=== PATIENT | male | born 1955 | race Caucasian/White ===

== ENCOUNTER 2016-11-04 19:50 | Inpatient (IN) ==
[2016-11-04] MEDS ORDERED: Tdap (ADACEL) Vaccine 0.5 ML IM ONE (20:06)
[2016-11-04] MEDS ORDERED: *HR* OxyCODONE/APAP 5/325 TABLET PO ONE (20:08)
--- NOTE | 2016-11-04 20:09 | Emergency Department Note ---
Disposition Clinical Impression: Right foot infection Disposition: Admitted As Inpatient Condition: Good Referrals: NO,PCP [Non-Partnered Physician] - Forms: Work/School Release, ED Satisfaction Letter Time of Disposition: 21:38 Chest Pain HPI - General Chief Complaint: ED General Medical Stated Complaint: L Rib Pain Time Seen by Provider: 11/04/16 19:52 Source: patient, EMS Mode of arrival: ambulatory Limitations: no limitations Vital Signs Reviewed: Yes Nursing Notes Reviewed: Yes - History of Present Illness HPI Narrative: 61-year-old male with history of diabetes presents with 1 day of left chest wall pain that is worse with motion and palpation of the chest. This is associated with nausea without vomiting, and chills. He states that he ran out of his Percocet yesterday so he has been unable to take that for the pain. He denies any shortness of breath or exertional symptoms. He denies any pleuritic chest pain. He denies any headache, altered mental status, neck pain or stiffness. He does admit to chronic back pain that is poorly controlled at this time due to not having his oxycodone. Severity scale (1-10): 10 - Related Data Home Medications Medication Instructions Recorded Confirmed RX: Aspirin [Adult Low Dose 81 mg PO DAILY 12/11/15 08/05/16 Aspirin EC] RX: Budesonide/Formoterol 160/4.5 2 puff IH BIDR 12/11/15 08/05/16 [Symbicort 160/4.5] RX: Citalopram Hydrobromide 20 mg PO DAILY 12/11/15 08/05/16 [Celexa] RX: Enalapril Maleate [Vasotec] 10 mg PO QPM 12/11/15 08/05/16 RX: Enalapril Maleate [Vasotec] 20 mg PO QAM 12/11/15 08/05/16 RX: Ergocalciferol (VITAMIN D2) 50,000 unit PO QWEEK 12/11/15 08/05/16 [Vitamin D2 (50,000 UNIT)] RX: Furosemide [Lasix] 40 mg PO DAILY 12/11/15 08/05/16 RX: Gabapentin [Neurontin] 600 mg PO TID 12/11/15 08/05/16 RX: Hydrochlorothiazide 25 mg PO DAILY 12/11/15 08/05/16 RX: Hydroxyzine HCl 50 mg PO BID 12/11/15 08/05/16 RX: Insulin ASPART [Novolog] 36 - 38 unit SQ TIDWM 12/11/15 08/05/16 RX: Insulin Glargine,Hum.rec.anlog 80 unit SQ BID 12/11/15 08/05/16 [Lantus Solostar] RX: Meclizine [Antivert] 25 mg PO BID PRN 12/11/15 08/05/16 RX: [place]-3/Dha/Epa/Fish Oil [Fish 1,000 mg PO BID 12/11/15 08/05/[address] 500 mg Softgel] RX: Omeprazole [PriLOSEC] 20 mg PO BIDAC 12/11/15 08/05/16 RX: Ropinirole [Requip] 1 mg PO HS 12/11/15 08/05/16 RX: Rosuvastatin [Crestor] 40 mg PO DAILY 12/11/15 08/05/16 RX: SitaGLIPtin [Januvia] 100 mg PO DAILY 12/11/15 08/05/16 RX: Tiotropium [Spiriva] 18 mcg IH DAILY 12/11/15 08/05/16 RX: Trazodone HCl [TraZODone] 100 mg PO HS 12/11/15 08/05/16 Previous Rx's Medication Instructions Recorded RX: Albuterol Neb [Proventil Neb] 2.5 mg IH Q2H PRN #0 inhsol 12/15/15 RX: Carvedilol [Coreg] 12.5 mg PO BIDWM #0 12/15/15 RX: Oxycodone HCl/Acetaminophen 1 tab PO Q4H PRN #20 tablet 12/15/15 [Percocet 10-325 mg Tablet] RX: Cyclobenzaprine [Flexeril] 10 mg PO TID #14 tablet 03/25/16 RX: Amlodipine [Norvasc] 5 mg PO DAILY #30 tablet 08/08/16 RX: PredniSONE 40 mg PO DAILY #8 tablet 08/08/16 Allergies Allergy/AdvReac Type Severity Reaction Status Date / Time acetaminophen Allergy Hives Verified 12/11/15 11:46 [From Hailee-N] ibuprofen Allergy Hives Verified 12/11/15 11:46 propoxyphene Allergy Hives Verified 12/11/15 11:46 [From Darvocet-N] tramadol [From Ultram] Allergy Hives Verified 12/11/15 11:46 All systems ED: reviewed and negative except as stated. Chest Pain PMH - Past Medical History Medical history: Reports: arthritis, COPD, diabetes, GERD, hyperlipidemia, hypertension, osteoporosis, renal disease, syncope, other Surgical history: Reports: cataract, LE stent(s), orthopedic, other, other Psychiatric history: Reports: anxiety, depression - Social History Smoking Status: Current every day smoker Alcohol use: Reports: none Drug use: Reports: none Physical Exam - Head Head exam: atraumatic, normocephalic, normal inspection - Eye Eye exam: Present: normal appearance, PERRL, EOMI - ENT ENT exam: normal exam, normal oropharynx, mucous membranes moist - Neck Neck exam: Present: normal inspection, full ROM, trachea midline - Chest Flexion is normal without signs of trauma or rash. Pain is reproducible with palpation of the left chest wall. - Respiratory Respiratory exam: Clear to auscultation bilaterally without wheezes rales or rhonchi Cardiovascular Cardiovascular exam: Present: regular rate, normal rhythm, normal heart sounds - Abdominal Exam Abdominal exam: Present: soft, Non-Tender. Absent: tenderness, distention, guarding, rebound, rigidity - Extremities Exam Extremities exam: Present: normal inspection, full ROM. No edema. - Back Exam Back exam: Present: normal inspection, full ROM. Absent: tenderness, CVA tenderness (R), CVA tenderness (L) - Neurological Exam Neurological exam: Present: alert, oriented X3, CN II-XII intact - Psychiatric Psychiatric exam: Present: normal affect, normal mood - Skin Skin exam: Present: warm, dry, intact, normal color - General Limitations: no limitations General appearance: alert, in distress Course - Reevaluation(s) Reevaluation #1: On reevaluation, the patient is feeling much better. His nausea has resolved. His pain is nearly resolved. At this time, I exposed his right foot which has a chronic diabetic foot ulcer which is foul-smelling and has purulent drainage. I will obtain an x-ray. Time: 21:34 Reevaluation #2: Accepted by Dr. Parekh. X ray, CRP, ESR pending. Time: 21:43 Vital Signs Temperature 98.6 F 11/04/16 19:52 Pulse Rate 89 11/04/16 19:52 Respiratory Rate 22 11/04/16 19:52 Blood Pressure 154/93 11/04/16 19:52 O2 Sat by Pulse Oximetry 100 11/04/16 19:52 Temperature 98.6 F 11/04/16 19:52 Pulse Rate 92 11/04/16 20:31 Respiratory Rate 18 11/04/16 20:31 Blood Pressure 165/95 11/04/16 20:31 O2 Sat by Pulse Oximetry 98 11/04/16 20:31 Oxygen Delivery Oxygen Delivery Room Air Chest Pain - Lab Data Result diagrams: 11/04/16 20:21 11/04/16 20:21 Lab Results 11/04/16 11/04/16 11/04/16 Range/Units 20:21 20:21 20:21 WBC 17.0 H (4.3-11.1) K/mcL RBC 3.55 L (4.19-5.50) M/mcL Hgb 9.6 L (12.9-16.9) g/dL Hct 28.6 L (37.5-50.1) % MCV 80.6 L (83.0-100.0) fL MCH 27.0 L (28.0-33.3) pg MCHC 33.6 (31.6-35.5) g/dL RDW 13.9 (11.5-14.5) % Plt Count 949 H (140-400) K/mcL MPV 8.8 L (9.4-12.4) fL Immature Gran % 1.5 (0-4) % Seg Neutrophils % 77.7 % Lymphocytes % 10.8 % Monocytes % 6.7 % Eosinophils % 2.8 % Basophils % 0.5 % Neutrophils # 13.2 H (1.6-8.9) K/mcL Lymphocytes # 1.8 (0.6-4.6) K/mcL Monocytes # 1.1 (0.0-1.3) K/mcL Eosinophils # 0.5 (0.0-0.6) K/mcL Basophils # 0.1 (0.0-0.2) K/mcL Platelet Estimate Marked Increase H (Normal) Immature Plt Fraction 1.7 (1.1-6.1) % Sodium 133 L (136-145) mEq/L Potassium 4.3 (3.5-4.5) mEq/L Chloride 98 (98-109) mEq/L Carbon Dioxide 22 (19-29) mEq/L BUN 20 (8-26) mg/dL Creatinine 1.63 H (0.72-1.25) mg/dL Est GFR ( Amer) 52 L (> 60) Est GFR (Non-Af Amer) 43 L (> 60) BUN/Creatinine Ratio 12 (6-26) Glucose 272 H (70-99) mg/dL Calculated Osmolality 288 (280-300) Calcium 9.0 (8.6-10.8) mg/dL Troponin I 0.00 (0-0.03) ng/mL
--- NOTE | 2016-11-04 20:10 | Emergency Department Note ---
START Narrative - START START: I examined this patient and my medical decision-making was reviewed with the SALESPERSON WIGS/PA/Advanced Practice Nurse/Resident Physician. I agree with the documented findings, disposition and treatment plan as described except to the extent set forth below. ED attending note: I saw this Patient with the emergency medicine resident Dr. Quiroz. Please see a copy of his note for details of the H&P, evaluation, management and disposition of this emergency Department patient. We independently had [id number] contact with the patient. Briefly: A 61-year-old insulin-dependent diabetic normal and OxyContin for his chronic low back pain when out 2 days ago. Normally follows up with Dr. Avitia. Complaints of left-sided rib pain atraumatic has a reddened finger on the left hand that he scratched open days ago. Afebrile stable vital signs in moderate discomfort. Patient worked up for finger infection and possible cardiac chest pain etiology. Provided 35 minutes critical care services to this patient. Labs and imaging pending. Disposition pending.
[2016-11-04 20:36] LABS: Basophils # 0.1 K/mcL (0.0-0.2); Basophils % 0.5 %; Eosinophils # 0.5 K/mcL (0.0-0.6); Eosinophils % 2.8 %; Hematocrit 28.6 % (37.5-50.1); Hemoglobin 9.6 g/dL (12.9-16.9); Immature Granulocytes % 1.5 % (0-4); Immature Platelets 1.7 % (1.1-6.1); Lymphocytes # 1.8 K/mcL (0.6-4.6); Lymphocytes % 10.8 %; Mean Corpuscular HGB Conc 33.6 g/dL (31.6-35.5); Mean Corpuscular Volume 80.6 fL (83.0-100.0); Mean Platelet Volume 8.8 fL (9.4-12.4); Monocytes # 1.1 K/mcL (0.0-1.3); Monocytes % 6.7 %; Neutrophils # 13.2 K/mcL (1.6-8.9); Platelet Count 949 K/mcL (140-400); Red Blood Count 3.55 M/mcL (4.19-5.50); Red Cell Distribution Width 13.9 % (11.5-14.5); Segmented Neutrophils % 77.7 %
[2016-11-04 20:49] LABS: Potassium 4.3 mEq/L (3.5-4.5)
[2016-11-04 20:53] LABS: Platelet Estimate Marked Increase (Normal)
[2016-11-04] MEDS ORDERED: Piperacillin/Tazobactam 4.5 GM in D5% in Water (Mini-Bag+) 100 ML IVPB ONE (21:34)
[2016-11-04] MEDS ORDERED: Vancomycin 1,500 MG in D5% in Water 250 ML IVPB SCH (22:00)
--- NOTE | 2016-11-04 23:49 | Internal Med History&Physical ---
Date of Encounter: 11/05/16 Time of Encounter: 23:30 Assessment and Plan (1) Right foot infection Current visit: Yes Status: Acute Patient has extensive history of diabetic neuropathy with history of uncontrolled DM. He states that he has not checked his blood sugars in about a week. Patient has a history of non compliance with going to Podiatry appointments. He states he had an appointment with Dr. Pace on Saturday which he missed. Has history of right third toe amputation. Patient's right fifth metatarsal is erythematous, swollen, has foul odor, and painful to pressure. Patient's right foot xray showed large soft tissue defect adjacent tot he fifth metatarsophalangeal joint, osteomyelitis cannot be ruled out. Consult to podiatry for recommendations- patient NPO Patient does not currently appear septic- continue to monitor. Check lactate with am labs Blood cultures x2 collected. IV fluids Empiric coverage with vancomycin and zosyn. pain control (2) Rib pain on left side Current visit: Yes Status: Acute Patient is on pain medications at home for chronic back pain. He reports left lower rib pain that is tender to palpation with guarding. CXR showed no acute focal or bony abnormality. Continue to monitor. Pain control. (3) Reactive thrombocytosis Current visit: Yes Status: Acute Patient's baseline platelet count is normal. Today, it was measured at 949 Etiology unclear at this time, but likely reactive thrombocytosis secondary to toe infection. Patient currently does not meet sepsis criteria. Will check lactate with am labs. (4) DANY (acute kidney injury) Current visit: No Status: Acute Patient likely has diabetic nephropathy. His baseline Cr is about 1.6 IVF hold lasix, HCTZ, Enalapril Avoid nephrotoxic agents. Continue to monitor. (5) Poorly controlled diabetes mellitus Current visit: No Status: Chronic Patient counseled on importance of lifestyle modification and diabetes control. Consult to metal flooring installer. Hold oral meds. NPO in case of surgery tomorrow. Medium dose sliding scale insulin with Q4HR accuchecks. (6) Diabetic peripheral neuropathy Current visit: No Status: Chronic Plan as above. Consult to podiatry. (7) Obesity (BMI 30.0-34.9) Current visit: No Status: Chronic consult to metal flooring installer Plan as above. (8) Tobacco abuse Current visit: No Status: Chronic Nicotine patch PRN. Patient counseled on importance of smoking cessation. (9) DVT prophylaxis Current visit: No Status: Acute Heparin 5,000 units SQ Q12HR Internal Medicine - H&P: HPI Chief complaint: left lower rib pain Admitted From: Home Plans for Post Hospital Care: Home History of present illness: Mr. Regalado is a 61 year old male with PMHx of HTN, Hep C, DM, HLD, depression, diabetic neuropathy, chronic back pain. He came to the emergency department with CC of left lower rib pain. When asked if the patient fell or had any recent injuries, he states "I don't know." Patient has a history of diabetes with diabetic neuropathy. He states he usually checks his sugars about three times a day, but has not checked them in the past week. He does not appear to be compliant with his diabetes management. Patient normally sees Dr. Pace for his foot ulcers. He has a history of a right third metatarsal amputation. He has a right 5th metatarsal ulcer with swelling and erythema. Patient had an appointment to see Dr. Pace this past Saturday, but did not go to his appointment because he could not get a ride. He states that he was supposed to be evaluated for right foot surgery at this appointment as well. Patient had one episode of non bloody emesis that was yellow. He denies currently being nauseous. Denies Chest pain, SOB, denies syncope. Social Hx: lives with niece and nephew. Has smoked about 1PPD for the past 50 years. Drinks occasionally, denies illicit drug use. Family Hx: Mom at 66 from [place], dad at 70 from [place]. Past Med Surg Social Fam HX - Past Medical History Medical history: arthritis, COPD, diabetes, GERD, hyperlipidemia, hypertension, osteoporosis, renal disease, syncope, other Psychiatric history: anxiety, depression - Past Surgical History Surgical History: cataract, LE stent(s), orthopedic, other, other - Social History Smoking Status: Current every day smoker Smokeless Tobacco Status: No Alcohol use: none Drug use: none - Family History Mother Living Status: Hx Family Cardiac Disorders: Yes (htn) Hx Family Respiratory Disorders: No Hx Family Cancer: Yes Hx Family Endocrine Disorder: Yes (dm) Father Living Status: Internal Medicine - H&P: Meds Aspirin [Adult Low Dose Aspirin EC] 81 mg PO DAILY 12/11/15 [History] Budesonide/Formoterol 160/4.5 [Symbicort 160/4.5] 2 puff IH BIDR 12/11/15 [ History] Citalopram Hydrobromide [Celexa] 20 mg PO DAILY 12/11/15 [History] Enalapril Maleate [Vasotec] 10 mg PO QPM 12/11/15 [History] Enalapril Maleate [Vasotec] 20 mg PO QAM 12/11/15 [History] Ergocalciferol (VITAMIN D2) [Vitamin D2 (50,000 UNIT)] 50,000 unit PO QWEEK 03/22 [History] Furosemide [Lasix] 40 mg PO DAILY 12/11/15 [History] Gabapentin [Neurontin] 600 mg PO TID 12/11/15 [History] Hydrochlorothiazide 25 mg PO DAILY 12/11/15 [History] Hydroxyzine HCl 50 mg PO BID 12/11/15 [History] Insulin ASPART [Novolog] 36 - 38 unit SQ TIDWM 12/11/15 [History] Insulin Glargine,Hum.rec.anlog [Lantus Solostar] 80 unit SQ BID 12/11/15 [ History] Meclizine [Antivert] 25 mg PO BID PRN 12/11/15 [History] [place]-3/Dha/Epa/Fish Oil [Fish Oil Dr 500 mg Softgel] 1,000 mg PO BID 12/11/15 [ History] Omeprazole [PriLOSEC] 20 mg PO BIDAC 12/11/15 [History] Ropinirole [Requip] 1 mg PO HS 12/11/15 [History] Rosuvastatin [Crestor] 40 mg PO DAILY 12/11/15 [History] SitaGLIPtin [Januvia] 100 mg PO DAILY 12/11/15 [History] Tiotropium [Spiriva] 18 mcg IH DAILY 12/11/15 [History] Trazodone HCl [TraZODone] 100 mg PO HS 12/11/15 [History] Albuterol Neb [Proventil Neb] 2.5 mg IH Q2H PRN #0 inhsol 12/15/15 [Rx] Carvedilol [Coreg] 12.5 mg PO BIDWM #0 12/15/15 [Rx] Oxycodone HCl/Acetaminophen [Percocet 10-325 mg Tablet] 1 tab PO Q4H PRN #20 tablet 12/15/15 [Rx] Cyclobenzaprine [Flexeril] 10 mg PO TID #14 tablet 03/25/16 [Rx] Amlodipine [Norvasc] 5 mg PO DAILY #30 tablet 08/08/16 [Rx] PredniSONE 40 mg PO DAILY #8 tablet 08/08/16 [Rx] Allergies acetaminophen [From Darvocet-N] Allergy (Verified 12/11/15 11:46) Hives ibuprofen Allergy (Verified 12/11/15 11:46) Hives propoxyphene [From Darvocet-N] Allergy (Verified 12/11/15 11:46) Hives tramadol [From Ultram] Allergy (Verified 12/11/15 11:46) Hives All Systems PM: A 10-system review of systems was performed and is negative for pertinent findings except as documented above in the HPI. - Constitutional Constitutional: no chills, no fatigue, no fever(s) - EENT Eyes: no blurry vision - Cardiovascular Cardiovascular ROS IM: no chest pain - Gastrointestinal Gastrointestinal: vomiting, no bloating, no change in bowel habits, no nausea - Genitourinary Genitourinary ROS male: no dysuria - Neurological Neurological ROS: no dizziness - Constitutional Vitals: Temp Pulse Resp BP Pulse Ox 98.6 F 76 16 132/69 94 L 11/04/16 19:52 11/04/16 23:08 11/04/16 23:08 11/04/16 23:08 11/04/16 23:08 General appearance: Present: disheveled, A&O X 3, obese - Head Head exam: Present: atraumatic, normocephalic - Neck Neck exam general surgery: Present: supple, trachea midline - Respiratory Respiratory exam: Present: CTAB. Absent: wheezes - Cardiovascular Cardiovascular exam: Present: RRR, +S1, +S2 - GI/Abdominal GI/Abdominal exam: Present: firm, normal bowel sounds, tenderness (tenderness to palpation in LLQ and LUQ), no peritoneal signs - Extremities Exam Extremities exam: Absent: cyanotic, pedal edema Additional comments: right third toe has been amputated. Right fifth toe is erythematous, swollen, peeling, with ulcer present. Pain with pressure. Left lateral foot is peeling, with ulcer present. Left third finger is swollen, red, non painful. - Neurological Exam Neurological exam: Present: alert, oriented X3 Internal Med - H&P Results - Labs CBC & Chem 7: 11/04/16 20:21 11/04/16 20:21 Labs: Short CBC 11/04/16 Range/Units 20:21 WBC 17.0 H (4.3-11.1) K/mcL Hgb 9.6 L (12.9-16.9) g/dL Hct 28.6 L (37.5-50.1) % Plt Count 949 H (140-400) K/mcL Neutrophils # 13.2 H (1.6-8.9) K/mcL BMP 11/04/16 20:21 Sodium 133 L Potassium 4.3 Chloride 98 Carbon Dioxide 22 BUN 20 Creatinine 1.63 H Glucose 272 H Calcium 9.0 Cardiac Enzymes 11/04/16 Range/Units 20:21 Troponin I 0.00 (0-0.03) ng/mL - Impressions ITS Impressions Chest X-Ray 11/04/16 20:07 IMPRESSION: Negative portable study. D/ / Tracy Hopkins Cha, MD / Tracy Hopkins Cha, MD Interpreting Provider: Tracy Hopkins Cha, MD Foot X-Ray 11/04/16 21:33 IMPRESSION: Soft tissue swelling surrounding the right great toe. No destructive right great toe process identified. Deformity of the distal 2nd metatarsal likely related to prior remote trauma. Large soft tissue defect of the left lateral distal foot at the level of the 5th metatarsophalangeal joint which demonstrates medial subluxation. There is cortical disruption suspected of the lateral cortex of the 5th metatarsal head. Correlation for fracture or osteomyelitis recommended. MRI may be helpful if indicated D/ / Tracy Hopkins Cha, MD / Tracy Hopkins Cha, MD Interpreting Provider: Tracy Hopkins Cha, MD
[2016-11-05] MEDS ORDERED: OxyCODONE CONC 5 MG/0.25 ML ORAL.SYG PO PRN (00:38)
[2016-11-05] MEDS ORDERED: Naloxone 0.4 MG/ML INJ IVP PRN (00:40)
[2016-11-05] MEDS ORDERED: Acetaminophen 325 MG TABLET PO PRN (00:40)
[2016-11-05] MEDS ORDERED: Ondansetron 4 MG/2 ML VIAL IVP PRN (00:40)
[2016-11-05] MEDS ORDERED: *HR* Dextrose 50 % in Water (Syg) 50 ML SYRINGE IVP PRN ×3 (00:57→06:23)
[2016-11-05] MEDS ORDERED: Dextrose Gel 15 GM PO PRN ×6 (00:57→06:23)
[2016-11-05] MEDS ORDERED: D5% in Water 1,000 ML IV PRN ×3 (00:57→06:23)
[2016-11-05] MEDS ORDERED: Vancomycin 1,750 MG in D5% in Water 250 ML IVPB SCH (01:00)
[2016-11-05] MEDS: *HR* Morphine 2 MG/ML SYRINGE IVP PRN ×3 (01:36→14:06)
[2016-11-05 01:54] LABS: Basophils # 0.1 K/mcL (0.0-0.2); Basophils % 0.5 %; Eosinophils # 0.5 K/mcL (0.0-0.6); Eosinophils % 3.3 %; Hematocrit 26.9 % (37.5-50.1); Hemoglobin 8.9 g/dL (12.9-16.9); Immature Granulocytes % 1.4 % (0-4); Immature Platelets 1.8 % (1.1-6.1); Lymphocytes # 2.3 K/mcL (0.6-4.6); Lymphocytes % 14.3 %; Mean Corpuscular HGB Conc 33.1 g/dL (31.6-35.5); Mean Corpuscular Hemoglobin 26.9 pg (28.0-33.3); Mean Corpuscular Volume 81.3 fL (83.0-100.0); Mean Platelet Volume 8.8 fL (9.4-12.4); Monocytes # 1.2 K/mcL (0.0-1.3); Monocytes % 7.5 %; Neutrophils # 11.9 K/mcL (1.6-8.9); Platelet Count 878 K/mcL (140-400); Red Blood Count 3.31 M/mcL (4.19-5.50); Red Cell Distribution Width 13.8 % (11.5-14.5)
[2016-11-05 02:06] LABS: Calcium 8.9 mg/dL (8.6-10.8); Potassium 3.9 mEq/L (3.5-4.5)
[2016-11-05] MEDS ORDERED: Insulin LISPRO 300 UNITS/3 ML VIAL SQ SCH (04:00)
[2016-11-05] MEDS: 0.9 % Sodium Chloride 1,000 ML IVC SCH ×2 (04:20→17:49)
[2016-11-05] MEDS: *HR* Heparin 5,000 UNIT/ML VIAL SQ SCH ×2 (05:25→16:59)
[2016-11-05] MEDS: Insulin LISPRO 300 UNITS/3 ML VIAL SQ SCH ×5 (07:39→23:51)
--- NOTE | 2016-11-05 07:45 | Podiatry Consult Note ---
Date of Encounter: 11/05/16 Time of Encounter: 07:00 Assessment and Plan (1) Osteomyelitis Current visit: Yes Status: Acute 1. Full thickness ulceration to right foot at 5th metatarsal head with positive to probe to bone consistent with osteomyelitis. WBC: 16.3, ESR: 86, CRP : 257, Temp: 100.5. 2. Dr. Pace to take patient to surgery later on today (11/05/16) for a debridement. 3. Keep patient NPO. 4. Agree with present antibiotic therapy. 5. ABIs ordred of BLE. Qualifiers: Osteomyelitis location: foot Laterality: right Chronicity: acute Qualified Code(s): M86.171 - Other acute osteomyelitis, right ankle and foot (2) Renal failure Current visit: No Status: Acute (3) Peripheral vascular disease due to secondary diabetes Current visit: No Status: Acute 1. Unable to to palpate pedal pulses. ABIs ordered and pending. Underwent revascularizaiton in [place] this past year. (4) Foot ulcer Current visit: No Status: Chronic 1. Sharp debridement of all hyperkeratotic tissue to 5th metatarsal head left foot plantar aspect, superficial ulceration no clinical evidence of infection. 2. Wound care orders to include cleansing ulcer of left foot daily with mild soap and water, pat dry, apply dry sterile 4x4 gauze with kerlix. Qualifiers: Laterality: right Non-pressure ulcer stage: with fat layer exposed Qualified Code(s): L97.512 - Non-pressure chronic ulcer of other part of right foot with fat layer exposed (5) Diabetes mellitus with neuropathy Current visit: Yes Status: Acute Qualifiers: Diabetes mellitus type: type 2 Diabetes mellitus retirement insulin use: unspecified retirement insulin use status Qualified Code(s): E11.40 - Type 2 diabetes mellitus with diabetic neuropathy, unspecified History of Present Illness HPI: Mr. Regalado is a 61 year old male admitted to [facility] on 11/05/16 for cellulitis of the right foot. Patient has a medical history significant for DM with neuropathy, COPD, GERD, hyperlipidemia, HTN, arthritis and renal disease. Patient states he has had an ulcer to the right foot for approximately 3 months now. He states he is being managed in wound care by Dr. Pace. He states he was in a cast every week for two months and was recently switched to twice weekly dressing changes in wound care. Patient states he had an appointment in wound care with Dr. Pace this last week but missed it. He states he was told there is a wound to his left foot, he is not sure when that started and did not know about it until his arrival to the hospital. Patient is neuropathic. He admits to nausea and states he has not been feeling well. He states he has left sided rib pain. Patient states he had toe #3 of the left foot amputated two years ago. Patient underwent revascularization in [place] this past year. Past Med Surg Social Fam HX - Past Medical History Medical history: arthritis, COPD, diabetes, GERD, hyperlipidemia, hypertension, osteoporosis, renal disease, syncope, other Psychiatric history: anxiety, depression - Past Surgical History Surgical History: cataract, LE stent(s), orthopedic, other, other - Social History Smoking Status: Current every day smoker Smokeless Tobacco Status: No Alcohol use: none Drug use: none - Family History Mother Living Status: Hx Family Cardiac Disorders: Yes (htn) Hx Family Respiratory Disorders: No Hx Family Cancer: Yes Hx Family Endocrine Disorder: Yes (dm) Hx Family Medical Disorders: Yes Father Living Status: Medications and Allergies Aspirin [Adult Low Dose Aspirin EC] 81 mg PO DAILY 12/11/15 [History] Budesonide/Formoterol 160/4.5 [Symbicort 160/4.5] 2 puff IH BIDR 12/11/15 [ History] Citalopram Hydrobromide [Celexa] 20 mg PO DAILY 12/11/15 [History] Enalapril Maleate [Vasotec] 10 mg PO QPM 12/11/15 [History] Enalapril Maleate [Vasotec] 20 mg PO QAM 12/11/15 [History] Ergocalciferol (VITAMIN D2) [Vitamin D2 (50,000 UNIT)] 50,000 unit PO QWEEK 03/22 [History] Furosemide [Lasix] 40 mg PO DAILY 12/11/15 [History] Gabapentin [Neurontin] 600 mg PO TID 12/11/15 [History] Hydrochlorothiazide 25 mg PO DAILY 12/11/15 [History] Hydroxyzine HCl 50 mg PO BID 12/11/15 [History] Insulin ASPART [Novolog] 36 - 38 unit SQ TIDWM 12/11/15 [History] Insulin Glargine,Hum.rec.anlog [Lantus Solostar] 80 unit SQ BID 12/11/15 [ History] Meclizine [Antivert] 25 mg PO BID PRN 12/11/15 [History] [place]-3/Dha/Epa/Fish Oil [Fish Oil Dr 500 mg Softgel] 1,000 mg PO BID 12/11/15 [ History] Omeprazole [PriLOSEC] 20 mg PO BIDAC 12/11/15 [History] Ropinirole [Requip] 1 mg PO HS 12/11/15 [History] Rosuvastatin [Crestor] 40 mg PO DAILY 12/11/15 [History] SitaGLIPtin [Januvia] 100 mg PO DAILY 12/11/15 [History] Tiotropium [Spiriva] 18 mcg IH DAILY 12/11/15 [History] Trazodone HCl [TraZODone] 100 mg PO HS 12/11/15 [History] Albuterol Neb [Proventil Neb] 2.5 mg IH Q2H PRN #0 inhsol 12/15/15 [Rx] Carvedilol [Coreg] 12.5 mg PO BIDWM #0 12/15/15 [Rx] Oxycodone HCl/Acetaminophen [Percocet 10-325 mg Tablet] 1 tab PO Q4H PRN #20 tablet 12/15/15 [Rx] Cyclobenzaprine [Flexeril] 10 mg PO TID #14 tablet 03/25/16 [Rx] Amlodipine [Norvasc] 5 mg PO DAILY #30 tablet 08/08/16 [Rx] PredniSONE 40 mg PO DAILY #8 tablet 08/08/16 [Rx] Allergies acetaminophen [From Darvocet-N] Allergy (Verified 12/11/15 11:46) Hives ibuprofen Allergy (Verified 12/11/15 11:46) Hives propoxyphene [From Darvocet-N] Allergy (Verified 12/11/15 11:46) Hives tramadol [From Ultram] Allergy (Verified 12/11/15 11:46) Hives All Systems Reviewed: A 10-system review of systems was performed and is negative for pertinent findings except as documented above in the HPI. Physical Exam - Constitutional Vitals: Temp Pulse Resp BP Pulse Ox 100.5 F H 82 20 136/70 96 11/05/16 06:34 11/05/16 06:34 11/05/16 06:34 11/05/16 06:34 11/05/16 06:34 Exam: General appearance: alert awake oriented X 3. Calm and pleasant, no acute distress.. Vascular: Pedal pulses 0/4 DP/PT , No evidence of cyanosis, pallor or rubor, Edema graded at 1+/4, Skin Temperature warm, No calf pain with manual compression. capillary refill time is immediate to digits. Neurologic: Sensation absent with light touch to both feet . Ulcer: 1. Full thickness ulcer to the right foot at the fifth metatarsal head plantar aspect measuring 1.8 cm in length by 3 cm is in width by 0.5 cm in depth, positive probe to bone with bone exposed, malodorous, periwound erythema extending to the dorsum midfoot. Necrotic skin to the dorsal aspect of toe #5 right foot and at the base of the fifth toe with erythema and edema. 2. Large hemorrhaged callus lesion to the left foot at the fifth metatarsal head plantar aspect. s/p sharp cutting with a #15 scalpel blade revealed a superficial ulceration measuring 1.8 cm in length x 1.8 cm in width. No probe to bone, no pus, no odor, no streaking, no fluctuance. Results - Labs Result Diagrams: 11/05/16 01:37 11/05/16 01:37 Labs: Abnormal lab results WBC 16.3 K/mcL (4.3-11.1) H 11/05/16 01:37 RBC 3.31 M/mcL (4.19-5.50) L 11/05/16 01:37 Hgb 8.9 g/dL (12.9-16.9) L 11/05/16 01:37 Hct 26.9 % (37.5-50.1) L 11/05/16 01:37 MCV 81.3 fL (83.0-100.0) L 11/05/16 01:37 MCH 26.9 pg (28.0-33.3) L 11/05/16 01:37 Plt Count 878 K/mcL (140-400) H 11/05/16 01:37 MPV 8.8 fL (9.4-12.4) L 11/05/16 01:37 Neutrophils # 11.9 K/mcL (1.6-8.9) H 11/05/16 01:37 Platelet Estimate Marked Increase (Normal) H 11/04/16 20:21 ESR 86 mm/hr (0-10) H 11/04/16 20:24 Sodium 134 mEq/L (136-145) L 11/05/16 01:37 Creatinine 1.99 mg/dL (0.72-1.25) H 11/05/16 01:37 Est GFR ( Amer) 42 (> 60) L 11/05/16 01:37 Est GFR (Non-Af Amer) 34 (> 60) L 11/05/16 01:37 Glucose 237 mg/dL (70-99) H 11/05/16 01:37 C-Reactive Protein 257 mg/L (Less than 5) H 11/04/16 20:21 All other labs normal. Consult Discharge Plan - Plan Referrals: Mark Coe MD [Primary Care Provider] -
[2016-11-05] MEDS: Nicotine 21 MG PATCH.TD24 TD SCH (08:55)
[2016-11-05] MEDS: Pantoprazole 40 MG VIAL IVP SCH (08:55)
[2016-11-05] MEDS: Piperacillin/Tazobactam 3.375 GM in D5% in Water (Mini-Bag+) 100 ML IVPB SCH ×3 (08:57→23:49)
[2016-11-05] MEDS: *HR* OxyCODONE Immed Rel 5 MG TABLET PO PRN ×2 (09:11→17:28)
[2016-11-05] MEDS ORDERED: Vancomycin 1,500 MG in D5% in Water 250 ML IVPB SCH (12:00)
[2016-11-05] MEDS: Vancomycin 1,500 MG in D5% in Water 250 ML IVPB SCH (12:13)
--- NOTE | 2016-11-05 12:28 | Orthopedic Consult Note ---
Date of Encounter: 11/06/16 Time of Encounter: 12:15 Assessment and Plan (1) Cellulitis of finger of left hand Current Visit: Yes Status: Acute Currently on vancomycin and zosyn for the feet osteomyelitis and podiatry taking patient to surgery today for wound debridements. Will continue these abx with watchful waiting for the finger. If does not improve with abx then will consider surgical intervention. Continue to keep wound clean and covered. Continue finger ROM. Continue elevation. Continue pain control per hospitalist. History of Present Illness Chief complaint: left long finger pain HPI: Mr. Regalado is a 61 year old male who was admitted for rib pain was also found to have diabetic foot wounds and left long finger infection. He states he noticed the finger to be red and swollen starting 2-3 days ago when he woke up like that. Denies any known injury or trauma to cause this. Denies any drainage from the finger. States this has not happened before to his fingers but he has known wounds to feet. He has uncontrolled diabetes and is not compliant with management. He is here for rib pain but denies chest pain, SOB, fevers. Past Med Surg Social Fam HX - Past Medical History Medical history: arthritis, COPD, diabetes, GERD, hyperlipidemia, hypertension, osteoporosis, renal disease, syncope, other Psychiatric history: anxiety, depression - Past Surgical History Surgical History: cataract, LE stent(s), orthopedic, other, other - Social History Smoking Status: Current every day smoker Smokeless Tobacco Status: No Alcohol use: none Drug use: none - Family History Mother Living Status: Hx Family Cardiac Disorders: Yes (htn) Hx Family Respiratory Disorders: No Hx Family Cancer: Yes Hx Family Endocrine Disorder: Yes (dm) Hx Family Medical Disorders: Yes Father Living Status: Medications and Allergies Aspirin [Adult Low Dose Aspirin EC] 81 mg PO DAILY 12/11/15 [History] Budesonide/Formoterol 160/4.5 [Symbicort 160/4.5] 2 puff IH BIDR 12/11/15 [ History] Citalopram Hydrobromide [Celexa] 20 mg PO DAILY 12/11/15 [History] Enalapril Maleate [Vasotec] 10 mg PO QPM 12/11/15 [History] Enalapril Maleate [Vasotec] 20 mg PO QAM 12/11/15 [History] Ergocalciferol (VITAMIN D2) [Vitamin D2 (50,000 UNIT)] 50,000 unit PO MÁRQUEZ [History] Furosemide [Lasix] 40 mg PO DAILY 12/11/15 [History] Gabapentin [Neurontin] 600 mg PO TID 12/11/15 [History] Hydrochlorothiazide 25 mg PO DAILY 12/11/15 [History] Hydroxyzine HCl 50 mg PO BID 12/11/15 [History] Insulin ASPART [Novolog] 36 - 38 unit SQ TIDWM 12/11/15 [History] Insulin Glargine,Hum.rec.anlog [Lantus Solostar] 80 unit SQ BID 12/11/15 [ History] Meclizine [Antivert] 25 mg PO BID PRN 12/11/15 [History] Omeprazole [PriLOSEC] 20 mg PO BIDAC 12/11/15 [History] Ropinirole [Requip] 1 mg PO HS 12/11/15 [History] Rosuvastatin [Crestor] 40 mg PO DAILY 12/11/15 [History] SitaGLIPtin [Januvia] 100 mg PO DAILY 12/11/15 [History] Tiotropium [Spiriva] 18 mcg IH DAILY 12/11/15 [History] Trazodone HCl [TraZODone] 100 mg PO HS 12/11/15 [History] Albuterol Neb [Proventil Neb] 2.5 mg IH Q2H PRN #0 inhsol 12/15/15 [Rx] Carvedilol [Coreg] 12.5 mg PO BIDWM #0 12/15/15 [Rx] Oxycodone HCl/Acetaminophen [Percocet 10-325 mg Tablet] 1 tab PO Q4H PRN #20 tablet 12/15/15 [Rx] Cyclobenzaprine [Flexeril] 10 mg PO TID #14 tablet 03/25/16 [Rx] Amlodipine [Norvasc] 5 mg PO DAILY #30 tablet 08/08/16 [Rx] PredniSONE 40 mg PO DAILY #8 tablet 08/08/16 [Rx] Allergies acetaminophen [From Darvocet-N] Allergy (Verified 12/11/15 11:46) Hives ibuprofen Allergy (Verified 12/11/15 11:46) Hives propoxyphene [From Darvocet-N] Allergy (Verified 12/11/15 11:46) Hives tramadol [From Ultram] Allergy (Verified 12/11/15 11:46) Hives All Systems Reviewed: A 10-system review of systems was performed and is negative for pertinent findings except as documented above in the HPI. - Constitutional Constitutional: as per HPI - Cardiovascular Cardiovascular: as per HPI - Respiratory Respiratory: as per HPI - Musculoskeletal Musculoskeletal: as per HPI Physical Exam - Constitutional Vitals: Temp Pulse Resp BP Pulse Ox 99.2 F 77 20 122/73 98 11/05/16 10:47 11/05/16 10:47 11/05/16 10:47 11/05/16 10:47 11/05/16 10:47 - Wrist & Hand left Location of pain: long finger (erythema to dorsal long finger with dry skin and scabbing noted to ulnar side of finger, swelling focused around PIPJ, no active drainage. no tenderness to palpation along tendon sheath. Unable to fully extend any of his fingers, flexion of LF to roughly 45 degrees. Noted to have Dupuytrens contracture cord to 4th and 5th digits limiting motion. NV intact with brisk cap refill. ) Results - Labs Result Diagrams: 11/06/16 04:53 11/06/16 05:57 Labs: Abnormal lab results WBC 16.3 K/mcL (4.3-11.1) H 11/05/16 01:37 RBC 3.31 M/mcL (4.19-5.50) L 11/05/16 01:37 Hgb 8.9 g/dL (12.9-16.9) L 11/05/16 01:37 Hct 26.9 % (37.5-50.1) L 11/05/16 01:37 MCV 81.3 fL (83.0-100.0) L 11/05/16 01:37 MCH 26.9 pg (28.0-33.3) L 11/05/16 01:37 Plt Count 878 K/mcL (140-400) H 11/05/16 01:37 MPV 8.8 fL (9.4-12.4) L 11/05/16 01:37 Neutrophils # 11.9 K/mcL (1.6-8.9) H 11/05/16 01:37 Platelet Estimate Marked Increase (Normal) H 11/04/16 20:21 ESR 86 mm/hr (0-10) H 11/04/16 20:24 Sodium 134 mEq/L (136-145) L 11/05/16 01:37 Creatinine 1.99 mg/dL (0.72-1.25) H 11/05/16 01:37 Est GFR ( Amer) 42 (> 60) L 11/05/16 01:37 Est GFR (Non-Af Amer) 34 (> 60) L 11/05/16 01:37 Glucose 237 mg/dL (70-99) H 11/05/16 01:37 POC Glucose 101 (58-89) H 11/05/16 07:03 C-Reactive Protein 257 mg/L (Less than 5) H 11/04/16 20:21 All other labs normal. - Diagnostic results Wrist/Hand x-ray: report reviewed, image reviewed Consult Discharge Plan - Plan Referrals: Mark Coe MD [Primary Care Provider] - - Attending Attestation Case and plan of care discussed with supervising physician who was available for all aspects of care.
--- NOTE | 2016-11-05 13:22 | Internal Med Progress Note ---
Date of Encounter: 11/05/16 Time of Encounter: 08:15 - Assessment and plan (1) Diabetic ulcer of both feet associated with type 2 diabetes mellitus Current Visit: Yes Status: Acute (2) Osteomyelitis Current Visit: Yes Status: Suspected Qualifiers: Osteomyelitis location: foot Laterality: right Chronicity: acute Qualified Code(s): M86.171 - Other acute osteomyelitis, right ankle and foot (3) Diabetes mellitus with neuropathy Current Visit: Yes Status: Chronic Qualifiers: Diabetes mellitus type: type 2 Diabetes mellitus custodial insulin use: with buttermaker use Qualified Code(s): E11.40 - Type 2 diabetes mellitus with diabetic neuropathy, unspecified; Z79.4 - skilled nursing (current) use of insulin (4) Peripheral vascular disease Current Visit: Yes Status: Chronic (5) CKD (chronic kidney disease) stage 3, GFR 30-59 ml/min Current Visit: Yes Status: Chronic (6) Cellulitis of finger of left hand Current Visit: Yes Status: Acute (7) COPD (chronic obstructive pulmonary disease) Current Visit: No Status: Chronic Qualifiers: COPD type: unspecified COPD Qualified Code(s): J44.9 - Chronic obstructive pulmonary disease, unspecified (8) Hypertension Current Visit: No Status: Chronic Qualifiers: Hypertension type: essential hypertension Qualified Code(s): I10 - Essential (primary) hypertension (9) Tobacco abuse Current Visit: No Status: Chronic - Subjective Interval history: Mr. Regalado is currently admitted for bilateral foot wound infections and cellulitis of L middle finger. He is high risk due to potential of worsening infection, need for IV abx and monitoring and uncontrolled DM Mr. Regalado is having a lot of pain in his L ribs from the fall last night. Feet wrapped in dressings. Podiatry debridement at bedside and plan for OR. Also has swelling and erythema of L middle finger. Denies injury. Pain meds somewhat helpful at this time. No GI symptoms. Hungry. - Constitutional Vitals: Temp Pulse Resp BP Pulse Ox 98.5 F 74 18 122/73 95 11/05/16 12:27 11/05/16 12:27 11/05/16 12:27 11/05/16 10:47 11/05/16 12:27 General appearance: Present: disheveled, A&O X 3, obese - Head Head exam: Present: normocephalic - Eye Eye exam: Present: conjuntiva pink - ENT ENT exam: Present: mucous membranes dry - Respiratory Respiratory exam: Present: decreased breath sounds, rhonchi - Cardiovascular Cardiovascular exam: Present: RRR. Absent: tachycardia - GI/Abdominal GI/Abdominal exam: Present: soft. Absent: tenderness - Extremities Exam Extremities exam: Present: warm Additional comments: Dressings on both feet. L middle finger with swelling and erythema. - Neurological Exam Neurological exam: Present: alert, oriented X3 - Skin Skin exam: Present: dry, warm Internal Medicine: Result - Labs CBC & Chem 7: 11/05/16 01:37 11/05/16 01:37 - Impressions Impressions Hand X-Ray 11/05/16 08:36 IMPRESSION: 1. Diffuse soft tissue swelling of 3rd digit without acute osseous abnormality. 2. Deformities of the 4th and 5th digits with persistent flexion of the PIP joints and hyperextension of the 4th DIP joint. 3. Questionable erosion at the DIP joint of the 2nd digit. D/ / 11/05/2016 09:20:02 Emelia Solis MD / adonis Interpreting Provider: Emelia Solis MD Consult Discharge Plan - Plan Referrals: Mark Coe MD [Primary Care Provider] -
[2016-11-05] MEDS ORDERED: Albuterol 2.5 MG/3 ML NEBULIZER IH PRN (15:03)
[2016-11-05] MEDS: Budesonide/Formoterol 160/4.5 MDI IH SCH ×2 (15:48→20:27)
--- NOTE | 2016-11-05 16:12 | Electrocardiograph Report ---
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
[2016-11-05] MEDS: Cholecalciferol (D-3) 1,000 UNIT TABLET PO SCH (17:00)
[2016-11-05] MEDS: Hydrocortisone Sodium Succ 100 MG/2 ML VIAL IVP SCH ×2 (17:22→23:50)
--- NOTE | 2016-11-05 18:36 | Anesthesia Evaluation PreOp ---
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 (Peripheral Neuropathy, Anxiety/deression) Other Medical History: Renal (A), Diabetes Type II, GERD, Other (Reactive Thrombocytosis) Alcohol Use: none Drug use: none Medications and Allergies Aspirin [Adult Low Dose Aspirin EC] 81 mg PO DAILY 12/11/15 [History] Budesonide/Formoterol 160/4.5 [Symbicort 160/4.5] 2 puff IH BIDR 12/11/15 [ History] Citalopram Hydrobromide [Celexa] 20 mg PO DAILY 12/11/15 [History] Enalapril Maleate [Vasotec] 10 mg PO QPM 12/11/15 [History] Enalapril Maleate [Vasotec] 20 mg PO QAM 12/11/15 [History] Ergocalciferol (VITAMIN D2) [Vitamin D2 (50,000 UNIT)] 50,000 unit PO MÁRQUEZ [History] Furosemide [Lasix] 40 mg PO DAILY 12/11/15 [History] Gabapentin [Neurontin] 600 mg PO TID 12/11/15 [History] Hydrochlorothiazide 25 mg PO DAILY 12/11/15 [History] Hydroxyzine HCl 50 mg PO BID 12/11/15 [History] Insulin ASPART [Novolog] 36 - 38 unit SQ TIDWM 12/11/15 [History] Insulin Glargine,Hum.rec.anlog [Lantus Solostar] 80 unit SQ BID 12/11/15 [ History] Meclizine [Antivert] 25 mg PO BID PRN 12/11/15 [History] Omeprazole [PriLOSEC] 20 mg PO BIDAC 12/11/15 [History] Ropinirole [Requip] 1 mg PO HS 12/11/15 [History] Rosuvastatin [Crestor] 40 mg PO DAILY 12/11/15 [History] SitaGLIPtin [Januvia] 100 mg PO DAILY 12/11/15 [History] Tiotropium [Spiriva] 18 mcg IH DAILY 12/11/15 [History] Trazodone HCl [TraZODone] 100 mg PO HS 12/11/15 [History] Albuterol Neb [Proventil Neb] 2.5 mg IH Q2H PRN #0 inhsol 12/15/15 [Rx] Carvedilol [Coreg] 12.5 mg PO BIDWM #0 12/15/15 [Rx] Oxycodone HCl/Acetaminophen [Percocet 10-325 mg Tablet] 1 tab PO Q4H PRN #20 tablet 12/15/15 [Rx] Cyclobenzaprine [Flexeril] 10 mg PO TID #14 tablet 03/25/16 [Rx] Amlodipine [Norvasc] 5 mg PO DAILY #30 tablet 08/08/16 [Rx] PredniSONE 40 mg PO DAILY #8 tablet 08/08/16 [Rx] Allergies acetaminophen [From Darvocet-N] Allergy (Verified 12/11/15 11:46) Hives ibuprofen Allergy (Verified 12/11/15 11:46) Hives propoxyphene [From Darvocet-N] Allergy (Verified 12/11/15 11:46) Hives tramadol [From Ultram] Allergy (Verified 12/11/15 11:46) Hives - Meds/Allergy Pre-op Review Medications Reviewed: Yes Allergies Reviewed: Yes Beta Blockers on Current Med List: Yes If Beta Blockers taken, Date/Time (Last Dose taken): 11/05/2016 @ 15:48 Anesthesia Results - Labs 11/05/16 01:37 11/05/16 01:37 - Imaging EKG: image reviewed (SR) Anesthesia Exam O2 Sat Height 1.8 m Weight 108.409 kg O2 Sat by Pulse Oximetry 95 O2 Sat by Pulse Oximetry 96 O2 Sat by Pulse Oximetry 95 O2 Sat by Pulse Oximetry 98 O2 Sat by Pulse Oximetry 96 O2 Sat by Pulse Oximetry 96 O2 Sat by Pulse Oximetry 94 O2 Sat by Pulse Oximetry 94 O2 Sat by Pulse Oximetry 93 O2 Sat by Pulse Oximetry 97 O2 Sat by Pulse Oximetry 98 O2 Sat by Pulse Oximetry 98 O2 Sat by Pulse Oximetry 100 Vital Signs Temp Pulse Resp BP Pulse Ox 98.6 F 89 22 154/93 100 11/04/16 19:52 11/04/16 19:52 11/04/16 19:52 11/04/16 19:52 11/04/16 19:52 Vital Signs/O2 Sat, Most Current Temp Pulse Resp BP Pulse Ox 98.2 F 72 16 146/71 95 11/05/16 15:41 11/05/16 15:41 11/05/16 15:48 11/05/16 15:48 11/05/16 15:48 Height: 5'11'' Weight: 239# NPO (# of Hours): > 8 hrs Pain Scale: 0 Pain Scale Used: Numeric (1 - 10) <Laney Cage - Last Filed: 11/06/16 02:15> Date of Encounter: 11/06/16 Anesthesia Results - Labs 11/05/16 01:37 11/05/16 01:37 Laboratory Results WBC 16.3 K/mcL (4.3-11.1) H 11/05/16 01:37 RBC 3.31 M/mcL (4.19-5.50) L 11/05/16 01:37 Hgb 8.9 g/dL (12.9-16.9) L 11/05/16 01:37 Hct 26.9 % (37.5-50.1) L 11/05/16 01:37 MCV 81.3 fL (83.0-100.0) L 11/05/16 01:37 MCH 26.9 pg (28.0-33.3) L 11/05/16 01:37 MCHC 33.1 g/dL (31.6-35.5) 11/05/16 01:37 RDW 13.8 % (11.5-14.5) 11/05/16 01:37 Plt Count 878 K/mcL (140-400) H 11/05/16 01:37 MPV 8.8 fL (9.4-12.4) L 11/05/16 01:37 Immature Gran % 1.4 % (0-4) 11/05/16 01:37 Seg Neutrophils % 73.0 % 11/05/16 01:37 Lymphocytes % 14.3 % 11/05/16 01:37 Monocytes % 7.5 % 11/05/16 01:37 Eosinophils % 3.3 % 11/05/16 01:37 Basophils % 0.5 % 11/05/16 01:37 Neutrophils # 11.9 K/mcL (1.6-8.9) H 11/05/16 01:37 Lymphocytes # 2.3 K/mcL (0.6-4.6) 11/05/16 01:37 Monocytes # 1.2 K/mcL (0.0-1.3) 11/05/16 01:37 Eosinophils # 0.5 K/mcL (0.0-0.6) 11/05/16 01:37 Basophils # 0.1 K/mcL (0.0-0.2) 11/05/16 01:37 Platelet Estimate Marked Increase (Normal) H 11/04/16 20:21 Immature Plt Fraction 1.8 % (1.1-6.1) 11/05/16 01:37 ESR 86 mm/hr (0-10) H 11/04/16 20:24 Sodium 134 mEq/L (136-145) L 11/05/16 01:37 Potassium 3.9 mEq/L (3.5-4.5) 11/05/16 01:37 Chloride 98 mEq/L (98-109) 11/05/16 01:37 Carbon Dioxide 23 mEq/L (19-29) 11/05/16 01:37 BUN 23 mg/dL (8-26) 11/05/16 01:37 Creatinine 1.99 mg/dL (0.72-1.25) H 11/05/16 01:37 Est GFR ( Amer) 42 (> 60) L 11/05/16 01:37 Est GFR (Non-Af Amer) 34 (> 60) L 11/05/16 01:37 BUN/Creatinine Ratio 12 (6-26) 11/05/16 01:37 Glucose 237 mg/dL (70-99) H 11/05/16 01:37 POC Glucose 203 (58-89) H 11/05/16 20:06 Calculated Osmolality 289 (280-300) 11/05/16 01:37 Lactic Acid 1.1 mmol/L (0.5-2.2) 11/05/16 01:43 Calcium 8.9 mg/dL (8.6-10.8) 11/05/16 01:37 Troponin I 0.00 ng/mL (0-0.03) 11/04/16 20:21 C-Reactive Protein 257 mg/L (Less than 5) H 11/04/16 20:21 Impressions Chest X-Ray 11/04/16 20:07 IMPRESSION: Negative portable study. D/ / Tracy Hopkins Cha, MD / Tracy Hopkins Cha, MD Interpreting Provider: Tracy Hopkins Cha, MD Foot X-Ray 11/04/16 21:33 IMPRESSION: Soft tissue swelling surrounding the right great toe. No destructive right great toe process identified. Deformity of the distal 2nd metatarsal likely related to prior remote trauma. Large soft tissue defect of the left lateral distal foot at the level of the 5th metatarsophalangeal joint which demonstrates medial subluxation. There is cortical disruption suspected of the lateral cortex of the 5th metatarsal head. Correlation for fracture or osteomyelitis recommended. MRI may be helpful if indicated D/ / Tracy Hopkins Cha, MD / Tracy Hopkins Cha, MD Interpreting Provider: Tracy Hopkins Cha, MD Hand X-Ray 11/05/16 08:36 IMPRESSION: 1. Diffuse soft tissue swelling of 3rd digit without acute osseous abnormality. 2. Deformities of the 4th and 5th digits with persistent flexion of the PIP joints and hyperextension of the 4th DIP joint. 3. Questionable erosion at the DIP joint of the 2nd digit. D/ / 11/05/2016 09:20:02 Emelia Solis MD / adonis Interpreting Provider: Emelia Solis MD Anesthesia Exam Vital Signs Temp Pulse Resp BP Pulse Ox 11/06/16 00:00 97.3 F L 83 18 133/83 96 11/05/16 20:27 92 L 11/05/16 20:15 16 92 L 11/05/16 20:00 97.6 F 80 19 131/84 97 11/05/16 15:48 16 146/71 95 11/05/16 15:41 98.2 F 72 24 146/71 96 11/05/16 12:27 98.5 F 74 18 95 11/05/16 10:47 99.2 F 77 20 122/73 98 11/05/16 06:34 100.5 F H 82 20 136/70 96 11/05/16 04:17 98.2 F 76 18 138/73 96 Intake and Output 11/05/16 11/05/16 11/06/16 15:59 23:59 07:59 Intake Total 350 / 350 1100 / 1100 Output Total 190 / 190 Balance 160 / 160 1100 / 1100 Intake: IV Fluids 350 / 350 1100 / 1100 0.9 % Sodium Chloride 1, 1000 / 1000 000 ML @ 100 mls/hr IVC . Q10H ALEX Rx#:[id number] Zosyn 3.375 GM In 100 / 100 100 / 100 Dextrose 5% (Minibag+) 100 ML 100 ML @ 25 mls/hr IVPB Q8HR ALEX Rx#: [id number] Vancocin 1,500 MG In 250 / 250 Dextrose 5% 250 ML @ 166. 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
[2016-11-05] MEDS: Gabapentin 300 MG CAPSULE PO SCH (20:35)
[2016-11-05] MEDS ORDERED: rOPINIRole 1 MG TABLET PO SCH (21:00)
[2016-11-05] MEDS ORDERED: traZODone 50 MG TABLET PO SCH (21:00)
[2016-11-06] MEDS: 0.9 % Sodium Chloride 1,000 ML IVC SCH ×2 (04:16→18:07)
[2016-11-06] MEDS: Insulin LISPRO 300 UNITS/3 ML VIAL SQ SCH ×5 (04:17→21:09)
[2016-11-06 05:23] LABS: Hematocrit 27.8 % (37.5-50.1); Mean Corpuscular HGB Conc 32.4 g/dL (31.6-35.5); Mean Corpuscular Hemoglobin 27.1 pg (28.0-33.3); Mean Corpuscular Volume 83.7 fL (83.0-100.0); Mean Platelet Volume 8.9 fL (9.4-12.4); Platelet Count 805 K/mcL (140-400); Red Blood Count 3.32 M/mcL (4.19-5.50); Red Cell Distribution Width 13.9 % (11.5-14.5)
[2016-11-06 06:40] LABS: Calcium 8.7 mg/dL (8.6-10.8); Magnesium 1.9 mg/dL (1.6-2.6); Potassium 5.1 mEq/L (3.5-4.5)
--- NOTE | 2016-11-06 07:36 | Podiatry Progress Note ---
Date of Encounter: 11/06/16 Time of Encounter: 06:50 - Assessment and Plan (1) Osteomyelitis Current Visit: Yes Status: Suspected 1. Full thickness ulceration to right foot at 5th metatarsal head with positive to probe to bone consistent with osteomyelitis. Parital thickness ulceration to the left with purulent drainage noted today. Xray of the left ordered and pending. WBC: 14.9.3, ESR: 86, CRP: 257, Temp: 97.[address] Pace to take patient to surgery later on today (11/06/16) for a debridement. 3. Keep patient NPO. 4. Agree with present antibiotic therapy. 5. Both dressings changed at bedside this morning. Qualifiers: Osteomyelitis location: foot Laterality: right Chronicity: acute Qualified Code(s): M86.171 - Other acute osteomyelitis, right ankle and foot (2) Renal failure Current Visit: No Status: Acute (3) Peripheral vascular disease due to secondary diabetes Current Visit: No Status: Acute 1. ISIDRO of BLE completed on 11/05/16: Right: 0.98 Left: 0.94 (4) Foot ulcer Current Visit: No Status: Chronic 1. Dressing changed on left foot, ulceration is partial thickness. Purulent drainage observed to dressing this morning, no periwwound erythema, no streaking , no odor, no probe to bone. Due to the purulent drainage an Xray of the left foot will be ordered this morning. 2. Wound care orders to include cleansing ulcer of left foot daily with mild soap and water, pat dry, apply dry sterile 4x4 gauze with kerlix. 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 Patient did not go to surgery yesterday. Patient scheduled for surgery later on today for a debridement of the right foot. Patient denies any pain, fever, chills, nausea, vomiting overnight. No complaints of pain. ABIs were completed of bilateral lower extremities yesterday. Right: 0.98 Left: 0.94. Objective - Vital Signs Vital Signs: Vital Signs Temp Pulse Resp BP Pulse Ox 11/06/16 06:34 97.4 F L 56 20 115/62 96 11/06/16 04:00 97.8 F 55 18 135/85 98 11/06/16 00:00 97.3 F L 83 18 133/83 96 11/05/16 20:27 92 L 11/05/16 20:15 16 92 L 11/05/16 20:00 97.6 F 80 19 131/84 97 11/05/16 15:48 16 146/71 95 11/05/16 15:41 98.2 F 72 24 146/71 96 11/05/16 12:27 98.5 F 74 18 95 11/05/16 10:47 99.2 F 77 20 122/73 98 Intake and Output 11/05/16 11/05/16 11/06/16 15:59 23:59 07:59 Intake Total 350 / 350 1100 / 1100 1100 / 1100 Output Total 190 / 190 Balance 160 / 160 1100 / 1100 1100 / 1100 Intake: IV Fluids 350 / 350 1100 / 1100 1100 / 1100 0.9 % Sodium Chloride 1, 1000 / 1000 1000 / 1000 000 ML @ 100 mls/hr IVC . Q10H ALEX Rx#:[id number] Zosyn 3.375 GM In 100 / 100 100 / 100 100 / 100 Dextrose 5% (Minibag+) 100 ML 100 ML @ 25 mls/hr IVPB Q8HR ALEX Rx#: [id number] Vancocin 1,500 MG In 250 / 250 Dextrose 5% 250 ML @ 166. 667 mls/hr IVPB Q24H ALEX Rx#:[id number] Output: Urine 190 / 190 Other: Blood Glucose* 151 203 305 - Exam Exam: General appearance: alert awake oriented X 3. Calm and pleasant, no acute distress.. Vascular: Pedal pulses 0/4 DP/PT , No evidence of cyanosis, pallor or rubor, Edema graded at 1+/4, Skin Temperature warm, No calf pain with manual compression. capillary refill time is immediate to digits. Neurologic: Sensation absent with light touch to both feet . Ulcer: #1 Full thickness ulcer to the right foot at the fifth metatarsal head plantar aspect measuring 1.8 cm in length by 3 cm is in width by 0.5 cm in depth, positive probe to bone with bone exposed, malodorous, periwound erythema extending to the dorsum midfoot. Necrotic skin to the dorsal aspect of toe #5 right foot and at the base of the fifth toe with erythema and edema. Toe nail is mycotic and . #2 Partial thickness Ulceration to the left foot at the fifth metatarsal head plantar aspect measuring 1.8 cm in length x 1.8 cm in width. Purulent drainage observed to dressing. No probe to bone, no odor, no streaking, no fluctuance. - Lab Result Diagrams: 11/06/16 04:53 11/06/16 05:57 Labs: Abnormal lab results WBC 14.9 K/mcL (4.3-11.1) H 11/06/16 04:53 RBC 3.32 M/mcL (4.19-5.50) L 11/06/16 04:53 Hgb 9.0 g/dL (12.9-16.9) L 11/06/16 04:53 Hct 27.8 % (37.5-50.1) L 11/06/16 04:53 MCH 27.1 pg (28.0-33.3) L 11/06/16 04:53 Plt Count 805 K/mcL (140-400) H 11/06/16 04:53 MPV 8.9 fL (9.4-12.4) L 11/06/16 04:53 Neutrophils # 11.9 K/mcL (1.6-8.9) H 11/05/16 01:37 Platelet Estimate Marked Increase (Normal) H 11/04/16 20:21 ESR 86 mm/hr (0-10) H 11/04/16 20:24 Sodium 132 mEq/L (136-145) L 11/06/16 05:57 Potassium 5.1 mEq/L (3.5-4.5) H D 11/06/16 05:57 Carbon Dioxide 18 mEq/L (19-29) L 11/06/16 05:57 BUN 33 mg/dL (8-26) H D 11/06/16 05:57 Creatinine 2.66 mg/dL (0.72-1.25) H 11/06/16 05:57 Est GFR ( Amer) 30 (> 60) L 11/06/16 05:57 Est GFR (Non-Af Amer) 25 (> 60) L 11/06/16 05:57 Glucose 285 mg/dL (70-99) H 11/06/16 05:57 POC Glucose 307 (58-89) H 11/06/16 04:01 C-Reactive Protein 257 mg/L (Less than 5) H 11/04/16 20:21 Consult Discharge Plan - Plan Referrals: Mark Coe MD [Primary Care Provider] -
[2016-11-06] MEDS: *HR* Heparin 5,000 UNIT/ML VIAL SQ SCH ×2 (07:38→18:22)
[2016-11-06] MEDS: Gabapentin 300 MG CAPSULE PO SCH ×3 (07:51→20:43)
[2016-11-06] MEDS: Piperacillin/Tazobactam 3.375 GM in D5% in Water (Mini-Bag+) 100 ML IVPB SCH ×2 (07:51→15:42)
[2016-11-06] MEDS: Hydrocortisone Sodium Succ 100 MG/2 ML VIAL IVP SCH ×2 (07:51→20:42)
[2016-11-06] MEDS: Pantoprazole 40 MG VIAL IVP SCH (07:51)
[2016-11-06] MEDS: Cholecalciferol (D-3) 1,000 UNIT TABLET PO SCH (07:51)
[2016-11-06] MEDS: Nicotine 21 MG PATCH.TD24 TD SCH (07:53)
[2016-11-06] MEDS ORDERED: amLODIPine 5 MG TABLET PO SCH (09:00)
[2016-11-06] MEDS ORDERED: Furosemide 40 MG TABLET PO SCH (09:00)
[2016-11-06] MEDS: Budesonide/Formoterol 160/4.5 MDI IH SCH ×2 (09:00→21:33)
[2016-11-06] MEDS ORDERED: Tiotropium 18 MCG inhalation IH SCH (09:00)
[2016-11-06] MEDS ORDERED: Lisinopril 20 MG TABLET PO SCH (09:00)
[2016-11-06] MEDS ORDERED: Aspirin Enteric Coated 81 MG Tablet PO SCH (09:00)
--- NOTE | 2016-11-06 10:22 | Internal Med Progress Note ---
Date of Encounter: 11/06/16 Time of Encounter: 09:00 - Assessment and plan (1) Osteomyelitis Current Visit: Yes Status: Suspected Assessment and plan: Awaiting surgery planned for later today. Continue IV antibiotics in the meantime. WBC count is improving. Patient will most likely need long-term IV antibiotics. High risk for complications from this condition. Qualifiers: Osteomyelitis location: foot Laterality: right Chronicity: acute Qualified Code(s): M86.171 - Other acute osteomyelitis, right ankle and foot (2) Diabetic ulcer of both feet associated with type 2 diabetes mellitus Current Visit: Yes Status: Acute Assessment and plan: Supportive care. IV antibiotics. Local wound care. (3) Cellulitis of finger of left hand Current Visit: Yes Status: Acute Assessment and plan: Improving. (4) CKD (chronic kidney disease) stage 3, GFR 30-59 ml/min Current Visit: Yes Status: Chronic Assessment and plan: Renal function slightly worse today. Hold Lasix Will gently hydrate. Monitor renal function and he dose antibiotics renally. (5) Diabetes mellitus with neuropathy Current Visit: Yes Status: Chronic Assessment and plan: Blood sugars remain elevated. Likely due to use of Solu-Cortef. Will increase his insulin regimen. Place on long-acting insulin. Continue to monitor blood sugars closely. 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 Will wean steroids. Continue nebs. O2 supplementation if needed Qualifiers: COPD type: unspecified COPD Qualified Code(s): J44.9 - Chronic obstructive pulmonary disease, unspecified (8) Hypertension Current Visit: No Status: Chronic Assessment and plan: Controlled Qualifiers: Hypertension type: essential hypertension Qualified Code(s): I10 - Essential (primary) hypertension (9) Tobacco abuse Current Visit: No Status: Chronic Assessment and plan: On nicotine patch - Subjective Interval history: The patient is awake and alert. Denies any new complaints at this time. Is awaiting surgery on his right foot today. No fever or chills or night sweats overnight. Pain in his right foot is well controlled. - Constitutional Vitals: Temp Pulse Resp BP Pulse Ox 97.4 F L 61 15 138/73 93 L 11/06/16 06:34 11/06/16 07:47 11/06/16 07:47 11/06/16 07:47 11/06/16 07:47 General appearance: Present: disheveled, A&O X 3, obese - Neck Neck exam general surgery: Present: supple, trachea midline. Absent: lymphadenopathy - Respiratory Respiratory exam: Present: CTAB, prolonged expiratory phase, wheezes (Bilateral) . Absent: accessory muscle use, rales, rhonchi - Cardiovascular Cardiovascular exam: Present: RRR, +S1, +S2. Absent: diastolic murmur, gallop, rubs, systolic murmur - GI/Abdominal GI/Abdominal exam: Present: normal bowel sounds, soft, no peritoneal signs. Absent: distended, tenderness - Extremities Exam Extremities exam: Present: warm, radial pulses palpable and symetrical. Absent : calf tenderness, cyanotic, pedal edema Additional comments: Bilateral feet are currently bandaged. Nontender to palpation - Neurological Exam Neurological exam: Present: CN II-XII intact, oriented X3, no focal deficits, strengths equal and symetr throughout. Absent: facial droop, speech deficit Internal Medicine: Result - Labs CBC & Chem 7: 11/06/16 04:53 11/06/16 05:57 Labs: Short CBC 11/06/16 Range/Units 04:53 WBC 14.9 H (4.3-11.1) K/mcL Hgb 9.0 L (12.9-16.9) g/dL Hct 27.8 L (37.5-50.1) % Plt Count 805 H (140-400) K/mcL BMP 11/06/16 05:57 Sodium 132 L Potassium 5.1 H D Chloride 101 Carbon Dioxide 18 L BUN 33 H D Creatinine 2.66 H Glucose 285 H Calcium 8.7 - Impressions Impressions Foot X-Ray 11/06/16 07:31 IMPRESSION: Soft tissue wound subjacent to the head of the left 5th metatarsal. No underlying osseous abnormality is seen. D/ / 11/06/2016 08:06:15 Sebastián Baltazar MD / adonis Interpreting Provider: Sebastián Baltazar MD Consult Discharge Plan - Plan Referrals: Mark Coe MD [Primary Care Provider] - - Attending Attestation This document has been at least partially created by Spinal Modulation recognition technology by Dr. Nieto. Errors in grammar, wording or other phrases may exist. If errors are found after the documentation is signed, they will be addressed individually in the addendum section of this document when appropriate.
[2016-11-06] MEDS ORDERED: 0.9 % Sodium Chloride 1,000 ML IVC SCH (10:24)
[2016-11-06] MEDS ORDERED: Hydrocortisone Sodium Succ 100 MG/2 ML VIAL IVP SCH ×2 (10:30→20:00)
[2016-11-06] MEDS: *HR* OxyCODONE Immed Rel 5 MG TABLET PO PRN ×2 (10:53→18:07)
--- NOTE | 2016-11-06 11:43 | Arterial Study Report ---
LE Arterial Physiologic Study Patient Name:Nikita Regalado Order Number:[id number] Procedure Date:11/05/2016 Date:1955ge:61 yrs Gender:Male Lt BP:134 / mmHg Rt.BP:135 / mmHgHeart Rate: Location:[facility] Room #: 3AL22 Christmas Bell Ringer:Cynthia Alanis RDCS, RVT Referring MD:Christian Siddiqui MD allocations clerk:Mark Coe MD Reading MD:Frank Yap MD Primary Indications:Absent Pulses Risk Factors Yes/No Hypertension Yes Diabetes Yes Hypercholesterolemia Yes Smoking Current Yes Hx of CAD/PTCA Yes Impressions: 1) Bilateral lower extremities waveform demonstrates normal hemodynamics. 2) bilateral Ankle Brachial Index is normal. 3) Overall Impression: Arterial hemodynamics are well maintained at rest. Recommendations: After imaging the patient returned to their room. Findings LE Arterial Physiologic Exam: PVR: Right: The PVR waveforms are normal in the right ankle. Left: The PVR waveforms are normal in the left ankle. Prior Study: No prior study available for comparison. Segmental Pressures Side Location Pressure Index Result Right Posterior Tibial 132 0.98 Normal Right Dorsalis Pedis 117 0.87 Mildly Diminished Left Posterior Tibial 127 0.94 Mildly Diminished Left Dorsalis Pedis 98 0.73 Moderately Diminished Ankle Brachial Index Right Systolic Diastolic ISIDRO Brachial 135 0.98 Dorsalis Pedis 117 0.87 Posterior Tibial 132 0.98 Left Systolic Diastolic ISIDRO Brachial 134 0.94 Dorsalis Pedis 98 0.73 Posterior Tibial 127 0.94 Updated by Frank Yap MD on 11/06/2016 11:38:25 AM with Status of Final electronically signed on 11/06/2016 11:38:40 AM with status of Final
[2016-11-06] MEDS: Vancomycin 1,500 MG in D5% in Water 250 ML IVPB SCH (11:49)
[2016-11-06 12:19] LABS: Calcium 8.3 mg/dL (8.6-10.8); Potassium 4.9 mEq/L (3.5-4.5)
--- NOTE | 2016-11-06 13:18 | Orthopedics Progress Note ---
Date of Encounter: 11/06/16 Time of Encounter: 12:40 - Assessment and Plan (1) Cellulitis of finger of left hand Current Visit: Yes Status: Acute Some improvement to swelling and erythema overnight. Improved ROM. Continue IV abx per hospitalist. Continue to keep dressings on finger. Continue ROM of hand. Continue elevation of hand. Subjective Principal diagnosis: left long finger infection Interval history: Patient feeling ok today with no events overnight. minimal pain in finger. He did not go to surgery yesterday but plan to go tomorrow. Objective Vital signs: Vital Signs Temp Pulse Resp BP Pulse Ox 11/06/16 11:02 97.6 F 58 18 114/65 94 L 11/06/16 10:50 60 16 107/59 97 11/06/16 07:47 61 15 138/73 93 L 11/06/16 06:34 97.4 F L 56 20 115/62 96 11/06/16 04:00 97.8 F 55 18 135/85 98 11/06/16 00:00 97.3 F L 83 18 133/83 96 11/05/16 20:27 92 L 11/05/16 20:15 16 92 L 11/05/16 20:00 97.6 F 80 19 131/84 97 11/05/16 15:48 16 146/71 95 11/05/16 15:41 98.2 F 72 24 146/71 96 Intake and Output 11/05/16 11/06/16 11/06/16 23:59 07:59 15:59 Intake Total 1100 / 1100 1100 / 1100 100 / 100 Output Total 300 / 300 Balance 1100 / 1100 1100 / 1100 -200 / -200 Intake: IV Fluids 1100 / 1100 1100 / 1100 100 / 100 0.9 % Sodium Chloride 1, 1000 / 1000 1000 / 1000 000 ML @ 100 mls/hr IVC . Q10H ALEX Rx#:[id number] Zosyn 3.375 GM In 100 / 100 100 / 100 100 / 100 Dextrose 5% (Minibag+) 100 ML 100 ML @ 25 mls/hr IVPB Q8HR ALEX Rx#: [id number] Output: Urine 300 / 300 Other: Blood Glucose* 203 305 371 Incision: red (left LF has slight decrease in erythema and swelling around PIPJ. improved ROM, NV intact, brisk cap refill, no tendernes to palpation along tendon sheath) - Labs CBC & BMP: 11/06/16 04:53 11/06/16 11:51 Labs: Abnormal lab results WBC 14.9 K/mcL (4.3-11.1) H 11/06/16 04:53 RBC 3.32 M/mcL (4.19-5.50) L 11/06/16 04:53 Hgb 9.0 g/dL (12.9-16.9) L 11/06/16 04:53 Hct 27.8 % (37.5-50.1) L 11/06/16 04:53 MCH 27.1 pg (28.0-33.3) L 11/06/16 04:53 Plt Count 805 K/mcL (140-400) H 11/06/16 04:53 MPV 8.9 fL (9.4-12.4) L 11/06/16 04:53 Neutrophils # 11.9 K/mcL (1.6-8.9) H 11/05/16 01:37 Platelet Estimate Marked Increase (Normal) H 11/04/16 20:21 ESR 86 mm/hr (0-10) H 11/04/16 20:24 Sodium 130 mEq/L (136-145) L 11/06/16 11:51 Potassium 4.9 mEq/L (3.5-4.5) H 11/06/16 11:51 BUN 38 mg/dL (8-26) H 11/06/16 11:51 Creatinine 2.72 mg/dL (0.72-1.25) H 11/06/16 11:51 Est GFR ( Amer) 29 (> 60) L 11/06/16 11:51 Est GFR (Non-Af Amer) 24 (> 60) L 11/06/16 11:51 Glucose 359 mg/dL (70-99) H 11/06/16 11:51 POC Glucose 307 (58-89) H 11/06/16 04:01 Calcium 8.3 mg/dL (8.6-10.8) L 11/06/16 11:51 C-Reactive Protein 257 mg/L (Less than 5) H 11/04/16 20:21 Consult Discharge Plan - Plan Referrals: Luba Dorantes, PAC [Physician Roguer] - 11/20/16 11:40 am Mark Coe MD [Primary Care Provider] -
[2016-11-06] MEDS ORDERED: Bupivacaine/Clonidine Syringe 1 EACH SYRINGE ONE (16:22)
[2016-11-06] MEDS ORDERED: Metoclopramide 10 MG/2 ML VIAL ONE (16:25)
[2016-11-06] MEDS ORDERED: Famotidine 20 MG/2 ML VIAL ONE (16:26)
[2016-11-06] MEDS ORDERED: Lidocaine -MPF 2% 2 ML VIAL ONE (16:34)
[2016-11-06] MEDS ORDERED: Propofol 500 MG/50 ML INFUS..BTL ONE (16:34)
[2016-11-06] MEDS ORDERED: Dextrose Gel 15 GM PO PRN ×2 (17:47)
[2016-11-06] MEDS ORDERED: D5% in Water 1,000 ML IV PRN (17:47)
[2016-11-06] MEDS ORDERED: Ondansetron 4 MG/2 ML VIAL IVP PRN (17:47)
[2016-11-06] MEDS ORDERED: Naloxone 0.4 MG/ML INJ IVP PRN (17:47)
[2016-11-06] MEDS ORDERED: *HR* Dextrose 50 % in Water (Syg) 50 ML SYRINGE IVP PRN (17:47)
--- NOTE | 2016-11-06 17:49 | Orthopedic Operative Note ---
Date of procedure: 11/06/16 Pre-op diagnosis: Abscess with osteomyelitis #5 MTPJ right Post-op diagnosis: same Procedure: 11/06/16 17:43 #1 incision and drainage to bone cortex for osteomyelitis #5 metatarsal right. #2 open amputation of toe #5 with metatarsal #5 right foot #3 application wound VAC Implants: None Complications: None Anesthesia: MAC Local Anesthetics: 0.5% Sensorcaine HCL SubQ (cc) Surgeon: Ernesto Pace Estimated blood loss (cc): 5 Tourniquet Time (Minutes): 0 Specimen: Total #5 right foot, metatarsal #5 for culture, then for pathology. Condition: stable Disposition: floor Procedure in Detail: 11/06/16 17:44 Details summary procedure: Patient brought to surgical suite. Sign in procedure performed. Patient transferred to the surgical table and positioned properly safely securely. Right foot elevated on foam block. No tourniquet used. Anesthetic timeout taken. Right ankle prepped with alcohol 3 times. Ankle block carried out locations. Right foot ankle prepped and draped in usual sterile manner. Surgical timeout taken. Patient identified for the third time since entering the surgical suite, for proper procedure and correct laterality. Inspection of #5 toe reveals fluctuance over the dorsal aspect MTPJ. We see necrosis on the dorsal lateral aspect of the toe. Exposure of the fifth metatarsal through the plantar wound with spontaneous eruption of the cartilaginous surfaces off the subchondral bone. A 4 cm wide wound noted on the plantar aspect of the fifth MTPJ. Noting necrosis fifth toe 2 semielliptical incisions were carried out encompassing the fifth toe a transverse fashion mediolateral aspect of the fifth MTPJ and then brought proximally along the shaft of the fifth metatarsal. The fifth toe was then disarticulated and purulent drainage was expressed dorsally which was immediately cultured. Completion of disarticulation expose the distal aspect of fifth metatarsal. The bone was not of normal color texture density. It was an isolated proximally using a McGlamry elevator. It was then divided at the distal one third of the metaphysis of the metatarsal. Distal aspect metatarsal was then sent for culture and then to pathology. Remaining necrotic tissue was then debrided accordingly with a Metzenbaum and pickup. Remainder the wound was debrided with ultrasonic Misonic debrider. Satisfied the wound was clean and without any further chronic tissue or purulent drainage was inspected and irrigated with saline. No active bleeding necessitating use of Bovie ligature. The wound was noted to bleed freely. The wound was then sutured with 3-0 Prolene. The wound was sprayed with PRP, hemostasis was achieved. That juncture wound VAC was placed on the plantar aspect of the wound. It was found to function properly. Patient was then transferred to the holding room in good condition with vital signs stable. No complications. Patient tolerated the procedure and the anesthesia well. Estimated blood loss less than 5 mL.
--- NOTE | 2016-11-06 18:24 | Anesthesia Evaluation Post Op ---
Date of Encounter: 11/06/16 Time of Encounter: 18:00 - Vital Signs Vital Signs: Vital Signs/O2 Sat/Glucose, Most Current Temp Pulse Resp BP Pulse Ox 11/06/16 17:55 97.6 F 58 16 108/57 93 L 11/06/16 15:13 97.7 F 65 16 124/67 100 - Lungs Lungs: Clear Ascult./Percussion - Airway Airway: Non-obstructed - Cardiovascular Regular Rate, Irregular Rate - Mental Status Mental Status: Alert & Oriented, Answers Appropriately - Pain Pain Scale: 0 - Nausea Vomiting Nausea Vomiting: Not Present - Hydration Hydration: NPO - Discharge PostOp Status: Transfer Patient to floor
[2016-11-06] MEDS: rOPINIRole 1 MG TABLET PO SCH (20:42)
[2016-11-06] MEDS: traZODone 50 MG TABLET PO SCH (20:42)
[2016-11-06] MEDS: Insulin DETEMIR 100 UNIT/ML X5UNITS SQ SCH (20:49)
[2016-11-06] MEDS ORDERED: Insulin DETEMIR 100 UNIT/ML X5UNITS SQ SCH (21:00)
[2016-11-07] MEDS: Piperacillin/Tazobactam 3.375 GM in D5% in Water (Mini-Bag+) 100 ML IVPB SCH ×3 (03:27→16:05)
[2016-11-07] MEDS: 0.9 % Sodium Chloride 1,000 ML IVC SCH ×3 (03:28→21:32)
[2016-11-07] MEDS: Insulin LISPRO 300 UNITS/3 ML VIAL SQ SCH ×8 (03:30→21:21)
[2016-11-07] MEDS: *HR* OxyCODONE Immed Rel 5 MG TABLET PO PRN ×3 (03:42→17:39)
[2016-11-07] MEDS: *HR* Heparin 5,000 UNIT/ML VIAL SQ SCH ×2 (06:02→17:34)
[2016-11-07 06:40] LABS: Basophils % 0.3 %; Eosinophils % 0.2 %; Hematocrit 24.8 % (37.5-50.1); Immature Granulocytes % 1.5 % (0-4); Lymphocytes # 1.5 K/mcL (0.6-4.6); Lymphocytes % 10.6 %; Mean Corpuscular HGB Conc 32.3 g/dL (31.6-35.5); Mean Corpuscular Hemoglobin 26.8 pg (28.0-33.3); Mean Corpuscular Volume 83.2 fL (83.0-100.0); Monocytes # 0.7 K/mcL (0.0-1.3); Monocytes % 4.8 %; Neutrophils # 11.4 K/mcL (1.6-8.9); Platelet Count 836 K/mcL (140-400); Red Blood Count 2.98 M/mcL (4.19-5.50); Red Cell Distribution Width 13.9 % (11.5-14.5); Segmented Neutrophils % 82.6 %
[2016-11-07 06:54] LABS: Calcium 8.3 mg/dL (8.6-10.8); Potassium 4.7 mEq/L (3.5-4.5)
--- NOTE | 2016-11-07 07:38 | Podiatry Progress Note ---
Date of Encounter: 11/07/16 Time of Encounter: 06:50 - Assessment and Plan (1) Osteomyelitis Current Visit: Yes Status: Suspected 1. s/p incision and drainage to bone cortex for osteomyelitis #5 metatarsal right, open amputation of toe #5 with metatarsal #5 right foot, application wound VAC on 11/06/16. Wound vac intact with 10 cc of serosanguineous drainage observed to wound vac chamber. 2. WBC: 13.8, T: 97.5, Intraop cultures obtained and pending. 3. Patient will need chcf IV antibiotics x 6 weeks with wound vac changes every M-W-F. Wound vac: black sponge, connected to 125 mmhg continuous suction. 4. Patient stated he would like to go to [place]. 5. Will consult nephrology social worker and physical therapy. Qualifiers: Qualified Code(s): M86.171 - Other acute osteomyelitis, right ankle and foot (2) Renal failure Current Visit: No Status: Acute (3) Peripheral vascular disease due to secondary diabetes Current Visit: No Status: Acute 1. ISIDRO of BLE completed on 11/05/16: Right: 0.98 Left: 0.94 (4) Foot ulcer Current Visit: No Status: Chronic 1. Dressing changed to left foot, ulceration is partial thickness. Dressing changed at bedside. Significant improvement in ulceration to the left foot. No erythema, no pus, no odor, no erythema, no streaking. Scant amount of serous drainage observed to dressing. 2. Wound care orders to include cleansing ulcer of left foot daily with mild soap and water, pat dry, apply dry sterile 4x4 gauze with kerlix. Qualifiers: Qualified Code(s): L97.512 - Non-pressure chronic ulcer of other part of right foot with fat layer exposed (5) Diabetes mellitus with neuropathy Current Visit: Yes Status: Chronic Qualifiers: Qualified Code(s): E11.40 - Type 2 diabetes mellitus with diabetic neuropathy , unspecified; Z79.4 - senior care (current) use of insulin Subjective Principal diagnosis: left long finger infection Interval history: Patient is s/p incision and drainage to bone cortex for osteomyelitis #5 metatarsal right, open amputation of toe #5 with metatarsal #5 right foot, application wound VAC by Dr. Pace on 11/06/16. Patient denies any pain, fever, chills, nausea, vomiting overnight. Patient states he lives with his niece and nephew and would prefer to be discharged to [facility]. Objective - Vital Signs Vital Signs: Vital Signs Temp Pulse Resp BP Pulse Ox 11/07/16 04:00 97.5 F L 59 17 134/74 94 L 11/07/16 00:00 98.1 F 62 18 112/65 95 11/06/16 21:35 16 94 L 11/06/16 17:55 97.6 F 58 16 108/57 93 L 11/06/16 15:13 97.7 F 65 16 124/67 100 11/06/16 11:02 97.6 F 58 18 114/65 94 L 11/06/16 10:50 60 16 107/59 97 11/06/16 09:00 16 99 11/06/16 07:47 61 15 138/73 93 L Intake and Output 11/06/16 11/06/16 11/07/16 15:59 23:59 07:59 Intake Total 100 / 100 660 / 660 1200 / 1200 Output Total 400 / 400 5 / 5 325 / 325 Balance -300 / -300 655 / 655 875 / 875 Intake: IV Fluids 100 / 100 1000 / 1000 0.9 % Sodium Chloride 1, 1000 / 1000 000 ML @ 125 mls/hr IVC . Q8H ALEX Rx#:[id number] Zosyn 3.375 GM In 100 / 100 Dextrose 5% (Minibag+) 100 ML 100 ML @ 25 mls/hr IVPB Q8HR ALEX Rx#: [id number] Oral 660 / 660 200 / 200 Output: Urine 400 / 400 325 / 325 Estimated Blood Loss 5 / 5 Wound Drainage 0 / 0 Right Distal Toe 0 / 0 Other: Stool Consistency liquid # Voids 1 # Bowel Movements 3 Blood Glucose* [phone] - Exam Exam: General appearance: alert awake oriented X 3. Calm and pleasant, no acute distress.. Vascular: Pedal pulses 0/4 DP/PT , No evidence of cyanosis, pallor or rubor, Edema graded at 1+/4, Skin Temperature warm, No calf pain with manual compression. capillary refill time is immediate to digits. Neurologic: Sensation absent with light touch to both feet . Ulcer: Partial thickness Ulceration to the left foot at the fifth metatarsal head plantar aspect measuring 1.8 cm in length x 1.8 cm in width. scan amount of serous drainage observed to dressing. No probe to bone, no odor, no erythema, no streaking, no fluctuance. Post op: Wound VAC intact to right foot with black sponge, 125 mmhg continuous suction, 10 cc of serosanguineous drainage observed to wound vac chamber. Light periwound erythema, no streaking, no lymphangitis, no purulent drainage, no fluctuance, no warmth. - Lab Result Diagrams: 11/07/16 06:09 11/07/16 06:09 Labs: Abnormal lab results WBC 13.8 K/mcL (4.3-11.1) H 11/07/16 06:09 RBC 2.98 M/mcL (4.19-5.50) L 11/07/16 06:09 Hgb 8.0 g/dL (12.9-16.9) L 11/07/16 06:09 Hct 24.8 % (37.5-50.1) L 11/07/16 06:09 MCH 26.8 pg (28.0-33.3) L 11/07/16 06:09 Plt Count 836 K/mcL (140-400) H 11/07/16 06:09 MPV 9.0 fL (9.4-12.4) L 11/07/16 06:09 Neutrophils # 11.4 K/mcL (1.6-8.9) H 11/07/16 06:09 Platelet Estimate Marked Increase (Normal) H 11/04/16 20:21 ESR 86 mm/hr (0-10) H 11/04/16 20:24 Sodium 131 mEq/L (136-145) L 11/07/16 06:09 Potassium 4.7 mEq/L (3.5-4.5) H 11/07/16 06:09 Carbon Dioxide 18 mEq/L (19-29) L 11/07/16 06:09 BUN 42 mg/dL (8-26) H 11/07/16 06:09 Creatinine 2.73 mg/dL (0.72-1.25) H 11/07/16 06:09 Est GFR ( Amer) 29 (> 60) L 11/07/16 06:09 Est GFR (Non-Af Amer) 24 (> 60) L 11/07/16 06:09 Glucose 336 mg/dL (70-99) H 11/07/16 06:09 POC Glucose 376 (58-89) H 11/07/16 03:41 Calcium 8.3 mg/dL (8.6-10.8) L 11/07/16 06:09 C-Reactive Protein 257 mg/L (Less than 5) H 11/04/16 20:21 Microbiology, Last 48 Hours 11/06/16 17:15 Surgical Biopsy Culture - Preliminary Right Foot Consult Discharge Plan - Plan Referrals: Luba Dorantes, PAC [Physician Climatologist] - 11/20/16 11:40 am Mark Coe MD [Primary Care Provider] -
[2016-11-07] MEDS: Gabapentin 300 MG CAPSULE PO SCH ×3 (08:05→21:22)
[2016-11-07] MEDS: Insulin DETEMIR 100 UNIT/ML X5UNITS SQ SCH ×2 (08:05→21:22)
[2016-11-07] MEDS: Hydrocortisone Sodium Succ 100 MG/2 ML VIAL IVP SCH (08:06)
[2016-11-07] MEDS: amLODIPine 5 MG TABLET PO SCH (08:06)
[2016-11-07] MEDS: Cholecalciferol (D-3) 1,000 UNIT TABLET PO SCH (08:06)
[2016-11-07] MEDS: Pantoprazole 40 MG VIAL IVP SCH (08:06)
[2016-11-07] MEDS: Nicotine 21 MG PATCH.TD24 TD SCH (08:07)
[2016-11-07] MEDS: Budesonide/Formoterol 160/4.5 MDI IH SCH ×2 (08:16→21:41)
[2016-11-07] MEDS: Tiotropium 18 MCG inhalation IH SCH (08:16)
[2016-11-07] MEDS: Aspirin Enteric Coated 81 MG Tablet PO SCH (08:26)
--- NOTE | 2016-11-07 09:17 | Internal Med Progress Note ---
Date of Encounter: 11/07/16 Time of Encounter: 08:20 - Assessment and plan (1) Osteomyelitis Current Visit: Yes Status: Suspected Assessment and plan: Status post incision and drainage , wound VAC placement to right, foot fifth metatarsal and fifth 2 amputation. Patient will need long-term IV antibiotics. Continue current IV antibiotics. Will consult invasive line team for PICC line placement. Awaiting culture results. Qualifiers: Osteomyelitis location: foot Laterality: right Chronicity: acute Qualified Code(s): M86.171 - Other acute osteomyelitis, right ankle and foot (2) Diabetic ulcer of both feet associated with type 2 diabetes mellitus Current Visit: Yes Status: Acute Assessment and plan: Management as above (3) Cellulitis of finger of left hand Current Visit: Yes Status: Acute Assessment and plan: Resolving. (4) CKD (chronic kidney disease) stage 3, GFR 30-59 ml/min Current Visit: Yes Status: Chronic Assessment and plan: Creatinine 2.73 today. Continue IV hydration. Patient does have good urine output. We will follow her renal function. Dose antibiotics renally. (5) Diabetes mellitus with neuropathy Current Visit: Yes Status: Chronic Assessment and plan: Blood sugars remain uncontrolled. Will increase insulin regimen further. Qualifiers: Diabetes mellitus type: type 2 Diabetes mellitus terminal block assembler insulin use: with terminal block assembler use Qualified Code(s): E11.40 - Type 2 diabetes mellitus with diabetic neuropathy, unspecified; Z79.4 - residential (current) use of insulin (6) Peripheral vascular disease Current Visit: Yes Status: Chronic (7) COPD (chronic obstructive pulmonary disease) Current Visit: No Status: Chronic Assessment and plan: Improving. Will stop IV hydrocortisone. Start oral prednisone taper. Qualifiers: COPD type: unspecified COPD Qualified Code(s): J44.9 - Chronic obstructive pulmonary disease, unspecified (8) Hypertension Current Visit: No Status: Chronic Assessment and plan: Well-controlled Qualifiers: Hypertension type: essential hypertension Qualified Code(s): I10 - Essential (primary) hypertension (9) Tobacco abuse Current Visit: No Status: Chronic - Subjective Interval history: Pain is well controlled. No new complaints at this time. Underwent surgery yesterday for abscess with osteomyelitis of the right foot. No postoperative complications. - Constitutional Vitals: Temp Pulse Resp BP Pulse Ox 97.5 F L 54 16 138/76 96 11/07/16 06:48 11/07/16 06:48 11/07/16 06:48 11/07/16 06:48 11/07/16 06:48 General appearance: Present: disheveled, A&O X 3, obese - Respiratory Respiratory exam: Present: prolonged expiratory phase, wheezes. Absent: accessory muscle use, rales, rhonchi - Cardiovascular Cardiovascular exam: Present: RRR, +S1, +S2. Absent: diastolic murmur, gallop, rubs, systolic murmur - GI/Abdominal GI/Abdominal exam: Present: normal bowel sounds, soft, no peritoneal signs. Absent: distended, tenderness - Extremities Exam Extremities exam: Present: warm, radial pulses palpable and symetrical. Absent : calf tenderness, cyanotic, pedal edema Additional comments: Bilateral lower extremity secondary to bandage. Wound VAC Present on right foot surgical site. - Neurological Exam Neurological exam: Present: alert, oriented X3, no focal deficits. Absent: facial droop, speech deficit Internal Medicine: Result - Labs CBC & Chem 7: 11/07/16 06:09 11/07/16 06:09 Labs: Short CBC 11/07/16 Range/Units 06:09 WBC 13.8 H (4.3-11.1) K/mcL Hgb 8.0 L (12.9-16.9) g/dL Hct 24.8 L (37.5-50.1) % Plt Count 836 H (140-400) K/mcL Neutrophils # 11.4 H (1.6-8.9) K/mcL BMP 11/06/16 11/07/16 11:51 06:09 Sodium 130 L 131 L Potassium 4.9 H 4.7 H Chloride 100 100 Carbon Dioxide 19 18 L BUN 38 H 42 H Creatinine 2.72 H 2.73 H Glucose 359 H 336 H Calcium 8.3 L 8.3 L Consult Discharge Plan - Plan Referrals: Luba Dorantes, PAC [Physician X Ray Developer] - 11/20/16 11:40 am Mark Coe MD [Primary Care Provider] - - Attending Attestation This document has been at least partially created by BeMo recognition technology by Dr. Nieto. Errors in grammar, wording or other phrases may exist. If errors are found after the documentation is signed, they will be addressed individually in the addendum section of this document when appropriate.
[2016-11-07] MEDS ORDERED: Lidocaine -MPF 1% 5 ML AMPUL INFILT ONE (09:25)
[2016-11-07] MEDS ORDERED: Vancomycin 1,500 MG in D5% in Water 250 ML IVPB SCH (12:00)
--- NOTE | 2016-11-07 13:44 | Orthopedics Progress Note ---
Date of Encounter: 11/07/16 Time of Encounter: 13:10 - Assessment and Plan (1) Cellulitis of finger of left hand Current Visit: Yes Status: Acute Significant improvement to swelling and erythema overnight. Improved ROM. Continue IV abx per hospitalist. Continue to keep dressings on finger. Continue ROM of hand. Continue elevation of hand. Will f/up with Berna Valenzuela PA-C in [facility] office in 1 week from discharge. Subjective Principal diagnosis: left long finger infection Interval history: Patient feeling better today with no events overnight. minimal pain in finger. He did go to surgery yesterday on feet. Objective Vital signs: Vital Signs Temp Pulse Resp BP Pulse Ox 11/07/16 11:24 98.3 F 64 16 156/78 94 L 11/07/16 06:48 97.5 F L 54 16 138/76 96 11/07/16 04:00 97.5 F L 59 17 134/74 94 L 11/07/16 00:00 98.1 F 62 18 112/65 95 11/06/16 21:35 16 94 L 11/06/16 17:55 97.6 F 58 16 108/57 93 L 11/06/16 15:13 97.7 F 65 16 124/67 100 Intake and Output 11/06/16 11/07/16 11/07/16 23:59 07:59 15:59 Intake Total 660 / 660 1300 / 1300 1300 / 1300 Output Total 5 / 5 325 / 325 625 / 625 Balance 655 / 655 975 / 975 675 / 675 Intake: IV Fluids 1100 / 1100 1100 / 1100 0.9 % Sodium Chloride 1, 1000 / 1000 1000 / 1000 000 ML @ 125 mls/hr IVC . Q8H ALEX Rx#:[id number] Zosyn 3.375 GM In 100 / 100 100 / 100 Dextrose 5% (Minibag+) 100 ML 100 ML @ 25 mls/hr IVPB Q8HR ALEX Rx#: [id number] Oral 660 / 660 200 / 200 200 / 200 Output: Urine 325 / 325 625 / 625 Estimated Blood Loss 5 / 5 Wound Drainage 0 / 0 Right Distal Toe 0 / 0 Other: Stool Consistency liquid # Voids 1 1 # Bowel Movements 3 Blood Glucose* [id number] Incision: healing (significant decrease in redness and swelling to left LF, improved ROM of LF almost full, no tenderness to palpation, no open wounds) - Labs CBC & BMP: 11/07/16 06:09 11/07/16 06:09 Labs: Abnormal lab results WBC 13.8 K/mcL (4.3-11.1) H 11/07/16 06:09 RBC 2.98 M/mcL (4.19-5.50) L 11/07/16 06:09 Hgb 8.0 g/dL (12.9-16.9) L 11/07/16 06:09 Hct 24.8 % (37.5-50.1) L 11/07/16 06:09 MCH 26.8 pg (28.0-33.3) L 11/07/16 06:09 Plt Count 836 K/mcL (140-400) H 11/07/16 06:09 MPV 9.0 fL (9.4-12.4) L 11/07/16 06:09 Neutrophils # 11.4 K/mcL (1.6-8.9) H 11/07/16 06:09 Platelet Estimate Marked Increase (Normal) H 11/04/16 20:21 ESR 86 mm/hr (0-10) H 11/04/16 20:24 Sodium 131 mEq/L (136-145) L 11/07/16 06:09 Potassium 4.7 mEq/L (3.5-4.5) H 11/07/16 06:09 Carbon Dioxide 18 mEq/L (19-29) L 11/07/16 06:09 BUN 42 mg/dL (8-26) H 11/07/16 06:09 Creatinine 2.73 mg/dL (0.72-1.25) H 11/07/16 06:09 Est GFR ( Amer) 29 (> 60) L 11/07/16 06:09 Est GFR (Non-Af Amer) 24 (> 60) L 11/07/16 06:09 Glucose 336 mg/dL (70-99) H 11/07/16 06:09 POC Glucose 376 (58-89) H 11/07/16 03:41 Calcium 8.3 mg/dL (8.6-10.8) L 11/07/16 06:09 C-Reactive Protein 257 mg/L (Less than 5) H 11/04/16 20:21 Vancomycin Trough 24.7 mcg/mL (10-20) H* 11/07/16 10:31 Consult Discharge Plan - Plan Referrals: Luba Dorantes, PAC [Physician Construction Economist] - 11/20/16 11:40 am Mark Coe MD [Primary Care Provider] -
[2016-11-07] MEDS: *HR* Morphine 2 MG/ML SYRINGE IVP PRN ×2 (16:12→21:22)
[2016-11-07] MEDS: rOPINIRole 1 MG TABLET PO SCH (21:22)
[2016-11-07] MEDS: traZODone 50 MG TABLET PO SCH (21:22)
[2016-11-08] MEDS: Piperacillin/Tazobactam 3.375 GM in D5% in Water (Mini-Bag+) 100 ML IVPB SCH ×3 (01:35→16:07)
[2016-11-08] MEDS: *HR* OxyCODONE Immed Rel 5 MG TABLET PO PRN ×3 (01:40→20:45)
[2016-11-08] MEDS: *HR* Morphine 2 MG/ML SYRINGE IVP PRN (04:52)
[2016-11-08] MEDS: 0.9 % Sodium Chloride 1,000 ML IVC SCH (06:23)
[2016-11-08 06:41] LABS: Basophils # 0.1 K/mcL (0.0-0.2); Basophils % 0.6 %; Eosinophils # 0.2 K/mcL (0.0-0.6); Eosinophils % 1.7 %; Hematocrit 22.8 % (37.5-50.1); Hemoglobin 7.4 g/dL (12.9-16.9); Immature Granulocytes % 4.7 % (0-4); Lymphocytes # 2.4 K/mcL (0.6-4.6); Lymphocytes % 19.6 %; Mean Corpuscular HGB Conc 32.5 g/dL (31.6-35.5); Mean Corpuscular Hemoglobin 27.2 pg (28.0-33.3); Mean Corpuscular Volume 83.8 fL (83.0-100.0); Mean Platelet Volume 8.8 fL (9.4-12.4); Monocytes # 1.1 K/mcL (0.0-1.3); Monocytes % 8.8 %; Neutrophils # 7.9 K/mcL (1.6-8.9); Platelet Count 900 K/mcL (140-400); Red Blood Count 2.72 M/mcL (4.19-5.50); Red Cell Distribution Width 14.2 % (11.5-14.5); Segmented Neutrophils % 64.6 %
[2016-11-08 06:57] LABS: Calcium 7.7 mg/dL (8.6-10.8); Potassium 4.8 mEq/L (3.5-4.5)
--- NOTE | 2016-11-08 07:35 | Podiatry Progress Note ---
Date of Encounter: 11/08/16 Time of Encounter: 06:50 - Assessment and Plan (1) Osteomyelitis Current Visit: Yes Status: Suspected 1. s/p incision and drainage to bone cortex for osteomyelitis #5 metatarsal right, open amputation of toe #5 with metatarsal #5 right foot, application wound VAC on 11/06/16. Wound vac intact with 20 cc of serosanguineous drainage observed to wound vac chamber. 2. WBC: 12.2 and trending down, a febrile. Intraop cultures: Preliminary results: Proteus Vulgaris and GPC. 3. Patient will need long-term IV antibiotics x 6 weeks with wound vac changes every M-W-. Wound vac: black sponge, connected to 125 mmhg continuous suction. Wound vac changed on 11/08/16 by nurse. 4. Patient stated he would like to go to [place]. Patient will need a tall cam boot, protective weight bearing with walker. PT working with patient. 5. transportation services representative working on discharge planning. 6. Patient will need a f/u with Dr. Pace in wound care. Qualifiers: Osteomyelitis location: foot Laterality: right Chronicity: acute Qualified Code(s): M86.171 - Other acute osteomyelitis, right ankle and foot (2) Renal failure Current Visit: No Status: Acute (3) Peripheral vascular disease due to secondary diabetes Current Visit: No Status: Acute 1. ISIDRO of BLE completed on 11/05/16: Right: 0.98 Left: 0.94 (4) Foot ulcer Current Visit: No Status: Chronic 1. Dressing changed to left foot, ulceration is partial thickness. Dressing changed at bedside. Significant improvement in ulceration to the left foot. No erythema, no pus, no odor, no erythema, no streaking. Scant amount of serous drainage observed to dressing. 2. Wound care orders to include cleansing ulcer of left foot daily with mild soap and water, pat dry, apply dry sterile 4x4 gauze with kerlix. Qualifiers: Laterality: right Non-pressure ulcer stage: with fat layer exposed Qualified Code(s): L97.512 - Non-pressure chronic ulcer of other part of right foot with fat layer exposed (5) Diabetes mellitus with neuropathy Current Visit: Yes Status: Chronic Qualifiers: Diabetes mellitus type: type 2 Diabetes mellitus terminal operations manager insulin use: with long-term use Qualified Code(s): E11.40 - Type 2 diabetes mellitus with diabetic neuropathy, unspecified; Z79.4 - residential (current) use of insulin Subjective Principal diagnosis: left long finger infection Interval history: Patient is s/p incision and drainage to bone cortex for osteomyelitis #5 metatarsal right, open amputation of toe #5 with metatarsal #5 right foot, application wound VAC by Dr. Pace on 11/06/16. Patient denies any pain in his feet, fever, chills, nausea, vomiting overnight. Patient states he did have diarrhea last night and both of his dressings on his feet were changed. Patient states he has not had any more diarrhea. Objective - Vital Signs Vital Signs: Vital Signs Temp Pulse Resp BP Pulse Ox 11/08/16 06:45 98.3 F 68 15 114/67 95 11/08/16 05:04 98.1 F 62 17 111/68 93 L 11/08/16 00:00 98.0 F 67 18 155/62 94 L 11/07/16 21:41 17 96 11/07/16 20:00 97.8 F 61 17 170/79 94 L 11/07/16 16:55 18 99 11/07/16 14:20 98.5 F 73 16 148/71 93 L 11/07/16 11:24 98.3 F 64 16 156/78 94 L Intake and Output 11/07/16 11/07/16 11/08/16 15:59 23:59 07:59 Intake Total 1650 / 1650 1974 / 1974 1300 / 1300 Output Total 1225 / 1225 850 / 850 275 / 275 Balance 425 / 425 1125 / 1125 1025 / 1025 Intake: IV Fluids 1100 / 1100 1100 / 1100 1000 / 1000 0.9 % Sodium Chloride 1, 1000 / 1000 1000 / 1000 1000 / 1000 000 ML @ 125 mls/hr IVC . Q8H ALEX Rx#:[id number] Zosyn 3.375 GM In 100 / 100 100 / 100 Dextrose 5% (Minibag+) 100 ML 100 ML @ 25 mls/hr IVPB Q8HR ALEX Rx#: [id number] Oral 550 / 550 875 / 875 300 / 300 Output: Urine 1225 / 1225 850 / 850 Catheter 275 / 275 Other: Stool Size Moderate Stool Consistency formed Stool Color Brown # Voids 1 Blood Glucose* [phone] - Exam Exam: General appearance: alert awake oriented X 3. Calm and pleasant, no acute distress.. Vascular: Pedal pulses 0/4 DP/PT , No evidence of cyanosis, pallor or rubor, Edema graded at 1+/4, Skin Temperature warm, No calf pain with manual compression. capillary refill time is immediate to digits. Neurologic: Sensation absent with light touch to both feet . Ulcer: Partial thickness ulceration to the left foot at the fifth metatarsal head plantar aspect measuring 1.8 cm in length x 1.8 cm in width. scant amount of serous drainage observed to dressing. No probe to bone, no odor, no erythema, no streaking, no fluctuance. Post op: Wound VAC intact to right foot with black sponge, 125 mmhg continuous suction, 20 cc of serosanguineous drainage observed to wound vac chamber. Light periwound erythema, no streaking, no lymphangitis, no purulent drainage, no fluctuance, no warmth. - Lab Result Diagrams: 11/08/16 06:25 11/08/16 06:25 Labs: Abnormal lab results WBC 12.2 K/mcL (4.3-11.1) H 11/08/16 06:25 RBC 2.72 M/mcL (4.19-5.50) L 11/08/16 06:25 Hgb 7.4 g/dL (12.9-16.9) L 11/08/16 06:25 Hct 22.8 % (37.5-50.1) L 11/08/16 06:25 MCH 27.2 pg (28.0-33.3) L 11/08/16 06:25 Plt Count 900 K/mcL (140-400) H 11/08/16 06:25 MPV 8.8 fL (9.4-12.4) L 11/08/16 06:25 Immature Gran % 4.7 % (0-4) H 11/08/16 06:25 Platelet Estimate Marked Increase (Normal) H 11/04/16 20:21 Immature Plt Fraction 1.0 % (1.1-6.1) L 11/08/16 06:25 ESR 86 mm/hr (0-10) H 11/04/16 20:24 Sodium 135 mEq/L (136-145) L 11/08/16 06:25 Potassium 4.8 mEq/L (3.5-4.5) H 11/08/16 06:25 Carbon Dioxide 17 mEq/L (19-29) L 11/08/16 06:25 BUN 47 mg/dL (8-26) H 11/08/16 06:25 Creatinine 2.61 mg/dL (0.72-1.25) H 11/08/16 06:25 Est GFR ( Amer) 30 (> 60) L 11/08/16 06:25 Est GFR (Non-Af Amer) 25 (> 60) L 11/08/16 06:25 Glucose 299 mg/dL (70-99) H 11/08/16 06:25 POC Glucose 264 (58-89) H 11/07/16 23:59 Calculated Osmolality 303 (280-300) H 11/08/16 06:25 Calcium 7.7 mg/dL (8.6-10.8) L 11/08/16 06:25 C-Reactive Protein 257 mg/L (Less than 5) H 11/04/16 20:21 Vancomycin Trough 24.7 mcg/mL (10-20) H* 11/07/16 10:31 Microbiology, Last 48 Hours 11/06/16 17:15 Surgical Biopsy Culture - Preliminary Right Foot Gram Negative Demond Gram Positive Cocci 11/06/16 17:15 Wound Culture - Preliminary Right Foot Gram Negative Demond Gram Positive Cocci Consult Discharge Plan - Plan Referrals: Luba Dorantes, PAC [Physician Tank Truck Engine Mechanic] - 11/20/16 11:40 am Mark Coe MD [Primary Care Provider] -
[2016-11-08] MEDS ORDERED: Vancomycin 1 EACH in EMPTY BAG 1 EACH IVPB SCH (09:00)
[2016-11-08] MEDS: Insulin DETEMIR 100 UNIT/ML X5UNITS SQ SCH ×2 (09:32→20:45)
[2016-11-08] MEDS: Lactobacillus 1 EACH CAP.SPRINK PO SCH ×2 (09:33→20:45)
[2016-11-08] MEDS: Cholecalciferol (D-3) 1,000 UNIT TABLET PO SCH (09:33)
[2016-11-08] MEDS: Aspirin Enteric Coated 81 MG Tablet PO SCH (09:33)
[2016-11-08] MEDS: predniSONE 20 MG TABLET PO SCH (09:33)
[2016-11-08] MEDS: Gabapentin 300 MG CAPSULE PO SCH ×3 (09:33→20:45)
[2016-11-08] MEDS: Pantoprazole 40 MG VIAL IVP SCH (09:34)
[2016-11-08] MEDS: Nicotine 21 MG PATCH.TD24 TD SCH (09:34)
[2016-11-08] MEDS: amLODIPine 5 MG TABLET PO SCH (09:34)
[2016-11-08] MEDS: Insulin LISPRO 300 UNITS/3 ML VIAL SQ SCH ×7 (09:48→20:46)
[2016-11-08] MEDS: *HR* Heparin 5,000 UNIT/ML VIAL SQ SCH (09:57)
[2016-11-08] MEDS ORDERED: Vancomycin 1,000 MG in D5% in Water 250 ML IVPB ONE (10:00)
--- NOTE | 2016-11-08 11:26 | Internal Med Progress Note ---
Date of Encounter: 11/08/16 Time of Encounter: 11:25 - Assessment and plan (1) Osteomyelitis Current Visit: Yes Status: Suspected Assessment and plan: Improving clinically. Leukocytosis is resolving. Continue IV antibiotics. Wound culture growing Proteus vulgaris is pansensitive and gram-positive cocci that appeared to be enterococcus. Will await final cultures for deciding on appropriate long-term antibiotics. Moderate risk for complications. Qualifiers: Osteomyelitis location: foot Laterality: right Chronicity: acute Qualified Code(s): M86.171 - Other acute osteomyelitis, right ankle and foot (2) Diabetic ulcer of both feet associated with type 2 diabetes mellitus Current Visit: Yes Status: Acute Assessment and plan: Blood sugars are still elevated but improving. Will further increase Levemir dosage. (3) Cellulitis of finger of left hand Current Visit: Yes Status: Acute Assessment and plan: Continues to improve. (4) CKD (chronic kidney disease) stage 3, GFR 30-59 ml/min Current Visit: Yes Status: Chronic Assessment and plan: Creatinine improving. (5) Diabetes mellitus with neuropathy Current Visit: Yes Status: Chronic Assessment and plan: Management as above Qualifiers: Diabetes mellitus type: type 2 Diabetes mellitus [facility] insulin use: with intermodal dispatcher use Qualified Code(s): E11.40 - Type 2 diabetes mellitus with diabetic neuropathy, unspecified; Z79.4 - oil heaterman (current) use of insulin (6) Peripheral vascular disease Current Visit: Yes Status: Chronic (7) COPD (chronic obstructive pulmonary disease) Current Visit: No Status: Chronic Assessment and plan: Taper steroids. Continue when necessary nebs. CT scan of the chest shows ground glass changes but no clear infiltrate. Incentive spirometry for atelectasis Qualifiers: COPD type: unspecified COPD Qualified Code(s): J44.9 - Chronic obstructive pulmonary disease, unspecified (8) Hypertension Current Visit: No Status: Chronic Assessment and plan: Controlled Qualifiers: Hypertension type: essential hypertension Qualified Code(s): I10 - Essential (primary) hypertension (9) Tobacco abuse Current Visit: No Status: Chronic - Subjective Interval history: Patient complaining of pain in his abdomen in the midabdominal region laterally at the site of subcutaneous injections. Pain worsens when he takes deep breaths. He is also having some back spasms. Denies any significant foot pain. No shortness of breath. No nausea or vomiting. No fever or chills or night sweats. - Constitutional Vitals: Temp Pulse Resp BP Pulse Ox 98.2 F 63 18 147/72 95 11/08/16 10:35 11/08/16 10:35 11/08/16 10:35 11/08/16 10:35 11/08/16 10:35 General appearance: Present: cooperative, A&O X 3, pleasant, obese, answers questions appropriately - Neck Neck exam general surgery: Present: supple, trachea midline. Absent: lymphadenopathy - Respiratory Respiratory exam: Present: CTAB. Absent: accessory muscle use, rales, rhonchi, wheezes - Cardiovascular Cardiovascular exam: Present: RRR, +S1, +S2. Absent: diastolic murmur, gallop, rubs, systolic murmur - GI/Abdominal GI/Abdominal exam: Present: normal bowel sounds, soft, tenderness (Left lumbar region in the abdominal wall. No erythema noted.), no peritoneal signs. Absent : distended - Extremities Exam Extremities exam: Present: warm, radial pulses palpable and symetrical. Absent : calf tenderness, cyanotic, pedal edema Additional comments: Both feet are currently bandaged. Wound VAC to right foot. - Neurological Exam Neurological exam: Present: CN II-XII intact, oriented X3, no focal deficits. Absent: pronater drift, facial droop, speech deficit - Skin Skin exam: Present: dry, intact Internal Medicine: Result - Labs CBC & Chem 7: 11/08/16 06:25 11/08/16 06:25 Labs: Short CBC 11/08/16 Range/Units 06:25 WBC 12.2 H (4.3-11.1) K/mcL Hgb 7.4 L (12.9-16.9) g/dL Hct 22.8 L (37.5-50.1) % Plt Count 900 H (140-400) K/mcL Neutrophils # 7.9 (1.6-8.9) K/mcL BMP 11/08/16 06:25 Sodium 135 L Potassium 4.8 H Chloride 107 Carbon Dioxide 17 L BUN 47 H Creatinine 2.61 H Glucose 299 H Calcium 7.7 L - Impressions Impressions Chest CT 11/08/16 10:00 IMPRESSION: Vague ground-glass densities identified within the right middle lobe and lingula which may represent atelectasis. However, an infectious/inflammatory process is a possibility. The exam is suboptimal secondary to respiratory motion artifact. Follow-up examination is suggested in 3 to 6 months to ensure resolution. D/ / 11/08/2016 11:14:41 Bin Evans MD / jose Interpreting Provider: Bin Evans MD Consult Discharge Plan - Plan Referrals: Luba Dorantes, PAC [Physician Blowing Engineer] - 11/20/16 11:40 am Mark Coe MD [Primary Care Provider] - - Attending Attestation This document has been at least partially created by [employer] recognition technology by Dr. Nieto. Errors in grammar, wording or other phrases may exist. If errors are found after the documentation is signed, they will be addressed individually in the addendum section of this document when appropriate.
[2016-11-08] MEDS: Tiotropium 18 MCG inhalation IH SCH (11:53)
[2016-11-08] MEDS: Budesonide/Formoterol 160/4.5 MDI IH SCH ×2 (11:53→21:59)
--- NOTE | 2016-11-08 17:12 | Orthopedics Progress Note ---
Date of Encounter: 11/08/16 Time of Encounter: 15:45 - Assessment and Plan (1) Cellulitis of finger of left hand Current Visit: Yes Status: Acute Only minimal swelling and erythema today and he has gained full ROM of finger now. Continue IV abx per hospitalist. PICC line placed yesterday with plan for at least 6 wks abx for foot, will cover finger infection as well. Continue to keep dressings on finger. Continue ROM of hand. Continue elevation of hand. Will f/up with Berna Valenzuela PA-C in [facility] office in 1 week from discharge. Subjective Principal diagnosis: left long finger infection Interval history: Patient feeling good with no complaints and no events overnight. No pain in finger. PICC line was placed yesterday. He has been working on ROM of finger. Objective Vital signs: Vital Signs Temp Pulse Resp BP Pulse Ox 11/08/16 14:11 98.5 F 68 17 151/76 94 L 11/08/16 11:53 16 91 L 11/08/16 10:35 98.2 F 63 18 147/72 95 11/08/16 09:00 95 11/08/16 06:45 98.3 F 68 15 114/67 95 11/08/16 05:04 98.1 F 62 17 111/68 93 L 11/08/16 00:00 98.0 F 67 18 155/62 94 L 11/07/16 21:41 17 96 11/07/16 20:00 97.8 F 61 17 170/79 94 L Intake and Output 11/08/16 11/08/16 11/08/16 07:59 15:59 23:59 Intake Total 1400 / 1400 720 / 720 100 / 100 Output Total 275 / 275 950 / 950 Balance 1125 / 1125 -230 / -230 100 / 100 Intake: IV Fluids 1100 / 1100 100 / 100 0.9 % Sodium Chloride 1, 1000 / 1000 000 ML @ 125 mls/hr IVC . Q8H ALEX Rx#:[id number] Zosyn 3.375 GM In 100 / 100 100 / 100 Dextrose 5% (Minibag+) 100 ML 100 ML @ 25 mls/hr IVPB Q8HR ALEX Rx#: [id number] Oral 300 / 300 720 / 720 Output: Urine 950 / 950 Catheter 275 / 275 Wound Drainage 0 / 0 Anterior Right Foot 0 / 0 Right Lateral Foot 0 / 0 Right Pinky Toe 0 / 0 Other: Meal Lunch Percent of Meal Consumed 100% Stool Size Moderate Stool Consistency loose Stool Color Brown Blood Glucose* [phone] Incision: healing (Minimal erythema and swelling, no open wounds, no drainage, full ROM of LF, NV intact, brisk cap refill) - Labs CBC & BMP: 11/08/16 06:25 11/08/16 06:25 Labs: Abnormal lab results WBC 12.2 K/mcL (4.3-11.1) H 11/08/16 06:25 RBC 2.72 M/mcL (4.19-5.50) L 11/08/16 06:25 Hgb 7.4 g/dL (12.9-16.9) L 11/08/16 06:25 Hct 22.8 % (37.5-50.1) L 11/08/16 06:25 MCH 27.2 pg (28.0-33.3) L 11/08/16 06:25 Plt Count 900 K/mcL (140-400) H 11/08/16 06:25 MPV 8.8 fL (9.4-12.4) L 11/08/16 06:25 Immature Gran % 4.7 % (0-4) H 11/08/16 06:25 Platelet Estimate Marked Increase (Normal) H 11/04/16 20:21 Immature Plt Fraction 1.0 % (1.1-6.1) L 11/08/16 06:25 ESR 86 mm/hr (0-10) H 11/04/16 20:24 Sodium 135 mEq/L (136-145) L 11/08/16 06:25 Potassium 4.8 mEq/L (3.5-4.5) H 11/08/16 06:25 Carbon Dioxide 17 mEq/L (19-29) L 11/08/16 06:25 BUN 47 mg/dL (8-26) H 11/08/16 06:25 Creatinine 2.61 mg/dL (0.72-1.25) H 11/08/16 06:25 Est GFR ( Amer) 30 (> 60) L 11/08/16 06:25 Est GFR (Non-Af Amer) 25 (> 60) L 11/08/16 06:25 Glucose 299 mg/dL (70-99) H 11/08/16 06:25 POC Glucose 264 (58-89) H 11/07/16 23:59 Calculated Osmolality 303 (280-300) H 11/08/16 06:25 Calcium 7.7 mg/dL (8.6-10.8) L 11/08/16 06:25 C-Reactive Protein 257 mg/L (Less than 5) H 11/04/16 20:21 Consult Discharge Plan - Plan Referrals: Luba Dorantes, OUSMANE [Physician Patient Portal Concierge] - 11/20/16 11:40 am Mark Coe MD [Primary Care Provider] -
[2016-11-08] MEDS: traZODone 50 MG TABLET PO SCH (20:44)
[2016-11-08] MEDS: rOPINIRole 1 MG TABLET PO SCH (20:45)
[2016-11-08] MEDS: Aspirin Enteric Coated 325 MG Tablet PO SCH (20:45)
[2016-11-09] MEDS: Albuterol 2.5 MG/3 ML NEBULIZER IH PRN ×3 (03:58→16:36)
[2016-11-09] MEDS ORDERED: Insulin DETEMIR 100 UNIT/ML X5UNITS SQ SCH (07:56)
[2016-11-09] MEDS: Insulin LISPRO 300 UNITS/3 ML VIAL SQ SCH ×7 (08:09→20:16)
[2016-11-09] MEDS: Pantoprazole 40 MG VIAL IVP SCH (08:19)
[2016-11-09] MEDS: Piperacillin/Tazobactam 3.375 GM in D5% in Water (Mini-Bag+) 100 ML IVPB SCH ×2 (08:22)
[2016-11-09] MEDS: Nicotine 21 MG PATCH.TD24 TD SCH (08:25)
[2016-11-09] MEDS: predniSONE 20 MG TABLET PO SCH (08:26)
[2016-11-09] MEDS: Cholecalciferol (D-3) 1,000 UNIT TABLET PO SCH (08:27)
[2016-11-09] MEDS: amLODIPine 5 MG TABLET PO SCH (08:27)
[2016-11-09] MEDS: Gabapentin 300 MG CAPSULE PO SCH ×3 (08:27→20:16)
[2016-11-09] MEDS: Aspirin Enteric Coated 325 MG Tablet PO SCH ×2 (08:27→20:16)
[2016-11-09] MEDS: Lactobacillus 1 EACH CAP.SPRINK PO SCH ×2 (08:28→20:16)
[2016-11-09] MEDS ORDERED: Aminoglycoside Consult 1 EACH MC ONE (09:16)
[2016-11-09] MEDS: Insulin DETEMIR 100 UNIT/ML X5UNITS SQ SCH ×2 (09:27→20:17)
[2016-11-09] MEDS ORDERED: Ampicillin/Sulbactam 3,000 MG in 0.9 % Sodium Chloride Mini Bag 100 ML IVPB SCH (09:44)
[2016-11-09] MEDS: Budesonide/Formoterol 160/4.5 MDI IH SCH ×2 (10:37→20:51)
[2016-11-09] MEDS: Tiotropium 18 MCG inhalation IH SCH (10:37)
[2016-11-09] MEDS ORDERED: 0.9 % Sodium Chloride 250 ML ONE (12:46)
[2016-11-09] MEDS: *HR* OxyCODONE Immed Rel 5 MG TABLET PO PRN ×2 (13:39→20:42)
--- NOTE | 2016-11-09 13:42 | Internal Med Progress Note ---
Date of Encounter: 11/09/16 Time of Encounter: 13:41 - Assessment and plan (1) Osteomyelitis of foot, right, acute Current Visit: Yes Status: Acute Assessment and plan: Wound culture positive for Proteus vulgaris and Enterococcus faecalis. Both are sensitive to ampicillin/sulbactam. Will change antibiotic to this. Patient will need 4-6 weeks of antibiotics intravenously. PICC line has been placed. (2) Diabetic ulcer of both feet associated with type 2 diabetes mellitus Current Visit: Yes Status: Acute (3) Cellulitis of finger of left hand Current Visit: Yes Status: Acute Assessment and plan: Improving. Follow up with orthopedics after discharge. (4) CKD (chronic kidney disease) stage 3, GFR 30-59 ml/min Current Visit: Yes Status: Chronic Assessment and plan: Dose antibiotics renally. Will follow renal function. (5) Diabetes mellitus with neuropathy Current Visit: Yes Status: Chronic Assessment and plan: Blood sugars are severely elevated today. Will increase insulin regimen further. Likely due to steroid use. Will decrease prednisone dosage. Qualifiers: Diabetes mellitus type: type 2 Diabetes mellitus jail insulin use: with exterminator termite use Qualified Code(s): E11.40 - Type 2 diabetes mellitus with diabetic neuropathy, unspecified; Z79.4 - manager long term care (current) use of insulin (6) Peripheral vascular disease Current Visit: Yes Status: Chronic (7) COPD (chronic obstructive pulmonary disease) Current Visit: No Status: Chronic Assessment and plan: Taper steroids. Continue nebs. Qualifiers: COPD type: unspecified COPD Qualified Code(s): J44.9 - Chronic obstructive pulmonary disease, unspecified (8) Hypertension Current Visit: Yes Status: Chronic Assessment and plan: Uncontrolled. We will increase amlodipine to 10 mg daily and add hydralazine 25 mg 4 times a day. Monitor blood pressure closely. High risk for complications due to use of intravenous medications to control blood pressure. Qualifiers: Hypertension type: essential hypertension Qualified Code(s): I10 - Essential (primary) hypertension (9) Tobacco abuse Current Visit: No Status: Chronic (10) Anemia Current Visit: Yes Status: Acute Assessment and plan: Hemoglobin 7.4 today. Has been trending downwards. Likely related to postsurgical blood loss and chronic anemia. Will transfuse 1 unit of packed red blood cells. Qualifiers: Anemia type: other cause Other causes of anemia: chronic disease, kidney Qualified Code(s): N18.9 - Chronic kidney disease, unspecified; D63.1 - Anemia in chronic kidney disease - Subjective Interval history: Patient complains of wheezing at this time. He has been receiving breathing treatments since this morning. He feels better after he receives nebulizers. Denies any chest pain. Pain in his leg is well controlled. - Constitutional Vitals: Temp Pulse Resp BP Pulse Ox 97.7 F 63 16 169/88 94 L 11/09/16 13:15 11/09/16 13:15 11/09/16 13:15 11/09/16 13:15 11/09/16 13:15 General appearance: Present: cooperative, A&O X 3, pleasant, obese, answers questions appropriately - Respiratory Respiratory exam: Present: CTAB. Absent: accessory muscle use, rales, rhonchi, wheezes - Cardiovascular Cardiovascular exam: Present: RRR, +S1, +S2. Absent: diastolic murmur, gallop, rubs, systolic murmur - GI/Abdominal GI/Abdominal exam: Present: normal bowel sounds, soft, no peritoneal signs. Absent: distended, tenderness - Extremities Exam Extremities exam: Present: warm, radial pulses palpable and symetrical. Absent : calf tenderness, cyanotic, pedal edema Additional comments: Cellulitis improving in his left hand. Right foot bandaged and with tall boot. - Neurological Exam Neurological exam: Present: alert, oriented X3, no focal deficits. Absent: facial droop, speech deficit Internal Medicine: Result - Labs CBC & Chem 7: 11/08/16 06:25 11/08/16 06:25 Consult Discharge Plan - Plan Referrals: Luba Dorantes PAC [Physician Vocational Guidance Counselor] - 11/20/16 11:40 am Mark Coe MD [Primary Care Provider] - - Attending Attestation This document has been at least partially created by [employer] recognition technology by Dr. Nieto. Errors in grammar, wording or other phrases may exist. If errors are found after the documentation is signed, they will be addressed individually in the addendum section of this document when appropriate.
[2016-11-09] MEDS: hydrALAZINE 25 MG TABLET PO SCH (17:43)
[2016-11-09] MEDS: Ampicillin/Sulbactam 3,000 MG in 0.9 % Sodium Chloride Mini Bag 100 ML IVPB SCH (17:44)
[2016-11-09] MEDS: traZODone 50 MG TABLET PO SCH (20:16)
[2016-11-09] MEDS: rOPINIRole 1 MG TABLET PO SCH (20:17)
[2016-11-10] MEDS: hydrALAZINE 25 MG TABLET PO SCH ×4 (00:57→17:08)
[2016-11-10] MEDS: Ampicillin/Sulbactam 3,000 MG in 0.9 % Sodium Chloride Mini Bag 100 ML IVPB SCH ×4 (00:57→17:07)
[2016-11-10] MEDS: *HR* OxyCODONE Immed Rel 5 MG TABLET PO PRN ×4 (01:02→21:16)
[2016-11-10 04:44] LABS: Basophils # 0.1 K/mcL (0.0-0.2); Basophils % 0.4 %; Eosinophils # 0.1 K/mcL (0.0-0.6); Eosinophils % 0.7 %; Hematocrit 26.8 % (37.5-50.1); Hemoglobin 8.7 g/dL (12.9-16.9); Immature Granulocytes % 8.2 % (0-4); Lymphocytes # 1.6 K/mcL (0.6-4.6); Lymphocytes % 10.7 %; Mean Corpuscular HGB Conc 32.5 g/dL (31.6-35.5); Mean Corpuscular Hemoglobin 27.2 pg (28.0-33.3); Mean Corpuscular Volume 83.8 fL (83.0-100.0); Mean Platelet Volume 8.7 fL (9.4-12.4); Monocytes # 0.8 K/mcL (0.0-1.3); Monocytes % 5.4 %; Neutrophils # 11.3 K/mcL (1.6-8.9); Nucleated Red Blood Cells 0.1 /100 WBC (0); Platelet Count 818 K/mcL (140-400); Red Cell Distribution Width 14.3 % (11.5-14.5); Segmented Neutrophils % 74.6 %
[2016-11-10 04:56] LABS: Calcium 8.4 mg/dL (8.6-10.8); Potassium 5.4 mEq/L (3.5-4.5)
[2016-11-10 05:35] LABS: Platelet Estimate Marked Increase (Normal)
[2016-11-10] MEDS: Insulin LISPRO 300 UNITS/3 ML VIAL SQ SCH ×7 (07:38→21:14)
[2016-11-10] MEDS: Nicotine 21 MG PATCH.TD24 TD SCH (07:41)
[2016-11-10] MEDS: Pantoprazole 40 MG VIAL IVP SCH (07:42)
[2016-11-10] MEDS: Cholecalciferol (D-3) 1,000 UNIT TABLET PO SCH (07:44)
[2016-11-10] MEDS: Lactobacillus 1 EACH CAP.SPRINK PO SCH ×2 (07:44→21:15)
[2016-11-10] MEDS: amLODIPine 5 MG TABLET PO SCH (07:45)
[2016-11-10] MEDS: predniSONE 20 MG TABLET PO SCH (07:45)
[2016-11-10] MEDS: Gabapentin 300 MG CAPSULE PO SCH ×3 (07:45→21:15)
[2016-11-10] MEDS: Aspirin Enteric Coated 325 MG Tablet PO SCH ×2 (07:46→21:16)
[2016-11-10] MEDS: Insulin DETEMIR 100 UNIT/ML X5UNITS SQ SCH ×2 (07:56→21:15)
[2016-11-10] MEDS: Albuterol 2.5 MG/3 ML NEBULIZER IH PRN ×2 (09:08→22:46)
[2016-11-10] MEDS: Budesonide/Formoterol 160/4.5 MDI IH SCH ×2 (09:09→22:46)
[2016-11-10] MEDS: Tiotropium 18 MCG inhalation IH SCH (09:09)
--- NOTE | 2016-11-10 11:06 | Internal Med Progress Note ---
Date of Encounter: 11/10/16 Time of Encounter: 09:45 - Assessment and plan (1) Osteomyelitis of foot, right, acute Current Visit: Yes Status: Acute Assessment and plan: Continue Unasyn. For 4-6 weeks. Follow up outpatient with podiatry after discharge. Awaiting placement to skilled rehabilitation (2) Diabetic ulcer of both feet associated with type 2 diabetes mellitus Current Visit: Yes Status: Acute (3) Cellulitis of finger of left hand Current Visit: Yes Status: Acute Assessment and plan: Improving. Continue antibiotic. Follow up outpatient with orthopedics after discharge. (4) CKD (chronic kidney disease) stage 3, GFR 30-59 ml/min Current Visit: Yes Status: Chronic (5) Diabetes mellitus with neuropathy Current Visit: Yes Status: Chronic Assessment and plan: Blood sugars improved compared to yesterday. Still elevated. We will increase his long-acting insulin further. Qualifiers: Diabetes mellitus type: type 2 Diabetes mellitus skilled nursing insulin use: with terminal supervisor use Qualified Code(s): E11.40 - Type 2 diabetes mellitus with diabetic neuropathy, unspecified; Z79.4 - longterm (current) use of insulin (6) Peripheral vascular disease Current Visit: Yes Status: Chronic (7) COPD (chronic obstructive pulmonary disease) Current Visit: No Status: Chronic Assessment and plan: Continue steroid taper. Continue nebs when necessary Qualifiers: COPD type: unspecified COPD Qualified Code(s): J44.9 - Chronic obstructive pulmonary disease, unspecified (8) Hypertension Current Visit: Yes Status: Chronic Qualifiers: Hypertension type: essential hypertension Qualified Code(s): I10 - Essential (primary) hypertension (9) Tobacco abuse Current Visit: No Status: Chronic (10) Anemia Current Visit: Yes Status: Acute Assessment and plan: Hemoglobin 8.7 today. Improved after transfusion. Qualifiers: Anemia type: other cause Other causes of anemia: chronic disease, kidney Qualified Code(s): N18.9 - Chronic kidney disease, unspecified; D63.1 - Anemia in chronic kidney disease - Subjective Interval history: Patient is continuing to do well. Denies any new complaints at this time. Pain in his right foot is well controlled. Shortness of breath is improved. No chest pain reported. - Constitutional Vitals: Temp Pulse Resp BP Pulse Ox 97.9 F 68 20 175/79 96 11/10/16 10:59 11/10/16 10:59 11/10/16 10:59 11/10/16 10:59 11/10/16 10:59 General appearance: Present: cooperative, A&O X 3, pleasant, obese, answers questions appropriately - Respiratory Respiratory exam: Present: CTAB. Absent: accessory muscle use, rales, rhonchi, wheezes - GI/Abdominal GI/Abdominal exam: Present: normal bowel sounds, soft, no peritoneal signs. Absent: distended, tenderness - Extremities Exam Extremities exam: Present: warm, radial pulses palpable and symetrical. Absent : calf tenderness, cyanotic, pedal edema Additional comments: Left hand middle finger cellulitis is improving. - Neurological Exam Neurological exam: Present: CN II-XII intact, oriented X3, no focal deficits. Absent: facial droop, speech deficit - Skin Skin exam: Present: dry, intact Internal Medicine: Result - Labs CBC & Chem 7: 11/10/16 04:30 11/10/16 04:30 Labs: Short CBC 11/10/16 Range/Units 04:30 WBC 15.2 H (4.3-11.1) K/mcL Hgb 8.7 L (12.9-16.9) g/dL Hct 26.8 L (37.5-50.1) % Plt Count 818 H (140-400) K/mcL Neutrophils # 11.3 H (1.6-8.9) K/mcL BMP 11/10/16 04:30 Sodium 134 L Potassium 5.4 H Chloride 107 Carbon Dioxide 17 L BUN 50 H Creatinine 2.28 H Glucose 269 H Calcium 8.4 L - Impressions Impressions Hand X-Ray 11/05/16 08:36 IMPRESSION: 1. Diffuse soft tissue swelling of 3rd digit without acute osseous abnormality. 2. Deformities of the 4th and 5th digits with persistent flexion of the PIP joints and hyperextension of the 4th DIP joint. 3. Questionable erosion at the DIP joint of the 2nd digit. D/ / 11/05/2016 09:20:02 Emelia Solis MD / adonis Interpreting Provider: Emelia Solis MD Consult Discharge Plan - Plan Referrals: Luba Dorantes, PAC [Physician Opticianry Teacher] - 11/20/16 11:40 am Mark Coe MD [Primary Care Provider] -
[2016-11-10] MEDS: rOPINIRole 1 MG TABLET PO SCH (21:15)
[2016-11-10] MEDS: traZODone 50 MG TABLET PO SCH (21:15)
[2016-11-11] MEDS: hydrALAZINE 25 MG TABLET PO SCH ×5 (00:53→23:53)
[2016-11-11] MEDS: Ampicillin/Sulbactam 3,000 MG in 0.9 % Sodium Chloride Mini Bag 100 ML IVPB SCH ×5 (00:54→23:53)
[2016-11-11 04:28] LABS: Calcium 8.7 mg/dL (8.6-10.8); Potassium 4.9 mEq/L (3.5-4.5)
[2016-11-11] MEDS: predniSONE 20 MG TABLET PO SCH (08:00)
[2016-11-11] MEDS: Aspirin Enteric Coated 325 MG Tablet PO SCH ×2 (08:00→21:06)
[2016-11-11] MEDS: Lactobacillus 1 EACH CAP.SPRINK PO SCH ×2 (08:00→21:06)
[2016-11-11] MEDS: Gabapentin 300 MG CAPSULE PO SCH ×3 (08:00→21:06)
[2016-11-11] MEDS: Cholecalciferol (D-3) 1,000 UNIT TABLET PO SCH (08:01)
[2016-11-11] MEDS: amLODIPine 5 MG TABLET PO SCH (08:01)
[2016-11-11] MEDS: Insulin DETEMIR 100 UNIT/ML X5UNITS SQ SCH ×2 (08:02→21:07)
[2016-11-11] MEDS: Nicotine 21 MG PATCH.TD24 TD SCH (08:02)
[2016-11-11] MEDS: *HR* OxyCODONE Immed Rel 5 MG TABLET PO PRN ×5 (08:02→18:29)
[2016-11-11] MEDS: Insulin LISPRO 300 UNITS/3 ML VIAL SQ SCH ×7 (08:03→21:08)
[2016-11-11] MEDS: Tiotropium 18 MCG inhalation IH SCH (08:29)
[2016-11-11] MEDS: Budesonide/Formoterol 160/4.5 MDI IH SCH ×2 (08:31→20:22)
--- NOTE | 2016-11-11 10:39 | Internal Med Progress Note ---
Date of Encounter: 11/11/16 Time of Encounter: 10:15 - Assessment and plan (1) Osteomyelitis of foot, right, acute Current Visit: Yes Status: Acute Assessment and plan: On Unasyn. We will continue. Awaiting placement to skilled rehabilitation (2) Diabetic ulcer of both feet associated with type 2 diabetes mellitus Current Visit: Yes Status: Acute (3) Cellulitis of finger of left hand Current Visit: Yes Status: Acute Assessment and plan: Stable. Follow up with orthopedics as outpatient. (4) CKD (chronic kidney disease) stage 3, GFR 30-59 ml/min Current Visit: Yes Status: Chronic Assessment and plan: Stable renal function. (5) Diabetes mellitus with neuropathy Current Visit: Yes Status: Chronic Assessment and plan: Uncontrolled. Will further increase insulin regimen. Continue to monitor blood sugars. Qualifiers: Diabetes mellitus type: type 2 Diabetes mellitus exterminator termite insulin use: with fpc use Qualified Code(s): E11.40 - Type 2 diabetes mellitus with diabetic neuropathy, unspecified; Z79.4 - [facility] (current) use of insulin (6) Peripheral vascular disease Current Visit: Yes Status: Chronic (7) COPD (chronic obstructive pulmonary disease) Current Visit: No Status: Chronic Assessment and plan: Taper steroids. Continue nebs. Qualifiers: COPD type: unspecified COPD Qualified Code(s): J44.9 - Chronic obstructive pulmonary disease, unspecified (8) Hypertension Current Visit: Yes Status: Chronic Assessment and plan: Uncontrolled. On amlodipine, carvedilol and hydralazine. We will increase carvedilol dosage. Qualifiers: Hypertension type: essential hypertension Qualified Code(s): I10 - Essential (primary) hypertension (9) Tobacco abuse Current Visit: No Status: Chronic (10) Anemia Current Visit: Yes Status: Acute Assessment and plan: Stable. Qualifiers: Anemia type: other cause Other causes of anemia: chronic disease, kidney Qualified Code(s): N18.9 - Chronic kidney disease, unspecified; D63.1 - Anemia in chronic kidney disease - Subjective Interval history: Patient is continuing to do well. Denies any new complaints at this time. Pain in his right foot is well controlled. Shortness of breath is improved. No chest pain reported. - Constitutional Vitals: Temp Pulse Resp BP Pulse Ox 97.5 F L 74 18 176/77 97 11/11/16 06:44 11/11/16 06:44 11/11/16 08:33 11/11/16 06:44 11/11/16 08:33 General appearance: Present: cooperative, A&O X 3, pleasant, obese, answers questions appropriately - Respiratory Respiratory exam: Present: CTAB. Absent: accessory muscle use, rales, rhonchi, wheezes - Cardiovascular Cardiovascular exam: Present: RRR, +S1, +S2. Absent: diastolic murmur, gallop, rubs, systolic murmur - GI/Abdominal GI/Abdominal exam: Present: normal bowel sounds, soft, no peritoneal signs. Absent: distended, tenderness - Neurological Exam Neurological exam: Present: alert, oriented X3, no focal deficits. Absent: facial droop, speech deficit Internal Medicine: Result - Labs CBC & Chem 7: 11/10/16 04:30 11/11/16 04:00 Labs: BMP 11/11/16 04:00 Sodium 138 Potassium 4.9 H Chloride 109 Carbon Dioxide 19 BUN 48 H Creatinine 2.07 H Glucose 251 H Calcium 8.7 Consult Discharge Plan - Plan Referrals: Luba Dorantse, PAC [Physician Flame Brazing Machine Operator] - 11/20/16 11:40 am Mark Coe MD [Primary Care Provider] - - Attending Attestation This document has been at least partially created by [employer] recognition technology by Dr. Nieto. Errors in grammar, wording or other phrases may exist. If errors are found after the documentation is signed, they will be addressed individually in the addendum section of this document when appropriate.
[2016-11-11] MEDS ORDERED: Insulin DETEMIR 100 UNIT/ML X5UNITS SQ SCH (11:00)
[2016-11-11] MEDS: Albuterol 2.5 MG/3 ML NEBULIZER IH PRN ×2 (11:14→20:22)
[2016-11-11 14:51] LABS: Eosinophils # 0.2 K/mcL (0.0-0.6); Hematocrit 29.2 % (37.5-50.1); Hemoglobin 9.5 g/dL (12.9-16.9); Immature Platelets 0.8 % (1.1-6.1); Mean Corpuscular HGB Conc 32.5 g/dL (31.6-35.5); Mean Corpuscular Hemoglobin 27.7 pg (28.0-33.3); Mean Corpuscular Volume 85.1 fL (83.0-100.0); Mean Platelet Volume 8.5 fL (9.4-12.4); Nucleated Red Blood Cells 0.1 /100 WBC (0); Platelet Count 954 K/mcL (140-400); Red Blood Count 3.43 M/mcL (4.19-5.50); Red Cell Distribution Width 14.9 % (11.5-14.5)
[2016-11-11 15:10] LABS: Lymphocytes # 1.4 K/mcL (0.6-4.6); Monocytes # 0.6 K/mcL (0.0-1.3); Neutrophils # 12.4 K/mcL (1.6-8.9)
[2016-11-11 15:11] LABS: Polychromasia 1+ (Not Present)
[2016-11-11 15:12] LABS: Platelet Estimate Marked Increase (Normal)
--- NOTE | 2016-11-11 16:56 | Podiatry Progress Note ---
Date of Encounter: 11/11/16 Time of Encounter: 16:53 - Assessment and Plan (1) Diabetic ulcer of both feet associated with type 2 diabetes mellitus Current Visit: Yes Status: Acute At this time I ordered a CBC due to the increase in white blood cell count noted yesterday. If the white blood cell count continues to increase we will consider a change in the plan of care. For the time being we will continue changing the wound VAC and administering IV antibiotics. The wound VAC will be changed later today. Subjective Principal diagnosis: Foot infection Interval history: Patient has no new complaints. Patient relates that both feet feel better and have not had any increase in pain. Patient relates that typically they are numb anyway. Patient denies any fever or chills. Objective - Vital Signs Vital Signs: Vital Signs Temp Pulse Resp BP Pulse Ox 11/11/16 14:52 97.4 F L 76 16 194/79 95 11/11/16 11:16 16 100 11/11/16 11:06 97.5 F L 72 16 179/55 96 11/11/16 08:33 18 97 11/11/16 07:28 100 11/11/16 06:44 97.5 F L 74 16 176/77 94 L 11/11/16 03:46 97.5 F L 76 18 160/65 95 11/11/16 00:59 181/77 11/10/16 23:44 97.3 F L 65 16 156/73 92 L 11/10/16 22:46 16 97 11/10/16 19:11 97.4 F L 71 18 174/68 95 Intake and Output 11/11/16 11/11/16 11/11/16 07:59 15:59 23:59 Intake Total 800 / 800 580 / 580 Output Total 500 / 500 Balance 300 / 300 580 / 580 Intake: IV Fluids 200 / 200 100 / 100 Unasyn 3,000 MG In 0.9 % 200 / 200 100 / 100 Sodium Chloride (Mini-Bag +) 100 ML @ 200 mls/hr IVPB Q6H [facility] Rx#: [id number] Oral 600 / 600 480 / 480 Output: Urine 500 / 500 Other: Meal Lunch Percent of Meal Consumed 100% # Voids 1 1 Weight 109 kg Blood Glucose* 373 350 259 Patient Weight 11/11/16 23:59 Weight 109 kg - Exam Exam: Wound VAC intact to the right lower extremity. No new wounds noted. The wound on the left foot appears to be healing well with mild serous drainage. No new vascular changes or neurologic changes noted. - Lab Result Diagrams: 11/11/16 14:40 11/11/16 04:00 Labs: Abnormal lab results WBC 15.1 K/mcL (4.3-11.1) H 11/11/16 14:40 RBC 3.43 M/mcL (4.19-5.50) L 11/11/16 14:40 Hgb 9.5 g/dL (12.9-16.9) L 11/11/16 14:40 Hct 29.2 % (37.5-50.1) L 11/11/16 14:40 MCH 27.7 pg (28.0-33.3) L 11/11/16 14:40 RDW 14.9 % (11.5-14.5) H 11/11/16 14:40 Plt Count 954 K/mcL (140-400) H 11/11/16 14:40 MPV 8.5 fL (9.4-12.4) L 11/11/16 14:40 Immature Gran % 8.2 % (0-4) H 11/10/16 04:30 Metamyelocytes % 4.0 % (0) H 11/11/16 14:40 Neutrophils # 12.4 K/mcL (1.6-8.9) H 11/11/16 14:40 Nucleated RBCs/100 WBC 0.1 /100 WBC (0) H 11/11/16 14:40 Platelet Estimate Marked Increase (Normal) H 11/11/16 14:40 Immature Plt Fraction 0.8 % (1.1-6.1) L 11/11/16 14:40 Polychromasia 1+ (Not Present) A 11/11/16 14:40 ESR 86 mm/hr (0-10) H 11/04/16 20:24 Potassium 4.9 mEq/L (3.5-4.5) H 11/11/16 04:00 BUN 48 mg/dL (8-26) H 11/11/16 04:00 Creatinine 2.07 mg/dL (0.72-1.25) H 11/11/16 04:00 Est GFR ( Amer) 40 (> 60) L 11/11/16 04:00 Est GFR (Non-Af Amer) 33 (> 60) L 11/11/16 04:00 Glucose 251 mg/dL (70-99) H 11/11/16 04:00 POC Glucose 350 (58-89) H 11/11/16 11:09 Calculated Osmolality 307 (280-300) H 11/11/16 04:00 C-Reactive Protein 257 mg/L (Less than 5) H 11/04/16 20:21 Microbiology, Last 48 Hours 11/06/16 17:15 Surgical Biopsy Culture - Final Right Foot Proteus vulgaris Enterococcus faecalis 11/06/16 17:15 Anaerobic Culture - Preliminary Right Foot No anaerobes were recovered. Consult Discharge Plan - Plan Referrals: Luba Dorantes, OUSMANE [Physician Client Services Vice President] - 11/20/16 11:40 am Mark Coe MD [Primary Care Provider] -
--- NOTE | 2016-11-11 17:00 | Podiatry Progress Note ---
Date of Encounter: 11/10/16 Time of Encounter: 20:58 - Assessment and Plan (1) Diabetic ulcer of both feet associated with type 2 diabetes mellitus Current Visit: Yes Status: Acute We will monitor his white blood cell count tomorrow to see if it is trending upward and consider a possible change in the plan of care if needed. Today the wound VAC was not changed and will be changed tomorrow. Subjective Principal diagnosis: Foot infection Interval history: Patient has no new complaints. Patient relates that both feet feel better and have not had any increase in pain. Patient relates that typically they are numb anyway. Patient denies any fever or chills. Objective - Vital Signs Vital Signs: Vital Signs Temp Pulse Resp BP Pulse Ox 11/11/16 14:52 97.4 F L 76 16 194/79 95 11/11/16 11:16 16 100 11/11/16 11:06 97.5 F L 72 16 179/55 96 11/11/16 08:33 18 97 11/11/16 07:28 100 11/11/16 06:44 97.5 F L 74 16 176/77 94 L 11/11/16 03:46 97.5 F L 76 18 160/65 95 11/11/16 00:59 181/77 11/10/16 23:44 97.3 F L 65 16 156/73 92 L 11/10/16 22:46 16 97 11/10/16 19:11 97.4 F L 71 18 174/68 95 Intake and Output 11/11/16 11/11/16 11/11/16 07:59 15:59 23:59 Intake Total 800 / 800 580 / 580 Output Total 500 / 500 Balance 300 / 300 580 / 580 Intake: IV Fluids 200 / 200 100 / 100 Unasyn 3,000 MG In 0.9 % 200 / 200 100 / 100 Sodium Chloride (Mini-Bag +) 100 ML @ 200 mls/hr IVPB Q6H [facility] Rx#: [id number] Oral 600 / 600 480 / 480 Output: Urine 500 / 500 Other: Meal Lunch Percent of Meal Consumed 100% # Voids 1 1 Weight 109 kg Blood Glucose* 373 350 259 Patient Weight 11/11/16 23:59 Weight 109 kg - Exam Exam: The wound VAC is intact to the right lower extremity. The wound on the left lower extremity appears to be healing without any signs of complication. There is mild serous drainage noted from the left lower extremity. No increased erythema noted today. Neurovascular status unchanged. - Lab Result Diagrams: 11/11/16 14:40 11/11/16 04:00 Labs: Abnormal lab results WBC 15.1 K/mcL (4.3-11.1) H 11/11/16 14:40 RBC 3.43 M/mcL (4.19-5.50) L 11/11/16 14:40 Hgb 9.5 g/dL (12.9-16.9) L 11/11/16 14:40 Hct 29.2 % (37.5-50.1) L 11/11/16 14:40 MCH 27.7 pg (28.0-33.3) L 11/11/16 14:40 RDW 14.9 % (11.5-14.5) H 11/11/16 14:40 Plt Count 954 K/mcL (140-400) H 11/11/16 14:40 MPV 8.5 fL (9.4-12.4) L 11/11/16 14:40 Immature Gran % 8.2 % (0-4) H 11/10/16 04:30 Metamyelocytes % 4.0 % (0) H 11/11/16 14:40 Neutrophils # 12.4 K/mcL (1.6-8.9) H 11/11/16 14:40 Nucleated RBCs/100 WBC 0.1 /100 WBC (0) H 11/11/16 14:40 Platelet Estimate Marked Increase (Normal) H 11/11/16 14:40 Immature Plt Fraction 0.8 % (1.1-6.1) L 11/11/16 14:40 Polychromasia 1+ (Not Present) A 11/11/16 14:40 ESR 86 mm/hr (0-10) H 11/04/16 20:24 Potassium 4.9 mEq/L (3.5-4.5) H 11/11/16 04:00 BUN 48 mg/dL (8-26) H 11/11/16 04:00 Creatinine 2.07 mg/dL (0.72-1.25) H 11/11/16 04:00 Est GFR ( Amer) 40 (> 60) L 11/11/16 04:00 Est GFR (Non-Af Amer) 33 (> 60) L 11/11/16 04:00 Glucose 251 mg/dL (70-99) H 11/11/16 04:00 POC Glucose 350 (58-89) H 11/11/16 11:09 Calculated Osmolality 307 (280-300) H 11/11/16 04:00 C-Reactive Protein 257 mg/L (Less than 5) H 11/04/16 20:21 Microbiology, Last 48 Hours 11/06/16 17:15 Surgical Biopsy Culture - Final Right Foot Proteus vulgaris Enterococcus faecalis 11/06/16 17:15 Anaerobic Culture - Preliminary Right Foot No anaerobes were recovered. Consult Discharge Plan - Plan Referrals: Luba Dorantes, PAC [Physician Quality Rn] - 11/20/16 11:40 am Mark Coe MD [Primary Care Provider] -
[2016-11-11] MEDS: *HR* Morphine 2 MG/ML SYRINGE IVP PRN ×2 (18:31→19:36)
[2016-11-11] MEDS: traZODone 50 MG TABLET PO SCH (21:06)
[2016-11-11] MEDS: rOPINIRole 1 MG TABLET PO SCH (21:07)
[2016-11-12] MEDS: Ampicillin/Sulbactam 3,000 MG in 0.9 % Sodium Chloride Mini Bag 100 ML IVPB SCH ×4 (04:52→23:25)
[2016-11-12] MEDS: hydrALAZINE 25 MG TABLET PO SCH ×4 (04:53→23:26)
[2016-11-12 05:06] LABS: Hematocrit 28.2 % (37.5-50.1); Hemoglobin 9.1 g/dL (12.9-16.9); Immature Platelets 0.7 % (1.1-6.1); Mean Corpuscular HGB Conc 32.3 g/dL (31.6-35.5); Mean Corpuscular Hemoglobin 27.6 pg (28.0-33.3); Mean Corpuscular Volume 85.5 fL (83.0-100.0); Mean Platelet Volume 8.6 fL (9.4-12.4); Nucleated Red Blood Cells 0.1 /100 WBC (0); Platelet Count 883 K/mcL (140-400); Red Cell Distribution Width 14.9 % (11.5-14.5)
[2016-11-12] MEDS: *HR* OxyCODONE Immed Rel 5 MG TABLET PO PRN (05:12)
[2016-11-12 05:19] LABS: Calcium 8.4 mg/dL (8.6-10.8); Potassium 5.8 mEq/L (3.5-4.5)
[2016-11-12 05:35] LABS: Lymphocytes # 1.9 K/mcL (0.6-4.6); Monocytes # 0.3 K/mcL (0.0-1.3); Neutrophils # 12.4 K/mcL (1.6-8.9)
[2016-11-12 05:37] LABS: Platelet Estimate Marked Increase (Normal); Polychromasia 1+ (Not Present)
--- NOTE | 2016-11-12 08:10 | Podiatry Progress Note ---
Date of Encounter: 11/12/16 Time of Encounter: 06:50 - Assessment and Plan (1) Renal failure Current Visit: No Status: Acute (2) Peripheral vascular disease due to secondary diabetes Current Visit: No Status: Acute 1. ISIDRO of BLE completed on 11/05/16: Right: 0.98 Left: 0.94 (3) Foot ulcer Current Visit: No Status: Chronic 1. Dressing changed to left foot, ulceration is partial thickness. Dressing changed at bedside. Significant improvement in ulceration to the left foot. No erythema, no pus, no odor, no erythema, no streaking. Scant amount of serous drainage observed to dressing. 2. Wound care orders to include cleansing ulcer of left foot daily with mild soap and water, pat dry, apply dry sterile 4x4 gauze with kerlix. Qualifiers: Laterality: right Non-pressure ulcer stage: with fat layer exposed Qualified Code(s): L97.512 - Non-pressure chronic ulcer of other part of right foot with fat layer exposed (4) Diabetes mellitus with neuropathy Current Visit: Yes Status: Chronic Qualifiers: Diabetes mellitus type: type 2 Diabetes mellitus custodial insulin use: with custodial use Qualified Code(s): E11.40 - Type 2 diabetes mellitus with diabetic neuropathy, unspecified; Z79.4 - senior care (current) use of insulin Subjective Principal diagnosis: Foot infection Interval history: Patient is s/p incision and drainage to bone cortex for osteomyelitis #5 metatarsal right, open amputation of toe #5 with metatarsal #5 right foot, application wound VAC by Dr. Pace on 11/06/16. Patient denies any pain in his feet, fever, chills, nausea, vomiting overnight. Per nurse patients wound vac was changed yesterday 11/11/16. Objective - Vital Signs Vital Signs: Vital Signs Temp Pulse Resp BP Pulse Ox 11/12/16 07:22 97.5 F L 75 16 182/83 93 L 11/12/16 03:16 97.5 F L 97 15 177/66 97 11/11/16 23:29 97.3 F L 67 17 172/72 95 11/11/16 20:22 16 95 11/11/16 20:00 95 11/11/16 19:49 97.5 F L 72 16 188/82 72 L 11/11/16 14:52 97.4 F L 76 16 194/79 95 02/05/17 11:16 16 100 11/11/16 11:06 97.5 F L 72 16 179/55 96 11/11/16 08:33 18 97 Intake and Output 11/11/16 11/12/16 11/12/16 23:59 07:59 15:59 Intake Total 750 / 750 100 / 100 Output Total 0 / 0 600 / 600 Balance 750 / 750 -500 / -500 Intake: IV Fluids 100 / 100 100 / 100 Unasyn 3,000 MG In 0.9 % 100 / 100 100 / 100 Sodium Chloride (Mini-Bag +) 100 ML @ 200 mls/hr IVPB Q6H [facility] Rx#: [id number] Oral 650 / 650 0 / 0 Output: Urine 0 / 0 600 / 600 Wound Drainage 0 / 0 Right Lateral Foot 0 / 0 Other: Weight 109.089 kg Blood Glucose* 217 341 Patient Weight 11/12/16 23:59 Weight 109.089 kg - Exam Exam: General appearance: alert awake oriented X 3. Calm and pleasant, no acute distress.. Vascular: Pedal pulses 0/4 DP/PT , No evidence of cyanosis, pallor or rubor, Edema graded at 1+/4, Skin Temperature warm, No calf pain with manual compression. capillary refill time is immediate to digits. Neurologic: Sensation absent with light touch to both feet . Ulcer: Partial thickness ulceration to the left foot at the fifth metatarsal head plantar aspect measuring 1.8 cm in length x 1.8 cm in width. scant amount of serous drainage observed to dressing. No probe to bone, no odor, no erythema, no streaking, no fluctuance. Post op: Wound VAC intact to right foot with black sponge, 125 mmhg continuous suction, 15 cc of serosanguineous drainage observed to wound vac chamber. Light periwound erythema, no streaking, no lymphangitis, no purulent drainage, no fluctuance, no warmth. - Lab Result Diagrams: 11/12/16 05:00 11/12/16 05:00 Labs: Abnormal lab results WBC 14.9 K/mcL (4.3-11.1) H 11/12/16 05:00 RBC 3.30 M/mcL (4.19-5.50) L 11/12/16 05:00 Hgb 9.1 g/dL (12.9-16.9) L 11/12/16 05:00 Hct 28.2 % (37.5-50.1) L 11/12/16 05:00 MCH 27.6 pg (28.0-33.3) L 11/12/16 05:00 RDW 14.9 % (11.5-14.5) H 11/12/16 05:00 Plt Count 883 K/mcL (140-400) H 11/12/16 05:00 MPV 8.6 fL (9.4-12.4) L 11/12/16 05:00 Immature Gran % 8.2 % (0-4) H 11/10/16 04:30 Metamyelocytes % 4.0 % (0) H 11/11/16 14:40 Myelocytes % 2.0 % (0) H 11/12/16 05:00 Neutrophils # 12.4 K/mcL (1.6-8.9) H 11/12/16 05:00 Nucleated RBCs/100 WBC 0.1 /100 WBC (0) H 11/12/16 05:00 Platelet Estimate Marked Increase (Normal) H 11/12/16 05:00 Immature Plt Fraction 0.7 % (1.1-6.1) L 11/12/16 05:00 Polychromasia 1+ (Not Present) A 11/12/16 05:00 ESR 86 mm/hr (0-10) H 11/04/16 20:24 Potassium 5.8 mEq/L (3.5-4.5) H 11/12/16 05:00 Chloride 110 mEq/L (98-109) H 11/12/16 05:00 BUN 55 mg/dL (8-26) H 11/12/16 05:00 Creatinine 2.10 mg/dL (0.72-1.25) H 11/12/16 05:00 Est GFR ( Amer) 39 (> 60) L 11/12/16 05:00 Est GFR (Non-Af Amer) 32 (> 60) L 11/12/16 05:00 Glucose 363 mg/dL (70-99) H 11/12/16 05:00 POC Glucose 217 (58-89) H 11/11/16 19:46 Calculated Osmolality 316 (280-300) H 11/12/16 05:00 Calcium 8.4 mg/dL (8.6-10.8) L 11/12/16 05:00 C-Reactive Protein 257 mg/L (Less than 5) H 11/04/16 20:21 Microbiology, Last 48 Hours 11/06/16 17:15 Surgical Biopsy Culture - Final Right Foot Proteus vulgaris Enterococcus faecalis 11/06/16 17:15 Anaerobic Culture - Preliminary Right Foot No anaerobes were recovered. Consult Discharge Plan - Plan Referrals: Luba Dorantes PAC [Physician Electrician Supervisor Substation] - 11/20/16 11:40 am Mark Coe MD [Primary Care Provider] -
[2016-11-12] MEDS: Insulin LISPRO 300 UNITS/3 ML VIAL SQ SCH ×7 (08:56→21:07)
[2016-11-12] MEDS: Aspirin Enteric Coated 325 MG Tablet PO SCH ×2 (08:57→21:05)
[2016-11-12] MEDS: Nicotine 21 MG PATCH.TD24 TD SCH (08:57)
[2016-11-12] MEDS: Gabapentin 300 MG CAPSULE PO SCH ×3 (08:58→21:05)
[2016-11-12] MEDS: Lactobacillus 1 EACH CAP.SPRINK PO SCH ×2 (08:58→21:05)
[2016-11-12] MEDS: predniSONE 20 MG TABLET PO SCH (08:58)
[2016-11-12] MEDS: Cholecalciferol (D-3) 1,000 UNIT TABLET PO SCH (08:58)
[2016-11-12] MEDS: amLODIPine 5 MG TABLET PO SCH (08:58)
[2016-11-12] MEDS: Insulin DETEMIR 100 UNIT/ML X5UNITS SQ SCH ×2 (09:11→21:06)
--- NOTE | 2016-11-12 10:26 | Internal Med Progress Note ---
Date of Encounter: 11/12/16 Time of Encounter: 08:35 - Assessment and plan (1) Osteomyelitis of foot, right, acute Current Visit: Yes Status: Acute Assessment and plan: On IV antibiotics. Will complete 4-6 week treatment course with intravenous antibiotics. WBC count is better today. Elevated due to prednisone use. Continue local wound care. Follow up with podiatry after discharge. (2) Diabetic ulcer of both feet associated with type 2 diabetes mellitus Current Visit: Yes Status: Acute (3) Cellulitis of finger of left hand Current Visit: Yes Status: Acute Assessment and plan: Continue IV antibiotic. Follow up with orthopedics after discharge. (4) CKD (chronic kidney disease) stage 3, GFR 30-59 ml/min Current Visit: Yes Status: Chronic Assessment and plan: Renal function stable overall. We will consult nephrology for recommendations as patient is having hyperkalemia and elevated BUN. (5) Diabetes mellitus with neuropathy Current Visit: Yes Status: Chronic Assessment and plan: Uncontrolled. Despite higher insulin regimen overnight. Will monitor for now. If persistently elevated, will further increase insulin regimen later today. Continue diabetic diet. Qualifiers: Diabetes mellitus type: type 2 Diabetes mellitus residential insulin use: with residential use Qualified Code(s): E11.40 - Type 2 diabetes mellitus with diabetic neuropathy, unspecified; Z79.4 - care home (current) use of insulin (6) Peripheral vascular disease Current Visit: Yes Status: Chronic (7) COPD (chronic obstructive pulmonary disease) Current Visit: No Status: Chronic Assessment and plan: Taper steroids. Continue nebs. Qualifiers: COPD type: unspecified COPD Qualified Code(s): J44.9 - Chronic obstructive pulmonary disease, unspecified (8) Hypertension Current Visit: Yes Status: Chronic Assessment and plan: Uncontrolled. Will increase hydralazine to 50 mg every 6 hours. Also increase carvedilol to 25 mg by mouth twice a day. Monitor blood pressure. This needs to be controlled before discharge. High risk for complications due to accelerated hypertension. Qualifiers: Hypertension type: essential hypertension Qualified Code(s): I10 - Essential (primary) hypertension (9) Tobacco abuse Current Visit: No Status: Chronic (10) Anemia Current Visit: Yes Status: Acute Assessment and plan: Stable hemoglobin levels. Qualifiers: Anemia type: other cause Other causes of anemia: chronic disease, kidney Qualified Code(s): N18.9 - Chronic kidney disease, unspecified; D63.1 - Anemia in chronic kidney disease - Subjective Interval history: Patient is awake and alert. Doing well. Denies any new complaints. No fever or chills or night sweats. No nausea or vomiting. - Constitutional Vitals: Temp Pulse Resp BP Pulse Ox 97.5 F L 75 16 182/83 93 L 11/12/16 07:22 11/12/16 07:22 11/12/16 07:22 11/12/16 07:22 11/12/16 07:22 General appearance: Present: cooperative, A&O X 3, pleasant, obese, answers questions appropriately - Respiratory Respiratory exam: Present: CTAB. Absent: accessory muscle use, rales, rhonchi, wheezes - Cardiovascular Cardiovascular exam: Present: RRR, +S1, +S2. Absent: diastolic murmur, gallop, rubs, systolic murmur - GI/Abdominal GI/Abdominal exam: Present: normal bowel sounds, soft, no peritoneal signs. Absent: distended, tenderness - Extremities Exam Extremities exam: Present: warm, radial pulses palpable and symetrical. Absent : calf tenderness, cyanotic, pedal edema Additional comments: Right foot bandage and wound VAC in place. Left middle finger cellulitis is improving. No discharge noted. Internal Medicine: Result - Labs CBC & Chem 7: 11/12/16 05:00 11/12/16 05:00 Labs: Short CBC 11/11/16 11/12/16 Range/Units 14:40 05:00 WBC 15.1 H 14.9 H (4.3-11.1) K/mcL Hgb 9.5 L 9.1 L (12.9-16.9) g/dL Hct 29.2 L 28.2 L (37.5-50.1) % Plt Count 954 H 883 H (140-400) K/mcL Neutrophils # 12.4 H 12.4 H (1.6-8.9) K/mcL BMP 11/12/16 05:00 Sodium 138 Potassium 5.8 H Chloride 110 H Carbon Dioxide 19 BUN 55 H Creatinine 2.10 H Glucose 363 H Calcium 8.4 L Consult Discharge Plan - Plan Referrals: Luba Dorantes, PAC [Physician Web Publisher] - 11/20/16 11:40 Mark Solo MD [Primary Care Provider] - - Attending Attestation This document has been at least partially created by [employer] recognition technology by Dr. Nieto. Errors in grammar, wording or other phrases may exist. If errors are found after the documentation is signed, they will be addressed individually in the addendum section of this document when appropriate.
[2016-11-12] MEDS: Budesonide/Formoterol 160/4.5 MDI IH SCH ×2 (11:08→21:53)
[2016-11-12] MEDS: Tiotropium 18 MCG inhalation IH SCH (11:08)
[2016-11-12] MEDS: Albuterol 2.5 MG/3 ML NEBULIZER IH PRN ×2 (11:08→21:53)
--- NOTE | 2016-11-12 11:18 | Nephrology Consult Note ---
Date of Encounter: 11/12/16 Time of Encounter: 11:17 Assessment and Plan (1) Hyperkalemia Current Visit: Yes Status: Acute Serum potassium 5.8 today in the setting of significant hyperglycemia. Kayexalate 45 g dose given. Would anticipate improvement in serum potassium level with regulation of the patient's glucose. Hopefully tapering his prednisone dose will assist with this. May require insulin drip if unable to make headway with subcutaneous insulin. Continue to monitor closely. No indications for renal replacement therapy at this time. (2) Hyperglycemia Current Visit: Yes Status: Acute Hyperglycemia in the setting of diabetes mellitus and prednisone use. Management per primary team. (3) Hypertension Current Visit: Yes Status: Chronic Patient's home antihypertensive medications include hydrochlorothiazide, Coreg, Norvasc, and twice a day enalapril. Hydrochlorothiazide, enalapril, and Lasix held on admission due to acute kidney injury. Currently Coreg dose has been doubled, Norvasc dose doubled, 4 times a day hydralazine, and when necessary IV hydralazine ordered. Continue to monitor patient's blood pressure closely as the Norvasc may need to be switched to nifedipine, and the possible addition of clonidine. Renal diet ordered. Qualifiers: Hypertension type: essential hypertension Qualified Code(s): I10 - Essential (primary) hypertension (4) CKD (chronic kidney disease) stage 3, GFR 30-59 ml/min Current Visit: Yes Status: Chronic History of Present Illness - Reason for Consult hyperkalemia - History of Present Illness Mr. Regalado is a 61-year-old gentleman with a past medical history of chronic kidney disease stage III, uncontrolled insulin-dependent diabetes mellitus, hypertension, hepatitis C, hyperlipidemia, depression, diabetic neuropathy, and chronic back pain who presented to the emergency department complaining of rib pain. He was ultimately admitted to the hospital for right foot osteomyelitis and taken to the operating room by podiatry on 11/06. He has had elevated glucose levels as well as hypertension during his stay. Nephrology has been consulted for hypotension and hyperkalemia. On exam, patient states that he is doing well and has no complaints at this time. He followed with a assistant unit forester back in 2012, but has not seen one since that time. He is currently on a tapering dose of oral steroids for COPD which is likely contributing to his hyperglycemia. Past Med Surg Social Fam HX - Past Medical History Medical history: arthritis, COPD, diabetes, GERD, hepatitis, hyperlipidemia, hypertension, osteoporosis, renal disease, syncope Psychiatric history: anxiety, depression - Past Surgical History Surgical History: cataract, LE stent(s), orthopedic, other - Social History Smoking Status: Current every day smoker Smokeless Tobacco Status: No Alcohol use: none Drug use: none - Family History Mother Living Status: Hx Family Cardiac Disorders: Yes (htn) Hx Family Respiratory Disorders: No Hx Family Cancer: Yes Hx Family Endocrine Disorder: Yes (dm) Hx Family Medical Disorders: Yes Father Living Status: Medications and Allergies Aspirin [Adult Low Dose Aspirin EC] 81 mg PO DAILY 12/11/15 [History] Budesonide/Formoterol 160/4.5 [Symbicort 160/4.5] 2 puff IH BIDR 12/11/15 [ History] Citalopram Hydrobromide [Celexa] 20 mg PO DAILY 12/11/15 [History] Enalapril Maleate [Vasotec] 10 mg PO QPM 12/11/15 [History] Enalapril Maleate [Vasotec] 20 mg PO QAM 12/11/15 [History] Ergocalciferol (VITAMIN D2) [Vitamin D2 (50,000 UNIT)] 50,000 unit PO MÁRQUEZ [History] Furosemide [Lasix] 40 mg PO DAILY 12/11/15 [History] Gabapentin [Neurontin] 600 mg PO TID 12/11/15 [History] Hydrochlorothiazide 25 mg PO DAILY 12/11/15 [History] Hydroxyzine HCl 50 mg PO BID 12/11/15 [History] Insulin ASPART [Novolog] 36 - 38 unit SQ TIDWM 12/11/15 [History] Insulin Glargine,Hum.rec.anlog [Lantus Solostar] 80 unit SQ BID 12/11/15 [ History] Meclizine [Antivert] 25 mg PO BID PRN 12/11/15 [History] Omeprazole [PriLOSEC] 20 mg PO BIDAC 12/11/15 [History] Ropinirole [Requip] 1 mg PO HS 12/11/15 [History] Rosuvastatin [Crestor] 40 mg PO DAILY 12/11/15 [History] SitaGLIPtin [Januvia] 100 mg PO DAILY 12/11/15 [History] Tiotropium [Spiriva] 18 mcg IH DAILY 12/11/15 [History] Trazodone HCl [TraZODone] 100 mg PO HS 12/11/15 [History] Albuterol Neb [Proventil Neb] 2.5 mg IH Q2H PRN #0 inhsol 12/15/15 [Rx] Carvedilol [Coreg] 12.5 mg PO BIDWM #0 12/15/15 [Rx] Oxycodone HCl/Acetaminophen [Percocet 10-325 mg Tablet] 1 tab PO Q4H PRN #20 tablet 12/15/15 [Rx] Cyclobenzaprine [Flexeril] 10 mg PO TID #14 tablet 03/25/16 [Rx] Amlodipine [Norvasc] 5 mg PO DAILY #30 tablet 08/08/16 [Rx] PredniSONE 40 mg PO DAILY #8 tablet 08/08/16 [Rx] Allergies acetaminophen [From Darvocet-N] Allergy (Verified 12/11/15 11:46) Hives ibuprofen Allergy (Verified 12/11/15 11:46) Hives propoxyphene [From Darvocet-N] Allergy (Verified 12/11/15 11:46) Hives tramadol [From Ultram] Allergy (Verified 12/11/15 11:46) Hives Review of Systems All Systems: reviewed and no additional remarkable complaints except as stated Exam - Vital Signs Vital signs: Initial Vital Signs Temp Pulse Resp BP Pulse Ox 98.6 F 89 22 154/93 100 11/04/16 19:52 11/04/16 19:52 11/04/16 19:52 11/04/16 19:52 11/04/16 19:52 Vital Signs - Last 8 Hours Temp Pulse Resp BP Pulse Ox 11/12/16 07:22 97.5 F L 75 16 182/83 93 L Intake and Output 11/11/16 11/12/16 11/12/16 23:59 07:59 15:59 Intake Total 750 / 750 100 / 100 720 / 720 Output Total 0 / 0 600 / 600 Balance 750 / 750 -500 / -500 720 / 720 Intake: IV Fluids 100 / 100 100 / 100 100 / 100 Unasyn 3,000 MG In 0.9 % 100 / 100 100 / 100 100 / 100 Sodium Chloride (Mini-Bag +) 100 ML @ 200 mls/hr IVPB Q6H [facility] Rx#: [id number] Oral 650 / 650 0 / 0 620 / 620 Output: Urine 0 / 0 600 / 600 Wound Drainage 0 / 0 Right Lateral Foot 0 / 0 Other: Meal Breakfast Percent of Meal Consumed 100% Weight 109.089 kg Blood Glucose* 217 341 Patient Weight 11/12/16 23:59 Weight 109.089 kg - General Appearance Exam: General: Patient is alert and in no acute distress HEENT: Normocephalic atraumatic, pupils are equal round and reactive to light and accommodation, tympanic membrane is intact, nares is patent, mucous membranes moist, throat is not injected, no JVD, trachea is midline Cardiovascular: Regular rate and rhythm without murmur Respiratory: Lungs are clear to auscultation bilaterally, no wheezing, rhonchi, rales Abdomen: Soft, nontender, obese, positive bowel sounds in all 4 quadrants Extremities: Right foot with bandage and wound VAC in place, left foot in boot Neuro: A&Ox3, speech is appropriate, cranial nerves II through XII are normal as tested Results - Lab Results 11/12/16 05:00 11/12/16 05:00 Most recent lab results Calcium 8.4 mg/dL (8.6-10.8) L 11/12/16 05:00 Magnesium 1.9 mg/dL (1.6-2.6) 11/06/16 05:57 Consult Discharge Plan - Plan Referrals: Luba Dorantes, PAC [Physician Clerk Operator] - 11/20/16 11:40 am Mark Coe MD [Primary Care Provider] -
[2016-11-12 12:19] LABS: Uric Acid 8.4 mg/dL (3.5-7.2)
[2016-11-12] MEDS: *HR* Morphine 2 MG/ML SYRINGE IVP PRN ×3 (14:57→23:26)
[2016-11-12 15:44] LABS: Bilirubin,Urine Negative (Negative); Blood,Urine Negative (Negative); Clarity,Urine Clear (Clear); Color,Urine Yellow (Yellow); Glucose,Urine (UA) 250 mg/dL (Normal); Ketones,Urine Negative (Negative); Leukocyte Esterase,Urine Negative (Negative); Nitrite,Urine Negative (Negative); PH,Urine 5.5 pH Units (5.0-8.0); Protein,Urine 100 mg/dL (Neg-Trace); Specific Gravity,Urine 1.015 (1.010-1.025); Urobilinogen,Urine Normal (Normal)
[2016-11-12 15:47] LABS: Bacteria,Urine None Seen per hpf (None-Few); Hyaline Casts,Urine None Seen per lpf (None-Few); Squamous Epithelial Cell,Urine Moderate per lpf (None-Few); WBC,Urine 0-3 per hpf (0-3)
[2016-11-12] MEDS: rOPINIRole 1 MG TABLET PO SCH (21:05)
[2016-11-12] MEDS: traZODone 50 MG TABLET PO SCH (21:06)
[2016-11-13] MEDS: *HR* OxyCODONE Immed Rel 5 MG TABLET PO PRN ×3 (03:38→17:16)
[2016-11-13 03:51] LABS: Hematocrit 28.9 % (37.5-50.1); Hemoglobin 9.1 g/dL (12.9-16.9); Immature Platelets 0.9 % (1.1-6.1); Mean Corpuscular HGB Conc 31.5 g/dL (31.6-35.5); Mean Corpuscular Hemoglobin 27.2 pg (28.0-33.3); Mean Corpuscular Volume 86.3 fL (83.0-100.0); Mean Platelet Volume 8.8 fL (9.4-12.4); Monocytes # 0.6 K/mcL (0.0-1.3); Platelet Count 777 K/mcL (140-400); Red Blood Count 3.35 M/mcL (4.19-5.50); Red Cell Distribution Width 15.2 % (11.5-14.5)
[2016-11-13 04:06] LABS: Calcium 8.5 mg/dL (8.6-10.8); Potassium 5.7 mEq/L (3.5-4.5)
[2016-11-13 04:40] LABS: Eosinophils # 0.3 K/mcL (0.0-0.6); Lymphocytes # 1.2 K/mcL (0.6-4.6); Neutrophils # 12.2 K/mcL (1.6-8.9)
[2016-11-13 04:41] LABS: Platelet Estimate Marked Increase (Normal); Reactive Lymphocytes Present (Not Present); Toxic Vacuolation Present (Not Present)
[2016-11-13] MEDS: hydrALAZINE 25 MG TABLET PO SCH ×4 (06:46→23:51)
[2016-11-13] MEDS: Ampicillin/Sulbactam 3,000 MG in 0.9 % Sodium Chloride Mini Bag 100 ML IVPB SCH ×4 (06:47→23:52)
[2016-11-13] MEDS: Insulin DETEMIR 100 UNIT/ML X5UNITS SQ SCH ×2 (08:29→21:47)
[2016-11-13] MEDS: Lactobacillus 1 EACH CAP.SPRINK PO SCH ×2 (08:30→21:43)
[2016-11-13] MEDS: Aspirin Enteric Coated 325 MG Tablet PO SCH ×2 (08:30→21:44)
[2016-11-13] MEDS: amLODIPine 5 MG TABLET PO SCH (08:31)
[2016-11-13] MEDS: Nicotine 21 MG PATCH.TD24 TD SCH (08:31)
[2016-11-13] MEDS: Gabapentin 300 MG CAPSULE PO SCH ×3 (08:31→21:43)
[2016-11-13] MEDS: predniSONE 20 MG TABLET PO SCH (08:32)
[2016-11-13] MEDS: Cholecalciferol (D-3) 1,000 UNIT TABLET PO SCH (08:32)
[2016-11-13] MEDS: Insulin LISPRO 300 UNITS/3 ML VIAL SQ SCH ×7 (08:33→21:45)
--- NOTE | 2016-11-13 08:56 | Nephrology Progress Note ---
Date of Encounter: 11/13/16 Time of Encounter: 08:56 - Assessment and Plan (1) Hyperkalemia Current Visit: Yes Status: Acute Serum potassium 5.7 today despite a dose of Kayexalate and several bowel movements yesterday. Unsure of the exact etiology of the patient's hyperkalemia , but may be related to his hyperglycemia or multiple wounds. 60 g Kayexalate dose given. Continue glycemic control. Continue renal diet. No indications for renal replacement therapy at this time. (2) Hypertension Current Visit: Yes Status: Chronic Patient with persistent uncontrolled hypertension despite multiple medications. We have discontinued amlodipine, started nifedipine XL 60 mg daily, and clonidine 0.1 mg 3 times a day. We will also check random cortisol, renin activity, and aldosterone in the a.m. Consider increasing schedule hydralazine to 75mg TID if patient's BP remains elevated. Qualifiers: Hypertension type: essential hypertension Qualified Code(s): I10 - Essential (primary) hypertension (3) Hyperglycemia Current Visit: Yes Status: Acute Hyperglycemia in the setting of diabetes mellitus and prednisone use. Blood sugars slightly improved. Management per primary team. (4) CKD (chronic kidney disease) stage 3, GFR 30-59 ml/min Current Visit: Yes Status: Chronic Subjective Principal diagnosis: Foot infection Interval history: Patient seen and examined at the bedside. No acute events overnight per nursing staff. Patient states that he had approximately 7 bowel movements after dose of Kayexalate yesterday. Continues to complain of shortness of breath requiring low-dose nasal cannula. He has no other current plans at this time, tolerating a renal diet. Objective - Vital Signs Vital signs: Vital Signs Temp Pulse Resp BP Pulse Ox 11/13/16 07:11 97.6 F 73 15 185/80 95 11/13/16 03:33 97.4 F L 72 16 200/91 94 L 11/12/16 23:14 97.7 F 67 12 180/70 93 L 11/12/16 21:53 24 95 11/12/16 18:52 97.6 F 70 93 192/91 93 L 11/12/16 15:32 97.8 F 74 16 169/75 94 L 11/12/16 14:01 97.4 F L 77 16 187/89 94 L 11/12/16 11:43 97.3 F L 73 15 175/79 93 L 11/12/16 11:08 16 95 Intake and Output 11/12/16 11/13/16 11/13/16 23:59 07:59 15:59 Intake Total 800 / 800 200 / 200 Output Total 40 / 40 Balance 800 / 800 160 / 160 Intake: IV Fluids 200 / 200 200 / 200 Unasyn 3,000 MG In 0.9 % 200 / 200 200 / 200 Sodium Chloride (Mini-Bag +) 100 ML @ 200 mls/hr IVPB Q6H [facility] Rx#: [id number] Oral 600 / 600 Output: Wound Drainage 40 / 40 Right Lateral Foot 40 / 40 Other: Meal Dinner Percent of Meal Consumed 100% Blood Glucose* 217 276 - General Appearance Exam: General: Patient is alert and in no acute distress HEENT: Normocephalic atraumatic, pupils are equal round and reactive to light and accommodation, tympanic membrane is intact, nares is patent, mucous membranes moist, throat is not injected, no JVD, trachea is midline Cardiovascular: Regular rate and rhythm without murmur Respiratory: Lungs are clear to auscultation bilaterally, no wheezing, rhonchi, rales Abdomen: Soft, nontender, obese, positive bowel sounds in all 4 quadrants Extremities: Right foot with bandage and wound VAC in place, left foot in a walking boot Neuro: A&Ox3, speech is appropriate, cranial nerves II through XII are normal as tested - Lab 11/13/16 03:25 11/13/16 03:25 Most recent lab results Calcium 8.5 mg/dL (8.6-10.8) L 11/13/16 03:25 Magnesium 1.9 mg/dL (1.6-2.6) 11/06/16 05:57 Urine Creatinine 47 mg/dL 11/12/16 15:20 Urine Sodium 65.0 mEq/L 11/12/16 15:20 Consult Discharge Plan - Plan Referrals: Luba Dorantes, PAC [Physician [employer]arge [employer] Operator] - 11/20/16 11:40 am Mark Coe MD [Primary Care Provider] - 11/13/16 2:30 pm
[2016-11-13] MEDS: Budesonide/Formoterol 160/4.5 MDI IH SCH ×2 (10:57→21:27)
[2016-11-13] MEDS: Tiotropium 18 MCG inhalation IH SCH (10:57)
[2016-11-13] MEDS: Albuterol 2.5 MG/3 ML NEBULIZER IH PRN (10:58)
[2016-11-13] MEDS: cloNIDine HCl 0.1 MG TABLET PO SCH ×3 (12:31→21:44)
[2016-11-13] MEDS: NIFEdipine XL (24 HR) 60 MG TAB.ER.24 PO SCH (12:32)
[2016-11-13] MEDS: *HR* Morphine 2 MG/ML SYRINGE IVP PRN ×2 (12:33→21:48)
--- NOTE | 2016-11-13 13:25 | Podiatry Progress Note ---
Date of Encounter: 11/13/16 Time of Encounter: 11:45 - Assessment and Plan (1) Renal failure Current Visit: No Status: Acute 1. Nephrology consulted and following patient. (2) Peripheral vascular disease due to secondary diabetes Current Visit: No Status: Acute 1. ISIDRO of BLE completed on 11/05/16: Right: 0.98 Left: 0.94 (3) Foot ulcer Current Visit: No Status: Chronic 1. Dressing changed to left foot, ulceration is partial thickness. Dressing changed at bedside. Significant improvement in ulceration to the left foot. No erythema, no pus, no odor, no erythema, no streaking. Scant amount of serous drainage observed to dressing. 2. Wound care orders to include cleansing ulcer of left foot daily with mild soap and water, pat dry, apply dry sterile 4x4 gauze with kerlix. Qualifiers: Laterality: right Non-pressure ulcer stage: with fat layer exposed Qualified Code(s): L97.512 - Non-pressure chronic ulcer of other part of right foot with fat layer exposed (4) Diabetes mellitus with neuropathy Current Visit: Yes Status: Chronic Qualifiers: Diabetes mellitus type: type 2 Diabetes mellitus intermediate insulin use: with terminal gauger supervisor use Qualified Code(s): E11.40 - Type 2 diabetes mellitus with diabetic neuropathy, unspecified; Z79.4 - terminal gauger supervisor (current) use of insulin Subjective Principal diagnosis: Foot infection Interval history: Patient is s/p incision and drainage to bone cortex for osteomyelitis #5 metatarsal right, open amputation of toe #5 with metatarsal #5 right foot, application wound VAC by Dr. Pace on 11/06/16. Patient denies any pain in his feet, fever, chills, nausea, vomiting overnight. Patients wound vac was changed yesterday (11/12/16). Nephrology was consulted yesterday for HTN and Hyperkalemia. Objective - Vital Signs Vital Signs: Vital Signs Temp Pulse Resp BP Pulse Ox 11/13/16 12:12 97.4 F L 73 15 188/69 92 L 11/13/16 10:59 15 95 11/13/16 07:11 97.6 F 73 15 185/80 95 11/13/16 03:33 97.4 F L 72 16 200/91 94 L 11/12/16 23:14 97.7 F 67 12 180/70 93 L 11/12/16 21:53 24 95 11/12/16 18:52 97.6 F 70 93 192/91 93 L 11/12/16 15:32 97.8 F 74 16 169/75 94 L 11/12/16 14:01 97.4 F L 77 16 187/89 94 L Intake and Output 11/12/16 11/13/16 11/13/16 23:59 07:59 15:59 Intake Total 800 / 800 200 / 200 480 / 480 Output Total 40 / 40 Balance 800 / 800 160 / 160 480 / 480 Intake: IV Fluids 200 / 200 200 / 200 Unasyn 3,000 MG In 0.9 % 200 / 200 200 / 200 Sodium Chloride (Mini-Bag +) 100 ML @ 200 mls/hr IVPB Q6H [facility] Rx#: [id number] Oral 600 / 600 480 / 480 Output: Wound Drainage 40 / 40 Right Lateral Foot 40 / 40 Other: Meal Dinner Breakfast Percent of Meal Consumed 100% 100% Blood Glucose* 217 276 216 - Exam Exam: General appearance: alert awake oriented X 3. Calm and pleasant, no acute distress.. Vascular: Pedal pulses 0/4 DP/PT , No evidence of cyanosis, pallor or rubor, Edema graded at 1+/4, Skin Temperature warm, No calf pain with manual compression. capillary refill time is immediate to digits. Neurologic: Sensation absent with light touch to both feet . Ulcer: Partial thickness ulceration to the left foot at the fifth metatarsal head plantar aspect measuring 1.8 cm in length x 1.8 cm in width. scant amount of serous drainage observed to dressing. No probe to bone, no odor, no erythema, no streaking, no fluctuance. Post op: Wound VAC intact to right foot with black sponge, 125 mmhg continuous suction, no drainage observed to wound vac chamber. Light periwound erythema, no streaking, no lymphangitis, no purulent drainage, no fluctuance, no warmth. - Lab Result Diagrams: 11/13/16 03:25 11/13/16 03:25 Labs: Abnormal lab results WBC 14.9 K/mcL (4.3-11.1) H 11/13/16 03:25 RBC 3.35 M/mcL (4.19-5.50) L 11/13/16 03:25 Hgb 9.1 g/dL (12.9-16.9) L 11/13/16 03:25 Hct 28.9 % (37.5-50.1) L 11/13/16 03:25 MCH 27.2 pg (28.0-33.3) L 11/13/16 03:25 MCHC 31.5 g/dL (31.6-35.5) L 11/13/16 03:25 RDW 15.2 % (11.5-14.5) H 11/13/16 03:25 Plt Count 777 K/mcL (140-400) H 11/13/16 03:25 MPV 8.8 fL (9.4-12.4) L 11/13/16 03:25 Immature Gran % 8.2 % (0-4) H 11/10/16 04:30 Band Neutrophils % 10.0 % (0-4) H 11/13/16 03:25 Metamyelocytes % 4.0 % (0) H 11/13/16 03:25 Myelocytes % 2.0 % (0) H 11/12/16 05:00 Neutrophils # 12.2 K/mcL (1.6-8.9) H 11/13/16 03:25 Nucleated RBCs/100 WBC 0.1 /100 WBC (0) H 11/12/16 05:00 Reactive Lymphocytes Present (Not Present) A 11/13/16 03:25 Toxic Vacuolation Present (Not Present) A 11/13/16 03:25 Platelet Estimate Marked Increase (Normal) H 11/13/16 03:25 Immature Plt Fraction 0.9 % (1.1-6.1) L 11/13/16 03:25 Polychromasia 1+ (Not Present) A 11/12/16 05:00 ESR 66 mm/hr (0-10) H 11/12/16 08:30 Potassium 5.7 mEq/L (3.5-4.5) H 11/13/16 03:25 Chloride 110 mEq/L (98-109) H 11/13/16 03:25 BUN 56 mg/dL (8-26) H 11/13/16 03:25 Creatinine 1.99 mg/dL (0.72-1.25) H 11/13/16 03:25 Est GFR ( Amer) 42 (> 60) L 11/13/16 03:25 Est GFR (Non-Af Amer) 34 (> 60) L 11/13/16 03:25 BUN/Creatinine Ratio 28 (6-26) H 11/13/16 03:25 Glucose 288 mg/dL (70-99) H 11/13/16 03:25 POC Glucose 217 (58-89) H 11/12/16 20:10 Calculated Osmolality 314 (280-300) H 11/13/16 03:25 Uric Acid 8.4 mg/dL (3.5-7.2) H 11/12/16 05:03 Calcium 8.5 mg/dL (8.6-10.8) L 11/13/16 03:25 Creatine Kinase 25 Units/L (30-200) L 11/12/16 05:03 C-Reactive Protein 13 mg/L (Less than 5) H 11/12/16 08:30 Urine Protein 100 mg/dL (Neg-Trace) H 11/12/16 15:20 Urine Glucose (UA) 250 mg/dL (Normal) H 11/12/16 15:20 Urine Microscopic RBC 3-5 per hpf (0-3) H 11/12/16 15:20 Ur Squamous Epith Cells Moderate per lpf (None-Few) H 11/12/16 15:20 Microbiology, Last 48 Hours 11/06/16 17:15 Anaerobic Culture - Final Right Foot No anaerobes were recovered. 11/06/16 17:15 Surgical Biopsy Culture - Final Right Foot Proteus vulgaris Enterococcus faecalis Consult Discharge Plan - Plan Referrals: Luba Dorantes, PAC [Physician Winch Stripper] - 11/20/16 11:40 am Mark Coe MD [Primary Care Provider] - 11/13/16 2:30 pm
--- NOTE | 2016-11-13 17:40 | Internal Med Progress Note ---
Date of Encounter: 11/13/16 Time of Encounter: 10:00 - Assessment and plan (1) Diabetic ulcer of both feet associated with type 2 diabetes mellitus Current Visit: Yes Status: Acute Assessment and plan: Blood sugars are still elevated but improving. Will further increase Levemir dosage. Foot ulcer are management by podiatry (2) Hyperkalemia Current Visit: Yes Status: Acute Assessment and plan: Persist hyperkalemia although aggressive treatment. Will continue Kayexalate. Continue renal diet. Follow-up potassium level. Nephrology consult appreciated. (3) Osteomyelitis of foot, right, acute Current Visit: Yes Status: Acute Assessment and plan: On IV Unasyn. Will complete 4-6 week treatment course with intravenous antibiotics. WBC count is better today. Elevated due to prednisone use. Continue local wound care. Follow up with podiatry after discharge. (4) CKD (chronic kidney disease) stage 3, GFR 30-59 ml/min Current Visit: Yes Status: Chronic Assessment and plan: Renal function stable overall. nephrology was counseled for recommendations as patient is having hyperkalemia and elevated BUN. (5) Hypertension Current Visit: Yes Status: Chronic Assessment and plan: Uncontrolled. On hydralazine to 50 mg every 6 hours and carvedilol to 25 mg by mouth twice a day. Add clonidine and nifedipine today. Monitor blood pressure. This needs to be controlled before discharge. High risk for complications due to accelerated hypertension. Qualifiers: Hypertension type: essential hypertension Qualified Code(s): I10 - Essential (primary) hypertension (6) DVT prophylaxis Current Visit: No Status: Acute Assessment and plan: Heparin subcutaneously - Time Spent With Patient 25 - 35 minutes - Subjective Interval history: Patient is a 61-year-old male admitted for diabetic foot. His past medical history is significant for COPD, diabetes, hyperlipidemia, hypertension, CKD. Patient was seen and examined. He is awake alert, oriented 3. Complaint of pain but well controlled by pain medication. No nausea, no vomiting. S/P podiatry procedure. On antibiotic. Still has hyperkalemia with today's potassium level 5.7. Nephrology consult on case, high dose Kayexalate ordered. we will continue renal diet and closely follow up potassium level. Patient has uncontrolled hypertension, clonidine and nifedipine added per nephrology. - Constitutional Vitals: Temp Pulse Resp BP Pulse Ox 97.6 F 95 16 170/78 97 11/13/16 15:22 11/13/16 15:22 11/13/16 15:22 11/13/16 15:22 11/13/16 16:05 General appearance: Present: cooperative, A&O X 3, pleasant, obese, answers questions appropriately - Head Head exam: Present: atraumatic, normocephalic - Eye Eye exam: Present: PERRL, conjuntiva pink, sclera anicteric Pupils: Present: PERRL - Neck Neck exam general surgery: Present: supple, trachea midline. Absent: lymphadenopathy - Respiratory Respiratory exam: Present: CTAB. Absent: accessory muscle use, rales, rhonchi, wheezes - Cardiovascular Cardiovascular exam: Present: RRR, +S1, +S2. Absent: diastolic murmur, gallop, rubs, systolic murmur - GI/Abdominal GI/Abdominal exam: Present: normal bowel sounds, soft, no peritoneal signs. Absent: distended, tenderness - Extremities Exam Extremities exam: Present: warm, radial pulses palpable and symetrical. Absent : calf tenderness, cyanotic, pedal edema Additional comments: Right foot S/P surgery, well dressed. - Neurological Exam Neurological exam: Present: CN II-XII intact, oriented X3, no focal deficits. Absent: pronater drift, facial droop, speech deficit - Skin Skin exam: Present: dry, intact Internal Medicine: Result - Labs CBC & Chem 7: 11/13/16 03:25 11/13/16 03:25 Labs: Short CBC 11/13/16 Range/Units 03:25 WBC 14.9 H (4.3-11.1) K/mcL Hgb 9.1 L (12.9-16.9) g/dL Hct 28.9 L (37.5-50.1) % Plt Count 777 H (140-400) K/mcL Neutrophils # 12.2 H (1.6-8.9) K/mcL BMP 11/13/16 03:25 Sodium 139 Potassium 5.7 H Chloride 110 H Carbon Dioxide 20 BUN 56 H Creatinine 1.99 H Glucose 288 H Calcium 8.5 L Consult Discharge Plan - Plan Referrals: Luba Dorantes, PAC [Physician Clinical Research Analyst] - 11/20/16 11:40 am Mark Coe MD [Primary Care Provider] - 11/13/16 2:30 pm
[2016-11-13] MEDS: *HR* Heparin 5,000 UNIT/ML VIAL SQ SCH (18:59)
[2016-11-13] MEDS: traZODone 50 MG TABLET PO SCH (21:41)
[2016-11-13] MEDS: rOPINIRole 1 MG TABLET PO SCH (21:44)
[2016-11-14 04:01] LABS: Hematocrit 27.2 % (37.5-50.1); Hemoglobin 8.7 g/dL (12.9-16.9); Mean Corpuscular Hemoglobin 27.8 pg (28.0-33.3); Mean Corpuscular Volume 86.9 fL (83.0-100.0); Mean Platelet Volume 8.7 fL (9.4-12.4); Nucleated Red Blood Cells 0.1 /100 WBC (0); Platelet Count 584 K/mcL (140-400); Red Blood Count 3.13 M/mcL (4.19-5.50); Red Cell Distribution Width 15.6 % (11.5-14.5)
[2016-11-14 04:21] LABS: Calcium 8.5 mg/dL (8.6-10.8)
[2016-11-14 04:23] LABS: Potassium 4.6 mEq/L (3.5-4.5)
[2016-11-14 05:15] LABS: Lymphocytes # 1.4 K/mcL (0.6-4.6); Monocytes # 0.6 K/mcL (0.0-1.3); Neutrophils # 11.2 K/mcL (1.6-8.9)
[2016-11-14 05:16] LABS: Platelet Estimate Marked Decrease (Normal)
[2016-11-14] MEDS: hydrALAZINE 25 MG TABLET PO SCH ×4 (06:04→23:51)
[2016-11-14] MEDS: *HR* OxyCODONE Immed Rel 5 MG TABLET PO PRN ×3 (06:04→20:25)
[2016-11-14] MEDS: Ampicillin/Sulbactam 3,000 MG in 0.9 % Sodium Chloride Mini Bag 100 ML IVPB SCH ×4 (06:06→23:52)
[2016-11-14] MEDS: *HR* Heparin 5,000 UNIT/ML VIAL SQ SCH ×2 (06:11→18:01)
--- NOTE | 2016-11-14 09:33 | Nephrology Progress Note ---
Date of Encounter: 11/14/16 Time of Encounter: 09:33 - Assessment and Plan (1) Hyperkalemia Current Visit: Yes Status: Resolved Serum potassium 4.6 today after 2 doses of Kayexalate of Kayexalate. Unsure of the exact etiology of the patient's hyperkalemia, but may be related to his hyperglycemia or multiple wounds. Continue glycemic control. Continue renal diet. No indications for renal replacement therapy at this time. (2) Hypertension Current Visit: Yes Status: Chronic Patient with persistent uncontrolled hypertension despite multiple medications. Continue nifedipine, hydralazine, and Coreg. Clonidine increased to 0.2mg 3 times a day. Serum cortisol low at 1.7. Would recommend further workup in the outpatient setting, including ACTH stim test. Plasma metanephrines, renal ultrasound, and renal artery Doppler ordered looking for causes of secondary hypertension. Qualifiers: Hypertension type: essential hypertension Qualified Code(s): I10 - Essential (primary) hypertension (3) Hyperglycemia Current Visit: Yes Status: Acute Hyperglycemia in the setting of diabetes mellitus and prednisone use. Blood sugars slightly improved. Management per primary team. (4) CKD (chronic kidney disease) stage 3, GFR 30-59 ml/min Current Visit: Yes Status: Chronic Subjective Principal diagnosis: Foot infection Interval history: Patient seen and examined at the bedside. No acute events overnight per nursing staff. Patient states that he had approximately 7 bowel movements after dose of Kayexalate yesterday. Continues to complain of shortness of breath requiring low-dose nasal cannula. He has no other current plans at this time, tolerating a renal diet. Objective - Vital Signs Vital signs: Vital Signs Temp Pulse Resp BP Pulse Ox 11/14/16 07:04 97.5 F L 72 16 189/75 94 L 11/14/16 04:13 97.7 F 71 16 184/73 94 L 11/13/16 23:35 97.5 F L 74 16 173/76 96 11/13/16 21:27 14 92 L 11/13/16 19:17 97.6 F 74 16 175/82 93 L 11/13/16 16:05 97 11/13/16 15:22 97.6 F 95 16 170/78 97 11/13/16 12:12 97.4 F L 73 15 188/69 92 L 02/07/17 10:59 15 95 Intake and Output 02/07/17 02/08/17 02/08/17 23:59 07:59 15:59 Intake Total 440 / 440 440 / 440 Output Total 0 / 0 Balance 440 / 440 440 / 440 Intake: IV Fluids 200 / 200 200 / 200 Unasyn 3,000 MG In 0.9 % 200 / 200 200 / 200 Sodium Chloride (Mini-Bag +) 100 ML @ 200 mls/hr IVPB Q6H [facility] Rx#: [id number] Oral 240 / 240 240 / 240 Output: Wound Drainage 0 / 0 Right Lateral Foot 0 / 0 Other: Meal Dinner Percent of Meal Consumed 100% Stool Size Moderate Stool Consistency loose Stool Color Brown # Voids 1 # Bowel Movements 1 Blood Glucose* 279 127 - General Appearance Exam: General: Patient is alert and in no acute distress HEENT: Normocephalic atraumatic, pupils are equal round and reactive to light and accommodation, tympanic membrane is intact, nares is patent, mucous membranes moist, throat is not injected, no JVD, trachea is midline Cardiovascular: Regular rate and rhythm without murmur Respiratory: Lungs are clear to auscultation bilaterally, no wheezing, rhonchi, rales Abdomen: Soft, nontender, obese, positive bowel sounds in all 4 quadrants Extremities: Right foot with wound VAC in place, left foot and walking boot, 1+ lower extremity edema Neuro: A&Ox3, speech is appropriate, cranial nerves II through XII are normal as tested - Lab 11/14/16 03:45 11/14/16 03:45 Most recent lab results Calcium 8.5 mg/dL (8.6-10.8) L 11/14/16 03:45 Magnesium 1.9 mg/dL (1.6-2.6) 11/06/16 05:57 Urine Creatinine 47 mg/dL 11/12/16 15:20 Urine Sodium 65.0 mEq/L 11/12/16 15:20 Consult Discharge Plan - Plan Referrals: Luba Dorantes, PAC [Physician Ledge Man] - 11/20/16 11:40 am
[2016-11-14] MEDS: Insulin LISPRO 300 UNITS/3 ML VIAL SQ SCH ×7 (09:36→22:12)
[2016-11-14] MEDS: Gabapentin 300 MG CAPSULE PO SCH ×3 (11:08→20:11)
[2016-11-14] MEDS: predniSONE 20 MG TABLET PO SCH (11:08)
[2016-11-14] MEDS: NIFEdipine XL (24 HR) 60 MG TAB.ER.24 PO SCH (11:08)
[2016-11-14] MEDS: cloNIDine HCl 0.1 MG TABLET PO SCH ×4 (11:08→20:11)
[2016-11-14] MEDS: Lactobacillus 1 EACH CAP.SPRINK PO SCH ×2 (11:08→20:11)
[2016-11-14] MEDS: Cholecalciferol (D-3) 1,000 UNIT TABLET PO SCH (11:08)
[2016-11-14] MEDS: Aspirin Enteric Coated 325 MG Tablet PO SCH (11:09)
[2016-11-14] MEDS: Nicotine 21 MG PATCH.TD24 TD SCH (11:09)
[2016-11-14] MEDS: Tiotropium 18 MCG inhalation IH SCH (11:14)
[2016-11-14] MEDS: Budesonide/Formoterol 160/4.5 MDI IH SCH ×2 (11:14→20:18)
[2016-11-14] MEDS: Insulin DETEMIR 100 UNIT/ML X5UNITS SQ SCH ×2 (11:24→20:12)
--- NOTE | 2016-11-14 13:00 | Podiatry Progress Note ---
Date of Encounter: 11/14/16 Time of Encounter: 12:00 - Assessment and Plan (1) Renal failure Current Visit: No Status: Acute 1. Nephrology consulted and following patient. (2) Peripheral vascular disease due to secondary diabetes Current Visit: No Status: Acute 1. ISIDRO of BLE completed on 11/05/16: Right: 0.98 Left: 0.94 (3) Foot ulcer Current Visit: No Status: Chronic 1. Dressing changed to left foot, ulceration is superficial. Dressing changed at bedside. Significant improvement in ulceration to the left foot. No erythema , no pus, no odor, no erythema, no streaking. Scant amount of serous drainage observed to dressing. 2. Wound care orders to include cleansing ulcer of left foot daily with mild soap and water, pat dry, apply dry sterile 4x4 gauze with kerlix. Qualifiers: Laterality: right Non-pressure ulcer stage: with fat layer exposed Qualified Code(s): L97.512 - Non-pressure chronic ulcer of other part of right foot with fat layer exposed (4) Diabetes mellitus with neuropathy Current Visit: Yes Status: Chronic Qualifiers: Diabetes mellitus type: type 2 Diabetes mellitus internet researcher insulin use: with internet researcher use Qualified Code(s): E11.40 - Type 2 diabetes mellitus with diabetic neuropathy, unspecified; Z79.4 - employment clerk (current) use of insulin (5) Osteomyelitis of foot, right, acute Current Visit: Yes Status: Acute 1. s/p incision and drainage to bone cortex for osteomyelitis #5 metatarsal right, open amputation of toe #5 with metatarsal #5 right foot, application wound VAC on 11/06/16. Wound vac intact with 15 cc of serosanguineous drainage observed to wound vac chamber. 2. WBC 13.7, a febrile. Intraop cultures: Proteus Vulgaris, enterococcus faecalis. 3. Patient will need internet researcher IV antibiotics x 6 weeks with wound vac changes every M-W-. Wound vac: black sponge, connected to 125 mmhg continuous suction. Wound vac changed today. 4. Patient accepted to [facility]. Patient to continue use of tall cam boot, protective weight bearing with walker. 5. Patient will need a f/u with Dr. Pace in wound care with in one of discharge from the hospital. Subjective Principal diagnosis: Foot infection Interval history: Patient is s/p incision and drainage to bone cortex for osteomyelitis #5 metatarsal right, open amputation of toe #5 with metatarsal #5 right foot, application wound VAC by Dr. Pace on 11/06/16. Patient denies any pain in his feet, fever, chills, nausea, vomiting overnight. Patients wound vac was last changed on 11/12/16. Objective - Vital Signs Vital Signs: Vital Signs Temp Pulse Resp BP Pulse Ox 11/14/16 11:15 20 90 L 11/14/16 11:00 97.6 F 75 16 151/75 93 L 11/14/16 07:04 97.5 F L 72 16 189/75 94 L 11/14/16 04:13 97.7 F 71 16 184/73 94 L 11/13/16 23:35 97.5 F L 74 16 173/76 96 11/13/16 21:27 14 92 L 11/13/16 19:17 97.6 F 74 16 175/82 93 L 11/13/16 16:05 97 11/13/16 15:22 97.6 F 95 16 170/78 97 Intake and Output 11/13/16 11/14/16 11/14/16 23:59 07:59 15:59 Intake Total 440 / 440 440 / 440 600 / 600 Output Total 0 / 0 Balance 440 / 440 440 / 440 600 / 600 Intake: IV Fluids 200 / 200 200 / 200 Unasyn 3,000 MG In 0.9 % 200 / 200 200 / 200 Sodium Chloride (Mini-Bag +) 100 ML @ 200 mls/hr IVPB Q6H [facility] Rx#: [id number] Oral 240 / 240 240 / 240 600 / 600 Output: Wound Drainage 0 / 0 Right Lateral Foot 0 / 0 Other: Meal Dinner Breakfast Percent of Meal Consumed 100% 100% Stool Size Moderate Stool Consistency loose Stool Color Brown # Voids 1 # Bowel Movements 1 Blood Glucose* 279 127 158 - Exam Exam: General appearance: alert awake oriented X 3. Calm and pleasant, no acute distress.. Vascular: Pedal pulses 0/4 DP/PT , No evidence of cyanosis, pallor or rubor, Edema graded at 1+/4, Skin Temperature warm, No calf pain with manual compression. capillary refill time is immediate to digits. Neurologic: Sensation absent with light touch to both feet . Ulcer: Superficial ulceration to the left foot at the fifth metatarsal head plantar aspect measuring 1.8 cm in length x 1.8 cm in width. scant amount of serous drainage observed to dressing. No probe to bone, no odor, no erythema, no streaking, no fluctuance. Post op: Wound VAC intact to right foot with black sponge, 125 mmhg continuous suction, no drainage observed to wound vac chamber. Wound vac removed at bedside: wound measurements: 1.5 cm in length x 2 cm in width x 1.5 cm in depth with tunneling at 11 O'clock along the incision line measuring 1 cm, base of wound with slough, light periwound erythema with macerated edges, no streaking, no lymphangitis, no purulent drainage, no fluctuance, no warmth. - Lab Result Diagrams: 11/14/16 03:45 11/14/16 03:45 Labs: Abnormal lab results WBC 13.7 K/mcL (4.3-11.1) H 11/14/16 03:45 RBC 3.13 M/mcL (4.19-5.50) L 11/14/16 03:45 Hgb 8.7 g/dL (12.9-16.9) L 11/14/16 03:45 Hct 27.2 % (37.5-50.1) L 11/14/16 03:45 MCH 27.8 pg (28.0-33.3) L 11/14/16 03:45 RDW 15.6 % (11.5-14.5) H 11/14/16 03:45 Plt Count 584 K/mcL (140-400) H 11/14/16 03:45 MPV 8.7 fL (9.4-12.4) L 11/14/16 03:45 Immature Gran % 8.2 % (0-4) H 11/10/16 04:30 Metamyelocytes % 4.0 % (0) H 11/13/16 03:25 Myelocytes % 4.0 % (0) H 11/14/16 03:45 Neutrophils # 11.2 K/mcL (1.6-8.9) H 11/14/16 03:45 Nucleated RBCs/100 WBC 0.1 /100 WBC (0) H 11/14/16 03:45 Reactive Lymphocytes Present (Not Present) A 11/13/16 03:25 Toxic Vacuolation Present (Not Present) A 11/13/16 03:25 Platelet Estimate Marked Decrease (Normal) L 11/14/16 03:45 Immature Plt Fraction 0.9 % (1.1-6.1) L 11/13/16 03:25 Polychromasia 1+ (Not Present) A 11/12/16 05:00 ESR 66 mm/hr (0-10) H 11/12/16 08:30 Potassium 4.6 mEq/L (3.5-4.5) H D 11/14/16 03:45 Chloride 111 mEq/L (98-109) H 11/14/16 03:45 BUN 60 mg/dL (8-26) H 11/14/16 03:45 Creatinine 1.85 mg/dL (0.72-1.25) H 11/14/16 03:45 Est GFR ( Amer) 45 (> 60) L 11/14/16 03:45 Est GFR (Non-Af Amer) 37 (> 60) L 11/14/16 03:45 BUN/Creatinine Ratio 32 (6-26) H 11/14/16 03:45 Glucose 136 mg/dL (70-99) H 11/14/16 03:45 POC Glucose 158 (58-89) H 11/14/16 11:04 Calculated Osmolality 313 (280-300) H 11/14/16 03:45 Uric Acid 8.4 mg/dL (3.5-7.2) H 11/12/16 05:03 Calcium 8.5 mg/dL (8.6-10.8) L 11/14/16 03:45 Creatine Kinase 25 Units/L (30-200) L 11/12/16 05:03 C-Reactive Protein 13 mg/L (Less than 5) H 11/12/16 08:30 Urine Protein 100 mg/dL (Neg-Trace) H 11/12/16 15:20 Urine Glucose (UA) 250 mg/dL (Normal) H 11/12/16 15:20 Urine Microscopic RBC 3-5 per hpf (0-3) H 11/12/16 15:20 Ur Squamous Epith Cells Moderate per lpf (None-Few) H 11/12/16 15:20 Microbiology, Last 48 Hours 11/06/16 17:15 Anaerobic Culture - Final Right Foot No anaerobes were recovered. Consult Discharge Plan - Plan Referrals: Mulvany,Luba L, PAC [Physician Animal Husbandry Technician] - 11/20/16 11:40 am
--- NOTE | 2016-11-14 16:45 | Internal Med Progress Note ---
Date of Encounter: 11/14/16 Time of Encounter: 10:00 - Assessment and plan (1) Diabetic ulcer of both feet associated with type 2 diabetes mellitus Current Visit: Yes Status: Acute Assessment and plan: Blood sugars has better control now. On high level basal, pradial, and sliding scale insulin. Foot ulcer are management by podiatry (2) Hyperkalemia Current Visit: Yes Status: Resolved Assessment and plan: Persist hyperkalemia although aggressive treatment. Will continue Kayexalate. Continue renal diet. Follow-up potassium level. Nephrology consult appreciated. Potassium level has improved after keyaxalate. Continue closely monitoring. (3) Osteomyelitis of foot, right, acute Current Visit: Yes Status: Acute Assessment and plan: On IV Unasyn. Will complete 4-6 week treatment course with intravenous antibiotics. WBC count is better today. Elevated due to prednisone use. Continue local wound care. Follow up with podiatry after discharge. PICC line has been placed for terminal system operator abx use. (4) CKD (chronic kidney disease) stage 3, GFR 30-59 ml/min Current Visit: Yes Status: Chronic Assessment and plan: Renal function stable overall. nephrology was counseled for recommendations as patient is having hyperkalemia and poorly controlled HTN. (5) Hypertension Current Visit: Yes Status: Chronic Assessment and plan: Uncontrolled. On hydralazine to 50 mg every 6 hours and carvedilol to 25 mg by mouth twice a day. Add clonidine and nifedipine. Increase clonidine dose today. Monitor blood pressure. High risk for complications due to accelerated hypertension. Qualifiers: Hypertension type: essential hypertension Qualified Code(s): I10 - Essential (primary) hypertension (6) DVT prophylaxis Current Visit: No Status: Acute Assessment and plan: Heparin subcutaneously - Time Spent With Patient Greater than 35 minutes - Subjective Interval history: Patient is a 61-year-old male admitted for diabetic foot. His past medical history is significant for COPD, diabetes, hyperlipidemia, hypertension, CKD. Patient was seen and examined. He is awake alert, oriented 3. Complaint of pain but well controlled by pain medication. No nausea, no vomiting. S/P podiatry procedure. On antibiotic. Hyperkalemia has improved with keyaxalate. we will continue renal diet and closely follow up potassium level. HTN has slightly improved with add on clonidine and nifedipine, increase clonidine dose to 0.2 mg tid. - Constitutional Vitals: Temp Pulse Resp BP Pulse Ox 97.8 F 70 16 175/83 95 11/14/16 15:15 11/14/16 15:15 11/14/16 15:15 11/14/16 15:15 11/14/16 15:15 General appearance: Present: cooperative, A&O X 3, pleasant, obese, answers questions appropriately - Head Head exam: Present: atraumatic, normocephalic - Eye Eye exam: Present: PERRL, conjuntiva pink, sclera anicteric Pupils: Present: PERRL - Neck Neck exam general surgery: Present: supple, trachea midline. Absent: lymphadenopathy - Respiratory Respiratory exam: Present: CTAB. Absent: accessory muscle use, rales, rhonchi, wheezes - Cardiovascular Cardiovascular exam: Present: RRR, +S1, +S2. Absent: diastolic murmur, gallop, rubs, systolic murmur - GI/Abdominal GI/Abdominal exam: Present: normal bowel sounds, soft, no peritoneal signs. Absent: distended, tenderness - Extremities Exam Extremities exam: Present: warm, radial pulses palpable and symetrical. Absent : calf tenderness, cyanotic, pedal edema Additional comments: Both feet wound well dressed. - Neurological Exam Neurological exam: Present: CN II-XII intact, oriented X3, no focal deficits. Absent: pronater drift, facial droop, speech deficit - Skin Skin exam: Present: dry, intact Internal Medicine: Result - Labs CBC & Chem 7: 11/14/16 03:45 11/14/16 03:45 Labs: Short CBC 11/14/16 Range/Units 03:45 WBC 13.7 H (4.3-11.1) K/mcL Hgb 8.7 L (12.9-16.9) g/dL Hct 27.2 L (37.5-50.1) % Plt Count 584 H (140-400) K/mcL Neutrophils # 11.2 H (1.6-8.9) K/mcL BMP 11/14/16 03:45 Sodium 142 Potassium 4.6 H D Chloride 111 H Carbon Dioxide 21 BUN 60 H Creatinine 1.85 H Glucose 136 H Calcium 8.5 L Consult Discharge Plan - Plan Referrals: Luba Dorantes, PAC [Physician Cutting Room Supervisor] - 11/20/16 11:40 am
[2016-11-14] MEDS: traZODone 50 MG TABLET PO SCH (20:11)
[2016-11-14] MEDS: rOPINIRole 1 MG TABLET PO SCH (20:11)
[2016-11-15] MEDS: Albuterol 2.5 MG/3 ML NEBULIZER IH PRN (04:34)
[2016-11-15 04:44] LABS: Basophils % 0.2 %; Eosinophils # 0.1 K/mcL (0.0-0.6); Eosinophils % 0.6 %; Hematocrit 26.3 % (37.5-50.1); Hemoglobin 8.5 g/dL (12.9-16.9); Immature Granulocytes % 4.5 % (0-4); Lymphocytes # 1.1 K/mcL (0.6-4.6); Lymphocytes % 8.8 %; Mean Corpuscular HGB Conc 32.3 g/dL (31.6-35.5); Mean Corpuscular Hemoglobin 28.1 pg (28.0-33.3); Mean Corpuscular Volume 86.8 fL (83.0-100.0); Mean Platelet Volume 8.8 fL (9.4-12.4); Monocytes # 0.5 K/mcL (0.0-1.3); Monocytes % 3.9 %; Neutrophils # 10.3 K/mcL (1.6-8.9); Platelet Count 527 K/mcL (140-400); Red Blood Count 3.03 M/mcL (4.19-5.50); Red Cell Distribution Width 15.4 % (11.5-14.5)
[2016-11-15] MEDS: *HR* OxyCODONE Immed Rel 5 MG TABLET PO PRN ×2 (05:00→21:20)
[2016-11-15 05:01] LABS: Calcium 8.4 mg/dL (8.6-10.8); Potassium 4.7 mEq/L (3.5-4.5)
[2016-11-15] MEDS: Ampicillin/Sulbactam 3,000 MG in 0.9 % Sodium Chloride Mini Bag 100 ML IVPB SCH ×3 (06:20→17:33)
[2016-11-15] MEDS: *HR* Heparin 5,000 UNIT/ML VIAL SQ SCH ×2 (06:23→17:33)
[2016-11-15] MEDS: Tiotropium 18 MCG inhalation IH SCH (07:56)
[2016-11-15] MEDS: Budesonide/Formoterol 160/4.5 MDI IH SCH ×2 (07:56→20:44)
--- NOTE | 2016-11-15 08:30 | Nephrology Progress Note ---
Date of Encounter: 11/15/16 Time of Encounter: 08:30 - Assessment and Plan (1) Hypertension Current Visit: Yes Status: Chronic Patient with persistent uncontrolled hypertension despite multiple medications. Continue nifedipine, hydralazine, and Coreg. Clonidine increased to 0.2mg 3 times a day. Serum cortisol low at 1.7. Would recommend further workup in the outpatient setting, including ACTH stim test and sleep study as patient has been told he has sleep apnea. Plasma metanephrines, renin, aldosterone, and renal artery Doppler pending. Qualifiers: Hypertension type: essential hypertension Qualified Code(s): I10 - Essential (primary) hypertension (2) Hyperkalemia Current Visit: Yes Status: Resolved Serum potassium 4.7 today. Unsure of the exact etiology of the patient's hyperkalemia, but may be related to his hyperglycemia or multiple wounds. Continue glycemic control. Continue renal diet. No indications for renal replacement therapy at this time. (3) Hyperglycemia Current Visit: Yes Status: Acute Hyperglycemia in the setting of diabetes mellitus. Blood sugars improving. Management per primary team. (4) CKD (chronic kidney disease) stage 3, GFR 30-59 ml/min Current Visit: Yes Status: Chronic Patient will need an outpatient follow up with Dr. Purdy upon discharge. Subjective Principal diagnosis: Foot infection Interval history: Patient seen and examined at the bedside. No acute events overnight per nursing staff. He has no other current complaints at this time, tolerating a renal diet. Objective - Vital Signs Vital signs: Vital Signs Temp Pulse Resp BP Pulse Ox 11/15/16 07:56 97.4 F L 61 16 176/73 94 L 11/15/16 04:34 18 89 L 11/15/16 04:04 97.3 F L 65 12 143/72 95 11/14/16 23:41 97.3 F L 63 12 123/72 93 L 11/14/16 20:28 96 11/14/16 20:18 18 94 L 11/14/16 18:57 97.4 F L 63 12 132/69 93 L 11/14/16 15:15 97.8 F 70 16 175/83 95 11/14/16 11:15 20 90 L 11/14/16 11:00 97.6 F 75 16 151/75 93 L Intake and Output 11/14/16 11/15/16 11/15/16 23:59 07:59 15:59 Intake Total 100 / 100 100 / 100 Balance 100 / 100 100 / 100 Intake: IV Fluids 100 / 100 100 / 100 Unasyn 3,000 MG In 0.9 % 100 / 100 100 / 100 Sodium Chloride (Mini-Bag +) 100 ML @ 200 mls/hr IVPB Q6H [facility] Rx#: [id number] Other: Blood Glucose* 177 81 - General Appearance Exam: General: Patient is alert and in no acute distress HEENT: Normocephalic atraumatic, pupils are equal round and reactive to light and accommodation, tympanic membrane is intact, nares is patent, mucous membranes moist, throat is not injected, no JVD, trachea is midline Cardiovascular: Regular rate and rhythm without murmur Respiratory: Lungs are clear to auscultation bilaterally, no wheezing, rhonchi, rales Abdomen: Soft, nontender, obese, positive bowel sounds in all 4 quadrants Extremities: Right foot with wound VAC in place, trace lower extremity edema Neuro: A&Ox3, speech is appropriate, cranial nerves II through XII are normal as tested - Lab 11/15/16 04:15 11/15/16 04:15 Most recent lab results Calcium 8.4 mg/dL (8.6-10.8) L 11/15/16 04:15 Magnesium 1.9 mg/dL (1.6-2.6) 11/06/16 05:57 Urine Creatinine 47 mg/dL 11/12/16 15:20 Urine Sodium 65.0 mEq/L 11/12/16 15:20 Consult Discharge Plan - Plan Referrals: Luba Dorantes, PAC [Physician Residential Property Consultant] - 11/20/16 11:40 am
[2016-11-15] MEDS ORDERED: Furosemide 20 MG/2 ML VIAL IVP ONE (08:55)
[2016-11-15] MEDS: Lactobacillus 1 EACH CAP.SPRINK PO SCH ×2 (09:18→21:17)
[2016-11-15] MEDS: cloNIDine HCl 0.1 MG TABLET PO SCH ×3 (09:18→21:19)
[2016-11-15] MEDS: NIFEdipine XL (24 HR) 60 MG TAB.ER.24 PO SCH (09:18)
[2016-11-15] MEDS: predniSONE 20 MG TABLET PO SCH (09:19)
[2016-11-15] MEDS: Cholecalciferol (D-3) 1,000 UNIT TABLET PO SCH (09:19)
[2016-11-15] MEDS: hydrALAZINE 25 MG TABLET PO SCH ×3 (09:19→17:33)
[2016-11-15] MEDS: Aspirin Enteric Coated 81 MG Tablet PO SCH (09:19)
[2016-11-15] MEDS: Gabapentin 300 MG CAPSULE PO SCH ×3 (09:19→21:16)
[2016-11-15] MEDS: Nicotine 21 MG PATCH.TD24 TD SCH (09:20)
[2016-11-15] MEDS: Insulin LISPRO 300 UNITS/3 ML VIAL SQ SCH ×6 (09:20→21:22)
[2016-11-15] MEDS: Insulin DETEMIR 100 UNIT/ML X5UNITS SQ SCH ×2 (10:08→21:22)
--- NOTE | 2016-11-15 14:56 | Internal Med Progress Note ---
Date of Encounter: 11/15/16 Time of Encounter: 10:00 - Assessment and plan (1) Diabetic ulcer of both feet associated with type 2 diabetes mellitus Current Visit: Yes Status: Acute Assessment and plan: Blood sugars has better control now. On high level basal, pradial, and sliding scale insulin. Foot ulcer are management by podiatry (2) Hyperkalemia Current Visit: Yes Status: Resolved Assessment and plan: Improved. Continue renal diet. Follow-up potassium level. Nephrology consult appreciated. (3) Osteomyelitis of foot, right, acute Current Visit: Yes Status: Acute Assessment and plan: On IV Unasyn. Will complete 4-6 week treatment course with intravenous antibiotics. WBC count is better today. Elevated also due to prednisone use. Continue local wound care. Follow up with podiatry after discharge. PICC line has been placed for prison abx use. (4) CKD (chronic kidney disease) stage 3, GFR 30-59 ml/min Current Visit: Yes Status: Chronic Assessment and plan: Renal function stable overall. nephrology was counseled for recommendations as patient is having hyperkalemia and poorly controlled HTN. (5) Hypertension Current Visit: Yes Status: Chronic Assessment and plan: Uncontrolled. On hydralazine to 50 mg every 6 hours and carvedilol to 25 mg by mouth twice a day. Add clonidine and nifedipine. Increase clonidine dose today. Monitor blood pressure. Secondary hypertension workup is pending result. High risk for complications due to accelerated hypertension. Qualifiers: Hypertension type: essential hypertension Qualified Code(s): I10 - Essential (primary) hypertension (6) DVT prophylaxis Current Visit: No Status: Acute Assessment and plan: Heparin subcutaneously - Time Spent With Patient Greater than 35 minutes - Subjective Interval history: Patient is a 61-year-old male admitted for diabetic foot. His past medical history is significant for COPD, diabetes, hyperlipidemia, hypertension, CKD. Patient was seen and examined. He is awake alert, oriented 3. Complaint of pain but well controlled by pain medication. No nausea, no vomiting. S/P podiatry procedure. Patient complains of chest congestion. With bilateral pedal edema. We will try a low dose diuretics, closely monitor renal function. His blood pressure is still high. Secondary hypertension workup has ordered, result is pending. Hyperkalemia has improved. - Constitutional Vitals: Temp Pulse Resp BP Pulse Ox 97.4 F L 65 16 178/81 94 L 11/15/16 11:10 11/15/16 11:10 11/15/16 11:10 11/15/16 11:10 11/15/16 11:10 General appearance: Present: cooperative, A&O X 3, pleasant, obese, answers questions appropriately - Head Head exam: Present: atraumatic, normocephalic - Eye Eye exam: Present: PERRL, conjuntiva pink, sclera anicteric Pupils: Present: PERRL - Neck Neck exam general surgery: Present: supple, trachea midline. Absent: lymphadenopathy - Respiratory Respiratory exam: Present: CTAB. Absent: accessory muscle use, rales, rhonchi, wheezes - Cardiovascular Cardiovascular exam: Present: RRR, +S1, +S2. Absent: diastolic murmur, gallop, rubs, systolic murmur - GI/Abdominal GI/Abdominal exam: Present: normal bowel sounds, soft, no peritoneal signs. Absent: distended, tenderness - Extremities Exam Extremities exam: Present: pedal edema (Mild to moderate pedal edema bilaterally ), warm, radial pulses palpable and symetrical. Absent: calf tenderness, cyanotic - Neurological Exam Neurological exam: Present: CN II-XII intact, oriented X3, no focal deficits. Absent: pronater drift, facial droop, speech deficit - Skin Skin exam: Present: dry, intact Internal Medicine: Result - Labs CBC & Chem 7: 11/15/16 04:15 11/15/16 04:15 Labs: Short CBC 11/15/16 Range/Units 04:15 WBC 12.5 H (4.3-11.1) K/mcL Hgb 8.5 L (12.9-16.9) g/dL Hct 26.3 L (37.5-50.1) % Plt Count 527 H (140-400) K/mcL Neutrophils # 10.3 H (1.6-8.9) K/mcL BMP 11/15/16 04:15 Sodium 141 Potassium 4.7 H Chloride 111 H Carbon Dioxide 20 BUN 67 H Creatinine 2.12 H Glucose 84 Calcium 8.4 L - Impressions Impressions Retroperitoneum Ultrasound 11/14/16 16:30 IMPRESSION: Unremarkable ultrasound of the kidneys and urinary bladder. D/ / Tracy Hopkins Cha, MD / Tracy Hopkins Cha, MD Interpreting Provider: Tracy Hopkins Cha, MD Consult Discharge Plan - Plan Referrals: Luba Dorantes, PAC [Physician Nursery Worker] - 11/20/16 11:40 am
[2016-11-15] MEDS ORDERED: Insulin LISPRO 300 UNITS/3 ML VIAL SQ SCH (17:11)
--- NOTE | 2016-11-15 19:17 | Podiatry Progress Note ---
Date of Encounter: 11/15/16 Time of Encounter: 12:00 - Assessment and Plan (1) Renal failure Current Visit: No Status: Acute 1. Nephrology consulted and following patient. (2) Peripheral vascular disease due to secondary diabetes Current Visit: No Status: Acute 1. ISIDRO of BLE completed on 11/05/16: Right: 0.98 Left: 0.94 (3) Foot ulcer Current Visit: No Status: Chronic 1. Dressing changed to left foot, ulceration is superficial. Dressing changed at bedside. Significant improvement in ulceration to the left foot. No erythema , no pus, no odor, no erythema, no streaking. Scant amount of serous drainage observed to dressing. 2. Wound care orders to include cleansing ulcer of left foot daily with mild soap and water, pat dry, apply dry sterile 4x4 gauze with kerlix. Qualifiers: Laterality: right Non-pressure ulcer stage: with fat layer exposed Qualified Code(s): L97.512 - Non-pressure chronic ulcer of other part of right foot with fat layer exposed (4) Diabetes mellitus with neuropathy Current Visit: Yes Status: Chronic Qualifiers: Diabetes mellitus type: type 2 Diabetes mellitus terminal operations manager insulin use: with terminal operations manager use Qualified Code(s): E11.40 - Type 2 diabetes mellitus with diabetic neuropathy, unspecified; Z79.4 - long term care pharmacist (current) use of insulin (5) Osteomyelitis of foot, right, acute Current Visit: Yes Status: Acute 1. s/p incision and drainage to bone cortex for osteomyelitis #5 metatarsal right, open amputation of toe #5 with metatarsal #5 right foot, application wound VAC on 11/06/16. Wound vac intact with 15 cc of serosanguineous drainage observed to wound vac chamber. 2. WBC 12.5, a febrile. Intraop cultures: Proteus Vulgaris, enterococcus faecalis. 3. Patient will need terminal operations manager IV antibiotics x 6 weeks with wound vac changes every M-W-. Wound vac: black sponge, connected to 125 mmhg continuous suction. Wound vac changed today. 4. Patient accepted to [place]. Patient to continue use of tall cam boot, protective weight bearing with walker. 5. Patient will need a f/u with Dr. Pace in wound care with in one of discharge from the hospital. Subjective Principal diagnosis: Foot infection Interval history: Patient is s/p incision and drainage to bone cortex for osteomyelitis #5 metatarsal right, open amputation of toe #5 with metatarsal #5 right foot, application wound VAC by Dr. Pace on 11/06/16. Patient is sitting up in bed with dressings dry and intact to both feet. Wound vac intact to the right Patient denies any pain in his feet, fever, nausea, vomiting overnight. Patient states he has swelling to BLE. Patients wound vac was changed on . Objective - Vital Signs Vital Signs: Vital Signs Temp Pulse Resp BP Pulse Ox 11/15/16 15:20 97.4 F L 64 16 163/82 94 L 11/15/16 11:10 97.4 F L 65 16 178/81 94 L 11/15/16 09:20 95 11/15/16 07:56 97.4 F L 61 18 176/73 95 11/15/16 04:34 18 89 L 11/15/16 04:04 97.3 F L 65 12 143/72 95 11/14/16 23:41 97.3 F L 63 12 123/72 93 L 11/14/16 20:28 96 11/14/16 20:18 18 94 L Intake and Output 11/15/16 11/15/16 11/15/16 07:59 15:59 23:59 Intake Total 200 / 200 1360 / 1360 240 / 240 Balance 200 / 200 1360 / 1360 240 / 240 Intake: IV Fluids 200 / 200 100 / 100 Unasyn 3,000 MG In 0.9 % 200 / 200 100 / 100 Sodium Chloride (Mini-Bag +) 100 ML @ 200 mls/hr IVPB Q6H [facility] Rx#: [id number] Oral 1260 / 1260 240 / 240 Other: Meal Lunch Dinner Percent of Meal Consumed 100% 100% Blood Glucose* 81 185 72 - Exam Exam: General appearance: alert awake oriented X 3. Calm and pleasant, no acute distress.. Vascular: Pedal pulses 0/4 DP/PT , No evidence of cyanosis, pallor or rubor, Edema graded at 1+/4, Skin Temperature warm, No calf pain with manual compression. capillary refill time is immediate to digits. Neurologic: Sensation absent with light touch to both feet . Ulcer: Superficial ulceration to the left foot at the fifth metatarsal head plantar aspect measuring 1.8 cm in length x 1.8 cm in width. scant amount of serous drainage observed to dressing. No probe to bone, no odor, no erythema, no streaking, no fluctuance. Post op: Wound VAC intact to right foot with black sponge, 125 mmhg continuous suction, 10 ccs of serous drainage observed to wound vac chamber. light periwound erythema with macerated edges, no streaking, no lymphangitis, no purulent drainage, no fluctuance, no warmth. - Lab Result Diagrams: 11/15/16 04:15 11/15/16 04:15 Labs: Abnormal lab results WBC 12.5 K/mcL (4.3-11.1) H 11/15/16 04:15 RBC 3.03 M/mcL (4.19-5.50) L 11/15/16 04:15 Hgb 8.5 g/dL (12.9-16.9) L 11/15/16 04:15 Hct 26.3 % (37.5-50.1) L 11/15/16 04:15 RDW 15.4 % (11.5-14.5) H 11/15/16 04:15 Plt Count 527 K/mcL (140-400) H 11/15/16 04:15 MPV 8.8 fL (9.4-12.4) L 11/15/16 04:15 Immature Gran % 4.5 % (0-4) H 11/15/16 04:15 Metamyelocytes % 4.0 % (0) H 11/13/16 03:25 Myelocytes % 4.0 % (0) H 11/14/16 03:45 Neutrophils # 10.3 K/mcL (1.6-8.9) H 11/15/16 04:15 Nucleated RBCs/100 WBC 0.1 /100 WBC (0) H 11/14/16 03:45 Reactive Lymphocytes Present (Not Present) A 11/13/16 03:25 Toxic Vacuolation Present (Not Present) A 11/13/16 03:25 Platelet Estimate Marked Decrease (Normal) L 11/14/16 03:45 Immature Plt Fraction 0.9 % (1.1-6.1) L 11/13/16 03:25 Polychromasia 1+ (Not Present) A 11/12/16 05:00 ESR 66 mm/hr (0-10) H 11/12/16 08:30 Potassium 4.7 mEq/L (3.5-4.5) H 11/15/16 04:15 Chloride 111 mEq/L (98-109) H 11/15/16 04:15 BUN 67 mg/dL (8-26) H 11/15/16 04:15 Creatinine 2.12 mg/dL (0.72-1.25) H 11/15/16 04:15 Est GFR ( Amer) 39 (> 60) L 11/15/16 04:15 Est GFR (Non-Af Amer) 32 (> 60) L 11/15/16 04:15 BUN/Creatinine Ratio 32 (6-26) H 11/15/16 04:15 Calculated Osmolality 311 (280-300) H 11/15/16 04:15 Uric Acid 8.4 mg/dL (3.5-7.2) H 11/12/16 05:03 Calcium 8.4 mg/dL (8.6-10.8) L 11/15/16 04:15 Creatine Kinase 25 Units/L (30-200) L 11/12/16 05:03 C-Reactive Protein 13 mg/L (Less than 5) H 11/12/16 08:30 Urine Protein 100 mg/dL (Neg-Trace) H 11/12/16 15:20 Urine Glucose (UA) 250 mg/dL (Normal) H 11/12/16 15:20 Urine Microscopic RBC 3-5 per hpf (0-3) H 11/12/16 15:20 Ur Squamous Epith Cells Moderate per lpf (None-Few) H 11/12/16 15:20 Consult Discharge Plan - Plan Referrals: Luba Dorantes, PAC [Physician Will Call Order Clerk] - 11/20/16 11:40 am
--- NOTE | 2016-11-15 21:14 | Arterial Study Report ---
Renal Duplex Patient Name:Nikita Regalado Order Number:[id number] Procedure Date:11/15/2016 Date:1955ge:61 yrs Gender:Male Location:[facility] Room #: 3B39 Naturopathic Doctor:Cynthia Alanis RDCS, RVT Referring MD:Glenda Campos DO editor continuity and script:Mark Coe MD Reading MD:Loki Danielle MD , FACS Primary Indications:Uncontrollable Hypertension Risk Factors Yes/No Hypertension Yes Diabetes Yes Hypercholesterolemia Yes Smoking Current Yes Hx of CAD/PTCA Yes Impressions: Findings: bilateral renal artery is hemodynamically well maintained. Recommendations: After imaging the patient returned to their room. Findings Renal Anatomy: The right kidney size measures 10.4 x 5.3 x 5.6 cm. The left kidney size measures 12.2 x 6.3 x 8 cm. Prior Study: No prior study available for comparison. Renal Duplex Side Vessel PSV EDV RI PI Accel Aorta 44.00 8.00 0.82 Left Proximal Renal Artery 69.00 9.00 0.87 Left Mid Renal Artery 61.00 15.00 0.75 Left Distal Renal Artery 53.00 8.00 0.85 Left Renal Artery Hilum 26.00 6.00 0.77 Right Proximal Renal Artery 82.00 14.00 0.83 Right Mid Renal Artery 61.00 13.00 0.79 Right Distal Renal Artery 58.00 9.00 0.84 Right Renal Artery Hilum 58.00 7.00 0.88 Updated by Loki Danielle MD, FACS on 11/15/2016 9:08:56 PM Loki Danielle MD electronically signed on 11/15/2016 9:09:42 PM with status of Final
[2016-11-15] MEDS: traZODone 50 MG TABLET PO SCH (21:17)
[2016-11-15] MEDS: rOPINIRole 1 MG TABLET PO SCH (21:19)
[2016-11-16] MEDS: hydrALAZINE 25 MG TABLET PO SCH ×4 (00:19→17:07)
[2016-11-16] MEDS: Ampicillin/Sulbactam 3,000 MG in 0.9 % Sodium Chloride Mini Bag 100 ML IVPB SCH ×4 (00:20→15:53)
[2016-11-16] MEDS ORDERED: methylPREDNISolone 125 MG/2 ML VIAL IVP ONE (02:19)
[2016-11-16] MEDS ORDERED: Furosemide 40 MG/4 ML VIAL IVP ONE (02:19)
[2016-11-16] MEDS ORDERED: Albuterol 2.5 MG/3 ML NEBULIZER IH ONE (02:21)
[2016-11-16] MEDS ORDERED: Furosemide 100 MG/10 ML VIAL ONE (02:28)
[2016-11-16] MEDS ORDERED: methylPREDNISolone 125 MG/2 ML VIAL ONE (02:29)
[2016-11-16 02:37] LABS: ABG Base Excess -3.7 mEq/L (-2.0 to 3.0); ABG HCO3 22.2 mEQ/L (21-27); ABG Oxygen Saturation 82 % (95-98); ABG PCO2 43 mmHg (35-45); ABG PH 7.32 pH Units (7.32-7.45); ABG PO2 51 mmHg (85-104); ABG TCO2 23.5 mEq/L (20-26); Blood Gas Liter Flow 4 L/MIN
[2016-11-16 02:38] LABS: Blood Gas FiO2 36 %
[2016-11-16 02:50] LABS: Basophils % 0.1 %; Eosinophils # 0.1 K/mcL (0.0-0.6); Eosinophils % 0.7 %; Hematocrit 26.8 % (37.5-50.1); Hemoglobin 8.4 g/dL (12.9-16.9); Immature Granulocytes % 2.6 % (0-4); Lymphocytes # 0.9 K/mcL (0.6-4.6); Lymphocytes % 6.5 %; Mean Corpuscular HGB Conc 31.3 g/dL (31.6-35.5); Mean Corpuscular Hemoglobin 27.2 pg (28.0-33.3); Mean Corpuscular Volume 86.7 fL (83.0-100.0); Mean Platelet Volume 8.9 fL (9.4-12.4); Monocytes # 0.5 K/mcL (0.0-1.3); Monocytes % 3.9 %; Neutrophils # 11.6 K/mcL (1.6-8.9); Platelet Count 463 K/mcL (140-400); Red Blood Count 3.09 M/mcL (4.19-5.50); Red Cell Distribution Width 15.7 % (11.5-14.5); Segmented Neutrophils % 86.2 %
[2016-11-16 03:03] LABS: Calcium 8.4 mg/dL (8.6-10.8); Potassium 5.3 mEq/L (3.5-4.5)
[2016-11-16] MEDS: Ipratropium/Albuterol Neb 3 ML IH SCH ×5 (04:38→20:14)
[2016-11-16] MEDS: methylPREDNISolone 125 MG/2 ML VIAL IVP SCH ×3 (06:27→17:08)
[2016-11-16] MEDS: *HR* Heparin 5,000 UNIT/ML VIAL SQ SCH ×2 (06:27→20:50)
[2016-11-16] MEDS: Budesonide/Formoterol 160/4.5 MDI IH SCH ×2 (07:39→20:14)
[2016-11-16] MEDS: Tiotropium 18 MCG inhalation IH SCH (07:44)
[2016-11-16] MEDS: Lactobacillus 1 EACH CAP.SPRINK PO SCH ×2 (08:42→20:54)
[2016-11-16] MEDS: NIFEdipine XL (24 HR) 30 MG TAB.ER.24 PO SCH (08:42)
[2016-11-16] MEDS: Gabapentin 300 MG CAPSULE PO SCH ×3 (08:42→20:54)
[2016-11-16] MEDS: Nicotine 21 MG PATCH.TD24 TD SCH (08:43)
[2016-11-16] MEDS: Cholecalciferol (D-3) 1,000 UNIT TABLET PO SCH (08:43)
[2016-11-16] MEDS: cloNIDine HCl 0.1 MG TABLET PO SCH ×3 (08:43→20:54)
[2016-11-16] MEDS: Furosemide 40 MG/4 ML VIAL IVP SCH (08:43)
[2016-11-16] MEDS: Insulin LISPRO 300 UNITS/3 ML VIAL SQ SCH ×7 (08:44→20:57)
[2016-11-16] MEDS: Insulin DETEMIR 100 UNIT/ML X5UNITS SQ SCH ×2 (08:44→21:47)
[2016-11-16] MEDS: Aspirin Enteric Coated 81 MG Tablet PO SCH (08:44)
[2016-11-16] MEDS ORDERED: predniSONE 10 MG TABLET PO SCH (09:00)
--- NOTE | 2016-11-16 16:00 | Internal Med Progress Note ---
Date of Encounter: 11/16/16 Time of Encounter: 10:00 - Assessment and plan (1) Diabetic ulcer of both feet associated with type 2 diabetes mellitus Current Visit: Yes Status: Acute Assessment and plan: Blood sugars has better control now. On high level basal, pradial, and sliding scale insulin. Foot ulcer are management by podiatry. Unasyn dose has been decreased because of borderline and slightly worsening renal function. (2) Hyperkalemia Current Visit: Yes Status: Resolved Assessment and plan: Improved. Continue renal diet. Follow-up potassium level. Nephrology consult appreciated. (3) Osteomyelitis of foot, right, acute Current Visit: Yes Status: Acute Assessment and plan: On IV Unasyn. Will complete 4-6 week treatment course with intravenous antibiotics. WBC count is better today. Elevated also due to prednisone use. Continue local wound care. Follow up with podiatry after discharge. PICC line has been placed for superintendent container terminal abx use. (4) CKD (chronic kidney disease) stage 3, GFR 30-59 ml/min Current Visit: Yes Status: Chronic Assessment and plan: Renal function stable overall. nephrology was counseled for recommendations as patient is having hyperkalemia and poorly controlled HTN. (5) Hypertension Current Visit: Yes Status: Chronic Assessment and plan: Uncontrolled. On hydralazine to 50 mg every 6 hours and carvedilol to 25 mg by mouth twice a day. Add clonidine and nifedipine and dose adjusted today. Monitor blood pressure. Secondary hypertension workup is pending result. His hypertension has improved today. Qualifiers: Hypertension type: essential hypertension Qualified Code(s): I10 - Essential (primary) hypertension (6) DVT prophylaxis Current Visit: No Status: Acute Assessment and plan: Heparin subcutaneously (7) Diastolic CHF Current Visit: Yes Status: Acute Assessment and plan: Patient has history of diastolic CHF. Will increase shortness of breath last night. Possibly worsen by hypertension. Will continue Lasix treatment. Qualifiers: Congestive heart failure chronicity: chronic Qualified Code(s): I50.32 - Chronic diastolic (congestive) heart failure - Time Spent With Patient 25 - 35 minutes - Subjective Interval history: Patient is a 61-year-old male admitted for diabetic foot. His past medical history is significant for COPD, diabetes, hyperlipidemia, hypertension, CKD. Patient was seen and examined. He has shortness of breath last night, with chest congestion. Lasix 80 mg IV was given. Patient was moved to 2 N. and put on BiPAP. This morning when he saw him, his shortness of breath has improved. He said he has a lot of urine output (I/O balance -290ml per nurse record). Review of his old chart, his echo in December 2015 shows moderate diastolic dysfunction. Chest x-ray shows pulmonary edema. We will continue Lasix 40 mg IV daily and closely monitor patient. His blood pressure and hypokalemia has improved. - Constitutional Vitals: Temp Pulse Resp BP Pulse Ox 97.6 F 78 16 149/68 92 L 11/16/16 11:07 11/16/16 13:27 11/16/16 13:27 11/16/16 11:07 11/16/16 13:27 General appearance: Present: cooperative, A&O X 3, pleasant, obese, answers questions appropriately - Head Head exam: Present: atraumatic, normocephalic - Eye Eye exam: Present: PERRL, conjuntiva pink, sclera anicteric Pupils: Present: PERRL - Neck Neck exam general surgery: Present: supple, trachea midline. Absent: lymphadenopathy - Respiratory Respiratory exam: Present: CTAB. Absent: accessory muscle use, rales, rhonchi, wheezes - Cardiovascular Cardiovascular exam: Present: RRR, +S1, +S2. Absent: diastolic murmur, gallop, rubs, systolic murmur - GI/Abdominal GI/Abdominal exam: Present: normal bowel sounds, soft, no peritoneal signs. Absent: distended, tenderness - Extremities Exam Extremities exam: Present: pedal edema (b/l), warm, radial pulses palpable and symetrical. Absent: calf tenderness, cyanotic - Neurological Exam Neurological exam: Present: CN II-XII intact, oriented X3, no focal deficits. Absent: pronater drift, facial droop, speech deficit - Skin Skin exam: Present: dry, intact Internal Medicine: Result - Labs CBC & Chem 7: 11/16/16 Unknown 11/16/16 Unknown Labs: Short CBC 11/16/16 Range/Units Unknown WBC 13.4 H (4.3-11.1) K/mcL Hgb 8.4 L (12.9-16.9) g/dL Hct 26.8 L (37.5-50.1) % Plt Count 463 H (140-400) K/mcL Neutrophils # 11.6 H (1.6-8.9) K/mcL BMP 11/16/16 Unknown Sodium 139 Potassium 5.3 H Chloride 109 Carbon Dioxide 20 BUN 73 H Creatinine 2.43 H Glucose 225 H Calcium 8.4 L Cardiac Enzymes 11/16/16 Range/Units Unknown Troponin I 0.00 (0-0.03) ng/mL - ABG Interpretation ABG results: ABG ABG pH 7.32 pH Units (7.32-7.45) 11/16/16 02:30 ABG pCO2 43 mmHg (35-45) 11/16/16 02:30 ABG pO2 51 mmHg (85-104) L 11/16/16 02:30 ABG O2 Saturation 82 % (95-98) L 11/16/16 02:30 - Impressions Impressions Chest X-Ray 11/16/16 02:23 IMPRESSION: Findings likely represent a combination of pulmonary edema and left lower lobe atelectasis or pneumonia. D/ / Margarito Montes MD / Margarito Montes MD Interpreting Provider: Margarito Montes MD Consult Discharge Plan - Plan Referrals: Luba Dorantes, PAC [Physician Outside Sales Inspector] - 11/20/16 11:40 am
--- NOTE | 2016-11-16 16:54 | Nephrology Progress Note ---
Date of Encounter: 11/16/16 Time of Encounter: 16:40 - Assessment and Plan (1) Acute kidney injury superimposed on chronic kidney disease Current Visit: No Status: Acute SCR worse today at 2.43, GFR 27 likely due to diuretic use, will advise taper down UOP not documented yesterday but almost 3liters documented today so far Avoid nephrotoxins if possible (2) Anemia Current Visit: Yes Status: Acute Hgb stable around 8.5, will monitor Qualifiers: Anemia type: other cause Other causes of anemia: chronic disease, kidney Qualified Code(s): N18.9 - Chronic kidney disease, unspecified; D63.1 - Anemia in chronic kidney disease (3) CKD (chronic kidney disease) stage 3, GFR 30-59 ml/min Current Visit: Yes Status: Chronic Baseline around 30-40s but has been fluctuating in the past 3 weeks (4) Hypertension Current Visit: Yes Status: Chronic Qualifiers: Hypertension type: essential hypertension Qualified Code(s): I10 - Essential (primary) hypertension (5) Hyperkalemia Current Visit: Yes Status: Resolved Potassium elevated at 5.4 from 4.7 yesterday suspect possible type 4 RTA, will consider adding bicarb tabs if tolerated given uncontrolled BP Lasix should help his hyperkalemia, will monitor for now on renal diet Subjective Principal diagnosis: Foot infection Interval history: Interim events noted, pt seen and examined resting comfortably but arousable. Cardoso in place. Objective - Vital Signs Vital signs: Vital Signs Temp Pulse Resp BP Pulse Ox 11/16/16 16:02 97.8 F 68 18 128/92 91 L 11/16/16 15:37 69 11/16/16 13:27 78 16 92 L 11/16/16 12:00 66 18 93 L 11/16/16 11:11 18 93 L 11/16/16 11:07 97.6 F 68 18 149/68 93 L 11/16/16 07:39 18 93 L 11/16/16 07:36 65 11/16/16 07:20 97.4 F L 60 16 156/76 97 11/16/16 05:12 97.4 F L 60 18 177/87 95 11/16/16 05:00 17 95 11/16/16 04:50 18 93 L 11/16/16 04:39 18 94 L 11/16/16 03:57 97.4 F L 58 18 171/85 92 L 11/16/16 02:41 17 94 L 11/16/16 00:25 87 L 11/15/16 23:25 97.3 F L 62 18 143/68 89 L 11/15/16 20:46 18 89 L 11/15/16 19:20 97.6 F 65 18 149/67 90 L Intake and Output 11/16/16 11/16/16 11/16/16 07:59 15:59 23:59 Intake Total 200 / 200 960 / 960 Output Total 1450 / 1450 1400 / 1400 Balance -1250 / -1250 -440 / -440 Intake: IV Fluids 200 / 200 Unasyn 3,000 MG In 0.9 % 200 / 200 Sodium Chloride (Mini-Bag +) 100 ML @ 200 mls/hr IVPB Q6H [facility] Rx#: [id number] Oral 0 / 0 960 / 960 Output: Catheter 1450 / 1450 1400 / 1400 Other: Meal Lunch Percent of Meal Consumed 100% Stool Size Small Stool Consistency loose Stool Characteristics Normal for Patient Stool Color Brown # Voids 1 Weight 110.1 kg Blood Glucose* 317 391 394 Patient Weight 11/16/16 23:59 Weight 110.1 kg - General Appearance General appearance: Present: chronically ill (NAD) EENT: Present: ATNC, mucous membranes moist Neck: Present: no JVD, supple Respiratory: Present: course breath sounds Cardiology: Present: edema (Trace LLE edema, RLE with boot), normal S1, normal S2 Gastrointestinal: Present: no tenderness, no guarding, obese Integumentary: Present: warm and dry Neurologic: Present: no focal deficit Musculoskeletal: Present: no deformities Psychiatric: Present: mood/affect appropriate - Lab 11/17/16 04:34 11/17/16 04:34 Most recent lab results ABG pH 7.32 pH Units (7.32-7.45) 11/16/16 02:30 ABG pCO2 43 mmHg (35-45) 11/16/16 02:30 ABG pO2 51 mmHg (85-104) L 11/16/16 02:30 ABG HCO3 22.2 mEQ/L (21-27) 11/16/16 02:30 ABG O2 Saturation 82 % (95-98) L 11/16/16 02:30 Calcium 8.4 mg/dL (8.6-10.8) L 11/16/16 Unknown Magnesium 1.9 mg/dL (1.6-2.6) 11/06/16 05:57 Urine Creatinine 47 mg/dL 11/12/16 15:20 Urine Sodium 65.0 mEq/L 11/12/16 15:20 Consult Discharge Plan - Plan Referrals: Luba Dorantes, PAC [Physician Guest Services Attendant] - 11/20/16 11:40 am
[2016-11-16] MEDS: rOPINIRole 1 MG TABLET PO SCH (20:52)
[2016-11-16] MEDS: traZODone 50 MG TABLET PO SCH (20:54)
[2016-11-16] MEDS: *HR* OxyCODONE Immed Rel 5 MG TABLET PO PRN (20:57)
[2016-11-17] MEDS: Ipratropium/Albuterol Neb 3 ML IH SCH ×6 (00:12→18:40)
[2016-11-17] MEDS: hydrALAZINE 25 MG TABLET PO SCH ×4 (00:39→18:41)
[2016-11-17] MEDS: methylPREDNISolone 125 MG/2 ML VIAL IVP SCH ×4 (00:40→19:40)
[2016-11-17] MEDS: *HR* Morphine 2 MG/ML SYRINGE IVP PRN ×2 (01:23→12:38)
[2016-11-17] MEDS: Ampicillin/Sulbactam 3,000 MG in 0.9 % Sodium Chloride Mini Bag 100 ML IVPB SCH ×2 (04:36→15:38)
[2016-11-17 04:52] LABS: Basophils % 0.1 %; Hematocrit 25.8 % (37.5-50.1); Hemoglobin 8.4 g/dL (12.9-16.9); Lymphocytes # 0.6 K/mcL (0.6-4.6); Mean Corpuscular HGB Conc 32.6 g/dL (31.6-35.5); Mean Corpuscular Hemoglobin 28.1 pg (28.0-33.3); Mean Corpuscular Volume 86.3 fL (83.0-100.0); Mean Platelet Volume 9.1 fL (9.4-12.4); Monocytes # 0.3 K/mcL (0.0-1.3); Monocytes % 2.1 %; Neutrophils # 12.7 K/mcL (1.6-8.9); Platelet Count 427 K/mcL (140-400); Red Blood Count 2.99 M/mcL (4.19-5.50); Red Cell Distribution Width 15.9 % (11.5-14.5); Segmented Neutrophils % 90.8 %
[2016-11-17 05:24] LABS: Calcium 8.6 mg/dL (8.6-10.8); Potassium 5.2 mEq/L (3.5-4.5)
[2016-11-17] MEDS: *HR* Heparin 5,000 UNIT/ML VIAL SQ SCH (06:18)
[2016-11-17] MEDS: Cholecalciferol (D-3) 1,000 UNIT TABLET PO SCH (07:59)
[2016-11-17] MEDS: NIFEdipine XL (24 HR) 30 MG TAB.ER.24 PO SCH (08:00)
[2016-11-17] MEDS: Nicotine 21 MG PATCH.TD24 TD SCH (08:00)
[2016-11-17] MEDS: cloNIDine HCl 0.1 MG TABLET PO SCH ×2 (08:00→15:38)
[2016-11-17] MEDS: Aspirin Enteric Coated 81 MG Tablet PO SCH (08:00)
[2016-11-17] MEDS: Furosemide 40 MG/4 ML VIAL IVP SCH ×2 (08:01→20:45)
[2016-11-17] MEDS: Gabapentin 300 MG CAPSULE PO SCH ×2 (08:01→15:38)
[2016-11-17] MEDS: Insulin LISPRO 300 UNITS/3 ML VIAL SQ SCH ×6 (08:01→18:37)
[2016-11-17] MEDS: Lactobacillus 1 EACH CAP.SPRINK PO SCH (08:01)
[2016-11-17] MEDS ORDERED: *HR* EPINEPHrine 1 MG/10 ML SYRINGE IVP ONE (08:38)
[2016-11-17] MEDS ORDERED: Furosemide 40 MG/4 ML VIAL IVP SCH (09:48)
[2016-11-17] MEDS: Tiotropium 18 MCG inhalation IH SCH (10:25)
[2016-11-17] MEDS: Budesonide/Formoterol 160/4.5 MDI IH SCH (10:26)
[2016-11-17] MEDS: Insulin DETEMIR 100 UNIT/ML X5UNITS SQ SCH ×2 (10:41→20:45)
--- NOTE | 2016-11-17 11:37 | Nephrology Progress Note ---
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 BUN elevated as well due to DANY and steroid use UOP over 3liters in the past 24hrs with diuretics, will monitor Avoid nephrotoxins if possible Will check urine eosinophils (2) Anemia Current Visit: Yes Status: Acute Hgb low but stable around 8.5, will monitor Will check iron levels Qualifiers: Anemia type: other cause Other causes of anemia: chronic disease, kidney Qualified Code(s): N18.9 - Chronic kidney disease, unspecified; D63.1 - Anemia in chronic kidney disease (3) CKD (chronic kidney disease) stage 3, GFR 30-59 ml/min Current Visit: Yes Status: Chronic GFR has been fluctuating greatly in the past 2 months but typically around 30- 40s at baseline (4) Hypertension Current Visit: Yes Status: Chronic BP improving arounf 120-150s systolic, continue current regimen Await the rest of secondary workup: aldosterone and cortisol WNL Renin and metanephrins still pending Qualifiers: Hypertension type: essential hypertension Qualified Code(s): I10 - Essential (primary) hypertension (5) Hyperkalemia Current Visit: Yes Status: Resolved Potassium remains elevated but slightly improved from 5.3 to 5.2 despite renal diet. Suspect possible type 4 RTA, will consider adding bicarb tabs if tolerated given uncontrolled BP, will hold for now Subjective Principal diagnosis: Foot infection Interval history: Pt seen and examined feels a little in terms of his breathing but still feels quite weak. BP readings stabilizing overall. Objective - Vital Signs Vital signs: Vital Signs Temp Pulse Resp BP Pulse Ox 11/17/16 08:09 63 11/17/16 07:50 97.4 F L 62 18 140/95 97 11/17/16 04:15 65 11/17/16 04:05 18 97 11/17/16 03:35 97.0 F L 61 18 167/83 94 L 11/16/16 20:50 68 11/16/16 20:16 25 98 11/16/16 19:36 97.4 F L 62 17 157/86 94 L 11/16/16 18:07 16 94 L 11/16/16 17:16 92 L 11/16/16 17:09 18 128/92 92 L 11/16/16 16:02 97.8 F 68 18 128/92 91 L 11/16/16 15:37 69 11/16/16 13:27 78 16 92 L 11/16/16 12:00 66 18 93 L Intake and Output 11/16/16 11/17/16 11/17/16 23:59 07:59 15:59 Intake Total 480 / 480 1200 / 1200 480 / 480 Output Total 350 / 350 0 / 0 Balance 130 / 130 1200 / 1200 480 / 480 Intake: Oral 480 / 480 1200 / 1200 480 / 480 Output: Catheter 350 / 350 Wound Drainage 0 / 0 Right Lateral Foot 0 / 0 Other: Meal Dinner Breakfast Percent of Meal Consumed 100% 100% # Bowel Movements 1 1 Weight 110.3 kg Blood Glucose* 327 85 Patient Weight 11/17/16 23:59 Weight 110.3 kg - General Appearance General appearance: Present: chronically ill (NAD) EENT: Present: ATNC, mucous membranes moist Neck: Present: no JVD, supple Respiratory: Present: course breath sounds Cardiology: Present: edema (trace LLE edema, RLE with boot), normal S1, normal S2 Gastrointestinal: Present: no tenderness, no guarding, obese Integumentary: Present: no rash, warm and dry Neurologic: Present: no focal deficit Musculoskeletal: Present: no deformities Psychiatric: Present: mood/affect appropriate - Lab 11/17/16 04:34 11/17/16 04:34 Most recent lab results ABG pH 7.32 pH Units (7.32-7.45) 11/16/16 02:30 ABG pCO2 43 mmHg (35-45) 11/16/16 02:30 ABG pO2 51 mmHg (85-104) L 11/16/16 02:30 ABG HCO3 22.2 mEQ/L (21-27) 11/16/16 02:30 ABG O2 Saturation 82 % (95-98) L 11/16/16 02:30 Calcium 8.6 mg/dL (8.6-10.8) 11/17/16 04:34 Magnesium 1.9 mg/dL (1.6-2.6) 11/06/16 05:57 Urine Creatinine 47 mg/dL 11/12/16 15:20 Urine Sodium 65.0 mEq/L 11/12/16 15:20 Consult Discharge Plan - Plan Referrals: Luba Dorantes, PAC [Physician Gravel Inspector] - 11/20/16 11:40 am
[2016-11-17] MEDS ORDERED: MOM Conc 10 ML UD.LIQ PO ONE (15:25)
--- NOTE | 2016-11-17 15:50 | Internal Med Progress Note ---
Date of Encounter: 11/17/16 Time of Encounter: 10:00 - Assessment and plan (1) Diabetic ulcer of both feet associated with type 2 diabetes mellitus Current Visit: Yes Status: Acute Assessment and plan: Blood sugars has better control now. On high level basal, pradial, and sliding scale insulin. Foot ulcer are management by podiatry. Unasyn dose has been decreased because of borderline and slightly worsening renal function. (2) Hyperkalemia Current Visit: Yes Status: Resolved Assessment and plan: Improved. Continue renal diet. Follow-up potassium level. Nephrology consult appreciated. (3) Osteomyelitis of foot, right, acute Current Visit: Yes Status: Acute Assessment and plan: On IV Unasyn. Will complete 4-6 week treatment course with intravenous antibiotics. WBC count is better today. Elevated also due to prednisone use. Continue local wound care. Follow up with podiatry after discharge. 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 (4) CKD (chronic kidney disease) stage 3, GFR 30-59 ml/min Current Visit: Yes Status: Chronic Assessment and plan: Renal function stable overall. nephrology was counseled for recommendations as patient is having hyperkalemia and poorly controlled HTN. (5) Hypertension Current Visit: Yes Status: Chronic Assessment and plan: Improved. On hydralazine 50 mg every 6 hours and carvedilol 25 mg by mouth twice a day. Add clonidine and nifedipine and dose adjusted . BP at 120-150 level. Secondary hypertension workup is pending result. Qualifiers: Hypertension type: essential hypertension Qualified Code(s): I10 - Essential (primary) hypertension (6) DVT prophylaxis Current Visit: No Status: Acute Assessment and plan: Heparin subcutaneously (7) Diastolic CHF Current Visit: Yes Status: Acute Assessment and plan: Patient has history of diastolic CHF. Shortness of breath improved after diuretics. Will continue low dose Lasix treatment. Qualifiers: Congestive heart failure chronicity: chronic Qualified Code(s): I50.32 - Chronic diastolic (congestive) heart failure - Time Spent With Patient 25 - 35 minutes - Subjective Interval history: Patient is a 61-year-old male admitted for diabetic foot. His past medical history is significant for COPD, diabetes, hyperlipidemia, hypertension, CKD. Patient was seen and examined. His shortness of breath has improved after diuretics. Will continue low dose of lasix po. His blood pressure and hypokalemia has improved. Slightly worsen renal function, will continue closely monitoring. - Constitutional Vitals: Temp Pulse Resp BP Pulse Ox 97.6 F 64 20 156/83 87 L 11/17/16 11:40 11/17/16 12:25 11/17/16 11:40 11/17/16 11:40 11/17/16 11:40 General appearance: Present: cooperative, A&O X 3, pleasant, obese, answers questions appropriately - Head Head exam: Present: atraumatic, normocephalic - Eye Eye exam: Present: PERRL, conjuntiva pink, sclera anicteric Pupils: Present: PERRL - Neck Neck exam general surgery: Present: supple, trachea midline. Absent: lymphadenopathy - Respiratory Respiratory exam: Present: CTAB. Absent: accessory muscle use, rales, rhonchi, wheezes - Cardiovascular Cardiovascular exam: Present: RRR, +S1, +S2. Absent: diastolic murmur, gallop, rubs, systolic murmur - GI/Abdominal GI/Abdominal exam: Present: normal bowel sounds, soft, no peritoneal signs. Absent: distended, tenderness - Extremities Exam Extremities exam: Present: pedal edema, warm, radial pulses palpable and symetrical. Absent: calf tenderness, cyanotic - Neurological Exam Neurological exam: Present: CN II-XII intact, oriented X3, no focal deficits. Absent: pronater drift, facial droop, speech deficit - Skin Skin exam: Present: dry, intact Internal Medicine: Result - Labs CBC & Chem 7: 11/17/16 04:34 11/17/16 04:34 Labs: Short CBC 11/17/16 Range/Units 04:34 WBC 14.0 H (4.3-11.1) K/mcL Hgb 8.4 L (12.9-16.9) g/dL Hct 25.8 L (37.5-50.1) % Plt Count 427 H (140-400) K/mcL Neutrophils # 12.7 H (1.6-8.9) K/mcL BMP 11/17/16 04:34 Sodium 141 Potassium 5.2 H Chloride 110 H Carbon Dioxide 19 BUN 90 H Creatinine 2.62 H Glucose 95 Calcium 8.6 - ABG Interpretation ABG results: ABG ABG pH 7.32 pH Units (7.32-7.45) 11/16/16 02:30 ABG pCO2 43 mmHg (35-45) 11/16/16 02:30 ABG pO2 51 mmHg (85-104) L 11/16/16 02:30 ABG O2 Saturation 82 % (95-98) L 11/16/16 02:30 Consult Discharge Plan - Plan Referrals: Luba Dorantes, PAC [Physician [employer]] - 11/20/16 11:40 am
[2016-11-17 17:47] LABS: Calcium 8.7 mg/dL (8.6-10.8); Potassium 4.8 mEq/L (3.5-4.5)
[2016-11-17] MEDS ORDERED: Lacri-Lube 3.5 GM TUBE BOTH EYES PRN (17:59)
--- NOTE | 2016-11-17 18:09 | Event Note ---
Date of Encounter: 11/17/16 Time of Encounter: 17:00 This afternoon about 5:00, patient has cardiac arrest. Per RN, patient complaint chest pain and suddenly lost consciousness and become pulseless. CODE BLUE was called and CPR started immediately. EKG shows PEA. Epinephrine 1 mg 2 was given. Bicarbonate 50 mEq was given. After about 10 minutes PCR patient regained pulse. patient was intubated during CPR. His blood pressure is at 150s. He is moving to ICU and placed on ventilator. Cardiology consult was called to help management. Patient will keep in ICU and closely monitor. ABG and labs was drawn. We will adjust the treatment according to the result.
[2016-11-17] MEDS ORDERED: Norepinephrine 4 MG in D5% in Water 250 ML IVC SCH (18:15)
[2016-11-17 18:16] LABS: Basophils % 0.2 %; Eosinophils % 0.1 %; Hematocrit 29.4 % (37.5-50.1); Immature Granulocytes % 4.1 % (0-4); Immature Platelets 1.7 % (1.1-6.1); Lymphocytes % 5.1 %; Mean Corpuscular HGB Conc 30.6 g/dL (31.6-35.5); Mean Corpuscular Hemoglobin 27.3 pg (28.0-33.3); Mean Corpuscular Volume 89.1 fL (83.0-100.0); Monocytes # 0.6 K/mcL (0.0-1.3); Monocytes % 3.4 %; Neutrophils # 16.3 K/mcL (1.6-8.9); Platelet Count 550 K/mcL (140-400); Red Cell Distribution Width 16.1 % (11.5-14.5); Segmented Neutrophils % 87.1 %
[2016-11-17 18:37] LABS: ABG Base Excess -8.1 mEq/L (-2.0 to 3.0); ABG HCO3 19.9 mEQ/L (21-27); ABG Oxygen Saturation 99 % (95-98); ABG PCO2 52 mmHg (35-45); ABG PO2 148 mmHg (85-104); ABG TCO2 21.5 mEq/L (20-26)
--- NOTE | 2016-11-17 18:37 | Cardiology Consult Note ---
Date of Encounter: 11/17/16 Time of Encounter: 18:35 Assessment and Plan (1) Diabetic ulcer of both feet associated with type 2 diabetes mellitus Current Visit: Yes Status: Acute Per other services (2) Diastolic CHF Current Visit: Yes Status: Acute Qualifiers: Congestive heart failure chronicity: chronic Qualified Code(s): I50.32 - Chronic diastolic (congestive) heart failure (3) CKD (chronic kidney disease) stage 3, GFR 30-59 ml/min Current Visit: Yes Status: Chronic Will need ongoing diuresis as renal function allows (4) Obesity (BMI 30.0-34.9) Current Visit: No Status: Chronic . (5) A-fib Current Visit: Yes Status: Acute Occured after PEA arrest/ACLS -- Watch rate for now. Maintain on pressors. Doubt this was the culprit for the event. Suspect this may improve on its own. Qualifiers: Qualified Code(s): I48.91 - Unspecified atrial fibrillation (6) Cardiac arrest Current Visit: Yes Status: Acute Etiology unclear. Trop and EKG are reassuring so far (not clearly a ischemic event). Would check Serial Trops --this will increase due to the code. ? PE --- D/w Cutting Room Supervisor - heparin gtt. Echo when possible to assess RV size Supportive care - pressors as needed. Correct lytes as needed. Thanks for consult. Discussion w patient/family: The assessment and plan as outlined above was discussed with the patient and/or family members who expressed understanding and agreement. All questions were answered. Thank you for involving us in the care of your patient. Please call with any questions. History of Present Illness Consult date: 11/17/16 Consult reason: cardiac arrest Chief complaint: same History of present illness: Mr. Regalado is a 61 year old male with multiple cardiac risk factors including CKD, PVD, admitted several days ago with a foot infection. Tis afternoon, began experiencing hest pain, and quickly became unresponse - PEA arrest. Seen in the ICU post intubation after successful ACLS restored a pulse and BP. Baseline and Post EKG show no acute ST changes. Post EKG shows Afib with with mild RVR. Patient unable to give any history. Past Med Surg Social Fam HX - Past Medical History Medical history: arthritis, COPD, diabetes, GERD, hepatitis, hyperlipidemia, hypertension, osteoporosis, renal disease, syncope Psychiatric history: anxiety, depression - Past Surgical History Surgical History: cataract, LE stent(s), orthopedic, other - Social History Smoking Status: Current every day smoker Smokeless Tobacco Status: No Alcohol use: none Drug use: none - Family History Mother Living Status: Hx Family Cardiac Disorders: Yes (htn) Hx Family Respiratory Disorders: No Hx Family Cancer: Yes Hx Family Endocrine Disorder: Yes (dm) Hx Family Medical Disorders: Yes Father Living Status: Medications and Allergies Aspirin [Adult Low Dose Aspirin EC] 81 mg PO DAILY 12/11/15 [History] Budesonide/Formoterol 160/4.5 [Symbicort 160/4.5] 2 puff IH BIDR 12/11/15 [ History] Citalopram Hydrobromide [Celexa] 20 mg PO DAILY 12/11/15 [History] Enalapril Maleate [Vasotec] 10 mg PO QPM 12/11/15 [History] Enalapril Maleate [Vasotec] 20 mg PO QAM 12/11/15 [History] Ergocalciferol (VITAMIN D2) [Vitamin D2 (50,000 UNIT)] 50,000 unit PO MÁRQUEZ [History] Furosemide [Lasix] 40 mg PO DAILY 12/11/15 [History] Gabapentin [Neurontin] 600 mg PO TID 12/11/15 [History] Hydrochlorothiazide 25 mg PO DAILY 12/11/15 [History] Hydroxyzine HCl 50 mg PO BID 12/11/15 [History] Insulin ASPART [Novolog] 36 - 38 unit SQ TIDWM 12/11/15 [History] Insulin Glargine,Hum.rec.anlog [Lantus Solostar] 80 unit SQ BID 12/11/15 [ History] Meclizine [Antivert] 25 mg PO BID PRN 12/11/15 [History] Omeprazole [PriLOSEC] 20 mg PO BIDAC 12/11/15 [History] Ropinirole [Requip] 1 mg PO HS 12/11/15 [History] Rosuvastatin [Crestor] 40 mg PO DAILY 12/11/15 [History] SitaGLIPtin [Januvia] 100 mg PO DAILY 12/11/15 [History] Tiotropium [Spiriva] 18 mcg IH DAILY 12/11/15 [History] Trazodone HCl [TraZODone] 100 mg PO HS 12/11/15 [History] Albuterol Neb [Proventil Neb] 2.5 mg IH Q2H PRN #0 inhsol 12/15/15 [Rx] Carvedilol [Coreg] 12.5 mg PO BIDWM #0 12/15/15 [Rx] Oxycodone HCl/Acetaminophen [Percocet 10-325 mg Tablet] 1 tab PO Q4H PRN #20 tablet 12/15/15 [Rx] Cyclobenzaprine [Flexeril] 10 mg PO TID #14 tablet 03/25/16 [Rx] Amlodipine [Norvasc] 5 mg PO DAILY #30 tablet 08/08/16 [Rx] PredniSONE 40 mg PO DAILY #8 tablet 08/08/16 [Rx] Allergies acetaminophen [From Darvocet-N] Allergy (Verified 12/11/15 11:46) Hives ibuprofen Allergy (Verified 12/11/15 11:46) Hives propoxyphene [From Darvocet-N] Allergy (Verified 12/11/15 11:46) Hives tramadol [From Ultram] Allergy (Verified 12/11/15 11:46) Hives ROS unobtainable: due to endotracheal tube All Systems Review: A 10-system review of systems was performed and is negative for pertinent findings except as documented above in the HPI. Physical Examination Vital Signs, Last 4 Hours Temp Pulse Resp BP Pulse Ox 11/17/16 18:00 96.7 F L 94 20 115/81 96 11/17/16 17:30 18 125/80 11/17/16 16:38 20 96 11/17/16 15:55 98.6 F 64 16 146/76 93 L General: Other (intubated - no response to voice) HEENT: Atraumatic, Normocephaly Neck: No JVD, Normal carotid pulses, Other (large protuberent neck) Cardiac: Normal S1 and S2, Other (Irreg Irreg) Lungs: Normal Breath Sounds, Other (ventilator sounds anteriorly) Neuro: Other (Pupils respond to light, not following commands) Abdomen: Soft, Non-Tender Skin: No rashes noted on visualized skin Musculoskeletal: No Chest Wall Tenderness Extremities: Other (dressing in place, LE with dicoloration) Results 11/17/16 18:03 11/17/16 17:21 Lab Results 11/17/16 11/17/16 11/17/16 04:34 04:34 17:21 WBC 14.0 H Hgb 8.4 L Hct 25.8 L Plt Count 427 H Sodium 141 143 Potassium 5.2 H 4.8 H Chloride 110 H 108 Carbon Dioxide 19 15 L BUN 90 H 97 H Creatinine 2.62 H 2.90 H Glucose 95 199 H Calcium 8.6 8.7 Troponin I 11/17/16 11/17/16 17:21 18:03 WBC 18.7 H Hgb 9.0 L Hct 29.4 L Plt Count 550 H Sodium Potassium Chloride Carbon Dioxide BUN Creatinine Glucose Calcium Troponin I 0.01 - Imaging and Cardiology Chest Xray: report reviewed - EKG Interpretation EKG results cardiology: personally reviewed, no diagnostic ischemia (Baseline - sinus Post arrest - Afib - no ST changes) Consult Discharge Plan - Plan Referrals: Luba Dorantes, PAC [Physician [employer]] - 11/20/16 11:40 am
[2016-11-17 18:41] LABS: ABG PH 7.19 pH Units (7.32-7.45)
[2016-11-17] MEDS: FentaNYL (PF) 1,000 MCG in 0.9 % Sodium Chloride 80 ML IVC SCH (19:00)
[2016-11-17] MEDS ORDERED: *HR* Heparin 5,000 UNIT/ML VIAL IVP PRN ×2 (19:36)
[2016-11-17] MEDS ORDERED: *HR* Heparin 5,000 UNIT/ML VIAL IVP ONE (19:36)
[2016-11-17] MEDS ORDERED: Heparin 25,000 UNIT/500 ML D5W 25,000 UNIT/500 ML MLS IVC SCH (19:45)
[2016-11-17] MEDS ORDERED: Sodium Bicarbonate 150 MEQ in D5% in Water 1,000 ML IVC SCH (19:45)
[2016-11-17] MEDS: Chlorhexidine Rinse 15 ML MOUTHWASH MM SCH (20:45)
[2016-11-17] MEDS: Lacri-Lube 3.5 GM TUBE BOTH EYES SCH ×2 (20:53→23:36)
[2016-11-17] MEDS: Pantoprazole 40 MG VIAL IVP SCH (20:53)
--- NOTE | 2016-11-17 20:55 | Event Note ---
Date of Encounter: 11/17/16 Time of Encounter: 18:00 The patient underwent cardiac arrest earlier today on the floor and was found to be in PDA. He was successfully resuscitated and brought to the ICU. He is currently unresponsive, intubated, sedated,. Physical exam no acute distress, pupils equal and sluggishly reactive to light, conjunctiva nonicteric heart irregularly irregular S1-S2 no murmurs lungs with bilateral expiratory wheezes abdomen obese soft nontender nondistended and extremities with 1+ pitting edema , right foot wound VAC is in place. Assessment: 61-year-old man with multiple medical comorbidities including diabetes, chronic kidney disease, hypertension no known history of CAD, peripheral vascular disease and diabetic foot ulcer, status post PEA arrest possibly caused by hypotension versus acute myocardial infarction versus acute pulmonary embolism unlikely secondary to cardiac tamponade possibly related to acute heart failure given chest x-ray findings consistent with pulmonary edema. Plan: Continue mechanical ventilation assist control, CBC, check ABG in the morning. For pulmonary edema will start IV Lasix. For possible PE will start IV heparin. We will obtain a stat echocardiogram and based on the right soft there is no evidence of right ventricular strain or right ventricular failure we will consider discontinuing heparin drip. We will trend troponins to rule out ACS as a possible cause for PEA. Follow-up echocardiogram to determine if there is any acute valvular dysfunction. Cardiology and pulmonary services were consulted. There is high probability of emergent and significant clinical decompensation with potential impairment of organ dysfunction including cardiovascular system and respiratory system. I have performed 40 minutes of critical care time which involved decision making of high complexity to assess, manipulate, and support vital organ system, in order to prevent further life threatening deterioration of the patient's condition. The time involved in the performance of any procedures was not counted toward critical care time. Critical care time was spent evaluating the patient, reviewing EKG, telemetry tracing, imaging studies and laboratory data, discussing the case with consultants, ordering medications and assessing clinically for response and making adjustments.
--- NOTE | 2016-11-17 21:03 | Event Note ---
Date of Encounter: 11/17/16 Time of Encounter: 20:30 Central Venous Catheter (CVC, Central Line) Placement Date: 11/17/2016 Time: 8:30 PM Indication: Hemodynamic monitoring/Intravenous access Attending: Dany Goyal MD A time-out was completed verifying correct patient, procedure, site, positioning , and special equipment if applicable at 8:02 PM. The patient was placed in a dependent position appropriate for central line placement based on the vein to be cannulated. The patients right side of the neck was prepped and draped in sterile fashion. 1% Lidocaine was used to anesthetize the surrounding skin area. The right internal jugular vein was easily visualized on ultrasound and was cannulated under direct ultrasound guidance. A guidewire was inserted and the needle was exchanged for a dilator. The site was dilated and the then a triple lumen catheter was introduced into the the right internal jugular vein on to the guidewire. The catheter was threaded smoothly over the guide wire and appropriate blood return was obtained. Each lumen of the catheter was evacuated of air and flushed with sterile saline. The catheter was then sutured in place to the skin and a sterile dressing applied. Estimated Blood Loss: 5 mL The patient tolerated the procedure well and there were no complications.
[2016-11-17 21:40] LABS: Hematocrit 27.3 % (37.5-50.1); Hemoglobin 8.4 g/dL (12.9-16.9); Mean Corpuscular HGB Conc 30.8 g/dL (31.6-35.5); Mean Corpuscular Hemoglobin 27.3 pg (28.0-33.3); Mean Corpuscular Volume 88.6 fL (83.0-100.0); Platelet Count 398 K/mcL (140-400); Red Blood Count 3.08 M/mcL (4.19-5.50); Red Cell Distribution Width 16.2 % (11.5-14.5)
[2016-11-17 21:53] LABS: Prothrombin Time 11.3 Seconds (9.4-12.1)
[2016-11-17 21:55] LABS: Activated Partial Thrombo Time 25.5 Seconds (26.0-36.0)
[2016-11-17] MEDS ORDERED: Vancomycin 1,750 MG in D5% in Water 500 ML IVPB ONE (22:00)
[2016-11-17 23:44] LABS: ABG Base Excess -4.8 mEq/L (-2.0 to 3.0); ABG HCO3 22.9 mEQ/L (21-27); ABG Oxygen Saturation 93 % (95-98); ABG PCO2 56 mmHg (35-45); ABG PH 7.22 pH Units (7.32-7.45); ABG PO2 80 mmHg (85-104); ABG TCO2 24.6 mEq/L (20-26)
[2016-11-17 23:49] LABS: Blood Gas FiO2 100 %
[2016-11-18] MEDS: Insulin LISPRO 300 UNITS/3 ML VIAL SQ SCH ×7 (00:21→23:47)
[2016-11-18] MEDS: methylPREDNISolone 125 MG/2 ML VIAL IVP SCH ×5 (00:27→23:46)
[2016-11-18] MEDS: Piperacillin/Tazobactam 3.375 GM in D5% in Water (Mini-Bag+) 100 ML IVPB SCH ×4 (00:29→23:46)
[2016-11-18] MEDS: Ipratropium/Albuterol Neb 3 ML IH SCH ×7 (00:53→23:54)
[2016-11-18] MEDS: FentaNYL (PF) 1,000 MCG in 0.9 % Sodium Chloride 80 ML IVC SCH ×3 (01:25→19:40)
[2016-11-18] MEDS: Lacri-Lube 3.5 GM TUBE BOTH EYES SCH ×6 (04:33→23:48)
[2016-11-18 04:34] LABS: Basophils % 0.1 %; Hematocrit 25.2 % (37.5-50.1); Hemoglobin 7.8 g/dL (12.9-16.9); Immature Granulocytes % 2.6 % (0-4); Lymphocytes # 0.4 K/mcL (0.6-4.6); Lymphocytes % 2.9 %; Mean Corpuscular Hemoglobin 27.5 pg (28.0-33.3); Mean Corpuscular Volume 88.7 fL (83.0-100.0); Mean Platelet Volume 8.9 fL (9.4-12.4); Monocytes # 0.8 K/mcL (0.0-1.3); Monocytes % 6.3 %; Neutrophils # 11.5 K/mcL (1.6-8.9); Nucleated Red Blood Cells 0.2 /100 WBC (0); Platelet Count 324 K/mcL (140-400); Red Blood Count 2.84 M/mcL (4.19-5.50); Red Cell Distribution Width 16.2 % (11.5-14.5); Segmented Neutrophils % 88.1 %
[2016-11-18 05:18] LABS: Albumin 2.5 g/dL (3.5-5.0); Albumin/Globulin Ratio 0.8 (1.1-2.2); Bilirubin,Total 0.3 mg/dL (0.2-1.2); Calcium 8.2 mg/dL (8.6-10.8); Globulin 3.2 g/dL (2.4-3.5); Magnesium 1.8 mg/dL (1.6-2.6); Total Protein 5.7 g/dL (6.0-8.3)
[2016-11-18 05:27] LABS: Potassium 5.8 mEq/L (3.5-4.5)
[2016-11-18] MEDS ORDERED: Furosemide 20 MG/2 ML VIAL IVP ONE (05:40)
[2016-11-18] MEDS ORDERED: Calcium Gluconate 1,000 MG in D5% in Water 100 ML IVPB STA (05:40)
[2016-11-18] MEDS ORDERED: Lactulose Oral Soln 20 GM/30 ML UDC PO STA (05:40)
[2016-11-18 05:49] LABS: ABG Base Excess -3.2 mEq/L (-2.0 to 3.0); ABG HCO3 23.1 mEQ/L (21-27); ABG Oxygen Saturation 96 % (95-98); ABG PCO2 47 mmHg (35-45); ABG PO2 92 mmHg (85-104); ABG TCO2 24.5 mEq/L (20-26)
[2016-11-18 05:51] LABS: Blood Gas FiO2 70 %
--- NOTE | 2016-11-18 07:06 | Pulmonology Consult Note ---
<Martell Leblanc - Last Filed: 11/18/16 14:16> Date of Encounter: 11/18/16 Time of Encounter: 07:06 Assessment and Plan (1) Acute respiratory failure Current Visit: Yes Status: Acute Review of event note reports patient had complained of chest pain around 17: 00pm then suddenly lost consciousness and became pulseless. Patient was intubated during course of ACLS. Vent settings this morning: Tv 500, rate 18, FiO2 60%, PEEP 5 ABG pH 7.30, pCO2 47, pO2 92, 96% Continue with ventilator support Continue following labs, ABG. Qualifiers: Respiratory failure complication: unspecified whether with hypoxia or hypercapnia Qualified Code(s): J96.00 - Acute respiratory failure, unspecified whether with hypoxia or hypercapnia (2) Seizure Current Visit: Yes Status: Acute At 12:47pm, patient was noted by nursing staff to have seizures. At that time we gave 4 of Versed bolus and started propofol. Patient has not history of seizure activity and no significant family history for seizures other than childhood seizure in his mother. Neurology consulted, Dr. Benson. EEG and Head CT ordered. Renal function panel and CK ordered. Continue with propofol at this time. (3) Cardiac arrest Current Visit: Yes Status: Acute Determined to be in PEA arrest around 17:00pm. 10 minute ACLS/Code before ROSC. Troponin 0.01, 0.02, 0.24 Echo revealed normal EF, no right heart strain. Cardiology on board, recommends supportive care at this point. Cardiac arrest not likely a primary cardiac event. (4) Osteomyelitis of foot, right, acute Current Visit: Yes Status: Acute Continue with Vancomycin and Zosyn for antibiotic coverage. Continue with IV antbiotics for total of 4-6 weeks. Continue following labs. PICC in place. (5) Hyperkalemia Current Visit: Yes Status: Resolved Potassium at 5.8 this morning, now at 4.7. Nephrology on board, continue with nephro recommendations. Continue following electrolytes. (6) Diastolic CHF Current Visit: Yes Status: Acute History of diastolic chf. Echo revealed normal EF. CXR revealed pulmonary edema, resolving with lasix. Likely secondary to fluids over chf complication in light of a normal EF. Continue with treatment with lasix. Qualifiers: Congestive heart failure chronicity: chronic Qualified Code(s): I50.32 - Chronic diastolic (congestive) heart failure (7) Diabetic ulcer of both feet associated with type 2 diabetes mellitus Current Visit: Yes Status: Acute Continue wound care. Podiatry on board. (8) Acute kidney injury superimposed on chronic kidney disease Current Visit: Yes Status: Acute Cr at 3.27. Urine output 1100mL/24 hr. Worsenening of kidney function likely secondary to Code event/hypoperfusion injury. Continue to monitor labs. Lasix use intermittently for pulmonary edema. (9) DVT prophylaxis Current Visit: Yes Status: Acute Heparin for dvt ppx. History of Present Illness Consult date: 11/17/16 Requesting physician: Dany Goyal Reason for consult: other (Acute Resp Failure, Intubated) Chief complaint: Acute Respiratory Failure, Intubated, PEA History of present illness: Mr. Regalado is a 61 year old male with history of diabetes with peripheral neuropathy and chronic diabetic foot ulcers, diastolic CHF, CKD stage 3, hypertension, hepatitis C, hyperlipidemia, and multiple amputations who initially presented 2 weeks ago with left lower rib pain without history of trauma. Patient was also noted to be seeing Dr. Pace for recurrent foot ulcers and at that time had a 5th metatarsal ulcer and swelling on the right. Patent has been hospitalized for Acute on Chronic renal failure, diabetic foot ulcers, and osteomyelitis of the right foot. Wound cultures were positive for Enetrococcus faecalis and proteus vulgaris, blood cultures were negative. Patient has been on Unasyn and Vancomycin. Last evening around 17:00pm the patient reported chest pain, suddenly lost consciousness, and became pulseless. EKG revealed PEA, ACLS was started and completed for 10 minutes prior to ROSC. During the code the patient was intubated. CXR findings were consistent with pulmonary edema. Hospitalist switched to Zosyn. At this time the patient is sedated on ventilator, but easily arousable and agitated. Past Med Surg Social Fam HX - Past Medical History Medical history: arthritis, COPD, diabetes, GERD, hepatitis, hyperlipidemia, hypertension, osteoporosis, renal disease, syncope Psychiatric history: anxiety, depression - Past Surgical History Surgical History: cataract, LE stent(s), orthopedic, other - Social History Smoking Status: Current every day smoker Smokeless Tobacco Status: No Alcohol use: none Drug use: none - Family History Mother Living Status: Hx Family Cardiac Disorders: Yes (htn) Hx Family Respiratory Disorders: No Hx Family Cancer: Yes Hx Family Endocrine Disorder: Yes (dm) Hx Family Medical Disorders: Yes Father Living Status: Medications and Allergies Aspirin [Adult Low Dose Aspirin EC] 81 mg PO DAILY 12/11/15 [History] Budesonide/Formoterol 160/4.5 [Symbicort 160/4.5] 2 puff IH BIDR 12/11/15 [ History] Citalopram Hydrobromide [Celexa] 20 mg PO DAILY 12/11/15 [History] Enalapril Maleate [Vasotec] 10 mg PO QPM 12/11/15 [History] Enalapril Maleate [Vasotec] 20 mg PO QAM 12/11/15 [History] Ergocalciferol (VITAMIN D2) [Vitamin D2 (50,000 UNIT)] 50,000 unit PO MÁRQUEZ [History] Furosemide [Lasix] 40 mg PO DAILY 12/11/15 [History] Gabapentin [Neurontin] 600 mg PO TID 12/11/15 [History] Hydrochlorothiazide 25 mg PO DAILY 12/11/15 [History] Hydroxyzine HCl 50 mg PO BID 12/11/15 [History] Insulin ASPART [Novolog] 36 - 38 unit SQ TIDWM 12/11/15 [History] Insulin Glargine,Hum.rec.anlog [Lantus Solostar] 80 unit SQ BID 12/11/15 [ History] Meclizine [Antivert] 25 mg PO BID PRN 12/11/15 [History] Omeprazole [PriLOSEC] 20 mg PO BIDAC 12/11/15 [History] Ropinirole [Requip] 1 mg PO HS 12/11/15 [History] Rosuvastatin [Crestor] 40 mg PO DAILY 12/11/15 [History] SitaGLIPtin [Januvia] 100 mg PO DAILY 12/11/15 [History] Tiotropium [Spiriva] 18 mcg IH DAILY 12/11/15 [History] Trazodone HCl [TraZODone] 100 mg PO HS 12/11/15 [History] Albuterol Neb [Proventil Neb] 2.5 mg IH Q2H PRN #0 inhsol 12/15/15 [Rx] Carvedilol [Coreg] 12.5 mg PO BIDWM #0 12/15/15 [Rx] Oxycodone HCl/Acetaminophen [Percocet 10-325 mg Tablet] 1 tab PO Q4H PRN #20 tablet 12/15/15 [Rx] Cyclobenzaprine [Flexeril] 10 mg PO TID #14 tablet 03/25/16 [Rx] Amlodipine [Norvasc] 5 mg PO DAILY #30 tablet 08/08/16 [Rx] PredniSONE 40 mg PO DAILY #8 tablet 08/08/16 [Rx] Allergies acetaminophen [From Darvocet-N] Allergy (Verified 12/11/15 11:46) Hives ibuprofen Allergy (Verified 12/11/15 11:46) Hives propoxyphene [From Darvocet-N] Allergy (Verified 12/11/15 11:46) Hives tramadol [From Ultram] Allergy (Verified 12/11/15 11:46) Hives ROS unobtainable: due to endotracheal tube All Systems: A 10-system review of systems was performed and is negative for pertinent findings except as documented above in the HPI. Physical Examination Vital Signs: Vital Signs, Last 4 Hours Temp Pulse Resp BP Pulse Ox 11/18/16 06:25 20 127/67 93 L 11/18/16 06:00 59 27 127/67 92 L 11/18/16 05:00 64 14 126/68 97 11/18/16 04:34 96.7 F L 70 14 134/72 91 L 11/18/16 03:33 18 119/66 99 General appearance: alert, agitated, other (sedated on vent, easily arousable, opens eyes spontaneously, moves all extremities, 2 point upper extremity restraints) Eyes: nonicteric Neck: supple, no lymphadenopathy, no JVD Effort: normal Inspection: normal Auscultation: bilateral: rales Cardiovascular: regular rate and rhythm Gastrointestinal: normoactive bowel sounds, soft, non-distended Integumentary: normal, other (ulcer of right and left feet, right foot to wound vac) Extremities: no cyanosis, no edema, pink and warm Musculoskeletal: no deformities non-focal exam, pupils equal and round Ventilator Settings Ventilator Settings: Ventilator Settings, Last 8 Hours Ventilator Mode A/C Ventilator Mode A/C Ventilator Mode A/C Ventilator Mode A/C Ventilator Mode A/C Ventilator Mode A/C Ventilator Mode A/C Ventilator Mode A/C Ventilator Mode A/C Ventilator Mode A/C Ventilator Mode A/C Ventilator Mode A/C Ventilator Tidal Volume 500 Setting Ventilator Tidal Volume 500 Setting Ventilator Tidal Volume 500 Setting Ventilator Tidal Volume 500 Setting Ventilator Tidal Volume 500 Setting Ventilator Tidal Volume 500 Setting Ventilator Tidal Volume 500 Setting Ventilator Tidal Volume 500 Setting Ventilator Tidal Volume 500 Setting Ventilator Tidal Volume 500 Setting Ventilator Tidal Volume 500 Setting Ventilator Tidal Volume 500 Setting Ventilator Respiratory Rate 14 Setting Ventilator Respiratory Rate 14 Setting Ventilator Respiratory Rate 14 Setting Ventilator Respiratory Rate 14 Setting Ventilator Respiratory Rate 14 Setting Ventilator Respiratory Rate 14 Setting Ventilator Respiratory Rate 14 Setting Ventilator Respiratory Rate 14 Setting Ventilator Respiratory Rate 14 Setting Ventilator Respiratory Rate 14 Setting Ventilator Respiratory Rate 14 Setting Ventilator Respiratory Rate 14 Setting Actual Respiratory Rate 20 Actual Respiratory Rate 18 Actual Respiratory Rate 18 Positive End Expiratory 5 Pressure Positive End Expiratory 5 Pressure Positive End Expiratory 5 Pressure Positive End Expiratory 5 Pressure Positive End Expiratory 5 Pressure Positive End Expiratory 5 Pressure Positive End Expiratory 5 Pressure Positive End Expiratory 5 Pressure Positive End Expiratory 5 Pressure Positive End Expiratory 5 Pressure Positive End Expiratory 5 Pressure Positive End Expiratory 5 Pressure Peak Inspiratory Airway 25 Pressure Peak Inspiratory Airway 28 Pressure Peak Inspiratory Airway 18 Pressure Results - Laboratory Findings CBC and BMP: 11/18/16 04:18 11/18/16 13:25 ABG ABG pH 7.30 pH Units (7.32-7.45) L 11/18/16 05:45 ABG pCO2 47 mmHg (35-45) H 11/18/16 05:45 ABG pO2 92 mmHg (85-104) 11/18/16 05:45 ABG O2 Saturation 96 % (95-98) 11/18/16 05:45 PT/INR, D-dimer PT 11.3 Seconds (9.4-12.1) 11/17/16 21:25 Abnormal lab findings: Abnormal lab results WBC 13.0 K/mcL (4.3-11.1) H 11/18/16 04:18 RBC 2.84 M/mcL (4.19-5.50) L 11/18/16 04:18 Hgb 7.8 g/dL (12.9-16.9) L 11/18/16 04:18 Hct 25.2 % (37.5-50.1) L 11/18/16 04:18 MCH 27.5 pg (28.0-33.3) L 11/18/16 04:18 MCHC 31.0 g/dL (31.6-35.5) L 11/18/16 04:18 RDW 16.2 % (11.5-14.5) H 11/18/16 04:18 MPV 8.9 fL (9.4-12.4) L 11/18/16 04:18 Metamyelocytes % 4.0 % (0) H 11/13/16 03:25 Myelocytes % 4.0 % (0) H 11/14/16 03:45 Neutrophils # 11.5 K/mcL (1.6-8.9) H 11/18/16 04:18 Lymphocytes # 0.4 K/mcL (0.6-4.6) L 11/18/16 04:18 Nucleated RBCs/100 WBC 0.2 /100 WBC (0) H 11/18/16 04:18 Reactive Lymphocytes Present (Not Present) A 11/13/16 03:25 Toxic Vacuolation Present (Not Present) A 11/13/16 03:25 Platelet Estimate Marked Decrease (Normal) L 11/14/16 03:45 Polychromasia 1+ (Not Present) A 11/12/16 05:00 ESR 66 mm/hr (0-10) H 11/12/16 08:30 APTT 25.5 Seconds (26.0-36.0) L 11/17/16 21:25 ABG pH 7.30 pH Units (7.32-7.45) L 11/18/16 05:45 ABG pCO2 47 mmHg (35-45) H 11/18/16 05:45 ABG Base Excess -3.2 mEq/L (-2.0 to 3.0) L 11/18/16 05:45 Potassium 5.8 mEq/L (3.5-4.5) H D 11/18/16 04:18 BUN 108 mg/dL (8-26) H 11/18/16 04:18 Creatinine 3.27 mg/dL (0.72-1.25) H 11/18/16 04:18 Est GFR ( Amer) 23 (> 60) L 11/18/16 04:18 Est GFR (Non-Af Amer) 19 (> 60) L 11/18/16 04:18 BUN/Creatinine Ratio 33 (6-26) H 11/18/16 04:18 Glucose 132 mg/dL (70-99) H 11/18/16 04:18 POC Glucose 135 (58-89) H 11/18/16 00:21 Calculated Osmolality 324 (280-300) H 11/18/16 04:18 Uric Acid 8.4 mg/dL (3.5-7.2) H 11/12/16 05:03 Calcium 8.2 mg/dL (8.6-10.8) L 11/18/16 04:18 Creatine Kinase 25 Units/L (30-200) L 11/12/16 05:03 Troponin I 0.24 ng/mL (0-0.03) H* 11/18/16 04:18 C-Reactive Protein 13 mg/L (Less than 5) H 11/12/16 08:30 B-Natriuretic Peptide 201 pg/mL (0-100) H 11/16/16 Unknown Serum Total Protein 5.7 g/dL (6.0-8.3) L 11/18/16 04:18 Albumin 2.5 g/dL (3.5-5.0) L 11/18/16 04:18 Albumin/Globulin Ratio 0.8 (1.1-2.2) L 11/18/16 04:18 Urine Protein 100 mg/dL (Neg-Trace) H 11/12/16 15:20 Urine Glucose (UA) 250 mg/dL (Normal) H 11/12/16 15:20 Urine Microscopic RBC 3-5 per hpf (0-3) H 11/12/16 15:20 Ur Squamous Epith Cells Moderate per lpf (None-Few) H 11/12/16 15:20 - Clinical Findings Intake & Output: Intake & Output 11/17/16 11/17/16 11/18/16 15:59 23:59 07:59 Intake Total 980 / 980 612.7 / 612.7 209.6 / 209.6 Output Total 1100 / 1100 450 / 450 Balance -120 / -120 612.7 / 612.7 -240.4 / -240.4 Consult Discharge Plan - Plan Referrals: Luba Dorantes, PAC [Physician Flask Cleaner] - 11/20/16 11:40 am <Adi Pinto - Last Filed: 11/18/16 15:54> All Systems: A 10-system review of systems was performed and is negative for pertinent findings except as documented above in the HPI. Physical Examination Vital Signs: Vital Signs, Last 4 Hours Temp Pulse Resp BP Pulse Ox 11/18/16 09:00 60 18 132/70 96 11/18/16 08:00 61 18 133/69 95 11/18/16 07:54 96.5 F L 18 131/70 98 11/18/16 07:00 61 26 131/70 95 11/18/16 06:25 20 127/67 93 L Ventilator Settings Ventilator Settings: Ventilator Settings, Last 8 Hours Ventilator Mode A/C Ventilator Mode A/C Ventilator Mode A/C Ventilator Mode A/C Ventilator Mode A/C Ventilator Mode A/C Ventilator Mode A/C Ventilator Mode A/C Ventilator Mode A/C Ventilator Tidal Volume 500 Setting Ventilator Tidal Volume 500 Setting Ventilator Tidal Volume 500 Setting Ventilator Tidal Volume 500 Setting Ventilator Tidal Volume 500 Setting Ventilator Tidal Volume 500 Setting Ventilator Tidal Volume 500 Setting Ventilator Tidal Volume 500 Setting Ventilator Tidal Volume 500 Setting Ventilator Respiratory Rate 18 Setting Ventilator Respiratory Rate 18 Setting Ventilator Respiratory Rate 14 Setting Ventilator Respiratory Rate 14 Setting Ventilator Respiratory Rate 14 Setting Ventilator Respiratory Rate 14 Setting Ventilator Respiratory Rate 14 Setting Ventilator Respiratory Rate 14 Setting Ventilator Respiratory Rate 14 Setting Actual Respiratory Rate 18 Actual Respiratory Rate 18 Actual Respiratory Rate 20 Actual Respiratory Rate 18 Positive End Expiratory 5 Pressure Positive End Expiratory 5 Pressure Positive End Expiratory 5 Pressure Positive End Expiratory 5 Pressure Positive End Expiratory 5 Pressure Positive End Expiratory 5 Pressure Positive End Expiratory 5 Pressure Positive End Expiratory 5 Pressure Positive End Expiratory 5 Pressure Peak Inspiratory Airway 28 Pressure Peak Inspiratory Airway 28 Pressure Peak Inspiratory Airway 25 Pressure Peak Inspiratory Airway 28 Pressure Results - Laboratory Findings CBC and BMP: 11/18/16 04:18 11/18/16 13:25 ABG ABG pH 7.30 pH Units (7.32-7.45) L 11/18/16 05:45 ABG pCO2 47 mmHg (35-45) H 11/18/16 05:45 ABG pO2 92 mmHg (85-104) 11/18/16 05:45 ABG O2 Saturation 96 % (95-98) 11/18/16 05:45 PT/INR, D-dimer PT 11.3 Seconds (9.4-12.1) 11/17/16 21:25 Abnormal lab findings: Abnormal lab results WBC 13.0 K/mcL (4.3-11.1) H 11/18/16 04:18 RBC 2.84 M/mcL (4.19-5.50) L 11/18/16 04:18 Hgb 7.8 g/dL (12.9-16.9) L 11/18/16 04:18 Hct 25.2 % (37.5-50.1) L 11/18/16 04:18 MCH 27.5 pg (28.0-33.3) L 11/18/16 04:18 MCHC 31.0 g/dL (31.6-35.5) L 11/18/16 04:18 RDW 16.2 % (11.5-14.5) H 11/18/16 04:18 MPV 8.9 fL (9.4-12.4) L 11/18/16 04:18 Metamyelocytes % 4.0 % (0) H 11/13/16 03:25 Myelocytes % 4.0 % (0) H 11/14/16 03:45 Neutrophils # 11.5 K/mcL (1.6-8.9) H 11/18/16 04:18 Lymphocytes # 0.4 K/mcL (0.6-4.6) L 11/18/16 04:18 Nucleated RBCs/100 WBC 0.2 /100 WBC (0) H 11/18/16 04:18 Reactive Lymphocytes Present (Not Present) A 11/13/16 03:25 Toxic Vacuolation Present (Not Present) A 11/13/16 03:25 Platelet Estimate Marked Decrease (Normal) L 11/14/16 03:45 Polychromasia 1+ (Not Present) A 11/12/16 05:00 ESR 66 mm/hr (0-10) H 11/12/16 08:30 APTT 25.5 Seconds (26.0-36.0) L 11/17/16 21:25 ABG pH 7.30 pH Units (7.32-7.45) L 11/18/16 05:45 ABG pCO2 47 mmHg (35-45) H 11/18/16 05:45 ABG Base Excess -3.2 mEq/L (-2.0 to 3.0) L 11/18/16 05:45 Potassium 5.8 mEq/L (3.5-4.5) H D 11/18/16 04:18 BUN 108 mg/dL (8-26) H 11/18/16 04:18 Creatinine 3.27 mg/dL (0.72-1.25) H 11/18/16 04:18 Est GFR ( Amer) 23 (> 60) L 11/18/16 04:18 Est GFR (Non-Af Amer) 19 (> 60) L 11/18/16 04:18 BUN/Creatinine Ratio 33 (6-26) H 11/18/16 04:18 Glucose 132 mg/dL (70-99) H 11/18/16 04:18 POC Glucose 201 (58-89) H 11/18/16 07:26 Calculated Osmolality 324 (280-300) H 11/18/16 04:18 Uric Acid 8.4 mg/dL (3.5-7.2) H 11/12/16 05:03 Calcium 8.2 mg/dL (8.6-10.8) L 11/18/16 04:18 Creatine Kinase 25 Units/L (30-200) L 11/12/16 05:03 Troponin I 0.24 ng/mL (0-0.03) H* 11/18/16 04:18 C-Reactive Protein 13 mg/L (Less than 5) H 11/12/16 08:30 B-Natriuretic Peptide 201 pg/mL (0-100) H 11/16/16 Unknown Serum Total Protein 5.7 g/dL (6.0-8.3) L 11/18/16 04:18 Albumin 2.5 g/dL (3.5-5.0) L 11/18/16 04:18 Albumin/Globulin Ratio 0.8 (1.1-2.2) L 11/18/16 04:18 Urine Protein 100 mg/dL (Neg-Trace) H 11/12/16 15:20 Urine Glucose (UA) 250 mg/dL (Normal) H 11/12/16 15:20 Urine Microscopic RBC 3-5 per hpf (0-3) H 11/12/16 15:20 Ur Squamous Epith Cells Moderate per lpf (None-Few) H 11/12/16 15:20 - Clinical Findings Intake & Output: Intake & Output 11/17/16 11/18/16 11/18/16 23:59 07:59 15:59 Intake Total 612.7 / 612.7 1050.6 / 1050.6 177.7 / 177.7 Output Total 600 / 600 / Balance 612.7 / 612.7 450.6 / 450.6 175.7 / 175.7 - Attending Attestation I examined this patient and my medical decision-making was reviewed with the APPLICATION PACKAGER/PA/Advanced Practice Nurse/Resident Physician. I agree with the documented findings, disposition and treatment plan as described except to the extent set forth below. Patient seen and examined at bedside Labs, radiology, chart personally reviewed. All lines examined without evidence of infection. Neuropsych: intubated sedated. Status Epiliptecus noted in afternoon. Increased versed gtt. and added propfol. CT head no acute process. Lytes replaced. Neuro consulted. EEG pending. Quite agitated off sedation moving all extremities without focal deficit prior to deep sedation for status epilepticus. Was not started on hypothermia protocol overnight and currently outside window to consider. Avoid fever Pulm: Intubated after cardiac arrest yesterday minimal vent settings as far as FiO2 support complicated by cardiogenic pulmonary edema concerning for PE however echo without RV strain and certainly would anticipate that PE large enough to cause cardiac arrest would would also present with RV strain was not started on heparin overnight at this point doubt utility as this is less likely at this time. Continue diuresis as tolerated by kidney function Cards: Heart failure with preserved ejection fraction status post cardiac arrest with 3 cycles of ACLS performed. Had return of spontaneous circulation all extremities noted. Evaluated by cardiology no STEMI troponin never has significantly increased cardiology does not feel this was a primary cardiac event questionable vasovagal syndrome as patient apparently was coming off the bathroom at the time that this happened mechanism of arrest is as of yet still unknown has been hemodynamically stable overnight echo without significant LV failure. Continue supportive therapies FEN-GI: Nothing by mouth for now consider enteral feedings in a.m. Renal: Acute on chronic kidney dysfunction which is multifactorial continue diuresis and electrolyte protocol replacement nephrology is on board may have to consider renal replacement therapy in near future thus far urine output has been acceptable renally dose all medications ID: Concern for aspiration pneumonia and being covered broadly at this time cultures pending D escalated 48 hours if no evidence of sepsis from pneumonia standpoint also being covered for osteomyelitis cultures pending Heme/Onc: Need DVT prophylaxis H&H is stable Endo: Glucose monitored sliding scale insulin per protocol Integ/MSK: ext osteo on ABx CODE: Full. Niece updated at bedside
[2016-11-18] MEDS: Aspirin Enteric Coated 81 MG Tablet PO SCH (08:21)
[2016-11-18] MEDS: Pantoprazole 40 MG VIAL IVP SCH (08:21)
[2016-11-18] MEDS: Furosemide 40 MG/4 ML VIAL IVP SCH ×2 (08:21→21:17)
[2016-11-18] MEDS: Nicotine 21 MG PATCH.TD24 TD SCH (08:21)
[2016-11-18] MEDS: Chlorhexidine Rinse 15 ML MOUTHWASH MM SCH ×2 (08:24→21:17)
[2016-11-18] MEDS: Insulin DETEMIR 100 UNIT/ML X5UNITS SQ SCH ×2 (08:29→21:21)
--- NOTE | 2016-11-18 09:01 | Cardiology Progress Note ---
Date of Encounter: 11/18/16 Time of Encounter: 08:59 Assessment and Plan (1) Diabetic ulcer of both feet associated with type 2 diabetes mellitus Current Visit: Yes Status: Acute Per other services (2) Diastolic CHF Current Visit: Yes Status: Acute Qualifiers: Congestive heart failure chronicity: chronic Qualified Code(s): I50.32 - Chronic diastolic (congestive) heart failure (3) CKD (chronic kidney disease) stage 3, GFR 30-59 ml/min Current Visit: Yes Status: Chronic Watch renal function closely (4) Obesity (BMI 30.0-34.9) Current Visit: No Status: Chronic . (5) A-fib Current Visit: Yes Status: Acute Probably related to ACLS meds - back in Sinus - watch for now. . Qualifiers: Qualified Code(s): I48.91 - Unspecified atrial fibrillation (6) Cardiac arrest Current Visit: Yes Status: Acute Echo reviewed - normal EF - please see full report. I am not convinced the PEA/arrest was a primary cardiac event. Would continue aggressive supportive care (vent, corrent lytes, etc). No specific additonal CV testing for ow. Subjective Principal diagnosis: Foot infection Interval history: Patient still intubated and sedated. Converted back to sinus rhythm overnight Objective Vital Signs, Last 4 Hours Temp Pulse Resp BP Pulse Ox 11/18/16 07:54 96.5 F L 18 131/70 98 11/18/16 07:00 61 26 131/70 95 11/18/16 06:25 20 127/67 93 L 11/18/16 06:00 59 27 127/67 92 L 11/18/16 05:00 64 14 126/68 97 General: Other (sedated, intubated, restraints inplace) HEENT: Atraumatic, Normocephaly Neck: No JVD, Normal carotid pulses Cardiac: Reg Rate and Rhythm Lungs: Normal Breath Sounds, Other (ventilator breath sounds) Neuro: Other (sedated, no spontaneous movement) Skin: No rashes noted on visualized skin Musculoskeletal: No Chest Wall Tenderness Extremities: Other (Trace edema BLE, toes issingright foot, dressing in place right foot. ) Results 11/18/16 04:18 11/18/16 04:18 Lab Results 11/17/16 11/17/16 11/17/16 04:34 17:21 17:21 WBC Hgb Hct Plt Count INR APTT Sodium 141 143 Potassium 5.2 H 4.8 H Chloride 110 H 108 Carbon Dioxide 19 15 L BUN 90 H 97 H Creatinine 2.62 H 2.90 H Glucose 95 199 H Calcium 8.6 8.7 Magnesium Total Bilirubin AST ALT Alkaline Phosphatase Troponin I 0.01 11/17/16 11/17/16 11/17/16 18:03 21:25 21:25 WBC 18.7 H 17.4 H Hgb 9.0 L 8.4 L Hct 29.4 L 27.3 L Plt Count 550 H 398 INR 1.0 APTT 25.5 L Sodium Potassium Chloride Carbon Dioxide BUN Creatinine Glucose Calcium Magnesium Total Bilirubin AST ALT Alkaline Phosphatase Troponin I 11/17/16 11/18/16 11/18/16 21:25 04:18 04:18 WBC 13.0 H Hgb 7.8 L Hct 25.2 L Plt Count 324 INR APTT Sodium Potassium Chloride Carbon Dioxide BUN Creatinine Glucose Calcium Magnesium Total Bilirubin AST ALT Alkaline Phosphatase Troponin I 0.02 0.24 H* 11/18/16 04:18 WBC Hgb Hct Plt Count INR APTT Sodium 139 Potassium 5.8 H D Chloride 107 Carbon Dioxide 20 BUN 108 H Creatinine 3.27 H Glucose 132 H Calcium 8.2 L Magnesium 1.8 Total Bilirubin 0.3 AST 31 ALT 41 Alkaline Phosphatase 67 Troponin I - EKG Interpretation EKG results cardiology: personally reviewed, no diagnostic ischemia Consult Discharge Plan - Plan Referrals: Luba Dorantes, PAC [Physician Guest Service Aide] - 11/20/16 11:40 am
[2016-11-18] MEDS: *HR* Heparin 5,000 UNIT/ML VIAL SQ SCH ×3 (10:04→23:47)
[2016-11-18 10:43] LABS: Metanephrine, Plasma <0.10 nmol/L (0.00-0.49)
--- NOTE | 2016-11-18 11:26 | ECHO - Doppler Report ---
Echocardiogram Name: Nikita Regalado Date of Study: 11/17/2016 Date: 1955 Ht: 73.0 in Medical Record#: [id number] Age: 61 Wt: 231.0 lb Gender: Male BSA: 2.29 Order #: [id number] Location: [facility] Room #: ICU10 Reading Physician: Vanessa Abreu DO Radiology Technologist: Eden Savage SARI Ordering Physician: Dany Goyal MD Primary Physician: Mark Coe MD Indications: Chest pain, Evaluate ejection fraction, Evaluate right side function Impressions: LVEF 60-65%. Normal left ventricular size and systolic function. Indeterminate diastolic function. RV appears mildly dilated with normal function. Mild mitral regurgitation. Mild tricuspid regurgitation. Probable mild pulmonary hypertension (TR gradient 37 mmHg). Patient on ventilator. Left Ventricular Wall Motion: Rest Echo Findings All wall segments showed normal motion. Findings: Study Quality * Technically challenging. Patient is supine on vent. ECG Findings * Atrial fibrillation. Left Ventricle * Normal LV chamber size, wall thickness and function. * LVEF 60-65%. * Indeterminate diastolic function. Mitral Valve * Normal mitral valve structure. * No mitral stenosis. * Mild mitral regurgitation. Aortic Valve * No aortic regurgitation. * Aortic valve not well visualized. * No aortic stenosis. Pulmonic Valve * Pulmonic valve is not well visualized. * No pulmonic stenosis. * Trace pulmonic regurgitation. Tricuspid Valve * Tricuspid valve not well visualized. * Mild tricuspid regurgitation. Left Atrium * Moderately dilated left atrium. Right Atrium * Normal right atrial size. Interatrial Septum * Interatrial septum not well evaluated. Pulmonary Artery * Pulmonary artery not well visualized. IVC * The IVC is not dilated. Right Ventricle * RV visually appears mildly dilated with normal function. Normal Lat S Fabian Pericardium * There is no pericardial effusion present. Aorta * Normally sized aortic root. History Hypertension Diabetes History of Smoking Years 45 Packs 1 Family History of CAD 3--16 a Previous Echo was performed. Measurements: BP: 126/ 97 2D Normal Values RVIDd: 3.00 cm <2.7 cm IVSd: 1.20 cm 0.6 - 1.0 cm LVIDd: 5.00 cm 3.7 - 5.6 cm LVPWd: 1.30 cm 0.6 - 1.1 cm LVIDs: 3.40 cm 1.5 - 3.6 cm AO: 2.70 cm < 4.0 cm LA: 4.10 cm 2.0 - 4.0cm %FS: 32.00 cm >25 % LVOT Diam: 2.00 cm LA volume: 71 Mitral Valve Peak E:1.14 m/sec Peak A:.45 m/sec E/A Ratio:2.5 Peak E' Lat Fabian:12.1 cm/s Peak E' Med Fabian:7.8 cm/s E/E' Lat Ratio:9.4 E/E' Med Ratio:14.6 Tricuspid Valve TV Regurg Peak Grad: 37.00mmHg Updated by Vanessa Abreu on 11/18/2016 11:21:24 AM electronically signed on 11/18/2016 11:23:38 AM with status of Final Wall Motion Armas: 1=Normal, 2=Hypokinesis, 3=Akinesis, 4=Dyskinesis, 5=Aneurysmal, 6=Hyperkinetic, X=Not Visualized (Blank)=Missing
--- NOTE | 2016-11-18 12:06 | Nephrology Progress Note ---
Date of Encounter: 11/18/16 Time of Encounter: 11:40 - Assessment and Plan (1) Acute respiratory failure Current Visit: Yes Status: Acute s/p PEA arrest, Vent settings per primary team Ok to use lasix intermittently for pulm edema Limit obligate fluids if possible Qualifiers: Respiratory failure complication: unspecified whether with hypoxia or hypercapnia Qualified Code(s): J96.00 - Acute respiratory failure, unspecified whether with hypoxia or hypercapnia (2) Acute kidney injury superimposed on chronic kidney disease Current Visit: Yes Status: Acute SCR worse today at 3.27, GFR 19 after PEA arrest. Discussed at length worsening renal function with niece and the possible need for LABOR ARBITRATOR. She would like to discuss with her brother plan of care before making a decision UOP documented as 1100cc in the past 24hrs, will monitor Avoid nephrotoxins if possible Ueosinophils negative (3) Anemia Current Visit: Yes Status: Acute Hgb worsening at 7.8. Transfusion paramenters per primary team Iron levels fair with Tsat at 20% and ferritin at 198 Qualifiers: Anemia type: other cause Other causes of anemia: chronic disease, kidney Qualified Code(s): N18.9 - Chronic kidney disease, unspecified; D63.1 - Anemia in chronic kidney disease (4) CKD (chronic kidney disease) stage 3, GFR 30-59 ml/min Current Visit: Yes Status: Chronic Baseline around 30-40s but has been fluctuating in the past 3 weeks (5) Hypertension Current Visit: Yes Status: Chronic BP improving arounf 120-150s systolic, continue current regimen Await the rest of secondary workup: aldosterone and cortisol WNL Renin and metanephrins still pending Qualifiers: Hypertension type: essential hypertension Qualified Code(s): I10 - Essential (primary) hypertension (6) Hyperkalemia Current Visit: Yes Status: Resolved Potassium elevated back up to 5.8 after PEA arrest. s/p bicarb gtt overnight now discontinued. s/p kayexalate with no BM yet. Repeat BMP pending Lasix should help his hyperkalemia as well with improved UOP Subjective Principal diagnosis: Foot infection Interval history: Pt seen and examined with interim events noted. s/p PEA arrest yesterday afternoon with CPR started. He is now intubated and sedated. he also received approx. 500cc bicarb gtt overnight in addition to at least 2 doses of lasix. Niece at bedside. Objective - Vital Signs Vital signs: Vital Signs Temp Pulse Resp BP Pulse Ox 11/18/16 12:02 97.4 F L 11/18/16 11:00 62 18 136/65 96 11/18/16 10:00 62 18 131/63 97 11/18/16 09:00 60 18 132/70 96 11/18/16 08:00 61 18 133/69 95 11/18/16 07:54 96.5 F L 18 131/70 98 11/18/16 07:00 61 26 131/70 95 11/18/16 06:25 20 127/67 93 L 11/18/16 06:00 59 27 127/67 92 L 11/18/16 05:00 64 14 126/68 97 11/18/16 04:34 96.7 F L 70 14 134/72 91 L 11/18/16 03:33 18 119/66 99 11/18/16 03:00 59 18 119/66 99 11/18/16 02:00 95 18 142/80 99 11/18/16 01:00 111 16 125/80 97 11/18/16 00:53 18 116/83 94 L 11/18/16 00:00 97.4 F L 95 14 135/93 94 L 11/17/16 23:00 83 15 133/97 94 L 11/17/16 22:00 114 23 131/106 86 L 11/17/16 21:40 21 131/106 86 L 11/17/16 21:03 96.4 F L 11/17/16 21:00 94 17 139/83 92 L 11/17/16 20:45 118 11/17/16 20:00 103 18 125/107 93 L 11/17/16 19:57 18 128/76 95 11/17/16 19:00 113 19 137/89 93 L 11/17/16 18:31 19 97 11/17/16 18:00 96.7 F L 94 20 115/81 96 11/17/16 17:30 18 125/80 11/17/16 16:38 20 96 11/17/16 15:55 98.6 F 64 16 146/76 93 L 11/17/16 12:25 64 Intake and Output 11/17/16 11/18/16 11/18/16 23:59 07:59 15:59 Intake Total 612.7 / 612.7 1050.6 / 1050.6 177.7 / 177.7 Output Total 600 / 600 352 / 352 Balance 612.7 / 612.7 450.6 / 450.6 -174.3 / -174.3 Intake: IV Fluids 612.7 / 612.7 1050.6 / 1050.6 177.7 / 177.7 FentaNYL (PF) 1,000 MCG 100 / 100 100 / 100 In 0.9 % Sodium Chloride 80 ML @ 50 MCG/HR 5 mls/ hr IVC CONT ALEX Rx#: [id number] Versed 50 MG In 0.9 % 12.7 / 12.7 9.6 / 9.6 77.7 / 77.7 Sodium Chloride 90 ML @ 10 MG/HR 20 mls/hr IVC CONT ALEX Rx#:[id number] Sodium Bicarbonate 150 731 / 731 MEQ In Dextrose 5% 1,000 ML @ 75 mls/hr IVC . [id number] ALEX Rx#: [id number] Unasyn 3,000 MG In 0.9 % 100 / 100 Sodium Chloride (Mini-Bag +) 100 ML @ 200 mls/hr IVPB Q12H ALEX Rx#: [id number] Calcium Gluconate 1,000 110 / 110 MG In Dextrose 5% 100 ML @ 220 mls/hr IVPB ONCE STA Rx#:[id number] Zosyn 3.375 GM In 100 / 100 Dextrose 5% (Minibag+) 100 ML 100 ML @ 25 mls/hr IVPB Q8HR ALEX Rx#: [id number] Vancocin 1,750 MG In 500 / 500 Dextrose 5% 500 ML @ 334. 014 mls/hr IVPB ONCE ONE Rx#:[id number] Output: Catheter 600 / 600 350 / 350 Wound Drainage 2 / 2 Right Lateral Foot 2 / 2 Other: Blood Glucose* 156 201 201 - General Appearance General appearance: Present: sedated on ventilator, intubated EENT: Present: ATNC, PERRL Neck: Present: no JVD Additional Comments: good areation ant bilat Cardiology: Present: edema (LE, UE bilat), normal S1, normal S2 Gastrointestinal: Present: no tenderness, no guarding, obese Integumentary: Present: warm and dry Additional Comments: sedated Musculoskeletal: Present: no deformities Additional Comments: sedated - Lab 11/19/16 03:18 11/19/16 03:18 Most recent lab results ABG pH 7.30 pH Units (7.32-7.45) L 11/18/16 05:45 ABG pCO2 47 mmHg (35-45) H 11/18/16 05:45 ABG pO2 92 mmHg (85-104) 11/18/16 05:45 ABG HCO3 23.1 mEQ/L (21-27) 11/18/16 05:45 ABG O2 Saturation 96 % (95-98) 11/18/16 05:45 Calcium 8.2 mg/dL (8.6-10.8) L 11/18/16 04:18 Magnesium 1.8 mg/dL (1.6-2.6) 11/18/16 04:18 Urine Creatinine 47 mg/dL 11/12/16 15:20 Urine Sodium 65.0 mEq/L 11/12/16 15:20 Consult Discharge Plan - Plan Referrals: Luba Dorantes, PAC [Physician Commissioning Specialist] - 11/20/16 11:40 am
[2016-11-18 13:49] LABS: Ionized Calcium 1.07 mmol/L (1.15-1.35)
[2016-11-18 13:52] LABS: ABG Base Excess -4.9 mEq/L (-2.0 to 3.0); ABG HCO3 21.6 mEQ/L (21-27); ABG Oxygen Saturation 100 % (95-98); ABG PCO2 46 mmHg (35-45); ABG PH 7.28 pH Units (7.32-7.45); ABG PO2 287 mmHg (85-104); Blood Gas FiO2 100 %
[2016-11-18 13:56] LABS: Albumin 2.7 g/dL (3.5-5.0); Calcium 7.9 mg/dL (8.6-10.8); Phosphorous 9.3 mg/dL (2.3-4.7)
[2016-11-18 13:57] LABS: Potassium 4.7 mEq/L (3.5-4.5)
--- NOTE | 2016-11-18 14:28 | Venous Imaging Report ---
LE Venous Duplex Patient Name:Nikita Regalado Order Number:[id number] Procedure Date:11/17/2016 Date:1955ge:61 yrs Gender:Male Location:[facility] Room #: ICU10 Reel Stripper:Eden Savage RDCS Referring MD:Dany Goyal MD timber management specialist:Mark Coe MD Reading MD:Loki Danielle MD , FACS Primary Indications:Swelling to legs Secondary Indications: Risk Factors Yes/No Hx of DVT No Anticoagulants Yes Impressions: Bilateral lower extremity: normal superficial and deep exam. Recommendations: SPOKE TO SYL ABURTO UPON COMPLETION OF EXAM AND GIVE NEGATIVE PRELIM RESULTS. Test completed on 11/17/2016 at 9:30:00 pm. Critical findings reported to Syl Aburto in ICU in person at 9:30:00 pm on 11/17/2016 by Eden Savage RDCS. Findings Venous Duplex Results: Right: Venous imaging of the lower extremity reveals full patency and normal vessel compressibility of the right distal iliac, right common femoral, right superficial femoral, right popliteal, right posterior tibial, right peroneal, right great saphenous and right lesser saphenous. Doppler signals in the evaluated veins were normal. Left: Venous imaging of the lower extremity reveals full patency and normal vessel compressibility of the left distal iliac, left common femoral, left superficial femoral, left popliteal, left posterior tibial, left peroneal, left great saphenous and left lesser saphenous. Doppler signals in the evaluated veins were normal. Prior Study: No prior study available for comparison. Lower Extremity Venous Duplex Side Vein Compress Spontaneous Flow Augment Diameter (cm) Depth (cm) Right Distal Iliac Normal Yes Phasic Yes Right Common Femoral Normal Yes Phasic Yes Right Superficial Femoral Normal Yes Phasic Yes Right Popliteal Normal Yes Phasic Yes Right Posterior Tibial Normal Yes Phasic Yes Right Peroneal Normal Yes Phasic Yes Right Great Saphenous Normal Yes Phasic Yes Right Lesser Saphenous Normal Yes Phasic Yes Left Distal Iliac Normal Yes Phasic Yes Left Common Femoral Normal Yes Phasic Yes Left Superficial Femoral Normal Yes Phasic Yes Left Popliteal Normal Yes Phasic Yes Left Posterior Tibial Normal Yes Phasic Yes Left Peroneal Normal Yes Phasic Yes Left Great Saphenous Normal Yes Phasic Yes Left Lesser Saphenous Normal Yes Phasic Yes Updated by Loki Danielle MD, FACS on 11/18/2016 2:24:13 PM Loki Danielle MD electronically signed on 11/18/2016 2:25:09 PM with status of Final
--- NOTE | 2016-11-18 14:40 | Electrocardiograph Report ---
[address] [place] [address] Test Date: 2016-11-17 Pat Name: Nikita Regalado Department: 110 Room: 10 Gender: M Cso: : 1955 Requested By: Claus Crawford Order Number: [id number] Reading MD: Vanessa Abreu Measurements Intervals [place] Rate: 106 P: IL: 0 QRS: 42 QRSD: 94 T: 60 QT: 330 QTc: 392 Interpretive Statements ATRIAL FIBRILLATION WITH RAPID VENTRICULAR RESPONSE LOW QRS VOLTAGE IN EXTREMITY LEADS MINIMAL ST DEPRESSION ABNORMAL RHYTHM ECG Electronically Signed On 11-18-2016 14:39:18 EST by Vanessa Abreu
--- NOTE | 2016-11-18 14:51 | Electrocardiograph Report ---
[address] [place] [address] Test Date: 2016-11-18 Pat Name: Nikita Regalado Department: 109 Room: 10 Gender: Lcsw: : 1955 Requested By: Claus Crawford Order Number: [id number] Reading MD: Vanessa Abreu Measurements Intervals [place] Rate: 59 P: 34 CO: 165 QRS: 19 QRSD: 90 T: 15 QT: 396 QTc: 396 Interpretive Statements SINUS BRADYCARDIA LOW QRS VOLTAGE IN EXTREMITY LEADS Electronically Signed On 11-18-2016 14:49:53 EST by Vanessa Abreu
[2016-11-18 16:20] LABS: ABG Base Excess -3.1 mEq/L (-2.0 to 3.0); ABG HCO3 22.7 mEQ/L (21-27); ABG Oxygen Saturation 96 % (95-98); ABG PCO2 43 mmHg (35-45); ABG PH 7.33 pH Units (7.32-7.45); ABG PO2 88 mmHg (85-104)
[2016-11-18 16:25] LABS: Blood Gas FiO2 60 %
[2016-11-18] MEDS ORDERED: levETIRAcetam 1,000 MG in 0.9 % Sodium Chloride 100 ML IVPB ONE (17:02)
--- NOTE | 2016-11-18 18:48 | Neurology - Consult Note ---
Date of Encounter: 11/18/16 Time of Encounter: 18:48 Assessment and Plan (1) Seizure Current Visit: Yes Status: Acute Patiently apparently had clinical seizure earlier with this by the ICU staff is been loaded with Keppra, suggest to continue on Namenda and his dose of 500 twice a day . he is also on propofol drip as well as Versed. Stat EEG did not show any seizure activity shows medication effect suggested to continue on propofol drip as well as Keppra 500 mg twice a day. 1 clinically stable may need to repeat an EEG , later on when he is more stable and when sedation is decreased movement reevaluated the patient to see if indeed if he had any focal motor neurological deficit are not bad as this time and be very difficult to see if indeed he has any damage or not , at the same time he would also require MRI of the brain later when he is more stable. Other workup is as per ICU team (2) Acute respiratory failure Current Visit: Yes Status: Acute This patient who has an history of multiple medical conditions apparently had respiratory failure status post cardiac arrest is been intubated now other treatment is as per ICU team Qualifiers: Respiratory failure complication: unspecified whether with hypoxia or hypercapnia Qualified Code(s): J96.00 - Acute respiratory failure, unspecified whether with hypoxia or hypercapnia History of Present Illness HPI: Mr. Regalado is a 61 year old male with history of diabetes with peripheral neuropathy and chronic diabetic foot ulcers, diastolic CHF, CKD stage 3, hypertension, hepatitis C, hyperlipidemia, and multiple amputations who initially presented 2 weeks ago with left lower rib pain without history of trauma. Patient was also noted to have recurrent foot ulcers. Patent has been hospitalized for Acute on Chronic renal failure, diabetic foot ulcers, and osteomyelitis of the right foot. Wound cultures were positive, Patient has been on Unasyn and Vancomycin. Last evening around 17:00pm the patient reported chest pain, suddenly lost consciousness, and became pulseless. EKG revealed PEA, ACLS was started and completed for 10 minutes, During the code the patient was intubated. CXR findings were consistent with pulmonary edema. noted to be agitated, At this time the patient is sedated on ventilator. earlier sedation was decreased for EEG and he noted to have convulsive activity , sedated again remain intubated. CT of head NO acute bleed or infarct Past Med Surg Social Fam HX - Past Medical History Medical history: arthritis, COPD, diabetes, GERD, hepatitis, hyperlipidemia, hypertension, osteoporosis, renal disease, syncope Psychiatric history: anxiety, depression - Past Surgical History Surgical History: cataract, LE stent(s), orthopedic, other - Social History Smoking Status: Current every day smoker Smokeless Tobacco Status: No Alcohol use: none Drug use: none - Family History Mother Living Status: Hx Family Cardiac Disorders: Yes (htn) Hx Family Respiratory Disorders: No Hx Family Cancer: Yes Hx Family Endocrine Disorder: Yes (dm) Hx Family Medical Disorders: Yes Father Living Status: Medications and Allergies Aspirin [Adult Low Dose Aspirin EC] 81 mg PO DAILY 12/11/15 [History] Budesonide/Formoterol 160/4.5 [Symbicort 160/4.5] 2 puff IH BIDR 12/11/15 [ History] Citalopram Hydrobromide [Celexa] 20 mg PO DAILY 12/11/15 [History] Enalapril Maleate [Vasotec] 10 mg PO QPM 12/11/15 [History] Enalapril Maleate [Vasotec] 20 mg PO QAM 12/11/15 [History] Ergocalciferol (VITAMIN D2) [Vitamin D2 (50,000 UNIT)] 50,000 unit PO MÁRQUEZ [History] Furosemide [Lasix] 40 mg PO DAILY 12/11/15 [History] Gabapentin [Neurontin] 600 mg PO TID 12/11/15 [History] Hydrochlorothiazide 25 mg PO DAILY 12/11/15 [History] Hydroxyzine HCl 50 mg PO BID 12/11/15 [History] Insulin ASPART [Novolog] 36 - 38 unit SQ TIDWM 12/11/15 [History] Insulin Glargine,Hum.rec.anlog [Lantus Solostar] 80 unit SQ BID 12/11/15 [ History] Meclizine [Antivert] 25 mg PO BID PRN 12/11/15 [History] Omeprazole [PriLOSEC] 20 mg PO BIDAC 12/11/15 [History] Ropinirole [Requip] 1 mg PO HS 12/11/15 [History] Rosuvastatin [Crestor] 40 mg PO DAILY 12/11/15 [History] SitaGLIPtin [Januvia] 100 mg PO DAILY 12/11/15 [History] Tiotropium [Spiriva] 18 mcg IH DAILY 12/11/15 [History] Trazodone HCl [TraZODone] 100 mg PO HS 12/11/15 [History] Albuterol Neb [Proventil Neb] 2.5 mg IH Q2H PRN #0 inhsol 12/15/15 [Rx] Carvedilol [Coreg] 12.5 mg PO BIDWM #0 12/15/15 [Rx] Oxycodone HCl/Acetaminophen [Percocet 10-325 mg Tablet] 1 tab PO Q4H PRN #20 tablet 12/15/15 [Rx] Cyclobenzaprine [Flexeril] 10 mg PO TID #14 tablet 03/25/16 [Rx] Amlodipine [Norvasc] 5 mg PO DAILY #30 tablet 08/08/16 [Rx] PredniSONE 40 mg PO DAILY #8 tablet 08/08/16 [Rx] Allergies acetaminophen [From Darvocet-N] Allergy (Verified 12/11/15 11:46) Hives ibuprofen Allergy (Verified 12/11/15 11:46) Hives propoxyphene [From Darvocet-N] Allergy (Verified 12/11/15 11:46) Hives tramadol [From Ultram] Allergy (Verified 12/11/15 11:46) Hives ROS unobtainable: due to endotracheal tube All Systems: A 10-system review of systems was performed and is negative for pertinent findings except as documented above in the HPI. Physical Examination - Vital Signs Vital Signs: Initial Vital Signs Temp Pulse Resp BP Pulse Ox 98.6 F 89 22 154/93 100 11/04/16 19:52 11/04/16 19:52 11/04/16 19:52 11/04/16 19:52 11/04/16 19:52 - Exam Exam: HEART : S1 S2 AUDIBLE, LUNG: DECREASE BREATH SOUNDS, ext" 1+ PEDAL EDEMA - Constitutional General appearance: other (PT Intubated,sedated, limited Neuro exam due to sedation, YOLIE sluggish, corneals positive, NO withdrawl to deep pain, ) - Neurologic Mental Status Examination: does not follow commands, no spontaneous eye opening to voice or tactile stimulation Cranial nerve examination: PERRL Results - Laboratory Findings CBC and BMP: 11/19/16 03:18 11/19/16 03:18 Abnormal lab findings: Abnormal lab results WBC 13.0 K/mcL (4.3-11.1) H 11/18/16 04:18 RBC 2.84 M/mcL (4.19-5.50) L 11/18/16 04:18 Hgb 7.8 g/dL (12.9-16.9) L 11/18/16 04:18 Hct 25.2 % (37.5-50.1) L 11/18/16 04:18 MCH 27.5 pg (28.0-33.3) L 11/18/16 04:18 MCHC 31.0 g/dL (31.6-35.5) L 11/18/16 04:18 RDW 16.2 % (11.5-14.5) H 11/18/16 04:18 MPV 8.9 fL (9.4-12.4) L 11/18/16 04:18 Metamyelocytes % 4.0 % (0) H 11/13/16 03:25 Myelocytes % 4.0 % (0) H 11/14/16 03:45 Neutrophils # 11.5 K/mcL (1.6-8.9) H 11/18/16 04:18 Lymphocytes # 0.4 K/mcL (0.6-4.6) L 11/18/16 04:18 Nucleated RBCs/100 WBC 0.2 /100 WBC (0) H 11/18/16 04:18 Reactive Lymphocytes Present (Not Present) A 11/13/16 03:25 Toxic Vacuolation Present (Not Present) A 11/13/16 03:25 Platelet Estimate Marked Decrease (Normal) L 11/14/16 03:45 Polychromasia 1+ (Not Present) A 11/12/16 05:00 ESR 66 mm/hr (0-10) H 11/12/16 08:30 APTT 25.5 Seconds (26.0-36.0) L 11/17/16 21:25 ABG Base Excess -3.1 mEq/L (-2.0 to 3.0) L 11/18/16 16:02 Potassium 4.7 mEq/L (3.5-4.5) H D 11/18/16 13:25 BUN 124 mg/dL (8-26) H 11/18/16 13:25 Creatinine 3.54 mg/dL (0.72-1.25) H 11/18/16 13:25 Est GFR ( Amer) 21 (> 60) L 11/18/16 13:25 Est GFR (Non-Af Amer) 18 (> 60) L 11/18/16 13:25 BUN/Creatinine Ratio 35 (6-26) H 11/18/16 13:25 Glucose 147 mg/dL (70-99) H 11/18/16 13:25 POC Glucose 131 (58-89) H 11/18/16 15:35 Calculated Osmolality 336 (280-300) H 11/18/16 13:25 Lactic Acid 2.6 mmol/L (0.5-2.2) H 11/18/16 13:20 Uric Acid 8.4 mg/dL (3.5-7.2) H 11/12/16 05:03 Calcium 7.9 mg/dL (8.6-10.8) L 11/18/16 13:25 Ionized Calcium 1.07 mmol/L (1.15-1.35) L 11/18/16 13:25 Phosphorus 9.3 mg/dL (2.3-4.7) H 11/18/16 13:25 Troponin I 0.24 ng/mL (0-0.03) H* 11/18/16 04:18 C-Reactive Protein 13 mg/L (Less than 5) H 11/12/16 08:30 B-Natriuretic Peptide 201 pg/mL (0-100) H 11/16/16 Unknown Serum Total Protein 5.7 g/dL (6.0-8.3) L 11/18/16 04:18 Albumin 2.7 g/dL (3.5-5.0) L 11/18/16 13:25 Albumin/Globulin Ratio 0.8 (1.1-2.2) L 11/18/16 04:18 Urine Protein 100 mg/dL (Neg-Trace) H 11/12/16 15:20 Urine Glucose (UA) 250 mg/dL (Normal) H 11/12/16 15:20 Urine Microscopic RBC 3-5 per hpf (0-3) H 11/12/16 15:20 Ur Squamous Epith Cells Moderate per lpf (None-Few) H 11/12/16 15:20 - Diagnostic Findings Additional findings: CT head: remote left basal ganglia infarct, No acute abnormality, no bleed No infarct Consult Discharge Plan - Plan Referrals: Luba Dorantes, PAC [Physician Metal Roofer] - 11/20/16 11:40 am
--- NOTE | 2016-11-18 19:04 | EEG/EMG/Oth Biometrics Report ---
EEG Procedure Report Date of procedure: 11/18/16 EEG Procedure: Routine EEG Procedure Note: Patient unresponsive clinical suspicion is off seizure intubated on sedation. EEG report: This 18 channel digital EEG performed utilizing 10/ 20 electrode placement system on a patient who is intubated and sedated, Patient has a very low amplitude less developed background frequency, without any significant reactivity to external stimuli Generalized slowing low amplitude continued throughout the whole study this some artifact . Hyperventilation could not be performed , photic stimulation did not elicit any seizure activity. Clinical interpretation: Abnormal electroencephalogram, very low amplitude generalized slowing which is a nonspecific pattern consistent with metabolic toxic hypoxic encephalopathy, could also be seen with postictal state but at the same time it could be related to the medications effect as well. This pattern consistent with diffuse cortical dysfunction. NO Seizure activity recorded Repeat study is suggested if clinically warranted when patient is off sedation.
[2016-11-19] MEDS ORDERED: Vancomycin 1,500 MG in D5% in Water 250 ML IVPB ONE (03:00)
[2016-11-19] MEDS: Insulin LISPRO 300 UNITS/3 ML VIAL SQ SCH ×5 (03:40→22:30)
[2016-11-19] MEDS: Lacri-Lube 3.5 GM TUBE BOTH EYES SCH ×6 (03:41→23:46)
[2016-11-19 03:43] LABS: Hematocrit 25.1 % (37.5-50.1); Hemoglobin 8.1 g/dL (12.9-16.9); Immature Granulocytes % 1.1 % (0-4); Lymphocytes # 0.3 K/mcL (0.6-4.6); Mean Corpuscular HGB Conc 32.3 g/dL (31.6-35.5); Mean Corpuscular Hemoglobin 27.8 pg (28.0-33.3); Mean Corpuscular Volume 86.3 fL (83.0-100.0); Mean Platelet Volume 9.7 fL (9.4-12.4); Monocytes # 0.3 K/mcL (0.0-1.3); Monocytes % 2.8 %; Neutrophils # 10.6 K/mcL (1.6-8.9); Platelet Count 285 K/mcL (140-400); Red Blood Count 2.91 M/mcL (4.19-5.50); Red Cell Distribution Width 16.5 % (11.5-14.5); Segmented Neutrophils % 93.1 %
[2016-11-19 03:49] LABS: INR 1.1; Prothrombin Time 12.2 Seconds (9.4-12.1)
[2016-11-19 03:50] LABS: Ionized Calcium 1.01 mmol/L (1.15-1.35)
[2016-11-19] MEDS: Ipratropium/Albuterol Neb 3 ML IH SCH ×5 (03:52→20:32)
[2016-11-19 03:55] LABS: Potassium 3.8 mEq/L (3.5-4.5)
[2016-11-19 05:44] LABS: ABG Base Excess 0.4 mEq/L (-2.0 to 3.0); ABG HCO3 23.1 mEQ/L (21-27); ABG Oxygen Saturation 99 % (95-98); ABG PCO2 29 mmHg (35-45); ABG PH 7.51 pH Units (7.32-7.45); ABG PO2 115 mmHg (85-104)
[2016-11-19 05:49] LABS: Blood Gas FiO2 60 %
[2016-11-19] MEDS: *HR* Heparin 5,000 UNIT/ML VIAL SQ SCH ×2 (06:09→16:14)
[2016-11-19] MEDS: methylPREDNISolone 125 MG/2 ML VIAL IVP SCH ×4 (06:09→23:45)
[2016-11-19] MEDS: FentaNYL (PF) 1,000 MCG in 0.9 % Sodium Chloride 80 ML IVC SCH ×2 (06:39→17:33)
[2016-11-19] MEDS ORDERED: Aminoglycoside Consult 1 EACH MC ONE (08:24)
[2016-11-19 09:38] LABS: ABG Base Excess -0.8 mEq/L (-2.0 to 3.0); ABG HCO3 24.3 mEQ/L (21-27); ABG Oxygen Saturation 99 % (95-98); ABG PCO2 41 mmHg (35-45); ABG PH 7.38 pH Units (7.32-7.45); ABG PO2 128 mmHg (85-104); ABG TCO2 25.6 mEq/L (20-26)
[2016-11-19 09:39] LABS: Blood Gas FiO2 50 %
[2016-11-19] MEDS: Insulin DETEMIR 100 UNIT/ML X5UNITS SQ SCH ×2 (09:52→23:07)
[2016-11-19] MEDS: Aspirin Enteric Coated 81 MG Tablet PO SCH (09:52)
[2016-11-19] MEDS: Piperacillin/Tazobactam 3.375 GM in D5% in Water (Mini-Bag+) 100 ML IVPB SCH (09:53)
[2016-11-19] MEDS: Nicotine 21 MG PATCH.TD24 TD SCH (09:53)
[2016-11-19] MEDS: Furosemide 40 MG/4 ML VIAL IVP SCH ×2 (09:53→23:41)
[2016-11-19] MEDS: Pantoprazole 40 MG VIAL IVP SCH (09:53)
[2016-11-19] MEDS: Chlorhexidine Rinse 15 ML MOUTHWASH MM SCH ×2 (09:55→21:01)
[2016-11-19 10:21] LABS: CK-MB (CK isoenzymes) 0 % (0-4); CK-MM (CK-isoenzymes) 100 % (96-100)
--- NOTE | 2016-11-19 10:30 | Cardiology Progress Note ---
Date of Encounter: 11/19/16 Time of Encounter: 10:28 Assessment and Plan (1) Acute respiratory failure Current Visit: Yes Status: Acute s/p PEA arrest, Vent settings per primary team. Do not think this was a primary cardiac event. EF preserved on echo. Cardiology is signing off. Reconsult PRN. Qualifiers: Respiratory failure complication: unspecified whether with hypoxia or hypercapnia Qualified Code(s): J96.00 - Acute respiratory failure, unspecified whether with hypoxia or hypercapnia (2) Diastolic CHF Current Visit: Yes Status: Acute CXR reviewed--small bilateral pleural effusions. Mild LE edema on exam. On IV Lasix 40mg BID. Recomment Strict I/Os, daily weights, Na and fluid restriction. Diuretics can be adjusted by nephrology as necessary. Qualifiers: Congestive heart failure chronicity: acute on chronic Qualified Code(s): I50.33 - Acute on chronic diastolic (congestive) heart failure (3) A-fib Current Visit: Yes Status: Acute S/P PEA arrest and ACLS. Converted back to SR shortly after with no recurrence of PAF noted since. No anticoagulation warranted since this was a brief episode without recurrence. Echo shows preserved EF 60-65%. AVG HR on tele 60, SR. Continue BB. Pt remains intubated and sedated. Cardiology signing off. Reconsult PRN. Qualifiers: Atrial fibrillation type: paroxysmal Qualified Code(s): I48.0 - Paroxysmal atrial fibrillation (4) Acute kidney injury superimposed on chronic kidney disease Current Visit: Yes Status: Acute SCR slightly improved today at 3.07 today, was 3.54 yesterday, s/p PEA arrest. Nephrology following/managing. (5) Hypertension Current Visit: Yes Status: Chronic Elevated this AM--160s systolic. Add norvasc. Adjust as necessary. Qualifiers: Hypertension type: essential hypertension Qualified Code(s): I10 - Essential (primary) hypertension Discussion w patient/family: The assessment and plan as outlined above was discussed with the patient and/or family members who expressed understanding and agreement. All questions were answered. Thank you for involving us in the care of your patient. Please call with any questions. Subjective Principal diagnosis: Foot infection Interval history: Mr. Regalado is a 61 year old male with multiple cardiac risk factors including CKD, PVD, admitted several days ago with a foot infection. s/p PEA arrest 2 days ago. Post EKG shows Afib with with mild RVR, but then converted to SR. Pt still intubated and sedated. 24 hour tele AVG HR 60, SR, no evidence of recurrent PAF. Echo showed preserved EF 60-65%. Objective Vital Signs, Last 4 Hours Temp Pulse Resp BP Pulse Ox 11/19/16 10:00 59 16 164/86 99 11/19/16 09:00 60 16 166/84 99 11/19/16 08:00 61 15 149/77 97 11/19/16 07:00 97.4 F L 65 20 145/72 96 11/19/16 06:55 24 164/75 99 11/19/16 06:41 58 20 164/75 98 11/19/16 06:35 20 164/75 98 Vital Signs Temp Pulse Resp BP Pulse Ox 11/19/16 10:00 59 16 164/86 99 11/19/16 09:00 60 16 166/84 99 11/19/16 08:00 61 15 149/77 97 11/19/16 07:00 97.4 F L 65 20 145/72 96 11/19/16 06:55 24 164/75 99 11/19/16 06:41 58 20 164/75 98 11/19/16 06:35 20 164/75 98 11/19/16 06:00 64 20 180/84 99 11/19/16 04:42 59 20 171/82 99 11/19/16 03:54 56 20 161/77 100 11/19/16 03:52 20 161/77 99 11/19/16 03:14 57 11/19/16 03:04 96.3 F L 58 20 160/77 98 11/19/16 01:50 20 153/75 98 11/19/16 01:42 59 20 153/75 98 11/19/16 00:51 60 20 152/75 99 11/19/16 00:00 57 20 151/75 99 11/18/16 23:54 20 159/81 99 11/18/16 23:37 96.4 F L 11/18/16 23:16 60 11/18/16 23:06 60 20 158/80 99 11/18/16 21:52 20 167/84 99 11/18/16 21:43 59 20 167/84 99 11/18/16 20:46 60 20 157/77 99 11/18/16 20:00 20 146/73 98 11/18/16 19:49 97.0 F L 60 20 148/73 98 11/18/16 19:07 97.0 F L 11/18/16 19:00 60 20 145/75 98 11/18/16 18:00 62 20 137/66 97 11/18/16 17:14 20 137/67 98 11/18/16 17:00 63 20 137/67 98 11/18/16 16:00 62 20 136/65 96 11/18/16 15:53 96.3 F L 11/18/16 15:27 20 136/65 96 11/18/16 15:00 62 20 139/66 94 L 11/18/16 14:00 63 18 145/72 100 11/18/16 13:00 85 18 154/69 100 11/18/16 12:02 97.4 F L 11/18/16 12:00 97.4 F L 62 11/18/16 11:32 21 136/65 97 11/18/16 11:00 62 18 136/65 96 Intake and Output 11/18/16 11/19/16 11/19/16 23:59 07:59 15:59 Intake Total 453 / 453 696 / 696 Output Total 1650 / 1650 1950 / 1950 Balance -1197 / -1197 -1254 / -1254 Intake: IV Fluids 453 / 453 696 / 696 FentaNYL (PF) 1,000 MCG 100 / 100 100 / 100 In 0.9 % Sodium Chloride 80 ML @ 50 MCG/HR 5 mls/ hr IVC CONT ALEX Rx#: [id number] Versed 50 MG In 0.9 % 76 / 76 183 / 183 Sodium Chloride 90 ML @ 10 MG/HR 20 mls/hr IVC CONT ALEX Rx#:[id number] Diprivan 1,000 mg In 100 72 / 72 63 / 63 ml @ 5 MCG/KG/MIN 3.309 mls/hr IVC .Q24H ALEX Rx#: [id number] Keppra 500 MG In 0.9 % 105 / 105 Sodium Chloride 100 ML @ 400 mls/hr IVPB BID ALEX Rx#:[id number] Zosyn 3.375 GM In 100 / 100 100 / 100 Dextrose 5% (Minibag+) 100 ML 100 ML @ 25 mls/hr IVPB Q8HR [facility] Rx#: [id number] Vancocin 1,500 MG In 250 / 250 Dextrose 5% 250 ML @ 166. 667 mls/hr IVPB 0300 ONE Rx#:[id number] Oral 0 / 0 Output: Catheter 1650 / 1650 1950 / 1950 Wound Drainage 0 / 0 Right Lateral Foot 0 / 0 Other: Stool Size Moderate Stool Consistency soft Stool Color Brown Blood Glucose* 152 165 General: Conversant, No Apparent Distress HEENT: Atraumatic, Normocephaly, Mucus Membranes Moist Neck: No JVD, Normal carotid pulses Cardiac: Reg Rate and Rhythm, Normal S1 and S2, No Murmur Lungs: Other (on vent) Neuro: Other (sedated and intubated) Abdomen: Soft, Non-Tender Skin: No rashes noted on visualized skin Musculoskeletal: No Chest Wall Tenderness Extremities: Other (mild BLE edema) Results 11/19/16 03:18 11/19/16 03:18 Lab Results 11/18/16 11/19/16 11/19/16 13:25 03:18 03:18 WBC 11.4 H Hgb 8.1 L Hct 25.1 L Plt Count 285 INR Sodium 142 140 Potassium 4.7 H D 3.8 Chloride 107 107 Carbon Dioxide 19 20 BUN 124 H 108 H Creatinine 3.54 H 3.07 H Glucose 147 H 151 H Calcium 7.9 L 8.0 L Magnesium 2.0 11/19/16 03:18 WBC Hgb Hct Plt Count INR 1.1 Sodium Potassium Chloride Carbon Dioxide BUN Creatinine Glucose Calcium Magnesium Short CBC 11/19/16 Range/Units 03:18 WBC 11.4 H (4.3-11.1) K/mcL Hgb 8.1 L (12.9-16.9) g/dL Hct 25.1 L (37.5-50.1) % Plt Count 285 (140-400) K/mcL Neutrophils # 10.6 H (1.6-8.9) K/mcL BMP 11/19/16 11/18/16 Range/Units 03:18 13:25 Sodium 140 142 (136-145) mEq/L Potassium 3.8 4.7 H D (3.5-4.5) mEq/L Chloride 107 107 (98-109) mEq/L Carbon Dioxide 20 19 (19-29) mEq/L BUN 108 H 124 H (8-26) mg/dL Creatinine 3.07 H 3.54 H (0.72-1.25) mg/dL Glucose 151 H 147 H (70-99) mg/dL Calcium 8.0 L 7.9 L (8.6-10.8) mg/dL Liver Function 11/18/16 Range/Units 13:25 Albumin 2.7 L (3.5-5.0) g/dL Impressions Chest X-Ray 11/18/16 01:02 IMPRESSION: 1. Stable lines and tubes. Of note, the right internal jugular central venous catheter is likely located in the right atrium. 2. Minimal improvement of patchy airspace opacities which may represent pulmonary edema or infection. 3. Small bilateral effusions. D/ / 11/18/2016 07:48:35 Stella Askew MD / damaris Interpreting Provider: Stella Askew MD Head CT 11/18/16 12:53 IMPRESSION: No acute intracranial abnormality. Unchanged remote left basal ganglia lacunar infarct. D/ / 11/18/2016 14:44:40 Chantell Solis MD / damaris Interpreting Provider: Chantell Solis MD Active Medications Albuterol/Ipratropium (Duoneb) 3 ml IH [id number] ALEX PRN Reason: Protocol Stop: 05/18/17 04:01 Last Admin: 11/19/16 07:50 Dose: 3 ml Artificial Tears (Lacri-Lube) 1 appl BOTH EYES Q4HR ALEX PRN Reason: Protocol Stop: 05/19/17 20:01 Last Admin: 11/19/16 09:55 Dose: 1 appl Artificial Tears (Lacri-Lube) 1 appl BOTH EYES Q2HR PRN; Protocol PRN Reason: Dry Eyes Stop: 05/19/17 18:00 Aspirin (Aspirin Ec) 81 mg PO DAILY ALEX Stop: 05/17/17 09:01 Last Admin: 11/19/16 09:52 Dose: 81 mg Carvedilol (Coreg) 25 mg PO BIDWM ALEX PRN Reason: Protocol Stop: 05/14/17 07:54 Last Admin: 11/19/16 09:52 Dose: 25 mg Chlorhexidine Gluconate (Chlorhexidine Rinse) 15 ml MM BID ALEX Stop: 05/19/17 21:01 Last Admin: 11/19/16 09:55 Dose: 15 ml Dextrose/Water (Dextrose 50% (Syg)) 25 ml IVP AD PRN PRN Reason: Hypoglycemia Stop: 05/07/17 06:21 Furosemide (Lasix) 40 mg IVP BID ALEX Stop: 05/19/17 21:01 Last Admin: 11/19/16 09:53 Dose: 40 mg Glucagon (Glucagen) 1 mg IM ONCE PRN PRN Reason: Hypoglycemia Stop: 05/07/17 06:24 Glucose (Gluctose) 15 gm PO ONCE PRN PRN Reason: Hypoglycemia Stop: 05/07/17 06:21 Glucose (Gluctose) 30 gm PO ONCE PRN PRN Reason: Hypoglycemia Stop: 05/07/17 06:21 Last Admin: 11/15/16 16:36 Dose: 30 gm Heparin Sodium (Porcine) (Heparin) 5,000 unit SQ Q8HCO ALEX Stop: 05/20/17 08:46 Last Admin: 11/19/16 06:09 Dose: 5,000 unit Hydralazine HCl (Hydralazine) 10 mg IVP Q6HR PRN PRN Reason: Hypertension Stop: 05/10/17 20:54 Last Admin: 11/19/16 06:09 Dose: 10 mg Dextrose (Dextrose 5%) 1,000 mls @ 100 mls/hr IV CONT PRN PRN Reason: HYPOGLYCEMIA Stop: 05/07/17 06:24 Fentanyl Citrate 1,000 mcg/ (Sodium Chloride) 100 mls @ 5 mls/hr IVC CONT ALEX; 50 MCG/HR PRN Reason: Protocol Stop: 05/19/17 18:01 Last Admin: 11/19/16 06:39 Dose: 100 mcg/hr, 10 mls/hr Midazolam HCl 50 mg/ Sodium (Chloride) 100 mls @ 20 mls/hr IVC CONT ALEX; 10 MG/ HR PRN Reason: Protocol Stop: 05/19/17 18:01 Last Titration: 11/19/16 07:05 Dose: 7 mg/hr, 14 mls/hr Norepinephrine Bitartrate 4 mg (/ Dextrose) 254 mls @ 7.62 mls/hr IVC .CONT ALEX ; 2 MCG/MIN PRN Reason: Protocol Stop: 05/19/17 18:16 Piperacillin Sod/Tazobactam (Sod 3.375 gm/ Dextrose) 100 mls @ 25 mls/hr IVPB Q8HR [facility] PRN Reason: Protocol Stop: 05/20/17 00:01 Last Admin: 11/19/16 09:53 Dose: 25 mls/hr Propofol (Diprivan) 1,000 mg in 100 mls @ 3.309 mls/hr IVC .Q24H ALEX; 5 MCG/KG/ MIN PRN Reason: Protocol Stop: 05/20/17 13:01 Last Titration: 11/19/16 07:05 Dose: 12.69 mcg/kg/min, 8.4 mls/hr Levetiracetam 500 mg/ Sodium (Chloride) 105 mls @ 400 mls/hr IVPB BID [facility] Stop: 05/20/17 21:01 Last Admin: 11/19/16 09:52 Dose: 400 mls/hr Insulin Detemir (Levemir) 20 unit SQ BID [facility] Stop: 05/19/17 21:01 Last Admin: 11/19/16 09:52 Dose: 20 unit Insulin Human Lispro (Humalog) 0 units SQ Q4HR [facility] PRN Reason: Protocol Stop: 05/20/17 00:01 Last Admin: 11/19/16 09:55 Dose: 4 units Methylprednisolone (Solu-Medrol) 60 mg IVP Q6HR [facility] Stop: 05/18/17 06:01 Last Admin: 11/19/16 06:09 Dose: 60 mg Naloxone HCl (Narcan) 0.4 mg IVP Q2MIN PRN PRN Reason: Opioid Reversal Stop: 05/07/17 00:41 Nicotine (Nicoderm) 21 mg TD DAILY [facility] PRN Reason: Protocol Stop: 05/07/17 09:01 Last Admin: 11/19/16 09:53 Dose: 21 mg Ondansetron HCl (Zofran) 4 mg IVP Q8HR PRN PRN Reason: Nausea And Vomiting Stop: 05/07/17 00:41 Pantoprazole Sodium (Protonix) 40 mg IVP DAILY [facility] Stop: 05/19/17 20:01 Last Admin: 11/19/16 09:53 Dose: 40 mg Rosuvastatin Calcium (Crestor) 40 mg PO DAILY [facility] Stop: 05/08/17 09:01 Last Admin: 11/19/16 09:52 Dose: 40 mg Vancomycin HCl (Vancocin) 0 each IVPB RPHPROT PRN PRN Reason: PULSE DOSE Stop: 05/20/17 02:19 - Imaging and Cardiology Chest Xray: report reviewed Echo: report reviewed - EKG Interpretation EKG results cardiology: other (24 hour tele AVG HR 60, SR, no significant pauses or arrhythmias.) Consult Discharge Plan - Plan Referrals: Luba Dorantes, PAC [Physician Gasateria Attendant] - 11/20/16 11:40 am
[2016-11-19] MEDS ORDERED: 0.9 % Sodium Chloride 250 ML IV PRN (11:26)
[2016-11-19] MEDS ORDERED: 0.9 % Sodium Chloride 1,000 ML PRIME SCH (11:30)
[2016-11-19] MEDS: amLODIPine 5 MG TABLET PO SCH (11:36)
[2016-11-19] MEDS: Ampicillin/Sulbactam 3,000 MG in 0.9 % Sodium Chloride Mini Bag 100 ML IVPB SCH ×2 (11:36→23:06)
--- NOTE | 2016-11-19 12:08 | Pulmonology Progress Note ---
<Frankie Baker - Last Filed: 11/19/16 16:49> Date of Encounter: 11/19/16 Time of Encounter: 08:30 Assessment and Plan (1) Acute respiratory failure Current Visit: Yes Status: Acute Acute respiratory failure secondary to cardiac arrest. Patient continues to require mechanical ventilator assistance for respiratory support. ABG this morning was 7.51, PCO2 of 29, PO2 1:15, bicarbonate 23.1, ventilator was adjusted reducing respiratory rate. Repeat ABG demonstrated pH 7.38, PCO2 of 41 , PO2 128, bicarbonate 24.3. Plan: - Continue ventilator assistance. - Repeat a.m. labs, including ABG, chest x-ray for endotracheal tube placement. - Wean sedation as tolerated. Qualifiers: Respiratory failure complication: unspecified whether with hypoxia or hypercapnia Qualified Code(s): J96.00 - Acute respiratory failure, unspecified whether with hypoxia or hypercapnia (2) Cardiac arrest Current Visit: Yes Status: Acute Patient suffered sudden PEA cardiac arrest around 5 PM 11/17/2016. Underwent ACLS for roughly 10 minutes before regaining pulse. He was intubated and transferred to the ICU. Possible contributing factors include significant fluid overload, elevated phosphorus, elevated BUN worsening renal function. Troponin on 11/16/2069 was 0.00, troponins on 11/17/2016 went from 0.02-0.24. Patient remains intubated and sedated. Post cardiac arrest patient demonstrated seizure activity was seen by neurology, EEG was performed which did not demonstrate any seizure activity. Plan: - Continue monitoring neurologic status. - Wean sedation as tolerated. - Continue to monitor electrolytes and replace as necessary. - Continue ICU care. (3) Diastolic CHF Current Visit: Yes Status: Acute History of diastolic heart failure, echocardiogram demonstrates LVEF 60-65% normal left ventricular size and systolic function. Indeterminant diastolic function. RV appears mildly dilated with normal function. Mild mitral regurgitation. Mild tricuspid regurgitation. Probable mild pulmonary hypertension. Patient physical examination demonstrates fluid overload with 2+ pitting lower extremity edema. Chest x-ray demonstrates diffuse pulmonary edema. Patient's fluid balance is +13 L. Post PA arrest. Nephrology is on board and plans to hemodialyze the patient Saturday, Saturday, Saturday to remove excess fluid in the setting of worsening renal function. Bilateral lower extremity Dopplers demonstrated normal superficial and deep examination. Plan: - Strict ins and outs. - Hemodialysis catheter placed 11/19/2016. Nephrology to perform dialysis. Qualifiers: Qualified Code(s): I50.30 - Unspecified diastolic (congestive) heart failure (4) Seizure Current Visit: Yes Status: Acute Seizure activity secondary to cardiac arrest and 10 minutes of ACLS CPR. Neurology is following the patient. EEG was negative for seizure activity. Continue Keppra 500 mg IV twice a day, continue with diazepam IV. Neurology will continue to follow the patient. Continue seizure precautions. Head CT performed 11/18/2016 demonstrates no acute intracranial abnormalities. Unchanged remote left basal ganglion lacunar infarct. Plan: - Continue Keppra and propofol. - Appreciate neurology's recommendations. (5) Acute kidney injury superimposed on chronic kidney disease Current Visit: Yes Status: Acute Patient has underlining chronic kidney disease with a creatinine of 3.07 down from 3.54 yesterday. He is significantly fluid overloaded and demonstrates anasarca on physical examination. Patient receiving Lasix 40mg BID with appropriate urinary output. BUN 108 which is improved from yesterday but has shown steady increase since admission. Possibly secondary to Diastolic heart failure exacerbation. Renal function demonstrated improvement with diuresis. Plan: - Continue hemodialysis as planned. - Continue Lasix 40 mg twice a day. - Monitor renal function with daily labs. -Avoid nephrotoxic medications and renally dose antibiotics. 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 Right foot wound culture demonstrates Proteus vulgaris, enterococcus bacillus with sensitivities to current antibiotics. Left foot ulcer is superficial dressing changes are done at bedside per wound care. Plan: - Started Unasyn 3000 mg every 12 hours. Discontinue vancomycin and Zosyn. -Continue wound care and wound VAC per wound care Management (7) Osteomyelitis of foot, right, acute Current Visit: Yes Status: Acute s/p incision and drainage to bone cortex for osteomyelitis #5 metatarsal right, open amputation of toe #5 with metatarsal #5 right foot, application wound VAC on 11/06/16. Will require 6 weeks antibiotic coverage. Continue current antibiotics as listed above. (8) Diabetes mellitus Current Visit: Yes Status: Acute Insulin dependent diabetic on Januvia, Lantus 80 units subcutaneous twice a day , at home. Patient is currently intubated and NPO. Continue every 6 hour glucose checks and sliding scale insulin. Glucoses stable. Plan: - Continue inpatient sliding scale insulin. - We will resume ACHS checks and home insulin when patient is awake and tolerating PO intake appropriately. Qualifiers: Qualified Code(s): E11.9 - Type 2 diabetes mellitus without complications (9) DVT prophylaxis Current Visit: Yes Status: Acute Continue heparin 5000 units subcutaneous every 8 hours. (10) Hypertension Current Visit: Yes Status: Chronic Patient has a HTN with elevated blood pressures throughout inpatient stay. Inpatient blood pressure medications include Norvasc 5 mg by mouth daily, Coreg 25 mg by mouth twice a day, hydralazine 10 mg IVP every 6 hours when necessary. Plan: - Continue monitoring blood pressures. If SBP continues to stay greater than 160 increase Norvasc to 10 mg by mouth daily. - Continue monitoring blood pressure. Qualifiers: Hypertension type: essential hypertension Qualified Code(s): I10 - Essential (primary) hypertension Subjective Principal diagnosis: Foot infection Interval history: Mr. Regalado has been seen and evaluated at patient bedside this morning. He is intubated and sedated and in no acute distress at this time. No concerns at this time for nursing. Responds to touch. Patient failed CPAP trial and sedation was turned back on the morning of 11/19/2016. Objective PUL Vital signs: Last Vital Signs Temp 97.3 F L 11/19/16 12:00 Pulse 54 11/19/16 12:00 Resp 13 11/19/16 12:00 BP 162/82 11/19/16 12:00 Pulse Ox 100 11/19/16 12:00 Gen: Well-developed well-nourished, intubated and sedated. HEENT: Normocephalic atraumatic, pupils are symmetric but not reactive to light under sedation. Oral mucosa is moist endotracheal tube and NG tube in place. Neck is supple trachea is midline. No crepitus or lymphadenopathy appreciated on palpation. Chest: Symmetric bilateral correlating with respiratory effort. Respiratory effort correlated with mechanical ventilation. Cardiac: Bradycardic with positive S1-S2. Upper extremity capillary refill is 2 + bilateral. Diminished bilateral posterior tibial pulses. Feet are warm to touch. Respiratory: Diffuse crackles appreciated all lung acharya. Abdomen: Distended, patient responds with arm movements and opening eyes with palpation of the abdomen. Hypoactive bowel sounds. Extremities patient has diffuse 2+ pitting edema in all 4 extremities. Right foot is wrapped with wound VAC on lateral aspect. Fifth right LE digit amputation with wound VAC. Third right LE digit previously amputated. Left diabetic foot ulcer wrapped without any signs of surrounding cellulitis. Distal S2 tibial and dorsal pedal pulses very poor. Distal toes are pale in color with poor toenail care. Skin: Diffuse anasarca Ventilator Settings Ventilator Settings: Ventilator Settings, Last 8 Hours Ventilator Mode VC+ Ventilator Mode VC+ Ventilator Mode VC+ Ventilator Mode VC+ Ventilator Mode VC+ Ventilator Mode VC+ Ventilator Mode A/C Ventilator Mode A/C Ventilator Mode A/C Ventilator Mode A/C Ventilator Mode A/C Ventilator Tidal Volume 500 Setting Ventilator Tidal Volume 500 Setting Ventilator Tidal Volume 500 Setting Ventilator Tidal Volume 500 Setting Ventilator Tidal Volume 500 Setting Ventilator Tidal Volume 500 Setting Ventilator Tidal Volume 500 Setting Ventilator Tidal Volume 500 Setting Ventilator Tidal Volume 500 Setting Ventilator Tidal Volume 500 Setting Ventilator Tidal Volume 500 Setting Ventilator Respiratory Rate 12 Setting Ventilator Respiratory Rate 12 Setting Ventilator Respiratory Rate 12 Setting Ventilator Respiratory Rate 12 Setting Ventilator Respiratory Rate 12 Setting Ventilator Respiratory Rate 20 Setting Ventilator Respiratory Rate 20 Setting Ventilator Respiratory Rate 20 Setting Ventilator Respiratory Rate 20 Setting Ventilator Respiratory Rate 20 Setting Actual Respiratory Rate 13 Actual Respiratory Rate 14 Actual Respiratory Rate 16 Actual Respiratory Rate 15 Actual Respiratory Rate 14 Actual Respiratory Rate 20 Actual Respiratory Rate 24 Actual Respiratory Rate 20 Actual Respiratory Rate 20 Actual Respiratory Rate 20 Positive End Expiratory 5 Pressure Positive End Expiratory 5 Pressure Positive End Expiratory 5 Pressure Positive End Expiratory 5 Pressure Positive End Expiratory 5 Pressure Positive End Expiratory 5 Pressure Positive End Expiratory 5 Pressure Positive End Expiratory 5 Pressure Positive End Expiratory 5 Pressure Positive End Expiratory 5 Pressure Positive End Expiratory 5 Pressure Peak Inspiratory Airway 32 Pressure Peak Inspiratory Airway 28 Pressure Peak Inspiratory Airway 32 Pressure Peak Inspiratory Airway 25 Pressure Peak Inspiratory Airway 16 Pressure Peak Inspiratory Airway 25 Pressure Peak Inspiratory Airway 25 Pressure Peak Inspiratory Airway 28 Pressure Results - Laboratory Findings CBC and BMP: 11/19/16 03:18 11/19/16 03:18 ABG ABG pH 7.38 pH Units (7.32-7.45) D 11/19/16 09:28 ABG pCO2 41 mmHg (35-45) 11/19/16 09:28 ABG pO2 128 mmHg (85-104) H 11/19/16 09:28 ABG O2 Saturation 99 % (95-98) H 11/19/16 09:28 PT/INR, D-dimer PT 12.2 Seconds (9.4-12.1) H 11/19/16 03:18 Abnormal lab findings: Abnormal lab results WBC 11.4 K/mcL (4.3-11.1) H 11/19/16 03:18 RBC 2.91 M/mcL (4.19-5.50) L 11/19/16 03:18 Hgb 8.1 g/dL (12.9-16.9) L 11/19/16 03:18 Hct 25.1 % (37.5-50.1) L 11/19/16 03:18 MCH 27.8 pg (28.0-33.3) L 11/19/16 03:18 RDW 16.5 % (11.5-14.5) H 11/19/16 03:18 Metamyelocytes % 4.0 % (0) H 11/13/16 03:25 Myelocytes % 4.0 % (0) H 11/14/16 03:45 Neutrophils # 10.6 K/mcL (1.6-8.9) H 11/19/16 03:18 Lymphocytes # 0.3 K/mcL (0.6-4.6) L 11/19/16 03:18 Nucleated RBCs/100 WBC 0.2 /100 WBC (0) H 11/18/16 04:18 Reactive Lymphocytes Present (Not Present) A 11/13/16 03:25 Toxic Vacuolation Present (Not Present) A 11/13/16 03:25 Platelet Estimate Marked Decrease (Normal) L 11/14/16 03:45 Polychromasia 1+ (Not Present) A 11/12/16 05:00 ESR 66 mm/hr (0-10) H 11/12/16 08:30 PT 12.2 Seconds (9.4-12.1) H 11/19/16 03:18 APTT 25.5 Seconds (26.0-36.0) L 11/17/16 21:25 ABG pO2 128 mmHg (85-104) H 11/19/16 09:28 ABG O2 Saturation 99 % (95-98) H 11/19/16 09:28 BUN 108 mg/dL (8-26) H 11/19/16 03:18 Creatinine 3.07 mg/dL (0.72-1.25) H 11/19/16 03:18 Est GFR ( Amer) 25 (> 60) L 11/19/16 03:18 Est GFR (Non-Af Amer) 21 (> 60) L 11/19/16 03:18 BUN/Creatinine Ratio 35 (6-26) H 11/19/16 03:18 Glucose 151 mg/dL (70-99) H 11/19/16 03:18 POC Glucose 177 (58-89) H 11/19/16 11:30 Calculated Osmolality 327 (280-300) H 11/19/16 03:18 Lactic Acid 2.6 mmol/L (0.5-2.2) H 11/18/16 13:20 Uric Acid 8.4 mg/dL (3.5-7.2) H 11/12/16 05:03 Calcium 8.0 mg/dL (8.6-10.8) L 11/19/16 03:18 Ionized Calcium 1.01 mmol/L (1.15-1.35) L 11/19/16 03:18 Phosphorus 9.3 mg/dL (2.3-4.7) H 11/18/16 13:25 Troponin I 0.24 ng/mL (0-0.03) H* 11/18/16 04:18 C-Reactive Protein 13 mg/L (Less than 5) H 11/12/16 08:30 B-Natriuretic Peptide 201 pg/mL (0-100) H 11/16/16 Unknown Serum Total Protein 5.7 g/dL (6.0-8.3) L 11/18/16 04:18 Albumin 2.7 g/dL (3.5-5.0) L 11/18/16 13:25 Albumin/Globulin Ratio 0.8 (1.1-2.2) L 11/18/16 04:18 Urine Protein 100 mg/dL (Neg-Trace) H 11/12/16 15:20 Urine Glucose (UA) 250 mg/dL (Normal) H 11/12/16 15:20 Urine Microscopic RBC 3-5 per hpf (0-3) H 11/12/16 15:20 Ur Squamous Epith Cells Moderate per lpf (None-Few) H 11/12/16 15:20 - Clinical Findings Intake & Output: Intake & Output 11/18/16 11/19/16 11/19/16 23:59 07:59 15:59 Intake Total 453 / 453 696 / 696 142 / 142 Output Total 1650 / 1650 1950 / 1950 Balance -1197 / -1197 -1254 / -1254 142 / 142 Consult Discharge Plan - Plan Referrals: Luba Dorantes, PAC [Physician Billing Typist] - 11/20/16 11:40 am <Ariana Hawthorne - Last Filed: 11/19/16 17:48> Objective PUL Vital signs: Last Vital Signs Temp 97.3 F L 11/19/16 15:30 Pulse 54 11/19/16 16:00 Resp 15 11/19/16 17:04 BP 169/84 11/19/16 17:04 Pulse Ox 100 11/19/16 17:04 Ventilator Settings Ventilator Settings: Ventilator Settings, Last 8 Hours Ventilator Mode VC+ Ventilator Mode VC+ Ventilator Mode VC+ Ventilator Mode VC+ Ventilator Mode VC+ Ventilator Mode VC+ Ventilator Mode VC+ Ventilator Mode VC+ Ventilator Mode VC+ Ventilator Tidal Volume 500 Setting Ventilator Tidal Volume 500 Setting Ventilator Tidal Volume 500 Setting Ventilator Tidal Volume 500 Setting Ventilator Tidal Volume 500 Setting Ventilator Tidal Volume 500 Setting Ventilator Tidal Volume 500 Setting Ventilator Tidal Volume 500 Setting Ventilator Tidal Volume 500 Setting Ventilator Respiratory Rate 12 Setting Ventilator Respiratory Rate 12 Setting Ventilator Respiratory Rate 12 Setting Ventilator Respiratory Rate 12 Setting Ventilator Respiratory Rate 12 Setting Ventilator Respiratory Rate 12 Setting Ventilator Respiratory Rate 12 Setting Ventilator Respiratory Rate 12 Setting Ventilator Respiratory Rate 12 Setting Actual Respiratory Rate 15 Actual Respiratory Rate 16 Actual Respiratory Rate 16 Actual Respiratory Rate 16 Actual Respiratory Rate 13 Actual Respiratory Rate 13 Actual Respiratory Rate 13 Actual Respiratory Rate 14 Actual Respiratory Rate 16 Positive End Expiratory 5 Pressure Positive End Expiratory 5 Pressure Positive End Expiratory 5 Pressure Positive End Expiratory 5 Pressure Positive End Expiratory 5 Pressure Positive End Expiratory 5 Pressure Positive End Expiratory 5 Pressure Positive End Expiratory 5 Pressure Positive End Expiratory 5 Pressure Peak Inspiratory Airway 28 Pressure Peak Inspiratory Airway 10 Pressure Peak Inspiratory Airway 34 Pressure Peak Inspiratory Airway 18 Pressure Peak Inspiratory Airway 34 Pressure Peak Inspiratory Airway 32 Pressure Peak Inspiratory Airway 30 Pressure Peak Inspiratory Airway 28 Pressure Peak Inspiratory Airway 32 Pressure Results - Laboratory Findings CBC and BMP: 11/19/16 03:18 11/19/16 03:18 ABG ABG pH 7.38 pH Units (7.32-7.45) D 11/19/16 09:28 ABG pCO2 41 mmHg (35-45) 11/19/16 09:28 ABG pO2 128 mmHg (85-104) H 11/19/16 09:28 ABG O2 Saturation 99 % (95-98) H 11/19/16 09:28 PT/INR, D-dimer PT 12.2 Seconds (9.4-12.1) H 11/19/16 03:18 Abnormal lab findings: Abnormal lab results WBC 11.4 K/mcL (4.3-11.1) H 11/19/16 03:18 RBC 2.91 M/mcL (4.19-5.50) L 11/19/16 03:18 Hgb 8.1 g/dL (12.9-16.9) L 11/19/16 03:18 Hct 25.1 % (37.5-50.1) L 11/19/16 03:18 MCH 27.8 pg (28.0-33.3) L 11/19/16 03:18 RDW 16.5 % (11.5-14.5) H 11/19/16 03:18 Metamyelocytes % 4.0 % (0) H 11/13/16 03:25 Myelocytes % 4.0 % (0) H 11/14/16 03:45 Neutrophils # 10.6 K/mcL (1.6-8.9) H 11/19/16 03:18 Lymphocytes # 0.3 K/mcL (0.6-4.6) L 11/19/16 03:18 Nucleated RBCs/100 WBC 0.2 /100 WBC (0) H 11/18/16 04:18 Reactive Lymphocytes Present (Not Present) A 11/13/16 03:25 Toxic Vacuolation Present (Not Present) A 11/13/16 03:25 Platelet Estimate Marked Decrease (Normal) L 11/14/16 03:45 Polychromasia 1+ (Not Present) A 11/12/16 05:00 ESR 66 mm/hr (0-10) H 11/12/16 08:30 PT 12.2 Seconds (9.4-12.1) H 11/19/16 03:18 APTT 25.5 Seconds (26.0-36.0) L 11/17/16 21:25 ABG pO2 128 mmHg (85-104) H 11/19/16 09:28 ABG O2 Saturation 99 % (95-98) H 11/19/16 09:28 BUN 108 mg/dL (8-26) H 11/19/16 03:18 Creatinine 3.07 mg/dL (0.72-1.25) H 11/19/16 03:18 Est GFR ( Amer) 25 (> 60) L 11/19/16 03:18 Est GFR (Non-Af Amer) 21 (> 60) L 11/19/16 03:18 BUN/Creatinine Ratio 35 (6-26) H 11/19/16 03:18 Glucose 151 mg/dL (70-99) H 11/19/16 03:18 POC Glucose 135 (58-89) H 11/19/16 15:24 Calculated Osmolality 327 (280-300) H 11/19/16 03:18 Lactic Acid 2.6 mmol/L (0.5-2.2) H 11/18/16 13:20 Uric Acid 8.4 mg/dL (3.5-7.2) H 11/12/16 05:03 Calcium 8.0 mg/dL (8.6-10.8) L 11/19/16 03:18 Ionized Calcium 1.01 mmol/L (1.15-1.35) L 11/19/16 03:18 Phosphorus 7.8 mg/dL (2.3-4.7) H 11/19/16 12:25 Troponin I 0.24 ng/mL (0-0.03) H* 11/18/16 04:18 C-Reactive Protein 13 mg/L (Less than 5) H 11/12/16 08:30 B-Natriuretic Peptide 201 pg/mL (0-100) H 11/16/16 Unknown Serum Total Protein 5.7 g/dL (6.0-8.3) L 11/18/16 04:18 Albumin 2.7 g/dL (3.5-5.0) L 11/18/16 13:25 Albumin/Globulin Ratio 0.8 (1.1-2.2) L 11/18/16 04:18 Urine Protein 100 mg/dL (Neg-Trace) H 11/12/16 15:20 Urine Glucose (UA) 250 mg/dL (Normal) H 11/12/16 15:20 Urine Microscopic RBC 3-5 per hpf (0-3) H 11/12/16 15:20 Ur Squamous Epith Cells Moderate per lpf (None-Few) H 11/12/16 15:20 - Clinical Findings Intake & Output: Intake & Output 11/19/16 11/19/16 11/19/16 07:59 15:59 23:59 Intake Total 696 / 696 359 / 359 100 / 100 Output Total 1950 / 1950 1800 / 1800 Balance -1254 / -1254 -1441 / -1441 100 / 100 - Attending Attestation I examined this patient and my medical decision-making was reviewed with the TREATMENT MANAGER/PA/Advanced Practice Nurse/Resident Physician. I agree with the documented findings, disposition and treatment plan as described except to the extent set forth below. Patient seen and examined. Labs, radiology, chart personally reviewed. Agree with resident's history and physical, assessment, plan with following comments: GLASSWARE MAKER DEMONSTRATOR: Patient does not follows commands, patient had abnormal movements which I suspect could be seizure activities and neurologist following up. We will keep patient on sedation due to that and also for the vent synchrony. Pulmonary: Acceptable oxygenation and ventilation. Change his vent setting with improvement in his ABG subsequently. There is no plan for extubation at this time. Cardiovascular: Relatively stable GI: Nutrition per dietary and GI prophylaxis per routine Heme: DVT prophylaxis per routine ID: Monitor for evidence of infection such as leukocytosis. Renal; urine out put and renal funtion reviewed. Discussed with the fleet administrative assistant and plan for dialysis Endorcine: blood glucose is monitored Lines: all lines checked and no evidence of infections Skin: skin care to prevent pressure ulcers per nursing routine care Discussed with the family at the bedside and they want to continue until end of this week. I spent 35 min of Critical Care time with this patient. It involved decision making of high complexity to assess, manipulate, and support vital organ system failure and/or to prevent further life threatening deterioration of the patient' s condition. The time involved in the performance of separately reportable procedures was not counted toward critical care time.
--- NOTE | 2016-11-19 13:32 | Nephrology Progress Note ---
Date of Encounter: 11/19/16 Time of Encounter: 10:00 - Assessment and Plan (1) Acute respiratory failure Current Visit: Yes Status: Acute s/p PEA arrest, Vent settings per primary team Ok continue using lasix intermittently for pulm edema but will also start HD with UF for 2 hrs today with goal of 2kg in addition to UOP which has been good at 3liters in the past 24hrs but still very positive by at least 10liters Limit obligate fluids if possible Qualifiers: Respiratory failure complication: unspecified whether with hypoxia or hypercapnia Qualified Code(s): J96.00 - Acute respiratory failure, unspecified whether with hypoxia or hypercapnia (2) Acute kidney injury superimposed on chronic kidney disease Current Visit: Yes Status: Acute SCR slightly better at 3.07, GFR 19. Family agrees to short term HD, will start today for clearance and fluid removal UOP very good Lytes stable Avoid nephrotoxins if possible Prognosis guarded (3) Anemia Current Visit: Yes Status: Acute Hgb stable at 8.1. Transfusion paramenters per primary team Qualifiers: Anemia type: other cause Other causes of anemia: chronic disease, kidney Qualified Code(s): N18.9 - Chronic kidney disease, unspecified; D63.1 - Anemia in chronic kidney disease (4) CKD (chronic kidney disease) stage 3, GFR 30-59 ml/min Current Visit: Yes Status: Chronic Baseline around 30-40s but has been fluctuating in the past 3 weeks (5) Hypertension Current Visit: Yes Status: Chronic BP improving arounf 120-150s systolic, continue current regimen Await the rest of secondary workup: aldosterone and cortisol WNL Renin and metanephrins still pending Qualifiers: Hypertension type: essential hypertension Qualified Code(s): I10 - Essential (primary) hypertension (6) Hyperkalemia Current Visit: Yes Status: Resolved resolved Subjective Principal diagnosis: Foot infection Interval history: Pt seen and examined with interim events noted. Evaluated with EEg for possible seizure activity today. Failed cPAP trial and still visibly very fluid overloaded despite great response to diuretics. Objective - Vital Signs Vital signs: Vital Signs Temp Pulse Resp BP Pulse Ox 11/19/16 13:00 56 13 161/80 99 11/19/16 12:18 97.3 F L 11/19/16 12:00 97.3 F L 54 13 162/82 100 11/19/16 11:00 56 14 159/83 99 11/19/16 10:00 59 16 164/86 99 11/19/16 09:00 60 16 166/84 99 11/19/16 08:00 61 15 149/77 97 11/19/16 07:00 97.4 F L 65 20 145/72 96 11/19/16 06:55 24 164/75 99 11/19/16 06:41 58 20 164/75 98 11/19/16 06:35 20 164/75 98 11/19/16 06:00 64 20 180/84 99 11/19/16 04:42 59 20 171/82 99 11/19/16 03:54 56 20 161/77 100 11/19/16 03:52 20 161/77 99 11/19/16 03:14 57 11/19/16 03:04 96.3 F L 58 20 160/77 98 11/19/16 01:50 20 153/75 98 11/19/16 01:42 59 20 153/75 98 11/19/16 00:51 60 20 152/75 99 11/19/16 00:00 57 20 151/75 99 11/18/16 23:54 20 159/81 99 11/18/16 23:37 96.4 F L 11/18/16 23:16 60 11/18/16 23:06 60 20 158/80 99 11/18/16 21:52 20 167/84 99 11/18/16 21:43 59 20 167/84 99 11/18/16 20:46 60 20 157/77 99 11/18/16 20:00 20 146/73 98 11/18/16 19:49 97.0 F L 60 20 148/73 98 11/18/16 19:07 97.0 F L 11/18/16 19:00 60 20 145/75 98 11/18/16 18:00 62 20 137/66 97 11/18/16 17:14 20 137/67 98 11/18/16 17:00 63 20 137/67 98 11/18/16 16:00 62 20 136/65 96 11/18/16 15:53 96.3 F L 11/18/16 15:27 20 136/65 96 11/18/16 15:00 62 20 139/66 94 L 11/18/16 14:00 63 18 145/72 100 Intake and Output 11/18/16 11/19/16 11/19/16 23:59 07:59 15:59 Intake Total 453 / 453 696 / 696 142 / 142 Output Total 1650 / 1650 1949 / 1949 900 / 900 Balance -1197 / -1197 -1254 / -1254 -758 / -758 Intake: IV Fluids 453 / 453 696 / 696 142 / 142 FentaNYL (PF) 1,000 MCG 100 / 100 100 / 100 In 0.9 % Sodium Chloride 80 ML @ 50 MCG/HR 5 mls/ hr IVC CONT ALEX Rx#: [id number] Versed 50 MG In 0.9 % 76 / 76 183 / 183 Sodium Chloride 90 ML @ 10 MG/HR 20 mls/hr IVC CONT ALEX Rx#:[id number] Diprivan 1,000 mg In 100 72 / 72 63 / 63 37 / 37 ml @ 5 MCG/KG/MIN 3.309 mls/hr IVC .Q24H ALEX Rx#: [id number] Keppra 500 MG In 0.9 % 105 / 105 105 / 105 Sodium Chloride 100 ML @ 400 mls/hr IVPB BID ALEX Rx#:[id number] Zosyn 3.375 GM In 100 / 100 100 / 100 Dextrose 5% (Minibag+) 100 ML 100 ML @ 25 mls/hr IVPB Q8HR ALEX Rx#: [id number] Vancocin 1,500 MG In 250 / 250 Dextrose 5% 250 ML @ 166. 667 mls/hr IVPB 0300 ONE Rx#:[id number] Oral 0 / 0 Output: Catheter 1650 / 1650 1949 / 1949 900 / 900 Wound Drainage 0 / 0 Right Lateral Foot 0 / 0 Other: Stool Size Moderate Stool Consistency soft Stool Color Brown Blood Glucose* 152 165 177 - General Appearance General appearance: Present: chronically ill, sedated on ventilator, intubated EENT: Present: ATNC, PERRL Neck: Present: no JVD, supple Respiratory: Present: course breath sounds Cardiology: Present: edema (LE/UE bilat as ell as scrotal), normal S1, normal S2 Gastrointestinal: Present: no tenderness, no guarding, obese Integumentary: Present: warm and dry Additional Comments: intubated, not following commands Musculoskeletal: Present: no deformities Additional Comments: intubated - Lab 11/19/16 03:18 11/19/16 03:18 Most recent lab results ABG pH 7.38 pH Units (7.32-7.45) D 11/19/16 09:28 ABG pCO2 41 mmHg (35-45) 11/19/16 09:28 ABG pO2 128 mmHg (85-104) H 11/19/16 09:28 ABG HCO3 24.3 mEQ/L (21-27) 11/19/16 09:28 ABG O2 Saturation 99 % (95-98) H 11/19/16 09:28 Calcium 8.0 mg/dL (8.6-10.8) L 11/19/16 03:18 Phosphorus 9.3 mg/dL (2.3-4.7) H 11/18/16 13:25 Magnesium 2.0 mg/dL (1.6-2.6) 11/19/16 03:18 Urine Creatinine 47 mg/dL 11/12/16 15:20 Urine Sodium 65.0 mEq/L 11/12/16 15:20 Consult Discharge Plan - Plan Referrals: Luba Dorantes, PAC [Physician Newspaper Subscription Solicitor] - 11/20/16 11:40 am
--- NOTE | 2016-11-19 16:12 | Neurology Progress Note ---
Date of Encounter: 11/19/16 Time of Encounter: 16:09 Subjective Principal diagnosis: cerebral hypoxia Interval history: The chart was reviewed and patient was examined. This gentleman is a 61-year- old male, with multiple chronic illnesses who is being seen for neurologic asessment due to coma following respiratory arrest. Apparently he also was felt to have had seizure activity as well , however EEG did not reveal epileptiform activity. He was started on Keppra 500g BID. 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 Objective - Constitutional Vitals: Temp Pulse Resp BP Pulse Ox 97.3 F L 55 16 165/81 99 11/19/16 15:30 11/19/16 14:00 11/19/16 14:00 11/19/16 14:00 11/19/16 14:00 - Neurological Exam Motor Examination: Present: other (no purposeful activity. There is also stimulus-induced myoclonus present.) Posture: Present: decerebrate Reflexes: Biceps: 3+, Brachioradialis: 3+ Mental Status Examination: Present: does not follow commands, no spontaneous eye opening to voice or tactile stimulation Cranial nerve examination: Present: PERRL Additional comments: No purposeful activity is present. patient does display decerebrate posturing with tactile stimulation. He also displays stimulation induced myoclonus, which are both poor prognostic signs. His eyes will spontaneously open but this is not purposeful. No command following. Results - Laboratory Findings CBC and BMP: 11/19/16 03:18 11/19/16 03:18 Abnormal lab findings: Abnormal lab results WBC 11.4 K/mcL (4.3-11.1) H 11/19/16 03:18 RBC 2.91 M/mcL (4.19-5.50) L 11/19/16 03:18 Hgb 8.1 g/dL (12.9-16.9) L 11/19/16 03:18 Hct 25.1 % (37.5-50.1) L 11/19/16 03:18 MCH 27.8 pg (28.0-33.3) L 11/19/16 03:18 RDW 16.5 % (11.5-14.5) H 11/19/16 03:18 Metamyelocytes % 4.0 % (0) H 11/13/16 03:25 Myelocytes % 4.0 % (0) H 11/14/16 03:45 Neutrophils # 10.6 K/mcL (1.6-8.9) H 11/19/16 03:18 Lymphocytes # 0.3 K/mcL (0.6-4.6) L 11/19/16 03:18 Nucleated RBCs/100 WBC 0.2 /100 WBC (0) H 11/18/16 04:18 Reactive Lymphocytes Present (Not Present) A 11/13/16 03:25 Toxic Vacuolation Present (Not Present) A 11/13/16 03:25 Platelet Estimate Marked Decrease (Normal) L 11/14/16 03:45 Polychromasia 1+ (Not Present) A 11/12/16 05:00 ESR 66 mm/hr (0-10) H 11/12/16 08:30 PT 12.2 Seconds (9.4-12.1) H 11/19/16 03:18 APTT 25.5 Seconds (26.0-36.0) L 11/17/16 21:25 ABG pO2 128 mmHg (85-104) H 11/19/16 09:28 ABG O2 Saturation 99 % (95-98) H 11/19/16 09:28 BUN 108 mg/dL (8-26) H 11/19/16 03:18 Creatinine 3.07 mg/dL (0.72-1.25) H 11/19/16 03:18 Est GFR ( Amer) 25 (> 60) L 11/19/16 03:18 Est GFR (Non-Af Amer) 21 (> 60) L 11/19/16 03:18 BUN/Creatinine Ratio 35 (6-26) H 11/19/16 03:18 Glucose 151 mg/dL (70-99) H 11/19/16 03:18 POC Glucose 135 (58-89) H 11/19/16 15:24 Calculated Osmolality 327 (280-300) H 11/19/16 03:18 Lactic Acid 2.6 mmol/L (0.5-2.2) H 11/18/16 13:20 Uric Acid 8.4 mg/dL (3.5-7.2) H 11/12/16 05:03 Calcium 8.0 mg/dL (8.6-10.8) L 11/19/16 03:18 Ionized Calcium 1.01 mmol/L (1.15-1.35) L 11/19/16 03:18 Phosphorus 7.8 mg/dL (2.3-4.7) H 11/19/16 12:25 Troponin I 0.24 ng/mL (0-0.03) H* 11/18/16 04:18 C-Reactive Protein 13 mg/L (Less than 5) H 11/12/16 08:30 B-Natriuretic Peptide 201 pg/mL (0-100) H 11/16/16 Unknown Serum Total Protein 5.7 g/dL (6.0-8.3) L 11/18/16 04:18 Albumin 2.7 g/dL (3.5-5.0) L 11/18/16 13:25 Albumin/Globulin Ratio 0.8 (1.1-2.2) L 11/18/16 04:18 Urine Protein 100 mg/dL (Neg-Trace) H 11/12/16 15:20 Urine Glucose (UA) 250 mg/dL (Normal) H 11/12/16 15:20 Urine Microscopic RBC 3-5 per hpf (0-3) H 11/12/16 15:20 Ur Squamous Epith Cells Moderate per lpf (None-Few) H 11/12/16 15:20 Consult Discharge Plan - Plan Referrals: Luba Dorantes, PAC [Physician Instrument Specialist] - 11/20/16 11:40 am
--- NOTE | 2016-11-19 17:27 | Podiatry Progress Note ---
Date of Encounter: 11/19/16 Time of Encounter: 12:00 - Assessment and Plan (1) Renal failure Current Visit: No Status: Acute 1. Nephrology consulted and following patient. (2) Peripheral vascular disease due to secondary diabetes Current Visit: No Status: Acute 1. ISIDRO of BLE completed on 11/05/16: Right: 0.98 Left: 0.94 (3) Foot ulcer Current Visit: No Status: Chronic 1. Dressing changed to left foot, ulceration is superficial. Dressing changed at bedside. Significant improvement in ulceration to the left foot. No erythema , no pus, no odor, no erythema, no streaking. Scant amount of serous drainage observed to dressing. 2. Wound care orders to include cleansing ulcer of left foot daily with mild soap and water, pat dry, apply dry sterile 4x4 gauze with kerlix. Qualifiers: Qualified Code(s): L97.512 - Non-pressure chronic ulcer of other part of right foot with fat layer exposed (4) Diabetes mellitus with neuropathy Current Visit: Yes Status: Chronic Qualifiers: Qualified Code(s): E11.40 - Type 2 diabetes mellitus with diabetic neuropathy , unspecified; Z79.4 - residential (current) use of insulin (5) Osteomyelitis of foot, right, acute Current Visit: Yes Status: Acute 1. s/p incision and drainage to bone cortex for osteomyelitis #5 metatarsal right, open amputation of toe #5 with metatarsal #5 right foot, application wound VAC on 11/06/16. WBC: 11.4 2. Intraop cultures: Proteus Vulgaris, enterococcus faecalis. 3. Patient will need long-term IV antibiotics x 6 weeks with wound vac changes every -W-. Wound vac: black sponge, connected to 125 mmhg continuous suction. 4. Patient will need a f/u with Dr. Pace in wound care with in one week of discharge from the hospital. Subjective Principal diagnosis: Foot infection Interval history: Patient is s/p incision and drainage to bone cortex for osteomyelitis #5 metatarsal right, open amputation of toe #5 with metatarsal #5 right foot, application wound VAC by Dr. Pace on 11/06/16. Patient went into cardiac arrest over the weekend and is currently in the ICU and intubated. Wound vac intact to the right foot. Objective - Vital Signs Vital Signs: Vital Signs Temp Pulse Resp BP Pulse Ox 11/19/16 16:00 54 16 167/85 100 11/19/16 15:30 97.3 F L 11/19/16 15:00 54 11/19/16 14:00 55 16 165/81 99 11/19/16 13:50 16 163/82 99 11/19/16 13:00 56 13 161/80 99 11/19/16 12:18 97.3 F L 11/19/16 12:00 97.3 F L 54 13 162/82 100 11/19/16 11:56 13 161/81 99 11/19/16 11:00 56 14 159/83 99 11/19/16 10:00 59 16 164/86 99 11/19/16 09:28 14 162/82 99 11/19/16 09:00 60 16 166/84 99 11/19/16 08:00 61 15 149/77 97 11/19/16 07:50 14 145/72 99 11/19/16 07:00 97.4 F L 65 20 145/72 96 11/19/16 06:55 24 164/75 99 11/19/16 06:41 58 20 164/75 98 11/19/16 06:35 20 164/75 98 11/19/16 06:00 64 20 180/84 99 11/19/16 04:42 59 20 171/82 99 11/19/16 03:54 56 20 161/77 100 11/19/16 03:52 20 161/77 99 11/19/16 03:14 57 11/19/16 03:04 96.3 F L 58 20 160/77 98 11/19/16 01:50 20 153/75 98 11/19/16 01:42 59 20 153/75 98 11/19/16 00:51 60 20 152/75 99 11/19/16 00:00 57 20 151/75 99 11/18/16 23:54 20 159/81 99 11/18/16 23:37 96.4 F L 11/18/16 23:16 60 11/18/16 23:06 60 20 158/80 99 11/18/16 21:52 20 167/84 99 11/18/16 21:43 59 20 167/84 99 11/18/16 20:46 60 20 157/77 99 11/18/16 20:00 20 146/73 98 11/18/16 19:49 97.0 F L 60 20 148/73 98 11/18/16 19:07 97.0 F L 11/18/16 19:00 60 20 145/75 98 11/18/16 18:00 62 20 137/66 97 Intake and Output 11/19/16 11/19/16 11/19/16 07:59 15:59 23:59 Intake Total 696 / 696 359 / 359 Output Total 1949 / 1799 Balance -1254 / -1254 -1441 / -1441 Intake: IV Fluids 696 / 696 359 / 359 FentaNYL (PF) 1,000 MCG 100 / 100 In 0.9 % Sodium Chloride 80 ML @ 50 MCG/HR 5 mls/ hr IVC CONT ALEX Rx#: [id number] Versed 50 MG In 0.9 % 183 / 183 17 Sodium Chloride 90 ML @ 10 MG/HR 20 mls/hr IVC CONT ALEX Rx#:[id number] Diprivan 1,000 mg In 100 63 / 63 37 / 37 ml @ 5 MCG/KG/MIN 3.309 mls/hr IVC .Q24H ALEX Rx#: [id number] Unasyn 3,000 MG In 0.9 % 100 / 100 Sodium Chloride (Mini-Bag +) 100 ML @ 200 mls/hr IVPB Q12H ALEX Rx#: [id number] Keppra 500 MG In 0.9 % 105 / 105 Sodium Chloride 100 ML @ 400 mls/hr IVPB BID ALEX Rx#:[id number] Zosyn 3.375 GM In 100 / 100 100 / 100 Dextrose 5% (Minibag+) 100 ML 100 ML @ 25 mls/hr IVPB Q8HR ALEX Rx#: [id number] Vancocin 1,500 MG In 250 / 250 Dextrose 5% 250 ML @ 166. 667 mls/hr IVPB 0300 ONE Rx#:[id number] Output: Catheter 1949 Wound Drainage 0 / 0 0 / 0 Right Lateral Foot 0 / 0 0 / 0 Other: Stool Size Moderate Stool Consistency soft Stool Color Brown Blood Glucose* 165 135 - Exam Exam: General appearance: Intubated and unresponsive. Vascular: Pedal pulses 0/4 DP/PT , No evidence of cyanosis, pallor or rubor, Edema graded at 2+/4, Skin Temperature warm, capillary refill time is immediate to digits. Ulcer: Healing ulceration to the left foot at the fifth metatarsal head plantar aspect measuring 1.8 cm in length x 1.8 cm in width. scant amount of serous drainage observed to dressing. No probe to bone, no odor, no erythema, no streaking, no fluctuance. Post op: Wound VAC intact to right foot with black sponge, 125 mmhg continuous suction. Light periwound erythema, no streaking, no lymphangitis, no purulent drainage, no fluctuance, no warmth. - Lab Result Diagrams: 11/19/16 03:18 11/19/16 03:18 Labs: Abnormal lab results WBC 11.4 K/mcL (4.3-11.1) H 11/19/16 03:18 RBC 2.91 M/mcL (4.19-5.50) L 11/19/16 03:18 Hgb 8.1 g/dL (12.9-16.9) L 11/19/16 03:18 Hct 25.1 % (37.5-50.1) L 11/19/16 03:18 MCH 27.8 pg (28.0-33.3) L 11/19/16 03:18 RDW 16.5 % (11.5-14.5) H 11/19/16 03:18 Metamyelocytes % 4.0 % (0) H 11/13/16 03:25 Myelocytes % 4.0 % (0) H 11/14/16 03:45 Neutrophils # 10.6 K/mcL (1.6-8.9) H 11/19/16 03:18 Lymphocytes # 0.3 K/mcL (0.6-4.6) L 11/19/16 03:18 Nucleated RBCs/100 WBC 0.2 /100 WBC (0) H 11/18/16 04:18 Reactive Lymphocytes Present (Not Present) A 11/13/16 03:25 Toxic Vacuolation Present (Not Present) A 11/13/16 03:25 Platelet Estimate Marked Decrease (Normal) L 11/14/16 03:45 Polychromasia 1+ (Not Present) A 11/12/16 05:00 ESR 66 mm/hr (0-10) H 11/12/16 08:30 PT 12.2 Seconds (9.4-12.1) H 11/19/16 03:18 APTT 25.5 Seconds (26.0-36.0) L 11/17/16 21:25 ABG pO2 128 mmHg (85-104) H 11/19/16 09:28 ABG O2 Saturation 99 % (95-98) H 11/19/16 09:28 BUN 108 mg/dL (8-26) H 11/19/16 03:18 Creatinine 3.07 mg/dL (0.72-1.25) H 11/19/16 03:18 Est GFR ( Amer) 25 (> 60) L 11/19/16 03:18 Est GFR (Non-Af Amer) 21 (> 60) L 11/19/16 03:18 BUN/Creatinine Ratio 35 (6-26) H 11/19/16 03:18 Glucose 151 mg/dL (70-99) H 11/19/16 03:18 POC Glucose 135 (58-89) H 11/19/16 15:24 Calculated Osmolality 327 (280-300) H 11/19/16 03:18 Lactic Acid 2.6 mmol/L (0.5-2.2) H 11/18/16 13:20 Uric Acid 8.4 mg/dL (3.5-7.2) H 11/12/16 05:03 Calcium 8.0 mg/dL (8.6-10.8) L 11/19/16 03:18 Ionized Calcium 1.01 mmol/L (1.15-1.35) L 11/19/16 03:18 Phosphorus 7.8 mg/dL (2.3-4.7) H 11/19/16 12:25 Troponin I 0.24 ng/mL (0-0.03) H* 11/18/16 04:18 C-Reactive Protein 13 mg/L (Less than 5) H 11/12/16 08:30 B-Natriuretic Peptide 201 pg/mL (0-100) H 11/16/16 Unknown Serum Total Protein 5.7 g/dL (6.0-8.3) L 11/18/16 04:18 Albumin 2.7 g/dL (3.5-5.0) L 11/18/16 13:25 Albumin/Globulin Ratio 0.8 (1.1-2.2) L 11/18/16 04:18 Urine Protein 100 mg/dL (Neg-Trace) H 11/12/16 15:20 Urine Glucose (UA) 250 mg/dL (Normal) H 11/12/16 15:20 Urine Microscopic RBC 3-5 per hpf (0-3) H 11/12/16 15:20 Ur Squamous Epith Cells Moderate per lpf (None-Few) H 11/12/16 15:20 Consult Discharge Plan - Plan Referrals: Luba Dorantes, PAC [Physician Geochemistry Teacher] - 11/20/16 11:40 am
--- NOTE | 2016-11-19 17:31 | Event Note ---
<Frankie Baker - Last Filed: 11/19/16 17:23> Date of Encounter: 11/19/16 Time of Encounter: 14:00 Date of procedure: 11/18/16 at 1400. Pre-op diagnosis: Volume overload and DANY/CKD in need of hemodialysis Post-op diagnosis: same Procedure: Consent: Detailed explanation of the procedure, treatment options, risks including but not limited to infection and bleeding, and benefits were explained to the family. A written informed consent was obtained. Technique: A time out was preformed identifying the correct procedure, the correct location with the doctor Marine and nursing staff. The left groin was prepped with 2% chlorhexidine and draped with a full length sterile sheet in the usual fashion. 1% lidocaine was administered subcutaneously for local anesthesia. The left femoral vein was accessed under ultrasound guidance with an 18 gauge thin wall needle. A triple lume lumen 5.5 divehi hemodialysis catheter was inserted via the seldinger technique on the first attempt. Blood was withdrawn from all lumens and flushed with normal saline. The catheter was sutured in place and a sterile dressing was applied over the site prior to removal of drapes. The patient tolerated the procedure well and there were no complications. EBL: 5 cc Complication: None at present Condition: critical Disposition: no change This procedure was performed and successfully completed by by myself and Frankie Baker D.O. PGY [address] Hawthorne who was present for the entirety of this procedure. <Ariana Hawthorne - Last Filed: 11/19/16 17:50> I have personally supervised Dr. Baker placeing HD 15.5 divehi catheter without immediate complication.
[2016-11-20] MEDS: *HR* Heparin 5,000 UNIT/ML VIAL SQ SCH ×4 (00:05→23:31)
[2016-11-20] MEDS: Ipratropium/Albuterol Neb 3 ML IH SCH ×6 (00:42→20:25)
[2016-11-20] MEDS: FentaNYL (PF) 1,000 MCG in 0.9 % Sodium Chloride 80 ML IVC SCH (01:30)
[2016-11-20] MEDS: Insulin LISPRO 300 UNITS/3 ML VIAL SQ SCH ×6 (02:00→20:57)
[2016-11-20 04:09] LABS: Hematocrit 25.9 % (37.5-50.1); Hemoglobin 8.7 g/dL (12.9-16.9); Immature Granulocytes % 1.2 % (0-4); Lymphocytes # 0.3 K/mcL (0.6-4.6); Lymphocytes % 2.7 %; Mean Corpuscular HGB Conc 33.6 g/dL (31.6-35.5); Mean Corpuscular Hemoglobin 28.8 pg (28.0-33.3); Mean Corpuscular Volume 85.8 fL (83.0-100.0); Mean Platelet Volume 9.6 fL (9.4-12.4); Monocytes # 0.5 K/mcL (0.0-1.3); Monocytes % 4.5 %; Neutrophils # 9.5 K/mcL (1.6-8.9); Platelet Count 267 K/mcL (140-400); Red Blood Count 3.02 M/mcL (4.19-5.50); Red Cell Distribution Width 16.5 % (11.5-14.5); Segmented Neutrophils % 91.6 %
[2016-11-20 04:26] LABS: Albumin 2.4 g/dL (3.5-5.0); Albumin/Globulin Ratio 0.6 (1.1-2.2); Bilirubin,Total 0.2 mg/dL (0.2-1.2); Calcium 8.2 mg/dL (8.6-10.8); Globulin 3.7 g/dL (2.4-3.5); Phosphorous 7.1 mg/dL (2.3-4.7); Potassium 3.9 mEq/L (3.5-4.5); Total Protein 6.1 g/dL (6.0-8.3)
[2016-11-20] MEDS: Lacri-Lube 3.5 GM TUBE BOTH EYES SCH ×6 (04:28→23:31)
[2016-11-20] MEDS: FentaNYL (PF) 3,000 MCG in 0.9 % Sodium Chloride 240 ML IVC SCH ×2 (04:51→09:30)
[2016-11-20 05:25] LABS: ABG Base Excess 1.8 mEq/L (-2.0 to 3.0); ABG HCO3 26.6 mEQ/L (21-27); ABG Oxygen Saturation 99 % (95-98); ABG PCO2 42 mmHg (35-45); ABG PH 7.41 pH Units (7.32-7.45); ABG PO2 121 mmHg (85-104); ABG TCO2 27.9 mEq/L (20-26)
[2016-11-20] MEDS: methylPREDNISolone 125 MG/2 ML VIAL IVP SCH ×4 (05:35→23:31)
[2016-11-20 05:40] LABS: Blood Gas FiO2 40 %; Blood Gas PEEP 5 cm H2O; Blood Gas Respiration Rate 12; Blood Gas VT 500 cc
--- NOTE | 2016-11-20 08:24 | Pulmonology Progress Note ---
<Frankie Baker - Last Filed: 11/20/16 17:27> Date of Encounter: 11/20/16 Time of Encounter: 08:22 Assessment and Plan (1) Acute respiratory failure Current Visit: Yes Status: Acute Acute respiratory failure secondary to cardiac arrest. Patient continues to require mechanical ventilator assistance for respiratory support. ABG: pH7.41, pCO2 42,pO2:121, HCO3: 26.6, Failed CPAP trial this morning. CXR demonstrates diffuse pulmonary edema. Lung examination demonstrates improvement in breath sounds, with continued diffuse crackles more so in the lung bases. Required restraints this am as he was attempting to pull ET tube during CPAP trial. Plan: - Continue ventilator assistance. - Repeat a.m. labs, including ABG, chest x-ray for endotracheal tube placement. - Wean sedation as tolerated. Qualifiers: Respiratory failure complication: unspecified whether with hypoxia or hypercapnia Qualified Code(s): J96.00 - Acute respiratory failure, unspecified whether with hypoxia or hypercapnia (2) Cardiac arrest Current Visit: Yes Status: Acute Patient suffered sudden PEA cardiac arrest around 5 PM 11/17/2016. Underwent ACLS for roughly 10 minutes before regaining pulse. He was intubated and transferred to the ICU. Possible contributing factors include significant fluid overload, elevated phosphorus, elevated BUN worsening renal function. Troponin on 11/16/2069 was 0.00, troponins on 11/17/2016 went from 0.02-0.24. Patient remains intubated and sedated. Post cardiac arrest patient demonstrated seizure activity was seen by neurology, EEG was performed which did not demonstrate any seizure activity. 11/20/2016: purposfull movements towards pulling ET tube. Agitated and required continued sedation today. Plan: - Continue monitoring neurologic status. - Wean sedation as tolerated. - Continue to monitor electrolytes and replace as necessary. - Continue ICU care. - Palliative care consulted. (3) Diastolic CHF Current Visit: Yes Status: Acute History of diastolic heart failure, echocardiogram demonstrates LVEF 60-65% normal left ventricular size and systolic function. Indeterminant diastolic function. RV appears mildly dilated with normal function. Mild mitral regurgitation. Mild tricuspid regurgitation. Probable mild pulmonary hypertension. Patient physical examination demonstrates fluid overload with 2+ pitting lower extremity edema. Chest x-ray demonstrates diffuse pulmonary edema. Patient's fluid balance is +13 L. Post PA arrest. Nephrology is on board and plans to hemodialyze the patient Saturday, Saturday, Saturday to remove excess fluid in the setting of worsening renal function. Bilateral lower extremity Dopplers demonstrated normal superficial and deep examination. 11/20/2016: Hemodialysis removed 2600 yesterday. Continues to be volume overloaded, would benefit from another round of dialysis today. Plan: - Strict ins and outs. - Hemodialysis catheter placed 11/19/2016. Nephrology to perform dialysis. Qualifiers: Qualified Code(s): I50.30 - Unspecified diastolic (congestive) heart failure (4) Seizure Current Visit: Yes Status: Acute Seizure activity secondary to cardiac arrest and 10 minutes of ACLS CPR. Neurology is following the patient. EEG was negative for seizure activity. Continue Keppra 500 mg IV twice a day, continue with diazepam IV. Neurology will continue to follow the patient. Continue seizure precautions. Head CT performed 11/18/2016 demonstrates no acute intracranial abnormalities. Unchanged remote left basal ganglion lacunar infarct. Plan: - Continue Keppra and propofol. - Appreciate neurology's recommendations. (5) Acute kidney injury superimposed on chronic kidney disease Current Visit: Yes Status: Acute Patient has underlining chronic kidney disease with diminished renal function and fluid overload. Hemodialysis catheter placed on 11/19/2016 and underwent HD on 11/19/2016 and will have another round today. Plan: - Continue hemodialysis as planned. - Continue Lasix 40 mg twice a day. - Monitor renal function with daily labs. -Avoid nephrotoxic medications and renally dose antibiotics. 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 Right foot wound culture demonstrates Proteus vulgaris, enterococcus bacillus with sensitivities to current antibiotics. Left foot ulcer is superficial dressing changes are done at bedside per wound care. Plan: - Continue Unasyn 3000 mg every 12 hours. Discontinue vancomycin and Zosyn. -Continue wound care and wound VAC per wound care Management (7) Osteomyelitis of foot, right, acute Current Visit: Yes Status: Acute s/p incision and drainage to bone cortex for osteomyelitis #5 metatarsal right, open amputation of toe #5 with metatarsal #5 right foot, application wound VAC on 11/06/16. Will require 6 weeks antibiotic coverage. Continue current antibiotics as listed above. (8) Diabetes mellitus Current Visit: Yes Status: Acute Insulin dependent diabetic on Januvia, Lantus 80 units subcutaneous twice a day , at home. Patient is currently intubated and NPO. Continue every 6 hour glucose checks and sliding scale insulin. Glucoses stable. Glucose range 140- 180. Plan: - Continue inpatient sliding scale insulin. - We will resume ACHS checks and home insulin when patient is awake and tolerating PO intake appropriately. Qualifiers: Qualified Code(s): E11.9 - Type 2 diabetes mellitus without complications (9) Hypertension Current Visit: Yes Status: Chronic Patient has a HTN with elevated blood pressures throughout inpatient stay. Increased Norvasc today to 10mg with continued elevated blood pressures and not on pressure support. Plan: - Continue monitoring blood pressure. Qualifiers: Hypertension type: essential hypertension Qualified Code(s): I10 - Essential (primary) hypertension (10) DVT prophylaxis Current Visit: Yes Status: Acute Continue heparin 5000 units subcutaneous every 8 hours. Subjective Principal diagnosis: Foot infection Interval history: Mr. Regalado has been seen and evaluated at patient bedside this morning. He is intubated and sedated and in no acute distress at this time. He did not tolerate CPAP trial this morning do to agitation. He does demonstrate purposeful movements during weaning of sedation. He tolerated HD yesterday. Objective PUL Vital signs: Last Vital Signs Temp 97.4 F L 11/20/16 04:14 Pulse 60 11/20/16 06:00 Resp 12 11/20/16 06:29 BP 182/90 11/20/16 06:34 Pulse Ox 99 11/20/16 06:29 Gen: Well-developed well-nourished, intubated and sedated. HEENT: Normocephalic atraumatic, pupils are symmetric but not reactive to light under sedation. Oral mucosa is moist endotracheal tube and NG tube in place. Neck is supple trachea is midline. No crepitus or lymphadenopathy appreciated on palpation. Chest: Symmetric bilateral correlating with respiratory effort. Respiratory effort correlated with mechanical ventilation. Cardiac: Bradycardic with grade 2/6 systolic ejection murmur. Upper extremity capillary refill is 2+ bilateral. Diminished bilateral posterior tibial pulses. Feet are warm to touch. Respiratory: Diffuse crackles appreciated all lung acharya, improved compared to yesterday. Abdomen: Distended, patient responds with arm movements and opening eyes with palpation of the abdomen. Hypoactive bowel sounds. Extremities patient has diffuse 2+ pitting edema in all 4 extremities. Right foot is wrapped with wound VAC on lateral aspect. Fifth right LE digit amputation with wound VAC Wound demonstrates bloody drainage and appropriate healing without surrounding erythema or edema. Third right LE digit previously amputated. Left diabetic foot ulcer wrapped without any signs of surrounding cellulitis. Distal S2 tibial and dorsal pedal pulses very poor. Distal toes are pale in color with poor toenail care. Skin: Diffuse anasarca Ventilator Settings Ventilator Settings: Ventilator Settings, Last 8 Hours Ventilator Mode CPAP Ventilator Mode CPAP Ventilator Mode VC+ Ventilator Mode VC+ Ventilator Mode VC+ Ventilator Mode VC+ Ventilator Mode VC+ Ventilator Mode VC+ Ventilator Mode VC+ Ventilator Mode VC+ Ventilator Mode VC+ Ventilator Tidal Volume 500 Setting Ventilator Tidal Volume 500 Setting Ventilator Tidal Volume 500 Setting Ventilator Tidal Volume 500 Setting Ventilator Tidal Volume 500 Setting Ventilator Tidal Volume 500 Setting Ventilator Tidal Volume 500 Setting Ventilator Tidal Volume 500 Setting Ventilator Tidal Volume 500 Setting Ventilator Tidal Volume 500 Setting Ventilator Respiratory Rate 12 Setting Ventilator Respiratory Rate 12 Setting Ventilator Respiratory Rate 12 Setting Ventilator Respiratory Rate 12 Setting Ventilator Respiratory Rate 12 Setting Ventilator Respiratory Rate 12 Setting Ventilator Respiratory Rate 12 Setting Ventilator Respiratory Rate 12 Setting Ventilator Respiratory Rate 12 Setting Ventilator Respiratory Rate 12 Setting Actual Respiratory Rate 14 Actual Respiratory Rate 16 Actual Respiratory Rate 14 Actual Respiratory Rate 14 Actual Respiratory Rate 12 Actual Respiratory Rate 15 Actual Respiratory Rate 15 Actual Respiratory Rate 15 Actual Respiratory Rate 15 Actual Respiratory Rate 13 Positive End Expiratory 5 Pressure Positive End Expiratory 5 Pressure Positive End Expiratory 5 Pressure Positive End Expiratory 5 Pressure Positive End Expiratory 5 Pressure Positive End Expiratory 5 Pressure Positive End Expiratory 5 Pressure Positive End Expiratory 5 Pressure Positive End Expiratory 5 Pressure Positive End Expiratory 5 Pressure Positive End Expiratory 5 Pressure Peak Inspiratory Airway 16 Pressure Peak Inspiratory Airway 18 Pressure Peak Inspiratory Airway 35 Pressure Peak Inspiratory Airway 27 Pressure Peak Inspiratory Airway 38 Pressure Peak Inspiratory Airway 35 Pressure Peak Inspiratory Airway 33 Pressure Peak Inspiratory Airway 37 Pressure Peak Inspiratory Airway 13 Pressure Results - Laboratory Findings CBC and BMP: 11/20/16 04:00 11/20/16 04:00 ABG ABG pH 7.41 pH Units (7.32-7.45) 11/20/16 05:12 ABG pCO2 42 mmHg (35-45) 11/20/16 05:12 ABG pO2 121 mmHg (85-104) H 11/20/16 05:12 ABG O2 Saturation 99 % (95-98) H 11/20/16 05:12 PT/INR, D-dimer PT 12.2 Seconds (9.4-12.1) H 11/19/16 03:18 Abnormal lab findings: Abnormal lab results RBC 3.02 M/mcL (4.19-5.50) L 11/20/16 04:00 Hgb 8.7 g/dL (12.9-16.9) L 11/20/16 04:00 Hct 25.9 % (37.5-50.1) L 11/20/16 04:00 RDW 16.5 % (11.5-14.5) H 11/20/16 04:00 Metamyelocytes % 4.0 % (0) H 11/13/16 03:25 Myelocytes % 4.0 % (0) H 11/14/16 03:45 Neutrophils # 9.5 K/mcL (1.6-8.9) H 11/20/16 04:00 Lymphocytes # 0.3 K/mcL (0.6-4.6) L 11/20/16 04:00 Nucleated RBCs/100 WBC 0.2 /100 WBC (0) H 11/18/16 04:18 Reactive Lymphocytes Present (Not Present) A 11/13/16 03:25 Toxic Vacuolation Present (Not Present) A 11/13/16 03:25 Platelet Estimate Marked Decrease (Normal) L 11/14/16 03:45 Polychromasia 1+ (Not Present) A 11/12/16 05:00 ESR 66 mm/hr (0-10) H 11/12/16 08:30 PT 12.2 Seconds (9.4-12.1) H 11/19/16 03:18 APTT 25.5 Seconds (26.0-36.0) L 11/17/16 21:25 ABG pO2 121 mmHg (85-104) H 11/20/16 05:12 ABG Total CO2 27.9 mEq/L (20-26) H 11/20/16 05:12 ABG O2 Saturation 99 % (95-98) H 11/20/16 05:12 BUN 86 mg/dL (8-26) H 11/20/16 04:00 Creatinine 2.48 mg/dL (0.72-1.25) H 11/20/16 04:00 Est GFR ( Amer) 32 (> 60) L 11/20/16 04:00 Est GFR (Non-Af Amer) 27 (> 60) L 11/20/16 04:00 BUN/Creatinine Ratio 35 (6-26) H 11/20/16 04:00 Glucose 191 mg/dL (70-99) H 11/20/16 04:00 POC Glucose 203 (58-89) H 11/20/16 07:59 Calculated Osmolality 327 (280-300) H 11/20/16 04:00 Lactic Acid 2.6 mmol/L (0.5-2.2) H 11/18/16 13:20 Uric Acid 8.4 mg/dL (3.5-7.2) H 11/12/16 05:03 Calcium 8.2 mg/dL (8.6-10.8) L 11/20/16 04:00 Ionized Calcium 1.01 mmol/L (1.15-1.35) L 11/19/16 03:18 Phosphorus 7.1 mg/dL (2.3-4.7) H 11/20/16 04:00 Troponin I 0.24 ng/mL (0-0.03) H* 11/18/16 04:18 C-Reactive Protein 13 mg/L (Less than 5) H 11/12/16 08:30 B-Natriuretic Peptide 201 pg/mL (0-100) H 11/16/16 Unknown Albumin 2.4 g/dL (3.5-5.0) L 11/20/16 04:00 Globulin 3.7 g/dL (2.4-3.5) H 11/20/16 04:00 Albumin/Globulin Ratio 0.6 (1.1-2.2) L 11/20/16 04:00 Urine Protein 100 mg/dL (Neg-Trace) H 11/12/16 15:20 Urine Glucose (UA) 250 mg/dL (Normal) H 11/12/16 15:20 Urine Microscopic RBC 3-5 per hpf (0-3) H 11/12/16 15:20 Ur Squamous Epith Cells Moderate per lpf (None-Few) H 11/12/16 15:20 - Clinical Findings Intake & Output: Intake & Output 11/19/16 11/20/16 11/20/16 23:59 07:59 15:59 Intake Total 1105 / 1105 963.3 / 963.3 Output Total 3000 / 3000 600 / 600 Balance -1895 / -1895 363.3 / 363.3 Weight 110.3 kg 100.199 kg Consult Discharge Plan - Plan Referrals: Luba Dorantes, PAC [Physician Ham Stripper] - 11/20/16 11:40 am <Ariana Hawthorne - Last Filed: 11/20/16 20:11> Objective PUL Vital signs: Last Vital Signs Temp 98.7 F 11/20/16 16:00 Pulse 63 11/20/16 18:00 Resp 16 11/20/16 18:00 BP 143/68 11/20/16 18:00 Pulse Ox 97 11/20/16 18:00 Ventilator Settings Ventilator Settings: Ventilator Settings, Last 8 Hours Ventilator Mode VC+ Ventilator Mode VC+ Ventilator Mode VC+ Ventilator Mode VC+ Ventilator Mode VC+ Ventilator Mode VC+ Ventilator Mode VC+ Ventilator Tidal Volume 500 Setting Ventilator Tidal Volume 500 Setting Ventilator Tidal Volume 500 Setting Ventilator Tidal Volume 500 Setting Ventilator Tidal Volume 500 Setting Ventilator Tidal Volume 500 Setting Ventilator Tidal Volume 500 Setting Ventilator Respiratory Rate 12 Setting Ventilator Respiratory Rate 12 Setting Ventilator Respiratory Rate 12 Setting Ventilator Respiratory Rate 12 Setting Ventilator Respiratory Rate 12 Setting Ventilator Respiratory Rate 12 Setting Ventilator Respiratory Rate 12 Setting Actual Respiratory Rate 16 Actual Respiratory Rate 18 Actual Respiratory Rate 14 Actual Respiratory Rate 15 Actual Respiratory Rate 15 Actual Respiratory Rate 15 Actual Respiratory Rate 15 Positive End Expiratory 5 Pressure Positive End Expiratory 5 Pressure Positive End Expiratory 5 Pressure Positive End Expiratory 5 Pressure Positive End Expiratory 5 Pressure Positive End Expiratory 5 Pressure Positive End Expiratory 5 Pressure Peak Inspiratory Airway 22 Pressure Peak Inspiratory Airway 22 Pressure Peak Inspiratory Airway 22 Pressure Peak Inspiratory Airway 22 Pressure Peak Inspiratory Airway 22 Pressure Peak Inspiratory Airway 31 Pressure Peak Inspiratory Airway 22 Pressure Results - Laboratory Findings CBC and BMP: 11/20/16 04:00 11/20/16 04:00 ABG ABG pH 7.41 pH Units (7.32-7.45) 11/20/16 05:12 ABG pCO2 42 mmHg (35-45) 11/20/16 05:12 ABG pO2 121 mmHg (85-104) H 11/20/16 05:12 ABG O2 Saturation 99 % (95-98) H 11/20/16 05:12 PT/INR, D-dimer PT 12.2 Seconds (9.4-12.1) H 11/19/16 03:18 Abnormal lab findings: Abnormal lab results RBC 3.02 M/mcL (4.19-5.50) L 11/20/16 04:00 Hgb 8.7 g/dL (12.9-16.9) L 11/20/16 04:00 Hct 25.9 % (37.5-50.1) L 11/20/16 04:00 RDW 16.5 % (11.5-14.5) H 11/20/16 04:00 Metamyelocytes % 4.0 % (0) H 11/13/16 03:25 Myelocytes % 4.0 % (0) H 11/14/16 03:45 Neutrophils # 9.5 K/mcL (1.6-8.9) H 11/20/16 04:00 Lymphocytes # 0.3 K/mcL (0.6-4.6) L 11/20/16 04:00 Nucleated RBCs/100 WBC 0.2 /100 WBC (0) H 11/18/16 04:18 Reactive Lymphocytes Present (Not Present) A 11/13/16 03:25 Toxic Vacuolation Present (Not Present) A 11/13/16 03:25 Platelet Estimate Marked Decrease (Normal) L 11/14/16 03:45 Polychromasia 1+ (Not Present) A 11/12/16 05:00 ESR 66 mm/hr (0-10) H 11/12/16 08:30 PT 12.2 Seconds (9.4-12.1) H 11/19/16 03:18 APTT 25.5 Seconds (26.0-36.0) L 11/17/16 21:25 ABG pO2 121 mmHg (85-104) H 11/20/16 05:12 ABG Total CO2 27.9 mEq/L (20-26) H 11/20/16 05:12 ABG O2 Saturation 99 % (95-98) H 11/20/16 05:12 BUN 86 mg/dL (8-26) H 11/20/16 04:00 Creatinine 2.48 mg/dL (0.72-1.25) H 11/20/16 04:00 Est GFR ( Amer) 32 (> 60) L 11/20/16 04:00 Est GFR (Non-Af Amer) 27 (> 60) L 11/20/16 04:00 BUN/Creatinine Ratio 35 (6-26) H 11/20/16 04:00 Glucose 191 mg/dL (70-99) H 11/20/16 04:00 POC Glucose 244 (58-89) H 11/20/16 19:58 Calculated Osmolality 327 (280-300) H 11/20/16 04:00 Lactic Acid 2.6 mmol/L (0.5-2.2) H 11/18/16 13:20 Uric Acid 8.4 mg/dL (3.5-7.2) H 11/12/16 05:03 Calcium 8.2 mg/dL (8.6-10.8) L 11/20/16 04:00 Ionized Calcium 1.01 mmol/L (1.15-1.35) L 11/19/16 03:18 Phosphorus 7.1 mg/dL (2.3-4.7) H 11/20/16 04:00 Troponin I 0.24 ng/mL (0-0.03) H* 11/18/16 04:18 C-Reactive Protein 13 mg/L (Less than 5) H 11/12/16 08:30 B-Natriuretic Peptide 201 pg/mL (0-100) H 11/16/16 Unknown Albumin 2.4 g/dL (3.5-5.0) L 11/20/16 04:00 Globulin 3.7 g/dL (2.4-3.5) H 11/20/16 04:00 Albumin/Globulin Ratio 0.6 (1.1-2.2) L 11/20/16 04:00 Urine Protein 100 mg/dL (Neg-Trace) H 11/12/16 15:20 Urine Glucose (UA) 250 mg/dL (Normal) H 11/12/16 15:20 Urine Microscopic RBC 3-5 per hpf (0-3) H 11/12/16 15:20 Ur Squamous Epith Cells Moderate per lpf (None-Few) H 11/12/16 15:20 - Clinical Findings Intake & Output: Intake & Output 11/20/16 11/20/16 11/20/16 07:59 15:59 23:59 Intake Total 963.3 / 963.3 920.7 / 920.7 287 / 287 Output Total 600 / 600 4825 / 4825 Balance 363.3 / 363.3 -3904.3 / -3904.3 287 / 287 Weight 100.199 kg - Attending Attestation I examined this patient and my medical decision-making was reviewed with the DIABETES EDUCATOR/PA/Advanced Practice Nurse/Resident Physician. I agree with the documented findings, disposition and treatment plan as described except to the extent set forth below. Patient seen and examined. Labs, radiology, chart personally reviewed. Agree with resident's history and physical, assessment, plan with following comments: I suspect HD has helped. I'm hoping his seizure under control with medication and more awake. AIRPLANE CHARTER CLERK: Patient is moving when sedation is weaned off, Patient is trying to reach to the ET tube and I feel he is more awake. Pulmonary: Acceptable oxygenation and ventilation. Changed patient o pressure support and he did acceptable numbers, however he is still not full awake and not ready for extubation. Wean off FIO2 to keep SPO2 around 92%. I feel fluid removal will help patient to have a better chance when we plan to extubate him. Will monitor his ABG to make sure there is no alkalosis or acidosis. Cardiovascular: stable, however his condition could change. GI: Nutrition per dietary and GI prophylaxis per routine Heme: DVT prophylaxis per routine Renal; urine out put and renal funtion reviewed. Agree with HD and fluid femoval. Endorcine: blood glucose is monitored Lines: all lines checked and no evidence of infections Skin: skin care to prevent pressure ulcers per nursing routine care Palliative care to see patient and I feel he might do fine when patient extubate, however we need to address code status before that. I spent 35 min of Critical Care time with this patient. It involved decision making of high complexity to assess, manipulate, and support vital organ system failure and/or to prevent further life threatening deterioration of the patient' s condition. The time involved in the performance of separately reportable procedures was not counted toward critical care time.
[2016-11-20] MEDS: Aspirin Enteric Coated 81 MG Tablet PO SCH (09:14)
[2016-11-20] MEDS: amLODIPine 5 MG TABLET PO SCH ×2 (09:14→09:30)
[2016-11-20] MEDS: Furosemide 40 MG/4 ML VIAL IVP SCH ×2 (09:15→20:52)
[2016-11-20] MEDS: Nicotine 21 MG PATCH.TD24 TD SCH (09:15)
[2016-11-20] MEDS: Chlorhexidine Rinse 15 ML MOUTHWASH MM SCH ×2 (09:15→20:52)
[2016-11-20] MEDS: Pantoprazole 40 MG VIAL IVP SCH (09:15)
[2016-11-20] MEDS ORDERED: *HR* Heparin 10,000 UNIT/10 ML VIAL IV PRN (09:20)
[2016-11-20] MEDS ORDERED: 0.9 % Sodium Chloride 250 ML IV PRN (09:20)
[2016-11-20] MEDS: Insulin DETEMIR 100 UNIT/ML X5UNITS SQ SCH ×2 (09:26→21:03)
[2016-11-20] MEDS ORDERED: 0.9 % Sodium Chloride 2,000 ML ONE (09:34)
[2016-11-20 09:59] LABS: CK Total (Ck Isoenzymes) 62 U/L (20-200); CK-BB (CK isoenzymes) 0 % (0-0)
[2016-11-20] MEDS: Ampicillin/Sulbactam 3,000 MG in 0.9 % Sodium Chloride Mini Bag 100 ML IVPB SCH ×2 (11:28→23:30)
--- NOTE | 2016-11-20 13:10 | Palliative - Consult Note ---
Date of Encounter: 11/20/16 Time of Encounter: 10:55 - Assessment and Plan (1) Generalized pain Current Visit: Yes Status: Acute Assessment and plan: Continue Fentanyl drip per ICU protocol and monitor. (2) Agitation Current Visit: Yes Status: Acute Assessment and plan: Continue Versed per ICU protocol and monitor. (3) Counseling regarding advanced care planning and goals of care Current Visit: Yes Status: Acute Assessment and plan: Discussed goals of care and clinical status with pt niece, Kell ([id number]) . States he and her brother are his closest next of kin. There is no power of commercial litigation attorney. Updated on current condition. Kell desires to speak with her brother re: code status and intubation states once pt is extubated and is coming in for meeting tomorrow at 1400. (4) Acute kidney injury superimposed on chronic kidney disease Current Visit: Yes Status: Acute (5) Diabetic ulcer of both feet associated with type 2 diabetes mellitus Current Visit: Yes Status: Acute (6) Cardiac arrest Current Visit: Yes Status: Acute Palliative-CN HPI - Data of Consult Consult date: 11/20/16 Requesting Physician: Claus Crawford MD Primary Care Provider: Mark Coe MD - Consult Narrative History of present illness: Mr. Regalado is a 61 year old male with a history of poorly controlled diabetes, diabetic foot ulcers, renal disease, HTN who came to the ER with left lower rib pain back on November 05. 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 Appears they were getting him ready for transition to [facility] for rehabilitation when He had PEA arrest on Nov 17 and had spontaneous return of circulation after approximately 10 min ACLS. He is currently intubated in the ICU. Did begin responding this am to primary nurse when sedation was decreased, however, became extremely agitated. Sedation had to be increased. No family at bedside. He appears calm and comfortable at this time. Palliative care was consulted to assist with goals of care discussion and symptom management. CC: Claus Crawford MD Past Med Surg Social Fam HX - Past Medical History Medical history: arthritis, COPD, diabetes, GERD, hepatitis, hyperlipidemia, hypertension, osteoporosis, renal disease, syncope Psychiatric history: anxiety, depression - Past Surgical History Surgical History: cataract, LE stent(s), orthopedic, other - Social History Smoking Status: Current every day smoker Smokeless Tobacco Status: No Alcohol use: none Drug use: none - Family History Mother Living Status: Hx Family Cardiac Disorders: Yes (htn) Hx Family Respiratory Disorders: No Hx Family Cancer: Yes Hx Family Endocrine Disorder: Yes (dm) Hx Family Medical Disorders: Yes Father Living Status: Medications and Allergies Aspirin [Adult Low Dose Aspirin EC] 81 mg PO DAILY 12/11/15 [History] Budesonide/Formoterol 160/4.5 [Symbicort 160/4.5] 2 puff IH BIDR 12/11/15 [ History] Citalopram Hydrobromide [Celexa] 20 mg PO DAILY 12/11/15 [History] Enalapril Maleate [Vasotec] 10 mg PO QPM 12/11/15 [History] Enalapril Maleate [Vasotec] 20 mg PO QAM 12/11/15 [History] Ergocalciferol (VITAMIN D2) [Vitamin D2 (50,000 UNIT)] 50,000 unit PO MÁRQUEZ [History] Furosemide [Lasix] 40 mg PO DAILY 12/11/15 [History] Gabapentin [Neurontin] 600 mg PO TID 12/11/15 [History] Hydrochlorothiazide 25 mg PO DAILY 12/11/15 [History] Hydroxyzine HCl 50 mg PO BID 12/11/15 [History] Insulin ASPART [Novolog] 36 - 38 unit SQ TIDWM 12/11/15 [History] Insulin Glargine,Hum.rec.anlog [Lantus Solostar] 80 unit SQ BID 12/11/15 [ History] Meclizine [Antivert] 25 mg PO BID PRN 12/11/15 [History] Omeprazole [PriLOSEC] 20 mg PO BIDAC 12/11/15 [History] Ropinirole [Requip] 1 mg PO HS 12/11/15 [History] Rosuvastatin [Crestor] 40 mg PO DAILY 12/11/15 [History] SitaGLIPtin [Januvia] 100 mg PO DAILY 12/11/15 [History] Tiotropium [Spiriva] 18 mcg IH DAILY 12/11/15 [History] Trazodone HCl [TraZODone] 100 mg PO HS 12/11/15 [History] Albuterol Neb [Proventil Neb] 2.5 mg IH Q2H PRN #0 inhsol 12/15/15 [Rx] Carvedilol [Coreg] 12.5 mg PO BIDWM #0 12/15/15 [Rx] Oxycodone HCl/Acetaminophen [Percocet 10-325 mg Tablet] 1 tab PO Q4H PRN #20 tablet 12/15/15 [Rx] Cyclobenzaprine [Flexeril] 10 mg PO TID #14 tablet 03/25/16 [Rx] Amlodipine [Norvasc] 5 mg PO DAILY #30 tablet 08/08/16 [Rx] PredniSONE 40 mg PO DAILY #8 tablet 08/08/16 [Rx] Allergies acetaminophen [From Darvocet-N] Allergy (Verified 12/11/15 11:46) Hives ibuprofen Allergy (Verified 12/11/15 11:46) Hives propoxyphene [From Darvocet-N] Allergy (Verified 12/11/15 11:46) Hives tramadol [From Ultram] Allergy (Verified 12/11/15 11:46) Hives ROS unobtainable: due to mental status Palliative Care-Exam - Constitutional Vitals: Temp Pulse Resp BP Pulse Ox 97.5 F L 66 13 118/63 99 11/20/16 10:05 11/20/16 11:00 11/20/16 11:00 11/20/16 13:05 11/20/16 11:00 General appearance: Present: no acute distress - Head Head Exam: Present: normal inspection, normocephalic - Eye Eye exam: Present: normal appearance - Respiratory Additional comments: Breath sounds course throughout. - Cardiovascular Cardiovascular exam: Present: +S1, +S2 - GI/Abdominal Exam GI/Abdominal exam: Present: normal bowel sounds, soft - Additional comments: Clear yellow urine noted in catheter tubing - Extremities Exam Additional comments: Wound vac to rt lateral foot. Dressing D/I to left foot - Neurological Exam Additional comments: Sedated and remains on vent. Patient became very agitated earlier during CPAP trial and sedation has been increased. - Skin Skin exam: Present: dry, pallor, warm Internal Medicine - CN: Reslt - Labs CBC & Chem 7: 11/20/16 04:00 11/20/16 04:00 Labs: Short CBC 11/20/16 Range/Units 04:00 WBC 10.3 (4.3-11.1) K/mcL Hgb 8.7 L (12.9-16.9) g/dL Hct 25.9 L (37.5-50.1) % Plt Count 267 (140-400) K/mcL Neutrophils # 9.5 H (1.6-8.9) K/mcL BMP 11/20/16 04:00 Sodium 143 Potassium 3.9 Chloride 107 Carbon Dioxide 23 BUN 86 H Creatinine 2.48 H Glucose 191 H Calcium 8.2 L Cardiac Enzymes 11/16/16 Range/Units Unknown CK-MB (CK-2) 0 (0-4) % Liver Function 11/20/16 Range/Units 04:00 Total Bilirubin 0.2 (0.2-1.2) mg/dL AST 11 (5-34) Units/L ALT 29 (0-55) Units/L Alkaline Phosphatase 63 (38-126) Units/L Albumin 2.4 L (3.5-5.0) g/dL - ABG Interpretation ABG results: ABG ABG pH 7.41 pH Units (7.32-7.45) 11/20/16 05:12 ABG pCO2 42 mmHg (35-45) 11/20/16 05:12 ABG pO2 121 mmHg (85-104) H 11/20/16 05:12 ABG O2 Saturation 99 % (95-98) H 11/20/16 05:12 PT/INR, D-dimer PT 12.2 Seconds (9.4-12.1) H 11/19/16 03:18 - Impressions Impressions Chest X-Ray 11/20/16 04:00 IMPRESSION: 1. Stable lines and tubes. 2. Interval worsening of bibasilar opacities and bilateral effusions. 3. Mild pulmonary edema. 4. Cardiomegaly. D/ / 11/20/2016 07:30:39 Stella Askew MD / [facility] Interpreting Provider: Stella Askew MD Consult Discharge Plan - Plan Referrals: Luba Dorantes, PAC [Physician Conveyor Feeder] - 11/20/16 11:40 am Palliative Quality Palliative Quality: Screen for Code Status: Yes, Screen for Goals of Care: Yes, Screen for Pain: Yes, If Pain Regimen Started, Initiate Bowel Regimen: NA, Screen for Nausea/Vomitting: NA
--- NOTE | 2016-11-20 16:13 | Neurology Progress Note ---
Date of Encounter: 11/20/16 Time of Encounter: 16:09 Assessment and Plan (1) Cerebral hypoxia Current Visit: Yes Status: Acute Cerebral hypoxia was secondary to respiratory arrest/cardiac causes. I am encouraged that today his examination is improved from yesterday. No longer is the decerebrate posturing present, he opens his eyes and attempts to sit up to voice, and he follows some commands although inconsistently. There has been no further seizure activity. Recommendations are simple supportive care. Certainly this gentleman has an upper chatman however again he has not had any seizures should therefore maintain the Keppra and I will follow peripherally. Subjective Principal diagnosis: Foot infection Interval history: The chart was reviewed and the patient was seen and examined. Case was also discussed with nursing. The patient is still being sedated, however when I walked into the room he was arousable to voice. He did make eye contact and attempted to sit up. He did move arms and legs. The movements appear to be purposeful. He did wiggle his toes on command. However she still has stimulation, induced myoclonus. I have encouraged however that he opens his eyes to voice and seems to be interacting with his environment. This is an improvement from yesterday. No further seizure activity has been reported. Objective - Constitutional Vitals: Temp Pulse Resp BP Pulse Ox 98.3 F 62 15 152/69 98 11/20/16 13:10 11/20/16 15:00 11/20/16 15:00 11/20/16 15:00 11/20/16 15:00 - Neurological Exam Motor Examination: Present: other (Patient is moving all 4 extremities randomly , he does appear to have spastic tone. He follows some commands but not all.) Posture: Present: other (No posturing is identified today.) Mental Status Examination: Present: no spontaneous eye opening to voice or tactile stimulation Cranial nerve examination: Present: PERRL Additional comments: Please see subjective for pertinent exam findings. His mental status is improved somewhat today however is still far from baseline. He is attempting to make some eye contact and follows some commands. He is stimulated by environmental stimulus. He opens his eyes to voice and attempts to sit up to voice. No discernible posturing is identified today. He moves all 4 extremities. His movements however are still spastic and he still has myoclonic movements. Results - Laboratory Findings CBC and BMP: 11/20/16 04:00 11/20/16 04:00 Abnormal lab findings: Abnormal lab results RBC 3.02 M/mcL (4.19-5.50) L 11/20/16 04:00 Hgb 8.7 g/dL (12.9-16.9) L 11/20/16 04:00 Hct 25.9 % (37.5-50.1) L 11/20/16 04:00 RDW 16.5 % (11.5-14.5) H 11/20/16 04:00 Metamyelocytes % 4.0 % (0) H 11/13/16 03:25 Myelocytes % 4.0 % (0) H 11/14/16 03:45 Neutrophils # 9.5 K/mcL (1.6-8.9) H 11/20/16 04:00 Lymphocytes # 0.3 K/mcL (0.6-4.6) L 11/20/16 04:00 Nucleated RBCs/100 WBC 0.2 /100 WBC (0) H 11/18/16 04:18 Reactive Lymphocytes Present (Not Present) A 11/13/16 03:25 Toxic Vacuolation Present (Not Present) A 11/13/16 03:25 Platelet Estimate Marked Decrease (Normal) L 11/14/16 03:45 Polychromasia 1+ (Not Present) A 11/12/16 05:00 ESR 66 mm/hr (0-10) H 11/12/16 08:30 PT 12.2 Seconds (9.4-12.1) H 11/19/16 03:18 APTT 25.5 Seconds (26.0-36.0) L 11/17/16 21:25 ABG pO2 121 mmHg (85-104) H 11/20/16 05:12 ABG Total CO2 27.9 mEq/L (20-26) H 11/20/16 05:12 ABG O2 Saturation 99 % (95-98) H 11/20/16 05:12 BUN 86 mg/dL (8-26) H 11/20/16 04:00 Creatinine 2.48 mg/dL (0.72-1.25) H 11/20/16 04:00 Est GFR ( Amer) 32 (> 60) L 11/20/16 04:00 Est GFR (Non-Af Amer) 27 (> 60) L 11/20/16 04:00 BUN/Creatinine Ratio 35 (6-26) H 11/20/16 04:00 Glucose 191 mg/dL (70-99) H 11/20/16 04:00 POC Glucose 182 (58-89) H 11/20/16 15:35 Calculated Osmolality 327 (280-300) H 11/20/16 04:00 Lactic Acid 2.6 mmol/L (0.5-2.2) H 11/18/16 13:20 Uric Acid 8.4 mg/dL (3.5-7.2) H 11/12/16 05:03 Calcium 8.2 mg/dL (8.6-10.8) L 11/20/16 04:00 Ionized Calcium 1.01 mmol/L (1.15-1.35) L 11/19/16 03:18 Phosphorus 7.1 mg/dL (2.3-4.7) H 11/20/16 04:00 Troponin I 0.24 ng/mL (0-0.03) H* 11/18/16 04:18 C-Reactive Protein 13 mg/L (Less than 5) H 11/12/16 08:30 B-Natriuretic Peptide 201 pg/mL (0-100) H 11/16/16 Unknown Albumin 2.4 g/dL (3.5-5.0) L 11/20/16 04:00 Globulin 3.7 g/dL (2.4-3.5) H 11/20/16 04:00 Albumin/Globulin Ratio 0.6 (1.1-2.2) L 11/20/16 04:00 Urine Protein 100 mg/dL (Neg-Trace) H 11/12/16 15:20 Urine Glucose (UA) 250 mg/dL (Normal) H 11/12/16 15:20 Urine Microscopic RBC 3-5 per hpf (0-3) H 11/12/16 15:20 Ur Squamous Epith Cells Moderate per lpf (None-Few) H 11/12/16 15:20 Consult Discharge Plan - Plan Referrals: Luba Dorantes, PAC [Physician Market Manager] - 11/20/16 11:40 am
--- NOTE | 2016-11-20 17:08 | Nephrology Progress Note ---
Date of Encounter: 11/20/16 Time of Encounter: 10:00 - Assessment and Plan (1) Acute respiratory failure Current Visit: Yes Status: Acute Vent settings per primary team Ok to use lasix intermittently. HD session today with goal UF of 4 kg Limit obligate fluids if possible Qualifiers: Respiratory failure complication: unspecified whether with hypoxia or hypercapnia Qualified Code(s): J96.00 - Acute respiratory failure, unspecified whether with hypoxia or hypercapnia (2) Acute kidney injury superimposed on chronic kidney disease Current Visit: Yes Status: Acute SCR better with first HD session, second seeion today for 3 hrs with UF goal of 4kg as tolerated. Will assess tomorrow for third session need UOP remains very good Lytes stable Avoid nephrotoxins if possible (3) Anemia Current Visit: Yes Status: Acute Hgb noted at 8.7, improving with fluid removal, will monitor. Transfusion paramenters per primary team Qualifiers: Anemia type: other cause Other causes of anemia: chronic disease, kidney Qualified Code(s): N18.9 - Chronic kidney disease, unspecified; D63.1 - Anemia in chronic kidney disease (4) CKD (chronic kidney disease) stage 3, GFR 30-59 ml/min Current Visit: Yes Status: Chronic Baseline around 30-40s but has been fluctuating in the past 3 weeks (5) Hypertension Current Visit: Yes Status: Chronic BP stable Qualifiers: Hypertension type: essential hypertension Qualified Code(s): I10 - Essential (primary) hypertension (6) Hyperkalemia Current Visit: Yes Status: Resolved resolved Subjective Principal diagnosis: Foot infection Interval history: Pt seen and examined still intubated but more arousable and following some commands. still failed cPAP trial today Objective - Vital Signs Vital signs: Vital Signs Temp Pulse Resp BP Pulse Ox 11/20/16 15:00 62 15 152/69 98 11/20/16 14:00 60 15 142/64 97 11/20/16 13:25 15 138/66 98 11/20/16 13:10 98.3 F 11 139/66 11/20/16 13:05 118/63 11/20/16 13:00 62 15 121/69 98 11/20/16 12:50 111/62 11/20/16 12:35 117/62 11/20/16 12:20 120/62 11/20/16 12:05 140/71 11/20/16 12:00 98.3 F 61 15 144/74 98 11/20/16 11:50 152/68 11/20/16 11:35 154/67 11/20/16 11:20 154/70 11/20/16 11:05 162/61 11/20/16 11:01 15 156/71 98 11/20/16 11:00 66 13 156/71 99 11/20/16 10:50 166/65 11/20/16 10:35 163/68 11/20/16 10:20 168/63 11/20/16 10:05 97.5 F L 13 171/65 11/20/16 10:00 74 17 164/62 97 11/20/16 09:50 18 169/60 96 11/20/16 09:00 76 12 184/75 99 11/20/16 08:41 30 134/69 98 11/20/16 08:40 97.5 F L 11/20/16 08:00 97.4 F L 74 18 174/78 98 11/20/16 07:00 89 12 160/85 99 11/20/16 06:34 182/90 11/20/16 06:29 12 182/90 99 11/20/16 06:00 60 16 156/87 100 11/20/16 05:00 52 14 145/73 100 11/20/16 04:38 54 11/20/16 04:20 15 138/78 99 11/20/16 04:14 97.4 F L 11/20/16 04:00 54 12 138/78 99 11/20/16 03:00 53 15 135/76 99 11/20/16 02:26 17 135/82 98 11/20/16 02:00 52 15 135/82 100 11/20/16 01:00 53 15 139/86 100 11/20/16 00:43 97.4 F L 11/20/16 00:42 13 144/81 98 11/20/16 00:30 52 11/20/16 00:00 54 14 154/79 100 11/19/16 23:00 53 15 144/79 100 11/19/16 22:57 20 139/45 11/19/16 22:29 15 149/77 99 11/19/16 22:25 136/45 11/19/16 22:10 141/58 02/13/17 22:00 52 14 142/71 100 11/19/16 21:55 142/78 11/19/16 21:43 51 11/19/16 21:40 133/72 11/19/16 21:25 141/68 11/19/16 21:10 138/72 11/19/16 21:00 51 14 144/74 100 11/19/16 20:55 144/74 11/19/16 20:40 161/68 11/19/16 20:32 14 160/75 100 11/19/16 20:25 97.4 F L 20 159/75 11/19/16 20:16 97.4 F L 11/19/16 20:00 52 14 159/75 100 11/19/16 19:00 51 14 159/75 100 11/19/16 18:00 54 12 173/87 99 11/19/16 17:04 15 169/84 100 11/19/16 17:00 54 12 169/84 100 Intake and Output 11/20/16 11/20/16 11/20/16 07:59 15:59 23:59 Intake Total 963.3 / 963.3 920.7 / 920.7 Output Total 600 / 600 4775 / 4775 Balance 363.3 / 363.3 -3854.3 / -3854.3 Intake: IV Fluids 707.3 / 707.3 142.7 / 142.7 FentaNYL (PF) 1,000 MCG 150 / 150 In 0.9 % Sodium Chloride 80 ML @ 50 MCG/HR 5 mls/ hr IVC CONT ALEX Rx#: [id number] Versed 50 MG In 0.9 % 215 / 215 85 / 85 Sodium Chloride 90 ML @ 10 MG/HR 20 mls/hr IVC CONT ALEX Rx#:[id number] Diprivan 1,000 mg In 100 342.3 / 342.3 57.7 / 57.7 ml @ 5 MCG/KG/MIN 3.309 mls/hr IVC .Q24H ALEX Rx#: [id number] Oral 0 / 0 Tube Feeding 256 / 256 178 / 178 Intake, Rinseback and 600 / 600 Flushes Output: Urine 0 / 0 Total Dialysis Output 4100 / 4100 Catheter 600 / 600 675 / 675 Other: Meal Nourishment/Supplement Stool Size Moderate Stool Consistency soft # Bowel Movements 1 # Bowel Movement Diapers 0 Weight 100.199 kg Blood Glucose* 198 158 Hemodialysis Net Fluid 3500 Removed (mL) Patient Weight 11/20/16 23:59 Weight 100.199 kg - General Appearance General appearance: Present: chronically ill, intubated EENT: Present: ATNC, mucous membranes moist Neck: Present: no JVD, supple Respiratory: Present: course breath sounds Cardiology: Present: edema (LE/UE/scrotal), normal S1, normal S2 Dialysis Vascular Access: Venous Catheter Gastrointestinal: Present: absent bowel sounds, no guarding, obese Integumentary: Present: warm and dry Additional Comments: follows some commands Musculoskeletal: Present: no deformities Additional Comments: intubated - Lab 11/20/16 04:00 11/20/16 04:00 Most recent lab results ABG pH 7.41 pH Units (7.32-7.45) 11/20/16 05:12 ABG pCO2 42 mmHg (35-45) 11/20/16 05:12 ABG pO2 121 mmHg (85-104) H 11/20/16 05:12 ABG HCO3 26.6 mEQ/L (21-27) 11/20/16 05:12 ABG O2 Saturation 99 % (95-98) H 11/20/16 05:12 Calcium 8.2 mg/dL (8.6-10.8) L 11/20/16 04:00 Phosphorus 7.1 mg/dL (2.3-4.7) H 11/20/16 04:00 Magnesium 2.0 mg/dL (1.6-2.6) 11/19/16 03:18 Urine Creatinine 47 mg/dL 11/12/16 15:20 Urine Sodium 65.0 mEq/L 11/12/16 15:20 Consult Discharge Plan - Plan Referrals: Luba Dorantes, PAC [Physician Mechanical Equipment Sales Engineer] - 11/20/16 11:40 am
[2016-11-21] MEDS: Ipratropium/Albuterol Neb 3 ML IH SCH ×7 (00:13→23:31)
[2016-11-21] MEDS: Insulin LISPRO 300 UNITS/3 ML VIAL SQ SCH ×6 (00:31→20:58)
[2016-11-21] MEDS: FentaNYL (PF) 3,000 MCG in 0.9 % Sodium Chloride 240 ML IVC SCH ×2 (02:30→06:03)
[2016-11-21] MEDS: Lacri-Lube 3.5 GM TUBE BOTH EYES SCH ×6 (04:30→23:45)
[2016-11-21 04:42] LABS: Hematocrit 25.7 % (37.5-50.1); Hemoglobin 8.3 g/dL (12.9-16.9); Immature Granulocytes % 1.1 % (0-4); Lymphocytes # 0.2 K/mcL (0.6-4.6); Lymphocytes % 2.4 %; Mean Corpuscular HGB Conc 32.3 g/dL (31.6-35.5); Mean Corpuscular Hemoglobin 27.8 pg (28.0-33.3); Mean Platelet Volume 9.6 fL (9.4-12.4); Monocytes # 0.3 K/mcL (0.0-1.3); Monocytes % 4.7 %; Neutrophils # 6.6 K/mcL (1.6-8.9); Platelet Count 230 K/mcL (140-400); Red Blood Count 2.99 M/mcL (4.19-5.50); Red Cell Distribution Width 16.3 % (11.5-14.5); Segmented Neutrophils % 91.8 %
[2016-11-21 05:01] LABS: Albumin 2.4 g/dL (3.5-5.0); Albumin/Globulin Ratio 0.7 (1.1-2.2); Bilirubin,Total 0.2 mg/dL (0.2-1.2); Calcium 7.8 mg/dL (8.6-10.8); Globulin 3.5 g/dL (2.4-3.5); Potassium 4.3 mEq/L (3.5-4.5); Total Protein 5.9 g/dL (6.0-8.3)
[2016-11-21 05:32] LABS: ABG Base Excess 4.6 mEq/L (-2.0 to 3.0); ABG HCO3 29.8 mEQ/L (21-27); ABG Oxygen Saturation 99 % (95-98); ABG PCO2 47 mmHg (35-45); ABG PH 7.41 pH Units (7.32-7.45); ABG PO2 121 mmHg (85-104); ABG TCO2 31.2 mEq/L (20-26)
[2016-11-21 05:33] LABS: Blood Gas FiO2 40 %; Blood Gas PEEP 5 cm H2O; Blood Gas Respiration Rate 12; Blood Gas VT 500 cc
[2016-11-21 05:41] LABS: Hypersegmented Neutrophils Present (Not Present); Platelet Estimate Normal (Normal); Toxic Granulation Present (Not Present)
[2016-11-21] MEDS: methylPREDNISolone 125 MG/2 ML VIAL IVP SCH (06:00)
[2016-11-21] MEDS: *HR* Heparin 5,000 UNIT/ML VIAL SQ SCH ×3 (06:02→23:10)
[2016-11-21] MEDS ORDERED: FentaNYL (PF) 1,000 MCG in 0.9 % Sodium Chloride 80 ML IVC SCH (08:30)
[2016-11-21] MEDS: Chlorhexidine Rinse 15 ML MOUTHWASH MM SCH ×2 (09:08→20:53)
[2016-11-21] MEDS: Aspirin Enteric Coated 81 MG Tablet PO SCH (09:08)
[2016-11-21] MEDS: amLODIPine 5 MG TABLET PO SCH (09:09)
[2016-11-21] MEDS: Nicotine 21 MG PATCH.TD24 TD SCH (09:15)
[2016-11-21] MEDS: Pantoprazole 40 MG VIAL IVP SCH (09:15)
[2016-11-21] MEDS: Furosemide 40 MG/4 ML VIAL IVP SCH ×2 (09:16→20:53)
[2016-11-21] MEDS: Insulin DETEMIR 100 UNIT/ML X5UNITS SQ SCH ×2 (09:17→21:17)
[2016-11-21] MEDS ORDERED: 0.9 % Sodium Chloride 250 ML IV PRN (09:27)
[2016-11-21] MEDS ORDERED: *HR* Heparin 10,000 UNIT/10 ML VIAL IV PRN (09:27)
--- NOTE | 2016-11-21 09:38 | Pulmonology Progress Note ---
<Frankie Baker - Last Filed: 11/21/16 14:43> Date of Encounter: 11/21/16 Time of Encounter: 09:36 Assessment and Plan (1) Acute respiratory failure Current Visit: Yes Status: Acute Acute respiratory failure secondary to cardiac arrest. Successfully extubated today after tolerating CPAP trial. Maintaining non-labored breathing, oxygen sats >90% on 2L NC. He is agitated post extubation, CXR this am demonstrated improved pulmonary edema. Plan: - Continue Respiratory inhalers. - Discontinued Solu-Medrol - Repeat a.m. labs. - Wean sedation as tolerated. Qualifiers: Respiratory failure complication: unspecified whether with hypoxia or hypercapnia Qualified Code(s): J96.00 - Acute respiratory failure, unspecified whether with hypoxia or hypercapnia (2) Cardiac arrest Current Visit: Yes Status: Acute Patient suffered sudden PEA cardiac arrest around 5 PM 11/17/2016. Underwent ACLS for roughly 10 minutes before regaining pulse. He was intubated and transferred to the ICU. Possible contributing factors include significant fluid overload, elevated phosphorus, elevated BUN worsening renal function. Troponin on 11/16/2069 was 0.00, troponins on 11/17/2016 went from 0.02-0.24. Patient remains intubated and sedated. Post cardiac arrest patient demonstrated seizure activity was seen by neurology, EEG was performed which did not demonstrate any seizure activity. 11/20/2016: purposeful movements towards pulling ET tube. Agitated and required continued sedation today. 11/21/2016: Successful extubation. Patient is agitated, started on Fentanyl for LE wound pain and Precedex started with agitation. Glassgow score of 14. Plan to reassess neurological status this afternoon. Plan: - Continue monitoring neurologic status. - Continue to monitor electrolytes and replace as necessary. - Continue ICU care. - Palliative care following. (3) Diastolic CHF Current Visit: Yes Status: Acute History of diastolic heart failure, echocardiogram demonstrates LVEF 60-65% normal left ventricular size and systolic function. Indeterminant diastolic function. RV appears mildly dilated with normal function. Mild mitral regurgitation. Mild tricuspid regurgitation. Probable mild pulmonary hypertension. Patient physical examination demonstrates fluid overload with 2+ pitting lower extremity edema. Chest x-ray demonstrates diffuse pulmonary edema. Patient's fluid balance is +13 L. Post PA arrest. Nephrology is on board and plans to hemodialyze the patient Saturday, Saturday, Saturday to remove excess fluid in the setting of worsening renal function. Bilateral lower extremity Dopplers demonstrated normal superficial and deep examination. 11/20/2016: Hemodialysis removed 2600 yesterday. Continues to be volume overloaded, would benefit from another round of dialysis today. 11/21/2016: Hemodialysis removed 4000 yesterday. Volume status much improved. Patient removed hemodialysis catheter. We will monitor status as he is clinically improved. Continues to have appropriate urinary output. Patient stable. Plan: - Strict ins and outs. - Monitor overnight may require hemodialysis catheter placement tomorrow. Qualifiers: Qualified Code(s): I50.30 - Unspecified diastolic (congestive) heart failure (4) Seizure Current Visit: Yes Status: Acute Seizure activity secondary to cardiac arrest and 10 minutes of ACLS CPR. Neurology is following the patient. EEG was negative for seizure activity. Continue Keppra 500 mg IV twice a day, continue with diazepam IV. Neurology will continue to follow the patient. Continue seizure precautions. Head CT performed 11/18/2016 demonstrates no acute intracranial abnormalities. Unchanged remote left basal ganglion lacunar infarct. 11/21/2016: Awake, alert but continues to be agitated. No seizure activity seen today. Plan: - Continue Keppra - D/C Propofol (5) Acute kidney injury superimposed on chronic kidney disease Current Visit: Yes Status: Acute Patient has underlining chronic kidney disease with diminished renal function and fluid overload. Hemodialysis catheter placed on 11/19/2016 and underwent HD on 11/19/2016. Patient removed hemodialysis catheter today. Creatinine 2.29 and GFR 29, which is greatly improved likely secondary to hemodialysis. We will continue Lasix diuresis and monitor renal function. Plan: - Continue Lasix 40 mg twice a day. - Monitor renal function with daily labs. -Avoid nephrotoxic medications and renally dose antibiotics. 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 Right foot wound culture demonstrates Proteus vulgaris, enterococcus bacillus with sensitivities to current antibiotics. Left foot ulcer is superficial dressing changes are done at bedside per wound care. 11/21/2016: Patient was extubated and became agitated taking bed knocking off wound VAC. Dislodged a few stitches in his right lateral foot. Podiatry was called to evaluate patient foot. Plan: - Continue Unasyn 3000 mg every 12 hours. -Continue wound care and wound VAC per wound care Management (7) Osteomyelitis of foot, right, acute Current Visit: Yes Status: Acute s/p incision and drainage to bone cortex for osteomyelitis #5 metatarsal right, open amputation of toe #5 with metatarsal #5 right foot, application wound VAC on 11/06/16. Will require 6 weeks antibiotic coverage. Continue current antibiotics as listed above. (8) Diabetes mellitus Current Visit: Yes Status: Acute Insulin dependent diabetic on Januvia, Lantus 80 units subcutaneous twice a day , at home. Patient is currently intubated and NPO. Continue every 6 hour glucose checks and sliding scale insulin. Glucose slightly elevated likely secondary to Solu-Medrol. Glucose goal range 140-180. Plan: - Continue inpatient sliding scale insulin. - We will resume ACHS checks and home insulin when patient is awake and tolerating PO intake appropriately. - Discontinued Solu-Medrol IV. Qualifiers: Qualified Code(s): E11.9 - Type 2 diabetes mellitus without complications (9) Hypertension Current Visit: Yes Status: Chronic Patient has a HTN with elevated blood pressures throughout inpatient stay. Increased Norvasc today to 10mg with continued elevated blood pressures and not on pressure support. Bedside swallow test to evaluate for swallowing post extubation. Plan: - Continue monitoring blood pressure. Qualifiers: Hypertension type: essential hypertension Qualified Code(s): I10 - Essential (primary) hypertension (10) DVT prophylaxis Current Visit: Yes Status: Acute Continue heparin 5000 units subcutaneous every 8 hours. Subjective Principal diagnosis: Foot infection Interval history: Mr. Regalado has been seen and evaluated at patient bedside this morning. He was successful extubated this morning and maintaining oxygen saturations >90% on 2L oxygen. He is agitated and thrashing around that resulted and tearing his wound vac off his right foot. He responds to verbal commands and protecting his airway currently. Objective PUL Vital signs: Last Vital Signs Temp 97.8 F 11/21/16 08:00 Pulse 91 11/21/16 08:00 Resp 12 11/21/16 08:42 BP 176/65 11/21/16 08:00 Pulse Ox 95 11/21/16 08:42 Gen: Well-developed well-nourished, agitated, responding to verbal commands. HEENT: Normocephalic atraumatic, pupils are symmetric, equal reactive to light, Oral mucosa dry. Neck is supple trachea is midline. No crepitus or lymphadenopathy appreciated on palpation. Chest: Symmetric bilateral correlating with respiratory effort. Respiratory effort correlated with mechanical ventilation. Cardiac: Regular rate and rhythm with grade 2/6 systolic ejection murmur. Upper extremity capillary refill is 2+ bilateral. Diminished bilateral posterior tibial pulses. Feet are warm to touch. Respiratory: Crackles appreciated bilateral lung bases. Diffuse minor expiratory wheeze. Abdomen: Distended, patient responds with arm movements and opening eyes with palpation of the abdomen. Hypoactive bowel sounds. Extremities patient has diffuse 2+ pitting edema in all 4 extremities. Right foot is wrapped with wound VAC on lateral aspect. Fifth right LE digit amputation with wound VAC Wound demonstrates bloody drainage and appropriate healing without surrounding erythema or edema. Third right LE digit previously amputated. Left diabetic foot ulcer wrapped without any signs of surrounding cellulitis. Distal S2 tibial and dorsal pedal pulses very poor. Distal toes are pale in color with poor toenail care. Skin: Diffuse anasarca, improving. Ventilator Settings Ventilator Settings: Ventilator Settings, Last 8 Hours Ventilator Mode CPAP Ventilator Mode CPAP Ventilator Mode VC+ Ventilator Mode VC+ Ventilator Mode VC+ Ventilator Mode VC+ Ventilator Mode VC+ Ventilator Mode VC+ Ventilator Mode VC+ Ventilator Tidal Volume 500 Setting Ventilator Tidal Volume 500 Setting Ventilator Tidal Volume 500 Setting Ventilator Tidal Volume 500 Setting Ventilator Tidal Volume 500 Setting Ventilator Tidal Volume 500 Setting Ventilator Tidal Volume 500 Setting Ventilator Tidal Volume 500 Setting Ventilator Respiratory Rate 12 Setting Ventilator Respiratory Rate 12 Setting Ventilator Respiratory Rate 12 Setting Ventilator Respiratory Rate 12 Setting Ventilator Respiratory Rate 12 Setting Ventilator Respiratory Rate 12 Setting Ventilator Respiratory Rate 12 Setting Actual Respiratory Rate 12 Actual Respiratory Rate 9 Actual Respiratory Rate 16 Actual Respiratory Rate 18 Actual Respiratory Rate 15 Actual Respiratory Rate 17 Actual Respiratory Rate 17 Actual Respiratory Rate 17 Positive End Expiratory 5 Pressure Positive End Expiratory 5 Pressure Positive End Expiratory 5 Pressure Positive End Expiratory 5 Pressure Positive End Expiratory 5 Pressure Positive End Expiratory 5 Pressure Positive End Expiratory 5 Pressure Positive End Expiratory 5 Pressure Positive End Expiratory 5 Pressure Peak Inspiratory Airway 12 Pressure Peak Inspiratory Airway 11 Pressure Peak Inspiratory Airway 22 Pressure Peak Inspiratory Airway 29 Pressure Peak Inspiratory Airway 22 Pressure Peak Inspiratory Airway 14 Pressure Peak Inspiratory Airway 29 Pressure Peak Inspiratory Airway 37 Pressure Results - Laboratory Findings CBC and BMP: 11/21/16 04:20 11/21/16 04:20 ABG ABG pH 7.41 pH Units (7.32-7.45) 11/21/16 05:18 ABG pCO2 47 mmHg (35-45) H 11/21/16 05:18 ABG pO2 121 mmHg (85-104) H 11/21/16 05:18 ABG O2 Saturation 99 % (95-98) H 11/21/16 05:18 PT/INR, D-dimer PT 12.2 Seconds (9.4-12.1) H 11/19/16 03:18 Abnormal lab findings: Abnormal lab results RBC 2.99 M/mcL (4.19-5.50) L 11/21/16 04:20 Hgb 8.3 g/dL (12.9-16.9) L 11/21/16 04:20 Hct 25.7 % (37.5-50.1) L 11/21/16 04:20 MCH 27.8 pg (28.0-33.3) L 11/21/16 04:20 RDW 16.3 % (11.5-14.5) H 11/21/16 04:20 Metamyelocytes % 4.0 % (0) H 11/13/16 03:25 Myelocytes % 4.0 % (0) H 11/14/16 03:45 Lymphocytes # 0.2 K/mcL (0.6-4.6) L 11/21/16 04:20 Nucleated RBCs/100 WBC 0.2 /100 WBC (0) H 11/18/16 04:18 Hypersegmented Neuts Present (Not Present) A 11/21/16 04:20 Reactive Lymphocytes Present (Not Present) A 11/13/16 03:25 Toxic Granulation Present (Not Present) A 11/21/16 04:20 Toxic Vacuolation Present (Not Present) A 11/13/16 03:25 Polychromasia 1+ (Not Present) A 11/12/16 05:00 ESR 66 mm/hr (0-10) H 11/12/16 08:30 PT 12.2 Seconds (9.4-12.1) H 11/19/16 03:18 APTT 25.5 Seconds (26.0-36.0) L 11/17/16 21:25 ABG pCO2 47 mmHg (35-45) H 11/21/16 05:18 ABG pO2 121 mmHg (85-104) H 11/21/16 05:18 ABG HCO3 29.8 mEQ/L (21-27) H 11/21/16 05:18 ABG Total CO2 31.2 mEq/L (20-26) H 11/21/16 05:18 ABG O2 Saturation 99 % (95-98) H 11/21/16 05:18 ABG Base Excess 4.6 mEq/L (-2.0 to 3.0) H 11/21/16 05:18 BUN 81 mg/dL (8-26) H 11/21/16 04:20 Creatinine 2.29 mg/dL (0.72-1.25) H 11/21/16 04:20 Est GFR ( Amer) 35 (> 60) L 11/21/16 04:20 Est GFR (Non-Af Amer) 29 (> 60) L 11/21/16 04:20 BUN/Creatinine Ratio 35 (6-26) H 11/21/16 04:20 Glucose 252 mg/dL (70-99) H 11/21/16 04:20 POC Glucose 230 (58-89) H 11/21/16 07:28 Calculated Osmolality 325 (280-300) H 11/21/16 04:20 Lactic Acid 2.6 mmol/L (0.5-2.2) H 11/18/16 13:20 Uric Acid 8.4 mg/dL (3.5-7.2) H 11/12/16 05:03 Calcium 7.8 mg/dL (8.6-10.8) L 11/21/16 04:20 Ionized Calcium 1.01 mmol/L (1.15-1.35) L 11/19/16 03:18 Phosphorus 7.1 mg/dL (2.3-4.7) H 11/20/16 04:00 Troponin I 0.24 ng/mL (0-0.03) H* 11/18/16 04:18 C-Reactive Protein 13 mg/L (Less than 5) H 11/12/16 08:30 B-Natriuretic Peptide 201 pg/mL (0-100) H 11/16/16 Unknown Serum Total Protein 5.9 g/dL (6.0-8.3) L 11/21/16 04:20 Albumin 2.4 g/dL (3.5-5.0) L 11/21/16 04:20 Albumin/Globulin Ratio 0.7 (1.1-2.2) L 11/21/16 04:20 Urine Protein 100 mg/dL (Neg-Trace) H 11/12/16 15:20 Urine Glucose (UA) 250 mg/dL (Normal) H 11/12/16 15:20 Urine Microscopic RBC 3-5 per hpf (0-3) H 11/12/16 15:20 Ur Squamous Epith Cells Moderate per lpf (None-Few) H 11/12/16 15:20 - Clinical Findings Intake & Output: Intake & Output 11/20/16 11/21/16 11/21/16 23:59 07:59 15:59 Intake Total 770 / 770 1074 / 1074 97 / 97 Output Total 150 / 150 950 / 950 Balance 620 / 620 124 / 124 97 / 97 Weight 123.286 kg Consult Discharge Plan - Plan Referrals: Luba Dorantes, PAC [Physician Distribution Spec] - 11/20/16 11:40 am <Ariana Hawthorne - Last Filed: 11/21/16 16:54> Objective PUL Vital signs: Last Vital Signs Temp 96.8 F L 11/21/16 15:47 Pulse 61 11/21/16 16:00 Resp 18 11/21/16 16:45 BP 150/61 11/21/16 15:00 Pulse Ox 97 11/21/16 16:45 Results - Laboratory Findings CBC and BMP: 11/21/16 04:20 11/21/16 04:20 ABG ABG pH 7.41 pH Units (7.32-7.45) 11/21/16 05:18 ABG pCO2 47 mmHg (35-45) H 11/21/16 05:18 ABG pO2 121 mmHg (85-104) H 11/21/16 05:18 ABG O2 Saturation 99 % (95-98) H 11/21/16 05:18 PT/INR, D-dimer PT 12.2 Seconds (9.4-12.1) H 11/19/16 03:18 Abnormal lab findings: Abnormal lab results RBC 2.99 M/mcL (4.19-5.50) L 11/21/16 04:20 Hgb 8.3 g/dL (12.9-16.9) L 11/21/16 04:20 Hct 25.7 % (37.5-50.1) L 11/21/16 04:20 MCH 27.8 pg (28.0-33.3) L 11/21/16 04:20 RDW 16.3 % (11.5-14.5) H 11/21/16 04:20 Metamyelocytes % 4.0 % (0) H 11/13/16 03:25 Myelocytes % 4.0 % (0) H 11/14/16 03:45 Lymphocytes # 0.2 K/mcL (0.6-4.6) L 11/21/16 04:20 Nucleated RBCs/100 WBC 0.2 /100 WBC (0) H 11/18/16 04:18 Hypersegmented Neuts Present (Not Present) A 11/21/16 04:20 Reactive Lymphocytes Present (Not Present) A 11/13/16 03:25 Toxic Granulation Present (Not Present) A 11/21/16 04:20 Toxic Vacuolation Present (Not Present) A 11/13/16 03:25 Polychromasia 1+ (Not Present) A 11/12/16 05:00 ESR 66 mm/hr (0-10) H 11/12/16 08:30 PT 12.2 Seconds (9.4-12.1) H 11/19/16 03:18 APTT 25.5 Seconds (26.0-36.0) L 11/17/16 21:25 ABG pCO2 47 mmHg (35-45) H 11/21/16 05:18 ABG pO2 121 mmHg (85-104) H 11/21/16 05:18 ABG HCO3 29.8 mEQ/L (21-27) H 11/21/16 05:18 ABG Total CO2 31.2 mEq/L (20-26) H 11/21/16 05:18 ABG O2 Saturation 99 % (95-98) H 11/21/16 05:18 ABG Base Excess 4.6 mEq/L (-2.0 to 3.0) H 11/21/16 05:18 BUN 81 mg/dL (8-26) H 11/21/16 04:20 Creatinine 2.29 mg/dL (0.72-1.25) H 11/21/16 04:20 Est GFR ( Amer) 35 (> 60) L 11/21/16 04:20 Est GFR (Non-Af Amer) 29 (> 60) L 11/21/16 04:20 BUN/Creatinine Ratio 35 (6-26) H 11/21/16 04:20 Glucose 252 mg/dL (70-99) H 11/21/16 04:20 Calculated Osmolality 325 (280-300) H 11/21/16 04:20 Lactic Acid 2.6 mmol/L (0.5-2.2) H 11/18/16 13:20 Uric Acid 8.4 mg/dL (3.5-7.2) H 11/12/16 05:03 Calcium 7.8 mg/dL (8.6-10.8) L 11/21/16 04:20 Ionized Calcium 1.01 mmol/L (1.15-1.35) L 11/19/16 03:18 Phosphorus 7.1 mg/dL (2.3-4.7) H 11/20/16 04:00 Troponin I 0.24 ng/mL (0-0.03) H* 11/18/16 04:18 C-Reactive Protein 13 mg/L (Less than 5) H 11/12/16 08:30 B-Natriuretic Peptide 201 pg/mL (0-100) H 11/16/16 Unknown Serum Total Protein 5.9 g/dL (6.0-8.3) L 11/21/16 04:20 Albumin 2.4 g/dL (3.5-5.0) L 11/21/16 04:20 Albumin/Globulin Ratio 0.7 (1.1-2.2) L 11/21/16 04:20 Urine Protein 100 mg/dL (Neg-Trace) H 11/12/16 15:20 Urine Glucose (UA) 250 mg/dL (Normal) H 11/12/16 15:20 Urine Microscopic RBC 3-5 per hpf (0-3) H 11/12/16 15:20 Ur Squamous Epith Cells Moderate per lpf (None-Few) H 11/12/16 15:20 - Clinical Findings Intake & Output: Intake & Output 11/21/16 11/21/16 11/21/16 07:59 15:59 23:59 Intake Total 1074 / 1074 297 / 297 Output Total 950 / 950 850 / 850 Balance 124 / 124 -553 / -553 Weight 123.286 kg - Attending Attestation I examined this patient and my medical decision-making was reviewed with the HAND FORMER/PA/Advanced Practice Nurse/Resident Physician. I agree with the documented findings, disposition and treatment plan as described except to the extent set forth below. Patient seen and examined. Labs, radiology, chart personally reviewed. 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 Nephrology follow-up. I am hoping with diuresis he will respond without needing hemodialysis. Endorcine: blood glucose is monitored Lines: all lines checked and no evidence of infections Skin: skin care to prevent pressure ulcers per nursing routine care. Podiatry follow-up.
[2016-11-21] MEDS: Dexmedetomidine HCl 400 MCG/100 ML MLS IVC SCH ×4 (09:39→20:55)
[2016-11-21] MEDS: Ampicillin/Sulbactam 3,000 MG in 0.9 % Sodium Chloride Mini Bag 100 ML IVPB SCH ×2 (11:13→23:11)
--- NOTE | 2016-11-21 11:54 | Nephrology Progress Note ---
Date of Encounter: 11/21/16 Time of Encounter: 10:10 - Assessment and Plan (1) Acute respiratory failure Current Visit: Yes Status: Acute s/p extubation per primary team Ok to use lasix intermittently. HD session planned with UF as tolerated Limit obligate fluids if possible Qualifiers: Respiratory failure complication: unspecified whether with hypoxia or hypercapnia Qualified Code(s): J96.00 - Acute respiratory failure, unspecified whether with hypoxia or hypercapnia (2) Acute kidney injury superimposed on chronic kidney disease Current Visit: Yes Status: Acute SCR better with second HD session, third sesseion today for 3 hrs with UF goal of 3-4kg as tolerated UOP remains very good Lytes stable Avoid nephrotoxins if possible (3) Anemia Current Visit: Yes Status: Acute Hgb noted at 8.3, a little worse. Transfusion paramenters per primary team Qualifiers: Anemia type: other cause Other causes of anemia: chronic disease, kidney Qualified Code(s): N18.9 - Chronic kidney disease, unspecified; D63.1 - Anemia in chronic kidney disease (4) CKD (chronic kidney disease) stage 3, GFR 30-59 ml/min Current Visit: Yes Status: Chronic Baseline around 30-40s but has been fluctuating in the past 3 weeks (5) Hypertension Current Visit: Yes Status: Chronic BP stable Qualifiers: Hypertension type: essential hypertension Qualified Code(s): I10 - Essential (primary) hypertension (6) Hyperkalemia Current Visit: Yes Status: Resolved resolved Subjective Principal diagnosis: Foot infection Interval history: Pt seen and examined now extubated more very agitated. s/p 2 sessons of HD so far with a third planned for today Objective - Vital Signs Vital signs: Vital Signs Temp Pulse Resp BP Pulse Ox 11/21/16 08:42 12 95 11/21/16 08:00 97.8 F 91 26 176/65 98 11/21/16 07:50 97.8 F 11/21/16 07:28 192/97 95 11/21/16 07:00 77 12 170/80 95 11/21/16 06:25 12 191/84 99 11/21/16 06:00 70 10 169/79 97 11/21/16 05:00 63 16 160/77 99 11/21/16 04:54 60 11/21/16 04:25 18 144/72 99 11/21/16 04:00 98.2 F 60 15 144/72 99 11/21/16 03:00 61 17 150/83 99 11/21/16 02:33 17 155/114 99 11/21/16 02:00 63 17 148/63 98 11/21/16 01:00 62 17 153/67 99 11/21/16 00:40 98.2 F 11/21/16 00:34 60 11/21/16 00:13 14 144/66 98 11/21/16 00:00 60 15 144/66 98 11/20/16 23:00 63 15 152/74 99 11/20/16 22:25 15 150/67 99 11/20/16 22:00 61 13 150/67 99 11/20/16 21:22 59 11/20/16 21:00 59 13 143/65 99 11/20/16 20:25 15 147/71 99 11/20/16 20:00 98.2 F 58 13 147/71 99 11/20/16 19:00 63 13 145/69 97 11/20/16 18:00 63 16 143/68 97 11/20/16 17:50 14 134/71 98 11/20/16 17:00 67 15 159/72 118 H 11/20/16 16:00 98.7 F 65 14 174/87 99 11/20/16 15:51 15 152/74 99 11/20/16 15:20 98.7 F 11/20/16 15:00 62 15 152/69 98 11/20/16 14:00 60 15 142/64 97 11/20/16 13:25 15 138/66 98 11/20/16 13:10 98.3 F 11 139/66 11/20/16 13:05 118/63 11/20/16 13:00 62 15 121/69 98 11/20/16 12:50 111/62 11/20/16 12:35 117/62 11/20/16 12:20 120/62 11/20/16 12:05 140/71 11/20/16 12:00 98.3 F 61 15 144/74 98 Intake and Output 11/20/16 11/21/16 11/21/16 23:59 07:59 15:59 Intake Total 770 / 770 1074 / 1074 97 / 97 Output Total 150 / 150 950 / 950 Balance 620 / 620 124 / 124 97 / 97 Intake: IV Fluids 405 / 405 727 / 727 FentaNYL (PF) 3,000 MCG 0 / 0 320 / 320 In 0.9 % Sodium Chloride 240 ML @ 50 MCG/HR 5 mls/ hr IVC CONT ALEX Rx#: [id number] Versed 50 MG In 0.9 % 200 / 200 104 / 104 Sodium Chloride 90 ML @ 10 MG/HR 20 mls/hr IVC CONT ALEX Rx#:[id number] Diprivan 1,000 mg In 100 100 / 100 203 / 203 ml @ 5 MCG/KG/MIN 3.309 mls/hr IVC .Q24H LAEX Rx#: [id number] Unasyn 3,000 MG In 0.9 % 100 / 100 Sodium Chloride (Mini-Bag +) 100 ML @ 200 mls/hr IVPB Q12H ALEX Rx#: [id number] Keppra 500 MG In 0.9 % 105 / 105 Sodium Chloride 100 ML @ 400 mls/hr IVPB BID ALEX Rx#:[id number] Tube Feeding 365 / 365 347 / 347 97 / 97 Output: Catheter 150 / 150 950 / 950 Other: Meal Nourishment/Supplement Nourishment/Supplement Stool Size Small Large Smear Stool Consistency soft Stool Color Brown # Bowel Movements 1 # Bowel Movement Diapers 1 Weight 123.286 kg Blood Glucose* 244 230 230 Patient Weight 11/21/16 23:59 Weight 123.286 kg - General Appearance General appearance: Present: chronically ill (NAD) EENT: Present: ATNC, mucous membranes moist Neck: Present: no JVD, supple Additional Comments: improved areation ant bilat Cardiology: Present: edema (less LE/UE/scrotal edema ), normal S1, normal S2 Dialysis Vascular Access: Venous Catheter (temp HD catheter) Gastrointestinal: Present: no tenderness, no guarding, obese Integumentary: Present: warm and dry Neurologic: Present: disoriented Musculoskeletal: Present: no deformities Psychiatric: Present: agitated - Lab 11/22/16 04:12 11/22/16 04:12 Most recent lab results ABG pH 7.41 pH Units (7.32-7.45) 11/21/16 05:18 ABG pCO2 47 mmHg (35-45) H 11/21/16 05:18 ABG pO2 121 mmHg (85-104) H 11/21/16 05:18 ABG HCO3 29.8 mEQ/L (21-27) H 11/21/16 05:18 ABG O2 Saturation 99 % (95-98) H 11/21/16 05:18 Calcium 7.8 mg/dL (8.6-10.8) L 11/21/16 04:20 Phosphorus 7.1 mg/dL (2.3-4.7) H 11/20/16 04:00 Magnesium 2.0 mg/dL (1.6-2.6) 11/19/16 03:18 Urine Creatinine 47 mg/dL 11/12/16 15:20 Urine Sodium 65.0 mEq/L 11/12/16 15:20 Consult Discharge Plan - Plan Referrals: Luba Dorantes, PAC [Physician Head Of Physics] - 11/20/16 11:40 am
--- NOTE | 2016-11-21 11:55 | Palliative Progress Note ---
Date of Encounter: 11/21/16 Time of Encounter: 14:00 - Assessment and plan (1) Generalized pain Current Visit: Yes Status: Acute Assessment and plan: Remains on Fentanyl IV per ICU protocol. Monitor (2) Agitation Current Visit: Yes Status: Acute Assessment and plan: On Precedex at this time. Monitor. Quite restless at this time. (3) Counseling regarding advanced care planning and goals of care Current Visit: Yes Status: Acute Assessment and plan: Patient's niece Kell at bedside. Patient has lived with her the past year. She states that since pt is off vent and alert, although confused, she is not comfortable making any changes regarding code status at this time, and desires him to remain full code. She is hoping his mental status continues to improve and he can make healthcare decisions on his own. Discussed that if pt mental status improves, would also recommend getting healthcare power of research attorney established if he is agreeable to do so. Niece in agreement with this. To remain full code for now. D/W Dr. Baker. 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 Awake and restless. Can squeeze hands on command, but cannot answer any questions at this time. Continues to try and raise up in bed, throwing legs over rails. - Constitutional Vitals: Abnormal lab results RBC 2.99 M/mcL (4.19-5.50) L 11/21/16 04:20 Hgb 8.3 g/dL (12.9-16.9) L 11/21/16 04:20 Hct 25.7 % (37.5-50.1) L 11/21/16 04:20 MCH 27.8 pg (28.0-33.3) L 11/21/16 04:20 RDW 16.3 % (11.5-14.5) H 11/21/16 04:20 Metamyelocytes % 4.0 % (0) H 11/13/16 03:25 Myelocytes % 4.0 % (0) H 11/14/16 03:45 Lymphocytes # 0.2 K/mcL (0.6-4.6) L 11/21/16 04:20 Nucleated RBCs/100 WBC 0.2 /100 WBC (0) H 11/18/16 04:18 Hypersegmented Neuts Present (Not Present) A 11/21/16 04:20 Reactive Lymphocytes Present (Not Present) A 11/13/16 03:25 Toxic Granulation Present (Not Present) A 11/21/16 04:20 Toxic Vacuolation Present (Not Present) A 11/13/16 03:25 Polychromasia 1+ (Not Present) A 11/12/16 05:00 ESR 66 mm/hr (0-10) H 11/12/16 08:30 PT 12.2 Seconds (9.4-12.1) H 11/19/16 03:18 APTT 25.5 Seconds (26.0-36.0) L 11/17/16 21:25 ABG pCO2 47 mmHg (35-45) H 11/21/16 05:18 ABG pO2 121 mmHg (85-104) H 11/21/16 05:18 ABG HCO3 29.8 mEQ/L (21-27) H 11/21/16 05:18 ABG Total CO2 31.2 mEq/L (20-26) H 11/21/16 05:18 ABG O2 Saturation 99 % (95-98) H 11/21/16 05:18 ABG Base Excess 4.6 mEq/L (-2.0 to 3.0) H 11/21/16 05:18 BUN 81 mg/dL (8-26) H 11/21/16 04:20 Creatinine 2.29 mg/dL (0.72-1.25) H 11/21/16 04:20 Est GFR ( Amer) 35 (> 60) L 11/21/16 04:20 Est GFR (Non-Af Amer) 29 (> 60) L 11/21/16 04:20 BUN/Creatinine Ratio 35 (6-26) H 11/21/16 04:20 Glucose 252 mg/dL (70-99) H 11/21/16 04:20 POC Glucose 149 (58-89) H 11/21/16 11:25 Calculated Osmolality 325 (280-300) H 11/21/16 04:20 Lactic Acid 2.6 mmol/L (0.5-2.2) H 11/18/16 13:20 Uric Acid 8.4 mg/dL (3.5-7.2) H 11/12/16 05:03 Calcium 7.8 mg/dL (8.6-10.8) L 11/21/16 04:20 Ionized Calcium 1.01 mmol/L (1.15-1.35) L 11/19/16 03:18 Phosphorus 7.1 mg/dL (2.3-4.7) H 11/20/16 04:00 Troponin I 0.24 ng/mL (0-0.03) H* 11/18/16 04:18 C-Reactive Protein 13 mg/L (Less than 5) H 11/12/16 08:30 B-Natriuretic Peptide 201 pg/mL (0-100) H 11/16/16 Unknown Serum Total Protein 5.9 g/dL (6.0-8.3) L 11/21/16 04:20 Albumin 2.4 g/dL (3.5-5.0) L 11/21/16 04:20 Albumin/Globulin Ratio 0.7 (1.1-2.2) L 11/21/16 04:20 Urine Protein 100 mg/dL (Neg-Trace) H 11/12/16 15:20 Urine Glucose (UA) 250 mg/dL (Normal) H 11/12/16 15:20 Urine Microscopic RBC 3-5 per hpf (0-3) H 11/12/16 15:20 Ur Squamous Epith Cells Moderate per lpf (None-Few) H 11/12/16 15:20 Exam: Not cooperative, restless. - Respiratory Respiratory exam: Present: CTAB - Cardiovascular Cardiovascular exam: Present: +S1, +S2 - GI/Abdominal GI/Abdominal exam: Present: distended, normal bowel sounds, soft - Extremities Exam Additional comments: Dressings to bilateral feet - Patient torn off wound vac, and currently wet to dry dressing in place. - Neurological Exam Neurological exam: Present: alert Additional comments: restless - did squeeze hands upon command but did not follow any other instructions. Moaning at intervals. - Skin Skin exam: Present: dry, pallor, warm Palliative Quality Palliative Quality: Screen for Code Status: Yes, Screen for Goals of Care: Yes, Screen for Pain: Yes, If Pain Regimen Started, Initiate Bowel Regimen: NA, Screen for Nausea/Vomitting: NA - Labs CBC & Chem 7: 11/21/16 04:20 11/21/16 04:20 Labs: Laboratory Results - last 24 hr 11/20/16 11/20/16 11/21/16 15:35 19:58 00:15 WBC RBC Hgb Hct MCV MCH MCHC RDW Plt Count MPV Immature Gran % Seg Neutrophils % Lymphocytes % Monocytes % Eosinophils % Basophils % Neutrophils # Lymphocytes # Monocytes # Eosinophils # Basophils # Hypersegmented Neuts Toxic Granulation Platelet Estimate ABG pH ABG pCO2 ABG pO2 ABG HCO3 ABG Total CO2 ABG O2 Saturation ABG Base Excess Respiration Rate Blood Gas Modality Inspired O2 Tidal Volume PEEP Sodium Potassium Chloride Carbon Dioxide BUN Creatinine Est GFR ( Amer) Est GFR (Non-Af Amer) BUN/Creatinine Ratio Glucose POC Glucose 182 H 244 H 288 H Calculated Osmolality Calcium Total Bilirubin AST ALT Alkaline Phosphatase Serum Total Protein Albumin Globulin Albumin/Globulin Ratio 11/21/16 11/21/16 11/21/16 04:20 04:20 04:24 WBC 7.2 RBC 2.99 L Hgb 8.3 L Hct 25.7 L MCV 86.0 MCH 27.8 L MCHC 32.3 RDW 16.3 H Plt Count 230 MPV 9.6 Immature Gran % 1.1 Seg Neutrophils % 91.8 Lymphocytes % 2.4 Monocytes % 4.7 Eosinophils % 0.0 Basophils % 0.0 Neutrophils # 6.6 Lymphocytes # 0.2 L Monocytes # 0.3 Eosinophils # 0.0 Basophils # 0.0 Hypersegmented Neuts Present A Toxic Granulation Present A Platelet Estimate Normal ABG pH ABG pCO2 ABG pO2 ABG HCO3 ABG Total CO2 ABG O2 Saturation ABG Base Excess Respiration Rate Blood Gas Modality Inspired O2 Tidal Volume PEEP Sodium 141 Potassium 4.3 Chloride 104 Carbon Dioxide 24 BUN 81 H Creatinine 2.29 H Est GFR ( Amer) 35 L Est GFR (Non-Af Amer) 29 L BUN/Creatinine Ratio 35 H Glucose 252 H POC Glucose 252 H Calculated Osmolality 325 H Calcium 7.8 L Total Bilirubin 0.2 AST 8 ALT 22 Alkaline Phosphatase 72 Serum Total Protein 5.9 L Albumin 2.4 L Globulin 3.5 Albumin/Globulin Ratio 0.7 L 11/21/16 11/21/16 11/21/16 05:18 07:28 11:25 WBC RBC Hgb Hct MCV MCH MCHC RDW Plt Count MPV Immature Gran % Seg Neutrophils % Lymphocytes % Monocytes % Eosinophils % Basophils % Neutrophils # Lymphocytes # Monocytes # Eosinophils # Basophils # Hypersegmented Neuts Toxic Granulation Platelet Estimate ABG pH 7.41 ABG pCO2 47 H ABG pO2 121 H ABG HCO3 29.8 H ABG Total CO2 31.2 H ABG O2 Saturation 99 H ABG Base Excess 4.6 H Respiration Rate 12 Blood Gas Modality VCT Inspired O2 40 Tidal Volume 500 PEEP 5 Sodium Potassium Chloride Carbon Dioxide BUN Creatinine Est GFR ( Amer) Est GFR (Non-Af Amer) BUN/Creatinine Ratio Glucose POC Glucose 230 H 149 H Calculated Osmolality Calcium Total Bilirubin AST ALT Alkaline Phosphatase Serum Total Protein Albumin Globulin Albumin/Globulin Ratio - Impressions Impressions Chest X-Ray 11/18/16 08:47 IMPRESSION: 1. Stable support lines and tubes. Right IJ central venous catheter tip projects over the right atrium. 2. Minimal improvement of patchy bilateral airspace opacities, which may reflect improving pulmonary edema or infection. 3. No significant change in small bilateral pleural effusions and bibasilar atelectasis. D/ / 11/18/2016 09:34:45 Chantell Solis MD / damaris Interpreting Provider: Chantell Solis MD Head CT 11/18/16 12:53 IMPRESSION: No acute intracranial abnormality. Unchanged remote left basal ganglia lacunar infarct. D/ / 11/18/2016 14:44:40 Chantell Solis MD / damaris Interpreting Provider: Chantell Solis MD Chest X-Ray 11/20/16 04:00 IMPRESSION: 1. Stable lines and tubes. 2. Interval worsening of bibasilar opacities and bilateral effusions. 3. Mild pulmonary edema. 4. Cardiomegaly. D/ / 11/20/2016 07:30:39 Stella Askew MD / whitney Interpreting Provider: Stella Askew MD Chest X-Ray 11/21/16 04:00 IMPRESSION: Right basilar airspace disease increased. D/ / Jose Slater MD / Jose Slater MD Interpreting Provider: Jose Slater MD - ABG Interpretation ABG results: ABG ABG pH 7.41 pH Units (7.32-7.45) 11/21/16 05:18 ABG pCO2 47 mmHg (35-45) H 11/21/16 05:18 ABG pO2 121 mmHg (85-104) H 11/21/16 05:18 ABG O2 Saturation 99 % (95-98) H 11/21/16 05:18 PT/INR, D-dimer PT 12.2 Seconds (9.4-12.1) H 11/19/16 03:18 Consult Discharge Plan - Plan Referrals: Luba Dorantes, PAC [Physician Textile Converter] - 11/20/16 11:40 am
--- NOTE | 2016-11-21 12:46 | Podiatry Progress Note ---
Date of Encounter: 11/21/16 Time of Encounter: 12:00 - Assessment and Plan (1) Renal failure Current Visit: No Status: Acute 1. Nephrology consulted and following patient. (2) Peripheral vascular disease due to secondary diabetes Current Visit: No Status: Acute 1. ISIDRO of BLE completed on 11/05/16: Right: 0.98 Left: 0.94 (3) Foot ulcer Current Visit: No Status: Chronic 1. Significant improvement in ulceration to the left foot. No erythema, no pus, no odor, no erythema, no streaking. Scant amount of blood observed to dressing. 2. Wound care orders to include cleansing ulcer of left foot daily with mild soap and water, pat dry, apply dry sterile 4x4 gauze with kerlix. 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 s/p incision and drainage to bone cortex for osteomyelitis #5 metatarsal right, open amputation of toe #5 with metatarsal #5 right foot, application wound VAC on 11/06/16. WBC: 11.4 2. Intraop cultures: Proteus Vulgaris, enterococcus faecalis. 3. Patient will need nursing home IV antibiotics x 6 weeks with wound vac changes every M-W-. Wound vac: black sponge, connected to 125 mmhg continuous suction. A wet to dry dressing was applied to right foot today due to patient not being able to follow commands. Will plan to reapply wound vac tomorrow if patient can remain calm and cooperative. 4. Patient will need a f/u with Dr. Pace in wound care with in one week of discharge from the hospital. Subjective Principal diagnosis: Foot infection Interval history: Patient is s/p incision and drainage to bone cortex for osteomyelitis #5 metatarsal right, open amputation of toe #5 with metatarsal #5 right foot, application wound VAC by Dr. Pace on 11/06/16. Patient is still in the ICU and extubated today. Per nurse patient kicked his left foot against the bed yesterday the wound vac and a new vac was applied. She states today the wound vac came off due to patient moving around in bed. Patient appears to be agitated and not following commands. The nurse applied a wet to dry dressing to the right foot. Objective - Vital Signs Vital Signs: Vital Signs Temp Pulse Resp BP Pulse Ox 11/21/16 11:00 81 22 188/89 95 11/21/16 10:00 71 24 165/74 95 11/21/16 09:00 101 24 164/94 95 11/21/16 08:42 12 95 11/21/16 08:00 97.8 F 91 26 176/65 98 11/21/16 07:50 97.8 F 11/21/16 07:28 192/97 95 11/21/16 07:00 77 12 170/80 95 11/21/16 06:25 12 191/84 99 11/21/16 06:00 70 10 169/79 97 11/21/16 05:00 63 16 160/77 99 11/21/16 04:54 60 11/21/16 04:25 18 144/72 99 11/21/16 04:00 98.2 F 60 15 144/72 99 11/21/16 03:00 61 17 150/83 99 11/21/16 02:33 17 155/114 99 11/21/16 02:00 63 17 148/63 98 11/21/16 01:00 62 17 153/67 99 11/21/16 00:40 98.2 F 11/21/16 00:34 60 11/21/16 00:13 14 144/66 98 11/21/16 00:00 60 15 144/66 98 11/20/16 23:00 63 15 152/74 99 11/20/16 22:25 15 150/67 99 11/20/16 22:00 61 13 150/67 99 11/20/16 21:22 59 11/20/16 21:00 59 13 143/65 99 11/20/16 20:25 15 147/71 99 11/20/16 20:00 98.2 F 58 13 147/71 99 11/20/16 19:00 63 13 145/69 97 11/20/16 18:00 63 16 143/68 97 11/20/16 17:50 14 134/71 98 11/20/16 17:00 67 15 159/72 118 H 11/20/16 16:00 98.7 F 65 14 174/87 99 11/20/16 15:51 15 152/74 99 11/20/16 15:20 98.7 F 11/20/16 15:00 62 15 152/69 98 11/20/16 14:00 60 15 142/64 97 11/20/16 13:25 15 138/66 98 11/20/16 13:10 98.3 F 11 139/66 11/20/16 13:05 118/63 11/20/16 13:00 62 15 121/69 98 11/20/16 12:50 111/62 Intake and Output 11/20/16 11/21/16 11/21/16 23:59 07:59 15:59 Intake Total 770 / 770 1074 / 1074 97 / 97 Output Total 150 / 150 950 / 950 Balance 620 / 620 124 / 124 97 / 97 Intake: IV Fluids 405 / 405 727 / 727 FentaNYL (PF) 3,000 MCG 0 / 0 320 / 320 In 0.9 % Sodium Chloride 240 ML @ 50 MCG/HR 5 mls/ hr IVC CONT ALEX Rx#: [id number] Versed 50 MG In 0.9 % 200 / 200 104 / 104 Sodium Chloride 90 ML @ 10 MG/HR 20 mls/hr IVC CONT ALEX Rx#:[id number] Diprivan 1,000 mg In 100 100 / 100 203 / 203 ml @ 5 MCG/KG/MIN 3.309 mls/hr IVC .Q24H ALEX Rx#: [id number] Unasyn 3,000 MG In 0.9 % 100 / 100 Sodium Chloride (Mini-Bag +) 100 ML @ 200 mls/hr IVPB Q12H ALEX Rx#: [id number] Keppra 500 MG In 0.9 % 105 / 105 Sodium Chloride 100 ML @ 400 mls/hr IVPB BID ALEX Rx#:[id number] Tube Feeding 365 / 365 347 / 347 97 / 97 Output: Catheter 150 / 150 950 / 950 Other: Meal Nourishment/Supplement Nourishment/Supplement Stool Size Small Large Smear Stool Consistency soft Stool Color Brown # Bowel Movements 1 # Bowel Movement Diapers 1 Weight 123.286 kg Blood Glucose* 244 230 230 Patient Weight 11/21/16 23:59 Weight 123.286 kg - Exam Exam: General appearance: Intubated and unresponsive. Vascular: Pedal pulses 0/4 DP/PT , No evidence of cyanosis, pallor or rubor, Edema graded at 2+/4, Skin Temperature warm, capillary refill time is immediate to digits. Ulcer: Healing ulceration to the left foot at the fifth metatarsal head plantar aspect measuring 1.8 cm in length x 1.8 cm in width. scant amount of serous drainage observed to dressing. No probe to bone, no odor, no erythema, no streaking, no fluctuance. Post op: Surgical wound to lateral aspect of right foot at the 5th metatarsal head measuring 1.5 cm in length x 1.8cm in width x 1.2 cm in depth, base of wound with fibrous tissue. Sutures loose to distal end of incision line, small area of dehiscence to the proximal end of the incision line. Light periwound erythema, no pus, no odor, no fluctuanc, no streaking. - Lab Result Diagrams: 11/21/16 04:20 11/21/16 04:20 Labs: Abnormal lab results RBC 2.99 M/mcL (4.19-5.50) L 11/21/16 04:20 Hgb 8.3 g/dL (12.9-16.9) L 11/21/16 04:20 Hct 25.7 % (37.5-50.1) L 11/21/16 04:20 MCH 27.8 pg (28.0-33.3) L 11/21/16 04:20 RDW 16.3 % (11.5-14.5) H 11/21/16 04:20 Metamyelocytes % 4.0 % (0) H 11/13/16 03:25 Myelocytes % 4.0 % (0) H 11/14/16 03:45 Lymphocytes # 0.2 K/mcL (0.6-4.6) L 11/21/16 04:20 Nucleated RBCs/100 WBC 0.2 /100 WBC (0) H 11/18/16 04:18 Hypersegmented Neuts Present (Not Present) A 11/21/16 04:20 Reactive Lymphocytes Present (Not Present) A 11/13/16 03:25 Toxic Granulation Present (Not Present) A 11/21/16 04:20 Toxic Vacuolation Present (Not Present) A 11/13/16 03:25 Polychromasia 1+ (Not Present) A 11/12/16 05:00 ESR 66 mm/hr (0-10) H 11/12/16 08:30 PT 12.2 Seconds (9.4-12.1) H 11/19/16 03:18 APTT 25.5 Seconds (26.0-36.0) L 11/17/16 21:25 ABG pCO2 47 mmHg (35-45) H 11/21/16 05:18 ABG pO2 121 mmHg (85-104) H 11/21/16 05:18 ABG HCO3 29.8 mEQ/L (21-27) H 11/21/16 05:18 ABG Total CO2 31.2 mEq/L (20-26) H 11/21/16 05:18 ABG O2 Saturation 99 % (95-98) H 11/21/16 05:18 ABG Base Excess 4.6 mEq/L (-2.0 to 3.0) H 11/21/16 05:18 BUN 81 mg/dL (8-26) H 11/21/16 04:20 Creatinine 2.29 mg/dL (0.72-1.25) H 11/21/16 04:20 Est GFR ( Amer) 35 (> 60) L 11/21/16 04:20 Est GFR (Non-Af Amer) 29 (> 60) L 11/21/16 04:20 BUN/Creatinine Ratio 35 (6-26) H 11/21/16 04:20 Glucose 252 mg/dL (70-99) H 11/21/16 04:20 POC Glucose 149 (58-89) H 11/21/16 11:25 Calculated Osmolality 325 (280-300) H 11/21/16 04:20 Lactic Acid 2.6 mmol/L (0.5-2.2) H 11/18/16 13:20 Uric Acid 8.4 mg/dL (3.5-7.2) H 11/12/16 05:03 Calcium 7.8 mg/dL (8.6-10.8) L 11/21/16 04:20 Ionized Calcium 1.01 mmol/L (1.15-1.35) L 11/19/16 03:18 Phosphorus 7.1 mg/dL (2.3-4.7) H 11/20/16 04:00 Troponin I 0.24 ng/mL (0-0.03) H* 11/18/16 04:18 C-Reactive Protein 13 mg/L (Less than 5) H 11/12/16 08:30 B-Natriuretic Peptide 201 pg/mL (0-100) H 11/16/16 Unknown Serum Total Protein 5.9 g/dL (6.0-8.3) L 11/21/16 04:20 Albumin 2.4 g/dL (3.5-5.0) L 11/21/16 04:20 Albumin/Globulin Ratio 0.7 (1.1-2.2) L 11/21/16 04:20 Urine Protein 100 mg/dL (Neg-Trace) H 11/12/16 15:20 Urine Glucose (UA) 250 mg/dL (Normal) H 11/12/16 15:20 Urine Microscopic RBC 3-5 per hpf (0-3) H 11/12/16 15:20 Ur Squamous Epith Cells Moderate per lpf (None-Few) H 11/12/16 15:20 Consult Discharge Plan - Plan Referrals: Luba Dorantes, PAC [Physician Group Dynamics Instructor] - 11/20/16 11:40 am
--- NOTE | 2016-11-21 16:53 | Neurology Progress Note ---
Date of Encounter: 11/21/16 Time of Encounter: 16:51 Assessment and Plan (1) Cerebral hypoxia Current Visit: Yes Status: Acute Patient did experience some cerebral hypoxia secondary to cardiopulmonary arrest. However, given the fact that he is improving it is suggestive that the alignment of anoxia was not sustained long enough to cause irreversible brain injury. However to what extent he recovers will only be identified over time. He may need cognitive retraining and rehabilitation at an extended care facility. I will follow him peripherally. I recommend maintaining Keppra until discharge. Subjective Principal diagnosis: Foot infection Interval history: Patient seems to make improvements daily. He is extubated and arousable. He is still somewhat somnolent, but he does make eye contact, he is able to speak although her speech is dysarthric. He is also following simple commands. He did ask "what happened"? However, not certain that he fully understands what has happened. Time will tell to what extent he regains neurologic function. He has not had any further seizures however I will recommend maintaining the Keppra until he is discharged from the hospital and remained seizure-free for 3 months. Objective - Constitutional Vitals: Temp Pulse Resp BP Pulse Ox 96.8 F L 61 18 150/61 97 11/21/16 15:47 11/21/16 16:00 11/21/16 16:45 11/21/16 15:00 11/21/16 16:45 - Neurological Exam Motor Examination: Present: other (No focal or lateralized deficits. He moves all 4 extremities.) Posture: Present: other (No posturing is identified today.) Reflex and gait examination: other (Deep tendon reflexes are diminished throughout.) Mental Status Examination: Present: awake, drowsy (He follows some simple commands, but is still confused and not back to his cognitive baseline.), follows simple commands (However does not follow all commands.) Cranial nerve examination: Present: PERRL Results - Laboratory Findings CBC and BMP: 11/21/16 04:20 11/21/16 04:20 Abnormal lab findings: Abnormal lab results RBC 2.99 M/mcL (4.19-5.50) L 11/21/16 04:20 Hgb 8.3 g/dL (12.9-16.9) L 11/21/16 04:20 Hct 25.7 % (37.5-50.1) L 11/21/16 04:20 MCH 27.8 pg (28.0-33.3) L 11/21/16 04:20 RDW 16.3 % (11.5-14.5) H 11/21/16 04:20 Metamyelocytes % 4.0 % (0) H 11/13/16 03:25 Myelocytes % 4.0 % (0) H 11/14/16 03:45 Lymphocytes # 0.2 K/mcL (0.6-4.6) L 11/21/16 04:20 Nucleated RBCs/100 WBC 0.2 /100 WBC (0) H 11/18/16 04:18 Hypersegmented Neuts Present (Not Present) A 11/21/16 04:20 Reactive Lymphocytes Present (Not Present) A 11/13/16 03:25 Toxic Granulation Present (Not Present) A 11/21/16 04:20 Toxic Vacuolation Present (Not Present) A 11/13/16 03:25 Polychromasia 1+ (Not Present) A 11/12/16 05:00 ESR 66 mm/hr (0-10) H 11/12/16 08:30 PT 12.2 Seconds (9.4-12.1) H 11/19/16 03:18 APTT 25.5 Seconds (26.0-36.0) L 11/17/16 21:25 ABG pCO2 47 mmHg (35-45) H 11/21/16 05:18 ABG pO2 121 mmHg (85-104) H 11/21/16 05:18 ABG HCO3 29.8 mEQ/L (21-27) H 11/21/16 05:18 ABG Total CO2 31.2 mEq/L (20-26) H 11/21/16 05:18 ABG O2 Saturation 99 % (95-98) H 11/21/16 05:18 ABG Base Excess 4.6 mEq/L (-2.0 to 3.0) H 11/21/16 05:18 BUN 81 mg/dL (8-26) H 11/21/16 04:20 Creatinine 2.29 mg/dL (0.72-1.25) H 11/21/16 04:20 Est GFR ( Amer) 35 (> 60) L 11/21/16 04:20 Est GFR (Non-Af Amer) 29 (> 60) L 11/21/16 04:20 BUN/Creatinine Ratio 35 (6-26) H 11/21/16 04:20 Glucose 252 mg/dL (70-99) H 11/21/16 04:20 Calculated Osmolality 325 (280-300) H 11/21/16 04:20 Lactic Acid 2.6 mmol/L (0.5-2.2) H 11/18/16 13:20 Uric Acid 8.4 mg/dL (3.5-7.2) H 11/12/16 05:03 Calcium 7.8 mg/dL (8.6-10.8) L 11/21/16 04:20 Ionized Calcium 1.01 mmol/L (1.15-1.35) L 11/19/16 03:18 Phosphorus 7.1 mg/dL (2.3-4.7) H 11/20/16 04:00 Troponin I 0.24 ng/mL (0-0.03) H* 11/18/16 04:18 C-Reactive Protein 13 mg/L (Less than 5) H 11/12/16 08:30 B-Natriuretic Peptide 201 pg/mL (0-100) H 11/16/16 Unknown Serum Total Protein 5.9 g/dL (6.0-8.3) L 11/21/16 04:20 Albumin 2.4 g/dL (3.5-5.0) L 11/21/16 04:20 Albumin/Globulin Ratio 0.7 (1.1-2.2) L 11/21/16 04:20 Urine Protein 100 mg/dL (Neg-Trace) H 11/12/16 15:20 Urine Glucose (UA) 250 mg/dL (Normal) H 11/12/16 15:20 Urine Microscopic RBC 3-5 per hpf (0-3) H 11/12/16 15:20 Ur Squamous Epith Cells Moderate per lpf (None-Few) H 11/12/16 15:20 Consult Discharge Plan - Plan Referrals: Luba Dorantes, PAC [Physician Electroencephalogram Technologist] - 11/20/16 11:40 am
[2016-11-22] MEDS: Insulin LISPRO 300 UNITS/3 ML VIAL SQ SCH ×6 (00:04→20:28)
[2016-11-22] MEDS: Ipratropium/Albuterol Neb 3 ML IH SCH ×6 (03:43→23:40)
[2016-11-22] MEDS: Lacri-Lube 3.5 GM TUBE BOTH EYES SCH ×2 (04:20→09:25)
[2016-11-22] MEDS: FentaNYL (PF) 3,000 MCG in 0.9 % Sodium Chloride 240 ML IVC SCH (04:20)
[2016-11-22 04:33] LABS: Eosinophils # 0.1 K/mcL (0.0-0.6); Hematocrit 25.7 % (37.5-50.1); Immature Granulocytes % 0.6 % (0-4); Lymphocytes # 1.1 K/mcL (0.6-4.6); Lymphocytes % 13.7 %; Mean Corpuscular HGB Conc 31.1 g/dL (31.6-35.5); Mean Corpuscular Hemoglobin 26.9 pg (28.0-33.3); Mean Corpuscular Volume 86.5 fL (83.0-100.0); Mean Platelet Volume 9.5 fL (9.4-12.4); Monocytes # 0.7 K/mcL (0.0-1.3); Monocytes % 8.2 %; Neutrophils # 6.1 K/mcL (1.6-8.9); Platelet Count 172 K/mcL (140-400); Red Blood Count 2.97 M/mcL (4.19-5.50); Red Cell Distribution Width 16.3 % (11.5-14.5); Segmented Neutrophils % 76.5 %
[2016-11-22 04:47] LABS: Albumin 2.4 g/dL (3.5-5.0); Albumin/Globulin Ratio 0.8 (1.1-2.2); Bilirubin,Total 0.3 mg/dL (0.2-1.2); Calcium 8.1 mg/dL (8.6-10.8); Potassium 4.1 mEq/L (3.5-4.5); Total Protein 5.4 g/dL (6.0-8.3)
[2016-11-22] MEDS: *HR* Heparin 5,000 UNIT/ML VIAL SQ SCH ×3 (05:40→23:18)
--- NOTE | 2016-11-22 08:31 | Pulmonology Progress Note ---
<Frankie Baker - Last Filed: 11/22/16 13:42> Date of Encounter: 11/22/16 Time of Encounter: 08:30 Assessment and Plan (1) Acute respiratory failure Current Visit: Yes Status: Acute Resolved. Likely secondary to fluid overload and cardiac arrest. Patient currently has stable vitals with oxygen saturations greater than 90% on room air. Plan: - Continue Respiratory inhalers. - Repeat a.m. labs. Qualifiers: Respiratory failure complication: unspecified whether with hypoxia or hypercapnia Qualified Code(s): J96.00 - Acute respiratory failure, unspecified whether with hypoxia or hypercapnia (2) Cardiac arrest Current Visit: Yes Status: Acute Patient suffered sudden PEA cardiac arrest around 5 PM 11/17/2016. Underwent ACLS for roughly 10 minutes before regaining pulse. He was intubated and transferred to the ICU. Possible contributing factors include significant fluid overload, elevated phosphorus, elevated BUN worsening renal function. Troponin on 11/16/2069 was 0.00, troponins on 11/17/2016 went from 0.02-0.24. Patient remains intubated and sedated. Post cardiac arrest patient demonstrated seizure activity was seen by neurology, EEG was performed which did not demonstrate any seizure activity. 11/20/2016: purposeful movements towards pulling ET tube. Agitated and required continued sedation today. 11/21/2016: Successful extubation. Patient is agitated, started on Fentanyl for LE wound pain and Precedex started with agitation. Glassgow score of 14. Plan to reassess neurological status this afternoon. 11/22/2016 patient is doing well without chest pain chest pressure or palpitations. Clinically improving daily. Plan: - Continue monitoring neurologic status. - Continue to monitor electrolytes and replace as necessary. -Transfer to general medical floor with telemetry. - Palliative care following. (3) Diastolic CHF Current Visit: Yes Status: Acute History of diastolic heart failure, echocardiogram demonstrates LVEF 60-65% normal left ventricular size and systolic function. Indeterminant diastolic function. RV appears mildly dilated with normal function. Mild mitral regurgitation. Mild tricuspid regurgitation. Probable mild pulmonary hypertension. Patient physical examination demonstrates fluid overload with 2+ pitting lower extremity edema. Chest x-ray demonstrates diffuse pulmonary edema. Patient's fluid balance is +13 L. Post PA arrest. Nephrology is on board and plans to hemodialyze the patient Saturday, Saturday, Saturday to remove excess fluid in the setting of worsening renal function. Bilateral lower extremity Dopplers demonstrated normal superficial and deep examination. 11/20/2016: Hemodialysis removed 2600 yesterday. Continues to be volume overloaded, would benefit from another round of dialysis today. 11/21/2016: Hemodialysis removed 4000 yesterday. Volume status much improved. Patient removed hemodialysis catheter. We will monitor status as he is clinically improved. Continues to have appropriate urinary output. Patient stable. 11/22/2016 patient removed HD catheter yesterday along with his PICC line. Will not place another HD catheter at this time as he has appropriate urinary output. Will continue to treat his fluid overload. Plan: - Strict ins and outs, daily weights - Continue Lasix. - Continue cardiac meds including statin, beta kavita and aspirin. - Cardiac diet Qualifiers: Qualified Code(s): I50.30 - Unspecified diastolic (congestive) heart failure (4) Seizure Current Visit: Yes Status: Acute Seizure activity secondary to cardiac arrest and 10 minutes of ACLS CPR. Neurology is following the patient. EEG was negative for seizure activity. Continue Keppra 500 mg IV twice a day, continue with diazepam IV. Neurology will continue to follow the patient. Continue seizure precautions. Head CT performed 11/18/2016 demonstrates no acute intracranial abnormalities. Unchanged remote left basal ganglion lacunar infarct. 11/21/2016: Awake, alert but continues to be agitated. No seizure activity seen today. 11/22/2016 over awake, no seizure activity. Plan: - Continue Keppra (5) Acute kidney injury superimposed on chronic kidney disease Current Visit: Yes Status: Acute Patient has underlining chronic kidney disease with diminished renal function and fluid overload. Hemodialysis catheter placed on 11/19/2016 and underwent HD on 11/19/2016. Patient removed hemodialysis catheter today. Creatinine 2.29 and GFR 29, which is greatly improved likely secondary to hemodialysis. We will continue Lasix diuresis and monitor renal function. 11/22/16: Renal function continues to improve with creatinine at 2.0, GFR 34. BUN continues to rise at 90, questionable catabolic activity. No signs of GI bleed. We will continue to monitor at this time. Plan: - Continue Lasix 40 mg twice a day. - Monitor renal function with daily labs. -Avoid nephrotoxic medications and renally dose antibiotics. 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 Right foot wound culture demonstrates Proteus vulgaris, enterococcus bacillus with sensitivities to current antibiotics. Left foot ulcer is superficial dressing changes are done at bedside per wound care. 11/21/2016: Patient was extubated and became agitated taking bed knocking off wound VAC. Dislodged a few stitches in his right lateral foot. Podiatry was called to evaluate patient foot. 11/22/2016 patient's foot is wrapped, no signs of drainage. Plan: - Continue Unasyn 3000 mg every 12 hours. -Continue wound care and wound VAC per wound care Management (7) Osteomyelitis of foot, right, acute Current Visit: Yes Status: Acute s/p incision and drainage to bone cortex for osteomyelitis #5 metatarsal right, open amputation of toe #5 with metatarsal #5 right foot, application wound VAC on 11/06/16. Will require 6 weeks antibiotic coverage. Continue current antibiotics as listed above. (8) Diabetes mellitus Current Visit: Yes Status: Acute Insulin dependent diabetic on Januvia, Lantus 80 units subcutaneous twice a day , at home. Patient is currently intubated and NPO. Continue every 6 hour glucose checks and sliding scale insulin. Glucose slightly elevated likely secondary to Solu-Medrol. Glucose goal range 140-180. Plan: - Continue inpatient sliding scale insulin and Levemir - Before meals at bedtime glucose checks with by mouth intake. Qualifiers: Qualified Code(s): E11.9 - Type 2 diabetes mellitus without complications (9) Hypertension Current Visit: Yes Status: Chronic Patient has a HTN with elevated blood pressures throughout inpatient stay. Increased Norvasc today to 10mg with continued elevated blood pressures and not on pressure support. 11/22/2016 patient continues to have elevated blood pressures. Will add home dose of HCTZ Plan: - Hydrochlorothiazide 25 mg by mouth daily - Continue monitoring blood pressure. Qualifiers: Hypertension type: essential hypertension Qualified Code(s): I10 - Essential (primary) hypertension (10) DVT prophylaxis Current Visit: Yes Status: Acute Continue heparin 5000 units subcutaneous every 8 hours. Subjective Principal diagnosis: Foot infection Interval history: Mr. Regalado has been seen and evaluated at patient bedside this morning. He is awake alert oriented in no acute distress. He denies any pain including chest pain, chest pressure, palpitations, shortness of breath, abdominal pain, nausea vomiting diarrhea or constipation. He has not a bowel movement yet but is passing gas. He has not been hungry but is willing to try oral intake. He is feeling better compared to yesterday after extubation. Following commands appropriately. Objective PUL Vital signs: Last Vital Signs Temp 97.5 F L 11/22/16 07:35 Pulse 66 11/22/16 06:00 Resp 16 11/22/16 06:00 BP 150/92 11/22/16 06:00 Pulse Ox 95 11/22/16 06:00 Gen: Well-developed well-nourished, calm, responding to verbal commands. HEENT: Normocephalic atraumatic, pupils are symmetric, equal reactive to light, Oral mucosa dry. Neck is supple trachea is midline. No crepitus or lymphadenopathy appreciated on palpation. Chest: Symmetric bilateral correlating with respiratory effort. Cardiac: Regular rate and rhythm with grade 2/6 systolic ejection murmur. Upper extremity capillary refill is 2+ bilateral. Diminished bilateral posterior tibial pulses. Feet are warm to touch. Respiratory: Crackles appreciated bilateral lung bases. . Abdomen: Distended, patient responds with arm movements and opening eyes with palpation of the abdomen. Hypoactive bowel sounds. Extremities patient has diffuse 2+ pitting edema in all 4 extremities. Right foot is wrapped with wound VAC on lateral aspect. Fifth right LE digit amputation with wound VAC Wound demonstrates bloody drainage and appropriate healing without surrounding erythema or edema. Third right LE digit previously amputated. Left diabetic foot ulcer wrapped without any signs of surrounding cellulitis. Distal S2 tibial and dorsal pedal pulses very poor. Distal toes are pale in color with poor toenail care. Skin: Diffuse anasarca, improving. Results - Laboratory Findings CBC and BMP: 11/22/16 04:12 11/22/16 04:12 ABG ABG pH 7.41 pH Units (7.32-7.45) 11/21/16 05:18 ABG pCO2 47 mmHg (35-45) H 11/21/16 05:18 ABG pO2 121 mmHg (85-104) H 11/21/16 05:18 ABG O2 Saturation 99 % (95-98) H 11/21/16 05:18 PT/INR, D-dimer PT 12.2 Seconds (9.4-12.1) H 11/19/16 03:18 Abnormal lab findings: Abnormal lab results RBC 2.97 M/mcL (4.19-5.50) L 11/22/16 04:12 Hgb 8.0 g/dL (12.9-16.9) L 11/22/16 04:12 Hct 25.7 % (37.5-50.1) L 11/22/16 04:12 MCH 26.9 pg (28.0-33.3) L 11/22/16 04:12 MCHC 31.1 g/dL (31.6-35.5) L 11/22/16 04:12 RDW 16.3 % (11.5-14.5) H 11/22/16 04:12 Metamyelocytes % 4.0 % (0) H 11/13/16 03:25 Myelocytes % 4.0 % (0) H 11/14/16 03:45 Nucleated RBCs/100 WBC 0.2 /100 WBC (0) H 11/18/16 04:18 Hypersegmented Neuts Present (Not Present) A 11/21/16 04:20 Reactive Lymphocytes Present (Not Present) A 11/13/16 03:25 Toxic Granulation Present (Not Present) A 11/21/16 04:20 Toxic Vacuolation Present (Not Present) A 11/13/16 03:25 Polychromasia 1+ (Not Present) A 11/12/16 05:00 ESR 66 mm/hr (0-10) H 11/12/16 08:30 PT 12.2 Seconds (9.4-12.1) H 11/19/16 03:18 APTT 25.5 Seconds (26.0-36.0) L 11/17/16 21:25 ABG pCO2 47 mmHg (35-45) H 11/21/16 05:18 ABG pO2 121 mmHg (85-104) H 11/21/16 05:18 ABG HCO3 29.8 mEQ/L (21-27) H 11/21/16 05:18 ABG Total CO2 31.2 mEq/L (20-26) H 11/21/16 05:18 ABG O2 Saturation 99 % (95-98) H 11/21/16 05:18 ABG Base Excess 4.6 mEq/L (-2.0 to 3.0) H 11/21/16 05:18 BUN 90 mg/dL (8-26) H 11/22/16 04:12 Creatinine 2.00 mg/dL (0.72-1.25) H 11/22/16 04:12 Est GFR ( Amer) 41 (> 60) L 11/22/16 04:12 Est GFR (Non-Af Amer) 34 (> 60) L 11/22/16 04:12 BUN/Creatinine Ratio 45 (6-26) H 11/22/16 04:12 POC Glucose 100 (58-89) H 11/22/16 06:58 Calculated Osmolality 325 (280-300) H 11/22/16 04:12 Lactic Acid 2.6 mmol/L (0.5-2.2) H 11/18/16 13:20 Uric Acid 8.4 mg/dL (3.5-7.2) H 11/12/16 05:03 Calcium 8.1 mg/dL (8.6-10.8) L 11/22/16 04:12 Ionized Calcium 1.01 mmol/L (1.15-1.35) L 11/19/16 03:18 Phosphorus 7.1 mg/dL (2.3-4.7) H 11/20/16 04:00 Troponin I 0.24 ng/mL (0-0.03) H* 11/18/16 04:18 C-Reactive Protein 13 mg/L (Less than 5) H 11/12/16 08:30 B-Natriuretic Peptide 201 pg/mL (0-100) H 11/16/16 Unknown Serum Total Protein 5.4 g/dL (6.0-8.3) L 11/22/16 04:12 Albumin 2.4 g/dL (3.5-5.0) L 11/22/16 04:12 Albumin/Globulin Ratio 0.8 (1.1-2.2) L 11/22/16 04:12 Urine Protein 100 mg/dL (Neg-Trace) H 11/12/16 15:20 Urine Glucose (UA) 250 mg/dL (Normal) H 11/12/16 15:20 Urine Microscopic RBC 3-5 per hpf (0-3) H 11/12/16 15:20 Ur Squamous Epith Cells Moderate per lpf (None-Few) H 11/12/16 15:20 - Clinical Findings Intake & Output: Intake & Output 11/21/16 11/22/16 11/22/16 23:59 07:59 15:59 Intake Total 1408.0 / 1408.0 1573 / 1573 Output Total 500 / 500 1025 / 1025 Balance 908.0 / 908.0 548 / 548 Weight 118.388 kg 120.8 kg Consult Discharge Plan - Plan Referrals: Luba Dorantes, PAC [Physician Manager Proposal] - 11/20/16 11:40 am <Ariana Hawthorne - Last Filed: 11/22/16 17:08> Objective PUL Vital signs: Last Vital Signs Temp 97.9 F 11/22/16 16:00 Pulse 61 11/22/16 16:00 Resp 20 11/22/16 16:06 BP 162/65 11/22/16 16:00 Pulse Ox 94 L 11/22/16 16:06 Results - Laboratory Findings CBC and BMP: 11/22/16 04:12 11/22/16 04:12 ABG ABG pH 7.41 pH Units (7.32-7.45) 11/21/16 05:18 ABG pCO2 47 mmHg (35-45) H 11/21/16 05:18 ABG pO2 121 mmHg (85-104) H 11/21/16 05:18 ABG O2 Saturation 99 % (95-98) H 11/21/16 05:18 PT/INR, D-dimer PT 12.2 Seconds (9.4-12.1) H 11/19/16 03:18 Abnormal lab findings: Abnormal lab results RBC 2.97 M/mcL (4.19-5.50) L 11/22/16 04:12 Hgb 8.0 g/dL (12.9-16.9) L 11/22/16 04:12 Hct 25.7 % (37.5-50.1) L 11/22/16 04:12 MCH 26.9 pg (28.0-33.3) L 11/22/16 04:12 MCHC 31.1 g/dL (31.6-35.5) L 11/22/16 04:12 RDW 16.3 % (11.5-14.5) H 11/22/16 04:12 Metamyelocytes % 4.0 % (0) H 11/13/16 03:25 Myelocytes % 4.0 % (0) H 11/14/16 03:45 Nucleated RBCs/100 WBC 0.2 /100 WBC (0) H 11/18/16 04:18 Hypersegmented Neuts Present (Not Present) A 11/21/16 04:20 Reactive Lymphocytes Present (Not Present) A 11/13/16 03:25 Toxic Granulation Present (Not Present) A 11/21/16 04:20 Toxic Vacuolation Present (Not Present) A 11/13/16 03:25 Polychromasia 1+ (Not Present) A 11/12/16 05:00 ESR 66 mm/hr (0-10) H 11/12/16 08:30 PT 12.2 Seconds (9.4-12.1) H 11/19/16 03:18 APTT 25.5 Seconds (26.0-36.0) L 11/17/16 21:25 ABG pCO2 47 mmHg (35-45) H 11/21/16 05:18 ABG pO2 121 mmHg (85-104) H 11/21/16 05:18 ABG HCO3 29.8 mEQ/L (21-27) H 11/21/16 05:18 ABG Total CO2 31.2 mEq/L (20-26) H 11/21/16 05:18 ABG O2 Saturation 99 % (95-98) H 11/21/16 05:18 ABG Base Excess 4.6 mEq/L (-2.0 to 3.0) H 11/21/16 05:18 BUN 90 mg/dL (8-26) H 11/22/16 04:12 Creatinine 2.00 mg/dL (0.72-1.25) H 11/22/16 04:12 Est GFR ( Amer) 41 (> 60) L 11/22/16 04:12 Est GFR (Non-Af Amer) 34 (> 60) L 11/22/16 04:12 BUN/Creatinine Ratio 45 (6-26) H 11/22/16 04:12 Calculated Osmolality 325 (280-300) H 11/22/16 04:12 Lactic Acid 2.6 mmol/L (0.5-2.2) H 11/18/16 13:20 Uric Acid 8.4 mg/dL (3.5-7.2) H 11/12/16 05:03 Calcium 8.1 mg/dL (8.6-10.8) L 11/22/16 04:12 Ionized Calcium 1.01 mmol/L (1.15-1.35) L 11/19/16 03:18 Phosphorus 7.1 mg/dL (2.3-4.7) H 11/20/16 04:00 Troponin I 0.24 ng/mL (0-0.03) H* 11/18/16 04:18 C-Reactive Protein 13 mg/L (Less than 5) H 11/12/16 08:30 B-Natriuretic Peptide 201 pg/mL (0-100) H 11/16/16 Unknown Serum Total Protein 5.4 g/dL (6.0-8.3) L 11/22/16 04:12 Albumin 2.4 g/dL (3.5-5.0) L 11/22/16 04:12 Albumin/Globulin Ratio 0.8 (1.1-2.2) L 11/22/16 04:12 Urine Protein 100 mg/dL (Neg-Trace) H 11/12/16 15:20 Urine Glucose (UA) 250 mg/dL (Normal) H 11/12/16 15:20 Urine Microscopic RBC 3-5 per hpf (0-3) H 11/12/16 15:20 Ur Squamous Epith Cells Moderate per lpf (None-Few) H 11/12/16 15:20 - Clinical Findings Intake & Output: Intake & Output 11/22/16 11/22/16 11/22/16 07:59 15:59 23:59 Intake Total 1573 / 1573 1000 / 1000 Output Total 1025 / 1025 1325 / 1325 Balance 548 / 548 -325 / -325 Weight 120.8 kg - Attending Attestation I examined this patient and my medical decision-making was reviewed with the RENAL DIALYSIS RN/PA/Advanced Practice Nurse/Resident Physician. I agree with the documented findings, disposition and treatment plan as described except to the extent set forth below. Patient seen and examined. Labs, radiology, chart personally reviewed. 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 Pulmonary: Acceptable oxygenation and ventilation Cardiovascular: stable GI: Nutrition per dietary and GI prophylaxis per routine Heme: DVT prophylaxis per routine Renal; urine out put and renal funtion reviewed. Nephrology follow-up Endorcine: blood glucose is monitored Lines: all lines checked and no evidence of infections Skin: skin care to prevent pressure ulcers per nursing routine care Patient stable to be transferred to the floor
[2016-11-22] MEDS: Pantoprazole 40 MG VIAL IVP SCH (09:30)
[2016-11-22] MEDS: Furosemide 40 MG/4 ML VIAL IVP SCH ×2 (09:30→21:26)
[2016-11-22] MEDS: amLODIPine 5 MG TABLET PO SCH (09:31)
[2016-11-22] MEDS: Chlorhexidine Rinse 15 ML MOUTHWASH MM SCH (09:31)
[2016-11-22] MEDS: Aspirin Enteric Coated 81 MG Tablet PO SCH (09:31)
[2016-11-22] MEDS: Nicotine 21 MG PATCH.TD24 TD SCH (09:32)
[2016-11-22] MEDS: Insulin DETEMIR 100 UNIT/ML X5UNITS SQ SCH ×2 (09:35→21:25)
[2016-11-22] MEDS: Ampicillin/Sulbactam 3,000 MG in 0.9 % Sodium Chloride Mini Bag 100 ML IVPB SCH ×2 (12:42→23:18)
--- NOTE | 2016-11-22 13:24 | Event Note ---
Date of Encounter: 11/22/16 Time of Encounter: 10:50 Patient alert and oriented to name, place and situation. Able to tell me his primary physician, who he lives with and other questions appropriately, however has "lost" the last few days and inquiring as to what happened. UPdated him on clinical status. Discussed goals of care. At this point, he states he desires to stay full code and would desire short term intubation if needed. However, he would not want [facility] life support, trach or feeding tube. He states he does not think he would desire [employer] professional dialysis if his kidney function declined to that point. 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 Nephew Lorne llanos as alternate. Copies of POA provided to family and copy placed her on medical record. Palliative currently not managing any symptoms and will sign off. Re-consult as needed. Thank You
[2016-11-22] MEDS ORDERED: 0.9 % Sodium Chloride 1,000 ML PRIME SCH (14:08)
[2016-11-22] MEDS ORDERED: 0.9 % Sodium Chloride 250 ML IV PRN (14:08)
[2016-11-22] MEDS ORDERED: *HR* Dextrose 50 % in Water (Syg) 50 ML SYRINGE IVP PRN (14:08)
[2016-11-22] MEDS ORDERED: Naloxone 0.4 MG/ML INJ IVP PRN (14:08)
[2016-11-22] MEDS ORDERED: D5% in Water 1,000 ML IV PRN (14:08)
[2016-11-22] MEDS ORDERED: *HR* OxyCODONE/APAP 10/325 TABLET PO PRN (14:08)
[2016-11-22] MEDS ORDERED: Dextrose Gel 15 GM PO PRN ×2 (14:08)
[2016-11-22] MEDS: *HR* OxyCODONE/APAP 10/325 TABLET PO PRN ×3 (14:34→21:56)
--- NOTE | 2016-11-22 15:49 | Podiatry Progress Note ---
Date of Encounter: 11/22/16 Time of Encounter: 12:15 - Assessment and Plan (1) Renal failure Current Visit: No Status: Acute 1. Nephrology consulted and following patient. (2) Peripheral vascular disease due to secondary diabetes Current Visit: No Status: Acute 1. ISIDRO of BLE completed on 11/05/16: Right: 0.98 Left: 0.94 (3) Foot ulcer Current Visit: No Status: Chronic 1. Significant improvement in ulceration to the left foot. Continue wound care as ordered. Qualifiers: Laterality: right Non-pressure ulcer stage: with fat layer exposed Qualified Code(s): L97.512 - Non-pressure chronic ulcer of other part of right foot with fat layer exposed (4) Diabetes mellitus with neuropathy Current Visit: Yes Status: Chronic Qualifiers: Diabetes mellitus type: type 2 Diabetes mellitus correction insulin use: with correction use Qualified Code(s): E11.40 - Type 2 diabetes mellitus with diabetic neuropathy, unspecified; Z79.4 - senior care (current) use of insulin (5) Osteomyelitis of foot, right, acute Current Visit: Yes Status: Acute 1. s/p incision and drainage to bone cortex for osteomyelitis #5 metatarsal right, open amputation of toe #5 with metatarsal #5 right foot, application wound VAC on 11/06/16. 2. Intraop cultures: Proteus Vulgaris, enterococcus faecalis. WBC: 8, will recheck an ESR and CRP. 3. Patient will need long term care social worker IV antibiotics x 6 weeks with wound vac changes every M-W-. Wound vac: black sponge, connected to 125 mmhg continuous suction. Wound vac reapplied today by nurse. 4. Patient will need a f/u with Dr. Pace in wound care with in one week of discharge from the hospital. 5. Protective weight bearing with walker and cam boot. Subjective Principal diagnosis: Foot infection Interval history: Patient is s/p incision and drainage to bone cortex for osteomyelitis #5 metatarsal right, open amputation of toe #5 with metatarsal #5 right foot, application wound VAC by Dr. Pace on 11/06/16. Patient is still in the ICU and extubated yesterday. Patient was very agitated yesterday and could not tolerate the wound vac. A wet to dry dressing was ordered until patient was calm and cooperative to apply wound vac. Upon arrival to unit today patient was lying in bed with the wound vac intact to the right foot. He is calm and cooperative. He denies any pain in his feet. The wound vac was applied by the nurse today. Objective - Vital Signs Vital Signs: Vital Signs Temp Pulse Resp BP Pulse Ox 11/22/16 15:00 62 20 145/70 94 L 11/22/16 14:28 64 20 154/74 92 L 11/22/16 13:00 70 20 181/70 91 L 11/22/16 12:16 20 94 L 11/22/16 12:00 97.5 F L 71 20 169/72 94 L 11/22/16 11:59 97.5 F L 11/22/16 11:00 71 20 179/87 94 L 11/22/16 10:00 70 18 168/76 96 11/22/16 09:00 72 16 146/86 96 11/22/16 08:00 69 16 143/68 93 L 11/22/16 07:35 97.5 F L 11/22/16 07:00 68 16 146/101 93 L 11/22/16 06:00 66 16 150/92 95 11/22/16 05:00 62 14 162/82 96 11/22/16 04:39 54 11/22/16 04:20 97.4 F L 11/22/16 04:00 52 17 156/76 97 11/22/16 03:44 17 96 11/22/16 03:00 54 16 161/80 98 11/22/16 02:00 53 15 149/74 97 11/22/16 01:00 97.2 F L 52 16 158/77 95 11/22/16 00:26 52 11/22/16 00:00 51 16 156/76 97 11/21/16 23:34 17 98 11/21/16 23:00 52 17 153/77 94 L 11/21/16 22:00 53 17 138/65 98 11/21/16 21:40 96.3 F L 11/21/16 21:00 54 18 145/94 96 11/21/16 20:00 55 15 161/80 94 L 11/21/16 19:58 18 98 11/21/16 17:00 59 18 91 L 11/21/16 16:45 18 97 11/21/16 16:00 61 18 97 02/15/17 15:47 96.8 F L Intake and Output 11/21/16 11/22/16 11/22/16 23:59 07:59 15:59 Intake Total 1408.0 / 1408.0 1573 / 1573 1000 / 1000 Output Total 500 / 500 1025 / 1025 1325 / 1325 Balance 908.0 / 908.0 548 / 548 -325 / -325 Intake: IV Fluids 408.0 / 408.0 73 / 73 PRECEDEX 400 mcg In 100 150.0 / 150.0 30 / 30 ml @ Per Protocol IVC . Q0M ALEX Rx#:[id number] FentaNYL (PF) 3,000 MCG 53 / 53 43 / 43 In 0.9 % Sodium Chloride 240 ML @ 50 MCG/HR 5 mls/ hr IVC CONT ALEX Rx#: [id number] Unasyn 3,000 MG In 0.9 % 100 / 100 Sodium Chloride (Mini-Bag +) 100 ML @ 200 mls/hr IVPB Q12H ALEX Rx#: [id number] Keppra 500 MG In 0.9 % 105 / 105 Sodium Chloride 100 ML @ 400 mls/hr IVPB BID ALEX Rx#:[id number] Oral 1000 / 1000 1500 / 1500 1000 / 1000 Output: Catheter 500 / 500 1025 / 1025 1325 / 1325 Other: Stool Size Small Stool Consistency formed Stool Characteristics Normal for Patient Stool Color Brown # Bowel Movement Diapers 1 Weight 118.388 kg 120.8 kg Blood Glucose* 86 100 116 Patient Weight 11/22/16 23:59 Weight 120.8 kg - Exam Exam: General appearance: Intubated and unresponsive. Vascular: Pedal pulses 0/4 DP/PT , No evidence of cyanosis, pallor or rubor, Edema graded at 2+/4, Skin Temperature warm, capillary refill time is immediate to digits. Ulcer: Left foot; dressing dry and intact. Post op: Wound VAC intact to right foot with black sponge, 125 mmhg continuous suction. Light periwound erythema, no streaking, no lymphangitis, no purulent drainage, no fluctuance, no warmth. No drainage to wound vac chamber - Lab Result Diagrams: 11/22/16 04:12 11/22/16 04:12 Labs: Abnormal lab results RBC 2.97 M/mcL (4.19-5.50) L 11/22/16 04:12 Hgb 8.0 g/dL (12.9-16.9) L 11/22/16 04:12 Hct 25.7 % (37.5-50.1) L 11/22/16 04:12 MCH 26.9 pg (28.0-33.3) L 11/22/16 04:12 MCHC 31.1 g/dL (31.6-35.5) L 11/22/16 04:12 RDW 16.3 % (11.5-14.5) H 11/22/16 04:12 Metamyelocytes % 4.0 % (0) H 11/13/16 03:25 Myelocytes % 4.0 % (0) H 11/14/16 03:45 Nucleated RBCs/100 WBC 0.2 /100 WBC (0) H 11/18/16 04:18 Hypersegmented Neuts Present (Not Present) A 11/21/16 04:20 Reactive Lymphocytes Present (Not Present) A 11/13/16 03:25 Toxic Granulation Present (Not Present) A 11/21/16 04:20 Toxic Vacuolation Present (Not Present) A 11/13/16 03:25 Polychromasia 1+ (Not Present) A 11/12/16 05:00 ESR 66 mm/hr (0-10) H 11/12/16 08:30 PT 12.2 Seconds (9.4-12.1) H 11/19/16 03:18 APTT 25.5 Seconds (26.0-36.0) L 11/17/16 21:25 ABG pCO2 47 mmHg (35-45) H 11/21/16 05:18 ABG pO2 121 mmHg (85-104) H 11/21/16 05:18 ABG HCO3 29.8 mEQ/L (21-27) H 11/21/16 05:18 ABG Total CO2 31.2 mEq/L (20-26) H 11/21/16 05:18 ABG O2 Saturation 99 % (95-98) H 11/21/16 05:18 ABG Base Excess 4.6 mEq/L (-2.0 to 3.0) H 11/21/16 05:18 BUN 90 mg/dL (8-26) H 11/22/16 04:12 Creatinine 2.00 mg/dL (0.72-1.25) H 11/22/16 04:12 Est GFR ( Amer) 41 (> 60) L 11/22/16 04:12 Est GFR (Non-Af Amer) 34 (> 60) L 11/22/16 04:12 BUN/Creatinine Ratio 45 (6-26) H 11/22/16 04:12 Calculated Osmolality 325 (280-300) H 11/22/16 04:12 Lactic Acid 2.6 mmol/L (0.5-2.2) H 11/18/16 13:20 Uric Acid 8.4 mg/dL (3.5-7.2) H 11/12/16 05:03 Calcium 8.1 mg/dL (8.6-10.8) L 11/22/16 04:12 Ionized Calcium 1.01 mmol/L (1.15-1.35) L 11/19/16 03:18 Phosphorus 7.1 mg/dL (2.3-4.7) H 11/20/16 04:00 Troponin I 0.24 ng/mL (0-0.03) H* 11/18/16 04:18 C-Reactive Protein 13 mg/L (Less than 5) H 11/12/16 08:30 B-Natriuretic Peptide 201 pg/mL (0-100) H 11/16/16 Unknown Serum Total Protein 5.4 g/dL (6.0-8.3) L 11/22/16 04:12 Albumin 2.4 g/dL (3.5-5.0) L 11/22/16 04:12 Albumin/Globulin Ratio 0.8 (1.1-2.2) L 11/22/16 04:12 Urine Protein 100 mg/dL (Neg-Trace) H 11/12/16 15:20 Urine Glucose (UA) 250 mg/dL (Normal) H 11/12/16 15:20 Urine Microscopic RBC 3-5 per hpf (0-3) H 11/12/16 15:20 Ur Squamous Epith Cells Moderate per lpf (None-Few) H 11/12/16 15:20 Consult Discharge Plan - Plan Referrals: Luba Dorantes, PAC [Physician Staying Machine Operator] - 11/20/16 11:40 am
--- NOTE | 2016-11-22 17:49 | Nephrology Progress Note ---
Date of Encounter: 11/22/16 Time of Encounter: 10:30 - Assessment and Plan (1) Acute respiratory failure Current Visit: Yes Status: Resolved s/p extubation, doing well Limit obligate fluids if possible Qualifiers: Qualified Code(s): J96.00 - Acute respiratory failure, unspecified whether with hypoxia or hypercapnia (2) Acute kidney injury superimposed on chronic kidney disease Current Visit: Yes Status: Acute SCr still improving without HD yesterday at 2.0, GFR 34, Will hold HD today and reassess need tomorrow UOP remains very good Lytes stable Avoid nephrotoxins if possible (3) Anemia Current Visit: Yes Status: Acute Hgb noted at 8.7, improving with fluid removal, will monitor. Transfusion paramenters per primary team Qualifiers: Qualified Code(s): N18.9 - Chronic kidney disease, unspecified; D63.1 - Anemia in chronic kidney disease (4) CKD (chronic kidney disease) stage 3, GFR 30-59 ml/min Current Visit: Yes Status: Chronic Baseline around 30-40s but has been fluctuating in the past 3 weeks (5) Hypertension Current Visit: Yes Status: Chronic BP stable Qualifiers: Qualified Code(s): I10 - Essential (primary) hypertension (6) Hyperkalemia Current Visit: Yes Status: Resolved resolved Subjective Principal diagnosis: Foot infection Interval history: Pt seen and examined more awake and communicative. HD held yesterday as pt pulled out his temp HD line. Objective - Vital Signs Vital signs: Vital Signs Temp Pulse Resp BP Pulse Ox 11/22/16 16:06 20 94 L 11/22/16 16:00 97.9 F 61 26 162/65 100 11/22/16 15:00 62 20 145/70 94 L 11/22/16 14:28 64 20 154/74 92 L 11/22/16 13:00 70 20 181/70 91 L 11/22/16 12:16 20 94 L 11/22/16 12:00 97.5 F L 71 20 169/72 94 L 11/22/16 11:59 97.5 F L 11/22/16 11:00 71 20 179/87 94 L 11/22/16 10:00 70 18 168/76 96 11/22/16 09:00 72 16 146/86 96 11/22/16 08:00 69 16 143/68 93 L 11/22/16 07:35 97.5 F L 11/22/16 07:00 68 16 146/101 93 L 11/22/16 06:00 66 16 150/92 95 11/22/16 05:00 62 14 162/82 96 11/22/16 04:39 54 11/22/16 04:20 97.4 F L 11/22/16 04:00 52 17 156/76 97 11/22/16 03:44 17 96 11/22/16 03:00 54 16 161/80 98 11/22/16 02:00 53 15 149/74 97 11/22/16 01:00 97.2 F L 52 16 158/77 95 11/22/16 00:26 52 11/22/16 00:00 51 16 156/76 97 11/21/16 23:34 17 98 11/21/16 23:00 52 17 153/77 94 L 11/21/16 22:00 53 17 138/65 98 11/21/16 21:40 96.3 F L 11/21/16 21:00 54 18 145/94 96 11/21/16 20:00 55 15 161/80 94 L 11/21/16 19:58 18 98 Intake and Output 11/22/16 11/22/16 11/22/16 07:59 15:59 23:59 Intake Total 1573 / 1573 1000 / 1000 Output Total 1025 / 1025 1325 / 1325 Balance 548 / 548 -325 / -325 Intake: IV Fluids 73 / 73 PRECEDEX 400 mcg In 100 30 / 30 ml @ Per Protocol IVC . Q0M ALEX Rx#:[id number] FentaNYL (PF) 3,000 MCG 43 / 43 In 0.9 % Sodium Chloride 240 ML @ 50 MCG/HR 5 mls/ hr IVC CONT ALEX Rx#: [id number] Oral 1500 / 1500 1000 / 1000 Output: Catheter 1025 / 1025 1325 / 1325 Other: Stool Size Small Stool Consistency formed Stool Characteristics Normal for Patient Stool Color Brown # Bowel Movement Diapers 1 Weight 120.8 kg Blood Glucose* 100 116 84 Patient Weight 11/22/16 23:59 Weight 120.8 kg - General Appearance General appearance: Present: appears started age (NAD) EENT: Present: ATNC, mucous membranes moist Neck: Present: supple Respiratory: Present: clear Cardiology: Present: edema (less LE edema bilat), normal S1, normal S2 Gastrointestinal: Present: no tenderness, no guarding Integumentary: Present: warm and dry Neurologic: Present: no focal deficit Musculoskeletal: Present: no deformities Psychiatric: Present: mood/affect appropriate, cooperative - Lab 11/28/16 03:45 11/28/16 03:45 Most recent lab results ABG pH 7.41 pH Units (7.32-7.45) 11/21/16 05:18 ABG pCO2 47 mmHg (35-45) H 11/21/16 05:18 ABG pO2 121 mmHg (85-104) H 11/21/16 05:18 ABG HCO3 29.8 mEQ/L (21-27) H 11/21/16 05:18 ABG O2 Saturation 99 % (95-98) H 11/21/16 05:18 Calcium 8.1 mg/dL (8.6-10.8) L 11/22/16 04:12 Phosphorus 7.1 mg/dL (2.3-4.7) H 11/20/16 04:00 Magnesium 2.0 mg/dL (1.6-2.6) 11/19/16 03:18 Urine Creatinine 47 mg/dL 11/12/16 15:20 Urine Sodium 65.0 mEq/L 11/12/16 15:20 Consult Discharge Plan - Plan Referrals: Luba Dorantes, PAC [Physician Typewriter Tester] - 11/20/16 11:40 am Ernesto Pace DPM [Partnered Physician] - 11/28/16 1:00 pm (Patient needs to follow up in wound care on Saturday. per Dr. Pace.) Prescriptions: Ipratropium/Albuterol Neb [Duoneb] 3 ml IH C2SQHOM #120 inhsol LevETIRAcetam [Keppra] 500 mg PO Q12HR #60 tablet Ampicillin/Sulbactam [Unasyn] 3,000 mg IVPB BID 28 Days Cyanocobalamin (B-12) [Vitamin B12] 1,000 mcg PO DAILY #90 tablet Ferrous Sulfate 325 mg PO BIDWM #180 tablet Insulin DETEMIR [Levemir] 20 unit SQ DAILY #5 vial Insulin LISPRO [HumaLOG] 0 units SQ ACHS #2 vial Nicotine Patch [Nicoderm] 21 mg TD DAILY #30 patch.td24 Omeprazole [PriLOSEC] 20 mg PO DAILY@0630 #90 capsule. Tamsulosin [Flomax] 0.4 mg PO DAILY #30 capsule
[2016-11-23] MEDS: Insulin LISPRO 300 UNITS/3 ML VIAL SQ SCH ×5 (00:38→17:22)
[2016-11-23] MEDS: *HR* OxyCODONE/APAP 10/325 TABLET PO PRN ×4 (02:47→20:14)
[2016-11-23] MEDS: Ipratropium/Albuterol Neb 3 ML IH SCH ×5 (04:00→21:04)
[2016-11-23] MEDS: *HR* Heparin 5,000 UNIT/ML VIAL SQ SCH ×2 (06:14→17:22)
[2016-11-23 06:35] LABS: Basophils % 0.1 %; Eosinophils # 0.3 K/mcL (0.0-0.6); Hematocrit 23.5 % (37.5-50.1); Hemoglobin 7.5 g/dL (12.9-16.9); Immature Granulocytes % 0.5 % (0-4); Lymphocytes # 1.4 K/mcL (0.6-4.6); Lymphocytes % 16.3 %; Mean Corpuscular HGB Conc 31.9 g/dL (31.6-35.5); Mean Corpuscular Hemoglobin 27.7 pg (28.0-33.3); Mean Corpuscular Volume 86.7 fL (83.0-100.0); Mean Platelet Volume 9.6 fL (9.4-12.4); Monocytes # 0.6 K/mcL (0.0-1.3); Monocytes % 6.6 %; Neutrophils # 6.1 K/mcL (1.6-8.9); Platelet Count 153 K/mcL (140-400); Red Blood Count 2.71 M/mcL (4.19-5.50); Red Cell Distribution Width 16.1 % (11.5-14.5); Segmented Neutrophils % 72.5 %
[2016-11-23 06:50] LABS: Calcium 7.9 mg/dL (8.6-10.8)
[2016-11-23] MEDS: Furosemide 40 MG/4 ML VIAL IVP SCH ×2 (08:00→20:14)
[2016-11-23] MEDS: Aspirin Enteric Coated 81 MG Tablet PO SCH (08:01)
[2016-11-23] MEDS: Pantoprazole 40 MG VIAL IVP SCH (08:01)
[2016-11-23] MEDS: amLODIPine 5 MG TABLET PO SCH (08:02)
[2016-11-23] MEDS: Nicotine 21 MG PATCH.TD24 TD SCH (08:02)
[2016-11-23] MEDS: Insulin DETEMIR 100 UNIT/ML X5UNITS SQ SCH (08:07)
[2016-11-23] MEDS ORDERED: 0.9 % Sodium Chloride 2,000 ML ONE (08:14)
[2016-11-23] MEDS ORDERED: hydroCHLOROthiazide 25 MG TABLET PO SCH (09:00)
--- NOTE | 2016-11-23 09:14 | Event Note ---
Date of Encounter: 11/23/16 Time of Encounter: 09:15 Patient was transferred out of ICU to [facility]. The hospitalist admit her, Dr. Leone, was called and given signout regarding patient.
--- NOTE | 2016-11-23 09:36 | Pulmonology Progress Note ---
<Oneal Stanford - Last Filed: 11/23/16 13:02> Date of Encounter: 11/23/16 Time of Encounter: 08:30 Assessment and Plan (1) Cardiac arrest Current Visit: Yes Status: Resolved Patient suffered sudden PEA cardiac arrest around 5 PM 11/17/2016. Underwent ACLS for roughly 10 minutes before regaining pulse. He was intubated and transferred to the ICU. Possible contributing factors include significant fluid overload, elevated phosphorus, elevated BUN worsening renal function. Troponin on 11/16/2069 was 0.00, troponins on 11/17/2016 went from 0.02-0.24. Post cardiac arrest patient demonstrated movements concerning for seizure activity and was seen by neurology, EEG was performed which did not demonstrate any seizure activity. 11/20/2016: purposeful movements towards pulling ET tube. Agitated and required continued sedation today. 11/21/2016: Successful extubation. Patient is agitated, started on Fentanyl for LE wound pain and Precedex started with agitation. [place] score of 14. 11/22/2016: patient is doing well without chest pain chest pressure or palpitations. Clinically improving daily. 11/23/2016: Patient sitting comfortably, complaining of chest wall tenderness. Doing well overall Plan: Continue monitoring neurologic status. Continue to monitor electrolytes and replace as necessary. Patient transferred to [facility] Palliative care following (2) Acute respiratory failure Current Visit: Yes Status: Resolved Resolved. Likely secondary to fluid overload and cardiac arrest. Patient currently has stable vitals with oxygen saturations greater than 90% on room air. Continue current inhaled medications Continue to monitor pulse ox and daily labs Qualifiers: Respiratory failure complication: unspecified whether with hypoxia or hypercapnia Qualified Code(s): J96.00 - Acute respiratory failure, unspecified whether with hypoxia or hypercapnia (3) Acute kidney injury superimposed on chronic kidney disease Current Visit: Yes Status: Acute Patient has underlining chronic kidney disease with diminished renal function and fluid overload. Hemodialysis catheter placed on 11/19/2016 and underwent HD on 11/19/2016. Patient removed hemodialysis catheter yesterday. Creatinine continues to improve at 2.01. BUN continues to elevate, currently at 109. Unsure of etiology. We will continue Lasix diuresis and monitor renal function. Nephrology following appreciate recommendations for continued management/care Continue Lasix 40 mg twice a day. Monitor renal function with daily labs. Avoid nephrotoxic medications and renally dose antibiotics. (4) Diastolic CHF Current Visit: Yes Status: Acute History of diastolic heart failure, echocardiogram demonstrates LVEF 60-65% normal left ventricular size and systolic function. Indeterminant diastolic function. RV appears mildly dilated with normal function. Mild mitral regurgitation. Mild tricuspid regurgitation. Probable mild pulmonary hypertension. Patient physical examination demonstrates fluid overload with 2+ pitting lower extremity edema. Chest x-ray demonstrates diffuse pulmonary edema. Patient's fluid balance is +6.3 L. Post PA arrest. Nephrology is on board and plans to hemodialyze the patient Saturday, Saturday, Saturday to remove excess fluid in the setting of worsening renal function. Bilateral lower extremity Dopplers demonstrated normal superficial and deep examination. 11/20/2016: Hemodialysis removed 2600 yesterday. Continues to be volume overloaded, would benefit from another round of dialysis today. 11/21/2016: Hemodialysis removed 4000 yesterday. Volume status much improved. Patient removed hemodialysis catheter. We will monitor status as he is clinically improved. Continues to have appropriate urinary output. Patient stable. 11/22/2016 patient removed HD catheter yesterday along with his PICC line. Will not place another HD catheter at this time as he has appropriate urinary output. Will continue to treat his fluid overload. 11/23/2016: Patient doing well, continue current management Strict ins and outs, daily weights Continue Lasix. Continue cardiac meds including statin, beta kavita and aspirin. Cardiac diet Qualifiers: Congestive heart failure chronicity: acute on chronic Qualified Code(s): I50.33 - Acute on chronic diastolic (congestive) heart failure (5) Osteomyelitis of foot, right, acute Current Visit: Yes Status: Acute s/p incision and drainage to bone cortex for osteomyelitis #5 metatarsal right, open amputation of toe #5 with metatarsal #5 right foot, application wound VAC on 11/06/16. Will require 6 weeks antibiotic coverage. Continue current antibiotics (6) Diabetic ulcer of both feet associated with type 2 diabetes mellitus Current Visit: Yes Status: Acute Bilateral foot wounds, patient had right foot osteomyelitis with foot ulcer s/p incision and drainage to bone cortex for osteomyelitis #5 metatarsal right, open amputation of toe #5 with metatarsal #5 right foot, application wound VAC on 11/06/16. Right foot wound culture demonstrates Proteus vulgaris, enterococcus faecalis with sensitivities to current antibiotics. Left foot ulcer is superficial dressing changes are done at bedside per wound care. 11/21/2016: Patient was extubated and became agitated taking bed knocking off wound VAC. Dislodged a few stitches in his right lateral foot. Podiatry was called to evaluate patient foot. 11/22/2016 patient's foot is wrapped, no signs of drainage. 11/23/2016: Patient foot remains rapid, no signs of additional drainage Continue Unasyn 3000 mg every 12 hours. Continue wound care and wound VAC per wound care (7) Seizure Current Visit: Yes Status: Suspected Seizure activity secondary to cardiac arrest and 10 minutes of ACLS CPR. Neurology is following the patient. EEG was negative for seizure activity. Continue Keppra 500 mg IV twice a day, continue with diazepam IV. Head CT performed 11/18/2016 demonstrates no acute intracranial abnormalities. Unchanged remote left basal ganglion lacunar infarct. Awake, alert and doing well, no signs of agitation today. Patient comfortable and appetite good. No seizure activity seen today. Neurology is following, appreciate recommendations for continued management/care Continue seizure precautions Continue Keppra (8) Hypertension Current Visit: Yes Status: Chronic Patient has a HTN with elevated blood pressures throughout inpatient stay. Increased Norvasc today to 10mg with continued elevated blood pressures and not on pressure support. Home dose HCTZ at a previously. Current blood pressure slightly elevated at 136/66, good overall. Continue current regimen Continue monitoring blood pressure. Qualifiers: Hypertension type: essential hypertension Qualified Code(s): I10 - Essential (primary) hypertension (9) Diabetes mellitus with neuropathy Current Visit: Yes Status: Chronic Insulin dependent diabetic on Januvia, Lantus 80 units subcutaneous twice a day , at home. Glucose slightly elevated likely secondary to Solu-Medrol. Glucose goal range 140-180. Patient appears overly controlled with regularly scheduled insulin and twice a day Levemir. We will change Levemir to once daily, change sliding scale to before meals at bedtime as patient taking by mouth Qualifiers: Diabetes mellitus type: type 2 Diabetes mellitus shelter insulin use: with facility engineer use Qualified Code(s): E11.40 - Type 2 diabetes mellitus with diabetic neuropathy, unspecified; Z79.4 - salesperson household appliances (current) use of insulin (10) DVT prophylaxis Current Visit: Yes Status: Acute GI prophylaxis: Pantoprazole DVT prophylaxis heparin Neuro/sedation: Patient awake alert and oriented, continuing concern for seizure -like activity, EEG negative. Patient on Keppra currently, neurology following. Cardiovascular: Status post PEA arrest, slightly hypertensive. Continue current medications for blood pressure as well as continued telemetry monitoring. Respiratory: Patient maintaining adequate oxygen saturation on room air, no concerns at this time but will continue to monitor GI: No concerns at this time Renal: DANY on CKD, showing improvement with serum creatinine of 2.01. Avoid nephrotoxic agents, continue Lasix, nephrology is following Fluids/electrolytes: Patient received massive fluid resuscitation previously, on 80 mg Lasix overall net +6 L, improving will continue Lasix and will continue monitoring ID: Osteomyelitis, wound cultures of right foot grew Proteus vulgaris and Enterococcus faecalis pansensitive. Currently on Unasyn and will likely need extended course to treat osteomyelitis Endocrine: Glucose appears overly controlled, changed sliding scale to before meals at bedtime and change Levemir to once a day Skin: No concerns at this time Disposition safe and stable for transfer to floor CODE STATUS full Subjective Principal diagnosis: Foot infection Interval history: Patient seen this morning he is sitting comfortably on side of bed. He had just eaten breakfast, all of his breakfast. He states he has been quite hungry with a good appetite. Aside from continued pain in the center of his chest from compressions during cardiac arrest he has no complaints this morning. He denies shortness of breath, cough, fever, nausea or vomiting, and reports doing well overall. Transfer had been placed yesterday afternoon, but no beds were available for transfer. He remains safe/stable for transfer today. Objective PUL Vital signs: Last Vital Signs Temp 98.2 F 11/23/16 07:46 Pulse 75 11/23/16 08:00 Resp 20 11/23/16 08:39 BP 156/72 11/23/16 08:00 Pulse Ox 92 L 11/23/16 08:39 Constitutional: No acute distress, alert, comfortable appearing EENT: NCAT, Sclera nonicteric, noninjected, oropharynx moist, no pharyngeal exudates appreciated, no erythema in oropharynx, neck supple Respiratory: Respirations nonlabored, clear to auscultation bilaterally, no wheezes/rhonchi/rales appreciated Cardiovascular: Regular rate and rhythm, no rubs/gallops appreciated, 2/6 systolic ejection murmur Gastrointestinal: Normoactive bowel sounds, soft, nontender, nondistended, no guarding or rebound Integumentary: No erythema, no rashes, no pallor appreciated, pale complexion Extremities: No cyanosis, 2+ edema in upper and lower extremities bilaterally, left foot with dressing in place, right foot with wound VAC in place, right fifth lower extremity digit amputation, right third lower extremity digit previously amputated, no clubbing, pink and warm, pulses present and equal bilaterally Musculoskeletal: No deformities Neurologic: Normal mental status, nonfocal exam, pupils equal round reactive to light bilaterally Psychiatric normal mood, normal affect Results - Laboratory Findings CBC and BMP: 11/23/16 06:21 11/23/16 06:21 ABG ABG pH 7.41 pH Units (7.32-7.45) 11/21/16 05:18 ABG pCO2 47 mmHg (35-45) H 11/21/16 05:18 ABG pO2 121 mmHg (85-104) H 11/21/16 05:18 ABG O2 Saturation 99 % (95-98) H 11/21/16 05:18 PT/INR, D-dimer PT 12.2 Seconds (9.4-12.1) H 11/19/16 03:18 Abnormal lab findings: Abnormal lab results RBC 2.71 M/mcL (4.19-5.50) L 11/23/16 06:21 Hgb 7.5 g/dL (12.9-16.9) L 11/23/16 06:21 Hct 23.5 % (37.5-50.1) L 11/23/16 06:21 MCH 27.7 pg (28.0-33.3) L 11/23/16 06:21 RDW 16.1 % (11.5-14.5) H 11/23/16 06:21 Metamyelocytes % 4.0 % (0) H 11/13/16 03:25 Myelocytes % 4.0 % (0) H 11/14/16 03:45 Nucleated RBCs/100 WBC 0.2 /100 WBC (0) H 11/18/16 04:18 Hypersegmented Neuts Present (Not Present) A 11/21/16 04:20 Reactive Lymphocytes Present (Not Present) A 11/13/16 03:25 Toxic Granulation Present (Not Present) A 11/21/16 04:20 Toxic Vacuolation Present (Not Present) A 11/13/16 03:25 Polychromasia 1+ (Not Present) A 11/12/16 05:00 ESR 22 mm/hr (0-10) H 11/23/16 02:58 PT 12.2 Seconds (9.4-12.1) H 11/19/16 03:18 APTT 25.5 Seconds (26.0-36.0) L 11/17/16 21:25 ABG pCO2 47 mmHg (35-45) H 11/21/16 05:18 ABG pO2 121 mmHg (85-104) H 11/21/16 05:18 ABG HCO3 29.8 mEQ/L (21-27) H 11/21/16 05:18 ABG Total CO2 31.2 mEq/L (20-26) H 11/21/16 05:18 ABG O2 Saturation 99 % (95-98) H 11/21/16 05:18 ABG Base Excess 4.6 mEq/L (-2.0 to 3.0) H 11/21/16 05:18 BUN 109 mg/dL (8-26) H 11/23/16 06:21 Creatinine 2.01 mg/dL (0.72-1.25) H 11/23/16 06:21 Est GFR ( Amer) 41 (> 60) L 11/23/16 06:21 Est GFR (Non-Af Amer) 34 (> 60) L 11/23/16 06:21 BUN/Creatinine Ratio 54 (6-26) H 11/23/16 06:21 Glucose 100 mg/dL (70-99) H 11/23/16 06:21 POC Glucose 109 (58-89) H 11/23/16 07:30 Calculated Osmolality 330 (280-300) H 11/23/16 06:21 Lactic Acid 2.6 mmol/L (0.5-2.2) H 11/18/16 13:20 Uric Acid 8.4 mg/dL (3.5-7.2) H 11/12/16 05:03 Calcium 7.9 mg/dL (8.6-10.8) L 11/23/16 06:21 Ionized Calcium 1.01 mmol/L (1.15-1.35) L 11/19/16 03:18 Phosphorus 7.1 mg/dL (2.3-4.7) H 11/20/16 04:00 Troponin I 0.24 ng/mL (0-0.03) H* 11/18/16 04:18 C-Reactive Protein 33 mg/L (Less than 5) H 11/23/16 02:58 B-Natriuretic Peptide 201 pg/mL (0-100) H 11/16/16 Unknown Serum Total Protein 5.4 g/dL (6.0-8.3) L 11/22/16 04:12 Albumin 2.4 g/dL (3.5-5.0) L 11/22/16 04:12 Albumin/Globulin Ratio 0.8 (1.1-2.2) L 11/22/16 04:12 Urine Protein 100 mg/dL (Neg-Trace) H 11/12/16 15:20 Urine Glucose (UA) 250 mg/dL (Normal) H 11/12/16 15:20 Urine Microscopic RBC 3-5 per hpf (0-3) H 11/12/16 15:20 Ur Squamous Epith Cells Moderate per lpf (None-Few) H 11/12/16 15:20 - Clinical Findings Intake & Output: Intake & Output 11/22/16 11/23/16 11/23/16 23:59 07:59 15:59 Intake Total 105 / 105 100 / 100 240 / 240 Output Total 600 / 600 2700 / 2700 Balance -495 / -495 -2600 / -2600 240 / 240 Weight 119.068 kg Consult Discharge Plan - Plan Referrals: Luba Dorantes PAC [Physician Coldfusion] - 11/20/16 11:40 am Ernesto Pace DPM [Partnered Physician] - 11/28/16 1:00 pm (Patient needs to follow up in wound care on Saturday. per Dr. Pace.) Prescriptions: Ampicillin/Sulbactam [Unasyn] 3,000 mg IVPB BID 28 Days <Ariana Hawthorne - Last Filed: 11/23/16 16:59> Objective PUL Vital signs: Last Vital Signs Temp 98.2 F 11/23/16 16:36 Pulse 62 11/23/16 16:36 Resp 17 11/23/16 16:36 BP 146/69 11/23/16 16:36 Pulse Ox 95 11/23/16 16:36 Results - Laboratory Findings CBC and BMP: 11/23/16 06:21 11/23/16 06:21 ABG ABG pH 7.41 pH Units (7.32-7.45) 11/21/16 05:18 ABG pCO2 47 mmHg (35-45) H 11/21/16 05:18 ABG pO2 121 mmHg (85-104) H 11/21/16 05:18 ABG O2 Saturation 99 % (95-98) H 11/21/16 05:18 PT/INR, D-dimer PT 12.2 Seconds (9.4-12.1) H 11/19/16 03:18 Abnormal lab findings: Abnormal lab results RBC 2.71 M/mcL (4.19-5.50) L 11/23/16 06:21 Hgb 7.5 g/dL (12.9-16.9) L 11/23/16 06:21 Hct 23.5 % (37.5-50.1) L 11/23/16 06:21 MCH 27.7 pg (28.0-33.3) L 11/23/16 06:21 RDW 16.1 % (11.5-14.5) H 11/23/16 06:21 Metamyelocytes % 4.0 % (0) H 11/13/16 03:25 Myelocytes % 4.0 % (0) H 11/14/16 03:45 Nucleated RBCs/100 WBC 0.2 /100 WBC (0) H 11/18/16 04:18 Hypersegmented Neuts Present (Not Present) A 11/21/16 04:20 Reactive Lymphocytes Present (Not Present) A 11/13/16 03:25 Toxic Granulation Present (Not Present) A 11/21/16 04:20 Toxic Vacuolation Present (Not Present) A 11/13/16 03:25 Polychromasia 1+ (Not Present) A 11/12/16 05:00 ESR 22 mm/hr (0-10) H 11/23/16 02:58 PT 12.2 Seconds (9.4-12.1) H 11/19/16 03:18 APTT 25.5 Seconds (26.0-36.0) L 11/17/16 21:25 ABG pCO2 47 mmHg (35-45) H 11/21/16 05:18 ABG pO2 121 mmHg (85-104) H 11/21/16 05:18 ABG HCO3 29.8 mEQ/L (21-27) H 11/21/16 05:18 ABG Total CO2 31.2 mEq/L (20-26) H 11/21/16 05:18 ABG O2 Saturation 99 % (95-98) H 11/21/16 05:18 ABG Base Excess 4.6 mEq/L (-2.0 to 3.0) H 11/21/16 05:18 BUN 82 mg/dL (8-26) H 11/23/16 06:21 Creatinine 2.01 mg/dL (0.72-1.25) H 11/23/16 06:21 Est GFR ( Amer) 41 (> 60) L 11/23/16 06:21 Est GFR (Non-Af Amer) 34 (> 60) L 11/23/16 06:21 BUN/Creatinine Ratio 41 (6-26) H 11/23/16 06:21 Glucose 100 mg/dL (70-99) H 11/23/16 06:21 POC Glucose 168 (58-89) H 11/23/16 16:17 Calculated Osmolality 321 (280-300) H 11/23/16 06:21 Lactic Acid 2.6 mmol/L (0.5-2.2) H 11/18/16 13:20 Uric Acid 8.4 mg/dL (3.5-7.2) H 11/12/16 05:03 Calcium 7.9 mg/dL (8.6-10.8) L 11/23/16 06:21 Ionized Calcium 1.01 mmol/L (1.15-1.35) L 11/19/16 03:18 Phosphorus 7.1 mg/dL (2.3-4.7) H 11/20/16 04:00 Troponin I 0.24 ng/mL (0-0.03) H* 11/18/16 04:18 C-Reactive Protein 33 mg/L (Less than 5) H 11/23/16 02:58 B-Natriuretic Peptide 201 pg/mL (0-100) H 11/16/16 Unknown Serum Total Protein 5.4 g/dL (6.0-8.3) L 11/22/16 04:12 Albumin 2.4 g/dL (3.5-5.0) L 11/22/16 04:12 Albumin/Globulin Ratio 0.8 (1.1-2.2) L 11/22/16 04:12 Urine Protein 100 mg/dL (Neg-Trace) H 11/12/16 15:20 Urine Glucose (UA) 250 mg/dL (Normal) H 11/12/16 15:20 Urine Microscopic RBC 3-5 per hpf (0-3) H 11/12/16 15:20 Ur Squamous Epith Cells Moderate per lpf (None-Few) H 11/12/16 15:20 - Clinical Findings Intake & Output: Intake & Output 11/23/16 11/23/16 11/23/16 07:59 15:59 23:59 Intake Total 100 / 100 240 / 240 0 / 0 Output Total 2700 / 2700 1200 / 1200 475 / 475 Balance -2600 / -2600 -960 / -960 -475 / -475 Weight 119.068 kg 114.986 kg - Attending Attestation I examined this patient and my medical decision-making was reviewed with the CHECK WRITING MACHINE OPERATOR/PA/Advanced Practice Nurse/Resident Physician. I agree with the documented findings, disposition and treatment plan as described except to the extent set forth below. Patient seen and examined. Labs, radiology, chart personally reviewed. Agree with resident's history and physical, assessment, plan with following comments: PEEL OVEN TENDER: Patient follows commands, neurology follow-up for antiepileptics Pulmonary: Acceptable oxygenation and ventilation Cardiovascular: Hypertension to manage by mold chipper GI: Nutrition per dietary and GI prophylaxis per routine Heme: DVT prophylaxis per routine Renal; urine out put and renal funtion reviewed Endorcine: blood glucose is monitored Lines: all lines checked and no evidence of infections Skin: skin care to prevent pressure ulcers per nursing routine care Patient has recovered and fortunately no neurological events. Patient was transferred to the floor. Please call for any questions.
[2016-11-23] MEDS: Ampicillin/Sulbactam 3,000 MG in 0.9 % Sodium Chloride Mini Bag 100 ML IVPB SCH (12:28)
--- NOTE | 2016-11-23 18:02 | Nephrology Progress Note ---
Date of Encounter: 11/23/16 Time of Encounter: 18:00 - Assessment and Plan (1) Acute kidney injury superimposed on chronic kidney disease Current Visit: Yes Status: Acute Creatinine stable. Patient removed his line. No acute need for renal replacement therapy. (2) Anemia Current Visit: Yes Status: Acute Monitor for bleeding and replace as needed. Qualifiers: Anemia type: other cause Other causes of anemia: chronic disease, kidney Qualified Code(s): N18.9 - Chronic kidney disease, unspecified; D63.1 - Anemia in chronic kidney disease (3) CKD (chronic kidney disease) stage 3, GFR 30-59 ml/min Current Visit: Yes Status: Chronic Anticipate recovery to baseline. (4) Acute respiratory failure Current Visit: Yes Status: Resolved Extubated and on nasal cannula denies dyspnea. Qualifiers: Respiratory failure complication: unspecified whether with hypoxia or hypercapnia Qualified Code(s): J96.00 - Acute respiratory failure, unspecified whether with hypoxia or hypercapnia Subjective Principal diagnosis: Foot infection Interval history: Patient seen and evaluated. No new complaint. He is eating dinner. Objective - Vital Signs Vital signs: Vital Signs Temp Pulse Resp BP Pulse Ox 11/23/16 16:36 98.2 F 62 17 146/69 95 11/23/16 16:27 18 99 11/23/16 11:27 18 94 L 11/23/16 09:34 98.1 F 70 18 136/66 95 11/23/16 08:39 20 92 L 11/23/16 08:00 75 20 156/72 92 L 11/23/16 07:46 98.2 F 11/23/16 07:00 75 11/23/16 06:00 68 20 169/62 92 L 11/23/16 05:00 66 20 163/69 91 L 11/23/16 04:21 97.9 F 11/23/16 04:00 67 17 156/69 90 L 11/23/16 03:00 67 20 134/53 90 L 11/23/16 02:00 65 20 166/62 91 L 11/23/16 01:00 64 20 163/71 91 L 11/23/16 00:21 97.8 F 11/23/16 00:00 63 11/22/16 23:41 17 95 11/22/16 23:00 61 22 146/71 95 11/22/16 22:00 61 22 143/61 91 L 11/22/16 21:00 60 26 141/67 91 L 11/22/16 20:00 98.4 F 61 17 144/66 91 L 11/22/16 19:39 17 95 11/22/16 19:00 63 20 135/46 90 L 11/22/16 18:00 63 20 157/72 87 L Intake and Output 11/23/16 11/23/16 11/23/16 07:59 15:59 23:59 Intake Total 100 / 100 240 / 240 0 / 0 Output Total 2700 / 2700 1200 / 1200 475 / 475 Balance -2600 / -2600 -960 / -960 -475 / -475 Intake: IV Fluids 100 / 100 Unasyn 3,000 MG In 0.9 % 100 / 100 Sodium Chloride (Mini-Bag +) 100 ML @ 200 mls/hr IVPB Q12H ALEX Rx#: [id number] Oral 240 / 240 0 / 0 Output: Catheter 2700 / 2700 1200 / 1200 475 / 475 Wound Drainage 0 / 0 Right Lateral Foot 0 / 0 Other: Meal Breakfast Percent of Meal Consumed 100% Weight 119.068 kg 114.986 kg Blood Glucose* 109 130 168 Patient Weight 11/23/16 23:59 Weight 114.986 kg - General Appearance General appearance: Present: well-developed, well-nourished EENT: Present: ATNC Neck: Present: supple Additional Comments: respirations are unlabored. Cardiology: Present: regular rate Psychiatric: Present: mood/affect appropriate - Lab 11/23/16 06:21 11/23/16 06:21 Most recent lab results ABG pH 7.41 pH Units (7.32-7.45) 11/21/16 05:18 ABG pCO2 47 mmHg (35-45) H 11/21/16 05:18 ABG pO2 121 mmHg (85-104) H 11/21/16 05:18 ABG HCO3 29.8 mEQ/L (21-27) H 11/21/16 05:18 ABG O2 Saturation 99 % (95-98) H 11/21/16 05:18 Calcium 7.9 mg/dL (8.6-10.8) L 11/23/16 06:21 Phosphorus 7.1 mg/dL (2.3-4.7) H 11/20/16 04:00 Magnesium 2.0 mg/dL (1.6-2.6) 11/19/16 03:18 Urine Creatinine 47 mg/dL 11/12/16 15:20 Urine Sodium 65.0 mEq/L 11/12/16 15:20 Consult Discharge Plan - Plan Referrals: Luba Dorantes, PAC [Physician Decorator Consultant] - 11/20/16 11:40 am Ernesto Pace DPM [Partnered Physician] - 11/28/16 1:00 pm (Patient needs to follow up in wound care on Saturday. per Dr. Pace.) Prescriptions: Ampicillin/Sulbactam [Unasyn] 3,000 mg IVPB BID 28 Days
[2016-11-24] MEDS: *HR* OxyCODONE/APAP 10/325 TABLET PO PRN ×2 (00:04→05:55)
[2016-11-24] MEDS: *HR* Heparin 5,000 UNIT/ML VIAL SQ SCH ×4 (00:04→21:35)
[2016-11-24] MEDS: Ampicillin/Sulbactam 3,000 MG in 0.9 % Sodium Chloride Mini Bag 100 ML IVPB SCH ×3 (00:05→21:36)
[2016-11-24] MEDS: Insulin LISPRO 300 UNITS/3 ML VIAL SQ SCH ×5 (00:32→21:35)
[2016-11-24] MEDS: Ipratropium/Albuterol Neb 3 ML IH SCH ×7 (01:16→23:31)
[2016-11-24 04:14] LABS: Eosinophils # 0.4 K/mcL (0.0-0.6); Eosinophils % 5.4 %; Hematocrit 22.4 % (37.5-50.1); Hemoglobin 7.2 g/dL (12.9-16.9); Immature Granulocytes % 0.6 % (0-4); Lymphocytes # 1.4 K/mcL (0.6-4.6); Mean Corpuscular HGB Conc 32.1 g/dL (31.6-35.5); Mean Corpuscular Hemoglobin 27.9 pg (28.0-33.3); Mean Corpuscular Volume 86.8 fL (83.0-100.0); Mean Platelet Volume 10.4 fL (9.4-12.4); Monocytes # 0.6 K/mcL (0.0-1.3); Monocytes % 8.7 %; Neutrophils # 4.2 K/mcL (1.6-8.9); Platelet Count 149 K/mcL (140-400); Red Blood Count 2.58 M/mcL (4.19-5.50); Red Cell Distribution Width 15.9 % (11.5-14.5); Segmented Neutrophils % 64.3 %
[2016-11-24 04:45] LABS: Potassium 4.2 mEq/L (3.5-4.5)
[2016-11-24] MEDS: Pantoprazole 40 MG VIAL IVP SCH (08:15)
[2016-11-24] MEDS: Furosemide 40 MG/4 ML VIAL IVP SCH (08:15)
[2016-11-24] MEDS: Aspirin Enteric Coated 81 MG Tablet PO SCH (08:16)
[2016-11-24] MEDS: amLODIPine 5 MG TABLET PO SCH (08:17)
[2016-11-24] MEDS: Nicotine 21 MG PATCH.TD24 TD SCH (08:17)
[2016-11-24] MEDS: Insulin DETEMIR 100 UNIT/ML X5UNITS SQ SCH (08:18)
--- NOTE | 2016-11-24 11:31 | Nephrology Progress Note ---
Date of Encounter: 11/24/16 Time of Encounter: 11:29 - Assessment and Plan (1) Acute kidney injury superimposed on chronic kidney disease Current Visit: Yes Status: Acute Creatinine stable. Patient removed his line. No acute need for renal replacement therapy. (2) Anemia Current Visit: Yes Status: Acute Monitor for bleeding and transfuse as needed. Qualifiers: Anemia type: other cause Other causes of anemia: chronic disease, kidney Qualified Code(s): N18.9 - Chronic kidney disease, unspecified; D63.1 - Anemia in chronic kidney disease (3) CKD (chronic kidney disease) stage 3, GFR 30-59 ml/min Current Visit: Yes Status: Chronic Anticipate recovery to baseline. (4) Acute respiratory failure Current Visit: Yes Status: Resolved Extubated and on nasal cannula denies dyspnea. Per primary team. Qualifiers: Respiratory failure complication: unspecified whether with hypoxia or hypercapnia Qualified Code(s): J96.00 - Acute respiratory failure, unspecified whether with hypoxia or hypercapnia Subjective Principal diagnosis: Foot infection Interval history: Patient seen. No new complaint. Objective - Vital Signs Vital signs: Vital Signs Temp Pulse Resp BP Pulse Ox 11/24/16 10:54 98.1 F 61 14 129/63 94 L 11/24/16 07:42 98.6 F 70 18 157/69 93 L 11/24/16 04:58 19 94 L 11/24/16 03:39 99.6 F 69 20 158/70 94 L 11/24/16 00:52 100.0 F H 72 20 178/68 94 L 11/23/16 21:04 16 98 11/23/16 20:58 20 176/74 11/23/16 19:22 98.4 F 69 17 191/75 94 L 11/23/16 16:36 98.2 F 62 17 146/69 95 11/23/16 16:27 18 99 Intake and Output 11/23/16 11/24/16 11/24/16 23:59 07:59 15:59 Intake Total 240 / 240 410 / 410 240 / 240 Output Total 925 / 925 3000 / 3000 775 / 775 Balance -685 / -685 -2590 / -2590 -535 / -535 Intake: IV Fluids 410 / 410 Unasyn 3,000 MG In 0.9 % 100 / 100 Sodium Chloride (Mini-Bag +) 100 ML @ 200 mls/hr IVPB Q12H [facility] Rx#: [id number] Keppra 500 MG In 0.9 % 105 / 105 Sodium Chloride 100 ML @ 400 mls/hr IVPB BID [facility] Rx#:[id number] Oral 240 / 240 0 / 0 240 / 240 Output: Catheter 925 / 925 3000 / 3000 750 / 750 Wound Drainage Right Lateral Foot Other: Meal Dinner Breakfast Percent of Meal Consumed 100% 100% Stool Size Moderate Stool Consistency formed Stool Color Brown Weight 114.8 kg Blood Glucose* 135 166 213 Patient Weight 11/24/16 23:59 Weight 114.8 kg - General Appearance General appearance: Present: well-developed, well-nourished, obese, chronically ill EENT: Present: ATNC Neck: Present: supple Additional Comments: respirations are unlabored. Cardiology: Present: regular rate Gastrointestinal: Present: obese Psychiatric: Present: mood/affect appropriate - Lab 11/24/16 04:00 11/24/16 04:00 Most recent lab results ABG pH 7.41 pH Units (7.32-7.45) 11/21/16 05:18 ABG pCO2 47 mmHg (35-45) H 11/21/16 05:18 ABG pO2 121 mmHg (85-104) H 11/21/16 05:18 ABG HCO3 29.8 mEQ/L (21-27) H 11/21/16 05:18 ABG O2 Saturation 99 % (95-98) H 11/21/16 05:18 Calcium 8.0 mg/dL (8.6-10.8) L 11/24/16 04:00 Phosphorus 7.1 mg/dL (2.3-4.7) H 11/20/16 04:00 Magnesium 2.0 mg/dL (1.6-2.6) 11/19/16 03:18 Urine Creatinine 47 mg/dL 11/12/16 15:20 Urine Sodium 65.0 mEq/L 11/12/16 15:20 Consult Discharge Plan - Plan Referrals: Luba Dorantes, OUSMANE [Physician Head Rigger] - 11/20/16 11:40 am Ernesto Pace DPM [Partnered Physician] - 11/28/16 1:00 pm (Patient needs to follow up in wound care on Saturday. per Dr. Pace.) Prescriptions: Ampicillin/Sulbactam [Unasyn] 3,000 mg IVPB BID 28 Days
--- NOTE | 2016-11-24 14:21 | Internal Med Progress Note ---
Date of Encounter: 11/24/16 Time of Encounter: 14:17 - Assessment and plan (1) Acute respiratory failure Current Visit: Yes Status: Resolved Assessment and plan: related to cardiac arrest and volume overload; s/p intubation and extubation; currently saturating well on room air; Qualifiers: Respiratory failure complication: unspecified whether with hypoxia or hypercapnia Qualified Code(s): J96.00 - Acute respiratory failure, unspecified whether with hypoxia or hypercapnia (2) Cardiac arrest Current Visit: Yes Status: Resolved Assessment and plan: PEA cardiac arrest, likely due to volume overload, acute renal failure, volume overload; ROSC in 10min; (3) Acute kidney injury superimposed on chronic kidney disease Current Visit: Yes Status: Acute Assessment and plan: improving serum creatinine; patient received temporary HD via temporary HD catheter, which he pulled out himself yesterday. Nephrology f/up noted, continue current management with Lasix for peripheral edema; (4) Anemia Current Visit: Yes Status: Acute Assessment and plan: likely related to CKD; Hb noted to be dropping; will transfuse if Hb<7; Monitor closely; check FOBT; Qualifiers: Anemia type: other cause Other causes of anemia: chronic disease, kidney Qualified Code(s): N18.9 - Chronic kidney disease, unspecified; D63.1 - Anemia in chronic kidney disease (5) Diabetes mellitus Current Visit: Yes Status: Chronic Assessment and plan: Accucheck blood glucose monitoring with basal bolus insulin regimen; blood sugars noted to be well-controlled; diabetic diet; Qualifiers: Diabetes mellitus type: type 2 Diabetes mellitus complication status: with kidney complications Diabetes mellitus complication detail: with chronic kidney disease Diabetes mellitus manager terminal insulin use: with manager terminal use Chronic kidney disease stage: stage 3 (moderate) Qualified Code(s): E11.22 - Type 2 diabetes mellitus with diabetic chronic kidney disease; N18.3 - Chronic kidney disease, stage 3 (moderate); 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.4 - exterminator (current) use of insulin (6) Osteomyelitis of foot, right, acute Current Visit: Yes Status: Acute Assessment and plan: s/p excision of right 5th toe and metatarsal; wound vac in place since 11/06/16 ; wound culture grows Proteus and Enterococcus, sensitive to Unasyn; continue IV Unasyn for 6 weeks, at least 4 more weeks; pain control with PRN IV Morphine and oral Percocet; (7) Diastolic CHF Current Visit: Yes Status: Chronic Qualifiers: Congestive heart failure chronicity: chronic Qualified Code(s): I50.32 - Chronic diastolic (congestive) heart failure (8) Seizure Current Visit: Yes Status: Chronic Assessment and plan: started after CPR, possible due to cerebral hypoxia; continue Keppra; (9) Hypertension Current Visit: Yes Status: Chronic Qualifiers: Hypertension type: essential hypertension Qualified Code(s): I10 - Essential (primary) hypertension (10) Peripheral vascular disease Current Visit: Yes Status: Chronic (11) COPD (chronic obstructive pulmonary disease) Current Visit: Yes Status: Chronic Qualifiers: COPD type: unspecified COPD Qualified Code(s): J44.9 - Chronic obstructive pulmonary disease, unspecified (12) Obesity (BMI 30.0-34.9) Current Visit: Yes Status: Chronic - Subjective Interval history: Resting in bed comfortably; reports some pain in left foot and some chest discomfort since receiving CPR; no dyspnea, palpitations, vomiting or diarrhea; - Constitutional Vitals: Temp Pulse Resp BP Pulse Ox 98.1 F 61 14 129/63 94 L 11/24/16 10:54 11/24/16 10:54 11/24/16 10:54 11/24/16 10:54 11/24/16 10:54 General appearance: Present: A&O X 3, obese, answers questions appropriately - Respiratory Respiratory exam: Present: CTAB. Absent: accessory muscle use, rales, rhonchi, wheezes - Cardiovascular Cardiovascular exam: Present: RRR, +S1, +S2. Absent: diastolic murmur, gallop, rubs, systolic murmur - GI/Abdominal GI/Abdominal exam: Present: normal bowel sounds, soft (obese), no peritoneal signs. Absent: distended, tenderness - Extremities Exam Extremities exam: Present: pedal edema (2+ pitting pedal edema), warm, radial pulses palpable and symetrical. Absent: calf tenderness, cyanotic Additional comments: Right foot s/p excision of 5th toe and metatarsal, on wound vac, draining minimal bloody fluid Internal Medicine: Result - Labs CBC & Chem 7: 11/24/16 04:00 11/24/16 04:00 Labs: Short CBC 11/24/16 Range/Units 04:00 WBC 6.5 (4.3-11.1) K/mcL Hgb 7.2 L (12.9-16.9) g/dL Hct 22.4 L (37.5-50.1) % Plt Count 149 (140-400) K/mcL Neutrophils # 4.2 (1.6-8.9) K/mcL BMP 11/23/16 11/24/16 06:21 04:00 Sodium 143 143 Potassium 4.0 4.2 Chloride 106 106 Carbon Dioxide 27 26 BUN 82 H 77 H Creatinine 2.01 H 1.95 H Glucose 100 H 151 H Calcium 7.9 L 8.0 L - ABG Interpretation ABG results: ABG ABG pH 7.41 pH Units (7.32-7.45) 11/21/16 05:18 ABG pCO2 47 mmHg (35-45) H 11/21/16 05:18 ABG pO2 121 mmHg (85-104) H 11/21/16 05:18 ABG O2 Saturation 99 % (95-98) H 11/21/16 05:18 PT/INR, D-dimer PT 12.2 Seconds (9.4-12.1) H 11/19/16 03:18 Consult Discharge Plan - Plan Referrals: Luba Dorantes PAC [Physician Die Presser] - 11/20/16 11:40 am Ernesto Pace DPM [Partnered Physician] - 11/28/16 1:00 pm (Patient needs to follow up in wound care on Saturday. per Dr. Pace.) Prescriptions: Ampicillin/Sulbactam [Unasyn] 3,000 mg IVPB BID 28 Days
[2016-11-24] MEDS: levETIRAcetam 250 MG TABLET PO SCH (17:24)
[2016-11-24] MEDS: Furosemide 40 MG TABLET PO SCH (21:35)
[2016-11-25] MEDS: *HR* OxyCODONE/APAP 10/325 TABLET PO PRN ×3 (02:01→23:45)
[2016-11-25] MEDS: Ipratropium/Albuterol Neb 3 ML IH SCH ×5 (04:09→20:53)
[2016-11-25 04:29] LABS: Eosinophils # 0.5 K/mcL (0.0-0.6); Eosinophils % 7.2 %; Hematocrit 21.6 % (37.5-50.1); Immature Granulocytes % 0.6 % (0-4); Lymphocytes # 1.4 K/mcL (0.6-4.6); Lymphocytes % 22.6 %; Mean Corpuscular HGB Conc 32.4 g/dL (31.6-35.5); Mean Corpuscular Volume 86.4 fL (83.0-100.0); Mean Platelet Volume 10.5 fL (9.4-12.4); Monocytes # 0.6 K/mcL (0.0-1.3); Monocytes % 9.3 %; Neutrophils # 3.8 K/mcL (1.6-8.9); Platelet Count 156 K/mcL (140-400); Segmented Neutrophils % 60.3 %
[2016-11-25 04:37] LABS: Potassium 3.8 mEq/L (3.5-4.5)
[2016-11-25] MEDS: levETIRAcetam 250 MG TABLET PO SCH ×2 (05:54→16:17)
[2016-11-25] MEDS: *HR* Heparin 5,000 UNIT/ML VIAL SQ SCH (05:54)
[2016-11-25] MEDS: Furosemide 40 MG TABLET PO SCH ×2 (07:33→21:25)
[2016-11-25] MEDS: Aspirin Enteric Coated 81 MG Tablet PO SCH (07:34)
[2016-11-25] MEDS: amLODIPine 5 MG TABLET PO SCH (07:34)
[2016-11-25] MEDS: Nicotine 21 MG PATCH.TD24 TD SCH (07:35)
[2016-11-25] MEDS: Insulin LISPRO 300 UNITS/3 ML VIAL SQ SCH ×4 (07:37→21:27)
[2016-11-25] MEDS: Insulin DETEMIR 100 UNIT/ML X5UNITS SQ SCH (07:53)
--- NOTE | 2016-11-25 11:07 | Nephrology Progress Note ---
Date of Encounter: 11/25/16 Time of Encounter: 11:05 - Assessment and Plan (1) Acute kidney injury superimposed on chronic kidney disease Current Visit: Yes Status: Acute Creatinine stable. Patient removed his line. No acute need for renal replacement therapy. Creatinine improving. (2) Anemia Current Visit: Yes Status: Acute Monitor for bleeding and transfuse as needed. Will check iron stores, vitamin b12 and folate. Qualifiers: Anemia type: other cause Other causes of anemia: chronic disease, kidney Qualified Code(s): N18.9 - Chronic kidney disease, unspecified; D63.1 - Anemia in chronic kidney disease (3) CKD (chronic kidney disease) stage 3, GFR 30-59 ml/min Current Visit: Yes Status: Chronic Anticipate recovery to baseline. (4) Acute respiratory failure Current Visit: Yes Status: Resolved Extubated and on nasal cannula denies dyspnea. Per primary team. Qualifiers: Respiratory failure complication: unspecified whether with hypoxia or hypercapnia Qualified Code(s): J96.00 - Acute respiratory failure, unspecified whether with hypoxia or hypercapnia Subjective Principal diagnosis: Foot infection Interval history: Patient seen and evaluated. No new complaint. Denies chest pain or shortness of breath. He thinks he is leaving today. Objective - Vital Signs Vital signs: Vital Signs Temp Pulse Resp BP Pulse Ox 11/25/16 11:01 98.0 F 57 18 157/74 94 L 11/25/16 08:56 19 98 11/25/16 07:08 98.1 F 68 18 170/78 94 L 11/25/16 04:09 18 95 11/25/16 03:51 98.3 F 63 20 171/72 92 L 11/24/16 23:31 16 96 11/24/16 23:11 98.4 F 63 20 123/50 97 11/24/16 20:29 20 96 11/24/16 19:26 97.9 F 60 18 126/55 93 L 11/24/16 16:28 18 92 L 11/24/16 14:38 98.0 F 72 16 138/77 91 L 11/24/16 11:33 16 138/77 96 Intake and Output 11/24/16 11/25/16 11/25/16 23:59 07:59 15:59 Intake Total 440 / 440 Output Total 750 / 750 2300 / 2300 1250 / 1250 Balance -310 / -310 -2300 / -2300 -1250 / -1250 Intake: IV Fluids 200 / 200 Unasyn 3,000 MG In 0.9 % 200 / 200 Sodium Chloride (Mini-Bag +) 100 ML @ 200 mls/hr IVPB Q12H [facility] Rx#: [id number] Oral 240 / 240 Output: Catheter 750 / 750 2300 / 2300 1250 / 1250 Other: Meal Dinner REFUSED Percent of Meal Consumed 100% Stool Size Moderate Stool Consistency soft Stool Color Brown # Bowel Movements 1 Weight 115.1 kg Blood Glucose* 244 160 136 Patient Weight 11/25/16 23:59 Weight 115.1 kg - General Appearance General appearance: Present: well-developed, well-nourished EENT: Present: ATNC Neck: Present: supple Respiratory: Present: clear Cardiology: Present: edema, regular rate, regular rhythm Gastrointestinal: Present: normoactive bowel sounds, no tenderness Integumentary: Present: warm and dry Neurologic: Present: alert and oriented x3 Musculoskeletal: Present: no cyanosis Psychiatric: Present: mood/affect appropriate - Lab 11/25/16 04:00 11/25/16 04:00 Most recent lab results ABG pH 7.41 pH Units (7.32-7.45) 11/21/16 05:18 ABG pCO2 47 mmHg (35-45) H 11/21/16 05:18 ABG pO2 121 mmHg (85-104) H 11/21/16 05:18 ABG HCO3 29.8 mEQ/L (21-27) H 11/21/16 05:18 ABG O2 Saturation 99 % (95-98) H 11/21/16 05:18 Calcium 8.0 mg/dL (8.6-10.8) L 11/25/16 04:00 Phosphorus 7.1 mg/dL (2.3-4.7) H 11/20/16 04:00 Magnesium 2.0 mg/dL (1.6-2.6) 11/19/16 03:18 Urine Creatinine 47 mg/dL 11/12/16 15:20 Urine Sodium 65.0 mEq/L 11/12/16 15:20 Consult Discharge Plan - Plan Referrals: Luba Dorantes, PAC [Physician Statistician Mathematical] - 11/20/16 11:40 Ernesto Simpson DPM [Partnered Physician] - 11/28/16 1:00 pm (Patient needs to follow up in wound care on Saturday. per Dr. Pace.) Prescriptions: Ampicillin/Sulbactam [Unasyn] 3,000 mg IVPB BID 28 Days
--- NOTE | 2016-11-25 11:41 | Internal Med Progress Note ---
Date of Encounter: 11/25/16 Time of Encounter: 11:44 - Assessment and plan (1) Acute respiratory failure Current Visit: Yes Status: Resolved Qualifiers: Respiratory failure complication: unspecified whether with hypoxia or hypercapnia Qualified Code(s): J96.00 - Acute respiratory failure, unspecified whether with hypoxia or hypercapnia (2) Cardiac arrest Current Visit: Yes Status: Resolved (3) Acute kidney injury superimposed on chronic kidney disease Current Visit: Yes Status: Acute Assessment and plan: improving serum creatinine; patient received temporary HD via temporary HD catheter, which he pulled out himself yesterday. Nephrology f/up noted, continue current management with Lasix for peripheral edema; Patient is awaiting placement at extended care facility. (4) Anemia Current Visit: Yes Status: Acute Assessment and plan: likely related to CKD; to rule out possible occult GI bleed. Stop heparin and aspirin at this time. Check stool for occult blood. continues to have drop in hemoglobin, current hemoglobin is at 7. Iron profile and iron stores noted to be within normal limits, checked during this admission. Follow-up serum vitamin B12 and folate levels. Transfuse 2 units PRBC today. Continue to monitor hemoglobin closely. Qualifiers: Anemia type: other cause Other causes of anemia: chronic disease, kidney Qualified Code(s): N18.9 - Chronic kidney disease, unspecified; D63.1 - Anemia in chronic kidney disease (5) Diabetes mellitus Current Visit: Yes Status: Chronic Assessment and plan: Accucheck blood glucose monitoring with basal bolus insulin regimen; blood sugars noted to be well-controlled; diabetic diet; Qualifiers: Diabetes mellitus type: type 2 Diabetes mellitus complication status: with kidney complications Diabetes mellitus complication detail: with chronic kidney disease Diabetes mellitus intermodal truck driver insulin use: with assisted use Chronic kidney disease stage: stage 3 (moderate) Qualified Code(s): E11.22 - Type 2 diabetes mellitus with diabetic chronic kidney disease; N18.3 - Chronic kidney disease, stage 3 (moderate); Z79.4 - [facility] (current) use of insulin (6) Osteomyelitis of foot, right, acute Current Visit: Yes Status: Acute Assessment and plan: s/p excision of right 5th toe and metatarsal; wound vac in place since 11/06/16 ; wound culture grows Proteus and Enterococcus, sensitive to Unasyn; continue IV Unasyn for 6 weeks, at least 4 more weeks; pain control with PRN IV Morphine and oral Percocet; (7) Diastolic CHF Current Visit: Yes Status: Chronic Qualifiers: Congestive heart failure chronicity: chronic Qualified Code(s): I50.32 - Chronic diastolic (congestive) heart failure (8) Seizure Current Visit: Yes Status: Chronic (9) Hypertension Current Visit: Yes Status: Chronic Qualifiers: Hypertension type: essential hypertension Qualified Code(s): I10 - Essential (primary) hypertension (10) Peripheral vascular disease Current Visit: Yes Status: Chronic (11) COPD (chronic obstructive pulmonary disease) Current Visit: Yes Status: Chronic Qualifiers: COPD type: unspecified COPD Qualified Code(s): J44.9 - Chronic obstructive pulmonary disease, unspecified (12) Obesity (BMI 30.0-34.9) Current Visit: Yes Status: Chronic - Subjective Interval history: Noted to be slightly more confused and drowsy, likely due to pain medications. Reports feeling well. No chest pain, shortness of breath or fatigue. No melena or rectal bleeding reported. - Constitutional Vitals: Temp Pulse Resp BP Pulse Ox 98.0 F 57 18 157/74 94 L 11/25/16 11:01 11/25/16 11:01 11/25/16 11:06 11/25/16 11:01 11/25/16 11:06 General appearance: Present: A&O X 3, obese, answers questions appropriately - Respiratory Respiratory exam: Present: CTAB. Absent: accessory muscle use, rales, rhonchi, wheezes - Cardiovascular Cardiovascular exam: Present: RRR, +S1, +S2. Absent: diastolic murmur, gallop, rubs, systolic murmur - GI/Abdominal GI/Abdominal exam: Present: normal bowel sounds, soft, no peritoneal signs. Absent: distended, tenderness - Extremities Exam Extremities exam: Present: full ROM, normal inspection (Bilateral lower legs with intact dressings. Status post right fifth toe and metatarsal amputation, wound VAC noted with minimal bloody fluid.), warm, radial pulses palpable and symetrical. Absent: calf tenderness, cyanotic, pedal edema - Neurological Exam Neurological exam: Present: CN II-XII intact, oriented X3, no focal deficits. Absent: pronater drift, facial droop, speech deficit Internal Medicine: Result - Labs CBC & Chem 7: 11/25/16 04:00 11/25/16 04:00 Labs: Short CBC 11/25/16 Range/Units 04:00 WBC 6.3 (4.3-11.1) K/mcL Hgb 7.0 L (12.9-16.9) g/dL Hct 21.6 L (37.5-50.1) % Plt Count 156 (140-400) K/mcL Neutrophils # 3.8 (1.6-8.9) K/mcL BMP 11/25/16 04:00 Sodium 143 Potassium 3.8 Chloride 107 Carbon Dioxide 27 BUN 60 H Creatinine 1.72 H Glucose 131 H Calcium 8.0 L - ABG Interpretation ABG results: ABG ABG pH 7.41 pH Units (7.32-7.45) 11/21/16 05:18 ABG pCO2 47 mmHg (35-45) H 11/21/16 05:18 ABG pO2 121 mmHg (85-104) H 11/21/16 05:18 ABG O2 Saturation 99 % (95-98) H 11/21/16 05:18 PT/INR, D-dimer PT 12.2 Seconds (9.4-12.1) H 11/19/16 03:18 Consult Discharge Plan - Plan Referrals: Luba Dorantes PAC [Physician Seafood Team Member] - 11/20/16 11:40 am Ernesto Pace DPM [Partnered Physician] - 11/28/16 1:00 pm (Patient needs to follow up in wound care on Saturday. per Dr. Pace.) Prescriptions: Ampicillin/Sulbactam [Unasyn] 3,000 mg IVPB BID 28 Days
[2016-11-25] MEDS ORDERED: 0.9 % Sodium Chloride Mini Bag 100 ML ONE ×2 (13:35→17:00)
[2016-11-25] MEDS: Ampicillin/Sulbactam 3,000 MG in 0.9 % Sodium Chloride Mini Bag 100 ML IVPB SCH ×2 (14:08→21:24)
[2016-11-26] MEDS: Ipratropium/Albuterol Neb 3 ML IH SCH ×6 (00:35→20:51)
[2016-11-26 03:54] LABS: Basophils % 0.2 %; Eosinophils # 0.5 K/mcL (0.0-0.6); Hematocrit 28.8 % (37.5-50.1); Immature Granulocytes % 0.6 % (0-4); Lymphocytes # 1.3 K/mcL (0.6-4.6); Mean Corpuscular HGB Conc 32.3 g/dL (31.6-35.5); Mean Corpuscular Hemoglobin 27.9 pg (28.0-33.3); Mean Corpuscular Volume 86.5 fL (83.0-100.0); Mean Platelet Volume 9.9 fL (9.4-12.4); Monocytes # 0.5 K/mcL (0.0-1.3); Monocytes % 8.5 %; Platelet Count 185 K/mcL (140-400); Red Blood Count 3.33 M/mcL (4.19-5.50); Red Cell Distribution Width 15.3 % (11.5-14.5); Segmented Neutrophils % 62.7 %
[2016-11-26 03:56] LABS: Hemoglobin 9.3 g/dL (12.9-16.9)
[2016-11-26 04:03] LABS: Calcium 8.7 mg/dL (8.6-10.8); Potassium 3.8 mEq/L (3.5-4.5)
[2016-11-26 04:06] LABS: % Iron Saturation 14 % (20-55); Iron 36 mcg/dL (65-175); Transferrin 182 mg/dL (174-364)
[2016-11-26 04:27] LABS: Ferritin 376 ng/ml (22-275)
[2016-11-26 04:41] LABS: Folate 8.8 ng/mL (7.0-31.4)
[2016-11-26] MEDS: levETIRAcetam 250 MG TABLET PO SCH ×2 (06:08→16:17)
[2016-11-26] MEDS: amLODIPine 5 MG TABLET PO SCH (07:22)
[2016-11-26] MEDS: Furosemide 40 MG TABLET PO SCH ×2 (07:22→21:28)
[2016-11-26] MEDS: Nicotine 21 MG PATCH.TD24 TD SCH (07:23)
[2016-11-26] MEDS: Insulin DETEMIR 100 UNIT/ML X5UNITS SQ SCH (08:57)
[2016-11-26] MEDS: Insulin LISPRO 300 UNITS/3 ML VIAL SQ SCH ×4 (09:00→21:28)
[2016-11-26] MEDS: Ampicillin/Sulbactam 3,000 MG in 0.9 % Sodium Chloride Mini Bag 100 ML IVPB SCH ×3 (11:38→23:28)
[2016-11-26] MEDS: *HR* OxyCODONE/APAP 10/325 TABLET PO PRN (11:41)
--- NOTE | 2016-11-26 11:45 | Podiatry Progress Note ---
Date of Encounter: 11/26/16 Time of Encounter: 11:15 - Assessment and Plan (1) Renal failure Current Visit: No Status: Acute 1. Nephrology consulted and following patient. (2) Peripheral vascular disease due to secondary diabetes Current Visit: No Status: Acute 1. ISIDRO of BLE completed on 11/05/16: Right: 0.98 Left: 0.94 (3) Foot ulcer Current Visit: No Status: Chronic 1. Significant improvement in ulceration to the left foot. Continue wound care as ordered. Qualifiers: Laterality: right Non-pressure ulcer stage: with fat layer exposed Qualified Code(s): L97.512 - Non-pressure chronic ulcer of other part of right foot with fat layer exposed (4) Diabetes mellitus with neuropathy Current Visit: Yes Status: Chronic Qualifiers: Diabetes mellitus type: type 2 Diabetes mellitus long-term insulin use: with long-term use Qualified Code(s): E11.40 - Type 2 diabetes mellitus with diabetic neuropathy, unspecified; Z79.4 - senior living (current) use of insulin (5) Osteomyelitis of foot, right, acute Current Visit: Yes Status: Acute 1. s/p incision and drainage to bone cortex for osteomyelitis #5 metatarsal right, open amputation of toe #5 with metatarsal #5 right foot, application wound VAC on 11/06/16. 2. Intraop cultures: Proteus Vulgaris, enterococcus faecalis. WBC, ESR and CRP all trending down. WBC: 6.3, ESR: 22, CRP: 33 3. Recommend IV Unasyn BID x 3 weeks with wound vac changes every M-W-. Wound vac: black sponge, connected to 125 mmhg continuous suction. Wound vac changed at bedside today. 4. Patient will need a f/u with Dr. Pace in wound care with in one week of discharge from the hospital. 5. Protective weight bearing with walker and cam boot. Subjective Principal diagnosis: Foot infection Interval history: Patient is s/p incision and drainage to bone cortex for osteomyelitis #5 metatarsal right, open amputation of toe #5 with metatarsal #5 right foot, application wound VAC by Dr. Pace on 11/06/16. Patient was transferred from ICU to over the weekend. He denies any pain in his feet. Wound vac intact to the right foot. Per nurse left foot dressing was changed today. Patient is awaiting authorization at the [facility]. No c/o pain to his feet, no fever or chills overnight. Objective - Vital Signs Vital Signs: Vital Signs Temp Pulse Resp BP Pulse Ox 11/26/16 10:35 97.6 F 65 16 175/72 96 11/26/16 07:00 97.6 F 68 18 183/50 97 11/26/16 04:59 24 95 11/26/16 01:47 98.4 F 63 14 183/83 97 11/26/16 00:35 17 94 L 11/25/16 20:53 18 93 L 11/25/16 19:09 97.7 F 64 18 168/81 94 L 11/25/16 17:10 97.8 F 64 18 168/71 98 11/25/16 16:55 97.5 F L 62 20 169/71 96 11/25/16 16:28 97.5 F L 67 20 128/55 98 11/25/16 13:55 97.7 F 58 18 167/72 95 11/25/16 13:40 97.7 F 62 18 128/70 95 Intake and Output 11/25/16 11/26/16 11/26/16 23:59 07:59 15:59 Intake Total 1330 / 1330 150 / 150 Output Total 225 / 225 1245 / 1245 700 / 700 Balance 1105 / 1105 -1095 / -1095 -700 / -700 Intake: IV Fluids 200 / 200 Unasyn 3,000 MG In 0.9 % 200 / 200 Sodium Chloride (Mini-Bag +) 100 ML @ 200 mls/hr IVPB Q12H [facility] Rx#: [id number] Oral 480 / 480 150 / 150 Blood Product 650 / 650 Rbcs Leuko Poor As-1 300 / 300 Unit [id number] Rbcs Leuko Poor As-1 350 / 350 Unit [id number] Output: Urine 200 / 200 1245 / 1245 700 / 700 Wound Drainage 25 / 25 Right Lateral Foot 25 / 25 Other: Meal Dinner Breakfast Percent of Meal Consumed 0% 0% Blood Glucose* 149 170 182 - Exam Exam: General appearance: Intubated and unresponsive. Vascular: Pedal pulses 0/4 DP/PT , No evidence of cyanosis, pallor or rubor, Edema graded at 2+/4, Skin Temperature warm, capillary refill time is immediate to digits. Ulcer: 1. Post op: Ulceration to the left foot at the fifth metatarsal head plantar aspect measuring 1 cm in length x 1.8 cm in width. 25 mls of serous drainage observed to wound vac chamber. Light periwound erythema, No probe to bone, no odor, no streaking, no fluctuance. 2. Healing ulceration to the left foot at the fifth metatarsal head plantar aspect measuring 1.8 cm in length x 1.8 cm in width. scant amount of serous drainage observed to dressing. No probe to bone, no odor, no erythema, no streaking, no fluctuance. - Lab Result Diagrams: 11/27/16 05:46 11/26/16 03:30 Labs: Abnormal lab results RBC 3.33 M/mcL (4.19-5.50) L 11/26/16 03:30 Hgb 9.3 g/dL (12.9-16.9) L D 11/26/16 03:30 Hct 28.8 % (37.5-50.1) L 11/26/16 03:30 MCH 27.9 pg (28.0-33.3) L 11/26/16 03:30 RDW 15.3 % (11.5-14.5) H 11/26/16 03:30 Metamyelocytes % 4.0 % (0) H 11/13/16 03:25 Myelocytes % 4.0 % (0) H 11/14/16 03:45 Nucleated RBCs/100 WBC 0.2 /100 WBC (0) H 11/18/16 04:18 Hypersegmented Neuts Present (Not Present) A 11/21/16 04:20 Reactive Lymphocytes Present (Not Present) A 11/13/16 03:25 Toxic Granulation Present (Not Present) A 11/21/16 04:20 Toxic Vacuolation Present (Not Present) A 11/13/16 03:25 Polychromasia 1+ (Not Present) A 11/12/16 05:00 ESR 22 mm/hr (0-10) H 11/23/16 02:58 PT 12.2 Seconds (9.4-12.1) H 11/19/16 03:18 APTT 25.5 Seconds (26.0-36.0) L 11/17/16 21:25 ABG pCO2 47 mmHg (35-45) H 11/21/16 05:18 ABG pO2 121 mmHg (85-104) H 11/21/16 05:18 ABG HCO3 29.8 mEQ/L (21-27) H 11/21/16 05:18 ABG Total CO2 31.2 mEq/L (20-26) H 11/21/16 05:18 ABG O2 Saturation 99 % (95-98) H 11/21/16 05:18 ABG Base Excess 4.6 mEq/L (-2.0 to 3.0) H 11/21/16 05:18 BUN 41 mg/dL (8-26) H D 11/26/16 03:30 Creatinine 1.48 mg/dL (0.72-1.25) H 11/26/16 03:30 Est GFR ( Amer) 59 (> 60) L 11/26/16 03:30 Est GFR (Non-Af Amer) 48 (> 60) L 11/26/16 03:30 BUN/Creatinine Ratio 28 (6-26) H 11/26/16 03:30 Glucose 130 mg/dL (70-99) H 11/26/16 03:30 POC Glucose 182 (58-89) H 11/26/16 11:05 Calculated Osmolality 310 (280-300) H 11/26/16 03:30 Lactic Acid 2.6 mmol/L (0.5-2.2) H 11/18/16 13:20 Uric Acid 8.4 mg/dL (3.5-7.2) H 11/12/16 05:03 Ionized Calcium 1.01 mmol/L (1.15-1.35) L 11/19/16 03:18 Phosphorus 7.1 mg/dL (2.3-4.7) H 11/20/16 04:00 Iron 36 mcg/dL (65-175) L 11/26/16 03:30 % Saturation 14 % (20-55) L 11/26/16 03:30 Ferritin 376 ng/ml (22-275) H 11/26/16 03:30 Troponin I 0.24 ng/mL (0-0.03) H* 11/18/16 04:18 C-Reactive Protein 33 mg/L (Less than 5) H 11/23/16 02:58 B-Natriuretic Peptide 201 pg/mL (0-100) H 11/16/16 Unknown Serum Total Protein 5.4 g/dL (6.0-8.3) L 11/22/16 04:12 Albumin 2.4 g/dL (3.5-5.0) L 11/22/16 04:12 Albumin/Globulin Ratio 0.8 (1.1-2.2) L 11/22/16 04:12 Urine Protein 100 mg/dL (Neg-Trace) H 11/12/16 15:20 Urine Glucose (UA) 250 mg/dL (Normal) H 11/12/16 15:20 Urine Microscopic RBC 3-5 per hpf (0-3) H 11/12/16 15:20 Ur Squamous Epith Cells Moderate per lpf (None-Few) H 11/12/16 15:20 Consult Discharge Plan - Plan Referrals: Luba Dorantes, PAC [Physician Singer And Unloader] - 11/20/16 11:40 am Ernesto Pace DPM [Partnered Physician] - 11/28/16 1:00 pm (Patient needs to follow up in wound care on Saturday. per Dr. Pace.) Prescriptions: Ampicillin/Sulbactam [Unasyn] 3,000 mg IVPB BID 28 Days
--- NOTE | 2016-11-26 15:51 | Electrocardiograph Report ---
[address] [address] Test Date: 2016-11-24 Pat Name: Nikita Regalado Department: 115 Room: 3A52 Gender: M Mental Retardation Nurse: : 1955 Requested By: Claus Crawford Order Number: [id number] Reading MD: Sam Bocanegra MD Measurements Intervals [place] Rate: 71 P: 43 [place]: 157 QRS: 5 QRSD: 91 T: 31 QT: 367 QTc: 389 Interpretive Statements SINUS RHYTHM POOR R WAVE PROGRESSION Electronically Signed On 11-26-2016 15:49:57 EST by Sam Bocanegra MD
--- NOTE | 2016-11-26 17:13 | Internal Med Progress Note ---
Date of Encounter: 11/26/16 Time of Encounter: 11:50 - Assessment and plan (1) Osteomyelitis of foot, right, acute Current Visit: Yes Status: Acute Assessment and plan: s/p excision of right 5th toe and metatarsal; wound vac in place since 11/06/16 ; wound culture grows Proteus and Enterococcus, sensitive to Unasyn; continue IV Unasyn for 6 weeks, at least 3 more weeks; pain control with PRN IV Morphine and oral Percocet; patient to be discharged to alf on IV antibiotics for 3 more weeks. Has PICC line in place. Wound VAC is changed today and patient is to follow-up in podiatry clinic for further care. (2) Anemia Current Visit: Yes Status: Acute Assessment and plan: likely related to CKD; noted to have acute on chronic anemia. Patient is a poor historian, could be GI bleed. Received 2 units PRBC yesterday and hemoglobin improved to 9.3 today. Stool sample could not be obtained to check for fecal occult blood test, which is pending. Stop heparin and aspirin at this time. Iron profile and iron stores noted to be within normal limits, checked during this admission. repeat iron profile shows low iron and transferrin saturation with elevated TIBC and ferritin. Results discussed with nephrology, may be erroneous but recommend oral ferrous sulfate supplementation. Serum vitamin B12 and folate levels noted to be within normal limits. Continue to monitor hemoglobin closely. Qualifiers: Anemia type: other cause Other causes of anemia: chronic disease, kidney Qualified Code(s): N18.9 - Chronic kidney disease, unspecified; D63.1 - Anemia in chronic kidney disease (3) Acute kidney injury superimposed on chronic kidney disease Current Visit: Yes Status: Acute Assessment and plan: improving serum creatinine; patient received temporary HD via temporary HD catheter, while in the ICU. Nephrology f/up noted, continue current management with Lasix for peripheral edema; Patient is awaiting placement at extended care facility. (4) Acute respiratory failure Current Visit: Yes Status: Resolved Qualifiers: Respiratory failure complication: unspecified whether with hypoxia or hypercapnia Qualified Code(s): J96.00 - Acute respiratory failure, unspecified whether with hypoxia or hypercapnia (5) Cardiac arrest Current Visit: Yes Status: Resolved (6) Diabetes mellitus Current Visit: Yes Status: Chronic Qualifiers: Diabetes mellitus type: type 2 Diabetes mellitus complication status: with kidney complications Diabetes mellitus complication detail: with chronic kidney disease Diabetes mellitus skilled nursing insulin use: with skilled nursing use Chronic kidney disease stage: stage 3 (moderate) Qualified Code(s): E11.22 - Type 2 diabetes mellitus with diabetic chronic kidney disease; N18.3 - Chronic kidney disease, stage 3 (moderate); 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 (7) Diastolic CHF Current Visit: Yes Status: Chronic Qualifiers: Congestive heart failure chronicity: chronic Qualified Code(s): I50.32 - Chronic diastolic (congestive) heart failure (8) Seizure Current Visit: Yes Status: Chronic (9) Hypertension Current Visit: Yes Status: Chronic Qualifiers: Hypertension type: essential hypertension Qualified Code(s): I10 - Essential (primary) hypertension (10) Peripheral vascular disease Current Visit: Yes Status: Chronic (11) COPD (chronic obstructive pulmonary disease) Current Visit: Yes Status: Chronic Qualifiers: COPD type: unspecified COPD Qualified Code(s): J44.9 - Chronic obstructive pulmonary disease, unspecified (12) Obesity (BMI 30.0-34.9) Current Visit: Yes Status: Chronic - Subjective Interval history: Resting in bed. Reports no chest pain or shortness of breath. No generalized weakness. Right foot wound healing well. - Constitutional Vitals: Temp Pulse Resp BP Pulse Ox 97.4 F L 60 16 141/68 95 11/26/16 14:00 11/26/16 14:00 11/26/16 14:00 11/26/16 14:00 11/26/16 14:00 General appearance: Present: A&O X 3, obese, answers questions appropriately - Respiratory Respiratory exam: Present: CTAB. Absent: accessory muscle use, rales, rhonchi, wheezes - Cardiovascular Cardiovascular exam: Present: RRR, +S1, +S2. Absent: diastolic murmur, gallop, rubs, systolic murmur - GI/Abdominal GI/Abdominal exam: Present: normal bowel sounds, soft, no peritoneal signs. Absent: distended, tenderness - Extremities Exam Extremities exam: Present: normal inspection (Bilateral feet are wrapped in kerlix; status post right fifth metatarsal and toe amputation, connected to wound VAC, draining minimal bloody fluid.), warm, radial pulses palpable and symetrical. Absent: calf tenderness, cyanotic, pedal edema Internal Medicine: Result - Labs CBC & Chem 7: 11/26/16 03:30 11/26/16 03:30 Labs: Short CBC 11/26/16 Range/Units 03:30 WBC 6.3 (4.3-11.1) K/mcL Hgb 9.3 L D (12.9-16.9) g/dL Hct 28.8 L (37.5-50.1) % Plt Count 185 (140-400) K/mcL Neutrophils # 4.0 (1.6-8.9) K/mcL BMP 11/26/16 03:30 Sodium 144 Potassium 3.8 Chloride 105 Carbon Dioxide 27 BUN 41 H D Creatinine 1.48 H Glucose 130 H Calcium 8.7 - ABG Interpretation ABG results: ABG ABG pH 7.41 pH Units (7.32-7.45) 11/21/16 05:18 ABG pCO2 47 mmHg (35-45) H 11/21/16 05:18 ABG pO2 121 mmHg (85-104) H 11/21/16 05:18 ABG O2 Saturation 99 % (95-98) H 11/21/16 05:18 PT/INR, D-dimer PT 12.2 Seconds (9.4-12.1) H 11/19/16 03:18 Consult Discharge Plan - Plan Referrals: Luba Dorantes PAC [Physician Operator] - 11/20/16 11:40 am Ernesto Pace DPM [Partnered Physician] - 11/28/16 1:00 pm (Patient needs to follow up in wound care on Saturday. per Dr. Pace.) Prescriptions: Ampicillin/Sulbactam [Unasyn] 3,000 mg IVPB BID 28 Days
--- NOTE | 2016-11-26 18:40 | Nephrology Progress Note ---
Date of Encounter: 11/26/16 Time of Encounter: 18:40 - Assessment and Plan (1) Acute kidney injury superimposed on chronic kidney disease Current Visit: Yes Status: Acute Creatinine improving. Patient removed his line. No acute need for renal replacement therapy. (2) Anemia Current Visit: Yes Status: Acute Monitor for bleeding and transfuse as needed. Iron deficiency anemia. On oral iron. Qualifiers: Anemia type: other cause Other causes of anemia: chronic disease, kidney Qualified Code(s): N18.9 - Chronic kidney disease, unspecified; D63.1 - Anemia in chronic kidney disease (3) CKD (chronic kidney disease) stage 3, GFR 30-59 ml/min Current Visit: Yes Status: Chronic Anticipate recovery to baseline. (4) Acute respiratory failure Current Visit: Yes Status: Resolved Extubated and on nasal cannula denies dyspnea. Per primary team. Qualifiers: Respiratory failure complication: unspecified whether with hypoxia or hypercapnia Qualified Code(s): J96.00 - Acute respiratory failure, unspecified whether with hypoxia or hypercapnia Subjective Principal diagnosis: Foot infection Interval history: Patient seen and evaluated. No new complaint. Denies chest pain or shortness of breath. Objective - Vital Signs Vital signs: Vital Signs Temp Pulse Resp BP Pulse Ox 11/26/16 16:24 16 141/68 94 L 11/26/16 14:00 97.4 F L 60 16 141/68 95 11/26/16 12:02 16 96 11/26/16 10:35 97.6 F 65 16 175/72 96 11/26/16 07:00 97.6 F 68 18 183/50 97 11/26/16 04:59 24 95 11/26/16 01:47 98.4 F 63 14 183/83 97 11/26/16 00:35 17 94 L 11/25/16 20:53 18 93 L 11/25/16 19:09 97.7 F 64 18 168/81 94 L Intake and Output 11/26/16 11/26/16 11/26/16 07:59 15:59 23:59 Intake Total 150 / 150 480 / 480 Output Total 1245 / 1245 1400 / 1400 Balance -1095 / -1095 -920 / -920 Intake: Oral 150 / 150 480 / 480 Output: Urine 1245 / 1245 1400 / 1400 Other: Meal Lunch Percent of Meal Consumed 100% Blood Glucose* 170 182 111 - General Appearance General appearance: Present: well-developed, well-nourished EENT: Present: ATNC Neck: Present: supple Respiratory: Present: clear Cardiology: Present: regular rate, regular rhythm Gastrointestinal: Present: normoactive bowel sounds, no tenderness Integumentary: Present: warm and dry Neurologic: Present: alert and oriented x3 Psychiatric: Present: mood/affect appropriate - Lab 11/26/16 03:30 11/26/16 03:30 Most recent lab results ABG pH 7.41 pH Units (7.32-7.45) 11/21/16 05:18 ABG pCO2 47 mmHg (35-45) H 11/21/16 05:18 ABG pO2 121 mmHg (85-104) H 11/21/16 05:18 ABG HCO3 29.8 mEQ/L (21-27) H 11/21/16 05:18 ABG O2 Saturation 99 % (95-98) H 11/21/16 05:18 Calcium 8.7 mg/dL (8.6-10.8) 11/26/16 03:30 Phosphorus 7.1 mg/dL (2.3-4.7) H 11/20/16 04:00 Magnesium 2.0 mg/dL (1.6-2.6) 11/19/16 03:18 Urine Creatinine 47 mg/dL 11/12/16 15:20 Urine Sodium 65.0 mEq/L 11/12/16 15:20 Consult Discharge Plan - Plan Referrals: Luba Dorantes PAC [Physician Gas Worker] - 11/20/16 11:40 am Ernesto Pace DPM [Partnered Physician] - 11/28/16 1:00 pm (Patient needs to follow up in wound care on Saturday. per Dr. Pace.) Prescriptions: Ampicillin/Sulbactam [Unasyn] 3,000 mg IVPB BID 28 Days
[2016-11-27] MEDS: Ipratropium/Albuterol Neb 3 ML IH SCH ×7 (01:08→22:37)
[2016-11-27] MEDS: *HR* OxyCODONE/APAP 10/325 TABLET PO PRN ×3 (02:04→20:21)
[2016-11-27] MEDS: Ampicillin/Sulbactam 3,000 MG in 0.9 % Sodium Chloride Mini Bag 100 ML IVPB SCH ×4 (05:31→22:59)
[2016-11-27] MEDS: levETIRAcetam 250 MG TABLET PO SCH ×2 (05:31→16:51)
[2016-11-27 06:02] LABS: Basophils % 0.2 %; Eosinophils # 0.5 K/mcL (0.0-0.6); Eosinophils % 8.1 %; Immature Granulocytes % 0.3 % (0-4); Lymphocytes # 1.2 K/mcL (0.6-4.6); Lymphocytes % 18.1 %; Mean Corpuscular HGB Conc 32.1 g/dL (31.6-35.5); Mean Corpuscular Hemoglobin 27.3 pg (28.0-33.3); Mean Corpuscular Volume 84.8 fL (83.0-100.0); Mean Platelet Volume 9.2 fL (9.4-12.4); Monocytes # 0.6 K/mcL (0.0-1.3); Monocytes % 8.8 %; Neutrophils # 4.2 K/mcL (1.6-8.9); Platelet Count 170 K/mcL (140-400); Red Cell Distribution Width 15.1 % (11.5-14.5); Segmented Neutrophils % 64.5 %
[2016-11-27] MEDS: Nicotine 21 MG PATCH.TD24 TD SCH (09:25)
[2016-11-27] MEDS: amLODIPine 5 MG TABLET PO SCH (09:26)
[2016-11-27] MEDS: Furosemide 40 MG TABLET PO SCH ×2 (09:27→20:11)
[2016-11-27] MEDS: Insulin LISPRO 300 UNITS/3 ML VIAL SQ SCH ×4 (09:28→20:12)
[2016-11-27] MEDS: Insulin DETEMIR 100 UNIT/ML X5UNITS SQ SCH (09:42)
[2016-11-27] MEDS ORDERED: Lactulose Oral Soln 20 GM/30 ML UDC PO ONE (13:58)
[2016-11-27] MEDS: Ondansetron 4 MG/2 ML VIAL IVP PRN (14:05)
[2016-11-27] MEDS: *HR* Heparin 5,000 UNIT/ML VIAL SQ SCH (17:26)
--- NOTE | 2016-11-27 18:45 | Internal Med Progress Note ---
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 Protonix twice a day, bladder scan every 6 hours, stright cath as needed. Monitor bowel movement. Possible discharge next a.m.. nead 3 weeks of IV antibiotic. Check CBC and BMP next a.m. patient acute on chronic renal failure secondary to postrenal secondary to urinary retention. Flomax twice a day Greater than 35 minutes - Subjective Interval history: Patient complaining of nausea, had only small bowel movement over last 4 days, complaining of abdominal discomfort. Bladder scan was 1100, Post voiding residual was 700 - Constitutional Vitals: Temp Pulse Resp BP Pulse Ox 98.2 F 67 18 177/77 97 11/27/16 15:24 11/27/16 15:24 11/27/16 16:05 11/27/16 15:24 11/27/16 16:05 General appearance: Present: morbidly obese, obese, answers questions appropriately - Neck Neck exam general surgery: Present: supple, trachea midline. Absent: lymphadenopathy - Respiratory Respiratory exam: Present: decreased breath sounds, prolonged expiratory phase. Absent: accessory muscle use, rales, rhonchi, wheezes - Cardiovascular Cardiovascular exam: Present: RRR, +S1, +S2. Absent: diastolic murmur, gallop, rubs, systolic murmur - GI/Abdominal GI/Abdominal exam: Present: distended, normal bowel sounds, soft, tenderness ( Tenderness and fullness suprapubic area), no peritoneal signs Internal Medicine: Result - Labs CBC & Chem 7: 11/27/16 05:46 11/26/16 03:30 Labs: Short CBC 11/27/16 Range/Units 05:46 WBC 6.5 (4.3-11.1) K/mcL Hgb 9.0 L (12.9-16.9) g/dL Hct 28.0 L (37.5-50.1) % Plt Count 170 (140-400) K/mcL Neutrophils # 4.2 (1.6-8.9) K/mcL - ABG Interpretation ABG results: ABG ABG pH 7.41 pH Units (7.32-7.45) 11/21/16 05:18 ABG pCO2 47 mmHg (35-45) H 11/21/16 05:18 ABG pO2 121 mmHg (85-104) H 11/21/16 05:18 ABG O2 Saturation 99 % (95-98) H 11/21/16 05:18 PT/INR, D-dimer PT 12.2 Seconds (9.4-12.1) H 11/19/16 03:18 Consult Discharge Plan - Plan Referrals: Luba Dorantes, PAC [Physician Mastic Floor Layer] - 11/20/16 11:40 am Ernesto Pace DPM [Partnered Physician] - 11/28/16 1:00 pm (Patient needs to follow up in wound care on Saturday. per Dr. Pace.) Prescriptions: Ampicillin/Sulbactam [Unasyn] 3,000 mg IVPB BID 28 Days
[2016-11-27] MEDS: Cyanocobalamin (B-12) 1,000 MCG TABLET PO SCH (19:57)
[2016-11-28] MEDS: Ondansetron 4 MG/2 ML VIAL IVP PRN (03:58)
[2016-11-28 04:06] LABS: Basophils % 0.1 %; Eosinophils # 0.4 K/mcL (0.0-0.6); Eosinophils % 5.8 %; Hematocrit 28.2 % (37.5-50.1); Hemoglobin 9.4 g/dL (12.9-16.9); Immature Granulocytes % 0.7 % (0-4); Immature Platelets 2.1 % (1.1-6.1); Lymphocytes # 1.2 K/mcL (0.6-4.6); Lymphocytes % 17.9 %; Mean Corpuscular HGB Conc 33.3 g/dL (31.6-35.5); Mean Corpuscular Hemoglobin 28.1 pg (28.0-33.3); Mean Corpuscular Volume 84.2 fL (83.0-100.0); Mean Platelet Volume 9.2 fL (9.4-12.4); Monocytes # 0.6 K/mcL (0.0-1.3); Monocytes % 9.2 %; Neutrophils # 4.6 K/mcL (1.6-8.9); Platelet Count 200 K/mcL (140-400); Red Blood Count 3.35 M/mcL (4.19-5.50); Red Cell Distribution Width 14.9 % (11.5-14.5); Segmented Neutrophils % 66.3 %
[2016-11-28 04:25] LABS: BUN/Creatinine Ratio 16 (6-26); Calcium 8.7 mg/dL (8.6-10.8); Carbon Dioxide 28 mEq/L (19-29); Chloride 104 mEq/L (98-109); Glucose 137 mg/dL (70-99); Magnesium 1.1 mg/dL (1.6-2.6); Osmolality,Calculated 305 (280-300); Phosphorous 2.9 mg/dL (2.3-4.7); Potassium 3.6 mEq/L (3.5-4.5); Sodium 145 mEq/L (136-145); eGFR For African Americans > 60 (> 60); eGFR For Non-African Americans 54 (> 60)
[2016-11-28 04:26] LABS: Blood Urea Nitrogen 22 mg/dL (8-26)
[2016-11-28] MEDS: Ipratropium/Albuterol Neb 3 ML IH SCH ×4 (04:26→16:47)
[2016-11-28] MEDS: levETIRAcetam 250 MG TABLET PO SCH (06:13)
[2016-11-28] MEDS: Ampicillin/Sulbactam 3,000 MG in 0.9 % Sodium Chloride Mini Bag 100 ML IVPB SCH ×2 (06:13→13:01)
[2016-11-28] MEDS: *HR* Heparin 5,000 UNIT/ML VIAL SQ SCH (06:13)
[2016-11-28] MEDS: Nicotine 21 MG PATCH.TD24 TD SCH (09:18)
[2016-11-28] MEDS: Furosemide 40 MG TABLET PO SCH (09:20)
[2016-11-28] MEDS: amLODIPine 5 MG TABLET PO SCH (09:20)
[2016-11-28] MEDS: Cyanocobalamin (B-12) 1,000 MCG TABLET PO SCH (09:21)
[2016-11-28] MEDS: Insulin LISPRO 300 UNITS/3 ML VIAL SQ SCH ×2 (09:25→15:43)
[2016-11-28] MEDS: Insulin DETEMIR 100 UNIT/ML X5UNITS SQ SCH (09:31)
[2016-11-28] MEDS ORDERED: Iron Sucrose Complex 400 MG in 0.9 % Sodium Chloride 250 ML IVPB ONE (10:30)
[2016-11-28] MEDS: Magnesium Sulfate 2 GM/100 ML PIGGYBACK IVPB SCH ×2 (11:21→13:58)
[2016-11-28 11:35] VITALS: BP 170/70
--- NOTE | 2016-11-28 13:02 | Podiatry Progress Note ---
Date of Encounter: 11/28/16 Time of Encounter: 12:30 - Assessment and Plan (1) Renal failure Status: Acute 1. Nephrology consulted and following patient. (2) Peripheral vascular disease due to secondary diabetes Status: Acute 1. ISIDRO of BLE completed on 11/05/16: Right: 0.98 Left: 0.94 (3) Foot ulcer Status: Chronic 1. Significant improvement in ulceration to the left foot. Continue wound care as ordered. Qualifiers: Laterality: right Non-pressure ulcer stage: with fat layer exposed Qualified Code(s): L97.512 - Non-pressure chronic ulcer of other part of right foot with fat layer exposed (4) Diabetes mellitus with neuropathy Status: Chronic Qualifiers: Diabetes mellitus type: type 2 Diabetes mellitus snf insulin use: with snf use Qualified Code(s): E11.40 - Type 2 diabetes mellitus with diabetic neuropathy, unspecified; Z79.4 - care home (current) use of insulin (5) Osteomyelitis of foot, right, acute Status: Acute 1. s/p incision and drainage to bone cortex for osteomyelitis #5 metatarsal right, open amputation of toe #5 with metatarsal #5 right foot, application wound VAC on 11/06/16. 2. Intraop cultures: Proteus Vulgaris, enterococcus faecalis. WBC, ESR and CRP all trending down. 3. Recommend IV Unasyn BID x 3 weeks with wound vac changes every M-W-. Wound vac: black sponge, connected to 125 mmhg continuous suction. Wound vac changed at bedside today. 4. Patient will need a f/u with Dr. Pace in wound care with in one week of discharge from the hospital. 5. Protective weight bearing with walker and cam boot. Subjective Principal diagnosis: Foot infection Interval history: Patient is s/p incision and drainage to bone cortex for osteomyelitis #5 metatarsal right, open amputation of toe #5 with metatarsal #5 right foot, application wound VAC by Dr. Pace on 11/06/16. Wound vac intact to the right foot. Patient will be discharged to [facility] today. No c/o pain to his feet, no fever or chills overnight. Objective - Vital Signs Vital Signs: Vital Signs Temp Pulse Resp BP Pulse Ox 11/28/16 11:19 170/70 11/28/16 09:01 97.5 F L 71 18 158/57 95 11/28/16 04:47 97.7 F 67 15 156/61 95 11/27/16 23:41 97.6 F 67 15 165/59 94 L 11/27/16 20:13 16 95 11/27/16 19:48 98.2 F 61 18 170/73 93 L 11/27/16 16:05 18 97 11/27/16 15:24 98.2 F 67 18 177/77 97 Intake and Output 11/27/16 11/28/16 11/28/16 23:59 07:59 15:59 Intake Total 200 / 200 300 / 300 100 / 100 Output Total 800 / 800 1250 / 1250 200 / 200 Balance -600 / -600 -950 / -950 -100 / -100 Intake: IV Fluids 200 / 200 100 / 100 100 / 100 Unasyn 3,000 MG In 0.9 % 200 / 200 100 / 100 Sodium Chloride (Mini-Bag +) 100 ML @ 200 mls/hr IVPB Q6HR ALEX Rx#: [id number] Magnesium Sulfate 2 gm In 100 / 100 100 ml @ 92.593 mls/hr IVPB Q1H ALEX Rx#: [id number] Oral 0 / 0 200 / 200 0 / 0 Output: Urine 0 / 0 850 / 850 200 / 200 Straight Cath 800 / 800 400 / 400 Wound Drainage 0 / 0 0 / 0 Right Lateral Foot 0 / 0 0 / 0 Other: Meal Dinner REFUSED/BREAKFAST Percent of Meal Consumed 0% 0% Stool Size Moderate Stool Consistency formed Stool Color Brown # Voids 1 # Urine Diapers 0 Weight 104.7 kg Blood Glucose* 110 163 Patient Weight 11/28/16 23:59 Weight 104.7 kg - Exam Exam: General appearance: Intubated and unresponsive. Vascular: Pedal pulses 0/4 DP/PT , No evidence of cyanosis, pallor or rubor, Edema graded at 2+/4, Skin Temperature warm, capillary refill time is immediate to digits. Ulcer: #1 Post op ulceration to the right foot at the fifth metatarsal head lateral aspect measuring 1.8 cm in length x 1.8 cm in width x 1 cm in depth, area of dehiscence to the proximal end of the incision line measuring 2 cm in length x 1.5 cm in width, base of wound with 80% granulation tissue, 20% yellow slough, no drainage observed to wound vac chamber. Light periwound erythema, No probe to bone, no odor, no streaking, no fluctuance. #2 Healing ulceration to the left foot at the fifth metatarsal head plantar aspect measuring 1. cm in length x 1.8 cm in width. scant amount of serous drainage observed to dressing. No probe to bone, no odor, no erythema, no streaking, no fluctuance. - Lab Result Diagrams: 11/28/16 03:45 11/28/16 03:45 Labs: Abnormal lab results RBC 3.35 M/mcL (4.19-5.50) L 11/28/16 03:45 Hgb 9.4 g/dL (12.9-16.9) L 11/28/16 03:45 Hct 28.2 % (37.5-50.1) L 11/28/16 03:45 RDW 14.9 % (11.5-14.5) H 11/28/16 03:45 MPV 9.2 fL (9.4-12.4) L 11/28/16 03:45 Metamyelocytes % 4.0 % (0) H 11/13/16 03:25 Myelocytes % 4.0 % (0) H 11/14/16 03:45 Nucleated RBCs/100 WBC 0.2 /100 WBC (0) H 11/18/16 04:18 Hypersegmented Neuts Present (Not Present) A 11/21/16 04:20 Reactive Lymphocytes Present (Not Present) A 11/13/16 03:25 Toxic Granulation Present (Not Present) A 11/21/16 04:20 Toxic Vacuolation Present (Not Present) A 11/13/16 03:25 Polychromasia 1+ (Not Present) A 11/12/16 05:00 ESR 22 mm/hr (0-10) H 11/23/16 02:58 PT 12.2 Seconds (9.4-12.1) H 11/19/16 03:18 APTT 25.5 Seconds (26.0-36.0) L 11/17/16 21:25 ABG pCO2 47 mmHg (35-45) H 11/21/16 05:18 ABG pO2 121 mmHg (85-104) H 11/21/16 05:18 ABG HCO3 29.8 mEQ/L (21-27) H 11/21/16 05:18 ABG Total CO2 31.2 mEq/L (20-26) H 11/21/16 05:18 ABG O2 Saturation 99 % (95-98) H 11/21/16 05:18 ABG Base Excess 4.6 mEq/L (-2.0 to 3.0) H 11/21/16 05:18 Creatinine 1.35 mg/dL (0.72-1.25) H 11/28/16 03:45 Est GFR (Non-Af Amer) 54 (> 60) L 11/28/16 03:45 Glucose 137 mg/dL (70-99) H 11/28/16 03:45 POC Glucose 163 (58-89) H 11/28/16 08:00 Calculated Osmolality 305 (280-300) H 11/28/16 03:45 Lactic Acid 2.6 mmol/L (0.5-2.2) H 11/18/16 13:20 Uric Acid 8.4 mg/dL (3.5-7.2) H 11/12/16 05:03 Ionized Calcium 1.01 mmol/L (1.15-1.35) L 11/19/16 03:18 Magnesium 1.1 mg/dL (1.6-2.6) L 11/28/16 03:45 Iron 36 mcg/dL (65-175) L 11/26/16 03:30 % Saturation 14 % (20-55) L 11/26/16 03:30 Ferritin 376 ng/ml (22-275) H 11/26/16 03:30 Troponin I 0.24 ng/mL (0-0.03) H* 11/18/16 04:18 C-Reactive Protein 33 mg/L (Less than 5) H 11/23/16 02:58 B-Natriuretic Peptide 201 pg/mL (0-100) H 11/16/16 Unknown Serum Total Protein 5.4 g/dL (6.0-8.3) L 11/22/16 04:12 Albumin 2.4 g/dL (3.5-5.0) L 11/22/16 04:12 Albumin/Globulin Ratio 0.8 (1.1-2.2) L 11/22/16 04:12 Urine Protein 100 mg/dL (Neg-Trace) H 11/12/16 15:20 Urine Glucose (UA) 250 mg/dL (Normal) H 11/12/16 15:20 Urine Microscopic RBC 3-5 per hpf (0-3) H 11/12/16 15:20 Ur Squamous Epith Cells Moderate per lpf (None-Few) H 11/12/16 15:20 Consult Discharge Plan - Plan Instructions: Peripheral Vascular Disorders (DC), Chronic Obstructive Pulmonary Disease (DC), Chronic Hypertension (DC) Referrals: Luba Dorantes PAC [Physician Sales Project Engineer] - 11/20/16 11:40 am Ernesto Pace DPM [Partnered Physician] - 11/28/16 1:00 pm (Patient needs to follow up in wound care on Saturday. per Dr. Pace.) Prescriptions: Ipratropium/Albuterol Neb [Duoneb] 3 ml IH [id number] #120 inhsol LevETIRAcetam [Keppra] 500 mg PO Q12HR #60 tablet Carvedilol [Coreg] 25 mg PO BIDWM #60 tablet Cyanocobalamin (B-12) [Vitamin B12] 1,000 mcg PO DAILY #90 tablet Ferrous Sulfate 325 mg PO BIDWM #180 tablet Insulin DETEMIR [Levemir] 20 unit SQ DAILY #5 vial Insulin LISPRO [HumaLOG] 0 units SQ ACHS #2 vial Lactobacillus [Culturelle] 1 each PO BID #60 cap.sprink Magnesium Oxide [Mag-Ox] 400 mg PO BID #60 tablet Nicotine Patch [Nicoderm] 21 mg TD DAILY #30 patch.td24 Polyethylene Glycol 3350 [MiraLAX] 17 gm PO DAILY #30 powd.pack Sennosides [Senna] 8.6 mg PO DAILY #06 tablet Tamsulosin [Flomax] 0.4 mg PO DAILY #30 capsule Thiamine HCl 250 mg PO DAILY #90 tablet
--- NOTE | 2016-11-28 14:09 | Discharge Summary ---
Date of Encounter: 11/28/16 Time of Encounter: 13:30 - Discharge Diagnosis (1) Urinary retention Priority: Secondary Status: Acute (2) Constipation Priority: Secondary Status: Acute Qualifiers: Constipation type: slow transit constipation Qualified Code(s): K59.01 - Slow transit constipation (3) Acute kidney injury superimposed on chronic kidney disease Priority: Secondary Status: Acute (4) Osteomyelitis of foot, right, acute Priority: Primary Status: Acute (5) Iron deficiency anemia Priority: Secondary Status: Acute Qualifiers: Iron deficiency anemia type: unspecified iron deficiency Qualified Code(s) : D50.9 - Iron deficiency anemia, unspecified (6) Anemia secondary to renal failure Priority: Secondary Status: Acute (7) Diabetes mellitus with neuropathy Priority: Secondary Status: Chronic Qualifiers: Diabetes mellitus type: type 2 Diabetes mellitus half-way insulin use: with half-way use Qualified Code(s): E11.40 - Type 2 diabetes mellitus with diabetic neuropathy, unspecified; Z79.4 - shelter (current) use of insulin (8) Cardiac arrest Priority: Secondary Status: Resolved - Discharge Medications Prescriptions: Ipratropium/Albuterol Neb [Duoneb] 3 ml IH [id number] #120 inhsol LevETIRAcetam [Keppra] 500 mg PO Q12HR #60 tablet Carvedilol [Coreg] 25 mg PO BIDWM #60 tablet Cyanocobalamin (B-12) [Vitamin B12] 1,000 mcg PO DAILY #90 tablet Ferrous Sulfate 325 mg PO BIDWM #180 tablet Insulin DETEMIR [Levemir] 20 unit SQ DAILY #5 vial Insulin LISPRO [HumaLOG] 0 units SQ ACHS #2 vial Lactobacillus [Culturelle] 1 each PO BID #60 cap.sprink Magnesium Oxide [Mag-Ox] 400 mg PO BID #60 tablet Nicotine Patch [Nicoderm] 21 mg TD DAILY #30 patch.td24 Polyethylene Glycol 3350 [MiraLAX] 17 gm PO DAILY #30 powd.pack Sennosides [Senna] 8.6 mg PO DAILY #06 tablet Tamsulosin [Flomax] 0.4 mg PO DAILY #30 capsule Thiamine HCl 250 mg PO DAILY #90 tablet Home Medications: Aspirin [Adult Low Dose Aspirin EC] 81 mg PO DAILY 12/11/15 [History] Budesonide/Formoterol 160/4.5 [Symbicort 160/4.5] 2 puff IH BIDR 12/11/15 [ History] Citalopram Hydrobromide [Celexa] 20 mg PO DAILY 12/11/15 [History] Enalapril Maleate [Vasotec] 10 mg PO QPM 12/11/15 [History] Ergocalciferol (VITAMIN D2) [Vitamin D2 (50,000 UNIT)] 50,000 unit PO MÁRQUEZ [History] Gabapentin [Neurontin] 600 mg PO TID 12/11/15 [History] Hydroxyzine HCl 50 mg PO BID 12/11/15 [History] Insulin ASPART [Novolog] 36 - 38 unit SQ TIDWM 12/11/15 [History] Omeprazole [PriLOSEC] 20 mg PO BIDAC 12/11/15 [History] Ropinirole [Requip] 1 mg PO HS 12/11/15 [History] Rosuvastatin [Crestor] 40 mg PO DAILY 12/11/15 [History] SitaGLIPtin [Januvia] 100 mg PO DAILY 12/11/15 [History] Trazodone HCl [TraZODone] 100 mg PO HS 12/11/15 [History] Oxycodone HCl/Acetaminophen [Percocet 10-325 mg Tablet] 1 tab PO Q4H PRN #20 tablet 12/15/15 [Rx] Amlodipine [Norvasc] 5 mg PO DAILY #30 tablet 08/08/16 [Rx] Ampicillin/Sulbactam [Unasyn] 3,000 mg IVPB BID 20 Days 11/28/16 [Rx] Carvedilol [Coreg] 25 mg PO BIDWM #60 tablet 11/28/16 [Rx] Cyanocobalamin (B-12) [Vitamin B12] 1,000 mcg PO DAILY #90 tablet 11/28/16 [Rx] Ferrous Sulfate 325 mg PO BIDWM #180 tablet 11/28/16 [Rx] Furosemide [Lasix] 40 mg PO BID #60 11/28/16 [Rx] Insulin DETEMIR [Levemir] 20 unit SQ DAILY #5 vial 11/28/16 [Rx] Insulin LISPRO [HumaLOG] 0 units SQ ACHS #2 vial 11/28/16 [Rx] Ipratropium/Albuterol Neb [Duoneb] 3 ml IH [id number] #120 inhsol 11/28/16 [Rx] Lactobacillus [Culturelle] 1 each PO BID #60 cap.sprink 11/28/16 [Rx] LevETIRAcetam [Keppra] 500 mg PO Q12HR #60 tablet 11/28/16 [Rx] Magnesium Oxide [Mag-Ox] 400 mg PO BID #60 tablet 11/28/16 [Rx] Nicotine Patch [Nicoderm] 21 mg TD DAILY #30 patch.td24 11/28/16 [Rx] Polyethylene Glycol 3350 [MiraLAX] 17 gm PO DAILY #30 powd.pack 11/28/16 [Rx] Sennosides [Senna] 8.6 mg PO DAILY #06 tablet 11/28/16 [Rx] Tamsulosin [Flomax] 0.4 mg PO DAILY #30 capsule 11/28/16 [Rx] Thiamine HCl 250 mg PO DAILY #90 tablet 11/28/16 [Rx] Allergies/Adverse Reactions: Allergies acetaminophen [From Darvocet-N] Allergy (Verified 12/11/15 11:46) Hives ibuprofen Allergy (Verified 12/11/15 11:46) Hives propoxyphene [From Darvocet-N] Allergy (Verified 12/11/15 11:46) Hives tramadol [From Ultram] Allergy (Verified 12/11/15 11:46) Hives Date of admission: 11/05/16 06:10 Primary care physician: Mark Coe MD Consults: 11/05/16 08:41 Consult to Orthopedic Surgery [CONS] Routine Consulting Provider: Ab Moreira Reason for Consult: Infected L second finger (middle finger) - Spoke with fermentation engineer Dr Solis Time Notified: 08:40 Call Completed: Yes 11/07/16 07:45 Consult to Physical Therapy [CONS] Routine Comment: Evaluate, develop and implement POC Consult to Restoration Officer [CONS] Routine Reason for SW Consult: Discharge planning. IV antibiotics, wound vac. 11/07/16 09:25 Consult to Invasive Line Access Team [CONS] Routine Reason for Consult: Picc Line Insertion Line Type: PICC PICC line indications: director long term care Med/Antibiotic 11/08/16 11:22 OT [Consult to Occupational Therapy] [CONS] Routine Comment: Evaluate, develop and implement POC 11/12/16 07:58 Consult to Nephrology [CONS] Routine Consulting Provider: Kidney Keesha/ERIKA/BLUE/EVERT Reason for Consult: CKD/DANY Hypertension Time Notified: 07:59 Call Completed: Yes 11/17/16 19:52 Consult to Physician [CONS] Routine Consulting Provider: Adi Pinto Reason for Consult: resp failure Time Notified: 18:00 Call Completed: Yes 11/18/16 13:01 Consult to Neurology [CONS] Routine Consulting Provider: Neurology [facility] Reason for Consult: new onset seizures Time Notified: 13:02 Call Completed: Yes 11/18/16 17:11 Consult to Interpret Exam [CONS] Stat Consulting Provider: Cori Benson I Consult to Interpret Exam: Interpret EEG 11/19/16 14:24 Consult to Nutrition [CONS] Routine Comment: Consulting Provider: NUTRITION Reason for Dietary Consult: TF Start and Manage 11/20/16 09:17 Consult to Palliative Care [CONS] Routine Comment: Consulting Provider: Palliative Care [facility] Discharging clinician: Rodney Lee - Patient Status Disposition: Transfer SNF Condition: Fair Functional capacity at discharge: uses cane/walker Overall status at discharge: patient is not back to baseline - Discharge Instructions Instructions: Peripheral Vascular Disorders (DC), Chronic Obstructive Pulmonary Disease (DC), Chronic Hypertension (DC) Follow Up With: Luba Dorantes PAC [Physician Chef Saucier] - 11/20/16 11:40 am Ernesto Pace DPM [Partnered Physician] - 11/28/16 1:00 pm (Patient needs to follow up in wound care on Saturday. per Dr. Pace.) - Diet and Activity Activity: as per physical therapy Diet: diabetic diet, low salt diet Interval History: 66-year-old male with past medical history of diabetes mellitus history of diabetic neuropathy. Patient came to the hospital with complain of hip pain in addition to right fifth metatarsal area erythema and swollen and foul odor and pain. X-rays show large soft soft tissue defect adjacent to fifth metatarsal joint osteomyelitis cannot be ruled out blood culture and wound culture obtained , We order empiric coverage with antibiotic including vancomycin and Zosyn .We consulted podiatry for further evaluation. Patient was complaining of nausea and had an episode of nonbilious nonbloody vomitus. Patient was admitted to the hospital during hospitalization patient had episode of chest pain and quickly became unresponsive and had pulseless electrical activity arrest patient was intubated there and placed in ICU had successful ACLS. EKG no acute changes cardiology was consulted and recommended to trend troponin check cardiac echo. CAT scan brain ordered as well as EEG and neurology was consulted. Cardiac enzyme was 0.0 1.0 2.0-4 echo normal ejection fraction normal right heart strain. Cardiology recommended supportive care. EEG done showed no acute seizure activity. He recommended to continue Keppra 500 mg twice a day, CAT scan showed remote left basal ganglia infarction. Neurology recommended to increase Keppra to 1000 twice a day he stated that the patient most likely has cerebral hypoxia secondary to respiratory insufficiency. Podiatry recommended ISIDRO to be done which showed a right was 0.98 left was 0.94 . Patient had incision and drainage of bone cortex for osteomyelitis of fifth metatarsal right open amputation of toe #5 was metatarsal #5 right food application of wound VAC culture obtained which show Proteus and enterococcus faecalis . Podiatry stated that the patient will need long-term antibiotic for 6 weeks with wound defect changes every Saturday. Patient has slow improvement of neurologic exam . Patient had diffuse pulmonary edema. Positive fluid bolus was 16 L. Patient had hemodialysis temporarily by nephrology team. Patient had marked improvement after hemodialysis which was temporary. Patient condition continued to improve during hospitalization. Patient had anemia and the anemia workup shows the patient had anemia secondary to iron deficiency anemia and anemia of chronic kidney disease patient received 2 units of blood in addition to iron therapy in addition to Aranesp. Podiatry continue to follow up patient during hospitalization he recommended to continue Unasyn twice a day for 3 weeks with wound VAC ,Intraop cultures: Proteus Vulgaris, enterococcus faecalis. WBC, ESR and CRP all trending down. WBC: 6.3, ESR: 22, CRP, Recommend IV Unasyn BID x 3 weeks with wound vac changes every --. Wound vac: black sponge, connected to 125 mmhg continuous suction. Patient will need a f/u with Dr. Pace in wound care with in one week of discharge from the hospital.Protective weight bearing with walker and cam boot. Hospital course: Mr. Regalado is a 61 year old male - Time Spent with Patient Total time spent providing and/or coordinating discharge services: Greater than 30 minutes - Constitutional Vitals: Temp Pulse Resp BP Pulse Ox 97.5 F L 71 18 170/70 95 11/28/16 09:01 11/28/16 09:01 11/28/16 09:01 11/28/16 11:19 11/28/16 09:01 General appearance: Present: morbidly obese, obese, answers questions appropriately
--- NOTE | 2016-11-28 15:30 | Physician Discharge Referral ---
ExtendedCare Referral Info Provider in Charge after Transfer: PCP Institutional Level of Care: Skilled - Diagnosis (1) Urinary retention Priority: Secondary Status: Acute (2) Constipation Priority: Secondary Status: Acute (3) Acute kidney injury superimposed on chronic kidney disease Priority: Secondary Status: Acute (4) Osteomyelitis of foot, right, acute Priority: Primary Status: Acute (5) Iron deficiency anemia Priority: Secondary Status: Acute (6) Anemia secondary to renal failure Priority: Secondary Status: Acute (7) Diabetes mellitus with neuropathy Priority: Secondary Status: Chronic (8) Cardiac arrest Priority: Primary Status: Resolved Prognosis: Fair - Transfer Medications Prescriptions: Ipratropium/Albuterol Neb [Duoneb] 3 ml IH [id number] #120 inhsol LevETIRAcetam [Keppra] 500 mg PO Q12HR #60 tablet Carvedilol [Coreg] 25 mg PO BIDWM #60 tablet Cyanocobalamin (B-12) [Vitamin B12] 1,000 mcg PO DAILY #90 tablet Ferrous Sulfate 325 mg PO BIDWM #180 tablet Insulin DETEMIR [Levemir] 20 unit SQ DAILY #5 vial Insulin LISPRO [HumaLOG] 0 units SQ ACHS #2 vial Magnesium Oxide [Mag-Ox] 400 mg PO BID #60 tablet Nicotine Patch [Nicoderm] 21 mg TD DAILY #30 patch.td24 Tamsulosin [Flomax] 0.4 mg PO DAILY #30 capsule Thiamine HCl 250 mg PO DAILY #90 tablet Home Medications: Aspirin [Adult Low Dose Aspirin EC] 81 mg PO DAILY 12/11/15 [History] Budesonide/Formoterol 160/4.5 [Symbicort 160/4.5] 2 puff IH BIDR 12/11/15 [ History] Citalopram Hydrobromide [Celexa] 20 mg PO DAILY 12/11/15 [History] Enalapril Maleate [Vasotec] 10 mg PO QPM 12/11/15 [History] Ergocalciferol (VITAMIN D2) [Vitamin D2 (50,000 UNIT)] 50,000 unit PO MÁRQUEZ [History] Gabapentin [Neurontin] 600 mg PO TID 12/11/15 [History] Hydroxyzine HCl 50 mg PO BID 12/11/15 [History] Insulin ASPART [Novolog] 36 - 38 unit SQ TIDWM 12/11/15 [History] Omeprazole [PriLOSEC] 20 mg PO BIDAC 12/11/15 [History] Ropinirole [Requip] 1 mg PO HS 12/11/15 [History] Rosuvastatin [Crestor] 40 mg PO DAILY 12/11/15 [History] SitaGLIPtin [Januvia] 100 mg PO DAILY 12/11/15 [History] Trazodone HCl [TraZODone] 100 mg PO HS 12/11/15 [History] Oxycodone HCl/Acetaminophen [Percocet 10-325 mg Tablet] 1 tab PO Q4H PRN #20 tablet 12/15/15 [Rx] Amlodipine [Norvasc] 5 mg PO DAILY #30 tablet 08/08/16 [Rx] Ampicillin/Sulbactam [Unasyn] 3,000 mg IVPB BID 20 Days 11/28/16 [Rx] Carvedilol [Coreg] 25 mg PO BIDWM #60 tablet 11/28/16 [Rx] Cyanocobalamin (B-12) [Vitamin B12] 1,000 mcg PO DAILY #90 tablet 11/28/16 [Rx] Ferrous Sulfate 325 mg PO BIDWM #180 tablet 11/28/16 [Rx] Furosemide [Lasix] 40 mg PO BID #60 11/28/16 [Rx] Insulin DETEMIR [Levemir] 20 unit SQ DAILY #5 vial 11/28/16 [Rx] Insulin LISPRO [HumaLOG] 0 units SQ ACHS #2 vial 11/28/16 [Rx] Ipratropium/Albuterol Neb [Duoneb] 3 ml IH [id number] #120 inhsol 11/28/16 [Rx] Lactobacillus [Culturelle] 1 each PO BID #60 cap.sprink 11/28/16 [Rx] LevETIRAcetam [Keppra] 500 mg PO Q12HR #60 tablet 11/28/16 [Rx] Magnesium Oxide [Mag-Ox] 400 mg PO BID #60 tablet 11/28/16 [Rx] Nicotine Patch [Nicoderm] 21 mg TD DAILY #30 patch.td24 11/28/16 [Rx] Polyethylene Glycol 3350 [MiraLAX] 17 gm PO DAILY #30 powd.pack 11/28/16 [Rx] Sennosides [Senna] 8.6 mg PO DAILY #06 tablet 11/28/16 [Rx] Tamsulosin [Flomax] 0.4 mg PO DAILY #30 capsule 11/28/16 [Rx] Thiamine HCl 250 mg PO DAILY #90 tablet 11/28/16 [Rx] Allergies/Adverse Reactions: Allergies acetaminophen [From Darvocet-N] Allergy (Verified 12/11/15 11:46) Hives ibuprofen Allergy (Verified 12/11/15 11:46) Hives propoxyphene [From Darvocet-N] Allergy (Verified 12/11/15 11:46) Hives tramadol [From Ultram] Allergy (Verified 12/11/15 11:46) Hives - Respiratory Orders Smoking Cessation: Smoking cessation has been advised. For more information, call the [place] Tobacco Quit Line at 2-088-QWFD-NOW. - Lab Orders Lab Orders: CBC CERTIFICATION: I certify that the transfer of the above named patient to an Extended Care Facility is necessary for the continuing treatment of the diagnosis listed. The above information is true and accurate reflection of patient's current condition. Confidential - Redisclosure prohibited without a patient's written consent.
--- NOTE | 2016-11-28 16:43 | Nephrology Progress Note ---
Date of Encounter: 11/28/16 Time of Encounter: 16:41 - Assessment and Plan (1) Acute kidney injury superimposed on chronic kidney disease Current Visit: Yes Status: Acute Creatinine improving. Patient removed his line. No acute need for renal replacement therapy. Will follow labs. (2) Anemia Current Visit: Yes Status: Acute Monitor for bleeding and transfuse as needed. Iron deficiency anemia. On oral iron. Qualifiers: Anemia type: other cause Other causes of anemia: chronic disease, kidney Qualified Code(s): N18.9 - Chronic kidney disease, unspecified; D63.1 - Anemia in chronic kidney disease (3) CKD (chronic kidney disease) stage 3, GFR 30-59 ml/min Current Visit: Yes Status: Chronic Anticipate recovery to baseline. (4) Acute respiratory failure Current Visit: Yes Status: Resolved Extubated and on nasal cannula denies dyspnea. Per primary team. Qualifiers: Respiratory failure complication: unspecified whether with hypoxia or hypercapnia Qualified Code(s): J96.00 - Acute respiratory failure, unspecified whether with hypoxia or hypercapnia Subjective Principal diagnosis: Foot infection Interval history: Patient seen and evaluated. No new complaint. Denies chest pain or shortness of breath. Objective - Vital Signs Vital signs: Vital Signs Temp Pulse Resp BP Pulse Ox 11/28/16 11:19 170/70 11/28/16 09:01 97.5 F L 71 18 158/57 95 11/28/16 04:47 97.7 F 67 15 156/61 95 11/27/16 23:41 97.6 F 67 15 165/59 94 L 11/27/16 20:13 16 95 11/27/16 19:48 98.2 F 61 18 170/73 93 L Intake and Output 11/28/16 11/28/16 11/28/16 07:59 15:59 23:59 Intake Total 300 / 300 100 / 100 Output Total 1250 / 1250 200 / 200 Balance -950 / -950 -100 / -100 Intake: IV Fluids 100 / 100 100 / 100 Unasyn 3,000 MG In 0.9 % 100 / 100 Sodium Chloride (Mini-Bag +) 100 ML @ 200 mls/hr IVPB Q6HR ALEX Rx#: [id number] Magnesium Sulfate 2 gm In 100 / 100 100 ml @ 92.593 mls/hr IVPB Q1H ALEX Rx#: [id number] Oral 200 / 200 0 / 0 Output: Urine 850 / 850 200 / 200 Straight Cath 400 / 400 Wound Drainage 0 / 0 Right Lateral Foot 0 / 0 Other: Meal REFUSED/BREAKFAST Percent of Meal Consumed 0% Stool Size Moderate Stool Consistency formed Stool Color Brown # Voids 1 Weight 104.7 kg Blood Glucose* 163 Patient Weight 11/28/16 23:59 Weight 104.7 kg - General Appearance General appearance: Present: well-developed, well-nourished EENT: Present: ATNC Neck: Present: supple Additional Comments: respirations are unlabored. Cardiology: Present: regular rate Neurologic: Present: alert and oriented x3 Psychiatric: Present: mood/affect appropriate - Lab 11/28/16 03:45 11/28/16 03:45 Most recent lab results ABG pH 7.41 pH Units (7.32-7.45) 11/21/16 05:18 ABG pCO2 47 mmHg (35-45) H 11/21/16 05:18 ABG pO2 121 mmHg (85-104) H 11/21/16 05:18 ABG HCO3 29.8 mEQ/L (21-27) H 11/21/16 05:18 ABG O2 Saturation 99 % (95-98) H 11/21/16 05:18 Calcium 8.7 mg/dL (8.6-10.8) 11/28/16 03:45 Phosphorus 2.9 mg/dL (2.3-4.7) 11/28/16 03:45 Magnesium 1.1 mg/dL (1.6-2.6) L 11/28/16 03:45 Urine Creatinine 47 mg/dL 11/12/16 15:20 Urine Sodium 65.0 mEq/L 11/12/16 15:20 Consult Discharge Plan - Plan Instructions: Peripheral Vascular Disorders (DC), Chronic Obstructive Pulmonary Disease (DC), Chronic Hypertension (DC) Referrals: Luba Dorantes PAC [Physician [employer]pper] - 11/20/16 11:40 am Ernesto Pace DPM [Partnered Physician] - 11/28/16 1:00 pm (Patient needs to follow up in wound care on Saturday. per Dr. Pace.) Prescriptions: Ipratropium/Albuterol Neb [Duoneb] 3 ml IH [id number] #120 inhsol LevETIRAcetam [Keppra] 500 mg PO Q12HR #60 tablet Carvedilol [Coreg] 25 mg PO BIDWM #60 tablet Cyanocobalamin (B-12) [Vitamin B12] 1,000 mcg PO DAILY #90 tablet Ferrous Sulfate 325 mg PO BIDWM #180 tablet Insulin DETEMIR [Levemir] 20 unit SQ DAILY #5 vial Insulin LISPRO [HumaLOG] 0 units SQ ACHS #2 vial Lactobacillus [Culturelle] 1 each PO BID #60 cap.sprink Magnesium Oxide [Mag-Ox] 400 mg PO BID #60 tablet Nicotine Patch [Nicoderm] 21 mg TD DAILY #30 patch.td24 Polyethylene Glycol 3350 [MiraLAX] 17 gm PO DAILY #30 powd.pack Sennosides [Senna] 8.6 mg PO DAILY #06 tablet Tamsulosin [Flomax] 0.4 mg PO DAILY #30 capsule Thiamine HCl 250 mg PO DAILY #90 tablet
== END 2016-11-28 17:52 | DRG 314 ==
LOC: 3NENU 19:50 → EMEROO 19:50 → 3NENU 23:51 → SUATTDRO 11-05 06:10 → 3BNU 11-10 15:57 → 2NNU 11-16 04:53 → ICNU 11-17 17:17 → 3ANU 11-23 09:14
PROVIDERS: ADMIT Family Medicine; ATTEND Internal Medicine

== ENCOUNTER 2016-12-02 12:14 | Inpatient (IN) ==
[~2016-12-02 12:14] MED LIST: *HR* Etomidate 40 MG/20 ML VIAL IVP ONE; *HR* Midazolam HCl 5 MG/5 ML VIAL IVP ONE; *HR* Rocuronium Bromide 50 MG/5 ML VIAL IVC ONE; *HR* Succinylcholine 200 MG/10 ML VIAL IVP ONE
[2016-12-02 12:32] LABS: Basophils % 0.3 %; Eosinophils # 0.3 K/mcL (0.0-0.6); Eosinophils % 4.5 %; Hematocrit 25.1 % (37.5-50.1); Immature Granulocytes % 0.6 % (0-4); Lymphocytes # 1.2 K/mcL (0.6-4.6); Lymphocytes % 17.7 %; Mean Corpuscular HGB Conc 31.9 g/dL (31.6-35.5); Mean Corpuscular Hemoglobin 27.9 pg (28.0-33.3); Mean Corpuscular Volume 87.5 fL (83.0-100.0); Mean Platelet Volume 8.9 fL (9.4-12.4); Monocytes # 0.4 K/mcL (0.0-1.3); Monocytes % 6.2 %; Neutrophils # 4.9 K/mcL (1.6-8.9); Platelet Count 188 K/mcL (140-400); Red Blood Count 2.87 M/mcL (4.19-5.50); Red Cell Distribution Width 15.8 % (11.5-14.5); Segmented Neutrophils % 70.7 %
[2016-12-02 12:36] LABS: Bilirubin,Urine Negative (Negative); Blood,Urine Large (Negative); Clarity,Urine Cloudy (Clear); Color,Urine Yellow (Yellow); Glucose,Urine (UA) 250 mg/dL (Normal); Ketones,Urine Trace mg/dL (Negative); Leukocyte Esterase,Urine Negative (Negative); Nitrite,Urine Negative (Negative); Protein,Urine >=300 mg/dL (Neg-Trace); Specific Gravity,Urine 1.022 (1.010-1.025); Urobilinogen,Urine Normal (Normal)
[2016-12-02 12:37] LABS: ABG Base Excess 7.7 mEq/L (-2.0 to 3.0); ABG HCO3 33.4 mEQ/L (21-27); ABG Oxygen Saturation 99 % (95-98); ABG PCO2 54 mmHg (35-45); ABG PO2 115 mmHg (85-104); ABG TCO2 35.1 mEq/L (20-26); Blood Gas FiO2 100 %
[2016-12-02 12:38] LABS: RBC,Urine 15-30 per hpf (0-3); Squamous Epithelial Cell,Urine Many per lpf (None-Few)
--- NOTE | 2016-12-02 12:44 | Emergency Department Note ---
Disposition Clinical Impression: Hypoxia, DANY (acute kidney injury), Myoclonic jerking Altered mental status Qualifiers: Altered mental status type: unspecified Qualified Code(s): R41.82 - Altered mental status, unspecified Pneumonia Qualifiers: Aspiration pneumonia type: unspecified Laterality: left Lung location: unspecified part of lung Disposition: Admitted As Inpatient Condition: Fair Forms: ED Satisfaction Letter General Adult HPI - General Chief complaint: ED Shortness of Breath/Dyspnea Stated complaint: EDDIE Time Seen by Provider: 12/02/16 12:18 Source: EMS Limitations: altered mental status Nursing Notes Reviewed: Yes Vital Signs Reviewed: Yes - History of Present Illness HPI Narrative: 61 y/o male from local nursing facility. He was d/c from [facility] on 11/28. Admitted on 10/26 due to osteomyelitis of the foot and on antibiotics. During his stay he had a PEA arrest with ROSC. It was presumed to be caused by a hypoxic episode of unclear etiology. Not cathed. He has had some tremors over the last few days and was seen in our ER 2 days ago for tremors. He had a negative head CT and negative CXR. Aside from mild increase in his Na and increase in his Creatinine his labwork appeared to be baseline. He was sent to our ER today due to his tremors, his refusing his medications, and a "SPO2 reading of 60% while on a non-rebreather". On arrival he is on a nonrebreather with SPO2 of 100%. His only complaint is he is hoarse. He is still able to phonate with a raspy voice. Pain Scale: 0 Improves with: nothing Worsens with: nothing Associated symptoms: Reports: denies other symptoms Treatments Prior to Arrival: none - Related Data Home Medications Medication Instructions Recorded Confirmed Aspirin [Adult Low Dose Aspirin EC] 81 mg PO DAILY 12/11/15 11/05/16 Budesonide/Formoterol 160/4.5 2 puff IH BIDR 12/11/15 11/05/16 [Symbicort 160/4.5] Citalopram Hydrobromide [Celexa] 20 mg PO DAILY 12/11/15 11/05/16 Enalapril Maleate [Vasotec] 10 mg PO QPM 12/11/15 11/05/16 Ergocalciferol (VITAMIN D2) 50,000 unit PO MÁRQUEZ 12/11/15 11/05/16 [Vitamin D2 (50,000 UNIT)] Gabapentin [Neurontin] 600 mg PO TID 12/11/15 11/05/16 Hydroxyzine HCl 50 mg PO BID 12/11/15 11/05/16 Insulin ASPART [Novolog] 36 - 38 unit SQ TIDWM 12/11/15 11/05/16 Omeprazole [PriLOSEC] 20 mg PO BIDAC 12/11/15 11/05/16 Ropinirole [Requip] 1 mg PO HS 12/11/15 11/05/16 Rosuvastatin [Crestor] 40 mg PO DAILY 12/11/15 11/05/16 SitaGLIPtin [Januvia] 100 mg PO DAILY 12/11/15 11/05/16 Trazodone HCl [TraZODone] 100 mg PO HS 12/11/15 11/05/16 Previous Rx's Medication Instructions Recorded Oxycodone HCl/Acetaminophen 1 tab PO Q4H PRN #20 tablet 12/15/15 [Percocet 10-325 mg Tablet] Amlodipine [Norvasc] 5 mg PO DAILY #30 tablet 08/08/16 Ampicillin/Sulbactam [Unasyn] 3,000 mg IVPB BID 20 Days 11/28/16 Carvedilol [Coreg] 25 mg PO BIDWM #60 tablet 11/28/16 Cyanocobalamin (B-12) [Vitamin B12] 1,000 mcg PO DAILY #90 tablet 11/28/16 Ferrous Sulfate 325 mg PO BIDWM #180 tablet 11/28/16 Furosemide [Lasix] 40 mg PO BID #60 11/28/16 Insulin DETEMIR [Levemir] 20 unit SQ DAILY #5 vial 11/28/16 Insulin LISPRO [HumaLOG] 0 units SQ ACHS #2 vial 11/28/16 Ipratropium/Albuterol Neb [Duoneb] 3 ml IH [id number] #120 inhsol 11/28/16 Lactobacillus [Culturelle] 1 each PO BID #60 cap.sprink 11/28/16 LevETIRAcetam [Keppra] 500 mg PO Q12HR #60 tablet 11/28/16 Magnesium Oxide [Mag-Ox] 400 mg PO BID #60 tablet 11/28/16 Nicotine Patch [Nicoderm] 21 mg TD DAILY #30 patch.td24 11/28/16 Polyethylene Glycol 3350 [MiraLAX] 17 gm PO DAILY #30 powd.pack 11/28/16 Sennosides [Senna] 8.6 mg PO DAILY #06 tablet 11/28/16 Tamsulosin [Flomax] 0.4 mg PO DAILY #30 capsule 11/28/16 Thiamine HCl 250 mg PO DAILY #90 tablet 11/28/16 Allergies Allergy/AdvReac Type Severity Reaction Status Date / Time acetaminophen Allergy Hives Verified 12/11/15 11:46 [From Darvocet-N] ibuprofen Allergy Hives Verified 12/11/15 11:46 propoxyphene Allergy Hives Verified 12/11/15 11:46 [From Darvocet-N] tramadol [From Ultram] Allergy Hives Verified 12/11/15 11:46 All systems ED: reviewed and negative except as stated. Constitutional: Denies: fever Eyes: Denies: vision change ENT ED: Reports: throat pain Cardiovascular: Denies: chest pain Respiratory: Reports: cough (mild) Gastrointestinal: Denies: abdominal pain, nausea, vomiting Genitourinary: Denies: dysuria Musculoskeletal: Denies: back pain Past Medical History - Past Medical History Medical history: Reports: arthritis, COPD, diabetes, GERD, hepatitis, hyperlipidemia, hypertension, osteoporosis, renal disease, syncope Surgical history: Reports: cataract, LE stent(s), orthopedic, other Psychiatric history: Reports: anxiety, depression - Social History Smoking Status: Current every day smoker Smokeless Tobacco Status: No Alcohol use: Reports: none Drug use: Reports: none Physical Exam - General General appearance: alert - Head Head exam: atraumatic - Eye Eye exam: Present: normal appearance - ENT ENT exam: other (dry mucous membranes with excoriation on hard palate) - Respiratory Respiratory exam: Present: normal lung sounds bilaterally, other (tachypnea) - Abdominal Exam Abdominal exam: Present: soft, Non-Tender - Extremities Exam Extremities exam: Present: other (chronic wounds to LLE.) - Back Exam Back exam: Present: normal inspection - Neurological Exam Neurological exam: Present: alert, CN II-XII intact - Skin Skin exam: Present: warm, dry Course Course Narrative: He is alert and follows commands appropriately. Lungs are clear but he does have tachypnea. He voices that his only concern is his sore throat and hoarse voice. He also admits to a small cough. ABG does not show co2 retention. Not acidotic. LActic acid not elevated. Will obtain CT neck He has a normal O2 level on ABG but while on oxygen. Will obtain V/Q scan as CTA cannot be performed with his Creatinine level. - Reevaluation(s) Reevaluation #1: Found to be febrile. Infiltrate on Chest CT. Will give empiric ABX. and admit. head CT and neck CT unremarkable. Accepted by [facility] Have given ativan x2 due to myoclonic jerks. Vital Signs Temperature 0 F L 12/02/16 12:16 Pulse Rate 77 12/02/16 12:16 Respiratory Rate 30 12/02/16 12:16 Blood Pressure 114/67 12/02/16 12:16 O2 Sat by Pulse Oximetry 97 12/02/16 12:16 Temperature 100.6 F H 12/02/16 13:24 Pulse Rate 71 12/02/16 14:07 Respiratory Rate 24 12/02/16 14:07 Blood Pressure 162/76 12/02/16 14:07 O2 Sat by Pulse Oximetry 80 L 12/02/16 14:07 Oxygen Delivery Oxygen Delivery Venti Mask Medical Decision Making - Medical Records Medical records reviewed: Yes I reviewed the patient's medical records. - Lab Data Lab results reviewed: Yes I reviewed the patient's lab results. Result diagrams: 12/02/16 12:23 12/02/16 12:23 Lab Results 12/02/16 12/02/16 12/02/16 Range/Units 12:23 12:23 12:23 WBC 6.9 (4.3-11.1) K/mcL RBC 2.87 L (4.19-5.50) M/mcL Hgb 8.0 L (12.9-16.9) g/dL Hct 25.1 L (37.5-50.1) % MCV 87.5 (83.0-100.0) fL MCH 27.9 L (28.0-33.3) pg MCHC 31.9 (31.6-35.5) g/dL RDW 15.8 H (11.5-14.5) % Plt Count 188 (140-400) K/mcL MPV 8.9 L (9.4-12.4) fL Immature Gran % 0.6 (0-4) % Seg Neutrophils % 70.7 % Lymphocytes % 17.7 % Monocytes % 6.2 % Eosinophils % 4.5 % Basophils % 0.3 % Neutrophils # 4.9 (1.6-8.9) K/mcL Lymphocytes # 1.2 (0.6-4.6) K/mcL Monocytes # 0.4 (0.0-1.3) K/mcL Eosinophils # 0.3 (0.0-0.6) K/mcL Basophils # 0.0 (0.0-0.2) K/mcL ABG pH (7.32-7.45) pH Units ABG pCO2 (35-45) mmHg ABG pO2 (85-104) mmHg ABG HCO3 (21-27) mEQ/L ABG Total CO2 (20-26) mEq/L ABG O2 Saturation (95-98) % ABG Base Excess (-2.0 to 3.0) mEq/L Blood Gas Modality Inspired O2 % Sodium 147 H (136-145) mEq/L Potassium 3.8 (3.5-4.5) mEq/L Chloride 109 (98-109) mEq/L Carbon Dioxide 27 (19-29) mEq/L BUN 37 H D (8-26) mg/dL Creatinine 2.57 H (0.72-1.25) mg/dL Est GFR ( Amer) 31 L (> 60) Est GFR (Non-Af Amer) 26 L (> 60) BUN/Creatinine Ratio 14 (6-26) Glucose 122 H (70-99) mg/dL Calculated Osmolality 314 H (280-300) Lactic Acid 1.6 (0.5-2.2) mmol/L Calcium 8.3 L (8.6-10.8) mg/dL Phosphorus 3.1 (2.3-4.7) mg/dL Magnesium 1.7 (1.6-2.6) mg/dL Total Bilirubin 0.4 (0.2-1.2) mg/dL Direct Bilirubin 0.2 (0.0-0.5) mg/dL Indirect Bilirubin 0.2 (0.0-1.2) mg/dL AST 13 (5-34) Units/L ALT 17 (0-55) Units/L Alkaline Phosphatase 92 (38-126) Units/L Troponin I (0-0.03) ng/mL B-Natriuretic Peptide (0-100) pg/mL Serum Total Protein 6.6 (6.0-8.3) g/dL Albumin 2.5 L (3.5-5.0) g/dL Globulin 4.1 H (2.4-3.5) g/dL Albumin/Globulin Ratio 0.6 L (1.1-2.2) Urine Color (Yellow) Urine Clarity (Clear) Urine pH (5.0-8.0) pH Units Ur Specific [place] (1.010-1.025) Urine Protein (Neg-Trace) mg/dL Urine Glucose (UA) (Normal) mg/dL Urine Ketones (Negative) mg/dL Urine Blood (Negative) Urine Nitrite (Negative) Urine Bilirubin (Negative) Urine Urobilinogen (Normal) mg/dL Ur Leukocyte Esterase (Negative) Urine Microscopic RBC (0-3) per hpf Urine Microscopic WBC (0-3) per hpf Ur Squamous Epith Cells (None-Few) per lpf Urine Bacteria (None-Few) per hpf Hyaline Casts (None-Few) per lpf Ur Culture Indicated? (NO) 12/02/16 12/02/16 12/02/16 Range/Units 12:23 12:23 12:27 WBC (4.3-11.1) K/mcL RBC (4.19-5.50) M/mcL Hgb (12.9-16.9) g/dL Hct (37.5-50.1) % MCV (83.0-100.0) fL MCH (28.0-33.3) pg MCHC (31.6-35.5) g/dL RDW (11.5-14.5) % Plt Count (140-400) K/mcL MPV (9.4-12.4) fL Immature Gran % (0-4) % Seg Neutrophils % % Lymphocytes % % Monocytes % % Eosinophils % % Basophils % % Neutrophils # (1.6-8.9) K/mcL Lymphocytes # (0.6-4.6) K/mcL Monocytes # (0.0-1.3) K/mcL Eosinophils # (0.0-0.6) K/mcL Basophils # (0.0-0.2) K/mcL ABG pH 7.40 (7.32-7.45) pH Units ABG pCO2 54 H (35-45) mmHg ABG pO2 115 H (85-104) mmHg ABG HCO3 33.4 H (21-27) mEQ/L ABG Total CO2 35.1 H (20-26) mEq/L ABG O2 Saturation 99 H (95-98) % ABG Base Excess 7.7 H (-2.0 to 3.0) mEq/L Blood Gas Modality NRB MASK Inspired O2 100 % Sodium (136-145) mEq/L Potassium (3.5-4.5) mEq/L Chloride (98-109) mEq/L Carbon Dioxide (19-29) mEq/L BUN (8-26) mg/dL Creatinine (0.72-1.25) mg/dL Est GFR ( Amer) (> 60) Est GFR (Non-Af Amer) (> 60) BUN/Creatinine Ratio (6-26) Glucose (70-99) mg/dL Calculated Osmolality (280-300) Lactic Acid (0.5-2.2) mmol/L Calcium (8.6-10.8) mg/dL Phosphorus (2.3-4.7) mg/dL Magnesium (1.6-2.6) mg/dL Total Bilirubin (0.2-1.2) mg/dL Direct Bilirubin (0.0-0.5) mg/dL Indirect Bilirubin (0.0-1.2) mg/dL AST (5-34) Units/L ALT (0-55) Units/L Alkaline Phosphatase (38-126) Units/L Troponin I 0.03 (0-0.03) ng/mL B-Natriuretic Peptide 365 H (0-100) pg/mL Serum Total Protein (6.0-8.3) g/dL Albumin (3.5-5.0) g/dL Globulin (2.4-3.5) g/dL Albumin/Globulin Ratio (1.1-2.2) Urine Color (Yellow) Urine Clarity (Clear) Urine pH (5.0-8.0) pH Units Ur Specific [place] (1.010-1.025) Urine Protein (Neg-Trace) mg/dL Urine Glucose (UA) (Normal) mg/dL Urine Ketones (Negative) mg/dL Urine Blood (Negative) Urine Nitrite (Negative) Urine Bilirubin (Negative) Urine Urobilinogen (Normal) mg/dL Ur Leukocyte Esterase (Negative) Urine Microscopic RBC (0-3) per hpf Urine Microscopic WBC (0-3) per hpf Ur Squamous Epith Cells (None-Few) per lpf Urine Bacteria (None-Few) per hpf Hyaline Casts (None-Few) per lpf Ur Culture Indicated? (NO) 12/02/16 Range/Units 12:27 WBC (4.3-11.1) K/mcL RBC (4.19-5.50) M/mcL Hgb (12.9-16.9) g/dL Hct (37.5-50.1) % MCV (83.0-100.0) fL MCH (28.0-33.3) pg MCHC (31.6-35.5) g/dL RDW (11.5-14.5) % Plt Count (140-400) K/mcL MPV (9.4-12.4) fL Immature Gran % (0-4) % Seg Neutrophils % % Lymphocytes % % Monocytes % % Eosinophils % % Basophils % % Neutrophils # (1.6-8.9) K/mcL Lymphocytes # (0.6-4.6) K/mcL Monocytes # (0.0-1.3) K/mcL Eosinophils # (0.0-0.6) K/mcL Basophils # (0.0-0.2) K/mcL ABG pH (7.32-7.45) pH Units ABG pCO2 (35-45) mmHg ABG pO2 (85-104) mmHg ABG HCO3 (21-27) mEQ/L ABG Total CO2 (20-26) mEq/L ABG O2 Saturation (95-98) % ABG Base Excess (-2.0 to 3.0) mEq/L Blood Gas Modality Inspired O2 % Sodium (136-145) mEq/L Potassium (3.5-4.5) mEq/L Chloride (98-109) mEq/L Carbon Dioxide (19-29) mEq/L BUN (8-26) mg/dL Creatinine (0.72-1.25) mg/dL Est GFR ( Amer) (> 60) Est GFR (Non-Af Amer) (> 60) BUN/Creatinine Ratio (6-26) Glucose (70-99) mg/dL Calculated Osmolality (280-300) Lactic Acid (0.5-2.2) mmol/L Calcium (8.6-10.8) mg/dL Phosphorus (2.3-4.7) mg/dL Magnesium (1.6-2.6) mg/dL Total Bilirubin (0.2-1.2) mg/dL Direct Bilirubin (0.0-0.5) mg/dL Indirect Bilirubin (0.0-1.2) mg/dL AST (5-34) Units/L ALT (0-55) Units/L Alkaline Phosphatase (38-126) Units/L Troponin I (0-0.03) ng/mL B-Natriuretic Peptide (0-100) pg/mL Serum Total Protein (6.0-8.3) g/dL Albumin (3.5-5.0) g/dL Globulin (2.4-3.5) g/dL Albumin/Globulin Ratio (1.1-2.2) Urine Color Yellow (Yellow) Urine Clarity Cloudy A (Clear) Urine pH 5.0 (5.0-8.0) pH Units Ur Specific [place] 1.022 (1.010-1.025) Urine Protein >=300 H (Neg-Trace) mg/dL Urine Glucose (UA) 250 H (Normal) mg/dL Urine Ketones Trace H (Negative) mg/dL Urine Blood Large H (Negative) Urine Nitrite Negative (Negative) Urine Bilirubin Negative (Negative) Urine Urobilinogen Normal (Normal) mg/dL Ur Leukocyte Esterase Negative (Negative) Urine Microscopic RBC 15-30 H (0-3) per hpf Urine Microscopic WBC 5-15 H (0-3) per hpf Ur Squamous Epith Cells Many H (None-Few) per lpf Urine Bacteria Few (None-Few) per hpf Hyaline Casts Few (None-Few) per lpf Ur Culture Indicated? YES A (NO) - Radiology Data Radiology results reviewed: Yes I reviewed the patient's radiology results. - EKG Data EKG #1 EKG attestation: Yes I reviewed and interpreted this EKG. EKG shows normal: sinus rhythm Rate: normal Rhythm: NSR ST segment depression in: v4 When compared to previous EKG there are: no significant changes Interpretation: other (1mm of ST depression in lead v4 only without other changes.)
[2016-12-02 12:46] LABS: Calcium 8.3 mg/dL (8.6-10.8); Potassium 3.8 mEq/L (3.5-4.5)
[2016-12-02 12:47] LABS: Bacteria,Urine Few per hpf (None-Few); Hyaline Casts,Urine Few per lpf (None-Few)
[2016-12-02 13:03] LABS: Albumin 2.5 g/dL (3.5-5.0); Albumin/Globulin Ratio 0.6 (1.1-2.2); Bilirubin,Direct 0.2 mg/dL (0.0-0.5); Bilirubin,Indirect 0.2 mg/dL (0.0-1.2); Bilirubin,Total 0.4 mg/dL (0.2-1.2); Globulin 4.1 g/dL (2.4-3.5); Magnesium 1.7 mg/dL (1.6-2.6); Phosphorous 3.1 mg/dL (2.3-4.7); Total Protein 6.6 g/dL (6.0-8.3)
[2016-12-02] MEDS ORDERED: *HR* LORazepam 2 MG/ML VIAL IVP ONE ×3 (13:19→15:18)
[2016-12-02] MEDS ORDERED: Piperacillin/Tazobactam 3.375 GM in D5% in Water (Mini-Bag+) 100 ML IVPB ONE (14:00)
[2016-12-02] MEDS ORDERED: Levofloxacin 750 MG/150 ML 750 MG/150 ML BAG IVPB ONE (14:01)
[2016-12-02] MEDS ORDERED: 0.9 % Sodium Chloride 1,000 ML IVC ONE ×2 (14:38→19:49)
--- NOTE | 2016-12-02 14:53 | Emergency Department Note ---
START Narrative - START START: I examined this patient and my medical decision-making was reviewed with the [employer]/PA/Advanced Practice Nurse/Resident Physician. I agree with the documented findings, disposition and treatment plan as described except to the extent set forth below. Patient to the emergency department for shortness of breath low pulse ox. Sent from [facility]. Patient recently sent there after a prolonged admission here for an osteomyelitis in an inpatient PE a cardiac arrest. He was sent here 2 days ago for tremors and discharge back to [facility]. Today they found him with a pulse ox in the 60s and breathing rapidly. Patient states his only complaint that he is having trouble talking and felt like his throat hurts. On exam he is awake alert. Speaks appropriately. He is having intermittent tremors of the upper and lower extremities. Lungs are clear. He is hypoxic on a nasal cannula. Plan. The patient's x-ray was clear. If the CT of his chest that shows bilateral lower lobe infiltrates. This is likely causing his hypoxia. Tolerating BiPAP well at this time. ABG does not show any hypercapnia. PE considered the patient is tremoring and V/Q tech and uncomfortable putting him on the table. Will give IV antibiotics. Patient will be admitted. 40 minutes of critical care exclusive of separately billable procedures.
[2016-12-02] MEDS ORDERED: Ipratropium/Albuterol Neb 3 ML IH ONE (15:37)
[2016-12-02] MEDS ORDERED: Naloxone 0.4 MG/ML INJ IVP PRN ×2 (16:17→17:20)
[2016-12-02] MEDS ORDERED: Acetaminophen 650 MG RECTAL SUPP RC PRN (16:17)
[2016-12-02] MEDS ORDERED: Ipratropium/Albuterol Neb 3 ML IH SCH (16:30)
[2016-12-02] MEDS ORDERED: 0.9 % Sodium Chloride 1,000 ML IVC SCH (16:30)
--- NOTE | 2016-12-02 16:31 | Internal Med History&Physical ---
Date of Encounter: 12/02/16 Time of Encounter: 15:45 Assessment and Plan (1) Metabolic encephalopathy Current visit: Yes Status: Acute Patient is encephalopathic. I will avoid sedatives at this much as possible. Several of his home medications could be contributing to this in addition to infection and hypoxia. We will hold trazodone benzodiazepine and opiates unless strictly necessary. (2) Aspiration pneumonia Current visit: Yes Status: Acute I highly suspect bilateral aspiration pneumonia of both lower lobes due to peripheral mental status and findings of infiltrates on the chest CT. Patient has a fever of 100.6 and I have rechecked his rectal temperature 1 hour later and obtain 102.4. Given his recent history of intubation we will treat him more Zosyn and Levaquin and Zyvox for healthcare associated pneumonia. Obtain sputum culture. Obtain blood cultures. Qualifiers: Aspiration pneumonia type: due to regurgitated food Laterality: bilateral Lung location: lower lobe of lung Qualified Code(s): J69.0 - Pneumonitis due to inhalation of food and vomit (3) Respiratory distress Current visit: Yes Status: Acute (4) Acute respiratory failure with hypoxia Current visit: Yes Status: Acute Patint is on BiPAP. We'll cotinue this, repeat ABG, increase IPAP to 16 to improve ventilation, keep IPAP at 8 or higher to improve recruitment. will give inhaled albuterol and Atrovent. We will reassess frequently both clinically and by blood gases for possible need for advanced airway and mechanical ventilation. The patient is highly unstable and there is high probability of emergent and significant clinical decompensation with potential impairment of respiratory system. I have performed 40 minutes of critical care time which involved decision making of high complexity to assess, manipulate, and support vital organ system, in order to prevent further life threatening deterioration of the patient's condition. The time involved in the performance of any procedures was not counted toward critical care time and will be billed separately. Critical care time was spent examining the patient, reviewing EKGs, telemetry tracing, imaging studies and laboratory data, discussing the case with the emergency department physicians, ordering medications, managing noninvasive positive pressure ventilation and reevaluating for clinical response ordered medications. (5) Polypharmacy Current visit: Yes Status: Acute Patient subjected to polypharmacy which could be partly responsible for her myoclonic jerks. I will hold her Neurontin and resume at renally adjusted dose. Check Keppra level. Careful medication reconciliation on discharge. (6) DANY (acute kidney injury) Current visit: Yes Status: Acute We will treat with IV fluids. (7) Myoclonic jerking Current visit: Yes Status: Acute Could be a manifestation of seizure versus encephalopathy. We will call consult neurology. Continue with Keppra. (8) Acute kidney injury superimposed on chronic kidney disease Current visit: No Status: Acute (9) DVT prophylaxis Current visit: No Status: Acute Renal adjusted Lovenox dosing. (10) Toe ulcer due to DM Current visit: No Status: Acute (11) COPD (chronic obstructive pulmonary disease) Current visit: No Status: Chronic Inhaled DuoNeb. 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 Regalado is a 61 year old male with extensive past medical history significant for uncontrolled type 2 diabetes, hypertension, CAD, recent prolonged admission for diabetic foot ulcer and osteomyelitis of metatarsal bone complicated by cardiac arrest. He was successfully resuscitated and treated in the ICU for 1 week. He was discharged to a assisted 4 days ago. He cannot provide any history due to altered mental status. The patient is currently nonverbal. Per records the patient was sent to the emergency department 2 days ago for tremors at that time it was considered to be back to baseline and was returned to her assisted. Today he was sent for reevaluation of tremors and hypoxia. He was placed on a nonrebreather mask and she remained hypoxic and therefore was placed on BiPAP in the emergency department. He was treated with IV antibiotics and referred for admission. Past medical history family history social history and review of systems only pertinent chart review because the patient cannot provide any history secondary to severe encephalopathy. Past Med Surg Social Fam HX - Past Medical History Medical history: arthritis, COPD, diabetes, GERD, hepatitis, hyperlipidemia, hypertension, osteoporosis, renal disease, syncope Psychiatric history: anxiety, depression - Past Surgical History Surgical History: cataract, LE stent(s), orthopedic, other - Social History Smoking Status: Current every day smoker Smokeless Tobacco Status: No Alcohol use: none Drug use: none - Family History Mother Living Status: Hx Family Cardiac Disorders: Yes (htn) Hx Family Respiratory Disorders: No Hx Family Cancer: Yes Hx Family Endocrine Disorder: Yes (dm) Father Living Status: Internal Medicine - H&P: Meds Aspirin [Adult Low Dose Aspirin EC] 81 mg PO DAILY 12/11/15 [History] Budesonide/Formoterol 160/4.5 [Symbicort 160/4.5] 2 puff IH BIDR 12/11/15 [ History] Citalopram Hydrobromide [Celexa] 20 mg PO DAILY 12/11/15 [History] Enalapril Maleate [Vasotec] 10 mg PO QPM 12/11/15 [History] Ergocalciferol (VITAMIN D2) [Vitamin D2 (50,000 UNIT)] 50,000 unit PO MÁRQUEZ [History] Gabapentin [Neurontin] 600 mg PO TID 12/11/15 [History] Hydroxyzine HCl 50 mg PO BID 12/11/15 [History] Insulin ASPART [Novolog] 36 - 38 unit SQ TIDWM 12/11/15 [History] Omeprazole [PriLOSEC] 20 mg PO BIDAC 12/11/15 [History] Ropinirole [Requip] 1 mg PO HS 12/11/15 [History] Rosuvastatin [Crestor] 40 mg PO DAILY 12/11/15 [History] SitaGLIPtin [Januvia] 100 mg PO DAILY 12/11/15 [History] Trazodone HCl [TraZODone] 100 mg PO HS 12/11/15 [History] Oxycodone HCl/Acetaminophen [Percocet 10-325 mg Tablet] 1 tab PO Q4H PRN #20 tablet 12/15/15 [Rx] Amlodipine [Norvasc] 5 mg PO DAILY #30 tablet 08/08/16 [Rx] Ampicillin/Sulbactam [Unasyn] 3,000 mg IVPB BID 20 Days 11/28/16 [Rx] Carvedilol [Coreg] 25 mg PO BIDWM #60 tablet 11/28/16 [Rx] Cyanocobalamin (B-12) [Vitamin B12] 1,000 mcg PO DAILY #90 tablet 11/28/16 [Rx] Ferrous Sulfate 325 mg PO BIDWM #180 tablet 11/28/16 [Rx] Insulin DETEMIR [Levemir] 20 unit SQ DAILY #5 vial 11/28/16 [Rx] Lactobacillus [Culturelle] 1 each PO BID #60 cap.sprink 11/28/16 [Rx] LevETIRAcetam [Keppra] 500 mg PO Q12HR #60 tablet 11/28/16 [Rx] Magnesium Oxide [Mag-Ox] 400 mg PO BID #60 tablet 11/28/16 [Rx] Nicotine Patch [Nicoderm] 21 mg TD DAILY #30 patch.td24 11/28/16 [Rx] Polyethylene Glycol 3350 [MiraLAX] 17 gm PO DAILY #30 powd.pack 11/28/16 [Rx] Sennosides [Senna] 8.6 mg PO DAILY #06 tablet 11/28/16 [Rx] Tamsulosin [Flomax] 0.4 mg PO DAILY #30 capsule 11/28/16 [Rx] Thiamine HCl 250 mg PO DAILY #90 tablet 11/28/16 [Rx] Albuterol Neb [Proventil Neb] 2.5 mg IH Q4HR 12/02/16 [History] Furosemide [Lasix] 40 mg PO DAILY 12/02/16 [History] Insulin LISPRO [Humalog] 2 - 12 unit SQ TIDWM 12/02/16 [History] Allergies acetaminophen [From Darvocet-N] Allergy (Verified 12/11/15 11:46) Hives ibuprofen Allergy (Verified 12/11/15 11:46) Hives propoxyphene [From Darvocet-N] Allergy (Verified 12/11/15 11:46) Hives tramadol [From Ultram] Allergy (Verified 12/11/15 11:46) Hives All Systems PM: A 10-system review of systems was performed and is negative for pertinent findings except as documented above in the HPI. - Constitutional Vitals: Temp Pulse Resp BP Pulse Ox 100.6 F H 65 32 109/66 92 L 12/02/16 13:24 12/02/16 16:09 12/02/16 16:09 12/02/16 16:09 12/02/16 16:09 General appearance: Present: A&O X 0, obese Exam: Assessment encephalopathic, tachypneic, abdominal breathing, agitated and, displace jerking movements of both upper and lower extremities every 20-30 seconds. He does not arouse to voice but opens eyes to home painful stimuli. - Head Head exam: Present: atraumatic, normocephalic - Eye Eye exam: Present: PERRL, conjuntiva pink, sclera anicteric Pupils: Present: PERRL - Neck Neck exam general surgery: Present: supple, trachea midline. Absent: lymphadenopathy - Respiratory Respiratory exam: Present: accessory muscle use, decreased breath sounds, wheezes. Absent: rales, rhonchi - Cardiovascular Cardiovascular exam: Present: RRR, +S1, +S2. Absent: diastolic murmur, gallop, rubs, systolic murmur - GI/Abdominal GI/Abdominal exam: Present: normal bowel sounds, soft, no peritoneal signs. Absent: distended, tenderness - Neurological Exam Additional comments: asleep, arousable to painful stimuli. Does not follow commands. Appears agitated. 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 The dressing is covering the area and appears to be dry clean and intact adherent the surgical wound. There is no surrounding erythema and tenderness no discharge. Internal Med - H&P Results - Labs CBC & Chem 7: 12/02/16 12:23 12/02/16 12:23
[2016-12-02 16:38] LABS: ABG HCO3 32.7 mEQ/L (21-27); ABG Oxygen Saturation 90 % (95-98); ABG PCO2 54 mmHg (35-45); ABG PH 7.39 pH Units (7.32-7.45); ABG PO2 60 mmHg (85-104); ABG TCO2 34.4 mEq/L (20-26)
[2016-12-02 16:41] LABS: Blood Gas FiO2 40 %
[2016-12-02] MEDS ORDERED: D5% in Water 1,000 ML IV PRN (17:11)
[2016-12-02] MEDS ORDERED: Dextrose Gel 15 GM PO PRN ×2 (17:11)
[2016-12-02] MEDS ORDERED: *HR* Dextrose 50 % in Water (Syg) 50 ML SYRINGE IVP PRN (17:11)
--- NOTE | 2016-12-02 17:55 | Pulmonology Consult Note ---
Date of Encounter: 12/02/16 Time of Encounter: 17:51 Assessment and Plan (1) Acute respiratory failure with hypoxia Current Visit: Yes Status: Acute Acute respiratory failure with hypoxia in this individual is in part due to aspiration pneumonia seemingly related to altered mental status (metabolic encephalopathy) and underlying COPD. The patient does have chronic kidney disease and concurrent diastolic heart dysfunction and perhaps diastolic heart dysfunction with mild pulmonary edema as another etiology for respiratory failure.. Nonetheless, the patient will be maintained on ventilatory support. Airway specimen will be obtained via direct suctioning through endotracheal tube. Antibiotic therapy empirically pending the results of culture will include Unasyn and vancomycin The POA for this particular individual (edi) was updated about the situation and management issues. Code(s): J96.01 - Acute respiratory failure with hypoxia SNOMED Code(s): 93823134, 549478411 History of Present Illness Consult date: 12/02/16 Chief complaint: Acute respiratory failure with hypoxia History of present illness: This 61-year-old male apparently has a very complex past medical history. Needless to say, per my conversation with the hospital physician who is quite familiar with the patient's situation, this gentleman was recently admitted to the hospital and required intensive care stay for treatment of sepsis and possibly septic shock re-presented to the hospital from an extended care facility with altered mental status and hypoxia. He was evaluated by the hospital physician in the emergency room and was transferred to the intensive care unit. While receiving noninvasive vent support, the patient was notably minimally responsive to noxious stimuli and therefore, he underwent intubation and initiation of ventilatory support (the respiratory therapist attempted intubation but was unsuccessful in the subsequent intubation by myself using a kaleidoscope was preceded by PEA arrest induced by hypoxemia, the patient promptly reverted to spontaneous circulation following securing of airway. Note the patient did receive chest compressions and 1 mg of epinephrine however in total, the resuscitation event lasted perhaps 2 or 3 minutes). Given limited venous access, I also placed a right internal jugular central venous catheter under emergent circumstances. This patient's past medical history is reportedly significant for diabetes mellitus, hypertension, chronic kidney disease, seizure disorder, diastolic heart dysfunction, COPD. While undergoing evaluation in the emergency room, patient was thought to possibly have bilateral lower lobe airspace disease from chest radiographic imaging studies and hence may have aspiration pneumonia or resistant pneumonia due to nosocomial pathogens hence the hospital service ordered antibiotics therapy for treatment of the same. Past Med Surg Social Fam HX - Past Medical History Medical history: arthritis, COPD, diabetes, GERD, hepatitis, hyperlipidemia, hypertension, osteoporosis, renal disease, syncope Psychiatric history: anxiety, depression - Past Surgical History Surgical History: cataract, LE stent(s), orthopedic, other - Social History Smoking Status: Current every day smoker Smokeless Tobacco Status: No Alcohol use: none Drug use: none - Family History Mother Living Status: Hx Family Cardiac Disorders: Yes (htn) Hx Family Respiratory Disorders: No Hx Family Cancer: Yes Hx Family Endocrine Disorder: Yes (dm) Father Living Status: Medications and Allergies Aspirin [Adult Low Dose Aspirin EC] 81 mg PO DAILY 12/11/15 [History] Budesonide/Formoterol 160/4.5 [Symbicort 160/4.5] 2 puff IH BIDR 12/11/15 [ History] Citalopram Hydrobromide [Celexa] 20 mg PO DAILY 12/11/15 [History] Enalapril Maleate [Vasotec] 10 mg PO QPM 12/11/15 [History] Ergocalciferol (VITAMIN D2) [Vitamin D2 (50,000 UNIT)] 50,000 unit PO MÁRQUEZ [History] Gabapentin [Neurontin] 600 mg PO TID 12/11/15 [History] Hydroxyzine HCl 50 mg PO BID 12/11/15 [History] Insulin ASPART [Novolog] 36 - 38 unit SQ TIDWM 12/11/15 [History] Omeprazole [PriLOSEC] 20 mg PO BID 12/11/15 [History] Ropinirole [Requip] 1 mg PO HS 12/11/15 [History] Rosuvastatin [Crestor] 40 mg PO DAILY 12/11/15 [History] SitaGLIPtin [Januvia] 100 mg PO DAILY 12/11/15 [History] Trazodone HCl [TraZODone] 100 mg PO HS 12/11/15 [History] Oxycodone HCl/Acetaminophen [Percocet 10-325 mg Tablet] 1 tab PO Q4H PRN #20 tablet 12/15/15 [Rx] Amlodipine [Norvasc] 5 mg PO DAILY #30 tablet 08/08/16 [Rx] Ampicillin/Sulbactam [Unasyn] 3,000 mg IVPB BID 20 Days 11/28/16 [Rx] Carvedilol [Coreg] 25 mg PO BIDWM #60 tablet 11/28/16 [Rx] Cyanocobalamin (B-12) [Vitamin B12] 1,000 mcg PO DAILY #90 tablet 11/28/16 [Rx] Ferrous Sulfate 325 mg PO BIDWM #180 tablet 11/28/16 [Rx] Insulin DETEMIR [Levemir] 20 unit SQ DAILY #5 vial 11/28/16 [Rx] Lactobacillus [Culturelle] 1 each PO BID #60 cap.sprink 11/28/16 [Rx] LevETIRAcetam [Keppra] 500 mg PO Q12HR #60 tablet 11/28/16 [Rx] Magnesium Oxide [Mag-Ox] 400 mg PO BID #60 tablet 11/28/16 [Rx] Nicotine Patch [Nicoderm] 21 mg TD DAILY #30 patch.td24 11/28/16 [Rx] Polyethylene Glycol 3350 [MiraLAX] 17 gm PO DAILY #30 powd.pack 11/28/16 [Rx] Sennosides [Senna] 8.6 mg PO DAILY #06 tablet 11/28/16 [Rx] Tamsulosin [Flomax] 0.4 mg PO DAILY #30 capsule 11/28/16 [Rx] Thiamine HCl 250 mg PO DAILY #90 tablet 11/28/16 [Rx] Albuterol Neb [Proventil Neb] 2.5 mg IH Q4HR 12/02/16 [History] Furosemide [Lasix] 40 mg PO DAILY 12/02/16 [History] Insulin LISPRO [Humalog] 2 - 12 unit SQ TIDWM 12/02/16 [History] Allergies acetaminophen [From Darvocet-N] Allergy (Verified 12/11/15 11:46) Hives ibuprofen Allergy (Verified 12/11/15 11:46) Hives propoxyphene [From Darvocet-N] Allergy (Verified 12/11/15 11:46) Hives tramadol [From Ultram] Allergy (Verified 12/11/15 11:46) Hives ROS unobtainable: due to endotracheal tube All Systems: A 10-system review of systems was performed and is negative for pertinent findings except as documented above in the HPI. Physical Examination Vital Signs: Vital Signs, Last 4 Hours Temp Pulse Resp BP Pulse Ox 12/02/16 17:20 75 12/02/16 17:19 98.9 F 75 12 137/70 85 L General appearance: other (Obese male who appears his stated age he is unresponsive at the time of initial evaluation) Eyes: nonicteric, other (2 posts were small and minimally reactive) Auscultation: bilateral: diminished breath sounds (Bibasilar crackles) Cardiovascular: regular rate and rhythm (Gallop) Gastrointestinal: normoactive bowel sounds, non-distended Extremities: no cyanosis, cool, other (Patient has evidence of recent right fifth metatarsal amputation in the wound over that region is grossly purulent and draining material.) unable to assess due to mental status Ventilator Settings Ventilator Settings: Ventilator Settings, Last 8 Hours Ventilator Mode A/C Ventilator Tidal Volume 500 Setting Ventilator Respiratory Rate 12 Setting Actual Respiratory Rate 12 Positive End Expiratory 5 Pressure Peak Inspiratory Airway 22 Pressure Results - Laboratory Findings CBC and BMP: 12/02/16 12:23 12/02/16 12:23 ABG ABG pH 7.39 pH Units (7.32-7.45) 12/02/16 16:28 ABG pCO2 54 mmHg (35-45) H 12/02/16 16:28 ABG pO2 60 mmHg (85-104) L 12/02/16 16:28 ABG O2 Saturation 90 % (95-98) L 12/02/16 16:28 Abnormal lab findings: Abnormal lab results RBC 2.87 M/mcL (4.19-5.50) L 12/02/16 12:23 Hgb 8.0 g/dL (12.9-16.9) L 12/02/16 12:23 Hct 25.1 % (37.5-50.1) L 12/02/16 12:23 MCH 27.9 pg (28.0-33.3) L 12/02/16 12:23 RDW 15.8 % (11.5-14.5) H 12/02/16 12:23 MPV 8.9 fL (9.4-12.4) L 12/02/16 12:23 ABG pCO2 54 mmHg (35-45) H 12/02/16 16:28 ABG pO2 60 mmHg (85-104) L 12/02/16 16:28 ABG HCO3 32.7 mEQ/L (21-27) H 12/02/16 16:28 ABG Total CO2 34.4 mEq/L (20-26) H 12/02/16 16:28 ABG O2 Saturation 90 % (95-98) L 12/02/16 16:28 ABG Base Excess 7.0 mEq/L (-2.0 to 3.0) H 12/02/16 16:28 Sodium 147 mEq/L (136-145) H 12/02/16 12:23 BUN 37 mg/dL (8-26) H D 12/02/16 12:23 Creatinine 2.57 mg/dL (0.72-1.25) H 12/02/16 12:23 Est GFR ( Amer) 31 (> 60) L 12/02/16 12:23 Est GFR (Non-Af Amer) 26 (> 60) L 12/02/16 12:23 Glucose 122 mg/dL (70-99) H 12/02/16 12:23 Calculated Osmolality 314 (280-300) H 12/02/16 12:23 Calcium 8.3 mg/dL (8.6-10.8) L 12/02/16 12:23 B-Natriuretic Peptide 365 pg/mL (0-100) H 12/02/16 12:23 Albumin 2.5 g/dL (3.5-5.0) L 12/02/16 12:23 Globulin 4.1 g/dL (2.4-3.5) H 12/02/16 12:23 Albumin/Globulin Ratio 0.6 (1.1-2.2) L 12/02/16 12:23 Urine Clarity Cloudy (Clear) A 12/02/16 12:27 Urine Protein >=300 mg/dL (Neg-Trace) H 12/02/16 12:27 Urine Glucose (UA) 250 mg/dL (Normal) H 12/02/16 12:27 Urine Ketones Trace mg/dL (Negative) H 12/02/16 12:27 Urine Blood Large (Negative) H 12/02/16 12:27 Urine Microscopic RBC 15-30 per hpf (0-3) H 12/02/16 12:27 Urine Microscopic WBC 5-15 per hpf (0-3) H 12/02/16 12:27 Ur Squamous Epith Cells Many per lpf (None-Few) H 12/02/16 12:27 Ur Culture Indicated? YES (NO) A 12/02/16 12:27 Consult Discharge Plan - Plan Referrals: NO,PCP [Primary Care Provider] -
--- NOTE | 2016-12-02 18:03 | Procedure Note ---
Date of procedure: 12/02/16 Pre-op diagnosis: Acute respiratory failure with hypoxia Post-op diagnosis: same Procedure: Intubation. Indication acute respiratory failure with hypoxia. The patient received intravenous sedation with Versed and etomidate. The patient also received neuromuscular blockade rocuronium. The intubation attempts by respiratory therapy were unsuccessful hence I performed intubation using a glides scope. 7-1/2 oral endotracheal tube was placed. End-tidal CO2 monitoring auscultation chest verified placement and a follow-up radiographs pending. During the failed attempt to intubate by RT, the patient did have a short-lived PEA arrest which promptly resolved following successful intubation of airway and provision of ventilation. [place]
--- NOTE | 2016-12-02 18:06 | Procedure Note ---
Date of procedure: 12/02/16 Pre-op diagnosis: Acute respiratory failure with hypoxia Post-op diagnosis: same Procedure: Emergent central venous catheter placement. Indication lack of peripheral venous access for administration medications. Procedure Sterile maximal barrier technique sterile ultrasound guidance utilize for placement of multilumen catheter right IJ approach. The device was secured flushed, no untoward events. Follow-up chest radiograph pending. [place]
[2016-12-02] MEDS: Chlorhexidine Rinse 15 ML MOUTHWASH MM SCH (20:12)
[2016-12-02] MEDS: Insulin LISPRO 300 UNITS/3 ML VIAL SQ SCH (20:12)
[2016-12-02] MEDS ORDERED: Piperacillin/Tazobactam 3.375 GM in D5% in Water (Mini-Bag+) 100 ML IVPB SCH (22:00)
[2016-12-03] MEDS: Insulin LISPRO 300 UNITS/3 ML VIAL SQ SCH ×6 (00:21→20:47)
[2016-12-03] MEDS ORDERED: 0.9 % Sodium Chloride 1,000 ML IVC SCH (00:30)
[2016-12-03 02:58] LABS: Basophils % 0.4 %; Eosinophils # 0.3 K/mcL (0.0-0.6); Eosinophils % 6.3 %; Hematocrit 21.7 % (37.5-50.1); Hemoglobin 6.8 g/dL (12.9-16.9); Immature Granulocytes % 0.6 % (0-4); Lymphocytes # 1.4 K/mcL (0.6-4.6); Lymphocytes % 25.1 %; Mean Corpuscular HGB Conc 31.3 g/dL (31.6-35.5); Mean Corpuscular Hemoglobin 27.6 pg (28.0-33.3); Mean Corpuscular Volume 88.2 fL (83.0-100.0); Mean Platelet Volume 9.2 fL (9.4-12.4); Monocytes # 0.5 K/mcL (0.0-1.3); Monocytes % 8.8 %; Neutrophils # 3.2 K/mcL (1.6-8.9); Platelet Count 163 K/mcL (140-400); Red Blood Count 2.46 M/mcL (4.19-5.50); Red Cell Distribution Width 15.8 % (11.5-14.5); Segmented Neutrophils % 58.8 %
[2016-12-03 03:09] LABS: Calcium 7.6 mg/dL (8.6-10.8); Magnesium 1.6 mg/dL (1.6-2.6); Potassium 3.8 mEq/L (3.5-4.5)
[2016-12-03 04:07] LABS: ABG Base Excess 1.3 mEq/L (-2.0 to 3.0); ABG HCO3 26.6 mEQ/L (21-27); ABG Oxygen Saturation 93 % (95-98); ABG PCO2 45 mmHg (35-45); ABG PH 7.38 pH Units (7.32-7.45); ABG PO2 70 mmHg (85-104)
[2016-12-03 04:09] LABS: Blood Gas FiO2 70 %
[2016-12-03 04:44] LABS: Hematocrit 21.6 % (37.5-50.1); Hemoglobin 6.8 g/dL (12.9-16.9)
[2016-12-03] MEDS ORDERED: *HR* Enoxaparin 40 MG/0.4 ML SYRINGE SQ SCH ×2 (06:00)
[2016-12-03] MEDS ORDERED: Famotidine 20 MG/2 ML VIAL IVP SCH (06:00)
[2016-12-03] MEDS ORDERED: Piperacillin/Tazobactam 3.375 GM in D5% in Water (Mini-Bag+) 100 ML IVPB SCH (08:00)
[2016-12-03] MEDS ORDERED: Furosemide 40 MG/4 ML VIAL IVP ONE (08:17)
[2016-12-03] MEDS: Chlorhexidine Rinse 15 ML MOUTHWASH MM SCH ×2 (08:46→20:47)
--- NOTE | 2016-12-03 11:16 | Pulmonology Progress Note ---
<Frankie Baker - Last Filed: 12/03/16 17:03> Date of Encounter: 12/03/16 Time of Encounter: 08:15 Assessment and Plan (1) Acute respiratory failure with hypoxia Current Visit: Yes Status: Acute Patient was admitted with acute respiratory failure with hypoxia and subsequently intubated 12/02/2016. At that time he was found to have metabolic encephalopathy, known history of CJD, diastolic heart failure and underlying COPD. Recent admission for osteomyelitis, treatment was followed by PEA arrest. With his current admission [facility] discharge. Requiring intubation subsequently sustained PEA arrest and underwent 2-3 minutes of CPR with regain of circulation. There is suspicion for increased volume status was a contributing factor in his last cardiac arrest. Currently intubated and sedated in the ICU. Differential includes COPD exacerbation resulting in hypoxic respiratory failure , pulmonary edema, metabolic encephalopathy with aspiration pneumonia, respiratory suppression secondary to polypharmacy and chronic kidney disease. Plan: - Continue ICU care - Continue mechanical ventilation, with CPAP trial tomorrow. - Hold IV fluids - IV Lasix 40 mg once - Discontinue Zyvox, Zosyn - Continue Unasyn - Strict monitoring of daily weights, I&O, cardiac monitoring (2) DANY (acute kidney injury) Current Visit: Yes Status: Acute Acute kidney injury with a current creatinine of 2.97, creatinine was 1.35 on . Current GFR is 22. Highly suspicious secondary to diastolic heart failure with volume overload. Creatinine elevated after receiving 2 L fluid yesterday. Osmolality is 312. At this time will discontinue IV fluids and give Lasix. Plan: - Discontinue IV fluids - IV Lasix 40 mg once - Strict ins and outs monitoring with patient having Cardoso. - Renally dose antibiotics and avoid nephrotoxic medications including NSAIDs - Monitor renal function daily. - Hold gabapentin and Keppra. (3) Metabolic encephalopathy Current Visit: Yes Status: Acute Patient presented with metabolic encephalopathy suspected due to polypharmacy and acute on chronic renal failure. At this time gabapentin, Keppra, opiates and other sedating or altering medications have been held. Plan: - Monitor mental status when patient's is off sedation. - Consider other causes of altered mental status. - Neurology is following. (4) Myoclonic jerking Current Visit: Yes Status: Acute Patient presented with abnormal limb jerking movements. Patient was seen on the in the emergency department with abnormal extremity movements. Consider side effect of medications, with acute on chronic kidney injury. Patient is currently followed by neurology. Medications held include gabapentin, Keppra, enalapril Plan: -Continue to hold Keppra and gabapentin. - management per neurology. (5) Anemia Current Visit: No Status: Acute Acute on chronic anemia. Patient has known anemia secondary to chronic kidney disease. Hemoglobin dropped to 6.8 today likely secondary to significant fluid rehydration. We will hold off on IV transfusion. We will recheck H&H in a.m. Plan: - Recheck H&H with a.m. labs. - IV diuresis. Qualifiers: Anemia type: other cause Other causes of anemia: chronic disease, kidney Qualified Code(s): N18.9 - Chronic kidney disease, unspecified; D63.1 - Anemia in chronic kidney disease (6) Diastolic CHF Current Visit: No Status: Acute History of diastolic failure, likely fluid overloaded, fluid balance +3 L at this time. May be contributing to patient's recent cardiac arrest. Plan: - 40 mg IV Lasix once - Strict monitoring of I&O - Daily weights Qualifiers: Qualified Code(s): I50.30 - Unspecified diastolic (congestive) heart failure (7) DVT prophylaxis Current Visit: No Status: Acute Subcutaneous heparin. Subjective Principal diagnosis: Acute respiratory failure Interval history: Mr. Regalado has been seen and evaluated patient bedside this morning. He remains intubated and sedated at this time. There were no acute events overnight. Vitals stable, no concerns at this time. No family at bedside. Objective PUL Vital signs: Last Vital Signs Temp 97.3 F L 12/03/16 07:21 Pulse 57 12/03/16 10:00 Resp 16 12/03/16 10:00 BP 129/61 12/03/16 10:00 Pulse Ox 95 12/03/16 10:00 Gen: Well-developed well-nourished, intubated the data. HEENT: Normocephalic atraumatic, endotracheal tube in place. equal reactive to light, Oral mucosa dry. Neck is supple trachea is midline. No crepitus or lymphadenopathy appreciated on palpation. Chest: Symmetric bilateral correlating with mechanical ventilation Cardiac: Regular rate and rhythm with grade 2/6 systolic ejection murmur. Upper extremity capillary refill is 2+ bilateral. Diminished bilateral posterior tibial pulses. Feet are warm to touch. Respiratory: Crackles appreciated bilateral lung bases. Clear to auscultation all lung acharya. Abdomen: Distended, positive bowel sounds. Extremities Right foot is wrapped Fifth right LE digit amputation . Third right LE digit previously amputated. Trace edema to anterior shins bilaterally. skin: Pale and dry. Ventilator Settings Ventilator Settings: Ventilator Settings, Last 8 Hours Ventilator Mode VC+ Ventilator Mode VC+ Ventilator Mode VC+ Ventilator Mode VC+ Ventilator Mode A/C Ventilator Mode A/C Ventilator Mode A/C Ventilator Mode A/C Ventilator Mode A/C Ventilator Mode A/C Ventilator Tidal Volume 500 Setting Ventilator Tidal Volume 500 Setting Ventilator Tidal Volume 500 Setting Ventilator Tidal Volume 500 Setting Ventilator Tidal Volume 500 Setting Ventilator Tidal Volume 500 Setting Ventilator Tidal Volume 500 Setting Ventilator Tidal Volume 500 Setting Ventilator Tidal Volume 500 Setting Ventilator Tidal Volume 500 Setting Ventilator Respiratory Rate 12 Setting Ventilator Respiratory Rate 12 Setting Ventilator Respiratory Rate 12 Setting Ventilator Respiratory Rate 12 Setting Ventilator Respiratory Rate 12 Setting Ventilator Respiratory Rate 12 Setting Ventilator Respiratory Rate 12 Setting Ventilator Respiratory Rate 12 Setting Ventilator Respiratory Rate 12 Setting Ventilator Respiratory Rate 12 Setting Actual Respiratory Rate 16 Actual Respiratory Rate 16 Actual Respiratory Rate 16 Actual Respiratory Rate 16 Actual Respiratory Rate 15 Actual Respiratory Rate 15 Actual Respiratory Rate 16 Actual Respiratory Rate 14 Actual Respiratory Rate 15 Positive End Expiratory 10 Pressure Positive End Expiratory 10 Pressure Positive End Expiratory 10 Pressure Positive End Expiratory 10 Pressure Positive End Expiratory 10 Pressure Positive End Expiratory 10 Pressure Positive End Expiratory 10 Pressure Positive End Expiratory 10 Pressure Positive End Expiratory 10 Pressure Positive End Expiratory 10 Pressure Peak Inspiratory Airway 26 Pressure Peak Inspiratory Airway 26 Pressure Peak Inspiratory Airway 27 Pressure Peak Inspiratory Airway 27 Pressure Peak Inspiratory Airway 26 Pressure Peak Inspiratory Airway 27 Pressure Peak Inspiratory Airway 27 Pressure Peak Inspiratory Airway 26 Pressure Peak Inspiratory Airway 26 Pressure Results - Laboratory Findings CBC and BMP: 12/03/16 04:20 12/03/16 02:40 ABG ABG pH 7.38 pH Units (7.32-7.45) 12/03/16 03:52 ABG pCO2 45 mmHg (35-45) 12/03/16 03:52 ABG pO2 70 mmHg (85-104) L 12/03/16 03:52 ABG O2 Saturation 93 % (95-98) L 12/03/16 03:52 Abnormal lab findings: Abnormal lab results RBC 2.46 M/mcL (4.19-5.50) L 12/03/16 02:40 Hgb 6.8 g/dL (12.9-16.9) L 12/03/16 04:20 Hct 21.6 % (37.5-50.1) L 12/03/16 04:20 MCH 27.6 pg (28.0-33.3) L 12/03/16 02:40 MCHC 31.3 g/dL (31.6-35.5) L 12/03/16 02:40 RDW 15.8 % (11.5-14.5) H 12/03/16 02:40 MPV 9.2 fL (9.4-12.4) L 12/03/16 02:40 ABG pO2 70 mmHg (85-104) L 12/03/16 03:52 ABG Total CO2 28.0 mEq/L (20-26) H 12/03/16 03:52 ABG O2 Saturation 93 % (95-98) L 12/03/16 03:52 Chloride 110 mEq/L (98-109) H 12/03/16 02:40 BUN 42 mg/dL (8-26) H 12/03/16 02:40 Creatinine 2.97 mg/dL (0.72-1.25) H 12/03/16 02:40 Est GFR ( Amer) 26 (> 60) L 12/03/16 02:40 Est GFR (Non-Af Amer) 22 (> 60) L 12/03/16 02:40 Glucose 125 mg/dL (70-99) H 12/03/16 02:40 POC Glucose 223 (58-89) H 12/03/16 11:05 Calculated Osmolality 312 (280-300) H 12/03/16 02:40 Calcium 7.6 mg/dL (8.6-10.8) L 12/03/16 02:40 B-Natriuretic Peptide 365 pg/mL (0-100) H 12/02/16 12:23 Albumin 2.5 g/dL (3.5-5.0) L 12/02/16 12:23 Globulin 4.1 g/dL (2.4-3.5) H 12/02/16 12:23 Albumin/Globulin Ratio 0.6 (1.1-2.2) L 12/02/16 12:23 Urine Clarity Cloudy (Clear) A 12/02/16 12:27 Urine Protein >=300 mg/dL (Neg-Trace) H 12/02/16 12:27 Urine Glucose (UA) 250 mg/dL (Normal) H 12/02/16 12:27 Urine Ketones Trace mg/dL (Negative) H 12/02/16 12:27 Urine Blood Large (Negative) H 12/02/16 12:27 Urine Microscopic RBC 15-30 per hpf (0-3) H 12/02/16 12:27 Urine Microscopic WBC 5-15 per hpf (0-3) H 12/02/16 12:27 Ur Squamous Epith Cells Many per lpf (None-Few) H 12/02/16 12:27 Ur Culture Indicated? YES (NO) A 12/02/16 12:27 - Clinical Findings Intake & Output: Intake & Output 12/02/16 12/03/16 12/03/16 23:59 07:59 15:59 Intake Total 1105 / 1505 1089.4 / 1089.4 95.6 / 95.6 Output Total 225 / 225 285 / 285 Balance 880 / 1280 804.4 / 804.4 95.6 / 95.6 Weight 107.2 kg Consult Discharge Plan - Plan Referrals: NO,PCP [Primary Care Provider] - <Ariana Hawthorne - Last Filed: 12/03/16 20:09> Objective PUL Vital signs: Last Vital Signs Temp 97.9 F 12/03/16 16:03 Pulse 61 12/03/16 18:00 Resp 18 12/03/16 18:00 BP 148/64 12/03/16 18:00 Pulse Ox 95 12/03/16 18:00 Ventilator Settings Ventilator Settings: Ventilator Settings, Last 8 Hours Ventilator Mode VC+ Ventilator Mode VC+ Ventilator Mode VC+ Ventilator Mode VC+ Ventilator Mode VC+ Ventilator Mode VC+ Ventilator Mode VC+ Ventilator Mode VC+ Ventilator Mode VC+ Ventilator Tidal Volume 500 Setting Ventilator Tidal Volume 500 Setting Ventilator Tidal Volume 500 Setting Ventilator Tidal Volume 500 Setting Ventilator Tidal Volume 500 Setting Ventilator Tidal Volume 500 Setting Ventilator Tidal Volume 500 Setting Ventilator Tidal Volume 500 Setting Ventilator Tidal Volume 500 Setting Ventilator Respiratory Rate 12 Setting Ventilator Respiratory Rate 12 Setting Ventilator Respiratory Rate 12 Setting Ventilator Respiratory Rate 12 Setting Ventilator Respiratory Rate 12 Setting Ventilator Respiratory Rate 12 Setting Ventilator Respiratory Rate 12 Setting Ventilator Respiratory Rate 12 Setting Ventilator Respiratory Rate 12 Setting Actual Respiratory Rate 18 Actual Respiratory Rate 17 Actual Respiratory Rate 16 Actual Respiratory Rate 18 Actual Respiratory Rate 16 Actual Respiratory Rate 16 Actual Respiratory Rate 17 Actual Respiratory Rate 17 Actual Respiratory Rate 17 Positive End Expiratory 8 Pressure Positive End Expiratory 8 Pressure Positive End Expiratory 8 Pressure Positive End Expiratory 8 Pressure Positive End Expiratory 8 Pressure Positive End Expiratory 10 Pressure Positive End Expiratory 10 Pressure Positive End Expiratory 10 Pressure Peak Inspiratory Airway 25 Pressure Peak Inspiratory Airway 24 Pressure Peak Inspiratory Airway 25 Pressure Peak Inspiratory Airway 24 Pressure Peak Inspiratory Airway 25 Pressure Peak Inspiratory Airway 26 Pressure Peak Inspiratory Airway 26 Pressure Peak Inspiratory Airway 27 Pressure Peak Inspiratory Airway 27 Pressure Results - Laboratory Findings CBC and BMP: 12/03/16 04:20 12/03/16 02:40 ABG ABG pH 7.38 pH Units (7.32-7.45) 12/03/16 03:52 ABG pCO2 45 mmHg (35-45) 12/03/16 03:52 ABG pO2 70 mmHg (85-104) L 12/03/16 03:52 ABG O2 Saturation 93 % (95-98) L 12/03/16 03:52 Abnormal lab findings: Abnormal lab results RBC 2.46 M/mcL (4.19-5.50) L 12/03/16 02:40 Hgb 6.8 g/dL (12.9-16.9) L 12/03/16 04:20 Hct 21.6 % (37.5-50.1) L 12/03/16 04:20 MCH 27.6 pg (28.0-33.3) L 12/03/16 02:40 MCHC 31.3 g/dL (31.6-35.5) L 12/03/16 02:40 RDW 15.8 % (11.5-14.5) H 12/03/16 02:40 MPV 9.2 fL (9.4-12.4) L 12/03/16 02:40 ABG pO2 70 mmHg (85-104) L 12/03/16 03:52 ABG Total CO2 28.0 mEq/L (20-26) H 12/03/16 03:52 ABG O2 Saturation 93 % (95-98) L 12/03/16 03:52 Chloride 110 mEq/L (98-109) H 12/03/16 02:40 BUN 42 mg/dL (8-26) H 12/03/16 02:40 Creatinine 2.97 mg/dL (0.72-1.25) H 12/03/16 02:40 Est GFR ( Amer) 26 (> 60) L 12/03/16 02:40 Est GFR (Non-Af Amer) 22 (> 60) L 12/03/16 02:40 Glucose 125 mg/dL (70-99) H 12/03/16 02:40 POC Glucose 162 (58-89) H 12/03/16 20:01 Calculated Osmolality 312 (280-300) H 12/03/16 02:40 Calcium 7.6 mg/dL (8.6-10.8) L 12/03/16 02:40 B-Natriuretic Peptide 365 pg/mL (0-100) H 12/02/16 12:23 Albumin 2.5 g/dL (3.5-5.0) L 12/02/16 12:23 Globulin 4.1 g/dL (2.4-3.5) H 12/02/16 12:23 Albumin/Globulin Ratio 0.6 (1.1-2.2) L 12/02/16 12:23 Urine Clarity Cloudy (Clear) A 12/02/16 12:27 Urine Protein >=300 mg/dL (Neg-Trace) H 12/02/16 12:27 Urine Glucose (UA) 250 mg/dL (Normal) H 12/02/16 12:27 Urine Ketones Trace mg/dL (Negative) H 12/02/16 12:27 Urine Blood Large (Negative) H 12/02/16 12:27 Urine Microscopic RBC 15-30 per hpf (0-3) H 12/02/16 12:27 Urine Microscopic WBC 5-15 per hpf (0-3) H 12/02/16 12:27 Ur Squamous Epith Cells Many per lpf (None-Few) H 12/02/16 12:27 Ur Culture Indicated? YES (NO) A 12/02/16 12:27 - Clinical Findings Intake & Output: Intake & Output 12/03/16 12/03/16 12/03/16 07:59 15:59 23:59 Intake Total 1089.4 / 1089.4 295.6 / 295.6 129.3 / 129.3 Output Total 285 / 285 300 / 300 400 / 400 Balance 804.4 / 804.4 -4.4 / -4.4 -270.7 / -270.7 Weight 107.2 kg - Attending Attestation I examined this patient and my medical decision-making was reviewed with the AIR DISPATCHER/PA/Advanced Practice Nurse/Resident Physician. I agree with the documented findings, disposition and treatment plan as described except to the extent set forth below. Patient seen and examined. Labs, radiology, chart personally reviewed. Agree with resident's history and physical, assessment, plan with following comments: [employer] JUMPBASTING: Patient doesn't follows commands, Sedated for vent synchrony. Pulmonary: Patient is requiring mechanical ventilation and still on high PEEP. Lowered FIO2 and changed to VC+ with gradual lowering of PEEP if oxygenation doesn't worsen with lowering FIO2. Discussed with his family at bedside. Cardiovascular: stable at this time, but with his history of cardiac arrest, this is concerning and his condition could worsen. GI: Nutrition per dietary and GI prophylaxis per routine Heme: DVT prophylaxis per routine ID: Continue antibiotics and plan to de-escalation Renal; urine out put and renal funtion reviewed. Diuresis as much as possible Endorcine: blood glucose is monitored Lines: all lines checked and no evidence of infections Skin: skin care to prevent pressure ulcers per nursing routine care I spent 35 min of Critical Care time with this patient. It involved decision making of high complexity to assess, manipulate, and support vital organ system failure and/or to prevent further life threatening deterioration of the patient' s condition. The time involved in the performance of separately reportable procedures was not counted toward critical care time.
[2016-12-03] MEDS: Pantoprazole 40 MG VIAL IVP SCH (12:43)
--- NOTE | 2016-12-03 12:44 | Neurology - Consult Note ---
Date of Encounter: 12/03/16 Time of Encounter: 12:36 Assessment and Plan (1) Altered mental status Current Visit: Yes Status: Acute This likely secondary to worsening encephalopathy notably respiratory and renal failure. There does not appear to be reported focal weakness. Now patient is sedated and although he has episodes of arousals his neurological status can not be fully assessed. Will recommend continuing medical and supportive care. Witnessed an arousal on sedation, appears to be a type of posturing other than jerking. Per history seizure would be less likely but can not be totally excluded, Will do pursue an EEG today. Qualifiers: Altered mental status type: delirium Qualified Code(s): R41.0 - Disorientation, unspecified (2) Myoclonic jerking Current Visit: Yes Status: Acute Patient has history of myoclonic jerking in the near past that is likely related to especially renal encephalopathy but he may have other type of posturing or even movements related to agitation. The movements appear non stereotypical and they are unlikely seizures. Agree to discontinue the keppra and gabapentin due to concerns of toxicity due to these drugs are renally excreted. Please continue medical and supportive care History of Present Illness Chief complaint: tremors HPI: Mr. Regalado is a 61 year old male with PMH significant for chronic renal insufficiency, history of osteomyelitis of the foot, HTN, COPD who presented to ER with chief complaint of having tremors. Neurology was consulted for these tremors, mental status changes as well as possible seizures. Patient recently was admitted here at [facility] due to respiratory failure, renal failure requiring hemodialysis and at the time it was also noticed that he has mixture of asterixis/tremors and some movements that may be related to agitation. He has had EEG on last hospital stay, which showed no seizures but he was sedated. He was started on Keppra on empirical seizure treatment but seizure disorder apparently not established. He also takes 600mg gabapentin tid and due to his renal insufficiency this was concerned for gabapentin toxicity. Gabapentin and keppra were withheld now. The tremors were described as flexing of his arms and hands, that usually occurs during sleep and lesson when waking up. Currently the patient is sedated with propofol and versed. I did witness an episode of arousal, where he opened his eyes and at the same time raised his head a little bit, with left had raised up and squeezed my hand upon request, but not sure this was coincidental or purposeful. Episode lasted 15 seconds and he fall back to sleep. Past Med Surg Social Fam HX - Past Medical History Medical history: arthritis, COPD, diabetes, GERD, hepatitis, hyperlipidemia, hypertension, osteoporosis, renal disease, syncope Psychiatric history: anxiety, depression - Past Surgical History Surgical History: cataract, LE stent(s), orthopedic, other - Social History Smoking Status: Current every day smoker Smokeless Tobacco Status: No Alcohol use: none Drug use: none - Family History Mother Living Status: Hx Family Cardiac Disorders: Yes (htn) Hx Family Respiratory Disorders: No Hx Family Cancer: Yes Hx Family Endocrine Disorder: Yes (dm) Father Living Status: Medications and Allergies Aspirin [Adult Low Dose Aspirin EC] 81 mg PO DAILY 12/11/15 [History] Budesonide/Formoterol 160/4.5 [Symbicort 160/4.5] 2 puff IH BIDR 12/11/15 [ History] Citalopram Hydrobromide [Celexa] 20 mg PO DAILY 12/11/15 [History] Enalapril Maleate [Vasotec] 10 mg PO QPM 12/11/15 [History] Ergocalciferol (VITAMIN D2) [Vitamin D2 (50,000 UNIT)] 50,000 unit PO MÁRQUEZ [History] Gabapentin [Neurontin] 600 mg PO TID 12/11/15 [History] Hydroxyzine HCl 50 mg PO BID 12/11/15 [History] Insulin ASPART [Novolog] 36 - 38 unit SQ TIDWM 12/11/15 [History] Omeprazole [PriLOSEC] 20 mg PO BID 12/11/15 [History] Ropinirole [Requip] 1 mg PO HS 12/11/15 [History] Rosuvastatin [Crestor] 40 mg PO DAILY 12/11/15 [History] SitaGLIPtin [Januvia] 100 mg PO DAILY 12/11/15 [History] Trazodone HCl [TraZODone] 100 mg PO HS 12/11/15 [History] Oxycodone HCl/Acetaminophen [Percocet 10-325 mg Tablet] 1 tab PO Q4H PRN #20 tablet 12/15/15 [Rx] Amlodipine [Norvasc] 5 mg PO DAILY #30 tablet 08/08/16 [Rx] Ampicillin/Sulbactam [Unasyn] 3,000 mg IVPB BID 20 Days 11/28/16 [Rx] Carvedilol [Coreg] 25 mg PO BIDWM #60 tablet 11/28/16 [Rx] Cyanocobalamin (B-12) [Vitamin B12] 1,000 mcg PO DAILY #90 tablet 11/28/16 [Rx] Ferrous Sulfate 325 mg PO BIDWM #180 tablet 11/28/16 [Rx] Insulin DETEMIR [Levemir] 20 unit SQ DAILY #5 vial 11/28/16 [Rx] Lactobacillus [Culturelle] 1 each PO BID #60 cap.sprink 11/28/16 [Rx] LevETIRAcetam [Keppra] 500 mg PO Q12HR #60 tablet 11/28/16 [Rx] Magnesium Oxide [Mag-Ox] 400 mg PO BID #60 tablet 11/28/16 [Rx] Nicotine Patch [Nicoderm] 21 mg TD DAILY #30 patch.td24 11/28/16 [Rx] Polyethylene Glycol 3350 [MiraLAX] 17 gm PO DAILY #30 powd.pack 11/28/16 [Rx] Sennosides [Senna] 8.6 mg PO DAILY #06 tablet 11/28/16 [Rx] Tamsulosin [Flomax] 0.4 mg PO DAILY #30 capsule 11/28/16 [Rx] Thiamine HCl 250 mg PO DAILY #90 tablet 11/28/16 [Rx] Albuterol Neb [Proventil Neb] 2.5 mg IH Q4HR 12/02/16 [History] Furosemide [Lasix] 40 mg PO DAILY 12/02/16 [History] Insulin LISPRO [Humalog] 2 - 12 unit SQ TIDWM 12/02/16 [History] Allergies acetaminophen [From Darvocet-N] Allergy (Verified 12/11/15 11:46) Hives ibuprofen Allergy (Verified 12/11/15 11:46) Hives propoxyphene [From Darvocet-N] Allergy (Verified 12/11/15 11:46) Hives tramadol [From Ultram] Allergy (Verified 12/11/15 11:46) Hives All Systems: A 10-system review of systems was performed and is negative for pertinent findings except as documented above in the HPI. Physical Examination - Vital Signs Vital Signs: Initial Vital Signs Temp Pulse Resp BP Pulse Ox 0 F L 77 30 114/67 97 12/02/16 12:16 12/02/16 12:16 12/02/16 12:16 12/02/16 12:16 12/02/16 12:16 - Constitutional General appearance: other (Sedated. arms are restrained. Occasional arousal noted with left arm raise noted. ) - Neurologic Sensorimotor examination: other (Unable to assess due to sedation) Detailed motor examination: other (Unable to assess due to sedation. Left arm and hand able to move limited by restraint. ) Posture: other (One posturing similar to being aroused, movement limited by restraint. ) Reflexes: Biceps: 0, Triceps: 0, Brachioradialis: 0, Patella: 0, Achilles: 0 Mental Status Examination: stupor (one arousal noted. not following commands, non purposeful eye movement seen. No eye contact duing arousal) Cranial nerve examination: PERRL (3mm bilaterally, glassy but reactive to light stimulation. No deviation noted. ), EOMI (Positive oculocephalic reflex noted. fine nystagmus seen upon passive movements of head), no facial asymmetry is present, gag reflex intact Results - Laboratory Findings CBC and BMP: 12/03/16 04:20 12/03/16 02:40 Abnormal lab findings: Abnormal lab results RBC 2.46 M/mcL (4.19-5.50) L 12/03/16 02:40 Hgb 6.8 g/dL (12.9-16.9) L 12/03/16 04:20 Hct 21.6 % (37.5-50.1) L 12/03/16 04:20 MCH 27.6 pg (28.0-33.3) L 12/03/16 02:40 MCHC 31.3 g/dL (31.6-35.5) L 12/03/16 02:40 RDW 15.8 % (11.5-14.5) H 12/03/16 02:40 MPV 9.2 fL (9.4-12.4) L 12/03/16 02:40 ABG pO2 70 mmHg (85-104) L 12/03/16 03:52 ABG Total CO2 28.0 mEq/L (20-26) H 12/03/16 03:52 ABG O2 Saturation 93 % (95-98) L 12/03/16 03:52 Chloride 110 mEq/L (98-109) H 12/03/16 02:40 BUN 42 mg/dL (8-26) H 12/03/16 02:40 Creatinine 2.97 mg/dL (0.72-1.25) H 12/03/16 02:40 Est GFR ( Amer) 26 (> 60) L 12/03/16 02:40 Est GFR (Non-Af Amer) 22 (> 60) L 12/03/16 02:40 Glucose 125 mg/dL (70-99) H 12/03/16 02:40 POC Glucose 223 (58-89) H 12/03/16 11:05 Calculated Osmolality 312 (280-300) H 12/03/16 02:40 Calcium 7.6 mg/dL (8.6-10.8) L 12/03/16 02:40 B-Natriuretic Peptide 365 pg/mL (0-100) H 12/02/16 12:23 Albumin 2.5 g/dL (3.5-5.0) L 12/02/16 12:23 Globulin 4.1 g/dL (2.4-3.5) H 12/02/16 12:23 Albumin/Globulin Ratio 0.6 (1.1-2.2) L 12/02/16 12:23 Urine Clarity Cloudy (Clear) A 12/02/16 12:27 Urine Protein >=300 mg/dL (Neg-Trace) H 12/02/16 12:27 Urine Glucose (UA) 250 mg/dL (Normal) H 12/02/16 12:27 Urine Ketones Trace mg/dL (Negative) H 12/02/16 12:27 Urine Blood Large (Negative) H 12/02/16 12:27 Urine Microscopic RBC 15-30 per hpf (0-3) H 12/02/16 12:27 Urine Microscopic WBC 5-15 per hpf (0-3) H 12/02/16 12:27 Ur Squamous Epith Cells Many per lpf (None-Few) H 12/02/16 12:27 Ur Culture Indicated? YES (NO) A 12/02/16 12:27 Consult Discharge Plan - Plan Referrals: NO,PCP [Primary Care Provider] -
--- NOTE | 2016-12-03 15:00 | Electrocardiograph Report ---
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
[2016-12-03] MEDS: Ampicillin/Sulbactam 3,000 MG in 0.9 % Sodium Chloride Mini Bag 100 ML IVPB SCH (17:50)
[2016-12-03] MEDS: *HR* Heparin 5,000 UNIT/ML VIAL SQ SCH (18:32)
--- NOTE | 2016-12-03 19:59 | EEG/EMG/Oth Biometrics Report ---
EEG Procedure Report Date of procedure: 12/03/16 EEG Procedure: Routine EEG Procedure Note: Report: This EEG was acquired with standard international 10-20 electrode placement system with EKG recording. The background activity during this EEG was replaced by a mixture of theta and alpha activity with best frequency up to 8.5Hz. The background activity was reactive to eye openings. Sleep stages were not identified. There are no electricographic seizures identified during this tracing. There are no epileptiform discharges and focal slowing noted during this recording. Photic stimulation produced no abnormalities. HV not performed during this study. EKG tracing showed no significant cardiac dysarrhythmia. Impression: This is an abnormal EEG due to presence of mild diffuse background slowing. Clinical Correlation: This EEG is consistent with mild diffuse cerebral dysfunction that can be seen in patients with encephalopathy, metabolic/toxic, electrolyte derangement, or other causes. Clinical correlation suggested.
[2016-12-04] MEDS: Insulin LISPRO 300 UNITS/3 ML VIAL SQ SCH ×6 (01:20→20:19)
[2016-12-04 04:43] LABS: Basophils % 0.6 %; Eosinophils # 0.3 K/mcL (0.0-0.6); Eosinophils % 6.1 %; Hematocrit 23.4 % (37.5-50.1); Hemoglobin 7.5 g/dL (12.9-16.9); Immature Granulocytes % 0.2 % (0-4); Lymphocytes # 1.1 K/mcL (0.6-4.6); Mean Corpuscular HGB Conc 32.1 g/dL (31.6-35.5); Mean Corpuscular Volume 87.3 fL (83.0-100.0); Mean Platelet Volume 9.6 fL (9.4-12.4); Monocytes # 0.5 K/mcL (0.0-1.3); Monocytes % 8.4 %; Neutrophils # 3.4 K/mcL (1.6-8.9); Platelet Count 250 K/mcL (140-400); Red Blood Count 2.68 M/mcL (4.19-5.50); Red Cell Distribution Width 15.9 % (11.5-14.5); Segmented Neutrophils % 63.7 %
[2016-12-04 04:57] LABS: Potassium 3.7 mEq/L (3.5-4.5)
[2016-12-04 04:58] LABS: Albumin/Globulin Ratio 0.5 (1.1-2.2); Bilirubin,Total 0.3 mg/dL (0.2-1.2); Calcium 7.9 mg/dL (8.6-10.8); Globulin 3.8 g/dL (2.4-3.5); Total Protein 5.8 g/dL (6.0-8.3)
[2016-12-04 05:23] LABS: ABG Base Excess 3.1 mEq/L (-2.0 to 3.0); ABG HCO3 26.8 mEQ/L (21-27); ABG Oxygen Saturation 94 % (95-98); ABG PCO2 36 mmHg (35-45); ABG PH 7.48 pH Units (7.32-7.45); ABG PO2 64 mmHg (85-104); ABG TCO2 27.9 mEq/L (20-26)
[2016-12-04 05:25] LABS: Blood Gas FiO2 50 %
[2016-12-04] MEDS: *HR* Heparin 5,000 UNIT/ML VIAL SQ SCH ×2 (08:33→19:34)
[2016-12-04] MEDS: Pantoprazole 40 MG VIAL IVP SCH (08:33)
[2016-12-04] MEDS: Ampicillin/Sulbactam 3,000 MG in 0.9 % Sodium Chloride Mini Bag 100 ML IVPB SCH ×2 (08:33→17:32)
[2016-12-04] MEDS: Chlorhexidine Rinse 15 ML MOUTHWASH MM SCH ×2 (08:34→19:34)
[2016-12-04] MEDS: FentaNYL (PF) 1,000 MCG in 0.9 % Sodium Chloride 80 ML IVC SCH ×2 (09:45→18:27)
--- NOTE | 2016-12-04 11:39 | Pulmonology Progress Note ---
<Frankie Baker - Last Filed: 12/04/16 17:08> Date of Encounter: 12/04/16 Time of Encounter: 08:30 Assessment and Plan (1) Acute respiratory failure with hypoxia Current Visit: Yes Status: Acute Patient was admitted with acute respiratory failure with hypoxia and subsequently intubated 12/02/2016. At that time he was found to have metabolic encephalopathy, known history of CJD, diastolic heart failure and underlying COPD. Recent admission for osteomyelitis, treatment was followed by PEA arrest. With his current admission he was [facility] his last discharge. Requiring intubation subsequently sustained PEA arrest and underwent 2-3 minutes of CPR with regain of circulation. There is suspicion for increased volume status was a contributing factor in his last cardiac arrest. Currently intubated and sedated in the ICU. Differential includes COPD exacerbation resulting in hypoxic respiratory failure , pulmonary edema, metabolic encephalopathy with aspiration pneumonia, respiratory suppression secondary to polypharmacy and chronic kidney disease. 12/04/2016 patient continues to require mechanical ventilation, chest x-ray demonstrated diffuse atelectasis of the left long and he required bronchoscopy with large mucous plug suctioned out of the left main bronchial tube. Consent was obtained by Kell adame. Patient failed CPAP trial this morning. Repeat CPAP trial this afternoon. Plan: - Continue ICU care - Continue mechanical ventilation, with CPAP trial today. - Continue to Hold IV fluids - IV Lasix 40 mg once - Continue Unasyn - Strict monitoring of daily weights, I&O, cardiac monitoring (2) DANY (acute kidney injury) Current Visit: Yes Status: Acute Acute kidney injury with a current creatinine of 2.97, creatinine was 1.35 on . Current GFR is 22. Highly suspicious secondary to diastolic heart failure with volume overload. Creatinine elevated after receiving 2 L fluid yesterday. Osmolality is 312. At this time will discontinue IV fluids and give Lasix. IV fluids were held at this time, Lasix 40 mg IV were given once yesterday. Plan to provide another dose of Lasix today. Creatinine is slightly diminished compared to yesterday we will continue to monitor. Plan: - Discontinue IV fluids - IV Lasix 40 mg once - Strict ins and outs monitoring with patient having Cardoso. - Renally dose antibiotics and avoid nephrotoxic medications including NSAIDs - Monitor renal function daily. - Continue to Hold gabapentin and Keppra. (3) Metabolic encephalopathy Current Visit: Yes Status: Acute Patient presented with metabolic encephalopathy suspected due to polypharmacy and acute on chronic renal failure. At this time gabapentin, Keppra, opiates and other sedating or altering medications have been held. Plan: - Monitor mental status when patient's is off sedation. - Consider other causes of altered mental status. - Neurology is following. (4) Myoclonic jerking Current Visit: Yes Status: Acute Patient presented with abnormal limb jerking movements. Patient was seen on the in the emergency department with abnormal extremity movements. Consider side effect of medications, with acute on chronic kidney injury. Patient is currently followed by neurology. Medications held include gabapentin, Keppra, enalapril Plan: -Continue to hold Keppra and gabapentin. - management per neurology. (5) Anemia Current Visit: No Status: Acute Acute on chronic anemia. Patient has known anemia secondary to chronic kidney disease. Hemoglobin 7.5 today up from 6.8 likely secondary to excess volume diuresis. Plan: - Recheck H&H with a.m. labs. - IV diuresis. Qualifiers: Anemia type: other cause Other causes of anemia: chronic disease, kidney Qualified Code(s): N18.9 - Chronic kidney disease, unspecified; D63.1 - Anemia in chronic kidney disease (6) Diastolic CHF Current Visit: No Status: Acute History of diastolic failure, likely fluid overloaded, fluid balance +3 L at this time. May be contributing to patient's recent cardiac arrest. 12/04/2016 patient was diuresed yesterday, cumulative fluid balance is +2 L. Plan for gentle diuresis. Plan: - 40 mg IV Lasix once - Strict monitoring of I&O - Daily weights Qualifiers: Qualified Code(s): I50.30 - Unspecified diastolic (congestive) heart failure (7) DVT prophylaxis Current Visit: No Status: Acute Subcutaneous heparin. Subjective Principal diagnosis: Acute respiratory failure Interval history: Mr. Regalado has been seen and evaluated patient bedside this morning. He remains intubated and sedated at this time. There were no acute events overnight. Vitals stable, diminished breath sounds on the left side. Consent obtained for bronchoscopy. No family at bedside. Objective PUL Vital signs: Last Vital Signs Temp 99.7 F H 12/04/16 07:44 Pulse 60 12/04/16 11:00 Resp 19 12/04/16 11:07 BP 132/59 12/04/16 11:07 Pulse Ox 93 L 12/04/16 11:07 Gen: Well-developed well-nourished, intubated the data. HEENT: Normocephalic atraumatic, endotracheal tube in place. equal reactive to light, Oral mucosa dry. Neck is supple trachea is midline. No crepitus or lymphadenopathy appreciated on palpation. Chest: Symmetric bilateral correlating with mechanical ventilation Cardiac: Regular rate and rhythm with grade 2/6 systolic ejection murmur. Upper extremity capillary refill is 2+ bilateral. Diminished bilateral posterior tibial pulses. Feet are warm to touch. Respiratory: Diminished breath sounds in the left lung acharya. Clear to auscultation the right. Abdomen: Distended, positive bowel sounds. Extremities Right foot is wrapped Fifth right LE digit amputation . Third right LE digit previously amputated. Trace edema to anterior shins bilaterally. skin: Pale and dry. Ventilator Settings Ventilator Settings: Ventilator Settings, Last 8 Hours Ventilator Mode VC+ Ventilator Mode VC+ Ventilator Mode VC+ Ventilator Mode VC+ Ventilator Mode VC+ Ventilator Mode VC+ Ventilator Mode VC+ Ventilator Mode VC+ Ventilator Mode VC+ Ventilator Mode VC+ Ventilator Mode VC+ Ventilator Tidal Volume 450 Setting Ventilator Tidal Volume 450 Setting Ventilator Tidal Volume 450 Setting Ventilator Tidal Volume 450 Setting Ventilator Tidal Volume 450 Setting Ventilator Tidal Volume 450 Setting Ventilator Tidal Volume 500 Setting Ventilator Tidal Volume 500 Setting Ventilator Tidal Volume 500 Setting Ventilator Tidal Volume 500 Setting Ventilator Tidal Volume 500 Setting Ventilator Respiratory Rate 12 Setting Ventilator Respiratory Rate 12 Setting Ventilator Respiratory Rate 12 Setting Ventilator Respiratory Rate 12 Setting Ventilator Respiratory Rate 12 Setting Ventilator Respiratory Rate 12 Setting Ventilator Respiratory Rate 12 Setting Ventilator Respiratory Rate 12 Setting Ventilator Respiratory Rate 12 Setting Ventilator Respiratory Rate 12 Setting Ventilator Respiratory Rate 12 Setting Actual Respiratory Rate 19 Actual Respiratory Rate 20 Actual Respiratory Rate 22 Actual Respiratory Rate 23 Actual Respiratory Rate 23 Actual Respiratory Rate 21 Actual Respiratory Rate 25 Actual Respiratory Rate 18 Actual Respiratory Rate 21 Actual Respiratory Rate 19 Positive End Expiratory 5 Pressure Positive End Expiratory 5 Pressure Positive End Expiratory 5 Pressure Positive End Expiratory 8.0 Pressure Positive End Expiratory 8.0 Pressure Positive End Expiratory 8.0 Pressure Positive End Expiratory 8.0 Pressure Positive End Expiratory 8 Pressure Positive End Expiratory 8 Pressure Positive End Expiratory 8 Pressure Positive End Expiratory 8 Pressure Peak Inspiratory Airway 19 Pressure Peak Inspiratory Airway 19 Pressure Peak Inspiratory Airway 19 Pressure Peak Inspiratory Airway 23 Pressure Peak Inspiratory Airway 23 Pressure Peak Inspiratory Airway 22 Pressure Peak Inspiratory Airway 24 Pressure Peak Inspiratory Airway 28 Pressure Peak Inspiratory Airway 18 Pressure Peak Inspiratory Airway 26 Pressure Results - Laboratory Findings CBC and BMP: 12/04/16 04:11 12/04/16 04:11 ABG ABG pH 7.48 pH Units (7.32-7.45) H 12/04/16 05:02 ABG pCO2 36 mmHg (35-45) 12/04/16 05:02 ABG pO2 64 mmHg (85-104) L 12/04/16 05:02 ABG O2 Saturation 94 % (95-98) L 12/04/16 05:02 Abnormal lab findings: Abnormal lab results RBC 2.68 M/mcL (4.19-5.50) L 12/04/16 04:11 Hgb 7.5 g/dL (12.9-16.9) L 12/04/16 04:11 Hct 23.4 % (37.5-50.1) L 12/04/16 04:11 RDW 15.9 % (11.5-14.5) H 12/04/16 04:11 ABG pH 7.48 pH Units (7.32-7.45) H 12/04/16 05:02 ABG pO2 64 mmHg (85-104) L 12/04/16 05:02 ABG Total CO2 27.9 mEq/L (20-26) H 12/04/16 05:02 ABG O2 Saturation 94 % (95-98) L 12/04/16 05:02 ABG Base Excess 3.1 mEq/L (-2.0 to 3.0) H 12/04/16 05:02 Sodium 146 mEq/L (136-145) H 12/04/16 04:11 Chloride 111 mEq/L (98-109) H 12/04/16 04:11 BUN 42 mg/dL (8-26) H 12/04/16 04:11 Creatinine 3.01 mg/dL (0.72-1.25) H 12/04/16 04:11 Est GFR ( Amer) 26 (> 60) L 12/04/16 04:11 Est GFR (Non-Af Amer) 21 (> 60) L 12/04/16 04:11 Glucose 170 mg/dL (70-99) H 12/04/16 04:11 POC Glucose 202 (58-89) H 12/04/16 11:09 Calculated Osmolality 316 (280-300) H 12/04/16 04:11 Calcium 7.9 mg/dL (8.6-10.8) L 12/04/16 04:11 B-Natriuretic Peptide 365 pg/mL (0-100) H 12/02/16 12:23 Serum Total Protein 5.8 g/dL (6.0-8.3) L 12/04/16 04:11 Albumin 2.0 g/dL (3.5-5.0) L 12/04/16 04:11 Globulin 3.8 g/dL (2.4-3.5) H 12/04/16 04:11 Albumin/Globulin Ratio 0.5 (1.1-2.2) L 12/04/16 04:11 Urine Clarity Cloudy (Clear) A 12/02/16 12:27 Urine Protein >=300 mg/dL (Neg-Trace) H 12/02/16 12:27 Urine Glucose (UA) 250 mg/dL (Normal) H 12/02/16 12:27 Urine Ketones Trace mg/dL (Negative) H 12/02/16 12:27 Urine Blood Large (Negative) H 12/02/16 12:27 Urine Microscopic RBC 15-30 per hpf (0-3) H 12/02/16 12:27 Urine Microscopic WBC 5-15 per hpf (0-3) H 12/02/16 12:27 Ur Squamous Epith Cells Many per lpf (None-Few) H 12/02/16 12:27 Ur Culture Indicated? YES (NO) A 12/02/16 12:27 - Microbiology Findings Microbiology Findings: Microbiology, Last 48 Hours 12/03/16 18:35 Sputum Culture - Final Sputum - Clinical Findings Intake & Output: Intake & Output 12/03/16 12/04/16 12/04/16 23:59 07:59 15:59 Intake Total 266.0 / 266.0 169 / 169 300 / 300 Output Total 800 / 800 700 / 700 Balance -534.0 / -534.0 -531 / -531 300 / 300 Weight 109.044 kg Consult Discharge Plan - Plan Referrals: NO,PCP [Non-Partnered Physician] - <Ariana Hawthorne - Last Filed: 12/04/16 20:46> Objective PUL Vital signs: Last Vital Signs Temp 98.2 F 12/04/16 20:00 Pulse 56 12/04/16 20:00 Resp 20 12/04/16 20:00 BP 132/63 12/04/16 20:00 Pulse Ox 98 12/04/16 20:00 Ventilator Settings Ventilator Settings: Ventilator Settings, Last 8 Hours Ventilator Mode VC+ Ventilator Mode VC+ Ventilator Mode VC+ Ventilator Mode VC+ Ventilator Mode VC+ Ventilator Mode VC+ Ventilator Mode VC+ Ventilator Mode VC+ Ventilator Mode VC+ Ventilator Mode VC+ Ventilator Mode VC+ Ventilator Tidal Volume 450 Setting Ventilator Tidal Volume 450 Setting Ventilator Tidal Volume 450 Setting Ventilator Tidal Volume 450 Setting Ventilator Tidal Volume 450 Setting Ventilator Tidal Volume 450 Setting Ventilator Tidal Volume 450 Setting Ventilator Tidal Volume 450 Setting Ventilator Tidal Volume 450 Setting Ventilator Tidal Volume 450 Setting Ventilator Tidal Volume 450 Setting Ventilator Respiratory Rate 12 Setting Ventilator Respiratory Rate 12 Setting Ventilator Respiratory Rate 12 Setting Ventilator Respiratory Rate 12 Setting Ventilator Respiratory Rate 12 Setting Ventilator Respiratory Rate 12 Setting Ventilator Respiratory Rate 12 Setting Ventilator Respiratory Rate 12 Setting Ventilator Respiratory Rate 12 Setting Ventilator Respiratory Rate 12 Setting Ventilator Respiratory Rate 12 Setting Actual Respiratory Rate 17 Actual Respiratory Rate 19 Actual Respiratory Rate 18 Actual Respiratory Rate 19 Actual Respiratory Rate 20 Actual Respiratory Rate 19 Actual Respiratory Rate 20 Actual Respiratory Rate 21 Actual Respiratory Rate 21 Positive End Expiratory 5 Pressure Positive End Expiratory 5 Pressure Positive End Expiratory 5 Pressure Positive End Expiratory 5 Pressure Positive End Expiratory 5 Pressure Positive End Expiratory 5 Pressure Positive End Expiratory 5 Pressure Positive End Expiratory 5 Pressure Positive End Expiratory 5 Pressure Positive End Expiratory 5 Pressure Positive End Expiratory 5 Pressure Peak Inspiratory Airway 16 Pressure Peak Inspiratory Airway 16 Pressure Peak Inspiratory Airway 16 Pressure Peak Inspiratory Airway 18 Pressure Peak Inspiratory Airway 16 Pressure Peak Inspiratory Airway 16 Pressure Peak Inspiratory Airway 17 Pressure Peak Inspiratory Airway 19 Pressure Peak Inspiratory Airway 19 Pressure Results - Laboratory Findings CBC and BMP: 12/04/16 04:11 12/04/16 04:11 ABG ABG pH 7.48 pH Units (7.32-7.45) H 12/04/16 05:02 ABG pCO2 36 mmHg (35-45) 12/04/16 05:02 ABG pO2 64 mmHg (85-104) L 12/04/16 05:02 ABG O2 Saturation 94 % (95-98) L 12/04/16 05:02 Abnormal lab findings: Abnormal lab results RBC 2.68 M/mcL (4.19-5.50) L 12/04/16 04:11 Hgb 7.5 g/dL (12.9-16.9) L 12/04/16 04:11 Hct 23.4 % (37.5-50.1) L 12/04/16 04:11 RDW 15.9 % (11.5-14.5) H 12/04/16 04:11 ABG pH 7.48 pH Units (7.32-7.45) H 12/04/16 05:02 ABG pO2 64 mmHg (85-104) L 12/04/16 05:02 ABG Total CO2 27.9 mEq/L (20-26) H 12/04/16 05:02 ABG O2 Saturation 94 % (95-98) L 12/04/16 05:02 ABG Base Excess 3.1 mEq/L (-2.0 to 3.0) H 12/04/16 05:02 Sodium 146 mEq/L (136-145) H 12/04/16 04:11 Chloride 111 mEq/L (98-109) H 12/04/16 04:11 BUN 42 mg/dL (8-26) H 12/04/16 04:11 Creatinine 3.01 mg/dL (0.72-1.25) H 12/04/16 04:11 Est GFR ( Amer) 26 (> 60) L 12/04/16 04:11 Est GFR (Non-Af Amer) 21 (> 60) L 12/04/16 04:11 Glucose 170 mg/dL (70-99) H 12/04/16 04:11 POC Glucose 171 (58-89) H 12/04/16 20:04 Calculated Osmolality 316 (280-300) H 12/04/16 04:11 Calcium 7.9 mg/dL (8.6-10.8) L 12/04/16 04:11 B-Natriuretic Peptide 365 pg/mL (0-100) H 12/02/16 12:23 Serum Total Protein 5.8 g/dL (6.0-8.3) L 12/04/16 04:11 Albumin 2.0 g/dL (3.5-5.0) L 12/04/16 04:11 Globulin 3.8 g/dL (2.4-3.5) H 12/04/16 04:11 Albumin/Globulin Ratio 0.5 (1.1-2.2) L 12/04/16 04:11 Urine Clarity Cloudy (Clear) A 12/02/16 12:27 Urine Protein >=300 mg/dL (Neg-Trace) H 12/02/16 12:27 Urine Glucose (UA) 250 mg/dL (Normal) H 12/02/16 12:27 Urine Ketones Trace mg/dL (Negative) H 12/02/16 12:27 Urine Blood Large (Negative) H 12/02/16 12:27 Urine Microscopic RBC 15-30 per hpf (0-3) H 12/02/16 12:27 Urine Microscopic WBC 5-15 per hpf (0-3) H 12/02/16 12:27 Ur Squamous Epith Cells Many per lpf (None-Few) H 12/02/16 12:27 Ur Culture Indicated? YES (NO) A 12/02/16 12:27 Stool Occult Blood Positive (Negative) A 12/03/16 14:06 - Microbiology Findings Microbiology Findings: Microbiology, Last 48 Hours 12/04/16 09:51 Gram Stain - Final Left Upper Lobe Lung 12/03/16 18:35 Sputum Culture - Final Sputum - Clinical Findings Intake & Output: Intake & Output 12/04/16 12/04/16 12/04/16 07:59 15:59 23:59 Intake Total 169 / 169 823 / 823 615 / 615 Output Total 700 / 700 275 / 275 900 / 900 Balance -531 / -531 548 / 548 -285 / -285 Weight 109.044 kg - Attending Attestation I examined this patient and my medical decision-making was reviewed with the [employer] OPER[employer] ENGINEER/PA/Advanced Practice Nurse/Resident Physician. I agree with the documented findings, disposition and treatment plan as described except to the extent set forth below. Patient seen and examined. Labs, radiology, chart personally reviewed. 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 Patient remain on vent and was able to lower his FIO2 and PEEP successfully and hopefully in next 1-2 days will be able to do CPAP trial and liberate him from vent Cardiovascular: stable GI: Nutrition per dietary and GI prophylaxis per routine Heme: DVT prophylaxis per routine ID: Continue antibiotics and plan to de-escalation Renal; urine out put and renal funtion reviewed Endorcine: blood glucose is monitored Lines: all lines checked and no evidence of infections Skin: skin care to prevent pressure ulcers per nursing routine care I spent 35 min of Critical Care time with this patient. It involved decision making of high complexity to assess, manipulate, and support vital organ system failure and/or to prevent further life threatening deterioration of the patient' s condition. The time involved in the performance of separately reportable procedures was not counted toward critical care time.
[2016-12-04] MEDS ORDERED: Levofloxacin 750 MG/150 ML 750 MG/150 ML BAG IVPB SCH (14:00)
[2016-12-04] MEDS ORDERED: Furosemide 40 MG/4 ML VIAL IVP ONE (17:13)
[2016-12-04] MEDS: Sennosides/Docusate Sodium TABLET PO SCH (19:35)
[2016-12-04] MEDS ORDERED: Insulin DETEMIR 100 UNIT/ML X5UNITS SQ SCH (21:00)
[2016-12-05] MEDS: Insulin LISPRO 300 UNITS/3 ML VIAL SQ SCH ×5 (00:29→20:52)
[2016-12-05 04:16] LABS: Basophils % 0.5 %; Eosinophils # 0.4 K/mcL (0.0-0.6); Hematocrit 22.9 % (37.5-50.1); Hemoglobin 7.4 g/dL (12.9-16.9); Immature Granulocytes % 0.5 % (0-4); Lymphocytes # 1.3 K/mcL (0.6-4.6); Lymphocytes % 29.1 %; Mean Corpuscular HGB Conc 32.3 g/dL (31.6-35.5); Mean Corpuscular Hemoglobin 28.5 pg (28.0-33.3); Mean Corpuscular Volume 88.1 fL (83.0-100.0); Mean Platelet Volume 9.6 fL (9.4-12.4); Monocytes # 0.4 K/mcL (0.0-1.3); Monocytes % 8.6 %; Neutrophils # 2.3 K/mcL (1.6-8.9); Platelet Count 294 K/mcL (140-400); Red Cell Distribution Width 16.1 % (11.5-14.5); Segmented Neutrophils % 52.3 %
[2016-12-05 04:25] LABS: Calcium 7.8 mg/dL (8.6-10.8); Potassium 3.6 mEq/L (3.5-4.5)
[2016-12-05 05:23] LABS: ABG Base Excess 3.5 mEq/L (-2.0 to 3.0); ABG HCO3 28.5 mEQ/L (21-27); ABG Oxygen Saturation 96 % (95-98); ABG PCO2 45 mmHg (35-45); ABG PH 7.41 pH Units (7.32-7.45); ABG PO2 80 mmHg (85-104); ABG TCO2 29.9 mEq/L (20-26); Blood Gas FiO2 40 %
[2016-12-05] MEDS: *HR* Heparin 5,000 UNIT/ML VIAL SQ SCH ×2 (06:13→18:40)
[2016-12-05] MEDS: Ampicillin/Sulbactam 3,000 MG in 0.9 % Sodium Chloride Mini Bag 100 ML IVPB SCH ×2 (06:13→18:41)
[2016-12-05] MEDS ORDERED: Pantoprazole 40 MG VIAL IVP SCH (07:00)
[2016-12-05] MEDS: Sennosides/Docusate Sodium TABLET PO SCH ×2 (08:13→19:55)
[2016-12-05] MEDS: Chlorhexidine Rinse 15 ML MOUTHWASH MM SCH ×2 (08:13→20:52)
[2016-12-05] MEDS: Ipratropium/Albuterol Neb 3 ML IH SCH ×5 (09:09→23:57)
--- NOTE | 2016-12-05 09:17 | Pulmonology Progress Note ---
<Frankie Baker - Last Filed: 12/05/16 11:36> Date of Encounter: 12/05/16 Time of Encounter: 07:00 Assessment and Plan (1) Acute respiratory failure with hypoxia Current Visit: Yes Status: Acute Patient was admitted with acute respiratory failure with hypoxia and subsequently intubated 12/02/2016. At that time he was found to have metabolic encephalopathy, known history of CJD, diastolic heart failure and underlying COPD. Recent admission for osteomyelitis, treatment was followed by PEA arrest. With his current admission he was admitted from a intermediate after his last discharge. Requiring intubation subsequently sustained PEA arrest and underwent 2-3 minutes of CPR with regain of circulation. There is suspicion for increased volume status was a contributing factor in his last cardiac arrest. Currently intubated and sedated in the ICU. Differential includes COPD exacerbation resulting in hypoxic respiratory failure , pulmonary edema, metabolic encephalopathy with aspiration pneumonia, respiratory suppression secondary to polypharmacy and chronic kidney disease. 12/04/2016 patient continues to require mechanical ventilation, chest x-ray demonstrated diffuse atelectasis of the left long and he required bronchoscopy with large mucous plug suctioned out of the left main bronchial tube. Consent was obtained by Kell adame. Patient failed CPAP trial this morning. Repeat CPAP trial this afternoon. 12/05/2016 patient successfully tolerate his CPAP and was successfully extubated. Chest x-ray this morning demonstrated significant improvement after bronchoscopy yesterday significant plug removal of the left main. He is awake alert and oriented on nasal cannula. No acute respiratory distress. Plan: - Plan to transfer to general medical floor when patient stable - Restarted DuoNeb's and Proventil nebulizations. - Provide by mouth water - Continue Unasyn for treatment of osteoarthritis - Strict monitoring of daily weights, I&O, cardiac monitoring (2) DANY (acute kidney injury) Current Visit: Yes Status: Acute Acute kidney injury with a current creatinine of 2.5 which demonstrates improved from yesterday. Continue fluid restrictions. Patient tolerating free water by mouth. Continue to hold nephrotoxic medications. Plan: - Patient tolerating free water. - Strict ins and outs monitoring - Discontinue Cardoso catheter - Renally dose antibiotics and avoid nephrotoxic medications including NSAIDs - Monitor renal function daily. - Continue to Hold gabapentin and Keppra. (3) Metabolic encephalopathy Current Visit: Yes Status: Acute Patient presented with metabolic encephalopathy suspected due to polypharmacy and acute on chronic renal failure. At this time gabapentin, Keppra, opiates and other sedating or altering medications have been held. 12/05/2016 patient alert awake interactive, metabolic encephalopathy likely resolved. Suspect polypharmacy in conjunction with acute kidney injury. Plan: - continue to monitor neurologic status. - Consider other causes of altered mental status. - Neurology is following. (4) Myoclonic jerking Current Visit: Yes Status: Acute Patient presented with abnormal limb jerking movements. Patient was seen on the in the emergency department with abnormal extremity movements. Consider side effect of medications, with acute on chronic kidney injury. Patient is currently followed by neurology. Medications held include gabapentin, Keppra, enalapril Plan: -Continue to hold Keppra and gabapentin. - management per neurology. (5) Anemia Current Visit: No Status: Acute Acute on chronic anemia. Patient has known anemia secondary to chronic kidney disease. Hemoglobin stable around 7.5. Patient had positive stool: Yesterday with bright red blood around his rectum. Likely hemorrhoid. Hemoglobin has been stable with no volume loss. Plan: - Recheck H&H with a.m. labs. - Continue IV Protonix 40 mg once a day. Qualifiers: Anemia type: other cause Other causes of anemia: chronic disease, kidney Qualified Code(s): N18.9 - Chronic kidney disease, unspecified; D63.1 - Anemia in chronic kidney disease (6) Diastolic CHF Current Visit: No Status: Acute History of diastolic failure, likely fluid overloaded, fluid balance +3 L at this time. May be contributing to patient's recent cardiac arrest. 12/04/2016 patient was diuresed yesterday, cumulative fluid balance is +2 L. Plan for gentle diuresis. 12/05/2016: Patient appears euvolemic, improving history of present illness with improving creatinine. Chest x-ray demonstrates improvement. Plan: - Strict monitoring of I&O - Daily weights - Restarted rosuvastatin, aspirin, Coreg, holding enalapril with DANY Qualifiers: Qualified Code(s): I50.30 - Unspecified diastolic (congestive) heart failure (7) Hypertension Current Visit: Yes Status: Acute Patient has a history of hypertension with oral antihypertensive medications held due to endotracheal intubation. Patient's blood pressures are elevated around 160 systolically. Given his REYES on C daily Will hold his enalapril. Plan: - Restart amlodipine - Restart Coreg Qualifiers: Qualified Code(s): I10 - Essential (primary) hypertension (8) DVT prophylaxis Current Visit: No Status: Acute Subcutaneous heparin. Subjective Principal diagnosis: Acute respiratory failure Interval history: Mr. Regalado has been seen and evaluated patient bedside this morning. He tolerated CPAP trial was successfully extubated this morning. He denies any discomfort or pain and asked when he can leave. He feels like he needs to urinate and have a bowel movement but has only been having flatulence. He responds appropriately to questions and has no other further concerns at this time. Objective PUL Vital signs: Last Vital Signs Temp 97.9 F 12/05/16 07:50 Pulse 66 12/05/16 08:00 Resp 11 12/05/16 09:10 BP 169/64 12/05/16 08:00 Pulse Ox 100 12/05/16 09:10 Gen: Well-developed well-nourished, alert and interactive HEENT: Normocephalic atraumatic, pupils equal reactive to light, Oral mucosa dry. EOMI, Neck is supple trachea is midline. No crepitus or lymphadenopathy appreciated on palpation. Chest: Symmetric bilateral correlating with respiratory effort, respiratory effort nonlabored. Cardiac: Regular rate and rhythm with grade 2/6 systolic ejection murmur. Upper extremity capillary refill is 2+ bilateral. Diminished bilateral posterior tibial pulses. Feet are warm to touch. Respiratory: Diminished breath sounds in the left lung acharya. Clear to auscultation the right. Abdomen: Distended, positive bowel sounds. Extremities Right foot is wrapped Fifth right LE digit amputation . Third right LE digit previously amputated. Trace edema to anterior shins bilaterally. skin: Pale and dry. Ventilator Settings Ventilator Settings: Ventilator Settings, Last 8 Hours Ventilator Mode VC+ Ventilator Mode VC+ Ventilator Mode VC+ Ventilator Mode VC+ Ventilator Mode VC+ Ventilator Mode VC+ Ventilator Mode VC+ Ventilator Mode VC+ Ventilator Tidal Volume 450 Setting Ventilator Tidal Volume 450 Setting Ventilator Tidal Volume 450 Setting Ventilator Tidal Volume 450 Setting Ventilator Tidal Volume 450 Setting Ventilator Tidal Volume 450 Setting Ventilator Tidal Volume 450 Setting Ventilator Tidal Volume 450 Setting Ventilator Respiratory Rate 12 Setting Ventilator Respiratory Rate 12 Setting Ventilator Respiratory Rate 12 Setting Ventilator Respiratory Rate 12 Setting Ventilator Respiratory Rate 12 Setting Ventilator Respiratory Rate 12 Setting Ventilator Respiratory Rate 12 Setting Ventilator Respiratory Rate 12 Setting Actual Respiratory Rate 22 Actual Respiratory Rate 19 Positive End Expiratory 5 Pressure Positive End Expiratory 5 Pressure Positive End Expiratory 5 Pressure Positive End Expiratory 5 Pressure Positive End Expiratory 5 Pressure Positive End Expiratory 5 Pressure Positive End Expiratory 5 Pressure Positive End Expiratory 5 Pressure Peak Inspiratory Airway 17 Pressure Peak Inspiratory Airway 21 Pressure Results - Laboratory Findings CBC and BMP: 12/05/16 03:55 12/05/16 03:55 ABG ABG pH 7.41 pH Units (7.32-7.45) 12/05/16 05:12 ABG pCO2 45 mmHg (35-45) 12/05/16 05:12 ABG pO2 80 mmHg (85-104) L 12/05/16 05:12 ABG O2 Saturation 96 % (95-98) 12/05/16 05:12 Abnormal lab findings: Abnormal lab results RBC 2.60 M/mcL (4.19-5.50) L 12/05/16 03:55 Hgb 7.4 g/dL (12.9-16.9) L 12/05/16 03:55 Hct 22.9 % (37.5-50.1) L 12/05/16 03:55 RDW 16.1 % (11.5-14.5) H 12/05/16 03:55 ABG pO2 80 mmHg (85-104) L 12/05/16 05:12 ABG HCO3 28.5 mEQ/L (21-27) H 12/05/16 05:12 ABG Total CO2 29.9 mEq/L (20-26) H 12/05/16 05:12 ABG Base Excess 3.5 mEq/L (-2.0 to 3.0) H 12/05/16 05:12 Sodium 149 mEq/L (136-145) H 12/05/16 03:55 Chloride 113 mEq/L (98-109) H 12/05/16 03:55 BUN 40 mg/dL (8-26) H 12/05/16 03:55 Creatinine 2.52 mg/dL (0.72-1.25) H 12/05/16 03:55 Est GFR ( Amer) 32 (> 60) L 12/05/16 03:55 Est GFR (Non-Af Amer) 26 (> 60) L 12/05/16 03:55 Glucose 137 mg/dL (70-99) H 12/05/16 03:55 POC Glucose 210 (58-89) H 12/05/16 07:46 Calculated Osmolality 320 (280-300) H 12/05/16 03:55 Calcium 7.8 mg/dL (8.6-10.8) L 12/05/16 03:55 B-Natriuretic Peptide 365 pg/mL (0-100) H 12/02/16 12:23 Serum Total Protein 5.8 g/dL (6.0-8.3) L 12/04/16 04:11 Albumin 2.0 g/dL (3.5-5.0) L 12/04/16 04:11 Globulin 3.8 g/dL (2.4-3.5) H 12/04/16 04:11 Albumin/Globulin Ratio 0.5 (1.1-2.2) L 12/04/16 04:11 Urine Clarity Cloudy (Clear) A 12/02/16 12:27 Urine Protein >=300 mg/dL (Neg-Trace) H 12/02/16 12:27 Urine Glucose (UA) 250 mg/dL (Normal) H 12/02/16 12:27 Urine Ketones Trace mg/dL (Negative) H 12/02/16 12:27 Urine Blood Large (Negative) H 12/02/16 12:27 Urine Microscopic RBC 15-30 per hpf (0-3) H 12/02/16 12:27 Urine Microscopic WBC 5-15 per hpf (0-3) H 12/02/16 12:27 Ur Squamous Epith Cells Many per lpf (None-Few) H 12/02/16 12:27 Ur Culture Indicated? YES (NO) A 12/02/16 12:27 Stool Occult Blood Positive (Negative) A 12/03/16 14:06 - Microbiology Findings Microbiology Findings: Microbiology, Last 48 Hours 12/04/16 09:51 Respiratory Culture - Preliminary Left Upper Lobe Lung Normal upper respiratory tract sadi. No apparent pathogens isolated. 12/04/16 09:51 Gram Stain - Final Left Upper Lobe Lung 12/03/16 18:35 Sputum Culture - Final Sputum - Clinical Findings Intake & Output: Intake & Output 12/04/16 12/05/16 12/05/16 23:59 07:59 15:59 Intake Total 715 / 715 707 / 707 5 / 5 Output Total 900 / 900 500 / 500 175 / 175 Balance -185 / -185 207 / 207 -170 / -170 Weight 106.685 kg Consult Discharge Plan - Plan Referrals: NO,PCP [Non-Partnered Physician] - <Ariana Hawthorne - Last Filed: 12/05/16 13:34> Objective PUL Vital signs: Last Vital Signs Temp 97.6 F 12/05/16 11:25 Pulse 90 12/05/16 12:00 Resp 16 12/05/16 12:06 BP 183/73 12/05/16 12:00 Pulse Ox 94 L 12/05/16 12:06 Ventilator Settings Ventilator Settings: Ventilator Settings, Last 8 Hours Ventilator Mode VC+ Ventilator Tidal Volume 450 Setting Ventilator Respiratory Rate 12 Setting Positive End Expiratory 5 Pressure Results - Laboratory Findings CBC and BMP: 12/05/16 03:55 12/05/16 03:55 ABG ABG pH 7.41 pH Units (7.32-7.45) 12/05/16 05:12 ABG pCO2 45 mmHg (35-45) 12/05/16 05:12 ABG pO2 80 mmHg (85-104) L 12/05/16 05:12 ABG O2 Saturation 96 % (95-98) 12/05/16 05:12 Abnormal lab findings: Abnormal lab results RBC 2.60 M/mcL (4.19-5.50) L 12/05/16 03:55 Hgb 7.4 g/dL (12.9-16.9) L 12/05/16 03:55 Hct 22.9 % (37.5-50.1) L 12/05/16 03:55 RDW 16.1 % (11.5-14.5) H 12/05/16 03:55 ABG pO2 80 mmHg (85-104) L 12/05/16 05:12 ABG HCO3 28.5 mEQ/L (21-27) H 12/05/16 05:12 ABG Total CO2 29.9 mEq/L (20-26) H 12/05/16 05:12 ABG Base Excess 3.5 mEq/L (-2.0 to 3.0) H 12/05/16 05:12 Sodium 149 mEq/L (136-145) H 12/05/16 03:55 Chloride 113 mEq/L (98-109) H 12/05/16 03:55 BUN 40 mg/dL (8-26) H 12/05/16 03:55 Creatinine 2.52 mg/dL (0.72-1.25) H 12/05/16 03:55 Est GFR ( Amer) 32 (> 60) L 12/05/16 03:55 Est GFR (Non-Af Amer) 26 (> 60) L 12/05/16 03:55 Glucose 137 mg/dL (70-99) H 12/05/16 03:55 POC Glucose 179 (58-89) H 12/05/16 11:25 Calculated Osmolality 320 (280-300) H 12/05/16 03:55 Calcium 7.8 mg/dL (8.6-10.8) L 12/05/16 03:55 B-Natriuretic Peptide 365 pg/mL (0-100) H 12/02/16 12:23 Serum Total Protein 5.8 g/dL (6.0-8.3) L 12/04/16 04:11 Albumin 2.0 g/dL (3.5-5.0) L 12/04/16 04:11 Globulin 3.8 g/dL (2.4-3.5) H 12/04/16 04:11 Albumin/Globulin Ratio 0.5 (1.1-2.2) L 12/04/16 04:11 Urine Clarity Cloudy (Clear) A 12/02/16 12:27 Urine Protein >=300 mg/dL (Neg-Trace) H 12/02/16 12:27 Urine Glucose (UA) 250 mg/dL (Normal) H 12/02/16 12:27 Urine Ketones Trace mg/dL (Negative) H 12/02/16 12:27 Urine Blood Large (Negative) H 12/02/16 12:27 Urine Microscopic RBC 15-30 per hpf (0-3) H 12/02/16 12:27 Urine Microscopic WBC 5-15 per hpf (0-3) H 12/02/16 12:27 Ur Squamous Epith Cells Many per lpf (None-Few) H 12/02/16 12:27 Ur Culture Indicated? YES (NO) A 12/02/16 12:27 Stool Occult Blood Positive (Negative) A 12/03/16 14:06 - Microbiology Findings Microbiology Findings: Microbiology, Last 48 Hours 02/28/17 09:51 Respiratory Culture - Preliminary Left Upper Lobe Lung Normal upper respiratory tract sadi. No apparent pathogens isolated. 12/04/16 09:51 Gram Stain - Final Left Upper Lobe Lung 12/03/16 18:35 Sputum Culture - Final Sputum - Clinical Findings Intake & Output: Intake & Output 12/04/16 12/05/16 12/05/16 23:59 07:59 15:59 Intake Total 715 / 715 707 / 707 5 / 5 Output Total 900 / 900 500 / 500 650 / 650 Balance -185 / -185 207 / 207 -645 / -645 Weight 106.685 kg - Attending Attestation I examined this patient and my medical decision-making was reviewed with the PEDIATRIC SPEECH THERAPIST/PA/Advanced Practice Nurse/Resident Physician. I agree with the documented findings, disposition and treatment plan as described except to the extent set forth below. Patient seen and examined. Labs, radiology, chart personally reviewed. Agree with resident's history and physical, assessment, plan with following comments: [employer]: Patient follows commands, Pulmonary: Acceptable oxygenation and ventilation and patient was extubated successfully. Cardiovascular: stable. Cardiology opinion regarding his history of cardiac arrest twice. GI: Nutrition per dietary and GI prophylaxis per routine Heme: DVT prophylaxis per routine ID: Continue antibiotics and plan to de-escalation Renal; urine out put and renal funtion reviewed Endorcine: blood glucose is monitored Lines: all lines checked and no evidence of infections Skin: skin care to prevent pressure ulcers per nursing routine care
[2016-12-05] MEDS ORDERED: 0.9 % Sodium Chloride 1,000 ML IVC SCH (09:30)
[2016-12-05] MEDS ORDERED: amLODIPine 5 MG TABLET PO SCH (11:00)
--- NOTE | 2016-12-05 13:09 | Cardiology Consult Note ---
Date of Encounter: 12/05/16 Time of Encounter: 13:10 Assessment and Plan (1) PEA (Pulseless electrical activity) Current Visit: Yes Status: Acute S/p PEA arrest in the setting of hypoxia during intubation. 2nd event of PEA in one month. Both occurred during hypoxic events and metabolic encephalopathy. 11/17/16- EF 60-65%, indeterminate diastolic dysfunction. Mild MR, mild TR. No further cardiac testing recommended. Likely secondary to hypoxia. Not a good candidate for invasive evaluation in the setting of DANY and acute on chronic anemia, Hgb 7.4. (2) Acute respiratory failure with hypoxia Current Visit: Yes Status: Acute Patient was admitted with acute respiratory failure with hypoxia in the setting of CKD, diastolic heart failure, and COPD. Extubated this morning. Required broncoscopy and mucus plug removal 12/04. CXR-Interval improvement in left hemithorax aeration with a persistent left base opacity and trace effusion. New mild pulmonary edema. Trace right effusion. Continue IV diuretic as tolerated. (3) Diastolic CHF Current Visit: No Status: Acute History of diastolic failure complicated by CKD. TTE 11/17/16- EF 60-65%. Indeterminate diastolic function. Mild MR and TR. CXR showed new mild pulmonary edema. Recieving IV lasix 40 mg. CHF education reviewed with the patient. Low sodium diet and daily weights. Qualifiers: Qualified Code(s): I50.30 - Unspecified diastolic (congestive) heart failure (4) Acute kidney injury superimposed on chronic kidney disease Current Visit: No Status: Acute Creatinine 2.52. Mildly above baseline. Improved from yesterday (3.01). Improvement with iv diuretic. Continue to monitor. Discussion w patient/family: The assessment and plan as outlined above was discussed with the patient and/or family members who expressed understanding and agreement. All questions were answered. Thank you for involving us in the care of your patient. Please call with any questions. History of Present Illness Consult date: 12/05/16 Requesting physician: Nico Stevens Consult reason: recurrent PEA arrest Chief complaint: respiratory distress History of present illness: Mr. Regalado is a 61 year old male with multiple co-morbidities including CKD, COPD, diastolic heart failure, and chronic anemia, hypertension, HLD, DM type II who presented with respiratory distress from an ECF. He required intubation and ventilator support after arrival to ED. During intubation he developed PEA and received 2-3 min of CPR. This is the second time he had cardiac arrest with PEA requiring ACLS in the last month. Both occurrences occurred during DANY and hypoxia d/t diastolic heart failure with pulmonary edema. He was seen by cardiology 11/19/16. TTE showed normal LV function at that time. He required urgent dialysis during his last visit for fluid overload. On my exam he is sob. He c/o chest discomfort with palpation that he says is from CPR. Denies exertional chest discomfort recently. Denies jaw or arm pain. Denies palpitations. Denies orthopnea or edema Past Med Surg Social Fam HX - Past Medical History Medical history: arthritis, COPD, diabetes, GERD, hepatitis, hyperlipidemia, hypertension, osteoporosis, renal disease, syncope Psychiatric history: anxiety, depression - Past Surgical History Surgical History: cataract, LE stent(s), orthopedic, other - Social History Smoking Status: Current every day smoker Smokeless Tobacco Status: No Alcohol use: none Drug use: none - Family History Mother Living Status: Hx Family Cardiac Disorders: Yes (htn) Hx Family Respiratory Disorders: No Hx Family Cancer: Yes Hx Family Endocrine Disorder: Yes (dm) Father Living Status: Medications and Allergies Aspirin [Adult Low Dose Aspirin EC] 81 mg PO DAILY 12/11/15 [History] Budesonide/Formoterol 160/4.5 [Symbicort 160/4.5] 2 puff IH BIDR 12/11/15 [ History] Citalopram Hydrobromide [Celexa] 20 mg PO DAILY 12/11/15 [History] Enalapril Maleate [Vasotec] 10 mg PO QPM 12/11/15 [History] Ergocalciferol (VITAMIN D2) [Vitamin D2 (50,000 UNIT)] 50,000 unit PO MÁRQUEZ [History] Gabapentin [Neurontin] 600 mg PO TID 12/11/15 [History] Hydroxyzine HCl 50 mg PO BID 12/11/15 [History] Insulin ASPART [Novolog] 36 - 38 unit SQ TIDWM 12/11/15 [History] Omeprazole [PriLOSEC] 20 mg PO BID 12/11/15 [History] Ropinirole [Requip] 1 mg PO HS 12/11/15 [History] Rosuvastatin [Crestor] 40 mg PO DAILY 12/11/15 [History] SitaGLIPtin [Januvia] 100 mg PO DAILY 12/11/15 [History] Trazodone HCl [TraZODone] 100 mg PO HS 12/11/15 [History] Oxycodone HCl/Acetaminophen [Percocet 10-325 mg Tablet] 1 tab PO Q4H PRN #20 tablet 12/15/15 [Rx] Amlodipine [Norvasc] 5 mg PO DAILY #30 tablet 08/08/16 [Rx] Ampicillin/Sulbactam [Unasyn] 3,000 mg IVPB BID 20 Days 11/28/16 [Rx] Carvedilol [Coreg] 25 mg PO BIDWM #60 tablet 11/28/16 [Rx] Cyanocobalamin (B-12) [Vitamin B12] 1,000 mcg PO DAILY #90 tablet 11/28/16 [Rx] Ferrous Sulfate 325 mg PO BIDWM #180 tablet 11/28/16 [Rx] Insulin DETEMIR [Levemir] 20 unit SQ DAILY #5 vial 11/28/16 [Rx] Lactobacillus [Culturelle] 1 each PO BID #60 cap.sprink 11/28/16 [Rx] LevETIRAcetam [Keppra] 500 mg PO Q12HR #60 tablet 11/28/16 [Rx] Magnesium Oxide [Mag-Ox] 400 mg PO BID #60 tablet 11/28/16 [Rx] Nicotine Patch [Nicoderm] 21 mg TD DAILY #30 patch.td24 11/28/16 [Rx] Polyethylene Glycol 3350 [MiraLAX] 17 gm PO DAILY #30 powd.pack 11/28/16 [Rx] Sennosides [Senna] 8.6 mg PO DAILY #06 tablet 11/28/16 [Rx] Tamsulosin [Flomax] 0.4 mg PO DAILY #30 capsule 11/28/16 [Rx] Thiamine HCl 250 mg PO DAILY #90 tablet 11/28/16 [Rx] Albuterol Neb [Proventil Neb] 2.5 mg IH Q4HR 12/02/16 [History] Furosemide [Lasix] 40 mg PO DAILY 12/02/16 [History] Insulin LISPRO [Humalog] 2 - 12 unit SQ TIDWM 12/02/16 [History] Allergies acetaminophen [From Darvocet-N] Allergy (Verified 12/11/15 11:46) Hives ibuprofen Allergy (Verified 12/11/15 11:46) Hives propoxyphene [From Darvocet-N] Allergy (Verified 12/11/15 11:46) Hives tramadol [From Ultram] Allergy (Verified 12/11/15 11:46) Hives All Systems Review: A 10-system review of systems was performed and is negative for pertinent findings except as documented above in the HPI. Physical Examination Vital Signs, Last 4 Hours Temp Pulse Resp BP Pulse Ox 12/05/16 12:06 16 94 L 12/05/16 12:00 90 22 183/73 96 12/05/16 11:36 73 12/05/16 11:25 97.6 F 12/05/16 11:00 86 20 183/85 97 12/05/16 10:00 73 22 172/79 93 L 12/05/16 09:10 11 100 General: Conversant HEENT: Atraumatic, Normocephaly, Mucus Membranes Moist Neck: No JVD, Normal carotid pulses Cardiac: Reg Rate and Rhythm, Normal S1 and S2, No Murmur Lungs: No Wheeze, Rales, Rhonchi, Other (tachypnic) Neuro: Alert and responsive, No focal deficits noted Abdomen: Soft, Non-Tender, Other (multiple bruised areas) Skin: No rashes noted on visualized skin Musculoskeletal: Other (mildly tender to palpation) Extremities: No Clubbing, No Cyanosis, No Edema, Normal Pulses Results 12/05/16 03:55 12/05/16 03:55 Lab Results 12/05/16 12/05/16 03:55 03:55 WBC 4.4 Hgb 7.4 L Hct 22.9 L Plt Count 294 Sodium 149 H Potassium 3.6 Chloride 113 H Carbon Dioxide 26 BUN 40 H Creatinine 2.52 H Glucose 137 H Calcium 7.8 L Soft Tissue Neck CT 12/02/16 12:25 IMPRESSION: 1. Examination is significantly degraded by extensive patient motion artifact as well as lack of IV contrast. 2. The palatine tonsils are enlarged and may be reactive. 3. The airway is patent. Evaluation for mucosal mass is compromised due to patient motion artifact. 4. Secretions in the trachea. 5. Small bilateral pleural effusions. Patchy left lung opacity may represent atelectasis versus infiltrate. D/ / 12/02/2016 14:28:08 Jacy Carrillo MD / earnold Interpreting Provider: Jacy Carrillo MD Head CT 12/02/16 13:10 IMPRESSION: No acute intracranial abnormality. D/ / Mal Estrada MD / Mal Estrada MD Interpreting Provider: Mal Estrada MD Chest CT 12/02/16 13:21 IMPRESSION: 1. Exam limited by patient respiratory motion artifact. 2. Trace bilateral pleural effusions with adjacent bibasilar ground-glass and early consolidative opacities compatible atelectasis versus infiltrates. D/ / Mal Estrada MD / Mal Estrada MD Interpreting Provider: Mal Estrada MD X-Ray 12/02/16 17:34 IMPRESSION: 1. Orogastric tube with its tip in the mid antrum of the stomach. 2. Side port is below the gastroesophageal junction. D/ / Memo Barros MD / Memo Barros MD Interpreting Provider: Memo Barros MD Chest X-Ray 12/05/16 04:00 IMPRESSION: 1. Stable lines and tubes. 2. Interval improvement in left hemithorax aeration with a persistent left base opacity and trace effusion. 3. New mild pulmonary edema. 4. Trace right effusion. D/ / 12/05/2016 08:10:09 Stella Askew MD / damaris Interpreting Provider: Stella Askew MD - Imaging and Cardiology Echo: report reviewed (11/17/16- EF 60-65%, indeterminate diastolic dysfunction. Mild MR, mild TR.) - EKG Interpretation EKG results cardiology: personally reviewed Consult Discharge Plan - Plan Referrals: NO,PCP [Non-Partnered Physician] -
[2016-12-05] MEDS ORDERED: Insulin LISPRO 300 UNITS/3 ML VIAL SQ SCH ×2 (16:30→21:00)
[2016-12-05] MEDS ORDERED: D5% in Water 1,000 ML IV PRN (17:29)
[2016-12-05] MEDS ORDERED: *HR* Dextrose 50 % in Water (Syg) 50 ML SYRINGE IVP PRN (17:29)
[2016-12-05] MEDS ORDERED: Naloxone 0.4 MG/ML INJ IVP PRN (17:29)
[2016-12-05] MEDS ORDERED: Dextrose Gel 15 GM PO PRN ×2 (17:29)
--- NOTE | 2016-12-05 19:14 | Neurology Progress Note ---
Date of Encounter: 12/05/16 Time of Encounter: 19:12 Assessment and Plan (1) Altered mental status Current Visit: Yes Status: Acute Improved. Likely secondary to severe encephalopathy associated with multiple medical conditions. Qualifiers: Altered mental status type: delirium Qualified Code(s): R41.0 - Disorientation, unspecified (2) Myoclonic jerking Current Visit: Yes Status: Acute Improving as medical conditions improve. No recurrent seizures and diagnosis of seizures not supported. Myoclonic jerking correlates with his especially his renal status. Will recommend discontinue the use of keppra and gabapentin, which has been held since admission. Will sign off at this time. Please call if any questions Subjective Principal diagnosis: Myoclonic jerking, possible seizure Interval history: Patient seen and examined. Patient is exubated and wide awake. Per nursing staff no seizure like activity seen. No significant myoclonic jerking noted. Patient if currently off gabapentin and keppra. Objective - Constitutional Vitals: Temp Pulse Resp BP Pulse Ox 97.8 F 74 16 171/72 97 12/05/16 15:40 12/05/16 15:43 12/05/16 17:09 12/05/16 15:00 12/05/16 17:09 - Neurological Exam Sensorimotor examination: Present: other (Grossly intact) Motor Examination: Present: other (Is able to move all extremities with equal strength) Sensation intact: Present: other (Grossly intact) Posture: Present: other (None) Reflexes: Biceps: 1+, Triceps: 1+, Brachioradialis: 1+, Patella: 1+, Achilles: 1 + Mental Status Examination: Present: awake, alert, oriented to person, oriented to place, follows commands appropriately, answers questions appropriately Cranial nerve examination: Present: PERRL, EOMI, visual acharya intact, corneal reflexes brisk symmetrically, sensory to face intact, mastication intact, no facial asymmetry is present, no dysarthria (Patient dysphonic, likely related to intubation. Language content appears intact), hearing is intact symmetrically , soft palate elevates bilaterally upon phonation, gag reflex intact Results - Laboratory Findings CBC and BMP: 12/05/16 03:55 12/05/16 03:55 Abnormal lab findings: Abnormal lab results RBC 2.60 M/mcL (4.19-5.50) L 12/05/16 03:55 Hgb 7.4 g/dL (12.9-16.9) L 12/05/16 03:55 Hct 22.9 % (37.5-50.1) L 12/05/16 03:55 RDW 16.1 % (11.5-14.5) H 12/05/16 03:55 ABG pO2 80 mmHg (85-104) L 12/05/16 05:12 ABG HCO3 28.5 mEQ/L (21-27) H 12/05/16 05:12 ABG Total CO2 29.9 mEq/L (20-26) H 12/05/16 05:12 ABG Base Excess 3.5 mEq/L (-2.0 to 3.0) H 12/05/16 05:12 Sodium 149 mEq/L (136-145) H 12/05/16 03:55 Chloride 113 mEq/L (98-109) H 12/05/16 03:55 BUN 40 mg/dL (8-26) H 12/05/16 03:55 Creatinine 2.52 mg/dL (0.72-1.25) H 12/05/16 03:55 Est GFR ( Amer) 32 (> 60) L 12/05/16 03:55 Est GFR (Non-Af Amer) 26 (> 60) L 12/05/16 03:55 Glucose 137 mg/dL (70-99) H 12/05/16 03:55 POC Glucose 130 (58-89) H 12/05/16 15:41 Calculated Osmolality 320 (280-300) H 12/05/16 03:55 Calcium 7.8 mg/dL (8.6-10.8) L 12/05/16 03:55 B-Natriuretic Peptide 365 pg/mL (0-100) H 12/02/16 12:23 Serum Total Protein 5.8 g/dL (6.0-8.3) L 12/04/16 04:11 Albumin 2.0 g/dL (3.5-5.0) L 12/04/16 04:11 Globulin 3.8 g/dL (2.4-3.5) H 12/04/16 04:11 Albumin/Globulin Ratio 0.5 (1.1-2.2) L 12/04/16 04:11 Urine Clarity Cloudy (Clear) A 12/02/16 12:27 Urine Protein >=300 mg/dL (Neg-Trace) H 12/02/16 12:27 Urine Glucose (UA) 250 mg/dL (Normal) H 12/02/16 12:27 Urine Ketones Trace mg/dL (Negative) H 12/02/16 12:27 Urine Blood Large (Negative) H 12/02/16 12:27 Urine Microscopic RBC 15-30 per hpf (0-3) H 12/02/16 12:27 Urine Microscopic WBC 5-15 per hpf (0-3) H 12/02/16 12:27 Ur Squamous Epith Cells Many per lpf (None-Few) H 12/02/16 12:27 Ur Culture Indicated? YES (NO) A 12/02/16 12:27 Stool Occult Blood Positive (Negative) A 12/03/16 14:06 Consult Discharge Plan - Plan Referrals: NO,PCP [Non-Partnered Physician] -
[2016-12-05] MEDS: Insulin DETEMIR 100 UNIT/ML X5UNITS SQ SCH (20:52)
[2016-12-06 04:23] LABS: Hematocrit 21.9 % (37.5-50.1); Hemoglobin 6.9 g/dL (12.9-16.9); Mean Corpuscular HGB Conc 31.5 g/dL (31.6-35.5); Mean Corpuscular Hemoglobin 27.4 pg (28.0-33.3); Mean Corpuscular Volume 86.9 fL (83.0-100.0); Mean Platelet Volume 9.7 fL (9.4-12.4); Platelet Count 393 K/mcL (140-400); Red Blood Count 2.52 M/mcL (4.19-5.50); Red Cell Distribution Width 15.8 % (11.5-14.5)
[2016-12-06] MEDS: Ipratropium/Albuterol Neb 3 ML IH SCH ×5 (04:26→21:14)
[2016-12-06 04:59] LABS: Albumin 2.1 g/dL (3.5-5.0); Albumin/Globulin Ratio 0.5 (1.1-2.2); Bilirubin,Total 0.4 mg/dL (0.2-1.2); Calcium 8.1 mg/dL (8.6-10.8); Globulin 3.9 g/dL (2.4-3.5); Potassium 3.6 mEq/L (3.5-4.5)
[2016-12-06] MEDS: Ampicillin/Sulbactam 3,000 MG in 0.9 % Sodium Chloride Mini Bag 100 ML IVPB SCH ×2 (06:04→17:23)
[2016-12-06] MEDS: *HR* Heparin 5,000 UNIT/ML VIAL SQ SCH ×2 (06:04→17:24)
[2016-12-06] MEDS: Pantoprazole 40 MG VIAL IVP SCH (08:14)
[2016-12-06] MEDS: amLODIPine 5 MG TABLET PO SCH (08:14)
[2016-12-06] MEDS: Chlorhexidine Rinse 15 ML MOUTHWASH MM SCH (08:15)
[2016-12-06] MEDS: Sennosides/Docusate Sodium TABLET PO SCH ×2 (08:15→20:41)
[2016-12-06] MEDS ORDERED: Furosemide 40 MG/4 ML VIAL IVP ONE (08:24)
[2016-12-06] MEDS: Insulin LISPRO 300 UNITS/3 ML VIAL SQ SCH ×4 (08:58→20:40)
[2016-12-06] MEDS ORDERED: Pantoprazole 40 MG VIAL IVP SCH (09:00)
--- NOTE | 2016-12-06 09:09 | Pulmonology Progress Note ---
<Frankie Baker - Last Filed: 12/06/16 09:21> Date of Encounter: 12/06/16 Time of Encounter: 08:00 Assessment and Plan (1) Acute respiratory failure with hypoxia Current Visit: Yes Status: Acute Patient was admitted with acute respiratory failure with hypoxia and subsequently intubated 12/02/2016. At that time he was found to have metabolic encephalopathy, known history of CJD, diastolic heart failure and underlying COPD. Recent admission for osteomyelitis, treatment was followed by PEA arrest. With his current admission he was admitted from a snf after his last discharge. Requiring intubation subsequently sustained PEA arrest and underwent 2-3 minutes of CPR with regain of circulation. There is suspicion for increased volume status was a contributing factor in his last cardiac arrest. Currently intubated and sedated in the ICU. Differential includes COPD exacerbation resulting in hypoxic respiratory failure , pulmonary edema, metabolic encephalopathy with aspiration pneumonia, respiratory suppression secondary to polypharmacy and chronic kidney disease. 12/04/2016 patient continues to require mechanical ventilation, chest x-ray demonstrated diffuse atelectasis of the left long and he required bronchoscopy with large mucous plug suctioned out of the left main bronchial tube. Consent was obtained by Kell adame. Patient failed CPAP trial this morning. Repeat CPAP trial this afternoon. 12/05/2016 patient successfully tolerate his CPAP and was successfully extubated. Chest x-ray this morning demonstrated significant improvement after bronchoscopy yesterday significant plug removal of the left main. He is awake alert and oriented on nasal cannula. No acute respiratory distress. 12/06/2016 Mr. llanos is resting without any concerns or complaints. He is tolerating 4 L nasal cannula. Mild crackles diffusely. We will likely benefit from more dose of Lasix. Plan: - Plan to transfer to general medical floor when patient stable - Restarted DuoNeb's and Proventil nebulizations. - Provide by mouth water - Continue Unasyn for treatment of osteoarthritis - Strict monitoring of daily weights, I&O, cardiac monitoring (2) DANY (acute kidney injury) Current Visit: Yes Status: Acute Acute kidney injury slightly improved compared to yesterday. We will more dose of Lasix today. Continue strict fluid restrictions. Plan: - Patient tolerating free water. - Strict ins and outs monitoring - Discontinue Cardoso catheter - Renally dose antibiotics and avoid nephrotoxic medications including NSAIDs - Monitor renal function daily. - Continue to Hold gabapentin and Keppra. (3) Metabolic encephalopathy Current Visit: Yes Status: Acute patient alert awake interactive, metabolic encephalopathy likely resolved. Suspect polypharmacy in conjunction with acute kidney injury. gabapentin, Keppra, opiates and other sedating or altering medications have been held. Plan: - continue to monitor neurologic status. - Consider other causes of altered mental status. - Neurology is following. (4) Myoclonic jerking Current Visit: Yes Status: Acute Patient presented with abnormal limb jerking movements. Patient was seen on the in the emergency department with abnormal extremity movements. Consider side effect of medications, with acute on chronic kidney injury. Patient is currently followed by neurology. Medications held include gabapentin, Keppra, enalapril Plan: -Continue to hold Keppra and gabapentin. - management per neurology. (5) Anemia Current Visit: No Status: Acute Acute on chronic anemia. Patient has known anemia secondary to chronic kidney disease. The hemoglobin and has been variable. Currently 6.9 and may need 1 unit PRBC transfusion. Plan: - Recheck H&H with a.m. labs. - Continue IV Protonix 40 mg once a day. Qualifiers: Anemia type: other cause Other causes of anemia: chronic disease, kidney Qualified Code(s): N18.9 - Chronic kidney disease, unspecified; D63.1 - Anemia in chronic kidney disease (6) Diastolic CHF Current Visit: No Status: Acute History of diastolic failure, likely fluid overloaded, fluid balance +3 L at this time. May be contributing to patient's recent cardiac arrest. 12/04/2016 patient was diuresed yesterday, cumulative fluid balance is +2 L. Plan for gentle diuresis. 12/05/2016: Patient appears euvolemic, improving history of present illness with improving creatinine. Chest x-ray demonstrates improvement. 12/06/2016 patient is euvolemic. Plan: - Strict monitoring of I&O - Daily weights - Restarted rosuvastatin, aspirin, Coreg, holding enalapril with DANY Qualifiers: Qualified Code(s): I50.30 - Unspecified diastolic (congestive) heart failure (7) Hypertension Current Visit: Yes Status: Acute Restarting antihypertensives with history of hypertension and elevated blood pressures Plan: - Continue amlodipine - Continue Coreg Qualifiers: Qualified Code(s): I10 - Essential (primary) hypertension (8) DVT prophylaxis Current Visit: No Status: Acute Subcutaneous heparin. Subjective Principal diagnosis: Acute respiratory failure, PEA arrest Interval history: Mr. Llanos has been seen and evaluated patient bedside this morning. He is resting comfortably without any concerns or complaints at this time. He still continues to have tachypnea but denies any discomforts. Objective PUL Vital signs: Last Vital Signs Temp 97.7 F 12/06/16 07:46 Pulse 70 12/06/16 07:24 Resp 28 12/06/16 08:33 BP 160/97 12/06/16 07:00 Pulse Ox 96 12/06/16 08:33 Gen: Well-developed well-nourished, alert and interactive HEENT: Normocephalic atraumatic, pupils equal reactive to light, Oral mucosa dry. EOMI, Neck is supple trachea is midline. Chest: Symmetric bilateral correlating with respiratory effort, respiratory effort nonlabored. Cardiac: Regular rate and rhythm with grade 2/6 systolic ejection murmur. Upper extremity capillary refill is 2+ bilateral. Diminished bilateral posterior tibial pulses. Feet are warm to touch. Respiratory: Diffuse crackles appreciated in all lung acharya.. Abdomen: Distended, positive bowel sounds. Nontender to palpation. Extremities Right foot is wrapped Fifth right LE digit amputation . Third right LE digit previously amputated. Trace edema to anterior shins bilaterally. skin: Pale and dry. Results - Laboratory Findings CBC and BMP: 12/06/16 03:49 12/06/16 03:49 ABG ABG pH 7.41 pH Units (7.32-7.45) 12/05/16 05:12 ABG pCO2 45 mmHg (35-45) 12/05/16 05:12 ABG pO2 80 mmHg (85-104) L 12/05/16 05:12 ABG O2 Saturation 96 % (95-98) 12/05/16 05:12 Abnormal lab findings: Abnormal lab results RBC 2.52 M/mcL (4.19-5.50) L 12/06/16 03:49 Hgb 6.9 g/dL (12.9-16.9) L 12/06/16 03:49 Hct 21.9 % (37.5-50.1) L 12/06/16 03:49 MCH 27.4 pg (28.0-33.3) L 12/06/16 03:49 MCHC 31.5 g/dL (31.6-35.5) L 12/06/16 03:49 RDW 15.8 % (11.5-14.5) H 12/06/16 03:49 ABG pO2 80 mmHg (85-104) L 12/05/16 05:12 ABG HCO3 28.5 mEQ/L (21-27) H 12/05/16 05:12 ABG Total CO2 29.9 mEq/L (20-26) H 12/05/16 05:12 ABG Base Excess 3.5 mEq/L (-2.0 to 3.0) H 12/05/16 05:12 Sodium 149 mEq/L (136-145) H 12/06/16 03:49 Chloride 113 mEq/L (98-109) H 12/06/16 03:49 BUN 28 mg/dL (8-26) H D 12/06/16 03:49 Creatinine 2.01 mg/dL (0.72-1.25) H 12/06/16 03:49 Est GFR ( Amer) 41 (> 60) L 12/06/16 03:49 Est GFR (Non-Af Amer) 34 (> 60) L 12/06/16 03:49 Glucose 155 mg/dL (70-99) H 12/06/16 03:49 POC Glucose 179 (58-89) H 12/06/16 07:06 Calculated Osmolality 317 (280-300) H 12/06/16 03:49 Calcium 8.1 mg/dL (8.6-10.8) L 12/06/16 03:49 B-Natriuretic Peptide 365 pg/mL (0-100) H 12/02/16 12:23 Albumin 2.1 g/dL (3.5-5.0) L 12/06/16 03:49 Globulin 3.9 g/dL (2.4-3.5) H 12/06/16 03:49 Albumin/Globulin Ratio 0.5 (1.1-2.2) L 12/06/16 03:49 Urine Clarity Cloudy (Clear) A 12/02/16 12:27 Urine Protein >=300 mg/dL (Neg-Trace) H 12/02/16 12:27 Urine Glucose (UA) 250 mg/dL (Normal) H 12/02/16 12:27 Urine Ketones Trace mg/dL (Negative) H 12/02/16 12:27 Urine Blood Large (Negative) H 12/02/16 12:27 Urine Microscopic RBC 15-30 per hpf (0-3) H 12/02/16 12:27 Urine Microscopic WBC 5-15 per hpf (0-3) H 12/02/16 12:27 Ur Squamous Epith Cells Many per lpf (None-Few) H 12/02/16 12:27 Ur Culture Indicated? YES (NO) A 12/02/16 12:27 Stool Occult Blood Positive (Negative) A 12/03/16 14:06 - Microbiology Findings Microbiology Findings: Microbiology, Last 48 Hours 12/04/16 09:51 Respiratory Culture - Final Left Upper Lobe Lung Normal upper respiratory tract sadi. No apparent pathogens isolated. 12/04/16 09:51 Gram Stain - Final Left Upper Lobe Lung - Clinical Findings Intake & Output: Intake & Output 12/05/16 12/06/16 12/06/16 23:59 07:59 15:59 Intake Total 100 / 100 250 / 250 Output Total 550 / 550 1075 / 1075 Balance -450 / -450 -825 / -825 Weight 105.279 kg Consult Discharge Plan - Plan Referrals: NO,PCP [Non-Partnered Physician] - <Ariana Hawthorne - Last Filed: 12/06/16 15:28> Objective PUL Vital signs: Last Vital Signs Temp 97.9 F 12/06/16 15:00 Pulse 63 12/06/16 15:07 Resp 20 12/06/16 15:00 BP 142/118 12/06/16 15:00 Pulse Ox 98 12/06/16 15:00 Results - Laboratory Findings CBC and BMP: 12/06/16 03:49 12/06/16 03:49 ABG ABG pH 7.41 pH Units (7.32-7.45) 12/05/16 05:12 ABG pCO2 45 mmHg (35-45) 12/05/16 05:12 ABG pO2 80 mmHg (85-104) L 12/05/16 05:12 ABG O2 Saturation 96 % (95-98) 12/05/16 05:12 Abnormal lab findings: Abnormal lab results RBC 2.52 M/mcL (4.19-5.50) L 12/06/16 03:49 Hgb 6.9 g/dL (12.9-16.9) L 12/06/16 03:49 Hct 21.9 % (37.5-50.1) L 12/06/16 03:49 MCH 27.4 pg (28.0-33.3) L 12/06/16 03:49 MCHC 31.5 g/dL (31.6-35.5) L 12/06/16 03:49 RDW 15.8 % (11.5-14.5) H 12/06/16 03:49 ABG pO2 80 mmHg (85-104) L 12/05/16 05:12 ABG HCO3 28.5 mEQ/L (21-27) H 12/05/16 05:12 ABG Total CO2 29.9 mEq/L (20-26) H 12/05/16 05:12 ABG Base Excess 3.5 mEq/L (-2.0 to 3.0) H 12/05/16 05:12 Sodium 149 mEq/L (136-145) H 12/06/16 03:49 Chloride 113 mEq/L (98-109) H 12/06/16 03:49 BUN 28 mg/dL (8-26) H D 12/06/16 03:49 Creatinine 2.01 mg/dL (0.72-1.25) H 12/06/16 03:49 Est GFR ( Amer) 41 (> 60) L 12/06/16 03:49 Est GFR (Non-Af Amer) 34 (> 60) L 12/06/16 03:49 Glucose 155 mg/dL (70-99) H 12/06/16 03:49 POC Glucose 239 (58-89) H 12/06/16 15:08 Calculated Osmolality 317 (280-300) H 12/06/16 03:49 Calcium 8.1 mg/dL (8.6-10.8) L 12/06/16 03:49 B-Natriuretic Peptide 365 pg/mL (0-100) H 12/02/16 12:23 Albumin 2.1 g/dL (3.5-5.0) L 12/06/16 03:49 Globulin 3.9 g/dL (2.4-3.5) H 12/06/16 03:49 Albumin/Globulin Ratio 0.5 (1.1-2.2) L 12/06/16 03:49 Urine Clarity Cloudy (Clear) A 12/02/16 12:27 Urine Protein >=300 mg/dL (Neg-Trace) H 12/02/16 12:27 Urine Glucose (UA) 250 mg/dL (Normal) H 12/02/16 12:27 Urine Ketones Trace mg/dL (Negative) H 12/02/16 12:27 Urine Blood Large (Negative) H 12/02/16 12:27 Urine Microscopic RBC 15-30 per hpf (0-3) H 12/02/16 12:27 Urine Microscopic WBC 5-15 per hpf (0-3) H 12/02/16 12:27 Ur Squamous Epith Cells Many per lpf (None-Few) H 12/02/16 12:27 Ur Culture Indicated? YES (NO) A 12/02/16 12:27 Stool Occult Blood Positive (Negative) A 12/03/16 14:06 - Microbiology Findings Microbiology Findings: Microbiology, Last 48 Hours 12/04/16 09:51 Respiratory Culture - Final Left Upper Lobe Lung Normal upper respiratory tract sadi. No apparent pathogens isolated. 12/04/16 09:51 Gram Stain - Final Left Upper Lobe Lung - Clinical Findings Intake & Output: Intake & Output 12/05/16 12/06/16 12/06/16 23:59 07:59 15:59 Intake Total 100 / 100 250 / 250 500 / 500 Output Total 550 / 550 1075 / 1075 2049 / 2049 Balance -450 / -450 -825 / -825 -1550 / -1550 Weight 105.279 kg - Attending Attestation I examined this patient and my medical decision-making was reviewed with the FISHING INSTRUCTOR/PA/Advanced Practice Nurse/Resident Physician. I agree with the documented findings, disposition and treatment plan as described except to the extent set forth below. Patient seen and examined. Labs, radiology, chart personally reviewed. Agree with resident's history and physical, assessment, plan with following comments: [employer]: Patient follows commands, Pulmonary: Acceptable oxygenation and ventilation Cardiovascular: stable GI: Nutrition per dietary and GI prophylaxis per routine Heme: DVT prophylaxis per routine. 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 ID: Continue antibiotics and plan to de-escalation Renal; urine out put and renal funtion reviewed Endorcine: blood glucose is monitored Lines: all lines checked and no evidence of infections Skin: skin care to prevent pressure ulcers per nursing routine care Awaiting for bed in the floor.
[2016-12-06] MEDS: Insulin DETEMIR 100 UNIT/ML X5UNITS SQ SCH (20:47)
[2016-12-07] MEDS: Ampicillin/Sulbactam 3,000 MG in 0.9 % Sodium Chloride Mini Bag 100 ML IVPB SCH ×4 (00:14→18:07)
[2016-12-07] MEDS: Ipratropium/Albuterol Neb 3 ML IH SCH ×7 (00:20→23:53)
[2016-12-07] MEDS ORDERED: *HR* FentaNYL (PF) 100 MCG/2 ML VIAL IVP PRN (03:16)
[2016-12-07] MEDS: *HR* OxyCODONE Immed Rel 5 MG TABLET PO PRN ×2 (04:17→21:29)
[2016-12-07 04:34] LABS: Basophils % 0.5 %; Eosinophils # 0.3 K/mcL (0.0-0.6); Eosinophils % 6.8 %; Hematocrit 23.8 % (37.5-50.1); Hemoglobin 7.5 g/dL (12.9-16.9); Immature Granulocytes % 1.3 % (0-4); Lymphocytes # 1.1 K/mcL (0.6-4.6); Lymphocytes % 28.2 %; Mean Corpuscular HGB Conc 31.5 g/dL (31.6-35.5); Mean Corpuscular Hemoglobin 26.5 pg (28.0-33.3); Mean Corpuscular Volume 84.1 fL (83.0-100.0); Mean Platelet Volume 8.9 fL (9.4-12.4); Monocytes # 0.5 K/mcL (0.0-1.3); Monocytes % 12.3 %; Platelet Count 469 K/mcL (140-400); Red Blood Count 2.83 M/mcL (4.19-5.50); Segmented Neutrophils % 50.9 %
[2016-12-07 04:52] LABS: Albumin 2.1 g/dL (3.5-5.0); Albumin/Globulin Ratio 0.5 (1.1-2.2); Bilirubin,Total 0.4 mg/dL (0.2-1.2); Calcium 8.2 mg/dL (8.6-10.8); Globulin 4.1 g/dL (2.4-3.5); Potassium 3.5 mEq/L (3.5-4.5); Total Protein 6.2 g/dL (6.0-8.3)
[2016-12-07] MEDS: *HR* Heparin 5,000 UNIT/ML VIAL SQ SCH ×2 (06:50→18:24)
[2016-12-07] MEDS: amLODIPine 5 MG TABLET PO SCH (09:17)
[2016-12-07] MEDS: Pantoprazole 40 MG VIAL IVP SCH (09:18)
[2016-12-07] MEDS: Sennosides/Docusate Sodium TABLET PO SCH (09:18)
[2016-12-07] MEDS: Insulin LISPRO 300 UNITS/3 ML VIAL SQ SCH ×4 (09:18→21:30)
[2016-12-07] MEDS ORDERED: Sennosides/Docusate Sodium TABLET PO PRN (10:00)
--- NOTE | 2016-12-07 10:59 | Pulmonology Progress Note ---
<Emmanuel Avila - Last Filed: 12/07/16 15:09> Date of Encounter: 12/07/16 Time of Encounter: 10:59 Assessment and Plan (1) Acute respiratory failure with hypoxia Current Visit: Yes Status: Acute Patient was admitted with acute respiratory failure with hypoxia and subsequently intubated 12/02/2016. At that time he was found to have metabolic encephalopathy, known history of CJD, diastolic heart failure and underlying COPD. Recent admission for osteomyelitis, treatment was followed by PEA arrest. With his current admission he was admitted from a long-term after his last discharge. Requiring intubation subsequently sustained PEA arrest and underwent 2-3 minutes of CPR with regain of circulation. There is suspicion for increased volume status was a contributing factor in his last cardiac arrest. Currently intubated and sedated in the ICU. Differential includes COPD exacerbation resulting in hypoxic respiratory failure , pulmonary edema, metabolic encephalopathy with aspiration pneumonia, respiratory suppression secondary to polypharmacy and chronic kidney disease. 12/04/2016 patient continues to require mechanical ventilation, chest x-ray demonstrated diffuse atelectasis of the left long and he required bronchoscopy with large mucous plug suctioned out of the left main bronchial tube. Consent was obtained by Kell adame. Patient failed CPAP trial this morning. Repeat CPAP trial this afternoon. 12/05/2016 patient successfully tolerate his CPAP and was successfully extubated. Chest x-ray this morning demonstrated significant improvement after bronchoscopy yesterday significant plug removal of the left main. He is awake alert and oriented on nasal cannula. No acute respiratory distress. 12/06/2016 Mr. llanos is resting without any concerns or complaints. He is tolerating 4 L nasal cannula. Mild crackles diffusely. We will likely benefit from more dose of Lasix. 12/07/2016 Resting, no concerns or complaints; pending transfer to the floor. Tolerating 2L via nasal cannula. Minimal crackles. Plan: - Plan to transfer to general medical floor - DuoNeb's and Proventil nebulizations. - Provide by mouth water - Continue Unasyn for treatment of osteoarthritis - Strict monitoring of daily weights, I&O, cardiac monitoring (2) DANY (acute kidney injury) Current Visit: Yes Status: Acute Acute kidney injury improved compared to yesterday. Continue strict fluid restrictions. Plan: - Patient tolerating free water. - Strict ins and outs monitoring - Renally dose antibiotics and avoid nephrotoxic medications including NSAIDs - Monitor renal function daily. - Continue to Hold gabapentin and Keppra. (3) Diastolic CHF Current Visit: No Status: Acute History of diastolic failure, likely fluid overloaded. May be contributing to patient's recent cardiac arrest. 12/04/2016 patient was diuresed yesterday, cumulative fluid balance is +2 L. Plan for gentle diuresis. 12/05/2016: Patient appears euvolemic, improving history of present illness with improving creatinine. Chest x-ray demonstrates improvement. 12/06/2016 patient is euvolemic. Plan: - Strict monitoring of I&O - Daily weights - Restarted rosuvastatin, aspirin, Coreg, holding enalapril with DANY Qualifiers: Congestive heart failure chronicity: acute on chronic Qualified Code(s): I50.33 - Acute on chronic diastolic (congestive) heart failure (4) Anemia Current Visit: No Status: Acute Acute on chronic anemia. Patient has known anemia secondary to chronic kidney disease. The hemoglobin and has been variable. Qualifiers: Anemia type: other cause Other causes of anemia: chronic disease, kidney Qualified Code(s): N18.9 - Chronic kidney disease, unspecified; D63.1 - Anemia in chronic kidney disease (5) Metabolic encephalopathy Current Visit: Yes Status: Acute Resolved. Patient alert, awake, interactive. Suspect polypharmacy in conjunction with acute kidney injury. Gabapentin, Keppra, opiates and other sedating or altering medications have been held. Plan: - continue to monitor neurologic status. - Consider other causes of altered mental status. - Neurology is following. (6) Osteomyelitis Current Visit: No Status: Acute Fifth right LE digit amputation . Third right LE digit previously amputated Patient has been refusing wound care. Podiatry consulted for re-evaluation. Code(s): M86.9 - Osteomyelitis, unspecified (7) Hypertension Current Visit: Yes Status: Acute - Continue amlodipine - Continue Coreg (8) Myoclonic jerking Current Visit: Yes Status: Acute Patient presented with abnormal limb jerking movements. Patient was seen on the in the emergency department with abnormal extremity movements. Consider side effect of medications, with acute on chronic kidney injury. Patient is currently followed by neurology. Medications held include gabapentin, Keppra, enalapril Plan: -Continue to hold Keppra and gabapentin. - management per neurology. (9) DVT prophylaxis Current Visit: No Status: Acute Subcutaneous heparin. Subjective Principal diagnosis: Acute respiratory failure, PEA arrest Interval history: No acute events overnight. Patient denies difficulty urinating. States he is feeling much better today. Afebrile. Objective PUL Vital signs: Last Vital Signs Temp 97.7 F 12/07/16 08:41 Pulse 63 12/07/16 10:00 Resp 21 12/07/16 10:00 BP 144/81 12/07/16 10:00 Pulse Ox 96 12/07/16 10:00 General appearance: no acute distress, alert ENT: oropharynx moist Neck: supple Effort: normal Auscultation: bilateral: rhonchi Cardiovascular: regular rate and rhythm, other (capillary refill <2 sec) Gastrointestinal: normoactive bowel sounds, soft, non-tender, non-distended Integumentary: normal Extremities: no cyanosis, other (Right foot currently wrapped, did not remove at this time pending podiatry's input.) normal mental status, non-focal exam mood appropriate, affect normal Results - Laboratory Findings CBC and BMP: 12/07/16 03:55 12/07/16 03:55 ABG ABG pH 7.41 pH Units (7.32-7.45) 12/05/16 05:12 ABG pCO2 45 mmHg (35-45) 12/05/16 05:12 ABG pO2 80 mmHg (85-104) L 12/05/16 05:12 ABG O2 Saturation 96 % (95-98) 12/05/16 05:12 Abnormal lab findings: Abnormal lab results WBC 4.0 K/mcL (4.3-11.1) L 12/07/16 03:55 RBC 2.83 M/mcL (4.19-5.50) L 12/07/16 03:55 Hgb 7.5 g/dL (12.9-16.9) L 12/07/16 03:55 Hct 23.8 % (37.5-50.1) L 12/07/16 03:55 MCH 26.5 pg (28.0-33.3) L 12/07/16 03:55 MCHC 31.5 g/dL (31.6-35.5) L 12/07/16 03:55 RDW 15.0 % (11.5-14.5) H 12/07/16 03:55 Plt Count 469 K/mcL (140-400) H 12/07/16 03:55 MPV 8.9 fL (9.4-12.4) L 12/07/16 03:55 ABG pO2 80 mmHg (85-104) L 12/05/16 05:12 ABG HCO3 28.5 mEQ/L (21-27) H 12/05/16 05:12 ABG Total CO2 29.9 mEq/L (20-26) H 12/05/16 05:12 ABG Base Excess 3.5 mEq/L (-2.0 to 3.0) H 12/05/16 05:12 Sodium 148 mEq/L (136-145) H 12/07/16 03:55 Creatinine 1.62 mg/dL (0.72-1.25) H 12/07/16 03:55 Est GFR ( Amer) 53 (> 60) L 12/07/16 03:55 Est GFR (Non-Af Amer) 44 (> 60) L 12/07/16 03:55 Glucose 141 mg/dL (70-99) H 12/07/16 03:55 POC Glucose 167 (58-89) H 12/07/16 08:01 Calculated Osmolality 311 (280-300) H 12/07/16 03:55 Calcium 8.2 mg/dL (8.6-10.8) L 12/07/16 03:55 B-Natriuretic Peptide 365 pg/mL (0-100) H 12/02/16 12:23 Albumin 2.1 g/dL (3.5-5.0) L 12/07/16 03:55 Globulin 4.1 g/dL (2.4-3.5) H 12/07/16 03:55 Albumin/Globulin Ratio 0.5 (1.1-2.2) L 12/07/16 03:55 Urine Clarity Cloudy (Clear) A 12/02/16 12:27 Urine Protein >=300 mg/dL (Neg-Trace) H 12/02/16 12:27 Urine Glucose (UA) 250 mg/dL (Normal) H 12/02/16 12:27 Urine Ketones Trace mg/dL (Negative) H 12/02/16 12:27 Urine Blood Large (Negative) H 12/02/16 12:27 Urine Microscopic RBC 15-30 per hpf (0-3) H 12/02/16 12:27 Urine Microscopic WBC 5-15 per hpf (0-3) H 12/02/16 12:27 Ur Squamous Epith Cells Many per lpf (None-Few) H 12/02/16 12:27 Ur Culture Indicated? YES (NO) A 12/02/16 12:27 Stool Occult Blood Positive (Negative) A 12/03/16 14:06 Gabapentin <0.5 ug/mL (2.0-20.0) L 12/02/16 Unknown - Microbiology Findings Microbiology Findings: Microbiology, Last 48 Hours 12/04/16 09:51 Respiratory Culture - Final Left Upper Lobe Lung Normal upper respiratory tract sadi. No apparent pathogens isolated. - Clinical Findings Intake & Output: Intake & Output 12/06/16 12/07/16 12/07/16 23:59 07:59 15:59 Intake Total 100 / 100 300 / 300 60 / 60 Output Total 300 / 300 600 / 600 Balance -200 / -200 -300 / -300 60 / 60 Weight 111.811 kg Consult Discharge Plan - Plan Referrals: NO,PCP [Non-Partnered Physician] - <Ariana Hawthorne - Last Filed: 12/07/16 16:08> Objective PUL Vital signs: Last Vital Signs Temp 97.9 F 12/07/16 11:16 Pulse 60 12/07/16 11:49 Resp 21 12/07/16 11:49 BP 162/70 12/07/16 11:49 Pulse Ox 100 12/07/16 11:49 Results - Laboratory Findings CBC and BMP: 12/07/16 03:55 12/07/16 03:55 ABG ABG pH 7.41 pH Units (7.32-7.45) 12/05/16 05:12 ABG pCO2 45 mmHg (35-45) 12/05/16 05:12 ABG pO2 80 mmHg (85-104) L 12/05/16 05:12 ABG O2 Saturation 96 % (95-98) 12/05/16 05:12 Abnormal lab findings: Abnormal lab results WBC 4.0 K/mcL (4.3-11.1) L 12/07/16 03:55 RBC 2.83 M/mcL (4.19-5.50) L 12/07/16 03:55 Hgb 7.5 g/dL (12.9-16.9) L 12/07/16 03:55 Hct 23.8 % (37.5-50.1) L 12/07/16 03:55 MCH 26.5 pg (28.0-33.3) L 12/07/16 03:55 MCHC 31.5 g/dL (31.6-35.5) L 12/07/16 03:55 RDW 15.0 % (11.5-14.5) H 12/07/16 03:55 Plt Count 469 K/mcL (140-400) H 12/07/16 03:55 MPV 8.9 fL (9.4-12.4) L 12/07/16 03:55 ABG pO2 80 mmHg (85-104) L 12/05/16 05:12 ABG HCO3 28.5 mEQ/L (21-27) H 12/05/16 05:12 ABG Total CO2 29.9 mEq/L (20-26) H 12/05/16 05:12 ABG Base Excess 3.5 mEq/L (-2.0 to 3.0) H 12/05/16 05:12 Sodium 148 mEq/L (136-145) H 12/07/16 03:55 Creatinine 1.62 mg/dL (0.72-1.25) H 12/07/16 03:55 Est GFR ( Amer) 53 (> 60) L 12/07/16 03:55 Est GFR (Non-Af Amer) 44 (> 60) L 12/07/16 03:55 Glucose 141 mg/dL (70-99) H 12/07/16 03:55 POC Glucose 192 (58-89) H 12/07/16 11:12 Calculated Osmolality 311 (280-300) H 12/07/16 03:55 Calcium 8.2 mg/dL (8.6-10.8) L 12/07/16 03:55 B-Natriuretic Peptide 365 pg/mL (0-100) H 12/02/16 12:23 Albumin 2.1 g/dL (3.5-5.0) L 12/07/16 03:55 Globulin 4.1 g/dL (2.4-3.5) H 12/07/16 03:55 Albumin/Globulin Ratio 0.5 (1.1-2.2) L 12/07/16 03:55 Urine Clarity Cloudy (Clear) A 12/02/16 12:27 Urine Protein >=300 mg/dL (Neg-Trace) H 12/02/16 12:27 Urine Glucose (UA) 250 mg/dL (Normal) H 12/02/16 12:27 Urine Ketones Trace mg/dL (Negative) H 12/02/16 12:27 Urine Blood Large (Negative) H 12/02/16 12:27 Urine Microscopic RBC 15-30 per hpf (0-3) H 12/02/16 12:27 Urine Microscopic WBC 5-15 per hpf (0-3) H 12/02/16 12:27 Ur Squamous Epith Cells Many per lpf (None-Few) H 12/02/16 12:27 Ur Culture Indicated? YES (NO) A 12/02/16 12:27 Stool Occult Blood Positive (Negative) A 12/03/16 14:06 Gabapentin <0.5 ug/mL (2.0-20.0) L 12/02/16 Unknown - Microbiology Findings Microbiology Findings: Microbiology, Last 48 Hours 12/04/16 09:51 Respiratory Culture - Final Left Upper Lobe Lung Normal upper respiratory tract sadi. No apparent pathogens isolated. - Clinical Findings Intake & Output: Intake & Output 12/06/16 12/07/16 12/07/16 23:59 07:59 15:59 Intake Total 100 / 100 300 / 300 60 / 60 Output Total 300 / 300 600 / 600 200 / 200 Balance -200 / -200 -300 / -300 -140 / -140 Weight 111.811 kg - Attending Attestation I examined this patient and my medical decision-making was reviewed with the INTELLIGENCE INTERN/PA/Advanced Practice Nurse/Resident Physician. I agree with the documented findings, disposition and treatment plan as described except to the extent set forth below. Patient seen and examined. Labs, radiology, chart personally reviewed. Agree with resident's history and physical, assessment, plan with following comments: PIN DRAFTER: Patient follows commands, Pulmonary: Acceptable oxygenation and ventilation Cardiovascular: stable GI: Nutrition per dietary and GI prophylaxis per routine Heme: DVT prophylaxis per routine ID: Continue antibiotics and plan to de-escalation Renal; urine out put and renal funtion reviewed Endorcine: blood glucose is monitored Lines: all lines checked and no evidence of infections Skin: skin care to prevent pressure ulcers per nursing routine care Patient is awaiting to transfer to floor.
--- NOTE | 2016-12-07 17:16 | Podiatry Consult Note ---
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 Please continue daily changes with adaptic, 4x4 and kerlex Wound vac that had been placed to right foot was removed upon patient readmission to hospital- Ok'd for wet to dry dressings to right foot surgical ulceration, please continue- change daily Please paint right foot wound with betadine today and tomorrow. Will place orders to remove single suture to center of right foot wound and then reapply wound vac on Saturday with black granufoam to 125mmhg suction. To change MWF. Patient will return to [facility] with VAC. Please consult SW for follow with VAC non weight bearing to right foot please call with any clinical signs of infection or worsening of wounds (2) Foot ulcer with fat layer exposed Current visit: No Status: Acute (3) Peripheral vascular disease due to secondary diabetes Current visit: No Status: Acute History of Present Illness HPI: Mr. Regalado is a 61 year old male who was recently readmitted to hospital with AMS, tremors and spo2 60%. Patient was discharged from [facility] on 11/28 after he was hospitalized due to osteomyelitis of the right foot. Patient is s/p incision and drainage to bone cortex for osteomyelitis #5 metatarsal right, open amputation of toe #5 with metatarsal #5 right foot, application wound VAC by Dr. Pace on 11/06/16. Wound vac was removed on readmission. No c/o pain to his feet, no fever or chills overnight. Patient is in ICU at this time but being transferred to soon. Nurse states they have been performing wet to dry dressings to RLE and applying adaptic, 4x4 and bulk dressing to LLE. She denies any clinical signs of infection at this time. Patient is resting comfortably at this time. Not in any acute distress Past Med Surg Social Fam HX - Past Medical History Medical history: arthritis, COPD, diabetes, GERD, hepatitis, hyperlipidemia, hypertension, osteoporosis, renal disease, syncope Psychiatric history: anxiety, depression - Past Surgical History Surgical History: cataract, LE stent(s), orthopedic, other - Social History Smoking Status: Current every day smoker Smokeless Tobacco Status: No Alcohol use: none Drug use: none - Family History Mother Living Status: Hx Family Cardiac Disorders: Yes (htn) Hx Family Respiratory Disorders: No Hx Family Cancer: Yes Hx Family Endocrine Disorder: Yes (dm) Father Living Status: Medications and Allergies Aspirin [Adult Low Dose Aspirin EC] 81 mg PO DAILY 12/11/15 [History] Budesonide/Formoterol 160/4.5 [Symbicort 160/4.5] 2 puff IH BIDR 12/11/15 [ History] Citalopram Hydrobromide [Celexa] 20 mg PO DAILY 12/11/15 [History] Enalapril Maleate [Vasotec] 10 mg PO QPM 12/11/15 [History] Ergocalciferol (VITAMIN D2) [Vitamin D2 (50,000 UNIT)] 50,000 unit PO MÁRQUEZ [History] Gabapentin [Neurontin] 600 mg PO TID 12/11/15 [History] Hydroxyzine HCl 50 mg PO BID 12/11/15 [History] Insulin ASPART [Novolog] 36 - 38 unit SQ TIDWM 12/11/15 [History] Omeprazole [PriLOSEC] 20 mg PO BID 12/11/15 [History] Ropinirole [Requip] 1 mg PO HS 12/11/15 [History] Rosuvastatin [Crestor] 40 mg PO DAILY 12/11/15 [History] SitaGLIPtin [Januvia] 100 mg PO DAILY 12/11/15 [History] Trazodone HCl [TraZODone] 100 mg PO HS 12/11/15 [History] Oxycodone HCl/Acetaminophen [Percocet 10-325 mg Tablet] 1 tab PO Q4H PRN #20 tablet 12/15/15 [Rx] Amlodipine [Norvasc] 5 mg PO DAILY #30 tablet 08/08/16 [Rx] Ampicillin/Sulbactam [Unasyn] 3,000 mg IVPB BID 20 Days 11/28/16 [Rx] Carvedilol [Coreg] 25 mg PO BIDWM #60 tablet 11/28/16 [Rx] Cyanocobalamin (B-12) [Vitamin B12] 1,000 mcg PO DAILY #90 tablet 11/28/16 [Rx] Ferrous Sulfate 325 mg PO BIDWM #180 tablet 11/28/16 [Rx] Insulin DETEMIR [Levemir] 20 unit SQ DAILY #5 vial 11/28/16 [Rx] Lactobacillus [Culturelle] 1 each PO BID #60 cap.sprink 11/28/16 [Rx] LevETIRAcetam [Keppra] 500 mg PO Q12HR #60 tablet 11/28/16 [Rx] Magnesium Oxide [Mag-Ox] 400 mg PO BID #60 tablet 11/28/16 [Rx] Nicotine Patch [Nicoderm] 21 mg TD DAILY #30 patch.td24 11/28/16 [Rx] Polyethylene Glycol 3350 [MiraLAX] 17 gm PO DAILY #30 powd.pack 11/28/16 [Rx] Sennosides [Senna] 8.6 mg PO DAILY #06 tablet 11/28/16 [Rx] Tamsulosin [Flomax] 0.4 mg PO DAILY #30 capsule 11/28/16 [Rx] Thiamine HCl 250 mg PO DAILY #90 tablet 11/28/16 [Rx] Albuterol Neb [Proventil Neb] 2.5 mg IH Q4HR 12/02/16 [History] Furosemide [Lasix] 40 mg PO DAILY 12/02/16 [History] Insulin LISPRO [Humalog] 2 - 12 unit SQ TIDWM 12/02/16 [History] Allergies acetaminophen [From Darvocet-N] Allergy (Verified 12/11/15 11:46) Hives ibuprofen Allergy (Verified 12/11/15 11:46) Hives propoxyphene [From Darvocet-N] Allergy (Verified 12/11/15 11:46) Hives tramadol [From Ultram] Allergy (Verified 12/11/15 11:46) Hives All Systems Reviewed: A 10-system review of systems was performed and is negative for pertinent findings except as documented above in the HPI. Physical Exam - Constitutional Vitals: Temp Pulse Resp BP Pulse Ox 97.5 F L 63 18 166/74 93 L 12/07/16 16:12 12/07/16 16:12 12/07/16 16:12 12/07/16 16:12 12/07/16 16:12 Exam: Vascular: Pedal pulses faintly palpable DP/PT , No evidence of cyanosis, pallor or rubor, Edema graded at 1+/4, Skin Temperature warm, capillary refill time is immediate to digits. Ulcer: #1 Post op ulceration to the right foot at the fifth metatarsal head lateral aspect measuring 5 cm in length x 2cm in width x 2.2 cm in depth, area of dehiscence to entirety of most of incision line, several sutures remain to distal aspect of surgical site with 50% granulation tissue, 50% yellow slough, no drainage observed. Light periwound erythema, No probe to bone, no odor, no streaking, no fluctuance. Left foot ulceration measuring 1cm x 1.3 cmx 0.1 cm. Healthy granulation tissue noted. Small amount of hyperkeratotic skin noted surrounding wound. Dry. No dry , no drainage. No odor, edema, erythema, streaking or fluctuance Sensation intact only to moderate touch Warm from toes to tibia Muscle strength 5/5 and equal bilaterally Results - Labs Result Diagrams: 12/11/16 07:22 12/11/16 07:22 Labs: Abnormal lab results WBC 4.0 K/mcL (4.3-11.1) L 12/07/16 03:55 RBC 2.83 M/mcL (4.19-5.50) L 12/07/16 03:55 Hgb 7.5 g/dL (12.9-16.9) L 12/07/16 03:55 Hct 23.8 % (37.5-50.1) L 12/07/16 03:55 MCH 26.5 pg (28.0-33.3) L 12/07/16 03:55 MCHC 31.5 g/dL (31.6-35.5) L 12/07/16 03:55 RDW 15.0 % (11.5-14.5) H 12/07/16 03:55 Plt Count 469 K/mcL (140-400) H 12/07/16 03:55 MPV 8.9 fL (9.4-12.4) L 12/07/16 03:55 ABG pO2 80 mmHg (85-104) L 12/05/16 05:12 ABG HCO3 28.5 mEQ/L (21-27) H 12/05/16 05:12 ABG Total CO2 29.9 mEq/L (20-26) H 12/05/16 05:12 ABG Base Excess 3.5 mEq/L (-2.0 to 3.0) H 12/05/16 05:12 Sodium 148 mEq/L (136-145) H 12/07/16 03:55 Creatinine 1.62 mg/dL (0.72-1.25) H 12/07/16 03:55 Est GFR ( Amer) 53 (> 60) L 12/07/16 03:55 Est GFR (Non-Af Amer) 44 (> 60) L 12/07/16 03:55 Glucose 141 mg/dL (70-99) H 12/07/16 03:55 POC Glucose 192 (58-89) H 12/07/16 11:12 Calculated Osmolality 311 (280-300) H 12/07/16 03:55 Calcium 8.2 mg/dL (8.6-10.8) L 12/07/16 03:55 B-Natriuretic Peptide 365 pg/mL (0-100) H 12/02/16 12:23 Albumin 2.1 g/dL (3.5-5.0) L 12/07/16 03:55 Globulin 4.1 g/dL (2.4-3.5) H 12/07/16 03:55 Albumin/Globulin Ratio 0.5 (1.1-2.2) L 12/07/16 03:55 Urine Clarity Cloudy (Clear) A 12/02/16 12:27 Urine Protein >=300 mg/dL (Neg-Trace) H 12/02/16 12:27 Urine Glucose (UA) 250 mg/dL (Normal) H 12/02/16 12:27 Urine Ketones Trace mg/dL (Negative) H 12/02/16 12:27 Urine Blood Large (Negative) H 12/02/16 12:27 Urine Microscopic RBC 15-30 per hpf (0-3) H 12/02/16 12:27 Urine Microscopic WBC 5-15 per hpf (0-3) H 12/02/16 12:27 Ur Squamous Epith Cells Many per lpf (None-Few) H 12/02/16 12:27 Ur Culture Indicated? YES (NO) A 12/02/16 12:27 Stool Occult Blood Positive (Negative) A 12/03/16 14:06 Gabapentin <0.5 ug/mL (2.0-20.0) L 12/02/16 Unknown H & H 12/07/16 Range/Units 03:55 Hgb 7.5 L (12.9-16.9) g/dL Hct 23.8 L (37.5-50.1) % All other labs normal. Consult Discharge Plan - Plan Referrals: Mark Coe MD [Primary Care Provider] - 12/18/16 9:45 am ( ) Isac Zuniga CNP [Advanced Practice Nurse] - 12/26/16 3:00 pm
[2016-12-07] MEDS: Insulin DETEMIR 100 UNIT/ML X5UNITS SQ SCH (21:29)
[2016-12-08] MEDS: Ampicillin/Sulbactam 3,000 MG in 0.9 % Sodium Chloride Mini Bag 100 ML IVPB SCH ×4 (00:38→17:15)
[2016-12-08] MEDS: Ipratropium/Albuterol Neb 3 ML IH SCH ×6 (03:40→23:20)
[2016-12-08] MEDS: *HR* Heparin 5,000 UNIT/ML VIAL SQ SCH ×2 (05:58→17:14)
[2016-12-08 06:29] LABS: Eosinophils # 0.3 K/mcL (0.0-0.6); Eosinophils % 8.1 %; Hematocrit 23.4 % (37.5-50.1); Hemoglobin 7.5 g/dL (12.9-16.9); Immature Granulocytes % 2.1 % (0-4); Lymphocytes # 1.2 K/mcL (0.6-4.6); Mean Corpuscular HGB Conc 32.1 g/dL (31.6-35.5); Mean Corpuscular Hemoglobin 27.3 pg (28.0-33.3); Mean Corpuscular Volume 85.1 fL (83.0-100.0); Mean Platelet Volume 8.9 fL (9.4-12.4); Monocytes # 0.6 K/mcL (0.0-1.3); Monocytes % 15.2 %; Neutrophils # 1.9 K/mcL (1.6-8.9); Platelet Count 566 K/mcL (140-400); Red Blood Count 2.75 M/mcL (4.19-5.50); Red Cell Distribution Width 15.2 % (11.5-14.5); Segmented Neutrophils % 45.6 %
[2016-12-08 06:45] LABS: Calcium 8.1 mg/dL (8.6-10.8); Potassium 3.5 mEq/L (3.5-4.5)
[2016-12-08] MEDS: Insulin LISPRO 300 UNITS/3 ML VIAL SQ SCH ×4 (08:05→21:21)
[2016-12-08] MEDS: Pantoprazole 40 MG VIAL IVP SCH (08:05)
[2016-12-08] MEDS: amLODIPine 5 MG TABLET PO SCH (08:05)
--- NOTE | 2016-12-08 15:47 | Internal Med Progress Note ---
<RedusLuis - Last Filed: 12/08/16 16:34> Date of Encounter: 12/08/16 Time of Encounter: 15:00 - Assessment and plan (1) Metabolic encephalopathy Current Visit: Yes Status: Resolved Assessment and plan: Etiology likelly multifactorial, including acute COPD exacerbation, acute pulmonary edema, acute diastolic CHF, metabolic encephalopathy with aspiration pneumonia, pulmonary edema. currently resolved. DDx also includes polypharmacy combined with DANY. COntinue to hold sedating medications. (2) Acute respiratory failure with hypoxia Current Visit: Yes Status: Acute Assessment and plan: Etiology likelly multifactorial, including COPD exacerbation, pulmonary edema, CHF, metabolic encephalopathy with aspiration pneumonia, pulmonary edema. patient was in ICU on ventilator, had metabolic encephalopathy. He had a previous hospital admission for osteomyelitis and was in the ICU then as well, suffered PEA arrest. Patient admitted from shelter, repeat episode of PEA during intubation. bronchoscopy showed normal respiratory sadi, no pathogens isolated, sputum culture negative, influenza antigens negative, blood cultures showed no growth. Patient is currently stable, on 2L nasal canula, oxygenating well. Aspiration precautions Unasyn day 3. (3) DANY (acute kidney injury) Current Visit: Yes Status: Acute Assessment and plan: DANY on CKD. CR today 1.46, continuing to improve. continue to monitor. continue to hold enalapril, gabapentin, keppra. Plan to resume lasix, ASA tomorrow. (4) Diastolic CHF Current Visit: No Status: Acute Assessment and plan: last echo from 11/17/16 showed LVEF 60-65, normal LV size and systolic function, indeterminate diastolic function, RV mildly dilated with normal function, mld MR , mild tricuspid regurg, probable mild pulmonary hypertension. patient received IV diuresis while in ICU. may be a contributing factor in patient's cardiac arrest. cardiology was consulted after patient's second episode of PEA- PEA arrests ocurred during hypoxic events and metabolic encehalopathy, they did not recommend any further cardiac testing, likely secondary to hypoxia. patient is not a good candidate for invasive evaluation. Qualifiers: Congestive heart failure chronicity: acute on chronic Qualified Code(s): I50.33 - Acute on chronic diastolic (congestive) heart failure (5) Anemia Current Visit: No Status: Acute Assessment and plan: Acute on chronic anemia. Etiology likely secondary to CKD. Hg denis 7.5, stable Continue to monitor. Qualifiers: Anemia type: other cause Other causes of anemia: other cause, not classified Qualified Code(s): D64.89 - Other specified anemias (6) Hypertension Current Visit: Yes Status: Acute Assessment and plan: continue amlodipine, hydralazine PRN, Qualifiers: Hypertension type: essential hypertension Qualified Code(s): I10 - Essential (primary) hypertension (7) Myoclonic jerking Current Visit: Yes Status: Resolved Assessment and plan: While in the ICU, patient had abnormal limb jerking movements. He was also seen on the in the ED with abnormal extremity movements. Etiology unclear. Consider possible medication side effects, polypharmacy. According to prior notes, myoclonic jerking was related to his renal status. Neurology was consulted and has evaluated the patient. EEG showed no evidence of seizure activity. Resolved at this time. (8) DVT prophylaxis Current Visit: No Status: Acute Assessment and plan: Heparin SQ - Subjective Interval history: 61 year old male evaluated at bedside. He states he had one episode of vomiting this morning. Currently not nauseous. Denies fever, chills. Reports being constipated. He denies fever/chills/dizziness/shortness of breath. Patient is not on any oxygen at home. - Constitutional Vitals: Temp Pulse Resp BP Pulse Ox 97.5 F L 65 16 190/72 98 12/08/16 07:34 12/08/16 07:34 12/08/16 12:12 12/08/16 07:34 12/08/16 12:12 General appearance: Present: A&O X 3, pleasant, no acute distress, answers questions appropriately - Head Head exam: Present: atraumatic, normocephalic - Neck Neck exam general surgery: Present: supple, trachea midline - Respiratory Respiratory exam: Present: CTAB - Cardiovascular Cardiovascular exam: Present: RRR, +S1, +S2 - GI/Abdominal GI/Abdominal exam: Present: normal bowel sounds, soft. Absent: guarding, tenderness Additional comments: some mild bruising present on lower abdomen - Extremities Exam Additional comments: right third and fifth toe amputated. Wound on right lateral side of fifth toe with subcutaneous tissue exposed. Wound on left foot. - Neurological Exam Neurological exam: Present: alert, oriented X3, no focal deficits - Psychiatric Psychiatric exam: Present: normal affect, normal mood Internal Medicine: Result - Labs CBC & Chem 7: 12/08/16 05:40 12/08/16 05:40 Labs: Short CBC 12/08/16 Range/Units 05:40 WBC 4.2 L (4.3-11.1) K/mcL Hgb 7.5 L (12.9-16.9) g/dL Hct 23.4 L (37.5-50.1) % Plt Count 566 H (140-400) K/mcL Neutrophils # 1.9 (1.6-8.9) K/mcL BMP 12/08/16 05:40 Sodium 147 H Potassium 3.5 Chloride 110 H Carbon Dioxide 25 BUN 16 Creatinine 1.46 H Glucose 144 H Calcium 8.1 L - ABG Interpretation ABG results: ABG ABG pH 7.41 pH Units (7.32-7.45) 12/05/16 05:12 ABG pCO2 45 mmHg (35-45) 12/05/16 05:12 ABG pO2 80 mmHg (85-104) L 12/05/16 05:12 ABG O2 Saturation 96 % (95-98) 12/05/16 05:12 Consult Discharge Plan - Plan Referrals: NO,PCP [Non-Partnered Physician] - <Joe Smith H - Last Filed: 12/08/16 16:38> - Constitutional Vitals: Temp Pulse Resp BP Pulse Ox 97.5 F L 65 18 190/72 97 12/08/16 07:34 12/08/16 07:34 12/08/16 15:58 12/08/16 07:34 12/08/16 15:58 Internal Medicine: Result - Labs CBC & Chem 7: 12/08/16 05:40 12/08/16 05:40 Labs: Short CBC 12/08/16 Range/Units 05:40 WBC 4.2 L (4.3-11.1) K/mcL Hgb 7.5 L (12.9-16.9) g/dL Hct 23.4 L (37.5-50.1) % Plt Count 566 H (140-400) K/mcL Neutrophils # 1.9 (1.6-8.9) K/mcL BMP 12/08/16 05:40 Sodium 147 H Potassium 3.5 Chloride 110 H Carbon Dioxide 25 BUN 16 Creatinine 1.46 H Glucose 144 H Calcium 8.1 L - ABG Interpretation ABG results: ABG ABG pH 7.41 pH Units (7.32-7.45) 12/05/16 05:12 ABG pCO2 45 mmHg (35-45) 12/05/16 05:12 ABG pO2 80 mmHg (85-104) L 12/05/16 05:12 ABG O2 Saturation 96 % (95-98) 12/05/16 05:12 - Attending Attestation Acute metabolic encephalopathy secondary to acute COPD exacerbation due to aspiration pneumonia in combination with acute pulmonary edema from acute diastolic CHF observation (left lung field ronald out) Resume Lasix in the morning, continue Unasyn day 3 Cardiac arrest/PEA I examined this patient and my medical decision-making was reviewed with the SENIOR C SOFTWARE ENGINEER/PA/Advanced Practice Nurse/Resident Physician. I agree with the documented findings, disposition and treatment plan as described except to the extent set forth below.
[2016-12-08] MEDS: Insulin DETEMIR 100 UNIT/ML X5UNITS SQ SCH (21:20)
[2016-12-08] MEDS: *HR* OxyCODONE Immed Rel 5 MG TABLET PO PRN (21:24)
[2016-12-09] MEDS: Ampicillin/Sulbactam 3,000 MG in 0.9 % Sodium Chloride Mini Bag 100 ML IVPB SCH ×5 (00:45→23:35)
[2016-12-09] MEDS: Ipratropium/Albuterol Neb 3 ML IH SCH ×7 (04:28→23:50)
[2016-12-09] MEDS: *HR* Heparin 5,000 UNIT/ML VIAL SQ SCH ×3 (06:20→17:10)
[2016-12-09] MEDS: *HR* OxyCODONE Immed Rel 5 MG TABLET PO PRN ×2 (06:22→21:52)
[2016-12-09 06:44] LABS: Basophils % 0.5 %; Eosinophils # 0.2 K/mcL (0.0-0.6); Eosinophils % 5.2 %; Hematocrit 24.6 % (37.5-50.1); Hemoglobin 7.8 g/dL (12.9-16.9); Immature Granulocytes % 3.4 % (0-4); Lymphocytes # 1.2 K/mcL (0.6-4.6); Lymphocytes % 30.5 %; Mean Corpuscular HGB Conc 31.7 g/dL (31.6-35.5); Mean Corpuscular Hemoglobin 26.8 pg (28.0-33.3); Mean Corpuscular Volume 84.5 fL (83.0-100.0); Mean Platelet Volume 8.2 fL (9.4-12.4); Monocytes # 0.6 K/mcL (0.0-1.3); Monocytes % 15.7 %; Neutrophils # 1.8 K/mcL (1.6-8.9); Platelet Count 588 K/mcL (140-400); Red Blood Count 2.91 M/mcL (4.19-5.50); Red Cell Distribution Width 14.7 % (11.5-14.5); Segmented Neutrophils % 44.7 %
[2016-12-09 06:59] LABS: Calcium 7.9 mg/dL (8.6-10.8); Potassium 3.4 mEq/L (3.5-4.5)
[2016-12-09] MEDS: amLODIPine 5 MG TABLET PO SCH (09:16)
[2016-12-09] MEDS: Aspirin Enteric Coated 81 MG Tablet PO SCH (09:16)
[2016-12-09] MEDS: Furosemide 40 MG TABLET PO SCH (09:17)
[2016-12-09] MEDS: Pantoprazole 40 MG VIAL IVP SCH (09:17)
[2016-12-09] MEDS: Insulin LISPRO 300 UNITS/3 ML VIAL SQ SCH ×4 (09:17→21:47)
--- NOTE | 2016-12-09 10:10 | Internal Med Progress Note ---
<YeyoLuis thrasher - Last Filed: 12/09/16 10:06> Date of Encounter: 12/09/16 Time of Encounter: 10:00 - Assessment and plan (1) Metabolic encephalopathy Current Visit: Yes Status: Resolved Assessment and plan: Etiology likelly multifactorial, including acute COPD exacerbation, acute pulmonary edema, acute diastolic CHF, metabolic encephalopathy with aspiration pneumonia, pulmonary edema. currently resolved. DDx also includes polypharmacy combined with DANY. COntinue to hold sedating medications. Continue with antibiotic coverage. (2) Acute respiratory failure with hypoxia Current Visit: Yes Status: Acute Assessment and plan: Etiology likelly multifactorial, including COPD exacerbation, pulmonary edema, CHF, metabolic encephalopathy with aspiration pneumonia, pulmonary edema. patient was in ICU on ventilator, had metabolic encephalopathy. He had a previous hospital admission for osteomyelitis and was in the ICU then as well, suffered PEA arrest. [facility] from [facility], repeat episode of PEA during intubation. bronchoscopy showed normal respiratory sadi, no pathogens isolated, sputum culture negative, influenza antigens negative, blood cultures showed no growth. Patient is currently stable, on 2L nasal canula, oxygenating well. Aspiration precautions Unasyn day 4 (3) DANY (acute kidney injury) Current Visit: Yes Status: Acute Assessment and plan: DANY on CKD. CR today 1.5, stable continue to monitor. continue to hold enalapril, gabapentin, keppra. resumed home dose of lasix, ASA. (4) Diastolic CHF Current Visit: No Status: Acute Assessment and plan: last echo from 11/17/16 showed LVEF 60-65, normal LV size and systolic function, indeterminate diastolic function, RV mildly dilated with normal function, mld MR , mild tricuspid regurg, probable mild pulmonary hypertension. patient received IV diuresis while in ICU. may be a contributing factor in patient's cardiac arrest. cardiology was consulted after patient's second episode of PEA- PEA arrests ocurred during hypoxic events and metabolic encehalopathy, they did not recommend any further cardiac testing, likely secondary to hypoxia. patient is not a good candidate for invasive evaluation. Plan: continue with fluid restriction. Qualifiers: Congestive heart failure chronicity: acute on chronic Qualified Code(s): I50.33 - Acute on chronic diastolic (congestive) heart failure (5) Anemia Current Visit: No Status: Acute Assessment and plan: Acute on chronic anemia. Etiology likely secondary to CKD. stool occult blood positive on 12/03/16 Hg today 7.8, stable Continue to monitor. Will call GI tomorrow morning for scope. Qualifiers: Anemia type: other cause Other causes of anemia: other cause, not classified Qualified Code(s): D64.89 - Other specified anemias (6) Hypertension Current Visit: Yes Status: Acute Assessment and plan: continue amlodipine, hydralazine PRN, Qualifiers: Hypertension type: essential hypertension Qualified Code(s): I10 - Essential (primary) hypertension (7) Myoclonic jerking Current Visit: Yes Status: Resolved Assessment and plan: While in the ICU, patient had abnormal limb jerking movements. He was also seen on the in the ED with abnormal extremity movements. Etiology unclear. Consider possible medication side effects, polypharmacy. According to prior notes, myoclonic jerking was related to his renal status. Neurology was consulted and has evaluated the patient. EEG showed no evidence of seizure activity. Resolved at this time. 12/09: patient is experiencing jerking movements when he gets up out of bed. But does not have these movements at rest. (8) DVT prophylaxis Current Visit: No Status: Acute Assessment and plan: Heparin SQ - Subjective Interval history: 61 year old male evaluated at bedside. He states that he had one episode of vomiting this morning. Other than that, he feels "fine." He denies nausea, diarrhea, fever, chills. Patient denies any pain. - Constitutional Vitals: Temp Pulse Resp BP Pulse Ox 98.0 F 71 16 176/68 97 12/09/16 07:36 12/09/16 07:36 12/09/16 07:36 12/09/16 07:36 12/09/16 07:36 General appearance: Present: A&O X 3, pleasant, no acute distress, answers questions appropriately - Head Head exam: Present: atraumatic, normocephalic - Neck Neck exam general surgery: Present: supple, trachea midline - Respiratory Respiratory exam: Present: CTAB - Cardiovascular Cardiovascular exam: Present: RRR, +S1, +S2 - GI/Abdominal GI/Abdominal exam: Present: normal bowel sounds, soft. Absent: distended, tenderness - Extremities Exam Additional comments: patient has ulcer on left lateral foot. patient's right third and fifth toe are amputated. wound on right lateral foot is deep, some soft tissue exposed. - Neurological Exam Neurological exam: Present: alert, oriented X3, no focal deficits Internal Medicine: Result - Labs CBC & Chem 7: 12/09/16 06:34 12/09/16 06:34 Labs: Short CBC 12/09/16 Range/Units 06:34 WBC 4.1 L (4.3-11.1) K/mcL Hgb 7.8 L (12.9-16.9) g/dL Hct 24.6 L (37.5-50.1) % Plt Count 588 H (140-400) K/mcL Neutrophils # 1.8 (1.6-8.9) K/mcL BMP 12/09/16 06:34 Sodium 146 H Potassium 3.4 L Chloride 108 Carbon Dioxide 26 BUN 13 Creatinine 1.50 H Glucose 156 H Calcium 7.9 L - ABG Interpretation ABG results: ABG ABG pH 7.41 pH Units (7.32-7.45) 12/05/16 05:12 ABG pCO2 45 mmHg (35-45) 12/05/16 05:12 ABG pO2 80 mmHg (85-104) L 12/05/16 05:12 ABG O2 Saturation 96 % (95-98) 12/05/16 05:12 Consult Discharge Plan - Plan Referrals: NO,PCP [Non-Partnered Physician] - <Joe Smith H - Last Filed: 12/09/16 14:22> - Constitutional Vitals: Temp Pulse Resp BP Pulse Ox 97.9 F 64 16 171/62 97 12/09/16 11:00 12/09/16 11:00 12/09/16 11:00 12/09/16 11:00 12/09/16 11:00 Internal Medicine: Result - Labs CBC & Chem 7: 12/09/16 06:34 12/09/16 06:34 Labs: Short CBC 12/09/16 Range/Units 06:34 WBC 4.1 L (4.3-11.1) K/mcL Hgb 7.8 L (12.9-16.9) g/dL Hct 24.6 L (37.5-50.1) % Plt Count 588 H (140-400) K/mcL Neutrophils # 1.8 (1.6-8.9) K/mcL BMP 12/09/16 06:34 Sodium 146 H Potassium 3.4 L Chloride 108 Carbon Dioxide 26 BUN 13 Creatinine 1.50 H Glucose 156 H Calcium 7.9 L - ABG Interpretation ABG results: ABG ABG pH 7.41 pH Units (7.32-7.45) 12/05/16 05:12 ABG pCO2 45 mmHg (35-45) 12/05/16 05:12 ABG pO2 80 mmHg (85-104) L 12/05/16 05:12 ABG O2 Saturation 96 % (95-98) 12/05/16 05:12 - Attending Attestation Acute metabolic encephalopathy secondary to acute COPD exacerbation due to aspiration pneumonia in combination with acute pulmonary edema from acute diastolic CHF observation (left lung field ronald out) Unasyn day 4 I examined this patient and my medical decision-making was reviewed with the FUEL EFFICIENT AUTOMOBILE DESIGNER/PA/Advanced Practice Nurse/Resident Physician. I agree with the documented findings, disposition and treatment plan as described except to the extent set forth below.
[2016-12-09] MEDS: Ondansetron 4 MG/2 ML VIAL IV PRN ×2 (14:49→21:29)
[2016-12-09] MEDS: Insulin DETEMIR 100 UNIT/ML X5UNITS SQ SCH (21:49)
[2016-12-10] MEDS: Ipratropium/Albuterol Neb 3 ML IH SCH ×5 (03:27→20:15)
[2016-12-10] MEDS: *HR* Heparin 5,000 UNIT/ML VIAL SQ SCH ×2 (05:23→17:40)
[2016-12-10] MEDS: Ampicillin/Sulbactam 3,000 MG in 0.9 % Sodium Chloride Mini Bag 100 ML IVPB SCH ×3 (05:23→17:40)
[2016-12-10] MEDS: Ondansetron 4 MG/2 ML VIAL IV PRN ×2 (06:29→10:42)
[2016-12-10 07:46] LABS: Basophils # 0.1 K/mcL (0.0-0.2); Basophils % 1.1 %; Eosinophils # 0.2 K/mcL (0.0-0.6); Eosinophils % 4.1 %; Hematocrit 24.1 % (37.5-50.1); Hemoglobin 7.8 g/dL (12.9-16.9); Immature Granulocytes % 3.5 % (0-4); Lymphocytes # 1.5 K/mcL (0.6-4.6); Lymphocytes % 31.9 %; Mean Corpuscular HGB Conc 32.4 g/dL (31.6-35.5); Mean Corpuscular Hemoglobin 27.3 pg (28.0-33.3); Mean Corpuscular Volume 84.3 fL (83.0-100.0); Mean Platelet Volume 8.9 fL (9.4-12.4); Monocytes # 0.7 K/mcL (0.0-1.3); Monocytes % 15.3 %; Platelet Count 651 K/mcL (140-400); Red Blood Count 2.86 M/mcL (4.19-5.50); Red Cell Distribution Width 15.1 % (11.5-14.5); Segmented Neutrophils % 44.1 %
[2016-12-10] MEDS: Furosemide 40 MG TABLET PO SCH (08:02)
[2016-12-10] MEDS: amLODIPine 5 MG TABLET PO SCH (08:02)
[2016-12-10] MEDS: Aspirin Enteric Coated 81 MG Tablet PO SCH (08:02)
[2016-12-10] MEDS: Pantoprazole 40 MG VIAL IVP SCH (08:04)
[2016-12-10 08:14] LABS: Calcium 7.7 mg/dL (8.6-10.8); Potassium 3.1 mEq/L (3.5-4.5)
[2016-12-10] MEDS: Insulin LISPRO 300 UNITS/3 ML VIAL SQ SCH ×4 (08:42→21:21)
--- NOTE | 2016-12-10 09:27 | Internal Med Progress Note ---
<YeyoLuis thrasher - Last Filed: 12/10/16 09:25> Date of Encounter: 12/10/16 Time of Encounter: 09:00 - Assessment and plan (1) Metabolic encephalopathy Current Visit: Yes Status: Resolved Assessment and plan: Etiology likelly multifactorial, including acute COPD exacerbation, acute pulmonary edema, acute diastolic CHF, metabolic encephalopathy with aspiration pneumonia, pulmonary edema. currently resolved. DDx also includes polypharmacy combined with DANY. COntinue to hold sedating medications. Continue with unasyn, day 5 (2) Acute respiratory failure with hypoxia Current Visit: Yes Status: Acute Assessment and plan: Etiology likelly multifactorial, including COPD exacerbation, pulmonary edema, CHF, metabolic encephalopathy with aspiration pneumonia, pulmonary edema. patient was in ICU on ventilator, had metabolic encephalopathy. He had a previous hospital admission for osteomyelitis and was in the ICU then as well, suffered PEA arrest. [facility], repeat episode of PEA during intubation. bronchoscopy showed normal respiratory sadi, no pathogens isolated, sputum culture negative, influenza antigens negative, blood cultures showed no growth. Patient is currently stable, on 2L nasal canula, oxygenating well. Aspiration precautions Plan: Unasyn day 5 (3) DANY (acute kidney injury) Current Visit: Yes Status: Acute Assessment and plan: DANY on CKD. CR today 1.55, stable continue to monitor. continue to hold enalapril, gabapentin, keppra. resumed home dose of lasix, ASA. (4) Diastolic CHF Current Visit: No Status: Acute Assessment and plan: last echo from 11/17/16 showed LVEF 60-65, normal LV size and systolic function, indeterminate diastolic function, RV mildly dilated with normal function, mld MR , mild tricuspid regurg, probable mild pulmonary hypertension. patient received IV diuresis while in ICU. may be a contributing factor in patient's cardiac arrest. cardiology was consulted after patient's second episode of PEA- PEA arrests ocurred during hypoxic events and metabolic encehalopathy, they did not recommend any further cardiac testing, likely secondary to hypoxia. patient is not a good candidate for invasive evaluation. Plan: continue with fluid restriction. Qualifiers: Congestive heart failure chronicity: acute on chronic Qualified Code(s): I50.33 - Acute on chronic diastolic (congestive) heart failure (5) Anemia Current Visit: No Status: Acute Assessment and plan: Acute on chronic anemia. Etiology likely secondary to CKD. stool occult blood positive on 12/03/16 Hg today 7.8, stable Continue to monitor. 12/10 consulted GI. they will evaluate for possible EGD/scope. Qualifiers: Anemia type: other cause Other causes of anemia: other cause, not classified Qualified Code(s): D64.89 - Other specified anemias (6) Hypertension Current Visit: Yes Status: Acute Assessment and plan: continue amlodipine, hydralazine PRN, Qualifiers: Hypertension type: essential hypertension Qualified Code(s): I10 - Essential (primary) hypertension (7) Myoclonic jerking Current Visit: Yes Status: Resolved Assessment and plan: While in the ICU, patient had abnormal limb jerking movements. He was also seen on the in the ED with abnormal extremity movements. Etiology unclear. Consider possible medication side effects, polypharmacy. According to prior notes, myoclonic jerking was related to his renal status. Neurology was consulted and has evaluated the patient. EEG showed no evidence of seizure activity. Resolved at this time. 12/09: patient is experiencing jerking movements when he gets up out of bed. But does not have these movements at rest. 12/10: patient still continues to have jerking movements when he tries to sit up in bed. (8) DVT prophylaxis Current Visit: No Status: Acute Assessment and plan: Heparin SQ - Subjective Interval history: 61 year old male evaluated at bedside. He had another episode of vomiting this morning. CUrrently he does not feel nauseous. - Constitutional Vitals: Temp Pulse Resp BP Pulse Ox 98.2 F 62 18 177/75 96 12/10/16 07:39 12/10/16 07:39 12/10/16 07:46 12/10/16 07:39 12/10/16 07:46 General appearance: Present: A&O X 3, pleasant, no acute distress, answers questions appropriately - Head Head exam: Present: atraumatic, normocephalic - Neck Neck exam general surgery: Present: supple, trachea midline - Respiratory Respiratory exam: Present: CTAB - Cardiovascular Cardiovascular exam: Present: RRR, +S1, +S2 - GI/Abdominal GI/Abdominal exam: Present: distended, normal bowel sounds, soft. Absent: tenderness - Extremities Exam Extremities exam: Absent: cyanotic, pedal edema Additional comments: wound vac present on right foot. right third and fifth toe amputated. left wound present on lateral side of foot. - Back Exam Additional comments: tattoo present on right side of back - Neurological Exam Neurological exam: Present: alert, oriented X3 Additional comments: patient has jerking of his limbs when he is trying to sit up in bed or move. - Skin Additional comments: tattoos present throughout body. Internal Medicine: Result - Labs CBC & Chem 7: 12/10/16 06:46 12/10/16 06:46 Labs: Short CBC 12/10/16 Range/Units 06:46 WBC 4.6 (4.3-11.1) K/mcL Hgb 7.8 L (12.9-16.9) g/dL Hct 24.1 L (37.5-50.1) % Plt Count 651 H (140-400) K/mcL Neutrophils # 2.0 (1.6-8.9) K/mcL BMP 12/10/16 06:46 Sodium 144 Potassium 3.1 L Chloride 106 Carbon Dioxide 27 BUN 13 Creatinine 1.55 H Glucose 160 H Calcium 7.7 L - ABG Interpretation ABG results: ABG ABG pH 7.41 pH Units (7.32-7.45) 12/05/16 05:12 ABG pCO2 45 mmHg (35-45) 12/05/16 05:12 ABG pO2 80 mmHg (85-104) L 12/05/16 05:12 ABG O2 Saturation 96 % (95-98) 12/05/16 05:12 Consult Discharge Plan - Plan Referrals: NO,PCP [Non-Partnered Physician] - <Joe Smith H - Last Filed: 12/10/16 14:24> - Constitutional Vitals: Temp Pulse Resp BP Pulse Ox 97.7 F 62 20 168/72 95 12/10/16 11:32 12/10/16 11:32 12/10/16 11:32 12/10/16 11:32 12/10/16 11:32 Internal Medicine: Result - Labs CBC & Chem 7: 12/10/16 06:46 12/10/16 06:46 Labs: Short CBC 12/10/16 Range/Units 06:46 WBC 4.6 (4.3-11.1) K/mcL Hgb 7.8 L (12.9-16.9) g/dL Hct 24.1 L (37.5-50.1) % Plt Count 651 H (140-400) K/mcL Neutrophils # 2.0 (1.6-8.9) K/mcL BMP 12/10/16 06:46 Sodium 144 Potassium 3.1 L Chloride 106 Carbon Dioxide 27 BUN 13 Creatinine 1.55 H Glucose 160 H Calcium 7.7 L - ABG Interpretation ABG results: ABG ABG pH 7.41 pH Units (7.32-7.45) 12/05/16 05:12 ABG pCO2 45 mmHg (35-45) 12/05/16 05:12 ABG pO2 80 mmHg (85-104) L 12/05/16 05:12 ABG O2 Saturation 96 % (95-98) 12/05/16 05:12 - Attending Attestation Apparently completed unasyn 7 days today, will discontinue Unasyn. GI to perform EGD and colonoscopy tomorrow, start dell swanson I examined this patient and my medical decision-making was reviewed with the CONTINUOUS LOFT OPERATOR/PA/Advanced Practice Nurse/Resident Physician. I agree with the documented findings, disposition and treatment plan as described except to the extent set forth below.
--- NOTE | 2016-12-10 13:49 | Gastroenterology Consult Note ---
<Romeo Lu Andrew - Last Filed: 12/10/16 13:47> Date of Encounter: 12/10/16 Time of Encounter: 10:50 - Assessment and plan (1) Anemia Current Visit: No Status: Acute Assessment and plan: Hemoglobin 6.9 on admission and this morning hemoglobin 7.8. Fecal occult blood test was positive on 12/03. Continue to monitor CBC and transfuse PRBC as needed. Plan for EGD and colonoscopy tomorrow.Clear liquid diet today, no red or purple. NPO at midnight. If unable tolerate NuLytely please use MiraLAX prep. If not clear by 6 AM, give 2 tap water enemas. Qualifiers: Anemia type: other cause Other causes of anemia: other cause, not classified Qualified Code(s): D64.89 - Other specified anemias (2) Acute respiratory failure with hypoxia Current Visit: Yes Status: Acute Assessment and plan: Management per primary team. (3) PEA (Pulseless electrical activity) Current Visit: Yes Status: Acute - Time Spent With Patient Total time spent is greater than 50% in coordination of care (as documented) at patient's floor/unit and/or counseling patient: GI History of Present Illness - Data of Consult Patient: new to practice Consult date: 12/10/16 Requesting Physician: Joe Smith - Consult Narrative Reason for consult: GI bleed History of present illness: Mr. Regalado is a 61 year old male with PMHx of CKD, COPD, heart failure, chronic anemia, HTN, HLD, DM who presented from an F with respiratory distress. He was intubated and required ventilator suppor in ICU. He developed PEA during intubation at required 2-3 minutes of CPR. his is the second time he had cardiac arrest with PEA requiring ACLS in the last month. he also developed metabolic encephalopathy, which has since resolved. His Hgb on admission was 6.9 and this AM is 7.8. FOBT was positive on 12/03. He denies any hematemesis, melena, or hematochezia. He did report some nause and vomiting. Procedures: NSAIDs: ASA Anticoagulation: None Past Med Surg Social Fam HX - Past Medical History Medical history: arthritis, COPD, diabetes, GERD, hepatitis, hyperlipidemia, hypertension, osteoporosis, renal disease, syncope Psychiatric history: anxiety, depression - Past Surgical History Surgical History: cataract, LE stent(s), orthopedic, other - Social History Smoking Status: Current every day smoker Smokeless Tobacco Status: No Alcohol use: none Drug use: none - Family History Mother Living Status: Hx Family Cardiac Disorders: Yes (htn) Hx Family Respiratory Disorders: No Hx Family Cancer: Yes Hx Family Endocrine Disorder: Yes (dm) Father Living Status: - Gastrointestinal Gastrointestinal: Present: as per HPI - Constitutional Constitutional: as per HPI - EENT Eyes: as per HPI Ears: Present: as per HPI Nose, mouth and throat: Present: as per HPI - Cardiovascular Cardiovascular ROS: Present: as per HPI - Respiratory Respiratory IM: Present: as per HPI - Genitourinary Genitourinary: Absent: change in color, Urinary frequency - Neurological ROS Neurological GI: Present: as per HPI - Hematologic/Lymphatic Hematologic/Lymphatic pediatric: Present: as per HPI - Musculoskeletal Musculoskeletal ROS GI: Present: as per HPI - Integumentary Integumentary GI: Present: as per HPI - Psychiatric ROS Psychiatric GI: Present: as per HPI - Endocrine Endocrine IM: Present: as per HPI - Constitutional Vitals: Temp Pulse Resp BP Pulse Ox 97.7 F 62 20 168/72 95 12/10/16 11:32 12/10/16 11:32 12/10/16 11:32 12/10/16 11:32 12/10/16 11:32 General appearance: Present: cooperative, A&O X 3, no acute distress, answers questions appropriately - Head Head exam: Present: atraumatic, normocephalic - Eye Eye exam: Present: normal appearance, sclera anicteric - ENT ENT exam: Present: mucous membranes moist - Neck Neck exam general surgery: Present: normal inspection, trachea midline - Respiratory Respiratory exam: Present: CTAB. Absent: rales, rhonchi - Cardiovascular Cardiovascular exam: Present: RRR, +S1, +S2 - GI/Abdominal GI/Abdominal exam: Present: soft, no peritoneal signs. Absent: distended, firm , guarding, tenderness - Rectal Rectal exam: Present: deferred - Extremities Exam Extremities exam: Present: warm Additional comments: wound vac on right foot with third and fifth toe amputated. - Neurological Exam Neurological exam: Present: no focal deficits - Psychiatric Psychiatric exam: Present: normal affect, normal mood - Skin Skin exam: Present: dry, intact, normal color, warm Results - Labs CBC & Chem 7: 12/10/16 06:46 12/10/16 06:46 Labs: Last Result Calcium 7.7 mg/dL (8.6-10.8) L 12/10/16 06:46 Troponin I 0.03 ng/mL (0-0.03) 12/02/16 12:23 Stool Occult Blood Positive (Negative) A 12/03/16 14:06 Entire Visit Hgb 7.8 g/dL (12.9-16.9) L 12/10/16 06:46 Hct 24.1 % (37.5-50.1) L 12/10/16 06:46 Total Bilirubin 0.4 mg/dL (0.2-1.2) 12/07/16 03:55 AST 12 Units/L (5-34) 12/07/16 03:55 ALT 14 Units/L (0-55) 12/07/16 03:55 - ABG ABG results: ABG ABG pH 7.41 pH Units (7.32-7.45) 12/05/16 05:12 ABG pCO2 45 mmHg (35-45) 12/05/16 05:12 ABG pO2 80 mmHg (85-104) L 12/05/16 05:12 ABG O2 Saturation 96 % (95-98) 12/05/16 05:12 Consult Discharge Plan - Plan Referrals: NO,PCP [Non-Partnered Physician] - <Des Christy - Last Filed: 12/10/16 20:32> Time of Encounter: 18:00 - Time Spent With Patient Total time spent is greater than 50% in coordination of care (as documented) at patient's floor/unit and/or counseling patient: GI History of Present Illness - Data of Consult Requesting Physician: Joe Smith - Consult Narrative History of present illness: Mr. Regalado is a 61 year old male - Constitutional Vitals: Temp Pulse Resp BP Pulse Ox 97.9 F 64 20 174/72 94 L 12/10/16 19:27 12/10/16 19:27 12/10/16 20:16 12/10/16 19:27 12/10/16 20:16 Results - Labs CBC & Chem 7: 12/10/16 06:46 12/10/16 06:46 Labs: Last Result Calcium 7.7 mg/dL (8.6-10.8) L 12/10/16 06:46 Troponin I 0.03 ng/mL (0-0.03) 12/02/16 12:23 Stool Occult Blood Positive (Negative) A 12/03/16 14:06 Entire Visit Hgb 7.8 g/dL (12.9-16.9) L 12/10/16 06:46 Hct 24.1 % (37.5-50.1) L 12/10/16 06:46 Total Bilirubin 0.4 mg/dL (0.2-1.2) 12/07/16 03:55 AST 12 Units/L (5-34) 12/07/16 03:55 ALT 14 Units/L (0-55) 12/07/16 03:55 - ABG ABG results: ABG ABG pH 7.41 pH Units (7.32-7.45) 12/05/16 05:12 ABG pCO2 45 mmHg (35-45) 12/05/16 05:12 ABG pO2 80 mmHg (85-104) L 12/05/16 05:12 ABG O2 Saturation 96 % (95-98) 12/05/16 05:12 - Attending Attestation I examined this patient and my medical decision-making was reviewed with the PRESS PULLER/PA/Advanced Practice Nurse/Resident Physician. I agree with the documented findings, disposition and treatment plan as described except to the extent set forth below.
--- NOTE | 2016-12-10 15:40 | Podiatry Progress Note ---
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 Continue wound vac to right foot. Ulceration to left foot appears to be healing, no evidence of bacterial infection. Continue wound care dressing changes as ordered. Continue cam boot to RLE. Patient will f/u with Dr. Pace in wound care with in one week of discharge from the hospital. (2) Osteomyelitis of foot, right, acute Current Visit: No Status: Acute Subjective Principal diagnosis: Acute respiratory failure, PEA arrest Interval history: Patient is s/p incision and drainage to bone cortex for osteomyelitis #5 metatarsal right, open amputation of toe #5 with metatarsal #5 right foot, application wound VAC by Dr. Pace on 11/06/16. Patient is sitting up in bed with wound vac intact to right foot and dressing intact to left foot. Wound vac was applied to right foot by nurse yesterday. Patient states he is prepping for a colonoscopy tomorrow. No c/o fever, chills overnight. Objective - Vital Signs Vital Signs: Vital Signs Temp Pulse Resp BP Pulse Ox 12/10/16 11:32 97.7 F 62 20 168/72 95 12/10/16 07:46 18 96 12/10/16 07:39 98.2 F 62 12 177/75 94 L 12/10/16 03:52 97.9 F 64 18 171/57 94 L 12/10/16 00:36 98.1 F 60 17 159/64 93 L 12/09/16 23:50 20 93 L 12/09/16 20:23 98 F 62 18 169/69 92 L Intake and Output 12/09/16 12/10/16 12/10/16 23:59 07:59 15:59 Intake Total 940 / 940 200 / 200 220 / 220 Output Total 500 / 500 520 / 520 775 / 775 Balance 440 / 440 -320 / -320 -555 / -555 Intake: IV Fluids 100 / 100 200 / 200 100 / 100 Unasyn 3,000 MG In 0.9 % 100 / 100 200 / 200 100 / 100 Sodium Chloride (Mini-Bag +) 100 ML @ 200 mls/hr IVPB Q6H [facility] Rx#: [id number] Oral 840 / 840 120 / 120 Output: Urine 500 / 500 520 / 520 775 / 775 Wound Drainage 0 / 0 Right Foot 0 / 0 Other: Meal NPO Stool Size Small Stool Consistency loose Stool Color Brown Blood Glucose* 135 190 234 - Exam Exam: General appearance: alert awake oriented X 3. Calm and pleasant, no acute distress.. Vascular: Pedal pulses +1/4 DP/PT , No evidence of cyanosis, pallor or rubor, Edema graded at 1+/4, Skin Temperature warm, No calf pain with manual compression. capillary refill time is immediate to digits. Wound: Wound vac intact to right foot with black sponge connected to 125 mmhg continuous suction, no drainage observed to chamber, surrounding skin is pink, warm and dry. No fluctuance, no streaking, no ascending cellulitis. Ulceration to sub #5 metatarsal head left foot is superficial, measuring 1.2 cm in length x 1 cm in width, base of wound is pink, scant amount of serous drainage observed to dressing, no periwound erythema, no streaking, no pus, no odor, no tunneling, no sinus tracts, - Lab Result Diagrams: 12/10/16 06:46 12/10/16 06:46 Labs: Abnormal lab results RBC 2.86 M/mcL (4.19-5.50) L 12/10/16 06:46 Hgb 7.8 g/dL (12.9-16.9) L 12/10/16 06:46 Hct 24.1 % (37.5-50.1) L 12/10/16 06:46 MCH 27.3 pg (28.0-33.3) L 12/10/16 06:46 RDW 15.1 % (11.5-14.5) H 12/10/16 06:46 Plt Count 651 K/mcL (140-400) H 12/10/16 06:46 MPV 8.9 fL (9.4-12.4) L 12/10/16 06:46 ABG pO2 80 mmHg (85-104) L 12/05/16 05:12 ABG HCO3 28.5 mEQ/L (21-27) H 12/05/16 05:12 ABG Total CO2 29.9 mEq/L (20-26) H 12/05/16 05:12 ABG Base Excess 3.5 mEq/L (-2.0 to 3.0) H 12/05/16 05:12 Potassium 3.1 mEq/L (3.5-4.5) L 12/10/16 06:46 Creatinine 1.55 mg/dL (0.72-1.25) H 12/10/16 06:46 Est GFR ( Amer) 56 (> 60) L 12/10/16 06:46 Est GFR (Non-Af Amer) 46 (> 60) L 12/10/16 06:46 Glucose 160 mg/dL (70-99) H 12/10/16 06:46 POC Glucose 234 (58-89) H 12/10/16 11:41 Calculated Osmolality 302 (280-300) H 12/10/16 06:46 Calcium 7.7 mg/dL (8.6-10.8) L 12/10/16 06:46 B-Natriuretic Peptide 365 pg/mL (0-100) H 12/02/16 12:23 Albumin 2.1 g/dL (3.5-5.0) L 12/07/16 03:55 Globulin 4.1 g/dL (2.4-3.5) H 12/07/16 03:55 Albumin/Globulin Ratio 0.5 (1.1-2.2) L 12/07/16 03:55 Urine Clarity Cloudy (Clear) A 12/02/16 12:27 Urine Protein >=300 mg/dL (Neg-Trace) H 12/02/16 12:27 Urine Glucose (UA) 250 mg/dL (Normal) H 12/02/16 12:27 Urine Ketones Trace mg/dL (Negative) H 12/02/16 12:27 Urine Blood Large (Negative) H 12/02/16 12:27 Urine Microscopic RBC 15-30 per hpf (0-3) H 12/02/16 12:27 Urine Microscopic WBC 5-15 per hpf (0-3) H 12/02/16 12:27 Ur Squamous Epith Cells Many per lpf (None-Few) H 12/02/16 12:27 Ur Culture Indicated? YES (NO) A 12/02/16 12:27 Stool Occult Blood Positive (Negative) A 12/03/16 14:06 Gabapentin <0.5 ug/mL (2.0-20.0) L 12/02/16 Unknown Consult Discharge Plan - Plan Referrals: NO,PCP [Non-Partnered Physician] -
[2016-12-10] MEDS ORDERED: SODIUM CHLORIDE/NAHCO3/KCL/PEG 4,000 ML SOLN.RECON PO ONE (18:00)
[2016-12-10] MEDS: Insulin DETEMIR 100 UNIT/ML X5UNITS SQ SCH (21:21)
[2016-12-11] MEDS: Ampicillin/Sulbactam 3,000 MG in 0.9 % Sodium Chloride Mini Bag 100 ML IVPB SCH (00:13)
[2016-12-11] MEDS: Ipratropium/Albuterol Neb 3 ML IH SCH ×6 (00:20→20:59)
[2016-12-11] MEDS: *HR* Heparin 5,000 UNIT/ML VIAL SQ SCH ×2 (05:29→22:44)
[2016-12-11] MEDS: Insulin LISPRO 300 UNITS/3 ML VIAL SQ SCH ×4 (07:48→22:45)
[2016-12-11 08:07] LABS: Calcium 7.9 mg/dL (8.6-10.8); Potassium 3.3 mEq/L (3.5-4.5)
--- NOTE | 2016-12-11 08:08 | Internal Med Progress Note ---
<Mike Tenorio - Last Filed: 12/11/16 14:50> Date of Encounter: 12/11/16 Time of Encounter: 08:08 - Assessment and plan (1) Metabolic encephalopathy Current Visit: Yes Status: Resolved Assessment and plan: 12/11/16 Stable 12/10/16 Etiology likelly multifactorial, including acute COPD exacerbation, acute pulmonary edema, acute diastolic CHF, metabolic encephalopathy with aspiration pneumonia, pulmonary edema. currently resolved. DDx also includes polypharmacy combined with DANY. COntinue to hold sedating medications. Continue with unasyn, day 5 (2) Acute respiratory failure with hypoxia Current Visit: Yes Status: Acute Assessment and plan: 12/11/16 Significant clinical improvement Continue antibiotics 12/10/16 Etiology likelly multifactorial, including COPD exacerbation, pulmonary edema, CHF, metabolic encephalopathy with aspiration pneumonia, pulmonary edema. patient was in ICU on ventilator, had metabolic encephalopathy. He had a previous hospital admission for osteomyelitis and was in the ICU then as well, suffered PEA arrest. [facility], repeat episode of PEA during intubation. bronchoscopy showed normal respiratory sadi, no pathogens isolated, sputum culture negative, influenza antigens negative, blood cultures showed no growth. Patient is currently stable, on 2L nasal canula, oxygenating well. Aspiration precautions Plan: Unasyn day 5 (3) DANY (acute kidney injury) Current Visit: Yes Status: Acute Assessment and plan: 12/11/16 Serum creatinine is near patient's baseline Continue to monitor 12/10/16 DANY on CKD. CR today 1.55, stable continue to monitor. continue to hold enalapril, gabapentin, keppra. resumed home dose of lasix, ASA. (4) Diastolic CHF Current Visit: No Status: Acute Assessment and plan: 12/11/16 Stabilized following diuresis/fluid restriction 12/10/16 last echo from 11/17/16 showed LVEF 60-65, normal LV size and systolic function, indeterminate diastolic function, RV mildly dilated with normal function, mld MR , mild tricuspid regurg, probable mild pulmonary hypertension. patient received IV diuresis while in ICU. may be a contributing factor in patient's cardiac arrest. cardiology was consulted after patient's second episode of PEA- PEA arrests ocurred during hypoxic events and metabolic encehalopathy, they did not recommend any further cardiac testing, likely secondary to hypoxia. patient is not a good candidate for invasive evaluation. Plan: continue with fluid restriction. Qualifiers: Congestive heart failure chronicity: acute on chronic Qualified Code(s): I50.33 - Acute on chronic diastolic (congestive) heart failure (5) Anemia Current Visit: No Status: Acute Assessment and plan: 12/11/16 Hgb stable Positive Hemoccult Colonoscopy today revealed nonbleeding polyp but was otherwise normal EGD today was normal 12/10/16 Acute on chronic anemia. Etiology likely secondary to CKD. stool occult blood positive on 12/03/16 Hg today 7.8, stable Continue to monitor. consulted GI. they will evaluate for possible EGD/scope. Qualifiers: Anemia type: other cause Other causes of anemia: other cause, not classified Qualified Code(s): D64.89 - Other specified anemias (6) Hypertension Current Visit: Yes Status: Acute Assessment and plan: Elevated systolic readings continue amlodipine, hydralazine PRN systolic readings >180, Qualifiers: Hypertension type: essential hypertension Qualified Code(s): I10 - Essential (primary) hypertension (7) Myoclonic jerking Current Visit: Yes Status: Resolved Assessment and plan: 12/10/16 While in the ICU, patient had abnormal limb jerking movements. He was also seen on the in the ED with abnormal extremity movements. Etiology unclear. Consider possible medication side effects, polypharmacy. According to prior notes, myoclonic jerking was related to his renal status. Neurology was consulted and has evaluated the patient. EEG showed no evidence of seizure activity. Resolved at this time. 3: patient is experiencing jerking movements when he gets up out of bed. But does not have these movements at rest. 12/10: patient still continues to have jerking movements when he tries to sit up in bed. (8) DVT prophylaxis Current Visit: No Status: Acute Assessment and plan: Heparin SQ - Subjective Interval history: Patient was seen and examined at bedside this morning. He was sitting up in bed , alert and in no acute distress. He states he is not currently having any dyspnea, chest pain, abdominal pain, or other new complaints - Constitutional Vitals: Temp Pulse Resp BP Pulse Ox 97.8 F 91 16 189/82 91 L 12/11/16 07:43 12/11/16 07:43 12/11/16 07:56 12/11/16 07:43 12/11/16 07:56 General appearance: Present: A&O X 3, pleasant, no acute distress, answers questions appropriately - Head Head exam: Present: atraumatic, normocephalic - Eye Eye exam: Present: PERRL, conjuntiva pink, sclera anicteric Pupils: Present: PERRL - Neck Neck exam general surgery: Present: supple, trachea midline. Absent: lymphadenopathy - Respiratory Respiratory exam: Present: CTAB. Absent: accessory muscle use, rales, rhonchi, wheezes - Cardiovascular Cardiovascular exam: Present: RRR, +S1, +S2. Absent: diastolic murmur, gallop, rubs, systolic murmur - GI/Abdominal GI/Abdominal exam: Present: normal bowel sounds, soft, no peritoneal signs. Absent: distended, tenderness - Extremities Exam Extremities exam: Present: warm, radial pulses palpable and symetrical. Absent : calf tenderness, cyanotic, pedal edema - Neurological Exam Neurological exam: Present: CN II-XII intact, oriented X3, no focal deficits. Absent: pronater drift, facial droop, speech deficit - Skin Skin exam: Present: dry, intact Internal Medicine: Result - Labs CBC & Chem 7: 12/11/16 07:22 12/11/16 07:22 Labs: BMP 12/10/16 12/11/16 06:46 07:22 Sodium 144 147 H Potassium 3.1 L 3.3 L Chloride 106 108 Carbon Dioxide 27 25 BUN 13 11 Creatinine 1.55 H 1.65 H Glucose 160 H 123 H Calcium 7.7 L 7.9 L - ABG Interpretation ABG results: ABG ABG pH 7.41 pH Units (7.32-7.45) 12/05/16 05:12 ABG pCO2 45 mmHg (35-45) 12/05/16 05:12 ABG pO2 80 mmHg (85-104) L 12/05/16 05:12 ABG O2 Saturation 96 % (95-98) 12/05/16 05:12 Consult Discharge Plan - Plan Referrals: Mark Coe MD [Primary Care Provider] - 12/18/16 9:45 am ( ) Isac Zuniga SHADE CUTTER [Advanced Practice Nurse] - 12/26/16 3:00 pm <John Arango P - Last Filed: 12/11/16 17:50> - Constitutional Vitals: Temp Pulse Resp BP Pulse Ox 97.9 F 92 17 178/90 92 L 12/11/16 16:06 12/11/16 16:06 12/11/16 16:06 12/11/16 16:06 12/11/16 16:06 Internal Medicine: Result - Labs CBC & Chem 7: 12/11/16 07:22 12/11/16 07:22 Labs: Short CBC 12/11/16 Range/Units 07:22 WBC 4.2 L (4.3-11.1) K/mcL Hgb 8.2 L (12.9-16.9) g/dL Hct 25.4 L (37.5-50.1) % Plt Count 662 H (140-400) K/mcL Neutrophils # 1.9 (1.6-8.9) K/mcL BMP 12/11/16 07:22 Sodium 147 H Potassium 3.3 L Chloride 108 Carbon Dioxide 25 BUN 11 Creatinine 1.65 H Glucose 123 H Calcium 7.9 L - ABG Interpretation ABG results: ABG ABG pH 7.41 pH Units (7.32-7.45) 12/05/16 05:12 ABG pCO2 45 mmHg (35-45) 12/05/16 05:12 ABG pO2 80 mmHg (85-104) L 12/05/16 05:12 ABG O2 Saturation 96 % (95-98) 12/05/16 05:12 - Attending Attestation I examined this patient and my medical decision-making was reviewed with the CERTIFIED TECHNICIAN SPECIALIST/PA/Advanced Practice Nurse/Resident Physician. I agree with the documented findings, disposition and treatment plan as described except to the extent set forth below.
[2016-12-11 08:17] LABS: Basophils % 0.7 %; Eosinophils # 0.2 K/mcL (0.0-0.6); Eosinophils % 3.6 %; Hematocrit 25.4 % (37.5-50.1); Hemoglobin 8.2 g/dL (12.9-16.9); Immature Granulocytes % 3.6 % (0-4); Lymphocytes # 1.4 K/mcL (0.6-4.6); Lymphocytes % 32.3 %; Mean Corpuscular HGB Conc 32.3 g/dL (31.6-35.5); Mean Corpuscular Hemoglobin 27.2 pg (28.0-33.3); Mean Corpuscular Volume 84.1 fL (83.0-100.0); Mean Platelet Volume 8.6 fL (9.4-12.4); Monocytes # 0.6 K/mcL (0.0-1.3); Monocytes % 14.5 %; Neutrophils # 1.9 K/mcL (1.6-8.9); Platelet Count 662 K/mcL (140-400); Red Blood Count 3.02 M/mcL (4.19-5.50); Red Cell Distribution Width 15.1 % (11.5-14.5); Segmented Neutrophils % 45.3 %
[2016-12-11] MEDS ORDERED: *HR* Propofol 200 MG/20 ML VIAL IVP ONE (09:56)
[2016-12-11] MEDS ORDERED: Lidocaine -MPF 2% 5 ML VIAL INFILT ONE (09:56)
--- NOTE | 2016-12-11 13:31 | Anesthesia Evaluation PreOp ---
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: Other (peripheral neuropathy) Other Medical History: Renal, Diabetes Type II, GERD, Other (Reactive Thrombocytosis) Anesthesia History: Past Anesthesia (Foot sx) Alcohol Use: none Drug use: none Medications and Allergies Aspirin [Adult Low Dose Aspirin EC] 81 mg PO DAILY 12/11/15 [History] Budesonide/Formoterol 160/4.5 [Symbicort 160/4.5] 2 puff IH BIDR 12/11/15 [ History] Citalopram Hydrobromide [Celexa] 20 mg PO DAILY 12/11/15 [History] Enalapril Maleate [Vasotec] 10 mg PO QPM 12/11/15 [History] Ergocalciferol (VITAMIN D2) [Vitamin D2 (50,000 UNIT)] 50,000 unit PO MÁRQUEZ [History] Gabapentin [Neurontin] 600 mg PO TID 12/11/15 [History] Hydroxyzine HCl 50 mg PO BID 12/11/15 [History] Insulin ASPART [Novolog] 36 - 38 unit SQ TIDWM 12/11/15 [History] Omeprazole [PriLOSEC] 20 mg PO BID 12/11/15 [History] Ropinirole [Requip] 1 mg PO HS 12/11/15 [History] Rosuvastatin [Crestor] 40 mg PO DAILY 12/11/15 [History] SitaGLIPtin [Januvia] 100 mg PO DAILY 12/11/15 [History] Trazodone HCl [TraZODone] 100 mg PO HS 12/11/15 [History] Oxycodone HCl/Acetaminophen [Percocet 10-325 mg Tablet] 1 tab PO Q4H PRN #20 tablet 12/15/15 [Rx] Amlodipine [Norvasc] 5 mg PO DAILY #30 tablet 08/08/16 [Rx] Ampicillin/Sulbactam [Unasyn] 3,000 mg IVPB BID 20 Days 11/28/16 [Rx] Carvedilol [Coreg] 25 mg PO BIDWM #60 tablet 11/28/16 [Rx] Cyanocobalamin (B-12) [Vitamin B12] 1,000 mcg PO DAILY #90 tablet 11/28/16 [Rx] Ferrous Sulfate 325 mg PO BIDWM #180 tablet 11/28/16 [Rx] Insulin DETEMIR [Levemir] 20 unit SQ DAILY #5 vial 11/28/16 [Rx] Lactobacillus [Culturelle] 1 each PO BID #60 cap.sprink 11/28/16 [Rx] LevETIRAcetam [Keppra] 500 mg PO Q12HR #60 tablet 11/28/16 [Rx] Magnesium Oxide [Mag-Ox] 400 mg PO BID #60 tablet 11/28/16 [Rx] Nicotine Patch [Nicoderm] 21 mg TD DAILY #30 patch.td24 11/28/16 [Rx] Polyethylene Glycol 3350 [MiraLAX] 17 gm PO DAILY #30 powd.pack 11/28/16 [Rx] Sennosides [Senna] 8.6 mg PO DAILY #06 tablet 11/28/16 [Rx] Tamsulosin [Flomax] 0.4 mg PO DAILY #30 capsule 11/28/16 [Rx] Thiamine HCl 250 mg PO DAILY #90 tablet 11/28/16 [Rx] Albuterol Neb [Proventil Neb] 2.5 mg IH Q4HR 12/02/16 [History] Furosemide [Lasix] 40 mg PO DAILY 12/02/16 [History] Insulin LISPRO [Humalog] 2 - 12 unit SQ TIDWM 12/02/16 [History] Allergies acetaminophen [From Darvocet-N] Allergy (Verified 12/11/15 11:46) Hives ibuprofen Allergy (Verified 12/11/15 11:46) Hives propoxyphene [From Darvocet-N] Allergy (Verified 12/11/15 11:46) Hives tramadol [From Ultram] Allergy (Verified 12/11/15 11:46) Hives - Meds/Allergy Pre-op Review Medications Reviewed: Yes Allergies Reviewed: Yes Beta Blockers on Current Med List: Yes If Beta Blockers taken, Date/Time (Last Dose taken): 17:40 12/10/2016 Anesthesia Results - Labs 12/11/16 07:22 12/11/16 07:22 - Imaging EKG: image reviewed (SR) Anesthesia Exam O2 Sat Weight 101.3 kg O2 Sat by Pulse Oximetry 94 O2 Sat by Pulse Oximetry 91 O2 Sat by Pulse Oximetry 91 O2 Sat by Pulse Oximetry 94 O2 Sat by Pulse Oximetry 92 O2 Sat by Pulse Oximetry 96 O2 Sat by Pulse Oximetry 92 O2 Sat by Pulse Oximetry 94 O2 Sat by Pulse Oximetry 96 O2 Sat by Pulse Oximetry 93 O2 Sat by Pulse Oximetry 94 Vital Signs Temp Pulse Resp BP Pulse Ox 0 F L 77 30 114/67 97 12/02/16 12:16 12/02/16 12:16 12/02/16 12:16 12/02/16 12:16 12/02/16 12:16 Vital Signs/O2 Sat, Most Current Temp Pulse Resp BP Pulse Ox 98.5 F 77 18 189/73 94 L 12/11/16 11:51 12/11/16 11:51 12/11/16 11:51 12/11/16 11:51 12/11/16 11:51 Height: 6' Weight: 223# - HEENT Pupil (Motor): Pupils equal, EOMI Mallampati: III Teeth: Edentulous Oral Opening: Greater than 3 - CORONARY CARE UNIT NURSE LOC: Oriented CORONARY CARE UNIT NURSE Motor: Normal RUE, Normal LUE, Normal RLE, Normal LLE, Normal Face CORONARY CARE UNIT NURSE Sensory: Normal: RUE, LUE, RLE, LLE, Face - Cardiac Rhythm: Regular Murmur: None JVD: No Carotid Bruit: No - Pulmonary Breath Sounds: bilateral Clear Respiratory Effort: Symmetrical Anesthesia Assess/Plan ASA Score: 3 Modified Marii Scale for Level of Consciousness: Cooperative, oriented, and tranquil Anesthetic Plan: MAC Autologous Blood: Yes Monitoring Plan: Standard Monitors Recovery Plan: Other
[2016-12-11] MEDS ORDERED: 0.9 % Sodium Chloride 1,000 ML IVC SCH ×2 (13:45→14:30)
--- NOTE | 2016-12-11 14:31 | Anesthesia Evaluation Post Op ---
Date of Encounter: 12/11/16 Time of Encounter: 14:31 - Vital Signs Vital Signs: vss - Lungs Lungs: Clear Ascult./Percussion - Airway Airway: Non-obstructed - Cardiovascular Baseline Rhythm - Mental Status Mental Status: Alert & Oriented, Answers Appropriately - Pain Pain Scale used: Young (Faces) - Nausea Vomiting Nausea Vomiting: Not Present - Discharge PostOp Status: Transfer Patient to floor
[2016-12-11] MEDS: amLODIPine 5 MG TABLET PO SCH (16:33)
[2016-12-11] MEDS: Aspirin Enteric Coated 81 MG Tablet PO SCH (16:33)
[2016-12-11] MEDS: Furosemide 40 MG TABLET PO SCH (16:34)
[2016-12-11] MEDS: Pantoprazole 40 MG VIAL IVP SCH (16:34)
[2016-12-11] MEDS: Insulin DETEMIR 100 UNIT/ML X5UNITS SQ SCH (22:44)
[2016-12-11] MEDS: *HR* OxyCODONE Immed Rel 5 MG TABLET PO PRN (23:09)
[2016-12-12] MEDS: Ipratropium/Albuterol Neb 3 ML IH SCH ×7 (00:30→23:28)
[2016-12-12] MEDS: *HR* Heparin 5,000 UNIT/ML VIAL SQ SCH ×2 (04:58→22:08)
--- NOTE | 2016-12-12 06:41 | Discharge Summary ---
<CobyMike Romeo - Last Filed: 12/12/16 07:10> Date of Encounter: 12/12/16 Time of Encounter: 06:41 - Discharge Diagnosis (1) Metabolic encephalopathy Priority: Primary Status: Resolved (2) Acute respiratory failure with hypoxia Priority: Primary Status: Acute (3) DANY (acute kidney injury) Priority: Secondary Status: Acute (4) Diastolic CHF Priority: Secondary Status: Acute Qualifiers: Congestive heart failure chronicity: acute on chronic Qualified Code(s): I50.33 - Acute on chronic diastolic (congestive) heart failure (5) Anemia Priority: Secondary Status: Acute Qualifiers: Anemia type: other cause Other causes of anemia: other cause, not classified Qualified Code(s): D64.89 - Other specified anemias (6) Hypertension Priority: Secondary Status: Acute Qualifiers: Hypertension type: essential hypertension Qualified Code(s): I10 - Essential (primary) hypertension (7) Myoclonic jerking Priority: Secondary Status: Resolved (8) DVT prophylaxis Priority: Secondary Status: Acute - Discharge Medications Prescriptions: Oxycodone HCl/Acetaminophen [Percocet 10-325 mg Tablet] 1 each PO Q4HR PRN #30 tablet PRN Reason: Pain Amoxicillin/Clavulanate [Augmentin] 875 mg PO BIDWM #8 tablet Home Medications: Aspirin [Adult Low Dose Aspirin EC] 81 mg PO DAILY 12/11/15 [History] Budesonide/Formoterol 160/4.5 [Symbicort 160/4.5] 2 puff IH BIDR 12/11/15 [ History] Citalopram Hydrobromide [Celexa] 20 mg PO DAILY 12/11/15 [History] Enalapril Maleate [Vasotec] 10 mg PO QPM 12/11/15 [History] Ergocalciferol (VITAMIN D2) [Vitamin D2 (50,000 UNIT)] 50,000 unit PO MÁRQUEZ [History] Gabapentin [Neurontin] 600 mg PO TID 12/11/15 [History] Hydroxyzine HCl 50 mg PO BID 12/11/15 [History] Insulin ASPART [Novolog] 36 - 38 unit SQ TIDWM 12/11/15 [History] Omeprazole [PriLOSEC] 20 mg PO BID 12/11/15 [History] Ropinirole [Requip] 1 mg PO HS 12/11/15 [History] Rosuvastatin [Crestor] 40 mg PO DAILY 12/11/15 [History] SitaGLIPtin [Januvia] 100 mg PO DAILY 12/11/15 [History] Trazodone HCl [TraZODone] 100 mg PO HS 12/11/15 [History] Amlodipine [Norvasc] 5 mg PO DAILY #30 tablet 08/08/16 [Rx] Carvedilol [Coreg] 25 mg PO BIDWM #60 tablet 11/28/16 [Rx] Cyanocobalamin (B-12) [Vitamin B12] 1,000 mcg PO DAILY #90 tablet 11/28/16 [Rx] Ferrous Sulfate 325 mg PO BIDWM #180 tablet 11/28/16 [Rx] Insulin DETEMIR [Levemir] 20 unit SQ DAILY #5 vial 11/28/16 [Rx] Lactobacillus [Culturelle] 1 each PO BID #60 cap.sprink 11/28/16 [Rx] LevETIRAcetam [Keppra] 500 mg PO Q12HR #60 tablet 11/28/16 [Rx] Magnesium Oxide [Mag-Ox] 400 mg PO BID #60 tablet 11/28/16 [Rx] Nicotine Patch [Nicoderm] 21 mg TD DAILY #30 patch.td24 11/28/16 [Rx] Polyethylene Glycol 3350 [MiraLAX] 17 gm PO DAILY #30 powd.pack 11/28/16 [Rx] Sennosides [Senna] 8.6 mg PO DAILY #06 tablet 11/28/16 [Rx] Tamsulosin [Flomax] 0.4 mg PO DAILY #30 capsule 11/28/16 [Rx] Thiamine HCl 250 mg PO DAILY #90 tablet 11/28/16 [Rx] Albuterol Neb [Proventil Neb] 2.5 mg IH Q4HR 12/02/16 [History] Furosemide [Lasix] 40 mg PO DAILY 12/02/16 [History] Insulin LISPRO [Humalog] 2 - 12 unit SQ TIDWM 12/02/16 [History] Amoxicillin/Clavulanate [Augmentin] 875 mg PO BIDWM #8 tablet 12/12/16 [Rx] Oxycodone HCl/Acetaminophen [Percocet 10-325 mg Tablet] 1 each PO Q4HR PRN #30 tablet 12/12/16 [Rx] Allergies/Adverse Reactions: Allergies acetaminophen [From Darvocet-N] Allergy (Verified 12/11/15 11:46) Hives ibuprofen Allergy (Verified 12/11/15 11:46) Hives propoxyphene [From Darvocet-N] Allergy (Verified 12/11/15 11:46) Hives tramadol [From Ultram] Allergy (Verified 12/11/15 11:46) Hives Date of admission: 12/02/16 16:50 Primary care physician: Mark Coe MD Consults: 12/02/16 17:09 Consult to Pulmonology [CONS] Routine Consulting Provider: [facility] Reason for Consult: respiratory failure, PNA Time Notified: 17:09 Call Completed: Yes 12/02/16 17:10 Consult to Neurology [CONS] Routine Consulting Provider: [facility] Reason for Consult: myoclonic jerks Time Notified: 17:11 Call Completed: Yes 12/02/16 20:02 Consult to Wound Care [CONS] Routine Reason for Consult: wound care Call Completed: No 12/03/16 11:41 Consult to Referral Specialist [CONS] Routine Reason for SW Consult: came from [facility] 12/03/16 13:46 consult to guide delegate [Consult to Nutrition] [CONS] Routine Comment: Consulting Provider: NUTRITION Reason for Dietary Consult: Supplemental Nutrition TF Start and Manage 12/03/16 14:19 Consult to Interpret Exam [CONS] Routine Consulting Provider: Chuyita Bello Consult to Interpret Exam: Interpret EEG 12/05/16 10:33 Consult to Physical Therapy [CONS] Routine Comment: Evaluate, develop and implement POC 12/07/16 10:48 Consult to Podiatry [CONS] Routine Consulting Provider: [facility] Reason for Consult: Dr. Pace's patient, osteomyelitis, last seen by podiatry on 11/26 with last admission. Call Completed: Yes 12/10/16 08:16 Consult to Gastroenterology [CONS] Stat Consulting Provider: [facility] Reason for Consult: positive stool occult blood Call Completed: Yes 12/11/16 16:39 Consult to Occupational Therapy [CONS] Routine Comment: Evaluate, develop and implement POC Discharging clinician: Mike Tenorio Anticipated date of discharge: 12/12/16 - Patient Status Disposition: Transfer SNF Condition: Fair Functional capacity at discharge: uses cane/walker (Y) Overall status at discharge: patient is progressing back to baseline - Discharge Instructions Follow Up With: Mark Coe MD [Primary Care Provider] - 12/18/16 9:45 am ( ) Isac Zuniga CNP [Advanced Practice Nurse] - 12/26/16 3:00 pm - Diet and Activity Activity: as per physical therapy Diet: diabetic diet (Is) Hospital course: Mr. Regalado is a 61 year old male with past medical history of type 2 diabetes, hypertension, CAD, osteomyelitis from diabetic foot ulcer, recent cardiac arrest. He had a recent hospitalization for osteomyelitis during which time he had cardiac arrest and spent 1 week in the ICU. Upon discharge she was sent to a residential where he experienced dyspnea and returned back here to the emergency department where he required intubation. He developed pulseless electrical activity and required 2-3 minutes of CPR. He received antibiotics for aspiration pneumonia and treatment for COPD exacerbation, CHF exacerbation + acute pulmonary edema. He did well here, was extubated 12/05. He also underwent bronchoscopy with mucous plug removal. Bronchoscopy revealed normal sadi, sputum culture was negative. Flu antigens and blood culture were also negative. His creatinine remained stable. Cardiology saw the patient during his hospitalization and recommended no further testing. He is not deemed a good candidate for invasive evaluation due to his AK I and anemia. He had a positive stool guaiac and underwent upper/lower endoscopy which were grossly unremarkable other than removal of a colonic polyp. He will be discharged back to long-term facility in stable condition - Time Spent with Patient Total time spent providing and/or coordinating discharge services: Greater than 30 minutes - Constitutional Vitals: Temp Pulse Resp BP Pulse Ox 98.3 F 67 20 167/65 96 12/12/16 04:46 12/12/16 04:46 12/12/16 04:46 12/12/16 04:46 12/12/16 04:46 General appearance: Present: A&O X 3, pleasant, no acute distress, answers questions appropriately - Head Head exam: Present: atraumatic, normocephalic - Eye Eye exam: Present: PERRL, conjuntiva pink, sclera anicteric Pupils: Present: PERRL - Neck Neck exam general surgery: Present: supple, trachea midline. Absent: lymphadenopathy - Respiratory Respiratory exam: Present: CTAB. Absent: accessory muscle use, rales, rhonchi, wheezes - Cardiovascular Cardiovascular exam: Present: RRR, +S1, +S2. Absent: diastolic murmur, gallop, rubs, systolic murmur - GI/Abdominal GI/Abdominal exam: Present: normal bowel sounds, soft, no peritoneal signs. Absent: distended, tenderness - Extremities Exam Extremities exam: Present: warm, radial pulses palpable and symetrical. Absent : calf tenderness, cyanotic, pedal edema - Neurological Exam Neurological exam: Present: CN II-XII intact, oriented X3, no focal deficits. Absent: pronater drift, facial droop, speech deficit - Skin Skin exam: Present: dry, intact <Conchita,John P - Last Filed: 12/12/16 18:35> Date of admission: 12/02/16 16:50 Primary care physician: Mark Coe MD Consults: 12/02/16 17:09 Consult to Pulmonology [CONS] Routine Consulting Provider: [facility] Reason for Consult: respiratory failure, PNA Time Notified: 17:09 Call Completed: Yes 12/02/16 17:10 Consult to Neurology [CONS] Routine Consulting Provider: [facility] Reason for Consult: myoclonic jerks Time Notified: 17:11 Call Completed: Yes 12/02/16 20:02 Consult to Wound Care [CONS] Routine Reason for Consult: wound care Call Completed: No 12/03/16 11:41 Consult to Referral Specialist [CONS] Routine Reason for SW Consult: came from [facility] 12/03/16 13:46 consult to guide delegate [Consult to Nutrition] [CONS] Routine Comment: Consulting Provider: NUTRITION Reason for Dietary Consult: Supplemental Nutrition TF Start and Manage 12/03/16 14:19 Consult to Interpret Exam [CONS] Routine Consulting Provider: Chuyita Bello Consult to Interpret Exam: Interpret EEG 12/05/16 10:33 Consult to Physical Therapy [CONS] Routine Comment: Evaluate, develop and implement POC 12/07/16 10:48 Consult to Podiatry [CONS] Routine Consulting Provider: Pod[facility] Reason for Consult: Dr. Pace's patient, osteomyelitis, last seen by podiatry on 11/26 with last admission. Call Completed: Yes 12/10/16 08:16 Consult to Gastroenterology [CONS] Stat Consulting Provider: [facility] Reason for Consult: positive stool occult blood Call Completed: Yes 12/11/16 16:39 Consult to Occupational Therapy [CONS] Routine Comment: Evaluate, develop and implement POC Hospital course: Mr. Regalado is a 61 year old male - Time Spent with Patient Total time spent providing and/or coordinating discharge services: - Constitutional Vitals: Temp Pulse Resp BP Pulse Ox 98.4 F 61 18 186/82 95 12/12/16 16:04 12/12/16 16:04 12/12/16 16:42 12/12/16 16:04 12/12/16 16:42 - Attending Attestation I examined this patient and my medical decision-making was reviewed with the CHECK WRITER/PA/Advanced Practice Nurse/Resident Physician. I agree with the documented findings, disposition and treatment plan as described except to the extent set forth below. pending insurance approval
[2016-12-12 07:11] LABS: BUN/Creatinine Ratio 6 (6-26); Blood Urea Nitrogen 8 mg/dL (8-26); Calcium 7.6 mg/dL (8.6-10.8); Carbon Dioxide 27 mEq/L (19-29); Chloride 107 mEq/L (98-109); Glucose 135 mg/dL (70-99); Osmolality,Calculated 300 (280-300); Potassium 2.8 mEq/L (3.5-4.5); Sodium 145 mEq/L (136-145); eGFR For African Americans > 60 (> 60); eGFR For Non-African Americans 52 (> 60)
[2016-12-12 07:20] LABS: Basophils % 0.6 %; Eosinophils # 0.2 K/mcL (0.0-0.6); Eosinophils % 3.1 %; Hematocrit 24.4 % (37.5-50.1); Immature Granulocytes % 2.9 % (0-4); Lymphocytes # 1.7 K/mcL (0.6-4.6); Lymphocytes % 36.2 %; Mean Corpuscular HGB Conc 32.8 g/dL (31.6-35.5); Mean Corpuscular Hemoglobin 27.5 pg (28.0-33.3); Mean Corpuscular Volume 83.8 fL (83.0-100.0); Mean Platelet Volume 8.9 fL (9.4-12.4); Monocytes # 0.7 K/mcL (0.0-1.3); Monocytes % 13.8 %; Neutrophils # 2.1 K/mcL (1.6-8.9); Platelet Count 598 K/mcL (140-400); Red Blood Count 2.91 M/mcL (4.19-5.50); Red Cell Distribution Width 15.2 % (11.5-14.5); Segmented Neutrophils % 43.4 %
--- NOTE | 2016-12-12 07:51 | Physician Discharge Referral ---
<CobyMikechristine Walters - Last Filed: 12/12/16 07:49> [facility] Referral Info Transfer To: SNF Provider in Charge after Transfer: PCP Institutional Level of Care: Skilled - Diagnosis (1) Metabolic encephalopathy Priority: Primary Status: Resolved (2) Acute respiratory failure with hypoxia Priority: Primary Status: Acute (3) DANY (acute kidney injury) Priority: Secondary Status: Acute (4) Diastolic CHF Priority: Secondary Status: Acute (5) Anemia Priority: Secondary Status: Acute (6) Hypertension Priority: Secondary Status: Acute (7) Myoclonic jerking Priority: Secondary Status: Resolved (8) DVT prophylaxis Priority: Secondary Status: Acute - Transfer Medications Prescriptions: Oxycodone HCl/Acetaminophen [Percocet 10-325 mg Tablet] 1 each PO Q4HR PRN #30 tablet PRN Reason: Pain Amoxicillin/Clavulanate [Augmentin] 875 mg PO BIDWM #8 tablet Home Medications: Aspirin [Adult Low Dose Aspirin EC] 81 mg PO DAILY 12/11/15 [History] Budesonide/Formoterol 160/4.5 [Symbicort 160/4.5] 2 puff IH BIDR 12/11/15 [ History] Citalopram Hydrobromide [Celexa] 20 mg PO DAILY 12/11/15 [History] Enalapril Maleate [Vasotec] 10 mg PO QPM 12/11/15 [History] Ergocalciferol (VITAMIN D2) [Vitamin D2 (50,000 UNIT)] 50,000 unit PO MÁRQUEZ [History] Gabapentin [Neurontin] 600 mg PO TID 12/11/15 [History] Hydroxyzine HCl 50 mg PO BID 12/11/15 [History] Insulin ASPART [Novolog] 36 - 38 unit SQ TIDWM 12/11/15 [History] Omeprazole [PriLOSEC] 20 mg PO BID 12/11/15 [History] Ropinirole [Requip] 1 mg PO HS 12/11/15 [History] Rosuvastatin [Crestor] 40 mg PO DAILY 12/11/15 [History] SitaGLIPtin [Januvia] 100 mg PO DAILY 12/11/15 [History] Trazodone HCl [TraZODone] 100 mg PO HS 12/11/15 [History] Amlodipine [Norvasc] 5 mg PO DAILY #30 tablet 08/08/16 [Rx] Carvedilol [Coreg] 25 mg PO BIDWM #60 tablet 11/28/16 [Rx] Cyanocobalamin (B-12) [Vitamin B12] 1,000 mcg PO DAILY #90 tablet 11/28/16 [Rx] Ferrous Sulfate 325 mg PO BIDWM #180 tablet 11/28/16 [Rx] Insulin DETEMIR [Levemir] 20 unit SQ DAILY #5 vial 11/28/16 [Rx] Lactobacillus [Culturelle] 1 each PO BID #60 cap.sprink 11/28/16 [Rx] LevETIRAcetam [Keppra] 500 mg PO Q12HR #60 tablet 11/28/16 [Rx] Magnesium Oxide [Mag-Ox] 400 mg PO BID #60 tablet 11/28/16 [Rx] Nicotine Patch [Nicoderm] 21 mg TD DAILY #30 patch.td24 11/28/16 [Rx] Polyethylene Glycol 3350 [MiraLAX] 17 gm PO DAILY #30 powd.pack 11/28/16 [Rx] Sennosides [Senna] 8.6 mg PO DAILY #06 tablet 11/28/16 [Rx] Tamsulosin [Flomax] 0.4 mg PO DAILY #30 capsule 11/28/16 [Rx] Thiamine HCl 250 mg PO DAILY #90 tablet 11/28/16 [Rx] Albuterol Neb [Proventil Neb] 2.5 mg IH Q4HR 12/02/16 [History] Furosemide [Lasix] 40 mg PO DAILY 12/02/16 [History] Insulin LISPRO [Humalog] 2 - 12 unit SQ TIDWM 12/02/16 [History] Amoxicillin/Clavulanate [Augmentin] 875 mg PO BIDWM #8 tablet 12/12/16 [Rx] Oxycodone HCl/Acetaminophen [Percocet 10-325 mg Tablet] 1 each PO Q4HR PRN #30 tablet 12/12/16 [Rx] Allergies/Adverse Reactions: Allergies acetaminophen [From Darvocet-N] Allergy (Verified 12/11/15 11:46) Hives ibuprofen Allergy (Verified 12/11/15 11:46) Hives propoxyphene [From Darvocet-N] Allergy (Verified 12/11/15 11:46) Hives tramadol [From Ultram] Allergy (Verified 12/11/15 11:46) Hives - Respiratory Orders Smoking Cessation: Smoking cessation has been advised. For more information, call the [employer] Tobacco Quit Line at 9-709-DPAN-NOW. - Mobility Orders Ambulate - Rehabiliation Orders Rehab Potential: Fair Rehab Orders: Evaluation for Physical Therapy, Evaluation for Occupational Therapy - Diet Orders Cardiac CERTIFICATION: I certify that the transfer of the above named patient to an Extended Care Facility is necessary for the continuing treatment of the diagnosis listed. The above information is true and accurate reflection of patient's current condition. Confidential - Redisclosure prohibited without a patient's written consent. <John Arango P - Last Filed: 12/12/16 18:36> - Respiratory Orders Smoking Cessation: Smoking cessation has been advised. For more information, call the [employer] Tobacco Quit Line at 6-175-OWBC-NOW. CERTIFICATION: I certify that the transfer of the above named patient to an Extended Care Facility is necessary for the continuing treatment of the diagnosis listed. The above information is true and accurate reflection of patient's current condition. Confidential - Redisclosure prohibited without a patient's written consent.
[2016-12-12] MEDS: amLODIPine 5 MG TABLET PO SCH (08:54)
[2016-12-12] MEDS: Furosemide 40 MG TABLET PO SCH (08:54)
[2016-12-12] MEDS: Aspirin Enteric Coated 81 MG Tablet PO SCH (08:54)
[2016-12-12] MEDS: Insulin LISPRO 300 UNITS/3 ML VIAL SQ SCH ×4 (08:54→22:55)
[2016-12-12] MEDS: Pantoprazole 40 MG VIAL IVP SCH (08:56)
[2016-12-12] MEDS: Insulin DETEMIR 100 UNIT/ML X5UNITS SQ SCH (22:07)
[2016-12-12] MEDS: *HR* OxyCODONE Immed Rel 5 MG TABLET PO PRN (22:21)
[2016-12-13] MEDS: Ipratropium/Albuterol Neb 3 ML IH SCH ×8 (03:34→23:28)
[2016-12-13] MEDS: *HR* Heparin 5,000 UNIT/ML VIAL SQ SCH ×2 (06:06→17:16)
--- NOTE | 2016-12-13 06:46 | Event Note ---
<Mike Tenorio - Last Filed: 12/13/16 08:16> Date of Encounter: 12/13/16 Time of Encounter: 06:46 Patient seen and examined at bedside this morning. He is in no acute distress, denies chest pain, shortness of breath, abdominal pain or any other new issues. <John Arango - Last Filed: 12/13/16 17:41> I examined this patient and my medical decision-making was reviewed with the DOUBLE HEAD MACHINE OPERATOR/PA/Advanced Practice Nurse/Resident Physician. I agree with the documented findings, disposition and treatment plan as described except to the extent set forth below.
--- NOTE | 2016-12-13 08:19 | Internal Med Progress Note ---
<Mike Tenorio - Last Filed: 12/13/16 11:13> Date of Encounter: 12/13/16 Time of Encounter: 08:18 - Assessment and plan (1) Metabolic encephalopathy Current Visit: Yes Status: Resolved Assessment and plan: Patient continues to have stable mental status 12/11/16 Stable 12/10/16 Etiology likelly multifactorial, including acute COPD exacerbation, acute pulmonary edema, acute diastolic CHF, metabolic encephalopathy with aspiration pneumonia, pulmonary edema. currently resolved. DDx also includes polypharmacy combined with DANY. COntinue to hold sedating medications. Continue with unasyn, day 5 (2) Acute respiratory failure with hypoxia Current Visit: Yes Status: Acute Assessment and plan: Stable 12/11/16 Significant clinical improvement Continue antibiotics 12/10/16 Etiology likelly multifactorial, including COPD exacerbation, pulmonary edema, CHF, metabolic encephalopathy with aspiration pneumonia, pulmonary edema. patient was in ICU on ventilator, had metabolic encephalopathy. He had a previous hospital admission for osteomyelitis and was in the ICU then as well, suffered PEA arrest. Patient admitted from shelter, repeat episode of PEA during intubation. bronchoscopy showed normal respiratory sadi, no pathogens isolated, sputum culture negative, influenza antigens negative, blood cultures showed no growth. Patient is currently stable, on 2L nasal canula, oxygenating well. Aspiration precautions Plan: Unasyn day 5 (3) DANY (acute kidney injury) Current Visit: Yes Status: Acute Assessment and plan: Stable 12/11/16 Serum creatinine is near patient's baseline Continue to monitor 12/10/16 DANY on CKD. CR today 1.55, stable continue to monitor. continue to hold enalapril, gabapentin, keppra. resumed home dose of lasix, ASA. (4) Diastolic CHF Current Visit: No Status: Acute Assessment and plan: 12/11/16 Stabilized following diuresis/fluid restriction 12/10/16 last echo from 11/17/16 showed LVEF 60-65, normal LV size and systolic function, indeterminate diastolic function, RV mildly dilated with normal function, mld MR , mild tricuspid regurg, probable mild pulmonary hypertension. patient received IV diuresis while in ICU. may be a contributing factor in patient's cardiac arrest. cardiology was consulted after patient's second episode of PEA- PEA arrests ocurred during hypoxic events and metabolic encehalopathy, they did not recommend any further cardiac testing, likely secondary to hypoxia. patient is not a good candidate for invasive evaluation. Plan: continue with fluid restriction. Qualifiers: Congestive heart failure chronicity: acute on chronic Qualified Code(s): I50.33 - Acute on chronic diastolic (congestive) heart failure (5) Anemia Current Visit: No Status: Acute Assessment and plan: Stable 12/11/16 Hgb stable Positive Hemoccult Colonoscopy today revealed nonbleeding polyp but was otherwise normal EGD today was normal 12/10/16 Acute on chronic anemia. Etiology likely secondary to CKD. stool occult blood positive on 12/03/16 Hg today 7.8, stable Continue to monitor. consulted GI. they will evaluate for possible EGD/scope. Qualifiers: Anemia type: other cause Other causes of anemia: other cause, not classified Qualified Code(s): D64.89 - Other specified anemias (6) Hypertension Current Visit: Yes Status: Acute Assessment and plan: Elevated systolic readings continue amlodipine, hydralazine PRN systolic readings >180, Qualifiers: Hypertension type: essential hypertension Qualified Code(s): I10 - Essential (primary) hypertension (7) Myoclonic jerking Current Visit: Yes Status: Resolved Assessment and plan: 12/10/16 While in the ICU, patient had abnormal limb jerking movements. He was also seen on the in the ED with abnormal extremity movements. Etiology unclear. Consider possible medication side effects, polypharmacy. According to prior notes, myoclonic jerking was related to his renal status. Neurology was consulted and has evaluated the patient. EEG showed no evidence of seizure activity. Resolved at this time. 3: patient is experiencing jerking movements when he gets up out of bed. But does not have these movements at rest. 3: patient still continues to have jerking movements when he tries to sit up in bed. (8) DVT prophylaxis Current Visit: No Status: Acute Assessment and plan: Heparin SQ - Subjective Interval history: Patient was seen and examined at bedside. He was sleeping but easily aroused, and in no acute distress. He states he is not currently having any dyspnea, chest pain, abdominal pain, or other new complaints - Constitutional Vitals: Temp Pulse Resp BP Pulse Ox 97.5 F L 64 18 188/66 99 12/13/16 06:43 12/13/16 06:43 12/13/16 07:50 12/13/16 06:43 12/13/16 07:50 General appearance: Present: A&O X 3, pleasant, no acute distress, answers questions appropriately - Head Head exam: Present: atraumatic, normocephalic - Eye Eye exam: Present: PERRL, conjuntiva pink, sclera anicteric Pupils: Present: PERRL - Neck Neck exam general surgery: Present: supple, trachea midline. Absent: lymphadenopathy - Respiratory Respiratory exam: Present: CTAB. Absent: accessory muscle use, rales, rhonchi, wheezes - Cardiovascular Cardiovascular exam: Present: RRR, +S1, +S2. Absent: diastolic murmur, gallop, rubs, systolic murmur - GI/Abdominal GI/Abdominal exam: Present: normal bowel sounds, soft, no peritoneal signs. Absent: distended, tenderness - Extremities Exam Extremities exam: Present: warm, radial pulses palpable and symetrical. Absent : calf tenderness, cyanotic, pedal edema - Neurological Exam Neurological exam: Present: CN II-XII intact, oriented X3, no focal deficits. Absent: pronater drift, facial droop, speech deficit - Skin Skin exam: Present: dry, intact Internal Medicine: Result - Labs CBC & Chem 7: 12/12/16 06:08 12/12/16 06:08 - ABG Interpretation ABG results: ABG ABG pH 7.41 pH Units (7.32-7.45) 12/05/16 05:12 ABG pCO2 45 mmHg (35-45) 12/05/16 05:12 ABG pO2 80 mmHg (85-104) L 12/05/16 05:12 ABG O2 Saturation 96 % (95-98) 12/05/16 05:12 Consult Discharge Plan - Plan Referrals: Mark Coe MD [Primary Care Provider] - 12/18/16 9:45 am ( ) Isac Zuniga CNP [Advanced Practice Nurse] - 12/26/16 3:00 pm Prescriptions: Oxycodone HCl/Acetaminophen [Percocet 10-325 mg Tablet] 1 each PO Q4HR PRN #30 tablet PRN Reason: Pain Amoxicillin/Clavulanate [Augmentin] 875 mg PO BIDWM #8 tablet <John Arango P - Last Filed: 12/13/16 17:42> - Constitutional Vitals: Temp Pulse Resp BP Pulse Ox 97.8 F 57 16 172/79 99 12/13/16 15:49 12/13/16 15:49 12/13/16 15:49 12/13/16 15:49 12/13/16 15:49 Internal Medicine: Result - Labs CBC & Chem 7: 12/12/16 06:08 12/12/16 06:08 - ABG Interpretation ABG results: ABG ABG pH 7.41 pH Units (7.32-7.45) 12/05/16 05:12 ABG pCO2 45 mmHg (35-45) 12/05/16 05:12 ABG pO2 80 mmHg (85-104) L 12/05/16 05:12 ABG O2 Saturation 96 % (95-98) 12/05/16 05:12 - Attending Attestation I examined this patient and my medical decision-making was reviewed with the REAL ESTATE DEVELOPMENT MANAGER/PA/Advanced Practice Nurse/Resident Physician. I agree with the documented findings, disposition and treatment plan as described except to the extent set forth below. pending insurance approval.
[2016-12-13] MEDS: Insulin LISPRO 300 UNITS/3 ML VIAL SQ SCH ×5 (08:21→21:53)
[2016-12-13] MEDS: Aspirin Enteric Coated 81 MG Tablet PO SCH (08:21)
[2016-12-13] MEDS: amLODIPine 5 MG TABLET PO SCH (08:21)
[2016-12-13] MEDS: Furosemide 40 MG TABLET PO SCH (08:21)
[2016-12-13] MEDS: Pantoprazole 40 MG VIAL IVP SCH (08:21)
[2016-12-13] MEDS: Insulin DETEMIR 100 UNIT/ML X5UNITS SQ SCH (21:51)
[2016-12-13] MEDS: *HR* OxyCODONE Immed Rel 5 MG TABLET PO PRN (21:52)
[2016-12-13] MEDS: Ondansetron 4 MG/2 ML VIAL IV PRN (21:54)
[2016-12-14] MEDS: Ipratropium/Albuterol Neb 3 ML IH SCH ×6 (05:03→23:06)
[2016-12-14] MEDS: *HR* Heparin 5,000 UNIT/ML VIAL SQ SCH ×2 (06:02→17:08)
[2016-12-14 06:08] LABS: Calcium 7.6 mg/dL (8.6-10.8); Potassium 3.1 mEq/L (3.5-4.5)
--- NOTE | 2016-12-14 07:11 | Internal Med Progress Note ---
<Mike Tenorio - Last Filed: 12/14/16 09:39> Date of Encounter: 12/14/16 Time of Encounter: 07:11 - Assessment and plan (1) Metabolic encephalopathy Current Visit: Yes Status: Resolved Assessment and plan: Patient continues to have stable mental status 12/11/16 Stable 12/10/16 Etiology likelly multifactorial, including acute COPD exacerbation, acute pulmonary edema, acute diastolic CHF, metabolic encephalopathy with aspiration pneumonia, pulmonary edema. currently resolved. DDx also includes polypharmacy combined with DANY. COntinue to hold sedating medications. Continue with unasyn, day 5 (2) Acute respiratory failure with hypoxia Current Visit: Yes Status: Acute Assessment and plan: Resolved O2 saturation 97% on room air 12/11/16 Significant clinical improvement Continue antibiotics 12/10/16 Etiology likelly multifactorial, including COPD exacerbation, pulmonary edema, CHF, metabolic encephalopathy with aspiration pneumonia, pulmonary edema. patient was in ICU on ventilator, had metabolic encephalopathy. He had a previous hospital admission for osteomyelitis and was in the ICU then as well, suffered PEA arrest. Patient admitted from senior living, repeat episode of PEA during intubation. bronchoscopy showed normal respiratory sadi, no pathogens isolated, sputum culture negative, influenza antigens negative, blood cultures showed no growth. Patient is currently stable, on 2L nasal canula, oxygenating well. Aspiration precautions Plan: Unasyn day 5 (3) DANY (acute kidney injury) Current Visit: Yes Status: Acute Assessment and plan: Stable. Creatinine has continued to improve 12/11/16 Serum creatinine is near patient's baseline Continue to monitor 12/10/16 DANY on CKD. CR today 1.55, stable continue to monitor. continue to hold enalapril, gabapentin, keppra. resumed home dose of lasix, ASA. (4) Diastolic CHF Current Visit: No Status: Acute Assessment and plan: Stable 12/11/16 Stabilized following diuresis/fluid restriction 12/10/16 last echo from 11/17/16 showed LVEF 60-65, normal LV size and systolic function, indeterminate diastolic function, RV mildly dilated with normal function, mld MR , mild tricuspid regurg, probable mild pulmonary hypertension. patient received IV diuresis while in ICU. may be a contributing factor in patient's cardiac arrest. cardiology was consulted after patient's second episode of PEA- PEA arrests ocurred during hypoxic events and metabolic encehalopathy, they did not recommend any further cardiac testing, likely secondary to hypoxia. patient is not a good candidate for invasive evaluation. Plan: continue with fluid restriction. Qualifiers: Congestive heart failure chronicity: acute on chronic Qualified Code(s): I50.33 - Acute on chronic diastolic (congestive) heart failure (5) Anemia Current Visit: No Status: Acute Assessment and plan: Hemoglobin stable 12/11/16 Hgb stable Positive Hemoccult Colonoscopy today revealed nonbleeding polyp but was otherwise normal EGD today was normal 12/10/16 Acute on chronic anemia. Etiology likely secondary to CKD. stool occult blood positive on 12/03/16 Hg today 7.8, stable Continue to monitor. consulted GI. they will evaluate for possible EGD/scope. Qualifiers: Anemia type: other cause Other causes of anemia: other cause, not classified Qualified Code(s): D64.89 - Other specified anemias (6) Hypertension Current Visit: Yes Status: Acute Assessment and plan: Elevated systolic readings continue amlodipine, hydralazine PRN systolic readings >180, Qualifiers: Hypertension type: essential hypertension Qualified Code(s): I10 - Essential (primary) hypertension (7) Myoclonic jerking Current Visit: Yes Status: Resolved Assessment and plan: 12/10/16 While in the ICU, patient had abnormal limb jerking movements. He was also seen on the in the ED with abnormal extremity movements. Etiology unclear. Consider possible medication side effects, polypharmacy. According to prior notes, myoclonic jerking was related to his renal status. Neurology was consulted and has evaluated the patient. EEG showed no evidence of seizure activity. Resolved at this time. 3: patient is experiencing jerking movements when he gets up out of bed. But does not have these movements at rest. 3: patient still continues to have jerking movements when he tries to sit up in bed. (8) DVT prophylaxis Current Visit: No Status: Acute Assessment and plan: Heparin SQ - Subjective Interval history: Patient was seen and examined at bedside this morning. He was sleeping but easily aroused, and in no acute distress. He denies dyspnea, chest pain, abdominal pain, or other new complaints - Constitutional Vitals: Temp Pulse Resp BP Pulse Ox 97.5 F L 69 18 164/94 97 12/14/16 06:04 12/14/16 06:04 12/14/16 06:04 12/14/16 06:04 12/14/16 06:04 General appearance: Present: A&O X 3, pleasant, no acute distress, answers questions appropriately - Head Head exam: Present: atraumatic, normocephalic - Eye Eye exam: Present: PERRL, conjuntiva pink, sclera anicteric Pupils: Present: PERRL - Neck Neck exam general surgery: Present: supple, trachea midline. Absent: lymphadenopathy - Respiratory Respiratory exam: Present: CTAB. Absent: accessory muscle use, rales, rhonchi, wheezes - Cardiovascular Cardiovascular exam: Present: RRR, +S1, +S2. Absent: diastolic murmur, gallop, rubs, systolic murmur - GI/Abdominal GI/Abdominal exam: Present: normal bowel sounds, soft, no peritoneal signs. Absent: distended, tenderness - Extremities Exam Extremities exam: Present: warm, radial pulses palpable and symetrical. Absent : calf tenderness, cyanotic, pedal edema - Neurological Exam Neurological exam: Present: CN II-XII intact, oriented X3, no focal deficits. Absent: pronater drift, facial droop, speech deficit - Skin Skin exam: Present: dry, intact Internal Medicine: Result - Labs CBC & Chem 7: 12/12/16 06:08 12/14/16 05:45 Labs: BMP 12/14/16 05:45 Sodium 143 Potassium 3.1 L Chloride 105 Carbon Dioxide 27 BUN 12 Creatinine 1.52 H Glucose 182 H Calcium 7.6 L - ABG Interpretation ABG results: ABG ABG pH 7.41 pH Units (7.32-7.45) 12/05/16 05:12 ABG pCO2 45 mmHg (35-45) 12/05/16 05:12 ABG pO2 80 mmHg (85-104) L 12/05/16 05:12 ABG O2 Saturation 96 % (95-98) 12/05/16 05:12 Consult Discharge Plan - Plan Referrals: Mark Coe MD [Primary Care Provider] - 12/18/16 9:45 am ( ) Isac Zuniga CNP [Advanced Practice Nurse] - 12/26/16 3:00 pm Prescriptions: Oxycodone HCl/Acetaminophen [Percocet 10-325 mg Tablet] 1 each PO Q4HR PRN #30 tablet PRN Reason: Pain Amoxicillin/Clavulanate [Augmentin] 875 mg PO BIDWM #8 tablet <John Arango P - Last Filed: 12/14/16 18:20> - Constitutional Vitals: Temp Pulse Resp BP Pulse Ox 98.9 F 60 18 138/63 99 12/14/16 14:54 12/14/16 14:54 12/14/16 15:38 12/14/16 14:54 12/14/16 15:38 Internal Medicine: Result - Labs CBC & Chem 7: 12/12/16 06:08 12/14/16 05:45 Labs: BMP 12/14/16 05:45 Sodium 143 Potassium 3.1 L Chloride 105 Carbon Dioxide 27 BUN 12 Creatinine 1.52 H Glucose 182 H Calcium 7.6 L - ABG Interpretation ABG results: ABG ABG pH 7.41 pH Units (7.32-7.45) 12/05/16 05:12 ABG pCO2 45 mmHg (35-45) 12/05/16 05:12 ABG pO2 80 mmHg (85-104) L 12/05/16 05:12 ABG O2 Saturation 96 % (95-98) 12/05/16 05:12 - Attending Attestation I examined this patient and my medical decision-making was reviewed with the TRANSPORTATION DISPATCH MANAGER/PA/Advanced Practice Nurse/Resident Physician. I agree with the documented findings, disposition and treatment plan as described except to the extent set forth below. medically clear , pending placement.
[2016-12-14] MEDS: Aspirin Enteric Coated 81 MG Tablet PO SCH (08:11)
[2016-12-14] MEDS: Furosemide 40 MG TABLET PO SCH (08:11)
[2016-12-14] MEDS: Insulin LISPRO 300 UNITS/3 ML VIAL SQ SCH ×4 (08:11→21:21)
[2016-12-14] MEDS: amLODIPine 5 MG TABLET PO SCH (08:11)
[2016-12-14] MEDS: Ondansetron 4 MG/2 ML VIAL IV PRN (09:24)
[2016-12-14] MEDS: *HR* OxyCODONE Immed Rel 5 MG TABLET PO PRN (22:18)
[2016-12-14] MEDS: Insulin DETEMIR 100 UNIT/ML X5UNITS SQ SCH (22:18)
[2016-12-15] MEDS: Ipratropium/Albuterol Neb 3 ML IH SCH ×6 (05:07→23:15)
[2016-12-15] MEDS: *HR* OxyCODONE Immed Rel 5 MG TABLET PO PRN (05:12)
[2016-12-15] MEDS: *HR* Heparin 5,000 UNIT/ML VIAL SQ SCH ×2 (05:12→16:58)
[2016-12-15 06:50] LABS: Calcium 7.6 mg/dL (8.6-10.8); Potassium 3.2 mEq/L (3.5-4.5)
[2016-12-15 07:09] LABS: Basophils # 0.1 K/mcL (0.0-0.2); Basophils % 0.9 %; Eosinophils # 0.1 K/mcL (0.0-0.6); Eosinophils % 2.1 %; Hematocrit 27.5 % (37.5-50.1); Immature Granulocytes % 1.5 % (0-4); Lymphocytes # 2.1 K/mcL (0.6-4.6); Mean Corpuscular HGB Conc 32.7 g/dL (31.6-35.5); Mean Corpuscular Hemoglobin 26.9 pg (28.0-33.3); Mean Corpuscular Volume 82.3 fL (83.0-100.0); Monocytes # 0.6 K/mcL (0.0-1.3); Neutrophils # 2.8 K/mcL (1.6-8.9); Platelet Count 473 K/mcL (140-400); Red Blood Count 3.34 M/mcL (4.19-5.50); Red Cell Distribution Width 15.3 % (11.5-14.5); Segmented Neutrophils % 48.5 %
[2016-12-15] MEDS: Insulin LISPRO 300 UNITS/3 ML VIAL SQ SCH ×4 (08:44→20:17)
[2016-12-15] MEDS: Furosemide 40 MG TABLET PO SCH (10:12)
[2016-12-15] MEDS: Aspirin Enteric Coated 81 MG Tablet PO SCH (10:12)
[2016-12-15] MEDS: amLODIPine 5 MG TABLET PO SCH (10:13)
--- NOTE | 2016-12-15 17:06 | Internal Med Progress Note ---
Date of Encounter: 12/15/16 Time of Encounter: 17:04 - Assessment and plan (1) Metabolic encephalopathy Current Visit: Yes Status: Resolved Assessment and plan: 12/15/2016 no new developments noted that patient is medically clear and awaiting for placement. Patient continues to have stable mental status 12/11/16 Stable 12/10/16 Etiology likelly multifactorial, including acute COPD exacerbation, acute pulmonary edema, acute diastolic CHF, metabolic encephalopathy with aspiration pneumonia, pulmonary edema. currently resolved. DDx also includes polypharmacy combined with DANY. COntinue to hold sedating medications. Continue with unasyn, day 5 (2) Acute respiratory failure with hypoxia Current Visit: Yes Status: Acute Assessment and plan: Resolved O2 saturation 97% on room air 12/11/16 Significant clinical improvement Continue antibiotics 12/10/16 Etiology likelly multifactorial, including COPD exacerbation, pulmonary edema, CHF, metabolic encephalopathy with aspiration pneumonia, pulmonary edema. patient was in ICU on ventilator, had metabolic encephalopathy. He had a previous hospital admission for osteomyelitis and was in the ICU then as well, suffered PEA arrest. Patient admitted from retirement, repeat episode of PEA during intubation. bronchoscopy showed normal respiratory sadi, no pathogens isolated, sputum culture negative, influenza antigens negative, blood cultures showed no growth. Patient is currently stable, on 2L nasal canula, oxygenating well. Aspiration precautions Plan: Unasyn day 5 (3) DANY (acute kidney injury) Current Visit: Yes Status: Acute Assessment and plan: 12/15/2016 creat 1.7 will start IV fluids will recheck tomorrow 12/11/16 Serum creatinine is near patient's baseline Continue to monitor 12/10/16 DANY on CKD. CR today 1.55, stable continue to monitor. continue to hold enalapril, gabapentin, keppra. resumed home dose of lasix, ASA. (4) Myoclonic jerking Current Visit: Yes Status: Resolved Assessment and plan: 12/10/16 While in the ICU, patient had abnormal limb jerking movements. He was also seen on the in the ED with abnormal extremity movements. Etiology unclear. Consider possible medication side effects, polypharmacy. According to prior notes, myoclonic jerking was related to his renal status. Neurology was consulted and has evaluated the patient. EEG showed no evidence of seizure activity. Resolved at this time. 12/09: patient is experiencing jerking movements when he gets up out of bed. But does not have these movements at rest. 12/10: patient still continues to have jerking movements when he tries to sit up in bed. (5) Anemia Current Visit: No Status: Acute Assessment and plan: Hemoglobin stable 12/11/16 Hgb stable Positive Hemoccult Colonoscopy today revealed nonbleeding polyp but was otherwise normal EGD today was normal 12/10/16 Acute on chronic anemia. Etiology likely secondary to CKD. stool occult blood positive on 12/03/16 Hg today 7.8, stable Continue to monitor. consulted GI. they will evaluate for possible EGD/scope. Qualifiers: Anemia type: other cause Other causes of anemia: other cause, not classified Qualified Code(s): D64.89 - Other specified anemias - Subjective Interval history: seen and examined no new complaints - Constitutional Vitals: Temp Pulse Resp BP Pulse Ox 98.0 F 61 14 189/82 94 L 12/15/16 15:24 12/15/16 15:24 12/15/16 15:24 12/15/16 15:24 12/15/16 15:24 General appearance: Present: A&O X 3, pleasant, no acute distress, answers questions appropriately - Head Head exam: Present: atraumatic, normocephalic - Eye Eye exam: Present: PERRL, conjuntiva pink, sclera anicteric Pupils: Present: PERRL - Neck Neck exam general surgery: Present: supple, trachea midline. Absent: lymphadenopathy - Respiratory Respiratory exam: Present: CTAB. Absent: accessory muscle use, rales, rhonchi, wheezes - Cardiovascular Cardiovascular exam: Present: RRR, +S1, +S2. Absent: diastolic murmur, gallop, rubs, systolic murmur - GI/Abdominal GI/Abdominal exam: Present: normal bowel sounds, soft, no peritoneal signs. Absent: distended, tenderness - Extremities Exam Extremities exam: Present: warm, radial pulses palpable and symetrical. Absent : calf tenderness, cyanotic, pedal edema - Neurological Exam Neurological exam: Present: CN II-XII intact, oriented X3, no focal deficits. Absent: pronater drift, facial droop, speech deficit - Skin Skin exam: Present: dry, intact Internal Medicine: Result - Labs CBC & Chem 7: 12/15/16 05:56 12/15/16 05:56 Labs: Short CBC 12/15/16 Range/Units 05:56 WBC 5.8 (4.3-11.1) K/mcL Hgb 9.0 L (12.9-16.9) g/dL Hct 27.5 L (37.5-50.1) % Plt Count 473 H (140-400) K/mcL Neutrophils # 2.8 (1.6-8.9) K/mcL BMP 12/15/16 05:56 Sodium 143 Potassium 3.2 L Chloride 105 Carbon Dioxide 26 BUN 16 Creatinine 1.70 H Glucose 227 H Calcium 7.6 L - ABG Interpretation ABG results: ABG ABG pH 7.41 pH Units (7.32-7.45) 12/05/16 05:12 ABG pCO2 45 mmHg (35-45) 12/05/16 05:12 ABG pO2 80 mmHg (85-104) L 12/05/16 05:12 ABG O2 Saturation 96 % (95-98) 12/05/16 05:12 Consult Discharge Plan - Plan Referrals: Mark Coe MD [Primary Care Provider] - 12/18/16 9:45 am ( ) Isac Zuniga CNP [Advanced Practice Nurse] - 12/26/16 3:00 pm Prescriptions: Oxycodone HCl/Acetaminophen [Percocet 10-325 mg Tablet] 1 each PO Q4HR PRN #30 tablet PRN Reason: Pain Amoxicillin/Clavulanate [Augmentin] 875 mg PO BIDWM #8 tablet
[2016-12-15] MEDS: 0.9 % Sodium Chloride 1,000 ML IVC SCH (17:34)
[2016-12-15] MEDS: Insulin DETEMIR 100 UNIT/ML X5UNITS SQ SCH (20:16)
[2016-12-16] MEDS: Ipratropium/Albuterol Neb 3 ML IH SCH ×6 (04:35→23:31)
[2016-12-16] MEDS: *HR* Heparin 5,000 UNIT/ML VIAL SQ SCH ×2 (05:27→18:52)
[2016-12-16 07:08] LABS: Basophils # 0.1 K/mcL (0.0-0.2); Basophils % 0.7 %; Eosinophils # 0.1 K/mcL (0.0-0.6); Eosinophils % 1.8 %; Hematocrit 26.6 % (37.5-50.1); Hemoglobin 8.6 g/dL (12.9-16.9); Immature Granulocytes % 1.2 % (0-4); Lymphocytes % 27.4 %; Mean Corpuscular HGB Conc 32.3 g/dL (31.6-35.5); Mean Corpuscular Hemoglobin 26.6 pg (28.0-33.3); Mean Corpuscular Volume 82.4 fL (83.0-100.0); Mean Platelet Volume 8.6 fL (9.4-12.4); Monocytes # 0.7 K/mcL (0.0-1.3); Monocytes % 9.3 %; Neutrophils # 4.4 K/mcL (1.6-8.9); Platelet Count 390 K/mcL (140-400); Red Blood Count 3.23 M/mcL (4.19-5.50); Red Cell Distribution Width 15.7 % (11.5-14.5); Segmented Neutrophils % 59.6 %
[2016-12-16 07:15] LABS: Albumin 2.6 g/dL (3.5-5.0); Albumin/Globulin Ratio 0.7 (1.1-2.2); Bilirubin,Total 0.4 mg/dL (0.2-1.2); Calcium 7.8 mg/dL (8.6-10.8); Globulin 3.7 g/dL (2.4-3.5); Potassium 3.8 mEq/L (3.5-4.5); Total Protein 6.3 g/dL (6.0-8.3)
[2016-12-16] MEDS: Insulin LISPRO 300 UNITS/3 ML VIAL SQ SCH ×4 (08:08→20:41)
[2016-12-16] MEDS: 0.9 % Sodium Chloride 1,000 ML IVC SCH ×2 (08:08→18:53)
[2016-12-16] MEDS: Furosemide 40 MG TABLET PO SCH ×2 (08:09→10:56)
[2016-12-16] MEDS: amLODIPine 5 MG TABLET PO SCH ×2 (08:09→10:56)
[2016-12-16] MEDS: Ondansetron 4 MG/2 ML VIAL IV PRN (09:29)
[2016-12-16] MEDS: Aspirin Enteric Coated 81 MG Tablet PO SCH (10:34)
[2016-12-16] MEDS: Gabapentin 300 MG CAPSULE PO SCH ×3 (11:51→20:40)
--- NOTE | 2016-12-16 14:32 | Internal Med Progress Note ---
Date of Encounter: 12/16/16 Time of Encounter: 14:30 - Assessment and plan (1) Metabolic encephalopathy Current Visit: Yes Status: Resolved Assessment and plan: 12/16/2016 renal function improving will continue IV fluids will check lab tomorrow 12/15/2016 no new developments noted that patient is medically clear and awaiting for placement. Patient continues to have stable mental status 12/11/16 Stable 12/10/16 Etiology likelly multifactorial, including acute COPD exacerbation, acute pulmonary edema, acute diastolic CHF, metabolic encephalopathy with aspiration pneumonia, pulmonary edema. currently resolved. DDx also includes polypharmacy combined with DANY. COntinue to hold sedating medications. Continue with unasyn, day 5 (2) Acute respiratory failure with hypoxia Current Visit: Yes Status: Acute Assessment and plan: Resolved O2 saturation 97% on room air 12/11/16 Significant clinical improvement Continue antibiotics 12/10/16 Etiology likelly multifactorial, including COPD exacerbation, pulmonary edema, CHF, metabolic encephalopathy with aspiration pneumonia, pulmonary edema. patient was in ICU on ventilator, had metabolic encephalopathy. He had a previous hospital admission for osteomyelitis and was in the ICU then as well, suffered PEA arrest. Patient admitted from care home, repeat episode of PEA during intubation. bronchoscopy showed normal respiratory sadi, no pathogens isolated, sputum culture negative, influenza antigens negative, blood cultures showed no growth. Patient is currently stable, on 2L nasal canula, oxygenating well. Aspiration precautions Plan: Unasyn day 5 (3) DANY (acute kidney injury) Current Visit: Yes Status: Acute Assessment and plan: 12/15/2016 creat 1.7 will start IV fluids will recheck tomorrow 12/11/16 Serum creatinine is near patient's baseline Continue to monitor 12/10/16 DANY on CKD. CR today 1.55, stable continue to monitor. continue to hold enalapril, gabapentin, keppra. resumed home dose of lasix, ASA. (4) Myoclonic jerking Current Visit: Yes Status: Resolved Assessment and plan: 12/10/16 While in the ICU, patient had abnormal limb jerking movements. He was also seen on the in the ED with abnormal extremity movements. Etiology unclear. Consider possible medication side effects, polypharmacy. According to prior notes, myoclonic jerking was related to his renal status. Neurology was consulted and has evaluated the patient. EEG showed no evidence of seizure activity. Resolved at this time. 12/09: patient is experiencing jerking movements when he gets up out of bed. But does not have these movements at rest. 12/10: patient still continues to have jerking movements when he tries to sit up in bed. (5) Anemia Current Visit: No Status: Acute Assessment and plan: Hemoglobin stable 12/11/16 Hgb stable Positive Hemoccult Colonoscopy today revealed nonbleeding polyp but was otherwise normal EGD today was normal 12/10/16 Acute on chronic anemia. Etiology likely secondary to CKD. stool occult blood positive on 12/03/16 Hg today 7.8, stable Continue to monitor. consulted GI. they will evaluate for possible EGD/scope. Qualifiers: Anemia type: other cause Other causes of anemia: other cause, not classified Qualified Code(s): D64.89 - Other specified anemias - Subjective Interval history: seen and examined no new complaints 12/16/2016 seen and examined. no new complaints patient has still myoclonic jerks - Constitutional Vitals: Temp Pulse Resp BP Pulse Ox 98.0 F 96 16 164/67 94 L 12/16/16 11:28 12/16/16 11:28 12/16/16 11:28 12/16/16 11:28 12/16/16 11:28 General appearance: Present: A&O X 3, pleasant, no acute distress, answers questions appropriately - Head Head exam: Present: atraumatic, normocephalic - Eye Eye exam: Present: PERRL, conjuntiva pink, sclera anicteric Pupils: Present: PERRL - Neck Neck exam general surgery: Present: supple, trachea midline. Absent: lymphadenopathy - Respiratory Respiratory exam: Present: CTAB. Absent: accessory muscle use, rales, rhonchi, wheezes - Cardiovascular Cardiovascular exam: Present: RRR, +S1, +S2. Absent: diastolic murmur, gallop, rubs, systolic murmur - GI/Abdominal GI/Abdominal exam: Present: normal bowel sounds, soft, no peritoneal signs. Absent: distended, tenderness - Extremities Exam Extremities exam: Present: warm, radial pulses palpable and symetrical. Absent : calf tenderness, cyanotic, pedal edema - Neurological Exam Neurological exam: Present: CN II-XII intact, oriented X3, no focal deficits. Absent: pronater drift, facial droop, speech deficit - Skin Skin exam: Present: dry, intact Internal Medicine: Result - Labs CBC & Chem 7: 12/16/16 06:47 12/16/16 06:47 Labs: Short CBC 12/16/16 Range/Units 06:47 WBC 7.3 (4.3-11.1) K/mcL Hgb 8.6 L (12.9-16.9) g/dL Hct 26.6 L (37.5-50.1) % Plt Count 390 (140-400) K/mcL Neutrophils # 4.4 (1.6-8.9) K/mcL BMP 12/16/16 06:47 Sodium 142 Potassium 3.8 Chloride 107 Carbon Dioxide 27 BUN 19 Creatinine 1.48 H Glucose 162 H Calcium 7.8 L Liver Function 12/16/16 Range/Units 06:47 Total Bilirubin 0.4 (0.2-1.2) mg/dL AST 9 (5-34) Units/L ALT 9 (0-55) Units/L Alkaline Phosphatase 78 (38-126) Units/L Albumin 2.6 L (3.5-5.0) g/dL - ABG Interpretation ABG results: ABG ABG pH 7.41 pH Units (7.32-7.45) 12/05/16 05:12 ABG pCO2 45 mmHg (35-45) 12/05/16 05:12 ABG pO2 80 mmHg (85-104) L 12/05/16 05:12 ABG O2 Saturation 96 % (95-98) 12/05/16 05:12 Consult Discharge Plan - Plan Referrals: Mark Coe MD [Primary Care Provider] - 12/18/16 9:45 am ( ) Isac Zuniga CNP [Advanced Practice Nurse] - 12/26/16 3:00 pm Prescriptions: Oxycodone HCl/Acetaminophen [Percocet 10-325 mg Tablet] 1 each PO Q4HR PRN #30 tablet PRN Reason: Pain Amoxicillin/Clavulanate [Augmentin] 875 mg PO BIDWM #8 tablet
[2016-12-16] MEDS ORDERED: *HR* LORazepam 2 MG/ML VIAL ONE (16:23)
[2016-12-16] MEDS ORDERED: *HR* LORazepam 2 MG/ML VIAL IVP ONE (16:25)
--- NOTE | 2016-12-16 18:10 | Event Note ---
Addendum entered and electronically signed by Elis Flores DO 18:15: CT head negative for acute intracranial hemorrhage, mass effect, or midline shift. No extra-axial fluid collection. Whyte-white differentiation maintained without evidence of acute infarct. No evidence of hydrocephalus. Stable mild atrophy. Old lacunar infarct in left basal ganglia. Original Note: <Elis Flores - Last Filed: 12/16/16 18:04> Date of Encounter: 12/16/16 Time of Encounter: 16:00 Physicians alerted to patient having seizure-like activity. Code was called at 16:00. Patient was found sitting on floor when physicians entered room. Patient lowered to floor. Pulse was not palpable. Breathing was present and augmented with bag-valve mask. Chest compressions initiated at 16:00. Pulse check 16:02 revealed palpable pulse. Patient lifted to bed. O2 support was given. At this point, patient became post-ictal. Patient's breathing supported with non-rebreather mask. Code was ended at 16:04. <John Arango - Last Filed: 12/16/16 19:01> I examined this patient and my medical decision-making was reviewed with the BOARD CERTIFIED BEHAVIORAL ANALYST/PA/Advanced Practice Nurse/Resident Physician. I agree with the documented findings, disposition and treatment plan as described except to the extent set forth below. i was code leader spoke with family and updated all above family verbalized understanding.
[2016-12-16] MEDS: *HR* OxyCODONE Immed Rel 5 MG TABLET PO PRN (20:40)
[2016-12-16] MEDS: Insulin DETEMIR 100 UNIT/ML X5UNITS SQ SCH (20:52)
[2016-12-17] MEDS: Ipratropium/Albuterol Neb 3 ML IH SCH ×5 (04:10→19:34)
[2016-12-17] MEDS: *HR* Heparin 5,000 UNIT/ML VIAL SQ SCH ×2 (05:09→17:44)
[2016-12-17] MEDS: *HR* OxyCODONE Immed Rel 5 MG TABLET PO PRN ×3 (05:09→18:58)
[2016-12-17 05:19] LABS: Basophils # 0.1 K/mcL (0.0-0.2); Basophils % 0.7 %; Eosinophils # 0.1 K/mcL (0.0-0.6); Eosinophils % 1.3 %; Hematocrit 25.1 % (37.5-50.1); Hemoglobin 8.1 g/dL (12.9-16.9); Immature Granulocytes % 0.8 % (0-4); Lymphocytes # 1.9 K/mcL (0.6-4.6); Lymphocytes % 25.2 %; Mean Corpuscular HGB Conc 32.3 g/dL (31.6-35.5); Mean Corpuscular Volume 83.7 fL (83.0-100.0); Mean Platelet Volume 8.9 fL (9.4-12.4); Monocytes # 0.7 K/mcL (0.0-1.3); Monocytes % 9.6 %; Neutrophils # 4.7 K/mcL (1.6-8.9); Platelet Count 357 K/mcL (140-400); Red Cell Distribution Width 15.6 % (11.5-14.5); Segmented Neutrophils % 62.4 %
[2016-12-17 05:45] LABS: Alanine Aminotransferase 10 Units/L (0-55); Albumin 2.6 g/dL (3.5-5.0); Albumin/Globulin Ratio 0.8 (1.1-2.2); Alkaline Phosphatase 71 Units/L (38-126); Aspartate Amino Transferase 12 Units/L (5-34); BUN/Creatinine Ratio 12 (6-26); Bilirubin,Total 0.6 mg/dL (0.2-1.2); Blood Urea Nitrogen 17 mg/dL (8-26); Calcium 8.2 mg/dL (8.6-10.8); Carbon Dioxide 26 mEq/L (19-29); Chloride 107 mEq/L (98-109); Globulin 3.4 g/dL (2.4-3.5); Glucose 136 mg/dL (70-99); Osmolality,Calculated 296 (280-300); Potassium 3.6 mEq/L (3.5-4.5); Sodium 141 mEq/L (136-145); eGFR For African Americans > 60 (> 60); eGFR For Non-African Americans 50 (> 60)
[2016-12-17] MEDS: 0.9 % Sodium Chloride 1,000 ML IVC SCH (08:37)
[2016-12-17] MEDS: Furosemide 40 MG TABLET PO SCH (08:38)
[2016-12-17] MEDS: Insulin LISPRO 300 UNITS/3 ML VIAL SQ SCH ×4 (08:38→23:38)
[2016-12-17] MEDS: Gabapentin 300 MG CAPSULE PO SCH ×3 (08:38→20:51)
[2016-12-17] MEDS: amLODIPine 5 MG TABLET PO SCH (08:39)
[2016-12-17] MEDS: Aspirin Enteric Coated 81 MG Tablet PO SCH (08:39)
--- NOTE | 2016-12-17 18:03 | Internal Med Progress Note ---
Date of Encounter: 12/17/16 Time of Encounter: 17:59 - Assessment and plan (1) Metabolic encephalopathy Current Visit: Yes Status: Resolved Assessment and plan: 12/17/2016 Brief summary for incoming team Mr. Regalado is a 61 year old male with past medical history of type 2 diabetes, hypertension, CAD, osteomyelitis from diabetic foot ulcer, recent cardiac arrest. He had a recent hospitalization for osteomyelitis during which time he had cardiac arrest and spent 1 week in the ICU. Upon discharge she was sent to [place] [facility] where he experienced dyspnea and returned back here to the emergency department where he required intubation. He developed pulseless electrical activity and required 2-3 minutes of CPR. He received antibiotics for aspiration pneumonia and treatment for COPD exacerbation, CHF exacerbation + acute pulmonary edema. He did well here, was extubated 12/05. He also underwent bronchoscopy with mucous plug removal. Bronchoscopy revealed normal sadi, sputum culture was negative. Flu antigens and blood culture were also negative. His creatinine remained stable. Cardiology saw the patient during his hospitalization and recommended no further testing. He is not deemed a good candidate for invasive evaluation due to his AK I and anemia. He had a positive stool guaiac and underwent upper/lower endoscopy which were grossly unremarkable other than removal of a colonic polyp. [facility] will [facility]. [facility] he was here in hospital and yesterday he coded around 4 pm. ACLS protocol was initiated he was revived in 2 min. Down time 10 sec. transferred to He was placed on Augmentin but since yesterday's episode his wound was contaminated during CPR will get blood culture and will start abx 12/16/2016 renal function improving will continue IV fluids will check lab tomorrow 12/15/2016 no new developments noted that patient is medically clear and awaiting for placement. Patient continues to have stable mental status 12/11/16 Stable 12/10/16 Etiology likelly multifactorial, including acute COPD exacerbation, acute pulmonary edema, acute diastolic CHF, metabolic encephalopathy with aspiration pneumonia, pulmonary edema. currently resolved. DDx also includes polypharmacy combined with DANY. COntinue to hold sedating medications. Continue with unasyn, day 5 (2) Acute respiratory failure with hypoxia Current Visit: Yes Status: Acute Assessment and plan: Resolved O2 saturation 97% on room air (3) DANY (acute kidney injury) Current Visit: Yes Status: Acute Assessment and plan: Improving renal function from 1.7 creatinine to 1.4 today We will continue to monitor (4) Myoclonic jerking Current Visit: Yes Status: Resolved Assessment and plan: 12/10/16 While in the ICU, patient had abnormal limb jerking movements. He was also seen on the in the ED with abnormal extremity movements. Etiology unclear. Consider possible medication side effects, polypharmacy. According to prior notes, myoclonic jerking was related to his renal status. Neurology was consulted and has evaluated the patient. EEG showed no evidence of seizure activity. Resolved at this time. (5) Anemia Current Visit: No Status: Acute Assessment and plan: Hemoglobin stable Qualifiers: Anemia type: other cause Other causes of anemia: other cause, not classified Qualified Code(s): D64.89 - Other specified anemias - Subjective Interval history: seen and examined no new complaints 12/16/2016 seen and examined. no new complaints patient has still myoclonic jerks 12/17/2016 seen and examined. no new events since last night. eating well and does not have any cognitive change. S/P code blue yesterday - Constitutional Vitals: Temp Pulse Resp BP Pulse Ox 98.7 F 63 16 141/51 92 L 12/17/16 14:03 12/17/16 14:03 12/17/16 14:03 12/17/16 14:03 12/17/16 14:03 General appearance: Present: A&O X 3, pleasant, no acute distress, answers questions appropriately - Head Head exam: Present: atraumatic, normocephalic - Eye Eye exam: Present: PERRL, conjuntiva pink, sclera anicteric Pupils: Present: PERRL - Neck Neck exam general surgery: Present: supple, trachea midline. Absent: lymphadenopathy - Respiratory Respiratory exam: Present: CTAB. Absent: accessory muscle use, rales, rhonchi, wheezes - Cardiovascular Cardiovascular exam: Present: RRR, +S1, +S2. Absent: diastolic murmur, gallop, rubs, systolic murmur - GI/Abdominal GI/Abdominal exam: Present: normal bowel sounds, soft, no peritoneal signs. Absent: distended, tenderness - Extremities Exam Extremities exam: Present: warm, radial pulses palpable and symetrical. Absent : calf tenderness, cyanotic, pedal edema - Neurological Exam Neurological exam: Present: CN II-XII intact, oriented X3, no focal deficits. Absent: pronater drift, facial droop, speech deficit - Skin Skin exam: Present: dry, intact Internal Medicine: Result - Labs CBC & Chem 7: 12/17/16 05:00 12/17/16 05:00 Labs: Short CBC 12/17/16 Range/Units 05:00 WBC 7.5 (4.3-11.1) K/mcL Hgb 8.1 L (12.9-16.9) g/dL Hct 25.1 L (37.5-50.1) % Plt Count 357 (140-400) K/mcL Neutrophils # 4.7 (1.6-8.9) K/mcL BMP 12/17/16 05:00 Sodium 141 Potassium 3.6 Chloride 107 Carbon Dioxide 26 BUN 17 Creatinine 1.43 H Glucose 136 H Calcium 8.2 L Liver Function 12/17/16 Range/Units 05:00 Total Bilirubin 0.6 (0.2-1.2) mg/dL AST 12 (5-34) Units/L ALT 10 (0-55) Units/L Alkaline Phosphatase 71 (38-126) Units/L Albumin 2.6 L (3.5-5.0) g/dL - ABG Interpretation ABG results: ABG ABG pH 7.41 pH Units (7.32-7.45) 12/05/16 05:12 ABG pCO2 45 mmHg (35-45) 12/05/16 05:12 ABG pO2 80 mmHg (85-104) L 12/05/16 05:12 ABG O2 Saturation 96 % (95-98) 12/05/16 05:12 Consult Discharge Plan - Plan Referrals: aMrk Coe MD [Primary Care Provider] - (PT IS GOING TO [facility] NO FOLLOW UP PCP APPOINTMENT NEEDED ) Isac Zuniga CNP [Advanced Practice Nurse] - 12/26/16 3:00 pm Prescriptions: Oxycodone HCl/Acetaminophen [Percocet 10-325 mg Tablet] 1 each PO Q4HR PRN #30 tablet PRN Reason: Pain Amoxicillin/Clavulanate [Augmentin] 875 mg PO BIDWM #8 tablet
[2016-12-17] MEDS: Insulin DETEMIR 100 UNIT/ML X5UNITS SQ SCH (20:54)
[2016-12-18] MEDS: Ipratropium/Albuterol Neb 3 ML IH SCH ×4 (00:06→11:07)
[2016-12-18] MEDS: Ondansetron 4 MG/2 ML VIAL IV PRN (03:08)
[2016-12-18] MEDS: 0.9 % Sodium Chloride 1,000 ML IVC SCH ×2 (03:11→16:27)
[2016-12-18] MEDS: *HR* Heparin 5,000 UNIT/ML VIAL SQ SCH ×2 (05:54→17:27)
[2016-12-18] MEDS ORDERED: Ampicillin/Sulbactam 1,500 MG in 0.9 % Sodium Chloride Mini Bag 100 ML IVPB SCH ×2 (06:00→14:00)
[2016-12-18] MEDS: *HR* OxyCODONE Immed Rel 5 MG TABLET PO PRN ×3 (06:11→21:38)
[2016-12-18] MEDS: Insulin LISPRO 300 UNITS/3 ML VIAL SQ SCH ×4 (08:30→22:48)
[2016-12-18] MEDS: Furosemide 40 MG TABLET PO SCH (08:31)
[2016-12-18] MEDS: Gabapentin 300 MG CAPSULE PO SCH ×3 (08:31→21:38)
[2016-12-18] MEDS: amLODIPine 5 MG TABLET PO SCH (08:31)
[2016-12-18] MEDS: Aspirin Enteric Coated 81 MG Tablet PO SCH (08:31)
[2016-12-18 09:06] LABS: Basophils # 0.1 K/mcL (0.0-0.2); Basophils % 0.6 %; Eosinophils # 0.1 K/mcL (0.0-0.6); Eosinophils % 0.8 %; Hematocrit 26.6 % (37.5-50.1); Hemoglobin 8.3 g/dL (12.9-16.9); Immature Granulocytes % 0.6 % (0-4); Lymphocytes # 1.5 K/mcL (0.6-4.6); Lymphocytes % 17.3 %; Mean Corpuscular HGB Conc 31.2 g/dL (31.6-35.5); Mean Corpuscular Hemoglobin 26.7 pg (28.0-33.3); Mean Corpuscular Volume 85.5 fL (83.0-100.0); Mean Platelet Volume 9.4 fL (9.4-12.4); Monocytes # 0.8 K/mcL (0.0-1.3); Monocytes % 9.6 %; Platelet Count 325 K/mcL (140-400); Red Blood Count 3.11 M/mcL (4.19-5.50); Red Cell Distribution Width 16.1 % (11.5-14.5); Segmented Neutrophils % 71.1 %
[2016-12-18 09:19] LABS: Potassium 4.4 mEq/L (3.5-4.5)
[2016-12-18] MEDS ORDERED: Ipratropium/Albuterol Neb 3 ML IH PRN (13:47)
--- NOTE | 2016-12-18 15:51 | Electrocardiograph Report ---
[place] [id number] Test Date: 2016-12-17 Pat Name: Nikita Regalado Department: 115 Room: 3A11 Gender: M Cloth Checker: : 1955 Requested By: Alfredo Loera Order Number: [id number] Reading MD: Iman Gonzalez Measurements Intervals [place] Rate: 64 P: 26 IA: 161 QRS: 7 QRSD: 85 T: 25 QT: 401 QTc: 410 Interpretive Statements SINUS RHYTHM Electronically Signed On 12-18-2016 15:50:16 EDT by Iman Gonzalez
--- NOTE | 2016-12-18 17:36 | Internal Med Progress Note ---
Date of Encounter: 12/18/16 Time of Encounter: 17:33 - Assessment and plan (1) Metabolic encephalopathy Current Visit: Yes Status: Resolved Assessment and plan: currently alert, awake and oriented. etiolgy possible multifactorial including acute COPD exacerbation, acute pulmonary edema, acute diastolic CHF, metabolic encephalopathy with aspiration pneumonia, pulmonary edema. currently resolved. DDx also includes polypharmacy combined with DANY. renal function improving noted that patient is medically clear and awaiting for placement. Patient continues to have stable mental status (2) Myoclonic jerking Current Visit: Yes Status: Resolved Assessment and plan: While in the ICU, patient had abnormal limb jerking movements. He was also seen on the in the ED with abnormal extremity movements. Etiology unclear. electrolytes are normal According to prior notes, myoclonic jerking was related to his renal status. Neurology was consulted and has evaluated the patient. EEG showed no evidence of seizure activity. kristofer continue to monitor (3) Acute kidney injury superimposed on chronic kidney disease Current Visit: No Status: Acute Assessment and plan: stable at this time. (4) Osteomyelitis of foot, right, acute Current Visit: No Status: Acute Assessment and plan: Wound vac intact to the right foot, Continue wound vac to right foot. Ulceration to left foot appears to be healing, no evidence of bacterial infection. Continue wound care dressing changes as per podiatry Continue cam boot to RLE. Patient will f/u with Dr. Pace in wound care with in one week of discharge from the hospital. today , patient has completed 14 days of Unasyn and he has no fever or leucocytosis, will hence stop the antibiotics (5) Poorly controlled diabetes mellitus Current Visit: No Status: Chronic - Time Spent With Patient 25 - 35 minutes - Subjective Interval history: seen at the bedside, has spontaneous myoclonic jerks , otherwise denies any complains reports that he was placed on Bipap last night as his sats was low, as per the chart, the lowest noted is 87. no seizure like activities noted. sating fine on 2l. past records show that he has been stable on 2l and has never required BIPAP after extubation. at this time,i dont think he will necessitate BIPAP qualifictaion, will observe overnight for any desaturation. plan to be dc to [facility] once approved. - Constitutional Vitals: Temp Pulse Resp BP Pulse Ox 98.4 F 69 17 133/70 95 03/14/17 15:52 12/18/16 15:52 12/18/16 15:52 12/18/16 15:52 12/18/16 15:52 General appearance: Present: A&O X 3, pleasant, no acute distress, answers questions appropriately Exam: - Head Head exam: Present: atraumatic, normocephalic - Eye Eye exam: Present: PERRL, conjuntiva pink, sclera anicteric Pupils: Present: PERRL - Neck Neck exam general surgery: Present: supple, trachea midline. Absent: lymphadenopathy - Respiratory Respiratory exam: Present: CTAB. Absent: accessory muscle use, rales, rhonchi, wheezes - Cardiovascular Cardiovascular exam: Present: RRR, +S1, +S2. Absent: diastolic murmur, gallop, rubs, systolic murmur - GI/Abdominal GI/Abdominal exam: Present: normal bowel sounds, soft, no peritoneal signs. Absent: distended, tenderness - Extremities Exam Extremities exam: Present: warm, radial pulses palpable and symetrical. Absent : calf tenderness, cyanotic, pedal edema - Neurological Exam Neurological exam: Present: CN II-XII intact, oriented X3, no focal deficits. Absent: pronater drift, facial droop, speech deficit - Skin Skin exam: Present: dry, intact Internal Medicine: Result - Labs CBC & Chem 7: 12/18/16 08:26 12/18/16 08:26 Labs: Short CBC 12/18/16 Range/Units 08:26 WBC 8.5 (4.3-11.1) K/mcL Hgb 8.3 L (12.9-16.9) g/dL Hct 26.6 L (37.5-50.1) % Plt Count 325 (140-400) K/mcL Neutrophils # 6.0 (1.6-8.9) K/mcL BMP 12/18/16 08:26 Sodium 143 Potassium 4.4 Chloride 109 Carbon Dioxide 23 BUN 23 Creatinine 1.69 H Glucose 178 H Calcium 8.0 L - ABG Interpretation ABG results: ABG ABG pH 7.41 pH Units (7.32-7.45) 12/05/16 05:12 ABG pCO2 45 mmHg (35-45) 12/05/16 05:12 ABG pO2 80 mmHg (85-104) L 12/05/16 05:12 ABG O2 Saturation 96 % (95-98) 12/05/16 05:12 Consult Discharge Plan - Plan Referrals: Mark Coe MD [Primary Care Provider] - (PT IS GOING TO [facility] NO FOLLOW UP PCP APPOINTMENT NEEDED ) Isac Zuniga CNP [Advanced Practice Nurse] - 12/26/16 3:00 pm Prescriptions: Oxycodone HCl/Acetaminophen [Percocet 10-325 mg Tablet] 1 each PO Q4HR PRN #30 tablet PRN Reason: Pain Amoxicillin/Clavulanate [Augmentin] 875 mg PO BIDWM #8 tablet
[2016-12-18] MEDS: Insulin DETEMIR 100 UNIT/ML X5UNITS SQ SCH (22:45)
[2016-12-19] MEDS: 0.9 % Sodium Chloride 1,000 ML IVC SCH (05:17)
[2016-12-19] MEDS: *HR* Heparin 5,000 UNIT/ML VIAL SQ SCH ×2 (05:17→17:13)
[2016-12-19] MEDS: Aspirin Enteric Coated 81 MG Tablet PO SCH (08:05)
[2016-12-19] MEDS: Furosemide 40 MG TABLET PO SCH (08:05)
[2016-12-19] MEDS: Gabapentin 300 MG CAPSULE PO SCH (08:05)
[2016-12-19] MEDS: amLODIPine 5 MG TABLET PO SCH (08:05)
[2016-12-19] MEDS: Insulin LISPRO 300 UNITS/3 ML VIAL SQ SCH ×4 (08:06→22:04)
[2016-12-19 08:24] LABS: Basophils # 0.1 K/mcL (0.0-0.2); Basophils % 0.7 %; Eosinophils # 0.1 K/mcL (0.0-0.6); Eosinophils % 0.8 %; Hematocrit 25.3 % (37.5-50.1); Hemoglobin 7.9 g/dL (12.9-16.9); Immature Granulocytes % 0.6 % (0-4); Lymphocytes # 1.2 K/mcL (0.6-4.6); Lymphocytes % 14.4 %; Mean Corpuscular HGB Conc 31.2 g/dL (31.6-35.5); Mean Corpuscular Volume 86.3 fL (83.0-100.0); Mean Platelet Volume 9.3 fL (9.4-12.4); Monocytes # 1.1 K/mcL (0.0-1.3); Monocytes % 12.2 %; Neutrophils # 6.1 K/mcL (1.6-8.9); Platelet Count 272 K/mcL (140-400); Red Blood Count 2.93 M/mcL (4.19-5.50); Red Cell Distribution Width 15.9 % (11.5-14.5); Segmented Neutrophils % 71.3 %
[2016-12-19 08:37] LABS: Magnesium 1.2 mg/dL (1.6-2.6); Phosphorous 4.1 mg/dL (2.3-4.7)
[2016-12-19 08:38] LABS: Calcium 8.1 mg/dL (8.6-10.8); Potassium 4.5 mEq/L (3.5-4.5)
[2016-12-19] MEDS ORDERED: Magnesium Sulfate 2 GM in D5% in Water 100 ML IVPB ONE (10:15)
--- NOTE | 2016-12-19 14:13 | Internal Med Progress Note ---
Date of Encounter: 12/19/16 Time of Encounter: 14:10 - Assessment and plan (1) Metabolic encephalopathy Current Visit: Yes Status: Resolved Assessment and plan: currently alert, awake and oriented. etiology possible multifactorial including acute COPD exacerbation, acute pulmonary edema, acute diastolic CHF, metabolic encephalopathy with aspiration pneumonia, pulmonary edema. currently resolved. DDx also includes polypharmacy combined with DANY. renal function stable Patient continues to have stable mental status but sleeps a lot. per last neurolgy note, navid gabapentin was advised to be stopped, will dc that now. (2) Myoclonic jerking Current Visit: Yes Status: Resolved Assessment and plan: While in the ICU, patient had abnormal limb jerking movements. He was also seen on the in the ED with abnormal extremity movements. Etiology unclear. mag is low today, will replace According to prior notes, myoclonic jerking was related to his renal status. Neurology was consulted and has evaluated the patient. EEG showed no evidence of seizure activity. kristofer continue to monitor, keppra and gabapentin has been dc. (3) Acute kidney injury superimposed on chronic kidney disease Current Visit: No Status: Acute Assessment and plan: stable at this time. (4) Osteomyelitis of foot, right, acute Current Visit: No Status: Acute Assessment and plan: Wound vac intact to the right foot, Continue wound vac to right foot. Ulceration to left foot appears to be healing, no evidence of bacterial infection. Continue wound care dressing changes as per podiatry Continue cam boot to RLE. Patient will f/u with Dr. Pace in wound care with in one week of discharge from the hospital. today , patient has completed 14 days of Unasyn from this admission, and he has no fever or leucocytosis, will hence stop the antibiotics (5) Poorly controlled diabetes mellitus Current Visit: No Status: Chronic (6) Hypoxia Current Visit: Yes Status: Acute Assessment and plan: emanuel has COPD, ALIVIA, CHF and noted to de sat at night. he does well duirng the day when he is awake, he is currently sating 93% on 3-4 l. CXR doen today shows mild pulmonary congestion and cardiomegaly with no evidence of pneumonia. kristofer do night time BIPAP qualification today, possible dc tomm after approval to [facility]. - Time Spent With Patient 25 - 35 minutes - Subjective Interval history: seen at the bedside, has spontaneous myoclonic jerks , otherwise denies any complains noted that his sats was low again last night at 75 which went up yo 87 after bieng on 4l, currently sating 93 at 4 l no seizure like activities noted. will order BIPAP qualification overnight. plan to be dc to [facility] once approved. - Constitutional Vitals: Temp Pulse Resp BP Pulse Ox 97.6 F 67 18 144/65 91 L 12/19/16 10:34 12/19/16 10:34 12/19/16 10:34 12/19/16 10:34 12/19/16 10:34 General appearance: Present: A&O X 3, pleasant, no acute distress, answers questions appropriately Exam: - Head Head exam: Present: atraumatic, normocephalic - Eye Eye exam: Present: PERRL, conjuntiva pink, sclera anicteric Pupils: Present: PERRL - Neck Neck exam general surgery: Present: supple, trachea midline. Absent: lymphadenopathy - Respiratory Respiratory exam: Present: CTAB. Absent: accessory muscle use, rales, rhonchi, wheezes - Cardiovascular Cardiovascular exam: Present: RRR, +S1, +S2. Absent: diastolic murmur, gallop, rubs, systolic murmur - GI/Abdominal GI/Abdominal exam: Present: normal bowel sounds, soft, no peritoneal signs. Absent: distended, tenderness - Extremities Exam Extremities exam: Present: warm, radial pulses palpable and symetrical. Absent : calf tenderness, cyanotic, pedal edema - Neurological Exam Neurological exam: Present: CN II-XII intact, oriented X3, no focal deficits. Absent: pronater drift, facial droop, speech deficit - Skin Skin exam: Present: dry, intact Internal Medicine: Result - Labs CBC & Chem 7: 12/19/16 08:18 12/19/16 08:18 Labs: Short CBC 12/19/16 Range/Units 08:18 WBC 8.6 (4.3-11.1) K/mcL Hgb 7.9 L (12.9-16.9) g/dL Hct 25.3 L (37.5-50.1) % Plt Count 272 (140-400) K/mcL Neutrophils # 6.1 (1.6-8.9) K/mcL BMP 12/19/16 08:18 Sodium 143 Potassium 4.5 Chloride 112 H Carbon Dioxide 20 BUN 26 Creatinine 1.68 H Glucose 182 H Calcium 8.1 L - ABG Interpretation ABG results: ABG ABG pH 7.41 pH Units (7.32-7.45) 12/05/16 05:12 ABG pCO2 45 mmHg (35-45) 12/05/16 05:12 ABG pO2 80 mmHg (85-104) L 12/05/16 05:12 ABG O2 Saturation 96 % (95-98) 12/05/16 05:12 - Impressions Impressions Chest X-Ray 12/19/16 07:55 IMPRESSION: Cardiomegaly with mild interstitial edema. D/ / Emelia Solis MD / Emelia Solis MD Interpreting Provider: Emelia Solis MD Consult Discharge Plan - Plan Referrals: Mark Coe MD [Primary Care Provider] - ([facility]ING TO [facility] NO FOLLOW UP PCP APPOINTMENT NEEDED ) Isac Zuniga, KULWANT [Advanced Practice Nurse] - 12/26/16 3:00 pm Prescriptions: Oxycodone HCl/Acetaminophen [Percocet 10-325 mg Tablet] 1 each PO Q4HR PRN #30 tablet PRN Reason: Pain Amoxicillin/Clavulanate [Augmentin] 875 mg PO BIDWM #8 tablet
--- NOTE | 2016-12-19 16:25 | Podiatry Progress Note ---
Date of Encounter: 12/19/16 Time of Encounter: 11:30 - Assessment and Plan (1) Diabetic ulcer of both feet associated with type 2 diabetes mellitus Current Visit: No Status: Acute Examined at bedside Wound vac removed Sutures removed, cleansed wound with saline Black granufoam replaced and VAC sealed without leak Wrapped in kerlex for protection, patient tolerated well Ulcer to left foot unchanged since last visit. Please continue daily changes with adaptic, 4x4 and kerlex Patient [facility] with wound vac No clinical signs of infection to wound Please consult SW for follow with VAC non weight bearing to right foot please call with any clinical signs of infection or worsening of wounds Once discharged, please make appointment for follow up in wound care clinic with in 2 weeks. (2) Foot ulcer with fat layer exposed Current Visit: No Status: Acute (3) Peripheral vascular disease due to secondary diabetes Current Visit: No Status: Acute Subjective Principal diagnosis: Acute respiratory failure, PEA arrest Interval history: Mr. Regalado is a 61 year old male who was readmitted to hospital with AMS, tremors and spo2 60%. Patient has remained admitted due to continued altered mental status and respiratory distress. Patient is s/p incision and drainage to bone cortex for osteomyelitis #5 metatarsal right, open amputation of toe #5 with metatarsal #5 right foot, application wound VAC by Dr. Pace on 11/06/16. Wound vac was removed on readmission. Wound vac was replaced on 12/09/16. No c/o pain to his feet, no fever or chills overnight. Patient is resting comfortably at this time. Lethargic. Does not maintain wakeful state. Awakens, will answer a question at times and drift back to sleep. Wound vac beeping upon entering room, patient restless and has rolled wound vac dressing, not suctioned down. Nurse states that same thing happened during night and dressing had to be reenforced. No drainage noted to canister at this time. Objective - Vital Signs Vital Signs: Vital Signs Temp Pulse Resp BP Pulse Ox 12/19/16 15:20 97.8 F 63 18 155/73 95 12/19/16 10:34 97.6 F 67 18 144/65 91 L 12/19/16 07:00 98.2 F 62 18 131/68 91 L 12/19/16 04:57 98.6 F 63 18 135/64 90 L 12/19/16 00:47 98.8 F 67 14 151/67 95 12/18/16 19:03 98.7 F 64 16 143/64 95 Intake and Output 12/19/16 12/19/16 12/19/16 07:59 15:59 23:59 Intake Total 1000 / 1000 480 / 480 Output Total 0 / 0 325 / 325 Balance 1000 / 1000 155 / 155 Intake: IV Fluids 1000 / 1000 0.9 % Sodium Chloride 1, 1000 / 1000 000 ML @ 75 mls/hr IVC . [id number] ALEX Rx#: [id number] Oral 0 / 0 480 / 480 Output: Urine 0 / 0 325 / 325 Other: Meal Lunch Percent of Meal Consumed 90% # Bowel Movements 0 Weight 115.1 kg Blood Glucose* 203 129 238 Patient Weight 12/19/16 23:59 Weight 115.1 kg - Exam Exam: Podiatry General Exam: General appearance: alert at times. Lethargic. Quickly drifts back to sleep. Vascular: Pedal pulses faint DP/PT , No evidence of cyanosis, pallor or rubor, Edema graded at 1+/4, Skin Temperature warm, No calf pain with manual compression. capillary refill time is immediate to digits. Neurologic: Sensation intact with moderate touch to foot Postop Exam: Wound vac removed. There were remaining sutures to distal aspect of wound, removed at this time x4. Patient tolerated well. Wound bed clean of clinical signs of infection. No warmth, drainage, erythema, edema, streaking or odor. Appears to be healing. Yellow fibrous tissue remains to wound bed. Wound measuring 5cmL, 2.4cmw and 0.3cm D. - Lab Result Diagrams: 12/19/16 08:18 12/19/16 08:18 Labs: Abnormal lab results RBC 2.93 M/mcL (4.19-5.50) L 12/19/16 08:18 Hgb 7.9 g/dL (12.9-16.9) L 12/19/16 08:18 Hct 25.3 % (37.5-50.1) L 12/19/16 08:18 MCH 27.0 pg (28.0-33.3) L 12/19/16 08:18 MCHC 31.2 g/dL (31.6-35.5) L 12/19/16 08:18 RDW 15.9 % (11.5-14.5) H 12/19/16 08:18 MPV 9.3 fL (9.4-12.4) L 12/19/16 08:18 ABG pO2 80 mmHg (85-104) L 12/05/16 05:12 ABG HCO3 28.5 mEQ/L (21-27) H 12/05/16 05:12 ABG Total CO2 29.9 mEq/L (20-26) H 12/05/16 05:12 ABG Base Excess 3.5 mEq/L (-2.0 to 3.0) H 12/05/16 05:12 Chloride 112 mEq/L (98-109) H 12/19/16 08:18 Creatinine 1.68 mg/dL (0.72-1.25) H 12/19/16 08:18 Est GFR ( Amer) 51 (> 60) L 12/19/16 08:18 Est GFR (Non-Af Amer) 42 (> 60) L 12/19/16 08:18 Glucose 182 mg/dL (70-99) H 12/19/16 08:18 POC Glucose 129 (58-89) H 12/19/16 11:29 Calculated Osmolality 305 (280-300) H 12/19/16 08:18 Calcium 8.1 mg/dL (8.6-10.8) L 12/19/16 08:18 Magnesium 1.2 mg/dL (1.6-2.6) L 12/19/16 08:18 B-Natriuretic Peptide 365 pg/mL (0-100) H 12/02/16 12:23 Albumin 2.6 g/dL (3.5-5.0) L 12/17/16 05:00 Albumin/Globulin Ratio 0.8 (1.1-2.2) L 12/17/16 05:00 Urine Clarity Cloudy (Clear) A 12/02/16 12:27 Urine Protein >=300 mg/dL (Neg-Trace) H 12/02/16 12:27 Urine Glucose (UA) 250 mg/dL (Normal) H 12/02/16 12:27 Urine Ketones Trace mg/dL (Negative) H 12/02/16 12:27 Urine Blood Large (Negative) H 12/02/16 12:27 Urine Microscopic RBC 15-30 per hpf (0-3) H 12/02/16 12:27 Urine Microscopic WBC 5-15 per hpf (0-3) H 12/02/16 12:27 Ur Squamous Epith Cells Many per lpf (None-Few) H 12/02/16 12:27 Ur Culture Indicated? YES (NO) A 12/02/16 12:27 Stool Occult Blood Positive (Negative) A 12/03/16 14:06 Gabapentin <0.5 ug/mL (2.0-20.0) L 12/02/16 Unknown Microbiology, Last 48 Hours 12/17/16 21:51 Blood Culture - Preliminary Peripheral Venipuncture No growth. 12/17/16 20:42 Blood Culture - Preliminary Peripheral Venipuncture No growth. Consult Discharge Plan - Plan Referrals: Mark Coe MD [Primary Care Provider] - (PT IS GOING TO [facility] NO FOLLOW UP PCP APPOINTMENT NEEDED ) Isac Zuniga, AGRIBUSINESS PROFESSOR [Advanced Practice Nurse] - 12/26/16 3:00 pm Prescriptions: Amoxicillin/Clavulanate [Augmentin] 875 mg PO BIDWM #8 tablet Oxycodone HCl/Acetaminophen [Percocet 10-325 mg Tablet] 1 each PO Q4HR PRN #30 tablet PRN Reason: Pain
[2016-12-19] MEDS: Insulin DETEMIR 100 UNIT/ML X5UNITS SQ SCH (22:03)
[2016-12-19] MEDS: *HR* OxyCODONE Immed Rel 5 MG TABLET PO PRN (23:21)
[2016-12-20] MEDS: *HR* Heparin 5,000 UNIT/ML VIAL SQ SCH ×2 (05:42→17:27)
[2016-12-20] MEDS: amLODIPine 5 MG TABLET PO SCH (08:13)
[2016-12-20] MEDS: Furosemide 40 MG TABLET PO SCH (08:13)
[2016-12-20] MEDS: Aspirin Enteric Coated 81 MG Tablet PO SCH (08:13)
[2016-12-20] MEDS: Insulin LISPRO 300 UNITS/3 ML VIAL SQ SCH ×4 (08:15→20:22)
[2016-12-20] MEDS: *HR* OxyCODONE Immed Rel 5 MG TABLET PO PRN ×3 (08:21→22:02)
[2016-12-20 09:03] LABS: Basophils # 0.1 K/mcL (0.0-0.2); Basophils % 0.9 %; Eosinophils # 0.1 K/mcL (0.0-0.6); Eosinophils % 1.6 %; Hematocrit 24.6 % (37.5-50.1); Hemoglobin 7.8 g/dL (12.9-16.9); Immature Granulocytes % 0.4 % (0-4); Lymphocytes # 1.6 K/mcL (0.6-4.6); Lymphocytes % 22.9 %; Mean Corpuscular HGB Conc 31.7 g/dL (31.6-35.5); Mean Corpuscular Volume 85.1 fL (83.0-100.0); Mean Platelet Volume 9.9 fL (9.4-12.4); Monocytes # 0.8 K/mcL (0.0-1.3); Monocytes % 11.7 %; Neutrophils # 4.3 K/mcL (1.6-8.9); Platelet Count 289 K/mcL (140-400); Red Blood Count 2.89 M/mcL (4.19-5.50); Red Cell Distribution Width 15.8 % (11.5-14.5); Segmented Neutrophils % 62.5 %
[2016-12-20 09:16] LABS: Calcium 8.3 mg/dL (8.6-10.8); Potassium 4.3 mEq/L (3.5-4.5)
--- NOTE | 2016-12-20 16:40 | Internal Med Progress Note ---
Date of Encounter: 12/20/16 Time of Encounter: 16:38 - Assessment and plan (1) Metabolic encephalopathy Current Visit: Yes Status: Resolved Assessment and plan: currently alert, awake and oriented. etiology possible multifactorial including acute COPD exacerbation, acute pulmonary edema, acute diastolic CHF, metabolic encephalopathy with aspiration pneumonia, pulmonary edema. currently resolved. DDx also includes polypharmacy combined with DANY. renal function stable Patient continues to have stable mental status . (2) Myoclonic jerking Current Visit: Yes Status: Resolved Assessment and plan: While in the ICU, patient had abnormal limb jerking movements. He was also seen on the in the ED with abnormal extremity movements. Etiology unclear. mag is low today, will replace According to prior notes, myoclonic jerking was related to his renal status. Neurology was consulted and has evaluated the patient. EEG showed no evidence of seizure activity. kristofer continue to monitor, keppra and gabapentin has been dc. (3) Acute kidney injury superimposed on chronic kidney disease Current Visit: No Status: Acute Assessment and plan: stable at this time. (4) Osteomyelitis of foot, right, acute Current Visit: No Status: Acute Assessment and plan: Wound vac intact to the right foot, Continue wound vac to right foot. Ulceration to left foot appears to be healing, no evidence of bacterial infection. Continue wound care dressing changes as per podiatry Continue cam boot to RLE. Patient will f/u with Dr. Pace in wound care with in one week of discharge from the hospital. antibiotics has been stopped. (5) Poorly controlled diabetes mellitus Current Visit: No Status: Chronic (6) Hypoxia Current Visit: Yes Status: Acute Assessment and plan: emanuel has COPD, ALIVIA, CHF was noted to de sat at night time. he does well duirng the day when he is awake, he is currently sating 93% on 3-4 l. CXR doen today shows mild pulmonary congestion and cardiomegaly with no evidence of pneumonia. does need BIPAP qualification today, possible dc tom after approval to [facility]. - Time Spent With Patient 25 - 35 minutes - Subjective Interval history: seen at the bedside, has spontaneous myoclonic jerks , otherwise denies any complains currently sating 93 at 4 l, BIPAP qualification was not completed last night due to technical issues. no seizure like activities noted. plan to be dc to [facility] once approved. - Constitutional Vitals: Temp Pulse Resp BP Pulse Ox 97.6 F 58 16 123/70 91 L 12/20/16 15:49 12/20/16 15:49 12/20/16 15:49 12/20/16 15:49 12/20/16 15:49 General appearance: Present: A&O X 3, pleasant, no acute distress, answers questions appropriately Exam: neck- supple chest- b/l clear, no added sounds CVS-s1 and s2, no mr//g abd-soft, non tender, bs are present ext- no edema, neuro- no focal deficit, alert and awake and orineted. Internal Medicine: Result - Labs CBC & Chem 7: 12/20/16 08:31 12/20/16 08:31 Labs: Short CBC 12/20/16 Range/Units 08:31 WBC 6.9 (4.3-11.1) K/mcL Hgb 7.8 L (12.9-16.9) g/dL Hct 24.6 L (37.5-50.1) % Plt Count 289 (140-400) K/mcL Neutrophils # 4.3 (1.6-8.9) K/mcL BMP 12/20/16 08:31 Sodium 142 Potassium 4.3 Chloride 110 H Carbon Dioxide 23 BUN 24 Creatinine 1.59 H Glucose 188 H Calcium 8.3 L - ABG Interpretation ABG results: ABG ABG pH 7.41 pH Units (7.32-7.45) 12/05/16 05:12 ABG pCO2 45 mmHg (35-45) 12/05/16 05:12 ABG pO2 80 mmHg (85-104) L 12/05/16 05:12 ABG O2 Saturation 96 % (95-98) 12/05/16 05:12 Consult Discharge Plan - Plan Referrals: Mark Coe MD [Primary Care Provider] - (PT IS GOING TO ECF NO FOLLOW UP PCP APPOINTMENT NEEDED ) Isac Zuniga, AIRLINE HOSTESS [Advanced Practice Nurse] - 12/26/16 3:00 pm Prescriptions: Oxycodone HCl/Acetaminophen [Percocet 10-325 mg Tablet] 1 each PO Q4HR PRN #30 tablet PRN Reason: Pain Amoxicillin/Clavulanate [Augmentin] 875 mg PO BIDWM #8 tablet
[2016-12-20] MEDS: Insulin DETEMIR 100 UNIT/ML X5UNITS SQ SCH (20:21)
[2016-12-21] MEDS: *HR* OxyCODONE Immed Rel 5 MG TABLET PO PRN ×4 (05:06→23:41)
[2016-12-21] MEDS: *HR* Heparin 5,000 UNIT/ML VIAL SQ SCH ×2 (05:07→16:36)
[2016-12-21] MEDS: amLODIPine 5 MG TABLET PO SCH (09:51)
[2016-12-21] MEDS: Aspirin Enteric Coated 81 MG Tablet PO SCH (09:51)
[2016-12-21] MEDS: Furosemide 40 MG TABLET PO SCH (09:51)
[2016-12-21] MEDS: Insulin LISPRO 300 UNITS/3 ML VIAL SQ SCH ×4 (09:52→20:55)
--- NOTE | 2016-12-21 11:17 | Internal Med Progress Note ---
Date of Encounter: 12/21/16 Time of Encounter: 11:20 - Assessment and plan (1) Metabolic encephalopathy Current Visit: Yes Status: Acute Assessment and plan: Episodes of waxing and waning of mental status but it has improved since admission. Multifactorial etiology due to cardiac arrest, aspiration pneumonia, acute diastolic HF, DANY and polypharmacy. 12/16: CT head showed no acute process. old lacunar infarct in the left basal basal ganglia. treat underlying etiology. continue to monitor. (2) Acute respiratory failure with hypoxia Current Visit: Yes Status: Acute Assessment and plan: Improved. required mechanical ventilation and underwent bronchoscopy with large mucous plug suctioned out of the left main bronchial airway. He completed Unasyn course. Successfully extubated and tolerating 2L NC well. Multifactorial etiology due to acute pulmonary edema, aspiration pneumonia, and metabolic encephalopathy. 12/19: chest x ray shows mild pulmonary edema. continue lasix and nebs prn. (3) Cardiac arrest Current Visit: No Status: Resolved Assessment and plan: On admission, 12/02: PEA arrest in the setting of hypoxia during intubation. ROSC after one round of CPR. Second event of PEA in one month. Both occurred during hypoxic events. (4) Acute worsening of stage 3 chronic kidney disease Current Visit: Yes Status: Acute Assessment and plan: pre-renal due to infection, hypoxemia and PEA arrest. resolved. kidney function at baseline. avoid nephrotoxins as possible. (5) Acute diastolic heart failure Current Visit: Yes Status: Acute Assessment and plan: 11/17/16- EF 60-65%, indeterminate diastolic dysfunction. Mild MR, mild TR. Patient is euvolemic. will decrease oral lasix to 20 mg bid (6) Aspiration pneumonia Current Visit: Yes Status: Acute Assessment and plan: completed Unasyn course. resolved. Qualifiers: Aspiration pneumonia type: due to regurgitated food Laterality: bilateral Lung location: lower lobe of lung Qualified Code(s): J69.0 - Pneumonitis due to inhalation of food and vomit (7) COPD (chronic obstructive pulmonary disease) Current Visit: No Status: Chronic Assessment and plan: stable. nebs prn Qualifiers: COPD type: unspecified COPD Qualified Code(s): J44.9 - Chronic obstructive pulmonary disease, unspecified (8) Myoclonic jerking Current Visit: Yes Status: Resolved Assessment and plan: clinically improving. Since admission, patient had abnormal limb jerking movements. Neurology consulted and possible myoclonus is secondary to renal failure, and polypharmacy (gabapentin and keppra). No seizure. Keppra and gabapentin were stopped. EEG was unremarkable. (9) Osteomyelitis of foot, right, acute Current Visit: No Status: Acute Assessment and plan: Wound vac intact to the right foot, Continue wound vac to right foot. Ulceration to left foot appears to be healing, no evidence of bacterial infection. Continue wound care dressing changes as per podiatry Continue cam boot to RLE. Patient will f/u with Dr. Pace in wound care with in one week of discharge from the hospital. (10) Polypharmacy Current Visit: Yes Status: Acute Assessment and plan: holding gabapentin, trazadone, keppra, and hydrozyzine. (11) Poorly controlled diabetes mellitus Current Visit: No Status: Chronic Assessment and plan: fasting glucose 194. poor diet intake. change levemir 10 bid. sliding scale insulin. diabetic diet. (12) Hypomagnesemia Current Visit: Yes Status: Acute Assessment and plan: replete (13) Tobacco abuse Current Visit: No Status: Chronic Assessment and plan: will counseled when mental status back to baseline. (14) Obesity (BMI 30.0-34.9) Current Visit: No Status: Chronic Assessment and plan: bmi 34. - Subjective Interval history: Patient reports no appetite. He ate no food yesterday and today only 5% of his breakfast. Nurse reports, the patient pulled 3 toenails overnight and was very agitated this morning. Pt complains of pain at his left rib site. - Constitutional Vitals: Temp Pulse Resp BP Pulse Ox 98.1 F 62 18 134/62 94 L 12/21/16 08:06 12/21/16 08:06 12/21/16 08:06 12/21/16 08:06 12/21/16 08:06 General appearance: Present: cooperative, A&O X 3, pleasant, no acute distress, answers questions appropriately - Eye Eye exam: Present: PERRL, sclera anicteric - Neck Neck exam general surgery: Present: supple, trachea midline. Absent: lymphadenopathy - Respiratory Respiratory exam: Present: CTAB - Cardiovascular Cardiovascular exam: Present: RRR - GI/Abdominal GI/Abdominal exam: Present: normal bowel sounds, soft. Absent: distended, tenderness - Extremities Exam Extremities exam: Absent: pedal edema - Back Exam Back exam: Absent: CVA tenderness (L), CVA tenderness (R) - Neurological Exam Neurological exam: Present: alert. Absent: facial droop, speech deficit Additional comments: oriented to person, and place. pt follows commands and moves all extremities. - Skin Additional comments: coccyx ulcer with purulent discharge. left plantar ulcer with scar. right foot with wound vac. Internal Medicine: Result - Labs CBC & Chem 7: 12/21/16 11:00 12/21/16 11:00 - ABG Interpretation ABG results: ABG ABG pH 7.41 pH Units (7.32-7.45) 12/05/16 05:12 ABG pCO2 45 mmHg (35-45) 12/05/16 05:12 ABG pO2 80 mmHg (85-104) L 12/05/16 05:12 ABG O2 Saturation 96 % (95-98) 12/05/16 05:12 Consult Discharge Plan - Plan Referrals: Mark Coe MD [Primary Care Provider] - (PT IS GOING TO [facility] NO FOLLOW UP PCP APPOINTMENT NEEDED ) Isac Zuniga CNP [Advanced Practice Nurse] - 12/26/16 3:00 pm Prescriptions: Oxycodone HCl/Acetaminophen [Percocet 10-325 mg Tablet] 1 each PO Q4HR PRN #30 tablet PRN Reason: Pain Amoxicillin/Clavulanate [Augmentin] 875 mg PO BIDWM #8 tablet
[2016-12-21 11:31] LABS: Basophils # 0.1 K/mcL (0.0-0.2); Basophils % 0.7 %; Eosinophils # 0.1 K/mcL (0.0-0.6); Eosinophils % 1.4 %; Hematocrit 25.7 % (37.5-50.1); Hemoglobin 8.1 g/dL (12.9-16.9); Immature Granulocytes % 0.6 % (0-4); Lymphocytes # 1.3 K/mcL (0.6-4.6); Lymphocytes % 18.4 %; Mean Corpuscular HGB Conc 31.5 g/dL (31.6-35.5); Mean Corpuscular Hemoglobin 27.1 pg (28.0-33.3); Mean Platelet Volume 9.9 fL (9.4-12.4); Monocytes # 0.7 K/mcL (0.0-1.3); Monocytes % 9.9 %; Neutrophils # 4.9 K/mcL (1.6-8.9); Platelet Count 292 K/mcL (140-400); Red Blood Count 2.99 M/mcL (4.19-5.50); Red Cell Distribution Width 15.9 % (11.5-14.5)
[2016-12-21 11:42] LABS: Calcium 8.8 mg/dL (8.6-10.8); Magnesium 1.4 mg/dL (1.6-2.6); Potassium 4.3 mEq/L (3.5-4.5)
[2016-12-21] MEDS: Insulin DETEMIR 100 UNIT/ML X5UNITS SQ SCH (21:56)
[2016-12-22] MEDS ORDERED: Haloperidol Lactate 5 MG/ML VIAL IM STA (00:45)
[2016-12-22] MEDS ORDERED: traZODone 50 MG TABLET PO SCH (00:45)
[2016-12-22] MEDS ORDERED: *HR* LORazepam 2 MG/ML VIAL IM STA (00:45)
[2016-12-22] MEDS ORDERED: rOPINIRole 1 MG TABLET PO SCH (00:45)
[2016-12-22 04:27] LABS: ABG Base Excess 3.6 mEq/L (-2.0 to 3.0); ABG HCO3 28.5 mEQ/L (21-27); ABG Oxygen Saturation 84 % (95-98); ABG PCO2 44 mmHg (35-45); ABG PH 7.42 pH Units (7.32-7.45); ABG TCO2 29.9 mEq/L (20-26)
[2016-12-22 04:28] LABS: ABG PO2 48 mmHg (85-104); Blood Gas FiO2 21 %
[2016-12-22 05:43] LABS: Basophils # 0.1 K/mcL (0.0-0.2); Basophils % 0.9 %; Eosinophils # 0.1 K/mcL (0.0-0.6); Eosinophils % 1.6 %; Hematocrit 27.7 % (37.5-50.1); Hemoglobin 8.6 g/dL (12.9-16.9); Immature Granulocytes % 0.6 % (0-4); Lymphocytes # 1.9 K/mcL (0.6-4.6); Lymphocytes % 28.2 %; Mean Corpuscular Hemoglobin 26.7 pg (28.0-33.3); Mean Platelet Volume 9.6 fL (9.4-12.4); Monocytes # 0.6 K/mcL (0.0-1.3); Monocytes % 9.5 %; Platelet Count 319 K/mcL (140-400); Red Blood Count 3.22 M/mcL (4.19-5.50); Red Cell Distribution Width 15.8 % (11.5-14.5); Segmented Neutrophils % 59.2 %
[2016-12-22 05:57] LABS: Calcium 9.1 mg/dL (8.6-10.8); Magnesium 1.4 mg/dL (1.6-2.6); Phosphorous 3.2 mg/dL (2.3-4.7); Potassium 4.1 mEq/L (3.5-4.5)
[2016-12-22] MEDS ORDERED: levETIRAcetam 250 MG TABLET PO SCH (06:00)
[2016-12-22] MEDS: *HR* Heparin 5,000 UNIT/ML VIAL SQ SCH ×3 (06:04→18:31)
[2016-12-22] MEDS ORDERED: Furosemide 20 MG TABLET PO SCH (08:00)
[2016-12-22] MEDS: *HR* OxyCODONE Immed Rel 5 MG TABLET PO PRN ×2 (08:06→18:18)
[2016-12-22] MEDS ORDERED: Haloperidol Lactate 5 MG/ML VIAL ONE ×2 (08:06→14:35)
[2016-12-22] MEDS: Vitamin B Complex/Vit C/Vit E 1 EACH TABLET PO SCH (08:14)
[2016-12-22] MEDS: Thiamine (B-1) 100 MG TABLET PO SCH (08:14)
[2016-12-22] MEDS: Insulin DETEMIR 100 UNIT/ML X5UNITS SQ SCH ×2 (08:14→23:08)
[2016-12-22] MEDS: Aspirin Enteric Coated 81 MG Tablet PO SCH (08:15)
[2016-12-22] MEDS: Insulin LISPRO 300 UNITS/3 ML VIAL SQ SCH ×4 (08:16→22:58)
[2016-12-22] MEDS: Folic Acid 1 MG TABLET PO SCH (08:16)
[2016-12-22] MEDS: amLODIPine 5 MG TABLET PO SCH (08:17)
[2016-12-22] MEDS ORDERED: Thiamine (B-1) 200 MG/2 ML VIAL IM ONE (09:00)
[2016-12-22] MEDS ORDERED: Gabapentin 300 MG CAPSULE PO SCH (09:00)
[2016-12-22] MEDS ORDERED: hydrOXYzine pamoate 25 MG CAPSULE PO SCH (09:00)
[2016-12-22] MEDS: Magnesium Oxide 400 MG TABLET PO SCH ×2 (13:13→23:07)
[2016-12-22] MEDS ORDERED: Haloperidol Lactate 5 MG/ML VIAL IM ONE ×2 (14:31→22:45)
--- NOTE | 2016-12-22 14:51 | Internal Med Progress Note ---
Date of Encounter: 12/22/16 Time of Encounter: 10:00 - Assessment and plan (1) Metabolic encephalopathy Current Visit: Yes Status: Acute Assessment and plan: Episodes of waxing and waning of mental status but it has improved since admission. Multifactorial etiology due to cardiac arrest, aspiration pneumonia, acute diastolic HF, DANY and polypharmacy. 12/16: CT head showed no acute process. old lacunar infarct in the left basal basal ganglia. 12/22: very agitated at times. no fever. signs of infection. could be secondary to stopping gabapentin. start seroquel bid. haldol IM as needed. continue to monitor. (2) Acute respiratory failure with hypoxia Current Visit: Yes Status: Acute Assessment and plan: Improved. required mechanical ventilation and underwent bronchoscopy with large mucous plug suctioned out of the left main bronchial airway. He completed Unasyn course. Successfully extubated and tolerating 2L NC well. Multifactorial etiology due to acute pulmonary edema, aspiration pneumonia, and metabolic encephalopathy. 12/19: chest x ray shows mild pulmonary edema. continue lasix and nebs prn. (3) Cardiac arrest Current Visit: No Status: Resolved Assessment and plan: On admission, 12/02: PEA arrest in the setting of hypoxia during intubation. ROSC after one round of CPR. Second event of PEA in one month. Both occurred during hypoxic events. (4) Acute worsening of stage 3 chronic kidney disease Current Visit: Yes Status: Acute Assessment and plan: pre-renal due to infection, hypoxemia and PEA arrest. resolved. kidney function at baseline. avoid nephrotoxins as possible. (5) Acute diastolic heart failure Current Visit: Yes Status: Acute Assessment and plan: 11/17/16- EF 60-65%, indeterminate diastolic dysfunction. Mild MR, mild TR. Patient is euvolemic. will decrease oral lasix to 20 mg bid (6) Aspiration pneumonia Current Visit: Yes Status: Acute Assessment and plan: completed Unasyn course. resolved. Qualifiers: Aspiration pneumonia type: due to regurgitated food Laterality: bilateral Lung location: lower lobe of lung Qualified Code(s): J69.0 - Pneumonitis due to inhalation of food and vomit (7) COPD (chronic obstructive pulmonary disease) Current Visit: No Status: Chronic Assessment and plan: stable. nebs prn Qualifiers: COPD type: unspecified COPD Qualified Code(s): J44.9 - Chronic obstructive pulmonary disease, unspecified (8) Myoclonic jerking Current Visit: Yes Status: Resolved Assessment and plan: clinically improving. Since admission, patient had abnormal limb jerking movements. Neurology consulted and possible myoclonus is secondary to renal failure, and polypharmacy (gabapentin and keppra). No seizure. Keppra and gabapentin were stopped. EEG was unremarkable. (9) Osteomyelitis of foot, right, acute Current Visit: No Status: Acute Assessment and plan: Wound vac intact to the right foot, Continue wound vac to right foot. Ulceration to left foot appears to be healing, no evidence of bacterial infection. Continue wound care dressing changes as per podiatry Continue cam boot to RLE. Patient will f/u with Dr. Pace in wound care with in one week of discharge from the hospital. (10) Polypharmacy Current Visit: Yes Status: Acute Assessment and plan: holding gabapentin, trazadone, keppra, and hydrozyzine. (11) Poorly controlled diabetes mellitus Current Visit: No Status: Chronic Assessment and plan: fasting glucose 194. poor diet intake. change levemir 10 bid. sliding scale insulin. diabetic diet. (12) Hypomagnesemia Current Visit: Yes Status: Acute Assessment and plan: replete (13) Tobacco abuse Current Visit: No Status: Chronic Assessment and plan: will counseled when mental status back to baseline. (14) Obesity (BMI 30.0-34.9) Current Visit: No Status: Chronic Assessment and plan: bmi 34. - Subjective Interval history: Patient still agitated at times. 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 Upon my examination, he is AOx2 and following all commands. He could not recall pulling his IV access. - Constitutional Vitals: Temp Pulse Resp BP Pulse Ox 97.8 F 61 20 126/67 94 L 12/22/16 10:40 12/22/16 10:40 12/22/16 10:40 12/22/16 10:40 12/22/16 10:40 General appearance: Present: cooperative, A&O X 2, pleasant, no acute distress, answers questions appropriately Exam: Patient seems very sensitive to light touch of his legs, and chest. He denies any pain upon questioning. he moves all extremities and follows commands. - Eye Eye exam: Present: PERRL, sclera anicteric - Neck Neck exam general surgery: Present: supple, trachea midline. Absent: lymphadenopathy - Respiratory Respiratory exam: Present: CTAB - Cardiovascular Cardiovascular exam: Present: RRR - GI/Abdominal GI/Abdominal exam: Present: normal bowel sounds, soft. Absent: distended, tenderness - Extremities Exam Extremities exam: Absent: pedal edema - Back Exam Back exam: Absent: CVA tenderness (L), CVA tenderness (R) - Neurological Exam Neurological exam: Present: alert, oriented X3, no focal deficits, strengths equal and symetr throughout. Absent: facial droop, speech deficit - Skin Skin exam: Absent: intact (decubitus coccyx ulcer stage 2 with minimal purulent discharge. left plantar ulcer with scar, no signs of infection. right foot wound vac.) Internal Medicine: Result - Labs CBC & Chem 7: 12/22/16 05:10 12/22/16 05:10 Labs: Short CBC 12/22/16 Range/Units 05:10 WBC 6.7 (4.3-11.1) K/mcL Hgb 8.6 L (12.9-16.9) g/dL Hct 27.7 L (37.5-50.1) % Plt Count 319 (140-400) K/mcL Neutrophils # 4.0 (1.6-8.9) K/mcL BMP 12/22/16 05:10 Sodium 143 Potassium 4.1 Chloride 107 Carbon Dioxide 25 BUN 24 Creatinine 1.87 H Glucose 218 H Calcium 9.1 - ABG Interpretation ABG results: ABG ABG pH 7.42 pH Units (7.32-7.45) 12/22/16 04:21 ABG pCO2 44 mmHg (35-45) 12/22/16 04:21 ABG pO2 48 mmHg (85-104) L* 12/22/16 04:21 ABG O2 Saturation 84 % (95-98) L 12/22/16 04:21 Consult Discharge Plan - Plan Referrals: Mark Coe MD [Primary Care Provider] - (PT IS GOING TO ECF NO FOLLOW UP PCP APPOINTMENT NEEDED ) Isac Zuniga COAL SHOOTER [Advanced Practice Nurse] - 12/26/16 3:00 pm Prescriptions: Oxycodone HCl/Acetaminophen [Percocet 10-325 mg Tablet] 1 each PO Q4HR PRN #30 tablet PRN Reason: Pain Amoxicillin/Clavulanate [Augmentin] 875 mg PO BIDWM #8 tablet
[2016-12-22] MEDS: Haloperidol Lactate 5 MG/ML VIAL IM PRN (21:37)
[2016-12-23] MEDS: *HR* OxyCODONE Immed Rel 5 MG TABLET PO PRN ×2 (05:37→20:23)
[2016-12-23 06:48] LABS: Calcium 8.9 mg/dL (8.6-10.8); Magnesium 1.4 mg/dL (1.6-2.6)
[2016-12-23] MEDS: *HR* Heparin 5,000 UNIT/ML VIAL SQ SCH ×2 (06:48→17:02)
[2016-12-23] MEDS: Insulin LISPRO 300 UNITS/3 ML VIAL SQ SCH ×4 (08:07→21:22)
[2016-12-23] MEDS: Aspirin Enteric Coated 81 MG Tablet PO SCH (08:12)
[2016-12-23] MEDS: Folic Acid 1 MG TABLET PO SCH (08:14)
[2016-12-23] MEDS: amLODIPine 5 MG TABLET PO SCH (08:14)
[2016-12-23] MEDS: Thiamine (B-1) 100 MG TABLET PO SCH (08:16)
[2016-12-23] MEDS: Insulin DETEMIR 100 UNIT/ML X5UNITS SQ SCH ×2 (08:17→21:26)
[2016-12-23] MEDS: Vitamin B Complex/Vit C/Vit E 1 EACH TABLET PO SCH (08:17)
[2016-12-23] MEDS: Magnesium Oxide 400 MG TABLET PO SCH ×4 (08:22→20:23)
--- NOTE | 2016-12-23 10:20 | Internal Med Progress Note ---
Date of Encounter: 12/23/16 Time of Encounter: 10:00 - Assessment and plan (1) Metabolic encephalopathy Current Visit: Yes Status: Acute Assessment and plan: Episodes of waxing and waning of mental status but it has improved since admission. Multifactorial etiology due to cardiac arrest, aspiration pneumonia, acute diastolic HF, DANY and polypharmacy. 12/16: CT head showed no acute process. old lacunar infarct in the left basal basal ganglia. 12/23: worsening of agitation in the past 3 days. no fever or signs of infection. Increase seroquel tp 50 mg bid. haldol IM as needed. continue to monitor. (2) Acute respiratory failure with hypoxia Current Visit: Yes Status: Acute Assessment and plan: Improved. required mechanical ventilation and underwent bronchoscopy with large mucous plug suctioned out of the left main bronchial airway. He completed Unasyn course. Successfully extubated and tolerating 2L NC well. Multifactorial etiology due to acute pulmonary edema, aspiration pneumonia, and metabolic encephalopathy. 12/19: chest x ray shows mild pulmonary edema. continue lasix and nebs prn. (3) Cardiac arrest Current Visit: No Status: Resolved Assessment and plan: On admission, 12/02: PEA arrest in the setting of hypoxia during intubation. ROSC after one round of CPR. Second event of PEA in one month. Both occurred during hypoxic events. (4) Acute worsening of stage 3 chronic kidney disease Current Visit: Yes Status: Acute Assessment and plan: pre-renal due to infection, hypoxemia and PEA arrest. resolved. kidney function at baseline. avoid nephrotoxins as possible. (5) Acute diastolic heart failure Current Visit: Yes Status: Acute Assessment and plan: 11/17/16- EF 60-65%, indeterminate diastolic dysfunction. Mild MR, mild TR. Patient is euvolemic. will decrease oral lasix to 20 mg bid (6) Aspiration pneumonia Current Visit: Yes Status: Acute Assessment and plan: completed Unasyn course. resolved. Qualifiers: Aspiration pneumonia type: due to regurgitated food Laterality: bilateral Lung location: lower lobe of lung Qualified Code(s): J69.0 - Pneumonitis due to inhalation of food and vomit (7) COPD (chronic obstructive pulmonary disease) Current Visit: No Status: Chronic Assessment and plan: stable. nebs prn Qualifiers: COPD type: unspecified COPD Qualified Code(s): J44.9 - Chronic obstructive pulmonary disease, unspecified (8) Myoclonic jerking Current Visit: Yes Status: Resolved Assessment and plan: clinically improving. Since admission, patient had abnormal limb jerking movements. Neurology consulted and possible myoclonus is secondary to renal failure, and polypharmacy (gabapentin and keppra). No seizure. Keppra and gabapentin were stopped. EEG was unremarkable. (9) Osteomyelitis of foot, right, acute Current Visit: No Status: Acute Assessment and plan: Wound vac intact to the right foot, Continue wound vac to right foot. Ulceration to left foot appears to be healing, no evidence of bacterial infection. Continue wound care dressing changes as per podiatry Continue cam boot to RLE. Patient will f/u with Dr. Pace in wound care with in one week of discharge from the hospital. (10) Polypharmacy Current Visit: Yes Status: Acute Assessment and plan: holding gabapentin, trazadone, keppra, and hydrozyzine. (11) Poorly controlled diabetes mellitus Current Visit: No Status: Chronic Assessment and plan: fasting glucose 194. poor diet intake. change levemir 10 bid. sliding scale insulin. diabetic diet. (12) Hypomagnesemia Current Visit: Yes Status: Acute Assessment and plan: replete (13) Tobacco abuse Current Visit: No Status: Chronic Assessment and plan: will counseled when mental status back to baseline. (14) Obesity (BMI 30.0-34.9) Current Visit: No Status: Chronic Assessment and plan: bmi 34. - Subjective Interval history: Patient became very agitated overnight, and pulled his wound vac. There is a sitter in his room now. Upon my examination, he is AOx2 and following all commands. he has no complaints. - Constitutional Vitals: Temp Pulse Resp BP Pulse Ox 97.7 F 58 20 120/55 94 L 12/23/16 07:30 12/23/16 07:30 12/23/16 07:30 12/23/16 07:30 12/23/16 07:30 General appearance: Present: cooperative, A&O X 2, pleasant, no acute distress, answers questions appropriately - Eye Eye exam: Present: PERRL, sclera anicteric - ENT ENT exam: Present: mucous membranes moist - Neck Neck exam general surgery: Present: supple, trachea midline. Absent: lymphadenopathy - Respiratory Respiratory exam: Present: CTAB - Cardiovascular Cardiovascular exam: Present: RRR - GI/Abdominal GI/Abdominal exam: Present: normal bowel sounds, soft. Absent: distended, tenderness - Extremities Exam Extremities exam: Absent: pedal edema - Neurological Exam Neurological exam: Present: alert, oriented X3. Absent: facial droop, speech deficit - Skin Additional comments: coccyx stage II ulcer, minimal purulent discharge. Internal Medicine: Result - Labs CBC & Chem 7: 12/22/16 05:10 12/23/16 05:59 Labs: BMP 12/23/16 05:59 Sodium 143 Potassium 4.0 Chloride 106 Carbon Dioxide 27 BUN 27 H Creatinine 1.98 H Glucose 178 H Calcium 8.9 - ABG Interpretation ABG results: ABG ABG pH 7.42 pH Units (7.32-7.45) 12/22/16 04:21 ABG pCO2 44 mmHg (35-45) 12/22/16 04:21 ABG pO2 48 mmHg (85-104) L* 12/22/16 04:21 ABG O2 Saturation 84 % (95-98) L 12/22/16 04:21 Consult Discharge Plan - Plan Referrals: Mark Coe MD [Primary Care Provider] - (PT IS GOING TO ECF NO FOLLOW UP PCP APPOINTMENT NEEDED ) Isac Zuniga, LOAN OFFICER [Advanced Practice Nurse] - 12/26/16 3:00 pm Prescriptions: Oxycodone HCl/Acetaminophen [Percocet 10-325 mg Tablet] 1 each PO Q4HR PRN #30 tablet PRN Reason: Pain Amoxicillin/Clavulanate [Augmentin] 875 mg PO BIDWM #8 tablet
[2016-12-23] MEDS: Haloperidol Lactate 5 MG/ML VIAL IM PRN (11:26)
[2016-12-23] MEDS ORDERED: Haloperidol Lactate 5 MG/ML VIAL IM ONE (14:37)
[2016-12-23] MEDS: Gabapentin 100 MG CAPSULE PO SCH ×2 (17:03→20:23)
[2016-12-23] MEDS: Doxycycline 100 MG CAPSULE PO SCH ×2 (17:03→20:23)
[2016-12-23] MEDS: OLANZapine 5 MG TAB.RAPDIS PO SCH (20:24)
[2016-12-23] MEDS: Ipratropium/Albuterol Neb 3 ML IH SCH (22:46)
[2016-12-24] MEDS: *HR* OxyCODONE Immed Rel 5 MG TABLET PO PRN ×2 (02:50→11:59)
[2016-12-24] MEDS: *HR* Heparin 5,000 UNIT/ML VIAL SQ SCH ×2 (06:10→20:23)
[2016-12-24 06:21] LABS: Basophils # 0.1 K/mcL (0.0-0.2); Basophils % 0.6 %; Eosinophils # 0.3 K/mcL (0.0-0.6); Eosinophils % 3.4 %; Hematocrit 28.3 % (37.5-50.1); Immature Granulocytes % 0.4 % (0-4); Lymphocytes # 1.7 K/mcL (0.6-4.6); Lymphocytes % 22.1 %; Mean Corpuscular HGB Conc 31.8 g/dL (31.6-35.5); Mean Corpuscular Hemoglobin 27.3 pg (28.0-33.3); Mean Corpuscular Volume 85.8 fL (83.0-100.0); Mean Platelet Volume 9.6 fL (9.4-12.4); Monocytes # 0.6 K/mcL (0.0-1.3); Monocytes % 8.2 %; Neutrophils # 5.1 K/mcL (1.6-8.9); Platelet Count 303 K/mcL (140-400); Red Cell Distribution Width 15.6 % (11.5-14.5); Segmented Neutrophils % 65.3 %
[2016-12-24 06:37] LABS: Albumin 2.6 g/dL (3.5-5.0); Albumin/Globulin Ratio 0.6 (1.1-2.2); Bilirubin,Direct 0.2 mg/dL (0.0-0.5); Bilirubin,Indirect 0.4 mg/dL (0.0-1.2); Bilirubin,Total 0.6 mg/dL (0.2-1.2); Calcium 8.6 mg/dL (8.6-10.8); Globulin 4.4 g/dL (2.4-3.5); Magnesium 1.4 mg/dL (1.6-2.6); Potassium 4.6 mEq/L (3.5-4.5)
[2016-12-24] MEDS: Ipratropium/Albuterol Neb 3 ML IH SCH ×3 (08:19→20:39)
[2016-12-24] MEDS: Doxycycline 100 MG CAPSULE PO SCH ×2 (08:22→20:19)
[2016-12-24] MEDS: Aspirin Enteric Coated 81 MG Tablet PO SCH (08:23)
[2016-12-24] MEDS: Thiamine (B-1) 100 MG TABLET PO SCH (08:23)
[2016-12-24] MEDS: Vitamin B Complex/Vit C/Vit E 1 EACH TABLET PO SCH (08:23)
[2016-12-24] MEDS: Magnesium Oxide 400 MG TABLET PO SCH ×2 (08:23→20:19)
[2016-12-24] MEDS: Folic Acid 1 MG TABLET PO SCH (08:23)
[2016-12-24] MEDS: Insulin DETEMIR 100 UNIT/ML X5UNITS SQ SCH ×2 (08:24→20:20)
[2016-12-24] MEDS: Insulin LISPRO 300 UNITS/3 ML VIAL SQ SCH ×4 (08:30→20:20)
[2016-12-24] MEDS: Gabapentin 100 MG CAPSULE PO SCH ×2 (08:42→20:19)
[2016-12-24] MEDS ORDERED: amLODIPine 5 MG TABLET PO SCH (09:00)
[2016-12-24] MEDS ORDERED: Albuterol 2.5 MG/3 ML NEBULIZER IH PRN (11:45)
[2016-12-24] MEDS ORDERED: Water for inj. (sterile) 10 ML IV ONE ×2 (13:27→17:14)
[2016-12-24] MEDS: OLANZapine 10 MG VIAL IM PRN (13:33)
--- NOTE | 2016-12-24 13:46 | Internal Med Progress Note ---
Date of Encounter: 12/24/16 Time of Encounter: 12:00 - Assessment and plan (1) Metabolic encephalopathy Current Visit: Yes Status: Acute Assessment and plan: Episodes of waxing and waning of mental status but it has improved since admission. Multifactorial etiology due to cardiac arrest, aspiration pneumonia, acute diastolic HF, DANY and polypharmacy. 12/16: CT head showed no acute process. old lacunar infarct in the left basal basal ganglia. 12/23: worsening of agitation in the past 3 days. no fever or signs of infection. sitter. Stop seroquel. Oral Zyprexa at bedtime. IM Zyprexa as needed. start low dose gabapentin. 12/24: agitation has improved mildly. continue oral Zyprexa, gabapentin and IM zyprexa prn. sitter at bedside. (2) Myoclonic jerking Current Visit: Yes Status: Resolved Assessment and plan: clinically improving. Since admission, patient had abnormal limb jerking movements. Neurology consulted and possible myoclonus is secondary to hypoxic state, renal failure, and polypharmacy (gabapentin and keppra). No seizure. EEG was unremarkable. PLAN: tapering down gabapentin. holding keppra. (3) Acute worsening of stage 3 chronic kidney disease Current Visit: Yes Status: Acute Assessment and plan: pre-renal due to infection, hypoxemia and PEA arrest. BUn and creatinine are trending up. resume lasix 20 mg bid. avoid nephrotoxins as possible. (4) Decubitus ulcer of coccygeal region, stage 2 Current Visit: Yes Status: Acute Assessment and plan: 12/23: purulent discharge. oral doxycycline started. continue oral doxycycline. (5) Acute respiratory failure with hypoxia Current Visit: Yes Status: Acute Assessment and plan: Improved. required mechanical ventilation and underwent bronchoscopy with large mucous plug suctioned out of the left main bronchial airway. He completed Unasyn course. Successfully extubated and tolerating 2L NC well. Multifactorial etiology due to acute pulmonary edema, aspiration pneumonia, and metabolic encephalopathy. 12/19: chest x ray shows mild pulmonary edema. Received lasix but then discontinued when he became euvolemic and doing well at room air. continue nebs tid. (6) Cardiac arrest Current Visit: No Status: Resolved Assessment and plan: On admission, 12/02: PEA arrest in the setting of hypoxia during intubation. ROSC after one round of CPR. Second event of PEA in one month. Both occurred during hypoxic events. (7) Acute diastolic heart failure Current Visit: Yes Status: Acute Assessment and plan: 11/17/16- EF 60-65%, indeterminate diastolic dysfunction. Mild MR, mild TR. Patient is euvolemic. will decrease oral lasix to 20 mg bid (8) Aspiration pneumonia Current Visit: Yes Status: Acute Assessment and plan: completed Unasyn course. resolved. Qualifiers: Aspiration pneumonia type: due to regurgitated food Laterality: bilateral Lung location: lower lobe of lung Qualified Code(s): J69.0 - Pneumonitis due to inhalation of food and vomit (9) COPD (chronic obstructive pulmonary disease) Current Visit: No Status: Chronic Assessment and plan: stable. nebs prn Qualifiers: COPD type: unspecified COPD Qualified Code(s): J44.9 - Chronic obstructive pulmonary disease, unspecified (10) Osteomyelitis of foot, right, acute Current Visit: No Status: Acute Assessment and plan: Wound vac intact to the right foot, Continue wound vac to right foot. Ulceration to left foot appears to be healing, no evidence of bacterial infection. Continue wound care dressing changes as per podiatry Continue cam boot to RLE. Patient will f/u with Dr. Pace in wound care with in one week of discharge from the hospital. (11) Polypharmacy Current Visit: Yes Status: Acute Assessment and plan: holding gabapentin, trazadone, keppra, and hydrozyzine. (12) Poorly controlled diabetes mellitus Current Visit: No Status: Chronic Assessment and plan: fasting glucose 189. poor diet intake. change levemir 10 bid. sliding scale insulin. diabetic diet. (13) Hypomagnesemia Current Visit: Yes Status: Acute Assessment and plan: replete (14) Tobacco abuse Current Visit: No Status: Chronic Assessment and plan: will counseled when mental status back to baseline. (15) Obesity (BMI 30.0-34.9) Current Visit: No Status: Chronic Assessment and plan: bmi 34. (16) Hyperkalemia Current Visit: Yes Status: Acute Assessment and plan: stop oral potassium. - Subjective Interval history: Patient still delirious but there are no events documented overnight. - Constitutional Vitals: Temp Pulse Resp BP Pulse Ox 98.2 F 61 16 131/56 93 L 12/24/16 10:34 12/24/16 10:34 12/24/16 10:34 12/24/16 10:34 12/24/16 10:34 General appearance: Present: cooperative, A&O X 2, pleasant, no acute distress, answers questions appropriately - Eye Eye exam: Present: PERRL, sclera anicteric - ENT ENT exam: Present: mucous membranes moist - Neck Neck exam general surgery: Present: supple, trachea midline. Absent: lymphadenopathy - Cardiovascular Cardiovascular exam: Present: RRR - GI/Abdominal GI/Abdominal exam: Present: normal bowel sounds, soft. Absent: distended, tenderness - Extremities Exam Extremities exam: Absent: pedal edema - Back Exam Back exam: Absent: CVA tenderness (L), CVA tenderness (R) - Neurological Exam Neurological exam: Present: alert Additional comments: Patient with severe myoclonic jerks that impedes him from doing any ADLs. he needs help in sitting up, holding a cup and even talking. - Skin Skin exam: Absent: rash Internal Medicine: Result - Labs CBC & Chem 7: 12/24/16 06:09 12/24/16 06:09 Labs: Short CBC 12/24/16 Range/Units 06:09 WBC 7.8 (4.3-11.1) K/mcL Hgb 9.0 L (12.9-16.9) g/dL Hct 28.3 L (37.5-50.1) % Plt Count 303 (140-400) K/mcL Neutrophils # 5.1 (1.6-8.9) K/mcL BMP 12/24/16 06:09 Sodium 141 Potassium 4.6 H Chloride 105 Carbon Dioxide 24 BUN 29 H Creatinine 2.06 H Glucose 189 H Calcium 8.6 Liver Function 12/24/16 Range/Units 06:09 Total Bilirubin 0.6 (0.2-1.2) mg/dL Direct Bilirubin 0.2 (0.0-0.5) mg/dL AST 16 (5-34) Units/L ALT 10 (0-55) Units/L Alkaline Phosphatase 100 (38-126) Units/L Albumin 2.6 L (3.5-5.0) g/dL - ABG Interpretation ABG results: ABG ABG pH 7.42 pH Units (7.32-7.45) 12/22/16 04:21 ABG pCO2 44 mmHg (35-45) 12/22/16 04:21 ABG pO2 48 mmHg (85-104) L* 12/22/16 04:21 ABG O2 Saturation 84 % (95-98) L 12/22/16 04:21 Consult Discharge Plan - Plan Referrals: Mark Coe MD [Primary Care Provider] - (PT IS GOING TO [facility] NO FOLLOW UP PCP APPOINTMENT NEEDED ) Isac Zuniga, ELECTRIC DISTRIBUTION ENGINEER [Advanced Practice Nurse] - 12/26/16 3:00 pm Prescriptions: Oxycodone HCl/Acetaminophen [Percocet 10-325 mg Tablet] 1 each PO Q4HR PRN #30 tablet PRN Reason: Pain Amoxicillin/Clavulanate [Augmentin] 875 mg PO BIDWM #8 tablet
--- NOTE | 2016-12-24 16:22 | Electrocardiograph Report ---
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
[2016-12-24] MEDS ORDERED: Ziprasidone injection 20 MG/ML VIAL IM STA (16:24)
[2016-12-24] MEDS ORDERED: Magnesium Sulfate 2 GM in D5% in Water 100 ML IVPB STA (16:25)
[2016-12-24] MEDS: Furosemide 20 MG TABLET PO SCH (17:23)
[2016-12-24] MEDS ORDERED: Ziprasidone injection 20 MG/ML VIAL IM PRN (19:02)
[2016-12-24] MEDS: OLANZapine 5 MG TAB.RAPDIS PO SCH (20:19)
[2016-12-25] MEDS: *HR* Heparin 5,000 UNIT/ML VIAL SQ SCH ×2 (05:33→18:50)
[2016-12-25 07:42] LABS: Calcium 8.7 mg/dL (8.6-10.8); Magnesium 1.6 mg/dL (1.6-2.6); Potassium 4.7 mEq/L (3.5-4.5)
[2016-12-25] MEDS: Vitamin B Complex/Vit C/Vit E 1 EACH TABLET PO SCH (09:31)
[2016-12-25] MEDS: Magnesium Oxide 400 MG TABLET PO SCH ×2 (09:31→21:49)
[2016-12-25] MEDS: Furosemide 20 MG TABLET PO SCH (09:31)
[2016-12-25] MEDS: Thiamine (B-1) 100 MG TABLET PO SCH (09:31)
[2016-12-25] MEDS: Doxycycline 100 MG CAPSULE PO SCH ×2 (09:31→21:49)
[2016-12-25] MEDS: Gabapentin 100 MG CAPSULE PO SCH (09:31)
[2016-12-25] MEDS: Aspirin Enteric Coated 81 MG Tablet PO SCH (09:31)
[2016-12-25] MEDS: Folic Acid 1 MG TABLET PO SCH (09:32)
[2016-12-25] MEDS: Insulin DETEMIR 100 UNIT/ML X5UNITS SQ SCH ×2 (09:32→21:50)
[2016-12-25] MEDS: Insulin LISPRO 300 UNITS/3 ML VIAL SQ SCH ×4 (09:35→21:50)
[2016-12-25] MEDS: Ipratropium/Albuterol Neb 3 ML IH SCH ×3 (09:55→20:32)
[2016-12-25] MEDS ORDERED: Water for inj. (sterile) 10 ML IV ONE (13:45)
[2016-12-25] MEDS: OLANZapine 10 MG VIAL IM PRN (13:49)
[2016-12-25] MEDS: *HR* OxyCODONE Immed Rel 5 MG TABLET PO PRN (15:00)
--- NOTE | 2016-12-25 15:33 | Neurology Progress Note ---
Date of Encounter: 12/25/16 Time of Encounter: 15:29 Assessment and Plan (1) Altered mental status Current Visit: Yes Status: Acute This is much improved but it is anticipated that patient with metabolic encephalopathy may undergo fluctuating mental status as well as sundowning syndrome but overall speaking he is doing much better and this proves to be related his medical conditions. Please continue medical and supportive care. Patient is currently on zyprexs and the of such medication is largely symptomatic and empirical and since he is doing better, no changes are needed. He needs to follow up with psychiastrist or PCP to follow up with the use of antipsychotics. Qualifiers: Altered mental status type: delirium Qualified Code(s): R41.0 - Disorientation, unspecified (2) Myoclonic jerking Current Visit: Yes Status: Resolved This likely related to his encephalopathy as well and mostly his renal function. The jerks tend to mixed up with asterixis and this should improve as medical conditions improved. Small dose of gabapentin may be okay but would avoid regular dose of gabapentin due ot renal insufficiency. WIll keep him off keppra. If seizure recurs will consider a different seizure medication Subjective Principal diagnosis: Acute respiratory failure, PEA arrest Interval history: Patient seen and examined. Patient is now at the medical floor and he is wide awake and eating comfortably in bed. Sitter states that he has been having fluctuating mental status changes earlier but this has been the best he has observed. Patient appears in no distress and relaxed and able to converse in normal manner. Occasionally still has some asterixis like activity usually when stretched her arms out but no resting myoclonic jerks noted. No reported seizure activity since the hospital admission. Patient is off keppra now. and Gabapentin 100mg restarted. Objective - Constitutional Vitals: Temp Pulse Resp BP Pulse Ox 98.4 F 67 18 134/60 95 12/25/16 15:00 12/25/16 15:00 12/25/16 15:00 12/25/16 15:00 12/25/16 15:00 General appearance: Present: cooperative, A&O X 3, no acute distress, answers questions appropriately - Neurological Exam Sensorimotor examination: Present: other (Grossly intact) Motor Examination: Present: other (Patient is able to move all extremities but with some loss of dexterity noted and some drift noted at both sides. Hand national park ranger appear equal Tone is normal) Sensation intact: Present: other (Grossly intact) Posture: Present: other (None) Reflexes: Biceps: 1+, Triceps: 1+, Brachioradialis: 1+, Patella: 1+, Achilles: 1 + Mental Status Examination: Present: awake, alert, oriented to person, oriented to place, follows commands appropriately, answers questions appropriately Cranial nerve examination: Present: PERRL, EOMI, visual acharya intact, corneal reflexes brisk symmetrically, sensory to face intact, mastication intact, no facial asymmetry is present, hearing is intact symmetrically, soft palate elevates bilaterally upon phonation, gag reflex intact Results - Laboratory Findings CBC and BMP: 12/24/16 06:09 12/25/16 06:48 Abnormal lab findings: Abnormal lab results RBC 3.30 M/mcL (4.19-5.50) L 12/24/16 06:09 Hgb 9.0 g/dL (12.9-16.9) L 12/24/16 06:09 Hct 28.3 % (37.5-50.1) L 12/24/16 06:09 MCH 27.3 pg (28.0-33.3) L 12/24/16 06:09 RDW 15.6 % (11.5-14.5) H 12/24/16 06:09 ABG pO2 48 mmHg (85-104) L* 12/22/16 04:21 ABG HCO3 28.5 mEQ/L (21-27) H 12/22/16 04:21 ABG Total CO2 29.9 mEq/L (20-26) H 12/22/16 04:21 ABG O2 Saturation 84 % (95-98) L 12/22/16 04:21 ABG Base Excess 3.6 mEq/L (-2.0 to 3.0) H 12/22/16 04:21 Potassium 4.7 mEq/L (3.5-4.5) H 12/25/16 06:48 BUN 35 mg/dL (8-26) H 12/25/16 06:48 Creatinine 2.14 mg/dL (0.72-1.25) H 12/25/16 06:48 Est GFR ( Amer) 38 (> 60) L 12/25/16 06:48 Est GFR (Non-Af Amer) 32 (> 60) L 12/25/16 06:48 Glucose 213 mg/dL (70-99) H 12/25/16 06:48 POC Glucose 122 (58-89) H 12/25/16 11:29 Calculated Osmolality 308 (280-300) H 12/25/16 06:48 B-Natriuretic Peptide 365 pg/mL (0-100) H 12/02/16 12:23 Albumin 2.6 g/dL (3.5-5.0) L 12/24/16 06:09 Globulin 4.4 g/dL (2.4-3.5) H 12/24/16 06:09 Albumin/Globulin Ratio 0.6 (1.1-2.2) L 12/24/16 06:09 Urine Clarity Cloudy (Clear) A 12/02/16 12:27 Urine Protein >=300 mg/dL (Neg-Trace) H 12/02/16 12:27 Urine Glucose (UA) 250 mg/dL (Normal) H 12/02/16 12:27 Urine Ketones Trace mg/dL (Negative) H 12/02/16 12:27 Urine Blood Large (Negative) H 12/02/16 12:27 Urine Microscopic RBC 15-30 per hpf (0-3) H 12/02/16 12:27 Urine Microscopic WBC 5-15 per hpf (0-3) H 12/02/16 12:27 Ur Squamous Epith Cells Many per lpf (None-Few) H 12/02/16 12:27 Ur Culture Indicated? YES (NO) A 12/02/16 12:27 Stool Occult Blood Positive (Negative) A 12/03/16 14:06 Gabapentin <0.5 ug/mL (2.0-20.0) L 12/02/16 Unknown Consult Discharge Plan - Plan Referrals: Mark Coe MD [Primary Care Provider] - (PT IS GOING TO [facility] NO FOLLOW UP PCP APPOINTMENT NEEDED ) Isac Zuniga, AUTOMATIC SPINNING LATHE OPERATOR [Advanced Practice Nurse] - Prescriptions: Oxycodone HCl/Acetaminophen [Percocet 10-325 mg Tablet] 1 each PO Q4HR PRN #30 tablet PRN Reason: Pain Amoxicillin/Clavulanate [Augmentin] 875 mg PO BIDWM #8 tablet
[2016-12-25] MEDS: Nicotine 14 MG PATCH.TD24 TD SCH (15:52)
[2016-12-25] MEDS ORDERED: Ziprasidone injection 20 MG/ML VIAL IM ONE (16:25)
[2016-12-25] MEDS ORDERED: Ziprasidone injection 20 MG/ML VIAL IM PRN (17:05)
--- NOTE | 2016-12-25 17:07 | Internal Med Progress Note ---
Date of Encounter: 12/25/16 Time of Encounter: 12:00 - Assessment and plan (1) Metabolic encephalopathy Current Visit: Yes Status: Acute Assessment and plan: Episodes of waxing and waning of mental status but it has improved since admission. Multifactorial etiology due to cardiac arrest, aspiration pneumonia, acute diastolic HF, DANY and polypharmacy. 12/16: CT head showed no acute process. old lacunar infarct in the left basal basal ganglia. 12/23: worsening of agitation in the past 3 days. no fever or signs of infection. sitter. Stop seroquel. Oral Zyprexa at bedtime. IM Zyprexa as needed. start taper dose of gabapentin. 12/25: agitation continues to improve compared to admission but still having severe episodes of sundowning in the afternoon and nighttime. continue oral Zyprexa. stop IM Zyprexa. IM geodon prn. sitter at bedside. appreciate neurology input. (2) Myoclonic jerking Current Visit: Yes Status: Resolved Assessment and plan: clinically improving. Since admission, patient had abnormal limb jerking movements. Neurology consulted and possible myoclonus is secondary to hypoxic state, renal failure, and polypharmacy (gabapentin and keppra). No seizure. EEG was unremarkable. appreciate neurology input. PLAN: tapering down gabapentin. holding keppra. (3) Acute worsening of stage 3 chronic kidney disease Current Visit: Yes Status: Acute Assessment and plan: pre-renal due to infection, hypoxemia and PEA arrest. BUn and creatinine are trending up. resume lasix 20 mg bid. avoid nephrotoxins as possible. (4) Decubitus ulcer of coccygeal region, stage 2 Current Visit: Yes Status: Acute Assessment and plan: 12/23: purulent discharge. oral doxycycline started. continue oral doxycycline. (5) Acute respiratory failure with hypoxia Current Visit: Yes Status: Acute Assessment and plan: Improved. required mechanical ventilation and underwent bronchoscopy with large mucous plug suctioned out of the left main bronchial airway. He completed Unasyn course. Successfully extubated and tolerating 2L NC well. Multifactorial etiology due to acute pulmonary edema, aspiration pneumonia, and metabolic encephalopathy. 12/19: chest x ray shows mild pulmonary edema. Received lasix but then discontinued when he became euvolemic and doing well at room air. continue nebs tid. (6) Cardiac arrest Current Visit: No Status: Resolved Assessment and plan: On admission, 12/02: PEA arrest in the setting of hypoxia during intubation. ROSC after one round of CPR. Second event of PEA in one month. Both occurred during hypoxic events. (7) Acute diastolic heart failure Current Visit: Yes Status: Acute Assessment and plan: 11/17/16- EF 60-65%, indeterminate diastolic dysfunction. Mild MR, mild TR. Patient is euvolemic. will decrease oral lasix to 20 mg bid (8) Aspiration pneumonia Current Visit: Yes Status: Acute Assessment and plan: completed Unasyn course. resolved. Qualifiers: Aspiration pneumonia type: due to regurgitated food Laterality: bilateral Lung location: lower lobe of lung Qualified Code(s): J69.0 - Pneumonitis due to inhalation of food and vomit (9) COPD (chronic obstructive pulmonary disease) Current Visit: No Status: Chronic Assessment and plan: stable. nebs prn Qualifiers: COPD type: unspecified COPD Qualified Code(s): J44.9 - Chronic obstructive pulmonary disease, unspecified (10) Osteomyelitis of foot, right, acute Current Visit: No Status: Acute Assessment and plan: Wound vac intact to the right foot, Continue wound vac to right foot. Ulceration to left foot appears to be healing, no evidence of bacterial infection. Continue wound care dressing changes as per podiatry Continue cam boot to RLE. Patient will f/u with Dr. Pace in wound care with in one week of discharge from the hospital. (11) Polypharmacy Current Visit: Yes Status: Acute Assessment and plan: holding gabapentin, trazadone, keppra, and hydrozyzine. (12) Poorly controlled diabetes mellitus Current Visit: No Status: Chronic Assessment and plan: fasting glucose 189. poor diet intake. change levemir 10 bid. sliding scale insulin. diabetic diet. (13) Hypomagnesemia Current Visit: Yes Status: Acute Assessment and plan: replete (14) Tobacco abuse Current Visit: No Status: Chronic Assessment and plan: will counseled when mental status back to baseline. (15) Obesity (BMI 30.0-34.9) Current Visit: No Status: Chronic Assessment and plan: bmi 34. (16) Hyperkalemia Current Visit: Yes Status: Acute Assessment and plan: stop oral potassium. - Subjective Interval history: Patient with episodes of severe delirium in the afternoon by 3 pm and overnight. he refuses cardiac monitoring and IV access. He pulled his wound vac yesterday and had to be replaced overnight. - Constitutional Vitals: Temp Pulse Resp BP Pulse Ox 98.4 F 67 18 134/60 95 12/25/16 15:00 12/25/16 15:00 12/25/16 15:00 12/25/16 15:00 12/25/16 15:00 General appearance: Present: cooperative, A&O X 2, pleasant, no acute distress, answers questions appropriately - Eye Eye exam: Present: PERRL, sclera anicteric - Neck Neck exam general surgery: Present: supple, trachea midline. Absent: lymphadenopathy - Respiratory Respiratory exam: Present: CTAB - Cardiovascular Cardiovascular exam: Present: RRR - GI/Abdominal GI/Abdominal exam: Present: normal bowel sounds, soft. Absent: distended, tenderness - Extremities Exam Extremities exam: Absent: pedal edema - Neurological Exam Neurological exam: Present: alert - Skin Skin exam: Absent: intact (coccyx decubitus ulcer stage 2, no discharge noted.) Internal Medicine: Result - Labs CBC & Chem 7: 12/24/16 06:09 12/25/16 06:48 Labs: BMP 12/25/16 06:48 Sodium 142 Potassium 4.7 H Chloride 108 Carbon Dioxide 23 BUN 35 H Creatinine 2.14 H Glucose 213 H Calcium 8.7 - ABG Interpretation ABG results: ABG ABG pH 7.42 pH Units (7.32-7.45) 12/22/16 04:21 ABG pCO2 44 mmHg (35-45) 12/22/16 04:21 ABG pO2 48 mmHg (85-104) L* 12/22/16 04:21 ABG O2 Saturation 84 % (95-98) L 12/22/16 04:21 Consult Discharge Plan - Plan Referrals: Mark Coe MD [Primary Care Provider] - (PT IS GOING TO [facility] NO FOLLOW UP PCP APPOINTMENT NEEDED ) Isac Zuniga CNP [Advanced Practice Nurse] - Prescriptions: Oxycodone HCl/Acetaminophen [Percocet 10-325 mg Tablet] 1 each PO Q4HR PRN #30 tablet PRN Reason: Pain Amoxicillin/Clavulanate [Augmentin] 875 mg PO BIDWM #8 tablet
[2016-12-25] MEDS: OLANZapine 5 MG TAB.RAPDIS PO SCH (21:49)
[2016-12-26] MEDS: *HR* Heparin 5,000 UNIT/ML VIAL SQ SCH ×2 (05:23→17:15)
[2016-12-26] MEDS: *HR* OxyCODONE Immed Rel 5 MG TABLET PO PRN (05:24)
[2016-12-26 07:36] LABS: Basophils # 0.1 K/mcL (0.0-0.2); Basophils % 0.5 %; Eosinophils # 0.3 K/mcL (0.0-0.6); Eosinophils % 2.8 %; Hematocrit 26.9 % (37.5-50.1); Hemoglobin 8.5 g/dL (12.9-16.9); Lymphocytes # 2.7 K/mcL (0.6-4.6); Lymphocytes % 29.9 %; Mean Corpuscular HGB Conc 31.6 g/dL (31.6-35.5); Mean Corpuscular Hemoglobin 27.1 pg (28.0-33.3); Mean Corpuscular Volume 85.7 fL (83.0-100.0); Mean Platelet Volume 10.1 fL (9.4-12.4); Monocytes # 0.9 K/mcL (0.0-1.3); Monocytes % 9.6 %; Neutrophils # 5.1 K/mcL (1.6-8.9); Platelet Count 290 K/mcL (140-400); Red Blood Count 3.14 M/mcL (4.19-5.50); Red Cell Distribution Width 15.5 % (11.5-14.5); Segmented Neutrophils % 56.2 %
[2016-12-26 07:42] LABS: Albumin 2.7 g/dL (3.5-5.0); Albumin/Globulin Ratio 0.6 (1.1-2.2); Bilirubin,Direct 0.2 mg/dL (0.0-0.5); Bilirubin,Indirect 0.4 mg/dL (0.0-1.2); Bilirubin,Total 0.6 mg/dL (0.2-1.2); Calcium 9.4 mg/dL (8.6-10.8); Globulin 4.2 g/dL (2.4-3.5); Magnesium 1.8 mg/dL (1.6-2.6); Potassium 4.5 mEq/L (3.5-4.5); Total Protein 6.9 g/dL (6.0-8.3)
[2016-12-26] MEDS: Insulin LISPRO 300 UNITS/3 ML VIAL SQ SCH ×4 (08:11→20:50)
[2016-12-26] MEDS: Doxycycline 100 MG CAPSULE PO SCH ×2 (08:12→21:36)
[2016-12-26] MEDS: Aspirin Enteric Coated 81 MG Tablet PO SCH (08:13)
[2016-12-26] MEDS: Vitamin B Complex/Vit C/Vit E 1 EACH TABLET PO SCH (08:13)
[2016-12-26] MEDS: Thiamine (B-1) 100 MG TABLET PO SCH (08:13)
[2016-12-26] MEDS: Nicotine 14 MG PATCH.TD24 TD SCH (08:14)
[2016-12-26] MEDS: Magnesium Oxide 400 MG TABLET PO SCH ×2 (08:14→21:36)
[2016-12-26] MEDS: Folic Acid 1 MG TABLET PO SCH (08:15)
[2016-12-26] MEDS: Insulin DETEMIR 100 UNIT/ML X5UNITS SQ SCH ×2 (08:23→21:37)
[2016-12-26 09:11] LABS: Thyroid Stimulating Hormone 1.082 mcIU/mL (0.350-4.840)
[2016-12-26] MEDS: Ipratropium/Albuterol Neb 3 ML IH SCH ×3 (09:34→20:15)
[2016-12-26 10:58] LABS: Vitamin D 25 Hydroxy 17 ng/mL (30-80)
--- NOTE | 2016-12-26 17:06 | Podiatry Progress Note ---
Date of Encounter: 12/26/16 Time of Encounter: 12:00 - Assessment and Plan (1) Diabetic ulcer of both feet associated with type 2 diabetes mellitus Current Visit: No Status: Acute Examined at bedside Wound vac removed Skin prep and betadine applied to skin Black granufoam replaced and VAC sealed without leak Wrapped in kerlex for protection, patient tolerated well Sitter at bedside Ulcer to left foot unchanged since last visit. Mepilex to remain in place. Patient will return to [facility] care facility with wound vac No clinical signs of infection to wound Patient may be discharged when medically cleared Please consult SW for follow with VAC non weight bearing to right foot please call with any clinical signs of infection or worsening of wounds Once discharged, please make appointment for follow up in wound care clinic with in 2 weeks. (2) Foot ulcer with fat layer exposed Current Visit: No Status: Acute (3) Peripheral vascular disease due to secondary diabetes Current Visit: No Status: Acute Subjective Principal diagnosis: Acute respiratory failure, PEA arrest Interval history: Mr. Regalado is a 61 year old male who was readmitted to hospital with AMS, tremors and spo2 60%. Patient has remained admitted due to continued altered mental status and respiratory distress. Patient is s/p incision and drainage to bone cortex for osteomyelitis #5 metatarsal right, open amputation of toe #5 with metatarsal #5 right foot, application wound VAC by Dr. Pace on 11/06/16. Wound vac was removed on readmission. Wound vac was replaced on 12/09/16. On arrival today patient is lethargic with sitter at bedside. Will awaken at times to name. No c/o pain to his feet. Does not maintain wakeful state. Wound vac running without issue at this time. No drainage noted to canister. Kerlex in place. . Objective - Vital Signs Vital Signs: Vital Signs Temp Pulse Resp BP Pulse Ox 12/26/16 12:30 66 28 114/51 12/26/16 09:57 76 106/34 12/26/16 09:34 20 96 12/26/16 09:17 97 135/70 97 12/26/16 08:29 68 26 96 12/26/16 07:00 98.5 F 30 12/26/16 03:10 98.3 F 63 26 148/67 96 12/25/16 23:05 99.2 F 64 28 119/54 98 12/25/16 20:34 18 93 L 12/25/16 19:00 98.3 F 65 18 142/69 94 L Intake and Output 12/26/16 12/26/16 12/26/16 07:59 15:59 23:59 Intake Total 0 / 0 720 / 720 Output Total 425 / 425 0 / 0 Balance -425 / -425 720 / 720 Intake: Oral 0 / 0 720 / 720 Output: Urine 425 / 425 Wound Drainage 0 / 0 0 / 0 Right Foot 0 / 0 0 / 0 Other: Meal Breakfast Percent of Meal Consumed 75% Stool Size Smear # Urine Diapers 1 # Bowel Movements 0 Weight 102.8 kg Blood Glucose* 147 Patient Weight 12/26/16 23:59 Weight 102.8 kg - Exam Exam: General Examination: CONSTITUTIONAL: awake, alert at times. Neurologic jerking ntoed. Responds to name at times EXTREMITIES: CFT 3 seconds all toes. Edema 0 and pedal pulses faintly palpable SKIN: Skin with decreased turgor, decreased subcutaneous tissue, skin thin and shiny with trophic changes associated with comorbidities as described in history.. NEUROLOGIC: Minimal sensation to BLE Surgical site wound vac removed- Wound bed clean, healthy granulation tissue noted throughout. Mild maceration surrounding wound at this time- betadine applied prior to application of wound vac. [id number]. No appearance of infection. No drainage, no warmth, edema, odor, erythema or edema. No pain with palpation. - Lab Result Diagrams: 12/26/16 06:33 12/26/16 06:33 Labs: Abnormal lab results RBC 3.14 M/mcL (4.19-5.50) L 12/26/16 06:33 Hgb 8.5 g/dL (12.9-16.9) L 12/26/16 06:33 Hct 26.9 % (37.5-50.1) L 12/26/16 06:33 MCH 27.1 pg (28.0-33.3) L 12/26/16 06:33 RDW 15.5 % (11.5-14.5) H 12/26/16 06:33 ABG pO2 48 mmHg (85-104) L* 12/22/16 04:21 ABG HCO3 28.5 mEQ/L (21-27) H 12/22/16 04:21 ABG Total CO2 29.9 mEq/L (20-26) H 12/22/16 04:21 ABG O2 Saturation 84 % (95-98) L 12/22/16 04:21 ABG Base Excess 3.6 mEq/L (-2.0 to 3.0) H 12/22/16 04:21 BUN 40 mg/dL (8-26) H 12/26/16 06:33 Creatinine 2.19 mg/dL (0.72-1.25) H 12/26/16 06:33 Est GFR ( Amer) 37 (> 60) L 12/26/16 06:33 Est GFR (Non-Af Amer) 31 (> 60) L 12/26/16 06:33 Glucose 206 mg/dL (70-99) H 12/26/16 06:33 POC Glucose 187 (58-89) H 12/26/16 07:59 Calculated Osmolality 312 (280-300) H 12/26/16 06:33 B-Natriuretic Peptide 365 pg/mL (0-100) H 12/02/16 12:23 Albumin 2.7 g/dL (3.5-5.0) L 12/26/16 06:33 Globulin 4.2 g/dL (2.4-3.5) H 12/26/16 06:33 Albumin/Globulin Ratio 0.6 (1.1-2.2) L 12/26/16 06:33 25-OH Vitamin D Total 17 ng/mL (30-80) L 12/26/16 06:33 Urine Clarity Cloudy (Clear) A 12/02/16 12:27 Urine Protein >=300 mg/dL (Neg-Trace) H 12/02/16 12:27 Urine Glucose (UA) 250 mg/dL (Normal) H 12/02/16 12:27 Urine Ketones Trace mg/dL (Negative) H 12/02/16 12:27 Urine Blood Large (Negative) H 12/02/16 12:27 Urine Microscopic RBC 15-30 per hpf (0-3) H 12/02/16 12:27 Urine Microscopic WBC 5-15 per hpf (0-3) H 12/02/16 12:27 Ur Squamous Epith Cells Many per lpf (None-Few) H 12/02/16 12:27 Ur Culture Indicated? YES (NO) A 12/02/16 12:27 Stool Occult Blood Positive (Negative) A 12/03/16 14:06 Gabapentin <0.5 ug/mL (2.0-20.0) L 12/02/16 Unknown Consult Discharge Plan - Plan Referrals: Mark Coe MD [Primary Care Provider] - (PT IS GOING TO [facility] NO FOLLOW UP PCP APPOINTMENT NEEDED ) Isac Zuniga CNP [Advanced Practice Nurse] - Prescriptions: Amoxicillin/Clavulanate [Augmentin] 875 mg PO BIDWM #8 tablet Oxycodone HCl/Acetaminophen [Percocet 10-325 mg Tablet] 1 each PO Q4HR PRN #30 tablet PRN Reason: Pain
--- NOTE | 2016-12-26 17:43 | Internal Med Progress Note ---
Date of Encounter: 12/26/16 Time of Encounter: 08:00 - Assessment and plan (1) Metabolic encephalopathy Current Visit: Yes Status: Acute Assessment and plan: acute delirium and sundowing. Episodes of waxing and waning of mental status but it has improved since admission. Multifactorial etiology due to cardiac arrest, aspiration pneumonia, acute diastolic HF, DANY and polypharmacy. 12/16: CT head showed no acute process. old lacunar infarct in the left basal basal ganglia. 12/23: worsening of agitation in the past 3 days. no fever or signs of infection. sitter. Stop seroquel. Oral Zyprexa at bedtime. IM Zyprexa as needed. start taper dose of gabapentin. 12/26: still very agitated during daytime but worsens at nighttime. given one dose of IM Benadryl. stop oral Zyprexa. start oral risperidone. IM geodon prn. sitter at bedside. appreciate neurology input. (2) Myoclonic jerking Current Visit: Yes Status: Resolved Assessment and plan: clinically improving. Since admission, patient had abnormal limb jerking movements. Neurology consulted and possible myoclonus is secondary to hypoxic state, renal failure, and polypharmacy (gabapentin and keppra). No seizure. EEG was unremarkable. appreciate neurology input. PLAN: tapering down gabapentin. holding keppra. (3) Acute worsening of stage 3 chronic kidney disease Current Visit: Yes Status: Acute Assessment and plan: pre-renal due to infection, hypoxemia and PEA arrest. renal us was unremarkable. BUn and creatinine still trending up. IV fluids. avoid nephrotoxins as possible. (4) Decubitus ulcer of coccygeal region, stage 2 Current Visit: Yes Status: Acute Assessment and plan: 12/23: purulent discharge. oral doxycycline started. continue oral doxycycline. (5) Acute respiratory failure with hypoxia Current Visit: Yes Status: Acute Assessment and plan: Improved. required mechanical ventilation and underwent bronchoscopy with large mucous plug suctioned out of the left main bronchial airway. He completed Unasyn course. Successfully extubated and tolerating 2L NC well. Multifactorial etiology due to acute pulmonary edema, aspiration pneumonia, and metabolic encephalopathy. 12/19: chest x ray shows mild pulmonary edema. Received lasix but then discontinued when he became euvolemic and doing well at room air. continue nebs tid. (6) Cardiac arrest Current Visit: No Status: Resolved Assessment and plan: On admission, 12/02: PEA arrest in the setting of hypoxia during intubation. ROSC after one round of CPR. Second event of PEA in one month. Both occurred during hypoxic events. (7) Acute diastolic heart failure Current Visit: Yes Status: Acute Assessment and plan: 11/17/16- EF 60-65%, indeterminate diastolic dysfunction. Mild MR, mild TR. received oral lasix. Patient is euvolemic. off lasix. (8) Aspiration pneumonia Current Visit: Yes Status: Acute Assessment and plan: completed Unasyn course. resolved. Qualifiers: Aspiration pneumonia type: due to regurgitated food Laterality: bilateral Lung location: lower lobe of lung Qualified Code(s): J69.0 - Pneumonitis due to inhalation of food and vomit (9) COPD (chronic obstructive pulmonary disease) Current Visit: No Status: Chronic Assessment and plan: stable. nebs prn Qualifiers: COPD type: unspecified COPD Qualified Code(s): J44.9 - Chronic obstructive pulmonary disease, unspecified (10) Osteomyelitis of foot, right, acute Current Visit: No Status: Acute Assessment and plan: Wound vac intact to the right foot, Continue wound vac to right foot. Ulceration to left foot appears to be healing, no evidence of bacterial infection. Continue wound care dressing changes as per podiatry Continue cam boot to RLE. Patient will f/u with Dr. Pace in wound care with in one week of discharge from the hospital. (11) Polypharmacy Current Visit: Yes Status: Acute Assessment and plan: holding gabapentin, trazadone, keppra, and hydrozyzine. (12) Poorly controlled diabetes mellitus Current Visit: No Status: Chronic Assessment and plan: fasting glucose 189. poor diet intake. change levemir 10 bid. sliding scale insulin. diabetic diet. (13) Hypomagnesemia Current Visit: Yes Status: Acute Assessment and plan: replete (14) Tobacco abuse Current Visit: No Status: Chronic Assessment and plan: will counseled when mental status back to baseline. (15) Obesity (BMI 30.0-34.9) Current Visit: No Status: Chronic Assessment and plan: bmi 34. (16) Hyperkalemia Current Visit: Yes Status: Acute Assessment and plan: stop oral potassium. - Subjective Interval history: Patient still becoming very agitated overnight and received IM Geodon. He is AOX2 during my examination and has no complaints. - Constitutional Vitals: Temp Pulse Resp BP Pulse Ox 97.8 F 76 30 132/56 95 12/26/16 16:00 12/26/16 16:00 12/26/16 16:00 12/26/16 16:00 12/26/16 16:00 General appearance: Present: cooperative, A&O X 2, pleasant, no acute distress, answers questions appropriately Internal Medicine: Result - Labs CBC & Chem 7: 12/26/16 06:33 12/26/16 06:33 Labs: Short CBC 12/26/16 Range/Units 06:33 WBC 9.2 (4.3-11.1) K/mcL Hgb 8.5 L (12.9-16.9) g/dL Hct 26.9 L (37.5-50.1) % Plt Count 290 (140-400) K/mcL Neutrophils # 5.1 (1.6-8.9) K/mcL BMP 12/26/16 06:33 Sodium 143 Potassium 4.5 Chloride 107 Carbon Dioxide 23 BUN 40 H Creatinine 2.19 H Glucose 206 H Calcium 9.4 Liver Function 12/26/16 Range/Units 06:33 Total Bilirubin 0.6 (0.2-1.2) mg/dL Direct Bilirubin 0.2 (0.0-0.5) mg/dL AST 11 (5-34) Units/L ALT 10 (0-55) Units/L Alkaline Phosphatase 99 (38-126) Units/L Albumin 2.7 L (3.5-5.0) g/dL - ABG Interpretation ABG results: ABG ABG pH 7.42 pH Units (7.32-7.45) 12/22/16 04:21 ABG pCO2 44 mmHg (35-45) 12/22/16 04:21 ABG pO2 48 mmHg (85-104) L* 12/22/16 04:21 ABG O2 Saturation 84 % (95-98) L 12/22/16 04:21 - Impressions Impressions Retroperitoneum Ultrasound 12/25/16 18:00 IMPRESSION: Unremarkable ultrasound of the kidneys. D/ / Marshall Soriano MD / Marshall Soriano MD Interpreting Provider: Marshall Soriano MD Consult Discharge Plan - Plan Referrals: Mark Coe MD [Primary Care Provider] - (PT IS GOING TO [facility] NO FOLLOW UP PCP APPOINTMENT NEEDED ) Isac Zuniga, [employer] [Advanced Practice Nurse] - Prescriptions: Oxycodone HCl/Acetaminophen [Percocet 10-325 mg Tablet] 1 each PO Q4HR PRN #30 tablet PRN Reason: Pain Amoxicillin/Clavulanate [Augmentin] 875 mg PO BIDWM #8 tablet
[2016-12-26] MEDS: Cholecalciferol (D-3) 1,000 UNIT TABLET PO SCH (18:42)
[2016-12-26] MEDS ORDERED: Ziprasidone injection 20 MG/ML VIAL IM PRN (18:48)
[2016-12-26 20:34] LABS: ABG Base Excess -5.2 mEq/L (-2.0 to 3.0); ABG HCO3 19.9 mEQ/L (21-27); ABG Oxygen Saturation 100 % (95-98); ABG PCO2 36 mmHg (35-45); ABG PH 7.35 pH Units (7.32-7.45); ABG PO2 236 mmHg (85-104)
[2016-12-26 20:35] LABS: Blood Gas FiO2 100 %
[2016-12-26 20:37] LABS: Basophils # 0.1 K/mcL (0.0-0.2); Basophils % 0.7 %; Eosinophils # 0.2 K/mcL (0.0-0.6); Eosinophils % 2.3 %; Hematocrit 27.9 % (37.5-50.1); Hemoglobin 8.7 g/dL (12.9-16.9); Immature Granulocytes % 0.4 % (0-4); Lymphocytes % 29.4 %; Mean Corpuscular HGB Conc 31.2 g/dL (31.6-35.5); Mean Corpuscular Hemoglobin 26.7 pg (28.0-33.3); Mean Corpuscular Volume 85.6 fL (83.0-100.0); Mean Platelet Volume 9.5 fL (9.4-12.4); Monocytes # 1.1 K/mcL (0.0-1.3); Monocytes % 11.1 %; Neutrophils # 5.7 K/mcL (1.6-8.9); Platelet Count 307 K/mcL (140-400); Red Blood Count 3.26 M/mcL (4.19-5.50); Red Cell Distribution Width 15.5 % (11.5-14.5); Segmented Neutrophils % 56.1 %
[2016-12-26] MEDS ORDERED: *HR* LORazepam 2 MG/ML VIAL IVP PRN ×2 (20:37→20:42)
--- NOTE | 2016-12-26 20:41 | Event Note ---
Date of Encounter: 12/26/16 Time of Encounter: 20:41 On-call Hospitalist note: Rapid response was called as the pt was not responsive. Apparently patient was unresponsive earlier in the day. On my arrival patient was lying in the bed, not responsive to verbal commands. Maintaining airway and has oxygen through nasal cannula. He was initially not responsive to sternal rub. Pupils were normal size and sluggishly reacting to light. Stat ABG was done which was not showing any CO2 retention/respiratory acidosis. Stat EKG showed no acute changes. Labs were drawn for ammonia, lactate levels. Patient started to come around and was responsive to some verbal commands. I suspected postictal state. Patient was on Keppra prior to this presentation and seemed to have been stopped recently. Restarted on keppra 500 mg IV Q12H; Ativan IV PRN; get EEG; neurological checks; transfer to step down unit. Pt remained hemodynamically stable throughout
[2016-12-26 20:42] LABS: INR 1.2; Prothrombin Time 12.8 Seconds (9.4-12.1)
[2016-12-26 20:51] LABS: Albumin 2.8 g/dL (3.5-5.0); Albumin/Globulin Ratio 0.7 (1.1-2.2); Bilirubin,Total 0.7 mg/dL (0.2-1.2); Calcium 8.8 mg/dL (8.6-10.8); Magnesium 1.7 mg/dL (1.6-2.6); Potassium 5.3 mEq/L (3.5-4.5); Total Protein 6.8 g/dL (6.0-8.3)
[2016-12-26] MEDS: Nystatin POWDER 30 GM BOTTLE TP SCH (21:36)
[2016-12-26] MEDS: risperiDONE 0.25 MG TABLET PO SCH (21:36)
[2016-12-26] MEDS ORDERED: Calcium Gluconate 1,000 MG in D5% in Water 100 ML IVPB ONE (21:55)
[2016-12-27] MEDS: Ondansetron 4 MG/2 ML VIAL IV PRN (04:12)
[2016-12-27 06:17] LABS: Basophils # 0.1 K/mcL (0.0-0.2); Basophils % 0.7 %; Eosinophils # 0.2 K/mcL (0.0-0.6); Eosinophils % 2.3 %; Hematocrit 25.2 % (37.5-50.1); Hemoglobin 7.8 g/dL (12.9-16.9); Immature Granulocytes % 0.5 % (0-4); Lymphocytes # 1.7 K/mcL (0.6-4.6); Lymphocytes % 22.3 %; Mean Corpuscular Hemoglobin 26.7 pg (28.0-33.3); Mean Corpuscular Volume 86.3 fL (83.0-100.0); Monocytes # 0.8 K/mcL (0.0-1.3); Monocytes % 10.6 %; Neutrophils # 4.8 K/mcL (1.6-8.9); Platelet Count 262 K/mcL (140-400); Red Blood Count 2.92 M/mcL (4.19-5.50); Red Cell Distribution Width 15.4 % (11.5-14.5); Segmented Neutrophils % 63.6 %
[2016-12-27 06:33] LABS: Calcium 8.7 mg/dL (8.6-10.8); Phosphorous 5.3 mg/dL (2.3-4.7); Potassium 4.5 mEq/L (3.5-4.5)
[2016-12-27] MEDS: *HR* Heparin 5,000 UNIT/ML VIAL SQ SCH ×2 (06:49→16:55)
[2016-12-27] MEDS: Ipratropium/Albuterol Neb 3 ML IH SCH ×3 (07:53→19:51)
[2016-12-27] MEDS: Nicotine 14 MG PATCH.TD24 TD SCH (08:32)
[2016-12-27] MEDS: Insulin DETEMIR 100 UNIT/ML X5UNITS SQ SCH (08:36)
[2016-12-27] MEDS: Insulin LISPRO 300 UNITS/3 ML VIAL SQ SCH ×3 (08:38→16:55)
[2016-12-27] MEDS: Magnesium Oxide 400 MG TABLET PO SCH (09:00)
[2016-12-27] MEDS: Folic Acid 1 MG TABLET PO SCH (09:00)
[2016-12-27] MEDS: Thiamine (B-1) 100 MG TABLET PO SCH (09:00)
[2016-12-27] MEDS: Vitamin B Complex/Vit C/Vit E 1 EACH TABLET PO SCH (09:00)
[2016-12-27] MEDS: Cholecalciferol (D-3) 1,000 UNIT TABLET PO SCH (09:00)
[2016-12-27] MEDS: Nystatin POWDER 30 GM BOTTLE TP SCH ×2 (11:25→16:58)
[2016-12-27] MEDS: Aspirin Enteric Coated 81 MG Tablet PO SCH (13:23)
[2016-12-27] MEDS: Doxycycline 100 MG CAPSULE PO SCH (13:23)
--- NOTE | 2016-12-27 16:18 | Electrocardiograph Report ---
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
--- NOTE | 2016-12-27 17:02 | Neurology Progress Note ---
Date of Encounter: 12/27/16 Time of Encounter: 17:03 Assessment and Plan (1) Altered mental status Current Visit: Yes Status: Acute Qualifiers: Altered mental status type: delirium Qualified Code(s): R41.0 - Disorientation, unspecified (2) Myoclonic jerking Current Visit: Yes Status: Resolved (3) Seizure Current Visit: No Status: Suspected Suspected seizure but no direct witness of typical convulsions and patient unable to complete EEG due to patient being combative. Will have to treat empirically as he was having seizures. Agree with Keppra IV 500mg q12. Please continue medical and supportive care Subjective Principal diagnosis: unresponsiveness Interval history: Patient seen and examined. Patient reportedly had a spell of unresponsiveness thought to be postictal but no motor activity was witnessed. It was reported that the patient was drowsy during most of the day and that during the unresponsiveness he did not respond to sternal rub. No tongue biting, and no urinary incontinence noted. Patient thought to be postical and ativan given. No recurrent seizures reported. Patient has been really drowsy throughout the day and now he sleep on prone position with CPAP on. He resists eye opening and when stimulated he purposefully adjusted his CPAP mask Objective - Constitutional Vitals: Temp Pulse Resp BP Pulse Ox 97.4 F L 66 28 135/77 93 L 12/27/16 11:07 12/27/16 16:19 12/27/16 16:19 12/27/16 16:19 12/27/16 16:19 General appearance: Present: cooperative, A&O X 3, no acute distress, answers questions appropriately - Neurological Exam Sensorimotor examination: Present: other (Unable to assess due to drowsiness/ sedation) Motor Examination: Present: other (unable to assess due to sedation but no gross deficits noted) Sensation intact: Present: other (unable to assess) Posture: Present: other (None) Reflexes: Biceps: 1+, Triceps: 1+, Brachioradialis: 1+, Patella: 1+, Achilles: 1 + Mental Status Examination: Present: stupor (patient sleeps in prone position. Resist eye opening. Does not respond to verbal command. Able to adjust full face mask using left hand without oepning his eyes) Cranial nerve examination: Present: PERRL, EOMI, visual acharya intact, corneal reflexes brisk symmetrically, sensory to face intact, mastication intact, no facial asymmetry is present, hearing is intact symmetrically, soft palate elevates bilaterally upon phonation, gag reflex intact Results - Laboratory Findings CBC and BMP: 12/27/16 05:46 12/27/16 05:46 Abnormal lab findings: Abnormal lab results RBC 2.92 M/mcL (4.19-5.50) L 12/27/16 05:46 Hgb 7.8 g/dL (12.9-16.9) L 12/27/16 05:46 Hct 25.2 % (37.5-50.1) L 12/27/16 05:46 MCH 26.7 pg (28.0-33.3) L 12/27/16 05:46 MCHC 31.0 g/dL (31.6-35.5) L 12/27/16 05:46 RDW 15.4 % (11.5-14.5) H 12/27/16 05:46 PT 12.8 Seconds (9.4-12.1) H 12/26/16 20:25 ABG pO2 236 mmHg (85-104) H 12/26/16 20:25 ABG HCO3 19.9 mEQ/L (21-27) L 12/26/16 20:25 ABG O2 Saturation 100 % (95-98) H 12/26/16 20:25 ABG Base Excess -5.2 mEq/L (-2.0 to 3.0) L 12/26/16 20:25 BUN 54 mg/dL (8-26) H 12/27/16 05:46 Creatinine 2.37 mg/dL (0.72-1.25) H 12/27/16 05:46 Est GFR ( Amer) 34 (> 60) L 12/27/16 05:46 Est GFR (Non-Af Amer) 28 (> 60) L 12/27/16 05:46 Glucose 217 mg/dL (70-99) H 12/27/16 05:46 POC Glucose 145 (58-89) H 12/27/16 11:18 Calculated Osmolality 317 (280-300) H 12/27/16 05:46 Phosphorus 5.3 mg/dL (2.3-4.7) H 12/27/16 05:46 Ferritin 422 ng/ml (22-275) H 12/27/16 05:46 B-Natriuretic Peptide 365 pg/mL (0-100) H 12/02/16 12:23 Albumin 2.8 g/dL (3.5-5.0) L 12/26/16 20:25 Globulin 4.0 g/dL (2.4-3.5) H 12/26/16 20:25 Albumin/Globulin Ratio 0.7 (1.1-2.2) L 12/26/16 20:25 25-OH Vitamin D Total 17 ng/mL (30-80) L 12/26/16 06:33 Urine Clarity Cloudy (Clear) A 12/02/16 12:27 Urine Protein >=300 mg/dL (Neg-Trace) H 12/02/16 12: Urine Glucose (UA) 250 mg/dL (Normal) H 12/02/16 12: Urine Ketones Trace mg/dL (Negative) H 12/02/16 12:27 Urine Blood Large (Negative) H 12/02/16 12:27 Urine Microscopic RBC 15-30 per hpf (0-3) H 12/02/16 12:27 Urine Microscopic WBC 5-15 per hpf (0-3) H 12/02/16 12:27 Ur Squamous Epith Cells Many per lpf (None-Few) H 12/02/16 12:27 Ur Culture Indicated? YES (NO) A 12/02/16 12:27 Stool Occult Blood Positive (Negative) A 12/03/16 14:06 Gabapentin <0.5 ug/mL (2.0-20.0) L 12/02/16 Unknown Consult Discharge Plan - Plan Referrals: Mark Coe MD [Primary Care Provider] - ([facility]ING [facility] NO FOLLOW UP PCP APPOINTMENT NEEDED ) Isac Zuniga CNP [Advanced Practice Nurse] - Prescriptions: Oxycodone HCl/Acetaminophen [Percocet 10-325 mg Tablet] 1 each PO Q4HR PRN #30 tablet PRN Reason: Pain Amoxicillin/Clavulanate [Augmentin] 875 mg PO BIDWM #8 tablet
--- NOTE | 2016-12-27 18:07 | Electrocardiograph Report ---
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
--- NOTE | 2016-12-27 18:08 | Electrocardiograph Report ---
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
--- NOTE | 2016-12-27 18:21 | Internal Med Progress Note ---
Date of Encounter: 12/27/16 Time of Encounter: 21:25 - Assessment and plan (1) DVT prophylaxis Current Visit: No Status: Acute (2) Seizure Current Visit: No Status: Chronic (3) Cerebral hypoxia Current Visit: No Status: Acute (4) Myoclonic jerking Current Visit: Yes Status: Resolved (5) Aspiration pneumonia Current Visit: Yes Status: Acute Qualifiers: Aspiration pneumonia type: due to regurgitated food Laterality: bilateral Lung location: lower lobe of lung Qualified Code(s): J69.0 - Pneumonitis due to inhalation of food and vomit (6) Acute respiratory failure with hypoxia Current Visit: Yes Status: Acute (7) Polypharmacy Current Visit: Yes Status: Acute (8) Hypertension Current Visit: Yes Status: Acute Qualifiers: Hypertension type: essential hypertension Qualified Code(s): I10 - Essential (primary) hypertension (9) PEA (Pulseless electrical activity) Current Visit: Yes Status: Acute (10) Acute worsening of stage 3 chronic kidney disease Current Visit: Yes Status: Acute (11) Acute diastolic heart failure Current Visit: Yes Status: Acute (12) Decubitus ulcer of coccygeal region, stage 2 Current Visit: Yes Status: Acute Assessment and plan: Mr. Regalado is a 61 year old male with multiple co-morbidities including CKD, COPD, diastolic heart failure, and chronic anemia, hypertension, HLD, DM type II who presented with respiratory distress from an ECF. He required intubation and ventilator support after arrival to ED. During intubation he developed PEA and received 2-3 min of CPR. This is the second time he had cardiac arrest with PEA requiring ACLS in the last month. Both occurrences occurred during DANY and hypoxia d/t diastolic heart failure with pulmonary edema. Patient also has encephalopathy related to anoxic brain injury and myoclonic activity noticed during hospital stay. Review of records show that he ahs been having myoclonic jerks in past which has been attributed to renal dysfunction. He had a questionable seizure episode on 11/28 night and was transferred to step down for closer monitoring. # Metabolic encephalopathy: In setting of anoxic brain injury due to PEA, worsened by baseline dementia. CT head negative for acute process. Last night event concerning for seixures. On Keppra. EEG pending # Myoclonic jerks: Could be related to the hypoxic brain damage. Beurology following. Neurology following. Restarted Keppra given concern for seizures. On Gabapentin which is currently tapered off # CKD Stage 3 with DANY: Likely componenet of ATN in setting of cardiac arrest. On IV fluids. # Stage 2 Decubitus ulcer: Wound care. On doxycycline started 12/23 # Acute resp failure with hypoxia: On admission requiring intubation and mech ventillation, currenly improving. Was on diuresis which is currently d/c as pt euvolemic # PEA arrest: related to hypoxia on admission # COPD: stable # Osteomyelitis of foot, right: Wound care, needs f/u with podiatry following d /c # DVT prophylaxis: Sub Q heparin - Time Spent With Patient 25 - 35 minutes - Subjective Interval history: seen and examined at bedside. Unable to obtain any further details. He appears confused constantly moving in the bed - Constitutional Vitals: Temp Pulse Resp BP Pulse Ox 97.4 F L 66 28 135/77 93 L 12/27/16 11:07 12/27/16 16:19 12/27/16 16:19 12/27/16 16:19 12/27/16 16:19 General appearance: Present: cooperative, A&O X 2, pleasant, no acute distress, answers questions appropriately - Head Head exam: Present: atraumatic, normocephalic - Eye Eye exam: Present: PERRL, conjuntiva pink, sclera anicteric Pupils: Present: PERRL - Neck Neck exam general surgery: Present: supple, trachea midline. Absent: lymphadenopathy - Respiratory Respiratory exam: Present: CTAB. Absent: accessory muscle use, rales, rhonchi, wheezes - Cardiovascular Cardiovascular exam: Present: RRR, +S1, +S2. Absent: diastolic murmur, gallop, rubs, systolic murmur - GI/Abdominal GI/Abdominal exam: Present: normal bowel sounds, soft, no peritoneal signs. Absent: distended, tenderness - Extremities Exam Extremities exam: Present: warm, radial pulses palpable and symetrical. Absent : calf tenderness, cyanotic, pedal edema - Neurological Exam Neurological exam: Present: CN II-XII intact, oriented X3, no focal deficits. Absent: pronater drift, facial droop, speech deficit - Skin Skin exam: Present: dry, intact Internal Medicine: Result - Labs CBC & Chem 7: 12/28/16 06:21 12/28/16 05:04 Labs: Short CBC 12/26/16 12/27/16 Range/Units 20:25 05:46 WBC 10.1 7.5 (4.3-11.1) K/mcL Hgb 8.7 L 7.8 L (12.9-16.9) g/dL Hct 27.9 L 25.2 L (37.5-50.1) % Plt Count 307 262 (140-400) K/mcL Neutrophils # 5.7 4.8 (1.6-8.9) K/mcL BMP 12/26/16 12/27/16 20:25 05:46 Sodium 143 143 Potassium 5.3 H 4.5 Chloride 108 108 Carbon Dioxide 18 L 23 BUN 48 H 54 H Creatinine 2.60 H 2.37 H Glucose 130 H 217 H Calcium 8.8 8.7 Cardiac Enzymes 12/26/16 Range/Units 20:25 Troponin I 0.02 (0-0.03) ng/mL Liver Function 12/26/16 Range/Units 20:25 Total Bilirubin 0.7 (0.2-1.2) mg/dL AST 21 (5-34) Units/L ALT 13 (0-55) Units/L Alkaline Phosphatase 114 (38-126) Units/L Albumin 2.8 L (3.5-5.0) g/dL - ABG Interpretation ABG results: ABG ABG pH 7.35 pH Units (7.32-7.45) 12/26/16 20:25 ABG pCO2 36 mmHg (35-45) 12/26/16 20:25 ABG pO2 236 mmHg (85-104) H 12/26/16 20:25 ABG O2 Saturation 100 % (95-98) H 12/26/16 20:25 PT/INR, D-dimer PT 12.8 Seconds (9.4-12.1) H 12/26/16 20:25 Consult Discharge Plan - Plan Referrals: Mark Coe MD [Primary Care Provider] - (PT IS GOING TO ECF NO FOLLOW UP PCP APPOINTMENT NEEDED ) Isac Zuniga CNP [Advanced Practice Nurse] - Prescriptions: Oxycodone HCl/Acetaminophen [Percocet 10-325 mg Tablet] 1 each PO Q4HR PRN #30 tablet PRN Reason: Pain Amoxicillin/Clavulanate [Augmentin] 875 mg PO BIDWM #8 tablet
[2016-12-28] MEDS: *HR* OxyCODONE Immed Rel 5 MG TABLET PO PRN ×2 (01:20→16:50)
[2016-12-28 05:35] LABS: Calcium 8.6 mg/dL (8.6-10.8); Potassium 4.5 mEq/L (3.5-4.5)
[2016-12-28 06:34] LABS: Basophils % 0.4 %; Eosinophils # 0.3 K/mcL (0.0-0.6); Eosinophils % 4.1 %; Hematocrit 25.6 % (37.5-50.1); Immature Granulocytes % 0.4 % (0-4); Immature Platelets 1.2 % (1.1-6.1); Lymphocytes # 1.7 K/mcL (0.6-4.6); Lymphocytes % 22.7 %; Mean Corpuscular HGB Conc 31.3 g/dL (31.6-35.5); Mean Corpuscular Hemoglobin 26.7 pg (28.0-33.3); Mean Corpuscular Volume 85.3 fL (83.0-100.0); Mean Platelet Volume 9.8 fL (9.4-12.4); Monocytes # 0.6 K/mcL (0.0-1.3); Monocytes % 8.7 %; Neutrophils # 4.7 K/mcL (1.6-8.9); Platelet Count 303 K/mcL (140-400); Red Cell Distribution Width 15.4 % (11.5-14.5); Segmented Neutrophils % 63.7 %
[2016-12-28] MEDS: risperiDONE 0.25 MG TABLET PO SCH ×2 (07:34→20:30)
[2016-12-28] MEDS: Doxycycline 100 MG CAPSULE PO SCH ×3 (07:34→20:30)
[2016-12-28] MEDS: *HR* Heparin 5,000 UNIT/ML VIAL SQ SCH ×2 (07:34→16:50)
[2016-12-28] MEDS: Nystatin POWDER 30 GM BOTTLE TP SCH ×4 (07:34→20:49)
[2016-12-28] MEDS: Insulin DETEMIR 100 UNIT/ML X5UNITS SQ SCH ×3 (07:35→20:29)
[2016-12-28] MEDS: Insulin LISPRO 300 UNITS/3 ML VIAL SQ SCH ×5 (07:35→20:34)
[2016-12-28] MEDS: Magnesium Oxide 400 MG TABLET PO SCH ×3 (07:35→20:30)
[2016-12-28 07:38] LABS: Immunoglobulin A (CELIAC) 168 mg/dL (68-408)
[2016-12-28 07:50] LABS: Tissue Transglutaminase IgA 0 U/mL (0-3)
[2016-12-28] MEDS: Ipratropium/Albuterol Neb 3 ML IH SCH ×3 (08:01→21:24)
--- NOTE | 2016-12-28 08:42 | Internal Med Progress Note ---
Date of Encounter: 12/28/16 Time of Encounter: 16:36 - Assessment and plan (1) DVT prophylaxis Current Visit: No Status: Acute (2) Seizure Current Visit: No Status: Chronic (3) Cerebral hypoxia Current Visit: No Status: Acute (4) Myoclonic jerking Current Visit: Yes Status: Resolved (5) Aspiration pneumonia Current Visit: Yes Status: Acute Qualifiers: Aspiration pneumonia type: due to regurgitated food Laterality: bilateral Lung location: lower lobe of lung Qualified Code(s): J69.0 - Pneumonitis due to inhalation of food and vomit (6) Acute respiratory failure with hypoxia Current Visit: Yes Status: Acute (7) Polypharmacy Current Visit: Yes Status: Acute (8) Hypertension Current Visit: Yes Status: Acute Qualifiers: Hypertension type: essential hypertension Qualified Code(s): I10 - Essential (primary) hypertension (9) PEA (Pulseless electrical activity) Current Visit: Yes Status: Acute (10) Acute worsening of stage 3 chronic kidney disease Current Visit: Yes Status: Acute (11) Acute diastolic heart failure Current Visit: Yes Status: Acute (12) Decubitus ulcer of coccygeal region, stage 2 Current Visit: Yes Status: Acute Assessment and plan: Mr. Regalado is a 61 year old male with multiple co-morbidities including CKD, COPD, diastolic heart failure, and chronic anemia, hypertension, HLD, DM type II who presented with respiratory distress from an ECF. He required intubation and ventilator support after arrival to ED. During intubation he developed PEA and received 2-3 min of CPR. This is the second time he had cardiac arrest with PEA requiring ACLS in the last month. Both occurrences occurred during DANY and hypoxia d/t diastolic heart failure with pulmonary edema. Patient also has encephalopathy related to anoxic brain injury and myoclonic activity noticed during hospital stay. Review of records show that he ahs been having myoclonic jerks in past which has been attributed to renal dysfunction. He had a questionable seizure episode on 11/28 night and was transferred to step down for closer monitoring. # Metabolic encephalopathy: In setting of anoxic brain injury due to PEA, worsened by baseline dementia. CT head negative for acute process. Events from night concerning for seizures. Unable to complete EEG brain as he has been constantly moving during the procedure. Neuro has evaluated [pt and recommends restarting keppra BID. 12/28: He is very pleasant, alert and oriented this and answers all my questions appropriately. # Myoclonic jerks: Could be related to the hypoxic brain damage. Neurology following. Neurology following. Restarted Keppra given concern for seizures. On Gabapentin which is currently tapered off # CKD Stage 3 with DANY: Likely componenet of ATN in setting of cardiac arrest. On IV fluids. # Stage 2 Decubitus ulcer: Wound care. On doxycycline started 12/23 # Acute resp failure with hypoxia: On admission requiring intubation and mech ventillation, currenly improving. Was on diuresis which is currently d/c as pt euvolemic # PEA arrest: related to hypoxia on admission # COPD: stable # Osteomyelitis of foot, right: Wound care, needs f/u with podiatry following d /c # DVT prophylaxis: Sub Q heparin - Time Spent With Patient 25 - 35 minutes - Subjective Interval history: seen and examined at bedside. He is alert and oriented this morning and answering all my questions appropriately. Denies any chest pain, palpitations, sob, abdominal pain, urinary symptoms. No further episodes of jerks/seizure like activity noted. - Constitutional Vitals: Temp Pulse Resp BP Pulse Ox 98.8 F 62 18 150/65 99 12/28/16 07:57 12/28/16 07:57 12/28/16 08:01 12/28/16 07:57 12/28/16 08:01 General appearance: Present: cooperative, A&O X 2, pleasant, no acute distress, answers questions appropriately - Head Head exam: Present: atraumatic, normocephalic - Eye Eye exam: Present: PERRL, conjuntiva pink, sclera anicteric Pupils: Present: PERRL - Neck Neck exam general surgery: Present: supple, trachea midline. Absent: lymphadenopathy - Respiratory Respiratory exam: Present: CTAB. Absent: accessory muscle use, rales, rhonchi, wheezes - Cardiovascular Cardiovascular exam: Present: RRR, +S1, +S2. Absent: diastolic murmur, gallop, rubs, systolic murmur - GI/Abdominal GI/Abdominal exam: Present: normal bowel sounds, soft, no peritoneal signs. Absent: distended, tenderness - Extremities Exam Extremities exam: Present: warm, radial pulses palpable and symetrical. Absent : calf tenderness, cyanotic, pedal edema - Neurological Exam Neurological exam: Present: CN II-XII intact, oriented X3, no focal deficits. Absent: pronater drift, facial droop, speech deficit - Skin Skin exam: Present: dry, intact Internal Medicine: Result - Labs CBC & Chem 7: 12/28/16 06:21 12/28/16 05:04 Labs: Short CBC 12/28/16 Range/Units 06:21 WBC 7.4 (4.3-11.1) K/mcL Hgb 8.0 L (12.9-16.9) g/dL Hct 25.6 L (37.5-50.1) % Plt Count 303 (140-400) K/mcL Neutrophils # 4.7 (1.6-8.9) K/mcL BMP 12/28/16 05:04 Sodium 142 Potassium 4.5 Chloride 109 Carbon Dioxide 21 BUN 44 H D Creatinine 1.90 H Glucose 312 H Calcium 8.6 - ABG Interpretation ABG results: ABG ABG pH 7.35 pH Units (7.32-7.45) 12/26/16 20:25 ABG pCO2 36 mmHg (35-45) 12/26/16 20:25 ABG pO2 236 mmHg (85-104) H 12/26/16 20:25 ABG O2 Saturation 100 % (95-98) H 12/26/16 20:25 PT/INR, D-dimer PT 12.8 Seconds (9.4-12.1) H 12/26/16 20:25 Consult Discharge Plan - Plan Referrals: Mark Coe MD [Primary Care Provider] - (PT IS GOING TO [facility] NO FOLLOW UP PCP APPOINTMENT NEEDED ) Isac Zuniga CNP [Advanced Practice Nurse] - Prescriptions: RX: Oxycodone HCl/Acetaminophen [Percocet 10-325 mg Tablet] 1 each PO Q4HR PRN # 30 tablet PRN Reason: Pain RX: Amoxicillin/Clavulanate [Augmentin] 875 mg PO BIDWM #8 tablet
[2016-12-28] MEDS: Nicotine 14 MG PATCH.TD24 TD SCH (08:48)
[2016-12-28] MEDS: Cholecalciferol (D-3) 1,000 UNIT TABLET PO SCH (08:50)
[2016-12-28] MEDS: Aspirin Enteric Coated 81 MG Tablet PO SCH (08:50)
[2016-12-28] MEDS: Vitamin B Complex/Vit C/Vit E 1 EACH TABLET PO SCH (08:50)
[2016-12-28] MEDS: Thiamine (B-1) 100 MG TABLET PO SCH (08:50)
[2016-12-28] MEDS: Folic Acid 1 MG TABLET PO SCH (08:50)
[2016-12-29] MEDS: *HR* Heparin 5,000 UNIT/ML VIAL SQ SCH ×2 (05:57→16:26)
[2016-12-29 06:16] LABS: Basophils % 0.4 %; Eosinophils # 0.4 K/mcL (0.0-0.6); Eosinophils % 8.5 %; Hematocrit 27.5 % (37.5-50.1); Hemoglobin 8.3 g/dL (12.9-16.9); Immature Granulocytes % 0.4 % (0-4); Lymphocytes # 1.6 K/mcL (0.6-4.6); Lymphocytes % 31.6 %; Mean Corpuscular HGB Conc 30.2 g/dL (31.6-35.5); Mean Corpuscular Volume 86.2 fL (83.0-100.0); Mean Platelet Volume 9.8 fL (9.4-12.4); Monocytes # 0.5 K/mcL (0.0-1.3); Monocytes % 9.1 %; Neutrophils # 2.5 K/mcL (1.6-8.9); Platelet Count 294 K/mcL (140-400); Red Blood Count 3.19 M/mcL (4.19-5.50); Red Cell Distribution Width 15.3 % (11.5-14.5)
[2016-12-29 06:32] LABS: Calcium 8.8 mg/dL (8.6-10.8); Potassium 4.3 mEq/L (3.5-4.5)
[2016-12-29] MEDS: Aspirin Enteric Coated 81 MG Tablet PO SCH (08:28)
[2016-12-29] MEDS: Insulin DETEMIR 100 UNIT/ML X5UNITS SQ SCH ×2 (08:28→20:24)
[2016-12-29] MEDS: Magnesium Oxide 400 MG TABLET PO SCH ×2 (08:28→20:24)
[2016-12-29] MEDS: Vitamin B Complex/Vit C/Vit E 1 EACH TABLET PO SCH (08:28)
[2016-12-29] MEDS: Doxycycline 100 MG CAPSULE PO SCH (08:28)
[2016-12-29] MEDS: Cholecalciferol (D-3) 1,000 UNIT TABLET PO SCH (08:28)
[2016-12-29] MEDS: Thiamine (B-1) 100 MG TABLET PO SCH (08:28)
[2016-12-29] MEDS: Folic Acid 1 MG TABLET PO SCH (08:29)
[2016-12-29] MEDS: Nicotine 14 MG PATCH.TD24 TD SCH (08:29)
[2016-12-29] MEDS: Insulin LISPRO 300 UNITS/3 ML VIAL SQ SCH ×4 (08:31→20:25)
[2016-12-29] MEDS: *HR* OxyCODONE Immed Rel 5 MG TABLET PO PRN ×2 (08:32→16:35)
[2016-12-29] MEDS: Ipratropium/Albuterol Neb 3 ML IH SCH ×3 (08:53→21:42)
[2016-12-29] MEDS: Nystatin POWDER 30 GM BOTTLE TP SCH ×3 (09:31→20:29)
--- NOTE | 2016-12-29 15:30 | Internal Med Progress Note ---
Date of Encounter: 12/29/16 Time of Encounter: 15:28 - Assessment and plan (1) DVT prophylaxis Current Visit: No Status: Acute (2) Seizure Current Visit: No Status: Chronic (3) Cerebral hypoxia Current Visit: No Status: Acute (4) Myoclonic jerking Current Visit: Yes Status: Resolved (5) Aspiration pneumonia Current Visit: Yes Status: Acute Qualifiers: Aspiration pneumonia type: due to regurgitated food Laterality: bilateral Lung location: lower lobe of lung Qualified Code(s): J69.0 - Pneumonitis due to inhalation of food and vomit (6) Acute respiratory failure with hypoxia Current Visit: Yes Status: Acute (7) Polypharmacy Current Visit: Yes Status: Acute (8) Hypertension Current Visit: Yes Status: Acute Qualifiers: Hypertension type: essential hypertension Qualified Code(s): I10 - Essential (primary) hypertension (9) PEA (Pulseless electrical activity) Current Visit: Yes Status: Acute (10) Acute worsening of stage 3 chronic kidney disease Current Visit: Yes Status: Acute (11) Acute diastolic heart failure Current Visit: Yes Status: Acute (12) Decubitus ulcer of coccygeal region, stage 2 Current Visit: Yes Status: Acute Assessment and plan: Mr. Regalado is a 61 year old male with multiple co-morbidities including CKD, COPD, diastolic heart failure, and chronic anemia, hypertension, HLD, DM type II who presented with respiratory distress from an ECF. He required intubation and ventilator support after arrival to ED. During intubation he developed PEA and received 2-3 min of CPR. This is the second time he had cardiac arrest with PEA requiring ACLS in the last month. Both occurrences occurred during DANY and hypoxia d/t diastolic heart failure with pulmonary edema. Patient also has encephalopathy related to anoxic brain injury and myoclonic activity noticed during hospital stay. Review of records show that he ahs been having myoclonic jerks in past which has been attributed to renal dysfunction. He had a questionable seizure episode on 11/28 night and was transferred to step down for closer monitoring. # Metabolic encephalopathy: In setting of anoxic brain injury due to PEA, worsened by baseline dementia. CT head negative for acute process. Events from night concerning for seizures. Unable to complete EEG brain as he has been constantly moving during the procedure. Neuro has evaluated [pt and recommends restarting keppra BID. 12/28: He is very pleasant, alert and oriented this and answers all my questions appropriately. # Myoclonic jerks: Could be related to the hypoxic brain damage. Restarted Keppra given concern for seizures. On Gabapentin which is currently tapered off. No further episodes noticed in the last 2 days. # CKD Stage 3 with DANY: Likely component of ATN in setting of cardiac arrest. On IV fluids. Improving. will d/c fluids and monitor. # Stage 2 Decubitus ulcer: Wound care. On doxycycline started 12/23 # Acute resp failure with hypoxia: On admission requiring intubation and mech ventillation, currenly improving. Was on diuresis which is currently d/c as pt euvolemic. # PEA arrest: related to hypoxia on admission # COPD: stable # Osteomyelitis of foot, right: Wound care, needs f/u with podiatry following d /c # DVT prophylaxis: Sub Q heparin - Time Spent With Patient 25 - 35 minutes - Subjective Interval history: seen and examined at bedside. He is alert and oriented this morning and answering all my questions appropriately. Denies any chest pain, palpitations, sob, abdominal pain, urinary symptoms. No further episodes of jerks/seizure like activity noted. - Constitutional Vitals: Temp Pulse Resp BP Pulse Ox 98.2 F 58 18 153/65 96 12/29/16 15:20 12/29/16 15:20 12/29/16 15:20 12/29/16 15:20 12/29/16 15:20 General appearance: Present: cooperative, A&O X 2, pleasant, no acute distress, answers questions appropriately - Head Head exam: Present: atraumatic, normocephalic - Eye Eye exam: Present: PERRL, conjuntiva pink, sclera anicteric Pupils: Present: PERRL - Neck Neck exam general surgery: Present: supple, trachea midline. Absent: lymphadenopathy - Respiratory Respiratory exam: Present: CTAB. Absent: accessory muscle use, rales, rhonchi, wheezes - Cardiovascular Cardiovascular exam: Present: RRR, +S1, +S2. Absent: diastolic murmur, gallop, rubs, systolic murmur - GI/Abdominal GI/Abdominal exam: Present: normal bowel sounds, soft, no peritoneal signs. Absent: distended, tenderness - Extremities Exam Extremities exam: Present: warm, radial pulses palpable and symetrical. Absent : calf tenderness, cyanotic, pedal edema - Neurological Exam Neurological exam: Present: CN II-XII intact, oriented X3, no focal deficits. Absent: pronater drift, facial droop, speech deficit - Skin Skin exam: Present: dry, intact Internal Medicine: Result - Labs CBC & Chem 7: 12/29/16 05:20 12/29/16 05:20 Labs: Short CBC 12/29/16 Range/Units 05:20 WBC 4.9 (4.3-11.1) K/mcL Hgb 8.3 L (12.9-16.9) g/dL Hct 27.5 L (37.5-50.1) % Plt Count 294 (140-400) K/mcL Neutrophils # 2.5 (1.6-8.9) K/mcL BMP 12/29/16 05:20 Sodium 141 Potassium 4.3 Chloride 107 Carbon Dioxide 27 BUN 32 H D Creatinine 1.49 H Glucose 303 H Calcium 8.8 - ABG Interpretation ABG results: ABG ABG pH 7.35 pH Units (7.32-7.45) 12/26/16 20:25 ABG pCO2 36 mmHg (35-45) 12/26/16 20:25 ABG pO2 236 mmHg (85-104) H 12/26/16 20:25 ABG O2 Saturation 100 % (95-98) H 12/26/16 20:25 PT/INR, D-dimer PT 12.8 Seconds (9.4-12.1) H 12/26/16 20:25 - VTE Documentation of Mechanical Device: Intermittent pneumatic compression device Consult Discharge Plan - Plan Referrals: Mark Coe MD [Primary Care Provider] - (PT IS GOING TO ECF NO FOLLOW UP PCP APPOINTMENT NEEDED ) Isac Zuniga CNP [Advanced Practice Nurse] - Prescriptions: Oxycodone HCl/Acetaminophen [Percocet 10-325 mg Tablet] 1 each PO Q4HR PRN #30 tablet PRN Reason: Pain Amoxicillin/Clavulanate [Augmentin] 875 mg PO BIDWM #8 tablet
[2016-12-29] MEDS: risperiDONE 0.25 MG TABLET PO SCH (20:24)
[2016-12-30] MEDS: *HR* OxyCODONE Immed Rel 5 MG TABLET PO PRN ×2 (04:23→23:58)
[2016-12-30 06:05] LABS: Hematocrit 27.3 % (37.5-50.1); Hemoglobin 8.7 g/dL (12.9-16.9); Mean Corpuscular HGB Conc 31.9 g/dL (31.6-35.5); Mean Corpuscular Hemoglobin 26.5 pg (28.0-33.3); Mean Corpuscular Volume 83.2 fL (83.0-100.0); Mean Platelet Volume 9.1 fL (9.4-12.4); Platelet Count 287 K/mcL (140-400); Red Blood Count 3.28 M/mcL (4.19-5.50); Red Cell Distribution Width 14.8 % (11.5-14.5); Segmented Neutrophils % 46.7 %
[2016-12-30 06:06] LABS: Basophils % 0.6 %; Eosinophils # 0.4 K/mcL (0.0-0.6); Eosinophils % 8.6 %; Immature Granulocytes % 1.2 % (0-4); Lymphocytes # 1.8 K/mcL (0.6-4.6); Lymphocytes % 34.6 %; Monocytes # 0.4 K/mcL (0.0-1.3); Monocytes % 8.3 %; Neutrophils # 2.4 K/mcL (1.6-8.9)
[2016-12-30 06:18] LABS: BUN/Creatinine Ratio 16 (6-26); Blood Urea Nitrogen 22 mg/dL (8-26); Calcium 8.7 mg/dL (8.6-10.8); Carbon Dioxide 26 mEq/L (19-29); Chloride 104 mEq/L (98-109); Glucose 357 mg/dL (70-99); Osmolality,Calculated 306 (280-300); Potassium 4.5 mEq/L (3.5-4.5); Sodium 139 mEq/L (136-145); eGFR For African Americans > 60 (> 60); eGFR For Non-African Americans 52 (> 60)
[2016-12-30] MEDS: *HR* Heparin 5,000 UNIT/ML VIAL SQ SCH ×2 (06:36→16:52)
[2016-12-30] MEDS: Vitamin B Complex/Vit C/Vit E 1 EACH TABLET PO SCH (07:26)
[2016-12-30] MEDS: Magnesium Oxide 400 MG TABLET PO SCH ×2 (07:26→20:32)
[2016-12-30] MEDS: Aspirin Enteric Coated 81 MG Tablet PO SCH (07:26)
[2016-12-30] MEDS: Cholecalciferol (D-3) 1,000 UNIT TABLET PO SCH (07:26)
[2016-12-30] MEDS: Folic Acid 1 MG TABLET PO SCH (07:26)
[2016-12-30] MEDS: Nicotine 14 MG PATCH.TD24 TD SCH (07:26)
[2016-12-30] MEDS: Thiamine (B-1) 100 MG TABLET PO SCH (07:26)
[2016-12-30] MEDS: Nystatin POWDER 30 GM BOTTLE TP SCH ×3 (07:27→20:30)
[2016-12-30] MEDS: Ipratropium/Albuterol Neb 3 ML IH SCH ×3 (07:36→21:50)
[2016-12-30] MEDS: Insulin DETEMIR 100 UNIT/ML X5UNITS SQ SCH ×2 (08:20→20:33)
[2016-12-30] MEDS: Insulin LISPRO 300 UNITS/3 ML VIAL SQ SCH ×4 (08:20→20:32)
--- NOTE | 2016-12-30 13:33 | Internal Med Progress Note ---
Date of Encounter: 12/30/16 Time of Encounter: 13:31 - Assessment and plan (1) DVT prophylaxis Current Visit: No Status: Acute (2) Seizure Current Visit: No Status: Chronic (3) Cerebral hypoxia Current Visit: No Status: Acute (4) Myoclonic jerking Current Visit: Yes Status: Resolved (5) Aspiration pneumonia Current Visit: Yes Status: Acute Qualifiers: Aspiration pneumonia type: due to regurgitated food Laterality: bilateral Lung location: lower lobe of lung Qualified Code(s): J69.0 - Pneumonitis due to inhalation of food and vomit (6) Acute respiratory failure with hypoxia Current Visit: Yes Status: Acute (7) Polypharmacy Current Visit: Yes Status: Acute (8) Hypertension Current Visit: Yes Status: Acute Qualifiers: Hypertension type: essential hypertension Qualified Code(s): I10 - Essential (primary) hypertension (9) PEA (Pulseless electrical activity) Current Visit: Yes Status: Acute (10) Acute worsening of stage 3 chronic kidney disease Current Visit: Yes Status: Acute (11) Acute diastolic heart failure Current Visit: Yes Status: Acute (12) Decubitus ulcer of coccygeal region, stage 2 Current Visit: Yes Status: Acute Assessment and plan: Mr. Regalado is a 61 year old male with multiple co-morbidities including CKD, COPD, diastolic heart failure, and chronic anemia, hypertension, HLD, DM type II who presented with respiratory distress from an ECF. He required intubation and ventilator support after arrival to ED. During intubation he developed PEA and received 2-3 min of CPR. This is the second time he had cardiac arrest with PEA requiring ACLS in the last month. Both occurrences occurred during DANY and hypoxia d/t diastolic heart failure with pulmonary edema. Patient also has encephalopathy related to anoxic brain injury and myoclonic activity noticed during hospital stay. Review of records show that he ahs been having myoclonic jerks in past which has been attributed to renal dysfunction. He had a questionable seizure episode on 11/28 night and was transferred to step down for closer monitoring. # Metabolic encephalopathy: In setting of anoxic brain injury due to PEA, worsened by baseline dementia. CT head negative for acute process. Events from night concerning for seizures. Unable to complete EEG brain as he has been constantly moving during the procedure. Neuro has evaluated pt and recommends restarting keppra BID. No furtehr episodes after starting keppra. # Myoclonic jerks: Could be related to the hypoxic brain damage. Restarted Keppra given concern for seizures. On Gabapentin which is currently tapered off. No further episodes noticed in the last 2 days. # CKD Stage 3 with DANY: Prerenal and component of ATN in setting of cardiac arrest. Improving. d/c fluids # Stage 2 Decubitus ulcer: Wound care. On doxycycline started 12/23 # Acute resp failure with hypoxia: On admission requiring intubation and mech ventillation, currenly improving. Was on diuresis which is currently d/c as pt euvolemic. # PEA arrest: related to hypoxia on admission # COPD: stable # Osteomyelitis of foot, right: completed treatement per records. Wound care, needs f/u with podiatry following d/c # DVT prophylaxis: Sub Q heparin - Time Spent With Patient 25 - 35 minutes - Subjective Interval history: seen and examined at bedside. He is alert and oriented this morning and answering all my questions appropriately. Denies any chest pain, palpitations, sob, abdominal pain, urinary symptoms. No further episodes of jerks/seizure like activity noted. - Constitutional Vitals: Temp Pulse Resp BP Pulse Ox 98.7 F 62 16 132/69 99 12/30/16 11:00 12/30/16 11:30 12/30/16 11:00 12/30/16 11:00 12/30/16 11:00 General appearance: Present: cooperative, A&O X 2, pleasant, no acute distress, answers questions appropriately - Head Head exam: Present: atraumatic, normocephalic - Eye Eye exam: Present: PERRL, conjuntiva pink, sclera anicteric Pupils: Present: PERRL - Neck Neck exam general surgery: Present: supple, trachea midline. Absent: lymphadenopathy - Respiratory Respiratory exam: Present: CTAB. Absent: accessory muscle use, rales, rhonchi, wheezes - Cardiovascular Cardiovascular exam: Present: RRR, +S1, +S2. Absent: diastolic murmur, gallop, rubs, systolic murmur - GI/Abdominal GI/Abdominal exam: Present: normal bowel sounds, soft, no peritoneal signs. Absent: distended, tenderness - Extremities Exam Extremities exam: Present: warm, radial pulses palpable and symetrical. Absent : calf tenderness, cyanotic, pedal edema - Neurological Exam Neurological exam: Present: CN II-XII intact, oriented X3, no focal deficits. Absent: pronater drift, facial droop, speech deficit - Skin Skin exam: Present: dry, intact Internal Medicine: Result - Labs CBC & Chem 7: 12/30/16 05:53 12/30/16 05:53 Labs: Short CBC 12/30/16 Range/Units 05:53 WBC 5.1 (4.3-11.1) K/mcL Hgb 8.7 L (12.9-16.9) g/dL Hct 27.3 L (37.5-50.1) % Plt Count 287 (140-400) K/mcL Neutrophils # 2.4 (1.6-8.9) K/mcL BMP 12/30/16 05:53 Sodium 139 Potassium 4.5 Chloride 104 Carbon Dioxide 26 BUN 22 D Creatinine 1.39 H Glucose 357 H Calcium 8.7 - ABG Interpretation ABG results: ABG ABG pH 7.35 pH Units (7.32-7.45) 12/26/16 20:25 ABG pCO2 36 mmHg (35-45) 12/26/16 20:25 ABG pO2 236 mmHg (85-104) H 12/26/16 20:25 ABG O2 Saturation 100 % (95-98) H 12/26/16 20:25 PT/INR, D-dimer PT 12.8 Seconds (9.4-12.1) H 12/26/16 20:25 - VTE Documentation of Mechanical Device: Intermittent pneumatic compression device Consult Discharge Plan - Plan Referrals: Mark Coe MD [Primary Care Provider] - (PT IS GOING TO [facility] NO FOLLOW UP PCP APPOINTMENT NEEDED ) Isac Zuniga CNP [Advanced Practice Nurse] - Prescriptions: Oxycodone HCl/Acetaminophen [Percocet 10-325 mg Tablet] 1 each PO Q4HR PRN #30 tablet PRN Reason: Pain Amoxicillin/Clavulanate [Augmentin] 875 mg PO BIDWM #8 tablet
[2016-12-30] MEDS: risperiDONE 0.25 MG TABLET PO SCH (20:32)
[2016-12-31 04:41] LABS: Basophils % 0.5 %; Eosinophils # 0.5 K/mcL (0.0-0.6); Eosinophils % 8.1 %; Hematocrit 27.1 % (37.5-50.1); Hemoglobin 8.9 g/dL (12.9-16.9); Immature Granulocytes % 1.7 % (0-4); Lymphocytes # 2.2 K/mcL (0.6-4.6); Lymphocytes % 38.1 %; Mean Corpuscular HGB Conc 32.8 g/dL (31.6-35.5); Mean Corpuscular Hemoglobin 26.8 pg (28.0-33.3); Mean Corpuscular Volume 81.6 fL (83.0-100.0); Mean Platelet Volume 9.4 fL (9.4-12.4); Monocytes # 0.4 K/mcL (0.0-1.3); Monocytes % 6.8 %; Neutrophils # 2.6 K/mcL (1.6-8.9); Platelet Count 318 K/mcL (140-400); Red Blood Count 3.32 M/mcL (4.19-5.50); Red Cell Distribution Width 14.7 % (11.5-14.5); Segmented Neutrophils % 44.8 %
[2016-12-31 04:55] LABS: BUN/Creatinine Ratio 18 (6-26); Blood Urea Nitrogen 22 mg/dL (8-26); Calcium 8.8 mg/dL (8.6-10.8); Carbon Dioxide 23 mEq/L (19-29); Chloride 104 mEq/L (98-109); Glucose 400 mg/dL (70-99); Magnesium 1.4 mg/dL (1.6-2.6); Osmolality,Calculated 302 (280-300); Potassium 4.2 mEq/L (3.5-4.5); Sodium 136 mEq/L (136-145); eGFR For African Americans > 60 (> 60); eGFR For Non-African Americans 60 (> 60)
[2016-12-31 05:04] LABS: Platelet Estimate Normal (Normal)
[2016-12-31] MEDS: *HR* Heparin 5,000 UNIT/ML VIAL SQ SCH ×2 (05:32→16:58)
[2016-12-31] MEDS: Ipratropium/Albuterol Neb 3 ML IH SCH ×3 (07:49→20:19)
[2016-12-31] MEDS ORDERED: Magnesium Sulfate 2 GM in D5% in Water 100 ML IVPB ONE (08:07)
[2016-12-31] MEDS: Vitamin B Complex/Vit C/Vit E 1 EACH TABLET PO SCH (08:15)
[2016-12-31] MEDS: Aspirin Enteric Coated 81 MG Tablet PO SCH (08:16)
[2016-12-31] MEDS: Thiamine (B-1) 100 MG TABLET PO SCH (08:16)
[2016-12-31] MEDS: Folic Acid 1 MG TABLET PO SCH (08:16)
[2016-12-31] MEDS: Magnesium Oxide 400 MG TABLET PO SCH ×2 (08:16→20:44)
[2016-12-31] MEDS: Cholecalciferol (D-3) 1,000 UNIT TABLET PO SCH (08:16)
[2016-12-31] MEDS: Insulin LISPRO 300 UNITS/3 ML VIAL SQ SCH ×4 (08:17→20:44)
[2016-12-31] MEDS: Insulin DETEMIR 100 UNIT/ML X5UNITS SQ SCH ×2 (08:17→20:44)
[2016-12-31] MEDS: Nicotine 14 MG PATCH.TD24 TD SCH (08:17)
[2016-12-31] MEDS: Nystatin POWDER 30 GM BOTTLE TP SCH ×3 (10:07→21:05)
--- NOTE | 2016-12-31 14:24 | Internal Med Progress Note ---
Date of Encounter: 12/31/16 Time of Encounter: 14:20 - Assessment and plan (1) DVT prophylaxis Current Visit: No Status: Acute (2) Seizure Current Visit: No Status: Chronic (3) Cerebral hypoxia Current Visit: No Status: Acute (4) Myoclonic jerking Current Visit: Yes Status: Resolved (5) Aspiration pneumonia Current Visit: Yes Status: Acute Qualifiers: Aspiration pneumonia type: due to regurgitated food Laterality: bilateral Lung location: lower lobe of lung Qualified Code(s): J69.0 - Pneumonitis due to inhalation of food and vomit (6) Acute respiratory failure with hypoxia Current Visit: Yes Status: Acute (7) Polypharmacy Current Visit: Yes Status: Acute (8) Hypertension Current Visit: Yes Status: Acute Qualifiers: Hypertension type: essential hypertension Qualified Code(s): I10 - Essential (primary) hypertension (9) PEA (Pulseless electrical activity) Current Visit: Yes Status: Acute (10) Acute worsening of stage 3 chronic kidney disease Current Visit: Yes Status: Acute (11) Acute diastolic heart failure Current Visit: Yes Status: Acute (12) Decubitus ulcer of coccygeal region, stage 2 Current Visit: Yes Status: Acute Assessment and plan: Mr. Regalado is a 61 year old male with multiple co-morbidities including CKD, COPD, diastolic heart failure, and chronic anemia, hypertension, HLD, DM type II who presented with respiratory distress from an ECF. He required intubation and ventilator support after arrival to ED. During intubation he developed PEA and received 2-3 min of CPR. This is the second time he had cardiac arrest with PEA requiring ACLS in the last month. Both occurrences occurred during DANY and hypoxia d/t diastolic heart failure with pulmonary edema. Patient also has encephalopathy related to anoxic brain injury and myoclonic activity noticed during hospital stay. Review of records show that he ahs been having myoclonic jerks in past which has been attributed to renal dysfunction. He had a questionable seizure episode on 11/28 night and was transferred to step down for closer monitoring. # Metabolic encephalopathy: In setting of anoxic brain injury due to PEA, worsened by baseline dementia. CT head negative for acute process. Events from night concerning for seizures. Unable to complete EEG brain as he has been constantly moving during the procedure. Neuro has evaluated pt and recommends restarting keppra BID. No further episodes after starting keppra. He is alert , oriented and appropriately responding to all questions for last 5 days. # Myoclonic jerks: Could be related to the hypoxic brain damage. Restarted Keppra given concern for seizures. On Gabapentin which is currently tapered off. No further episodes noticed since starting on keppra # CKD Stage 3 with DANY: Prerenal and component of ATN in setting of cardiac arrest. Improving. d/c fluids # Stage 2 Decubitus ulcer: Wound care. Completed course of doxycyline. # Acute resp failure with hypoxia: On admission requiring intubation and mech ventillation, resolved. Was on diuresis which is currently d/c as pt euvolemic. # PEA arrest: related to hypoxia on admission # COPD: stable # Osteomyelitis of foot, right: completed treatment per records. Wound care, needs f/u with podiatry following d/c # DVT prophylaxis: Sub Q heparin # Dispo: Medically stable to discharged to [facility]. Awaiting bed. CM and SW following. - Time Spent With Patient 25 - 35 minutes - Subjective Interval history: seen and examined at bedside. He is alert and oriented this morning and answering all my questions appropriately. Denies any chest pain, palpitations, sob, abdominal pain, urinary symptoms. No further episodes of seizure like activity noted. eager to be discharged to rehab - Constitutional Vitals: Temp Pulse Resp BP Pulse Ox 98.2 F 59 16 153/69 96 12/31/16 13:00 12/31/16 13:00 12/31/16 13:00 12/31/16 13:00 12/31/16 13:00 General appearance: Present: cooperative, A&O X 2, pleasant, no acute distress, answers questions appropriately - Head Head exam: Present: atraumatic, normocephalic - Eye Eye exam: Present: PERRL, conjuntiva pink, sclera anicteric Pupils: Present: PERRL - Neck Neck exam general surgery: Present: supple, trachea midline. Absent: lymphadenopathy - Respiratory Respiratory exam: Present: CTAB. Absent: accessory muscle use, rales, rhonchi, wheezes - Cardiovascular Cardiovascular exam: Present: RRR, +S1, +S2. Absent: diastolic murmur, gallop, rubs, systolic murmur - GI/Abdominal GI/Abdominal exam: Present: normal bowel sounds, soft, no peritoneal signs. Absent: distended, tenderness - Extremities Exam Extremities exam: Present: warm, radial pulses palpable and symetrical. Absent : calf tenderness, cyanotic, pedal edema - Neurological Exam Neurological exam: Present: CN II-XII intact, oriented X3, no focal deficits. Absent: pronater drift, facial droop, speech deficit - Skin Skin exam: Present: dry, intact Internal Medicine: Result - Labs CBC & Chem 7: 12/31/16 04:17 12/31/16 04:17 Labs: Short CBC 12/31/16 Range/Units 04:17 WBC 5.8 (4.3-11.1) K/mcL Hgb 8.9 L (12.9-16.9) g/dL Hct 27.1 L (37.5-50.1) % Plt Count 318 (140-400) K/mcL Neutrophils # 2.6 (1.6-8.9) K/mcL BMP 12/31/16 04:17 Sodium 136 Potassium 4.2 Chloride 104 Carbon Dioxide 23 BUN 22 Creatinine 1.23 Glucose 400 H Calcium 8.8 - ABG Interpretation ABG results: ABG ABG pH 7.35 pH Units (7.32-7.45) 12/26/16 20:25 ABG pCO2 36 mmHg (35-45) 12/26/16 20:25 ABG pO2 236 mmHg (85-104) H 12/26/16 20:25 ABG O2 Saturation 100 % (95-98) H 12/26/16 20:25 PT/INR, D-dimer PT 12.8 Seconds (9.4-12.1) H 12/26/16 20:25 - VTE Documentation of Mechanical Device: Intermittent pneumatic compression device Consult Discharge Plan - Plan Referrals: Mark Coe MD [Primary Care Provider] - (PT IS GOING TO ECF NO FOLLOW UP PCP APPOINTMENT NEEDED ) Isac Zuniga CNP [Advanced Practice Nurse] - (OFFICE MAKES THERE OWN APPOINTMENTS NOW) Prescriptions: Oxycodone HCl/Acetaminophen [Percocet 10-325 mg Tablet] 1 each PO Q4HR PRN #30 tablet PRN Reason: Pain Amoxicillin/Clavulanate [Augmentin] 875 mg PO BIDWM #8 tablet
[2016-12-31] MEDS: risperiDONE 0.25 MG TABLET PO SCH (20:44)
[2016-12-31] MEDS ORDERED: *HR* OxyCODONE Immed Rel 5 MG TABLET PO ONE (23:48)
[2017-01-01 06:11] LABS: Basophils % 0.6 %; Eosinophils # 0.5 K/mcL (0.0-0.6); Eosinophils % 7.8 %; Hematocrit 27.8 % (37.5-50.1); Immature Granulocytes % 1.7 % (0-4); Lymphocytes # 2.1 K/mcL (0.6-4.6); Lymphocytes % 32.6 %; Mean Corpuscular HGB Conc 32.4 g/dL (31.6-35.5); Mean Corpuscular Volume 80.3 fL (83.0-100.0); Mean Platelet Volume 8.9 fL (9.4-12.4); Monocytes # 0.4 K/mcL (0.0-1.3); Monocytes % 6.4 %; Neutrophils # 3.3 K/mcL (1.6-8.9); Platelet Count 352 K/mcL (140-400); Red Blood Count 3.46 M/mcL (4.19-5.50); Red Cell Distribution Width 14.7 % (11.5-14.5); Segmented Neutrophils % 50.9 %
[2017-01-01] MEDS: *HR* Heparin 5,000 UNIT/ML VIAL SQ SCH ×2 (06:19→17:39)
[2017-01-01 06:33] LABS: BUN/Creatinine Ratio 22 (6-26); Blood Urea Nitrogen 27 mg/dL (8-26); Carbon Dioxide 24 mEq/L (19-29); Chloride 103 mEq/L (98-109); Glucose 305 mg/dL (70-99); Osmolality,Calculated 299 (280-300); Potassium 4.3 mEq/L (3.5-4.5); Sodium 136 mEq/L (136-145); eGFR For African Americans > 60 (> 60); eGFR For Non-African Americans 59 (> 60)
[2017-01-01] MEDS: Ipratropium/Albuterol Neb 3 ML IH SCH ×3 (07:56→21:01)
--- NOTE | 2017-01-01 08:17 | Electrocardiograph Report ---
[place] [id number] Test Date: 2016-12-30 Pat Name: Nikita Regalado Department: 110 Room: 2N05 Gender: M Brand Leader: LAVONNE : 1955 Requested By: [place] Order Number: [id number] Reading MD: Sam Bocanegra MD Measurements Intervals [place] Rate: 58 P: 37 DE: 173 QRS: 1 QRSD: 87 T: 14 QT: 430 QTc: 426 Interpretive Statements SINUS BRADYCARDIA Electronically Signed On 01-01-2017 8:16:01 EDT by Sam Bocanegra MD
[2017-01-01] MEDS: Folic Acid 1 MG TABLET PO SCH (08:59)
[2017-01-01] MEDS: Insulin DETEMIR 100 UNIT/ML X5UNITS SQ SCH ×2 (08:59→22:09)
[2017-01-01] MEDS: Magnesium Oxide 400 MG TABLET PO SCH ×2 (08:59→22:08)
[2017-01-01] MEDS: Aspirin Enteric Coated 81 MG Tablet PO SCH (08:59)
[2017-01-01] MEDS: Vitamin B Complex/Vit C/Vit E 1 EACH TABLET PO SCH (08:59)
[2017-01-01] MEDS: Thiamine (B-1) 100 MG TABLET PO SCH (08:59)
[2017-01-01] MEDS: Cholecalciferol (D-3) 1,000 UNIT TABLET PO SCH (08:59)
[2017-01-01] MEDS: Insulin LISPRO 300 UNITS/3 ML VIAL SQ SCH ×4 (09:00→22:09)
[2017-01-01] MEDS: Nicotine 14 MG PATCH.TD24 TD SCH (09:00)
[2017-01-01] MEDS: Nystatin POWDER 30 GM BOTTLE TP SCH ×4 (09:10→22:50)
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
--- NOTE | 2017-01-01 15:27 | Physician Discharge Referral ---
ExtendedCare Referral Info Transfer To: SNF Provider in Charge after Transfer: Other Institutional Level of Care: Skilled - Diagnosis (1) DVT prophylaxis Status: Acute (2) Seizure Status: Chronic (3) Cerebral hypoxia Status: Acute (4) Myoclonic jerking Status: Resolved (5) Aspiration pneumonia Status: Acute (6) Acute respiratory failure with hypoxia Status: Acute (7) Polypharmacy Status: Acute (8) Hypertension Status: Acute (9) PEA (Pulseless electrical activity) Status: Acute (10) Acute worsening of stage 3 chronic kidney disease Status: Acute (11) Acute diastolic heart failure Status: Acute (12) Decubitus ulcer of coccygeal region, stage 2 Status: Acute - Transfer Medications Prescriptions: LevETIRAcetam [Keppra] 500 mg PO Q12HR #60 tablet Carvedilol [Coreg] 25 mg PO BIDWM #30 tablet Cholecalciferol (D-3) [Vitamin D] 1,000 unit PO DAILY 30 Days RisperiDONE [RisperDAL] 0.5 mg PO HS #10 tablet Rosuvastatin [Crestor] 40 mg PO HS 30 Days Home Medications: Aspirin [Adult Low Dose Aspirin EC] 81 mg PO DAILY 12/11/15 [History] Budesonide/Formoterol 160/4.5 [Symbicort 160/4.5] 2 puff IH BIDR 12/11/15 [ History] Citalopram Hydrobromide [Celexa] 20 mg PO DAILY 12/11/15 [History] Enalapril Maleate [Vasotec] 10 mg PO QPM 12/11/15 [History] Ergocalciferol (VITAMIN D2) [Vitamin D2 (50,000 UNIT)] 50,000 unit PO MÁRQUEZ [History] Hydroxyzine HCl 50 mg PO BID 12/11/15 [History] Omeprazole [PriLOSEC] 20 mg PO BID 12/11/15 [History] Ropinirole [Requip] 1 mg PO HS 12/11/15 [History] Rosuvastatin [Crestor] 40 mg PO DAILY 12/11/15 [History] SitaGLIPtin [Januvia] 100 mg PO DAILY 12/11/15 [History] Trazodone HCl [TraZODone] 100 mg PO HS 12/11/15 [History] Amlodipine [Norvasc] 5 mg PO DAILY #30 tablet 11/02/16 [Rx] Carvedilol [Coreg] 25 mg PO BIDWM #60 tablet 11/28/16 [Rx] Cyanocobalamin (B-12) [Vitamin B12] 1,000 mcg PO DAILY #90 tablet 11/28/16 [Rx] Ferrous Sulfate 325 mg PO BIDWM #180 tablet 11/28/16 [Rx] Insulin DETEMIR [Levemir] 20 unit SQ DAILY #5 vial 11/28/16 [Rx] Lactobacillus [Culturelle] 1 each PO BID #60 cap.sprink 11/28/16 [Rx] Magnesium Oxide [Mag-Ox] 400 mg PO BID #60 tablet 11/28/16 [Rx] Nicotine Patch [Nicoderm] 21 mg TD DAILY #30 patch.td24 11/28/16 [Rx] Polyethylene Glycol 3350 [MiraLAX] 17 gm PO DAILY #30 powd.pack 11/28/16 [Rx] Sennosides [Senna] 8.6 mg PO DAILY #06 tablet 11/28/16 [Rx] Tamsulosin [Flomax] 0.4 mg PO DAILY #30 capsule 11/28/16 [Rx] Thiamine HCl 250 mg PO DAILY #90 tablet 11/28/16 [Rx] Albuterol Neb [Proventil Neb] 2.5 mg IH Q4HR 12/02/16 [History] Furosemide [Lasix] 40 mg PO DAILY 12/02/16 [History] Insulin LISPRO [Humalog] 2 - 12 unit SQ TIDWM 12/02/16 [History] Carvedilol [Coreg] 25 mg PO BIDWM #30 tablet 01/01/17 [Rx] Cholecalciferol (D-3) [Vitamin D] 1,000 unit PO DAILY 30 Days 01/01/17 [Rx] Ipratropium/Albuterol Neb [Duoneb] 3 ml IH TID inhsol 01/01/17 [Rx] LevETIRAcetam [Keppra] 500 mg PO Q12HR #60 tablet 01/01/17 [Rx] RisperiDONE [RisperDAL] 0.5 mg PO HS #10 tablet 01/01/17 [Rx] Rosuvastatin [Crestor] 40 mg PO HS 30 Days 01/01/17 [Rx] Allergies/Adverse Reactions: Allergies acetaminophen [From Darvocet-N] Allergy (Verified 12/11/15 11:46) Hives ibuprofen Allergy (Verified 12/11/15 11:46) Hives propoxyphene [From Darvocet-N] Allergy (Verified 12/11/15 11:46) Hives tramadol [From Ultram] Allergy (Verified 12/11/15 11:46) Hives - Respiratory Orders Smoking Cessation: Smoking cessation has been advised. For more information, call the [place] Tobacco Quit Line at 9-566-DXHF-NOW. - Lab Orders Lab Orders: CBC - Ancillary Orders May use pressure relief devices daily prn - Advance Directives Code Status: Full Code - History and Physical History/Physical reviewed & approved w/add comments: follow up with cardiology on dsicharged from MD - Mobility Orders Ambulate - Rehabiliation Orders Rehab Potential: Good Rehab Orders: Evaluation for Physical Therapy, Evaluation for Occupational Therapy - Treatments Skin tear care topically daily PRN per policy, May check for fecal impaction rectally daily PRN - Diet Orders Regular, No Concentrated Sweets, Cardiac CERTIFICATION: I certify that the transfer of the above named patient to an Extended Care Facility is necessary for the continuing treatment of the diagnosis listed. The above information is true and accurate reflection of patient's current condition. Confidential - Redisclosure prohibited without a patient's written consent.
[2017-01-01] MEDS: risperiDONE 0.25 MG TABLET PO SCH (22:09)
[2017-01-01] MEDS ORDERED: *HR* OxyCODONE Immed Rel 5 MG TABLET PO PRN (22:13)
[2017-01-02] MEDS: *HR* Heparin 5,000 UNIT/ML VIAL SQ SCH ×2 (05:21→17:01)
[2017-01-02 05:44] LABS: Basophils % 0.3 %; Eosinophils # 0.5 K/mcL (0.0-0.6); Eosinophils % 5.4 %; Hematocrit 27.2 % (37.5-50.1); Immature Granulocytes % 1.3 % (0-4); Lymphocytes # 2.4 K/mcL (0.6-4.6); Lymphocytes % 27.5 %; Mean Corpuscular HGB Conc 33.1 g/dL (31.6-35.5); Mean Corpuscular Hemoglobin 26.8 pg (28.0-33.3); Monocytes # 0.5 K/mcL (0.0-1.3); Monocytes % 5.8 %; Neutrophils # 5.2 K/mcL (1.6-8.9); Platelet Count 395 K/mcL (140-400); Red Blood Count 3.36 M/mcL (4.19-5.50); Red Cell Distribution Width 15.1 % (11.5-14.5); Segmented Neutrophils % 59.7 %
[2017-01-02 06:04] LABS: BUN/Creatinine Ratio 24 (6-26); Blood Urea Nitrogen 28 mg/dL (8-26); Calcium 8.9 mg/dL (8.6-10.8); Carbon Dioxide 25 mEq/L (19-29); Chloride 104 mEq/L (98-109); Glucose 286 mg/dL (70-99); Magnesium 1.7 mg/dL (1.6-2.6); Osmolality,Calculated 298 (280-300); Potassium 4.2 mEq/L (3.5-4.5); Sodium 136 mEq/L (136-145); eGFR For African Americans > 60 (> 60); eGFR For Non-African Americans > 60 (> 60)
[2017-01-02] MEDS: Ipratropium/Albuterol Neb 3 ML IH SCH ×2 (07:59→16:11)
[2017-01-02] MEDS: Thiamine (B-1) 100 MG TABLET PO SCH (08:11)
[2017-01-02] MEDS: Aspirin Enteric Coated 81 MG Tablet PO SCH (08:12)
[2017-01-02] MEDS: Nicotine 14 MG PATCH.TD24 TD SCH (08:12)
[2017-01-02] MEDS: Insulin LISPRO 300 UNITS/3 ML VIAL SQ SCH ×3 (08:12→17:02)
[2017-01-02] MEDS: Folic Acid 1 MG TABLET PO SCH (08:12)
[2017-01-02] MEDS: Cholecalciferol (D-3) 1,000 UNIT TABLET PO SCH (08:12)
[2017-01-02] MEDS: Magnesium Oxide 400 MG TABLET PO SCH (08:12)
[2017-01-02] MEDS: Vitamin B Complex/Vit C/Vit E 1 EACH TABLET PO SCH (08:12)
[2017-01-02] MEDS: Nystatin POWDER 30 GM BOTTLE TP SCH ×2 (08:13→15:18)
[2017-01-02] MEDS: Insulin DETEMIR 100 UNIT/ML X5UNITS SQ SCH (08:18)
--- NOTE | 2017-01-02 09:23 | Internal Med Progress Note ---
Date of Encounter: 01/02/17 Time of Encounter: 09:21 - Assessment and plan (1) DVT prophylaxis Current Visit: No Status: Acute Assessment and plan: Heparin SQ (2) Seizure Current Visit: No Status: Suspected (3) Diabetes mellitus Current Visit: No Status: Chronic Qualifiers: Diabetes mellitus type: type 2 Diabetes mellitus complication status: with kidney complications Diabetes mellitus complication detail: with chronic kidney disease Diabetes mellitus termite helper insulin use: with fdc use Chronic kidney disease stage: stage 3 (moderate) Qualified Code(s): E11.22 - Type 2 diabetes mellitus with diabetic chronic kidney disease; N18.3 - Chronic kidney disease, stage 3 (moderate); Z79.4 - skilled nursing (current) use of insulin (4) Cerebral hypoxia Current Visit: No Status: Acute (5) Myoclonic jerking Current Visit: Yes Status: Resolved (6) Acute respiratory failure with hypoxia Current Visit: Yes Status: Acute (7) Hypertension Current Visit: Yes Status: Acute Qualifiers: Hypertension type: essential hypertension Qualified Code(s): I10 - Essential (primary) hypertension (8) Acute worsening of stage 3 chronic kidney disease Current Visit: Yes Status: Acute (9) Acute diastolic heart failure Current Visit: Yes Status: Acute (10) Decubitus ulcer of coccygeal region, stage 2 Current Visit: Yes Status: Acute Assessment and plan: Mr. Regalado is a 61 year old male with multiple co-morbidities including CKD, COPD, diastolic heart failure, and chronic anemia, hypertension, HLD, DM type II who presented with respiratory distress from an ECF. He required intubation and ventilator support after arrival to ED. During intubation he developed PEA and received 2-3 min of CPR. This is the second time he had cardiac arrest with PEA requiring ACLS in the last month. Both occurrences occurred during DANY and hypoxia d/t diastolic heart failure with pulmonary edema. Patient also has encephalopathy related to anoxic brain injury and myoclonic activity noticed during hospital stay. Review of records show that he has been having myoclonic jerks in past which has been attributed to renal dysfunction. He had a questionable seizure episode on 11/28 night and was transferred to step down for closer monitoring. # Metabolic encephalopathy: In setting of anoxic brain injury due to PEA, worsened by baseline dementia. CT head negative for acute process. Events from 11/28 night concerning for seizures. Unable to complete EEG brain as he has been constantly moving during the procedure. Neuro has evaluated pt and recommends restarting keppra BID. No further episodes after starting keppra. He is alert , oriented and appropriately responding to all questions for last 6 days. Discharge pending Rehab Placement # Myoclonic jerks: Could be related to the hypoxic brain damage. Restarted Keppra given concern for seizures. On Gabapentin which is currently tapered off. No further episodes noticed since starting on keppra # CKD Stage 3 with DANY: Prerenal and component of ATN in setting of cardiac arrest. Improved. Renal function at baseline. # Stage 2 Decubitus ulcer: Wound care. Completed course of doxycyline. # Acute resp failure with hypoxia: On admission requiring intubation and mech ventillation, resolved. Was on diuresis which is currently d/c as pt euvolemic. # PEA arrest: related to hypoxia on admission # COPD: stable # Osteomyelitis of foot, right: completed treatment per records. Wound care, needs f/u with podiatry following d/c # DVT prophylaxis: Sub Q heparin # Dispo: Medically stable to discharged to [facility]. Awaiting bed. CM and SW following. # Hypertension: Restarted home medications. # Diabetes Mellitus: Pt required 42 units of additional insulin coverage on top of the Levemir. Levemir dosing adjusted as per required insulin coverage. continue to monitor fingerstick and blood glucose. Sliding scale insulin algorithm as needed. - Subjective Interval history: Patient seen and examined at bedside. Resting comfortably in bed. Alert and oriented. Reports of feeling better and in no distress at this time. No further seizure like activity reported. No overnight events reported. Discharge pending placement - Constitutional Vitals: Temp Pulse Resp BP Pulse Ox 98.3 F 74 16 171/68 97 01/02/17 06:35 01/02/17 06:35 01/02/17 06:35 01/02/17 06:35 01/02/17 06:35 General appearance: Present: cooperative, A&O X 3, pleasant, no acute distress, obese, answers questions appropriately - Head Head exam: Present: atraumatic, normocephalic - Eye Eye exam: Present: conjuntiva pink, sclera anicteric - Respiratory Respiratory exam: Present: CTAB. Absent: accessory muscle use, rales, rhonchi, wheezes - Cardiovascular Cardiovascular exam: Present: RRR, +S1, +S2. Absent: diastolic murmur, gallop, rubs, systolic murmur - GI/Abdominal GI/Abdominal exam: Present: normal bowel sounds, soft, no peritoneal signs. Absent: distended, tenderness - Extremities Exam Extremities exam: Present: warm, radial pulses palpable and symetrical. Absent : pedal edema, tenderness - Neurological Exam Neurological exam: Present: alert, oriented X3 Internal Medicine: Result - Labs CBC & Chem 7: 01/02/17 05:00 01/02/17 05:00 Labs: Short CBC 01/02/17 Range/Units 05:00 WBC 8.7 (4.3-11.1) K/mcL Hgb 9.0 L (12.9-16.9) g/dL Hct 27.2 L (37.5-50.1) % Plt Count 395 (140-400) K/mcL Neutrophils # 5.2 (1.6-8.9) K/mcL BMP 01/02/17 05:00 Sodium 136 Potassium 4.2 Chloride 104 Carbon Dioxide 25 BUN 28 H Creatinine 1.18 Glucose 286 H Calcium 8.9 - ABG Interpretation ABG results: ABG ABG pH 7.35 pH Units (7.32-7.45) 12/26/16 20:25 ABG pCO2 36 mmHg (35-45) 12/26/16 20:25 ABG pO2 236 mmHg (85-104) H 12/26/16 20:25 ABG O2 Saturation 100 % (95-98) H 12/26/16 20:25 PT/INR, D-dimer PT 12.8 Seconds (9.4-12.1) H 12/26/16 20:25 - VTE Documentation of Mechanical Device: Intermittent pneumatic compression device Consult Discharge Plan - Plan Referrals: Mark Coe MD [Primary Care Provider] - (PT IS GOING TO ECF NO FOLLOW UP PCP APPOINTMENT NEEDED ) Isac Zuniga CNP [Advanced Practice Nurse] - (OFFICE MAKES THEIR OWN APPOINTMENTS NOW. f/u in one to two week) Prescriptions: LevETIRAcetam [Keppra] 500 mg PO Q12HR #60 tablet Carvedilol [Coreg] 25 mg PO BIDWM #30 tablet Cholecalciferol (D-3) [Vitamin D] 1,000 unit PO DAILY 30 Days RisperiDONE [RisperDAL] 0.5 mg PO HS #10 tablet Rosuvastatin [Crestor] 40 mg PO HS 30 Days
[2017-01-02] MEDS ORDERED: amLODIPine 5 MG TABLET PO SCH (09:30)
[2017-01-02] MEDS ORDERED: Insulin DETEMIR 100 UNIT/ML X5UNITS SQ ONE (09:36)
[2017-01-02 16:11] VITALS: BP 149/58
--- NOTE | 2017-01-02 16:49 | Podiatry Progress Note ---
Date of Encounter: 01/02/17 Time of Encounter: 11:30 - Assessment and Plan (1) Diabetic ulcer of both feet associated with type 2 diabetes mellitus Current Visit: No Status: Acute Examined at bedside Wound vac removed Skin prep and betadine applied to skin Black granufoam replaced and VAC sealed without leak Wrapped in kerlex for protection, patient tolerated wel Ulcer to left foot unchanged since last visit. Dry dressing to remain in place Patient will return to [facility] care facility with wound vac No clinical signs of infection to wound Patient may be discharged when medically cleared Please consult SW for follow with VAC non weight bearing to right foot please call with any clinical signs of infection or worsening of wounds Once discharged, please make appointment for follow up in wound care clinic with in 2 weeks. Will need MWF changes to wound vac (2) Foot ulcer with fat layer exposed Current Visit: No Status: Acute (3) Peripheral vascular disease due to secondary diabetes Current Visit: No Status: Acute Subjective Principal diagnosis: unresponsiveness Interval history: Mr. Regalado is a 61 year old male who we have been following w is s/p incision and drainage to bone cortex for osteomyelitis #5 metatarsal right, open amputation of toe #5 with metatarsal #5 right foot, application wound VAC by Dr. Pace on 11/06/16. Wound vac was removed on readmission. Wound vac was replaced on 12/09/16. On arrival today patient is awake alert and oriented and awaiting placement to ECF. Patient states he is doing well. Wound vac clean dry and intact. No issues at this time Objective - Vital Signs Vital Signs: Vital Signs Temp Pulse Resp BP Pulse Ox 01/02/17 14:39 98.1 F 68 16 149/58 98 01/02/17 11:36 97.9 F 65 18 145/52 96 01/02/17 06:35 98.3 F 74 16 171/68 97 01/02/17 05:33 98.5 F 67 17 183/75 98 01/01/17 21:02 18 100 01/01/17 20:22 69 18 177/70 99 Intake and Output 01/02/17 01/02/17 01/02/17 07:59 15:59 23:59 Intake Total 360 / 360 550 / 550 480 / 480 Output Total 550 / 550 625 / 625 550 / 550 Balance -190 / -190 -75 / -75 -70 / -70 Intake: Oral 360 / 360 550 / 550 480 / 480 Output: Urine 550 / 550 625 / 625 550 / 550 Wound Drainage 0 / 0 right fifth toe 0 / 0 Other: Blood Glucose* 317 385 300 - Exam Exam: General Examination: CONSTITUTIONAL: Alert, oriented, in no acute distress, non-toxic. EXTREMITIES: CFT 3 seconds all toes. Edema +1 and pedal pulses faintly palpable SKIN: Skin with decreased turgor, decreased subcutaneous tissue, skin thin and shiny with trophic changes associated with comorbidities as described in history.. NEUROLOGIC:Intact sensation to moderate touch Dry diabetic ulcer to left foot sub MT head #5. No concern for infection appears to be healing Dry dressing in place Wound vac removed- Appears to be healing well Continued decrease in size 4.2xmx1.4cmx0.3cm No areas of tunneling or sinus tracts No appearance of infection No drainage Mild periwound maceration - Lab Result Diagrams: 01/02/17 05:00 01/02/17 05:00 Labs: Abnormal lab results RBC 3.36 M/mcL (4.19-5.50) L 01/02/17 05:00 Hgb 9.0 g/dL (12.9-16.9) L 01/02/17 05:00 Hct 27.2 % (37.5-50.1) L 01/02/17 05:00 MCV 81.0 fL (83.0-100.0) L 01/02/17 05:00 MCH 26.8 pg (28.0-33.3) L 01/02/17 05:00 RDW 15.1 % (11.5-14.5) H 01/02/17 05:00 MPV 9.0 fL (9.4-12.4) L 01/02/17 05:00 PT 12.8 Seconds (9.4-12.1) H 12/26/16 20:25 ABG pO2 236 mmHg (85-104) H 12/26/16 20:25 ABG HCO3 19.9 mEQ/L (21-27) L 12/26/16 20:25 ABG O2 Saturation 100 % (95-98) H 12/26/16 20:25 ABG Base Excess -5.2 mEq/L (-2.0 to 3.0) L 12/26/16 20:25 BUN 28 mg/dL (8-26) H 01/02/17 05:00 Glucose 286 mg/dL (70-99) H 01/02/17 05:00 POC Glucose 385 (58-89) H 01/02/17 11:44 Phosphorus 5.3 mg/dL (2.3-4.7) H 12/27/16 05:46 Ferritin 422 ng/ml (22-275) H 12/27/16 05:46 B-Natriuretic Peptide 365 pg/mL (0-100) H 12/02/16 12:23 Albumin 2.8 g/dL (3.5-5.0) L 12/26/16 20:25 Globulin 4.0 g/dL (2.4-3.5) H 12/26/16 20:25 Albumin/Globulin Ratio 0.7 (1.1-2.2) L 12/26/16 20:25 25-OH Vitamin D Total 17 ng/mL (30-80) L 12/26/16 06:33 Urine Clarity Cloudy (Clear) A 12/02/16 12:27 Urine Protein >=300 mg/dL (Neg-Trace) H 12/02/16 12:27 Urine Glucose (UA) 250 mg/dL (Normal) H 12/02/16 12:27 Urine Ketones Trace mg/dL (Negative) H 12/02/16 12:27 Urine Blood Large (Negative) H 12/02/16 12:27 Urine Microscopic RBC 15-30 per hpf (0-3) H 12/02/16 12:27 Urine Microscopic WBC 5-15 per hpf (0-3) H 12/02/16 12:27 Ur Squamous Epith Cells Many per lpf (None-Few) H 12/02/16 12:27 Ur Culture Indicated? YES (NO) A 12/02/16 12:27 Stool Occult Blood Positive (Negative) A 12/03/16 14:06 Gabapentin <0.5 ug/mL (2.0-20.0) L 12/02/16 Unknown - VTE Documentation of Mechanical Device: Intermittent pneumatic compression device Consult Discharge Plan - Plan Referrals: Mark Coe MD [Primary Care Provider] - (PT IS GOING TO ECF NO FOLLOW UP PCP APPOINTMENT NEEDED ) Isac Zuniga, SURVEY RESEARCH ASSOCIATE [Advanced Practice Nurse] - (OFFICE MAKES THEIR OWN APPOINTMENTS NOW. f/u in one to two week) Prescriptions: Carvedilol [Coreg] 25 mg PO BIDWM #30 tablet Cholecalciferol (D-3) [Vitamin D] 1,000 unit PO DAILY 30 Days LevETIRAcetam [Keppra] 500 mg PO Q12HR #60 tablet RisperiDONE [RisperDAL] 0.5 mg PO HS #10 tablet Rosuvastatin [Crestor] 40 mg PO HS 30 Days
--- NOTE | 2017-01-02 20:57 | Electrocardiograph Report ---
[place] [id number] Test Date: 2017-01-01 Pat Name: ARTEMIO MESA Department: 110 Room: [facility] Gender: Male [place] Alarm Operator: JEREL : 1955 Requested By: [place] Order Number: [id number] Reading MD: Romeo Saleem MD Measurements Intervals [place] Rate: 63 P: 39 TX: 179 QRS: 7 QRSD: 90 T: 26 QT: 421 QTc: 428 Interpretive Statements SINUS RHYTHM POOR R-WAVE PROGRESSION Electronically Signed On 01-02-2017 20:55:56 EDT by Romeo Saleem MD
[2017-01-02] MEDS ORDERED: Insulin DETEMIR 100 UNIT/ML X5UNITS SQ SCH (21:00)
== END 2017-01-02 18:50 | DRG 133 ==
LOC: EMEROO 12:14 → 2NENU 12:14 → ICNU 16:48 → SUATTDRO 16:50 → 2ANU 12-07 14:29 → 2NNU 12-16 17:02 → 3ANU 12-17 14:00 → 2NNU 12-26 22:56 → 3NENU 01-01 23:33
PROVIDERS: ADMIT Internal Medicine; ATTEND Internal Medicine
PROC: ENDOCBX (2016-12-11 14:00)
PROC: ENDOEBX (2016-12-11 14:00)

== ENCOUNTER 2017-09-03 11:33 | Inpatient (IN) ==
--- NOTE | 2017-09-03 12:14 | Emergency Department Note ---
Disposition Clinical Impression: Cellulitis of left foot, Gangrene of left foot, Tobacco abuse, Osteomyelitis of ankle or foot Disposition: Admitted As Inpatient Condition: Fair Time of Disposition: 12:21 Extremity Problem HPI - General Chief complaint: ED Extremity Problem,Nontraumatic Stated complaint: left foot wound Time Seen by Provider: 09/03/17 11:38 Source: patient Limitations: no limitations Nursing Notes Reviewed: Yes Vital Signs Reviewed: Yes - History of Present Illness HPI Narrative: 62-year-old male presents ED because of the lesion on his left foot. He is diabetic and poor controlled. He is currently homeless and resides at a local care home. They undresses his foot and found that he had infectious lesions on the lateral aspect of the left foot. He denies any pain. No fevers. He has had similar issue on the right foot requiring amputation of his toes within the last year. Glucose has been poorly controlled. Denies fevers or chills. No weakness. No abdominal pain. No chest pain or dyspnea. No known recent trauma Pt Subjective Complaint: extremity swelling Onset (ago): unknown Injury Location: left Pain Scale: 0 Quality: other Radiation: none Improves with: nothing Worsens with: nothing Associated symptoms: Reports: denies other symptoms - Related Data Home Medications Medication Instructions Recorded Confirmed Aspirin [Adult Low Dose Aspirin EC] 81 mg PO DAILY 12/11/15 09/03/17 Budesonide/Formoterol 160/4.5 2 puff IH BIDR 12/11/15 09/03/17 [Symbicort 160/4.5] Citalopram Hydrobromide [Celexa] 20 mg PO DAILY 12/11/15 09/03/17 Enalapril Maleate [Vasotec] 10 mg PO QPM 12/11/15 09/03/17 Ergocalciferol (VITAMIN D2) 50,000 unit PO MÁRQUEZ 12/11/15 09/03/17 [Vitamin D2 (50,000 UNIT)] Omeprazole [PriLOSEC] 20 mg PO BID 12/11/15 09/03/17 SitaGLIPtin [Januvia] 100 mg PO DAILY 12/11/15 09/03/17 Trazodone HCl [TraZODone] 100 mg PO HS 12/11/15 09/03/17 hydrOXYzine HCl [Hydroxyzine HCl] 50 mg PO BID 12/11/15 09/03/17 Albuterol Neb [Proventil Neb] 2.5 mg IH Q4HR 12/02/16 09/03/17 Furosemide [Lasix] 40 mg PO DAILY 12/02/16 09/03/17 Cyclobenzaprine [Flexeril] 10 mg PO BID PRN 09/03/17 09/03/17 Insulin ASPART [Novolog Flexpen] 0 unit SQ TID 09/03/17 09/03/17 Insulin Glargine,Hum.rec.anlog 0 unit SQ BID 09/03/17 [Basaglar Kwikpen U-100] LevETIRAcetam [Keppra] 1,000 mg PO BID 09/03/17 09/03/17 Ropinirole HCl [Requip] 2 mg PO HS 09/03/17 09/03/17 Rosuvastatin [Crestor] 20 mg PO DAILY 09/03/17 09/03/17 risperiDONE [RisperDAL] 0.25 mg PO HS 09/03/17 09/03/17 Previous Rx's Medication Instructions Recorded amLODIPine [Norvasc] 5 mg PO DAILY #30 tablet 08/08/16 Cyanocobalamin (B-12) [Vitamin B12] 1,000 mcg PO DAILY #90 tablet 11/28/16 Ferrous Sulfate 325 mg PO BIDWM #180 tablet 11/28/16 Insulin DETEMIR [Levemir] 20 unit SQ DAILY #5 vial 11/28/16 Lactobacillus [Culturelle] 1 each PO BID #60 cap.sprink 11/28/16 Magnesium Oxide [Mag-Ox] 400 mg PO BID #60 tablet 11/28/16 Nicotine Patch [Nicoderm] 21 mg TD DAILY #30 patch.td24 11/28/16 Polyethylene Glycol 3350 [MiraLAX] 17 gm PO DAILY #30 powd.pack 11/28/16 Sennosides [Senna] 8.6 mg PO DAILY #06 tablet 11/28/16 Tamsulosin [Flomax] 0.4 mg PO DAILY #30 capsule 11/28/16 Thiamine HCl 250 mg PO DAILY #90 tablet 11/28/16 Carvedilol [Coreg] 25 mg PO BIDWM #30 tablet 01/01/17 Allergies Allergy/AdvReac Type Severity Reaction Status Date / Time acetaminophen Allergy Hives Verified 03/06/16 11:46 [From Darvocet-N] ibuprofen Allergy Hives Verified 12/11/15 11:46 propoxyphene Allergy Hives Verified 12/11/15 11:46 [From Darvocet-N] tramadol [From Ultram] Allergy Hives Verified 12/11/15 11:46 All systems ED: reviewed and negative except as stated. Constitutional: Denies: fever, chills ENT ED: Denies: ear pain, throat pain Cardiovascular: Denies: chest pain Respiratory: Denies: cough, dyspnea Gastrointestinal: Denies: abdominal pain, nausea Genitourinary: Denies: dysuria Musculoskeletal: Denies: neck pain Past Medical History - Past Medical History Attestation: Yes The following information was validated with the patient. Source: patient Medical history: Reports: arthritis, COPD, diabetes, GERD, hepatitis, hyperlipidemia, hypertension, osteoporosis, renal disease, syncope Surgical history: Reports: cataract, LE stent(s), orthopedic, other Psychiatric history: Reports: anxiety, depression - Social History Smoking Status: Current every day smoker Smokeless Tobacco Status: No Alcohol use: Reports: none Drug use: Reports: none Physical Exam - General Limitations: no limitations General appearance: alert, in no apparent distress - Head Head exam: atraumatic, normocephalic - Eye Eye exam: Present: normal appearance - ENT ENT exam: normal exam, normal oropharynx - Neck Neck exam: Present: normal inspection - Chest Chest inspection: Absent: tenderness - Respiratory Respiratory exam: Present: other (Symmetrically diminished breath sounds bilaterally.). Absent: respiratory distress - Cardiovascular Cardiovascular exam: Present: regular rate, normal rhythm - Abdominal Exam Abdominal exam: Present: soft, Non-Tender - Extremities Exam Extremities exam: Present: other (Swastika tattoo on the dorsum of his left hand ) - Expanded Lower Extremity Exam Foot/toe exam: Present: swelling, other (Dense erythema on the dorsum and plantar surfaces of the left foot extending to the ankle. Fluctuant areas over the plantar surface and dorsum of the lateral forefoot. Purple discoloration of the fifth toe. Very faint dorsal pedal pulse. No focal tenderness.) Neurovascular/Tendon exam: Present: sensory deficit. Absent: motor deficit - Neurological Exam Neurological exam: Present: alert, oriented X3 - Psychiatric Psychiatric exam: Present: normal affect - Skin Skin exam: Present: warm, dry Course Course Narrative: Labs, x-rays to rule out subcutaneous gas and start broad-spectrum eyes. He will require admission and probable amputation of his lateral forefoot. - Reevaluation(s) Reevaluation #1: D/W Dr. Arango to admit D/W Dr. Pace for podiatry consultation. He requested blood cultures and pt be kept NPO Time: 13:48 Vital Signs Temperature 98.5 F 09/03/17 11:35 Pulse Rate 72 09/03/17 11:35 Respiratory Rate 20 09/03/17 11:35 Blood Pressure 128/64 09/03/17 11:35 O2 Sat by Pulse Oximetry 98 09/03/17 11:35 Temperature 99.3 F 09/03/17 16:11 Pulse Rate 67 09/03/17 16:11 Respiratory Rate 16 09/03/17 16:11 Blood Pressure 107/51 09/03/17 16:11 O2 Sat by Pulse Oximetry 95 09/03/17 16:11 Oxygen Delivery Oxygen Delivery Room Air Extremity Problem, Nontraumati - Lab Data Result diagrams: 09/03/17 12:49 09/03/17 12:49 Lab Results 09/03/17 09/03/17 Range/Units 12:49 12:49 WBC 13.4 H (4.3-11.1) K/mcL RBC 3.71 L (4.19-5.50) M/mcL Hgb 10.4 L (12.9-16.9) g/dL Hct 30.2 L (37.5-50.1) % MCV 81.4 L (83.0-100.0) fL MCH 28.0 (28.0-33.3) pg MCHC 34.4 (31.6-35.5) g/dL RDW 12.7 (11.5-14.5) % Plt Count 283 (140-400) K/mcL MPV 9.3 L (9.4-12.4) fL Immature Gran % 1.3 (0-4) % Seg Neutrophils % 72.0 % Lymphocytes % 13.1 % Monocytes % 10.4 % Eosinophils % 2.7 % Basophils % 0.5 % Neutrophils # 9.6 H (1.6-8.9) K/mcL Lymphocytes # 1.8 (0.6-4.6) K/mcL Monocytes # 1.4 H (0.0-1.3) K/mcL Eosinophils # 0.4 (0.0-0.6) K/mcL Basophils # 0.1 (0.0-0.2) K/mcL Sodium 131 L (136-145) mEq/L Potassium 3.9 (3.5-4.5) mEq/L Chloride 99 (98-109) mEq/L Carbon Dioxide 24 (19-29) mEq/L BUN 28 H (8-26) mg/dL Creatinine 1.84 H (0.72-1.25) mg/dL Est GFR ( Amer) 45 L (> 60) Est GFR (Non-Af Amer) 37 L (> 60) BUN/Creatinine Ratio 15 (6-26) Glucose 249 H (70-99) mg/dL Calculated Osmolality 286 (280-300) Calcium 9.6 (8.6-10.8) mg/dL
[2017-09-03] MEDS ORDERED: Clindamycin 600 MG/50 ML 600 MG/50 ML IV.SOLN IVPB STA (12:17)
[2017-09-03] MEDS ORDERED: Vancomycin 1,000 MG in D5% in Water 250 ML IVPB ONE (12:17)
[2017-09-03] MEDS ORDERED: 0.9 % Sodium Chloride 1,000 ML IVC SCH (12:30)
[2017-09-03 12:59] LABS: Basophils # 0.1 K/mcL (0.0-0.2); Basophils % 0.5 %; Eosinophils # 0.4 K/mcL (0.0-0.6); Eosinophils % 2.7 %; Hematocrit 30.2 % (37.5-50.1); Hemoglobin 10.4 g/dL (12.9-16.9); Immature Granulocytes % 1.3 % (0-4); Lymphocytes # 1.8 K/mcL (0.6-4.6); Lymphocytes % 13.1 %; Mean Corpuscular HGB Conc 34.4 g/dL (31.6-35.5); Mean Corpuscular Volume 81.4 fL (83.0-100.0); Mean Platelet Volume 9.3 fL (9.4-12.4); Monocytes # 1.4 K/mcL (0.0-1.3); Monocytes % 10.4 %; Neutrophils # 9.6 K/mcL (1.6-8.9); Platelet Count 283 K/mcL (140-400); Red Blood Count 3.71 M/mcL (4.19-5.50); Red Cell Distribution Width 12.7 % (11.5-14.5)
[2017-09-03 13:12] LABS: Calcium 9.6 mg/dL (8.6-10.8); Potassium 3.9 mEq/L (3.5-4.5)
--- NOTE | 2017-09-03 13:55 | Internal Med History&Physical ---
Date of Encounter: 09/04/17 Time of Encounter: 13:51 Assessment and Plan (1) Gangrene of left foot Current visit: Yes Status: Acute Patient is likely gangrene of the left foot secondary to the underlying severe infection. Staffing Branch Manager has been contacted. We will follow the recommendations from podiatry Plan: Admit as inpatient. Blood culture 2. IV antibiotics: Vancomycin/Zosyn. Wound care consult. We will follow the recommendations from the podiatry. (2) Cellulitis of left foot Current visit: Yes Status: Acute Patient is a cellulitis of the foot. There is also possibility of osteomyelitis. We might get infectious diseases on the board if the blood culture is positive. (3) DANY (acute kidney injury) Current visit: No Status: Acute Elevated creatinine likely secondary to the dehydration. We will give IV fluids to patient. (4) Poorly controlled diabetes mellitus Current visit: No Status: Chronic Patient's last hemoglobin A1c from this chart is dated 08/2016 and that is 9.8. Concern from pharmacy regarding short-acting insulin. Plan: Stop short-acting insulin. Patient is getting correction schedule of insulin before meals at bedtime. We can have ongoing total number of units requirement in 24 hours and the only adjustment can be done accordingly. Patient's short-acting insulin stopped completely (5) COPD (chronic obstructive pulmonary disease) Current visit: No Status: Chronic Stable COPD Qualifiers: COPD type: unspecified COPD Qualified Code(s): J44.9 - Chronic obstructive pulmonary disease, unspecified (6) Nicotine dependence with nicotine-induced disorder Current visit: No Status: Chronic active smoker Qualifiers: Nicotine product type: cigarettes Qualified Code(s): F17.219 - Nicotine dependence, cigarettes, with unspecified nicotine-induced disorders (7) DVT prophylaxis Current visit: No Status: Acute SCD Internal Medicine - H&P: HPI Chief complaint: Left leg pain Admitted From: Emergency Dept Plans for Post Hospital Care: Home History of present illness: PCP: Dr. Coe Staffing Branch Manager : Dr Katelynn Vance PMH: COPD, diabetes, GERD, hepatitis, hyperlipidemia, hypertension, osteoporosis, renal disease, History of present medical illness: Patient has a worsening left lower extremity pain for the past 1 week. His pain was getting worse in last 3 days and he noted that there is a blister formation along with the bluish black discoloration of his little toe and the surrounding skin. Patient was concerned regarding this finding and that is the reason he decided to come to the emergency room for further evaluation. Patient patient has previous history of amputation of couple of fingers on the right side by Dr. Pace. Patient denies chest pain, nausea, vomiting, abdominal pain, dizziness and diarrhea. Workup in the emergency room: Patient was evaluated in the emergency room. Basic labs were drawn. Noted that patient has elevated white blood cell count. Radiology examination of the foot was suggestive of a possibility of osteomyelitis/cellulitis. Reason for hospitalization: Left lower limb cellulitis/osteomyelitis in a diabetic patient who has poorly controlled diabetes. Family history: Noncontributory Past Med Surg Social Fam HX - Past Medical History Medical history: arthritis, COPD, diabetes, GERD, hepatitis, hyperlipidemia, hypertension, osteoporosis, renal disease, syncope Psychiatric history: anxiety, depression - Past Surgical History Surgical History: cataract, LE stent(s), orthopedic, other - Social History Smoking Status: Current every day smoker Smokeless Tobacco Status: No Alcohol use: none Drug use: none - Family History Mother Living Status: Hx Family Cardiac Disorders: Yes (htn) Hx Family Respiratory Disorders: No Hx Family Cancer: Yes Hx Family Endocrine Disorder: Yes (dm) Father Living Status: Internal Medicine - H&P: Meds Aspirin [Adult Low Dose Aspirin EC] 81 mg PO DAILY 12/11/15 [History] Budesonide/Formoterol 160/4.5 [Symbicort 160/4.5] 2 puff IH BIDR 12/11/15 [ History] Citalopram Hydrobromide [Celexa] 20 mg PO DAILY 12/11/15 [History] Enalapril Maleate [Vasotec] 10 mg PO QPM 12/11/15 [History] Ergocalciferol (VITAMIN D2) [Vitamin D2 (50,000 UNIT)] 50,000 unit PO MÁRQUEZ [History] Omeprazole [PriLOSEC] 20 mg PO BID 12/11/15 [History] SitaGLIPtin [Januvia] 100 mg PO DAILY 12/11/15 [History] Trazodone HCl [TraZODone] 100 mg PO HS 12/11/15 [History] hydrOXYzine HCl [Hydroxyzine HCl] 50 mg PO BID 03/06/16 [History] amLODIPine [Norvasc] 5 mg PO DAILY #30 tablet 08/08/16 [Rx] Cyanocobalamin (B-12) [Vitamin B12] 1,000 mcg PO DAILY #90 tablet 11/28/16 [Rx] Ferrous Sulfate 325 mg PO BIDWM #180 tablet 11/28/16 [Rx] Insulin DETEMIR [Levemir] 20 unit SQ DAILY #5 vial 11/28/16 [Rx] Lactobacillus [Culturelle] 1 each PO BID #60 cap.sprink 11/28/16 [Rx] Magnesium Oxide [Mag-Ox] 400 mg PO BID #60 tablet 11/28/16 [Rx] Nicotine Patch [Nicoderm] 21 mg TD DAILY #30 patch.td24 11/28/16 [Rx] Polyethylene Glycol 3350 [MiraLAX] 17 gm PO DAILY #30 powd.pack 11/28/16 [Rx] Sennosides [Senna] 8.6 mg PO DAILY #06 tablet 11/28/16 [Rx] Tamsulosin [Flomax] 0.4 mg PO DAILY #30 capsule 11/28/16 [Rx] Thiamine HCl 250 mg PO DAILY #90 tablet 11/28/16 [Rx] Albuterol Neb [Proventil Neb] 2.5 mg IH Q4HR 12/02/16 [History] Furosemide [Lasix] 40 mg PO DAILY 12/02/16 [History] Carvedilol [Coreg] 25 mg PO BIDWM #30 tablet 01/01/17 [Rx] Cyclobenzaprine [Flexeril] 10 mg PO BID PRN 09/03/17 [History] Insulin ASPART [Novolog Flexpen] 0 unit SQ TID 09/03/17 [History] Insulin Glargine,Hum.rec.anlog [Basaglar Kwikpen U-100] 0 unit SQ BID 09/03/17 [ History] LevETIRAcetam [Keppra] 1,000 mg PO BID 09/03/17 [History] Ropinirole HCl [Requip] 2 mg PO HS 09/03/17 [History] Rosuvastatin [Crestor] 20 mg PO DAILY 09/03/17 [History] risperiDONE [RisperDAL] 0.25 mg PO HS 09/03/17 [History] 3 Allergy/AdvReac Type Severity Reaction Status Date / Time acetaminophen Allergy Hives Verified 12/11/15 11:46 [From Darvocet-N] ibuprofen Allergy Hives Verified 12/11/15 11:46 propoxyphene Allergy Hives Verified 12/11/15 11:46 [From Darvocet-N] tramadol [From Ultram] Allergy Hives Verified 12/11/15 11:46 All Systems PM: A 10-system review of systems was performed and is negative for pertinent findings except as documented above in the HPI. - Constitutional Constitutional: no chills, no fever(s), no night sweats - EENT Eyes: no change in vision, no discharge, no pain, no photophobia Ears: no ear discharge, no ear pain, no tinnitus Nose, mouth and throat: no dysphagia, no nasal discharge, no neck pain, no sore throat - Cardiovascular Cardiovascular ROS IM: no chest pain, no diaphoresis, no dyspnea, no lightheadedness, no palpitations, no syncope - Respiratory Respiratory: no cough, no dyspnea, no wheezing, no excessive phlegm production - Gastrointestinal Gastrointestinal: no abdominal pain, no diarrhea, no hematemesis, no hematochezia, no melena, no nausea, no vomiting - Musculoskeletal Musculoskeletal ROS IM: as per HPI, arthralgias, joint swelling, limited range of motion, numbness, tingling Additional comments: Left little toe as well as surrounding skin is very black in color. - Integumentary Integumentary IM: no rash, no unusual bruising - Neurological Neurological ROS: no confusion, no convulsions, no focal weakness, no numbness, no tingling, no tremor(s) - Hematologic/Lymphatic Hematologic/Lymphatic: no easy bruising - Constitutional Vitals: Temp Pulse Resp BP Pulse Ox 98.5 F 68 18 128/64 98 09/03/17 11:35 09/03/17 13:10 09/03/17 13:10 09/03/17 13:10 09/03/17 13:10 General appearance: Present: A&O X 3, pleasant, no acute distress, answers questions appropriately - Head Head exam: Present: atraumatic, normocephalic - Eye Eye exam: Present: PERRL, conjuntiva pink, sclera anicteric Pupils: Present: PERRL - Neck Neck exam general surgery: Present: supple, trachea midline. Absent: lymphadenopathy - Respiratory Respiratory exam: Present: CTAB. Absent: accessory muscle use, rales, rhonchi, wheezes - Cardiovascular Cardiovascular exam: Present: RRR, +S1, +S2. Absent: diastolic murmur, gallop, rubs, systolic murmur - GI/Abdominal GI/Abdominal exam: Present: normal bowel sounds, soft, no peritoneal signs. Absent: distended, tenderness - Extremities Exam Extremities exam: Present: warm, radial pulses palpable and symmetrical. Absent : calf tenderness, cyanotic, pedal edema - Neurological Exam Neurological exam: Present: CN II-XII intact, oriented X3, no focal deficits. Absent: pronater drift, facial droop, speech deficit - Skin Skin exam: Present: dry, intact Internal Med - H&P Results - Labs CBC & Chem 7: 09/04/17 03:15 09/04/17 03:15
[2017-09-03] MEDS ORDERED: *HR* Morphine 2 MG/ML SYRINGE IVP PRN (14:04)
[2017-09-03] MEDS ORDERED: Naloxone 0.4 MG/ML INJ IVP PRN (14:04)
[2017-09-03] MEDS ORDERED: INSULIN ASPART 30 UNIT SQ SCH (15:00)
[2017-09-03] MEDS ORDERED: Vancomycin 1,250 MG in D5% in Water 250 ML IVPB SCH (15:00)
[2017-09-03] MEDS: Piperacillin/Tazobactam 3.375 GM/200 ML BAG IVPB SCH ×2 (16:47→23:34)
[2017-09-03] MEDS: Albuterol 2.5 MG/3 ML NEBULIZER IH SCH (17:02)
[2017-09-03] MEDS ORDERED: Lisinopril 20 MG TABLET PO SCH (18:00)
[2017-09-03] MEDS ORDERED: D5% in Water 1,000 ML IVC PRN (18:45)
[2017-09-03] MEDS ORDERED: Dextrose Gel 15 GM PO PRN ×2 (18:45)
[2017-09-03] MEDS ORDERED: *HR* Dextrose 50 % in Water (Syg) 50 ML SYRINGE IVP PRN (18:45)
--- NOTE | 2017-09-03 18:58 | Anesthesia Evaluation PreOp ---
Date of Encounter: 09/03/17 Time of Encounter: 18:55 - Past History Cardiac History: HTN, Hyperlipidemia Pulmonary History: Smoker, Pack/yr (1 ppd x 50 years) TOE POUNDER History: Other (peripheral neuropathy) Other Medical History: Renal, Diabetes Type II, GERD, Other (Reactive) Anesthesia History: Past Anesthesia (EGD, Colonoscopy, foot sx) Alcohol Use: none Drug use: none Medications and Allergies Aspirin [Adult Low Dose Aspirin EC] 81 mg PO DAILY 12/11/15 [History] Budesonide/Formoterol 160/4.5 [Symbicort 160/4.5] 2 puff IH BIDR 12/11/15 [ History] Citalopram Hydrobromide [Celexa] 20 mg PO DAILY 12/11/15 [History] Enalapril Maleate [Vasotec] 10 mg PO QPM 12/11/15 [History] Ergocalciferol (VITAMIN D2) [Vitamin D2 (50,000 UNIT)] 50,000 unit PO MÁRQUEZ [History] Omeprazole [PriLOSEC] 20 mg PO BID 12/11/15 [History] SitaGLIPtin [Januvia] 100 mg PO DAILY 12/11/15 [History] Trazodone HCl [TraZODone] 100 mg PO HS 12/11/15 [History] hydrOXYzine HCl [Hydroxyzine HCl] 50 mg PO BID 12/11/15 [History] amLODIPine [Norvasc] 5 mg PO DAILY #30 tablet 08/08/16 [Rx] Cyanocobalamin (B-12) [Vitamin B12] 1,000 mcg PO DAILY #90 tablet 11/28/16 [Rx] Ferrous Sulfate 325 mg PO BIDWM #180 tablet 11/28/16 [Rx] Insulin DETEMIR [Levemir] 20 unit SQ DAILY #5 vial 11/28/16 [Rx] Lactobacillus [Culturelle] 1 each PO BID #60 cap.sprink 11/28/16 [Rx] Magnesium Oxide [Mag-Ox] 400 mg PO BID #60 tablet 11/28/16 [Rx] Nicotine Patch [Nicoderm] 21 mg TD DAILY #30 patch.td24 11/28/16 [Rx] Polyethylene Glycol 3350 [MiraLAX] 17 gm PO DAILY #30 powd.pack 11/28/16 [Rx] Sennosides [Senna] 8.6 mg PO DAILY #06 tablet 11/28/16 [Rx] Tamsulosin [Flomax] 0.4 mg PO DAILY #30 capsule 11/28/16 [Rx] Thiamine HCl 250 mg PO DAILY #90 tablet 11/28/16 [Rx] Albuterol Neb [Proventil Neb] 2.5 mg IH Q4HR 12/02/16 [History] Furosemide [Lasix] 40 mg PO DAILY 12/02/16 [History] Carvedilol [Coreg] 25 mg PO BIDWM #30 tablet 01/01/17 [Rx] Cyclobenzaprine [Flexeril] 10 mg PO BID PRN 09/03/17 [History] Insulin ASPART [Novolog Flexpen] 0 unit SQ TID 09/03/17 [History] Insulin Glargine,Hum.rec.anlog [Basaglar Kwikpen U-100] 0 unit SQ BID 09/03/17 [ History] LevETIRAcetam [Keppra] 1,000 mg PO BID 09/03/17 [History] Ropinirole HCl [Requip] 2 mg PO HS 09/03/17 [History] Rosuvastatin [Crestor] 20 mg PO DAILY 09/03/17 [History] risperiDONE [RisperDAL] 0.25 mg PO HS 09/03/17 [History] 3 Allergy/AdvReac Type Severity Reaction Status Date / Time acetaminophen Allergy Hives Verified 12/11/15 11:46 [From Darvocet-N] ibuprofen Allergy Hives Verified 12/11/15 11:46 propoxyphene Allergy Hives Verified 12/11/15 11:46 [From Darvocet-N] tramadol [From Ultram] Allergy Hives Verified 12/11/15 11:46 - Meds/Allergy Pre-op Review Medications Reviewed: Yes Allergies Reviewed: Yes Beta Blockers on Current Med List: Yes If Beta Blockers taken, Date/Time (Last Dose taken): Last dose @ 16:47 on 2016 Anesthesia Results - Labs 09/03/17 12:49 09/03/17 12:49 - Imaging EKG: report reviewed (SINUS RHYTHM POOR R-WAVE PROGRESSION) Anesthesia Exam O2 Sat Height 1.83 m Weight 83.461 kg O2 Sat by Pulse Oximetry 95 O2 Sat by Pulse Oximetry 97 O2 Sat by Pulse Oximetry 95 O2 Sat by Pulse Oximetry 98 O2 Sat by Pulse Oximetry 98 Vital Signs Temp Pulse Resp BP Pulse Ox 98.5 F 72 20 128/64 98 09/03/17 11:35 09/03/17 11:35 09/03/17 11:35 09/03/17 11:35 09/03/17 11:35 Vital Signs/O2 Sat, Most Current Temp Pulse Resp BP Pulse Ox 97.5 F L 69 15 102/62 95 09/03/17 19:31 09/03/17 19:31 09/03/17 19:31 09/03/17 19:31 09/03/17 19:31 Height: 6' Weight: 184# NPO (# of Hours): > 8 hrs Pain Scale: 0 Pain Scale Used: Numeric (1 - 10) - HEENT Pupil (Motor): Pupils equal, EOMI Mallampati: III Teeth: Edentulous Oral Opening: Greater than 3 - TOE POUNDER LOC: Oriented TOE POUNDER Motor: Normal RUE, Normal LUE, Normal RLE, Normal LLE, Normal Face TOE POUNDER Sensory: Normal: RUE, LUE, RLE, LLE, Face - Cardiac Rhythm: Regular Murmur: None JVD: No Carotid Bruit: No - Pulmonary Breath Sounds: bilateral Clear Respiratory Effort: Symmetrical Anesthesia Assess/Plan ASA Score: 3 Modified [place] Scale for Level of Consciousness: Cooperative, oriented, and tranquil Anesthetic Plan: MAC Autologous Blood: Yes Monitoring Plan: Standard Monitors Recovery Plan: Other
[2017-09-03] MEDS ORDERED: traZODone 50 MG TABLET PO SCH (21:00)
[2017-09-03] MEDS ORDERED: risperiDONE 0.25 MG TABLET PO SCH (21:00)
[2017-09-03] MEDS ORDERED: Insulin LISPRO 300 UNITS/3 ML VIAL SQ SCH (21:00)
[2017-09-03] MEDS ORDERED: rOPINIRole 1 MG TABLET PO SCH (21:00)
[2017-09-03] MEDS: levETIRAcetam 250 MG TABLET PO SCH (21:11)
[2017-09-03] MEDS: Magnesium Oxide 400 MG TABLET PO SCH (21:12)
[2017-09-04] MEDS: Albuterol 2.5 MG/3 ML NEBULIZER IH SCH ×8 (00:06→23:56)
[2017-09-04] MEDS: Budesonide/Formoterol 160/4.5 MDI IH SCH ×3 (01:42→20:09)
[2017-09-04 03:33] LABS: Basophils # 0.1 K/mcL (0.0-0.2); Basophils % 0.4 %; Eosinophils # 0.4 K/mcL (0.0-0.6); Eosinophils % 3.4 %; Hematocrit 24.7 % (37.5-50.1); Immature Granulocytes % 0.8 % (0-4); Lymphocytes # 1.7 K/mcL (0.6-4.6); Lymphocytes % 14.4 %; Mean Corpuscular HGB Conc 34.8 g/dL (31.6-35.5); Mean Corpuscular Hemoglobin 28.3 pg (28.0-33.3); Mean Corpuscular Volume 81.3 fL (83.0-100.0); Mean Platelet Volume 9.3 fL (9.4-12.4); Monocytes # 1.1 K/mcL (0.0-1.3); Monocytes % 9.2 %; Neutrophils # 8.6 K/mcL (1.6-8.9); Platelet Count 278 K/mcL (140-400); Red Blood Count 3.04 M/mcL (4.19-5.50); Red Cell Distribution Width 12.7 % (11.5-14.5); Segmented Neutrophils % 71.8 %
[2017-09-04 03:34] LABS: Hemoglobin 8.6 g/dL (12.9-16.9)
[2017-09-04 03:37] LABS: INR 1.1; Prothrombin Time 11.5 Seconds (9.4-12.1)
[2017-09-04 03:39] LABS: Activated Partial Thrombo Time 25.7 Seconds (26.0-36.0)
[2017-09-04 03:41] LABS: Alanine Aminotransferase 6 Units/L (0-55); Albumin/Globulin Ratio 0.3 (1.1-2.2); Alkaline Phosphatase 101 Units/L (38-126); Aspartate Amino Transferase 6 Units/L (5-34); BUN/Creatinine Ratio 14 (6-26); Blood Urea Nitrogen 26 mg/dL (8-26); Calcium 8.6 mg/dL (8.6-10.8); Carbon Dioxide 22 mEq/L (19-29); Chloride 103 mEq/L (98-109); Chol/HDL Ratio 28.1 (0-4.9); Cholesterol 197 mg/dL (< 200); Globulin 4.7 g/dL (2.4-3.5); Glucose 380 mg/dL (70-99); HDL Cholesterol 7 mg/dL (40-59); Magnesium 1.6 mg/dL (1.6-2.6); Osmolality,Calculated 294 (280-300); Phosphorous 2.8 mg/dL (2.3-4.7); Potassium 3.9 mEq/L (3.5-4.5); Sodium 132 mEq/L (136-145); Total Protein 6.3 g/dL (6.0-8.3); Triglycerides 1025 mg/dL (< 150); eGFR For African Americans 44 (> 60); eGFR For Non-African Americans 36 (> 60)
[2017-09-04 03:46] LABS: Albumin 1.6 g/dL (3.5-5.0); Bilirubin,Total < 0.2 mg/dL (0.2-1.2)
--- NOTE | 2017-09-04 08:38 | Podiatry Consult Note ---
Date of Encounter: 09/03/17 Time of Encounter: 17:00 Assessment and Plan (1) Cellulitis of left foot Current visit: Yes Status: Acute Continue current antibiotic treatment- vanc and zosyn- monitor renal function Temp 99.3, wbc 13.4 on admission Blood cultures have been obtained Will obtain intra-op cultures (2) Gangrene of left foot Current visit: Yes Status: Acute Gangrene of toe #5 left foot, diabetic ulcer to sub met #5 and possible tracking abscess to mid/plantar foot. #1 assessed at bedside #2 gangrene noted to toe #5 left foot, diabetic ulceration noted sub met #5 with undermining 2cm lateral and medial #3 there is also a large fluid filled bulla noted to mid plantar foot, unsure if this connects to lateral wound or if this is a separate issue. #4 Foul odor noted to toe, there is no drainage noted at this time #5 There is probe to bone at the location of the 5th metatarsal head and proximal phalanx #6 to take to surgery on 09/04 for I&D of foot wound and amputation of toe #5 left foot #7 NPO after midnight #8 applied adaptic and dry dressing at this time, may leave in place until surgery unless dressing would become soiled or saturated History of Present Illness HPI: Mr. Regalado is a 62 year old male who has been admitted for a left foot ulceration and gangrene of left toe #5. Patient states he has been staying with his nephew and was admitted to a LTCF this past saturday. States that upon removing his sock the nursing staff noted the ulceration of the toe. Patient states he did not know the ulceration was there. States that he checked his feet the saturday before and there was nothing there. Patient has profound neuropathy. Denies any pain. States he was having some chills prior to admission. Denies any n/v or flu like symptoms. Patient was admitted to [facility], started on vanc and zosyn. Admit wbc 13.4. VS stable. Blood cultures were obtained. Patient resting comfortably on arrival with dry dressing intact to LLE. Past Med Surg Social Fam HX - Past Medical History Medical history: arthritis, COPD, diabetes, GERD, hepatitis, hyperlipidemia, hypertension, osteoporosis, renal disease, syncope Psychiatric history: anxiety, depression - Past Surgical History Surgical History: cataract, LE stent(s), orthopedic, other - Social History Smoking Status: Current every day smoker Packs per day: 1 Smokeless Tobacco Status: No Alcohol use: none Drug use: none - Family History Mother History Unknown: Yes Living Status: Hx Family Cardiac Disorders: Yes (htn) Hx Family Respiratory Disorders: No Hx Family Cancer: Yes Hx Family Endocrine Disorder: Yes (dm) Father Living Status: Medications and Allergies Aspirin [Adult Low Dose Aspirin EC] 81 mg PO DAILY 12/11/15 [History] Budesonide/Formoterol 160/4.5 [Symbicort 160/4.5] 2 puff IH BIDR 12/11/15 [ History] Citalopram Hydrobromide [Celexa] 20 mg PO DAILY 12/11/15 [History] Enalapril Maleate [Vasotec] 10 mg PO QPM 12/11/15 [History] Ergocalciferol (VITAMIN D2) [Vitamin D2 (50,000 UNIT)] 50,000 unit PO MÁRQUEZ [History] Omeprazole [PriLOSEC] 20 mg PO BID 12/11/15 [History] SitaGLIPtin [Januvia] 100 mg PO DAILY 12/11/15 [History] Trazodone HCl [TraZODone] 100 mg PO HS 12/11/15 [History] hydrOXYzine HCl [Hydroxyzine HCl] 50 mg PO BID 12/11/15 [History] amLODIPine [Norvasc] 5 mg PO DAILY #30 tablet 08/08/16 [Rx] Cyanocobalamin (B-12) [Vitamin B12] 1,000 mcg PO DAILY #90 tablet 11/28/16 [Rx] Ferrous Sulfate 325 mg PO BIDWM #180 tablet 11/28/16 [Rx] Insulin DETEMIR [Levemir] 20 unit SQ DAILY #5 vial 11/28/16 [Rx] Lactobacillus [Culturelle] 1 each PO BID #60 cap.sprink 11/28/16 [Rx] Magnesium Oxide [Mag-Ox] 400 mg PO BID #60 tablet 11/28/16 [Rx] Nicotine Patch [Nicoderm] 21 mg TD DAILY #30 patch.td24 11/28/16 [Rx] Polyethylene Glycol 3350 [MiraLAX] 17 gm PO DAILY #30 powd.pack 11/28/16 [Rx] Sennosides [Senna] 8.6 mg PO DAILY #06 tablet 11/28/16 [Rx] Tamsulosin [Flomax] 0.4 mg PO DAILY #30 capsule 11/28/16 [Rx] Thiamine HCl 250 mg PO DAILY #90 tablet 11/28/16 [Rx] Albuterol Neb [Proventil Neb] 2.5 mg IH Q4HR 12/02/16 [History] Furosemide [Lasix] 40 mg PO DAILY 12/02/16 [History] Carvedilol [Coreg] 25 mg PO BIDWM #30 tablet 01/01/17 [Rx] Cyclobenzaprine [Flexeril] 10 mg PO BID PRN 09/03/17 [History] Insulin ASPART [Novolog Flexpen] 0 unit SQ TID 09/03/17 [History] Insulin Glargine,Hum.rec.anlog [Basaglar Kwikpen U-100] 0 unit SQ BID 09/03/17 [ History] LevETIRAcetam [Keppra] 1,000 mg PO BID 09/03/17 [History] Ropinirole HCl [Requip] 2 mg PO HS 09/03/17 [History] Rosuvastatin [Crestor] 20 mg PO DAILY 09/03/17 [History] risperiDONE [RisperDAL] 0.25 mg PO HS 09/03/17 [History] 3 Allergy/AdvReac Type Severity Reaction Status Date / Time acetaminophen Allergy Hives Verified 12/11/15 11:46 [From Darvocet-N] ibuprofen Allergy Hives Verified 12/11/15 11:46 propoxyphene Allergy Hives Verified 12/11/15 11:46 [From Darvocet-N] tramadol [From Ultram] Allergy Hives Verified 12/11/15 11:46 All Systems Reviewed: A 10-system review of systems was performed and is negative for pertinent findings except as documented above in the HPI. Physical Exam - Constitutional Vitals: Temp Pulse Resp BP Pulse Ox 98.7 F 68 16 128/54 98 09/04/17 06:30 09/04/17 06:30 09/04/17 06:30 09/04/17 06:30 09/04/17 06:30 Exam: Awake, alert and oriented Pulses palpable DP/PT Cap refill <3 seconds to all digits except toe #5 of left foot which is blue, cold and non-blanching. Muscle strength 5/5 and equal bilaterally No sensation to touch- Denies any known pain Left foot- Sub mt #5, [id number] ulceration with probe to bone- undermining of 2cm towards toe #5 and 2cm medially. There is no noted drainage. 5th digit is blue, non blanching and cold. Skin sloughing noted. There is a large bulla noted to center of plantar aspect of foot, appears serosang fluid filled, fluctuance noted, appears to be possibly connected to ulceration. Mild edema and erythema noted to foot ascending to just above ankle- consistent with cellulitis. Foot warm to touch. Results - Labs Result Diagrams: 09/04/17 03:15 09/04/17 03:15 Labs: Abnormal lab results WBC 12.0 K/mcL (4.3-11.1) H 09/04/17 03:15 RBC 3.04 M/mcL (4.19-5.50) L 09/04/17 03:15 Hgb 8.6 g/dL (12.9-16.9) L D 09/04/17 03:15 Hct 24.7 % (37.5-50.1) L 09/04/17 03:15 MCV 81.3 fL (83.0-100.0) L 09/04/17 03:15 MPV 9.3 fL (9.4-12.4) L 09/04/17 03:15 ESR 74 mm/hr (0-10) H 09/04/17 03:15 APTT 25.7 Seconds (26.0-36.0) L 09/04/17 03:15 Sodium 132 mEq/L (136-145) L 09/04/17 03:15 Creatinine 1.90 mg/dL (0.72-1.25) H 09/04/17 03:15 Est GFR ( Amer) 44 (> 60) L 09/04/17 03:15 Est GFR (Non-Af Amer) 36 (> 60) L 09/04/17 03:15 Glucose 380 mg/dL (70-99) H 09/04/17 03:15 POC Glucose 362 (58-89) H 09/04/17 07:51 Total Bilirubin < 0.2 mg/dL (0.2-1.2) L 09/04/17 03:15 C-Reactive Protein 285 mg/L (Less than 5) H 09/04/17 03:15 B-Natriuretic Peptide 281 pg/mL (0-100) H 09/04/17 03:15 Albumin 1.6 g/dL (3.5-5.0) L 09/04/17 03:15 Globulin 4.7 g/dL (2.4-3.5) H 09/04/17 03:15 Albumin/Globulin Ratio 0.3 (1.1-2.2) L 09/04/17 03:15 Triglycerides 1025 mg/dL (< 150) H 09/04/17 03:15 HDL Cholesterol 7 mg/dL (40-59) L 09/04/17 03:15 Cholesterol/HDL Ratio 28.1 (0-4.9) H 09/04/17 03:15 H & H 09/04/17 Range/Units 03:15 Hgb 8.6 L D (12.9-16.9) g/dL Hct 24.7 L (37.5-50.1) % All other labs normal. Consult Discharge Plan - Plan Referrals: Mark Coe MD [Primary Care Provider] -
[2017-09-04] MEDS: Insulin LISPRO 300 UNITS/3 ML VIAL SQ SCH ×4 (08:56→21:33)
[2017-09-04] MEDS: levETIRAcetam 250 MG TABLET PO SCH ×2 (08:56→21:32)
[2017-09-04] MEDS: Magnesium Oxide 400 MG TABLET PO SCH ×2 (08:57→21:31)
[2017-09-04] MEDS: Piperacillin/Tazobactam 3.375 GM/200 ML BAG IVPB SCH (08:58)
[2017-09-04] MEDS ORDERED: Aspirin Enteric Coated 81 MG Tablet PO SCH (09:00)
[2017-09-04] MEDS ORDERED: amLODIPine 5 MG TABLET PO SCH (09:00)
[2017-09-04] MEDS ORDERED: Furosemide 40 MG TABLET PO SCH (09:00)
[2017-09-04] MEDS ORDERED: Nicotine 21 MG PATCH.TD24 TD SCH (09:00)
[2017-09-04] MEDS ORDERED: Sennosides 8.6 MG TABLET PO SCH (09:00)
[2017-09-04] MEDS ORDERED: Thiamine (B-1) 100 MG TABLET PO SCH (09:00)
[2017-09-04] MEDS ORDERED: Insulin DETEMIR 100 UNIT/ML X5UNITS SQ SCH (09:00)
[2017-09-04] MEDS ORDERED: Bupivacaine/Clonidine Syringe 1 EACH SYRINGE ONE (11:18)
[2017-09-04] MEDS ORDERED: Propofol 500 MG/50 ML INFUS..BTL ONE ×2 (11:43→12:51)
[2017-09-04] MEDS ORDERED: *HR* Propofol 200 MG/20 ML VIAL IVP ONE (11:43)
[2017-09-04] MEDS ORDERED: Lidocaine -MPF 2% 2 ML VIAL ONE (11:43)
[2017-09-04] MEDS ORDERED: *HR* FentaNYL (PF) 100 MCG/2 ML VIAL ONE (12:27)
[2017-09-04] MEDS ORDERED: Vancomycin 1,250 MG in D5% in Water 250 ML IVPB SCH (13:00)
--- NOTE | 2017-09-04 13:33 | Orthopedic Operative Note ---
Date of procedure: 09/04/17 Pre-op diagnosis: #1 gangrene left foot, fifth toe. #2 abscess left foot #3 osteomyelitis Post-op diagnosis: same Procedure: 09/04/17 13:31 #1: Incision and drainage to bone for osteomyelitis #2 open amputation of toe #5 with metatarsal #3 debridement left foot with placement of wound VAC #4 these procedures are considered a staged procedure patient will likely need further debridement and possible amputation of toe metatarsal 09/04/17 13:32 Implants: None Complications: None Anesthesia: MAC, local Surgeon: Ernesto Pace Estimated blood loss (cc): 10 Tourniquet Time (Minutes): 0 Specimen: Toe metatarsal #5 left foot, tissue cultures and swab cultures left foot Condition: stable Disposition: floor Procedure in Detail: 09/04/17 13:33 Details in summary of procedure: Patient brought to surgical suite. A sign in procedure was performed. Patient's transfer to the surgical table and positioned properly safely securely. No tourniquet was used. Left foot was elevated on a foam block. Anesthesia timeout was taken. Patient was sedated left ankle prepped with alcohol neck block carried out without complication. Surgical timeout was taken. Left foot was prepped and draped in usual sterile manner. We noted complete gangrenous changes of the fifth toe left foot with abscess and purulent drainage in the plantar aspect of fifth MTPJ. Abscess was noted to form on the plantar medial arch. That juncture to semi-elliptical incisions were carried out in a racquet-type fashion, to the bone/cortex of the base of fifth toe metatarsophalangeal joint, about the fifth toe and brought proximally along the shaft of fifth metatarsal. The incision was then taken from the base of fifth metatarsophalangeal joint obliquely toward the phlegmon on the plantar medial arch. Seropurulent drainage was expressed immediately cultured. That juncture the fifth toe was then disarticulated by dividing all the extensor flexor tendons and capsular structures cleanly. The head of the fifth metatarsal was noted to be villavicencio and dark was not of normal color texture density. The metatarsal was isolated using a McClamary elevator. The distal one half metatarsal was resected with a command power saw. Remaining bone was of normal color texture density. No purulent drainage was noted. This wound was more necrotic as opposed to purulent. Nonetheless all necrotic tissue was aggressively debrided with a pickup and Metzenbaum scissor. Many tissue was debrided with ultrasonic Misonix debrider. Tissue cultures were taken as well and sent for culture. Specimen toe and metatarsal. Placed in formalin and sent to pathology. The wound was then thoroughly irrigated with sterile saline. Any remaining nonviable tissue was debrided. Excisional debridement was carried down to the level of the intrinsic musculature. The plantar fascia was divided along the incision with #15 scalpel blade to assure there is no called abscess noted. There is no central space infection. This excisional debridement was carried out in such a fashion that all nonviable tissue was excised in toto. Fourth toe was suspicious as far as the vasculature but was left intact until such time the wound will eventually demarcate. At that point we will tend then adequately determined level debridement and eventual amputation to give the patient a plantigrade functional foot. Wound was dressed with wound VAC and found to function properly. Patient, was transported to holding room in good condition with vital signs stable. Estimated blood loss less than 10 mL. Patient will be evaluated by vascular surgery to determine if he has left limb can be reperfused. 09/06/17 17:31
[2017-09-04] MEDS ORDERED: 0.9 % Sodium Chloride 1,000 ML IVC SCH (13:52)
[2017-09-04] MEDS ORDERED: D5% in Water 1,000 ML IVC PRN (13:52)
[2017-09-04] MEDS ORDERED: Dextrose Gel 15 GM PO PRN ×2 (13:52)
[2017-09-04] MEDS ORDERED: *HR* Morphine 2 MG/ML SYRINGE IVP PRN (13:52)
[2017-09-04] MEDS ORDERED: Naloxone 0.4 MG/ML INJ IVP PRN (13:52)
[2017-09-04] MEDS ORDERED: *HR* Dextrose 50 % in Water (Syg) 50 ML SYRINGE IVP PRN (13:52)
[2017-09-04] MEDS ORDERED: Piperacillin/Tazobactam 3.375 GM/200 ML BAG IVPB SCH (16:00)
--- NOTE | 2017-09-04 16:08 | Vascular/Endovasc Consult Note ---
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 The patient was recently admitted with a gangrenous left foot and required incision and drainage. The patient had ABIs earlier this year which were within normal limits. However, due to his diabetes and gangrenous changes, he may have vessel calcinosis and significant tibial disease. The patient will be scheduled for an angiogram with possible intervention. This may be done as an outpatient next week. The risks, benefits and alternatives were discussed and all questions were answered. He expressed understanding and wishes to proceed. (2) CKD (chronic kidney disease) stage 3, GFR 30-59 ml/min Current Visit: Yes Status: Chronic (3) COPD (chronic obstructive pulmonary disease) Current Visit: Yes Status: Chronic Qualifiers: COPD type: unspecified COPD Qualified Code(s): J44.9 - Chronic obstructive pulmonary disease, unspecified (4) Hypertension Current Visit: Yes Status: Chronic He was counseled regarding atherosclerotic risk factor reduction. Qualifiers: Hypertension type: essential hypertension Qualified Code(s): I10 - Essential (primary) hypertension (5) Hypertriglyceridemia Current Visit: Yes Status: Chronic (6) Microcytic hypochromic anemia Current Visit: Yes Status: Chronic (7) Nicotine dependence with nicotine-induced disorder Current Visit: Yes Status: Chronic He was counseled regarding smoking cessation. Qualifiers: Nicotine product type: cigarettes Qualified Code(s): F17.219 - Nicotine dependence, cigarettes, with unspecified nicotine-induced disorders (8) Obesity (BMI 30.0-34.9) Current Visit: Yes Status: Chronic (9) Poorly controlled diabetes mellitus Current Visit: Yes Status: Chronic - History of Present Illness Consult date: 09/04/17 Requesting physician: Ernesto Pace Consult reason: Peripheral vasculr disease Chief complaint: Left foot abscess History of present illness: Mr. Regalado is a 62 year old male with history of hypeternsion, diabetes, COPD , chronic kidney disease, hyperlipidemia and tobacco abuse. He presented to [facility] with coplains of left foot pain, tendernes, swelling and erythema. He was found to have left foot cellulits, a left foot abscess and possible osteomyelitis. The patient was admitted to [facility] and started in intravenous antibiotics. The patient was seen by podiatry and taken to the OR on 09/04/17 for incision and drainage of his abscess. Concern for peripheral vascular disease arose and vascular surgery was consulted for further evaluation. The patient is currently comfortable. He reports adequate pain control. He denies any fevers or chills. He denies chest pain or shortness of breath. Past Med Surg Social Fam HX - Past Medical History Medical history: arthritis, COPD, diabetes, GERD, hepatitis, hyperlipidemia, hypertension, osteoporosis, renal disease, syncope Psychiatric history: anxiety, depression - Past Surgical History Surgical History: cataract, LE stent(s), orthopedic, other - Social History Smoking Status: Current every day smoker Packs per day: 1 Smokeless Tobacco Status: No Alcohol use: none Drug use: none - Family History Mother History Unknown: Yes Living Status: Hx Family Cardiac Disorders: Yes (htn) Hx Family Respiratory Disorders: No Hx Family Cancer: Yes Hx Family Endocrine Disorder: Yes (dm) Father Living Status: Medications and Allergies Aspirin [Adult Low Dose Aspirin EC] 81 mg PO DAILY 12/11/15 [History] Budesonide/Formoterol 160/4.5 [Symbicort 160/4.5] 2 puff IH BIDR 12/11/15 [ History] Citalopram Hydrobromide [Celexa] 20 mg PO DAILY 12/11/15 [History] Enalapril Maleate [Vasotec] 10 mg PO QPM 12/11/15 [History] Ergocalciferol (VITAMIN D2) [Vitamin D2 (50,000 UNIT)] 50,000 unit PO MÁRQUEZ [History] Omeprazole [PriLOSEC] 20 mg PO BID 12/11/15 [History] SitaGLIPtin [Januvia] 100 mg PO DAILY 12/11/15 [History] Trazodone HCl [TraZODone] 100 mg PO HS 12/11/15 [History] hydrOXYzine HCl [Hydroxyzine HCl] 50 mg PO BID 12/11/15 [History] amLODIPine [Norvasc] 5 mg PO DAILY #30 tablet 08/08/16 [Rx] Cyanocobalamin (B-12) [Vitamin B12] 1,000 mcg PO DAILY #90 tablet 11/28/16 [Rx] Ferrous Sulfate 325 mg PO BIDWM #180 tablet 11/28/16 [Rx] Insulin DETEMIR [Levemir] 20 unit SQ DAILY #5 vial 11/28/16 [Rx] Lactobacillus [Culturelle] 1 each PO BID #60 cap.sprink 11/28/16 [Rx] Magnesium Oxide [Mag-Ox] 400 mg PO BID #60 tablet 11/28/16 [Rx] Nicotine Patch [Nicoderm] 21 mg TD DAILY #30 patch.td24 11/28/16 [Rx] Polyethylene Glycol 3350 [MiraLAX] 17 gm PO DAILY #30 powd.pack 11/28/16 [Rx] Sennosides [Senna] 8.6 mg PO DAILY #06 tablet 11/28/16 [Rx] Tamsulosin [Flomax] 0.4 mg PO DAILY #30 capsule 11/28/16 [Rx] Thiamine HCl 250 mg PO DAILY #90 tablet 11/28/16 [Rx] Albuterol Neb [Proventil Neb] 2.5 mg IH Q4HR 12/02/16 [History] Furosemide [Lasix] 40 mg PO DAILY 12/02/16 [History] Carvedilol [Coreg] 25 mg PO BIDWM #30 tablet 01/01/17 [Rx] Cyclobenzaprine [Flexeril] 10 mg PO BID PRN 09/03/17 [History] Insulin ASPART [Novolog Flexpen] 0 unit SQ TID 09/03/17 [History] Insulin Glargine,Hum.rec.anlog [Basaglar Kwikpen U-100] 0 unit SQ BID 09/03/17 [ History] LevETIRAcetam [Keppra] 1,000 mg PO BID 09/03/17 [History] Ropinirole HCl [Requip] 2 mg PO HS 09/03/17 [History] Rosuvastatin [Crestor] 20 mg PO DAILY 09/03/17 [History] risperiDONE [RisperDAL] 0.25 mg PO HS 09/03/17 [History] 3 Allergy/AdvReac Type Severity Reaction Status Date / Time acetaminophen Allergy Hives Verified 12/11/15 11:46 [From Darvocet-N] ibuprofen Allergy Hives Verified 12/11/15 11:46 propoxyphene Allergy Hives Verified 12/11/15 11:46 [From Darvocet-N] tramadol [From Ultram] Allergy Hives Verified 12/11/15 11:46 All Systems Review: A 10-system review of systems was performed and is negative for pertinent findings except as documented above in the HPI. Exam Vital Signs, Last 4 Hours Temp Pulse Resp BP Pulse Ox 09/04/17 14:00 97.6 F 56 18 122/69 99 General: Present: Conversant, No Apparent Distress HEENT: Present: Atraumatic, Pupils equal Neck: Absent: JVD, Lymphadenopathy, Left Carotid bruit, Right Carotid bruit Cardiac: Present: Reg Rate and Rhythm, Normal S1 and S2 Lungs: Present: Normal Breath Sounds, No Wheeze, Rales, Rhonchi Neuro: Present: Alert and responsive, No focal deficits noted, Motor nerves grossly intact, Sensory nerves grossly intact Abdomen: Present: Soft, Non-tender, Other (abdominal aorta not palpable). Absent: Masses Vascular: Present: Normal capillary refill, Surgical incisions (left foot is bandaged). Absent: Clubbing, Cyanosis, Edema Consult Discharge Plan - Plan Referrals: Mark Coe MD [Primary Care Provider] -
[2017-09-04] MEDS: Vancomycin 1,250 MG in D5% in Water 250 ML IVPB SCH (16:30)
--- NOTE | 2017-09-04 17:10 | Internal Med Progress Note ---
Date of Encounter: 09/04/17 Time of Encounter: 17:05 - Assessment and plan (1) Gangrene of left foot Current Visit: Yes Status: Acute Assessment and plan: s/p Left foot 5th toe and metatarsal amputation POD # 0 cont empirical abx Zosyn and Vanco - renally dosed abx Cont IV hydration May need further debridement Will talk to insulation power unit tender Dr. Pace about abx duration waiting on vascular studies Vascular surgery consulted (2) Cellulitis of left foot Current Visit: Yes Status: Acute Assessment and plan: improving cont abx (3) Acute kidney injury superimposed on chronic kidney disease Current Visit: No Status: Acute Assessment and plan: He does have CKD-3 with last Cr 1.2 @ 12/21 Now his Cr @ 1.9 Cont close monitoring avoid nephro toxic meds renally dosed abx IV hydration (4) Diastolic CHF Current Visit: No Status: Chronic Assessment and plan: euvolemic not in exacerbation Qualifiers: Congestive heart failure chronicity: acute on chronic Qualified Code(s): I50.33 - Acute on chronic diastolic (congestive) heart failure (5) Hypertension Current Visit: No Status: Acute Assessment and plan: stable with current regimen Qualifiers: Hypertension type: essential hypertension Qualified Code(s): I10 - Essential (primary) hypertension (6) Poorly controlled diabetes mellitus Current Visit: No Status: Chronic Assessment and plan: will f/u on HbA1C will inc Levemir to 20 U BID cont ISS (7) COPD (chronic obstructive pulmonary disease) Current Visit: No Status: Chronic Assessment and plan: stable resumed home INH regimen Qualifiers: COPD type: unspecified COPD Qualified Code(s): J44.9 - Chronic obstructive pulmonary disease, unspecified (8) DVT prophylaxis Current Visit: No Status: Acute Assessment and plan: will start him on Heparin SQ - Subjective Interval history: This is a 62 y/o M with known PMH of COPD, diabetes, GERD, hepatitis, hyperlipidemia, hypertension, osteoporosis, CKD-3 admitted with Gangrene of Left 5th toe. Pt did go for amputation of Left 5th toe with metatarsal today. He is resting comfortably now. Denied ay CP / SOB. Pain tolerable with current medications - Constitutional Vitals: Temp Pulse Resp BP Pulse Ox 97.6 F 56 18 122/69 99 09/04/17 14:00 09/04/17 14:00 09/04/17 14:00 09/04/17 14:00 09/04/17 14:00 General appearance: Present: A&O X 3, pleasant, no acute distress, answers questions appropriately - Head Head exam: Present: atraumatic, normal inspection - Neck Neck exam general surgery: Present: supple - Respiratory Respiratory exam: Present: decreased breath sounds. Absent: rales, respiratory distress, rhonchi, wheezes - Cardiovascular Cardiovascular exam: Present: RRR, +S1, +S2. Absent: systolic murmur - GI/Abdominal GI/Abdominal exam: Present: normal bowel sounds, soft. Absent: rebound, rigid, tenderness - Extremities Exam Extremities exam: Present: pedal edema (mild swelling over left ankl,e left foot ). Absent: calf tenderness Additional comments: s/p amputation of left foot 5th toe.. dressing is on + , Wound vac bag + - Back Exam Back exam: Absent: CVA tenderness (L), CVA tenderness (R) - Neurological Exam Neurological exam: Present: alert, oriented X3 - Psychiatric Psychiatric exam: Present: normal affect, normal mood Internal Medicine: Result - Labs CBC & Chem 7: 09/04/17 03:15 09/04/17 03:15 Labs: Short CBC 09/04/17 Range/Units 03:15 WBC 12.0 H (4.3-11.1) K/mcL Hgb 8.6 L D (12.9-16.9) g/dL Hct 24.7 L (37.5-50.1) % Plt Count 278 (140-400) K/mcL Neutrophils # 8.6 (1.6-8.9) K/mcL BMP 09/04/17 03:15 Sodium 132 L Potassium 3.9 Chloride 103 Carbon Dioxide 22 BUN 26 Creatinine 1.90 H Glucose 380 H Calcium 8.6 Cardiac Enzymes 09/03/17 09/04/17 Range/Units 20:03 03:15 Troponin I 0.01 0.00 (0-0.03) ng/mL Liver Function 09/04/17 Range/Units 03:15 Total Bilirubin < 0.2 L (0.2-1.2) mg/dL AST 6 (5-34) Units/L ALT 6 (0-55) Units/L Alkaline Phosphatase 101 (38-126) Units/L Albumin 1.6 L (3.5-5.0) g/dL - ABG Interpretation ABG results: PT/INR, D-dimer PT 11.5 Seconds (9.4-12.1) 09/04/17 03:15 - VTE Documentation of Mechanical Device: Graduated compression elastic hosiery Consult Discharge Plan - Plan Referrals: Mark Coe MD [Primary Care Provider] -
[2017-09-04] MEDS: traZODone 50 MG TABLET PO SCH (21:31)
[2017-09-04] MEDS: rOPINIRole 1 MG TABLET PO SCH (21:31)
[2017-09-04] MEDS: hydrOXYzine pamoate 25 MG CAPSULE PO SCH (21:31)
[2017-09-04] MEDS: Insulin DETEMIR 100 UNIT/ML X5UNITS SQ SCH (21:32)
[2017-09-04] MEDS: risperiDONE 0.25 MG TABLET PO SCH (21:32)
[2017-09-05] MEDS: Albuterol 2.5 MG/3 ML NEBULIZER IH SCH ×6 (03:16→23:48)
[2017-09-05 05:45] LABS: Basophils # 0.1 K/mcL (0.0-0.2); Basophils % 0.6 %; Eosinophils # 0.5 K/mcL (0.0-0.6); Eosinophils % 4.5 %; Hematocrit 25.7 % (37.5-50.1); Hemoglobin 8.7 g/dL (12.9-16.9); Immature Granulocytes % 1.1 % (0-4); Lymphocytes # 2.3 K/mcL (0.6-4.6); Lymphocytes % 20.4 %; Mean Corpuscular HGB Conc 33.9 g/dL (31.6-35.5); Mean Corpuscular Volume 82.6 fL (83.0-100.0); Mean Platelet Volume 9.6 fL (9.4-12.4); Monocytes % 9.1 %; Neutrophils # 7.3 K/mcL (1.6-8.9); Platelet Count 328 K/mcL (140-400); Red Blood Count 3.11 M/mcL (4.19-5.50); Red Cell Distribution Width 13.1 % (11.5-14.5); Segmented Neutrophils % 64.3 %
[2017-09-05 05:53] LABS: Calcium 8.6 mg/dL (8.6-10.8); Magnesium 1.6 mg/dL (1.6-2.6); Potassium 4.3 mEq/L (3.5-4.5)
[2017-09-05] MEDS ORDERED: Piperacillin/Tazobactam 3.375 GM/200 ML BAG IVPB SCH (06:00)
[2017-09-05 06:14] LABS: Hemoglobin A1C 13.7 %
[2017-09-05] MEDS: Budesonide/Formoterol 160/4.5 MDI IH SCH ×2 (07:52→20:29)
[2017-09-05] MEDS: Insulin LISPRO 300 UNITS/3 ML VIAL SQ SCH ×4 (08:32→21:00)
[2017-09-05] MEDS: Insulin DETEMIR 100 UNIT/ML X5UNITS SQ SCH ×2 (08:33→21:01)
[2017-09-05] MEDS: Aspirin Enteric Coated 81 MG Tablet PO SCH (08:33)
[2017-09-05] MEDS: Magnesium Oxide 400 MG TABLET PO SCH ×2 (08:33→20:32)
[2017-09-05] MEDS: Sennosides 8.6 MG TABLET PO SCH (08:34)
[2017-09-05] MEDS: hydrOXYzine pamoate 25 MG CAPSULE PO SCH ×2 (08:34→20:32)
[2017-09-05] MEDS: Thiamine (B-1) 100 MG TABLET PO SCH (08:34)
[2017-09-05] MEDS: amLODIPine 5 MG TABLET PO SCH (08:34)
[2017-09-05] MEDS: Nicotine 21 MG PATCH.TD24 TD SCH (08:35)
[2017-09-05] MEDS: levETIRAcetam 250 MG TABLET PO SCH ×2 (08:35→20:31)
[2017-09-05] MEDS ORDERED: Furosemide 40 MG TABLET PO SCH (09:00)
[2017-09-05] MEDS ORDERED: Insulin DETEMIR 100 UNIT/ML X5UNITS SQ SCH (09:00)
--- NOTE | 2017-09-05 10:40 | Internal Med Progress Note ---
Date of Encounter: 09/05/17 Time of Encounter: 10:30 - Assessment and plan (1) Gangrene of left foot Current Visit: Yes Status: Acute Assessment and plan: s/p Left foot 5th toe and metatarsal amputation on 09/04/17 cont empirical abx Zosyn and Vanco - renally dosed abx Cont IV hydration May need further debridement Wound cx - P Blood cx - no growth so far Will talk to supervisor pit and auxiliaries Dr. Pace about abx duration Vascular surgery consulted - Planning on doing angiogram as an out pt (2) Cellulitis of left foot Current Visit: Yes Status: Acute Assessment and plan: improving cont abx (3) Acute kidney injury superimposed on chronic kidney disease Current Visit: No Status: Acute Assessment and plan: He does have CKD-3 with last Cr 1.2 @ 12/21 Cr started trending down Cont close monitoring avoid nephro toxic meds renally dosed abx Cont IV hydration (4) Diastolic CHF Current Visit: No Status: Chronic Assessment and plan: euvolemic not in exacerbation Qualifiers: Congestive heart failure chronicity: acute on chronic Qualified Code(s): I50.33 - Acute on chronic diastolic (congestive) heart failure (5) Hypertension Current Visit: No Status: Acute Assessment and plan: stable with current regimen Qualifiers: Hypertension type: essential hypertension Qualified Code(s): I10 - Essential (primary) hypertension (6) Poorly controlled diabetes mellitus Current Visit: No Status: Chronic Assessment and plan: His HbA1C - 13.7 BS still fairly controlled will inc Levemir to 30 U BID cont ISS at medium (7) COPD (chronic obstructive pulmonary disease) Current Visit: No Status: Chronic Assessment and plan: stable resumed home INH regimen Qualifiers: COPD type: unspecified COPD Qualified Code(s): J44.9 - Chronic obstructive pulmonary disease, unspecified (8) DVT prophylaxis Current Visit: No Status: Acute Assessment and plan: on Heparin SQ - Subjective Interval history: This is a 62 y/o M with known PMH of COPD, diabetes, GERD, hepatitis, hyperlipidemia, hypertension, osteoporosis, CKD-3 admitted with Gangrene of Left 5th toe. He waas recently Pt had amputation of Left 5th toe with metatarsal today. He is resting comfortably now. Denied ay CP / SOB. Pain tolerable with current medications. No events over night - Constitutional Vitals: Temp Pulse Resp BP Pulse Ox 98.8 F 74 18 126/54 99 09/05/17 06:45 09/05/17 06:45 09/05/17 07:52 09/05/17 06:45 09/05/17 07:52 General appearance: Present: A&O X 3, pleasant, no acute distress, answers questions appropriately - Head Head exam: Present: atraumatic, normal inspection - Neck Neck exam general surgery: Present: supple - Respiratory Respiratory exam: Present: decreased breath sounds. Absent: rales, respiratory distress, rhonchi, wheezes - Cardiovascular Cardiovascular exam: Present: RRR, +S1, +S2. Absent: systolic murmur - GI/Abdominal GI/Abdominal exam: Present: normal bowel sounds, soft. Absent: rebound, rigid, tenderness - Extremities Exam Extremities exam: Present: pedal edema (Mild Left ankle swelling / edema.. Mild erythema over Left foot and around surgical ). Absent: calf tenderness, tenderness - Back Exam Back exam: Absent: CVA tenderness (L), CVA tenderness (R) - Psychiatric Psychiatric exam: Present: normal affect, normal mood Internal Medicine: Result - Labs CBC & Chem 7: 09/05/17 05:21 09/05/17 05:21 Labs: Short CBC 09/05/17 Range/Units 05:21 WBC 11.4 H (4.3-11.1) K/mcL Hgb 8.7 L (12.9-16.9) g/dL Hct 25.7 L (37.5-50.1) % Plt Count 328 (140-400) K/mcL Neutrophils # 7.3 (1.6-8.9) K/mcL BMP 09/05/17 05:21 Sodium 137 Potassium 4.3 Chloride 105 Carbon Dioxide 22 BUN 21 Creatinine 1.65 H Glucose 235 H Calcium 8.6 - ABG Interpretation ABG results: PT/INR, D-dimer PT 11.5 Seconds (9.4-12.1) 09/04/17 03:15 - VTE Documentation of Mechanical Device: Venous foot pump, device Consult Discharge Plan - Plan Referrals: Mark Coe MD [Primary Care Provider] -
[2017-09-05] MEDS: Vancomycin 1,250 MG in D5% in Water 250 ML IVPB SCH (12:40)
[2017-09-05] MEDS ORDERED: Vancomycin 1,250 MG in D5% in Water 250 ML IVPB SCH (13:00)
[2017-09-05] MEDS: *HR* Heparin 5,000 UNIT/ML VIAL SQ SCH ×2 (15:45→21:01)
[2017-09-05] MEDS: Piperacillin/Tazobactam 3.375 GM/200 ML BAG IVPB SCH ×2 (15:45→22:00)
--- NOTE | 2017-09-05 16:13 | Podiatry Progress Note ---
Date of Encounter: 09/05/17 Time of Encounter: 12:30 - Assessment and Plan (1) Diabetic peripheral neuropathy Current Visit: No Status: Chronic (2) Peripheral vascular disease Current Visit: No Status: Chronic (3) Foot ulcer with fat layer exposed Current Visit: No Status: Acute S/p#1: Incision and drainage to bone for osteomyelitis #2 open amputation of toe #5 with metatarsal #3 debridement left foot with placement of wound VAC by Dr. Pace on 09/04/17. Wound Vac will be changed today due to pooled blood beneath tegaderm. Small black simplace wound vac sponge connected to 125 mmhg continuous suction. Vascular consulted and will plan for angiogram as an outpatient. Dr. Pace will re-evaluate patient wound in AM for further surgical intervention this admission. f/u pending wound cultures Qualifiers: Laterality: left Qualified Code(s): L97.522 - Non-pressure chronic ulcer of other part of left foot with fat layer exposed Subjective Interval history: Patient is s/p #1: Incision and drainage to bone for osteomyelitis #2 open amputation of toe #5 with metatarsal #3 debridement left foot with placement of wound VAC by Dr. Pace on 09/04/17. Patient is lying in bed with wound vac intact to left foot. Patient denies any pain currently. No c/o of fever, chills, or calf pain. Objective - Vital Signs Vital Signs: Vital Signs Temp Pulse Resp BP Pulse Ox 09/05/17 15:55 18 98 09/05/17 11:37 18 97 09/05/17 10:44 98.5 F 79 18 129/64 97 09/05/17 07:52 18 99 09/05/17 03:49 100.7 F H 69 19 120/50 98 09/04/17 23:43 99.8 F H 72 18 121/65 97 09/04/17 20:09 19 98 09/04/17 19:41 100.0 F H 72 20 123/56 98 09/04/17 16:58 16 99 Intake and Output 09/05/17 09/05/17 09/05/17 07:59 15:59 23:59 Output Total 575 / 575 325 / 325 Balance -575 / -575 -325 / -325 Output: Urine 575 / 575 325 / 325 Other: Blood Glucose* 224 183 - Exam Exam: General appearance: alert awake oriented X 3. Calm and pleasant, no acute distress.. Vascular: No evidence of cyanosis, pallor or rubor, Edema graded at 1+/4, Skin Temperature warm, No calf pain with manual compression. capillary refill time is sluggish to toe #4 left foot. Postop Exam: S/P Small black wound vac sponge intact to left foot, Minimal edema with light periwound erythema. Moderate amount of bloody drainage observed to dressing. Collection of blood underneath tegaderm to the plantar aspect of the right foot. 25 mls of serosanguineous drainage observed to canister. Fourth toe of the left foot is red warm, CFT is sluggish. - Lab Result Diagrams: 09/05/17 05:21 09/05/17 05:21 Labs: Abnormal lab results WBC 11.4 K/mcL (4.3-11.1) H 09/05/17 05:21 RBC 3.11 M/mcL (4.19-5.50) L 09/05/17 05:21 Hgb 8.7 g/dL (12.9-16.9) L 09/05/17 05:21 Hct 25.7 % (37.5-50.1) L 09/05/17 05:21 MCV 82.6 fL (83.0-100.0) L 09/05/17 05:21 ESR 74 mm/hr (0-10) H 09/04/17 03:15 APTT 25.7 Seconds (26.0-36.0) L 09/04/17 03:15 Creatinine 1.65 mg/dL (0.72-1.25) H 09/05/17 05:21 Est GFR ( Amer) 51 (> 60) L 09/05/17 05:21 Est GFR (Non-Af Amer) 42 (> 60) L 09/05/17 05:21 Glucose 235 mg/dL (70-99) H 09/05/17 05:21 POC Glucose 183 (58-89) H 09/05/17 11:40 Hemoglobin A1c 13.7 % (-5.6) H 09/05/17 05:21 Total Bilirubin < 0.2 mg/dL (0.2-1.2) L 09/04/17 03:15 C-Reactive Protein 285 mg/L (Less than 5) H 09/04/17 03:15 B-Natriuretic Peptide 281 pg/mL (0-100) H 09/04/17 03:15 Albumin 1.6 g/dL (3.5-5.0) L 09/04/17 03:15 Globulin 4.7 g/dL (2.4-3.5) H 09/04/17 03:15 Albumin/Globulin Ratio 0.3 (1.1-2.2) L 09/04/17 03:15 Triglycerides 1025 mg/dL (< 150) H 09/04/17 03:15 HDL Cholesterol 7 mg/dL (40-59) L 09/04/17 03:15 Cholesterol/HDL Ratio 28.1 (0-4.9) H 09/04/17 03:15 Vancomycin Trough 9.8 mcg/mL (10-20) L 09/05/17 11:33 Microbiology, Last 48 Hours 09/04/17 14:40 Wound Culture - Preliminary Left Foot Normal skin sadi. No apparent pathogens isolated. 09/04/17 14:40 Surgical Biopsy Culture - Preliminary Left Foot - VTE Documentation of Mechanical Device: Venous foot pump, device Consult Discharge Plan - Plan Referrals: Mark Coe MD [Primary Care Provider] -
--- NOTE | 2017-09-05 16:39 | Vascular/Endovas Progress Note ---
Date of Encounter: 09/05/17 Time of Encounter: 16:20 - Assessment and plan (1) Atherosclerosis of [place] arteries of extremities with gangrene, left leg Current Visit: Yes Status: Chronic The patient was recently admitted with a gangrenous left foot and required incision and drainage. The patient had ABIs earlier this year which were within normal limits. However, due to his diabetes and gangrenous changes, he may have vessel calcinosis and significant tibial disease. The patient reports that he is feeling better today. His WBC has decreased and he remains afebrile. He will be tentatively scheduled for angiography on 09/11/17. (2) CKD (chronic kidney disease) stage 3, GFR 30-59 ml/min Current Visit: Yes Status: Chronic (3) COPD (chronic obstructive pulmonary disease) Current Visit: Yes Status: Chronic Qualifiers: COPD type: unspecified COPD Qualified Code(s): J44.9 - Chronic obstructive pulmonary disease, unspecified (4) Hypertension Current Visit: Yes Status: Chronic He was counseled regarding atherosclerotic risk factor reduction. Qualifiers: Hypertension type: essential hypertension Qualified Code(s): I10 - Essential (primary) hypertension (5) Hypertriglyceridemia Current Visit: Yes Status: Chronic (6) Microcytic hypochromic anemia Current Visit: Yes Status: Chronic (7) Nicotine dependence with nicotine-induced disorder Current Visit: Yes Status: Chronic He was counseled regarding smoking cessation. Qualifiers: Nicotine product type: cigarettes Qualified Code(s): F17.219 - Nicotine dependence, cigarettes, with unspecified nicotine-induced disorders (8) Obesity (BMI 30.0-34.9) Current Visit: Yes Status: Chronic (9) Poorly controlled diabetes mellitus Current Visit: Yes Status: Chronic - Subjective Interval history: The patient denies fevers overnight. Reports that he generally feels better. Pain adequately controlled. No chills. No chest pain or shortness of breath. Vital Signs, Last 4 Hours Resp Pulse Ox 09/05/17 15:55 18 98 - Physical Examination General: Present: Conversant, No Apparent Distress Cardiac: Present: Reg Rate and Rhythm Lungs: Present: Normal Breath Sounds Neuro: Present: Alert and responsive, No focal deficits noted Vascular: Present: Normal capillary refill Abdomen: Present: Soft Skin: Present: Wound/ulcer(s) (wound vac in place, no odor) - VTE Documentation of Mechanical Device: Venous foot pump, device Results 09/06/17 04:55 09/06/17 04:55 Lab Results, Last 24 hours 09/05/17 09/05/17 05:21 05:21 WBC 11.4 H Hgb 8.7 L Hct 25.7 L Plt Count 328 Sodium 137 Potassium 4.3 Chloride 105 Carbon Dioxide 22 BUN 21 Creatinine 1.65 H Glucose 235 H Calcium 8.6 Magnesium 1.6 Consult Discharge Plan - Plan Referrals: Mark Coe MD [Primary Care Provider] -
[2017-09-05] MEDS: rOPINIRole 1 MG TABLET PO SCH (20:32)
[2017-09-05] MEDS: risperiDONE 0.25 MG TABLET PO SCH (20:32)
[2017-09-05] MEDS: traZODone 50 MG TABLET PO SCH (20:32)
[2017-09-06] MEDS: Albuterol 2.5 MG/3 ML NEBULIZER IH SCH ×5 (03:50→20:14)
[2017-09-06 05:13] LABS: Basophils # 0.1 K/mcL (0.0-0.2); Basophils % 0.6 %; Eosinophils # 0.5 K/mcL (0.0-0.6); Eosinophils % 4.6 %; Hematocrit 24.2 % (37.5-50.1); Immature Granulocytes % 0.9 % (0-4); Lymphocytes # 2.6 K/mcL (0.6-4.6); Lymphocytes % 23.2 %; Mean Corpuscular HGB Conc 33.1 g/dL (31.6-35.5); Mean Corpuscular Hemoglobin 27.4 pg (28.0-33.3); Mean Corpuscular Volume 82.9 fL (83.0-100.0); Mean Platelet Volume 9.3 fL (9.4-12.4); Monocytes % 9.3 %; Neutrophils # 6.8 K/mcL (1.6-8.9); Platelet Count 365 K/mcL (140-400); Red Blood Count 2.92 M/mcL (4.19-5.50); Red Cell Distribution Width 13.1 % (11.5-14.5); Segmented Neutrophils % 61.4 %
[2017-09-06 05:23] LABS: BUN/Creatinine Ratio 11 (6-26); Blood Urea Nitrogen 16 mg/dL (8-26); Calcium 8.2 mg/dL (8.6-10.8); Carbon Dioxide 22 mEq/L (19-29); Chloride 108 mEq/L (98-109); Glucose 119 mg/dL (70-99); Osmolality,Calculated 286 (280-300); Potassium 4.3 mEq/L (3.5-4.5); Sodium 137 mEq/L (136-145); eGFR For African Americans > 60 (> 60); eGFR For Non-African Americans 51 (> 60)
[2017-09-06] MEDS: *HR* Heparin 5,000 UNIT/ML VIAL SQ SCH ×3 (05:54→21:07)
[2017-09-06] MEDS: Piperacillin/Tazobactam 3.375 GM/200 ML BAG IVPB SCH ×2 (05:56→14:37)
[2017-09-06] MEDS: Insulin LISPRO 300 UNITS/3 ML VIAL SQ SCH ×5 (09:29→21:11)
[2017-09-06] MEDS: Nicotine 21 MG PATCH.TD24 TD SCH (09:30)
[2017-09-06] MEDS: hydrOXYzine pamoate 25 MG CAPSULE PO SCH ×2 (09:30→21:07)
[2017-09-06] MEDS: Aspirin Enteric Coated 81 MG Tablet PO SCH (09:31)
[2017-09-06] MEDS: Sennosides 8.6 MG TABLET PO SCH (09:31)
[2017-09-06] MEDS: amLODIPine 5 MG TABLET PO SCH (09:31)
[2017-09-06] MEDS: Thiamine (B-1) 100 MG TABLET PO SCH (09:32)
[2017-09-06] MEDS: levETIRAcetam 250 MG TABLET PO SCH ×2 (09:32→21:07)
[2017-09-06] MEDS: Magnesium Oxide 400 MG TABLET PO SCH ×2 (09:32→21:08)
[2017-09-06] MEDS: Insulin DETEMIR 100 UNIT/ML X5UNITS SQ SCH ×2 (10:48→21:11)
[2017-09-06] MEDS: Budesonide/Formoterol 160/4.5 MDI IH SCH ×2 (11:04→20:14)
[2017-09-06] MEDS ORDERED: Lidocaine -MPF 1% 2 ML VIAL INFILT ONE (12:52)
--- NOTE | 2017-09-06 12:59 | Internal Med Progress Note ---
Date of Encounter: 09/06/17 Time of Encounter: 08:30 - Assessment and plan (1) Gangrene of left foot Current Visit: Yes Status: Acute Assessment and plan: s/p Left foot 5th toe and metatarsal amputation on 09/04/17 May need further debridement Spoke to Dr. Pace, who wanted to wait for vascular studies for further debridement Definitely need at least 2 weeks IV abx Will put a powerglide today So far his wound cx - did not grow anything Blood cx - no growth so far His Rt leg wound from 10/23 and 06/22 grew MSSA, Proteus and Enterococcus faecalis so will cont empirical abx Zosyn and Vanco - renally dosed abx may consider changed to Unasyn + Levaquin when he goes back to [facility] in AM Also consulted ID for further Abx management Vascular surgery consulted - Planning on doing angiogram as an out pt on (2) Cellulitis of left foot Current Visit: Yes Status: Acute Assessment and plan: improving cont abx (3) Acute kidney injury superimposed on chronic kidney disease Current Visit: No Status: Acute Assessment and plan: He does have CKD-3 with last Cr 1.2 @ 12/21 Cr improved.. today @ 1.4 Cont close monitoring avoid nephro toxic meds renally dosed abx (4) Diastolic CHF Current Visit: No Status: Chronic Assessment and plan: euvolemic not in exacerbation Qualifiers: Congestive heart failure chronicity: acute on chronic Qualified Code(s): I50.33 - Acute on chronic diastolic (congestive) heart failure (5) Hypertension Current Visit: No Status: Acute Assessment and plan: stable with current regimen Qualifiers: Hypertension type: essential hypertension Qualified Code(s): I10 - Essential (primary) hypertension (6) Poorly controlled diabetes mellitus Current Visit: Yes Status: Chronic Assessment and plan: His HbA1C - 13.7 BS still fairly controlled Cont Levemir to 30 U BID added meal time regular insulin 10 U TID today cont ISS at medium (7) COPD (chronic obstructive pulmonary disease) Current Visit: Yes Status: Chronic Assessment and plan: stable resumed home INH regimen Qualifiers: COPD type: unspecified COPD Qualified Code(s): J44.9 - Chronic obstructive pulmonary disease, unspecified (8) DVT prophylaxis Current Visit: No Status: Acute Assessment and plan: on Heparin SQ - Subjective Interval history: This is a 62 y/o M with known PMH of COPD, diabetes, GERD, hepatitis, hyperlipidemia, hypertension, osteoporosis, CKD-3 admitted with Gangrene of Left 5th toe. He waas recently Pt had amputation of Left 5th toe with metatarsal today. He is resting comfortably now. Denied ay CP / SOB. Pain tolerable with current medications. No events over night - Constitutional Vitals: Temp Pulse Resp BP Pulse Ox 98.1 F 86 20 134/65 97 09/06/17 11:00 09/06/17 11:00 09/06/17 11:04 09/06/17 11:00 09/06/17 11:04 General appearance: Present: A&O X 3, pleasant, no acute distress, answers questions appropriately - Head Head exam: Present: atraumatic, normal inspection - Neck Neck exam general surgery: Present: supple - Respiratory Respiratory exam: Present: decreased breath sounds. Absent: rales, respiratory distress, rhonchi, wheezes - Cardiovascular Cardiovascular exam: Present: RRR, +S1, +S2. Absent: systolic murmur - GI/Abdominal GI/Abdominal exam: Present: normal bowel sounds, soft. Absent: rebound, rigid, tenderness - Extremities Exam Extremities exam: Absent: calf tenderness, pedal edema, tenderness Additional comments: Mild Left ankle swelling / edema.. improving erythema over Left foot and around surgical - Back Exam Back exam: Absent: CVA tenderness (L), CVA tenderness (R) - Neurological Exam Neurological exam: Present: alert, oriented X3 - Psychiatric Psychiatric exam: Present: normal affect, normal mood Internal Medicine: Result - Labs CBC & Chem 7: 09/06/17 04:55 09/06/17 04:55 Labs: Short CBC 09/06/17 Range/Units 04:55 WBC 11.1 (4.3-11.1) K/mcL Hgb 8.0 L (12.9-16.9) g/dL Hct 24.2 L (37.5-50.1) % Plt Count 365 (140-400) K/mcL Neutrophils # 6.8 (1.6-8.9) K/mcL BMP 09/06/17 04:55 Sodium 137 Potassium 4.3 Chloride 108 Carbon Dioxide 22 BUN 16 Creatinine 1.40 H Glucose 119 H Calcium 8.2 L - ABG Interpretation ABG results: PT/INR, D-dimer PT 11.5 Seconds (9.4-12.1) 09/04/17 03:15 - VTE Documentation of Mechanical Device: Venous foot pump, device Consult Discharge Plan - Plan Referrals: Mark Coe MD [Primary Care Provider] -
--- NOTE | 2017-09-06 13:58 | Infectious Disease Consult ---
Date of Encounter: 09/06/17 Time of Encounter: 13:56 Assessment and Plan (1) Leukocytosis Status: Resolved Assessment and plan: Likely secondary to left foot infection Resolved. Qualifiers: Leukocytosis type: unspecified Qualified Code(s): D72.829 - Elevated white blood cell count, unspecified (2) Osteomyelitis of ankle or foot Status: Acute Assessment and plan: Causative organism unclear, but intra-operative tissue culture gram stain shows GPC x 2, presumptively Staph and Strep. Likely secondary to left foot diabetic foot ulcer. X-ray of the left foot was negative for OM, but intra-operatively, there were noted to be bony changes of the fifth digit and the 5th MT. Podiatry consulted. Status post I & D for OM, amputation of toe and MT #5, debridement of the left foot and wound vac application. Operative noted reviewed. Gross purulence and bony changes noted concerning for OM vs. necrosis. Per podiatry, the patient will likely require additional surgery. Vascular consulted and planning outpatient angiogram. ESR 74, CRP 285 pre-op. Continue Vancomycin IV. Pharmacy to dose. Goal trough ~15. Continue Zosyn 3.375 grams IV Q8H. Await cultures to finalize before de-escalating antibiotics. Wound care and activity restrictions per the podiatry team. Duration of treatment depends on the clinical picture, but likely 4-6 weeks given the extent of the infection. Monitor renal function and for drug toxicity and dose-adjust antibiotics. Consult VAT for EPIV placement. PICC line is contraindicated due to the patient' s history of CKD. (3) Cellulitis of left foot Status: Acute Assessment and plan: Location: Left foot. Causative organism unclear. Continue antibiotics as above. (4) Atherosclerosis of [place] arteries of extremities with gangrene, left leg Status: Chronic Assessment and plan: Vascular Surgery consulted and following. Outpatient angiogram per the Vascular Team. (5) Poorly controlled diabetes mellitus Status: Chronic Assessment and plan: Check HgbA1C. The patient's blood sugars continue to be elevated while here. Recommend aggressive glucose monitoring and control to promote wound healing and prevent re-infection. Management per the primary team. (6) COPD (chronic obstructive pulmonary disease) Status: Chronic Qualifiers: COPD type: unspecified COPD Qualified Code(s): J44.9 - Chronic obstructive pulmonary disease, unspecified (7) CKD (chronic kidney disease) stage 3, GFR 30-59 ml/min Status: Chronic Assessment and plan: Serum creatinine appears at baseline. Continue to trend. Dose-adjust antibiotics. Avoid nephrotoxins as able. Infectious Disease HPI - Data of Consult Patient: new to practice Consult date: 09/06/17 Requesting Physician: Collins Mcmahon MD Primary Care Provider: Mark Coe MD - Consult Narrative Reason for consult: Left foot infection History of present illness: Mr. Regalado is a 62 year old male with a past medical history of arthritis, COPD , diabetes, GERD, hyperlipidemia, chronic kidney disease, anxiety, and depression. The patient was admitted to the hospital September 03 for left foot infection. We are consulted September 06 for antibiotic recommendations regarding left foot osteomyelitis. Sleep, the patient's a 62-year-old male with past medical history as stated above. He states he was recently admitted to [facility] and had undergone a skin survey and they noticed a large ulcer to the lateral aspect of his left foot. He states this was done on Saturday and the last time he checked his feet were is on Saturday and he did not notice any ulcerations at that time. The etiology of the ulceration is unclear. He denies any fevers or chills or rigors. He denies any headache or neck pain. He denied any chest pain , shortness of breath, or cough. He denied any nausea, vomiting, diarrhea, or constipation. He denied any abdominal pain or urinary complaints or appetite changes. He states the ulceration is not painful, but his toe was black and there was a large blisters to the lateral aspect of his foot. He reports of the wrist redness to the left foot as well. He denies knowing about any trauma or stepping on anything that he is aware of. He denies any oral thrush or any other skin lesions. He denies pain in his back or extremities. On arrival to the ER, the patient was afebrile and hemodynamically stable. He did have a mild leukocytosis. His creatinine was elevated, but this appears to be close to his baseline. He had a left foot x-ray that was negative for ostomy colitis, but did show soft tissue swelling over the fifth MTP joint. Blood cultures were obtained 2 sets. He was started on IV antibiotics and admitted to the hospital for further evaluation. Since admission, the patient's white blood cell count has normalized. He was evaluated by podiatry and was taken to the operating room on October 04 for I& D frosty myelitis, and dictation of toe #5 with metatarsal, debridement of the left foot, and wound VAC application. Tissue cultures from surgery are growing gram-positive cocci 2, presumptively staph and strep. The patient did spike a low-grade fever postoperatively, but has otherwise been afebrile. Currently, he is on Vanco and Zosyn. He was evaluated by vascular surgery and was recommended to have an outpatient angiogram. We've asked to evaluate and make further recommendations. CC: Collins Mcmahon MD Past Med Surg Social Fam HX - Past Medical History Attestation: Yes The following information was validated with the patient. Source: patient, old records reviewed, nursing notes reviewed Medical history: arthritis, COPD, diabetes, GERD, hepatitis, hyperlipidemia, hypertension, osteoporosis, renal disease, syncope Psychiatric history: anxiety, depression - Past Surgical History Surgical History: cataract, LE stent(s), orthopedic, other - Social History Smoking Status: Current every day smoker Packs per day: 1 Smokeless Tobacco Status: No Alcohol use: none Drug use: none Occupational status: unemployed Current living situation: [facility] Activity Level: Independent ambulation Recent Out of Country Travel Within the Last 8 Weeks: No Exposure or Possible Exposure to Illness During Travel: No - Family History Mother History Unknown: Yes Living Status: Hx Family Cardiac Disorders: Yes (htn) Hx Family Respiratory Disorders: No Hx Family Cancer: Yes Hx Family Endocrine Disorder: Yes (dm) Father Living Status: Infectious Disease-CN:Meds Aspirin [Adult Low Dose Aspirin EC] 81 mg PO DAILY 12/11/15 [History] Budesonide/Formoterol 160/4.5 [Symbicort 160/4.5] 2 puff IH BIDR 12/11/15 [ History] Citalopram Hydrobromide [Celexa] 20 mg PO DAILY 12/11/15 [History] Enalapril Maleate [Vasotec] 10 mg PO QPM 12/11/15 [History] Ergocalciferol (VITAMIN D2) [Vitamin D2 (50,000 UNIT)] 50,000 unit PO MÁRQUEZ [History] Omeprazole [PriLOSEC] 20 mg PO BID 12/11/15 [History] SitaGLIPtin [Januvia] 100 mg PO DAILY 12/11/15 [History] Trazodone HCl [TraZODone] 100 mg PO HS 12/11/15 [History] hydrOXYzine HCl [Hydroxyzine HCl] 50 mg PO BID 12/11/15 [History] amLODIPine [Norvasc] 5 mg PO DAILY #30 tablet 08/08/16 [Rx] Cyanocobalamin (B-12) [Vitamin B12] 1,000 mcg PO DAILY #90 tablet 11/28/16 [Rx] Ferrous Sulfate 325 mg PO BIDWM #180 tablet 11/28/16 [Rx] Insulin DETEMIR [Levemir] 20 unit SQ DAILY #5 vial 11/28/16 [Rx] Lactobacillus [Culturelle] 1 each PO BID #60 cap.sprink 11/28/16 [Rx] Magnesium Oxide [Mag-Ox] 400 mg PO BID #60 tablet 11/28/16 [Rx] Nicotine Patch [Nicoderm] 21 mg TD DAILY #30 patch.td24 11/28/16 [Rx] Polyethylene Glycol 3350 [MiraLAX] 17 gm PO DAILY #30 powd.pack 11/28/16 [Rx] Sennosides [Senna] 8.6 mg PO DAILY #06 tablet 11/28/16 [Rx] Tamsulosin [Flomax] 0.4 mg PO DAILY #30 capsule 11/28/16 [Rx] Thiamine HCl 250 mg PO DAILY #90 tablet 11/28/16 [Rx] Albuterol Neb [Proventil Neb] 2.5 mg IH Q4HR 12/02/16 [History] Furosemide [Lasix] 40 mg PO DAILY 12/02/16 [History] Carvedilol [Coreg] 25 mg PO BIDWM #30 tablet 01/01/17 [Rx] Cyclobenzaprine [Flexeril] 10 mg PO BID PRN 09/03/17 [History] Insulin ASPART [Novolog Flexpen] 0 unit SQ TID 09/03/17 [History] Insulin Glargine,Hum.rec.anlog [Basaglar Kwikpen U-100] 0 unit SQ BID 09/03/17 [ History] LevETIRAcetam [Keppra] 1,000 mg PO BID 09/03/17 [History] Ropinirole HCl [Requip] 2 mg PO HS 09/03/17 [History] Rosuvastatin [Crestor] 20 mg PO DAILY 09/03/17 [History] risperiDONE [RisperDAL] 0.25 mg PO HS 09/03/17 [History] 3 Allergy/AdvReac Type Severity Reaction Status Date / Time acetaminophen Allergy Hives Verified 12/11/15 11:46 [From Darvocet-N] ibuprofen Allergy Hives Verified 12/11/15 11:46 propoxyphene Allergy Hives Verified 12/11/15 11:46 [From Darvocet-N] tramadol [From Ultram] Allergy Hives Verified 12/11/15 11:46 All systems: reviewed and no additional remarkable complaints except as stated Exam - Constitutional Vitals: Temp Pulse Resp BP Pulse Ox 98.1 F 86 20 134/65 97 09/06/17 11:00 09/06/17 11:00 09/06/17 11:04 09/06/17 11:00 09/06/17 11:04 General appearance: average body habitus, cooperative, no acute distress - Head Head exam: Present: atraumatic, normal inspection, normocephalic - Eye Eye exam: Present: EOMI, normal appearance, PERRL Pupils: Present: normal accommodation - ENT ENT exam: Present: mucous membranes moist - Neck Neck exam: Present: normal inspection - Respiratory Respiratory exam: Present: CTAB. Absent: rales, respiratory distress, rhonchi, wheezes - Cardiovascular Cardiovascular exam: Present: RRR, +S1, +S2 - GI/Abdominal GI/Abdominal exam: Present: normal bowel sounds, soft. Absent: distended, tenderness - Extremities Exam Extremities exam: Absent: joint swelling, pedal edema, tenderness Additional comments: Surgical site noted to the lateral aspect of the left foot with wound VAC dressing C/D/I. Erythema noted to the plantar aspect of the foot and to the dorsal aspect of the mid and forefoot. No tenderness noted with palpation. Minimal maceration of the skin surrounding the plantar aspect of the surgical wound overlying the MTP joint. Scant drainage noted in the wound VAC canister. - Neurological Exam Neurological exam: Present: alert, oriented X3, no focal deficits - Psychiatric Psychiatric exam: Present: normal affect, normal mood - Skin Skin exam: Present: dry, intact, normal color, warm Infectious Disease CN: Results - Labs CBC & Chem 7: 09/06/17 04:55 09/06/17 04:55 Cultures: Cultures 09/04/17 14:40 Surgical Biopsy Culture - Preliminary Left Foot Gram Positive Cocci Gram Positive Cocci#2 09/04/17 14:40 Wound Culture - Final Left Foot Normal skin sadi. No apparent pathogens isolated. - VTE Documentation of Mechanical Device: Venous foot pump, device Consult Discharge Plan - Plan Referrals: Mark Coe MD [Primary Care Provider] -
[2017-09-06] MEDS ORDERED: Vancomycin 1,500 MG in D5% in Water 250 ML IVPB SCH (14:00)
--- NOTE | 2017-09-06 16:13 | Vascular/Endovas Progress Note ---
Date of Encounter: 09/06/17 Time of Encounter: 15:45 - Assessment and plan (1) Atherosclerosis of [place] arteries of extremities with gangrene, left leg Current Visit: Yes Status: Chronic The patient underwent incision and drainage of a gangrenous left foot abscess. His leukocytosis has resolved. He remains afebrile. He reports no signifcant pain. His prior ABIs were within normal limits, but may be pseudoelevated due to tibial vessel calcinosis. Due to his clinical presentation, angiography is warranted. He has been scheduled for angiography on 09/11/17. He may be discharged from a vascular surgery perspective. (2) CKD (chronic kidney disease) stage 3, GFR 30-59 ml/min Current Visit: Yes Status: Chronic Creatinine improved. (3) COPD (chronic obstructive pulmonary disease) Current Visit: Yes Status: Chronic Qualifiers: COPD type: unspecified COPD Qualified Code(s): J44.9 - Chronic obstructive pulmonary disease, unspecified (4) Hypertension Current Visit: Yes Status: Chronic Qualifiers: Hypertension type: essential hypertension Qualified Code(s): I10 - Essential (primary) hypertension (5) Hypertriglyceridemia Current Visit: Yes Status: Chronic (6) Microcytic hypochromic anemia Current Visit: Yes Status: Chronic Patient remains anemic with Hgb at 8.0. He is hemodynamically stable without evidence of ongoing blood loss. (7) Nicotine dependence with nicotine-induced disorder Current Visit: Yes Status: Chronic He was counseled again regarding smoking cessation and atherosclerotic risk factor reduction. Qualifiers: Nicotine product type: cigarettes Qualified Code(s): F17.219 - Nicotine dependence, cigarettes, with unspecified nicotine-induced disorders (8) Obesity (BMI 30.0-34.9) Current Visit: Yes Status: Chronic (9) Poorly controlled diabetes mellitus Current Visit: Yes Status: Chronic - Subjective Interval history: The patient states that he continues to feel better. He denies fevers or chills. Denies signficant foot pain. No chest pain or shortness of breath. Vital Signs, Last 4 Hours Resp Pulse Ox 09/06/17 15:07 20 99 - Physical Examination General: Present: Conversant Cardiac: Present: Reg Rate and Rhythm Lungs: Present: Normal Breath Sounds Neuro: Present: Alert and responsive, No focal deficits noted, Motor nerves grossly intact, Sensory nerves grossly intact Vascular: Present: Normal capillary refill, Other (wound vac in place on left foot, no erythema at ankle, no odor). Absent: Cyanosis, Edema - VTE Documentation of Mechanical Device: Venous foot pump, device Results 09/06/17 04:55 09/06/17 04:55 Lab Results, Last 24 hours 09/06/17 09/06/17 04:55 04:55 WBC 11.1 Hgb 8.0 L Hct 24.2 L Plt Count 365 Sodium 137 Potassium 4.3 Chloride 108 Carbon Dioxide 22 BUN 16 Creatinine 1.40 H Glucose 119 H Calcium 8.2 L Consult Discharge Plan - Plan Referrals: Mark Coe MD [Primary Care Provider] -
[2017-09-06] MEDS ORDERED: Aminoglycoside Consult 1 EACH MC ONE (16:49)
[2017-09-06] MEDS: traZODone 50 MG TABLET PO SCH (21:08)
[2017-09-06] MEDS: risperiDONE 0.25 MG TABLET PO SCH (21:08)
[2017-09-06] MEDS: rOPINIRole 1 MG TABLET PO SCH (21:08)
[2017-09-07] MEDS: Albuterol 2.5 MG/3 ML NEBULIZER IH SCH ×7 (00:09→23:49)
[2017-09-07] MEDS: Piperacillin/Tazobactam 3.375 GM/200 ML BAG IVPB SCH (01:24)
[2017-09-07 05:56] LABS: BUN/Creatinine Ratio 10 (6-26); Blood Urea Nitrogen 15 mg/dL (8-26); Calcium 8.2 mg/dL (8.6-10.8); Carbon Dioxide 19 mEq/L (19-29); Chloride 108 mEq/L (98-109); Glucose 146 mg/dL (70-99); Osmolality,Calculated 287 (280-300); Sodium 137 mEq/L (136-145); eGFR For African Americans > 60 (> 60); eGFR For Non-African Americans 50 (> 60)
[2017-09-07 05:58] LABS: Basophils # 0.1 K/mcL (0.0-0.2); Basophils % 0.8 %; Eosinophils # 0.5 K/mcL (0.0-0.6); Eosinophils % 4.3 %; Hematocrit 23.5 % (37.5-50.1); Hemoglobin 7.8 g/dL (12.9-16.9); Immature Granulocytes % 1.4 % (0-4); Lymphocytes # 2.3 K/mcL (0.6-4.6); Mean Corpuscular HGB Conc 33.2 g/dL (31.6-35.5); Mean Corpuscular Hemoglobin 27.7 pg (28.0-33.3); Mean Corpuscular Volume 83.3 fL (83.0-100.0); Mean Platelet Volume 9.1 fL (9.4-12.4); Monocytes # 0.9 K/mcL (0.0-1.3); Monocytes % 8.1 %; Neutrophils # 7.2 K/mcL (1.6-8.9); Nucleated Red Blood Cells 0.2 /100 WBC (0); Platelet Count 449 K/mcL (140-400); Red Blood Count 2.82 M/mcL (4.19-5.50); Segmented Neutrophils % 64.4 %
[2017-09-07] MEDS: *HR* Heparin 5,000 UNIT/ML VIAL SQ SCH ×3 (06:22→22:03)
[2017-09-07] MEDS: Insulin LISPRO 300 UNITS/3 ML VIAL SQ SCH ×7 (08:27→22:05)
[2017-09-07] MEDS: Nicotine 21 MG PATCH.TD24 TD SCH (08:30)
[2017-09-07] MEDS: Thiamine (B-1) 100 MG TABLET PO SCH (08:31)
[2017-09-07] MEDS: amLODIPine 5 MG TABLET PO SCH (08:32)
[2017-09-07] MEDS: Aspirin Enteric Coated 81 MG Tablet PO SCH (08:32)
[2017-09-07] MEDS: hydrOXYzine pamoate 25 MG CAPSULE PO SCH ×2 (08:32→22:04)
[2017-09-07] MEDS: levETIRAcetam 250 MG TABLET PO SCH ×2 (08:32→22:04)
[2017-09-07] MEDS: Sennosides 8.6 MG TABLET PO SCH (08:32)
[2017-09-07] MEDS: Magnesium Oxide 400 MG TABLET PO SCH ×2 (08:32→22:04)
[2017-09-07] MEDS: Insulin DETEMIR 100 UNIT/ML X5UNITS SQ SCH ×2 (08:39→22:04)
[2017-09-07] MEDS: Budesonide/Formoterol 160/4.5 MDI IH SCH ×2 (09:27→20:29)
[2017-09-07] MEDS ORDERED: Piperacillin/Tazobactam 3.375 GM/200 ML BAG IVPB SCH (10:00)
--- NOTE | 2017-09-07 10:02 | Internal Med Progress Note ---
Date of Encounter: 09/07/17 Time of Encounter: 08:20 - Assessment and plan (1) Gangrene of left foot Current Visit: Yes Status: Acute Assessment and plan: s/p Left foot 5th toe and metatarsal amputation on 09/04/17 May need further debridement Spoke to Dr. Pace, who wanted to wait for vascular studies for further debridement Definitely need at least 2 weeks IV abx His wound cx growing - Strep and staph epidermidis - both of them are susceptible to Vancomycin so cont Vanco and d/c Zosyn Blood cx - no growth so far ID is on board PICC Line placed in Vascular surgery consulted - Planning on doing angiogram as an out pt on (2) Cellulitis of left foot Current Visit: Yes Status: Acute Assessment and plan: improving cont abx (3) Acute kidney injury superimposed on chronic kidney disease Current Visit: No Status: Acute Assessment and plan: He does have CKD-3 with last Cr 1.2 @ 12/21 Cr improved.. today @ 1.4 Cont close monitoring avoid nephro toxic meds renally dosed abx (4) Diastolic CHF Current Visit: No Status: Chronic Assessment and plan: euvolemic not in exacerbation Qualifiers: Congestive heart failure chronicity: acute on chronic Qualified Code(s): I50.33 - Acute on chronic diastolic (congestive) heart failure (5) Hypertension Current Visit: No Status: Acute Assessment and plan: stable with current regimen Qualifiers: Hypertension type: essential hypertension Qualified Code(s): I10 - Essential (primary) hypertension (6) Poorly controlled diabetes mellitus Current Visit: Yes Status: Chronic Assessment and plan: His HbA1C - 13.7 BS still fairly controlled Inc Levemir to 35 U BID Inc meal time regular insulin 13 U TID today cont ISS at medium (7) COPD (chronic obstructive pulmonary disease) Current Visit: Yes Status: Chronic Assessment and plan: stable resumed home INH regimen Qualifiers: COPD type: unspecified COPD Qualified Code(s): J44.9 - Chronic obstructive pulmonary disease, unspecified (8) DVT prophylaxis Current Visit: No Status: Acute Assessment and plan: on Heparin SQ - Subjective Interval history: This is a 62 y/o M with known PMH of COPD, diabetes, GERD, hepatitis, hyperlipidemia, hypertension, osteoporosis, CKD-3 admitted with Gangrene of Left 5th toe. He waas recently Pt had amputation of Left 5th toe with metatarsal today. He is resting comfortably now. Denied ay CP / SOB. Pain tolerable with current medications. No events over night - Constitutional Vitals: Temp Pulse Resp BP Pulse Ox 98.2 F 67 18 143/59 95 09/07/17 07:25 09/07/17 07:25 09/07/17 07:25 09/07/17 07:25 09/07/17 07:25 General appearance: Present: A&O X 3, pleasant, no acute distress, answers questions appropriately - Head Head exam: Present: atraumatic, normal inspection - Neck Neck exam general surgery: Present: supple - Respiratory Respiratory exam: Present: decreased breath sounds. Absent: rales, respiratory distress, rhonchi, wheezes - Cardiovascular Cardiovascular exam: Present: RRR, +S1, +S2. Absent: systolic murmur - GI/Abdominal GI/Abdominal exam: Present: normal bowel sounds, soft. Absent: rebound, rigid, tenderness - Extremities Exam Extremities exam: Absent: calf tenderness, pedal edema, tenderness Additional comments: improving erythema and swelling in Left ankle, foot - Back Exam Back exam: Absent: CVA tenderness (L), CVA tenderness (R) - Neurological Exam Neurological exam: Present: alert, oriented X3 - Psychiatric Psychiatric exam: Present: normal affect, normal mood Internal Medicine: Result - Labs CBC & Chem 7: 09/07/17 05:15 09/07/17 05:15 Labs: Short CBC 09/07/17 Range/Units 05:15 WBC 11.1 (4.3-11.1) K/mcL Hgb 7.8 L (12.9-16.9) g/dL Hct 23.5 L (37.5-50.1) % Plt Count 449 H (140-400) K/mcL Neutrophils # 7.2 (1.6-8.9) K/mcL BMP 09/07/17 05:15 Sodium 137 Potassium 4.0 Chloride 108 Carbon Dioxide 19 BUN 15 Creatinine 1.43 H Glucose 146 H Calcium 8.2 L - ABG Interpretation ABG results: PT/INR, D-dimer PT 11.5 Seconds (9.4-12.1) 09/04/17 03:15 - VTE Documentation of Mechanical Device: Venous foot pump, device Consult Discharge Plan - Plan Referrals: Mark Coe MD [Primary Care Provider] -
[2017-09-07] MEDS: rOPINIRole 1 MG TABLET PO SCH (22:03)
[2017-09-07] MEDS: traZODone 50 MG TABLET PO SCH (22:04)
[2017-09-07] MEDS: risperiDONE 0.25 MG TABLET PO SCH (22:04)
[2017-09-08] MEDS: Albuterol 2.5 MG/3 ML NEBULIZER IH SCH ×3 (04:13→16:17)
[2017-09-08] MEDS: *HR* Heparin 5,000 UNIT/ML VIAL SQ SCH ×2 (06:33→12:26)
[2017-09-08] MEDS: Insulin LISPRO 300 UNITS/3 ML VIAL SQ SCH ×4 (08:11→12:25)
[2017-09-08] MEDS: Insulin DETEMIR 100 UNIT/ML X5UNITS SQ SCH (08:13)
[2017-09-08] MEDS: levETIRAcetam 250 MG TABLET PO SCH (08:14)
[2017-09-08] MEDS: Nicotine 21 MG PATCH.TD24 TD SCH (08:14)
[2017-09-08] MEDS: hydrOXYzine pamoate 25 MG CAPSULE PO SCH (08:14)
[2017-09-08] MEDS: Magnesium Oxide 400 MG TABLET PO SCH (08:14)
[2017-09-08] MEDS: Aspirin Enteric Coated 81 MG Tablet PO SCH (08:14)
[2017-09-08] MEDS: amLODIPine 5 MG TABLET PO SCH (08:14)
[2017-09-08] MEDS: Thiamine (B-1) 100 MG TABLET PO SCH (08:14)
[2017-09-08] MEDS: Sennosides 8.6 MG TABLET PO SCH (08:15)
[2017-09-08 10:30] VITALS: BP 139/76
[2017-09-08] MEDS: Budesonide/Formoterol 160/4.5 MDI IH SCH (10:57)
--- NOTE | 2017-09-08 14:53 | Discharge Summary ---
Date of Encounter: 09/08/17 Time of Encounter: 14:47 - Discharge Diagnosis (1) Gangrene of left foot Priority: Primary Status: Acute (2) Cellulitis of left foot Priority: Primary Status: Acute (3) Acute kidney injury superimposed on chronic kidney disease Priority: Primary Status: Acute (4) Diastolic CHF Priority: Secondary Status: Chronic Qualifiers: Congestive heart failure chronicity: acute on chronic Qualified Code(s): I50.33 - Acute on chronic diastolic (congestive) heart failure (5) Poorly controlled diabetes mellitus Priority: Secondary Status: Chronic (6) Hypertension Priority: Secondary Status: Acute Qualifiers: Hypertension type: essential hypertension Qualified Code(s): I10 - Essential (primary) hypertension (7) COPD (chronic obstructive pulmonary disease) Priority: Secondary Status: Chronic Qualifiers: COPD type: unspecified COPD Qualified Code(s): J44.9 - Chronic obstructive pulmonary disease, unspecified (8) DVT prophylaxis Priority: Secondary Status: Acute - Discharge Medications Prescriptions: Vancomycin HCl in Dextrose 5 % [Vancomycin 1.5 Gram/250 ml-D5w] 1.5 gm IV DAILY 23 Days plast..bag Home Medications: Aspirin [Adult Low Dose Aspirin EC] 81 mg PO DAILY 12/11/15 [History] Budesonide/Formoterol 160/4.5 [Symbicort 160/4.5] 2 puff IH BIDR 12/11/15 [ History] Citalopram Hydrobromide [Celexa] 20 mg PO DAILY 12/11/15 [History] Enalapril Maleate [Vasotec] 10 mg PO QPM 12/11/15 [History] Ergocalciferol (VITAMIN D2) [Vitamin D2 (50,000 UNIT)] 50,000 unit PO MÁRQUEZ [History] Omeprazole [PriLOSEC] 20 mg PO BID 12/11/15 [History] Trazodone HCl [TraZODone] 100 mg PO HS 12/11/15 [History] hydrOXYzine HCl [Hydroxyzine HCl] 50 mg PO BID 12/11/15 [History] amLODIPine [Norvasc] 5 mg PO DAILY #30 tablet 08/08/16 [Rx] Cyanocobalamin (B-12) [Vitamin B12] 1,000 mcg PO DAILY #90 tablet 11/28/16 [Rx] Ferrous Sulfate 325 mg PO BIDWM #180 tablet 11/28/16 [Rx] Lactobacillus [Culturelle] 1 each PO BID #60 cap.sprink 11/28/16 [Rx] Magnesium Oxide [Mag-Ox] 400 mg PO BID #60 tablet 11/28/16 [Rx] Nicotine Patch [Nicoderm] 21 mg TD DAILY #30 patch.td24 11/28/16 [Rx] Polyethylene Glycol 3350 [MiraLAX] 17 gm PO DAILY #30 powd.pack 11/28/16 [Rx] Sennosides [Senna] 8.6 mg PO DAILY #06 tablet 11/28/16 [Rx] Tamsulosin [Flomax] 0.4 mg PO DAILY #30 capsule 11/28/16 [Rx] Thiamine HCl 250 mg PO DAILY #90 tablet 11/28/16 [Rx] Albuterol Neb [Proventil Neb] 2.5 mg IH Q4HR 12/02/16 [History] Furosemide [Lasix] 40 mg PO DAILY 12/02/16 [History] Carvedilol [Coreg] 25 mg PO BIDWM #30 tablet 01/01/17 [Rx] Cyclobenzaprine [Flexeril] 10 mg PO BID PRN 09/03/17 [History] LevETIRAcetam [Keppra] 1,000 mg PO BID 09/03/17 [History] Ropinirole HCl [Requip] 2 mg PO HS 09/03/17 [History] Rosuvastatin [Crestor] 20 mg PO DAILY 09/03/17 [History] risperiDONE [RisperDAL] 0.25 mg PO HS 09/03/17 [History] Insulin ASPART [Novolog Flexpen] 13 unit SQ TID #0 09/08/17 [Rx] Insulin DETEMIR [Levemir] 35 unit SQ BID #5 vial 09/08/17 [Rx] Insulin LISPRO [HumaLOG] 0 units SQ HS vial 09/08/17 [Rx] Insulin LISPRO [HumaLOG] 0 units SQ TIDAC vial 09/08/17 [Rx] SitaGLIPtin [Januvia] 50 mg PO DAILY #0 09/08/17 [Rx] Vancomycin HCl in Dextrose 5 % [Vancomycin 1.5 Gram/250 ml-D5w] 1.5 gm IV DAILY 23 Days plast..bag 09/08/17 [Rx] Allergies/Adverse Reactions: 3 Allergy/AdvReac Type Severity Reaction Status Date / Time acetaminophen Allergy Hives Verified 12/11/15 11:46 [From Darvocet-N] ibuprofen Allergy Hives Verified 12/11/15 11:46 propoxyphene Allergy Hives Verified 12/11/15 11:46 [From Darvocet-N] tramadol [From Ultram] Allergy Hives Verified 12/11/15 11:46 Date of admission: 09/03/17 14:04 Primary care physician: Mark Coe MD Consults: 09/03/17 14:14 Consult to Podiatry [CONS] Stat Consulting Provider: Podiatry [facility] Reason for Consult: Dr. Pace for Osteomyelitis / cellulitis left foot Call Completed: Yes 09/04/17 16:06 Consult to Pressing Machine Operator [CONS] Routine Reason for SW Consult: discharge planning 09/06/17 12:52 Consult to Infectious Diseases [CONS] Routine Consulting Provider: Infectious Disease Keesha Reason for Consult: Left foot infection s/p amputation of 5th toe.. Need intermediate IV abx Call Completed: Yes Consult to Invasive Line Access Team [CONS] Routine Reason for Consult: Picc Line Insertion Line Type: PICC - Patient Status Disposition: Transfer SNF Condition: Good Overall status at discharge: patient is back to baseline - Discharge Instructions Follow Up With: Mark Coe MD [Primary Care Provider] - Ernesto Pace DPM [Partnered Physician] - Elis Moffett VP SOFTWARE [Advanced Practice Nurse] - Additional Instructions: Need to go for Q weekly CBC, BMP,ESR and CRP ..and follow with LACHO Moffett for further vanco dosing Need to f/u with Building Specialist in 1week Need to f/u with Dr. Proctor on 09/11/17 for Vascular studies angiogram - Diet and Activity Activity: as per physical therapy, increase activity as tolerated Diet: low salt diet Hospital course: This is a 62 y/o M with known PMH of COPD, diabetes, GERD, hepatitis, hyperlipidemia, hypertension, osteoporosis, CKD-3 admitted with Gangrene of Left 5th toe. Pt was admitted in the hospital and started him on empirical abx with Zosyn and Vancomycin. He was seen by Building Specialist Dr. Pace, who did s/p Left foot 5th toe and metatarsal amputation on 09/04/17. Post op he has been doing well, his Left ankle and foot swelling seems to be improving. As per Dr. Pace he need further staged surgery / debridement, however he is concerned about vascular circulation. We consulted Vascular surgeon Dr. Proctor who recommend to do out pt vascular studies angiogram on 09/11/17. His wound cx growing Streptococci and Staph epidermidis susceptible to Vancomycin. So will d/ c him back to [facility]CF with IV Vancomycin total 4 weeks course and recommend to f/u with ID and Building Specialist as an out pt. His wound vac bag need to change M/W/F - Time Spent with Patient Total time spent providing and/or coordinating discharge services: - Constitutional Vitals: Temp Pulse Resp BP Pulse Ox 98.7 F 74 16 139/76 97 09/08/17 10:30 09/08/17 10:30 09/08/17 10:30 09/08/17 10:30 09/08/17 10:30 General appearance: Present: A&O X 3, pleasant, no acute distress, answers questions appropriately - Head Head exam: Present: atraumatic, normal inspection - Neck Neck exam general surgery: Present: supple - Respiratory Respiratory exam: Present: decreased breath sounds. Absent: rales, respiratory distress, rhonchi, wheezes - Cardiovascular Cardiovascular exam: Present: RRR, +S1, +S2. Absent: tachycardia - Extremities Exam Extremities exam: Present: pedal edema (improving edema in Left ankle). Absent : calf tenderness, tenderness Additional comments: Improving swelling and erythema in Left ankle and foot. Wound vac + - Neurological Exam Neurological exam: Present: alert, oriented X3 - VTE Documentation of Mechanical Device: Venous foot pump, device
--- NOTE | 2017-09-08 15:13 | Physician Discharge Referral ---
ExtendedCare Referral Info Transfer To: ECF Provider in Charge after Transfer: PCP Institutional Level of Care: Skilled - Diagnosis (1) Gangrene of left foot Status: Acute (2) Cellulitis of left foot Status: Acute (3) Acute kidney injury superimposed on chronic kidney disease Status: Acute (4) Diastolic CHF Status: Chronic (5) Poorly controlled diabetes mellitus Status: Chronic (6) Hypertension Status: Acute (7) COPD (chronic obstructive pulmonary disease) Status: Chronic (8) DVT prophylaxis Status: Acute - Transfer Medications Prescriptions: Vancomycin HCl in Dextrose 5 % [Vancomycin 1.5 Gram/250 ml-D5w] 1.5 gm IV DAILY 23 Days plast..bag Home Medications: Aspirin [Adult Low Dose Aspirin EC] 81 mg PO DAILY 12/11/15 [History] Budesonide/Formoterol 160/4.5 [Symbicort 160/4.5] 2 puff IH BIDR 12/11/15 [ History] Citalopram Hydrobromide [Celexa] 20 mg PO DAILY 12/11/15 [History] Enalapril Maleate [Vasotec] 10 mg PO QPM 12/11/15 [History] Ergocalciferol (VITAMIN D2) [Vitamin D2 (50,000 UNIT)] 50,000 unit PO MÁRQUEZ [History] Omeprazole [PriLOSEC] 20 mg PO BID 12/11/15 [History] Trazodone HCl [TraZODone] 100 mg PO HS 12/11/15 [History] hydrOXYzine HCl [Hydroxyzine HCl] 50 mg PO BID 12/11/15 [History] amLODIPine [Norvasc] 5 mg PO DAILY #30 tablet 08/08/16 [Rx] Cyanocobalamin (B-12) [Vitamin B12] 1,000 mcg PO DAILY #90 tablet 11/28/16 [Rx] Ferrous Sulfate 325 mg PO BIDWM #180 tablet 11/28/16 [Rx] Lactobacillus [Culturelle] 1 each PO BID #60 cap.sprink 11/28/16 [Rx] Magnesium Oxide [Mag-Ox] 400 mg PO BID #60 tablet 11/28/16 [Rx] Nicotine Patch [Nicoderm] 21 mg TD DAILY #30 patch.td24 11/28/16 [Rx] Polyethylene Glycol 3350 [MiraLAX] 17 gm PO DAILY #30 powd.pack 11/28/16 [Rx] Sennosides [Senna] 8.6 mg PO DAILY #06 tablet 11/28/16 [Rx] Tamsulosin [Flomax] 0.4 mg PO DAILY #30 capsule 11/28/16 [Rx] Thiamine HCl 250 mg PO DAILY #90 tablet 11/28/16 [Rx] Albuterol Neb [Proventil Neb] 2.5 mg IH Q4HR 12/02/16 [History] Furosemide [Lasix] 40 mg PO DAILY 12/02/16 [History] Carvedilol [Coreg] 25 mg PO BIDWM #30 tablet 01/01/17 [Rx] Cyclobenzaprine [Flexeril] 10 mg PO BID PRN 09/03/17 [History] LevETIRAcetam [Keppra] 1,000 mg PO BID 09/03/17 [History] Ropinirole HCl [Requip] 2 mg PO HS 09/03/17 [History] Rosuvastatin [Crestor] 20 mg PO DAILY 09/03/17 [History] risperiDONE [RisperDAL] 0.25 mg PO HS 09/03/17 [History] Insulin ASPART [Novolog Flexpen] 13 unit SQ TID #0 09/08/17 [Rx] Insulin DETEMIR [Levemir] 35 unit SQ BID #5 vial 09/08/17 [Rx] Insulin LISPRO [HumaLOG] 0 units SQ HS vial 09/08/17 [Rx] Insulin LISPRO [HumaLOG] 0 units SQ TIDAC vial 09/08/17 [Rx] SitaGLIPtin [Januvia] 50 mg PO DAILY #0 09/08/17 [Rx] Vancomycin HCl in Dextrose 5 % [Vancomycin 1.5 Gram/250 ml-D5w] 1.5 gm IV DAILY 23 Days plast..bag 09/08/17 [Rx] Allergies/Adverse Reactions: 3 Allergy/AdvReac Type Severity Reaction Status Date / Time acetaminophen Allergy Hives Verified 12/11/15 11:46 [From Darvocet-N] ibuprofen Allergy Hives Verified 12/11/15 11:46 propoxyphene Allergy Hives Verified 12/11/15 11:46 [From Darvocet-N] tramadol [From Ultram] Allergy Hives Verified 12/11/15 11:46 - Respiratory Orders Smoking Cessation: Smoking cessation has been advised. For more information, call the [place] Tobacco Quit Line at 8-455-KGAI-NOW. - Treatments List/Other: Need to go for Q weekly CBC, BMP, ESR and CRP CERTIFICATION: I certify that the transfer of the above named patient to an Extended Care Facility is necessary for the continuing treatment of the diagnosis listed. The above information is true and accurate reflection of patient's current condition. Confidential - Redisclosure prohibited without a patient's written consent.
== END 2017-09-08 16:50 | DRG 314 ==
LOC: EMEROO 11:33 → 3ANU 11:33 → 3NENU 15:32
PROVIDERS: ADMIT Internal Medicine; ATTEND Family Medicine

== ENCOUNTER 2018-08-19 15:26 | Inpatient (IN) ==
--- NOTE | 2018-08-19 15:30 | Emergency Department Note ---
Disposition Clinical Impression: Type 2 diabetes mellitus with hyperosmolar nonketotic hyperglycemia, COPD exacerbation Disposition: Admitted As Inpatient Condition: Fair General Adult HPI - General Stated complaint: Flank Pain Time Seen by Provider: 08/19/18 15:29 Nursing Notes Reviewed: Yes Vital Signs Reviewed: Yes - History of Present Illness HPI Narrative: 62-year-old male presents emergency department with concern for cough, shortness of breath, bilateral flank pain. Patient states that he was at the [facility] today and he became very weak. Stated that he almost collapsed due to his legs giving out. Denies any loss of consciousness. Reports that he becomes unsteady on his feet quite often. States that he uses a walker. Reports that he was recently discharged from [facility]. States that he is a type II diabetic who uses insulin. Reports that he has not taken his insulin over the past couple days due to not having his insulin or needles. Reports that he has not eaten in the last couple days as well as he was scared that his glucose would become elevated. Denies any nausea, vomiting. Denies any dysuria, urinary frequent or urgency. - Related Data Home Medications Medication Instructions Recorded Confirmed RX: Aspirin [Adult Low Dose 81 mg PO DAILY 12/11/15 09/25/17 Aspirin EC] RX: Budesonide/Formoterol 160/4.5 2 puff IH BIDR 12/11/15 09/25/17 [Symbicort 160/4.5] RX: Citalopram Hydrobromide 20 mg PO DAILY 12/11/15 09/25/17 [Celexa] RX: Enalapril Maleate [Vasotec] 10 mg PO QPM 12/11/15 09/25/17 RX: Ergocalciferol (VITAMIN D2) 50,000 unit PO MÁRQUEZ 12/11/15 09/25/17 [Vitamin D2 (50,000 UNIT)] RX: Omeprazole [PriLOSEC] 20 mg PO BID 12/11/15 09/25/17 RX: Trazodone HCl [TraZODone] 100 mg PO HS 12/11/15 09/25/17 RX: hydrOXYzine HCl [Hydroxyzine 50 mg PO BID 12/11/15 09/25/17 HCl] RX: Albuterol Neb [Proventil Neb] 2.5 mg IH Q4HR PRN 12/02/16 09/25/17 RX: Furosemide [Lasix] 40 mg PO DAILY 12/02/16 09/25/17 RX: Cyclobenzaprine [Flexeril] 10 mg PO BID PRN 09/03/17 09/25/17 RX: LevETIRAcetam [Keppra] 1,000 mg PO BID 09/03/17 09/25/17 RX: Ropinirole HCl [Requip] 2 mg PO HS 09/03/17 09/25/17 RX: Rosuvastatin [Crestor] 20 mg PO HS 09/03/17 09/25/17 RX: risperiDONE [RisperDAL] 0.25 mg PO HS 09/03/17 09/25/17 Insulin Glargine,Hum.rec.anlog 55 unit SQ Q12H 09/19/17 09/25/17 [Lantus Solostar] RX: Carvedilol [Coreg] 25 mg PO HS 09/19/17 09/25/17 RX: Insulin ASPART [Novolog 2 - 12 unit SQ ACHS 09/19/17 09/25/17 Flexpen] RX: Polyethylene Glycol 3350 17 gm PO DAILY PRN 09/19/17 09/25/17 [MiraLAX] RX: SitaGLIPtin [Januvia] 100 mg PO DAILY 09/19/17 09/25/17 Vancomycin/0.9 % Sod Chloride 1 gm IV Q12H 09/20/17 09/25/17 [Vanco 1 Gram/250 ml-0.9% NaCl] Previous Rx's Medication Instructions Recorded RX: amLODIPine [Norvasc] 5 mg PO DAILY #30 tablet 08/08/16 RX: Cyanocobalamin (B-12) [Vitamin 1,000 mcg PO DAILY #90 tablet 11/28/16 B12] RX: Ferrous Sulfate 325 mg PO BIDWM #180 tablet 11/28/16 RX: Lactobacillus [Culturelle] 1 each PO BID #60 cap.sprink 11/28/16 RX: Magnesium Oxide [Mag-Ox] 400 mg PO BID #60 tablet 11/28/16 RX: Sennosides [Senna] 8.6 mg PO DAILY #06 tablet 11/28/16 RX: Tamsulosin [Flomax] 0.4 mg PO DAILY #30 capsule 11/28/16 RX: Thiamine HCl 250 mg PO DAILY #90 tablet 11/28/16 RX: Lidocaine Patch [Lidoderm 5% 1 each TP DAILY PRN #3 adh..patch 05/26/18 patch] Allergies Allergy/AdvReac Type Severity Reaction Status Date / Time acetaminophen Allergy Hives Verified 09/19/17 12:11 [From Darvocet-N] ibuprofen Allergy Hives Verified 09/19/17 12:11 propoxyphene Allergy Hives Verified 09/19/17 12:11 [From Darvocet-N] tramadol [From Ultram] Allergy Hives Verified 09/19/17 12:11 All systems ED: reviewed and negative except as stated. Review of Systems: As Per HPI Constitutional: Denies: fever Cardiovascular: Denies: chest pain Respiratory: Reports: cough, dyspnea Gastrointestinal: Reports: abdominal pain. Denies: nausea, vomiting Genitourinary: Denies: urgency, dysuria, frequency Integumentary: Denies: rash Past Medical History - Past Medical History Medical history: Reports: arthritis, COPD, dementia, diabetes, GERD, hepatitis, hyperlipidemia, hypertension, osteoporosis, renal disease, syncope Surgical history: Reports: cataract, LE stent(s), orthopedic, other Psychiatric history: Reports: anxiety, depression, panic disorder - Social History Smoking Status: Current every day smoker Smokeless Tobacco Status: No Alcohol use: Reports: none Drug use: Reports: none Physical Exam - General Limitations: no limitations General appearance: alert - Head Head exam: normocephalic - Eye Eye exam: Present: EOMI. Absent: scleral icterus - ENT ENT exam: mucous membranes moist - Neck Neck exam: Present: trachea midline - Chest Chest inspection: Present: symmetric chest wall rise - Respiratory Respiratory exam: Present: wheezes - Cardiovascular Cardiovascular exam: Present: regular rate, normal rhythm, normal heart sounds - Abdominal Exam Abdominal exam: Present: soft, tenderness, distention (Mild). Absent: guarding, rebound, rigidity - Extremities Exam Extremities exam: Present: normal capillary refill - Back Exam Back exam: Present: full ROM - Neurological Exam Neurological exam: Present: alert - Psychiatric Psychiatric exam: Present: normal affect, normal mood - Skin Skin exam: Present: warm, dry, intact Course Vital Signs Temperature 98.9 F 08/19/18 15:31 Pulse Rate 60 08/19/18 15:31 Respiratory Rate 20 08/19/18 15:31 Blood Pressure 118/74 08/19/18 15:31 O2 Sat by Pulse Oximetry 100 08/19/18 15:31 Temperature 98.9 F 08/19/18 15:31 Pulse Rate 60 08/19/18 15:31 Respiratory Rate 20 08/19/18 15:31 Blood Pressure 118/74 08/19/18 15:31 O2 Sat by Pulse Oximetry 100 08/19/18 15:31 Oxygen Delivery Oxygen Delivery Room Air Medical Decision Making - MDM Narrative Medical decision making narrative: 62-year-old male presents emergency department with concern for cough, shortness of breath, wheezes on lung exam with known history of COPD. We started 3 DuoNeb's as well as steroids for the patient. Stated that his symptoms improved significantly after administration of the DuoNeb's. A chest x-ray did not reveal any evidence of pneumonia. Did not administer any antimicrobials at this time. Patient is not hypoxic. He is afebrile. CT scan of the abdomen and pelvis secondary to bilateral flank pain not reveal any evidence of intra-abdominal abnormality. Most likely, at this time, suspect that the abdominal pain secondary to the coughing that he is experiencing. Patient elevated lactic acid of 4.5. Did not have a source infections time. However, headache acid may be elevated secondary to patient not having any oral intake of last couple days. Reports that he stopped taking his insulin as he did not have the prescription. Glucose was 736. Patient and her anion gap 12. Not acidotic. Beta hydroxy butyric acid is negative. Patient was given a liter of fluids here in the emergency department as well as started on 1 25 mL/h of maintenance fluid for management of HHS. Patient was given 10 units of insulin. Patient to be admitted to the hospital for further management of his hyperglycemia by Dr. Salazar. There appears to be a social aspect as well as he was just discharged from [facility] due to inability to care for himself and he is shown obvious signs that he may not be capable of taking care of his own medical needs. Vital Signs Temperature 98.9 F 08/19/18 15:31 Pulse Rate 60 08/19/18 15:31 Respiratory Rate 20 08/19/18 15:31 Blood Pressure 118/74 08/19/18 15:31 O2 Sat by Pulse Oximetry 100 08/19/18 15:31 Temperature 98.9 F 11/13/18 15:31 Pulse Rate 60 08/19/18 15:31 Respiratory Rate 20 08/19/18 15:31 Blood Pressure 118/74 08/19/18 15:31 O2 Sat by Pulse Oximetry 100 08/19/18 15:31 Oxygen Delivery Oxygen Delivery Room Air Chest X-Ray 08/19/18 15:43 IMPRESSION: 1. Study mildly limited, as detailed above. 2. No acute cardiopulmonary disease. D/ / Yosvany Echavarria MD / Yosvany Echavarria MD Interpreting Provider: Yosvany Echavarria MD Abdomen/Pelvis CT 08/19/18 15:55 IMPRESSION: No evidence of obstructive uropathy. No acute process is appreciated. D/ / 08/19/2018 17:12:23 Bin Evans MD / adonis Interpreting Provider: Bin Evans MD - Lab Data Result diagrams: 08/19/18 Unknown 08/19/18 Unknown Lab Results 08/19/18 08/19/18 08/19/18 Range/Units 16:00 16:00 16:10 WBC (4.3-11.1) K/mcL RBC (4.19-5.50) M/mcL Hgb (12.9-16.9) g/dL Hct (37.5-50.1) % MCV (83.0-100.0) fL MCH (28.0-33.3) pg MCHC (31.6-35.5) g/dL RDW (11.5-14.5) % Plt Count (140-400) K/mcL MPV (9.4-12.4) fL Immature Gran % (0-4) % Seg Neutrophils % % Lymphocytes % % Monocytes % % Eosinophils % % Basophils % % Neutrophils # (1.6-8.9) K/mcL Lymphocytes # (0.6-4.6) K/mcL Monocytes # (0.0-1.3) K/mcL Eosinophils # (0.0-0.6) K/mcL Basophils # (0.0-0.2) K/mcL PT 10.4 (9.4-12.1) Seconds INR 0.9 VBG pH (7.32-7.42) pH Units VBG pCO2 (41-51) mmHg VBG pO2 (25-50) mmHg VBG HCO3 (21-27) mEq/L Sodium (136-145) mEq/L Potassium (3.5-5.1) mEq/L Chloride (98-107) mEq/L Carbon Dioxide (23-29) mEq/L BUN (8-23) mg/dL Creatinine (0.70-1.30) mg/dL Est GFR ( Amer) (> 60) Est GFR (Non-Af Amer) (> 60) BUN/Creatinine Ratio (6-26) Glucose (70-105) mg/dL Calculated Osmolality (280-300) Lactic Acid 4.5 H* (0.5-2.2) mmol/L Calcium (8.6-10.3) mg/dL Total Bilirubin (0.3-1.0) mg/dL AST (13-39) Units/L ALT (7-52) Units/L Alkaline Phosphatase (34-104) Units/L Ammonia 45 (16-53) mcmol/L Troponin I (< 0.04) ng/mL B-Natriuretic Peptide (Less than 100) pg/mL Serum Total Protein (6.4-8.9) g/dL Albumin (3.5-5.7) g/dL Globulin (2.4-3.5) g/dL Albumin/Globulin Ratio (1.1-2.2) Lipase (11-82) Units/L Beta-Hydroxybutyric Acd (0.02-0.27) mmol/L 08/19/18 08/19/18 08/19/18 Range/Units 16:45 17:18 Unknown WBC (4.3-11.1) K/mcL RBC (4.19-5.50) M/mcL Hgb (12.9-16.9) g/dL Hct (37.5-50.1) % MCV (83.0-100.0) fL MCH (28.0-33.3) pg MCHC (31.6-35.5) g/dL RDW (11.5-14.5) % Plt Count (140-400) K/mcL MPV (9.4-12.4) fL Immature Gran % (0-4) % Seg Neutrophils % % Lymphocytes % % Monocytes % % Eosinophils % % Basophils % % Neutrophils # (1.6-8.9) K/mcL Lymphocytes # (0.6-4.6) K/mcL Monocytes # (0.0-1.3) K/mcL Eosinophils # (0.0-0.6) K/mcL Basophils # (0.0-0.2) K/mcL PT (9.4-12.1) Seconds INR VBG pH 7.37 (7.32-7.42) pH Units VBG pCO2 42 (41-51) mmHg VBG pO2 168 H (25-50) mmHg VBG HCO3 24 (21-27) mEq/L Sodium 128 L (136-145) mEq/L Potassium 4.2 (3.5-5.1) mEq/L Chloride 93 L (98-107) mEq/L Carbon Dioxide 23 (23-29) mEq/L BUN 45 H (8-23) mg/dL Creatinine 2.76 H (0.70-1.30) mg/dL Est GFR ( Amer) 28 L (> 60) Est GFR (Non-Af Amer) 23 L (> 60) BUN/Creatinine Ratio 16 (6-26) Glucose 736 H* (70-105) mg/dL Calculated Osmolality 313 H (280-300) Lactic Acid (0.5-2.2) mmol/L Calcium 9.1 (8.6-10.3) mg/dL Total Bilirubin 0.5 (0.3-1.0) mg/dL AST 10 L (13-39) Units/L ALT 14 (7-52) Units/L Alkaline Phosphatase 128 H (34-104) Units/L Ammonia (16-53) mcmol/L Troponin I < 0.03 (< 0.04) ng/mL B-Natriuretic Peptide (Less than 100) pg/mL Serum Total Protein 6.7 (6.4-8.9) g/dL Albumin 3.3 L (3.5-5.7) g/dL Globulin 3.4 (2.4-3.5) g/dL Albumin/Globulin Ratio 1.0 L (1.1-2.2) Lipase 72 (11-82) Units/L Beta-Hydroxybutyric Acd 0.11 (0.02-0.27) mmol/L 08/19/18 08/19/18 Range/Units Unknown Unknown WBC 9.8 (4.3-11.1) K/mcL RBC 4.17 L (4.19-5.50) M/mcL Hgb 12.5 L (12.9-16.9) g/dL Hct 34.2 L (37.5-50.1) % MCV 82.0 L (83.0-100.0) fL MCH 30.0 (28.0-33.3) pg MCHC 36.5 H (31.6-35.5) g/dL RDW 12.7 (11.5-14.5) % Plt Count 271 (140-400) K/mcL MPV 10.4 (9.4-12.4) fL Immature Gran % 0.4 (0-4) % Seg Neutrophils % 65.1 % Lymphocytes % 22.0 % Monocytes % 6.6 % Eosinophils % 5.0 % Basophils % 0.9 % Neutrophils # 6.4 (1.6-8.9) K/mcL Lymphocytes # 2.2 (0.6-4.6) K/mcL Monocytes # 0.6 (0.0-1.3) K/mcL Eosinophils # 0.5 (0.0-0.6) K/mcL Basophils # 0.1 (0.0-0.2) K/mcL PT (9.4-12.1) Seconds INR VBG pH (7.32-7.42) pH Units VBG pCO2 (41-51) mmHg VBG pO2 (25-50) mmHg VBG HCO3 (21-27) mEq/L Sodium (136-145) mEq/L Potassium (3.5-5.1) mEq/L Chloride (98-107) mEq/L Carbon Dioxide (23-29) mEq/L BUN (8-23) mg/dL Creatinine (0.70-1.30) mg/dL Est GFR ( Amer) (> 60) Est GFR (Non-Af Amer) (> 60) BUN/Creatinine Ratio (6-26) Glucose (70-105) mg/dL Calculated Osmolality (280-300) Lactic Acid (0.5-2.2) mmol/L Calcium (8.6-10.3) mg/dL Total Bilirubin (0.3-1.0) mg/dL AST (13-39) Units/L ALT (7-52) Units/L Alkaline Phosphatase (34-104) Units/L Ammonia (16-53) mcmol/L Troponin I (< 0.04) ng/mL B-Natriuretic Peptide 36 (Less than 100) pg/mL Serum Total Protein (6.4-8.9) g/dL Albumin (3.5-5.7) g/dL Globulin (2.4-3.5) g/dL Albumin/Globulin Ratio (1.1-2.2) Lipase (11-82) Units/L Beta-Hydroxybutyric Acd (0.02-0.27) mmol/L - EKG Data EKG #1 EKG attestation: Yes I reviewed and interpreted this EKG. EKG results narrative: Temp: 31 Heart rate 60 bpm, ME interval 190 ms, QRS duration 92 ms, QT 422 ms, normal axis. Sinus rhythm ventricular rate 60 bpm. No evidence of any ischemic ST changes. Right bundle branch block same as previous EKG. Attestation Statement - Attestation Attestation: Resident Attestation: I examined this patient and my medical decision making was reviewed with the Resident Physician. I agree with the documented findings, disposition and treatment plan as described except to the extent set forth below. We independently had [id number] contact with the patient. Resident physician Dr. Harman Patient presents today for evaluation of bilateral flank pain and anterior abdominal pain. Symptoms have been going on for several days and worsened nature. Patient's pain worsened muscular movements. Patient's pain was significantly exacerbated by trying to pull the patient up in bed. Patient does have associated wheezing bilaterally. Patient does have significant medical history and is likely related to his lack of medication use over the last several days. Patient will undergo further evaluation with blood work as well as CT imaging. Abdomen with tenderness the flanks as well as the anterior abdomen without focal findings or guarding or rebound. No CVA tenderness.
[2018-08-19] MEDS ORDERED: *HR* FentaNYL (PF) 100 MCG/2 ML VIAL IVP ONE (15:50)
[2018-08-19] MEDS ORDERED: Ipratropium/Albuterol Neb 3 ML IH ONE (15:52)
[2018-08-19] MEDS ORDERED: Isovue-370 500 ML INFUS..BTL IV ONE (15:53)
[2018-08-19] MEDS ORDERED: methylPREDNISolone 125 MG/2 ML VIAL IVP ONE (15:53)
[2018-08-19 16:30] LABS: Basophils # 0.1 K/mcL (0.0-0.2); Basophils % 0.9 %; Eosinophils # 0.5 K/mcL (0.0-0.6); Hematocrit 34.2 % (37.5-50.1); Hemoglobin 12.5 g/dL (12.9-16.9); Immature Granulocytes % 0.4 % (0-4); Lymphocytes # 2.2 K/mcL (0.6-4.6); Mean Corpuscular HGB Conc 36.5 g/dL (31.6-35.5); Mean Platelet Volume 10.4 fL (9.4-12.4); Monocytes # 0.6 K/mcL (0.0-1.3); Monocytes % 6.6 %; Neutrophils # 6.4 K/mcL (1.6-8.9); Platelet Count 271 K/mcL (140-400); Red Blood Count 4.17 M/mcL (4.19-5.50); Red Cell Distribution Width 12.7 % (11.5-14.5); Segmented Neutrophils % 65.1 %
[2018-08-19 16:35] LABS: INR 0.9; Prothrombin Time 10.4 Seconds (9.4-12.1)
[2018-08-19] MEDS ORDERED: 0.9 % Sodium Chloride 1,000 ML IVC ONE (16:35)
[2018-08-19 16:36] LABS: Alanine Aminotransferase 14 Units/L (7-52); Albumin 3.3 g/dL (3.5-5.7); Alkaline Phosphatase 128 Units/L (34-104); Aspartate Amino Transferase 10 Units/L (13-39); BUN/Creatinine Ratio 16 (6-26); Bilirubin,Total 0.5 mg/dL (0.3-1.0); Blood Urea Nitrogen 45 mg/dL (8-23); Calcium 9.1 mg/dL (8.6-10.3); Carbon Dioxide 23 mEq/L (23-29); Chloride 93 mEq/L (98-107); Globulin 3.4 g/dL (2.4-3.5); Glucose 736 mg/dL (70-105); Lipase 72 Units/L (11-82); Osmolality,Calculated 313 (280-300); Potassium 4.2 mEq/L (3.5-5.1); Sodium 128 mEq/L (136-145); Total Protein 6.7 g/dL (6.4-8.9); eGFR For Non-African Americans 23 (> 60)
[2018-08-19] MEDS ORDERED: Insulin Human Regular 10 UNIT in 0.9 % Sodium Chloride 10 ML IV ONE (16:38)
[2018-08-19 17:03] LABS: Troponin I < 0.03 ng/mL (< 0.04)
[2018-08-19] MEDS ORDERED: 0.9 % Sodium Chloride 1,000 ML IVC STA (17:20)
[2018-08-19 17:27] LABS: VBG HCO3 24 mEq/L (21-27); VBG PCO2 42 mmHg (41-51); VBG PH 7.37 pH Units (7.32-7.42); VBG PO2 168 mmHg (25-50)
[2018-08-19] MEDS ORDERED: *HR* Dextrose 50 % in Water (Syg) 50 ML SYRINGE IVP PRN (17:51)
[2018-08-19] MEDS ORDERED: D5% in 0.45% NACL w KCl 20 MEQ/1,000 ML MLS IVC PRN (17:51)
[2018-08-19] MEDS ORDERED: D5% in 0.45% NACL 1,000 ML IVC PRN (17:51)
[2018-08-19] MEDS ORDERED: OXYCODONE Oral CONC 10 MG/0.5 ML ORAL.SYG SL PRN ×2 (17:55)
[2018-08-19] MEDS ORDERED: Naloxone 0.4 MG/ML INJ IVP PRN ×2 (17:55)
[2018-08-19] MEDS ORDERED: Ondansetron 4 MG/2 ML VIAL IVP PRN (17:55)
[2018-08-19] MEDS ORDERED: Insulin Human Regular 100 UNIT in 0.9 % Sodium Chloride 100 ML IVC SCH (18:00)
--- NOTE | 2018-08-19 18:09 | Internal Med History&Physical ---
Date of Encounter: 08/20/18 Time of Encounter: 18:07 Internal Medicine - H&P: HPI Chief complaint: flank pain Admitted From: Home Plans for Post Hospital Care: Home History of present illness: Mr. Regalado is a 62 year old male with extensive vascular medical history, active tobacco abuse with 1-1/2 packs per day, diastolic CHF, coronary artery disease, peripheral vascular disease, seizure disorder, type II diabetic on insulin, chronic kidney disease stage III, hypertension and hyperlipidemia who presented to the emergency room complaining of bilateral flank pain. The patient stated he was recently discharged from [facility] 3 days ago, however he has not been using insulin because he has run out of insulin and the dose and he was not discharged with any from the nursing facility. He also reports poor oral intake, change in color of his urine, and bilateral flank pain. He has no prior history of kidney stones, he has no nausea vomiting or diarrhea. He has no hematuria, he denies chest pain but reports worsening cough with shortness of breath. He denies any neurologic symptoms. The patient denies fever or chills. Denies dysuria or urgency. In the emergency room, patient was found to be wheezing diffusely and improved with DuoNeb's and steroids, workup showed was greater than 700, lactic acidosis 4.5, tachycardic occipital thyroid carcinoma was negative, venous blood gas showed a normal pH, the patient was not acidotic. CBC showed no leukocytosis, hemoconcentration with hemoglobin of 12.5 from his baseline hemoglobin of 8, acute on chronic kidney injury, imaging of the abdomen and pelvis was negative for acute findings, no stones, chest x-ray was clear with no acute cardiopul monary processes. Lipase was within normal limit, liver function tests and ammonia was within normal limit. Coagulation panel unremarkable. The patient will be admitted as inpatient for management of hyper osmolar hyperglycemic nonketotic state, acute on chronic kidney injury, lactic acidosis, and COPD exacerbation. He has no advance directives and is full code. Past Med Surg Social Fam HX - Past Medical History Medical history: arthritis, COPD, dementia, diabetes, GERD, hepatitis, hyperlipidemia, hypertension, osteoporosis, renal disease, syncope Additional medical history: CHRONIC KIDNEY DISEASE, SMOKER, HEPATITIS, SYNCOPE, OSTEOPOROSIS Psychiatric history: anxiety, depression, panic disorder - Past Surgical History Surgical History: cataract, LE stent(s), orthopedic, other Additional surgical history: CATARACT, LLE FRACTURE, LLE STENT, HERNIA REPAIR - Social History Smoking Status: Current every day smoker Smokeless Tobacco Status: No Alcohol use: none Drug use: none - Family History Mother Family Member Ethnicity: Non- Living Status: Hx Family Cardiac Disorders: Yes Hx Family Respiratory Disorders: Yes Hx Family Cancer: Yes Hx Family GI Disorders: No Hx Family Endocrine Disorder: Yes Hx Family Neuromuscular Disorders: No Hx Family Neurologic Disorders: Yes Hx Family HEENT Disorders: No Hx Family Autoimmune Disorders: No Father Living Status: Internal Medicine - H&P: Meds Aspirin [Adult Low Dose Aspirin EC] 81 mg PO DAILY 12/11/15 [History] Budesonide/Formoterol 160/4.5 [Symbicort 160/4.5] 2 puff IH BIDR 12/11/15 [History] Citalopram Hydrobromide [Celexa] 20 mg PO DAILY 12/11/15 [History] Enalapril Maleate [Vasotec] 10 mg PO QPM 12/11/15 [History] Ergocalciferol (VITAMIN D2) [Vitamin D2 (50,000 UNIT)] 50,000 unit PO MÁRQUEZ 12/11/15 [History] Omeprazole [PriLOSEC] 20 mg PO BID 12/11/15 [History] Trazodone HCl [TraZODone] 100 mg PO HS 12/11/15 [History] hydrOXYzine HCl [Hydroxyzine HCl] 50 mg PO BID 12/11/15 [History] amLODIPine [Norvasc] 5 mg PO DAILY #30 tablet 08/08/16 [Rx] Cyanocobalamin (B-12) [Vitamin B12] 1,000 mcg PO DAILY #90 tablet 11/28/16 [Rx] Ferrous Sulfate 325 mg PO BIDWM #180 tablet 11/28/16 [Rx] Lactobacillus [Culturelle] 1 each PO BID #60 cap.sprink 11/28/16 [Rx] Magnesium Oxide [Mag-Ox] 400 mg PO BID #60 tablet 11/28/16 [Rx] Sennosides [Senna] 8.6 mg PO DAILY #06 tablet 11/28/16 [Rx] Tamsulosin [Flomax] 0.4 mg PO DAILY #30 capsule 11/28/16 [Rx] Thiamine HCl 250 mg PO DAILY #90 tablet 11/28/16 [Rx] Albuterol Neb [Proventil Neb] 2.5 mg IH Q4HR PRN 12/02/16 [History] Furosemide [Lasix] 40 mg PO DAILY 12/02/16 [History] Cyclobenzaprine [Flexeril] 10 mg PO BID PRN 09/03/17 [History] LevETIRAcetam [Keppra] 1,000 mg PO BID 09/03/17 [History] Ropinirole HCl [Requip] 2 mg PO HS 09/03/17 [History] Rosuvastatin [Crestor] 20 mg PO HS 09/03/17 [History] risperiDONE [RisperDAL] 0.25 mg PO HS 09/03/17 [History] Carvedilol [Coreg] 25 mg PO HS 09/19/17 [History] Insulin ASPART [Novolog Flexpen] 2 - 12 unit SQ ACHS 09/19/17 [History] Insulin Glargine,Hum.rec.anlog [Lantus Solostar] 55 unit SQ Q12H 09/19/17 [History] Polyethylene Glycol 3350 [MiraLAX] 17 gm PO DAILY PRN 09/19/17 [History] SitaGLIPtin [Januvia] 100 mg PO DAILY 09/19/17 [History] Vancomycin/0.9 % Sod Chloride [Vanco 1 Gram/250 ml-0.9% NaCl] 1 gm IV Q12H 09/20/17 [History] Lidocaine Patch [Lidoderm 5% patch] 1 each TP DAILY PRN #3 adh..patch 05/26/18 [Rx] Allergy/AdvReac Type Severity Reaction Status Date / Time acetaminophen Allergy Hives Verified 09/19/17 12:11 [From Darvocet-N] ibuprofen Allergy Hives Verified 09/19/17 12:11 propoxyphene Allergy Hives Verified 09/19/17 12:11 [From Darvocet-N] tramadol [From Ultram] Allergy Hives Verified 09/19/17 12:11 All Systems PM: A 10-system review of systems was performed and is negative for pertinent findings except as documented above in the HPI. - Constitutional Constitutional: as per HPI - EENT Eyes: as per HPI Ears: as per HPI Nose, mouth and throat: as per HPI - Cardiovascular Cardiovascular ROS IM: as per HPI - Respiratory Respiratory: as per HPI - Gastrointestinal Gastrointestinal: as per HPI - Musculoskeletal Musculoskeletal ROS IM: as per HPI - Integumentary Integumentary IM: as per HPI - Neurological Neurological ROS: as per HPI - Hematologic/Lymphatic Hematologic/Lymphatic: as per HPI - Constitutional Vitals: Temp Pulse Resp BP Pulse Ox 98.9 F 60 20 118/74 100 08/19/18 15:31 08/19/18 15:31 08/19/18 15:31 08/19/18 15:31 08/19/18 15:31 General appearance: Present: cooperative, A&O X 3, pleasant, no acute distress Exam: Vital signs noted and stable Gen: NAD, Speaks coherently, obese HEENT: Dry oral mucosa, anicteric, not pale Neuro: AAOX3, no facial paralysis, CN grossly intact, no speech deficits, no motor or sensory deficits, gait is not tested Chest: Equal movement,no chest wall tenderness Respiratory: Diffuse bilateral wheezing expiratory,, no rhonchi and no crackles. Heart: S1, S2 only, RRR, no m/g/r Abdomen: Soft, not tender, moves with respiration, BS present in al quadrants, n o palpably enlarged organs, no CVA tenderness Extremities: Normal inspection of joints, no pedal edema, pulses present and equal bilaterally. Bilateral multiple toe amputations, no active problems tam betic foot ulcers Skin: No rash Psych: Appropriate affect Internal Med - H&P Results - Labs CBC & Chem 7: 08/20/18 04:03 08/20/18 04:03 Labs: Short CBC 08/19/18 08/19/18 08/19/18 Range/Units 16:00 16:00 16:10 WBC (4.3-11.1) K/mcL RBC (4.19-5.50) M/mcL Hgb (12.9-16.9) g/dL Hct (37.5-50.1) % MCV (83.0-100.0) fL MCH (28.0-33.3) pg MCHC (31.6-35.5) g/dL RDW (11.5-14.5) % Plt Count (140-400) K/mcL MPV (9.4-12.4) fL Immature Gran % (0-4) % Seg Neutrophils % % Lymphocytes % % Monocytes % % Eosinophils % % Basophils % % Neutrophils # (1.6-8.9) K/mcL Lymphocytes # (0.6-4.6) K/mcL Monocytes # (0.0-1.3) K/mcL Eosinophils # (0.0-0.6) K/mcL Basophils # (0.0-0.2) K/mcL PT 10.4 (9.4-12.1) Seconds INR 0.9 VBG pH (7.32-7.42) pH Units VBG pCO2 (41-51) mmHg VBG pO2 (25-50) mmHg VBG HCO3 (21-27) mEq/L Sodium (136-145) mEq/L Potassium (3.5-5.1) mEq/L Chloride (98-107) mEq/L Carbon Dioxide (23-29) mEq/L BUN (8-23) mg/dL Creatinine (0.70-1.30) mg/dL Est GFR ( Amer) (> 60) Est GFR (Non-Af Amer) (> 60) BUN/Creatinine Ratio (6-26) Glucose (70-105) mg/dL Calculated Osmolality (280-300) Lactic Acid 4.5 H* (0.5-2.2) mmol/L Calcium (8.6-10.3) mg/dL Total Bilirubin (0.3-1.0) mg/dL AST (13-39) Units/L ALT (7-52) Units/L Alkaline Phosphatase (34-104) Units/L Ammonia 45 (16-53) mcmol/L Troponin I (< 0.04) ng/mL B-Natriuretic Peptide (Less than 100) pg/mL Serum Total Protein (6.4-8.9) g/dL Albumin (3.5-5.7) g/dL Globulin (2.4-3.5) g/dL Albumin/Globulin Ratio (1.1-2.2) Lipase (11-82) Units/L Beta-Hydroxybutyric Acd (0.02-0.27) mmol/L 08/19/18 08/19/18 08/19/18 Range/Units 16:45 17:18 Unknown WBC (4.3-11.1) K/mcL RBC (4.19-5.50) M/mcL Hgb (12.9-16.9) g/dL Hct (37.5-50.1) % MCV (83.0-100.0) fL MCH (28.0-33.3) pg MCHC (31.6-35.5) g/dL RDW (11.5-14.5) % Plt Count (140-400) K/mcL MPV (9.4-12.4) fL Immature Gran % (0-4) % Seg Neutrophils % % Lymphocytes % % Monocytes % % Eosinophils % % Basophils % % Neutrophils # (1.6-8.9) K/mcL Lymphocytes # (0.6-4.6) K/mcL Monocytes # (0.0-1.3) K/mcL Eosinophils # (0.0-0.6) K/mcL Basophils # (0.0-0.2) K/mcL PT (9.4-12.1) Seconds INR VBG pH 7.37 (7.32-7.42) pH Units VBG pCO2 42 (41-51) mmHg VBG pO2 168 H (25-50) mmHg VBG HCO3 24 (21-27) mEq/L Sodium 128 L (136-145) mEq/L Potassium 4.2 (3.5-5.1) mEq/L Chloride 93 L (98-107) mEq/L Carbon Dioxide 23 (23-29) mEq/L BUN 45 H (8-23) mg/dL Creatinine 2.76 H (0.70-1.30) mg/dL Est GFR ( Amer) 28 L (> 60) Est GFR (Non-Af Amer) 23 L (> 60) BUN/Creatinine Ratio 16 (6-26) Glucose 736 H* (70-105) mg/dL Calculated Osmolality 313 H (280-300) Lactic Acid (0.5-2.2) mmol/L Calcium 9.1 (8.6-10.3) mg/dL Total Bilirubin 0.5 (0.3-1.0) mg/dL AST 10 L (13-39) Units/L ALT 14 (7-52) Units/L Alkaline Phosphatase 128 H (34-104) Units/L Ammonia (16-53) mcmol/L Troponin I < 0.03 (< 0.04) ng/mL B-Natriuretic Peptide (Less than 100) pg/mL Serum Total Protein 6.7 (6.4-8.9) g/dL Albumin 3.3 L (3.5-5.7) g/dL Globulin 3.4 (2.4-3.5) g/dL Albumin/Globulin Ratio 1.0 L (1.1-2.2) Lipase 72 (11-82) Units/L Beta-Hydroxybutyric Acd 0.11 (0.02-0.27) mmol/L 08/19/18 08/19/18 Range/Units Unknown Unknown WBC 9.8 (4.3-11.1) K/mcL RBC 4.17 L (4.19-5.50) M/mcL Hgb 12.5 L (12.9-16.9) g/dL Hct 34.2 L (37.5-50.1) % MCV 82.0 L (83.0-100.0) fL MCH 30.0 (28.0-33.3) pg MCHC 36.5 H (31.6-35.5) g/dL RDW 12.7 (11.5-14.5) % Plt Count 271 (140-400) K/mcL MPV 10.4 (9.4-12.4) fL Immature Gran % 0.4 (0-4) % Seg Neutrophils % 65.1 % Lymphocytes % 22.0 % Monocytes % 6.6 % Eosinophils % 5.0 % Basophils % 0.9 % Neutrophils # 6.4 (1.6-8.9) K/mcL Lymphocytes # 2.2 (0.6-4.6) K/mcL Monocytes # 0.6 (0.0-1.3) K/mcL Eosinophils # 0.5 (0.0-0.6) K/mcL Basophils # 0.1 (0.0-0.2) K/mcL PT (9.4-12.1) Seconds INR VBG pH (7.32-7.42) pH Units VBG pCO2 (41-51) mmHg VBG pO2 (25-50) mmHg VBG HCO3 (21-27) mEq/L Sodium (136-145) mEq/L Potassium (3.5-5.1) mEq/L Chloride (98-107) mEq/L Carbon Dioxide (23-29) mEq/L BUN (8-23) mg/dL Creatinine (0.70-1.30) mg/dL Est GFR ( Amer) (> 60) Est GFR (Non-Af Amer) (> 60) BUN/Creatinine Ratio (6-26) Glucose (70-105) mg/dL Calculated Osmolality (280-300) Lactic Acid (0.5-2.2) mmol/L Calcium (8.6-10.3) mg/dL Total Bilirubin (0.3-1.0) mg/dL AST (13-39) Units/L ALT (7-52) Units/L Alkaline Phosphatase (34-104) Units/L Ammonia (16-53) mcmol/L Troponin I (< 0.04) ng/mL B-Natriuretic Peptide 36 (Less than 100) pg/mL Serum Total Protein (6.4-8.9) g/dL Albumin (3.5-5.7) g/dL Globulin (2.4-3.5) g/dL Albumin/Globulin Ratio (1.1-2.2) Lipase (11-82) Units/L Beta-Hydroxybutyric Acd (0.02-0.27) mmol/L BMP 08/19/18 Unknown Sodium 128 L Potassium 4.2 Chloride 93 L Carbon Dioxide 23 BUN 45 H Creatinine 2.76 H Glucose 736 H* Calcium 9.1 Cardiac Enzymes 08/19/18 Range/Units Unknown Troponin I < 0.03 (< 0.04) ng/mL Liver Function 08/19/18 Range/Units Unknown Total Bilirubin 0.5 (0.3-1.0) mg/dL AST 10 L (13-39) Units/L ALT 14 (7-52) Units/L Alkaline Phosphatase 128 H (34-104) Units/L Albumin 3.3 L (3.5-5.7) g/dL - ABG Interpretation ABG results: 08/19/18 17:18 VBG pH 7.37 VBG pCO2 42 VBG pO2 168 H VBG HCO3 24 - Impressions ITS Impressions Chest X-Ray 08/19/18 15:43 IMPRESSION: 1. Study mildly limited, as detailed above. 2. No acute cardiopulmonary disease. D/ / Yosvany Echavarria MD / Yosvany Echavarria MD Interpreting Provider: Yosvany Echavarria MD Abdomen/Pelvis CT 08/19/18 15:55 IMPRESSION: No evidence of obstructive uropathy. No acute process is appreciated. D/ / 08/19/2018 17:12:23 Bin Evans MD / adonis Interpreting Provider: Bin Evans MD - Assessment and plan (1) Type 2 diabetes mellitus with hyperosmolar nonketotic hyperglycemia Current Visit: Yes Status: Acute Assessment and plan: presenting FS 726 osmolality 313, beta hydroxybutyric negative, blood gases unremarkable, after 2 units of insulin fingerstick remains 730 Initiate HHS protocol with insulin drip, IV fluid hydration, Electrolyte replacements when necessary Nothing by mouth except medications Fingerstick every hour Continue close monitoring patient is high risk due to use of high-risk medication which requires intense monitoring, acute on chronic kidney injury, lactic acidosis, Etiology of HHS is due to noncompliance with insulin. There is currently no evidence of infection. Patient is full code Monitor resp status due to hx of CHF (2) Acute kidney injury superimposed on chronic kidney disease Current Visit: Yes Status: Acute Assessment and plan: Likely due to dehydration from HHS. Patient with CKG and baseline between 1.2- 1.8, presented with a creatinine of 2.76 as well as hyperglycemia and he moconcentration Abdomen CT shows no obstructive uropathy Continue aggressive IV fluid hydration Strict intake and output Monitor respiratory status due to history of CHF Avoid nephrotoxins Continue to monitor chemistry every hrs (3) Lactic acidosis Current Visit: Yes Status: Acute Assessment and plan: Patient presented with lactic acid of 4.5 likely due to hypoxia and demand from COPD exacerbation Also likely due to dehydration Patient received IV fluid hydration, repeat lactate in 4 hours and p.m. Abdomen CAT scan ruled out any acute abdominal findings. Patient has no metabolic acidosis. (4) A-fib Current Visit: Yes Status: Chronic Assessment and plan: History of chronic A. fib, heart rate is controlled at this time and regular rhythm Resume home medications when confirmed. Qualifiers: Atrial fibrillation type: chronic Qualified Code(s): I48.2 - Chronic atrial fibrillation (5) Anemia Current Visit: Yes Status: Chronic Assessment and plan: Patient with known chronic anemia due to CKG baseline hemoglobin is 8 Presenting hemoglobin today is 12.5 due to dehydration from HHS Continue to monitor hemoglobin No current suspicion for any blood loss. Qualifiers: Anemia type: due to chronic kidney disease Chronic kidney disease stage: stage 3 (moderate) Qualified Code(s): N18.3 - Chronic kidney disease, stage 3 (moderate); D63.1 - Anemia in chronic kidney disease (6) COPD exacerbation Current Visit: Yes Status: Acute Assessment and plan: Patient with complaints of shortness of breath and cough, wheezing diffusely on arrival Continue steroids with prednisone by mouth 40 mg daily Duo nebs every 4 hours scheduled Albuterol every 2 when necessary PO azithromycin Chest x-ray is negative for infiltrates patient is afebrile. (7) Diastolic CHF Current Visit: Yes Status: Chronic Assessment and plan: Patient is currently dehydrated and hypovoemic Monitor resp status closely Hold home lasix for now Resume other home cardiac meds Qualifiers: Heart failure chronicity: chronic Qualified Code(s): I50.32 - Chronic diastolic (congestive) heart failure (8) DVT prophylaxis Current Visit: Yes Status: Acute Assessment and plan: SQ heparin (9) Hypertension Current Visit: Yes Status: Chronic Assessment and plan: Resume home meds when confirmed Qualifiers: Hypertension type: essential hypertension Qualified Code(s): I10 - Essential (primary) hypertension (10) Nicotine dependence with nicotine-induced disorder Current Visit: Yes Status: Chronic Assessment and plan: NRT Smokes 1.5 PPD Tobacco cessation encouraged Qualifiers: Nicotine product type: cigarettes Qualified Code(s): F17.219 - Nicotine dependence, cigarettes, with unspecified nicotine-induced disorders (11) Obesity (BMI 30.0-34.9) Current Visit: Yes Status: Chronic Assessment and plan: BMI 31.2 Encourage lifestyle modification (12) Peripheral vascular disease Current Visit: Yes Status: Chronic Assessment and plan: Continue home meds, when confirmed (13) Seizure Current Visit: Yes Status: Chronic Assessment and plan: resume home meds - Time Spent With Patient Total time spent is greater than 50% in coordination of care (as documented) at patient's floor/unit and/or counseling patient:
[2018-08-19] MEDS ORDERED: Azithromycin 250 MG TABLET PO SCH (18:15)
[2018-08-19] MEDS ORDERED: Albuterol 2.5 MG/3 ML NEBULIZER IH PRN (18:40)
[2018-08-19] MEDS: 0.9 % Sodium Chloride w KCl 20 MEQ/1,000 ML MLS IVC SCH (21:22)
[2018-08-19 21:26] LABS: Bilirubin,Urine Negative (Negative); Blood,Urine Moderate (Negative); Clarity,Urine Clear (Clear); Color,Urine Yellow (Yellow); Glucose,Urine (UA) >=1000 mg/dL (Normal); Ketones,Urine Negative (Negative); Leukocyte Esterase,Urine Negative (Negative); Nitrite,Urine Negative (Negative); PH,Urine 5.5 pH Units (5.0-8.0); Protein,Urine >=1000 mg/dL (Neg-Trace); Specific Gravity,Urine 1.028 (1.010-1.025); Urobilinogen,Urine Normal (Normal)
[2018-08-19 21:30] LABS: Bacteria,Urine None Seen per hpf (None-Few); Squamous Epithelial Cell,Urine Many per lpf (None-Few)
[2018-08-19 21:39] LABS: Hyaline Casts,Urine Few per lpf (None-Few)
[2018-08-19 22:30] LABS: Calcium 8.9 mg/dL (8.6-10.3); Potassium 4.2 mEq/L (3.5-5.1)
[2018-08-19] MEDS: Ipratropium/Albuterol Neb 3 ML IH SCH (23:07)
[2018-08-20] MEDS: Ipratropium/Albuterol Neb 3 ML IH SCH ×2 (03:56→11:07)
[2018-08-20 04:24] LABS: Basophils % 0.3 %; Eosinophils % 0.2 %; Hematocrit 32.3 % (37.5-50.1); Hemoglobin 11.5 g/dL (12.9-16.9); Immature Granulocytes % 0.7 % (0-4); Lymphocytes # 1.1 K/mcL (0.6-4.6); Lymphocytes % 12.3 %; Mean Corpuscular HGB Conc 35.6 g/dL (31.6-35.5); Mean Corpuscular Hemoglobin 29.1 pg (28.0-33.3); Mean Corpuscular Volume 81.8 fL (83.0-100.0); Mean Platelet Volume 9.7 fL (9.4-12.4); Monocytes # 0.1 K/mcL (0.0-1.3); Neutrophils # 7.5 K/mcL (1.6-8.9); Platelet Count 260 K/mcL (140-400); Red Blood Count 3.95 M/mcL (4.19-5.50); Red Cell Distribution Width 12.7 % (11.5-14.5); Segmented Neutrophils % 85.5 %
[2018-08-20 04:34] LABS: Calcium 8.4 mg/dL (8.6-10.3); Magnesium 2.2 mg/dL (1.6-2.6); Phosphorous 2.2 mg/dL (2.7-4.5)
[2018-08-20] MEDS ORDERED: *HR* Heparin 5,000 UNIT/ML VIAL SQ SCH (06:00)
[2018-08-20 07:06] LABS: Estimated Average Glucose 229 mg/dl; Hemoglobin A1C 9.6 %
[2018-08-20] MEDS ORDERED: Insulin Human Regular 100 UNIT in 0.9 % Sodium Chloride 100 ML IVC SCH (08:00)
[2018-08-20] MEDS: 0.9 % Sodium Chloride w KCl 20 MEQ/1,000 ML MLS IVC SCH (08:49)
[2018-08-20] MEDS ORDERED: predniSONE 20 MG TABLET PO SCH (09:00)
[2018-08-20] MEDS ORDERED: D5% in Water 1,000 ML IVC PRN (09:04)
[2018-08-20] MEDS ORDERED: *HR* Dextrose 50 % in Water (Syg) 50 ML SYRINGE IVP PRN (09:04)
[2018-08-20] MEDS ORDERED: Insulin DETEMIR 100 UNIT/ML X5UNITS SQ ONE (09:04)
[2018-08-20] MEDS ORDERED: Dextrose Gel 15 GM/37.5 ML TUBE PO PRN ×2 (09:04)
--- NOTE | 2018-08-20 09:30 | Internal Med Progress Note ---
<WattsSanti S - Last Filed: 08/20/18 11:32> Hospitalist Progress Note - Encounter Date of Encounter: 08/20/18 Time of Encounter: 09:26 - Subjective Interval History: Mr Regalado is a 62yo male admitted on 08/20/18. He has an extensive medical hx including CKD, diastolic CHF, CAD, PVD, seizure d/o, T2DM, HTN, HDL. He presented to the emergency room [facility] the complaint of passing out at the DM[facility] and flank pain b/l. He denies having any fever/chills/cp/palpiltations or SOB assoc with this episode He states he was recently d/c from [facility] after going there for rehab after getting two toes amutated. He denies being able to take his insulin bc he didn't have any nor did he have needles. In the ER the pt was given duonebs and steroids because he was wheezing. He had a glucose of 736 on admission, lactic acid 4.5. CT abd/pelvis was unremarkable, cxr was unremarkable. The pt is seen at bedside and has no acute complaint/concern. He is very hungry and wants breakfast. Denies chest pain, SOB, N/V/D, abd pain. - Exam Vitals: Temp Pulse Resp BP Pulse Ox 97.9 F 64 20 152/89 97 08/20/18 07:09 08/20/18 09:04 08/20/18 09:00 08/20/18 07:09 08/20/18 09:00 Exam: Gen: NAD, Speaks coherently, obese, AOx3 HEENT: Dry oral mucosa, anicteric, NCAT Neuro: AAOX3, no facial paralysis, CN grossly intact, no speech deficits Chest: Equal movement,no chest wall tenderness Respiratory: some bilateral mild wheezes Heart: S1, S2 only, RRR, no m/g/r Abdomen: Soft, not tender, moves with respiration, BS present in al quadrants Extremities: Normal inspection, no edema Skin: No rash Psych: Appropriate affect and mood - Assessment and Plan (1) Type 2 diabetes mellitus with hyperosmolar nonketotic hyperglycemia Status: Acute Assessment and Plan: On admission glucose 726, this morning glucose 185 - osmolality 313 Beta hydroxyutrate acid (-) Sodium 131 on admission, secondary to hyperglycemia Correct sodium: 141 ABG pH 7.37, pCO2 42, pO2 168, HCO3 24 Plan: - transition to SQ insulin, d/c drip 15U levemir now MDSS 40U levemir BID starting tonight diabetic diet - fluids d/c - monitor glucose as per protocol - telemetry monitoring - disposition: glucose under control, pt able to tolerate PO intake (2) Acute kidney injury superimposed on chronic kidney disease Status: Acute Assessment and Plan: Likely due to dehydration from HHS. - pt has hx of CKD stage III Basline creatinine 1.2-1.8 On admission creatinine 2.68, this morning 2.26 Likely pre-renal secondary to poor PO intake and dehydration CT abdomen was unremarkable for acute obstructive uropathy Plan: - monitor kidney fxn - avoid nephrotoxins - strict I&O (3) Nicotine dependence with nicotine-induced disorder Status: Chronic Assessment and Plan: NRT Smokes 1.5 PPD Tobacco cessation encouraged - pt refuses to quit (4) Obesity (BMI 30.0-34.9) Status: Chronic Assessment and Plan: BMI 30.9 Encourage lifestyle modification (5) Peripheral vascular disease Status: Chronic Assessment and Plan: Chronic - continue crestor (6) DVT prophylaxis Status: Acute Assessment and Plan: SQ heparin (7) Anemia Status: Chronic Assessment and Plan: Hemoglobin on admission 12.5 - this monring 11.5 - has anemia most likely secondary to chronic dz vs nutritional - continue to monitor hemoglobin (8) Diastolic CHF Status: Chronic Assessment and Plan: Patient is currently dehydrated and hypovoemic - NOT in acute exacerbation - last ECHO 11/2016 LVEF 60-65% Normal LV size/function (9) A-fib Status: Chronic Assessment and Plan: History of chronic A. fib, heart rate is controlled at this time and regular rhythm Resume home medications when confirmed. - on Coreg (10) Seizure Status: Chronic Assessment and Plan: resume home meds - on keppra (11) Hypertension Status: Chronic Assessment and Plan: BP 152/89 - continue home meds (12) COPD exacerbation Status: Acute Assessment and Plan: Patient with complaints of shortness of breath and cough, wheezing diffusely on arrival CXR negative for infiltrates - pt remains afebrile, WBC count 8.8 Plan: - continue steroids 40mg PO daily - duonebs scheduled - azithromycocin day 2 . (13) Lactic acidosis Status: Resolved Assessment and Plan: Patient presented with lactic acid of 4.5 likely due to hypoxia and demand from COPD exacerbation - repeat lactic acidsis 1.4 - resolved - Time Spent with Patient Total time spent is greater than 50% in coordination of care (as documented) at patient's floor/unit and/or counseling patient: less than 15 minutes Plan of Care Discussed with: patient Internal Medicine: Result - Labs CBC & Chem 7: 08/20/18 04:03 08/20/18 10:30 Labs: Short CBC 08/19/18 08/20/18 Range/Units Unknown 04:03 WBC 9.8 8.8 (4.3-11.1) K/mcL Hgb 12.5 L 11.5 L (12.9-16.9) g/dL Hct 34.2 L 32.3 L (37.5-50.1) % Plt Count 271 260 (140-400) K/mcL Neutrophils # 6.4 7.5 (1.6-8.9) K/mcL BMP 08/19/18 08/19/18 08/20/18 21:42 Unknown 04:03 Sodium 131 L 128 L 134 L Potassium 4.2 4.2 4.0 Chloride 100 93 L 103 Carbon Dioxide 24 23 23 BUN 48 H 45 H 46 H Creatinine 2.68 H 2.76 H 2.26 H Glucose 374 H 736 H* 185 H Calcium 8.9 9.1 8.4 L Cardiac Enzymes 08/19/18 Range/Units Unknown Troponin I < 0.03 (< 0.04) ng/mL Liver Function 08/19/18 Range/Units Unknown Total Bilirubin 0.5 (0.3-1.0) mg/dL AST 10 L (13-39) Units/L ALT 14 (7-52) Units/L Alkaline Phosphatase 128 H (34-104) Units/L Albumin 3.3 L (3.5-5.7) g/dL Urine 08/19/18 Range/Units 21:11 Urine Color Yellow (Yellow) Urine Clarity Clear (Clear) Urine pH 5.5 (5.0-8.0) pH Units Ur Specific [place] 1.028 H (1.010-1.025) Urine Protein >=1000 H (Neg-Trace) mg/dL Urine Glucose (UA) >=1000 H (Normal) mg/dL - ABG Interpretation ABG results: PT/INR, D-dimer PT 10.4 Seconds (9.4-12.1) 08/19/18 16:10 - Impressions Impressions Chest X-Ray 08/19/18 15:43 IMPRESSION: 1. Study mildly limited, as detailed above. 2. No acute cardiopulmonary disease. D/ / Yosvany Echavarria MD / Yosvany Echavarria MD Interpreting Provider: Yosvany Echavarria MD Abdomen/Pelvis CT 08/19/18 15:55 IMPRESSION: No evidence of obstructive uropathy. No acute process is appreciated. D/ / 08/19/2018 17:12:23 Bin Evans MD / adonis Interpreting Provider: Bin Evans MD Consult Discharge Plan - Plan Referrals: Mark Coe MD [Primary Care Provider] - 08/27/18 9:45 am <Abhishek Nieto - Last Filed: 08/20/18 15:58> Hospitalist Progress Note - Encounter Date of Encounter: 08/20/18 Time of Encounter: 09:20 - Exam Vitals: Temp Pulse Resp BP Pulse Ox 98.0 F 69 18 175/76 96 08/20/18 11:36 08/20/18 11:36 08/20/18 11:36 08/20/18 11:36 08/20/18 11:36 - Assessment and Plan (1) Acute kidney injury superimposed on chronic kidney disease Status: Acute (2) Nicotine dependence with nicotine-induced disorder Status: Chronic (3) Obesity (BMI 30.0-34.9) Status: Chronic (4) Peripheral vascular disease Status: Chronic (5) DVT prophylaxis Status: Acute (6) Anemia Status: Chronic (7) Diastolic CHF Status: Chronic (8) A-fib Status: Chronic (9) Seizure Status: Chronic (10) Hypertension Status: Chronic (11) Type 2 diabetes mellitus with hyperosmolar nonketotic hyperglycemia Status: Acute (12) COPD exacerbation Status: Acute (13) Lactic acidosis Status: Resolved - Time Spent with Patient Total time spent is greater than 50% in coordination of care (as documented) at patient's floor/unit and/or counseling patient: Internal Medicine: Result - Labs CBC & Chem 7: 08/20/18 04:03 08/20/18 10:30 Labs: Short CBC 08/19/18 08/20/18 Range/Units Unknown 04:03 WBC 9.8 8.8 (4.3-11.1) K/mcL Hgb 12.5 L 11.5 L (12.9-16.9) g/dL Hct 34.2 L 32.3 L (37.5-50.1) % Plt Count 271 260 (140-400) K/mcL Neutrophils # 6.4 7.5 (1.6-8.9) K/mcL BMP 08/19/18 08/19/18 08/20/18 21:42 Unknown 04:03 Sodium 131 L 128 L 134 L Potassium 4.2 4.2 4.0 Chloride 100 93 L 103 Carbon Dioxide 24 23 23 BUN 48 H 45 H 46 H Creatinine 2.68 H 2.76 H 2.26 H Glucose 374 H 736 H* 185 H Calcium 8.9 9.1 8.4 L 08/20/18 10:30 Sodium 132 L Potassium 4.6 Chloride 104 Carbon Dioxide 22 L BUN 46 H Creatinine 2.26 H Glucose 246 H Calcium 8.3 L Cardiac Enzymes 08/19/18 Range/Units Unknown Troponin I < 0.03 (< 0.04) ng/mL Liver Function 08/19/18 Range/Units Unknown Total Bilirubin 0.5 (0.3-1.0) mg/dL AST 10 L (13-39) Units/L ALT 14 (7-52) Units/L Alkaline Phosphatase 128 H (34-104) Units/L Albumin 3.3 L (3.5-5.7) g/dL Urine 08/19/18 Range/Units 21:11 Urine Color Yellow (Yellow) Urine Clarity Clear (Clear) Urine pH 5.5 (5.0-8.0) pH Units Ur Specific [place] 1.028 H (1.010-1.025) Urine Protein >=1000 H (Neg-Trace) mg/dL Urine Glucose (UA) >=1000 H (Normal) mg/dL - ABG Interpretation ABG results: PT/INR, D-dimer PT 10.4 Seconds (9.4-12.1) 08/19/18 16:10 - Impressions Impressions Chest X-Ray 08/19/18 15:43 IMPRESSION: 1. Study mildly limited, as detailed above. 2. No acute cardiopulmonary disease. D/ / Yosvany Echavarria MD / Yosvany Echavarria MD Interpreting Provider: Yosvany Echavarria MD Abdomen/Pelvis CT 08/19/18 15:55 IMPRESSION: No evidence of obstructive uropathy. No acute process is appreciated. D/ / 08/19/2018 17:12:23 Bin Evans MD / adonis Interpreting Provider: Bin Evans MD - Attending Attestation I saw evaluated and examined this patient and my medical decision-making was reviewed with the Resident Physician, Santi Watts. I agree with the documented findings, disposition and treatment plan as described except to any changes set forth below. We independently had [id number] contact with the patient. Patient is awake and alert and evaluated him earlier this morning. Denies any new complaints. Reported that he did not receive his insulin products after he was discharged from senior living facility few days back. He has not been taking his insulin as a result. He did have bilateral flank pain yesterday and this is improving. On exam, patient is awake and alert, obese. Oriented 3. Abdomen is soft, nontender. Mild end expiratory wheezing. S1 and S2 are normal. Hyperosmolar hyperglycemic state and type 2 diabetes mellitus: Now resolved. Will transition to subcutaneous insulin. Monitor blood sugars closely. Diabetic diet. Acute kidney injury and chronic kidney disease stage III: Renal function improving. Creatinine is 2.26 today. Not yet at baseline. COPD: Continue duo nebs and steroids. Also on azithromycin. Lactic acidosis: Now resolved. Atrial fibrillation: Rate controlled. Moderate risk for complications. Possible DC tomorrow if patient's blood sugars remain controlled on SQ insulin and ADA diet. <Santi Watts - Last Filed: 08/20/18 11:32> (3) Nicotine dependence with nicotine-induced disorder Qualifiers: Nicotine product type: cigarettes Qualified Code(s): F17.219 - Nicotine dependence, cigarettes, with unspecified nicotine-induced disorders (7) Anemia Qualifiers: Anemia type: due to chronic kidney disease Chronic kidney disease stage: stage 3 (moderate) Qualified Code(s): N18.3 - Chronic kidney disease, stage 3 (moderate); D63.1 - Anemia in chronic kidney disease (8) Diastolic CHF Qualifiers: Heart failure chronicity: chronic Qualified Code(s): I50.32 - Chronic diastolic (congestive) heart failure (9) A-fib Qualifiers: Atrial fibrillation type: chronic Qualified Code(s): I48.2 - Chronic atrial fibrillation (11) Hypertension Qualifiers: Hypertension type: essential hypertension Qualified Code(s): I10 - Essential (primary) hypertension <Abhishek Nieto - Last Filed: 08/20/18 15:58> (2) Nicotine dependence with nicotine-induced disorder Qualifiers: Nicotine product type: cigarettes Qualified Code(s): F17.219 - Nicotine dependence, cigarettes, with unspecified nicotine-induced disorders (6) Anemia Qualifiers: Anemia type: due to chronic kidney disease Chronic kidney disease stage: stage 3 (moderate) Qualified Code(s): N18.3 - Chronic kidney disease, stage 3 (moderate); D63.1 - Anemia in chronic kidney disease (7) Diastolic CHF Qualifiers: Heart failure chronicity: chronic Qualified Code(s): I50.32 - Chronic diastolic (congestive) heart failure (8) A-fib Qualifiers: Atrial fibrillation type: chronic Qualified Code(s): I48.2 - Chronic atrial fibrillation (10) Hypertension Qualifiers: Hypertension type: essential hypertension Qualified Code(s): I10 - Essential (primary) hypertension
[2018-08-20 11:15] LABS: Calcium 8.3 mg/dL (8.6-10.3); Potassium 4.6 mEq/L (3.5-5.1)
[2018-08-20] MEDS ORDERED: Insulin LISPRO 300 UNITS/3 ML VIAL SQ SCH ×2 (11:30→21:00)
[2018-08-20 11:38] VITALS: BP 175/76
[2018-08-20] MEDS ORDERED: Insulin DETEMIR 100 UNIT/ML X5UNITS SQ SCH (21:00)
== END 2018-08-20 14:16 | disposition left against medical advice (07) | DRG 420 ==
LOC: EMEROOARM 15:26 → SUATTDRO 20:12 → 2NNU 20:12
PROVIDERS: ADMIT Internal Medicine; ATTEND Internal Medicine

== ENCOUNTER 2018-09-01 01:59 | Inpatient (IN) ==
--- NOTE | 2018-09-01 02:17 | Emergency Department Note ---
Disposition Clinical Impression: Hyperglycemia CKD (chronic kidney disease) Qualifiers: Chronic kidney disease stage: stage 3 (moderate) Qualified Code(s): N18.3 - Chronic kidney disease, stage 3 (moderate) Anemia Qualifiers: Anemia type: unspecified type Qualified Code(s): D64.9 - Anemia, unspecified Disposition: Admitted As Inpatient Condition: Fair Forms: ED Satisfaction Letter, Work/School Release Time of Disposition: 04:23 General Adult HPI - General Chief complaint: ED General Medical Stated complaint: Right leg, right arm pain Time Seen by Provider: 09/01/18 02:08 Source: patient, EMS Mode of arrival: ambulatory Limitations: no limitations Nursing Notes Reviewed: Yes Vital Signs Reviewed: Yes - History of Present Illness HPI Narrative: Patient is a 63-year-old male that presents emergency department with hyperglycemia. Patient states that it made read home has been reading high. States that this is been ongoing for the past 3 weeks. Patient states that he has been taking all of his insulin and diabetic medications as prescribed. Patient does state that he has not been feeling well recently and is had some diarrhea. Patient also reports that he has had cough and congestion. Patient denies any chest pain. Patient denies any vomiting. Patient does state that he had recently been on steroids but is unable to articulate when this was. Patient was reports that he did have a fall yesterday and is having pain all over his body. Patient states that he is having pain in his legs and in his arms. Patient does have some abrasions that he showed us on his left hand. Pain Scale: 10 - Related Data Home Medications Medication Instructions Recorded Confirmed Albuterol Neb [Proventil Neb] 2.5 mg IH Q4HR PRN 08/20/18 08/20/18 Albuterol Sulfate [Ventolin Hfa] 2 puff IH Q6H PRN 08/20/18 08/20/18 Aspirin 81 mg PO DAILY 08/20/18 08/20/18 Atorvastatin [Lipitor] 40 mg PO HS 08/20/18 08/20/18 Carvedilol [Coreg] 25 mg PO HS 08/20/18 08/20/18 Cholecalciferol (Vitamin D3) 50,000 unit PO MÁRQUEZ 08/20/18 08/20/18 [Vitamin D] Citalopram [CeleXA] 20 mg PO DAILY 08/20/18 08/20/18 Enalapril Maleate [Vasotec] 10 mg PO DAILY 08/20/18 08/20/18 Ferrous Sulfate 325 mg PO BID 08/20/18 08/20/18 Fluticasone Propionate [Flovent 100 mcg IH BID 08/20/18 08/20/18 Diskus] Furosemide [Lasix] 80 mg PO DAILY 08/20/18 08/20/18 Gabapentin [Neurontin] 200 mg PO TID 08/20/18 08/20/18 Insulin Glargine [Lantus] 60 unit SQ BID 08/20/18 08/20/18 Insulin LISPRO [HumaLOG] 2 - 12 units SQ QID 08/20/18 08/20/18 Insulin LISPRO [HumaLOG] 6 units SQ TIDWM 08/20/18 08/20/18 Lactobacillus [Culturelle] 1 cap PO BID 08/20/18 08/20/18 LevETIRAcetam [Keppra] 750 mg PO Q12H 08/20/18 08/20/18 Magnesium Oxide [Magnesium] 400 mg PO BID 08/20/18 08/20/18 Metformin HCl 500 mg PO BID 08/20/18 08/20/18 Omeprazole [PriLOSEC] 20 mg PO DAILY 08/20/18 08/20/18 Polyethylene Glycol 3350 [MiraLAX] 17 gm PO DAILY 08/20/18 08/20/18 Pramipexole Di-HCl [Pramipexole 0.125 mg PO HS 08/20/18 08/20/18 Dihydrochloride] Sennosides/Docusate Sodium 1 tab PO HS PRN 08/20/18 08/20/18 [Senna-Docusate Sodium Tablet] Tiotropium [Spiriva] 18 mcg IH 0700 08/20/18 08/20/18 Trazodone HCl 50 mg PO HS 08/20/18 08/20/18 Vitamin B Complex [B Complex] 1 tab PO DAILY 08/20/18 08/20/18 amLODIPine [Norvasc] 5 mg PO DAILY 08/20/18 08/20/18 Allergies Allergy/AdvReac Type Severity Reaction Status Date / Time acetaminophen Allergy Hives Verified 09/19/17 12:11 [From Darvocet-N] ibuprofen Allergy Hives Verified 09/19/17 12:11 propoxyphene Allergy Hives Verified 09/19/17 12:11 [From Darvocet-N] tramadol [From Ultram] Allergy Hives Verified 09/19/17 12:11 All systems ED: reviewed and negative except as stated. Cardiovascular: Denies: chest pain Respiratory: Denies: dyspnea Gastrointestinal: Denies: abdominal pain, nausea, vomiting Musculoskeletal: Reports: other (Bilateral upper an lower extremity pain ) Integumentary: Reports: abrasion (left hand ) Past Medical History - Past Medical History Medical history: Reports: arthritis, COPD, dementia, diabetes, GERD, hepatitis, hyperlipidemia, hypertension, osteoporosis, renal disease, syncope Surgical history: Reports: cataract, LE stent(s), orthopedic, other Psychiatric history: Reports: anxiety, depression, panic disorder - Social History Smoking Status: Current every day smoker Smokeless Tobacco Status: No Alcohol use: Reports: none Drug use: Reports: none Physical Exam - General Limitations: no limitations General appearance: alert, in no apparent distress - Head Head exam: atraumatic, normocephalic - Eye Eye exam: Present: normal appearance, EOMI - Neck Neck exam: Present: normal inspection, full ROM, trachea midline - Respiratory Respiratory exam: Present: wheezes (Bilaterally ) - Cardiovascular Cardiovascular exam: Present: regular rate, normal rhythm, normal heart sounds, +S1, +S2 - Abdominal Exam Abdominal exam: Present: soft, Non-Tender, normal bowel sounds - Extremities Exam Extremities exam: Present: other (Patient does appear to have a deformity to the left fourth and fifth digit. Patient also has pain with palpation to the right distal lower extremity, left hip and left femur and bilateral forearms and the left hand.). Absent: normal inspection - Neurological Exam Neurological exam: Present: alert, oriented X3 - Psychiatric Psychiatric exam: Present: normal affect, normal mood - Skin Skin exam: Present: warm, dry, other (Abrasions to the left hand ) Course Vital Signs Temperature 98.0 F 09/01/18 02:02 Pulse Rate 54 09/01/18 02:02 Respiratory Rate 16 09/01/18 02:02 Blood Pressure 134/103 09/01/18 02:02 O2 Sat by Pulse Oximetry 94 09/01/18 02:02 Temperature 98.0 F 09/01/18 02:02 Pulse Rate 54 09/01/18 02:02 Respiratory Rate 16 09/01/18 02:02 Blood Pressure 134/103 09/01/18 02:02 O2 Sat by Pulse Oximetry 94 09/01/18 02:02 Oxygen Delivery Oxygen Delivery Room Air Medical Decision Making - MDM Narrative Medical decision making narrative: Due the patient presenting to the emergency department with hyperglycemia we will obtain basic laboratory testing CBC, BMP, hepatic panel, beta hydroxybutyric acid and a VBG. There is a high concern that the patient potentially be in DKA due to his meter reading high for 3 weeks. We will also obtain plain film x-rays of the extremities were the patient is complaining of pain. All of the plain film x-rays that were obtained were negative for acute fracture. Patient does have an elevated beta hydroxybutyric acid. Patient does has a very significantly elevated blood glucose of 1104. Patient's sodium on his chemistry was 118. The corrected sodium is 134. This is corrected due to the patient having a significant hyperglycemia. Patient does not have an anion gap. Patient is conversive on exam. Patient does have a mildly elevated serum ketones however does not have any other signs of DKA at this time. Patient was given fluid bolus as well as 10 units of IV insulin. Patient will need to be admitted to the hospital for further evaluation and management. I called and spoke the admitting hospitalist Dr. Aquino and he is except the patient to their service. Patient will be admitted to the hospital this time for further evaluation and management. - Medical Records Medical records reviewed: Yes I reviewed the patient's medical records. - Lab Data Lab results reviewed: Yes I reviewed the patient's lab results. Result diagrams: 09/01/18 02:33 09/01/18 02:33 Lab Results 09/01/18 09/01/18 09/01/18 Range/Units 02:33 02:33 02:33 WBC 6.8 (4.3-11.1) K/mcL RBC 4.02 L (4.19-5.50) M/mcL Hgb 11.9 L (12.9-16.9) g/dL Hct 34.7 L (37.5-50.1) % MCV 86.3 (83.0-100.0) fL MCH 29.6 (28.0-33.3) pg MCHC 34.3 (31.6-35.5) g/dL RDW 12.7 (11.5-14.5) % Plt Count 238 (140-400) K/mcL MPV 9.9 (9.4-12.4) fL Immature Gran % 0.4 (0-4) % Seg Neutrophils % 67.1 % Lymphocytes % 18.1 % Monocytes % 7.4 % Eosinophils % 6.0 % Basophils % 1.0 % Neutrophils # 4.6 (1.6-8.9) K/mcL Lymphocytes # 1.2 (0.6-4.6) K/mcL Monocytes # 0.5 (0.0-1.3) K/mcL Eosinophils # 0.4 (0.0-0.6) K/mcL Basophils # 0.1 (0.0-0.2) K/mcL VBG pH (7.32-7.42) pH Units VBG pCO2 (41-51) mmHg VBG pO2 (25-50) mmHg VBG HCO3 (21-27) mEq/L Sodium Cancelled Potassium Cancelled Chloride Cancelled Carbon Dioxide Cancelled BUN Cancelled Creatinine Cancelled Est GFR ( Amer) Cancelled Est GFR (Non-Af Amer) Cancelled BUN/Creatinine Ratio Cancelled Glucose Cancelled Calculated Osmolality Cancelled Lactic Acid (0.5-2.2) mmol/L Calcium Cancelled Magnesium Cancelled Troponin I < 0.03 (< 0.04) ng/mL Beta-Hydroxybutyric Acd 0.56 H (0.02-0.27) mmol/L Specimen Rejected 09/01/18 09/01/18 09/01/18 Range/Units 02:33 02:33 02:46 WBC (4.3-11.1) K/mcL RBC (4.19-5.50) M/mcL Hgb (12.9-16.9) g/dL Hct (37.5-50.1) % MCV (83.0-100.0) fL MCH (28.0-33.3) pg MCHC (31.6-35.5) g/dL RDW (11.5-14.5) % Plt Count (140-400) K/mcL MPV (9.4-12.4) fL Immature Gran % (0-4) % Seg Neutrophils % % Lymphocytes % % Monocytes % % Eosinophils % % Basophils % % Neutrophils # (1.6-8.9) K/mcL Lymphocytes # (0.6-4.6) K/mcL Monocytes # (0.0-1.3) K/mcL Eosinophils # (0.0-0.6) K/mcL Basophils # (0.0-0.2) K/mcL VBG pH 7.33 (7.32-7.42) pH Units VBG pCO2 51 (41-51) mmHg VBG pO2 59 H (25-50) mmHg VBG HCO3 27 (21-27) mEq/L Sodium Potassium Chloride Carbon Dioxide BUN Creatinine Est GFR ( Amer) Est GFR (Non-Af Amer) BUN/Creatinine Ratio Glucose Calculated Osmolality Lactic Acid 1.3 (0.5-2.2) mmol/L Calcium Magnesium Troponin I (< 0.04) ng/mL Beta-Hydroxybutyric Acd (0.02-0.27) mmol/L Specimen Rejected Miscellaneous - Radiology Data Radiology results reviewed: Yes I reviewed the patient's radiology results. Chest X-Ray 09/01/18 02:08 IMPRESSION: No pneumonia or any other acute cardiopulmonary abnormality. D/ / Livan Gamboa / Livan Gamboa Interpreting Provider: Livan Gamboa Femur X-Ray 09/01/18 02:08 IMPRESSION: No acute fracture of the left femur. D/ / Leonila Duong MD / Leonila Duong MD Interpreting Provider: Leonila Duong MD Forearm X-Ray 09/01/18 02:08 IMPRESSION: No acute osseous abnormality of the left forearm. D/ / Leonila Duong MD / Leonila Duong MD Interpreting Provider: Leonila Duong MD Hand X-Ray 09/01/18 02:08 IMPRESSION: No acute findings. D/ / Leonila Duong MD / Leonila Duong MD Interpreting Provider: Leonila Duong MD Tibia/Fibula X-Ray 09/01/18 02:08 IMPRESSION: Unremarkable right tib-fib radiographs. D/ / Leonila Duong MD / Leonila Duong MD Interpreting Provider: Leonila Duong MD - EKG Data EKG #1 EKG attestation: Yes I reviewed and interpreted this EKG. EKG results narrative: Patient's EKG shows a sinus rhythm at a rate of 53 bpm, OH interval 177, QRS duration of 106, QTc of 419. There is no evidence of STEMI and EKG.
[2018-09-01 02:49] LABS: VBG HCO3 27 mEq/L (21-27); VBG PCO2 51 mmHg (41-51); VBG PH 7.33 pH Units (7.32-7.42); VBG PO2 59 mmHg (25-50)
[2018-09-01 03:00] LABS: Basophils # 0.1 K/mcL (0.0-0.2); Eosinophils # 0.4 K/mcL (0.0-0.6); Hematocrit 34.7 % (37.5-50.1); Hemoglobin 11.9 g/dL (12.9-16.9); Immature Granulocytes % 0.4 % (0-4); Lymphocytes # 1.2 K/mcL (0.6-4.6); Lymphocytes % 18.1 %; Mean Corpuscular HGB Conc 34.3 g/dL (31.6-35.5); Mean Corpuscular Hemoglobin 29.6 pg (28.0-33.3); Mean Corpuscular Volume 86.3 fL (83.0-100.0); Mean Platelet Volume 9.9 fL (9.4-12.4); Monocytes # 0.5 K/mcL (0.0-1.3); Monocytes % 7.4 %; Neutrophils # 4.6 K/mcL (1.6-8.9); Platelet Count 238 K/mcL (140-400); Red Blood Count 4.02 M/mcL (4.19-5.50); Red Cell Distribution Width 12.7 % (11.5-14.5); Segmented Neutrophils % 67.1 %
[2018-09-01 04:12] LABS: Calcium 8.6 mg/dL (8.6-10.3); Magnesium 2.4 mg/dL (1.6-2.6); Potassium 4.5 mEq/L (3.5-5.1)
[2018-09-01] MEDS ORDERED: Insulin Human Regular 10 UNIT in 0.9 % Sodium Chloride 10 ML IV ONE (04:21)
--- NOTE | 2018-09-01 04:35 | Emergency Department Note ---
Disposition Clinical Impression: Hyperglycemia CKD (chronic kidney disease) Qualifiers: Chronic kidney disease stage: stage 3 (moderate) Qualified Code(s): N18.3 - Chronic kidney disease, stage 3 (moderate) Anemia Qualifiers: Anemia type: unspecified type Qualified Code(s): D64.9 - Anemia, unspecified Disposition: Admitted As Inpatient Condition: Fair Referrals: Mark Coe MD [Primary Care Provider] - Forms: ED Satisfaction Letter, Work/School Release General Adult HPI - General Chief complaint: ED General Medical Stated complaint: Right leg, right arm pain Time Seen by Provider: 09/01/18 02:08 Source: patient, EMS Mode of arrival: ambulatory Limitations: no limitations Nursing Notes Reviewed: Yes Vital Signs Reviewed: Yes - History of Present Illness Pain Scale: 10 - Related Data Home Medications Medication Instructions Recorded Confirmed Albuterol Neb [Proventil Neb] 2.5 mg IH Q4HR PRN 08/20/18 08/20/18 Albuterol Sulfate [Ventolin Hfa] 2 puff IH Q6H PRN 08/20/18 08/20/18 Aspirin 81 mg PO DAILY 08/20/18 08/20/18 Atorvastatin [Lipitor] 40 mg PO HS 08/20/18 08/20/18 Carvedilol [Coreg] 25 mg PO HS 08/20/18 08/20/18 Cholecalciferol (Vitamin D3) 50,000 unit PO MÁRQUEZ 08/20/18 08/20/18 [Vitamin D] Citalopram [CeleXA] 20 mg PO DAILY 08/20/18 08/20/18 Enalapril Maleate [Vasotec] 10 mg PO DAILY 08/20/18 08/20/18 Ferrous Sulfate 325 mg PO BID 08/20/18 08/20/18 Fluticasone Propionate [Flovent 100 mcg IH BID 08/20/18 08/20/18 Diskus] Furosemide [Lasix] 80 mg PO DAILY 08/20/18 08/20/18 Gabapentin [Neurontin] 200 mg PO TID 08/20/18 08/20/18 Insulin Glargine [Lantus] 60 unit SQ BID 08/20/18 08/20/18 Insulin LISPRO [HumaLOG] 2 - 12 units SQ QID 08/20/18 08/20/18 Insulin LISPRO [HumaLOG] 6 units SQ TIDWM 08/20/18 08/20/18 Lactobacillus [Culturelle] 1 cap PO BID 08/20/18 08/20/18 LevETIRAcetam [Keppra] 750 mg PO Q12H 08/20/18 08/20/18 Magnesium Oxide [Magnesium] 400 mg PO BID 08/20/18 08/20/18 Metformin HCl 500 mg PO BID 08/20/18 08/20/18 Omeprazole [PriLOSEC] 20 mg PO DAILY 08/20/18 08/20/18 Polyethylene Glycol 3350 [MiraLAX] 17 gm PO DAILY 08/20/18 08/20/18 Pramipexole Di-HCl [Pramipexole 0.125 mg PO HS 08/20/18 08/20/18 Dihydrochloride] Sennosides/Docusate Sodium 1 tab PO HS PRN 08/20/18 08/20/18 [Senna-Docusate Sodium Tablet] Tiotropium [Spiriva] 18 mcg IH 0700 08/20/18 08/20/18 Trazodone HCl 50 mg PO HS 08/20/18 08/20/18 Vitamin B Complex [B Complex] 1 tab PO DAILY 08/20/18 08/20/18 amLODIPine [Norvasc] 5 mg PO DAILY 08/20/18 08/20/18 Allergies Allergy/AdvReac Type Severity Reaction Status Date / Time acetaminophen Allergy Hives Verified 09/19/17 12:11 [From Darvocet-N] ibuprofen Allergy Hives Verified 09/19/17 12:11 propoxyphene Allergy Hives Verified 09/19/17 12:11 [From Darvocet-N] tramadol [From Ultram] Allergy Hives Verified 09/19/17 12:11 Cardiovascular: Denies: chest pain Respiratory: Denies: dyspnea Gastrointestinal: Denies: abdominal pain, nausea, vomiting Musculoskeletal: Reports: other (Bilateral upper an lower extremity pain ) Integumentary: Reports: abrasion (left hand ) Past Medical History - Past Medical History Medical history: Reports: arthritis, COPD, dementia, diabetes, GERD, hepatitis, hyperlipidemia, hypertension, osteoporosis, renal disease, syncope Surgical history: Reports: cataract, LE stent(s), orthopedic, other Psychiatric history: Reports: anxiety, depression, panic disorder - Social History Smoking Status: Current every day smoker Smokeless Tobacco Status: No Alcohol use: Reports: none Drug use: Reports: none Physical Exam - General Limitations: no limitations General appearance: alert, in no apparent distress Course Vital Signs Temperature 98.0 F 09/01/18 02:02 Pulse Rate 54 09/01/18 02:02 Respiratory Rate 16 09/01/18 02:02 Blood Pressure 134/103 09/01/18 02:02 O2 Sat by Pulse Oximetry 94 09/01/18 02:02 Temperature 98.0 F 09/01/18 02:02 Pulse Rate 54 09/01/18 03:49 Respiratory Rate 14 09/01/18 03:49 Blood Pressure 153/77 09/01/18 03:49 O2 Sat by Pulse Oximetry 93 09/01/18 03:49 Oxygen Delivery Oxygen Delivery Room Air Medical Decision Making - Medical Records Medical records reviewed: Yes I reviewed the patient's medical records. - Lab Data Lab results reviewed: Yes I reviewed the patient's lab results. Result diagrams: 09/01/18 02:33 09/01/18 03:21 Lab Results 09/01/18 09/01/18 09/01/18 Range/Units 02:33 02:33 02:33 WBC 6.8 (4.3-11.1) K/mcL RBC 4.02 L (4.19-5.50) M/mcL Hgb 11.9 L (12.9-16.9) g/dL Hct 34.7 L (37.5-50.1) % MCV 86.3 (83.0-100.0) fL MCH 29.6 (28.0-33.3) pg MCHC 34.3 (31.6-35.5) g/dL RDW 12.7 (11.5-14.5) % Plt Count 238 (140-400) K/mcL MPV 9.9 (9.4-12.4) fL Immature Gran % 0.4 (0-4) % Seg Neutrophils % 67.1 % Lymphocytes % 18.1 % Monocytes % 7.4 % Eosinophils % 6.0 % Basophils % 1.0 % Neutrophils # 4.6 (1.6-8.9) K/mcL Lymphocytes # 1.2 (0.6-4.6) K/mcL Monocytes # 0.5 (0.0-1.3) K/mcL Eosinophils # 0.4 (0.0-0.6) K/mcL Basophils # 0.1 (0.0-0.2) K/mcL VBG pH (7.32-7.42) pH Units VBG pCO2 (41-51) mmHg VBG pO2 (25-50) mmHg VBG HCO3 (21-27) mEq/L Sodium Cancelled Potassium Cancelled Chloride Cancelled Carbon Dioxide Cancelled BUN Cancelled Creatinine Cancelled Est GFR ( Amer) Cancelled Est GFR (Non-Af Amer) Cancelled BUN/Creatinine Ratio Cancelled Glucose Cancelled Calculated Osmolality Cancelled Lactic Acid (0.5-2.2) mmol/L Calcium Cancelled Magnesium Cancelled Troponin I < 0.03 (< 0.04) ng/mL Beta-Hydroxybutyric Acd 0.56 H (0.02-0.27) mmol/L Specimen Rejected 09/01/18 09/01/18 09/01/18 Range/Units 02:33 02:33 02:46 WBC (4.3-11.1) K/mcL RBC (4.19-5.50) M/mcL Hgb (12.9-16.9) g/dL Hct (37.5-50.1) % MCV (83.0-100.0) fL MCH (28.0-33.3) pg MCHC (31.6-35.5) g/dL RDW (11.5-14.5) % Plt Count (140-400) K/mcL MPV (9.4-12.4) fL Immature Gran % (0-4) % Seg Neutrophils % % Lymphocytes % % Monocytes % % Eosinophils % % Basophils % % Neutrophils # (1.6-8.9) K/mcL Lymphocytes # (0.6-4.6) K/mcL Monocytes # (0.0-1.3) K/mcL Eosinophils # (0.0-0.6) K/mcL Basophils # (0.0-0.2) K/mcL VBG pH 7.33 (7.32-7.42) pH Units VBG pCO2 51 (41-51) mmHg VBG pO2 59 H (25-50) mmHg VBG HCO3 27 (21-27) mEq/L Sodium Potassium Chloride Carbon Dioxide BUN Creatinine Est GFR ( Amer) Est GFR (Non-Af Amer) BUN/Creatinine Ratio Glucose Calculated Osmolality Lactic Acid 1.3 (0.5-2.2) mmol/L Calcium Magnesium Troponin I (< 0.04) ng/mL Beta-Hydroxybutyric Acd (0.02-0.27) mmol/L Specimen Rejected Miscellaneous 09/01/18 Range/Units 03:21 WBC (4.3-11.1) K/mcL RBC (4.19-5.50) M/mcL Hgb (12.9-16.9) g/dL Hct (37.5-50.1) % MCV (83.0-100.0) fL MCH (28.0-33.3) pg MCHC (31.6-35.5) g/dL RDW (11.5-14.5) % Plt Count (140-400) K/mcL MPV (9.4-12.4) fL Immature Gran % (0-4) % Seg Neutrophils % % Lymphocytes % % Monocytes % % Eosinophils % % Basophils % % Neutrophils # (1.6-8.9) K/mcL Lymphocytes # (0.6-4.6) K/mcL Monocytes # (0.0-1.3) K/mcL Eosinophils # (0.0-0.6) K/mcL Basophils # (0.0-0.2) K/mcL VBG pH (7.32-7.42) pH Units VBG pCO2 (41-51) mmHg VBG pO2 (25-50) mmHg VBG HCO3 (21-27) mEq/L Sodium 118 L* Potassium 4.5 Chloride 85 L Carbon Dioxide 25 BUN 41 H Creatinine 2.17 H Est GFR ( Amer) 37 L Est GFR (Non-Af Amer) 31 L BUN/Creatinine Ratio 19 Glucose 1104 H* Calculated Osmolality 312 H Lactic Acid (0.5-2.2) mmol/L Calcium 8.6 Magnesium 2.4 Troponin I (< 0.04) ng/mL Beta-Hydroxybutyric Acd (0.02-0.27) mmol/L Specimen Rejected - Radiology Data Radiology results reviewed: Yes I reviewed the patient's radiology results. Chest X-Ray 09/01/18 02:08 IMPRESSION: No pneumonia or any other acute cardiopulmonary abnormality. D/ / Livan Gamboa / Livan Gamboa Interpreting Provider: Livan Gamboa Femur X-Ray 09/01/18 02:08 IMPRESSION: No acute fracture of the left femur. D/ / Leonila Duong MD / Leonila Duong MD Interpreting Provider: Leonila Duong MD Forearm X-Ray 09/01/18 02:08 IMPRESSION: No acute osseous abnormality of the left forearm. D/ / Leonila Duong MD / Leonila Duong MD Interpreting Provider: Leonila Duong MD Hand X-Ray 09/01/18 02:08 IMPRESSION: No acute findings. D/ / Leonila Duong MD / Leonila Duong MD Interpreting Provider: Leonila Duong MD Tibia/Fibula X-Ray 09/01/18 02:08 IMPRESSION: Unremarkable right tib-fib radiographs. D/ / Leonila Duong MD / Leonila Duong MD Interpreting Provider: Leonila Duong MD - EKG Data EKG #1 EKG attestation: Yes I reviewed and interpreted this EKG. EKG results narrative: EKG shows a sinus bradycardia with ventricular rate of 53. There is minimal ST segment elevation in V2 and V3. No ST segment depressions. No ectopy. Critical Care Time Critical Care Time: Yes Total Critical Care Time: 35 Attestation: Critical care performed: Time is exclusive of separately billable procedures. Time includes: direct patient care, patient reassessment, coordination of patient care, interpretation of data (laboratory data, radiology data, and respiratory data), review of patient's medical records, medical consultation and documentation of patient care. Procedures included in critical care time: Procedures excluded from critical care time: Attestation Statement - Attestation Attestation: I, Lazarus Farrell MD, personally evaluated this patient and discussed their management with the resident physician. I reviewed the resident's note and agree with the documented findings, medical decision making, and plan of care. 63-year-old male with insulin-dependent diabetes presents to the emergency department by EMS with a complaint that his blood sugar has been running too high to read on his monitor for the past 3 weeks since he was discharged from a longterm. He also states that yesterday he had a fall. He reports that his legs just Weak and gave out on him causing him to fall. He denies any dizziness or syncope. No loss consciousness. He denies hitting his head. He complains of pain in his right arm and both legs from the fall. No chest pain or shortness of breath. On examination patient is a well-developed well-nourished male in no acute d istress. He is alert and oriented 3. There is no cyanosis or diaphoresis. Mucous membranes are very dry. Breath sounds are equal bilaterally. Heart regular with a mild bradycardia. Abdomen soft and nontender with normal bowel sounds. Some mild diffuse tenderness of the upper and lower extremities. No obvious deformity. Labs reviewed. Glucose 1104. Chest x-ray and extremity x-rays were all negative. EKG shows sinus bradycardia with no acute changes. Patient received IV fluids and regular insulin IV. The hospitalist, Dr. Ochoa, was consulted and accepted admission of the patient.
[2018-09-01] MEDS: 0.9 % Sodium Chloride 1,000 ML IVC SCH ×2 (04:37→05:23)
[2018-09-01 05:17] LABS: Bilirubin,Urine Negative (Negative); Blood,Urine Trace (Negative); Clarity,Urine Clear (Clear); Color,Urine Yellow (Yellow); Glucose,Urine (UA) >=1000 mg/dL (Normal); Ketones,Urine Negative (Negative); Leukocyte Esterase,Urine Negative (Negative); Nitrite,Urine Negative (Negative); Protein,Urine 100 mg/dL (Neg-Trace); Specific Gravity,Urine 1.025 (1.010-1.025); Urobilinogen,Urine Normal (Normal)
[2018-09-01 05:28] LABS: Hyaline Casts,Urine None Seen per lpf (None-Few)
[2018-09-01 05:29] LABS: Squamous Epithelial Cell,Urine None Seen per lpf (None-Few)
[2018-09-01 05:30] LABS: Bacteria,Urine None Seen per hpf (None-Few); RBC,Urine 0-3 per hpf (0-3); WBC,Urine 0-3 per hpf (0-3)
[2018-09-01] MEDS ORDERED: Naloxone 0.4 MG/ML INJ IVP PRN (06:11)
[2018-09-01] MEDS ORDERED: Insulin LISPRO 300 UNITS/3 ML VIAL SQ ONE (06:11)
[2018-09-01] MEDS ORDERED: D5% in 0.45% NACL w KCl 20 MEQ/1,000 ML MLS IVC PRN (06:11)
[2018-09-01] MEDS ORDERED: *HR* Dextrose 50 % in Water (Syg) 50 ML SYRINGE IVP PRN ×2 (06:11→16:03)
[2018-09-01] MEDS ORDERED: Insulin LISPRO 300 UNITS/3 ML VIAL SQ PRN (06:11)
[2018-09-01] MEDS ORDERED: Insulin Human Regular 100 UNIT in 0.9 % Sodium Chloride 100 ML IVC SCH (06:15)
[2018-09-01] MEDS ORDERED: Albuterol 2.5 MG/3 ML NEBULIZER IH PRN (06:15)
--- NOTE | 2018-09-01 06:25 | Internal Med History&Physical ---
<Mirna Padilla - Last Filed: 09/01/18 07:24> Date of Encounter: 09/01/18 Internal Medicine - H&P: HPI History of present illness: Mr. Regalado is a 63 year old male Internal Medicine - H&P: Meds Albuterol Neb [Proventil Neb] 2.5 mg IH Q4HR PRN 08/20/18 [History] Albuterol Sulfate [Ventolin Hfa] 2 puff IH Q6H PRN 08/20/18 [History] Aspirin 81 mg PO DAILY 08/20/18 [History] Atorvastatin [Lipitor] 40 mg PO HS 08/20/18 [History] Carvedilol [Coreg] 25 mg PO HS 08/20/18 [History] Cholecalciferol (Vitamin D3) [Vitamin D] 50,000 unit PO MÁRQUEZ 08/20/18 [History] Citalopram [CeleXA] 20 mg PO DAILY 08/20/18 [History] Enalapril Maleate [Vasotec] 10 mg PO DAILY 08/20/18 [History] Ferrous Sulfate 325 mg PO BID 08/20/18 [History] Fluticasone Propionate [Flovent Diskus] 100 mcg IH BID 08/20/18 [History] Furosemide [Lasix] 80 mg PO DAILY 08/20/18 [History] Gabapentin [Neurontin] 200 mg PO TID 08/20/18 [History] Insulin Glargine [Lantus] 60 unit SQ BID 08/20/18 [History] Insulin LISPRO [HumaLOG] 2 - 12 units SQ QID 08/20/18 [History] Insulin LISPRO [HumaLOG] 6 units SQ TIDWM 08/20/18 [History] Lactobacillus [Culturelle] 1 cap PO BID 08/20/18 [History] LevETIRAcetam [Keppra] 750 mg PO Q12H 08/20/18 [History] Magnesium Oxide [Magnesium] 400 mg PO BID 08/20/18 [History] Metformin HCl 500 mg PO BID 08/20/18 [History] Omeprazole [PriLOSEC] 20 mg PO DAILY 08/20/18 [History] Polyethylene Glycol 3350 [MiraLAX] 17 gm PO DAILY 08/20/18 [History] Pramipexole Di-HCl [Pramipexole Dihydrochloride] 0.125 mg PO HS 08/20/18 [History] Sennosides/Docusate Sodium [Senna-Docusate Sodium Tablet] 1 tab PO HS PRN 08/20/18 [History] Tiotropium [Spiriva] 18 mcg IH 0700 08/20/18 [History] Trazodone HCl 50 mg PO HS 08/20/18 [History] Vitamin B Complex [B Complex] 1 tab PO DAILY 08/20/18 [History] amLODIPine [Norvasc] 5 mg PO DAILY 08/20/18 [History] 3 Allergy/AdvReac Type Severity Reaction Status Date / Time acetaminophen Allergy Hives Verified 09/19/17 12:11 [From Darvocet-N] ibuprofen Allergy Hives Verified 09/19/17 12:11 propoxyphene Allergy Hives Verified 09/19/17 12:11 [From Darvocet-N] tramadol [From Ultram] Allergy Hives Verified 09/19/17 12:11 All Systems PM: A 10-system review of systems was performed and is negative for pertinent findings except as documented above in the HPI. - Constitutional Vitals: Temp Pulse Resp BP Pulse Ox 97.8 F 59 18 135/56 99 09/01/18 05:30 09/01/18 05:30 09/01/18 05:30 09/01/18 05:30 09/01/18 05:30 Internal Med - H&P Results - Labs CBC & Chem 7: 09/01/18 02:33 09/01/18 03:21 Labs: Short CBC 09/01/18 Range/Units 02:33 WBC 6.8 (4.3-11.1) K/mcL Hgb 11.9 L (12.9-16.9) g/dL Hct 34.7 L (37.5-50.1) % Plt Count 238 (140-400) K/mcL Neutrophils # 4.6 (1.6-8.9) K/mcL BMP 09/01/18 09/01/18 02:33 03:21 Sodium Cancelled 118 L* Potassium Cancelled 4.5 Chloride Cancelled 85 L Carbon Dioxide Cancelled 25 BUN Cancelled 41 H Creatinine Cancelled 2.17 H Glucose Cancelled 1104 H* Calcium Cancelled 8.6 Cardiac Enzymes 09/01/18 Range/Units 02:33 Troponin I < 0.03 (< 0.04) ng/mL Urine 09/01/18 Range/Units 05:01 Urine Color Yellow (Yellow) Urine Clarity Clear (Clear) Urine pH 6.0 (5.0-8.0) pH Units Ur Specific [place] 1.025 (1.010-1.025) Urine Protein 100 H (Neg-Trace) mg/dL Urine Glucose (UA) >=1000 H (Normal) mg/dL - ABG Interpretation ABG results: 09/01/18 02:46 VBG pH 7.33 VBG pCO2 51 VBG pO2 59 H VBG HCO3 27 - Impressions ITS Impressions Chest X-Ray 09/01/18 02:08 IMPRESSION: No pneumonia or any other acute cardiopulmonary abnormality. D/ / Livan Gamboa / Livan aGmboa Interpreting Provider: Livan Gamboa Femur X-Ray 09/01/18 02:08 IMPRESSION: No acute fracture of the left femur. D/ / Leonila Duong MD / Leonila Duong MD Interpreting Provider: Leonila Duong MD Forearm X-Ray 09/01/18 02:08 IMPRESSION: No acute osseous abnormality of the left forearm. D/ / Leonila Duong MD / Leonila Duong MD Interpreting Provider: Leonila Duong MD Forearm X-Ray 09/01/18 02:08 IMPRESSION: No acute fracture. D/ / Leonila Duong MD / Leonila Duong MD Interpreting Provider: Leonila Duong MD Hand X-Ray 09/01/18 02:08 IMPRESSION: No acute findings. D/ / Leonila Duong MD / Leonila Duong MD Interpreting Provider: Leonila Duong MD Tibia/Fibula X-Ray 09/01/18 02:08 IMPRESSION: Unremarkable right tib-fib radiographs. D/ / Leonila Duong MD / Leonila Duong MD Interpreting Provider: Leonila Duong MD - Time Spent With Patient Total time spent is greater than 50% in coordination of care (as documented) at patient's floor/unit and/or counseling patient: - Attending Attestation I performed a history and physical examination of the patient and discussed his management with the resident. I reviewed the resident's note and agree with the documented findings and plan of care. We will admit patient to the ICU for treatment of HHS and started on heparin drip. Patient subsequently endorsed transient left sided weakness of the upper and lower extremity which has since resolved which was not reported in the ED on admission. Please see history of present illness for further details. We will workup for possible TIA and obtain MRI in the morning in addition to echo and bilateral carotid duplex. <AnaidsamanthaRomeo - Last Filed: 09/01/18 08:18> Date of Encounter: 09/01/18 Time of Encounter: 06:00 Internal Medicine - H&P: HPI Chief complaint: Weakness Admitted From: Emergency Dept Plans for Post Hospital Care: Home History of present illness: Mr. Regalado is a 63 year old male with history of diabetes, COPD, CAD, arth ritis, depression, dementia who presents to the ED with complaint of high blood glucose, cough and congestion, pain in his limbs. The patient was recently admitted to [facility] for HHS approximately 3 weeks ago at which time he was also diagnosed with a COPD exacerbation. In fact, the patient has had many admissions recently for very similar complaints because the patient has run out of insulin and has not been able to fill his prescriptions. Primarily the patient complains of poor oral intake, dyspepsia, abdominal pain and weakness in his extremities. He does complain of specifically left-sided weakness on this occasion, and says that he was concerned he may be having a stroke due to weakness in the left lower extremity and left upper extremity. He says that this started approximately 7 PM but resolved on its own on his way to the hospital. In addition this he says that he is having left lower abdominal pain which is unremitting and is associated with nausea and vomiting. Nothing seems to help the pain nothing makes it worse. The pain has been pretty much constant since he was admitted about 3 weeks ago. He says that he has been checking his blood glucose at home and taking his NovoLog that he does not have any Lantus. His blood glucose meter at home just as high because it is unable to read the level. Finally, the patient does complain of falls at home due to weakness in his legs and has multiple wounds on his upper and lower extremities where he has scraped his arms. Most recently he says the fall was due to a mechanical fall in which he tripped over a rug by the door. In the ED, the patient did have labs which demonstrated a severe hyperglycemia with a blood glucose 1104, pseudohyponatremia with a blood sodium 118 and a corrected blood sodium 135. VBG was negative for acidosis. He was admitted to the ICU for workup and treatment of HHS. Past Med Surg Social Fam HX - Past Medical History Medical history: arthritis, COPD, dementia, diabetes, GERD, hepatitis, hyperlipidemia, hypertension, osteoporosis, renal disease, syncope Additional medical history: CHRONIC KIDNEY DISEASE, SMOKER, HEPATITIS, SYNCOPE, OSTEOPOROSIS Psychiatric history: anxiety, depression, panic disorder - Past Surgical History Surgical History: cataract, LE stent(s), orthopedic, other Additional surgical history: CATARACT, LLE FRACTURE, LLE STENT, HERNIA REPAIR - Social History Smoking Status: Current every day smoker Smokeless Tobacco Status: No Alcohol use: none Drug use: none - Family History Mother Family Member Ethnicity: Non- Living Status: Hx Family Cardiac Disorders: Yes Hx Family Respiratory Disorders: Yes Hx Family Cancer: Yes Hx Family GI Disorders: No Hx Family Endocrine Disorder: Yes Hx Family Neuromuscular Disorders: No Hx Family Neurologic Disorders: Yes Hx Family HEENT Disorders: No Hx Family Autoimmune Disorders: No Father Living Status: All Systems PM: A 10-system review of systems was performed and is negative for pertinent findings except as documented above in the HPI. Review of systems: Constitutional: Admits to generalized fatigue, chills, hot flashes, weakness Head/Neck: Denies JACOBS, neck stiffness EENT: Denies rhinorrhea, congestion, sore throat. Admits to visual disturbances CVS: Denies chest pain, palpitations, GALVEZ, orthopnea, edema, PND Pulm: Denies sputum, hemoptysis, wheezing. Admits to chronic cough with sputum production GI: Denies diarrhea, constipation, melena, hematemasis. Admits to nausea, vomiting, diarrhea : Denies dysuria, increased frequency, urgency, hematuria Heme: Denies ease of bleeding or bruising MSK: Denies joint pain, limited ROM Skin: Denies rashes, ulcers, color changes Neuro: Admits to left sided weakness - Constitutional Vitals: Temp Pulse Resp BP Pulse Ox 97.8 F 59 18 135/56 99 09/01/18 05:30 09/01/18 05:30 09/01/18 05:30 09/01/18 05:30 09/01/18 05:30 Exam: Gen: Vitals noted. No acute distress. Eyes: anicteric sclerae, moist conjunctivae; no lid-lag; Pupils equal and reactive to light HENT: Atraumatic; oropharynx clear with moist mucous membranes and no mucosal ulcerations; normal hard and soft palate Neck: Trachea midline; supple, no thyromegaly or lymphadenopathy Cardiac: RRR, no murmur, +S1/S2 Pulmonary: CTA bilaterally, no wheezes, rales or rhonchi, equal chest expansion Abdomen: soft, nontender, no guarding. No masses or hepatosplenomegaly MSK: ROM intact, no joint swelling noted Extremities: no BLE edema, nontender calf, no cyanosis or clubbing. Multiple digits missing in ble. Multiple breaks in skin as a result from falls. Skin: Normal temperature, turgor and texture; no rash, ulcers or subcutaneous nodules Neuro: moves all extremities, no focal deficits. Generally weak. Psych: Appropriate mood and behavior. A&Ox3 Internal Med - H&P Results - Labs CBC & Chem 7: 09/01/18 02:33 09/01/18 06:40 Labs: Short CBC 09/01/18 Range/Units 02:33 WBC 6.8 (4.3-11.1) K/mcL Hgb 11.9 L (12.9-16.9) g/dL Hct 34.7 L (37.5-50.1) % Plt Count 238 (140-400) K/mcL Neutrophils # 4.6 (1.6-8.9) K/mcL BMP 09/01/18 09/01/18 02:33 03:21 Sodium Cancelled 118 L* Potassium Cancelled 4.5 Chloride Cancelled 85 L Carbon Dioxide Cancelled 25 BUN Cancelled 41 H Creatinine Cancelled 2.17 H Glucose Cancelled 1104 H* Calcium Cancelled 8.6 Cardiac Enzymes 09/01/18 Range/Units 02:33 Troponin I < 0.03 (< 0.04) ng/mL Urine 09/01/18 Range/Units 05:01 Urine Color Yellow (Yellow) Urine Clarity Clear (Clear) Urine pH 6.0 (5.0-8.0) pH Units Ur Specific [place] 1.025 (1.010-1.025) Urine Protein 100 H (Neg-Trace) mg/dL Urine Glucose (UA) >=1000 H (Normal) mg/dL - ABG Interpretation ABG results: 09/01/18 02:46 VBG pH 7.33 VBG pCO2 51 VBG pO2 59 H VBG HCO3 27 - Impressions ITS Impressions Chest X-Ray 09/01/18 02:08 IMPRESSION: No pneumonia or any other acute cardiopulmonary abnormality. D/ / Livan Gamboa / Livan Gamboa Interpreting Provider: Livan Gamboa Femur X-Ray 09/01/18 02:08 IMPRESSION: No acute fracture of the left femur. D/ / Leonila Duong MD / Leonila Duong MD Interpreting Provider: Leonila Duong MD Forearm X-Ray 09/01/18 02:08 IMPRESSION: No acute osseous abnormality of the left forearm. D/ / Leonila Duong MD / Leonila Duong MD Interpreting Provider: Leonila Duong MD Forearm X-Ray 09/01/18 02:08 IMPRESSION: No acute fracture. D/ / Leonila Duong MD / Leonila Duong MD Interpreting Provider: Leonila Duong MD Hand X-Ray 09/01/18 02:08 IMPRESSION: No acute findings. D/ / Leonila Duong MD / Leonila Duong MD Interpreting Provider: Leonila Duong MD Tibia/Fibula X-Ray 09/01/18 02:08 IMPRESSION: Unremarkable right tib-fib radiographs. D/ / Leonila Duong MD / Leonila Duong MD Interpreting Provider: Leonila Duong MD - Assessment and plan (1) Hyperosmolar non-ketotic state in patient with type 2 diabetes mellitus Current Visit: Yes Status: Acute Assessment and plan: DM2 with HHS, Blood glucose 1108 on presentation The patient presents in [facility] regularly due to poor compliance with medications He is having nausea and vomiting as well as abdominal pain, likely secondary Fluid balance appears near normal, he does not appear to be profoundly volume depleted We will start insulin drip with fluid replacement per [facility] protocol Q2h BMPs NPO Diet (2) Unilateral weakness Current Visit: Yes Status: Acute Assessment and plan: Unilateral left sided weakness per patient, resolved States that it started at 7pm, resolved spontaneously. Asymptomatic at this time, benign exam Etiology likely secondary to severe hyperglycemia, however CVA/TIA remain in differential He does have significant risk factors for CVA, known vascular disease We will get Echo, B/L carotid doppler, MR Brain Loading dose ASA 325mg, continue statin Fall and aspiration precautions Consider neuro consult (3) Acute kidney injury superimposed on chronic kidney disease Current Visit: Yes Status: Acute Assessment and plan: Acute kidney injury on CKD3. Baseline GFR 35-40 Serum creatinine 2.17, eGFR 31 Likely prerenal in setting of HHS Replete volume per [facility] protocol Q2h BMP (4) COPD (chronic obstructive pulmonary disease) Current Visit: No Status: Chronic Assessment and plan: COPD without acute exacerbation Stable at this time, continue home meds PRN Duonebs Qualifiers: COPD type: unspecified COPD Qualified Code(s): J44.9 - Chronic obstructive pulmonary disease, unspecified (5) Hypertension Current Visit: No Status: Chronic Qualifiers: Hypertension type: essential hypertension Qualified Code(s): I10 - Essential (primary) hypertension (6) Tobacco abuse Current Visit: No Status: Chronic Assessment and plan: Will provide nicotine patches as needed (7) DVT prophylaxis Current Visit: Yes Status: Acute Assessment and plan: SQ Heparin - Time Spent With Patient Total time spent is greater than 50% in coordination of care (as documented) at patient's floor/unit and/or counseling patient:
[2018-09-01] MEDS ORDERED: Aspirin 325 MG TABLET PO ONE (07:20)
[2018-09-01 07:24] LABS: Calcium 8.2 mg/dL (8.6-10.3); Potassium 3.6 mEq/L (3.5-5.1)
[2018-09-01 07:25] LABS: Calcium 8.2 mg/dL (8.6-10.3); Potassium 3.7 mEq/L (3.5-5.1)
[2018-09-01] MEDS: 0.9 % Sodium Chloride w KCl 20 MEQ/1,000 ML MLS IVC SCH ×5 (07:42→12:12)
[2018-09-01] MEDS: levETIRAcetam 250 MG TABLET PO SCH ×2 (07:50→17:13)
[2018-09-01] MEDS: Magnesium Oxide 400 MG TABLET PO SCH ×2 (07:56→20:28)
[2018-09-01] MEDS: *HR* Heparin 5,000 UNIT/ML VIAL SQ SCH ×3 (07:56→23:32)
[2018-09-01] MEDS: Lisinopril 20 MG TABLET PO SCH (07:57)
[2018-09-01] MEDS: Furosemide 40 MG TABLET PO SCH (07:57)
[2018-09-01] MEDS: amLODIPine 5 MG TABLET PO SCH (07:57)
[2018-09-01] MEDS: Gabapentin 100 MG CAPSULE PO SCH ×3 (07:57→20:28)
[2018-09-01] MEDS ORDERED: Aspirin 81 MG TAB.CHEW PO SCH (09:00)
--- NOTE | 2018-09-01 09:40 | Internal Med Progress Note ---
<Ej Mann - Last Filed: 09/01/18 13:14> Hospitalist Progress Note - Encounter Date of Encounter: 09/01/18 - Exam Vitals: Temp Pulse Resp BP Pulse Ox 97.7 F 51 19 110/37 91 09/01/18 12:00 09/01/18 12:00 09/01/18 12:00 09/01/18 12:00 09/01/18 12:00 - Time Spent with Patient Total time spent is greater than 50% in coordination of care (as documented) at patient's floor/unit and/or counseling patient: Internal Medicine: Result - Labs CBC & Chem 7: 09/01/18 02:33 09/01/18 12:14 Labs: Short CBC 09/01/18 Range/Units 02:33 WBC 6.8 (4.3-11.1) K/mcL Hgb 11.9 L (12.9-16.9) g/dL Hct 34.7 L (37.5-50.1) % Plt Count 238 (140-400) K/mcL Neutrophils # 4.6 (1.6-8.9) K/mcL BMP 09/01/18 09/01/18 09/01/18 02:33 03:21 05:58 Sodium Cancelled 118 L* 126 L Potassium Cancelled 4.5 3.6 Chloride Cancelled 85 L 94 L Carbon Dioxide Cancelled 25 24 BUN Cancelled 41 H 38 H Creatinine Cancelled 2.17 H 2.12 H Glucose Cancelled 1104 H* 824 H* Calcium Cancelled 8.6 8.2 L 09/01/18 09/01/18 09/01/18 06:40 08:33 10:34 Sodium 127 L 129 L 129 L Potassium 3.7 3.3 L 3.3 L Chloride 94 L 96 L 100 Carbon Dioxide 25 23 19 L BUN 38 H 38 H 36 H Creatinine 2.13 H 2.05 H 1.87 H Glucose 751 H* 625 H* 284 H Calcium 8.2 L 8.3 L 7.9 L 09/01/18 12:14 Sodium 135 L Potassium 3.5 Chloride 102 Carbon Dioxide 26 BUN 35 H Creatinine 1.84 H Glucose 81 Calcium 7.9 L Cardiac Enzymes 09/01/18 Range/Units 02:33 Troponin I < 0.03 (< 0.04) ng/mL Urine 09/01/18 Range/Units 05:01 Urine Color Yellow (Yellow) Urine Clarity Clear (Clear) Urine pH 6.0 (5.0-8.0) pH Units Ur Specific [place] 1.025 (1.010-1.025) Urine Protein 100 H (Neg-Trace) mg/dL Urine Glucose (UA) >=1000 H (Normal) mg/dL - Impressions Impressions Chest X-Ray 09/01/18 02:08 IMPRESSION: No pneumonia or any other acute cardiopulmonary abnormality. D/ / Livan Gamboa / Livan Gamboa Interpreting Provider: Livan Gamboa Femur X-Ray 09/01/18 02:08 IMPRESSION: No acute fracture of the left femur. D/ / Leonila Duong MD / Leonila Duong MD Interpreting Provider: Leonila Duong MD Forearm X-Ray 09/01/18 02:08 IMPRESSION: No acute osseous abnormality of the left forearm. D/ / Leonila Duong MD / Leonila Duong MD Interpreting Provider: Leonila Duong MD Forearm X-Ray 09/01/18 02:08 IMPRESSION: No acute fracture. D/ / Leonila Duong MD / Leonila Duong MD Interpreting Provider: Leonila Duong MD Hand X-Ray 09/01/18 02:08 IMPRESSION: No acute findings. D/ / Leonila Duong MD / Leonila Duong MD Interpreting Provider: Leonila Duong MD Tibia/Fibula X-Ray 09/01/18 02:08 IMPRESSION: Unremarkable right tib-fib radiographs. D/ / Leonila Duong MD / Leonila Duong MD Interpreting Provider: Leonila Duong MD Consult Discharge Plan - Plan Referrals: Mark Coe MD [Primary Care Provider] - - Attending Attestation The history, physical exam, and medical decision making was performed by the medical student either while I was physically present and actively involved or I personally re-performed the exam and medical decision making. I have verified the accuracy of the medical student's documentation with regards to the history, physical exam findings, and medical decision making on 09/01/18. Mr Regalado was admitted early this AM for hyperosmolar state. Initial blood sugar was over 1100. Has responded to fluids and insulin drip. He is hungry now. Exam Alert Comfortable Mucus membranes dry Heart reg No wheeze abd soft Plan Transition to subqu insulin. Start diet PT/OT for discharge planning. Further diagnoses and plan as per H&P and above. <Serjio Jerez - Last Filed: 09/01/18 16:52> Hospitalist Progress Note - Encounter Date of Encounter: 09/01/18 Time of Encounter: 09:00 - Subjective Interval History: A 63 year old male presents to the ED with hyperglycemia, a cough and congestion, diarrhea, and pain from a recent fall. He has a past medical history of DM, HTN, hyperlipidemia, COPD, renal disease, GERD, arthritis, osteoporosis, dementia, and hepatitis. He states his sugar levels have been elevated the past 3 weeks. He also complained of L-sided weakness, which alleviated in route to the hospital. The patient fell yesterday and states he has pain everywhere, and has minor abrasions located on his L hand. The patient's blood glucose was 1104 upon admission. Is currently 751. Patient has a pseudohyponatremia, with a corrected sodium level of 135. Serum osmolality was 312 upon admission. Is currently 309. In ED, patient received a fluid bolus and 10 units of IV insulin. He was admitted to the ICU for workup and treatment of HHS. A CXR was done and was negative for pneumonia or any abnormality. X-rays of the femur, forearm, hand, tibia, and fibula were also performed for his fall, which were negative for any acute fracture. An EKG was performed and showed normal sinus rhythm. A brain MRI, echo, and carotid doppler are pending. Patient was evaluated at bedside and admits to hot and cold flashes, fatigue, SOB, cough, wheezing, congestion, diarrhea, nausea, and pain in his extremities and L side from his fall. Patient denies any chest pain, palpitations, vomiting, trouble urinating, numbness, or tingling. - Exam Vitals: Temp Pulse Resp BP Pulse Ox 97.5 F L 56 22 168/86 97 09/01/18 07:15 09/01/18 08:00 09/01/18 08:00 09/01/18 08:00 09/01/18 08:00 Exam: Gen: patient alert and oriented. In no acute distress Head: normocephalic, atraumatic. Neck: soft, supple, trachea midline. No lymphadenopathy. CV: RRR, normal S1 and S2. No murmurs, gallop, or rubs. Resp: Wheezes present bilaterally in both lung acharya. CTA bilaterally with full breath sounds, symmetric thorax. No rhonchi or rales noted. GI: soft, non-tender, non-distended. BSx4. No hepatomegaly, splenomegaly, ecchymoses, or lesions. Extremities: radial and posterior tibial pulses +2. Neuro: A/Ox3. Patient able to move all extremities. - Assessment and Plan (1) Hyperosmolar non-ketotic state in patient with type 2 diabetes mellitus Current Visit: Yes Status: Acute Assessment and Plan: Patient has presented with HHS multiple times in the past from non-compliance with his medications. Blood glucose was 1104 on admission. Is currently 110s-130s. Normal anion gap Plan: -Patient's insulin drip has been stopped since blood glucose levels are below 250. Basal insulin and sliding scale insulin was started. -Diabetic diet -Acuchecks -Social work consulted (2) Unilateral weakness Current Visit: Yes Status: Acute Assessment and Plan: Left sided weakness may be a side effect of the HHS. Patient reported a conflicting history of whether his weakness was right or left sided, but indicates he has had it for a long time. PE rules out a stroke. The patient had normal bilateral upper and lower extremity strength and sensation. He also spoke well. Plan: -A brain MRI, carotid doppler, and echo have been ordered. Results pending. -Will also have PTOT see him. (3) Acute kidney injury superimposed on chronic kidney disease Current Visit: Yes Status: Acute Assessment and Plan: GFR was 31 upon admission. Is now 32. Baseline is between a stage 3a and 3b kidney disease BUN was 41 upon admission. Is now 38. Creatinine was 2.17 upon admission. Is now 2.13. For urinalysis, the urine showed a protein level of 100, a glucose level of 1000, and showed trace blood. Etiology of DANY is either secondary to prerenal hypovolemia, or this is now the patient's baseline GFR from uncontrolled DM. Plan: -IV fluids were given -Monitor Is and Os -Monitor serum glucose -Avoid nephrotoxic meds (4) COPD (chronic obstructive pulmonary disease) Current Visit: No Status: Chronic Assessment and Plan: Continue COPD home medication schedule. (5) Hypertension Current Visit: No Status: Chronic Assessment and Plan: Continue amlodipine per schedule. DVT Prophylaxis: 5,000 units SQ heparin q8hrs - Time Spent with Patient Total time spent is greater than 50% in coordination of care (as documented) at patient's floor/unit and/or counseling patient: Internal Medicine: Result - Labs CBC & Chem 7: 09/01/18 02:33 09/01/18 12:14 Labs: Short CBC 09/01/18 Range/Units 02:33 WBC 6.8 (4.3-11.1) K/mcL Hgb 11.9 L (12.9-16.9) g/dL Hct 34.7 L (37.5-50.1) % Plt Count 238 (140-400) K/mcL Neutrophils # 4.6 (1.6-8.9) K/mcL BMP 09/01/18 09/01/18 09/01/18 02:33 03:21 05:58 Sodium Cancelled 118 L* 126 L Potassium Cancelled 4.5 3.6 Chloride Cancelled 85 L 94 L Carbon Dioxide Cancelled 25 24 BUN Cancelled 41 H 38 H Creatinine Cancelled 2.17 H 2.12 H Glucose Cancelled 1104 H* 824 H* Calcium Cancelled 8.6 8.2 L 09/01/18 06:40 Sodium 127 L Potassium 3.7 Chloride 94 L Carbon Dioxide 25 BUN 38 H Creatinine 2.13 H Glucose 751 H* Calcium 8.2 L Cardiac Enzymes 09/01/18 Range/Units 02:33 Troponin I < 0.03 (< 0.04) ng/mL Urine 09/01/18 Range/Units 05:01 Urine Color Yellow (Yellow) Urine Clarity Clear (Clear) Urine pH 6.0 (5.0-8.0) pH Units Ur Specific [place] 1.025 (1.010-1.025) Urine Protein 100 H (Neg-Trace) mg/dL Urine Glucose (UA) >=1000 H (Normal) mg/dL - Impressions Impressions Chest X-Ray 09/01/18 02:08 IMPRESSION: No pneumonia or any other acute cardiopulmonary abnormality. D/ / Livan Gamboa / Livan Gamboa Interpreting Provider: Livan Gamboa Femur X-Ray 09/01/18 02:08 IMPRESSION: No acute fracture of the left femur. D/ / Leonila Duong MD / Leonila Duong MD Interpreting Provider: Leonila Duong MD Forearm X-Ray 09/01/18 02:08 IMPRESSION: No acute osseous abnormality of the left forearm. D/ / Leonila Duong MD / Leonila Duong MD Interpreting Provider: Leonila Duong MD Forearm X-Ray 09/01/18 02:08 IMPRESSION: No acute fracture. D/ / Leonila Duong MD / Leonila Duong MD Interpreting Provider: Leonila Duong MD Hand X-Ray 09/01/18 02:08 IMPRESSION: No acute findings. D/ / Leonila Duong MD / Leonila Duong MD Interpreting Provider: Leonila Duong MD Tibia/Fibula X-Ray 09/01/18 02:08 IMPRESSION: Unremarkable right tib-fib radiographs. D/ / Leonila Duong MD / Leonila Duong MD Interpreting Provider: Leonila Duong MD <Serjio Jerez W - Last Filed: 09/01/18 16:52> (4) COPD (chronic obstructive pulmonary disease) Qualifiers: COPD type: unspecified COPD Qualified Code(s): J44.9 - Chronic obstructive pulmonary disease, unspecified (5) Hypertension Qualifiers: Hypertension type: essential hypertension Qualified Code(s): I10 - Essential (primary) hypertension
[2018-09-01 09:58] LABS: Calcium 8.3 mg/dL (8.6-10.3); Potassium 3.3 mEq/L (3.5-5.1)
[2018-09-01] MEDS ORDERED: Beclomethasone 80mcg MDI IH SCH (10:00)
[2018-09-01] MEDS: Tiotropium 18 MCG inhalation IH SCH (10:46)
[2018-09-01 11:13] LABS: Calcium 7.9 mg/dL (8.6-10.3); Potassium 3.3 mEq/L (3.5-5.1)
[2018-09-01 13:07] LABS: Calcium 7.9 mg/dL (8.6-10.3); Potassium 3.5 mEq/L (3.5-5.1)
[2018-09-01] MEDS ORDERED: Perflutren Lipid Microsphere 1.3 ML in 0.9 % Sodium Chloride 8.7 ML IVP ONE (15:16)
[2018-09-01] MEDS ORDERED: Dextrose Gel 15 GM/37.5 ML TUBE PO PRN (16:03)
[2018-09-01] MEDS ORDERED: D5% in Water 1,000 ML IVC PRN (16:03)
[2018-09-01] MEDS ORDERED: Beer can PO SCH (17:00)
[2018-09-01] MEDS ORDERED: Insulin LISPRO 300 UNITS/3 ML VIAL SQ SCH (18:00)
[2018-09-01] MEDS: MOMETASONE FUROATE 100 mcg Inhaler IH SCH (20:27)
[2018-09-01] MEDS: traZODone 50 MG TABLET PO SCH (20:29)
[2018-09-01] MEDS: Insulin LISPRO 300 UNITS/3 ML VIAL SQ SCH (20:30)
[2018-09-01] MEDS ORDERED: Insulin DETEMIR 100 UNIT/ML X5UNITS SQ SCH (21:00)
[2018-09-02] MEDS: levETIRAcetam 250 MG TABLET PO SCH ×2 (05:24→17:58)
[2018-09-02 05:35] LABS: Basophils # 0.1 K/mcL (0.0-0.2); Basophils % 0.7 %; Eosinophils # 0.6 K/mcL (0.0-0.6); Eosinophils % 7.5 %; Hematocrit 27.3 % (37.5-50.1); Immature Granulocytes % 0.5 % (0-4); Lymphocytes # 2.5 K/mcL (0.6-4.6); Lymphocytes % 30.7 %; Mean Corpuscular HGB Conc 36.6 g/dL (31.6-35.5); Mean Corpuscular Hemoglobin 29.9 pg (28.0-33.3); Mean Corpuscular Volume 81.7 fL (83.0-100.0); Mean Platelet Volume 9.6 fL (9.4-12.4); Monocytes # 0.5 K/mcL (0.0-1.3); Monocytes % 5.6 %; Neutrophils # 4.5 K/mcL (1.6-8.9); Platelet Count 221 K/mcL (140-400); Red Blood Count 3.34 M/mcL (4.19-5.50); Red Cell Distribution Width 13.1 % (11.5-14.5)
[2018-09-02 06:38] LABS: Chol/HDL Ratio 12.2 (0-4.9); Cholesterol 268 mg/dL (< 200); HDL Cholesterol 22 mg/dL (40-59); Triglycerides 1926 mg/dL (< 150)
[2018-09-02 06:52] LABS: LDL Cholesterol,Direct 25 mg/dL (75-193)
[2018-09-02 06:56] LABS: Calcium 7.8 mg/dL (8.6-10.3); Magnesium 2.2 mg/dL (1.6-2.6)
[2018-09-02] MEDS ORDERED: Insulin LISPRO 300 UNITS/3 ML VIAL SQ SCH (07:30)
[2018-09-02] MEDS: Furosemide 40 MG TABLET PO SCH (07:43)
[2018-09-02] MEDS: *HR* Heparin 5,000 UNIT/ML VIAL SQ SCH ×2 (07:43→16:14)
[2018-09-02] MEDS: Magnesium Oxide 400 MG TABLET PO SCH (07:43)
[2018-09-02] MEDS: Gabapentin 100 MG CAPSULE PO SCH ×3 (07:43→20:57)
[2018-09-02] MEDS: Lisinopril 20 MG TABLET PO SCH (07:43)
[2018-09-02] MEDS: amLODIPine 5 MG TABLET PO SCH (07:43)
[2018-09-02] MEDS: Insulin LISPRO 300 UNITS/3 ML VIAL SQ SCH ×6 (07:44→20:59)
[2018-09-02] MEDS ORDERED: Insulin DETEMIR 100 UNIT/ML X5UNITS SQ ONE (08:33)
[2018-09-02] MEDS ORDERED: Insulin DETEMIR 100 UNIT/ML X5UNITS SQ SCH (09:00)
[2018-09-02] MEDS: Tiotropium 18 MCG inhalation IH SCH (09:55)
[2018-09-02] MEDS: MOMETASONE FUROATE 100 mcg Inhaler IH SCH ×2 (09:55→21:53)
[2018-09-02] MEDS ORDERED: *HR* LORazepam 2 MG/ML VIAL IVP ONE (11:24)
[2018-09-02] MEDS: Nicotine 7 MG PATCH.TD24 TD SCH (12:15)
[2018-09-02] MEDS: Fenofibrate 54 MG TABLET PO SCH (12:17)
[2018-09-02] MEDS: Aspirin 81 MG TAB.CHEW PO SCH (12:17)
--- NOTE | 2018-09-02 13:20 | Internal Med Progress Note ---
<Sharron Donis - Last Filed: 09/02/18 13:20> Hospitalist Progress Note - Encounter Date of Encounter: 09/02/18 - Exam Vitals: Temp Pulse Resp BP Pulse Ox 98.1 F 60 18 131/70 98 09/02/18 11:30 09/02/18 11:30 09/02/18 11:30 09/02/18 11:30 09/02/18 09:55 - Time Spent with Patient Total time spent is greater than 50% in coordination of care (as documented) at patient's floor/unit and/or counseling patient: Internal Medicine: Result - Labs CBC & Chem 7: 09/02/18 05:00 09/02/18 05:00 Labs: Short CBC 09/02/18 Range/Units 05:00 WBC 8.1 (4.3-11.1) K/mcL Hgb 10.0 L D (12.9-16.9) g/dL Hct 27.3 L (37.5-50.1) % Plt Count 221 (140-400) K/mcL Neutrophils # 4.5 (1.6-8.9) K/mcL BMP 09/02/18 05:00 Sodium 126 L D Potassium 4.0 Chloride 96 L Carbon Dioxide 23 BUN 36 H Creatinine 2.27 H Glucose 455 H Calcium 7.8 L Consult Discharge Plan - Plan Referrals: Mark Coe MD [Primary Care Provider] - (sent web request on 09-02-18 @ 1 149) - Attending Attestation The history, physical exam, and medical decision making was performed by medical student Solitario either while I was physically present and actively involved or I personally re-performed the exam and medical decision making. I have verified the accuracy of the medical student's documentation with regards to the history, physical exam findings, and medical decision making. Mr Regalado was admitted with HHNK and unilateral weakness with unclear timeline as to onset of symptoms with varying reports given to staff this admit. Awake, pleasant. Feeling better with bs in 400s as opposed to 1000s. No n/v/abd pain. No presyncope. Denies any further ext weakness, no speech or vision changes, no dysphagia. Denies cp, pressure, sob. gen- alert, awake,appears stated age eyes- pupils equal round , eom intact cv- reg rate and rhythm, normal s1,s2, no murmurs appreciated, no le edema lungs- ctabl, no wheezing, rhonchi or crackles, norm resp effort abd- soft, non tender, non distended, + bs neuro- AAOx3, CN grossly intact, no focal deficits, ext strength 5/5 throughout, sensation intact and equal to lt touch throughout. HHNK- bs improving, lantus 60 bid at home but hx of hypoglycemia on that regimen + ADA diet here, currently 40 units levemir bid, lispro TID AC and SSI, will cont to adjust Pseudohyponatremia- na adjusts to 132-135 with correction for glucose, cont to monitor Unilateral weakness- conflicting history (right sided vs left sided, noting now has had it for a long time)- was not a tpa candidate for this reason and admitting exam normal-shahzad mri pending, carotid us pending, echo without pfo or clot, asa + statin, pt/ot, he was not palced on permissive htn by previous provi ders and remains asx Hypercholesterolemia Hypertriglyceridemia, chronic- remains significantly elevated in 1100s, hx of near same- begin fenofibrate, cont statin Chronic anemia, appears to ahve baseline anywhere from 8-12, 10 here, no active bleeding- cont to monitor, will require outpt fu for further work up /management outpt DANY on CKD- ckd stage III- suspect pre renal in setting of HHNK- hold lasix and aci, cont to monitor, avoid nephro toxins dipso- pt/ot rec for snf and pt agreeable, sw working on placement <Serjio Jerez - Last Filed: 09/02/18 14:56> Hospitalist Progress Note - Encounter Date of Encounter: 09/02/18 Time of Encounter: 09:30 - Subjective Interval History: A 63 year old male presents to the ED with hyperglycemia, a cough and congestion, diarrhea, and pain from a recent fall. Patient was evaluated at bedside and admits to dizziness, SOB, cough, and wheezing. He denies fatigue, fevers, chest pain, palpitations, nausea, vomiting, diarrhea, polyuria, dysuria, blood in the urine, muscle pain, joint pain, n umbness, tingling, and also denies any weakness today. - Exam Vitals: Temp Pulse Resp BP Pulse Ox 98.1 F 60 18 131/70 98 09/02/18 11:30 09/02/18 11:30 09/02/18 11:30 09/02/18 11:30 09/02/18 09:55 Exam: Gen: patient A/Ox3. In no acute distress. CV: RRR, normal S1 and S2. No murmurs, gallop, or rubs. Resp: wheezes present bilaterally in both lung acharya. CTA bilaterally with full breath sounds, symmetric thorax. No rhonchi or rales noted. GI: soft, non-tender, non-distended. BSx4. No hepatomegaly, splenomegaly, ecchymoses, or lesions. Extremities: radial and posterior tibial pulses +2. No LE edema. No rashes. Neuro: patient able to move all extremities. Sensation and strength normal in upper and lower extremities bilaterally. - Assessment and Plan (1) Hyperosmolar non-ketotic state in patient with type 2 diabetes mellitus Current Visit: Yes Status: Acute Assessment and Plan: Patient has presented with HHS multiple times in the past from non-compliance with his medications. Blood glucose was 1104 on admission. Is currently 455. Corrected sodium is 130.8 Normal anion gap Patient's insulin drip has been stopped since blood glucose levels are below 250. Basal insulin and sliding scale insulin was started. Plan: -Insulin was bumped up to 40mg BID detemir -Diabetic diet -Acuchecks -Social work consulted (2) Unilateral weakness Current Visit: Yes Status: Acute Assessment and Plan: Left sided weakness may be a side effect of the HHS. Patient originally reported a conflicting history of whether his weakness was right or left sided, but indicates he has had it for a long time. PE rules out a stroke. The patient had normal bilateral upper and lower extremity strength and sensation. He also spoke well. On 09/02/18 patient says he no longer has weakness on either side. An echo was ordered and was negative for findings concerning of a stroke. A carotid doppler was ordered and showed bilateral carotid system having nonstenotic plaques. Plan: -A brain MRI has been ordered and results are pending. -Will also have PTOT see him. (3) Acute kidney injury superimposed on chronic kidney disease Current Visit: Yes Status: Acute Assessment and Plan: GFR was 31 upon admission. Is now 29. Baseline is between stage 3a and 3b kidney disease. BUN was 41 upon admission. Is now 36. Creatinine was 2.17 upon admission. Is now 2.27. For urinalysis, the urine showed a protein level of 100, a glucose level of 1000, and showed trace blood. Etiology of DANY is either secondary to prerenal hypovolemia, or this is now the patient's baseline GFR from uncontrolled DM. Hold lisinopril and lasix. Plan: -IV fluids were given -Monitor Is and Os -Monitor serum glucose -Avoid nephrotoxic meds -Renal dose medications (4) COPD (chronic obstructive pulmonary disease) Current Visit: No Status: Chronic Assessment and Plan: COPD is controlled. Continue COPD home medication schedule. (5) Hypertension Current Visit: No Status: Chronic Assessment and Plan: HTN is controlled. Continue amlodipine per schedule. (6) Hypertriglyceridemia Current Visit: No Status: Chronic Assessment and Plan: Patient's triglyceride level was high at 1926. Plan: -Begin fenofibrate 135mg PO daily (7) Tobacco abuse Current Visit: No Status: Chronic Assessment and Plan: Plan: -Begin nicoderm 7mg TD daily (8) DVT prophylaxis Current Visit: Yes Status: Acute DVT Prophylaxis: 5,000 units SQ heparin q8hrs - Time Spent with Patient Total time spent is greater than 50% in coordination of care (as documented) at patient's floor/unit and/or counseling patient: Internal Medicine: Result - Labs CBC & Chem 7: 09/02/18 05:00 09/02/18 05:00 Labs: Short CBC 09/02/18 Range/Units 05:00 WBC 8.1 (4.3-11.1) K/mcL Hgb 10.0 L D (12.9-16.9) g/dL Hct 27.3 L (37.5-50.1) % Plt Count 221 (140-400) K/mcL Neutrophils # 4.5 (1.6-8.9) K/mcL BMP 09/02/18 05:00 Sodium 126 L D Potassium 4.0 Chloride 96 L Carbon Dioxide 23 BUN 36 H Creatinine 2.27 H Glucose 455 H Calcium 7.8 L <Serjio Jerez W - Last Filed: 09/02/18 14:56> (4) COPD (chronic obstructive pulmonary disease) Qualifiers: COPD type: unspecified COPD Qualified Code(s): J44.9 - Chronic obstructive pulmonary disease, unspecified (5) Hypertension Qualifiers: Hypertension type: essential hypertension Qualified Code(s): I10 - Essential (primary) hypertension
--- NOTE | 2018-09-02 14:31 | Physician Discharge Referral ---
ExtendedCare Referral Info Provider in Charge after Transfer: PCP Institutional Level of Care: Intermediate - Diagnosis (1) CKD (chronic kidney disease) Priority: Secondary Status: Chronic (2) Hyperosmolar non-ketotic state in patient with type 2 diabetes mellitus Priority: Primary Status: Acute (3) Unilateral weakness Priority: Secondary Status: Acute (4) Anemia Priority: Secondary Status: Chronic (5) DANY (acute kidney injury) Priority: Secondary Status: Acute (6) Dyslipidemia Priority: Secondary Status: Chronic Prognosis: Good - Transfer Medications Home Medications: Albuterol Neb [Proventil Neb] 2.5 mg IH Q6H 08/20/18 [History] Albuterol Sulfate [Ventolin Hfa] 2 puff IH Q6H PRN 08/20/18 [History] Atorvastatin [Lipitor] 40 mg PO HS 08/20/18 [History] Carvedilol [Coreg] 25 mg PO BID 08/20/18 [History] Cholecalciferol (Vitamin D3) [Vitamin D] 50,000 unit PO MÁRQUEZ 08/20/18 [History] Citalopram [CeleXA] 20 mg PO DAILY 08/20/18 [History] Enalapril Maleate [Vasotec] 10 mg PO QPM 08/20/18 [History] Ferrous Sulfate 325 mg PO BID 08/20/18 [History] Fluticasone Propionate [Flovent Diskus] 1 puff IH BID 08/20/18 [History] Furosemide [Lasix] 80 mg PO DAILY 08/20/18 [History] Gabapentin [Neurontin] 200 mg PO TID 08/20/18 [History] Insulin Glargine [Lantus] 60 unit SQ BID 08/20/18 [History] Insulin LISPRO [HumaLOG] 0 - 12 units SQ QID 08/20/18 [History] Insulin LISPRO [HumaLOG] 6 units SQ TIDWM 08/20/18 [History] Lactobacillus [Culturelle] 1 cap PO BID 08/20/18 [History] LevETIRAcetam [Keppra] 750 mg PO Q12H 08/20/18 [History] Magnesium Oxide [Magnesium] 400 mg PO BID 08/20/18 [History] Metformin HCl 500 mg PO BID 08/20/18 [History] Omeprazole [PriLOSEC] 20 mg PO DAILY 08/20/18 [History] Polyethylene Glycol 3350 [MiraLAX] 17 gm PO DAILY 08/20/18 [History] Pramipexole Di-HCl [Pramipexole Dihydrochloride] 0.125 mg PO HS 08/20/18 [History] Sennosides/Docusate Sodium [Senna-Docusate Sodium Tablet] 1 tab PO HS PRN 08/20/18 [History] Tiotropium [Spiriva] 2 puff IH DAILY 08/20/18 [History] Trazodone HCl 50 mg PO HS 08/20/18 [History] Vitamin B Complex [B Complex] 1 tab PO DAILY 08/20/18 [History] amLODIPine [Norvasc] 5 mg PO QAM 08/20/18 [History] Allergies/Adverse Reactions: Allergy/AdvReac Type Severity Reaction Status Date / Time acetaminophen Allergy Hives Verified 09/19/17 12:11 [From Darvocet-N] ibuprofen Allergy Hives Verified 09/19/17 12:11 propoxyphene Allergy Hives Verified 09/19/17 12:11 [From Darvocet-N] tramadol [From Ultram] Allergy Hives Verified 09/19/17 12:11 - Respiratory Orders None Smoking Cessation: Smoking cessation has been advised. For more information, call the [place] Tobacco Quit Line at 8-057-ONXYNOW. - Advance Directives Code Status: Full Code CERTIFICATION: I certify that the transfer of the above named patient to an Extended Care Facility is necessary for the continuing treatment of the diagnosis listed. The above information is true and accurate reflection of patient's current condition. Confidential - Redisclosure prohibited without a patient's written consent.
[2018-09-02] MEDS ORDERED: *HR* LORazepam 2 MG/ML VIAL IVP PRN (15:00)
[2018-09-02] MEDS: Insulin DETEMIR 100 UNIT/ML X5UNITS SQ SCH (20:58)
[2018-09-02] MEDS: traZODone 50 MG TABLET PO SCH (20:58)
[2018-09-03] MEDS: *HR* Heparin 5,000 UNIT/ML VIAL SQ SCH ×4 (00:58→23:56)
[2018-09-03 04:13] LABS: Calcium 8.1 mg/dL (8.6-10.3); Potassium 4.5 mEq/L (3.5-5.1)
[2018-09-03 04:42] LABS: Basophils # 0.1 K/mcL (0.0-0.2); Basophils % 0.9 %; Eosinophils # 0.6 K/mcL (0.0-0.6); Eosinophils % 7.4 %; Hematocrit 29.6 % (37.5-50.1); Immature Granulocytes % 0.7 % (0-4); Lymphocytes # 2.5 K/mcL (0.6-4.6); Lymphocytes % 33.4 %; Mean Corpuscular Volume 82.7 fL (83.0-100.0); Mean Platelet Volume 9.7 fL (9.4-12.4); Monocytes # 0.5 K/mcL (0.0-1.3); Monocytes % 6.6 %; Neutrophils # 3.9 K/mcL (1.6-8.9); Platelet Count 257 K/mcL (140-400); Red Blood Count 3.58 M/mcL (4.19-5.50); Red Cell Distribution Width 13.4 % (11.5-14.5)
[2018-09-03 05:18] LABS: Hemoglobin 10.8 g/dL (12.9-16.9); Mean Corpuscular Hemoglobin 30.2 pg (28.0-33.3)
[2018-09-03 05:19] LABS: Mean Corpuscular HGB Conc 36.5 g/dL (31.6-35.5)
[2018-09-03] MEDS: levETIRAcetam 250 MG TABLET PO SCH ×2 (05:49→17:55)
[2018-09-03] MEDS: MOMETASONE FUROATE 100 mcg Inhaler IH SCH ×2 (07:43→20:47)
[2018-09-03] MEDS: Tiotropium 18 MCG inhalation IH SCH (07:44)
[2018-09-03] MEDS: Aspirin 81 MG TAB.CHEW PO SCH (08:13)
[2018-09-03] MEDS: Gabapentin 100 MG CAPSULE PO SCH ×3 (08:13→20:33)
[2018-09-03] MEDS: Fenofibrate 54 MG TABLET PO SCH (08:13)
[2018-09-03] MEDS: Insulin DETEMIR 100 UNIT/ML X5UNITS SQ SCH ×2 (08:14→20:33)
[2018-09-03] MEDS: Insulin LISPRO 300 UNITS/3 ML VIAL SQ SCH ×7 (08:14→20:35)
[2018-09-03] MEDS: Nicotine 7 MG PATCH.TD24 TD SCH (08:15)
[2018-09-03] MEDS: amLODIPine 5 MG TABLET PO SCH (08:16)
[2018-09-03] MEDS ORDERED: Insulin DETEMIR 100 UNIT/ML X5UNITS SQ ONE (09:53)
--- NOTE | 2018-09-03 14:11 | Electrocardiograph Report ---
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
--- NOTE | 2018-09-03 14:33 | Internal Med Progress Note ---
<Sharron Donis - Last Filed: 09/03/18 15:55> Hospitalist Progress Note - Encounter Date of Encounter: 09/03/18 - Exam Vitals: Temp Pulse Resp BP Pulse Ox 98.1 F 60 18 143/77 95 09/03/18 11:15 09/03/18 11:15 09/03/18 11:15 09/03/18 11:15 09/03/18 07:46 - Time Spent with Patient Total time spent is greater than 50% in coordination of care (as documented) at patient's floor/unit and/or counseling patient: Internal Medicine: Result - Labs CBC & Chem 7: 09/03/18 03:35 09/03/18 03:35 Labs: Short CBC 09/03/18 Range/Units 03:35 WBC 7.6 (4.3-11.1) K/mcL Hgb 10.8 L (12.9-16.9) g/dL Hct 29.6 L (37.5-50.1) % Plt Count 257 (140-400) K/mcL Neutrophils # 3.9 (1.6-8.9) K/mcL BMP 09/03/18 03:35 Sodium 129 L Potassium 4.5 Chloride 99 Carbon Dioxide 22 L BUN 47 H Creatinine 2.52 H Glucose 388 H Calcium 8.1 L - Impressions Impressions Brain MRI 09/01/18 06:32 IMPRESSION: 1. No acute intracranial abnormality within limits of motion artifact. 2. 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 D/ / Bobby Villa / Bobby Villa Interpreting Provider: Bobby Villa Consult Discharge Plan - Plan Referrals: Mark Coe MD [Primary Care Provider] - 09/10/18 9:45 am () - Attending Attestation The history, physical exam, and medical decision making was performed by medical lea Jerez either while I was physically present and actively involved or I personally re-performed the exam and medical decision making. I have verified the accuracy of the medical student's documentation with regards to the history, physical exam findings, and medical decision making. Mr Regalado was admitted with HHNK and unilateral weakness with unclear timeline as to onset of symptoms with varying reports given to staff this admit. He was negative for acute stroke. Awake, pleasant.continues to feel better, back to baseline. no n/v/abd pain, gluc levels starting to down trend. educated not to take ice creams and marlo as this is not part of his diet plan. notified he is not permitted to go outside and smoke. denies and left sided weakness or new weakness/numbness/tingling gen- alert, awake,appears stated age cv- reg rate and rhythm, normal s1,s2, no murmurs appreciated, no le edema lungs- ctabl, no wheezing, rhonchi or crackles, norm resp effort neuro- AAOx3, CN grossly intact, no focal deficits, HHNK- bs improving, lantus 60 bid at home but hx of hypoglycemia on that regimen + ADA diet here, increase levemir bid, lispro TID AC and SSI, will cont to adjust Pseudohyponatremia- na adjusts with correction for glucose, cont to monitor Unilateral weakness, resolved- conflicting history (right sided vs left sided, noting now has had it for a long time)- was not a tpa candidate for this reason and admitting exam normal-mri brain remote lacunar infarct, carotid us no significant stenoses, echo without pfo or clot, asa + statin, pt/ot Hypercholesterolemia Hypertriglyceridemia, chronic- remains significantly elevated in 1100s, hx of near same- fenofibrate, cont statin Chronic anemia, appears to have baseline anywhere from 8-12, 10 here, no active bleeding- cont to monitor, will require outpt fu for further work up /management outpt DANY on CKD- ckd stage III- suspect pre renal in setting of HHNK- hold lasix and aci (today is gold day as had received yesterday doses when cancelled), cont to monitor, avoid nephro toxins dipso- pt/ot rec for snf and pt agreeable, sw working on placement <Serjio Jerez - Last Filed: 09/03/18 16:53> Hospitalist Progress Note - Encounter Date of Encounter: 09/03/18 Time of Encounter: 09:45 - Subjective Interval History: A 63 year old male presents to the ED 2 days ago with hyperglycemia, a cough and congestion, diarrhea, and pain from a recent fall. Patient was evaluated at bedside and admits to a cough and wheezing, which he states is normal. He denies fatigue, fevers, chest pain, palpitations, SOB, nausea, vomiting, diarrhea, blood in the stool, polyuria, dysuria, blood in the urine, muscle pain, joint pain, weakness, numbness, tingling, and paralysis. - Exam Vitals: Temp Pulse Resp BP Pulse Ox 98.1 F 60 18 143/77 95 09/03/18 11:15 09/03/18 11:15 09/03/18 11:15 09/03/18 11:15 09/03/18 07:46 Exam: Gen: A/Ox3. In no acute distress. CV: RRR, normal S1 and S2. No murmurs, gallop, or rubs. Resp: diffuse wheezing present in bilateral lung acharya, and rhonchi auscultated in bilateral upper lung acharya. No crackles noted. GI: soft, non-tender, non-distended. BSx4. No hepatomegaly, splenomegaly, ecchymoses, or lesions. Neuro: sensation normal in UE and LE bilaterally. Strength normal in UE and LE bilaterally. Extrem: radial and dorsalis pedis pulses +2 bilaterally. No LE edema. No rashes noted. - Assessment and Plan (1) Hyperosmolar non-ketotic state in patient with type 2 diabetes mellitus Current Visit: Yes Status: Acute Assessment and Plan: Patient has presented with HHS multiple times in the past from non-compliance with his medications. Blood glucose was 1104 on admission. Is currently 388. Corrected sodium is 132.2. Normal anion gap Patient's insulin drip has been stopped since blood glucose levels are below 250. Basal insulin and sliding scale insulin was started yesterday. Plan: -Insulin was bumped up to 50mg BID detemir -Increase meal time insulin from 5 to 8 -Diabetic diet -Acuchecks -Social work consulted (2) Unilateral weakness Current Visit: Yes Status: Acute Assessment and Plan: Left sided weakness may be a side effect of the HHS. Patient originally reported a conflicting history of whether his weakness was right or left sided, but indicates he has had it for a long time. PE rules out a stroke. The patient had normal bilateral upper and lower extremity strength and sensation. He also spoke well. On 09/02/18 patient says he no longer has weakness on either side. An echo was ordered and was negative for findings concerning of a stroke. A carotid doppler was ordered and showed bilateral carotid system having nonstenotic plaques. Brain MRI showed no acute intracranial infarct or mass, and ruled out a recent stroke. it shows a remote lacunar infarct in the head of the left caudate. Plan: -Will have PTOT see him. (3) Acute kidney injury superimposed on chronic kidney disease Current Visit: Yes Status: Acute Assessment and Plan: GFR was 31 upon admission. Is now 26. Baseline is between stage 3a and 3b kidney disease. BUN was 41 upon admission. Is now 47. Creatinine was 2.17 upon admission. Is now 2.52. For urinalysis, the urine showed a protein level of 100, a glucose level of 1000, and showed trace blood. Etiology of DANY is either secondary to prerenal hypovolemia, or this is now the patient's baseline GFR from uncontrolled DM. Hold lisinopril and lasix. Plan: -IV fluids were given -Monitor Is and Os -Monitor serum glucose -Avoid nephrotoxic meds -Renal dose medications (4) COPD (chronic obstructive pulmonary disease) Current Visit: No Status: Chronic Assessment and Plan: COPD is currently controlled. Continue COPD home medication schedule. (5) Hypertension Current Visit: No Status: Chronic Assessment and Plan: HTN is currently controlled. Continue amlodipine per schedule. (6) Hypertriglyceridemia Current Visit: No Status: Chronic Assessment and Plan: Patient's triglyceride level was measured to be high at a level of 1926. Plan: -Begin fenofibrate 135mg PO daily. (7) Tobacco abuse Current Visit: No Status: Chronic Assessment and Plan: Plan: -Nicoderm 7mg TD daily. (8) DVT prophylaxis Current Visit: Yes Status: Acute Assessment and Plan: 5,000 units SQ heparin q8hrs. - Time Spent with Patient Total time spent is greater than 50% in coordination of care (as documented) at patient's floor/unit and/or counseling patient: Internal Medicine: Result - Labs CBC & Chem 7: 09/03/18 03:35 09/03/18 03:35 Labs: Short CBC 09/03/18 Range/Units 03:35 WBC 7.6 (4.3-11.1) K/mcL Hgb 10.8 L (12.9-16.9) g/dL Hct 29.6 L (37.5-50.1) % Plt Count 257 (140-400) K/mcL Neutrophils # 3.9 (1.6-8.9) K/mcL BMP 09/03/18 03:35 Sodium 129 L Potassium 4.5 Chloride 99 Carbon Dioxide 22 L BUN 47 H Creatinine 2.52 H Glucose 388 H Calcium 8.1 L - Impressions Impressions Brain MRI 09/01/18 06:32 IMPRESSION: 1. No acute intracranial abnormality within limits of motion artifact. 2. 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 D/ / Bobby Villa / Bobby Villa Interpreting Provider: Bobby Villa <Serjio Jerez - Last Filed: 09/03/18 16:53> (4) COPD (chronic obstructive pulmonary disease) Qualifiers: COPD type: unspecified COPD Qualified Code(s): J44.9 - Chronic obstructive pulmonary disease, unspecified (5) Hypertension Qualifiers: Hypertension type: essential hypertension Qualified Code(s): I10 - Essential (primary) hypertension
[2018-09-03] MEDS: traZODone 50 MG TABLET PO SCH (20:34)
[2018-09-03] MEDS ORDERED: Insulin DETEMIR 100 UNIT/ML X5UNITS SQ SCH (21:00)
[2018-09-04 04:01] LABS: Basophils # 0.1 K/mcL (0.0-0.2); Eosinophils # 0.7 K/mcL (0.0-0.6); Eosinophils % 8.4 %; Hematocrit 31.5 % (37.5-50.1); Hemoglobin 11.6 g/dL (12.9-16.9); Immature Granulocytes % 0.8 % (0-4); Lymphocytes # 2.4 K/mcL (0.6-4.6); Lymphocytes % 30.8 %; Mean Corpuscular HGB Conc 36.8 g/dL (31.6-35.5); Mean Corpuscular Hemoglobin 31.4 pg (28.0-33.3); Mean Corpuscular Volume 85.4 fL (83.0-100.0); Mean Platelet Volume 9.9 fL (9.4-12.4); Monocytes # 0.4 K/mcL (0.0-1.3); Monocytes % 5.7 %; Neutrophils # 4.1 K/mcL (1.6-8.9); Platelet Count 266 K/mcL (140-400); Red Blood Count 3.69 M/mcL (4.19-5.50); Red Cell Distribution Width 13.3 % (11.5-14.5); Segmented Neutrophils % 53.3 %
[2018-09-04 04:18] LABS: Calcium 8.6 mg/dL (8.6-10.3); Potassium 4.4 mEq/L (3.5-5.1)
[2018-09-04] MEDS: levETIRAcetam 250 MG TABLET PO SCH (06:30)
[2018-09-04] MEDS: Tiotropium 18 MCG inhalation IH SCH (07:35)
[2018-09-04] MEDS: MOMETASONE FUROATE 100 mcg Inhaler IH SCH (07:35)
--- NOTE | 2018-09-04 08:00 | Discharge Summary ---
<Sonia Stone - Last Filed: 09/04/18 13:40> - NOTES TO OUTPATIENT PROVIDER Notes to Outpatient Provider: Admitted for HHS secondary to noncompliance with medication. Multiple admissions due to this. Initial concerns of possible unilateral weakness however the patient had a conflicting story with which side weakness was on. There is also discrepancies whether this was chronic instead of acute. He was not a TPA candidate for this reason. mri brain remote lacunar infarct, carotid us no significant stenoses, echo without pfo or clot. Continued aspirin and statin. Patient to be discharged to SNF for PT/OT. Rest of insulin regimen remains the same. patient's Humalog increased to 8 units TID with meals. he developed DANY on CKD which was improving however Lasix and judi inhibitor were held wildly creatinine continue to improve. Creatinine to be rechecked 2 days after discharge and then custodial physician to continue judi inhibitor and Lasix as tolerated. Date of Encounter: 09/04/18 Time of Encounter: 08:00 - Discharge Diagnosis (1) Hyperosmolar non-ketotic state in patient with type 2 diabetes mellitus Priority: Primary Status: Acute Assessment and Plan: Is to continue his home Lantus 60 unit b.i.d., Insulin Humalog 8 units TID with meals, high dose sliding scale insulin which dosing as follows : Fingerstick BG: Insulin Units: 141-180 mg/dl 6 units/SQ 181-220 mg/dl 8 units/SQ 221-260 mg/dl 10 units/SQ 261-300 mg/dl 12 units/SQ 301-350 mg/dl 14 units/SQ 351-400 mg/dl 16 units/SQ 400+ mg/dl 18 units/SQ (2) Acute kidney injury superimposed on chronic kidney disease Priority: Secondary Status: Acute (3) Hypertension Priority: Secondary Status: Chronic Qualifiers: Hypertension type: essential hypertension Qualified Code(s): I10 - Essential (primary) hypertension (4) COPD (chronic obstructive pulmonary disease) Priority: Secondary Status: Chronic Qualifiers: COPD type: unspecified COPD Qualified Code(s): J44.9 - Chronic obstructive pulmonary disease, unspecified (5) Hypertriglyceridemia Priority: Secondary Status: Chronic (6) Tobacco abuse Priority: Secondary Status: Chronic (7) DVT prophylaxis Priority: Secondary Status: Acute (8) Unilateral weakness Priority: Secondary Status: Acute Hospital course: Mr. Regalado is 63 year old male who presented to the ED on 09/01/18 with hyperglycemia. He also complained at the time of left-sided weakness. He has a PMHx of HTN, hyperlipidemia, COPD, renal disease, GERD, arthritis, osteoporosis, dementia, and hepatitis. In the ED, he received a fluid bolus and 10 units of IV insulin. The patients glucose was 1104 upon admission. He was admitted to the ICU for workup and treatment of HHS, and he had a normal anion gap. The patient has presented with HHS multiple times in the past from non-compliance with his medications. He received an insulin drip until his blood glucose levels were 250 or lower, then was switched to basal and sliding scale insulin. He also had a diabetic diet and received accu-cheks. His Levemir was gradually bumped up from 20mg to 60mg BID, and his meal time insulin was increased from 6 to 8 TID. The patient had hyponatremia upon admission of 118. It was a pseudohyponatremia, and his corrected sodium level at the time was 134. With his reported left-sided weakness, the patient gave a conflicting later on that he never had left-sided weakness and that it was right-sided weakness. This was likely a symptom of his HHS, but a brain MRI, echo, and carotid Doppler were ordered. All of these imaging studies were negative for an acute stroke or infarct. A stroke was also ruled out with PE, as the patient had normal bilateral upper and lower extremity sensation and strength, and he verbally spoke well. The patient also had DANY superimposed on CKD, and the etiology of his DANY was likely secondary to prerenal hypovolemia. His GFR upon admission was 31, and his baseline is between a stage 3a and 3b CKD. His creatinine was 2.17 upon admission, and his BUN was 41 upon admission. IV fluids were given, nephrotoxic meds were avoided, and medications were renal dosed. 09/03/18 was the first day his Lasix and JUDI inhibitor were held, and they will continue to be held upon DC, as the SNF will recheck his creatinine in 2 days of DC, and if his creatinine levels have improved, he can go back on his medications. The patient had hypertriglyceridemia at 1,926 on 09/02/18 and was started on fenofibrate 135mg PO daily. Insulin LISPRO for patients DM should be administered no longer than 15 mins prior to eating. Instructions for fingerstick blood glucose level and amount of insulin units for associated levels are listed below: Fingerstick BG: Insulin Units: 141-180 mg/dl 6 units/SQ 181-220 mg/dl 8 units/SQ 221-260 mg/dl 10 units/SQ 261-300 mg/dl 12 units/SQ 301-350 mg/dl 14 units/SQ 351-400 mg/dl 16 units/SQ 400+ mg/dl 18 units/SQ Upon discharge the glucose was under much better control and the patient was alert and oriented times 3. The patient was then discharged to in SNF for continued PT OT. His Lasix and judi inhibitor are currently being held until his creatinine is rechecked in 2 days by the nursing facility physician who may restart those 2 medications as his creatinine improves. The patient was educated on the importance of compliance with his insulin regimen for management of his diabetes. He stated clear understanding of the treatment plan and was agreeable. Discharge discussed with: patient, nurse, social work Time spent discussing smoking cessation with patient: more than 10 minutes - Time Spent with Patient Total time spent providing and/or coordinating discharge services: Greater than 30 minutes - Discharge Medications Home Medications: Albuterol Neb [Proventil Neb] 2.5 mg IH Q6H 08/20/18 [History] Albuterol Sulfate [Ventolin Hfa] 2 puff IH Q6H PRN 08/20/18 [History] Atorvastatin [Lipitor] 40 mg PO HS 08/20/18 [History] Carvedilol [Coreg] 25 mg PO BID 08/20/18 [History] Cholecalciferol (Vitamin D3) [Vitamin D3] 50,000 unit PO MÁRQUEZ 08/20/18 [History] Citalopram [CeleXA] 20 mg PO DAILY 08/20/18 [History] Ferrous Sulfate 325 mg PO BID 08/20/18 [History] Fluticasone Propionate [Flovent Diskus] 1 puff IH BID 08/20/18 [History] Gabapentin [Neurontin] 200 mg PO TID 08/20/18 [History] Insulin Glargine [Lantus] 60 unit SQ BID 08/20/18 [History] Insulin LISPRO [HumaLOG] 0 - 12 units SQ QID 08/20/18 [History] Insulin LISPRO [HumaLOG] 6 units SQ TIDWM 08/20/18 [History] Lactobacillus [Culturelle] 1 cap PO BID 08/20/18 [History] LevETIRAcetam [Keppra] 750 mg PO Q12H 08/20/18 [History] Magnesium Oxide [Magnesium] 400 mg PO BID 08/20/18 [History] Metformin HCl 500 mg PO BID 08/20/18 [History] Omeprazole [PriLOSEC] 20 mg PO DAILY 08/20/18 [History] Polyethylene Glycol 3350 [MiraLAX] 17 gm PO DAILY 08/20/18 [History] Pramipexole Di-HCl [Pramipexole Dihydrochloride] 0.125 mg PO HS 08/20/18 [History] Sennosides/Docusate Sodium [Senna-Docusate Sodium Tablet] 1 tab PO HS PRN 08/20 [History] Tiotropium [Spiriva] 2 puff IH DAILY 08/20/18 [History] Trazodone HCl 50 mg PO HS 08/20/18 [History] Vitamin B Complex [B Complex] 1 tab PO DAILY 08/20/18 [History] amLODIPine [Norvasc] 5 mg PO QAM 08/20/18 [History] Aspirin 81 mg PO DAILY tab.chew 09/04/18 [Rx] Fenofibrate [Tricor] 135 mg PO DAILY tablet 09/04/18 [Rx] Insulin LISPRO [HumaLOG] 8 units SQ TIDWM vial 09/04/18 [Rx] Mometasone Furoate [Asmanex Hfa] 1 puff IH BIDRESP puff 09/04/18 [Rx] Allergies/Adverse Reactions: Allergy/AdvReac Type Severity Reaction Status Date / Time acetaminophen Allergy Hives Verified 09/19/17 12:11 [From Darvocet-N] ibuprofen Allergy Hives Verified 09/19/17 12:11 propoxyphene Allergy Hives Verified 09/19/17 12:11 [From Darvocet-N] tramadol [From Ultram] Allergy Hives Verified 09/19/17 12:11 Date of admission: 09/01/18 04:56 Primary care physician: Mark Coe MD Consults: 09/01/18 06:25 Consult to Garbage Collection Supervisor [CONS] Routine Reason for SW Consult: pt. states he cannot care for himself anymore at home. Also would like to appoint nephew as DPOA 09/01/18 13:35 Consult to Occupational Therapy [CONS] Routine Comment: Evaluate, develop and implement POC Reason for Consult: Evaluate for weakness and immobility Does patient have active BEDREST order?: No Is patient medically & hemodynamically stable?: Yes Consult to Physical Therapy [CONS] Routine Comment: Evaluate, develop and implement POC Reason for Consult: Evaluate for weakness and immobility Does patient have active BEDREST order?: No Is patient medically & hemodynamically stable?: Yes Discharging clinician: Sharron Donis Anticipated date of discharge: 09/04/18 - Constitutional Vitals: Temp Pulse Resp BP Pulse Ox 97.8 F 58 24 163/69 98 09/04/18 07:49 09/04/18 07:49 09/04/18 07:49 09/04/18 07:49 09/04/18 07:49 Exam: Gen: patient A/Ox3. In no acute distress. Neck: soft, supple, trachea midline. No cervical lymphadenopathy present. No thyromegaly. CV: RRR, normal S1 and S2. No murmurs, gallop, or rubs. Resp: diffuse wheezing bilaterally in upper and lower lung acharya, rhonchi bilaterally in upper lung acharya. Symmetric thorax. No crackles heard. GI: soft, non-tender, non-distended. BSx4. No hepatomegaly, splenomegaly, ecchymoses, or lesions. Neuro: sensation normal in UE and LE bilaterally. Strength normal in UE and LE bilaterally. Extrem: radial pulses +2 bilaterally, dorsalis pedis pulses +1 bilaterally. No LE edema noted. No rashes noted. - Patient Status Disposition: Transfer SNF Condition: Good Functional capacity at discharge: independent ambulation Overall status at discharge: patient is back to baseline - Discharge Instructions Instructions: Diabetes Mellitus Type 2 in Adults (DC), Anemia (GEN) Follow Up With: Mark Coe MD [Primary Care Provider] - 09/10/18 9:45 am () Additional Instructions: Continue to take insulin as prescribed to prevent readmission for HHS. Continue with PT/OT follow-up with your family physician in about a week. Recheck your creatinine in 2 days. assisted physician can restart your Lasix and judi inhibitor pending a result of the improved creatinine which indicates her kidney function. - Diet and Activity Activity: as per physical therapy Diet: diabetic diet <Sharron Donis - Last Filed: 09/04/18 14:27> - NOTES TO OUTPATIENT PROVIDER Notes to Outpatient Provider: He appears to have chronic anemia that was stable this admission without any evidence of bleeding. Should have outpt eval for anemia Date of Encounter: 09/04/18 - Discharge Diagnosis (1) Acute kidney injury superimposed on chronic kidney disease Status: Acute (2) Hyperosmolar non-ketotic state in patient with type 2 diabetes mellitus Status: Acute (3) Hypertension Status: Chronic Qualifiers: Hypertension type: essential hypertension Qualified Code(s): I10 - Essential (primary) hypertension (4) COPD (chronic obstructive pulmonary disease) Status: Chronic Qualifiers: COPD type: unspecified COPD Qualified Code(s): J44.9 - Chronic obstructive pulmonary disease, unspecified (5) Hypertriglyceridemia Status: Chronic (6) DVT prophylaxis Status: Acute (7) Tobacco abuse Status: Chronic (8) Unilateral weakness Status: Acute Hospital course: Mr. Regalado is a 63 year old male - Time Spent with Patient Total time spent providing and/or coordinating discharge services: Greater than 30 minutes (45 min) Date of admission: 09/01/18 04:56 Primary care physician: Mark Coe MD Consults: 09/01/18 06:25 Consult to Garbage Collection Supervisor [CONS] Routine Reason for SW Consult: pt. states he cannot care for himself anymore at home. Also would like to appoint nephew as DPOA 09/01/18 13:35 Consult to Occupational Therapy [CONS] Routine Comment: Evaluate, develop and implement POC Reason for Consult: Evaluate for weakness and immobility Does patient have active BEDREST order?: No Is patient medically & hemodynamically stable?: Yes Consult to Physical Therapy [CONS] Routine Comment: Evaluate, develop and implement POC Reason for Consult: Evaluate for weakness and immobility Does patient have active BEDREST order?: No Is patient medically & hemodynamically stable?: Yes - Constitutional Vitals: Temp Pulse Resp BP Pulse Ox 98.1 F 61 24 143/57 95 09/04/18 11:19 09/04/18 11:19 09/04/18 11:19 09/04/18 11:19 09/04/18 11:19 - Attending Attestation I examined this patient and my medical decision-making was reviewed with the Resident Physician Dr Stone. I agree with the documented findings, disposition and treatment plan as described except to the extent set forth below. Mr Regalado was admitted with HHNK and unilateral weakness with unclear timeline as to onset of symptoms with varying reports given to staff this admit. He was negative for acute stroke. Blood sugars improved with insulin regimen here. He is being discharged to [facility] for rehab. Awake,feeling well, back to baseline. no n/v/abd pain. denies weakness, numbness/tingling. eager to dc to e[facility]. answered all discharge questions. gen- alert, awake,appears stated age cv- reg rate and rhythm, normal s1,s2, no murmurs appreciated, no le edema lungs- ctabl, no wheezing, rhonchi or crackles, norm resp effort abd- soft, nt, nd, + bs neuro- AAOx3, CN grossly intact, no focal deficits HHNK- bs improved,cont current insulin regimen here on dc Pseudohyponatremia- na adjusted with correction for glucose this admission Unilateral weakness, resolved- conflicting history (right sided vs left sided, noting now has had it for a long time)- was not a tpa candidate for this reason and admitting exam normal-mri brain remote lacunar infarct, carotid us no significant stenoses, echo without pfo or clot, asa + statin, pt/ot Hypercholesterolemia Hypertriglyceridemia, chronic- ignificantly elevated in 1100s, hx of near same- fenofibrate, cont statin Chronic anemia, appears to have baseline anywhere from 8-12, 10 here, no active bleeding and remained stable- will require outpt fu for further work up /man agement outpt DANY on CKD- ckd stage III- suspect pre renal in setting of HHNK- held lasix and aci with improvement, check creat outpt and resume in upcoming days. he has variable baseline but most recent in early August had creat 2.2s. Best creats recently 1.5-1.9s further diagnoses and plan and documented by resident time spent on dc 45 min
[2018-09-04] MEDS: Fenofibrate 54 MG TABLET PO SCH (08:03)
[2018-09-04] MEDS: Aspirin 81 MG TAB.CHEW PO SCH (08:04)
[2018-09-04] MEDS: Nicotine 7 MG PATCH.TD24 TD SCH (08:04)
[2018-09-04] MEDS: amLODIPine 5 MG TABLET PO SCH (08:04)
[2018-09-04] MEDS: Gabapentin 100 MG CAPSULE PO SCH (08:04)
[2018-09-04] MEDS: *HR* Heparin 5,000 UNIT/ML VIAL SQ SCH (08:05)
[2018-09-04] MEDS: Insulin DETEMIR 100 UNIT/ML X5UNITS SQ SCH (08:05)
[2018-09-04] MEDS: Insulin LISPRO 300 UNITS/3 ML VIAL SQ SCH ×4 (08:06→11:23)
[2018-09-04 11:21] VITALS: BP 143/57
== END 2018-09-04 14:44 | DRG 420 ==
LOC: EMEROOARM 01:59 → ICNU 01:59 → SUATTDRO 04:56 → ICNU 05:20 → 2NNU 18:06
PROVIDERS: ADMIT Internal Medicine; ATTEND Internal Medicine

== ENCOUNTER 2018-09-17 10:06 | Inpatient (IN) ==
[2018-09-17] MEDS ORDERED: Ipratropium/Albuterol Neb 3 ML IH ONE (10:18)
[2018-09-17] MEDS ORDERED: methylPREDNISolone 125 MG/2 ML VIAL IVP ONE (10:18)
--- NOTE | 2018-09-17 10:21 | Emergency Department Note ---
Disposition Clinical Impression: COPD exacerbation, Hyperkalemia Acute respiratory failure Qualifiers: Respiratory failure complication: hypoxia and hypercapnia Qualified Code(s): J96.01 - Acute respiratory failure with hypoxia; J96.02 - Acute respiratory failure with hypercapnia Anemia Qualifiers: Anemia type: unspecified type Qualified Code(s): D64.9 - Anemia, unspecified Disposition: Admitted As Inpatient Condition: Fair Referrals: Mark Coe MD [Primary Care Provider] - Forms: ED Satisfaction Letter Time of Disposition: 13:22 General Adult HPI - General Chief complaint: ED Back Pain/Injury Stated complaint: back pain Time Seen by Provider: 09/17/18 10:09 Source: patient Limitations: no limitations Nursing Notes Reviewed: Yes Vital Signs Reviewed: Yes - History of Present Illness HPI Narrative: 63-year-old male presents from home for evaluation of shortness of breath. Onset 2 Days ago and progressively worse. He does have a history of COPD with no home oxygen. He has a worsening of his dry cough. Patient also has chest pain with coughing. Additionally, he notes worsening of his chronic lower back pain. PMH: COPD with no home oxygen, CHF, CAD with ID [id number]. Diabetes mellitus on both oral and insulin. 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 ROS: Positive: As above Negative: Fever, chills, nausea, vomiting, palpitations, diaphoresis, change of bowel or bladder habits. No trauma. Pain Scale: 9 - Related Data Home Medications Medication Instructions Recorded Confirmed Albuterol Neb [Proventil Neb] 2.5 mg IH Q6H 08/20/18 09/01/18 Albuterol Sulfate [Ventolin Hfa] 2 puff IH Q6H PRN 08/20/18 09/01/18 Atorvastatin [Lipitor] 40 mg PO HS 08/20/18 09/01/18 Carvedilol [Coreg] 25 mg PO BID 08/20/18 09/01/18 Cholecalciferol (Vitamin D3) 50,000 unit PO MÁRQUEZ 08/20/18 09/01/18 [Vitamin D3] Citalopram [CeleXA] 20 mg PO DAILY 08/20/18 08/20/18 Ferrous Sulfate 325 mg PO BID 08/20/18 09/01/18 Fluticasone Propionate [Flovent 1 puff IH BID 08/20/18 09/01/18 Diskus] Gabapentin [Neurontin] 200 mg PO TID 08/20/18 09/01/18 Insulin Glargine [Lantus] 60 unit SQ BID 08/20/18 09/01/18 Insulin LISPRO [HumaLOG] 0 - 12 units SQ QID 08/20/18 09/01/18 Insulin LISPRO [HumaLOG] 6 units SQ TIDWM 08/20/18 09/01/18 Lactobacillus [Culturelle] 1 cap PO BID 08/20/18 08/20/18 LevETIRAcetam [Keppra] 750 mg PO Q12H 08/20/18 09/01/18 Magnesium Oxide [Magnesium] 400 mg PO BID 08/20/18 09/01/18 Metformin HCl 500 mg PO BID 08/20/18 09/01/18 Omeprazole [PriLOSEC] 20 mg PO DAILY 08/20/18 09/01/18 Polyethylene Glycol 3350 [MiraLAX] 17 gm PO DAILY 08/20/18 09/01/18 Pramipexole Di-HCl [Pramipexole 0.125 mg PO HS 08/20/18 09/01/18 Dihydrochloride] Sennosides/Docusate Sodium 1 tab PO HS PRN 08/20/18 09/01/18 [Senna-Docusate Sodium Tablet] Tiotropium [Spiriva] 2 puff IH DAILY 08/20/18 09/01/18 Trazodone HCl 50 mg PO HS 08/20/18 09/01/18 Vitamin B Complex [B Complex] 1 tab PO DAILY 08/20/18 09/01/18 amLODIPine [Norvasc] 5 mg PO QAM 08/20/18 09/01/18 Previous Rx's Medication Instructions Recorded Aspirin 81 mg PO DAILY tab.chew 09/04/18 Fenofibrate [Tricor] 135 mg PO DAILY tablet 09/04/18 Insulin LISPRO [HumaLOG] 8 units SQ TIDWM vial 09/04/18 Mometasone Furoate [Asmanex Hfa] 1 puff IH BIDRESP puff 09/04/18 Allergies Allergy/AdvReac Type Severity Reaction Status Date / Time acetaminophen Allergy Hives Verified 09/19/17 12:11 [From Darvocet-N] ibuprofen Allergy Hives Verified 09/19/17 12:11 propoxyphene Allergy Hives Verified 09/19/17 12:11 [From Darvocet-N] tramadol [From Ultram] Allergy Hives Verified 09/19/17 12:11 All systems ED: reviewed and negative except as stated. Review of Systems: As Per HPI Past Medical History - Past Medical History Medical history: Reports: arthritis, COPD, dementia, diabetes, GERD, hepatitis, hyperlipidemia, hypertension, osteoporosis, renal disease, syncope Surgical history: Reports: cataract, LE stent(s), orthopedic, other Psychiatric history: Reports: anxiety, depression, panic disorder - Social History Smoking Status: Current every day smoker Smokeless Tobacco Status: No Alcohol use: Reports: none Drug use: Reports: none Physical Exam Vital Signs Reviewed General: Patient is alert, oriented, and in acute respiratory distress. Patient has conversational dyspnea, tachypnea, hypoxia. Head: atraumatic, normocephalic Eye: normal appearance, no scleral icterus, no conjunctival injection ENT: mucous membranes moist, normal external ear exam Neck: normal inspection, trachea midline, full ROM Chest: normal inspection, symmetric chest rise Respiratory: Poor respiratory effort with shallow inspiration.. Bilateral breath sounds are globally diminished without wheeze, crackles, or rhonchi. Cardiovascular: Regular rate and rhythm. No clicks, rubs, gallops, or murmors. Normal heart sounds. Abdomen: Bowel sounds present normoactive x-4 quadrants. Abdomen is soft, nondistended, and nontender. No guarding or rebound. Rectal exam: Standards Analyst present. Brown stool on glove fingertip. Fecal occult b lood test submitted. Appropriate rectal tone. Musculoskeletal: Spontaneously moving all extremities. Skin: warm, dry, intact. Neuro: GCS 15. Alert and oriented x4. Sensation light touch intact. Psych: Patient's affect is appropriate for situation. - General Limitations: no limitations General appearance: alert, in no apparent distress Course Course Narrative: Immediate concern is patient's respirator status. ABG shows hypoxia and hypercarbia. Patient placed on BiPAP with improvement in his work of breathing. Patient is hyperkalemic to 6.1; Kayexelate given. Patient has acute kidney injury; fluids provided. Chest x-ray concerning for pulmonary edema. Lasix provided. Patient also has anemia with hemoglobin 7.7. This is a drop from his most recent levels. Patient type and screened. 2 units red blood cells ordered. FOBT negative. Patient feels much better on BiPAP. He is oxygenating much better. I discussed the above with the admitting hospitalist, Dr. Nieto, who agrees to accept the patient for continued evaluation monitoring. Chest X-Ray 09/17/18 10:18 IMPRESSION: Pulmonary edema. D/ / Roderick Ramirez MD / Roderick Ramirez MD Interpreting Provider: Roderick Ramirez MD Vital Signs Temperature 97.9 F 09/17/18 10:08 Pulse Rate 57 09/17/18 10:08 Respiratory Rate 28 09/17/18 10:08 Blood Pressure 124/56 09/17/18 10:08 O2 Sat by Pulse Oximetry 76 09/17/18 10:08 Temperature 97.9 F 09/17/18 10:08 Pulse Rate 67 09/17/18 13:01 Respiratory Rate 25 09/17/18 13:01 Blood Pressure 138/78 09/17/18 13:01 O2 Sat by Pulse Oximetry 95 09/17/18 13:01 Oxygen Delivery Oxygen Delivery Room Air Medical Decision Making - Lab Data Result diagrams: 09/17/18 11:22 09/17/18 10:30 Lab Results 09/17/18 09/17/18 09/17/18 Range/Units 10:30 10:30 10:30 WBC (4.3-11.1) K/mcL RBC (4.19-5.50) M/mcL Hgb (12.9-16.9) g/dL Hct (37.5-50.1) % MCV (83.0-100.0) fL MCH (28.0-33.3) pg MCHC (31.6-35.5) g/dL RDW (11.5-14.5) % Plt Count (140-400) K/mcL MPV (9.4-12.4) fL Immature Gran % (0-4) % Seg Neutrophils % % Lymphocytes % % Monocytes % % Eosinophils % % Basophils % % Neutrophils # (1.6-8.9) K/mcL Lymphocytes # (0.6-4.6) K/mcL Monocytes # (0.0-1.3) K/mcL Eosinophils # (0.0-0.6) K/mcL Basophils # (0.0-0.2) K/mcL Nucleated RBCs/100 WBC (0) /100 WBC ABG pH (7.32-7.45) pH Units ABG pCO2 (35-45) mmHg ABG pO2 (85-104) mmHg ABG HCO3 (21-27) mEq/L ABG Total CO2 (20-26) mEq/L ABG O2 Saturation (95-98) % ABG Base Excess (-2 to 3) mEq/L O2 Delivery Device Inspired O2 (1-15=lpm dv62-567=%) Sodium 139 (136-145) mEq/L Potassium 6.1 H (3.5-5.1) mEq/L Chloride 110 H (98-107) mEq/L Carbon Dioxide 22 L (23-29) mEq/L BUN 52 H (8-23) mg/dL Creatinine 2.65 H (0.70-1.30) mg/dL Est GFR ( Amer) 30 L (> 60) Est GFR (Non-Af Amer) 25 L (> 60) BUN/Creatinine Ratio 20 (6-26) Glucose 89 (70-105) mg/dL Calculated Osmolality 302 H (280-300) Lactic Acid 0.6 (0.5-2.2) mmol/L Calcium 8.3 L (8.6-10.3) mg/dL Total Bilirubin (0.3-1.0) mg/dL Direct Bilirubin (0.0-0.2) mg/dL Indirect Bilirubin (0.0-1.2) mg/dL AST (13-39) Units/L ALT (7-52) Units/L Alkaline Phosphatase (34-104) Units/L Troponin I < 0.03 (< 0.04) ng/mL B-Natriuretic Peptide 149 H (Less than 100) pg/mL Serum Total Protein (6.4-8.9) g/dL Albumin (3.5-5.7) g/dL Globulin (2.4-3.5) g/dL Albumin/Globulin Ratio (1.1-2.2) Lipase (11-82) Units/L Urine Color (Yellow) Urine Clarity (Clear) Urine pH (5.0-8.0) pH Units Ur Specific [facility] (1.010-1.025) Urine Protein (Neg-Trace) mg/dL Urine Glucose (UA) (Normal) mg/dL Urine Ketones (Negative) mg/dL Urine Blood (Negative) Urine Nitrite (Negative) Urine Bilirubin (Negative) Urine Urobilinogen (Normal) mg/dL Ur Leukocyte Esterase (Negative) Urine Microscopic RBC (0-3) per hpf Urine Microscopic WBC (0-3) per hpf Ur Squamous Epith Cells (None-Few) per lpf Amorphous Sediment (Few) Urine Bacteria (None-Few) per hpf Hyaline Casts (None-Few) per lpf Ur Culture Indicated? (NO) Stool Occult Bld Scrn (Negative) Specimen Rejected Blood Type Antibody Screen Crossmatch 09/17/18 09/17/18 09/17/18 Range/Units 10:30 10:30 10:47 WBC (4.3-11.1) K/mcL RBC (4.19-5.50) M/mcL Hgb (12.9-16.9) g/dL Hct (37.5-50.1) % MCV (83.0-100.0) fL MCH (28.0-33.3) pg MCHC (31.6-35.5) g/dL RDW (11.5-14.5) % Plt Count (140-400) K/mcL MPV (9.4-12.4) fL Immature Gran % (0-4) % Seg Neutrophils % % Lymphocytes % % Monocytes % % Eosinophils % % Basophils % % Neutrophils # (1.6-8.9) K/mcL Lymphocytes # (0.6-4.6) K/mcL Monocytes # (0.0-1.3) K/mcL Eosinophils # (0.0-0.6) K/mcL Basophils # (0.0-0.2) K/mcL Nucleated RBCs/100 WBC (0) /100 WBC ABG pH 7.29 L (7.32-7.45) pH Units ABG pCO2 53 H (35-45) mmHg ABG pO2 58 L (85-104) mmHg ABG HCO3 26 (21-27) mEq/L ABG Total CO2 27 H (20-26) mEq/L ABG O2 Saturation 86 L (95-98) % ABG Base Excess -1 (-2 to 3) mEq/L O2 Delivery Device Cannula Inspired O2 36.0 (1-15=lpm qr02-209=%) Sodium (136-145) mEq/L Potassium (3.5-5.1) mEq/L Chloride (98-107) mEq/L Carbon Dioxide (23-29) mEq/L BUN (8-23) mg/dL Creatinine (0.70-1.30) mg/dL Est GFR ( Amer) (> 60) Est GFR (Non-Af Amer) (> 60) BUN/Creatinine Ratio (6-26) Glucose (70-105) mg/dL Calculated Osmolality (280-300) Lactic Acid (0.5-2.2) mmol/L Calcium (8.6-10.3) mg/dL Total Bilirubin 0.3 (0.3-1.0) mg/dL Direct Bilirubin 0.1 (0.0-0.2) mg/dL Indirect Bilirubin 0.2 (0.0-1.2) mg/dL AST 12 L (13-39) Units/L ALT 13 (7-52) Units/L Alkaline Phosphatase 98 (34-104) Units/L Troponin I (< 0.04) ng/mL B-Natriuretic Peptide (Less than 100) pg/mL Serum Total Protein 6.0 L (6.4-8.9) g/dL Albumin 3.0 L (3.5-5.7) g/dL Globulin 3.0 (2.4-3.5) g/dL Albumin/Globulin Ratio 1.0 L (1.1-2.2) Lipase 14 (11-82) Units/L Urine Color (Yellow) Urine Clarity (Clear) Urine pH (5.0-8.0) pH Units Ur Specific [facility] (1.010-1.025) Urine Protein (Neg-Trace) mg/dL Urine Glucose (UA) (Normal) mg/dL Urine Ketones (Negative) mg/dL Urine Blood (Negative) Urine Nitrite (Negative) Urine Bilirubin (Negative) Urine Urobilinogen (Normal) mg/dL Ur Leukocyte Esterase (Negative) Urine Microscopic RBC (0-3) per hpf Urine Microscopic WBC (0-3) per hpf Ur Squamous Epith Cells (None-Few) per lpf Amorphous Sediment (Few) Urine Bacteria (None-Few) per hpf Hyaline Casts (None-Few) per lpf Ur Culture Indicated? (NO) Stool Occult Bld Scrn (Negative) Specimen Rejected MCV Delta Blood Type Antibody Screen Crossmatch 09/17/18 09/17/18 09/17/18 Range/Units 11:22 11:50 11:52 WBC 6.7 (4.3-11.1) K/mcL RBC 2.62 L (4.19-5.50) M/mcL Hgb 7.7 L (12.9-16.9) g/dL Hct 24.4 L (37.5-50.1) % MCV 93.1 D (83.0-100.0) fL MCH 29.4 (28.0-33.3) pg MCHC 31.6 (31.6-35.5) g/dL RDW 13.9 (11.5-14.5) % Plt Count 261 (140-400) K/mcL MPV 9.0 L (9.4-12.4) fL Immature Gran % 0.3 (0-4) % Seg Neutrophils % 65.7 % Lymphocytes % 15.5 % Monocytes % 12.2 % Eosinophils % 5.7 % Basophils % 0.6 % Neutrophils # 4.4 (1.6-8.9) K/mcL Lymphocytes # 1.0 (0.6-4.6) K/mcL Monocytes # 0.8 (0.0-1.3) K/mcL Eosinophils # 0.4 (0.0-0.6) K/mcL Basophils # 0.0 (0.0-0.2) K/mcL Nucleated RBCs/100 WBC 0.3 H (0) /100 WBC ABG pH (7.32-7.45) pH Units ABG pCO2 (35-45) mmHg ABG pO2 (85-104) mmHg ABG HCO3 (21-27) mEq/L ABG Total CO2 (20-26) mEq/L ABG O2 Saturation (95-98) % ABG Base Excess (-2 to 3) mEq/L O2 Delivery Device Inspired O2 (1-15=lpm kg20-592=%) Sodium (136-145) mEq/L Potassium (3.5-5.1) mEq/L Chloride (98-107) mEq/L Carbon Dioxide (23-29) mEq/L BUN (8-23) mg/dL Creatinine (0.70-1.30) mg/dL Est GFR ( Amer) (> 60) Est GFR (Non-Af Amer) (> 60) BUN/Creatinine Ratio (6-26) Glucose (70-105) mg/dL Calculated Osmolality (280-300) Lactic Acid (0.5-2.2) mmol/L Calcium (8.6-10.3) mg/dL Total Bilirubin (0.3-1.0) mg/dL Direct Bilirubin (0.0-0.2) mg/dL Indirect Bilirubin (0.0-1.2) mg/dL AST (13-39) Units/L ALT (7-52) Units/L Alkaline Phosphatase (34-104) Units/L Troponin I (< 0.04) ng/mL B-Natriuretic Peptide (Less than 100) pg/mL Serum Total Protein (6.4-8.9) g/dL Albumin (3.5-5.7) g/dL Globulin (2.4-3.5) g/dL Albumin/Globulin Ratio (1.1-2.2) Lipase (11-82) Units/L Urine Color (Yellow) Urine Clarity (Clear) Urine pH (5.0-8.0) pH Units Ur Specific [facility] (1.010-1.025) Urine Protein (Neg-Trace) mg/dL Urine Glucose (UA) (Normal) mg/dL Urine Ketones (Negative) mg/dL Urine Blood (Negative) Urine Nitrite (Negative) Urine Bilirubin (Negative) Urine Urobilinogen (Normal) mg/dL Ur Leukocyte Esterase (Negative) Urine Microscopic RBC (0-3) per hpf Urine Microscopic WBC (0-3) per hpf Ur Squamous Epith Cells (None-Few) per lpf Amorphous Sediment (Few) Urine Bacteria (None-Few) per hpf Hyaline Casts (None-Few) per lpf Ur Culture Indicated? (NO) Stool Occult Bld Scrn Negative (Negative) Specimen Rejected Blood Type B POSITIVE Antibody Screen NEGATIVE Crossmatch See Detail 09/17/18 Range/Units 12:19 WBC (4.3-11.1) K/mcL RBC (4.19-5.50) M/mcL Hgb (12.9-16.9) g/dL Hct (37.5-50.1) % MCV (83.0-100.0) fL MCH (28.0-33.3) pg MCHC (31.6-35.5) g/dL RDW (11.5-14.5) % Plt Count (140-400) K/mcL MPV (9.4-12.4) fL Immature Gran % (0-4) % Seg Neutrophils % % Lymphocytes % % Monocytes % % Eosinophils % % Basophils % % Neutrophils # (1.6-8.9) K/mcL Lymphocytes # (0.6-4.6) K/mcL Monocytes # (0.0-1.3) K/mcL Eosinophils # (0.0-0.6) K/mcL Basophils # (0.0-0.2) K/mcL Nucleated RBCs/100 WBC (0) /100 WBC ABG pH (7.32-7.45) pH Units ABG pCO2 (35-45) mmHg ABG pO2 (85-104) mmHg ABG HCO3 (21-27) mEq/L ABG Total CO2 (20-26) mEq/L ABG O2 Saturation (95-98) % ABG Base Excess (-2 to 3) mEq/L O2 Delivery Device Inspired O2 (1-15=lpm yt17-317=%) Sodium (136-145) mEq/L Potassium (3.5-5.1) mEq/L Chloride (98-107) mEq/L Carbon Dioxide (23-29) mEq/L BUN (8-23) mg/dL Creatinine (0.70-1.30) mg/dL Est GFR ( Amer) (> 60) Est GFR (Non-Af Amer) (> 60) BUN/Creatinine Ratio (6-26) Glucose (70-105) mg/dL Calculated Osmolality (280-300) Lactic Acid (0.5-2.2) mmol/L Calcium (8.6-10.3) mg/dL Total Bilirubin (0.3-1.0) mg/dL Direct Bilirubin (0.0-0.2) mg/dL Indirect Bilirubin (0.0-1.2) mg/dL AST (13-39) Units/L ALT (7-52) Units/L Alkaline Phosphatase (34-104) Units/L Troponin I (< 0.04) ng/mL B-Natriuretic Peptide (Less than 100) pg/mL Serum Total Protein (6.4-8.9) g/dL Albumin (3.5-5.7) g/dL Globulin (2.4-3.5) g/dL Albumin/Globulin Ratio (1.1-2.2) Lipase (11-82) Units/L Urine Color Yellow (Yellow) Urine Clarity Cloudy A (Clear) Urine pH 5.0 (5.0-8.0) pH Units Ur Specific [facility] 1.023 (1.010-1.025) Urine Protein >=300 H (Neg-Trace) mg/dL Urine Glucose (UA) Normal (Normal) mg/dL Urine Ketones Negative (Negative) mg/dL Urine Blood Negative (Negative) Urine Nitrite Negative (Negative) Urine Bilirubin Negative (Negative) Urine Urobilinogen Normal (Normal) mg/dL Ur Leukocyte Esterase Negative (Negative) Urine Microscopic RBC 5-15 H (0-3) per hpf Urine Microscopic WBC 3-5 H (0-3) per hpf Ur Squamous Epith Cells Many H (None-Few) per lpf Amorphous Sediment Few (Few) Urine Bacteria Many H (None-Few) per hpf Hyaline Casts Few (None-Few) per lpf Ur Culture Indicated? NO (NO) Stool Occult Bld Scrn (Negative) Specimen Rejected Blood Type Antibody Screen Crossmatch
[2018-09-17 10:50] LABS: ABG Base Excess -1 mEq/L (-2 to 3); ABG HCO3 26 mEq/L (21-27); ABG Oxygen Saturation 86 % (95-98); ABG PCO2 53 mmHg (35-45); ABG PH 7.29 pH Units (7.32-7.45); ABG PO2 58 mmHg (85-104); ABG TCO2 27 mEq/L (20-26)
--- NOTE | 2018-09-17 10:55 | Emergency Department Note ---
Disposition Clinical Impression: COPD exacerbation Acute respiratory failure Qualifiers: Respiratory failure complication: hypoxia and hypercapnia Qualified Code(s): J96.01 - Acute respiratory failure with hypoxia; J96.02 - Acute respiratory failure with hypercapnia Disposition: Admitted As Inpatient Forms: ED Satisfaction Letter General Adult HPI - General Chief complaint: ED General Medical Stated complaint: SOB Time Seen by Provider: 09/17/18 10:09 Source: patient Limitations: no limitations Nursing Notes Reviewed: Yes Vital Signs Reviewed: Yes - History of Present Illness HPI Narrative: Attestation note: Patient was seen with the emergency medicine resident/nurse practitioner/physician assistant corporate secretary/transitional resident/medical student: Dr. Marshall Blood I have personally performed a face to face evaluation on this patient. I have reviewed and agree with history and physical examination patient management and disposition. Briefly the salient points of the case are as follows: 63-year-old male COPD smokes at least a pack per day 50+ pack years not on home O2 via EMS for cough and shortness of breath. He with 75% saturation on room air upon arrival patient went up to the 80s to 90s. Mental O2 ABG shows he has a CO2 and O2 roughly about 50 each patient is being placed on BiPAP. Patient getting triple DuoNeb's getting IV steroids chest x-ray EKG screening labs admission is pending providing 45 minutes critical care service this patient. Pain Scale: 8 - Related Data Home Medications Medication Instructions Recorded Confirmed Albuterol Neb [Proventil Neb] 2.5 mg IH Q6H 08/20/18 09/01/18 Albuterol Sulfate [Ventolin Hfa] 2 puff IH Q6H PRN 08/20/18 09/01/18 Atorvastatin [Lipitor] 40 mg PO HS 08/20/18 09/01/18 Carvedilol [Coreg] 25 mg PO BID 08/20/18 09/01/18 Cholecalciferol (Vitamin D3) 50,000 unit PO MÁRQUEZ 08/20/18 09/01/18 [Vitamin D3] Citalopram [CeleXA] 20 mg PO DAILY 08/20/18 08/20/18 Ferrous Sulfate 325 mg PO BID 08/20/18 09/01/18 Fluticasone Propionate [Flovent 1 puff IH BID 08/20/18 09/01/18 Diskus] Gabapentin [Neurontin] 200 mg PO TID 08/20/18 09/01/18 Insulin Glargine [Lantus] 60 unit SQ BID 08/20/18 09/01/18 Insulin LISPRO [HumaLOG] 0 - 12 units SQ QID 08/20/18 09/01/18 Insulin LISPRO [HumaLOG] 6 units SQ TIDWM 08/20/18 09/01/18 Lactobacillus [Culturelle] 1 cap PO BID 08/20/18 08/20/18 LevETIRAcetam [Keppra] 750 mg PO Q12H 08/20/18 09/01/18 Magnesium Oxide [Magnesium] 400 mg PO BID 08/20/18 09/01/18 Metformin HCl 500 mg PO BID 08/20/18 09/01/18 Omeprazole [PriLOSEC] 20 mg PO DAILY 08/20/18 09/01/18 Polyethylene Glycol 3350 [MiraLAX] 17 gm PO DAILY 08/20/18 09/01/18 Pramipexole Di-HCl [Pramipexole 0.125 mg PO HS 08/20/18 09/01/18 Dihydrochloride] Sennosides/Docusate Sodium 1 tab PO HS PRN 08/20/18 09/01/18 [Senna-Docusate Sodium Tablet] Tiotropium [Spiriva] 2 puff IH DAILY 08/20/18 09/01/18 Trazodone HCl 50 mg PO HS 08/20/18 09/01/18 Vitamin B Complex [B Complex] 1 tab PO DAILY 08/20/18 09/01/18 amLODIPine [Norvasc] 5 mg PO QAM 08/20/18 09/01/18 Previous Rx's Medication Instructions Recorded Aspirin 81 mg PO DAILY tab.chew 09/04/18 Fenofibrate [Tricor] 135 mg PO DAILY tablet 09/04/18 Insulin LISPRO [HumaLOG] 8 units SQ TIDWM vial 09/04/18 Mometasone Furoate [Asmanex Hfa] 1 puff IH BIDRESP puff 09/04/18 Allergies Allergy/AdvReac Type Severity Reaction Status Date / Time acetaminophen Allergy Hives Verified 09/19/17 12:11 [From Frankt-N] ibuprofen Allergy Hives Verified 09/19/17 12:11 propoxyphene Allergy Hives Verified 09/19/17 12:11 [From Darvocet-N] tramadol [From Ultram] Allergy Hives Verified 09/19/17 12:11 Past Medical History - Past Medical History Medical history: Reports: arthritis, COPD, dementia, diabetes, GERD, hepatitis, hyperlipidemia, hypertension, osteoporosis, renal disease, syncope Surgical history: Reports: cataract, LE stent(s), orthopedic, other Psychiatric history: Reports: anxiety, depression, panic disorder - Social History Smoking Status: Current every day smoker Smokeless Tobacco Status: No Alcohol use: Reports: none Drug use: Reports: none Physical Exam - General Limitations: no limitations General appearance: alert, in no apparent distress Course Vital Signs Temperature 97.9 F 09/17/18 10:08 Pulse Rate 57 09/17/18 10:08 Respiratory Rate 28 09/17/18 10:08 Blood Pressure 124/56 09/17/18 10:08 O2 Sat by Pulse Oximetry 76 09/17/18 10:08 Temperature 97.9 F 09/17/18 10:08 Pulse Rate 56 09/17/18 10:48 Respiratory Rate 26 09/17/18 10:48 Blood Pressure 123/56 09/17/18 10:48 O2 Sat by Pulse Oximetry 92 09/17/18 10:48 Oxygen Delivery Oxygen Delivery Nasal Cannula Medical Decision Making - Lab Data Lab Results 09/17/18 Range/Units 10:47 ABG pH 7.29 L (7.32-7.45) pH Units ABG pCO2 53 H (35-45) mmHg ABG pO2 58 L (85-104) mmHg ABG HCO3 26 (21-27) mEq/L ABG Total CO2 27 H (20-26) mEq/L ABG O2 Saturation 86 L (95-98) % ABG Base Excess -1 (-2 to 3) mEq/L O2 Delivery Device Cannula Inspired O2 36.0 (1-15=lpm ds79-170=%)
[2018-09-17 11:03] LABS: Bilirubin,Direct 0.1 mg/dL (0.0-0.2); Bilirubin,Indirect 0.2 mg/dL (0.0-1.2); Bilirubin,Total 0.3 mg/dL (0.3-1.0)
[2018-09-17 11:07] LABS: Troponin I < 0.03 ng/mL (< 0.04)
[2018-09-17 11:08] LABS: BUN/Creatinine Ratio 20 (6-26); Blood Urea Nitrogen 52 mg/dL (8-23); Calcium 8.3 mg/dL (8.6-10.3); Carbon Dioxide 22 mEq/L (23-29); Chloride 110 mEq/L (98-107); Glucose 89 mg/dL (70-105); Osmolality,Calculated 302 (280-300); Potassium 6.1 mEq/L (3.5-5.1); Sodium 139 mEq/L (136-145); eGFR For Non-African Americans 25 (> 60)
[2018-09-17 11:31] LABS: Basophils % 0.6 %; Eosinophils # 0.4 K/mcL (0.0-0.6); Eosinophils % 5.7 %; Hematocrit 24.4 % (37.5-50.1); Hemoglobin 7.7 g/dL (12.9-16.9); Immature Granulocytes % 0.3 % (0-4); Lymphocytes % 15.5 %; Mean Corpuscular HGB Conc 31.6 g/dL (31.6-35.5); Mean Corpuscular Hemoglobin 29.4 pg (28.0-33.3); Mean Corpuscular Volume 93.1 fL (83.0-100.0); Monocytes # 0.8 K/mcL (0.0-1.3); Monocytes % 12.2 %; Neutrophils # 4.4 K/mcL (1.6-8.9); Nucleated Red Blood Cells 0.3 /100 WBC (0); Platelet Count 261 K/mcL (140-400); Red Blood Count 2.62 M/mcL (4.19-5.50); Red Cell Distribution Width 13.9 % (11.5-14.5); Segmented Neutrophils % 65.7 %
[2018-09-17] MEDS ORDERED: 0.9 % Sodium Chloride 1,000 ML IVC ONE (11:47)
[2018-09-17] MEDS ORDERED: Furosemide 40 MG/4 ML VIAL IVP ONE (11:48)
[2018-09-17 12:41] LABS: Bilirubin,Urine Negative (Negative); Blood,Urine Negative (Negative); Clarity,Urine Cloudy (Clear); Color,Urine Yellow (Yellow); Glucose,Urine (UA) Normal (Normal); Ketones,Urine Negative (Negative); Leukocyte Esterase,Urine Negative (Negative); Nitrite,Urine Negative (Negative); Protein,Urine >=300 mg/dL (Neg-Trace); Specific Gravity,Urine 1.023 (1.010-1.025); Urobilinogen,Urine Normal (Normal)
[2018-09-17 12:45] LABS: Squamous Epithelial Cell,Urine Many per lpf (None-Few)
[2018-09-17 13:08] LABS: Bacteria,Urine Many per hpf (None-Few); Hyaline Casts,Urine Few per lpf (None-Few)
[2018-09-17 13:09] LABS: Amorphous Sediment,Urine Few (Few)
[2018-09-17] MEDS ORDERED: Naloxone 0.4 MG/ML INJ IVP PRN (13:28)
[2018-09-17] MEDS ORDERED: Insulin Regular, Human 100 UNIT/ML SQ ONE (13:33)
[2018-09-17] MEDS ORDERED: Dextrose Gel 15 GM/37.5 ML TUBE PO PRN ×2 (13:36)
[2018-09-17] MEDS ORDERED: *HR* Dextrose 50 % in Water (Syg) 50 ML SYRINGE IVP PRN (13:36)
[2018-09-17] MEDS ORDERED: D5% in Water 1,000 ML IVC PRN (13:36)
[2018-09-17] MEDS ORDERED: Azithromycin 500 MG in D5% in Water 250 ML IVPB SCH (14:00)
[2018-09-17] MEDS ORDERED: cefTRIAXone 2,000 MG in 0.9 % Sodium Chloride Mini Bag 100 ML IVPB SCH (14:00)
--- NOTE | 2018-09-17 15:50 | Internal Med History&Physical ---
Date of Encounter: 09/17/18 Time of Encounter: 14:00 Internal Medicine - H&P: HPI Chief complaint: SOB Admitted From: Long-term Nursing Facility Plans for Post Hospital Care: Transfer [facility] History of present illness: Mr. Regalado is a 63 year old male with history of COPD not on home oxygen, CAD status post [place] in 2017, heart failure preserved ejection fraction 60-65%, stage 3a and 3b CKD, GERD, arthritis, osteoporosis, dementia, and hepatitis presented to the emergency department from SNF with shortness of breath. As per patient his symptoms started 3 days prior to admission and has progressively worsened. Nursing staff called the nurse practitioner who works at the nursing facility and he was started on steroids without any improvement so it was decided to transfer him to [facility] for further management. He reports that his shortness of breath occurs both at rest and on ambulation, he is currently not on any home oxygen however he has required increased oxygen use while at the halfway for the past 3 days. In addition to shortness of breath he reports for out of 10 chest pain on deep breathing, there is no radiation and is associated with bilateral leg swelling and PND along with orthopnea. Shortness of breath is also accompanied by a productive cough with yellow sputum, he denies blood. He reports that sitting up and oxygen alleviates his symptoms however his symptoms are aggravated on ambulation and laying flat in the bed. He was recently admitted to [facility] and was discharged on 09/04 for unilateral weakness and hyperosmolar nonketotic state. While in the emergency department he was found to be hyperkalemic at 6.1, with increased respiratory rate, chest x-ray showed pulmonary edema and he was given 1 dose of Lasix along with Solu-Medrol and was endorsed for further management of acute on chronic hypoxic and hypercapnic respiratory failure. Past Med Surg Social Fam HX - Past Medical History Medical history: arthritis, COPD, dementia, diabetes, GERD, hepatitis, hyperlipidemia, hypertension, myocardial infarction, osteoporosis, renal disease, syncope Additional medical history: CHRONIC KIDNEY DISEASE, SMOKER, HEPATITIS, SYNCOPE, OSTEOPOROSIS Psychiatric history: anxiety, depression, panic disorder - Past Surgical History Surgical History: cataract, LE stent(s), orthopedic, other Additional surgical history: CATARACT, LLE FRACTURE, LLE STENT, HERNIA REPAIR - Social History Smoking Status: Current every day smoker Smokeless Tobacco Status: No Alcohol use: none Drug use: none - Family History Mother Family Member Ethnicity: Non- Living Status: Hx Family Cardiac Disorders: Yes Hx Family Respiratory Disorders: Yes Hx Family Cancer: Yes Hx Family GI Disorders: No Hx Family Endocrine Disorder: Yes Hx Family Neuromuscular Disorders: No Hx Family Neurologic Disorders: Yes Hx Family HEENT Disorders: No Hx Family Autoimmune Disorders: No Father Living Status: Internal Medicine - H&P: Meds Albuterol Neb [Proventil Neb] 2.5 mg IH Q6H 08/20/18 [History] Albuterol Sulfate [Ventolin Hfa] 2 puff IH Q6H PRN 08/20/18 [History] Atorvastatin [Lipitor] 40 mg PO HS 08/20/18 [History] Carvedilol [Coreg] 25 mg PO BID 08/20/18 [History] Cholecalciferol (Vitamin D3) [Vitamin D3] 50,000 unit PO MÁRQUEZ 08/20/18 [History] Citalopram [CeleXA] 20 mg PO DAILY 08/20/18 [History] Ferrous Sulfate 325 mg PO BID 08/20/18 [History] Fluticasone Propionate [Flovent Diskus] 1 puff IH BID 08/20/18 [History] Gabapentin [Neurontin] 200 mg PO TID 08/20/18 [History] Insulin Glargine [Lantus] 60 unit SQ BID 08/20/18 [History] Insulin LISPRO [HumaLOG] 0 - 12 units SQ QID 08/20/18 [History] Insulin LISPRO [HumaLOG] 6 units SQ TIDWM 08/20/18 [History] Lactobacillus [Culturelle] 1 cap PO BID 08/20/18 [History] LevETIRAcetam [Keppra] 750 mg PO Q12H 08/20/18 [History] Magnesium Oxide [Magnesium] 400 mg PO BID 08/20/18 [History] Metformin HCl 500 mg PO BID 08/20/18 [History] Omeprazole [PriLOSEC] 20 mg PO DAILY 08/20/18 [History] Polyethylene Glycol 3350 [MiraLAX] 17 gm PO DAILY 08/20/18 [History] Pramipexole Di-HCl [Pramipexole Dihydrochloride] 0.125 mg PO HS 08/20/18 [Hi story] Sennosides/Docusate Sodium [Senna-Docusate Sodium Tablet] 1 tab PO HS PRN 08/20/18 [History] Tiotropium [Spiriva] 2 puff IH DAILY 08/20/18 [History] Trazodone HCl 50 mg PO HS 08/20/18 [History] Vitamin B Complex [B Complex] 1 tab PO DAILY 08/20/18 [History] amLODIPine [Norvasc] 5 mg PO QAM 08/20/18 [History] Aspirin 81 mg PO DAILY tab.chew 09/04/18 [Rx] Fenofibrate [Tricor] 135 mg PO DAILY tablet 09/04/18 [Rx] Insulin LISPRO [HumaLOG] 8 units SQ TIDWM vial 09/04/18 [Rx] Mometasone Furoate [Asmanex Hfa] 1 puff IH BIDRESP puff 09/04/18 [Rx] Allergy/AdvReac Type Severity Reaction Status Date / Time acetaminophen Allergy Hives Verified 09/19/17 12:11 [From Darvocet-N] ibuprofen Allergy Hives Verified 09/19/17 12:11 propoxyphene Allergy Hives Verified 09/19/17 12:11 [From Darvocet-N] tramadol [From Ultram] Allergy Hives Verified 09/19/17 12:11 All Systems PM: A 10-system review of systems was performed and is negative for pertinent findings except as documented above in the HPI. - Constitutional Vitals: Temp Pulse Resp BP Pulse Ox 97.5 F L 61 18 153/66 92 09/17/18 13:27 09/17/18 14:35 09/17/18 14:35 09/17/18 14:35 09/17/18 14:35 Exam: General: Patient is alert, oriented, in moderate distress distress, obese, speaks in 5 word sentences Head: atraumatic, normocephalic, Eye: normal appearance, PERRL, no scleral icterus, no conjunctival injection ENT: mucous membranes moist, normal external ear exam Neck: normal inspection, trachea midline, full ROM, no carotid bruits, JVD Chest: normal inspection, symmetric chest rise Respiratory: Tachypneic, course crackles in the anterior and posterior lung acharya, diffuse wheezing in the anterior and posterior chest . Cardiovascular:distant heart sounds secondary to body habitus Regular rate and rhythm. s1 and s2 No clicks, rubs, gallops, or murmors. Abdomen: Bowel sounds present normoactive x-4 quadrants. Abdomen is soft, nondistended. no Epigastric tenderness. No guarding or rebound. No organomegaly noted, obese, no CVA tenderness musculoskeletal: Spontaneously moving all extremities. +2 pitting edema, no calf tenderness Skin: warm, dry, intact. Neuro: Alert and oriented x4. Sensation light touch intact. No focal deficit Psych: Patient's affect is normal Internal Med - H&P Results - Labs CBC & Chem 7: 09/17/18 11:22 09/17/18 10:30 Labs: Short CBC 09/17/18 Range/Units 11:22 WBC 6.7 (4.3-11.1) K/mcL Hgb 7.7 L (12.9-16.9) g/dL Hct 24.4 L (37.5-50.1) % Plt Count 261 (140-400) K/mcL Neutrophils # 4.4 (1.6-8.9) K/mcL BMP 09/17/18 10:30 Sodium 139 Potassium 6.1 H Chloride 110 H Carbon Dioxide 22 L BUN 52 H Creatinine 2.65 H Glucose 89 Calcium 8.3 L Cardiac Enzymes 09/17/18 Range/Units 10:30 Troponin I < 0.03 (< 0.04) ng/mL Liver Function 09/17/18 Range/Units 10:30 Total Bilirubin 0.3 (0.3-1.0) mg/dL Direct Bilirubin 0.1 (0.0-0.2) mg/dL AST 12 L (13-39) Units/L ALT 13 (7-52) Units/L Alkaline Phosphatase 98 (34-104) Units/L Albumin 3.0 L (3.5-5.7) g/dL Urine 09/17/18 Range/Units 12:19 Urine Color Yellow (Yellow) Urine Clarity Cloudy A (Clear) Urine pH 5.0 (5.0-8.0) pH Units Ur Specific [place] 1.023 (1.010-1.025) Urine Protein >=300 H (Neg-Trace) mg/dL Urine Glucose (UA) Normal (Normal) mg/dL - ABG Interpretation ABG results: 09/17/18 10:47 ABG pH 7.29 L ABG pCO2 53 H ABG pO2 58 L ABG HCO3 26 ABG Total CO2 27 H ABG O2 Saturation 86 L ABG Base Excess -1 - Impressions ITS Impressions Chest X-Ray 09/17/18 10:18 IMPRESSION: Pulmonary edema. D/ / 09/17/2018 11:50:11 Roderick Ramirez MD / damaris Interpreting Provider: Roderick Ramirez MD - Assessment and plan (1) Acute on chronic diastolic heart failure Current Visit: Yes Status: Acute Assessment and plan: Chest x-ray with pulmonary edema Was started on Lasix 40 mg IV twice a day we will watch renal functions BNP mildly elevated 149 Strict intake and output Daily weights Fluid restriction <1L will continue home medications once confirmed TTE 08/2018- LVEF 60-65%. Moderate concentric left ventricular hypertrophy. Moderate left ventricular diastolic dysfunction. Normal right ventricular structure and function. No evidence of PFO with agitated saline contrast. Trace tricuspid regurgitation. Mild pulmonary hypertension. (2) HAP (hospital-acquired pneumonia) Current Visit: Yes Status: Acute Assessment and plan: Was started on broad-spectrum antibiotics vancomycin, Zosyn Blood cultures x2 Urine antigens- negative azithromycin was discontinued Respiratory viral panel Influenza negative proCalcitonin sent Lactic acid negative MRSA nasal swab (3) Acute exacerbation of chronic obstructive pulmonary disease (COPD) Current Visit: Yes Status: Acute Assessment and plan: Patient with diffuse wheezing on anterior chest Was started on broad-spectrum antibiotics vancomycin, Zosyn Blood cultures x2 Urine antigens- negative azithromycin was discontinued Respiratory viral panel Influenza negative proCalcitonin sent Lactic acid negative MRSA nasal swab BiPAP and repeat ABG in 2 hours Low threshold for intubation Solu-Medrol 125 mg was given in the ED will continue with 40 every 8 Duo nebs every 4 hours Continue home inhalers Keep sats around 90% (4) Acute and chronic respiratory failure with hypoxia Current Visit: Yes Status: Acute Assessment and plan: Secondary to above Management as per above BiPAP and repeat ABG in 2 hours Low threshold for intubation (5) Hyperkalemia Current Visit: Yes Status: Acute Assessment and plan: Kayexalate given in the emergency department Was given calcium gluconate Insulin 6 units was given Follow BMP at 3 PM Continue to correct potassium Nephrology consulted will follow recommendations (6) Acute renal failure Current Visit: Yes Status: Acute Assessment and plan: Most likely prerenal and possible ATN secondary to acute CHF exacerbation Has history of CKD 3A to 3B UA with RBCs and squamous epithelial cells Cardoso was inserted in the emergency department Follow urine sodium and osmolality Strict intake and output Avoid nephrotoxic medications Nephrology was consulted will follow recommendations On Lasix 40 IV twice a day- will consider reducing the dosage if renal functions continued to decline Renal ultrasound ordered Qualifiers: Acute renal failure type: with acute tubular necrosis Qualified Code(s): N17.0 - Acute kidney failure with tubular necrosis (7) Hyperlipidemia Current Visit: Yes Status: Acute Assessment and plan: Was counseled extensively on diet Triglycerides were 1926 on 09/02 along with elevated LDL and cholesterol Continue Lipitor Lipase within normal limit Qualifiers: Hyperlipidemia type: mixed hyperlipidemia Qualified Code(s): E78.2 - Mixed hyperlipidemia (8) Acute on chronic anemia Current Visit: Yes Status: Acute Assessment and plan: Acute on chronic anemia secondary to unknown etiology hemoglobin was 11.6 on 09/04 hours trended down to 7.7 on 09/17 Was transfused 1 unit of PRBC in the emergency department We will follow CBC every 8 hours- next one at 11 PM Iron panel, B12, folic acid PT/INR stat Protonix IV FOBT GI consult Transfuse as needed and keep H&H above 8 as he has cardiac history Avoid antiplatelets, anticoagulations, NSAIDs diet clear liquids until GI source has been eliminated (9) Tobacco abuse Current Visit: No Status: Chronic Assessment and plan: Nicotine patch Was counseled extensively on smoking cessation (10) Diabetes mellitus Current Visit: Yes Status: Acute Assessment and plan: uncontrolled, A1c 9.6 in 08/2018 will start him on his long acting insulin once confirmed, along with sliding scale Qualifiers: Diabetes mellitus type: type 2 Diabetes mellitus longterm insulin use: with longterm use Diabetes mellitus complication status: with circulatory complication Diabetes mellitus complication detail: with other circulatory complications Qualified Code(s): E11.59 - Type 2 diabetes mellitus with other circulatory complications; 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
[2018-09-17] MEDS ORDERED: Vancomycin 1,750 MG in 0.9 % Sodium Chloride 250 ML IVPB SCH (16:00)
[2018-09-17] MEDS: Ipratropium/Albuterol Neb 3 ML IH SCH ×3 (16:02→23:37)
[2018-09-17 16:09] LABS: Adenovirus Not Detected (Not Detect); Bordetella Pertussis Not Detected (Not Detect); Chlamydophila pneumoniae Not Detected (Not Detect); Coronavirus 229E Not Detected (Not Detect); Coronavirus HKU1 Not Detected (Not Detect); Coronavirus NL63 Not Detected (Not Detect); Coronavirus OC43 Not Detected (Not Detect); Human Metapneumovirus Not Detected (Not Detect); Human Rhinovirus/Enterovirus Not Detected (Not Detect); Influenza A Subtype 2009 H1 Not Detected (Not Detect); Influenza A Untypeable Not Detected (Not Detect); Influenza B Not Detected (Not Detect); Mycoplasma pneumoniae Not Detected (Not Detect); Parainfluenza Virus 1 Not Detected (Not Detect); Parainfluenza Virus 2 Not Detected (Not Detect); Parainfluenza Virus 3 Not Detected (Not Detect); Parainfluenza Virus 4 Not Detected (Not Detect); Respiratory Syncytial Virus Not Detected (Not Detect)
[2018-09-17] MEDS ORDERED: Pantoprazole 80 MG in 0.9 % Sodium Chloride 50 ML IVPB ONE (16:12)
[2018-09-17] MEDS: Piperacillin/Tazobactam 3.375 GM in 0.9 % Sodium Chloride Mini Bag 100 ML IVPB SCH (16:54)
[2018-09-17] MEDS: MethylPREDNISolone 40 MG/ML VIAL IVP SCH (16:54)
[2018-09-17] MEDS: Furosemide 40 MG/4 ML VIAL IVP SCH (16:54)
[2018-09-17] MEDS: levETIRAcetam 250 MG TABLET PO SCH (17:02)
[2018-09-17] MEDS: Insulin LISPRO 300 UNITS/3 ML VIAL SQ SCH ×2 (17:06→21:23)
[2018-09-17 17:08] LABS: INR 1.1; Prothrombin Time 12.3 Seconds (9.4-12.1)
[2018-09-17 17:18] LABS: Calcium 8.5 mg/dL (8.6-10.3); Potassium 5.3 mEq/L (3.5-5.1)
[2018-09-17 18:13] LABS: Vitamin B12 937 pg/mL (250-1100)
[2018-09-17 18:22] LABS: Folate > 22.3 ng/mL (3.0-16.0)
[2018-09-17 18:56] LABS: ABG Base Excess -4 mEq/L (-2 to 3); ABG HCO3 22 mEq/L (21-27); ABG Oxygen Saturation 89 % (95-98); ABG PCO2 41 mmHg (35-45); ABG PH 7.33 pH Units (7.32-7.45); ABG PO2 60 mmHg (85-104); ABG TCO2 23 mEq/L (20-26)
[2018-09-17] MEDS: Magnesium Oxide 400 MG TABLET PO SCH (21:23)
[2018-09-17] MEDS: Lactobacillus 1 EACH CAP.SPRINK PO SCH (21:23)
[2018-09-17 22:44] LABS: Hematocrit 26.3 % (37.5-50.1); Hemoglobin 8.5 g/dL (12.9-16.9); Mean Corpuscular HGB Conc 32.3 g/dL (31.6-35.5); Mean Corpuscular Hemoglobin 29.3 pg (28.0-33.3); Mean Corpuscular Volume 90.7 fL (83.0-100.0); Mean Platelet Volume 8.7 fL (9.4-12.4); Platelet Count 274 K/mcL (140-400); Red Cell Distribution Width 13.6 % (11.5-14.5)
[2018-09-18] MEDS: MethylPREDNISolone 40 MG/ML VIAL IVP SCH ×4 (01:00→23:35)
[2018-09-18] MEDS: Piperacillin/Tazobactam 3.375 GM in 0.9 % Sodium Chloride Mini Bag 100 ML IVPB SCH ×4 (01:00→23:35)
[2018-09-18 03:25] LABS: Amphetamine Screen,Urine Negative ng/mL (Cutoff=1000); Barbiturate Screen,Urine Negative ng/mL (Cutoff=200); Benzodiazepines Screen,Urine Negative ng/mL (Cutoff=200); Cannabinoid Screen,Urine Negative ng/mL (Cutoff = 50); Cocaine Screen,Urine Negative ng/mL (Cutoff= 300); Opiate Screen,Urine Negative ng/mL (Cutoff=300); Phencyclidine Screen,Urine Negative ng/mL (Cutoff=25)
[2018-09-18] MEDS: Ipratropium/Albuterol Neb 3 ML IH SCH ×5 (04:24→20:33)
[2018-09-18] MEDS: levETIRAcetam 250 MG TABLET PO SCH ×3 (04:36→23:59)
--- NOTE | 2018-09-18 06:32 | Electrocardiograph Report ---
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
[2018-09-18 06:46] LABS: Basophils % 0.2 %; Hematocrit 26.5 % (37.5-50.1); Hemoglobin 8.6 g/dL (12.9-16.9); Immature Granulocytes % 1.6 % (0-4); Lymphocytes # 0.5 K/mcL (0.6-4.6); Lymphocytes % 9.4 %; Mean Corpuscular HGB Conc 32.5 g/dL (31.6-35.5); Mean Corpuscular Hemoglobin 28.8 pg (28.0-33.3); Mean Corpuscular Volume 88.6 fL (83.0-100.0); Mean Platelet Volume 9.2 fL (9.4-12.4); Monocytes # 0.3 K/mcL (0.0-1.3); Monocytes % 4.5 %; Neutrophils # 4.9 K/mcL (1.6-8.9); Nucleated Red Blood Cells 0.3 /100 WBC (0); Platelet Count 297 K/mcL (140-400); Red Blood Count 2.99 M/mcL (4.19-5.50); Red Cell Distribution Width 13.6 % (11.5-14.5); Segmented Neutrophils % 84.3 %
[2018-09-18 07:04] LABS: Calcium 8.4 mg/dL (8.6-10.3); Chol/HDL Ratio 7.2 (0-4.9); Magnesium 2.2 mg/dL (1.6-2.6); Phosphorous 5.1 mg/dL (2.7-4.5); Potassium 4.8 mEq/L (3.5-5.1)
[2018-09-18 07:17] LABS: Thyroid Stimulating Hormone 1.224 mcIU/mL (0.340-5.600)
[2018-09-18 07:39] LABS: Estimated Average Glucose 252 mg/dl; Hemoglobin A1C 10.4 %
[2018-09-18] MEDS ORDERED: Pantoprazole 40 MG VIAL IVP SCH (09:00)
--- NOTE | 2018-09-18 09:00 | Nephrology Consult Note ---
Addendum entered and electronically signed by Carlyle Purdy DO 09/18/18 18:52: I examined this patient and my medical decision-making was reviewed with the Resident Physician. I agree with the documented findings, disposition and treatment plan as described except to the extent set forth below. Pleasant 63 y/o WM with a pmh of CKD stage III who presented with a nonoliguric DANY in the setting of diastolic HF and worsening anemia. Agree with GI work up. SCr slightly improved today. Will recommend following a renal protective/conservative strategy. See below for details. Thank you for consulting the [facility] group. Original Note: Date of Encounter: 09/18/18 Time of Encounter: 08:58 Assessment and Plan (1) Acute kidney injury superimposed on chronic kidney disease Current Visit: Yes Status: Acute - Unknown etiology at this time, possibly prerenal with CHF exacerbation - Patient has a known history of CKD stage III - Per chart review, patients baseline creatinine appears to be between 2 and 2.5 - Serum creatinine on arrival was 2.65, has subsequently decreased to 2.49 - Patient is currently receiving 40 mg Lasix IV twice a day for CHF exacerbation - Retroperitoneal U/S demonstrated the following: Small amount of perinephric fluid anterior and inferior to each kidney - Urinalysis: Protein greater than 300, 5-15 red blood cells, 3-5 white blood cells Plan: - Patient's creatinine appears to be improving and is approaching baseline - Continue diuresis as necessary - Pharmacy to dose vancomycin; de-escalate antibiotics if possible - Strict Is and Os, daily weights - Renally dose medications and avoid nephrotoxins when possible (2) Hyperkalemia Current Visit: Yes Status: Resolved - On arrival, patient was found to have an elevated potassium at 6.1 - Kayexalate was administered in the emergency department - Patient was also given calcium gluconate, IV insulin 6 units - Potassium level has subsequently decreased to 4.8 - Repeat a.m. labs and continue to monitor (3) Acute on chronic anemia Current Visit: Yes Status: Acute - Per chart review, patient is chronically anemic, with a baseline hemoglobin between 8 and 9 - Patient presented with a low hemoglobin of 7.7 - Status post 1 unit packed red blood cells in the emergency department - CBC has been ordered every 8 hours - FOBT ordered and Protonix IV has been started - GI consult that (4) Acute on chronic diastolic heart failure Current Visit: Yes Status: Acute - Patient has a known history of HFpEF - Presented with increased O2 demand, PND, lower extremity swelling - TTE 08/24: LVEF 60-65%, moderate concentric LVH, mild pulmonary HTN - Chest x-ray: Pulmonary edema - BNP: 149 Plan: - Continue Lasix 40 mg IV twice a day - Fluid restriction, daily weights - Supplemental O2 as needed; maintain SPO2 greater than 92% (5) Hospital-acquired pneumonia Current Visit: Yes Status: Acute - Presented with increased sputum production and cough - Patient was started on vancomycin and Zosyn - Load cultures were drawn 2 and are currently pending - Urine antigens for strep and legionella were negative - Respiratory infection panel was negative - Recalcitrant and pending - MRSA nasal swab pending - Management per primary team (6) COPD exacerbation Current Visit: Yes Status: Acute - Known history of COPD - Continue home inhalers, DuoNeb every 4 hours - Solu-Medrol 40 mg IV every 8 - Supplemental O2 as needed - Management Per primary team History of Present Illness - History of Present Illness Nikita Regalado is a 63 year old male with a PMH of arthritis, COPD, dementia, diabetes, GERD, hepatitis, hyperlipidemia, hypertension, myocardial infarction, osteoporosis, CKD stage III presented to [facility] on 09/17/18 with a chief complaint of shortness of breath. Patient reported that his symptoms started approximately 3 days prior to admission and got progressively worse. Patient was given steroids at the nursing facility with no improvement. Was transferred to [facility] for further management. Reported shortness of breath at rest and on exertion. Reported an increasing O2 requirement. Patient also had PND and bilateral lower extremity edema. He also had a productive cough with yellow sputum. Recent admission to [facility] for unilateral weakness and hyper osmolar nonketotic state. Patient was found to be hyperkalemic on arrival with a potassium of 6.1. Chest x-ray demonstrated pulmonary edema. Patient was given 1 dose of Lasix and Solu-Medrol. He was admitted for acute COPD and acute on chronic diastolic systolic heart failure. Nephrology is consulted for acute on chronic renal failure. Patients potassium has since improved to 4.8. Patients creatinine was 2.65 on arrival, and has since decreased to 2.49. Patients baseline per chart review appears to be between 2.0 and 2.5. Patient was seen and examined at bedside; his main complaint today is back pain. He states that he does not currently see a unix administrator, but that he did previously. He is unsure of long ago it was. He states that his CKD is likely due to his diabetes. He has some mild shortness of breath, but no other complaints at this time. Past Med Surg Social Fam HX - Past Medical History Medical history: arthritis, COPD, dementia, diabetes, GERD, hepatitis, hyperlipidemia, hypertension, myocardial infarction, osteoporosis, renal disease, syncope Additional medical history: CHRONIC KIDNEY DISEASE, SMOKER, HEPATITIS, SYNCOPE, OSTEOPOROSIS Psychiatric history: anxiety, depression, panic disorder - Past Surgical History Surgical History: cataract, LE stent(s), orthopedic, other Additional surgical history: CATARACT, LLE FRACTURE, LLE STENT, HERNIA REPAIR - Social History Smoking Status: Current every day smoker Smokeless Tobacco Status: No Alcohol use: none Drug use: none - Family History Mother Family Member Ethnicity: Non- Living Status: Hx Family Cardiac Disorders: Yes Hx Family Respiratory Disorders: Yes Hx Family Cancer: Yes Hx Family GI Disorders: No Hx Family Endocrine Disorder: Yes Hx Family Neuromuscular Disorders: No Hx Family Neurologic Disorders: Yes Hx Family HEENT Disorders: No Hx Family Autoimmune Disorders: No Father Living Status: Medications and Allergies Albuterol Sulfate [Ventolin Hfa] 2 puff IH Q6H PRN 08/20/18 [History] Atorvastatin [Lipitor] 40 mg PO HS 08/20/18 [History] Carvedilol [Coreg] 25 mg PO BID 08/20/18 [History] Cholecalciferol (Vitamin D3) [Vitamin D3] 50,000 unit PO MÁRQUEZ 08/20/18 [History] Citalopram [CeleXA] 20 mg PO DAILY 08/20/18 [History] Ferrous Sulfate 325 mg PO BID 08/20/18 [History] Fluticasone Propionate [Flovent Diskus] 1 puff IH BID 08/20/18 [History] Gabapentin [Neurontin] 200 mg PO TID 08/20/18 [History] Insulin LISPRO [HumaLOG] 0 - 12 units SQ QID PRN 08/20/18 [History] Lactobacillus [Culturelle] 1 cap PO BID 08/20/18 [History] LevETIRAcetam [Keppra] 750 mg PO Q12H 08/20/18 [History] Magnesium Oxide [Magnesium] 400 mg PO BID 08/20/18 [History] Metformin HCl 500 mg PO BID 08/20/18 [History] Polyethylene Glycol 3350 [MiraLAX] 17 gm PO HS 08/20/18 [History] Pramipexole Di-HCl [Pramipexole Dihydrochloride] 0.125 mg PO HS 08/20/18 [History] Sennosides/Docusate Sodium [Senna-Docusate Sodium Tablet] 1 tab PO HS PRN 08/20/18 [History] Tiotropium [Spiriva] 2 puff IH DAILY 08/20/18 [History] Trazodone HCl 50 mg PO HS 08/20/18 [History] Vitamin B Complex [B Complex] 1 tab PO DAILY 08/20/18 [History] amLODIPine [Norvasc] 5 mg PO DAILY 08/20/18 [History] Albuterol Neb [Proventil Neb] 2.5 mg IH QID 09/18/18 [History] Amoxicillin/Clavulanate [Augmentin] 1 tab PO BID 09/18/18 [History] Aspirin Enteric Coated [Aspirin EC] 81 mg PO DAILY 09/18/18 [History] Docusate Sodium [Doc-Q-Lace] 100 mg PO HS PRN 09/18/18 [History] Enalapril Maleate [Vasotec] 10 mg PO HS 09/18/18 [History] Furosemide [Lasix] 80 mg PO DAILY 09/18/18 [History] Guaifenesin [Mucinex] 600 mg PO Q12H 09/18/18 [History] Insulin Glargine [Lantus] 60 unit SQ BID 09/18/18 [History] Insulin LISPRO [HumaLOG] 6 units SQ TID 09/18/18 [History] Omeprazole Magnesium [Prilosec Otc] 20 mg PO DAILY 09/18/18 [History] Allergy/AdvReac Type Severity Reaction Status Date / Time acetaminophen Allergy Hives Verified 09/19/17 12:11 [From Darvocet-N] ibuprofen Allergy Hives Verified 09/19/17 12:11 propoxyphene Allergy Hives Verified 09/19/17 12:11 [From Darvocet-N] tramadol [From Ultram] Allergy Hives Verified 09/19/17 12:11 Review of Systems Constitutional: as per HPI, no chills, no fever(s), no lethargy Cardiovascular: as per HPI, dyspnea, no chest pain Respiratory: as per HPI, cough, dyspnea Gastrointestinal: as per HPI, bloating, no nausea Genitourinary Male: as per HPI, no urinary urgency Exam - Vital Signs Vital signs: Initial Vital Signs Temp Pulse Resp BP Pulse Ox 97.9 F 57 28 124/56 76 09/17/18 10:08 09/17/18 10:08 09/17/18 10:08 09/17/18 10:08 09/17/18 10:08 Vital Signs - Last 8 Hours Temp Pulse Resp BP Pulse Ox 09/18/18 07:44 14 95 09/18/18 07:20 97.6 F 69 14 176/81 97 09/18/18 04:25 14 93 09/18/18 04:24 96 09/18/18 04:00 98.2 F 69 22 175/76 95 Intake and Output 09/17/18 09/18/18 09/18/18 23:59 07:59 15:59 Intake Total 100 / 100 120 / 120 Output Total 300 / 300 800 / 800 Balance -200 / -200 -680 / -680 Intake: IV Fluids 100 / 100 Zosyn 3.375 GM In 0.9 % Sodium 100 / 100 Chloride (Mini-Bag +) 100 ML @ 25 mls/hr IVPB Q8HR [facility] Rx#: [id number] Oral 120 / 120 Output: Catheter 300 / 300 800 / 800 Other: Weight 117.4 kg Blood Glucose* 267 312 Patient Weight 09/18/18 23:59 Weight 117.4 kg - General Appearance Exam: General: Mild distress due to back pain Head: atraumatic, normocephalic Eye: PERRL, EOMI, conjuntiva pink, sclera anicteric Neck: Supple, trachea midline; No lymphadenopathy Respiratory: Diminished breath sounds, shortened inspiratory phase Cardiovascular: RRR, +S1, +S2; no murmurs, rubs, gallops Abdomen: Distended, non-tender Extremities: +1 pitting edema in b/l LEs Neurological: No focal deficits noted Psychiatric: Normal affect, normal mood Skin: Dry, intact Results - Lab Results 09/18/18 06:10 09/18/18 06:10 Most recent lab results ABG pH 7.33 pH Units (7.32-7.45) 09/17/18 18:38 ABG pCO2 41 mmHg (35-45) 09/17/18 18:38 ABG pO2 60 mmHg (85-104) L 09/17/18 18:38 ABG HCO3 22 mEq/L (21-27) 09/17/18 18:38 ABG O2 Saturation 89 % (95-98) L 09/17/18 18:38 Calcium 8.4 mg/dL (8.6-10.3) L 09/18/18 06:10 Phosphorus 5.1 mg/dL (2.7-4.5) H 09/18/18 06:10 Magnesium 2.2 mg/dL (1.6-2.6) 09/18/18 06:10 Urine Sodium 49.4 mEq/L 09/17/18 02:25 Consult Discharge Plan - Plan Referrals: Mark Coe MD [Primary Care Provider] -
[2018-09-18] MEDS: Magnesium Oxide 400 MG TABLET PO SCH ×2 (09:14→21:27)
[2018-09-18] MEDS: Nicotine 21 MG PATCH.TD24 TD SCH (09:14)
[2018-09-18] MEDS: Fenofibrate 54 MG TABLET PO SCH (09:15)
[2018-09-18] MEDS: Lactobacillus 1 EACH CAP.SPRINK PO SCH ×2 (09:16→21:27)
[2018-09-18] MEDS: Furosemide 40 MG/4 ML VIAL IVP SCH ×2 (09:17→17:14)
[2018-09-18] MEDS: Insulin LISPRO 300 UNITS/3 ML VIAL SQ SCH ×4 (09:18→21:32)
[2018-09-18] MEDS: amLODIPine 5 MG TABLET PO SCH (09:21)
[2018-09-18] MEDS: Insulin DETEMIR 100 UNIT/ML X5UNITS SQ SCH ×2 (09:54→21:30)
--- NOTE | 2018-09-18 11:30 | Internal Med Progress Note ---
Hospitalist Progress Note - Encounter Date of Encounter: 09/18/18 Time of Encounter: 09:00 - Subjective Interval History: Patient was seen and examined at bedside. Reports that he has improvement in his respiratory status as compared to admission. Denies diarrhea has had 2 formed stools. Reports that his back pain is mildly improved with the lidocaine that was provided this morning. Tolerating by mouth diet - Exam Vitals: Temp Pulse Resp BP Pulse Ox 97.6 F 69 14 176/81 95 09/18/18 07:20 09/18/18 07:20 09/18/18 07:44 09/18/18 07:20 09/18/18 07:44 Exam: General: Patient is alert, oriented, in moderate distress distress, obese, speaks in 5 word sentences Head: atraumatic, normocephalic, Eye: normal appearance, PERRL, no scleral icterus, no conjunctival injection ENT: mucous membranes moist, normal external ear exam Neck: normal inspection, trachea midline, full ROM, no carotid bruits, JVD Chest: normal inspection, symmetric chest rise Respiratory: Tachypneic, course crackles in the anterior and posterior lung acharya, diffuse wheezing in the anterior and posterior chest .- improved Cardiovascular:distant heart sounds secondary to body habitus Regular rate and rhythm. s1 and s2 No clicks, rubs, gallops, or murmors. Abdomen: Bowel sounds present normoactive x-4 quadrants. Abdomen is soft, nondistended. no Epigastric tenderness. No guarding or rebound. No organomegaly noted, obese, no CVA tenderness musculoskeletal: Spontaneously moving all extremities. +2 pitting edema, no calf tenderness Skin: warm, dry, intact. Right lower extremity is wrapped with clean dressing Neuro: Alert and oriented x4. Sensation light touch intact. No focal deficit Psych: Patient's affect is normal - Assessment and Plan (1) Acute on chronic diastolic heart failure Current Visit: Yes Status: Acute Assessment and Plan: Chest x-ray with pulmonary edema Was started on Lasix 40 mg IV twice a day we will watch renal functions- balance of -530 BNP mildly elevated 149 Strict intake and output Daily weights Fluid restriction <1L We will hold beta blockers as he is in acute CHF. will start him on ASA - on allergies 9 ibuprofen is listed will speak with him and discuss his allergy) TTE 08/2018- LVEF 60-65%. Moderate concentric left ventricular hypertrophy. Moderate left ventricular diastolic dysfunction. Normal right ventricular structure and function. No evidence of PFO with agitated saline contrast. Trace tricuspid regurgitation. Mild pulmonary hypertension. (2) Hospital-acquired pneumonia Current Visit: Yes Status: Acute Assessment and Plan: on Zosyn IV Blood cultures- NGTD Urine antigens- negative azithromycin was discontinued MRSA nasal swab- negative - vancomycin discontinued. Respiratory viral panel- negative Influenza negative proCalcitonin - pending Lactic acid negative sputum cx - contaminated- will resend (3) Acute kidney injury superimposed on chronic kidney disease Current Visit: Yes Status: Acute (4) Acute exacerbation of chronic obstructive pulmonary disease (COPD) Current Visit: Yes Status: Acute Assessment and Plan: Patient with diffuse wheezing on anterior chest- improved on Abx as above Solu-Medrol 125 mg was given in the ED will continue with 40 every 8 BiPAP and repeat ABG in 2 hours Low threshold for intubation Duo nebs every 4 hours Continue home inhalers Keep sats around 90% (5) Acute and chronic respiratory failure with hypoxia Current Visit: Yes Status: Acute Assessment and Plan: Secondary to above Management as per above ABg improved BIPAP at nights Low threshold for intubation (6) Acute on chronic anemia Current Visit: Yes Status: Acute Assessment and Plan: Acute on chronic anemia secondary to unknown etiology hemoglobin was 11.6 on 09/04 hours trended down to 7.7 on 09/17 s/p 1 prbc with improvement of H/H We will follow CBC every 8 hours- next one at 11 PM Iron panel anemia of chronic disease- continue oral iron B12 WNL , folic acid WNL Protonix IV- will transition him to po FOBT- negative GI consulted as he has history of GI bleed Transfuse as needed and keep H&H above 8 as he has cardiac history Avoid antiplatelets, anticoagulations, NSAIDs will advance diet to diabetic (7) Acute renal failure Current Visit: Yes Status: Acute Assessment and Plan: Most likely prerenal and possible ATN secondary to acute CHF exacerbation- renal functions are improving Has history of CKD 3A to 3B UA with RBCs and squamous epithelial cells s/p garcia Strict intake and output Avoid nephrotoxic medications Nephrology was consulted will follow recommendations On Lasix 40 IV twice a day- will consider reducing the dosage if renal functions continued to decline renal US: IMPRESSION: Small amount of perinephric fluid anterior and inferior to each kidney. The kidneys are otherwise unremarkable in appearance. (8) Diabetes mellitus Current Visit: Yes Status: Acute Assessment and Plan: uncontrolled, A1c 9.6 in 08/2018 started on long acting insulin- adjust as per finger sticks along with sliding scale (9) Hyperlipidemia Current Visit: Yes Status: Acute (10) DVT prophylaxis Current Visit: Yes Status: Acute Assessment and Plan: SCDs for now as he is found to be anemic- if H/H stable will consider starting heparin SC (11) Tobacco abuse Current Visit: No Status: Chronic (12) Back pain Current Visit: Yes Status: Acute Assessment and Plan: started lidocaine patch Pt/OT consulted lumbar xray with IMPRESSION: No acute abnormalities identified within lumbar spine. Multilevel degenerative disc and facet disease, greatest L4-L5 and L5-S1. Calcification overlying the right renal shadow, raises the possibility of nephrolithiasis. (13) Hyperkalemia Current Visit: Yes Status: Resolved Assessment and Plan: Treated and resolved - Time Spent with Patient Total time spent is greater than 50% in coordination of care (as documented) at patient's floor/unit and/or counseling patient: Internal Medicine: Result - Labs CBC & Chem 7: 09/18/18 06:10 09/18/18 06:10 Labs: Short CBC 09/17/18 09/17/18 09/18/18 Range/Units 11:22 22:34 06:10 WBC 6.7 5.5 5.8 (4.3-11.1) K/mcL Hgb 7.7 L 8.5 L 8.6 L (12.9-16.9) g/dL Hct 24.4 L 26.3 L 26.5 L (37.5-50.1) % Plt Count 261 274 297 (140-400) K/mcL Neutrophils # 4.4 4.9 (1.6-8.9) K/mcL BMP 09/17/18 09/18/18 16:26 06:10 Sodium 138 139 Potassium 5.3 H 4.8 Chloride 110 H 110 H Carbon Dioxide 20 L 19 L BUN 54 H 57 H Creatinine 2.65 H 2.49 H Glucose 214 H 300 H Calcium 8.5 L 8.4 L Urine 09/17/18 Range/Units 12:19 Urine Color Yellow (Yellow) Urine Clarity Cloudy A (Clear) Urine pH 5.0 (5.0-8.0) pH Units Ur Specific [place] 1.023 (1.010-1.025) Urine Protein >=300 H (Neg-Trace) mg/dL Urine Glucose (UA) Normal (Normal) mg/dL - ABG Interpretation ABG results: ABG ABG pH 7.33 pH Units (7.32-7.45) 09/17/18 18:38 ABG pCO2 41 mmHg (35-45) 09/17/18 18:38 ABG pO2 60 mmHg (85-104) L 09/17/18 18:38 ABG O2 Saturation 89 % (95-98) L 09/17/18 18:38 PT/INR, D-dimer PT 12.3 Seconds (9.4-12.1) H 09/17/18 16:26 - Impressions Impressions Chest X-Ray 09/17/18 10:18 IMPRESSION: Pulmonary edema. D/ / 09/17/2018 11:50:11 Roderick Ramirez MD / damaris Interpreting Provider: Roderick Ramirez MD Lumbar Spine X-Ray 09/17/18 15:41 IMPRESSION: No acute abnormalities identified within lumbar spine. Multilevel degenerative disc and facet disease, greatest L4-L5 and L5-S1. Calcification overlying the right renal shadow, raises the possibility of nephrolithiasis. D/ / Mika Mohr MD / Mika Mohr MD Interpreting Provider: Mika Mohr MD Retroperitoneum Ultrasound 09/17/18 17:30 IMPRESSION: Small amount of perinephric fluid anterior and inferior to each kidney. The kidneys are otherwise unremarkable in appearance. D/ / Kimmie Berumen MD / Kimmie Berumen MD Interpreting Provider: Kimmie Berumen MD Consult Discharge Plan - Plan Referrals: Mark Coe MD [Primary Care Provider] - (7) Acute renal failure Qualifiers: Acute renal failure type: with acute tubular necrosis Qualified Code(s): N17.0 - Acute kidney failure with tubular necrosis (8) Diabetes mellitus Qualifiers: Diabetes mellitus type: type 2 Diabetes mellitus longwall foreman insulin use: with longwall foreman use Diabetes mellitus complication status: with circulatory complication Diabetes mellitus complication detail: with other circulatory complications Qualified Code(s): E11.59 - Type 2 diabetes mellitus with other circulatory complications; Z79.4 - MCFP (current) use of insulin (9) Hyperlipidemia Qualifiers: Hyperlipidemia type: mixed hyperlipidemia Qualified Code(s): E78.2 - Mixed hyperlipidemia (12) Back pain Qualifiers: Back pain location: low back pain Chronicity: chronic Back pain laterality: bilateral Sciatica presence: without sciatica Qualified Code(s): M54.5 - Low back pain; G89.29 - Other chronic pain
--- NOTE | 2018-09-18 13:06 | Gastroenterology Consult Note ---
<Jillian Mitchell - Last Filed: 09/18/18 13:07> Date of Encounter: 09/18/18 Time of Encounter: 10:30 - Assessment and plan (1) Anemia Current Visit: Yes Status: Chronic Assessment and plan: 63-year-old male who presented with shortness of breath from SNF. hEMOGLOBIN 7.7, HE HAS CHRONIC ANEMIA, likely multifactoral. wORKUP LAST YEAR FOR ANEMIA WAS NEGATIVE. wE WILLPROCEED WITH PUSH ENTEROSCOPY AND COLONOSCOPY TOMORROW RULE OUT ESOPHAGITIS GASTRITIS DUODENITIS PEPTIC ULCER DISEASE Marc-Ramos TEAR OR avm, if endoscopy is negative will need capsule endoscopy as an outpatient. Monitor H&H, transfuse as needed. Qualifiers: Anemia type: unspecified type Qualified Code(s): D64.9 - Anemia, unspecified (2) CKD (chronic kidney disease) stage 3, GFR 30-59 ml/min Current Visit: No Status: Chronic (3) Diastolic CHF Current Visit: No Status: Chronic Qualifiers: Heart failure chronicity: chronic Qualified Code(s): I50.32 - Chronic diastolic (congestive) heart failure - Time Spent With Patient Total time spent is greater than 50% in coordination of care (as documented) at patient's floor/unit and/or counseling patient: GI History of Present Illness - Data of Consult Patient: known to practice within the last 3 years Consult date: 09/18/18 Requesting Physician: Abhishek Nieto MD - Consult Narrative Reason for consult: anemia History of present illness: Mr. Regalado is a 63 year old male with history of COPD not on home oxygen, CAD status post RI in 2017, heart failure preserved ejection fraction 60-65%, stage 3a and 3b CKD, GERD, arthritis, osteoporosis, dementia, and hepatitis presented to the emergency department from [facility] with shortness of breath. As per patient his symptoms started 3 days prior to admission and has progressively worsened. Nursing staff called the nurse practitioner who works at the nursing facility and he was started on steroids without any improvement so it was decided to transfer him to [place] for further management. He reports that his shortness of breath occurs both at rest and on ambulation, he is currently not on any home oxygen however he has required increased oxygen use while at the intermediate for the past 3 days. Shortness of breath is also accompanied by a productive cough with yellow sputum, he denies blood. He reports that sitting up and oxygen alleviates his symptoms however his symptoms are aggravated on ambulation and laying flat in the bed. he was found to have v of 26.5, iron 16, iron saturation 5%. Stool was negative for occult blood he is not currently on any blood thinners other than 81 mg aspirin. He had admission for anemia in December 2016 and EGD and colonoscopy by Dr. Christy. He complains of some epigastric tenderness, he had diarrhea for 2 daysprior to admission. He denies any black or bloody stools. colonoscopy: December 2016 2 polyps EGD: December 2016 normal NSAIDs: Aspirin 81 mg Anticoagulants: None Past Med Surg Social Fam HX - Past Medical History Medical history: arthritis, COPD, dementia, diabetes, GERD, hepatitis, hyperlipidemia, hypertension, myocardial infarction, osteoporosis, renal disease, syncope Additional medical history: CHRONIC KIDNEY DISEASE, SMOKER, HEPATITIS, SYNCOPE, OSTEOPOROSIS Psychiatric history: anxiety, depression, panic disorder - Past Surgical History Surgical History: cataract, LE stent(s), orthopedic, other Additional surgical history: CATARACT, LLE FRACTURE, LLE STENT, HERNIA REPAIR - Social History Smoking Status: Current every day smoker Smokeless Tobacco Status: No Alcohol use: none Drug use: none - Family History Mother Family Member Ethnicity: Non- Living Status: Hx Family Cardiac Disorders: Yes Hx Family Respiratory Disorders: Yes Hx Family Cancer: Yes Hx Family GI Disorders: No Hx Family Endocrine Disorder: Yes Hx Family Neuromuscular Disorders: No Hx Family Neurologic Disorders: Yes Hx Family HEENT Disorders: No Hx Family Autoimmune Disorders: No Father Living Status: Review of Systems: GI: as per [facility] GENERAL: denies fever or chills EYES: denies yellow discoloration ENT: denies pain with swallowing or difficulty swallowing CARDIO: denies chest pain, palpitations RESP: Shortness of breath with exertion : denies change in color of urine NEURO: weakness HEME: Denies any bruising MS: denies joint pain, joint swelling or back pain. DERM: denies rash or itching PSYCH: Denies history of anxiety or depression - Constitutional Vitals: Temp Pulse Resp BP Pulse Ox 97.6 F 69 18 176/81 95 09/18/18 07:20 09/18/18 07:20 09/18/18 11:31 09/18/18 07:20 09/18/18 11:31 Exam: CONSTITUTIONAL:alert, no acute distress.HEAD:normocephalic.EYES:no jaundice.NECK:no obvious swelling.HEART:regular rate and rhythm, no murmurs.LUNGS:bilateral poor air entry.ABDOMEN:round, distended, soft, tender epigastric area, no masses palpable, no organomegaly.RECTAL EXAM:Deferred.EXTREMITIES:no clubbing, cyanosis, 1-2+ bLE edema.SKIN:no stigmata of chronic liver disease, pallor noted.NEUROLOGIC:no obvious focal defect. Results - Labs CBC & Chem 7: 09/18/18 06:10 09/18/18 06:10 Labs: Last Result Calcium 8.4 mg/dL (8.6-10.3) L 09/18/18 06:10 Iron 16 mcg/dL (65-175) L 09/17/18 16:26 % Saturation 5 % (20-55) L 09/17/18 16:26 Transferrin 224 mg/dL (203-362) 09/17/18 16:26 Troponin I < 0.03 ng/mL (< 0.04) 09/17/18 10:30 Triglycerides 207 mg/dL (< 150) H 09/18/18 06:10 Vitamin B12 937 pg/mL (250-1100) 09/17/18 16:27 Folate > 22.3 ng/mL (3.0-16.0) H 09/17/18 16:27 Urine Opiates Screen Negative ng/mL (Obkzor=737) 09/17/18 02:25 Entire Visit Hgb 8.6 g/dL (12.9-16.9) L 09/18/18 06:10 Hct 26.5 % (37.5-50.1) L 09/18/18 06:10 PT 12.3 Seconds (9.4-12.1) H 09/17/18 16:26 Total Bilirubin 0.3 mg/dL (0.3-1.0) 09/17/18 10:30 AST 12 Units/L (13-39) L 09/17/18 10:30 ALT 13 Units/L (7-52) 09/17/18 10:30 Lipase 14 Units/L (11-82) 09/17/18 10:30 Folate > 22.3 ng/mL (3.0-16.0) H 09/17/18 16:27 - ABG ABG results: ABG ABG pH 7.33 pH Units (7.32-7.45) 09/17/18 18:38 ABG pCO2 41 mmHg (35-45) 09/17/18 18:38 ABG pO2 60 mmHg (85-104) L 09/17/18 18:38 ABG O2 Saturation 89 % (95-98) L 09/17/18 18:38 PT/INR, D-dimer PT 12.3 Seconds (9.4-12.1) H 09/17/18 16:26 - Impressions Impressions Chest X-Ray 09/17/18 10:18 IMPRESSION: Pulmonary edema. D/ / 09/17/2018 11:50:11 Roderick Ramirez MD / damaris Interpreting Provider: oRderick Ramirez MD Lumbar Spine X-Ray 09/17/18 15:41 IMPRESSION: No acute abnormalities identified within lumbar spine. Multilevel degenerative disc and facet disease, greatest L4-L5 and L5-S1. Calcification overlying the right renal shadow, raises the possibility of nephrolithiasis. D/ / Mika Mohr MD / Mika Mohr MD Interpreting Provider: Mika Mohr MD Retroperitoneum Ultrasound 09/17/18 17:30 IMPRESSION: Small amount of perinephric fluid anterior and inferior to each kidney. The kidneys are otherwise unremarkable in appearance. D/ / Kimmie Berumen MD / Kimmie Berumen MD Interpreting Provider: Kimmie Berumen MD Consult Discharge Plan - Plan Referrals: Mark Coe MD [Primary Care Provider] - <Des Christy - Last Filed: 09/18/18 21:15> Date of Encounter: 09/18/18 Time of Encounter: 17:45 - Time Spent With Patient Total time spent is greater than 50% in coordination of care (as documented) at patient's floor/unit and/or counseling patient: GI History of Present Illness - Data of Consult Requesting Physician: Abhishek Nieto MD - Consult Narrative History of present illness: Mr. Regalado is a 63 year old male - Constitutional Vitals: Temp Pulse Resp BP Pulse Ox 97.5 F L 81 18 173/75 96 09/18/18 19:30 09/18/18 19:30 09/18/18 20:33 09/18/18 19:30 09/18/18 20:33 Results - Labs CBC & Chem 7: 09/18/18 06:10 09/18/18 06:10 Labs: Last Result Calcium 8.4 mg/dL (8.6-10.3) L 09/18/18 06:10 Iron 16 mcg/dL (65-175) L 09/17/18 16:26 % Saturation 5 % (20-55) L 09/17/18 16:26 Transferrin 224 mg/dL (203-362) 09/17/18 16:26 Troponin I < 0.03 ng/mL (< 0.04) 09/17/18 10:30 Triglycerides 207 mg/dL (< 150) H 09/18/18 06:10 Vitamin B12 937 pg/mL (250-1100) 09/17/18 16:27 Folate > 22.3 ng/mL (3.0-16.0) H 09/17/18 16:27 Urine Opiates Screen Negative ng/mL (Cqhldh=959) 09/17/18 02:25 Entire Visit Hgb 8.6 g/dL (12.9-16.9) L 09/18/18 06:10 Hct 26.5 % (37.5-50.1) L 09/18/18 06:10 PT 12.3 Seconds (9.4-12.1) H 09/17/18 16:26 Total Bilirubin 0.3 mg/dL (0.3-1.0) 09/17/18 10:30 AST 12 Units/L (13-39) L 09/17/18 10:30 ALT 13 Units/L (7-52) 09/17/18 10:30 Lipase 14 Units/L (11-82) 09/17/18 10:30 Folate > 22.3 ng/mL (3.0-16.0) H 09/17/18 16:27 - ABG ABG results: ABG ABG pH 7.33 pH Units (7.32-7.45) 09/17/18 18:38 ABG pCO2 41 mmHg (35-45) 09/17/18 18:38 ABG pO2 60 mmHg (85-104) L 09/17/18 18:38 ABG O2 Saturation 89 % (95-98) L 09/17/18 18:38 PT/INR, D-dimer PT 12.3 Seconds (9.4-12.1) H 09/17/18 16:26 - Impressions Impressions Lumbar Spine X-Ray 09/17/18 15:41 IMPRESSION: No acute abnormalities identified within lumbar spine. Multilevel degenerative disc and facet disease, greatest L4-L5 and L5-S1. Calcification overlying the right renal shadow, raises the possibility of nephrolithiasis. D/ / Mika Mohr MD / Mika Mohr MD Interpreting Provider: Mika Mohr MD - Attending Attestation I have personally performed a face to face evaluation on this patient. I have reviewed and agree with the care plan. History and Exam by me shows: Pt seen. Pt with mutiple medical problems now with anemia. Denies blood in stool. o/E: Abd soft. A; Pt with anemia Rec: Enteroscopy/colon am. If negative khurram cap endoscopy
[2018-09-18] MEDS: Gabapentin 100 MG CAPSULE PO SCH ×2 (13:51→21:29)
[2018-09-18] MEDS: Vitamin B Complex/Vit C/Vit E 1 EACH TABLET PO SCH (13:52)
[2018-09-18] MEDS: *HR* OxyCODONE Immed Rel 5 MG TABLET PO PRN (13:53)
[2018-09-18] MEDS ORDERED: SODIUM CHLORIDE/NAHCO3/KCL/PEG 4,000 ML SOLN.RECON PO ONE (17:00)
[2018-09-18] MEDS: Aspirin Enteric Coated 81 MG Tablet PO SCH (17:20)
[2018-09-18] MEDS: traZODone 50 MG TABLET PO SCH (21:27)
[2018-09-18] MEDS ORDERED: Lisinopril 20 MG TABLET PO SCH (22:00)
[2018-09-19] MEDS: Ipratropium/Albuterol Neb 3 ML IH SCH ×7 (00:11→23:21)
[2018-09-19] MEDS: *HR* OxyCODONE Immed Rel 5 MG TABLET PO PRN (04:28)
[2018-09-19 04:38] LABS: Bilirubin,Urine Negative (Negative); Blood,Urine Large (Negative); Clarity,Urine Clear (Clear); Color,Urine Yellow (Yellow); Glucose,Urine (UA) 250 mg/dL (Normal); Ketones,Urine Negative (Negative); Leukocyte Esterase,Urine Negative (Negative); Nitrite,Urine Negative (Negative); PH,Urine 5.5 pH Units (5.0-8.0); Protein,Urine >=300 mg/dL (Neg-Trace); Specific Gravity,Urine 1.016 (1.010-1.025); Urobilinogen,Urine Normal (Normal)
[2018-09-19 04:41] LABS: Bacteria,Urine None Seen per hpf (None-Few); Hyaline Casts,Urine None Seen per lpf (None-Few); RBC,Urine 30-50 per hpf (0-3); Squamous Epithelial Cell,Urine Moderate per lpf (None-Few); WBC,Urine 0-3 per hpf (0-3)
[2018-09-19 04:45] LABS: Sodium, Urine 46.7 mEq/L
[2018-09-19 05:11] LABS: Hematocrit 28.9 % (37.5-50.1); Hemoglobin 9.3 g/dL (12.9-16.9); Mean Corpuscular HGB Conc 32.2 g/dL (31.6-35.5); Mean Corpuscular Hemoglobin 28.6 pg (28.0-33.3); Mean Corpuscular Volume 88.9 fL (83.0-100.0); Mean Platelet Volume 8.8 fL (9.4-12.4); Platelet Count 326 K/mcL (140-400); Red Blood Count 3.25 M/mcL (4.19-5.50); Red Cell Distribution Width 13.6 % (11.5-14.5)
[2018-09-19 05:28] LABS: Calcium 8.6 mg/dL (8.6-10.3); Potassium 5.3 mEq/L (3.5-5.1)
[2018-09-19] MEDS: Insulin LISPRO 300 UNITS/3 ML VIAL SQ SCH ×4 (09:07→21:23)
[2018-09-19] MEDS: Insulin DETEMIR 100 UNIT/ML X5UNITS SQ SCH ×2 (09:07→21:50)
[2018-09-19] MEDS: MethylPREDNISolone 40 MG/ML VIAL IVP SCH ×2 (09:08→21:23)
[2018-09-19] MEDS: Furosemide 40 MG/4 ML VIAL IVP SCH ×2 (09:08→18:20)
[2018-09-19] MEDS: Piperacillin/Tazobactam 3.375 GM in 0.9 % Sodium Chloride Mini Bag 100 ML IVPB SCH (09:08)
[2018-09-19] MEDS: amLODIPine 5 MG TABLET PO SCH (09:09)
[2018-09-19] MEDS: Gabapentin 100 MG CAPSULE PO SCH ×3 (09:09→21:18)
[2018-09-19] MEDS: Fenofibrate 54 MG TABLET PO SCH (09:10)
[2018-09-19] MEDS: Magnesium Oxide 400 MG TABLET PO SCH ×2 (09:10→21:18)
[2018-09-19] MEDS: Vitamin B Complex/Vit C/Vit E 1 EACH TABLET PO SCH (09:10)
--- NOTE | 2018-09-19 09:17 | Nephrology Progress Note ---
Addendum entered and electronically signed by Carlyle Purdy DO 09/19/18 18:53: I examined this patient and my medical decision-making was reviewed with the Resident Physician. I agree with the documented findings, disposition and treatment plan as described except to the extent set forth below. 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 Recommend following a renal protective/conservative strategy as described below. Will continue to follow wit h you. Original Note: Date of Encounter: 09/19/18 Time of Encounter: 09:15 - Assessment and Plan (1) Acute kidney injury superimposed on chronic kidney disease Current Visit: Yes Status: Acute - Unknown etiology at this time, possibly prerenal with CHF exacerbation - Patient has a known history of CKD stage III - Per chart review, patients baseline creatinine appears to be between 2 and 2.5 - Serum creatinine on arrival was 2.65, has subsequently decreased to 2.33 - Patient is currently receiving 40 mg Lasix IV twice a day for CHF exacerbation - Retroperitoneal U/S demonstrated the following: Small amount of perinephric fluid anterior and inferior to each kidney - Urinalysis: Protein greater than 300, 5-15 red blood cells, 3-5 white blood cells - Vancomycin discontinued; currently on Zosyn Plan: - Patient's creatinine appears to be improving and is approaching baseline - Continue diuresis as necessary - Pharmacy to dose vancomycin; de-escalate antibiotics if possible - Strict Is and Os, daily weights - Renally dose medications and avoid nephrotoxins when possible (2) Hyperkalemia Current Visit: Yes Status: Resolved - On arrival, patient was found to have an elevated potassium at 6.1 - Kayexalate was administered in the emergency department - Patient was also given calcium gluconate, IV insulin 6 units - Repeat a.m. labs and continue to monitor (3) Acute on chronic anemia Current Visit: Yes Status: Acute - Per chart review, patient is chronically anemic, with a baseline hemoglobin between 8 and 9 - Patient presented with a low hemoglobin of 7.7 - Status post 1 unit packed red blood cells in the emergency department - CBC has been ordered every 8 hours - FOBT ordered and Protonix IV has been started - GI consult that (4) Acute on chronic diastolic heart failure Current Visit: Yes Status: Acute - Patient has a known history of HFpEF - Presented with increased O2 demand, PND, lower extremity swelling - TTE 08/24: LVEF 60-65%, moderate concentric LVH, mild pulmonary HTN - Chest x-ray: Pulmonary edema - BNP: 149 Plan: - Continue Lasix 40 mg IV twice a day - Fluid restriction, daily weights - Supplemental O2 as needed; maintain SPO2 greater than 92% (5) Hospital-acquired pneumonia Current Visit: Yes Status: Acute - Presented with increased sputum production and cough - Patient was started on vancomycin and Zosyn - Load cultures were drawn 2 and are currently pending - Urine antigens for strep and legionella were negative - Respiratory infection panel was negative - Management per primary team (6) COPD exacerbation Current Visit: Yes Status: Acute - Known history of COPD - Continue home inhalers, DuoNeb every 4 hours - Solu-Medrol 40 mg IV every 8 - Supplemental O2 as needed - Management Per primary team Subjective Interval history: Patient was seen and examined at bedside; he states that he feels much better today. He reports that his back pain from yesterday has improved. He currently denies having any cough or shortness of breath. Denies fevers, chills, or, vomiting, or abdominal pain. He has no complaints at this time. Objective - Vital Signs Vital signs: Vital Signs Temp Pulse Resp BP Pulse Ox 09/19/18 07:42 18 97 09/19/18 07:02 97.4 F L 63 24 179/76 97 09/19/18 04:55 97.6 F 78 17 170/65 94 09/19/18 00:11 22 99 09/18/18 23:53 97.7 F 70 18 170/73 97 09/18/18 20:33 18 96 09/18/18 19:30 97.5 F L 81 16 173/75 97 09/18/18 16:03 18 97 09/18/18 15:34 70 14 184/75 09/18/18 11:31 18 95 Intake and Output 09/18/18 09/19/18 09/19/18 23:59 07:59 15:59 Intake Total 600 / 600 600 / 600 Output Total 2100 / 2100 350 / 350 Balance -1500 / -1500 250 / 250 Intake: IV Fluids 100 / 100 Zosyn 3.375 GM In 0.9 % Sodium 100 / 100 Chloride (Mini-Bag +) 100 ML @ 25 mls/hr IVPB Q8HR [facility] Rx#: [id number] Oral 500 / 500 600 / 600 Output: Urine 350 / 350 Catheter 2100 / 2100 Other: Stool Size Small Stool Consistency liquid formed Stool Color Brown # Bowel Movements 1 Weight 116.2 kg Blood Glucose* 385 310 - General Appearance Exam: General: No acute distress Head: atraumatic, normocephalic Eye: PERRL, EOMI, conjuntiva pink, sclera anicteric Neck: Supple, trachea midline; No lymphadenopathy Respiratory: Diminished breath sounds, shortened inspiratory phase Cardiovascular: RRR, +S1, +S2; no murmurs, rubs, gallops Abdomen: Distended, non-tender Extremities: +1 pitting edema in b/l LEs Neurological: No focal deficits noted Psychiatric: Normal affect, normal mood Skin: Dry, intact - Lab 09/19/18 04:50 09/19/18 04:50 Most recent lab results ABG pH 7.33 pH Units (7.32-7.45) 09/17/18 18:38 ABG pCO2 41 mmHg (35-45) 09/17/18 18:38 ABG pO2 60 mmHg (85-104) L 09/17/18 18:38 ABG HCO3 22 mEq/L (21-27) 09/17/18 18:38 ABG O2 Saturation 89 % (95-98) L 09/17/18 18:38 Calcium 8.6 mg/dL (8.6-10.3) 09/19/18 04:50 Phosphorus 5.1 mg/dL (2.7-4.5) H 09/18/18 06:10 Magnesium 2.2 mg/dL (1.6-2.6) 09/18/18 06:10 Urine Creatinine 82 mg/dL 09/19/18 04:15 Urine Sodium 46.7 mEq/L 09/19/18 04:15 Consult Discharge Plan - Plan Referrals: Mark Coe MD [Primary Care Provider] -
[2018-09-19] MEDS: Lactobacillus 1 EACH CAP.SPRINK PO SCH ×2 (09:20→21:18)
[2018-09-19] MEDS: Aspirin Enteric Coated 81 MG Tablet PO SCH (09:20)
[2018-09-19] MEDS: Nicotine 21 MG PATCH.TD24 TD SCH (09:20)
--- NOTE | 2018-09-19 10:37 | Event Note ---
Date of Encounter: 09/19/18 Time of Encounter: 10:00 Patient is refusing push enteroscopy and colonoscopy this morning.he states he is still having formed stools, because he was not given the prep until 11:00 last night. He was advised that he can finish the prep today and Dr. Christy, will perform push enteroscopy and colonoscopy tomorrow. Risk and benefits explained patient is in agreement.
[2018-09-19] MEDS ORDERED: levoFLOXacin 750 MG TABLET PO SCH (12:00)
[2018-09-19] MEDS: levETIRAcetam 250 MG TABLET PO SCH (14:48)
--- NOTE | 2018-09-19 16:04 | Internal Med Progress Note ---
Hospitalist Progress Note - Encounter Date of Encounter: 09/19/18 Time of Encounter: 16:17 - Subjective Interval History: Patient was seen and examined at bedside. his respiratory status has improved. denies melena, hematochezia, N/v/D - Exam Vitals: Temp Pulse Resp BP Pulse Ox 97.4 F L 61 24 181/79 97 09/19/18 11:18 18 11:18 09/19/18 11:18 09/19/18 11:18 09/19/18 11:18 Exam: General: Patient is alert, oriented, in moderate distress distress, obese, speaks in 5 word sentences Head: atraumatic, normocephalic, Eye: normal appearance, PERRL, no scleral icterus, no conjunctival injection ENT: mucous membranes moist, normal external ear exam Neck: normal inspection, trachea midline, full ROM, no carotid bruits, JVD Chest: normal inspection, symmetric chest rise Respiratory: Tachypneic, course crackles in the anterior and posterior lung acharya, diffuse wheezing in the anterior and posterior chest .- improved Cardiovascular:distant heart sounds secondary to body habitus Regular rate and rhythm. s1 and s2 No clicks, rubs, gallops, or murmors. Abdomen: Bowel sounds present normoactive x-4 quadrants. Abdomen is soft, nondistended. no Epigastric tenderness. No guarding or rebound. No organomegaly noted, obese, no CVA tenderness musculoskeletal: Spontaneously moving all extremities. +2 pitting edema, no calf tenderness Skin: warm, dry, intact. Right lower extremity is wrapped with clean dressing Neuro: Alert and oriented x4. Sensation light touch intact. No focal deficit Psych: Patient's affect is normal - Assessment and Plan (1) Acute on chronic diastolic heart failure Current Visit: Yes Status: Acute Assessment and Plan: Chest x-ray with pulmonary edema o admission-m repeated on 09/19 with improvement Was started on Lasix 40 mg IV twice a day, will transition to oral lasix in AM BNP mildly elevated 149 Strict intake and output Daily weights Fluid restriction <1L restarted coreg tolerating ASA TTE 08/2018- LVEF 60-65%. Moderate concentric left ventricular hypertrophy. Moderate left ventricular diastolic dysfunction. Normal right ventricular structure and function. No evidence of PFO with agitated saline contrast. Trace tricuspid regurgitation. Mild pulmonary hypertension. (2) Hospital-acquired pneumonia Current Visit: Yes Status: Acute Assessment and Plan: IV zosyn changed to Levaquin to complete the course Blood cultures- NGTD Urine antigens- negative azithromycin was discontinued MRSA nasal swab- negative - vancomycin discontinued. Respiratory viral panel- negative Influenza negative proCalcitonin - pending Lactic acid negative sputum cx - contaminated- will resend (3) Acute exacerbation of chronic obstructive pulmonary disease (COPD) Current Visit: Yes Status: Acute Assessment and Plan: Patient with diffuse wheezing on anterior chest- improved on Abx as above Solu-Medrol 125 mg was given in the ED will continue with 40 every 12hrs Low threshold for intubation Duo nebs every 4 hours Continue home inhalers Keep sats around 90% (4) Acute respiratory failure Current Visit: Yes Status: Acute Assessment and Plan: secondary to above management as per above (5) Acute on chronic anemia Current Visit: Yes Status: Acute Assessment and Plan: Acute on chronic anemia secondary to unknown etiology hemoglobin was 11.6 on 09/04 hours trended down to 7.7 on 09/17 s/p 1 prbc with improvement of H/H We will follow CBC every 8 hours- next one at 11 PM Iron panel anemia of chronic disease- continue oral iron B12 WNL , folic acid WNL Protonix IV- will transition him to po FOBT- negative for endoscopy on 09/20 Transfuse as needed and keep H&H above 8 as he has cardiac history Avoid antiplatelets, anticoagulations, NSAIDs will advance diet to diabetic (6) Acute kidney injury superimposed on chronic kidney disease Current Visit: Yes Status: Acute Assessment and Plan: Most likely prerenal and possible ATN secondary to acute CHF exacerbation- renal functions are improving Has history 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 Multilevel degenerative disc and facet disease, greatest L4-L5 and L5-S1. Calcification overlying the right renal shadow, raises the possibility of nephrolithiasis. (9) Dyslipidemia Current Visit: No Status: Chronic Assessment and Plan: improved continue home medications (10) Obesity (BMI 30.0-34.9) Current Visit: No Status: Chronic Assessment and Plan: counseled (11) Tobacco abuse Current Visit: No Status: Chronic Assessment and Plan: Nicotine patch Was counseled extensively on smoking cessation (12) DVT prophylaxis Current Visit: Yes Status: Acute Assessment and Plan: SCDs for now as he is found to be anemic- if H/H stable will consider starting heparin SC - Time Spent with Patient Total time spent is greater than 50% in coordination of care (as documented) at patient's floor/unit and/or counseling patient: Internal Medicine: Result - Labs CBC & Chem 7: 09/19/18 04:50 09/19/18 04:50 Labs: Short CBC 09/19/18 Range/Units 04:50 WBC 7.8 (4.3-11.1) K/mcL Hgb 9.3 L (12.9-16.9) g/dL Hct 28.9 L (37.5-50.1) % Plt Count 326 (140-400) K/mcL BMP 09/19/18 04:50 Sodium 141 Potassium 5.3 H Chloride 108 H Carbon Dioxide 23 BUN 66 H Creatinine 2.33 H Glucose 280 H Calcium 8.6 Urine 09/19/18 Range/Units 04:15 Urine Color Yellow (Yellow) Urine Clarity Clear (Clear) Urine pH 5.5 (5.0-8.0) pH Units Ur Specific [place] 1.016 (1.010-1.025) Urine Protein >=300 H (Neg-Trace) mg/dL Urine Glucose (UA) 250 H (Normal) mg/dL - ABG Interpretation ABG results: ABG ABG pH 7.33 pH Units (7.32-7.45) 09/17/18 18:38 ABG pCO2 41 mmHg (35-45) 09/17/18 18:38 ABG pO2 60 mmHg (85-104) L 09/17/18 18:38 ABG O2 Saturation 89 % (95-98) L 09/17/18 18:38 PT/INR, D-dimer PT 12.3 Seconds (9.4-12.1) H 09/17/18 16:26 - Impressions Impressions Chest X-Ray 09/19/18 11:38 IMPRESSION: 1. Improved pulmonary edema with persistent low lung volumes. D/ / Kush Esteban MD / Kush Esteban MD Interpreting Provider: Kush Esteban MD Consult Discharge Plan - Plan Referrals: Mark Coe MD [Primary Care Provider] - (4) Acute respiratory failure Qualifiers: Respiratory failure complication: hypoxia Qualified Code(s): J96.01 - Acute respiratory failure with hypoxia (8) Back pain Qualifiers: Back pain location: low back pain Chronicity: chronic Back pain laterality: bilateral Sciatica presence: without sciatica Qualified Code(s): M54.5 - Low back pain; G89.29 - Other chronic pain
[2018-09-19] MEDS ORDERED: SODIUM CHLORIDE/NAHCO3/KCL/PEG 4,000 ML SOLN.RECON PO ONE (17:00)
--- NOTE | 2018-09-19 17:05 | Podiatry Consult Note ---
Date of Encounter: 09/19/18 Time of Encounter: 17:02 Assessment and Plan (1) Toe ulcer due to DM Current visit: No Status: Acute Assessment: Eschar noted to distal aspect of right hallux, right 2nd digit, and lateral right fourth digit Purulent drainage noted to right hallux and right digit #2. Foul odor noted from right hallux. No erythema or edema noted. Non-palpable pulses WBC 7.8 HGB A1C 10.4 Plan: Debrided right hallux and right 2nd digit with #15 blade scalpel with purulent drainage noted. Debrided right 4th digit with #15 blade scalpel with minimal serosanginous drainage noted. Cultures obtained ESR, CRP ordered. ABIs ordered. Foot xray ordered. Recommend tight glycemic control to promote wound healing. Qualifiers: Diabetes mellitus type: type 2 Laterality: right Non-pressure ulcer stage: with fat layer exposed Qualified Code(s): E11.621 - Type 2 diabetes mellitus with foot ulcer; L97.512 - Non-pressure chronic ulcer of other part of right foot with fat layer exposed (2) Diabetes mellitus Current visit: Yes Status: Acute Assessment: HGB A1C 10.4 Plan: Recommend tight glycemic control to promote wound healing. 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 Regalado is a 63 year old male who presented to the ER on 09/17 with complaints of cough and shortness of breath. Patient arrived from [place]. PMH of HTN, Hep C d/t IV drug abuse- has not used since the 70s, IDDM, RLS, neuropathy, Depression, Chronic back and leg pain, Bilateral foot digit amputation. Patient is a current 1ppd smoker. Denies alcohol or illicit drug use. Patient is known to podiatry clinic, follows with Dr. Pace in the wound care center. Last visit was July 2018. Patient reports he has been unable to get an appointment with the wound care center and has not been since July. Again Mr. Regalado is a 63 year old male, who is being referred to podiatry for diabetic ulcers of right foot. Patient reports 3 weeks ago noticing a hole in his right great toe. States that he attempted to soak feet and then began noticing more wounds to all digits on right foot. States he was unable to get in with wound care center. Reports he has no feeling to either feet and is unsure what caused wounds. Denies any chest pain, shortness of breath, or calf pain. Denies any fevers, chills, nausea, vomiting, or diarrhea. Past Med Surg Social Fam HX - Past Medical History Medical history: arthritis, COPD, dementia, diabetes, GERD, hepatitis, hyperlipidemia, hypertension, myocardial infarction, osteoporosis, renal disease, syncope Additional medical history: CHRONIC KIDNEY DISEASE, SMOKER, HEPATITIS, SYNCOPE, OSTEOPOROSIS Psychiatric history: anxiety, depression, panic disorder - Past Surgical History Surgical History: cataract, LE stent(s), orthopedic, other Additional surgical history: CATARACT, LLE FRACTURE, LLE STENT, HERNIA REPAIR - Social History Smoking Status: Current every day smoker Smokeless Tobacco Status: No Alcohol use: none Drug use: none - Family History Mother Family Member Ethnicity: Non- Living Status: Hx Family Cardiac Disorders: Yes Hx Family Respiratory Disorders: Yes Hx Family Cancer: Yes Hx Family GI Disorders: No Hx Family Endocrine Disorder: Yes Hx Family Neuromuscular Disorders: No Hx Family Neurologic Disorders: Yes Hx Family HEENT Disorders: No Hx Family Autoimmune Disorders: No Father Living Status: Medications and Allergies Albuterol Sulfate [Ventolin Hfa] 2 puff IH Q6H PRN 08/20/18 [History] Atorvastatin [Lipitor] 40 mg PO HS 08/20/18 [History] Carvedilol [Coreg] 25 mg PO BID 08/20/18 [History] Cholecalciferol (Vitamin D3) [Vitamin D3] 50,000 unit PO MÁRQUEZ 08/20/18 [History] Citalopram [CeleXA] 20 mg PO DAILY 08/20/18 [History] Ferrous Sulfate 325 mg PO BID 08/20/18 [History] Fluticasone Propionate [Flovent Diskus] 1 puff IH BID 08/20/18 [History] Gabapentin [Neurontin] 200 mg PO TID 08/20/18 [History] Insulin LISPRO [HumaLOG] 0 - 12 units SQ QID PRN 08/20/18 [History] Lactobacillus [Culturelle] 1 cap PO BID 08/20/18 [History] LevETIRAcetam [Keppra] 750 mg PO Q12H 08/20/18 [History] Magnesium Oxide [Magnesium] 400 mg PO BID 08/20/18 [History] Metformin HCl 500 mg PO BID 08/20/18 [History] Polyethylene Glycol 3350 [MiraLAX] 17 gm PO HS 08/20/18 [History] Pramipexole Di-HCl [Pramipexole Dihydrochloride] 0.125 mg PO HS 08/20/18 [History] Sennosides/Docusate Sodium [Senna-Docusate Sodium Tablet] 1 tab PO HS PRN 08/20/18 [History] Tiotropium [Spiriva] 2 puff IH DAILY 08/20/18 [History] Trazodone HCl 50 mg PO HS 08/20/18 [History] Vitamin B Complex [B Complex] 1 tab PO DAILY 08/20/18 [History] amLODIPine [Norvasc] 5 mg PO DAILY 08/20/18 [History] Albuterol Neb [Proventil Neb] 2.5 mg IH QID 09/18/18 [History] Amoxicillin/Clavulanate [Augmentin] 1 tab PO BID 09/18/18 [History] Aspirin Enteric Coated [Aspirin EC] 81 mg PO DAILY 09/18/18 [History] Docusate Sodium [Doc-Q-Lace] 100 mg PO HS PRN 09/18/18 [History] Enalapril Maleate [Vasotec] 10 mg PO HS 09/18/18 [History] Furosemide [Lasix] 80 mg PO DAILY 09/18/18 [History] Guaifenesin [Mucinex] 600 mg PO Q12H 09/18/18 [History] Insulin Glargine [Lantus] 60 unit SQ BID 09/18/18 [History] Insulin LISPRO [HumaLOG] 6 units SQ TID 09/18/18 [History] Omeprazole Magnesium [Prilosec Otc] 20 mg PO DAILY 09/18/18 [History] Allergy/AdvReac Type Severity Reaction Status Date / Time acetaminophen Allergy Hives Verified 09/19/17 12:11 [From Darvocet-N] ibuprofen Allergy Hives Verified 09/19/17 12:11 propoxyphene Allergy Hives Verified 09/19/17 12:11 [From Darvocet-N] tramadol [From Ultram] Allergy Hives Verified 09/19/17 12:11 All Systems Reviewed: The remainder of the systems were reviewed and are negative - Constitutional Constitutional: no fever(s) - Cardiovascular Cardiovascular: other (pedal ulcers), no chest pain, no dyspnea - Respiratory Respiratory: cough, no dyspnea - Musculoskeletal Musculoskeletal: numbness Physical Exam - Constitutional Vitals: Temp Pulse Resp BP Pulse Ox 97.4 F L 61 24 181/79 97 09/19/18 11:18 09/19/18 11:18 09/19/18 11:18 09/19/18 11:18 09/19/18 11:18 Exam: Constitiutional: Alert and oriented x 3. Vascular: Non palpable pulses, DP/PT, CFT <3 seconds, amputated 3rd and 5th digit, no calf pain with squeeze Neurologic: No sensation to touch, normal plantar response, Dermatologic: Eschar noted to distal aspect of right hallux, right 2nd digit, and lateral right fourth digit Musculoskeletal: 4/5 muscle strength and normal tone RLE Results - Labs Result Diagrams: 09/19/18 04:50 09/19/18 04:50 Labs: Abnormal lab results RBC 3.25 M/mcL (4.19-5.50) L 09/19/18 04:50 Hgb 9.3 g/dL (12.9-16.9) L 09/19/18 04:50 Hct 28.9 % (37.5-50.1) L 09/19/18 04:50 MPV 8.8 fL (9.4-12.4) L 09/19/18 04:50 Lymphocytes # 0.5 K/mcL (0.6-4.6) L 09/18/18 06:10 Nucleated RBCs/100 WBC 0.3 /100 WBC (0) H 09/18/18 06:10 PT 12.3 Seconds (9.4-12.1) H 09/17/18 16:26 ABG pO2 60 mmHg (85-104) L 09/17/18 18:38 ABG O2 Saturation 89 % (95-98) L 09/17/18 18:38 ABG Base Excess -4 mEq/L (-2 to 3) L 09/17/18 18:38 Potassium 5.3 mEq/L (3.5-5.1) H 09/19/18 04:50 Chloride 108 mEq/L (98-107) H 09/19/18 04:50 BUN 66 mg/dL (8-23) H 09/19/18 04:50 Creatinine 2.33 mg/dL (0.70-1.30) H 09/19/18 04:50 Est GFR ( Amer) 34 (> 60) L 09/19/18 04:50 Est GFR (Non-Af Amer) 28 (> 60) L 09/19/18 04:50 BUN/Creatinine Ratio 28 (6-26) H 09/19/18 04:50 Glucose 280 mg/dL (70-105) H 09/19/18 04:50 POC Glucose 444 mg/dL (70-99) H* 09/18/18 15:44 Hemoglobin A1c 10.4 % (-5.6) H 09/18/18 06:10 Calculated Osmolality 321 (280-300) H 09/19/18 04:50 Phosphorus 5.1 mg/dL (2.7-4.5) H 09/18/18 06:10 Iron 16 mcg/dL (65-175) L 09/17/18 16:26 % Saturation 5 % (20-55) L 09/17/18 16:26 AST 12 Units/L (13-39) L 09/17/18 10:30 B-Natriuretic Peptide 149 pg/mL (Less than 100) H 09/17/18 10:30 Serum Total Protein 6.0 g/dL (6.4-8.9) L 09/17/18 10:30 Albumin 3.0 g/dL (3.5-5.7) L 09/17/18 10:30 Albumin/Globulin Ratio 1.0 (1.1-2.2) L 09/17/18 10:30 Triglycerides 207 mg/dL (< 150) H 09/18/18 06:10 LDL Cholesterol, Calc 102 mg/dL (0-99) H 09/18/18 06:10 VLDL Cholesterol, Calc 41 mg/dL (< 31) H 09/18/18 06:10 HDL Cholesterol 23 mg/dL (40-59) L 09/18/18 06:10 Cholesterol/HDL Ratio 7.2 (0-4.9) H 09/18/18 06:10 Folate > 22.3 ng/mL (3.0-16.0) H 09/17/18 16:27 Urine Protein >=300 mg/dL (Neg-Trace) H 09/19/18 04:15 Urine Glucose (UA) 250 mg/dL (Normal) H 09/19/18 04:15 Urine Blood Large (Negative) H 09/19/18 04:15 Urine Microscopic RBC 30-50 per hpf (0-3) H 09/19/18 04:15 Ur Squamous Epith Cells Moderate per lpf (None-Few) H 09/19/18 04:15 H & H 09/19/18 Range/Units 04:50 Hgb 9.3 L (12.9-16.9) g/dL Hct 28.9 L (37.5-50.1) % All other labs normal. Consult Discharge Plan - Plan Referrals: Mark Ceo MD [Primary Care Provider] -
[2018-09-19] MEDS: traZODone 50 MG TABLET PO SCH (21:18)
[2018-09-20] MEDS: Piperacillin/Tazobactam 3.375 GM in 0.9 % Sodium Chloride Mini Bag 100 ML IVPB SCH ×4 (01:23→23:25)
--- NOTE | 2018-09-20 03:44 | Event Note ---
Date of Encounter: 09/20/18 Time of Encounter: 02:48 Notified by nurse of patient complaining of continued abdominal pain now up into his chest. EKG obtained shows sinus bradycardia. Vitals stable. Went to bedside and nurse informed patient is now reporting no pain. Informed nurse to continue to monitor closely and notify of any changes.
[2018-09-20] MEDS: Ipratropium/Albuterol Neb 3 ML IH SCH ×5 (04:02→20:15)
[2018-09-20 04:23] LABS: Hematocrit 29.4 % (37.5-50.1); Hemoglobin 9.5 g/dL (12.9-16.9); Mean Corpuscular HGB Conc 32.3 g/dL (31.6-35.5); Mean Corpuscular Hemoglobin 28.9 pg (28.0-33.3); Mean Corpuscular Volume 89.4 fL (83.0-100.0); Mean Platelet Volume 9.1 fL (9.4-12.4); Platelet Count 300 K/mcL (140-400); Red Blood Count 3.29 M/mcL (4.19-5.50); Red Cell Distribution Width 13.6 % (11.5-14.5)
[2018-09-20 04:41] LABS: Calcium 8.6 mg/dL (8.6-10.3); Potassium 4.6 mEq/L (3.5-5.1)
[2018-09-20] MEDS: levETIRAcetam 250 MG TABLET PO SCH ×2 (05:30→15:40)
[2018-09-20] MEDS: MethylPREDNISolone 40 MG/ML VIAL IVP SCH (05:38)
[2018-09-20] MEDS ORDERED: Propofol 500 MG/50 ML INFUS..BTL ONE (07:01)
[2018-09-20] MEDS ORDERED: *HR* Atropine Sulfate 8 MG/20 ML VIAL IVP ONE (07:13)
[2018-09-20] MEDS ORDERED: Lidocaine -MPF 2% 2 ML VIAL ONE (07:13)
[2018-09-20] MEDS ORDERED: Ondansetron 4 MG/2 ML VIAL ONE (07:13)
[2018-09-20] MEDS: Insulin LISPRO 300 UNITS/3 ML VIAL SQ SCH ×4 (07:53→22:55)
--- NOTE | 2018-09-20 07:56 | Anesthesia Evaluation PreOp ---
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 History: Seizures (well controlled on meds) Other Medical History: Hepatic (Hep C), Diabetes Type II (uses insulin), GERD, Other (BMI 35) Anesthesia History: No Prior Anesthetic Complications Alcohol Use: none Drug use: none Medications and Allergies Albuterol Sulfate [Ventolin Hfa] 2 puff IH Q6H PRN 08/20/18 [History] Atorvastatin [Lipitor] 40 mg PO HS 08/20/18 [History] Carvedilol [Coreg] 25 mg PO BID 08/20/18 [History] Cholecalciferol (Vitamin D3) [Vitamin D3] 50,000 unit PO MÁRQUEZ 08/20/18 [History] Citalopram [CeleXA] 20 mg PO DAILY 08/20/18 [History] Ferrous Sulfate 325 mg PO BID 08/20/18 [History] Fluticasone Propionate [Flovent Diskus] 1 puff IH BID 08/20/18 [History] Gabapentin [Neurontin] 200 mg PO TID 08/20/18 [History] Insulin LISPRO [HumaLOG] 0 - 12 units SQ QID PRN 08/20/18 [History] Lactobacillus [Culturelle] 1 cap PO BID 08/20/18 [History] LevETIRAcetam [Keppra] 750 mg PO Q12H 08/20/18 [History] Magnesium Oxide [Magnesium] 400 mg PO BID 08/20/18 [History] Metformin HCl 500 mg PO BID 08/20/18 [History] Polyethylene Glycol 3350 [MiraLAX] 17 gm PO HS 08/20/18 [History] Pramipexole Di-HCl [Pramipexole Dihydrochloride] 0.125 mg PO HS 08/20/18 [History] Sennosides/Docusate Sodium [Senna-Docusate Sodium Tablet] 1 tab PO HS PRN 08/20/18 [History] Tiotropium [Spiriva] 2 puff IH DAILY 08/20/18 [History] Trazodone HCl 50 mg PO HS 08/20/18 [History] Vitamin B Complex [B Complex] 1 tab PO DAILY 08/20/18 [History] amLODIPine [Norvasc] 5 mg PO DAILY 08/20/18 [History] Albuterol Neb [Proventil Neb] 2.5 mg IH QID 09/18/18 [History] Amoxicillin/Clavulanate [Augmentin] 1 tab PO BID 09/18/18 [History] Aspirin Enteric Coated [Aspirin EC] 81 mg PO DAILY 09/18/18 [History] Docusate Sodium [Doc-Q-Lace] 100 mg PO HS PRN 09/18/18 [History] Enalapril Maleate [Vasotec] 10 mg PO HS 09/18/18 [History] Furosemide [Lasix] 80 mg PO DAILY 09/18/18 [History] Guaifenesin [Mucinex] 600 mg PO Q12H 09/18/18 [History] Insulin Glargine [Lantus] 60 unit SQ BID 09/18/18 [History] Insulin LISPRO [HumaLOG] 6 units SQ TID 09/18/18 [History] Omeprazole Magnesium [Prilosec Otc] 20 mg PO DAILY 09/18/18 [History] Allergy/AdvReac Type Severity Reaction Status Date / Time acetaminophen Allergy Hives Verified 09/19/17 12:11 [From Darvocet-N] ibuprofen Allergy Hives Verified 09/19/17 12:11 propoxyphene Allergy Hives Verified 09/19/17 12:11 [From Darvocet-N] tramadol [From Ultram] Allergy Hives Verified 09/19/17 12:11 - Meds/Allergy Pre-op Review Medications Reviewed: Yes Allergies Reviewed: Yes Beta Blockers on Current Med List: Yes (coreg) If Beta Blockers taken, Date/Time (Last Dose taken): 09-19-18 coreg 18:19 Anesthesia Results - Labs 09/20/18 03:33 09/20/18 03:33 - Imaging EKG: report reviewed, image reviewed (Sinus rhythm Low voltage, extremity leads) Anesthesia Exam Last Vital Signs Temp 97.9 F 09/20/18 07:17 Pulse 55 09/20/18 07:17 Resp 20 09/20/18 07:17 BP 161/65 09/20/18 07:17 Pulse Ox 95 09/20/18 07:17 Weight: 116 kg NPO (# of Hours): > 8 hrs - HEENT Pupil (Motor): Pupils equal, EOMI Mallampati: IV Teeth: Edentulous Oral Opening: Greater than 3 - PHARMACY INFORMATICS MANAGER LOC: Oriented - Cardiac Rhythm: Regular Murmur: None - Pulmonary Breath Sounds: bilateral Clear (wheezing) Anesthesia Assess/Plan ASA Score: 4 Level of consciousness: Cooperative Anesthetic Plan: MAC Monitoring Plan: Standard Monitors Recovery Plan: PACU
--- NOTE | 2018-09-20 08:36 | Event Note ---
Date of Encounter: 09/20/18 Time of Encounter: 08:35 - Nephrology Event Note Nephrology Chart Review/Update The pt's SCr has nicely improved while undergoing diuresis. I will sign-off at this time, but please feel free to call or re-consult if his renal function worsens or for any questions. I would recommend he follow up with Nephrology in about 3-4 weeks with a BMP in about 1 week after discharge. Thank you for having consulted the [facility].
[2018-09-20] MEDS: Gabapentin 100 MG CAPSULE PO SCH ×3 (09:25→20:17)
[2018-09-20] MEDS: Fenofibrate 54 MG TABLET PO SCH (09:25)
[2018-09-20] MEDS: Aspirin Enteric Coated 81 MG Tablet PO SCH (09:25)
[2018-09-20] MEDS: Furosemide 40 MG TABLET PO SCH ×2 (09:26→15:40)
[2018-09-20] MEDS: Nicotine 21 MG PATCH.TD24 TD SCH (09:26)
[2018-09-20] MEDS: Vitamin B Complex/Vit C/Vit E 1 EACH TABLET PO SCH (09:26)
[2018-09-20] MEDS: Lactobacillus 1 EACH CAP.SPRINK PO SCH ×2 (09:26→20:17)
[2018-09-20] MEDS: Magnesium Oxide 400 MG TABLET PO SCH ×2 (09:26→20:27)
[2018-09-20] MEDS: amLODIPine 5 MG TABLET PO SCH (09:26)
[2018-09-20] MEDS: Insulin DETEMIR 100 UNIT/ML X5UNITS SQ SCH ×2 (09:38→22:53)
--- NOTE | 2018-09-20 09:51 | Anesthesia Evaluation Post Op ---
Date of Encounter: 09/20/18 Time of Encounter: 09:00 - Vital Signs Vital Signs: See anesthesia record - Lungs Lungs: Clear Ascult./Percussion - Airway Airway: Non-obstructed - Cardiovascular Regular Rate - Mental Status Mental Status: Alert & Oriented, Answers Appropriately - Pain Pain Scale: 1 - Nausea Vomiting Nausea Vomiting: Not Present - Hydration Hydration: NPO - Discharge PostOp Status: Transfer Patient to floor
--- NOTE | 2018-09-20 14:59 | Internal Med Progress Note ---
Hospitalist Progress Note - Encounter Date of Encounter: 09/20/18 Time of Encounter: 08:00 - Subjective Interval History: Patient was seen and examined at bedside. his respiratory status has improved. denies melena, hematochezia, N/v/D - Exam Vitals: Temp Pulse Resp BP Pulse Ox 97.6 F 56 16 205/88 92 09/20/18 11:10 09/20/18 11:10 09/20/18 11:28 09/20/18 11:10 09/20/18 11:28 Exam: General: Patient is alert, oriented, in moderate distress distress, obese, speaks in full sentences Head: atraumatic, normocephalic, Eye: normal appearance, PERRL, no scleral icterus, no conjunctival injection ENT: mucous membranes moist, normal external ear exam Neck: normal inspection, trachea midline, full ROM, no carotid bruits, JVD Chest: normal inspection, symmetric chest rise Respiratory: respiratory rate WNL, crackles - improved in the posterior lung acharya, no wheezing in navid Anterior chest Cardiovascular:distant heart sounds secondary to body habitus Regular rate and rhythm. s1 and s2 No clicks, rubs, gallops, or murmors. Abdomen: Bowel sounds present normoactive x-4 quadrants. Abdomen is soft, nondistended. no Epigastric tenderness. No guarding or rebound. No organomegaly noted, obese, no CVA tenderness musculoskeletal: Spontaneously moving all extremities. +2 pitting edema, no calf tenderness Skin: warm, dry, intact. Right lower extremity is wrapped with clean dressing- no signs of bleeding Neuro: Alert and oriented x4. Sensation light touch intact. No focal deficit Psych: Patient's affect is normal - Assessment and Plan (1) Acute on chronic diastolic heart failure Current Visit: Yes Status: Acute Assessment and Plan: Chest x-ray with pulmonary edema o admission-m repeated on 09/19 with improvement on Lasix 40 mg by mouth twice a day BNP mildly elevated 149 Strict intake and output Daily weights Fluid restriction <1L restarted coreg tolerating ASA TTE 08/2018- LVEF 60-65%. Moderate concentric left ventricular hypertrophy. Moderate left ventricular diastolic dysfunction. Normal right ventricular structure and function. No evidence of PFO with agitated saline contrast. Trace tricuspid regurgitation. Mild pulmonary hypertension. (2) Hospital-acquired pneumonia Current Visit: Yes Status: Acute Assessment and Plan: Restarted on vancomycin and Zosyn (secondary to diabetic foot infection) Blood cultures- NGTD Urine antigens- negative azithromycin was discontinued MRSA nasal swab- negative Respiratory viral panel- negative Influenza negative proCalcitonin - 0.11 Lactic acid negative sputum cx - contaminated (3) Acute exacerbation of chronic obstructive pulmonary disease (COPD) Current Visit: Yes Status: Acute Assessment and Plan: Patient with diffuse wheezing on anterior chest- improved on Abx as above was treated with IV steroids- transitioned to PO Duo nebs every 4 hours Continue home inhalers Keep sats around 90% (4) Diabetic ulcer of right foot Current Visit: Yes Status: Acute Assessment and Plan: Eschar noted to distal aspect of right hallux, right 2nd digit, and lateral r ight fourth digit s/p debridement by podiatry on 09/19 Purulent drainage noted to right hallux and right digit #2. Foul odor noted from right hallux. No erythema or edema noted. Non-palpable pulses mrsa screen negative WBC 7.8 HGB A1C 10.4 ESR 80 CRP 27 will follow ISIDRO ID consulted for further recs for IV and possible PO Abx foot xray: IMPRESSION: Soft tissue wound about the tip of the right great toe with no evidence of underlying osteomyelitis. Status post previous amputation of the right 3rd toe and transmetatarsal amputation of the right little toe. (5) Acute respiratory failure Current Visit: Yes Status: Acute Assessment and Plan: secondary to above management as per above (6) Acute on chronic anemia Current Visit: Yes Status: Acute Assessment and Plan: Acute on chronic anemia secondary to unknown etiology ( most likely secondary o iro def adn CKD) ruled out GI etiology hemoglobin was 11.6 on 09/04 hours trended down to 7.7 on 09/17 s/p 1 prbc with improvement of H/H Colonoscopy on 09/20/18poor prep, to have capsule endoscopy as an outpatient. EGD on 09/20/18 with diffuse atrophic mucosa in the entire examined stomach status post biopsy Anti-periodontal and anti-intrinsic factor antibodies were sent will follow Will follow CBC daily Iron panel anemia of chronic disease- continue oral iron B12 WNL , folic acid WNL By mouth PPI FOBT- negative Transfuse as needed and keep H&H above 8 as he has cardiac history Avoid antiplatelets, anticoagulations, NSAIDs (7) Acute kidney injury superimposed on chronic kidney disease Current Visit: Yes Status: Acute Assessment and Plan: Most likely prerenal and possible ATN secondary to acute CHF exacerbation- renal functions are improving Has history of CKD 3A to 3B 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 Multilevel degenerative disc and facet disease, greatest L4-L5 and L5-S1. Calcification overlying the right renal shadow, raises the possibility of nephrolithiasis. (10) Dyslipidemia Current Visit: No Status: Chronic Assessment and Plan: improved continue home medications (11) Obesity (BMI 30.0-34.9) Current Visit: No Status: Chronic Assessment and Plan: counseled (12) Tobacco abuse Current Visit: No Status: Chronic Assessment and Plan: Nicotine patch Was counseled extensively on smoking cessation (13) DVT prophylaxis Current Visit: Yes Status: Acute Assessment and Plan: heparin SC - Time Spent with Patient Total time spent is greater than 50% in coordination of care (as documented) at patient's floor/unit and/or counseling patient: Internal Medicine: Result - Labs CBC & Chem 7: 09/20/18 03:33 09/20/18 03:33 Labs: Short CBC 09/20/18 Range/Units 03:33 WBC 8.6 (4.3-11.1) K/mcL Hgb 9.5 L (12.9-16.9) g/dL Hct 29.4 L (37.5-50.1) % Plt Count 300 (140-400) K/mcL BMP 09/20/18 03:33 Sodium 140 Potassium 4.6 Chloride 107 Carbon Dioxide 25 BUN 55 H Creatinine 1.88 H Glucose 130 H Calcium 8.6 - ABG Interpretation ABG results: ABG ABG pH 7.33 pH Units (7.32-7.45) 09/17/18 18:38 ABG pCO2 41 mmHg (35-45) 09/17/18 18:38 ABG pO2 60 mmHg (85-104) L 09/17/18 18:38 ABG O2 Saturation 89 % (95-98) L 09/17/18 18:38 PT/INR, D-dimer PT 12.3 Seconds (9.4-12.1) H 09/17/18 16:26 - Impressions Impressions Foot X-Ray 09/19/18 17:30 IMPRESSION: Soft tissue wound about the tip of the right great toe with no evidence of underlying osteomyelitis. Status post previous amputation of the right 3rd toe and transmetatarsal amputation of the right little toe. D/ /19/2018 22:01:50 Sebastián Baltazar MD / lgray Interpreting Provider: Sebastián Baltazar MD Consult Discharge Plan - Plan Referrals: Mark Coe MD [Primary Care Provider] - (5) Acute respiratory failure Qualifiers: Respiratory failure complication: hypoxia Qualified Code(s): J96.01 - Acute respiratory failure with hypoxia (9) Back pain Qualifiers: Back pain location: low back pain Chronicity: chronic Back pain laterality: bilateral Sciatica presence: without sciatica Qualified Code(s): M54.5 - Low back pain; G89.29 - Other chronic pain
[2018-09-20] MEDS: traZODone 50 MG TABLET PO SCH (20:18)
[2018-09-20] MEDS: *HR* Heparin 5,000 UNIT/ML VIAL SQ SCH (20:18)
[2018-09-20] MEDS ORDERED: Ipratropium/Albuterol Neb 3 ML IH PRN (23:05)
[2018-09-21] MEDS: levETIRAcetam 250 MG TABLET PO SCH ×2 (04:04→17:15)
[2018-09-21 05:02] LABS: Hematocrit 30.1 % (37.5-50.1); Hemoglobin 9.6 g/dL (12.9-16.9); Mean Corpuscular HGB Conc 31.9 g/dL (31.6-35.5); Mean Corpuscular Hemoglobin 28.7 pg (28.0-33.3); Mean Corpuscular Volume 90.1 fL (83.0-100.0); Mean Platelet Volume 8.7 fL (9.4-12.4); Platelet Count 285 K/mcL (140-400); Red Blood Count 3.34 M/mcL (4.19-5.50); Red Cell Distribution Width 13.2 % (11.5-14.5)
[2018-09-21 05:21] LABS: Calcium 8.6 mg/dL (8.6-10.3)
[2018-09-21] MEDS: *HR* Heparin 5,000 UNIT/ML VIAL SQ SCH ×3 (06:30→21:11)
[2018-09-21] MEDS: Insulin LISPRO 300 UNITS/3 ML VIAL SQ SCH ×4 (07:32→21:15)
[2018-09-21 08:45] LABS: Mycoplasma pneumoniae IgG 0.39 U/L (<=0.09)
[2018-09-21] MEDS: Vitamin B Complex/Vit C/Vit E 1 EACH TABLET PO SCH (08:47)
[2018-09-21] MEDS: Gabapentin 100 MG CAPSULE PO SCH ×3 (08:47→21:09)
[2018-09-21] MEDS: Fenofibrate 54 MG TABLET PO SCH (08:47)
[2018-09-21] MEDS: Lactobacillus 1 EACH CAP.SPRINK PO SCH ×2 (08:47→21:10)
[2018-09-21] MEDS: Nicotine 21 MG PATCH.TD24 TD SCH (08:48)
[2018-09-21] MEDS: amLODIPine 5 MG TABLET PO SCH (08:48)
[2018-09-21] MEDS: Magnesium Oxide 400 MG TABLET PO SCH ×2 (08:48→21:11)
[2018-09-21] MEDS: predniSONE 20 MG TABLET PO SCH (08:48)
[2018-09-21] MEDS: Aspirin Enteric Coated 81 MG Tablet PO SCH (08:48)
[2018-09-21] MEDS: Furosemide 40 MG TABLET PO SCH ×2 (08:48→17:16)
[2018-09-21] MEDS: Piperacillin/Tazobactam 3.375 GM in 0.9 % Sodium Chloride Mini Bag 100 ML IVPB SCH ×2 (08:49→17:14)
[2018-09-21] MEDS: Insulin DETEMIR 100 UNIT/ML X5UNITS SQ SCH ×2 (08:59→21:14)
--- NOTE | 2018-09-21 11:31 | Internal Med Progress Note ---
Hospitalist Progress Note - Encounter Date of Encounter: 09/21/18 Time of Encounter: 08:00 - Subjective Interval History: Patient was seen and examined at bedside. his respiratory status has improved. denies melena, hematochezia, N/v/D. tolerating by mouth diet. - Exam Vitals: Temp Pulse Resp BP Pulse Ox 97.9 F 58 20 168/80 98 09/21/18 07:08 09/21/18 07:08 09/21/18 07:08 09/21/18 07:08 09/21/18 09:03 Exam: General: Patient is alert, oriented, in moderate distress distress, obese, speaks in full sentences Head: atraumatic, normocephalic, Eye: normal appearance, PERRL, no scleral icterus, no conjunctival injection ENT: mucous membranes moist, normal external ear exam Neck: normal inspection, trachea midline, full ROM, no carotid bruits, JVD Chest: normal inspection, symmetric chest rise Respiratory: respiratory rate WNL, crackles - improved in the posterior lung acharya, mild wheezing in the Anterior chest Cardiovascular:distant heart sounds secondary to body habitus Regular rate and rhythm. s1 and s2 No clicks, rubs, gallops, or murmors. Abdomen: Bowel sounds present normoactive x-4 quadrants. Abdomen is soft, nondistended. no Epigastric tenderness. No guarding or rebound. No organomegaly noted, obese, no CVA tenderness musculoskeletal: Spontaneously moving all extremities. +2 pitting edema, no calf tenderness Skin: warm, dry, intact. Right lower extremity is wrapped with clean dressing- no signs of bleeding Neuro: Alert and oriented x4. Sensation light touch intact. No focal deficit Psych: Patient's affect is normal - Assessment and Plan (1) Diabetic ulcer of right foot Current Visit: Yes Status: Acute Assessment and Plan: Eschar noted to distal aspect of right hallux, right 2nd digit, and lateral right fourth digit s/p debridement by podiatry on 09/19 Purulent drainage noted to right hallux and right digit #2. Foul odor noted from right hallux. Wound cultures are growing MRSA and gram-negative jack Non-palpable pulses mrsa screen negative WBC 7.8 HGB A1C 10.4 ESR 80 CRP 27 will follow ISIDRO Continue vancomycin and Zosyn ID consulted for further recs for IV and possible PO Abx foot xray: IMPRESSION: Soft tissue wound about the tip of the right great toe with no evidence of underlying osteomyelitis. Status post previous amputation of the right 3rd toe and transmetatarsal amputation of the right little toe. (2) Acute on chronic diastolic heart failure Current Visit: Yes Status: Acute Assessment and Plan: Chest x-ray with pulmonary edema on admission-repeated on 09/19 with improvement on Lasix 40 mg by mouth twice a day BNP mildly elevated 149 Strict intake and output Daily weights Fluid restriction <1L restarted coreg tolerating ASA TTE 08/2018- LVEF 60-65%. Moderate concentric left ventricular hypertrophy. Moderate left ventricular diastolic dysfunction. Normal right ventricular structure and function. No evidence of PFO with agitated saline contrast. Trace tricuspid regurgitation. Mild pulmonary hypertension. (3) Hospital-acquired pneumonia Current Visit: Yes Status: Acute Assessment and Plan: Restarted on vancomycin and Zosyn (secondary to diabetic foot infection) Blood cultures- NGTD Urine antigens- negative azithromycin was discontinued MRSA nasal swab- negative Respiratory viral panel- negative Influenza negative proCalcitonin - 0.11 Lactic acid negative sputum cx - contaminated (4) Acute exacerbation of chronic obstructive pulmonary disease (COPD) Current Visit: Yes Status: Acute Assessment and Plan: Patient with diffuse wheezing on anterior chest- improved on Abx as above was treated with IV steroids- transitioned to PO Duo nebs every 4 hours Continue home inhalers Keep sats around 90% (5) Acute respiratory failure Current Visit: Yes Status: Acute Assessment and Plan: secondary to above management as per above (6) Acute on chronic anemia Current Visit: Yes Status: Acute Assessment and Plan: Acute on chronic anemia secondary to unknown etiology ( most likely secondary o iro def adn CKD) ruled out GI etiology hemoglobin was 11.6 on 09/04 hours trended down to 7.7 on 09/17 s/p 1 prbc with improvement of H/H Colonoscopy on 09/20/18poor prep, to have capsule endoscopy as an outpatient. EGD on 09/20/18 with diffuse atrophic mucosa in the entire examined stomach status post biopsy Annti parietal and anti-intrinsic factor antibodies were sent will follow Will follow CBC daily Iron panel anemia of chronic disease- continue oral iron B12 WNL , folic acid WNL By mouth PPI FOBT- negative Transfuse as needed and keep H&H above 8 as he has cardiac history Avoid antiplatelets, anticoagulations, NSAIDs (7) Acute kidney injury superimposed on chronic kidney disease Current Visit: Yes Status: Acute Assessment and Plan: Most likely prerenal and possible ATN secondary to acute CHF exacerbation- renal functions are stable 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 Multilevel degenerative disc and facet disease, greatest L4-L5 and L5-S1. Calcification overlying the right renal shadow, raises the possibility of nephrolithiasis. (10) Dyslipidemia Current Visit: No Status: Chronic Assessment and Plan: improved continue home medications (11) Obesity (BMI 30.0-34.9) Current Visit: No Status: Chronic Assessment and Plan: counseled (12) Tobacco abuse Current Visit: No Status: Chronic Assessment and Plan: Nicotine patch Was counseled extensively on smoking cessation (13) DVT prophylaxis Current Visit: Yes Status: Acute Assessment and Plan: heparin SC - Time Spent with Patient Total time spent is greater than 50% in coordination of care (as documented) at patient's floor/unit and/or counseling patient: Internal Medicine: Result - Labs CBC & Chem 7: 09/21/18 04:33 09/21/18 04:33 Labs: Short CBC 09/21/18 Range/Units 04:33 WBC 8.0 (4.3-11.1) K/mcL Hgb 9.6 L (12.9-16.9) g/dL Hct 30.1 L (37.5-50.1) % Plt Count 285 (140-400) K/mcL BMP 09/21/18 04:33 Sodium 142 Potassium 4.0 Chloride 110 H Carbon Dioxide 26 BUN 47 H Creatinine 2.00 H Glucose 88 Calcium 8.6 - ABG Interpretation ABG results: ABG ABG pH 7.33 pH Units (7.32-7.45) 09/17/18 18:38 ABG pCO2 41 mmHg (35-45) 09/17/18 18:38 ABG pO2 60 mmHg (85-104) L 09/17/18 18:38 ABG O2 Saturation 89 % (95-98) L 09/17/18 18:38 PT/INR, D-dimer PT 12.3 Seconds (9.4-12.1) H 09/17/18 16:26 - VTE Documentation of Mechanical Device: Intermittent pneumatic compression device Consult Discharge Plan - Plan Referrals: Mark Coe MD [Primary Care Provider] - (5) Acute respiratory failure Qualifiers: Respiratory failure complication: hypoxia Qualified Code(s): J96.01 - Acute respiratory failure with hypoxia (9) Back pain Qualifiers: Back pain location: low back pain Chronicity: chronic Back pain laterality: bilateral Sciatica presence: without sciatica Qualified Code(s): M54.5 - Low back pain; G89.29 - Other chronic pain
[2018-09-21] MEDS: Cholecalciferol (D-3) 1,000 UNIT TABLET PO SCH (17:15)
[2018-09-21] MEDS: *HR* OxyCODONE Immed Rel 5 MG TABLET PO PRN (21:08)
[2018-09-21] MEDS: traZODone 50 MG TABLET PO SCH (21:10)
[2018-09-22] MEDS: Piperacillin/Tazobactam 3.375 GM in 0.9 % Sodium Chloride Mini Bag 100 ML IVPB SCH ×2 (00:08→08:01)
[2018-09-22] MEDS ORDERED: *HR* OxyCODONE Immed Rel 5 MG TABLET PO ONE (00:28)
[2018-09-22] MEDS ORDERED: amLODIPine 5 MG TABLET PO ONE (00:31)
[2018-09-22] MEDS: levETIRAcetam 250 MG TABLET PO SCH ×2 (04:40→17:02)
[2018-09-22] MEDS: *HR* Heparin 5,000 UNIT/ML VIAL SQ SCH ×3 (04:42→21:51)
[2018-09-22 05:41] LABS: Hemoglobin 10.2 g/dL (12.9-16.9); Mean Corpuscular HGB Conc 32.9 g/dL (31.6-35.5); Mean Corpuscular Hemoglobin 28.7 pg (28.0-33.3); Mean Corpuscular Volume 87.3 fL (83.0-100.0); Mean Platelet Volume 8.6 fL (9.4-12.4); Platelet Count 296 K/mcL (140-400); Red Blood Count 3.55 M/mcL (4.19-5.50); Red Cell Distribution Width 12.8 % (11.5-14.5)
[2018-09-22 06:14] LABS: Calcium 8.6 mg/dL (8.6-10.3); Potassium 4.6 mEq/L (3.5-5.1)
[2018-09-22] MEDS: Lactobacillus 1 EACH CAP.SPRINK PO SCH ×2 (07:59→21:50)
[2018-09-22] MEDS: Furosemide 40 MG TABLET PO SCH ×2 (07:59→17:02)
[2018-09-22] MEDS: Vitamin B Complex/Vit C/Vit E 1 EACH TABLET PO SCH (07:59)
[2018-09-22] MEDS: Fenofibrate 54 MG TABLET PO SCH (07:59)
[2018-09-22] MEDS: Aspirin Enteric Coated 81 MG Tablet PO SCH (07:59)
[2018-09-22] MEDS: Cholecalciferol (D-3) 1,000 UNIT TABLET PO SCH (07:59)
[2018-09-22] MEDS: Gabapentin 100 MG CAPSULE PO SCH ×3 (08:00→21:50)
[2018-09-22] MEDS: amLODIPine 5 MG TABLET PO SCH ×2 (08:00→08:01)
[2018-09-22] MEDS: predniSONE 20 MG TABLET PO SCH (08:00)
[2018-09-22] MEDS: Magnesium Oxide 400 MG TABLET PO SCH ×2 (08:00→21:50)
[2018-09-22] MEDS: Nicotine 21 MG PATCH.TD24 TD SCH (08:00)
[2018-09-22] MEDS: Insulin LISPRO 300 UNITS/3 ML VIAL SQ SCH ×3 (08:12→17:02)
--- NOTE | 2018-09-22 08:45 | Internal Med Progress Note ---
Hospitalist Progress Note - Encounter Date of Encounter: 09/22/18 Time of Encounter: 08:00 - Subjective Interval History: Patient was seen and examined at bedside. his respiratory status has improved. denies melena, hematochezia, N/v/D. tolerating by mouth diet. - Exam Vitals: Temp Pulse Resp BP Pulse Ox 98.0 F 74 16 202/92 100 09/22/18 07:16 09/22/18 07:16 09/22/18 07:16 09/22/18 07:16 09/22/18 07:16 Exam: General: Patient is alert, oriented, in moderate distress distress, obese, speaks in full sentences Head: atraumatic, normocephalic, Eye: normal appearance, PERRL, no scleral icterus, no conjunctival injection ENT: mucous membranes moist, normal external ear exam Neck: normal inspection, trachea midline, full ROM, no carotid bruits, JVD Chest: normal inspection, symmetric chest rise Respiratory: respiratory rate WNL, crackles - improved in the posterior lung acharya, mild wheezing in the Anterior chest (improved) Cardiovascular:distant heart sounds secondary to body habitus Regular rate and rhythm. s1 and s2 No clicks, rubs, gallops, or murmors. Abdomen: Bowel sounds present normoactive x-4 quadrants. Abdomen is soft, nondistended. no Epigastric tenderness. No guarding or rebound. No organomegaly noted, obese, no CVA tenderness musculoskeletal: Spontaneously moving all extremities. +2 pitting edema, no calf tenderness Skin: warm, dry, intact. Right lower extremity is wrapped with clean dressing- no signs of bleeding Neuro: Alert and oriented x4. Sensation light touch intact. No focal deficit Psych: Patient's affect is normal - Assessment and Plan (1) Diabetic ulcer of right foot Current Visit: Yes Status: Acute Assessment and Plan: Eschar noted to distal aspect of right hallux, right 2nd digit, and lateral right fourth digit s/p debridement by podiatry on 09/19 Purulent drainage noted to right hallux and right digit #2. Foul odor noted from right hallux. Wound cultures are growing MRSA and enterobacter cloacae Non-palpable pulses mrsa screen negative WBC 7.8 HGB A1C 10.4 ESR 80 CRP 27 ISIDRO WNL Continue vancomycin and Zosyn ( both bacteria are sensitive) ID consulted for further recs for IV and possible PO Abx foot xray: IMPRESSION: Soft tissue wound about the tip of the right great toe with no evidence of underlying osteomyelitis. Status post previous amputation of the right 3rd toe and transmetatarsal amputation of the right little toe. (2) Acute on chronic diastolic heart failure Current Visit: Yes Status: Acute Assessment and Plan: Chest x-ray with pulmonary edema on admission-repeated on 09/19 with improvement on Lasix 40 mg by mouth twice a day BNP mildly elevated 149 Strict intake and output Daily weights Fluid restriction <1L on coreg, lisinopril tolerating ASA TTE 08/2018- LVEF 60-65%. Moderate concentric left ventricular hypertrophy. Moderate left ventricular diastolic dysfunction. Normal right ventricular structure and function. No evidence of PFO with agitated saline contrast. Trace tricuspid regurgitation. Mild pulmonary hypertension. (3) Hospital-acquired pneumonia Current Visit: Yes Status: Acute Assessment and Plan: on vancomycin and Zosyn (secondary to diabetic foot infection) Blood cultures- NGTD Urine antigens- negative azithromycin was discontinued MRSA nasal swab- negative Respiratory viral panel- negative Influenza negative proCalcitonin - 0.11 Lactic acid negative sputum cx - contaminated (4) Acute exacerbation of chronic obstructive pulmonary disease (COPD) Current Visit: Yes Status: Acute Assessment and Plan: Patient with diffuse wheezing on anterior chest- improved on Abx as above was treated with IV steroids- transitioned to PO and tapering Duo nebs every 4 hours Continue home inhalers Keep sats around 90% (5) Acute respiratory failure Current Visit: Yes Status: Acute Assessment and Plan: secondary to above management as per above (6) Acute on chronic anemia Current Visit: Yes Status: Acute Assessment and Plan: Acute on chronic anemia secondary to unknown etiology ( most likely secondary o iro def adn CKD) ruled out GI etiology hemoglobin was 11.6 on 09/04 hours trended down to 7.7 on 09/17 s/p 1 prbc with improvement of H/H Colonoscopy on 09/20/18poor prep, to have capsule endoscopy as an outpatient. EGD on 09/20/18 with diffuse atrophic mucosa in the entire examined stomach status post biopsy Annti parietal and anti-intrinsic factor antibodies were sent will follow Will follow CBC daily Iron panel anemia of chronic disease- continue oral iron B12 WNL , folic acid WNL By mouth PPI FOBT- negative Transfuse as needed and keep H&H above 8 as he has cardiac history Avoid antiplatelets, anticoagulations, NSAIDs (7) Acute kidney injury superimposed on chronic kidney disease Current Visit: Yes Status: Acute Assessment and Plan: Most likely prerenal and possible ATN secondary to acute CHF exacerbation- renal functions are stable 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 Multilevel degenerative disc and facet disease, greatest L4-L5 and L5-S1. Calcification overlying the right renal shadow, raises the possibility of nephrolithiasis. (10) Dyslipidemia Current Visit: No Status: Chronic Assessment and Plan: improved continue home medications (11) Obesity (BMI 30.0-34.9) Current Visit: No Status: Chronic Assessment and Plan: counseled (12) Tobacco abuse Current Visit: No Status: Chronic Assessment and Plan: Nicotine patch Was counseled extensively on smoking cessation (13) DVT prophylaxis Current Visit: Yes Status: Acute Assessment and Plan: heparin SC - Time Spent with Patient Total time spent is greater than 50% in coordination of care (as documented) at patient's floor/unit and/or counseling patient: Internal Medicine: Result - Labs CBC & Chem 7: 09/22/18 05:18 18 05:18 Labs: Short CBC 09/22/18 Range/Units 05:18 WBC 6.9 (4.3-11.1) K/mcL Hgb 10.2 L (12.9-16.9) g/dL Hct 31.0 L (37.5-50.1) % Plt Count 296 (140-400) K/mcL BMP 09/22/18 05:18 Sodium 139 Potassium 4.6 Chloride 108 H Carbon Dioxide 26 BUN 46 H Creatinine 1.94 H Glucose 332 H Calcium 8.6 - ABG Interpretation ABG results: ABG ABG pH 7.33 pH Units (7.32-7.45) 09/17/18 18:38 ABG pCO2 41 mmHg (35-45) 09/17/18 18:38 ABG pO2 60 mmHg (85-104) L 09/17/18 18:38 ABG O2 Saturation 89 % (95-98) L 09/17/18 18:38 PT/INR, D-dimer PT 12.3 Seconds (9.4-12.1) H 09/17/18 16:26 - VTE Documentation of Mechanical Device: Intermittent pneumatic compression device Consult Discharge Plan - Plan Referrals: Mark Coe MD [Primary Care Provider] - (1) Diabetic ulcer of right foot Qualifiers: Diabetic foot ulcer location: toe Diabetes mellitus type: type 2 Non- pressure ulcer stage: with necrosis of muscle Qualified Code(s): E11.621 - Type 2 diabetes mellitus with foot ulcer; L97.513 - Non-pressure chronic ulcer of other part of right foot with necrosis of muscle (5) Acute respiratory failure Qualifiers: Respiratory failure complication: hypoxia Qualified Code(s): J96.01 - Acute respiratory failure with hypoxia (9) Back pain Qualifiers: Back pain location: low back pain Chronicity: chronic Back pain laterality: bilateral Sciatica presence: without sciatica Qualified Code(s): M54.5 - Low back pain; G89.29 - Other chronic pain
[2018-09-22] MEDS: Insulin DETEMIR 100 UNIT/ML X5UNITS SQ SCH ×2 (10:46→21:51)
--- NOTE | 2018-09-22 13:19 | Infectious Disease Consult ---
Date of Encounter: 09/22/18 Time of Encounter: 13:13 Assessment and Plan (1) Diabetic ulcer of right foot Status: Acute Assessment and plan: Location: Right foot, 1st, 2nd, and 4th toes. Causative organism: MRSA and E. cloacae. Likely secondary to trauma. Non-healing. Podiatry consulted. X-ray negative for osteomyelitis. ESR 80, CRP 27. ABIs normal bilaterally. TCPO2 normal bilaterally. Per Podiatry, the wounds are chronic and he will follow in the wound clinic. No surgery planned at this point. Currently on Vanc and Zosyn. Recommendations: Wound care per the Podiatry team. Continue Vancomycin IV. Pharmacy to dose. Goal trough ~15. Discontinue Zosyn. Start levaquin 750mg IV Q48H. Dosed for CrCl ~38. Duration of treatment depends on the clinical picture. Can switch to doxycycline 100mg PO BID and levaquin 750mg PO Q48H to complete a 14 day course. Treat through 09/30/18. Monitor renal function and for drug toxicity and dose-adjust antibiotics. Qualifiers: Diabetic foot ulcer location: toe Diabetes mellitus type: type 2 Non- pressure ulcer stage: with necrosis of muscle Qualified Code(s): E11.621 - Type 2 diabetes mellitus with foot ulcer; L97.513 - Non-pressure chronic ulcer of other part of right foot with necrosis of muscle (2) Acute exacerbation of chronic obstructive pulmonary disease (COPD) Status: Acute Assessment and plan: Supportive care per the primary team. Appears improved. (3) Acute kidney injury superimposed on chronic kidney disease Status: Acute Assessment and plan: Nephrology consulted and signed off. Appears to be back to baseline. Avoid nephrotoxins. Monitor renal function and dose-adjust antibiotics. (4) Acute on chronic diastolic heart failure Status: Acute Assessment and plan: Supportive care per the primary team. (5) Acute respiratory failure Status: Acute Assessment and plan: Likely secondary to CHF and COPD. CXR negative for PNA. No sepsis criteria. RIP, UATs, and MRSA screen negative. Resolved. Qualifiers: Respiratory failure complication: hypoxia Qualified Code(s): J96.01 - Acute respiratory failure with hypoxia (6) Acute on chronic anemia Status: Acute Assessment and plan: GI consulted and following. FOBT negative. Status post colonoscopy and EGD that were non-revealing. Further workup and management per the primary team. (7) Back pain Status: Acute Qualifiers: Back pain location: low back pain Chronicity: chronic Back pain laterality: bilateral Sciatica presence: without sciatica Qualified Code(s): M54.5 - Low back pain; G89.29 - Other chronic pain (8) Diabetes mellitus Status: Acute Assessment and plan: Strict glucose control. 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 Regalado is a 63 year old male with a past medical history of COPD, CHF, CAD status post [place], diabetes, liver cirrhosis, hepatitis C secondary to remote hi story of IV drug use, chronic kidney disease, hypertension, hyperlipidemia and right foot infection status post A mutation of toes. Patient was admitted to the hospital 09/17/18 for hyperkalemia, COPD exacerbation, and anemia. We are consulted 09/22/18 for antibiotic recommendations her right foot infection. Briefly, the patient is a 63-year-old male with past medical history as stated above. The patient notes the ID services we have a consult on his case in the past for right foot infection. Apparently, the patient presented to the ER with a 3 day history of worsening shortness of breath and congestion. Upon arrival, the patient was tachypneic, but was afebrile and otherwise hemodynamically stable. He was noted to be hypoxic with an SPO2 of 76%. Labs were studies revealed an acute kidney injury. His white blood cell count, lactic acid, LFTs were normal. Her calcitonin was checked and was 0.11. Urinalysis was good. MRSA nasal screen was negative. Urine drug screen was negative. Respiratory infections and was negative. Chest x-ray showed pulmonary edema. He was complaining some lower back pain so they performed an L-spine x-ray that was negative for acute changes. He was started empirically on IV antibiotics and admitted to the hospital for further evaluation. Since admission, the patient's undergone a retroperitoneal ultrasound showed a small amount of perinephric fluid bilaterally, but was otherwise negative. Nephrology was consulted to assist with his acute kidney injury and has since signed off. GI was consulted to assist with his anemia. He underwent colonoscopy and small bowel enteroscopy that were not revealing for bleeding. A repeat chest x-ray 09/19/18 showed improved pulmonary edema. Podiatry was consulted due to chronic nonhealing ulcerations to the right first, second, and third toes. A foot x-ray was negative prostate myelitis. ESR was elevated at 80 with a CRP of 27. Right foot cultures are positive for MRSA and Enterobacter. Bilateral ISIDRO testing was normal as well as TCP O2 monitoring. Currently, the patient is on IV vancomycin and Zosyn. We have asked to evaluate and make further recommendations. During my exam today, the patient endorses the history as stated above. He states that he started having chest congestion and upper respiratory symptoms about a week ago. He developed worsening shortness of breath about 3 days prior to admission. He reports nasal drainage with a productive cough with yellow/green sputum. He denies any fevers or chills or rigors. Denies any headache or neck pain. Denies any weakness or dizziness. Denies any nausea, vomiting, or constipation. He reported he had some diarrhea for 2 days prior to admission that has since resolved. He denies abdominal pain or urinary complaints. States his appetite has been okay. He denies oral thrush or new skin lesions. He states ulcerations to his toes have been there for several months were caused by him taking the wall secondary to restless leg syndrome. He does have peripheral neuropathy so he was unaware that he was doing it. He states his right foot is chronically painful and is at baseline. He denies any known changes to the ulcerations. He has not been seen in the wound clinic since July. The patient currently resides at a local extended care facility where he lives all the time. He smokes one to one and a half pack of cigarettes per day. He denies any alcohol or illicit drug use. He reports a history of chronic hepatitis C and has not ever been treated. He denies recent travel outside the [facility]. He denies any pattern or animal exposures. Denies any prolonged exposure to water. CC: Maggie Colon MD Past Med Surg Social Fam HX - Past Medical History Attestation: Yes The following information was validated with the patient. Source: patient, old records reviewed, nursing notes reviewed Medical history: arthritis, COPD, dementia, diabetes, GERD, hepatitis, hyperlipidemia, hypertension, myocardial infarction, osteoporosis, renal disease, syncope Additional medical history: CHRONIC KIDNEY DISEASE, SMOKER, HEPATITIS, SYNCOPE, OSTEOPOROSIS Psychiatric history: anxiety, depression, panic disorder - Past Surgical History Surgical History: cataract, LE stent(s), orthopedic, other Additional surgical history: CATARACT, LLE FRACTURE, LLE STENT, HERNIA REPAIR - Social History Smoking Status: Current every day smoker Packs per day: 1 Smokeless Tobacco Status: No Alcohol use: none Drug use: none Occupational status: disabled Current living situation: ECF Activity Level: Independent ambulation Recent Out of Country Travel Within the Last 8 Weeks: No Exposure or Possible Exposure to Illness During Travel: No - Family History Father Living Status: Mother Family Member Ethnicity: Non- Living Status: Hx Family Cardiac Disorders: Yes Hx Family Respiratory Disorders: Yes Hx Family Cancer: Yes Hx Family GI Disorders: No Hx Family Endocrine Disorder: Yes Hx Family Neuromuscular Disorders: No Hx Family Neurologic Disorders: Yes Hx Family HEENT Disorders: No Hx Family Autoimmune Disorders: No Infectious Disease-CN:Meds RX: Albuterol Sulfate [Ventolin Hfa] 2 puff IH Q6H PRN 08/20/18 [History] RX: Atorvastatin [Lipitor] 40 mg PO HS 08/20/18 [History] RX: Carvedilol [Coreg] 25 mg PO BID 08/20/18 [History] RX: Cholecalciferol (Vitamin D3) [Vitamin D3] 50,000 unit PO MÁRQUEZ 08/20/18 [History] RX: Citalopram [CeleXA] 20 mg PO DAILY 08/20/18 [History] RX: Ferrous Sulfate 325 mg PO BID 08/20/18 [History] RX: Fluticasone Propionate [Flovent Diskus] 1 puff IH BID 08/20/18 [History] RX: Gabapentin [Neurontin] 200 mg PO TID 08/20/18 [History] RX: Insulin LISPRO [HumaLOG] 0 - 12 units SQ QID PRN 08/20/18 [History] RX: Lactobacillus [Culturelle] 1 cap PO BID 08/20/18 [History] RX: LevETIRAcetam [Keppra] 750 mg PO Q12H 08/20/18 [History] RX: Magnesium Oxide [Magnesium] 400 mg PO BID 08/20/18 [History] RX: Metformin HCl 500 mg PO BID 08/20/18 [History] RX: Polyethylene Glycol 3350 [MiraLAX] 17 gm PO HS 08/20/18 [History] RX: Pramipexole Di-HCl [Pramipexole Dihydrochloride] 0.125 mg PO HS 08/20/18 [History] RX: Sennosides/Docusate Sodium [Senna-Docusate Sodium Tablet] 1 tab PO HS PRN 08/20/18 [History] RX: Tiotropium [Spiriva] 2 puff IH DAILY 08/20/18 [History] RX: Trazodone HCl 50 mg PO HS 08/20/18 [History] RX: Vitamin B Complex [B Complex] 1 tab PO DAILY 08/20/18 [History] RX: amLODIPine [Norvasc] 5 mg PO DAILY 08/20/18 [History] Albuterol Neb [Proventil Neb] 2.5 mg IH QID 09/18/18 [History] Amoxicillin/Clavulanate [Augmentin] 1 tab PO BID 09/18/18 [History] Aspirin Enteric Coated [Aspirin EC] 81 mg PO DAILY 09/18/18 [History] Docusate Sodium [Doc-Q-Lace] 100 mg PO HS PRN 09/18/18 [History] Enalapril Maleate [Vasotec] 10 mg PO HS 09/18/18 [History] Furosemide [Lasix] 80 mg PO DAILY 09/18/18 [History] Guaifenesin [Mucinex] 600 mg PO Q12H 09/18/18 [History] Insulin Glargine [Lantus] 60 unit SQ BID 09/18/18 [History] Insulin LISPRO [HumaLOG] 6 units SQ TID 09/18/18 [History] Omeprazole Magnesium [Prilosec Otc] 20 mg PO DAILY 09/18/18 [History] Allergy/AdvReac Type Severity Reaction Status Date / Time acetaminophen Allergy Hives Verified 09/19/17 12:11 [From Darvocet-N] ibuprofen Allergy Hives Verified 09/19/17 12:11 propoxyphene Allergy Hives Verified 09/19/17 12:11 [From Darvocet-N] tramadol [From Ultram] Allergy Hives Verified 09/19/17 12:11 All systems: reviewed and no additional remarkable complaints except as stated Exam - Constitutional Vitals: Temp Pulse Resp BP Pulse Ox 97.7 F 62 18 190/78 100 09/22/18 12:03 09/22/18 12:03 09/22/18 12:03 09/22/18 12:03 09/22/18 12:03 General appearance: cooperative, no acute distress, obese - Head Head exam: Present: atraumatic, normal inspection, normocephalic - Eye Eye exam: Present: EOMI, normal appearance, PERRL Pupils: Present: normal accommodation - ENT ENT exam: Present: mucous membranes moist - Neck Neck exam: Present: normal inspection - Respiratory Respiratory exam: Present: CTAB. Absent: rales, respiratory distress, rhonchi, wheezes - Cardiovascular Cardiovascular exam: Present: RRR, +S1, +S2 - GI/Abdominal GI/Abdominal exam: Present: distended (obese), normal bowel sounds, soft. Absent: tenderness - Extremities Exam Extremities exam: Present: tenderness (right foot). Absent: normal inspection (Right foot ulcerations noted to the distal 1st toe, dorsal 2nd toe, and dorsal 4th toe. No surrounding erythema, warmth, or drainage. No fluctuance noted. Te nderness noted on exam.), pedal edema - Neurological Exam Neurological exam: Present: alert, oriented X3, no focal deficits - Psychiatric Psychiatric exam: Present: normal affect, normal mood - Skin Skin exam: Present: dry, intact, normal color, warm Infectious Disease CN: Results - Labs CBC & Chem 7: 09/22/18 05:18 09/22/18 05:18 Cultures: Cultures 09/19/18 17:30 Wound Culture - Final Right Fourth Toe Methicillin Resistant S.aureus 09/19/18 17:30 Wound Culture - Final Right Foot Methicillin Resistant S.aureus 09/19/18 17:30 Wound Culture - Final Right Great Toe Methicillin Resistant S.aureus Enterobacter cloacae complex 09/17/18 07:35 Sputum Culture - Final Sputum 09/17/18 16:26 Blood Culture - Preliminary Peripheral Venipuncture Culture is incubating and being continuously monitored for growth. Final report to follow. 09/17/18 14:45 Legionella Antigen - Final Urine,Clean Catch Streptococcus pneumoniae Antigen (M - Final Serology: Serology 09/21/18 09/19/18 09/19/18 Range/Units 20:50 04:15 04:15 Urine Color (Yellow) Urine Clarity (Clear) Urine pH (5.0-8.0) pH Units Ur Specific [place] (1.010-1.025) Urine Protein (Neg-Trace) mg/dL Urine Glucose (UA) (Normal) mg/dL Urine Ketones (Negative) mg/dL Urine Blood (Negative) Urine Nitrite (Negative) Urine Bilirubin (Negative) Urine Urobilinogen (Normal) mg/dL Ur Leukocyte Esterase (Negative) Urine Microscopic RBC (0-3) per hpf Urine Microscopic WBC (0-3) per hpf Ur Eosinophil Smear (None Seen) % Ur Squamous Epith Cells (None-Few) per lpf Amorphous Sediment (Few) Urine Bacteria (None-Few) per hpf Hyaline Casts (None-Few) per lpf Ur Culture Indicated? (NO) Urine Osmolality (300-1090) mOsm/kg Urine Creatinine 82 mg/dL Urine Sodium 46.7 mEq/L Ur Uric Acid 34 mg/dL Nasal Screen MRSA (PCR) (Negative) Stool Occult Bld Scrn (Negative) Stool Occult Blood Negative (Negative) Chlamy pneumoniae PCR (Not Detect) Adenovirus (PCR) (Not Detect) B. pertussis DNA (PCR) (Not Detect) B.parapertussis DNA PCR (Not Detect) Coronavirus OC43 (PCR) (Not Detect) Coronavirus HKU1 (PCR) (Not Detect) Coronavirus 229E (PCR) (Not Detect) Coronavirus NL63 (PCR) (Not Detect) Human Metapneumovir PCR (Not Detect) Influenza A (H1) PCR (Not Detect) Influ A (H1N1/09) PCR (Not Detect) Influenza A (H3) PCR (Not Detect) Influenza A Untype (PCR) (Not Detect) Influenza Type B (PCR) (Not Detect) Mycoplasma pneumon IgG (<=0.09) U/L Mycoplasma pneumon IgM (<=0.76) U/L M.pneumoniae DNA (PCR) (Not Detect) Parainfluenza 1 (PCR) (Not Detect) Parainfluenza 2 (PCR) (Not Detect) Parainfluenza 3 (PCR) (Not Detect) Parainfluenza 4 (PCR) (Not Detect) RSV (PCR) (Not Detect) Entero/Rhino (PCR) (Not Detect) 09/19/18 09/19/18 09/17/18 Range/Units 04:15 04:15 18:05 Urine Color Yellow (Yellow) Urine Clarity Clear (Clear) Urine pH 5.5 (5.0-8.0) pH Units Ur Specific [place] 1.016 (1.010-1.025) Urine Protein >=300 H (Neg-Trace) mg/dL Urine Glucose (UA) 250 H (Normal) mg/dL Urine Ketones Negative (Negative) mg/dL Urine Blood Large H (Negative) Urine Nitrite Negative (Negative) Urine Bilirubin Negative (Negative) Urine Urobilinogen Normal (Normal) mg/dL Ur Leukocyte Esterase Negative (Negative) Urine Microscopic RBC 30-50 H (0-3) per hpf Urine Microscopic WBC 0-3 (0-3) per hpf Ur Eosinophil Smear 0 (None Seen) % Ur Squamous Epith Cells Moderate H (None-Few) per lpf Amorphous Sediment (Few) Urine Bacteria None Seen (None-Few) per hpf Hyaline Casts None Seen (None-Few) per lpf Ur Culture Indicated? NO (NO) Urine Osmolality (300-1090) mOsm/kg Urine Creatinine mg/dL Urine Sodium mEq/L Ur Uric Acid mg/dL Nasal Screen MRSA (PCR) Negative (Negative) Stool Occult Bld Scrn (Negative) Stool Occult Blood (Negative) Chlamy pneumoniae PCR (Not Detect) Adenovirus (PCR) (Not Detect) B. pertussis DNA (PCR) (Not Detect) B.parapertussis DNA PCR (Not Detect) Coronavirus OC43 (PCR) (Not Detect) Coronavirus HKU1 (PCR) (Not Detect) Coronavirus 229E (PCR) (Not Detect) Coronavirus NL63 (PCR) (Not Detect) Human Metapneumovir PCR (Not Detect) Influenza A (H1) PCR (Not Detect) Influ A (H1N1/09) PCR (Not Detect) Influenza A (H3) PCR (Not Detect) Influenza A Untype (PCR) (Not Detect) Influenza Type B (PCR) (Not Detect) Mycoplasma pneumon IgG (<=0.09) U/L Mycoplasma pneumon IgM (<=0.76) U/L M.pneumoniae DNA (PCR) (Not Detect) Parainfluenza 1 (PCR) (Not Detect) Parainfluenza 2 (PCR) (Not Detect) Parainfluenza 3 (PCR) (Not Detect) Parainfluenza 4 (PCR) (Not Detect) RSV (PCR) (Not Detect) Entero/Rhino (PCR) (Not Detect) 09/17/18 09/17/18 09/17/18 Range/Units 16:26 14:45 12:19 Urine Color Yellow (Yellow) Urine Clarity Cloudy A (Clear) Urine pH 5.0 (5.0-8.0) pH Units Ur Specific [place] 1.023 (1.010-1.025) Urine Protein >=300 H (Neg-Trace) mg/dL Urine Glucose (UA) Normal (Normal) mg/dL Urine Ketones Negative (Negative) mg/dL Urine Blood Negative (Negative) Urine Nitrite Negative (Negative) Urine Bilirubin Negative (Negative) Urine Urobilinogen Normal (Normal) mg/dL Ur Leukocyte Esterase Negative (Negative) Urine Microscopic RBC 5-15 H (0-3) per hpf Urine Microscopic WBC 3-5 H (0-3) per hpf Ur Eosinophil Smear (None Seen) % Ur Squamous Epith Cells Many H (None-Few) per lpf Amorphous Sediment Few (Few) Urine Bacteria Many H (None-Few) per hpf Hyaline Casts Few (None-Few) per lpf Ur Culture Indicated? NO (NO) Urine Osmolality (300-1090) mOsm/kg Urine Creatinine mg/dL Urine Sodium mEq/L Ur Uric Acid mg/dL Nasal Screen MRSA (PCR) (Negative) Stool Occult Bld Scrn (Negative) Stool Occult Blood (Negative) Chlamy pneumoniae PCR Not Detected (Not Detect) Adenovirus (PCR) Not Detected (Not Detect) B. pertussis DNA (PCR) Not Detected (Not Detect) B.parapertussis DNA PCR Not Detected (Not Detect) Coronavirus OC43 (PCR) Not Detected (Not Detect) Coronavirus HKU1 (PCR) Not Detected (Not Detect) Coronavirus 229E (PCR) Not Detected (Not Detect) Coronavirus NL63 (PCR) Not Detected (Not Detect) Human Metapneumovir PCR Not Detected (Not Detect) Influenza A (H1) PCR Not Detected (Not Detect) Influ A (H1N1/09) PCR Not Detected (Not Detect) Influenza A (H3) PCR Not Detected (Not Detect) Influenza A Untype (PCR) Not Detected (Not Detect) Influenza Type B (PCR) Not Detected (Not Detect) Mycoplasma pneumon IgG 0.39 H (<=0.09) U/L Mycoplasma pneumon IgM 0.11 (<=0.76) U/L M.pneumoniae DNA (PCR) Not Detected (Not Detect) Parainfluenza 1 (PCR) Not Detected (Not Detect) Parainfluenza 2 (PCR) Not Detected (Not Detect) Parainfluenza 3 (PCR) Not Detected (Not Detect) Parainfluenza 4 (PCR) Not Detected (Not Detect) RSV (PCR) Not Detected (Not Detect) Entero/Rhino (PCR) Not Detected (Not Detect) 09/17/18 09/17/18 09/17/18 Range/Units 11:52 02:25 02:25 Urine Color (Yellow) Urine Clarity (Clear) Urine pH (5.0-8.0) pH Units Ur Specific [place] (1.010-1.025) Urine Protein (Neg-Trace) mg/dL Urine Glucose (UA) (Normal) mg/dL Urine Ketones (Negative) mg/dL Urine Blood (Negative) Urine Nitrite (Negative) Urine Bilirubin (Negative) Urine Urobilinogen (Normal) mg/dL Ur Leukocyte Esterase (Negative) Urine Microscopic RBC (0-3) per hpf Urine Microscopic WBC (0-3) per hpf Ur Eosinophil Smear (None Seen) % Ur Squamous Epith Cells (None-Few) per lpf Amorphous Sediment (Few) Urine Bacteria (None-Few) per hpf Hyaline Casts (None-Few) per lpf Ur Culture Indicated? (NO) Urine Osmolality 474 (300-1090) mOsm/kg Urine Creatinine mg/dL Urine Sodium 49.4 mEq/L Ur Uric Acid mg/dL Nasal Screen MRSA (PCR) (Negative) Stool Occult Bld Scrn Negative (Negative) Stool Occult Blood (Negative) Chlamy pneumoniae PCR (Not Detect) Adenovirus (PCR) (Not Detect) B. pertussis DNA (PCR) (Not Detect) B.parapertussis DNA PCR (Not Detect) Coronavirus OC43 (PCR) (Not Detect) Coronavirus HKU1 (PCR) (Not Detect) Coronavirus 229E (PCR) (Not Detect) Coronavirus NL63 (PCR) (Not Detect) Human Metapneumovir PCR (Not Detect) Influenza A (H1) PCR (Not Detect) Influ A (H1N1/09) PCR (Not Detect) Influenza A (H3) PCR (Not Detect) Influenza A Untype (PCR) (Not Detect) Influenza Type B (PCR) (Not Detect) Mycoplasma pneumon IgG (<=0.09) U/L Mycoplasma pneumon IgM (<=0.76) U/L M.pneumoniae DNA (PCR) (Not Detect) Parainfluenza 1 (PCR) (Not Detect) Parainfluenza 2 (PCR) (Not Detect) Parainfluenza 3 (PCR) (Not Detect) Parainfluenza 4 (PCR) (Not Detect) RSV (PCR) (Not Detect) Entero/Rhino (PCR) (Not Detect) - VTE Documentation of Mechanical Device: Intermittent pneumatic compression device Consult Discharge Plan - Plan Referrals: Mark Coe MD [Primary Care Provider] - - Attending Attestation I examined this patient and my medical decision-making was reviewed with the Resident Physician. I agree with the documented findings, disposition and treatment plan as described except to the extent set forth below. This is an addendum to original report dictated by Elis Moffett CNP. Patient is a 63-year-old man with past medical history mentioned below came in with diabetic foot ulcer with MRSA and Enterobacter. Patient also has is acute on chronic kidney disease. We were asked to evaluate the patient and make further recommendations. Patient had an x-ray done on 09/19/2015 which showed soft tissue wound above the tip of the right great toe with no evidence of underlying osteomyelitis. ESR though was elevated at 80. Swab cultures were positive for MRSA and Enterobacter. Patient's creatinine clearance is around 36. Recommendations ON discharge [place] oral doxycycline and oral levofloxacin every 48 If patient's symptoms do not resolve consider osteomyelitis and we will do an MRI at that point.
[2018-09-22] MEDS ORDERED: Insulin LISPRO 300 UNITS/3 ML VIAL SQ SCH (13:33)
[2018-09-22] MEDS ORDERED: Levofloxacin 750 MG/150 ML 750 MG/150 ML BAG IVPB SCH (14:00)
--- NOTE | 2018-09-22 14:03 | Electrocardiograph Report ---
[address] [address] Test Date: 2018-09-20 Pat Name: Nikita Regalado Department: [id number] Room: 2NE27 Gender: M Board Setter: ALEJANDRO : 1955 Requested By: Eddie Singer Order Number: [id number] Reading MD: Mal Sapp Measurements Intervals [place] Rate: 56 P: 43 MO: 163 QRS: 11 QRSD: 92 T: 31 QT: 447 QTc: 439 Interpretive Statements SINUS BRADYCARDIA Electronically Signed On 09-22-2018 14:01:34 EST by Mal Sapp
[2018-09-22] MEDS ORDERED: Aminoglycoside Consult 1 EACH MC ONE (15:15)
--- NOTE | 2018-09-22 15:30 | Podiatry Progress Note ---
Date of Encounter: 09/22/18 Time of Encounter: 12:00 - Assessment and Plan (1) Toe ulcer due to DM Current Visit: No Status: Acute Assessment: Right hallux with slough noted. Right 2nd digit with eschar noted. Right 5th digit with eschar noted. No erythema or edema noted. Non-palpable pulses WBC 6.9 today HGB A1C 10.4 ESR 80, CRP 2 Wound culture of right hallux positive for MRSA and enterococcus. Wound culture of right 2nd digit and right 5th digit positive for MRSA. ID consulted and following for ATB management ISIDRO R DP 1.01, R PT 0.92, L DP 1.02, L PT 0.96 TCP02 R ankle 60, R foot 43, L ankle 115, 146 Plan: Local wound care. Maxorb placed to right hallux, adaptic placed to all other ulcerations. Covered with 4 x 4 dry gauze and kerlex. Recommend tight glycemic control to promote wound healing. Follow up in wound care center with Dr. Pace in one week s/p discharge. Qualifiers: Diabetes mellitus type: type 2 Laterality: right Non-pressure ulcer stage: with fat layer exposed Qualified Code(s): E11.621 - Type 2 diabetes mellitus with foot ulcer; L97.512 - Non-pressure chronic ulcer of other part of right foot with fat layer exposed (2) Diabetes mellitus Current Visit: Yes Status: Acute Assessment: HGB A1C 10.4 Plan: Recommend tight glycemic control to promote wound healing. 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 Ambulates to bed without difficulty. Reports dressing has not been changed today. Denies any calf pain, shortness of breath, or chest pain. Denies any nausea, vomiting, diarrhea, fevers, or chills. States he is ready to go home. Objective - Vital Signs Vital Signs: Vital Signs Temp Pulse Resp BP Pulse Ox 12/17/18 12:03 97.7 F 62 18 190/78 100 09/22/18 07:16 98.0 F 74 16 202/92 100 09/22/18 04:39 182/74 09/22/18 04:36 97.7 F 57 14 186/70 100 09/22/18 03:27 19 96 09/22/18 01:40 97.9 F 56 20 183/86 97 09/21/18 23:31 97.8 F 59 18 185/78 99 09/21/18 22:27 97.6 F 61 20 180/80 96 09/21/18 22:00 22 174/63 98 09/21/18 20:37 97.9 F 60 16 174/63 91 09/21/18 16:03 98.6 F 60 15 190/82 92 Intake and Output 09/21/18 09/22/18 09/22/18 23:59 07:59 15:59 Intake Total 710 / 710 100 / 100 640 / 640 Output Total 1650 / 1650 1225 / 1225 625 / 625 Balance -940 / -940 -1125 / -1125 Intake: IV Fluids 350 / 350 100 / 100 100 / 100 Zosyn 3.375 GM In 0.9 % Sodium 100 / 100 100 / 100 100 / 100 Chloride (Mini-Bag +) 100 ML @ 25 mls/hr IVPB Q8HR ON LICENSE OF [facility] Rx#: [id number] Vancocin 1,500 MG In 0.9 % 250 / 250 Sodium Chloride 250 ML @ 166.67 mls/hr IVPB Q24H ON LICENSE OF [facility] Rx#: [id number] Oral 360 / 360 540 / 540 Output: Urine 1650 / 1650 1225 / 1225 625 / 625 Other: Meal Breakfast Lunch Percent of Meal Consumed 100% 100% Stool Size Small Stool Consistency soft formed Stool Color Brown Green Weight 114.5 kg Blood Glucose* 342 305 220 - Lab Result Diagrams: 09/22/18 05:18 09/22/18 05:18 Labs: Abnormal lab results RBC 3.55 M/mcL (4.19-5.50) L 09/22/18 05:18 Hgb 10.2 g/dL (12.9-16.9) L 09/22/18 05:18 Hct 31.0 % (37.5-50.1) L 09/22/18 05:18 MPV 8.6 fL (9.4-12.4) L 09/22/18 05:18 Lymphocytes # 0.5 K/mcL (0.6-4.6) L 09/18/18 06:10 Nucleated RBCs/100 WBC 0.3 /100 WBC (0) H 09/18/18 06:10 ESR 80 mm/hr (0-10) H 09/19/18 17:12 PT 12.3 Seconds (9.4-12.1) H 09/17/18 16:26 ABG pO2 60 mmHg (85-104) L 09/17/18 18:38 ABG O2 Saturation 89 % (95-98) L 09/17/18 18:38 ABG Base Excess -4 mEq/L (-2 to 3) L 09/17/18 18:38 Chloride 108 mEq/L (98-107) H 09/22/18 05:18 BUN 46 mg/dL (8-23) H 09/22/18 05:18 Creatinine 1.94 mg/dL (0.70-1.30) H 09/22/18 05:18 Est GFR ( Amer) 43 (> 60) L 09/22/18 05:18 Est GFR (Non-Af Amer) 35 (> 60) L 09/22/18 05:18 Glucose 332 mg/dL (70-105) H 09/22/18 05:18 POC Glucose 306 mg/dL (70-99) H 09/22/18 01:43 Hemoglobin A1c 10.4 % (-5.6) H 09/18/18 06:10 Calculated Osmolality 313 (280-300) H 09/22/18 05:18 Phosphorus 5.1 mg/dL (2.7-4.5) H 09/18/18 06:10 Iron 16 mcg/dL (65-175) L 09/17/18 16:26 % Saturation 5 % (20-55) L 09/17/18 16:26 AST 12 Units/L (13-39) L 09/17/18 10:30 C-Reactive Protein 27 mg/L (Less than 10) H 09/19/18 17:12 B-Natriuretic Peptide 149 pg/mL (Less than 100) H 09/17/18 10:30 Serum Total Protein 6.0 g/dL (6.4-8.9) L 09/17/18 10:30 Albumin 3.0 g/dL (3.5-5.7) L 09/17/18 10:30 Albumin/Globulin Ratio 1.0 (1.1-2.2) L 09/17/18 10:30 Triglycerides 207 mg/dL (< 150) H 09/18/18 06:10 LDL Cholesterol, Calc 102 mg/dL (0-99) H 09/18/18 06:10 VLDL Cholesterol, Calc 41 mg/dL (< 31) H 09/18/18 06:10 HDL Cholesterol 23 mg/dL (40-59) L 09/18/18 06:10 Cholesterol/HDL Ratio 7.2 (0-4.9) H 09/18/18 06:10 Folate > 22.3 ng/mL (3.0-16.0) H 09/17/18 16:27 Procalcitonin 0.11 ng/mL (<=0.07) H 09/17/18 16:26 Urine Protein >=300 mg/dL (Neg-Trace) H 09/19/18 04:15 Urine Glucose (UA) 250 mg/dL (Normal) H 09/19/18 04:15 Urine Blood Large (Negative) H 09/19/18 04:15 Urine Microscopic RBC 30-50 per hpf (0-3) H 09/19/18 04:15 Ur Squamous Epith Cells Moderate per lpf (None-Few) H 09/19/18 04:15 Vancomycin Trough 17 mcg/mL (5-10) H 09/21/18 20:01 Mycoplasma pneumon IgG 0.39 U/L (<=0.09) H 09/17/18 16:26 Microbiology, Last 48 Hours 09/19/18 17:30 Wound Culture - Final Right Fourth Toe Methicillin Resistant S.aureus 09/19/18 17:30 Wound Culture - Final Right Foot Methicillin Resistant S.aureus 09/19/18 17:30 Wound Culture - Final Right Great Toe Methicillin Resistant S.aureus Enterobacter cloacae complex - VTE Documentation of Mechanical Device: Intermittent pneumatic compression device Consult Discharge Plan - Plan Referrals: Mark Coe MD [Primary Care Provider] -
[2018-09-22] MEDS ORDERED: Lisinopril 20 MG TABLET PO SCH (21:00)
[2018-09-22] MEDS: traZODone 50 MG TABLET PO SCH (21:50)
[2018-09-23] MEDS ORDERED: *HR* Labetalol 20 MG/4 ML SYRINGE IVP ONE (04:03)
[2018-09-23] MEDS: levETIRAcetam 250 MG TABLET PO SCH (04:19)
[2018-09-23] MEDS: *HR* Heparin 5,000 UNIT/ML VIAL SQ SCH (04:19)
--- NOTE | 2018-09-23 05:40 | Event Note ---
Date of Encounter: 09/23/18 Time of Encounter: 02:40 Notified by nurse of patient with elevated blood pressure along with bradycardia. Lisinopril currently being held due to renal function, on coreg and amlodipine. Consulted with pharmacy for recommended alternatives, tried IV Enalaprilat, and blood pressure continued to increase. Then attempted IV Labetalol and nurse noticed possible rhythm changes on monitor. Stat EKG obtained showed sinus bradycardia, assessed patient at beside, blood pressure systolic slightly decreased, patient without any symptoms. Will continue to monitor blood pressure hourly to ensure trending down. EKG and plan reviewed with Dr Dickinson.
[2018-09-23] MEDS ORDERED: hydrALAZINE 25 MG TABLET PO SCH (08:00)
[2018-09-23] MEDS ORDERED: Doxycycline 100 MG CAPSULE PO SCH ×2 (09:00→18:00)
[2018-09-23] MEDS ORDERED: predniSONE 10 MG TABLET PO SCH (09:00)
--- NOTE | 2018-09-23 09:09 | Infectious Disease Progress No ---
Date of Encounter: 09/23/18 Time of Encounter: 09:06 - Assessment and Plan (1) Diabetic ulcer of right foot Status: Acute Location: Right foot, 1st, 2nd, and 4th toes. Causative organism: MRSA and E. cloacae. Likely secondary to trauma. Non-healing. Podiatry consulted. X-ray negative for osteomyelitis. ESR 80, CRP 27. ABIs normal bilaterally. TCPO2 normal bilaterally. Per Podiatry, the wounds are chronic and he will follow in the wound clinic. No surgery planned at this point. Currently on Vanc and Zosyn. Recommendations: Wound care per the Podiatry team. Continue doxycycline 100 mg by mouth twice a day. Continue t levaquin 750mg by mouth Q48H. Dosed for CrCl ~38. Duration of treatment depends on the clinical picture, likely a total of 14 days. Treat through 09/30/18. Monitor renal function and for drug toxicity and dose-adjust antibiotics. Qualifiers: Diabetic foot ulcer location: toe Diabetes mellitus type: type 2 Non- pressure ulcer stage: with necrosis of muscle Qualified Code(s): E11.621 - Type 2 diabetes mellitus with foot ulcer; L97.513 - Non-pressure chronic ulcer of other part of right foot with necrosis of muscle (2) Acute exacerbation of chronic obstructive pulmonary disease (COPD) Status: Acute Supportive care per the primary team. Appears improved. (3) Acute kidney injury superimposed on chronic kidney disease Status: Acute Nephrology consulted and signed off. Appears to be back to baseline. Avoid nephrotoxins. Monitor renal function and dose-adjust antibiotics. (4) Acute on chronic diastolic heart failure Status: Acute Supportive care per the primary team. (5) Acute respiratory failure Status: Acute Likely secondary to CHF and COPD. CXR negative for PNA. No sepsis criteria. RIP, UATs, and MRSA screen negative. Resolved. Qualifiers: Respiratory failure complication: hypoxia Qualified Code(s): J96.01 - Acute respiratory failure with hypoxia (6) Acute on chronic anemia Status: Acute GI consulted and following. FOBT negative. Status post colonoscopy and EGD that were non-revealing. Further workup and management per the primary team. (7) Back pain Status: Acute Qualifiers: Back pain location: low back pain Chronicity: chronic Back pain laterality: bilateral Sciatica presence: without sciatica Qualified Code(s): M54.5 - Low back pain; G89.29 - Other chronic pain (8) Diabetes mellitus Status: Acute Strict glucose control. 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 Patient had hypertension and bradycardia overnight. Per nursing, patient may be discharged later if blood pressure is able to be controlled with his oral medications. The patient states overall he feels well and wants to leave. He denies any fevers, chills, rigors. Denies chest pain, jaundice of breath, and states he has a mild nonproductive cough. Denies nausea, vomiting, diarrhea, or constipation. Last vomiting was yesterday. Denies abdominal pain, urinary complaints, appetite changes. Denies any oral thrush or new skin lesions. Denies any pain in his back or extremities at this time. Infect Dis PN-Objective Data - Labs CBC & Chem 7: 09/22/18 05:18 09/22/18 05:18 Labs: Laboratory Results - last 24 hr 09/21/18 09/21/18 09/21/18 07:10 07:12 11:52 POC Glucose 45 L* 48 L* 103 H 09/21/18 09/22/18 09/22/18 16:02 07:13 11:50 POC Glucose 240 H 305 H 220 H 09/22/18 09/22/18 15:28 21:44 POC Glucose 389 H 388 H Cultures: Cultures 09/17/18 16:26 Blood Culture - Final Peripheral Venipuncture No growth. Final report. 09/19/18 17:30 Wound Culture - Final Right Fourth Toe Methicillin Resistant S.aureus 09/19/18 17:30 Wound Culture - Final Right Foot Methicillin Resistant S.aureus 09/19/18 17:30 Wound Culture - Final Right Great Toe Methicillin Resistant S.aureus Enterobacter cloacae complex 09/17/18 07:35 Sputum Culture - Final Sputum 09/17/18 14:45 Legionella Antigen - Final Urine,Clean Catch Streptococcus pneumoniae Antigen (M - Final Serology 12/16/18 12/14/18 12/14/18 Range/Units 20:50 04:15 04:15 Urine Color (Yellow) Urine Clarity (Clear) Urine pH (5.0-8.0) pH Units Ur Specific [place] (1.010-1.025) Urine Protein (Neg-Trace) mg/dL Urine Glucose (UA) (Normal) mg/dL Urine Ketones (Negative) mg/dL Urine Blood (Negative) Urine Nitrite (Negative) Urine Bilirubin (Negative) Urine Urobilinogen (Normal) mg/dL Ur Leukocyte Esterase (Negative) Urine Microscopic RBC (0-3) per hpf Urine Microscopic WBC (0-3) per hpf Ur Eosinophil Smear (None Seen) % Ur Squamous Epith Cells (None-Few) per lpf Amorphous Sediment (Few) Urine Bacteria (None-Few) per hpf Hyaline Casts (None-Few) per lpf Ur Culture Indicated? (NO) Urine Osmolality (300-1090) mOsm/kg Urine Creatinine 82 mg/dL Urine Sodium 46.7 mEq/L Ur Uric Acid 34 mg/dL Nasal Screen MRSA (PCR) (Negative) Stool Occult Bld Scrn (Negative) Stool Occult Blood Negative (Negative) Chlamy pneumoniae PCR (Not Detect) Adenovirus (PCR) (Not Detect) B. pertussis DNA (PCR) (Not Detect) B.parapertussis DNA PCR (Not Detect) Coronavirus OC43 (PCR) (Not Detect) Coronavirus HKU1 (PCR) (Not Detect) Coronavirus 229E (PCR) (Not Detect) Coronavirus NL63 (PCR) (Not Detect) Human Metapneumovir PCR (Not Detect) Influenza A (H1) PCR (Not Detect) Influ A (H1N1/09) PCR (Not Detect) Influenza A (H3) PCR (Not Detect) Influenza A Untype (PCR) (Not Detect) Influenza Type B (PCR) (Not Detect) Mycoplasma pneumon IgG (<=0.09) U/L Mycoplasma pneumon IgM (<=0.76) U/L M.pneumoniae DNA (PCR) (Not Detect) Parainfluenza 1 (PCR) (Not Detect) Parainfluenza 2 (PCR) (Not Detect) Parainfluenza 3 (PCR) (Not Detect) Parainfluenza 4 (PCR) (Not Detect) RSV (PCR) (Not Detect) Entero/Rhino (PCR) (Not Detect) 09/19/18 09/19/18 09/17/18 Range/Units 04:15 04:15 18:05 Urine Color Yellow (Yellow) Urine Clarity Clear (Clear) Urine pH 5.5 (5.0-8.0) pH Units Ur Specific [place] 1.016 (1.010-1.025) Urine Protein >=300 H (Neg-Trace) mg/dL Urine Glucose (UA) 250 H (Normal) mg/dL Urine Ketones Negative (Negative) mg/dL Urine Blood Large H (Negative) Urine Nitrite Negative (Negative) Urine Bilirubin Negative (Negative) Urine Urobilinogen Normal (Normal) mg/dL Ur Leukocyte Esterase Negative (Negative) Urine Microscopic RBC 30-50 H (0-3) per hpf Urine Microscopic WBC 0-3 (0-3) per hpf Ur Eosinophil Smear 0 (None Seen) % Ur Squamous Epith Cells Moderate H (None-Few) per lpf Amorphous Sediment (Few) Urine Bacteria None Seen (None-Few) per hpf Hyaline Casts None Seen (None-Few) per lpf Ur Culture Indicated? NO (NO) Urine Osmolality (300-1090) mOsm/kg Urine Creatinine mg/dL Urine Sodium mEq/L Ur Uric Acid mg/dL Nasal Screen MRSA (PCR) Negative (Negative) Stool Occult Bld Scrn (Negative) Stool Occult Blood (Negative) Chlamy pneumoniae PCR (Not Detect) Adenovirus (PCR) (Not Detect) B. pertussis DNA (PCR) (Not Detect) B.parapertussis DNA PCR (Not Detect) Coronavirus OC43 (PCR) (Not Detect) Coronavirus HKU1 (PCR) (Not Detect) Coronavirus 229E (PCR) (Not Detect) Coronavirus NL63 (PCR) (Not Detect) Human Metapneumovir PCR (Not Detect) Influenza A (H1) PCR (Not Detect) Influ A (H1N1/09) PCR (Not Detect) Influenza A (H3) PCR (Not Detect) Influenza A Untype (PCR) (Not Detect) Influenza Type B (PCR) (Not Detect) Mycoplasma pneumon IgG (<=0.09) U/L Mycoplasma pneumon IgM (<=0.76) U/L M.pneumoniae DNA (PCR) (Not Detect) Parainfluenza 1 (PCR) (Not Detect) Parainfluenza 2 (PCR) (Not Detect) Parainfluenza 3 (PCR) (Not Detect) Parainfluenza 4 (PCR) (Not Detect) RSV (PCR) (Not Detect) Entero/Rhino (PCR) (Not Detect) 09/17/18 09/17/18 09/17/18 Range/Units 16:26 14:45 12:19 Urine Color Yellow (Yellow) Urine Clarity Cloudy A (Clear) Urine pH 5.0 (5.0-8.0) pH Units Ur Specific [place] 1.023 (1.010-1.025) Urine Protein >=300 H (Neg-Trace) mg/dL Urine Glucose (UA) Normal (Normal) mg/dL Urine Ketones Negative (Negative) mg/dL Urine Blood Negative (Negative) Urine Nitrite Negative (Negative) Urine Bilirubin Negative (Negative) Urine Urobilinogen Normal (Normal) mg/dL Ur Leukocyte Esterase Negative (Negative) Urine Microscopic RBC 5-15 H (0-3) per hpf Urine Microscopic WBC 3-5 H (0-3) per hpf Ur Eosinophil Smear (None Seen) % Ur Squamous Epith Cells Many H (None-Few) per lpf Amorphous Sediment Few (Few) Urine Bacteria Many H (None-Few) per hpf Hyaline Casts Few (None-Few) per lpf Ur Culture Indicated? NO (NO) Urine Osmolality (300-1090) mOsm/kg Urine Creatinine mg/dL Urine Sodium mEq/L Ur Uric Acid mg/dL Nasal Screen MRSA (PCR) (Negative) Stool Occult Bld Scrn (Negative) Stool Occult Blood (Negative) Chlamy pneumoniae PCR Not Detected (Not Detect) Adenovirus (PCR) Not Detected (Not Detect) B. pertussis DNA (PCR) Not Detected (Not Detect) B.parapertussis DNA PCR Not Detected (Not Detect) Coronavirus OC43 (PCR) Not Detected (Not Detect) Coronavirus HKU1 (PCR) Not Detected (Not Detect) Coronavirus 229E (PCR) Not Detected (Not Detect) Coronavirus NL63 (PCR) Not Detected (Not Detect) Human Metapneumovir PCR Not Detected (Not Detect) Influenza A (H1) PCR Not Detected (Not Detect) Influ A (H1N1/09) PCR Not Detected (Not Detect) Influenza A (H3) PCR Not Detected (Not Detect) Influenza A Untype (PCR) Not Detected (Not Detect) Influenza Type B (PCR) Not Detected (Not Detect) Mycoplasma pneumon IgG 0.39 H (<=0.09) U/L Mycoplasma pneumon IgM 0.11 (<=0.76) U/L M.pneumoniae DNA (PCR) Not Detected (Not Detect) Parainfluenza 1 (PCR) Not Detected (Not Detect) Parainfluenza 2 (PCR) Not Detected (Not Detect) Parainfluenza 3 (PCR) Not Detected (Not Detect) Parainfluenza 4 (PCR) Not Detected (Not Detect) RSV (PCR) Not Detected (Not Detect) Entero/Rhino (PCR) Not Detected (Not Detect) 09/17/18 09/17/18 09/17/18 Range/Units 11:52 02:25 02:25 Urine Color (Yellow) Urine Clarity (Clear) Urine pH (5.0-8.0) pH Units Ur Specific [place] (1.010-1.025) Urine Protein (Neg-Trace) mg/dL Urine Glucose (UA) (Normal) mg/dL Urine Ketones (Negative) mg/dL Urine Blood (Negative) Urine Nitrite (Negative) Urine Bilirubin (Negative) Urine Urobilinogen (Normal) mg/dL Ur Leukocyte Esterase (Negative) Urine Microscopic RBC (0-3) per hpf Urine Microscopic WBC (0-3) per hpf Ur Eosinophil Smear (None Seen) % Ur Squamous Epith Cells (None-Few) per lpf Amorphous Sediment (Few) Urine Bacteria (None-Few) per hpf Hyaline Casts (None-Few) per lpf Ur Culture Indicated? (NO) Urine Osmolality 474 (300-1090) mOsm/kg Urine Creatinine mg/dL Urine Sodium 49.4 mEq/L Ur Uric Acid mg/dL Nasal Screen MRSA (PCR) (Negative) Stool Occult Bld Scrn Negative (Negative) Stool Occult Blood (Negative) Chlamy pneumoniae PCR (Not Detect) Adenovirus (PCR) (Not Detect) B. pertussis DNA (PCR) (Not Detect) B.parapertussis DNA PCR (Not Detect) Coronavirus OC43 (PCR) (Not Detect) Coronavirus HKU1 (PCR) (Not Detect) Coronavirus 229E (PCR) (Not Detect) Coronavirus NL63 (PCR) (Not Detect) Human Metapneumovir PCR (Not Detect) Influenza A (H1) PCR (Not Detect) Influ A (H1N1/09) PCR (Not Detect) Influenza A (H3) PCR (Not Detect) Influenza A Untype (PCR) (Not Detect) Influenza Type B (PCR) (Not Detect) Mycoplasma pneumon IgG (<=0.09) U/L Mycoplasma pneumon IgM (<=0.76) U/L M.pneumoniae DNA (PCR) (Not Detect) Parainfluenza 1 (PCR) (Not Detect) Parainfluenza 2 (PCR) (Not Detect) Parainfluenza 3 (PCR) (Not Detect) Parainfluenza 4 (PCR) (Not Detect) RSV (PCR) (Not Detect) Entero/Rhino (PCR) (Not Detect) Exam - Constitutional Vitals: Temp Pulse Resp BP Pulse Ox 97.9 F 68 18 148/78 95 09/23/18 07:03 09/23/18 07:03 09/23/18 07:03 09/23/18 07:37 09/23/18 07:03 General appearance: cooperative, no acute distress, obese - Head Head exam: Present: atraumatic, normal inspection, normocephalic - Eye Eye exam: Present: EOMI, normal appearance, PERRL Pupils: Present: normal accommodation - ENT ENT exam: Present: mucous membranes moist - Neck Neck exam: Present: normal inspection - Respiratory Respiratory exam: Present: wheezes (Expiratory wheezes throughout.). Absent: rales, respiratory distress, rhonchi, tachypnea - Cardiovascular Cardiovascular exam: Present: RRR, +S1, +S2 - GI/Abdominal GI/Abdominal exam: Present: distended (Obese), normal bowel sounds, soft. Absent: tenderness - Extremities Exam Extremities exam: Present: pedal edema (Trace bilateral lower extremities). Absent: normal inspection (Right foot dressing is clean, dry, and intact.), tenderness - Neurological Exam Neurological exam: Present: alert, oriented X3, no focal deficits - Psychiatric Psychiatric exam: Present: normal affect, normal mood - Skin Skin exam: Present: dry, intact, normal color, warm - VTE Documentation of Mechanical Device: Intermittent pneumatic compression device Consult Discharge Plan - Plan Instructions: Enalapril (By mouth), Doxycycline (By mouth), Prednisone (By mouth), Nicotine (Absorbed through the skin), Hydralazine (By mouth), Amlodipine (By mouth), Levofloxacin (By mouth), Fenofibrate (By mouth), Lidocaine Patch (On the skin), Budesonide/Formoterol (By breathing), Acute Respiratory Distress Syndrome (DC), Anemia (GEN) Referrals: Mark Coe MD [Primary Care Provider] - Ernesto Pace DPM [Partnered Physician] - 10/08/18 11:00 am Des Christy MD [Partnered Physician] - (had to send a web request the office should call patient at home with appointment date and time) Prescriptions: RX: hydrALAZINE [HydrALAZINE] 25 mg PO Q8HR 30 Days #90 tablet RX: amLODIPine [Norvasc] 10 mg PO DAILY 30 Days #60 tablet RX: Budesonide/Formoterol 80/4.5 [Symbicort 80/4.5] 1 puff IH BID 30 Days #1 [email or web address] RX: Doxycycline 100 mg PO Q12H 10 Days #20 capsule RX: Enalapril Maleate [Vasotec] 20 mg PO HS 30 Days #60 tablet RX: Fenofibrate [Tricor] 135 mg PO DAILY #30 tablet RX: levoFLOXacin [Levaquin] 750 mg PO Q48H 10 Days #5 tablet RX: Lidocaine Patch [Lidoderm 5% patch] 1 each TP DAILY #14 adh..patch RX: Nicotine Patch [Nicoderm] 21 mg TD DAILY #30 patch.td24 predniSONE [PredniSONE] 10 mg PO DAILY #7 tablet - Attending Attestation I examined this patient and my medical decision-making was reviewed with the Resident Physician. I agree with the documented findings, disposition and treatment plan as described except to the extent set forth below.
[2018-09-23] MEDS: Aspirin Enteric Coated 81 MG Tablet PO SCH (09:18)
[2018-09-23] MEDS: Cholecalciferol (D-3) 1,000 UNIT TABLET PO SCH (09:18)
[2018-09-23] MEDS: amLODIPine 5 MG TABLET PO SCH (09:18)
[2018-09-23] MEDS: Lactobacillus 1 EACH CAP.SPRINK PO SCH (09:18)
[2018-09-23] MEDS: Fenofibrate 54 MG TABLET PO SCH (09:19)
[2018-09-23] MEDS: Furosemide 40 MG TABLET PO SCH (09:19)
[2018-09-23] MEDS: Magnesium Oxide 400 MG TABLET PO SCH (09:19)
[2018-09-23] MEDS: Gabapentin 100 MG CAPSULE PO SCH (09:19)
[2018-09-23] MEDS: Vitamin B Complex/Vit C/Vit E 1 EACH TABLET PO SCH (09:20)
[2018-09-23] MEDS: Nicotine 21 MG PATCH.TD24 TD SCH (09:20)
[2018-09-23] MEDS: Insulin DETEMIR 100 UNIT/ML X5UNITS SQ SCH (09:26)
[2018-09-23] MEDS: Insulin LISPRO 300 UNITS/3 ML VIAL SQ SCH ×2 (09:26→12:40)
--- NOTE | 2018-09-23 10:11 | Discharge Summary ---
- NOTES TO OUTPATIENT PROVIDER Notes to Outpatient Provider: please separate magensium, iron by two hours from doxycycline. follow renal functions and electrolytes. to follow with GI as OP for biopsy results. close follow up with PODiatry adn infectious disease for lower extremity infection. follow finger sticks and adjust insulins. Orders not resulted at time of discharge: Pending orders 09/18/18 11:36 Sputum Culture [Culture,Sputum with Gram Stain] [RM] Stat 09/20/18 08:39 Surgical Pathology [PTH] Routine Date of Encounter: 09/23/18 Time of Encounter: 10:33 - Discharge Diagnosis (1) Acute on chronic diastolic heart failure Priority: Primary Status: Acute (2) Diabetic ulcer of right foot Priority: Secondary Status: Acute Qualifiers: Diabetic foot ulcer location: toe Diabetes mellitus type: type 2 Non- pressure ulcer stage: with necrosis of muscle Qualified Code(s): E11.621 - Type 2 diabetes mellitus with foot ulcer; L97.513 - Non-pressure chronic ulcer of other part of right foot with necrosis of muscle (3) Hospital-acquired pneumonia Priority: Secondary Status: Acute (4) Acute exacerbation of chronic obstructive pulmonary disease (COPD) Priority: Secondary Status: Acute (5) Acute respiratory failure Priority: Secondary Status: Acute Qualifiers: Respiratory failure complication: hypoxia Qualified Code(s): J96.01 - Acute respiratory failure with hypoxia (6) Acute on chronic anemia Priority: Secondary Status: Acute (7) Acute kidney injury superimposed on chronic kidney disease Priority: Secondary Status: Acute (8) Hyperkalemia Priority: Secondary Status: Resolved (9) Back pain Priority: Secondary Status: Acute Qualifiers: Back pain location: low back pain Chronicity: chronic Back pain laterality: bilateral Sciatica presence: without sciatica Qualified Code(s): M54.5 - Low back pain; G89.29 - Other chronic pain (10) Dyslipidemia Priority: Secondary Status: Chronic (11) Obesity (BMI 30.0-34.9) Priority: Secondary Status: Chronic (12) Tobacco abuse Priority: Secondary Status: Chronic (13) DVT prophylaxis Priority: Secondary Status: Acute Hospital course: Mr. Regalado is a 63 year old male with history of COPD not on home oxygen, CAD status post ME in 2017, heart failure preserved ejection fraction 60-65%, stage 3a and 3b CKD, GERD, arthritis, osteoporosis, dementia, and hepatitis presented to the emergency department from SNF with shortness of breath. As per patient his symptoms started 3 days prior to admission and has progressively worsened. Nursing staff called the nurse practitioner who works at the nursing facility and he was started on steroids without any improvement so it was decided to transfer him to [place] for further management. He reports that his shortness of breath occurs both at rest and on ambulation, he is currently not on any home oxygen however he has required increased oxygen use while at the care home for the past 3 days. In addition to shortness of breath he reports for out of 10 chest pain on deep breathing, there is no radiation and is associated with bilateral leg swelling and PND along with orthopnea. Shortness of breath is also accompanied by a productive cough with yellow sputum, he denies blood. He reports that sitting up and oxygen alleviates his symptoms however his symptoms are aggravated on ambulation and laying flat in the bed. He was recently admitted to [facility] and was discharged on 09/04 for unilateral weakness and hyperosmolar nonketotic state. While in the emergency department he was found to be hyperkalemic at 6.1, with increased respiratory rate, chest x-ray showed pulmonary edema and he was given 1 dose of Lasix along with Solu-Medrol and was endorsed for further management of acute on chronic hypoxic and hypercapnic respiratory failure. With BiPAP and IV Lasix, IV antibiotics and IV steroids along with nebulizers his respiratory status improved. Nephrology can was consulted and recommendations were followed. Creatinine remained stable throughout admission. JUDI inhibitor was resumed for PCP to follow BMP for renal functions and electrolytes. Renal ultrasound showed,Small amount of perinephric fluid anterior and inferior to each kidney. The kidneys are otherwise unremarkable in appearance. While in the emergency department he was found to have worsening anemia and was transfused 1 unit of PRBC. Anemia is most likely multifactorial and hemoglobin remained stable throughout admission >8. Gastroenterology was consulted and EGD on 09/20/18 with diffuse atrophic mucosa in the entire examined stomach status post biopsy and Colonoscopy on 09/20/18poor prep, to have capsule endoscopy as an outpatient.Annti parietal and anti-intrinsic factor antibodies were sent and results pending. He is to continue oral iron. B12 and folic acid were within normal limit. Continue by mouth PPI. FOBT was negative. He is to have frequent soft CBC. Nursing staff aware to make appointment with GI as outpatient for capsule endoscopy. He demonstrated back pain on admission. Lumbar x-ray did not show any acute abnormalities however it did show multilevel degenerative disc disease. He was started on lidocaine patch with improvement of his back pain. Lipid panel followed and showed improvement from previous admission. He is to continue with this lipid lowering medications. For PCP to follow lipid levels and adjust medications as per their discretion. IV steroids were transitioned to by mouth and he is to complete the taper. Continue home inhalers and nebulizers. Repeat chest x-ray showed improvement in pulmonary edema. Podiatry was consulted for right foot infection. He status post debridement by podiatry on 09/19. CRP 27, ESR of 80. ID was consulted and recommended him to continue with oral doxycycline and Levaquin for a total of 14 days. please separate magensium, iron by two hours from doxycycline. To have close follow-up with podiatry and infectious disease for right lower extremity ulcer. Hemoglobin A1c was found to be 10.4. He is to continue his long-acting insulin along with sliding scale as needed for PCP to adjust insulin as per their discretion based on glucose logs. He was counseled extensively on smoking cessation, diet, fluid restriction, nutrition, exercise and medication compliance he understands. Wound care as per podiatry Local wound care. Maxorb placed to right hallux, adaptic placed to all other ulcerations. Covered with 4 x 4 dry gauze and kerlex. Recommend tight glycemic control to promote wound healing. Discharge discussed with: patient, nurse, social work, case management, regulatory consultant Time spent discussing smoking cessation with patient: more than 10 minutes - Time Spent with Patient Total time spent providing and/or coordinating discharge services: Greater than 30 minutes (50) - Discharge Medications Prescriptions: hydrALAZINE [HydrALAZINE] 25 mg PO Q8HR 30 Days #90 tablet amLODIPine [Norvasc] 10 mg PO DAILY 30 Days #60 tablet Budesonide/Formoterol 80/4.5 [Symbicort 80/4.5] 1 puff IH BID 30 Days #1 hfa.aer.ad Doxycycline 100 mg PO Q12H 10 Days #20 capsule Enalapril Maleate [Vasotec] 20 mg PO HS 30 Days #60 tablet Fenofibrate [Tricor] 135 mg PO DAILY #30 tablet levoFLOXacin [Levaquin] 750 mg PO Q48H 10 Days #5 tablet Lidocaine Patch [Lidoderm 5% patch] 1 each TP DAILY #14 adh..patch Nicotine Patch [Nicoderm] 21 mg TD DAILY #30 patch.td24 predniSONE [PredniSONE] 10 mg PO DAILY #7 tablet Home Medications: Albuterol Sulfate [Ventolin Hfa] 2 puff IH Q6H PRN 08/20/18 [History] Atorvastatin [Lipitor] 40 mg PO HS 08/20/18 [History] Carvedilol [Coreg] 25 mg PO BID 08/20/18 [History] Cholecalciferol (Vitamin D3) [Vitamin D3] 50,000 unit PO MÁRQUEZ 08/20/18 [History] Citalopram [CeleXA] 20 mg PO DAILY 08/20/18 [History] Ferrous Sulfate 325 mg PO BID 08/20/18 [History] Fluticasone Propionate [Flovent Diskus] 1 puff IH BID 08/20/18 [History] Gabapentin [Neurontin] 200 mg PO TID 08/20/18 [History] Insulin LISPRO [HumaLOG] 0 - 12 units SQ QID PRN 08/20/18 [History] Lactobacillus [Culturelle] 1 cap PO BID 08/20/18 [History] LevETIRAcetam [Keppra] 750 mg PO Q12H 08/20/18 [History] Magnesium Oxide [Magnesium] 400 mg PO BID 08/20/18 [History] Pramipexole Di-HCl [Pramipexole Dihydrochloride] 0.125 mg PO HS 08/20/18 [History] Tiotropium [Spiriva] 2 puff IH DAILY 08/20/18 [History] Trazodone HCl 50 mg PO HS 08/20/18 [History] Vitamin B Complex [B Complex] 1 tab PO DAILY 08/20/18 [History] Albuterol Neb [Proventil Neb] 2.5 mg IH QID 09/18/18 [History] Aspirin Enteric Coated [Aspirin EC] 81 mg PO DAILY 09/18/18 [History] Docusate Sodium [Doc-Q-Lace] 100 mg PO HS PRN 09/18/18 [History] Furosemide [Lasix] 80 mg PO DAILY 09/18/18 [History] Guaifenesin [Mucinex] 600 mg PO Q12H 09/18/18 [History] Insulin Glargine [Lantus] 60 unit SQ BID 09/18/18 [History] Insulin LISPRO [HumaLOG] 6 units SQ TID 09/18/18 [History] Omeprazole Magnesium [Prilosec Otc] 20 mg PO DAILY 09/18/18 [History] Budesonide/Formoterol 80/4.5 [Symbicort 80/4.5] 1 puff IH BID 30 Days #1 hfa.aer.ad 09/23/18 [Rx] Doxycycline 100 mg PO Q12H 10 Days #20 capsule 09/23/18 [Rx] Enalapril Maleate [Vasotec] 20 mg PO HS 30 Days #60 tablet 09/23/18 [Rx] Fenofibrate [Tricor] 135 mg PO DAILY #30 tablet 09/23/18 [Rx] Lidocaine Patch [Lidoderm 5% patch] 1 each TP DAILY #14 adh..patch 09/23/18 [Rx] Nicotine Patch [Nicoderm] 21 mg TD DAILY #30 patch.td24 09/23/18 [Rx] amLODIPine [Norvasc] 10 mg PO DAILY 30 Days #60 tablet 09/23/18 [Rx] hydrALAZINE [HydrALAZINE] 25 mg PO Q8HR 30 Days #90 tablet 09/23/18 [Rx] levoFLOXacin [Levaquin] 750 mg PO Q48H 10 Days #5 tablet 09/23/18 [Rx] predniSONE [PredniSONE] 10 mg PO DAILY #7 tablet 09/23/18 [Rx] Allergies/Adverse Reactions: Allergy/AdvReac Type Severity Reaction Status Date / Time acetaminophen Allergy Hives Verified 09/19/17 12:11 [From Darvocet-N] ibuprofen Allergy Hives Verified 09/19/17 12:11 propoxyphene Allergy Hives Verified 09/19/17 12:11 [From Darvocet-N] tramadol [From Ultram] Allergy Hives Verified 09/19/17 12:11 Date of admission: 09/17/18 13:45 Primary care physician: Mark Coe MD Consults: 09/17/18 13:34 Consult to Case Management [CONS] Routine Comment: Consult to Nutrition [CONS] Routine Comment: Consulting Provider: NUTRITION Reason for Dietary Consult: PO Supplementation Consult to Physical Therapy [CONS] Routine Comment: Evaluate, develop and implement POC Reason for Consult: dispostion Does patient have active BEDREST order?: No Is patient medically & hemodynamically stable?: Yes Patient assessed for mobility or mobilized this visit?: Yes OT [Consult to Occupational Therapy] [CONS] Routine Comment: Evaluate, develop and implement POC Reason for Consult: disposition Does patient have active BEDREST order?: No Is patient medically & hemodynamically stable?: Yes Patient assessed for mobility or mobilized this visit?: Yes 09/17/18 14:54 Consult to Nephrology [CONS] Routine Consulting Provider: Kidney Keesha/ERIKA/BLUE/EVERT Reason for Consult: DANY Call Completed: No 09/17/18 16:15 Consult to Gastroenterology [CONS] Routine Consulting Provider: Gastroenterology Keesha Reason for Consult: acute anemia Call Completed: No 09/18/18 01:30 Consult to Wound Care [CONS] Routine Reason for Consult: right foot wounds Call Completed: No 09/18/18 16:49 Consult to Podiatry [CONS] Routine Consulting Provider: [facility] Reason for Consult: foot ulcers and wounds per wound nurse Call Completed: Yes 09/22/18 11:31 Consult to Infectious Diseases [CONS] Routine Consulting Provider: Infectious Disease Keesha Reason for Consult: MRSA right foot infection along with enterobacter cloacae on vancomycin and zosyn ( sensitive) podiatry on board Call Completed: No - Constitutional Vitals: Temp Pulse Resp BP Pulse Ox 97.9 F 68 18 148/78 95 09/23/18 07:03 09/23/18 07:03 09/23/18 07:03 09/23/18 07:37 09/23/18 07:03 Exam: General: Patient is alert, oriented, in moderate distress distress, obese, speaks in full sentences Head: atraumatic, normocephalic, Eye: normal appearance, PERRL, no scleral icterus, no conjunctival injection ENT: mucous membranes moist, normal external ear exam Neck: normal inspection, trachea midline, full ROM, no carotid bruits, Chest: normal inspection, symmetric chest rise Respiratory: respiratory rate WNL, crackles - improved in the posterior lung acharya, mild wheezing in the Anterior chest (improved) Cardiovascular:distant heart sounds secondary to body habitus Regular rate and rhythm. s1 and s2 No clicks, rubs, gallops, or murmors. Abdomen: Bowel sounds present normoactive x-4 quadrants. Abdomen is soft, nondistended. no Epigastric tenderness. No guarding or rebound. No organomegaly noted, obese, no CVA tenderness musculoskeletal: Spontaneously moving all extremities. trace pitting edema, no calf tenderness Skin: warm, dry, intact. Right lower extremity is wrapped with clean dressing- no signs of bleeding Neuro: Alert and oriented x4. Sensation light touch intact. No focal deficit Psych: Patient's affect is normal - Patient Status Disposition: Transfer SNF Condition: Fair Functional capacity at discharge: uses cane/walker Overall status at discharge: patient is progressing back to baseline - Discharge Instructions Follow Up With: Mark Coe MD [Primary Care Provider] - Ernesto Pace DPM [Partnered Physician] - 10/08/18 11:00 am - Diet and Activity Activity: as per physical therapy, increase activity as tolerated Diet: diabetic diet, low salt diet - VTE Documentation of Mechanical Device: Intermittent pneumatic compression device
[2018-09-23 11:27] VITALS: BP 175/76
--- NOTE | 2018-09-23 12:46 | Physician Discharge Referral ---
ExtendedCare Referral Info Provider in Charge after Transfer: PCP Institutional Level of Care: Skilled - Diagnosis (1) Acute on chronic diastolic heart failure Priority: Primary Status: Acute (2) Diabetic ulcer of right foot Priority: Secondary Status: Acute (3) Hospital-acquired pneumonia Priority: Secondary Status: Acute (4) Acute exacerbation of chronic obstructive pulmonary disease (COPD) Priority: Secondary Status: Acute (5) Acute respiratory failure Priority: Secondary Status: Acute (6) Acute on chronic anemia Priority: Secondary Status: Acute (7) Acute kidney injury superimposed on chronic kidney disease Priority: Secondary Status: Acute (8) Hyperkalemia Priority: Secondary Status: Resolved (9) Back pain Priority: Secondary Status: Acute (10) Dyslipidemia Priority: Secondary Status: Chronic (11) Obesity (BMI 30.0-34.9) Priority: Secondary Status: Chronic (12) Tobacco abuse Priority: Secondary Status: Chronic (13) DVT prophylaxis Priority: Secondary Status: Acute Prognosis: Fair Aware of Diagnosis: Patient - Transfer Medications Prescriptions: hydrALAZINE [HydrALAZINE] 25 mg PO Q8HR 30 Days #90 tablet amLODIPine [Norvasc] 10 mg PO DAILY 30 Days #60 tablet Budesonide/Formoterol 80/4.5 [Symbicort 80/4.5] 1 puff IH BID 30 Days #1 hfa.aer.ad Doxycycline 100 mg PO Q12H 10 Days #20 capsule Enalapril Maleate [Vasotec] 20 mg PO HS 30 Days #60 tablet Fenofibrate [Tricor] 135 mg PO DAILY #30 tablet levoFLOXacin [Levaquin] 750 mg PO Q48H 10 Days #5 tablet Lidocaine Patch [Lidoderm 5% patch] 1 each TP DAILY #14 adh..patch Nicotine Patch [Nicoderm] 21 mg TD DAILY #30 patch.td24 predniSONE [PredniSONE] 10 mg PO DAILY #7 tablet Home Medications: Albuterol Sulfate [Ventolin Hfa] 2 puff IH Q6H PRN 08/20/18 [History] Atorvastatin [Lipitor] 40 mg PO HS 08/20/18 [History] Carvedilol [Coreg] 25 mg PO BID 08/20/18 [History] Cholecalciferol (Vitamin D3) [Vitamin D3] 50,000 unit PO MÁRQUEZ 08/20/18 [History] Citalopram [CeleXA] 20 mg PO DAILY 08/20/18 [History] Ferrous Sulfate 325 mg PO BID 08/20/18 [History] Fluticasone Propionate [Flovent Diskus] 1 puff IH BID 08/20/18 [History] Gabapentin [Neurontin] 200 mg PO TID 08/20/18 [History] Insulin LISPRO [HumaLOG] 0 - 12 units SQ QID PRN 08/20/18 [History] Lactobacillus [Culturelle] 1 cap PO BID 08/20/18 [History] LevETIRAcetam [Keppra] 750 mg PO Q12H 08/20/18 [History] Magnesium Oxide [Magnesium] 400 mg PO BID 08/20/18 [History] Pramipexole Di-HCl [Pramipexole Dihydrochloride] 0.125 mg PO HS 08/20/18 [History] Tiotropium [Spiriva] 2 puff IH DAILY 08/20/18 [History] Trazodone HCl 50 mg PO HS 08/20/18 [History] Vitamin B Complex [B Complex] 1 tab PO DAILY 08/20/18 [History] Albuterol Neb [Proventil Neb] 2.5 mg IH QID 09/18/18 [History] Aspirin Enteric Coated [Aspirin EC] 81 mg PO DAILY 09/18/18 [History] Docusate Sodium [Doc-Q-Lace] 100 mg PO HS PRN 09/18/18 [History] Furosemide [Lasix] 80 mg PO DAILY 09/18/18 [History] Guaifenesin [Mucinex] 600 mg PO Q12H 09/18/18 [History] Insulin Glargine [Lantus] 60 unit SQ BID 09/18/18 [History] Insulin LISPRO [HumaLOG] 6 units SQ TID 09/18/18 [History] Omeprazole Magnesium [Prilosec Otc] 20 mg PO DAILY 09/18/18 [History] Budesonide/Formoterol 80/4.5 [Symbicort 80/4.5] 1 puff IH BID 30 Days #1 hfa.aer.ad 09/23/18 [Rx] Doxycycline 100 mg PO Q12H 10 Days #20 capsule 09/23/18 [Rx] Enalapril Maleate [Vasotec] 20 mg PO HS 30 Days #60 tablet 09/23/18 [Rx] Fenofibrate [Tricor] 135 mg PO DAILY #30 tablet 09/23/18 [Rx] Lidocaine Patch [Lidoderm 5% patch] 1 each TP DAILY #14 adh..patch 09/23/18 [Rx] Nicotine Patch [Nicoderm] 21 mg TD DAILY #30 patch.td24 09/23/18 [Rx] amLODIPine [Norvasc] 10 mg PO DAILY 30 Days #60 tablet 09/23/18 [Rx] hydrALAZINE [HydrALAZINE] 25 mg PO Q8HR 30 Days #90 tablet 09/23/18 [Rx] levoFLOXacin [Levaquin] 750 mg PO Q48H 10 Days #5 tablet 09/23/18 [Rx] predniSONE [PredniSONE] 10 mg PO DAILY #7 tablet 09/23/18 [Rx] Allergies/Adverse Reactions: Allergy/AdvReac Type Severity Reaction Status Date / Time acetaminophen Allergy Hives Verified 09/19/17 12:11 [From Darvocet-N] ibuprofen Allergy Hives Verified 09/19/17 12:11 propoxyphene Allergy Hives Verified 09/19/17 12:11 [From Darvocet-N] tramadol [From Ultram] Allergy Hives Verified 09/19/17 12:11 - Respiratory Orders Oxygen / L per min (2L as needed) Smoking Cessation: Smoking cessation has been advised. For more information, call the [place] Tobacco Quit Line at 7-046-XIYJ-NOW. - Lab Orders Lab Orders: Other (include drug levels w/frequency) (bmp for renal function and electrolytes) - Advance Directives Code Status: Full Code - Mobility Orders Ambulate - Rehabiliation Orders Rehab Potential: Good Rehab Orders: ROM Exercises, Evaluation for Physical Therapy, Evaluation for Occupational Therapy - Treatments Skin tear care topically daily PRN per policy (Maxorb placed to right hallux, adaptic placed to all other ulcerations. Covered with 4 x 4 dry gauze and kerlex.) - Diet Orders Renal (diabetic), Cardiac CERTIFICATION: I certify that the transfer of the above named patient to an Extended Care Facility is necessary for the continuing treatment of the diagnosis listed. The above information is true and accurate reflection of patient's current condition. Confidential - Redisclosure prohibited without a patient's written consent.
--- NOTE | 2018-09-23 17:59 | Electrocardiograph Report ---
[address] [address] Test Date: 2018-09-23 Pat Name: Nikita Regalado Department: 111 Room: 2NE27 Gender: M Pattern Stamper: RAW : 1955 Requested By: Eddie Singer Order Number: [id number] Reading MD: Robin Lucas Measurements Intervals Cameron Rate: 56 P: 43 OR: 169 QRS: -5 QRSD: 100 T: 23 QT: 429 QTc: 422 Interpretive Statements SINUS BRADYCARDIA Electronically Signed On 09-23-2018 17:57:09 EST by Robin Lucas
[2018-09-24] MEDS ORDERED: levoFLOXacin 750 MG TABLET PO SCH (07:45)
[2018-09-26] MEDS ORDERED: predniSONE 20 MG TABLET PO SCH (09:00)
[2018-09-29] MEDS ORDERED: predniSONE 10 MG TABLET PO SCH (09:00)
[2018-10-02] MEDS ORDERED: predniSONE 5 MG TABLET PO SCH (09:00)
== END 2018-09-23 15:16 | DRG 951 ==
LOC: EMEROOARM 10:06 → SUATTDRO 13:45 → 2NENU 13:45
PROVIDERS: ADMIT Internal Medicine; ATTEND Internal Medicine
PROC: ENDOEBX (2018-09-20 08:00)